=== PATIENT | female | born 1965 | race Caucasian/White ===

== ENCOUNTER 2016-11-27 12:07 | Inpatient (IN) | payer OTHER ==
[~2016-11-27] VITALS: Ht 170.2 cm; Wt 61.0 kg
[2016-11-27] VITALS (27 sets, daily range): BP systolic 101–189; BP diastolic 65–100; PULSE 68–100; TEMP 37.1–37.3; O2SAT 95–99; Ht 170.2 cm; Wt 61.0 kg
[~2016-11-27 12:07] MED LIST: ACET-1256 PO; ASPEC81 PO; LSN5 PO; VRPSR180 PO
[2016-11-27] MEDS ORDERED: MULT-506 PO (15:25)
[2016-11-27] MEDS ORDERED: DEXTROSE 50% 50 ML SYR IV PRN (15:30)
[2016-11-27] MEDS ORDERED: GLUCOSE 10 TABS/TUBE PO PRN (15:30)
[2016-11-27] MEDS ORDERED: GLUCAGON FOR INJ 1 MG VIAL SQ PRN (15:30)
[2016-11-27] MEDS ORDERED: GLUCOSE 40% GEL 15 GM TUBE PO PRN (15:30)
[2016-11-27] MEDS ORDERED: ACETAMINOPHEN 325 MG TAB PO PRN (15:30)
[2016-11-27] MEDS ORDERED: NiCARDipine IV 25 MG in SODIUM CHLORIDE 0.9% 250ML 240 ML IV PRN (15:30)
[2016-11-27] MEDS ORDERED: LORAZEPAM 0.5 MG TAB PO PRN (15:30)
[2016-11-27] MEDS ORDERED: ONDANSETRON INJ 2 MG/ML 2 ML VIAL IV PRN (15:30)
--- NOTE | 2016-11-27 15:52 | DIAGNOSTIC IMAGING REPORT ---
SINGLE VIEW CHEST CLINICAL HISTORY: Hypertension. FINDINGS: An AP, portable, upright chest radiograph is compared to study dated 06/16/2014. The examination is degraded by portable technique, apical lordotic positioning, and patient rotation. The heart is top normal for projection and there is atherosclerotic calcification of the thoracic aorta. Emphysema and chronic interstitial thickening is similar to previous. No airspace consolidation, large pleural effusion, or pneumothorax is seen. There are healed right-sided rib fractures. IMPRESSION: Emphysema with no acute cardiopulmonary abnormality. Electronically signed by: Armin Sylvester M.D. 11/27/2016 3:50 PM Dictated Date/Time: 11/27/2016 3:49 PM
[2016-11-27 16:04] LABS: BASO % 0.2 %; BASO ABS # 0.03 K/uL (0-0.2); COMPLETE YES; EOS % 0.1 %; HEMATOCRIT 41.9 % (37-47); IG% 0.2 %; LYMPH % 14.9 %; LYMPH ABS # 2.03 K/uL (1.2-3.4); MEAN CELL VOLUME 91.5 fL (80-100); MEAN CORPUSCULAR HEMOGLOBIN 32.3 pg (25-34); MEAN CORPUSCULAR HGB CONC 35.3 g/dl (32-36); MEAN PLATELET VOLUME 9.6 fL (7.4-10.4); MONO % 6.2 %; NEUT % 78.4 %; PLATELET COUNT 403 K/uL (130-400); RED BLOOD COUNT 4.58 M/uL (4.2-5.4); WHITE BLOOD COUNT 13.65 K/uL (4.8-10.8)
--- NOTE | 2016-11-27 16:04 | History and Physical ---
History & Physical Date & Time of Service: Nov 27, 2016 at 16:00 Chief Complaint: Hypertension Emergency Primary Care Physician: No Doctor, Assigned History of Present Illness Source: patient, spouse 51 y/o F who was transferred here from [place] for malignant HTN requiring a nicardipine drip. Pt states she has been ill over the last week with epigastric pain, n/v. She has not been able to keep anything down. She states she has been taking her HTN medication, however she is not certain if she was keeping that down or not. "I didn't really pay attention." Her pain is epigastric and had been better s/p IVF and medications at [place], however was starting to return during our discussion. Nausea is stable. Pt states she has not been ill like this prior. is present and states that at no time was pt confused, with garbled speech, or inability to move extremities. Pt denies also. Pt was given several doses of labetalol and hydralazine at [place], but her BP was unable to be managed with these medications. She was then started on a nicardipine drip. Nursing reports that pt's drip finished and during the short interval that no medication was being given, her BP started to increase rapidly. Pt denies fever, SOB, chest pain, c/d, LE pain or swelling. ROS as noted above, otherwise neg. Past Medical/Surgical History Medical Problems: (1) Atherosclerosis Nos Status: Chronic (2) Hypertension Nos Status: Chronic (3) Multiple Sclerosis Status: Chronic Uncertain MS dx: pt states she was told this by a neurologist, but recently changed insurance and is awaiting a second opinion. Family History Family history was reviewed; no changes noted. Social History Smoking Status: Never Smoker Alcohol Use: occasionally (once a month) Drug Use: marijuana Marital Status: Occupational Status: employed Immunizations History of Influenza Vaccine: Unknown History of Tetanus Vaccine?: Unknown History of Pneumococcal: Unknown History of Hepatitis B Vaccine: Unknown Allergies Coded Allergies: Iodinated Contrast Media (Verified Allergy, Severe, Unknown rxn, 06/16/14) Doxycycline (Verified Allergy, Unknown, rash, 06/16/14) Latex1 -Allergic Contact Dermititis (Verified Allergy, Unknown, RASH, 11/27) Meperidine (Verified Allergy, Unknown, HIVES, VOMITING, 06/16/14) Prochlorperazine (Verified Allergy, Unknown, ., 06/16/14) Home Medications Scheduled Acetaminophen (Tylenol), 1,000 MG PO PRN Multivitamin (Multivitamin), 1 TAB PO DAILY Verapamil HCl (Verapamil HCl ER), 180 MG PO QAM Physical Exam Vital Signs Date Time Temp Pulse Resp B/P Pulse Ox O2 Delivery O2 Flow Rate FiO2 11/27/16 14:38 37.1 90 98 165/98 99 Room Air General Appearance: WD/WN, + mild distress (appears uncomfortable) Head: normocephalic, atraumatic Respiratory/Chest: normal breath sounds, no respiratory distress Cardiovascular: regular rate, rhythm, no edema Abdomen/GI: soft, + tenderness (epigastric) Extremities/Musculoskelatal: no calf tenderness, no pedal edema Neurologic/Psych: alert, oriented x 3 Skin: normal color, warm/dry Diagnostics Laboratory Results Results Past 24 Hours Test 11/27/16 15:53 Range/Units Microbiology Results 11/27/16 MRSA DNA Surveillance Screen, Received Pending Diagnostic Radiology CXR: emphysema Impression Assessment and Plan 51 y/o F who was transferred from [place] on 11/27 for malignant HTN requiring nicardipine drip. Malignant HTN: Uncertain etiology, possibly related to missing regular meds with GI illness Labs reported as WNL at OSH t/c catecholamine derived etiologies [employer] managing nicardipine drip N/V/epigastric pain: Uncertain etiology Acute GE vs pancreatitis vs marijuana withdrawal syndrome CT AP neg Lactate and other labs WNL Other: Full code Lovenox for DVT proph AHA diet Level of Care Critical Care Advanced Directives Existing Living Will: No Existing Power of Supervisor Sulfuric Acid Plant: No VTE Prophylaxis VTE Risk Assessment Done? Y/N: Yes Risk Level: Low
[2016-11-27 16:13] LABS: INR 0.9 (0.9-1.1)
--- NOTE | 2016-11-27 16:15 | Critical Care Consultation ---
Critical Care Consultation Date of Consultation: Nov 27, 2016. Attending Physician: Khang Cross MD, PhD Reason for Consultation: Malignant hypertension History of Present Illness Patient is a pleasant 51-year-old female who presents in transfer from [facility] emergency department for malignant hypertension. History from prior records indicate that she's had 7 days of nausea vomiting and epigastric pain, unable to keep fluids down, pain 10 out of 10 with emesis and 5 out of 10 during the rest of the time. She denies diarrhea melena or hematemesis. She is hypertensive at baseline taking 180 mg of extended release amlodipine. She may not have been able to keep her amlodipine down with the vomiting. She occasionally smokes marijuana denies tobacco use, occasional alcohol use none the last 7 days, has a reported history of multiple sclerosis she was under the care of a neurologist recently changed care, she does not believe that she does carry the diagnosis of multiple sclerosis in the emergency department her blood pressure was noted to be elevated documentation supports to 33/119. She was given multiple doses of labetalol, a dose of hydralazine, and then started on a nicardipine drip after consultation with myself. Her blood pressures have remained around 160 systolic while on the 3 mg of nicardipine. During my history she denies any chest pain shortness of breath, mild epigastric discomfort worse with vomiting, no swelling, no diaphoresis. Outside records a comprehensive metabolic panel was obtained abnormalities included glucose of 123 BUN mildly elevated at 21 rest of the values were otherwise negative, lactic acid 2.3, lipase normal, complete blood counts: Unremarkable with the exception of a platelet level of 383, slightly outer range with their high being 380. Urinalysis: 2+ blood 4-6 RBCs per high-power field CT report of a CT abdomen and pelvis without contrast revealed no acute process , colonic diverticulosis without evidence of diverticulitis. EKG from the outside facility demonstrates a normal sinus rhythm rate of 77 normal axis mildly prolonged QTC at 456 , , compared to EKG dated 06/16/2014, QTC on this EKG was 469. Prior medical [facility] records reveal an echo obtained 06/17/2014: Normal left ventricular systolic function normal wall thickness. Past Medical/Surgical History please see above Family History Cancer Diabetes mellitus Heart disease Hypertension Lung disease Social History Smoking Status: Current Some Day Smoker Smokeless Tobacco Use: No Alcohol Use: socially Drug Use: marijuana Marital Status: Housing Status: lives with family Occupation Status: employed Allergies Coded Allergies: Iodinated Contrast Media (Verified Allergy, Severe, Unknown rxn, 06/16/14) Doxycycline (Verified Allergy, Unknown, rash, 06/16/14) Latex1 -Allergic Contact Dermititis (Verified Allergy, Unknown, RASH, 11/27) Meperidine (Verified Allergy, Unknown, HIVES, VOMITING, 06/16/14) Prochlorperazine (Verified Allergy, Unknown, ., 06/16/14) [place] (Verified Allergy, Unknown, HIVES, 11/27/16) Tomato (Verified Allergy, Unknown, HIVES, 11/27/16) Uncoded Allergies: [place] Beans (Allergy, Unknown, HIVES, 11/27/16) Home Medications Scheduled Acetaminophen (Tylenol), 1,000 MG PO PRN Multivitamin (Multivitamin), 1 TAB PO DAILY Verapamil HCl (Verapamil HCl ER), 180 MG PO QAM Current Inpatient Medications Amlodipine 180 mg sustained release daily Review of Systems A 10 point review of systems has been obtained and is otherwise negative Constitutional: No chills, No fever, No sweats Eyes: No eye pain, No worsening of vision ENT: No unusual epistaxis Respiratory: No cough, No sputum, No wheezing Cardiovascular: No PND, No chest pain, No edema, No orthopnea Abdomen: + nausea, + vomiting, No GI bleeding, No constipation, No diarrhea, No pain Musculoskeletal: No joint pain Genitourinary - Female: No dysuria, No urinary urgency Neurologic: No balance problems, No memory loss, No numbness/tingling, No paralysis, No problem reported, No vertigo, No weakness Endocrine: No excessive thirst, No excessive urination, No fatigue, No problem reported Integumentary: No bleeding, No color change, No itch, No new/changing skin lesions, No problem reported, No rash Physical Exam Date Time Temp Pulse Resp B/P Pulse Ox O2 Delivery O2 Flow Rate FiO2 11/27/16 14:38 37.1 90 98 165/98 99 Room Air General Appearance: well-appearing, uncomfortable Head: normocephalic, atraumatic Eyes: PERRLA, no discharge Neck: normal range of motion, no tenderness, trachea midline Respiratory: breath sounds normal, clear to auscultation, clear to percussion, no respiratory distress, accessory muscle use Cardiovasular: regular rate/rhythm, normal S1S2, no M/G/R, no murmur, no gallop , no rub, no JVD, normal peripheral pulses Abdomen: normal bowel sounds, no rebound, no masses, no guarding, no organomegaly, epigastric TTP Upper Extremities: no edema Lower Extremities: no edema Neuro: alert, oriented x 3, normal motor exam, normal sensation Psychiatric: normal affect Laboratory Results Last 24 Hours Test 11/27/16 15:16 Last 24 Hours Test 11/27/16 15:53 White Blood Count 13.65 K/uL Red Blood Count 4.58 M/uL Hemoglobin 14.8 g/dL Hematocrit 41.9 % Mean Corpuscular Volume 91.5 fL Mean Corpuscular Hemoglobin 32.3 pg Mean Corpuscular Hemoglobin Concent 35.3 g/dl Platelet Count 403 K/uL Mean Platelet Volume 9.6 fL Neutrophils (%) (Auto) 78.4 % Lymphocytes (%) (Auto) 14.9 % Monocytes (%) (Auto) 6.2 % Eosinophils (%) (Auto) 0.1 % Basophils (%) (Auto) 0.2 % Neutrophils # (Auto) 10.71 K/uL Lymphocytes # (Auto) 2.03 K/uL Monocytes # (Auto) 0.84 K/uL Eosinophils # (Auto) 0.01 K/uL Basophils # (Auto) 0.03 K/uL RDW Standard Deviation 40.9 fL RDW Coefficient of Variation 12.1 % Immature Granulocyte % (Auto) 0.2 % Immature Granulocyte # (Auto) 0.03 K/uL Prothrombin Time 10.0 SECONDS Prothromb Time International Ratio 0.9 Activated Partial Thromboplast Time 25.0 SECONDS Partial Thromboplastin Ratio 1.0 Sodium Level 134 mmol/L Potassium Level 3.2 mmol/L Chloride Level 98 mmol/L Carbon Dioxide Level 28 mmol/L Anion Gap 8.0 mmol/L Blood Urea Nitrogen 11 mg/dl Creatinine 0.63 mg/dl Est Creatinine Clear Calc Drug Dose 102.7 ml/min Estimated GFR () 121.2 Estimated GFR (Non- 104.6 BUN/Creatinine Ratio 17.6 Random Glucose 118 mg/dl Lactic Acid Level 1.5 mmol/L Calcium Level 8.8 mg/dl Phosphorus Level 2.9 mg/dl Magnesium Level 1.7 mg/dl Total Bilirubin 0.3 mg/dl Direct Bilirubin < 0.1 mg/dl Aspartate Amino Transf (AST/SGOT) 13 U/L Alanine Aminotransferase (ALT/SGPT) 20 U/L Alkaline Phosphatase 66 U/L Troponin I 0.105 ng/ml Total Protein 7.9 gm/dl Albumin 4.0 gm/dl Globulin 3.9 gm/dl Albumin/Globulin Ratio 1.0 Lipase 150 U/L Assessment & Plan (1) Elevated troponin I level (2) Hypokalemia (3) Prolonged QT interval (4) Malignant essential hypertension Reason Critically Ill: Hypertensive emergency, elevated troponin PLAN: Neuro:Percocet as needed for abdominal pain Resp:tolerating room air CV:Hypertensive crisis - nicardipine gtt - formal echo - EKG non-ischemic, suspect trops from myocardial strain Fluids/Renal: Tolerating diet ID:monitor fever course GI/Nutrition:clears as tolerated Heme:Lovenox prophylaxis Endocrine: check A1c I have personally spent 45 minutes of critical care time in the direct management of this patient. This is a life/limb threatening event. This includes time spent evaluating patient, direct bedside care, chart review, placing orders, interpretation of diagnostic studies, discussion with consultants, patient, and family members, as well as other required patient management activities. This time is exclusive of all separately billable procedures, and teaching time and separate from and in addition to any other critical care service time.
[2016-11-27 16:28] LABS: ALT/SGPT 20 U/L (12-78); AST/SGOT 13 U/L (15-37); BLOOD UREA NITROGEN 11 mg/dl (7-18); BUN/CREATININE RATIO 17.6 (10-20); CALCIUM 8.8 mg/dl (8.5-10.1); CARBON DIOXIDE 28 mmol/L (21-32); CHLORIDE 98 mmol/L (98-107); CREATININE 0.63 mg/dl (0.60-1.20); GLUCOSE 118 mg/dl (70-99); MAGNESIUM 1.7 mg/dl (1.8-2.4); POTASSIUM 3.2 mmol/L (3.5-5.1); SODIUM 134 mmol/L (136-145)
[2016-11-27] MEDS: INSULIN ASPART 100 UNITS/ML 3 ML PEN SC SCH ×2 (16:30→20:39)
[2016-11-27 16:34] LABS: ALKALINE PHOSPHATASE 66 U/L (45-117); PHOSPHORUS 2.9 mg/dl (2.5-4.9)
[2016-11-27] MEDS ORDERED: NURSING VERBAL MED ORDER ONE (19:15)
[2016-11-27] MEDS ORDERED: POTASSIUM CHLORIDE 20 MEQ TABCR PO ONE (19:15)
[2016-11-27] MEDS: MAGNESIUM SULFATE 1GM / D5W 1 GM in PREMIXED IN D5W 100 ML IV SCH ×2 (19:40→20:39)
[2016-11-27] MEDS: ENOXAPARIN 40 MG/0.4 ML SYR SQ SCH (20:39)
[2016-11-28] VITALS (28 sets, daily range): BP systolic 115–178; BP diastolic 64–105; PULSE 61–96; TEMP 36.8–37.3; O2SAT 94–99
[2016-11-28] MEDS ORDERED: ALUMINUM/MAGNESIUM SUSP 30 ML UDC ONE (01:33)
[2016-11-28] MEDS ORDERED: NURSING VERBAL MED ORDER ONE (01:45)
[2016-11-28] MEDS: INSULIN ASPART 100 UNITS/ML 3 ML PEN SC SCH ×2 (06:45→11:53)
[2016-11-28 07:45] LABS: BASO % 0.2 %; BASO ABS # 0.03 K/uL (0-0.2); COMPLETE YES; EOS % 0.6 %; HEMATOCRIT 39.3 % (37-47); IG% 0.2 %; LYMPH % 20.8 %; LYMPH ABS # 2.56 K/uL (1.2-3.4); MEAN CELL VOLUME 92.5 fL (80-100); MEAN CORPUSCULAR HEMOGLOBIN 31.8 pg (25-34); MEAN CORPUSCULAR HGB CONC 34.4 g/dl (32-36); MEAN PLATELET VOLUME 9.6 fL (7.4-10.4); MONO % 7.5 %; NEUT % 70.7 %; PLATELET COUNT 409 K/uL (130-400); RED BLOOD COUNT 4.25 M/uL (4.2-5.4); WHITE BLOOD COUNT 12.31 K/uL (4.8-10.8)
[2016-11-28 08:11] LABS: ESTIMATED AVERAGE GLUCOSE 111 mg/dl; HA1C FLAG Normal (Normal)
[2016-11-28 08:15] LABS: CREATININE 0.84 mg/dl (0.60-1.20); MAGNESIUM 2.2 mg/dl (1.8-2.4); POTASSIUM 3.6 mmol/L (3.5-5.1)
[2016-11-28] MEDS: VERAPAMIL HCL 180 MG TABCR PO SCH (08:18)
[2016-11-28 08:24] LABS: PHOSPHORUS 2.2 mg/dl (2.5-4.9)
[2016-11-28 08:36] LABS: CALCIUM 9.4 mg/dl (8.5-10.1)
--- NOTE | 2016-11-28 09:20 | Critical Care Progress Note ---
Critical Care Progress Note Date of Service Nov 28, 2016. Attending Subjective Blood pressures down. No chest pain reported. No respiratory distress. No GI/ complaints. Appears comfortable. Taking PO and ambulating. Current SOFA Score SOFA Score Response (Comments) Value Platelets (x10) < 150 1 Cara Coma Score 13 - 14 1 Level of Hypotension No Hypotension 0 Total 2 Assessment & Plan (1) Elevated troponin I level Will track the curve. Cardiology input in progress. (2) Hypokalemia (3) Prolonged QT interval (4) Malignant essential hypertension Doing well with B/P's. Rx acceptable. Can be treated in the telemetry unit now. Consults & Procedures Consultants: Mario Procedures: none Data Medications: Current Inpatient Medications Medications (Trade) Dose Ordered Sig/Yeimy Route Start Time Stop Time Status Last Admin Dose Admin Enoxaparin Sodium (Lovenox Inj) 40 mg Q24H SQ 11/27/16 21:00 12/27/16 20:59 11/27/16 20:39 40 MG Acetaminophen (Tylenol Tab) 650 mg Q4H PRN PO 11/27/16 15:30 12/27/16 15:29 Lorazepam (Ativan Tab) 0.5 mg Q4H PRN PO 11/27/16 15:30 12/27/16 15:29 Insulin Aspart (novoLOG ASPART) SLIDING SCALE If C... ACHS SC 11/27/16 16:00 12/27/16 15:59 Glucose (Glucose 40% Gel) 15-30 GRAMS 15 GRAMS... UD PRN PO 11/27/16 15:30 12/27/16 15:29 Glucose (Glucose Chew Tab) 4-8 Tablets 4 Tabl... UD PRN PO 11/27/16 15:30 12/27/16 15:29 Dextrose (Dextrose 50% 50ML Syringe) 25-50ML OF 50% DW IV FOR... UD PRN IV 11/27/16 15:30 12/27/16 15:29 Glucagon 1 mg 1 mg UD PRN SQ 11/27/16 15:30 12/27/16 15:29 Nicardipine HCl/ Sodium Chloride (Cardene Iv/Nss 250ml) 250 ml @ 0 mls/hr Q0M PRN IV 11/27/16 15:30 12/27/16 15:29 11/27/16 16:30 30 MLS/HR Verapamil HCl (Calan-Sr Tab) 180 mg QAM PO 11/28/16 09:00 12/28/16 08:59 11/28/16 08:18 180 MG I & O: 24-Hour Column 11/28/16 08:00 Intake Total 1903 ml Output Total 2650 ml Balance -747 ml Vital Signs: Date Time Temp Pulse Resp B/P Pulse Ox O2 Delivery O2 Flow Rate FiO2 11/28/16 06:31 79 13 115/66 97 11/28/16 06:00 84 17 125/82 97 11/28/16 05:30 76 12 141/87 98 11/28/16 05:01 85 17 166/86 98 11/28/16 04:30 81 19 129/79 97 11/28/16 04:00 78 18 118/73 96 11/28/16 04:00 37.1 11/28/16 04:00 96 Room Air 11/28/16 03:30 76 17 131/72 96 11/28/16 03:00 84 19 123/64 96 11/28/16 02:36 96 16 122/75 97 11/28/16 02:00 88 18 159/83 95 11/28/16 01:30 85 18 174/87 95 11/28/16 01:30 85 18 174/87 95 11/28/16 01:15 88 16 98 11/28/16 01:12 95 15 160/104 99 11/28/16 01:00 82 19 174/94 96 11/28/16 00:45 95 16 98 11/28/16 00:43 84 14 177/105 95 11/28/16 00:30 86 16 178/103 94 11/28/16 00:30 86 16 178/103 94 11/28/16 00:01 37.1 11/28/16 00:00 88 17 171/101 97 11/27/16 23:59 96 Room Air 11/27/16 23:44 77 18 163/78 97 11/27/16 23:31 72 16 189/97 98 11/27/16 23:00 68 20 122/81 95 11/27/16 22:30 71 12 116/69 98 11/27/16 22:01 73 16 124/74 97 11/27/16 21:30 81 17 118/73 97 11/27/16 21:00 77 13 117/79 97 11/27/16 20:30 73 15 117/73 97 11/27/16 20:00 98 Room Air 11/27/16 20:00 79 15 129/74 97 11/27/16 20:00 37.3 11/27/16 19:51 75 15 125/78 96 11/27/16 19:49 77 16 114/79 97 11/27/16 19:30 77 19 114/66 96 11/27/16 19:15 82 12 111/72 96 11/27/16 19:00 80 14 116/71 97 11/27/16 18:15 95 15 114/76 98 11/27/16 18:00 96 15 101/86 97 11/27/16 17:45 100 22 124/70 97 11/27/16 17:43 98 18 115/65 97 11/27/16 17:30 90 18 164/100 97 11/27/16 17:15 87 17 165/88 96 11/27/16 17:00 90 20 149/85 95 11/27/16 16:45 87 18 153/82 96 11/27/16 16:30 97 18 154/95 98 11/27/16 16:15 98 16 163/85 98 11/27/16 16:04 91 19 161/89 97 11/27/16 14:38 37.1 90 98 165/98 99 Room Air Laboratory Results: Last 24 Hours Test 11/27/16 15:53 11/27/16 20:32 11/27/16 22:55 11/28/16 01:34 White Blood Count 13.65 K/uL Red Blood Count 4.58 M/uL Hemoglobin 14.8 g/dL Hematocrit 41.9 % Mean Corpuscular Volume 91.5 fL Mean Corpuscular Hemoglobin 32.3 pg Mean Corpuscular Hemoglobin Concent 35.3 g/dl Platelet Count 403 K/uL Mean Platelet Volume 9.6 fL Neutrophils (%) (Auto) 78.4 % Lymphocytes (%) (Auto) 14.9 % Monocytes (%) (Auto) 6.2 % Eosinophils (%) (Auto) 0.1 % Basophils (%) (Auto) 0.2 % Neutrophils # (Auto) 10.71 K/uL Lymphocytes # (Auto) 2.03 K/uL Monocytes # (Auto) 0.84 K/uL Eosinophils # (Auto) 0.01 K/uL Basophils # (Auto) 0.03 K/uL RDW Standard Deviation 40.9 fL RDW Coefficient of Variation 12.1 % Immature Granulocyte % (Auto) 0.2 % Immature Granulocyte # (Auto) 0.03 K/uL Prothrombin Time 10.0 SECONDS Prothromb Time International Ratio 0.9 Activated Partial Thromboplast Time 25.0 SECONDS Partial Thromboplastin Ratio 1.0 Sodium Level 134 mmol/L Potassium Level 3.2 mmol/L Chloride Level 98 mmol/L Carbon Dioxide Level 28 mmol/L Anion Gap 8.0 mmol/L Blood Urea Nitrogen 11 mg/dl Creatinine 0.63 mg/dl Est Creatinine Clear Calc Drug Dose 102.7 ml/min Estimated GFR () 121.2 Estimated GFR (Non- 104.6 BUN/Creatinine Ratio 17.6 Random Glucose 118 mg/dl Lactic Acid Level 1.5 mmol/L Calcium Level 8.8 mg/dl Phosphorus Level 2.9 mg/dl Magnesium Level 1.7 mg/dl Total Bilirubin 0.3 mg/dl Direct Bilirubin < 0.1 mg/dl Aspartate Amino Transf (AST/SGOT) 13 U/L Alanine Aminotransferase (ALT/SGPT) 20 U/L Alkaline Phosphatase 66 U/L Troponin I 0.105 ng/ml 0.097 ng/ml 0.095 ng/ml Total Protein 7.9 gm/dl Albumin 4.0 gm/dl Globulin 3.9 gm/dl Albumin/Globulin Ratio 1.0 Lipase 150 U/L Bedside Glucose 125 mg/dl Test 11/28/16 06:28 11/28/16 07:35 11/28/16 08:54 Bedside Glucose 124 mg/dl White Blood Count 12.31 K/uL Red Blood Count 4.25 M/uL Hemoglobin 13.5 g/dL Hematocrit 39.3 % Mean Corpuscular Volume 92.5 fL Mean Corpuscular Hemoglobin 31.8 pg Mean Corpuscular Hemoglobin Concent 34.4 g/dl Platelet Count 409 K/uL Mean Platelet Volume 9.6 fL Neutrophils (%) (Auto) 70.7 % Lymphocytes (%) (Auto) 20.8 % Monocytes (%) (Auto) 7.5 % Eosinophils (%) (Auto) 0.6 % Basophils (%) (Auto) 0.2 % Neutrophils # (Auto) 8.71 K/uL Lymphocytes # (Auto) 2.56 K/uL Monocytes # (Auto) 0.92 K/uL Eosinophils # (Auto) 0.07 K/uL Basophils # (Auto) 0.03 K/uL RDW Standard Deviation 41.9 fL RDW Coefficient of Variation 12.3 % Immature Granulocyte % (Auto) 0.2 % Immature Granulocyte # (Auto) 0.02 K/uL Sodium Level 132 mmol/L Potassium Level 3.6 mmol/L Chloride Level 95 mmol/L Carbon Dioxide Level 27 mmol/L Anion Gap 10.0 mmol/L Blood Urea Nitrogen 10 mg/dl Creatinine 0.84 mg/dl Est Creatinine Clear Calc Drug Dose 75.4 ml/min Estimated GFR () 93.9 Estimated GFR (Non- 81.0 BUN/Creatinine Ratio 12.0 Random Glucose 136 mg/dl Estimated Average Glucose 111 mg/dl Hemoglobin A1c 5.5 % Calcium Level 9.4 mg/dl Phosphorus Level 2.2 mg/dl Magnesium Level 2.2 mg/dl Troponin I 0.094 ng/ml
--- NOTE | 2016-11-28 09:56 | ECHOCARDIOGRAM REPORT ---
*NOTICE TO RECEIVING [employer] This information is strictly Confidential and protected under [place] law. [place] law prohibits you from making any further disclosure of this information unless further disclosure is expressly permitted by the written consent of the person to whom it pertains or is authorized by law. A general authorization for the release of medical or other information is not sufficient for this purpose. Hospital accepts no responsibility if the information is made available to any other person, INCLUDING THE PATIENT. Interpretation Summary * Name: ONEL MONTOYA Study Date: 11/28/2016 06:32 AM BP: 115/66 mmHg * [id number] HR: 79 * : 1965 (M/d/yyyy) Gender: Female Height: 67 in * Age: 51 yrs Ethnicity: CA Weight: 134 lb * Ordering Physician: Philip Deleon * Referring Physician: No Doctor, Assigned * Performed By: Kailey Higuera RDCS * * Reason For Study: MALIGNANT HTN * BSA: 1.7 m2 * History: MALIGNANT HTN * -- Conclusions -- * 1. Normal LV size. Mild concentric LVH. * 2. Normal LV systolic function. LVEF 60-65%. No regional wall motion abnormalities. * 3. Normal RV size and function. * 4. No significant valvular pathology. * 5. Normal estimated CVP. * 6. Compared with prior study on 06/17/2014: No significant changes. Procedure Details * A complete two-dimensional transthoracic echocardiogram was performed (2D, M-mode, Doppler and color flow Doppler). Left Ventricle * The left ventricle is grossly normal size. * There is mild concentric left ventricular hypertrophy. * Ejection Fraction = 60-65%. * No regional wall motion abnormalities noted. Right Ventricle * The right ventricle is grossly normal size. * The right ventricular systolic function is normal as assessed by tricuspid annular plane systolic excursion (TAPSE) (normal >1.5 cm). Atria * The left atrial size is normal. * Right atrial size is normal. * No ASD detected; PFO is not assessed. Mitral Valve * The mitral valve is grossly normal. * There is no mitral valve stenosis. * Significant mitral regurgitation is absent. Tricuspid Valve * The tricuspid valve is not well visualized, but is grossly normal. * There is no tricuspid stenosis. * Significant tricuspid regurgitation is absent. Aortic Valve * The aortic valve opens well. * The aortic valve is trileaflet. * No hemodynamically significant valvular aortic stenosis. * There is no significant aortic regurgitation. Pulmonic Valve * The pulmonary valve is not well seen, but the Doppler examination is normal without significant regurgitation or stenosis. Great Vessels * The aortic root and proximal ascending aorta are normal sized. * No Doppler or imaging evidence of an aortic coarctation. Pericardium/Pleural * There is no pericardial effusion. Great Vessels * Normal inferior vena cava size and collapsability with sniff indicates a normal right atrial pressure of 3 mmHg MMode 2D Measurements and Calculations IVSd 1.2 cm IVSs 1.6 cm LVIDd 3.6 cm LVIDs 2.2 cm LVPWd 1.4 cm LVPWs 1.8 cm IVS/LVPW 0.84 FS 39.6 % EDV(Teich) 54.6 ml ESV(Teich) 15.7 ml EF(Teich) 71.2 % EDV(cubed) 46.8 ml ESV(cubed) 10.3 ml EF(cubed) 78.0 % % IVS thick 36.2 % % LVPW thick 28.6 % LV mass(C)d 153.5 grams LV mass(C)dI 90.0 grams/m\S\2 LV mass(C)s 131.5 grams LV mass(C)sI 77.1 grams/m\S\2 SV(Teich) 38.8 ml SI(Teich) 22.8 ml/m\S\2 SV(cubed) 36.5 ml SI(cubed) 21.4 ml/m\S\2 Ao root diam 2.9 cm Ao root area 6.5 cm\S\2 LA dimension 2.5 cm LA/Ao 0.88 LVAd ap4 21.4 cm\S\2 LVLd ap4 7.0 cm EDV(MOD-sp4) 54.3 ml EDV(sp4-el) 55.7 ml LVAs ap4 11.8 cm\S\2 LVLs ap4 5.9 cm ESV(MOD-sp4) 23.2 ml ESV(sp4-el) 20.1 ml EF(MOD-sp4) 57.3 % EF(sp4-el) 63.9 % LVAd ap2 25.3 cm\S\2 LVLd ap2 8.6 cm EDV(MOD-sp2) 65.2 ml EDV(sp2-el) 63.0 ml LVAs ap2 12.6 cm\S\2 LVLs ap2 7.0 cm ESV(MOD-sp2) 23.9 ml ESV(sp2-el) 19.3 ml EF(MOD-sp2) 63.4 % EF(sp2-el) 69.3 % LVLd %diff 18.8 % EDV(MOD-bp) 65.6 ml LVLs %diff 15.1 % ESV(MOD-bp) 25.4 ml EF(MOD-bp) 61.3 % SV(MOD-sp4) 31.1 ml SI(MOD-sp4) 18.3 ml/m\S\2 SV(MOD-sp2) 41.3 ml SI(MOD-sp2) 24.2 ml/m\S\2 SV(MOD-bp) 40.3 ml SI(MOD-bp) 23.6 ml/m\S\2 SV(sp4-el) 35.6 ml SI(sp4-el) 20.9 ml/m\S\2 SV(sp2-el) 43.7 ml SI(sp2-el) 25.6 ml/m\S\2 Doppler Measurements and Calculations MV E max ian 76.0 cm/sec MV A max ian 74.9 cm/sec MV E/A 1.0 MV dec time 0.32 sec Ao V2 max 176.2 cm/sec Ao max PG 12.4 mmHg Ao max PG (full) 6.3 mmHg LV V1 max PG 6.1 mmHg LV V1 max 123.9 cm/sec
--- NOTE | 2016-11-28 10:03 | Cardiology Consultation ---
Cardiology Consultation Date of Consultation: Nov 28, 2016. Requesting Physician: Dr. Cross Reason for Consultation: Epigastric discomfort, abnormal cardiac enzymes, hypertension Pt evaluation today including: conversation w/ patient, physical exam, lab review, review of studies, review of inpatient medication list History of Present Illness This is a very pleasant 51-year-old woman with a history of coronary artery disease identified at catheterization in June 2014. At that time she presented with chest tightness and throat choking, her cardiac enzymes were elevated to a troponin of just over 1 and she went to the catheterization lab where she was identified as having 30% mid right coronary artery stenosis as well as 30% proximal LAD stenosis, her left degree ejection fraction was normal. She has risk factors of a family history (with a sister who had what she reports as a myocardial infarction) as well as hypertension. Her visit this time is prompted by one week of nausea and vomiting associated with epigastric discomfort. She then presented with severe hypertension to [facility] with a blood pressure of 233 systolic. She was placed on a cart appearing drip and transferred here. Her cardiac enzymes have been somewhat abnormal in a decreasing pattern with a peak here of 0.105, which was her first, the most recent 0.095 early this morning. At the time of my evaluation she was feeling well, her blood pressure has been controlled and she is no longer having nausea and vomiting. She denies any exertional symptoms in the interim, she does not have difficulty with shortness of breath with exertion or anginal symptoms. Past Medical/Surgical History (1) Atherosclerosis Nos (2) Hypertension Nos (3) Multiple Sclerosis Family History Cancer Diabetes mellitus Heart disease Hypertension Lung disease Social History Smoking Status: Current Some Day Smoker History of Alcohol Use: Yes (on occasion ) Review of Systems Constitutional: No fever, No weakness, No weight loss Respiratory: No cough, No dyspnea on exertion, No shortness of breath, No wheezing Cardiac: + see HPI, No PND, No chest pain, No edema, No orthopnea, No palpitations Abdomen: + nausea, + pain (epigastric), + see HPI, + vomiting, No GI bleeding, No diarrhea Female : No problem reported Neurologic: No balance problems, No numbness/tingling, No paralysis, No weakness Heme: No abnormal bleeding/bruising, No clotting problems Endo: No fatigue Skin: No problem reported All Other Systems: Reviewed and Negative Allergies Coded Allergies: Iodinated Contrast Media (Verified Allergy, Severe, Unknown rxn, 06/16/14) Doxycycline (Verified Allergy, Unknown, rash, 06/16/14) Latex1 -Allergic Contact Dermititis (Verified Allergy, Unknown, RASH, 11/27) Meperidine (Verified Allergy, Unknown, HIVES, VOMITING, 06/16/14) Prochlorperazine (Verified Allergy, Unknown, ., 06/16/14) [place] (Verified Allergy, Unknown, HIVES, 11/27/16) Tomato (Verified Allergy, Unknown, HIVES, 11/27/16) Uncoded Allergies: Hernandez Beans (Allergy, Unknown, HIVES, 11/27/16) Medications Current Inpatient Medications Medications (Trade) Dose Ordered Sig/Yeimy Route Start Time Stop Time Status Last Admin Dose Admin Enoxaparin Sodium (Lovenox Inj) 40 mg Q24H SQ 11/27/16 21:00 12/27/16 20:59 11/27/16 20:39 40 MG Acetaminophen (Tylenol Tab) 650 mg Q4H PRN PO 11/27/16 15:30 12/27/16 15:29 Lorazepam (Ativan Tab) 0.5 mg Q4H PRN PO 11/27/16 15:30 12/27/16 15:29 Insulin Aspart (novoLOG ASPART) SLIDING SCALE If C... ACHS SC 11/27/16 16:00 12/27/16 15:59 Glucose (Glucose 40% Gel) 15-30 GRAMS 15 GRAMS... UD PRN PO 11/27/16 15:30 12/27/16 15:29 Glucose (Glucose Chew Tab) 4-8 Tablets 4 Tabl... UD PRN PO 11/27/16 15:30 12/27/16 15:29 Dextrose (Dextrose 50% 50ML Syringe) 25-50ML OF 50% DW IV FOR... UD PRN IV 11/27/16 15:30 12/27/16 15:29 Glucagon 1 mg 1 mg UD PRN SQ 11/27/16 15:30 12/27/16 15:29 Nicardipine HCl/ Sodium Chloride (Cardene Iv/Nss 250ml) 250 ml @ 0 mls/hr Q0M PRN IV 11/27/16 15:30 12/27/16 15:29 11/27/16 16:30 30 MLS/HR Verapamil HCl (Calan-Sr Tab) 180 mg QAM PO 11/28/16 09:00 12/28/16 08:59 11/28/16 08:18 180 MG Physical Exam Vital Signs Past 12 Hours Date Time Temp Pulse Resp B/P Pulse Ox O2 Delivery O2 Flow Rate FiO2 11/28/16 06:31 79 13 115/66 97 11/28/16 06:00 84 17 125/82 97 11/28/16 05:30 76 12 141/87 98 11/28/16 05:01 85 17 166/86 98 11/28/16 04:30 81 19 129/79 97 11/28/16 04:00 78 18 118/73 96 11/28/16 04:00 37.1 11/28/16 04:00 96 Room Air 11/28/16 03:30 76 17 131/72 96 11/28/16 03:00 84 19 123/64 96 11/28/16 02:36 96 16 122/75 97 11/28/16 02:00 88 18 159/83 95 11/28/16 01:30 85 18 174/87 95 11/28/16 01:30 85 18 174/87 95 11/28/16 01:15 88 16 98 11/28/16 01:12 95 15 160/104 99 11/28/16 01:00 82 19 174/94 96 11/28/16 00:45 95 16 98 11/28/16 00:43 84 14 177/105 95 11/28/16 00:30 86 16 178/103 94 11/28/16 00:30 86 16 178/103 94 11/28/16 00:01 37.1 11/28/16 00:00 88 17 171/101 97 11/27/16 23:59 96 Room Air 11/27/16 23:44 77 18 163/78 97 11/27/16 23:31 72 16 189/97 98 11/27/16 23:00 68 20 122/81 95 11/27/16 22:30 71 12 116/69 98 11/27/16 22:01 73 16 124/74 97 Constitutional: General Apperance: heathly-appearing Level of Distress: NAD Psychiatric: Mental Status: active & alert Head: normocephalic Eyes: EOM: EOMI ENMT: normal ENT inspection, hearing grossly normal Neck: supple, no masses Lungs: Respiratory effort: no dyspnea, good air movement Auscultation: breath sounds normal, no wheezing Cardiovascular: Heart Auscultation: RRR, no murmurs, no rubs, no gallops Peripheral Pulses: Bruits: none appreciated Abdomen: Bowel Sounds: normal Inspection & Palpation: soft, no tenderness, guarding & rebound, no masses Musculoskeletal: normal strength (5/5 throughout) Extremities: no edema Neurologic: Cranial Nerves: grossly intact Sensation: grossly intact Data Laboratory Results: Last 24 Hours Test 11/27/16 15:53 11/27/16 20:32 11/27/16 22:55 11/28/16 01:34 White Blood Count 13.65 K/uL Red Blood Count 4.58 M/uL Hemoglobin 14.8 g/dL Hematocrit 41.9 % Mean Corpuscular Volume 91.5 fL Mean Corpuscular Hemoglobin 32.3 pg Mean Corpuscular Hemoglobin Concent 35.3 g/dl Platelet Count 403 K/uL Mean Platelet Volume 9.6 fL Neutrophils (%) (Auto) 78.4 % Lymphocytes (%) (Auto) 14.9 % Monocytes (%) (Auto) 6.2 % Eosinophils (%) (Auto) 0.1 % Basophils (%) (Auto) 0.2 % Neutrophils # (Auto) 10.71 K/uL Lymphocytes # (Auto) 2.03 K/uL Monocytes # (Auto) 0.84 K/uL Eosinophils # (Auto) 0.01 K/uL Basophils # (Auto) 0.03 K/uL RDW Standard Deviation 40.9 fL RDW Coefficient of Variation 12.1 % Immature Granulocyte % (Auto) 0.2 % Immature Granulocyte # (Auto) 0.03 K/uL Prothrombin Time 10.0 SECONDS Prothromb Time International Ratio 0.9 Activated Partial Thromboplast Time 25.0 SECONDS Partial Thromboplastin Ratio 1.0 Sodium Level 134 mmol/L Potassium Level 3.2 mmol/L Chloride Level 98 mmol/L Carbon Dioxide Level 28 mmol/L Anion Gap 8.0 mmol/L Blood Urea Nitrogen 11 mg/dl Creatinine 0.63 mg/dl Est Creatinine Clear Calc Drug Dose 102.7 ml/min Estimated GFR () 121.2 Estimated GFR (Non- 104.6 BUN/Creatinine Ratio 17.6 Random Glucose 118 mg/dl Lactic Acid Level 1.5 mmol/L Calcium Level 8.8 mg/dl Phosphorus Level 2.9 mg/dl Magnesium Level 1.7 mg/dl Total Bilirubin 0.3 mg/dl Direct Bilirubin < 0.1 mg/dl Aspartate Amino Transf (AST/SGOT) 13 U/L Alanine Aminotransferase (ALT/SGPT) 20 U/L Alkaline Phosphatase 66 U/L Troponin I 0.105 ng/ml 0.097 ng/ml 0.095 ng/ml Total Protein 7.9 gm/dl Albumin 4.0 gm/dl Globulin 3.9 gm/dl Albumin/Globulin Ratio 1.0 Lipase 150 U/L Bedside Glucose 125 mg/dl Test 11/28/16 06:28 11/28/16 07:35 11/28/16 08:54 11/28/16 09:20 Bedside Glucose 124 mg/dl White Blood Count 12.31 K/uL Red Blood Count 4.25 M/uL Hemoglobin 13.5 g/dL Hematocrit 39.3 % Mean Corpuscular Volume 92.5 fL Mean Corpuscular Hemoglobin 31.8 pg Mean Corpuscular Hemoglobin Concent 34.4 g/dl Platelet Count 409 K/uL Mean Platelet Volume 9.6 fL Neutrophils (%) (Auto) 70.7 % Lymphocytes (%) (Auto) 20.8 % Monocytes (%) (Auto) 7.5 % Eosinophils (%) (Auto) 0.6 % Basophils (%) (Auto) 0.2 % Neutrophils # (Auto) 8.71 K/uL Lymphocytes # (Auto) 2.56 K/uL Monocytes # (Auto) 0.92 K/uL Eosinophils # (Auto) 0.07 K/uL Basophils # (Auto) 0.03 K/uL RDW Standard Deviation 41.9 fL RDW Coefficient of Variation 12.3 % Immature Granulocyte % (Auto) 0.2 % Immature Granulocyte # (Auto) 0.02 K/uL Sodium Level 132 mmol/L Potassium Level 3.6 mmol/L Chloride Level 95 mmol/L Carbon Dioxide Level 27 mmol/L Anion Gap 10.0 mmol/L Blood Urea Nitrogen 10 mg/dl Creatinine 0.84 mg/dl Est Creatinine Clear Calc Drug Dose 75.4 ml/min Estimated GFR () 93.9 Estimated GFR (Non- 81.0 BUN/Creatinine Ratio 12.0 Random Glucose 136 mg/dl Estimated Average Glucose 111 mg/dl Hemoglobin A1c 5.5 % Calcium Level 9.4 mg/dl Phosphorus Level 2.2 mg/dl Magnesium Level 2.2 mg/dl Troponin I 0.094 ng/ml Imaging: An echocardiogram today shows normal left ventricular function with no wall motion abnormalities. EKG: On arrival here she was in sinus rhythm with precordial T waves which are somewhat abnormal and a prolonged QT interval, possible inferior myocardial infarction of indeterminate age. A repeat electrocardiogram shows some improvement in her T waves with no change in the inferior Q waves. Telemetry reviewed: Sinus rhythm, no significant arrhythmia Assessment & Plan #1. Hypertension emergency: She had severe hypertension on arrival [place] and that has responded to medical therapy. Currently her blood pressure is well controlled. Knowledge she has not had this before. #2. Epigastric discomfort, nausea and vomiting: This is likely gastrointestinal , however the epigastric discomfort in association with borderline cardiac enzymes is worrisome. That has resolved but it is possible this is cardiac in origin. #3. Coronary disease: She has known coronary artery disease based on catheterization 2-1/2 years ago. She has not had testing since, the degree of progression is unknown, at that time she had noncritical disease. She does not have exertional symptoms. #4. Abnormal cardiac enzymes: Cardiac enzymes are in the descending pattern and are lower in magnitude than on her presentation June 2014. Her symptoms however started one week ago, this could all be due to demand ischemia from her severe hypertension or from an ischemic event a week ago. At this point I think we need to investigate, I'm reluctant to perform catheterization at this time. I think a stress test would be reasonable. Her blood pressure is controlled currently and it has been long enough since onset of her symptoms that should be safe to do. Thank you for allowing me to participate in her care.
--- NOTE | 2016-11-28 11:01 | Progress Note ---
Subjective Date of Service: Nov 28, 2016. Subjective Pt evaluation today including: conversation w/ patient, physical exam, chart review, lab review, review of studies, conversation w/ telesales consultant, review of inpatient medication list Report doing much better, blood pressure is controlled, home medicine of verapamil has started, Has been off drip off Cardene Report has been nausea vomiting but now resolved, reported significant possible heartburn, Was having the same episode of nausea vomiting, and not able to take blood pressure medicine needed hospital admission in [place] 2 years ago Review of Systems Constitutional: No chills, No fatigue, No fever, No problem reported, No sweats , No weakness, No weight loss Eyes: No diplopia, No discharge, No eye pain, No redness, No worsening of vision ENT: No dental problems, No hearing loss, No nasal symptoms, No sore throat, No tinnitus, No trouble swallowing, No unusual epistaxis Respiratory: No cough, No dyspnea at rest, No dyspnea on exertion, No hemoptysis, No shortness of breath, No sputum, No wheezing Cardiac: No PND, No chest pain, No claudication, No edema, No orthopnea, No palpitations Abdomen: + problem reported (heartburn), No constipation, No diarrhea, No nausea, No pain, No vomiting Musculoskeletal: No calf pain, No joint pain, No muscle pain, No swelling Female : No abnormal vaginal bleeding, No dysuria, No hematuria, No incontinence, No urinary frequency, No vaginal discharge Neurologic: No balance problems, No memory loss, No numbness/tingling, No paralysis, No vertigo, No weakness Psychiatric: No anhedonism, No anxiety, No depression symptoms, No insomnia, No substance abuse Heme: No abnormal bleeding/bruising, No clotting problems, No night sweats, No swollen lymph nodes Endo: No excessive thirst, No excessive urination, No fatigue Skin: No bleeding, No color change, No itch, No new/changing skin lesions, No rash Objective Vital Signs Date Time Temp Pulse Resp B/P Pulse Ox O2 Delivery O2 Flow Rate FiO2 11/28/16 06:31 79 13 115/66 97 11/28/16 06:00 84 17 125/82 97 11/28/16 05:30 76 12 141/87 98 11/28/16 05:01 85 17 166/86 98 11/28/16 04:30 81 19 129/79 97 11/28/16 04:00 78 18 118/73 96 11/28/16 04:00 37.1 11/28/16 04:00 96 Room Air 11/28/16 03:30 76 17 131/72 96 11/28/16 03:00 84 19 123/64 96 11/28/16 02:36 96 16 122/75 97 11/28/16 02:00 88 18 159/83 95 11/28/16 01:30 85 18 174/87 95 11/28/16 01:30 85 18 174/87 95 11/28/16 01:15 88 16 98 11/28/16 01:12 95 15 160/104 99 11/28/16 01:00 82 19 174/94 96 11/28/16 00:45 95 16 98 11/28/16 00:43 84 14 177/105 95 11/28/16 00:30 86 16 178/103 94 11/28/16 00:30 86 16 178/103 94 11/28/16 00:01 37.1 11/28/16 00:00 88 17 171/101 97 11/27/16 23:59 96 Room Air 11/27/16 23:44 77 18 163/78 97 11/27/16 23:31 72 16 189/97 98 11/27/16 23:00 68 20 122/81 95 11/27/16 22:30 71 12 116/69 98 11/27/16 22:01 73 16 124/74 97 11/27/16 21:30 81 17 118/73 97 11/27/16 21:00 77 13 117/79 97 11/27/16 20:30 73 15 117/73 97 11/27/16 20:00 98 Room Air 11/27/16 20:00 79 15 129/74 97 11/27/16 20:00 37.3 11/27/16 19:51 75 15 125/78 96 11/27/16 19:49 77 16 114/79 97 11/27/16 19:30 77 19 114/66 96 11/27/16 19:15 82 12 111/72 96 11/27/16 19:00 80 14 116/71 97 11/27/16 18:15 95 15 114/76 98 11/27/16 18:00 96 15 101/86 97 11/27/16 17:45 100 22 124/70 97 11/27/16 17:43 98 18 115/65 97 11/27/16 17:30 90 18 164/100 97 11/27/16 17:15 87 17 165/88 96 11/27/16 17:00 90 20 149/85 95 11/27/16 16:45 87 18 153/82 96 11/27/16 16:30 97 18 154/95 98 11/27/16 16:15 98 16 163/85 98 11/27/16 16:04 91 19 161/89 97 11/27/16 14:38 37.1 90 98 165/98 99 Room Air Physical Exam General Appearance: WD/WN, no apparent distress, + thin Eyes: normal inspection, PERRL, EOMI, sclerae normal ENT: normal ENT inspection, hearing grossly normal, pharynx normal Neck: supple, no adenopathy, thyroid normal, no JVD, no carotid bruits, trachea midline Respiratory/Chest: chest non-tender, lungs clear, normal breath sounds, no respiratory distress, no accessory muscle use Cardiovascular: regular rate, rhythm, no edema, no gallop, no JVD, no murmur Abdomen: normal bowel sounds, non tender, soft, no organomegaly, no pulsatile mass Extremities: normal range of motion, non-tender, normal inspection, no pedal edema, no calf tenderness, normal capillary refill, pelvis stable 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: weathercaster II-XII nml as tested, no motor/sensory deficits, alert, normal mood/affect, oriented x 3 Skin: normal color, warm/dry, no rash Lymphatic: no adenopathy Laboratory Results Last 24 Hours Test 11/27/16 15:53 11/27/16 20:32 11/27/16 22:55 11/28/16 01:34 White Blood Count 13.65 K/uL Red Blood Count 4.58 M/uL Hemoglobin 14.8 g/dL Hematocrit 41.9 % Mean Corpuscular Volume 91.5 fL Mean Corpuscular Hemoglobin 32.3 pg Mean Corpuscular Hemoglobin Concent 35.3 g/dl Platelet Count 403 K/uL Mean Platelet Volume 9.6 fL Neutrophils (%) (Auto) 78.4 % Lymphocytes (%) (Auto) 14.9 % Monocytes (%) (Auto) 6.2 % Eosinophils (%) (Auto) 0.1 % Basophils (%) (Auto) 0.2 % Neutrophils # (Auto) 10.71 K/uL Lymphocytes # (Auto) 2.03 K/uL Monocytes # (Auto) 0.84 K/uL Eosinophils # (Auto) 0.01 K/uL Basophils # (Auto) 0.03 K/uL RDW Standard Deviation 40.9 fL RDW Coefficient of Variation 12.1 % Immature Granulocyte % (Auto) 0.2 % Immature Granulocyte # (Auto) 0.03 K/uL Prothrombin Time 10.0 SECONDS Prothromb Time International Ratio 0.9 Activated Partial Thromboplast Time 25.0 SECONDS Partial Thromboplastin Ratio 1.0 Sodium Level 134 mmol/L Potassium Level 3.2 mmol/L Chloride Level 98 mmol/L Carbon Dioxide Level 28 mmol/L Anion Gap 8.0 mmol/L Blood Urea Nitrogen 11 mg/dl Creatinine 0.63 mg/dl Est Creatinine Clear Calc Drug Dose 102.7 ml/min Estimated GFR () 121.2 Estimated GFR (Non- 104.6 BUN/Creatinine Ratio 17.6 Random Glucose 118 mg/dl Lactic Acid Level 1.5 mmol/L Calcium Level 8.8 mg/dl Phosphorus Level 2.9 mg/dl Magnesium Level 1.7 mg/dl Total Bilirubin 0.3 mg/dl Direct Bilirubin < 0.1 mg/dl Aspartate Amino Transf (AST/SGOT) 13 U/L Alanine Aminotransferase (ALT/SGPT) 20 U/L Alkaline Phosphatase 66 U/L Troponin I 0.105 ng/ml 0.097 ng/ml 0.095 ng/ml Total Protein 7.9 gm/dl Albumin 4.0 gm/dl Globulin 3.9 gm/dl Albumin/Globulin Ratio 1.0 Lipase 150 U/L Bedside Glucose 125 mg/dl Test 11/28/16 06:28 11/28/16 07:35 11/28/16 09:20 11/28/16 10:45 Bedside Glucose 124 mg/dl White Blood Count 12.31 K/uL Red Blood Count 4.25 M/uL Hemoglobin 13.5 g/dL Hematocrit 39.3 % Mean Corpuscular Volume 92.5 fL Mean Corpuscular Hemoglobin 31.8 pg Mean Corpuscular Hemoglobin Concent 34.4 g/dl Platelet Count 409 K/uL Mean Platelet Volume 9.6 fL Neutrophils (%) (Auto) 70.7 % Lymphocytes (%) (Auto) 20.8 % Monocytes (%) (Auto) 7.5 % Eosinophils (%) (Auto) 0.6 % Basophils (%) (Auto) 0.2 % Neutrophils # (Auto) 8.71 K/uL Lymphocytes # (Auto) 2.56 K/uL Monocytes # (Auto) 0.92 K/uL Eosinophils # (Auto) 0.07 K/uL Basophils # (Auto) 0.03 K/uL RDW Standard Deviation 41.9 fL RDW Coefficient of Variation 12.3 % Immature Granulocyte % (Auto) 0.2 % Immature Granulocyte # (Auto) 0.02 K/uL Sodium Level 132 mmol/L Potassium Level 3.6 mmol/L Chloride Level 95 mmol/L Carbon Dioxide Level 27 mmol/L Anion Gap 10.0 mmol/L Blood Urea Nitrogen 10 mg/dl Creatinine 0.84 mg/dl Est Creatinine Clear Calc Drug Dose 75.4 ml/min Estimated GFR () 93.9 Estimated GFR (Non- 81.0 BUN/Creatinine Ratio 12.0 Random Glucose 136 mg/dl Estimated Average Glucose 111 mg/dl Hemoglobin A1c 5.5 % Calcium Level 9.4 mg/dl Phosphorus Level 2.2 mg/dl Magnesium Level 2.2 mg/dl 2.4 mg/dl Troponin I 0.094 ng/ml Assessment and Plan 51 y/o F who was transferred from [place] on 11/27 2016 for malignant HTN requiring nicardipine drip. Malignant HTN: Uncertain etiology, possibly related to missing regular meds with GI illness Labs reported as WNL at OSH Has ordered labs workup for the secondary hypertension and intractable hypertension Has ordered a renal artery ultrasound to rule out renal artery stenosis Has ordered a cortisol level, metanephrine, remaining, Aldactone levels t/c catecholamine derived etiologies Improved from Topographical Field Assistant managing nicardipine drip, is appreciated N/V/epigastric pain: Uncertain etiology, improve and resolve Acute GE vs pancreatitis vs marijuana withdrawal syndrome, patient denied illicit drug use CT AP neg Lactate and other labs WNL GI consult for further workup if needed such as EGD Minimal elevated troponin, with the epigastric pain, differential diagnosis include ACS, troponin elevation possible from severe hypertension which cause demanding ischemia However patient has history of Coronary disease: She has known coronary artery disease based on catheterization 2-1/2 years ago. 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 We' ll ordered a stress test Continue telemetry, cardiology consult, continue blood pressure control, no aspirin for now because patient have upper GI upset and possible has ulcerative gastric disease Increase activity, PT OT evaluation and treatment Request a medical record from [facility] for her previous admission in [facility] Other: Full code Lovenox for DVT proph AHA diet Continued [facility] stay due to: multiple IV medications needed Discharge planning: home
--- NOTE | 2016-11-28 11:51 | EXERCISE STRESS ECHO ---
*NOTICE TO RECEIVING [employer] This information is strictly Confidential and protected under [place] law. [place] law prohibits you from making any further disclosure of this information unless further disclosure is expressly permitted by the written consent of the person to whom it pertains or is authorized by law. A general authorization for the release of medical or other information is not sufficient for this purpose. Hospital accepts no responsibility if the information is made available to any other person, INCLUDING THE PATIENT. Interpretation Summary * Name: ONEL MONTOYA Study Date: 11/28/2016 10:44 AM BP: 138/75 mmHg * [facility] HR: 70 * : 1965 (M/d/yyyy) Gender: Female Height: 67 in * Age: 51 yrs Ethnicity: CA Weight: 131 lb * Ordering Physician: Marcelo Martin * Referring Physician: No Doctor, Assigned * Performed By: Kailey Higuera RDCS * * Reason For Study: CHEST PAIN, HTN * BSA: 1.7 m2 * -- Conclusions -- * Normal sub-maximal exercise echocardiogram without inducible ischemia at the workload acheived. * Hypertensive BP response to exercise. Procedure Details * ECHOEX, CPT #67985 Left Ventricular Findings with Stress * Normal sub-maximal exercise echocardiogram without inducible ischemia at the workload acheived. Hypertensive BP response to exercise. Stress Parameters * Normal baseline electrocardiogram. * Stress ECG: No ST changes. No arrhythmias. * Rest heart rate was '70' BPM. * Rest blood pressure was '138/75' * Maximum heart rate achieved was 137 bpm. * Maximum heart rate was 80 % of maximum age-predicted heart rate. * Maximum blood pressure was '204/80' * Total exercise time was '4:41' * Maximum exercise MET level achieved was '6.6' METS * Maximum treadmill speed was '2.5' miles per hour. * Maximum treadmill elevation was '12'% grade. Left Ventricular Findings with Stress * The study was diagnostic quality. * Submaximal exercise as patient only acheived 80% MPHR No symptoms reported. No significant EKG changes Normal baseline echocardiogram without inducible wall motion abnormalities Hypertensive BP response to exercise Millard treadmill score: 5 (low risk)
--- NOTE | 2016-11-28 15:06 | DIAGNOSTIC IMAGING REPORT ---
DUPLEX RENAL ARTERY ultrasound CLINICAL HISTORY: severe hypertension to rule out renal artery stenosis COMPARISON STUDY: None. FINDINGS: The right kidney measures 10.3 cm and the left kidney measures 11.6 cm. No hydronephrosis. The peak systolic velocity within the proximal right renal artery was 215 cm/s. The peak systolic velocity within the left renal artery was 128 cm/s distally. Bilateral renal veins are patent. Resistive indices within the bilateral renal arcuate arteries were less than 0.7. IMPRESSION: 1. Elevated peak systolic velocity within the proximal right renal artery consistent with hemodynamically significant stenosis. 2. No stenosis within the left renal artery. Electronically signed by: Sam Rodriguez M.D. 11/28/2016 3:05 PM Dictated Date/Time: 11/28/2016 3:02 PM
[2016-11-28] MEDS: ENOXAPARIN 40 MG/0.4 ML SYR SQ SCH (21:04)
--- NOTE | 2016-11-28 22:46 | GASTROINTESTINAL CONSULTATION ---
DATE OF CONSULTATION: 11/28/2016 CHIEF COMPLAINT: Nausea, vomiting. HISTORY OF PRESENT ILLNESS: Mrs. Velasquez is a 51-year-old white female who reports a prior history of ulceration, who presented upon transfer from [facility] yesterday for malignant hypertension. The patient reports that she began experiencing epigastric pain with nausea and vomiting, such that she was unable to keep her medications down. It is unclear if this was responsible for her marked elevation in her blood pressure. The patient's symptoms had essentially begun to resolve including her epigastric pain and nausea. However, this is a new pattern of discomfort as the patient described. The patient at [place] was given labetalol and hydralazine but blood pressure was not able to be managed and was transferred. The patient denies any prior history of odynophagia, dysphagia, nausea or vomiting. The details of her ulcer were unclear. PAST MEDICAL HISTORY: Significant for atherosclerosis, hypertension and multiple sclerosis. This is currently being addressed to confirm a mass. FAMILY HISTORY: There is no significant family history that is contributory. SOCIAL HISTORY: The patient denies tobacco or alcohol use of any appreciable amount. She does use marijuana. She is and employed. ALLERGIES: SHE IS ALLERGIC TO IV CONTRAST, DOXYCYCLINE, DEMEROL, PROCHLORPERAZINE AND LATEX. MEDICATIONS: At home include verapamil 180 mg daily, which was interrupted due to this recent onset of nausea, vomiting and multivitamins and Tylenol. REVIEW OF SYSTEMS: Otherwise noncontributory based on 14-point exam. The patient denies odynophagia, dysphagia, hematemesis, coffee-ground emesis, melena or bright red blood per rectum. PHYSICAL EXAMINATION: VITAL SIGNS: On admission on 11/27, temperature 37.1, blood pressure 165/98, heart rate 90, pulse ox 99% on room air. GENERAL: The patient is awake, alert and oriented x3, accompanied by her . The patient is resting comfortably in bed at the present time. HEENT: Sclerae are anicteric. Conjunctivae are moist. NECK: There is no cervical or supraclavicular adenopathy. I do not appreciate thyromegaly. HEART: Normal S1, S2. LUNGS: Clear to auscultation without rales, rhonchi or wheezes. ABDOMEN: Soft, flat, nontender at the present time without rebound or guarding. I do not appreciate hepatosplenomegaly. There is no evidence of abdominal bruits or masses. There is no shifting dullness. EXTREMITIES: Without clubbing, cyanosis or edema. RECTAL: Deferred at this time. LABORATORY STUDIES: On admission and again today show a mild elevation in white count of 13.6 and today 12.3. Hemoglobin is stable at 13.5 today and 409,000 platelets. Serum chemistries reveal glucose 109, magnesium 2.4, TSH is 0.66 with a random cortisol of 9.26. Laboratory show potassium of 3.6, sodium is slightly low at 132. BUN and creatinine are 10 and 0.8. Phosphorus is low at 2.2. Troponin levels are elevated at 0.094, was 0.1 on the admission lab here at 4:00 p.m. on November 27. Liver tests are normal. Bilirubin 0.3, direct less than 0.1. ALT 20, AST 13, alkaline phosphatase 66, lipase is normal at 150. Potassium was low on admission at 3.2 although this seems to have improved on today's labs. The patient had imaging studies today including renal ultrasound and chest x-ray yesterday. Renal ultrasound reveals an elevated peak systolic velocity in the proximal right renal artery, consistent with hemodynamically significant stenosis. There is no stenosis in the left renal artery. IMAGING DATA: Chest x-ray reveals emphysema without acute pulmonary disease. MEDICATIONS: Currently include verapamil, Lovenox subQ for DVT prophylaxis, Tylenol, Ativan and nicardipine. IMPRESSION: The patient with symptoms of nausea, vomiting and epigastric pain with poorly controlled hypertension that may in part have been related to inability to tolerate or keep down her medications. There is evidence of unilateral renal artery stenosis. Blood pressure is improved. On admission, there was cardiac enzyme leakage of uncertain etiology. I made the following recommendations. I would place the patient on PPI 40 mg Protonix daily and would anticipate performing an upper endoscopy tomorrow to exclude peptic ulcer disease, esophagitis or gastritis. The patient denies any chronic NSAID use or high dose aspirin. At the present time, the LFTs are normal, although if these epigastric symptoms return and if upper endoscopy is unrevealing, then evaluation of her gallbladder may be prudent. There has been no chronic weight loss in the patient's history. There is also no prior history of pancreatitis. We will tentatively plan for upper endoscopy tomorrow, provided that her cardiac status is stable and can tolerate sedation and upper endoscopy. We will ask the primary team and cardiology consultation to consider this diagnostic exam. Cardiology did recommend a stress test as she had a prior cardiac catheterization, although there is some concern, given the enzyme leak, this may have reflected demand ischemia from her severe hypertension. The patient does have a known history of coronary artery disease, although did not report this in her history to me, based on cardiac catheterization nearly 3 years ago. Therefore, we will tentatively place the patient on the schedule for tomorrow with Dr. Rodriguez, however, I would please ask that given the cardiology assessment and stress echo findings, that we have agreement to pursue upper endoscopy. All questions answered for the patient. Thank you for allowing me to participate in this patient's care.
[2016-11-29] VITALS: O2SAT 96
[2016-11-29 04:00] VITALS: BP 134/83; PULSE 62; TEMP 36.8; O2SAT 95; O2SAT 96
[2016-11-29 07:17] VITALS: BP 131/85; PULSE 72; TEMP 36.9; O2SAT 94
[2016-11-29 07:50] LABS: BASO % 0.6 %; BASO ABS # 0.05 K/uL (0-0.2); COMPLETE YES; EOS % 2.7 %; HEMATOCRIT 40.4 % (37-47); IG% 0.2 %; LYMPH % 41.1 %; MEAN CORPUSCULAR HEMOGLOBIN 31.9 pg (25-34); MEAN CORPUSCULAR HGB CONC 33.9 g/dl (32-36); MEAN PLATELET VOLUME 9.9 fL (7.4-10.4); MONO % 8.1 %; NEUT % 47.3 %; PLATELET COUNT 384 K/uL (130-400); WHITE BLOOD COUNT 8.76 K/uL (4.8-10.8)
--- NOTE | 2016-11-29 08:16 | CARDIOLOGY PROGRESS NOTE ---
DATE: 11/29/2016 DATE: 11/29/2016. SUBJECTIVE: This morning Mrs. Velasquez claims to be feeling well. She is quite hungry but does not report any chest pain, nausea, vomiting or abdominal discomfort. PHYSICAL EXAMINATION: GENERAL: She was alert and oriented, mood and affect appeared normal. CURRENT VITAL SIGNS: Include blood pressure of 131/85 with pulse of 72. LUNGS: Auscultation of her lung apices reveal them to be clear. CARDIAC EXAMINATION: Revealed her to be in a regular rhythm. I did not appreciate any murmurs on examination. EXTREMITIES: Evaluation of her lower extremities did not reveal any palpable distal pulses in the posterior tibial or dorsalis pedis distributions. LABORATORY STUDIES: Obtained today include a white cell count of 8.7, hemoglobin of 13.7 and a platelet count of 384. Sodium was still pending at the time of this dictation. ASSESSMENT AND PLAN: 1. Noncardiac chest pain. The patient underwent a stress echocardiography yesterday which did not reveal any evidence of inducible ischemia with a slightly supplemental normal heart rate. She did not have any symptoms of chest discomfort during the test, but she did have some calf cramping in the left calf. Given the test results and absence of continued symptoms at this point I would consider her low risk for any invasive procedure such as endoscopy and it would be safe to proceed without any additional precautions than good blood pressure control. 2. Elevated cardiac biomarkers likely related to her high blood pressure. She has a history of hypertension and evidence of mild concentric hypertrophy on echocardiography. She is on antihypertensives therapy and generally is quite compliant, but given her recent gastrointestinal symptoms and vomiting been able to keep her medications down. This likely accounts for elevated blood pressures at presentation currently well controlled. 3. Left calf cramping. This possibly is claudication although could simply be standard muscles cramp as well. She does not have palpable pulses in her distal extremities but generally speaking does not describe symptoms of claudication. At this point I do not feel she requires any additional testing in the absence of symptoms on an outpatient basis.
[2016-11-29 08:17] LABS: BUN/CREATININE RATIO 23.8 (10-20); CREATININE 0.69 mg/dl (0.60-1.20); POTASSIUM 3.6 mmol/L (3.5-5.1)
[2016-11-29 08:22] LABS: CHOLESTEROL/HDL RATIO 4.5
[2016-11-29 08:30] LABS: CALCIUM 9.7 mg/dl (8.5-10.1)
[2016-11-29] MEDS: VERAPAMIL HCL 180 MG TABCR PO SCH (10:07)
[2016-11-29 11:32] VITALS: BP 145/95; PULSE 71; TEMP 36.8; O2SAT 91
[2016-11-29 11:50] VITALS: BP 145/93; PULSE 75; TEMP 36.9; O2SAT 94
[2016-11-29] MEDS ORDERED: PROPOFOL IV EMULSION 10 MG/ML 20 ML VIAL IV ONE (12:20)
[2016-11-29] MEDS ORDERED: LIDOCAINE HCL 2% 2 ML VIAL (20MG/ML) ONE (12:20)
[2016-11-29] MEDS ORDERED: MIDAZOLAM HCL 1 MG/ML 2ML VIAL ONE (12:20)
[2016-11-29] MEDS ORDERED: ONDANSETRON INJ 2 MG/ML 2 ML VIAL ONE (12:21)
--- NOTE | 2016-11-29 12:48 | Endo History and Physical ---
History & Physical Date of Service: Nov 29, 2016. Chief Complaint: Nausea and vomiting Referring Physician: Dr Oliveros History of Present Illness For EGD Past Medical History High Cholesterol, Hypertension, Other Past Surgical History Hx Cardiac Surgery: No Hx Abdominal Surgery: Yes (Hernia Repain ) Hx Post-Op Nausea and Vomiting: No Hx Cancer Surgery: Yes Hx Thoracic Surgery: No Hx Orthopedic: No Hx Urinary Tract Surgery: Yes (Hysterectomy ) Social History Smoking Status: Current Some Day Smoker Smokeless Tobacco Use: No Hx Substance Use: Yes (pt verbalizes smoking "a little weed") Hx Alcohol Use: Yes (on occasion ) Allergies Coded Allergies: Iodinated Contrast Media (Verified Allergy, Severe, Unknown rxn, 06/16/14) Doxycycline (Verified Allergy, Unknown, rash, 06/16/14) Latex1 -Allergic Contact Dermititis (Verified Allergy, Unknown, RASH, 11/27) Meperidine (Verified Allergy, Unknown, HIVES, VOMITING, 06/16/14) Prochlorperazine (Verified Allergy, Unknown, ., 06/16/14) [place] (Verified Allergy, Unknown, HIVES, 11/27/16) Tomato (Verified Allergy, Unknown, HIVES, 11/27/16) Uncoded Allergies: Hernandez Beans (Allergy, Unknown, HIVES, 11/27/16) Current Medications Reported Home Medications Medications Dose Route/Sig Max Daily Dose Days Date Category Multivitamin (Multivitamins) Tab 1 Tab PO DAILY 11/27/16 Reported Verapamil HCl ER (Verapamil HCl) 180 Mg Tabcr 180 Mg PO QAM 06/17/14 Rx Tylenol (Acetaminophen) 500 Mg Tab 1,000 Mg PO PRN 06/13/10 Reported Vital Signs Weight (Kilograms): 61.000 Height (Feet): 5 Height (Inches): 7.00 Date Time Temp Pulse Resp B/P Pulse Ox O2 Delivery O2 Flow Rate FiO2 11/29/16 12:23 37 71 16 142/98 94 Room Air 11/29/16 11:50 36.9 75 18 145/93 94 Room Air 11/29/16 11:32 36.8 71 16 145/95 91 11/29/16 08:00 Room Air 11/29/16 07:17 36.9 72 16 131/85 94 Room Air 11/29/16 04:00 36.8 62 16 134/83 95 Room Air 11/29/16 04:00 96 Room Air 11/29/16 00:00 96 Room Air 11/28/16 23:54 36.8 61 16 127/81 97 Room Air 11/28/16 20:06 37.3 70 16 132/79 95 Room Air 11/28/16 20:00 Room Air 11/28/16 17:42 37.3 72 18 135/84 95 Room Air 11/28/16 16:26 37.0 78 17 96 11/28/16 16:16 37.0 78 17 136/80 96 Room Air 11/28/16 16:00 Room Air 11/28/16 14:24 74 22 139/83 97 Room Air Physical Exam General Appearance: + thin Respiratory/Chest: Respiratory effort: no dyspnea, good air movement Auscultation: breath sounds normal, no wheezing Cardiovascular: Heart Auscultation: RRR Abdomen: Inspection & Palpation: soft (N and V for EGD)
--- NOTE | 2016-11-29 12:55 | Discharge Instructions ---
Endoscopy Patient Instructions Date / Procedure(s) Performed Nov 29, 2016. EGD Allergy Information Coded Allergies: Iodinated Contrast Media (Verified Allergy, Severe, Unknown rxn, 06/16/14) Doxycycline (Verified Allergy, Unknown, rash, 06/16/14) Latex1 -Allergic Contact Dermititis (Verified Allergy, Unknown, RASH, 11/27) Meperidine (Verified Allergy, Unknown, HIVES, VOMITING, 06/16/14) Prochlorperazine (Verified Allergy, Unknown, ., 06/16/14) [place] (Verified Allergy, Unknown, HIVES, 11/27/16) Tomato (Verified Allergy, Unknown, HIVES, 11/27/16) Uncoded Allergies: Hernandez Beans (Allergy, Unknown, HIVES, 11/27/16) Discharge Date / Findings Nov 29, 2016. Pill impaction in distal esophagus Medication Instructions Restart Stopped Medication(s): resume meds Current Inpatient Medications Medications (Trade) Dose Ordered Sig/Yeimy Route Start Time Stop Time Status Last Admin Dose Admin Enoxaparin Sodium (Lovenox Inj) 40 mg Q24H SQ 11/27/16 21:00 12/27/16 20:59 11/28/16 21:04 40 MG Acetaminophen (Tylenol Tab) 650 mg Q4H PRN PO 11/27/16 15:30 12/27/16 15:29 Lorazepam (Ativan Tab) 0.5 mg Q4H PRN PO 11/27/16 15:30 12/27/16 15:29 11/29/16 09:52 0.5 MG Verapamil HCl (Calan-Sr Tab) 180 mg QAM PO 11/28/16 09:00 12/28/16 08:59 11/29/16 10:07 180 MG Provider Instructions Activity Restrictions - No exercising or heavy lifting for 24 hours. - Do not drink alcohol the day of the procedure. - Do not drive a car or operate machinery until the day after the procedure. - Do not make any important decisions or sign important papers in 24 hours after the procedure. Following Day: - Return to full activity which may include returning to work/school. Diet Start your diet with liquids and light foods (jello, soup, juice, toast). Then eat your usual diet if not nauseated. Treatment For Common After Affects For mild abdominal pain, bloating, or excessive gas: - Rest - Eat lightly - Lie on right side Follow-Up Information Follow-up with as scheduled Anesthesia Information What You Should Know You have had a procedure that required some medicine to reduce anxiety and discomfort. This treatment is called moderate sedation. After receiving the treatment, you may be sleepy, but you will be able to breathe on your own. The effects of the treatment may last for several hours. Follow these instructions along with Activity/Diet recommendations noted above: * Do NOT do anything where dizziness or clumsiness would be dangerous. * Rest quietly at home today, then you can be up and about tomorrow. * Have a responsible person stay with you the rest of today. * You may have had an I.V. today. If so, you may take the dressing off later today. Recommendations Call your doctor if: * Trouble breathing * Continuous vomiting for more than 24 hours * Temperature above 101 degrees * Severe abdominal pain or bloating * Pain not relieved by pain medicine ordered * There is increased drainage or redness from any incision * A large amount of rectal bleeding greater than 2-3 tablespoons. (If you had a polyp/s removed or have hemorrhoids, a small amount of blood - from the rectum is to be expected.) * You have any unanswered questions or concerns. IN THE EVENT OF A SERIOUS EMERGENCY, GO TO THE NEAREST EMERGENCY ROOM Your discharge instructions were prepared by provider Johny Rodriguez. Patient Instructions Signature Page Cyndie Velasquez Patient (or Guardian) Signature/Date: I have read and understand the instructions given to me by my caregivers. Caregiver/RN/Doctor Signature/Date: The above-named patient and/or guardian has received patient instructions on this date. + Original Patient Signature Page (only) stays with chart. Please make copy for patient.
--- NOTE | 2016-11-29 13:01 | GI REPORT ---
Procedure Date: 11/29/2016 12:48 PM Procedure: Upper GI endoscopy Indications: Nausea with vomiting Medicines: Midazolam 2 mg IV, Zofran 4 mg IV, Propofol total dose 130 mg IV, Lidocaine 60 mg IV Complications: No immediate complications. Estimated Blood Loss: Estimated blood loss: none. Procedure: Pre-Anesthesia Assessment: - Prior to the procedure, a History and Physical was performed, and patient medications, allergies and sensitivities were reviewed. The patient's tolerance of previous anesthesia was reviewed. - The risks and benefits of the procedure and the sedation options and risks were discussed with the patient. All questions were answered and informed consent was obtained. After obtaining informed consent, the endoscope was passed under direct vision. Throughout the procedure, the patient's blood pressure, pulse, and oxygen saturations were monitored continuously. The scope was introduced through the mouth, and advanced to the second part of duodenum. The upper GI endoscopy was accomplished without difficulty. The patient tolerated the procedure well. Findings: A pill was found in the lower third of the esophagus. Removal of the pill was accomplished by pushing it into the stomach. The Z-line was regular and was found 41 cm from the incisors. The entire examined stomach was normal. The examined duodenum was normal. Impression: - Food in the lower third of the esophagus. Removal was successful. - Z-line regular, 41 cm from the incisors. - Normal stomach. - Normal examined duodenum. Recommendation: - [facility]. Johny Rodriguez M.D. Johny Rodriguez MD 11/29/2016 12:59:54 PM This report has been signed electronically. Note Initiated On: 11/29/2016 12:48 PM I attest to the content of the Intraoperative Record and orders documented therein, exceptions below
[2016-11-29 13:14] VITALS: BP 122/80; PULSE 64; O2SAT 97
--- NOTE | 2016-11-29 13:21 | Progress Note ---
Subjective Date of Service: Nov 29, 2016. Subjective Pt evaluation today including: conversation w/ patient, conversation w/ family , physical exam, chart review, lab review, review of studies, conversation w/ alliances consultant, review of inpatient medication list Doing okay, ready for EGD, no complaint Review of Systems Constitutional: No chills, No fatigue, No fever, No problem reported, No sweats , No weakness, No weight loss Eyes: No diplopia, No discharge, No eye pain, No redness, No worsening of vision ENT: No dental problems, No hearing loss, No nasal symptoms, No sore throat, No tinnitus, No trouble swallowing, No unusual epistaxis Respiratory: No cough, No dyspnea at rest, No dyspnea on exertion, No hemoptysis, No shortness of breath, No sputum, No wheezing Cardiac: No PND, No chest pain, No claudication, No edema, No orthopnea, No palpitations Abdomen: No constipation, No diarrhea, No nausea, No pain, No vomiting Musculoskeletal: No calf pain, No joint pain, No muscle pain, No swelling Female : No abnormal vaginal bleeding, No dysuria, No hematuria, No incontinence, No urinary frequency, No vaginal discharge Neurologic: No balance problems, No memory loss, No numbness/tingling, No paralysis, No vertigo, No weakness Psychiatric: No anhedonism, No anxiety, No depression symptoms, No insomnia, No substance abuse Heme: No abnormal bleeding/bruising, No clotting problems, No night sweats, No swollen lymph nodes Endo: No excessive thirst, No excessive urination, No fatigue Skin: No bleeding, No color change, No itch, No new/changing skin lesions, No rash Objective Vital Signs Date Time Temp Pulse Resp B/P Pulse Ox O2 Delivery O2 Flow Rate FiO2 11/29/16 12:59 72 16 106/77 97 Room Air 11/29/16 12:23 37 71 16 142/98 94 Room Air 11/29/16 11:50 36.9 75 18 145/93 94 Room Air 11/29/16 11:32 36.8 71 16 145/95 91 11/29/16 08:00 Room Air 11/29/16 07:17 36.9 72 16 131/85 94 Room Air 11/29/16 04:00 36.8 62 16 134/83 95 Room Air 11/29/16 04:00 96 Room Air 11/29/16 00:00 96 Room Air 11/28/16 23:54 36.8 61 16 127/81 97 Room Air 11/28/16 20:06 37.3 70 16 132/79 95 Room Air 11/28/16 20:00 Room Air 11/28/16 17:42 37.3 72 18 135/84 95 Room Air 11/28/16 16:26 37.0 78 17 96 11/28/16 16:16 37.0 78 17 136/80 96 Room Air 11/28/16 16:00 Room Air 11/28/16 14:24 74 22 139/83 97 Room Air Physical Exam General Appearance: WD/WN, no apparent distress Eyes: normal inspection, PERRL, EOMI, sclerae normal ENT: normal ENT inspection, hearing grossly normal, pharynx normal Neck: supple, no adenopathy, thyroid normal, no JVD, no carotid bruits, trachea midline Respiratory/Chest: chest non-tender, lungs clear, normal breath sounds, no respiratory distress, no accessory muscle use Cardiovascular: regular rate, rhythm, no edema, no gallop, no JVD, no murmur Abdomen: normal bowel sounds, non tender, soft, no organomegaly, no pulsatile mass Extremities: normal range of motion, non-tender, normal inspection, no pedal edema, no calf tenderness, normal capillary refill, pelvis stable 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: 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 tested, no motor/sensory deficits, alert, normal mood/affect, oriented x 3 Skin: normal color, warm/dry, no rash Lymphatic: no adenopathy Laboratory Results Last 24 Hours Test 11/29/16 06:23 11/29/16 06:28 11/29/16 10:48 Sodium Level 137 mmol/L Potassium Level 3.6 mmol/L Chloride Level 99 mmol/L Carbon Dioxide Level 29 mmol/L Anion Gap 9.0 mmol/L Blood Urea Nitrogen 16 mg/dl Creatinine 0.69 mg/dl Est Creatinine Clear Calc Drug Dose 93.9 ml/min Estimated GFR () 117.6 Estimated GFR (Non- 101.5 BUN/Creatinine Ratio 23.8 Random Glucose 91 mg/dl Calcium Level 9.7 mg/dl Triglycerides Level 218 mg/dl Cholesterol Level 275 mg/dl HDL Cholesterol 61 mg/dl LDL Cholesterol, Calculated 170 mg/dl VLDL Cholesterol, Calculated 44 mg/dl Cholesterol/HDL Ratio 4.5 White Blood Count 8.76 K/uL Red Blood Count 4.30 M/uL Hemoglobin 13.7 g/dL Hematocrit 40.4 % Mean Corpuscular Volume 94.0 fL Mean Corpuscular Hemoglobin 31.9 pg Mean Corpuscular Hemoglobin Concent 33.9 g/dl Platelet Count 384 K/uL Mean Platelet Volume 9.9 fL Neutrophils (%) (Auto) 47.3 % Lymphocytes (%) (Auto) 41.1 % Monocytes (%) (Auto) 8.1 % Eosinophils (%) (Auto) 2.7 % Basophils (%) (Auto) 0.6 % Neutrophils # (Auto) 4.14 K/uL Lymphocytes # (Auto) 3.60 K/uL Monocytes # (Auto) 0.71 K/uL Eosinophils # (Auto) 0.24 K/uL Basophils # (Auto) 0.05 K/uL RDW Standard Deviation 43.0 fL RDW Coefficient of Variation 12.6 % Immature Granulocyte % (Auto) 0.2 % Immature Granulocyte # (Auto) 0.02 K/uL Assessment and Plan 51 y/o F who was transferred from [facility] on 11/27 2016 for malignant HTN requiring nicardipine drip. 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 No stenosis within the left renal artery. Consult Dr. Maynard, patient possible does not need a procedure for now, but will be benefit to follow-up with vascular surgeon N/V/epigastric pain: Uncertain etiology, improve and resolve, EGD done, will follow up results GI input appreciated Minimal elevated troponin, with the epigastric pain, differential diagnosis include ACS, troponin elevation possible from severe hypertension which cause demanding ischemia However patient has history of Coronary disease: She has known coronary artery disease based on catheterization 2-1/2 years ago. 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
--- NOTE | 2016-11-29 13:28 | Anesthesiology Progress Note ---
Anesthesia Post Op Note Date & Time Nov 29, 2016 at 13:27 Vital Signs Pain Intensity: 0.0 Vital Signs Past 12 Hours Date Time Temp Pulse Resp B/P Pulse Ox O2 Delivery O2 Flow Rate FiO2 11/29/16 13:14 64 16 122/80 97 Room Air 11/29/16 12:59 72 16 106/77 97 Room Air 11/29/16 12:23 37 71 16 142/98 94 Room Air 11/29/16 11:50 36.9 75 18 145/93 94 Room Air 11/29/16 11:32 36.8 71 16 145/95 91 11/29/16 08:00 Room Air 11/29/16 07:17 36.9 72 16 131/85 94 Room Air 11/29/16 04:00 36.8 62 16 134/83 95 Room Air 11/29/16 04:00 96 Room Air Notes Mental Status: alert / awake / arousable, participated in evaluation Pt Amnestic to Procedure: Yes Nausea / Vomiting: adequately controlled Pain: adequately controlled Airway Patency, RR, SpO2: stable & adequate BP & HR: stable & adequate Hydration State: stable & adequate Anesthetic Complications: no major complications apparent
--- NOTE | 2016-11-29 14:04 | PROGRESS NOTE ---
DATE: 11/29/2016 REASON FOR EVALUATION: Nausea and vomiting. HISTORY OF PRESENT ILLNESS: The patient is a 51-year-old who presented with 7 days of nausea and vomiting. Her blood pressure was elevated because she was unable to take her verapamil. She was cleared by cardiology and underwent an EGD today. She was found to have a pill impacted in the distal esophagus. This pill was dislodged and passed into the stomach easily. There was no specific lesion in the distal esophagus that would provoke this that I could identify. Her stomach and duodenum were normal. IMPRESSION: The patient had a pill impaction in the distal esophagus which was removed. Plan on advancing her diet and see how she tolerates it.
--- NOTE | 2016-11-29 14:50 | Surgery Consultation ---
Consultation Date of Service Nov 29, 2016. Chief Complaint renal art stenosis by US History of Present Illness The patient is a 51 year old female with HTN, seen in consultation today for renal artery stenosis noted on US. 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 Denies previous sudden elevations in BP. Denies ESTRELLA, fever, chills, chest pain, SOB, abd pain, claudication, rest pain, ulcerations, other complaints. Stopped smoking in 2008. Imaging demonstrates mild stenosis of R Renal artery, elevated velocities at 215 cm/s. Size of kidneys similar and renal fxn unchanged. Vitals Vital Signs Past 12 Hours Date Time Temp Pulse Resp B/P Pulse Ox O2 Delivery O2 Flow Rate FiO2 11/29/16 13:14 64 16 122/80 97 Room Air 11/29/16 12:59 72 16 106/77 97 Room Air 11/29/16 12:23 37 71 16 142/98 94 Room Air 11/29/16 11:50 36.9 75 18 145/93 94 Room Air 11/29/16 11:32 36.8 71 16 145/95 91 11/29/16 08:00 Room Air 11/29/16 07:17 36.9 72 16 131/85 94 Room Air 11/29/16 04:00 36.8 62 16 134/83 95 Room Air 11/29/16 04:00 96 Room Air Allergies Coded Allergies: Iodinated Contrast Media (Verified Allergy, Severe, Unknown rxn, 06/16/14) Doxycycline (Verified Allergy, Unknown, rash, 06/16/14) Latex1 -Allergic Contact Dermititis (Verified Allergy, Unknown, RASH, 11/27) Meperidine (Verified Allergy, Unknown, HIVES, VOMITING, 06/16/14) Prochlorperazine (Verified Allergy, Unknown, ., 06/16/14) [place] (Verified Allergy, Unknown, HIVES, 11/27/16) Tomato (Verified Allergy, Unknown, HIVES, 11/27/16) Uncoded Allergies: Hernandez Beans (Allergy, Unknown, HIVES, 11/27/16) Home Medications Scheduled Acetaminophen (Tylenol), 1,000 MG PO PRN Multivitamin (Multivitamin), 1 TAB PO DAILY Verapamil HCl (Verapamil HCl ER), 180 MG PO QAM Problem List Medical Problems: (1) Atherosclerosis Nos (2) Elevated troponin I level (3) Hypertension Nos (4) Hypokalemia (5) Malignant essential hypertension (6) Multiple Sclerosis (7) Prolonged QT interval Surgical / Medical History Hx Cardiac Surgery: No Hx Abdominal Surgery: Yes (Hernia Repain ) Hx Cancer Surgery: Yes Hx Thoracic Surgery: No Hx Orthopedic: No Hx Urinary Tract Surgery: Yes (Hysterectomy ) HX Other Surgery: No Past Medical/Surgical History: Hypertension Family History Cancer Diabetes mellitus Heart disease Hypertension Lung disease Social History Smoking Status: Current Some Day Smoker Hx Tobacco Use In Past Year?: Yes (smokes weed on occasion ) Hx Alcohol Use - Type & Amnt: Yes (on occasion ) Hx Substance Use -Type & Amnt: Yes (pt verbalizes smoking "a little weed") Review of Systems Constitutional: + malaise, No chills, No fever Skin: No change in color Eyes: No visual changes ENMT: No sore throat Respiratory: No HALE, No cough, No hemoptysis, No short of breath Cardiovascular: No chest pain, No edema, No intermittent claudication, No palpitations, No syncope Gastrointestinal: + diarrhea, + nausea, + vomiting, No abdominal pain Genitourinary - Female: No dysuria, No hematuria Neurologic: No dizziness, No headache, No numbness, No tingling Physical Exam Constitutional: General Apperance: heathly-appearing, well-nourished, well-developed Level of Distress: NAD Ambulation: ambulating normally Psychiatric: Mental Status: active & alert, normal mood, normal affect Orientation: oriented except where noted, to time, to place, to person Memory: recent memory normal, remote memory normal Head: normocephalic, atraumatic Eyes: EOM: EOMI ENMT: normal ENT inspection, hearing grossly normal Neck: supple, trachea midline Lungs: Respiratory effort: no dyspnea, good air movement Auscultation: breath sounds normal, no wheezing Cardiovascular: Apical Impulse: not displaced Heart Auscultation: RRR, no rubs, no gallops Peripheral Pulses: Pulses: full and equal, in all extremities except if noted Bruits: none appreciated Carotid Pulse: normal on the left, normal on the right Brachial Pulses: normal on the left, normal on the right Radial Pulse: normal on the left, normal on the right Femoral Pulse: normal on the left, normal on the right Posterior Tibialis Pulse: decreased on the left, decreased on the right Dorsalis Pedis Pulse: decreased on the left, decreased on the right Abdomen: Bowel Sounds: normal Inspection & Palpation: soft, non-distended, no tenderness, guarding & rebound Musculoskeletal: normal strength (5/5 throughout), normal tone Extremities: Upper Right: no cyanosis, no edema, no varicosities Upper Left: no cyanosis, no edema, no varicosities Lower Right: no cyanosis, no edema, no varicosities Lower Left: no cyanosis, no edema, no varicosities Neurologic: Cranial Nerves: grossly intact Sensation: grossly intact Assessment and Plan ASSESSMENT and PLAN: R Renal art stenosis Pt discussed with Dr Nguyen, who reviewed pt's US, which demonstrates mild stenosis of r renal art. No renal atrophy or decreased renal fxn noted. Pt on single antihypertensive therapy, which typically controls her HTN. No vascular surgical intervention recommended at this time. Recommend pt f/u with her PCP regularly and refer back to Dr Nguyen if changes in renal fxn or HTN uncontrolled on maximal doses of multiple hypertensive medications. This was discussed with pt and family. Please call if needed.
--- NOTE | 2016-11-29 15:32 | Discharge Summary ---
Discharge Summary Date of Service Nov 29, 2016. Discharge Summary Admission Date: Nov 27, 2016 at 15:30 Discharge Date: Nov 29, 2016 Discharge Disposition: Home (ama) Principal Diagnosis: Malignant HTN: Problems/Secondary Diagnoses: nausea, vomiting upon admission Immunizations: Have You Had Influenza Vaccine: Unknown History of Tetanus Vaccine?: Unknown History of Pneumococcal: Unknown History of Hepatitis B Vaccine: Unknown Procedures: EGD, renal artery Doppler ultrasound Consultations: GI, cardiology Discharge Exam See today's progress note Physical Exam: General Appearance: + pertinent finding (see today's progress note) Hospital Course 51 y/o F who was transferred from [place] on 11/27 2016 for malignant HTN requiring nicardipine drip. 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 No stenosis within the left renal artery. Consult Dr. Maynard, patient possible does not need a procedure for now, but will be benefit to follow-up with vascular surgeon N/V/epigastric pain: Uncertain etiology, improve and resolve, EGD done, will follow up results GI input appreciated EGD reports in below: : - Food in the lower third of the esophagus. Removal was successful. - Z-line regular, 41 cm from the incisors. - Normal stomach. - Normal examined duodenum. Recommendation: - [facility]. Minimal elevated troponin, with the epigastric pain, differential diagnosis include ACS, troponin elevation possible from severe hypertension which cause demanding ischemia However patient has history of Coronary disease: She has known coronary artery disease based on catheterization 2-1/[address] Maker of the patient, stress echo was done, was negative Increase activity, PT OT evaluation and treatment Other: Full code Lovenox for DVT proph AHA diet in the pm, Patient is not happy about diet currently , and she just want to leave, I come to bedside, discussed with her and her , I told her we can change that diet as able to tolerate, and I also informed her that her conditions has not completely evaluation yet, however patient just really 1 to go home. I told patient that against medical advice may cause permanent organ damage or even , patient is awake, alert and orientated x3, I believe patient is competent to make decision by self. patient fully understands and wants to take all risks by self. I also told patient that your medical condition is not ready for your doctor to discharge you to home. you need to go back to emergency room or call your primary care physician if changed mind and wants to be treated. . AMA signed Total Time Spent: Less than 30 minutes This includes examination of the patient, discharge planning, medication reconciliation, and communication with other providers. Discharge Instructions Please refer to the electronic Patient Visit Report (Discharge Instructions) for additional information. Additional Copies To Yashira Arizmendi C.R.N.P.
[2016-12-03 07:43] LABS: NORMETANEPHRINE PLASMA 48 pg/mL (<=148); TOTAL METANEPHRINE PLASMA 48 pg/mL (<=205)
[2016-12-04 07:29] LABS: METANEPHRINE 176 mcg/24 h (90-315); NORMETANEPHRINE UR 548 mcg/24 h (122-676); TOTAL METANEPHRINE 724 mcg/24 h (224-832)
[2016-12-21] MEDS ORDERED: HYDR-4716 PO (10:21)
[2017-04-26] MEDS ORDERED: CLON0.1T12 PO (07:48)
[2017-04-26] MEDS ORDERED: [UNRECOGNIZED DRUG - CODE] OTB (07:48)
[2017-05-08] MEDS ORDERED: CZR50 PO (13:17)
[2017-06-27] MEDS ORDERED: SERT50TA PO (15:54)
== END 2016-11-29 15:15 | disposition left against medical advice (07) | DRG 305 ==
LOC: ENRESERVDT → ENRESERVTM → C.MSICU 14:23 → UNDOADMIN 14:23 → C.MSICU 14:32 → C.MED 11-28 17:40
PROVIDERS: ADMIT Hospitalist; ATTEND Hospitalist
PROC: 0DC38ZZ Extirpation of Matter from Lower Esophagus, Via Natural or Artificial Opening Endoscopic (ICD-10-PCS; principal; 2016-11-29 12:14)
DX: I16.0 Hypertensive urgency (principal); G35 Multiple sclerosis; I25.10 Atherosclerotic heart disease of native coronary artery without angina pectoris; Z91.040 Latex allergy status; Z91.041 Radiographic dye allergy status; Z88.3 Allergy status to other anti-infective agents; Z88.8 Allergy status to other drugs, medicaments and biological substances; Z79.899 Other long term (current) drug therapy; I10 Essential (primary) hypertension; E78.00 Pure hypercholesterolemia, unspecified; Z80.9 Family history of malignant neoplasm, unspecified; Z83.3 Family history of diabetes mellitus; Z82.49 Family history of ischemic heart disease and other diseases of the circulatory system; Z83.6 Family history of other diseases of the respiratory system; F17.210 Nicotine dependence, cigarettes, uncomplicated; E87.6 Hypokalemia; I70.1 Atherosclerosis of renal artery; R19.7 Diarrhea, unspecified

== ENCOUNTER 2016-12-20 06:58 | Inpatient (IN) | payer OTHER ==
[2016-12-20] VITALS (12 sets, daily range): BP systolic 136–206; BP diastolic 77–112; PULSE 63–117; TEMP 36.4–37.9; O2SAT 95–100; Ht 170.2 cm; Wt 61.7 kg
[~2016-12-20] VITALS: Ht 170.2 cm; Wt 61.7 kg
[~2016-12-20 06:58] MED LIST changes: -ASPEC81 PO; -LSN5 PO; +MULT-506 PO
[2016-12-20] MEDS ORDERED: ONDANSETRON INJ 2 MG/ML 2 ML VIAL IV PRN ×2 (07:15→09:45)
[2016-12-20] MEDS ORDERED: VERAPAMIL HCL 180 MG TABCR PO ONE (07:15)
--- NOTE | 2016-12-20 07:22 | EMERGENCY ROOM VISIT NOTE ---
History Report prepared by Andres: Rian Magaña Under the Supervision of: Dr. Dipesh Brown M.D. First contact with patient: 07:11 Chief Complaint: ILLNESS Stated Complaint: HIGH BLOOD PRESSURE,CHEST PAIN,VOMITNG,CHOKING History of Present Illness The patient is a 51 year old female who presents to the Emergency Room via EMS with complaints of a persistent illness that started this morning. She says that she has been having a bit of chest pain and shortness of breath. The patient states that she has been getting episodes where she breaks out in massive sweats, and then proceeds to get bad chills. The patient says that she has vomited a couple times. She also has been having intermittent shaking. The patient vomited her blood pressure medication this morning (Verapamil 180 mg once per day). Per the patient's , the patient was fine last night. The patient was hospitalized here on November 27 for similar symptoms, but she says that she had been fine after leaving the hospital until this morning. She was diagnosed with malignant hypertension and was sent home with Verapamil. The patient did sign out against medical advice, however. Per the patient's , ever since the patient had a hysterectomy 10 years ago, the patient has had episodes where she breaks out in massive sweats, and then gets chills. However, the frequency of the episodes has increased recently. The patient denies any fevers, abdominal pain, or leg pain. She also takes 81 mg Aspirin and 120 mg Atorvastatin. Source of History: patient, spouse/significant other Onset: This morning Position: other (global - illness) Timing: other (persistent) Associated Symptoms: + SOB, + chest pain, + chills, + diaphoresis, + nausea , + vomiting, No abdominal pain, No fevers Note: Associated symptoms: Vomited high blood pressure medications, intermittent shaking. Denies leg pain. Review of Systems All systems have been listed, reviewed, and are negative other than those previously mentioned. Please see Additional Medical History Sheet. Past Medical & Surgical Medical Problems: (1) Atherosclerosis Nos (2) Elevated troponin I level (3) Hypertension Nos (4) Hypertensive urgency, malignant (5) Hypokalemia (6) Malignant essential hypertension (7) Multiple Sclerosis (8) Prolonged QT interval (9) Renal artery stenosis Family History Cancer Diabetes mellitus Heart disease Hypertension Lung disease Social History Smoking Status: Current Some Day Smoker Alcohol Use: occasionally Drug Use: marijuana Marital Status: Housing Status: lives with family Occupation Status: employed Current/Historical Medications Scheduled Aspirin (Aspirin Chewable), 81 MG PO DAILY Atorvastatin (Lipitor), 20 MG PO HS Multivitamin (Multivitamin), 1 TAB PO DAILY Verapamil HCl (Verapamil HCl ER), 180 MG PO QAM Allergies Coded Allergies: Doxycycline (Verified Allergy, Unknown, rash, 06/16/14) Iodinated Diagnostic Agents (Verified Allergy, Unknown, `, 12/20/16) Latex1 -Allergic Contact Dermititis (Verified Allergy, Unknown, RASH, 11/27) Meperidine (Verified Allergy, Unknown, HIVES, VOMITING, 06/16/14) Prochlorperazine (Verified Allergy, Unknown, ., 06/16/14) [place] (Verified Allergy, Unknown, HIVES, 11/27/16) Tomato (Verified Allergy, Unknown, HIVES, 11/27/16) Uncoded Allergies: Hernandez Beans (Allergy, Unknown, HIVES, 11/27/16) Physical Exam Vital Signs Date Time Temp Pulse Resp B/P Pulse Ox O2 Delivery O2 Flow Rate FiO2 12/20/16 09:44 85 16 197/104 99 12/20/16 09:15 74 19 188/95 12/20/16 09:00 81 15 218/128 12/20/16 08:55 78 14 208/109 12/20/16 08:45 80 13 211/111 98 Room Air 12/20/16 08:32 75 12/20/16 08:31 73 13 226/122 98 Room Air 12/20/16 07:52 36.6 89 18 250/129 98 Room Air 12/20/16 07:10 36.6 85 18 223/134 97 Room Air Physical Exam GENERAL: Patient awake, alert, oriented x 3. Patient follows commands. Patient does not appear toxic. Patient is adequately hydrated and well- nourished. SKIN: Patient is slightly pale and very diaphoretic. No erythema, cyanosis or rash. HEENT: Normal head, pupils equal, reactive to light and accommodation. Neck: Without adenopathy, no neck vein distention. LUNGS: Clear to auscultation. No wheezes, no rales, no rhonchi. HEART: No murmurs. No gallops. No rubs ABDOMEN: No masses, no rebound, no hepatomegaly or splenomegaly. EXTREMITIES: No signs of trauma. No pedal or pretibial edema. No calf or thigh tenderness. NEUROLOGIC: Cranial nerves II-XII within normal limits. No gross motor sensory function deficits. Medical Decision & Procedures ER Provider Diagnostic Interpretation: X ray results are stated below per my interpretation and the radiologist's interpretation. TWO VIEW CHEST CLINICAL HISTORY: Vomiting. Atypical chest pain. Cold sweats. FINDINGS: PA and lateral chest radiographs are compared to study dated 11/27/2016. The cardiomediastinal silhouette is unremarkable. Emphysema and chronic interstitial thickening are similar to previous. There is no airspace consolidation or pleural effusion. There is no pneumothorax. There are healed right-sided rib fractures. IMPRESSION: Emphysematous change with no active disease in the chest. Electronically signed by: Armin Sylvester M.D. 12/20/2016 8:07 AM Dictated Date/Time: 12/20/2016 8:06 AM Laboratory Results 12/20/16 07:20 Red Blood Count 4.45, Mean Corpuscular Volume 95.5, Mean Corpuscular Hemoglobin 31.5, Mean Corpuscular Hemoglobin Concent 32.9, Mean Platelet Volume 9.7, Neutrophils (%) (Auto) 53.8, Lymphocytes (%) (Auto) 34.6, Monocytes (%) (Auto) 7.1, Eosinophils (%) (Auto) 3.2, Basophils (%) (Auto) 1.2, Neutrophils # (Auto) 4.57, Lymphocytes # (Auto) 2.94, Monocytes # (Auto) 0.60, Eosinophils # (Auto) 0.27, Basophils # (Auto) 0.10 12/20/16 07:20 Test 12/20/16 07:20 12/20/16 07:50 12/20/16 08:43 12/20/16 09:45 White Blood Count 8.49 K/uL (4.8-10.8) Red Blood Count 4.45 M/uL (4.2-5.4) Hemoglobin 14.0 g/dL (12.0-16.0) Hematocrit 42.5 % (37-47) Mean Corpuscular Volume 95.5 fL (80-100) Mean Corpuscular Hemoglobin 31.5 pg (25-34) Mean Corpuscular Hemoglobin Concent 32.9 g/dl (32-36) Platelet Count 433 K/uL (130-400) Mean Platelet Volume 9.7 fL (7.4-10.4) Neutrophils (%) (Auto) 53.8 % Lymphocytes (%) (Auto) 34.6 % Monocytes (%) (Auto) 7.1 % Eosinophils (%) (Auto) 3.2 % Basophils (%) (Auto) 1.2 % Neutrophils # (Auto) 4.57 K/uL (1.4-6.5) Lymphocytes # (Auto) 2.94 K/uL (1.2-3.4) Monocytes # (Auto) 0.60 K/uL (0.11-0.59) Eosinophils # (Auto) 0.27 K/uL (0-0.5) Basophils # (Auto) 0.10 K/uL (0-0.2) RDW Standard Deviation 44.5 fL (36.4-46.3) RDW Coefficient of Variation 12.8 % (11.5-14.5) Immature Granulocyte % (Auto) 0.1 % Immature Granulocyte # (Auto) 0.01 K/uL (0.00-0.02) Anion Gap 6.0 mmol/L (3-11) Est Creatinine Clear Calc Drug Dose 81.8 ml/min Estimated GFR () 99.6 Estimated GFR (Non- 86.0 BUN/Creatinine Ratio 24.9 (10-20) Calcium Level 9.6 mg/dl (8.5-10.1) Total Bilirubin 0.3 mg/dl (0.2-1) Aspartate Amino Transf (AST/SGOT) 17 U/L (15-37) Alanine Aminotransferase (ALT/SGPT) 24 U/L (12-78) Alkaline Phosphatase 81 U/L (45-117) Troponin I 0.036 ng/ml (0-0.045) Total Protein 8.1 gm/dl (6.4-8.2) Albumin 4.3 gm/dl (3.4-5.0) Globulin 3.8 gm/dl (2.5-4.0) Albumin/Globulin Ratio 1.1 (0.9-2) Influenza Type A (RT-PCR) Neg for Influ A (NEG) Influenza Type B (RT-PCR) Neg for Influ B (NEG) Lactic Acid Level 1.5 mmol/L (0.4-2.0) Urine Color YELLOW Urine Appearance CLEAR (CLEAR) Urine pH 8.0 (4.5-7.5) Urine Specific Clarence 1.015 (1.000-1.030) Urine Protein NEG (NEG) Urine Glucose (UA) NEG (NEG) Urine Ketones NEG (NEG) Urine Occult Blood 1+ (NEG) Urine Nitrite NEG (NEG) Urine Bilirubin NEG (NEG) Urine Urobilinogen NEG (NEG) Urine Leukocyte Esterase NEG (NEG) Urine WBC (Auto) 0 /hpf (0-5) Urine RBC (Auto) 10-30 /hpf (0-4) Urine Hyaline Casts (Auto) 0 /lpf (0-5) Urine Epithelial Cells (Auto) 0-5 /lpf (0-5) Urine Bacteria (Auto) NEG (NEG) Laboratory results as stated above per my review. Medications Administered Medications (Trade) Dose Ordered Sig/Yeimy Route Start Time Stop Time Status Last Admin Dose Admin Ondansetron HCl 4 mg 4 mg Q1HWA PRN IV 12/20/16 07:15 12/20/16 11:20 DC 12/20/16 07:28 4 MG Nicardipine HCl 25 mg/Sodium Chloride 250 ml @ 0 mls/hr Q0M STAT IV 12/20/16 07:59 12/20/16 08:01 DC 12/20/16 08:35 5 MLS/HR Promethazine HCl/ Sodium Chloride (Phenergan Inj/ Nss 50ml) 50.5 ml @ 204 mls/hr NOW STAT IV 12/20/16 07:59 12/20/16 08:13 DC 12/20/16 08:49 204 MLS/HR Ondansetron HCl (Zofran Inj) 4 mg Q6H PRN IV 12/20/16 09:45 01/19/17 09:44 12/20/16 12:35 4 MG ECG Indication: vomiting Rate (beats per minute): 78 Rhythm: normal sinus Findings: no acute ischemic change, left axis deviation, no ectopy ED Course 0712: Past medical records reviewed. The patient was evaluated in room A11B. A complete history and physical examination was performed. 0715: Ordered Calan-Sr Tab 180 mg PO, Zofran Inj 4 mg IV PRN. 0732: Patient's visit from 11/27/16 was reviewed. 0758: I reevaluated the patient, and she is still vomiting and sweating. Her blood pressure is 250/129. 0759: Ordered Promethazine HCl 12.5mg/Sodium Chloride 50.5 ml @ 204 mls/hr IV. 0906: I reevaluated the patient and she is still nauseous, sweaty, and cold. The patient verbally expressed understanding and agreement of the treatment plan. The patient will be evaluated for further treatment. 09: I discussed the patient with Dr. Armando ELIZONDO senior sales director - he will evaluate the patient for further treatment. Medical Decision Nurses notes reviewed. Medical history sheet reviewed. Differential diagnosis includes but is not limited to: Hypertension, pheochromocytoma, pneumonia, other viral/bacterial infection, sepsis, metabolic disorder, cardiac ischemia, aortic dissection, pulmonary embolism, pneumonia, pneumothorax, musculoskeletal , infections, pericarditis, myocarditis, esophageal rupture, gastrointestinal. Multiple labs, EKG and imaging were obtained. Please see above. The patient's blood pressure remained elevated. Zofran did not help with the nausea and therefore IV Phenergan was used. I was unable to provide oral antihypertensives and therefore she was started on IV Nicardipine which she has had in the past. The blood pressure did slowly come down. The patient has hematuria but no white cells in the urine. The patient will require further evaluation in the hospital. I discussed care with the patient and with the hospitalist. Consults Time Called: [phone] Consulting Physician: Dr. Armando ELIZONDO senior sales director Returned Call: [phone] I discussed the patient with Dr. Armando ELIZONDO senior sales director - he will evaluate the patient for further treatment. Impression Primary Impression: Malignant hypertension Critical Care I have personally spent greater than 35 minutes of critical care time in the direct management of this patient. This includes bedside care, interpretation of diagnostic studies, and testing, discussion with consultants, patient, and family members, and other required patient management activities. This 35 minutes is in excess of all separately billable procedures. Scribe Attestation The scribe's documentation has been prepared under my direction and personally reviewed by me in its entirety. I confirm that the note above accurately reflects all work, treatment, procedures, and medical decision making performed by me. Departure Information Dispostion Being Evaluated By Hospitalist Referrals Yashira Arizmendi C.R.N.P. (PCP) Patient Instructions [facility]
[2016-12-20] MEDS ORDERED: ASPCH81X PO (07:23)
[2016-12-20] MEDS ORDERED: ATOR-22 PO (07:23)
[2016-12-20 07:38] LABS: BASO % 1.2 %; COMPLETE YES; EOS % 3.2 %; HEMATOCRIT 42.5 % (37-47); IG% 0.1 %; LYMPH % 34.6 %; LYMPH ABS # 2.94 K/uL (1.2-3.4); MEAN CELL VOLUME 95.5 fL (80-100); MEAN CORPUSCULAR HEMOGLOBIN 31.5 pg (25-34); MEAN CORPUSCULAR HGB CONC 32.9 g/dl (32-36); MEAN PLATELET VOLUME 9.7 fL (7.4-10.4); MONO % 7.1 %; NEUT % 53.8 %; PLATELET COUNT 433 K/uL (130-400); RED BLOOD COUNT 4.45 M/uL (4.2-5.4); WHITE BLOOD COUNT 8.49 K/uL (4.8-10.8)
[2016-12-20] MEDS ORDERED: NiCARDipine IV 25 MG in SODIUM CHLORIDE 0.9% 250ML 240 ML IV STA (07:59)
[2016-12-20] MEDS ORDERED: PROMETHAZINE HCL INJ 12.5 MG in SODIUM CHLORIDE 0.9% 50ML 50 ML IV STA (07:59)
[2016-12-20 08:00] LABS: BUN/CREATININE RATIO 24.9 (10-20); CALCIUM 9.6 mg/dl (8.5-10.1); CREATININE 0.8 mg/dl (0.60-1.20); POTASSIUM 4.5 mmol/L (3.5-5.1)
[2016-12-20 08:04] LABS: ALB/GLOB RATIO 1.1 (0.9-2)
--- NOTE | 2016-12-20 08:08 | DIAGNOSTIC IMAGING REPORT ---
TWO VIEW CHEST CLINICAL HISTORY: Vomiting. Atypical chest pain. Cold sweats. FINDINGS: PA and lateral chest radiographs are compared to study dated 11/27/2016. The cardiomediastinal silhouette is unremarkable. Emphysema and chronic interstitial thickening are similar to previous. There is no airspace consolidation or pleural effusion. There is no pneumothorax. There are healed right-sided rib fractures. IMPRESSION: Emphysematous change with no active disease in the chest. Electronically signed by: Armin Sylvester M.D. 12/20/2016 8:07 AM Dictated Date/Time: 12/20/2016 8:06 AM
[2016-12-20] MEDS ORDERED: ACETAMINOPHEN 325 MG TAB PO PRN (09:45)
[2016-12-20 09:59] LABS: INFLUENZA A PCR Neg for Influ A (NEG); INFLUENZA B PCR Neg for Influ B (NEG)
[2016-12-20] MEDS ORDERED: HydrALAZINE HCL 20 MG/ML VIAL IV. PRN (10:00)
[2016-12-20 10:10] LABS: URINE APPEARANCE CLEAR (CLEAR); URINE BILIRUBIN NEG (NEG); URINE COLOR YELLOW; URINE EPITHELIAL CELL AUTO 0-5 /lpf (0-5); URINE NITRITE NEG (NEG); URINE SPECIFIC GRAVITY 1.015 (1.000-1.030); UROBILINOGEN NEG (NEG); ZZUR CULT IF INDIC CLEAN CATCH NO
[2016-12-20 10:11] LABS: MANUAL MICROSCOPIC REQUIRED? NO; REVIEW REQ? NO
--- NOTE | 2016-12-20 11:54 | History and Physical ---
History & Physical Date & Time of Service: December 20, 2016 at 11:48 Chief Complaint: Malignant Hypertensive Urgency Primary Care Physician: Yashira Arizmendi C.R.N.P. History of Present Illness Source: patient This is a 51 yo F with PMHx Multiple sclerosis, hypertension, hyperlipidemia who was recently admitted November 27 for similar presentation with malignant hypertension, who reports to the ED after awakening with nausea at 6:10am and started vomiting. She was found to be hypertensive in the ED with BP = 218/128 so was started on a nifedipine gtt. She denies lightheadedness, dizziness, cp, palpitations. Overall she has felt well since she left AMA at last admission, and reports she has been taking verapamil as directed. She has been nauseous despite intervention with zofran and phenergan in the ED. Denies abdominal pain , changes in bowel habits, and denies hematochezia or blood streaking in emesis. Pt reports her diet has been adequate but does not provide details. She denies recently consuming raw/undercooked foods, travel, or sick contacts. She admits to smoking marijuana on a daily basis to help her sleep and increase her appetite. She denies any other illicit drug use or tobacco use. She admits to etoh use, 2 beers monthly. Past Medical/Surgical History Medical Problems: (1) Atherosclerosis Nos Status: Chronic (2) Hypertension Nos Status: Chronic (3) Multiple Sclerosis Status: Chronic Family History Cancer Diabetes mellitus Heart disease Hypertension Lung disease Social History Smoking Status: Current Every Day Smoker (smokes marijuana daily) Alcohol Use: occasionally (2 beers monthly) Drug Use: marijuana Marital Status: Occupational Status: employed Immunizations History of Influenza Vaccine: Unknown History of Tetanus Vaccine?: Unknown History of Pneumococcal: Unknown History of Hepatitis B Vaccine: Unknown Allergies Coded Allergies: Doxycycline (Verified Allergy, Unknown, rash, 06/16/14) Iodinated Diagnostic Agents (Verified Allergy, Unknown, `, 12/20/16) Latex1 -Allergic Contact Dermititis (Verified Allergy, Unknown, RASH, 11/27) Meperidine (Verified Allergy, Unknown, HIVES, VOMITING, 06/16/14) Prochlorperazine (Verified Allergy, Unknown, ., 06/16/14) [place] (Verified Allergy, Unknown, HIVES, 11/27/16) Tomato (Verified Allergy, Unknown, HIVES, 11/27/16) Uncoded Allergies: [place] Beans (Allergy, Unknown, HIVES, 11/27/16) Home Medications Scheduled Aspirin (Aspirin Chewable), 81 MG PO DAILY Atorvastatin (Lipitor), 20 MG PO HS Multivitamin (Multivitamin), 1 TAB PO DAILY Verapamil HCl (Verapamil HCl ER), 180 MG PO QAM Review of Systems Constitutional: + fatigue, No chills, No fever, No sweats, No weight loss Eyes: No diplopia, No redness ENT: No sore throat, No trouble swallowing Respiratory: No cough, No dyspnea on exertion, No shortness of breath Cardiovascular: No chest pain, No palpitations Abdomen: + nausea, + vomiting, No GI bleeding, No constipation, No diarrhea, No pain Musculoskeletal: No calf pain, No swelling Genitourinary - Female: No dysuria, No hematuria Neurologic: No balance problems, No numbness/tingling Endocrine: No excessive thirst, No fatigue Integumentary: No itch, No rash Physical Exam Vital Signs Date Time Temp Pulse Resp B/P Pulse Ox O2 Delivery O2 Flow Rate FiO2 12/20/16 10:30 75 16 162/92 98 12/20/16 10:00 75 19 176/94 97 Room Air 12/20/16 09:44 85 16 197/104 99 12/20/16 09:15 74 19 188/95 12/20/16 09:00 81 15 218/128 12/20/16 08:55 78 14 208/109 12/20/16 08:45 80 13 211/111 98 Room Air 12/20/16 08:32 75 12/20/16 08:31 73 13 226/122 98 Room Air 12/20/16 07:52 36.6 89 18 250/129 98 Room Air 12/20/16 07:10 36.6 85 18 223/134 97 Room Air General Appearance: WD/WN, no apparent distress, + pertinent finding (appears fatigued, +disheveled ) Head: normocephalic, atraumatic Eyes: PERRL, EOMI ENT: hearing grossly normal, pharynx normal Neck: supple, no JVD Respiratory/Chest: chest non-tender, lungs clear, no respiratory distress, no accessory muscle use Cardiovascular: regular rate, rhythm, no murmur, normal peripheral pulses Abdomen/GI: normal bowel sounds, non tender, soft, no organomegaly Back: normal inspection, no CVA tenderness Extremities/Musculoskelatal: no calf tenderness, no pedal edema Neurologic/Psych: alert, normal mood/affect, oriented x 3 Skin: normal color, + diaphoresis (mild) Diagnostics Laboratory Results Results Past 24 Hours Test 12/20/16 07:20 12/20/16 07:50 12/20/16 08:43 12/20/16 09:45 Range/Units White Blood Count 8.49 4.8-10.8 K/uL Red Blood Count 4.45 4.2-5.4 M/uL Hemoglobin 14.0 12.0-16.0 g/dL Hematocrit 42.5 37-47 % Mean Corpuscular Volume 95.5 80-100 fL Mean Corpuscular Hemoglobin 31.5 25-34 pg Mean Corpuscular Hemoglobin Concent 32.9 32-36 g/dl Platelet Count 433 130-400 K/uL Mean Platelet Volume 9.7 7.4-10.4 fL Neutrophils (%) (Auto) 53.8 % Lymphocytes (%) (Auto) 34.6 % Monocytes (%) (Auto) 7.1 % Eosinophils (%) (Auto) 3.2 % Basophils (%) (Auto) 1.2 % Neutrophils # (Auto) 4.57 1.4-6.5 K/uL Lymphocytes # (Auto) 2.94 1.2-3.4 K/uL Monocytes # (Auto) 0.60 0.11-0.59 K/uL Eosinophils # (Auto) 0.27 0-0.5 K/uL Basophils # (Auto) 0.10 0-0.2 K/uL RDW Standard Deviation 44.5 36.4-46.3 fL RDW Coefficient of Variation 12.8 11.5-14.5 % Immature Granulocyte % (Auto) 0.1 % Immature Granulocyte # (Auto) 0.01 0.00-0.02 K/uL Sodium Level 141 136-145 mmol/L Potassium Level 4.5 3.5-5.1 mmol/L Chloride Level 107 98-107 mmol/L Carbon Dioxide Level 28 21-32 mmol/L Anion Gap 6.0 3-11 mmol/L Blood Urea Nitrogen 20 7-18 mg/dl Creatinine 0.80 0.60-1.20 mg/dl Est Creatinine Clear Calc Drug Dose 81.8 ml/min Estimated GFR () 99.6 Estimated GFR (Non- 86.0 BUN/Creatinine Ratio 24.9 10-20 Random Glucose 112 70-99 mg/dl Calcium Level 9.6 8.5-10.1 mg/dl Total Bilirubin 0.3 0.2-1 mg/dl Aspartate Amino Transf (AST/SGOT) 17 15-37 U/L Alanine Aminotransferase (ALT/SGPT) 24 12-78 U/L Alkaline Phosphatase 81 45-117 U/L Troponin I 0.036 0-0.045 ng/ml Total Protein 8.1 6.4-8.2 gm/dl Albumin 4.3 3.4-5.0 gm/dl Globulin 3.8 2.5-4.0 gm/dl Albumin/Globulin Ratio 1.1 0.9-2 Influenza Type A (RT-PCR) Neg for Influ A NEG Influenza Type B (RT-PCR) Neg for Influ B NEG Lactic Acid Level 1.5 0.4-2.0 mmol/L Urine Color YELLOW Urine Appearance CLEAR CLEAR Urine pH 8.0 4.5-7.5 Urine Specific [place] 1.015 1.000-1.030 Urine Protein NEG NEG Urine Glucose (UA) NEG NEG Urine Ketones NEG NEG Urine Occult Blood 1+ NEG Urine Nitrite NEG NEG Urine Bilirubin NEG NEG Urine Urobilinogen NEG NEG Urine Leukocyte Esterase NEG NEG Urine WBC (Auto) 0 0-5 /hpf Urine RBC (Auto) 10-30 0-4 /hpf Urine Hyaline Casts (Auto) 0 0-5 /lpf Urine Epithelial Cells (Auto) 0-5 0-5 /lpf Urine Bacteria (Auto) NEG NEG Microbiology Results 12/20/16 Blood Culture, Received Pending 12/20/16 Blood Culture, Received Pending Diagnostic Radiology CXR: IMPRESSION: Emphysematous change with no active disease in the chest. EKG Vent. rate 78 BPM TX interval 174 ms QRS duration 86 ms QT/QTc 370/421 ms P-R-T axes 59 -38 54 Poor data quality, interpretation may be adversely affected Normal sinus rhythm Possible Left atrial enlargement Left axis deviation Abnormal ECG When compared with ECG of 28-NOV-2016 01:16, QT has shortened Impression Assessment and Plan This is a 51 yo F with PMHx Multiple sclerosis, hypertension, hyperlipidemia who was recently admitted at the beginning of November for similar presentation with malignant hypertension, who reports to the ED after awakening with nausea at 6:10am and started vomiting. Malignant Hypertension - Admitted to tele - Continue verapamil 180 mcg daily, pt was started on a nicardipine gtt but has titrated off since on telemetry floor- BP is trending downward - Hydralazine 50 mg PO TID and 10 mg IV prn for SBP > 180 or DBP >110 - Cont ASA 81 mg - Stress echo was obtained on last admission - Antiemetics with zofran and phenergan PRN, QT reviewed and not prolonged. Renal Artery Stenosis - U/S completed on 11/29/16showing elevated peak systolic velocity within the proximal right renal artery, consistent with hemodynamically significant stenosis. No stenosis within the left renal artery. - Cortisol level random is normal, and TSH is normal from last admission - Vascular surgery was consulted on last admission, at this time because the patients bp was controlled on verapamil alone and no other antihypertensives, no surgical intervention was indicated. CAD s/p cardiac cath - EKG reviewed and currently NSR without ischemic or acute ST changes. - Negative initial troponin, no need to trend - Stress echo completed on 11/28/16: * 1. Normal LV size. Mild concentric LVH. * 2. Normal LV systolic function. LVEF 60-65%. No regional wall motion abnormalities. * 3. Normal RV size and function. * 4. No significant valvular pathology. * 5. Normal estimated CVP. * 6. Compared with prior study on 06/17/2014: No significant changes. Hyperlipidemia - Cont Atorvastatin 20 mg QAM DVT ppx: Lovenox for DVT proph CODE STATUS: FULL CODE Disposition: From home, no CM needs anticipated Level of Care Telemetry Resuscitation Status FULL RESUSCITATION VTE Prophylaxis VTE Risk Assessment Done? Y/N: Yes Risk Level: Moderate Given or contraindicated: Enoxaparin (Lovenox)SQ, T.E.D. Stockings, SCD's
[2016-12-20] MEDS ORDERED: METOPROLOL TARTRATE 1 MG/ML VIAL IV PRN (13:15)
[2016-12-20] MEDS ORDERED: METOCLOPRAMIDE HCL INJ 5 MG/ML 2 ML VIAL IV STA (13:42)
[2016-12-20] MEDS ORDERED: METOCLOPRAMIDE HCL INJ 5 MG/ML 2 ML VIAL IV PRN (13:45)
[2016-12-20] MEDS: ENOXAPARIN 40 MG/0.4 ML SYR SC SCH (13:50)
[2016-12-20] MEDS ORDERED: LABETALOL HCL IV 5 MG/ML 20ML IV PRN ×2 (14:15→14:30)
--- NOTE | 2016-12-20 15:04 | DIAGNOSTIC IMAGING REPORT ---
ABDOMEN 2 VIEWS CLINICAL HISTORY: Vomiting. FINDINGS: Supine and erect abdominal radiographs are obtained. No prior studies are available for comparison at the time of dictation. There is a nonobstructed abdominal bowel gas pattern. Mild colonic fecal retention is observed. There is no evidence of intraperitoneal free air. There is no radiographic evidence of nephrolithiasis. An indeterminant density is identified in the right lower quadrant, and may represent colonic contents. Lung bases are clear as imaged. The bony structures appear intact. IMPRESSION: Nonobstructed abdominal bowel gas pattern. Electronically signed by: Armin Sylvester M.D. 12/20/2016 3:03 PM Dictated Date/Time: 12/20/2016 3:02 PM
[2016-12-20] MEDS: VERAPAMIL HCL 180 MG TABCR PO SCH (19:27)
[2016-12-20] MEDS ORDERED: ALUMINUM/MAGNESIUM SUSP 30 ML UDC PO PRN (19:30)
[2016-12-20] MEDS ORDERED: NURSING VERBAL MED ORDER ONE (19:30)
[2016-12-20] MEDS ORDERED: ATORVASTATIN 20 MG TAB PO SCH (21:00)
[2016-12-21 00:45] VITALS: TEMP 37.4
[2016-12-21 03:57] VITALS: BP 155/70; PULSE 93; TEMP 37.3; O2SAT 96
[2016-12-21 06:08] LABS: BASO % 0.3 %; BASO ABS # 0.04 K/uL (0-0.2); COMPLETE YES; EOS % 0.2 %; HEMATOCRIT 41.9 % (37-47); IG% 0.2 %; LYMPH % 24.1 %; MEAN CELL VOLUME 92.9 fL (80-100); MEAN CORPUSCULAR HEMOGLOBIN 31.7 pg (25-34); MEAN CORPUSCULAR HGB CONC 34.1 g/dl (32-36); MEAN PLATELET VOLUME 9.8 fL (7.4-10.4); MONO % 9.2 %; PLATELET COUNT 441 K/uL (130-400); RED BLOOD COUNT 4.51 M/uL (4.2-5.4); WHITE BLOOD COUNT 12.05 K/uL (4.8-10.8)
[2016-12-21 07:21] LABS: BUN/CREATININE RATIO 23.4 (10-20); CALCIUM 9.6 mg/dl (8.5-10.1); CREATININE 0.75 mg/dl (0.60-1.20); MAGNESIUM 2.4 mg/dl (1.8-2.4); POTASSIUM 3.5 mmol/L (3.5-5.1)
[2016-12-21] MEDS: VERAPAMIL HCL 180 MG TABCR PO SCH (07:42)
[2016-12-21 07:51] VITALS: BP 123/84; PULSE 93; TEMP 36.8; O2SAT 95
[2016-12-21] MEDS ORDERED: ASPIRIN 81 MG ECTAB PO SCH (09:00)
[2016-12-21] MEDS ORDERED: VERAPAMIL HCL 180 MG TABCR PO SCH (09:00)
[2016-12-21] MEDS ORDERED: HYDR-4716 PO (10:21)
--- NOTE | 2016-12-21 11:06 | DIAGNOSTIC IMAGING REPORT ---
ABDOMEN CT WITHOUT CONTRAST CT DOSE: 175.02 mGy.cm HISTORY: Adrenal mass fever, sagittal, TECHNIQUE: Multiaxial CT images of the abdomen was performed without contrast. COMPARISON STUDY: None. FINDINGS: Lung bases are clear. Old incompletely healed fracture posterior right 11th rib. The adrenal glands are unremarkable. No evidence for adrenal mass. Liver spleen and pancreas are unremarkable. Nonobstructive bowel pattern. Kidneys negative for hydronephrosis. IMPRESSION: Negative study Electronically signed by: Walt Fernandez M.D. 12/21/2016 11:05 AM Dictated Date/Time: 12/21/2016 11:03 AM
[2016-12-21 11:49] LABS: THYROXINE (T4) 8.7 mcg/dl (4.5-10.9)
[2016-12-21 11:50] LABS: T3 TOTAL 0.96 ng/ml (0.60-1.81)
[2016-12-21 11:57] VITALS: BP 143/84; PULSE 84; TEMP 37; O2SAT 96
[2016-12-21] MEDS: ENOXAPARIN 40 MG/0.4 ML SYR SC SCH (12:00)
--- NOTE | 2016-12-21 14:01 | Discharge Instructions ---
Discharge Instructions Date of Service December 21, 2016. Admission Reason for Admission: Malignant Hypertensive Urgency Discharge Discharge Diagnosis / Problem: Hypertensive Urgency, vomiting, likely viral gastroenterology Discharge Goals Goal(s): Improve function, Improve disease control (blood pressure control), Diagnostic testing (consider testing for pheochromocytoma) Activity Recommendations Activity Limitations: resume your previous activity Lifting Limitations: none Exercise/Sports Limitations: as tolerated May Resume Sexual Activity: when tolerated Shower/Bathe: no limitations Driving or Machine Use: no limitations . Instructions / Follow-Up Instructions / Follow-Up Medications: continue all prior medications - HYDRALAZINE: blood pressure medication, low dose initiated, can titrate upward as outpatient if needed Uncontrolled hypertension: blood pressure much improved this AM which correlated with your nausea and vomiting improving. Unclear etiology of the high blood pressure but technically you do not have resistant blood pressure until you are on three medications at maximum doses and one of which is a diuretic. There are causes of high blood pressure discussed below: - TSH (thyroid) level was normal - renal artery stenosis (seen on last admission): this can cause high blood pressure but intervention only considered if you are still having uncontrolled BP on 3 medications - pheochromocytoma: low possibility at this point, CT scan abdomen showed normal adrenal glands, no tumors which is typical presentation normal imaging does not rule this out if you continue to have episodes of flushing, sweats, headache, dizzy, vomiting and extremely high blood pressures, this can still be considered your primary care physician can ordered testing of your urine metanephrine levels and possible referral to hood fitter Nausea and vomiting: likely viral etiology since it cleared so quickly, your imaging and lab work was all normal FOLLOW UP - call for close follow up with Yashira Arizmendi in one week Current Hospital Diet Patient's current hospital diet: AHA Diet (Heart Healthy) Discharge Diet Recommended Diet: AHA Diet (Heart Healthy) Pending Studies Studies pending at discharge: no Laboratory Results Last Resulted CBC 12/21/16 05:47 Red Blood Count 4.51, Mean Corpuscular Volume 92.9, Mean Corpuscular Hemoglobin 31.7, Mean Corpuscular Hemoglobin Concent 34.1, Mean Platelet Volume 9.8, Neutrophils (%) (Auto) 66.0, Lymphocytes (%) (Auto) 24.1, Monocytes (%) (Auto) 9.2, Eosinophils (%) (Auto) 0.2, Basophils (%) (Auto) 0.3, Neutrophils # (Auto) 7.96, Lymphocytes # (Auto) 2.90, Monocytes # (Auto) 1.11, Eosinophils # (Auto) 0.02, Basophils # (Auto) 0.04 Last Resulted BMP 12/21/16 05:47 Hemoglobin A1c Test 11/28/16 07:35 Range/Units Estimated Average Glucose 111 mg/dl Hemoglobin A1c 5.5 4.5-5.6 % Lipid Panel Test 11/29/16 06:23 Range/Units Triglycerides Level 218 H 0-150 mg/dl Cholesterol Level 275 H 0-200 mg/dl HDL Cholesterol 61 mg/dl Cholesterol/HDL Ratio 4.5 LDL Cholesterol, Calculated 170 mg/dl Work Instructions Return To Work: 2 days (can return on Saturday 12/23) Lifting Limitations: none Medical Emergencies . Who to Call and When: Medical Emergencies: If at any time you feel your situation is an emergency, please call 911 immediately. . Non-Emergent Contact Non-Emergency issues call your: Primary Care Provider Call Non-Emergent contact if: you have any medication questions . Past History Medical & Surgical History: (1) Malignant essential hypertension (2) Renal artery stenosis . "Provider Documentation" section prepared by Rohit Roberts. . VTE Core Measure Inpt VTE Proph given/why not?: Enoxaparin (Lovenox)ELSY, TClarisa Cleary, SCD's [place] Drug Monitoring Program Search Results: no issues identified
[2016-12-21 14:14] VITALS: BP 143/84; PULSE 84; TEMP 37; O2SAT 96
--- NOTE | 2016-12-22 07:42 | Discharge Summary ---
Discharge Summary Date of Service December 21, 2016. Discharge Summary Admission Date: December 20, 2016 at 09:47 Discharge Date: December 21, 2016 Discharge Disposition: Home Principal Diagnosis: Hypertensive urgency, no signs of organ failure Problems/Secondary Diagnoses: Intractable vomiting Right renal artery stenosis Marijuana abuse Immunizations: Have You Had Influenza Vaccine: Unknown History of Tetanus Vaccine?: Unknown History of Pneumococcal: Unknown History of Hepatitis B Vaccine: Unknown Procedures: CT abdomen - no abnormalities noted in adrenal glands, kidneys, liver Consultations: none Medication Reconciliation New Medications: Hydralazine HCl (Hydralazine HCl) 25 Mg Tab 25 MG PO BID, #60 TABS 3 Refills Continued Medications: Aspirin (Aspirin Chewable) 81 Mg Chew 81 MG PO DAILY Atorvastatin (Lipitor) 20 Mg Tab 20 MG PO HS, TAB Multivitamin (Multivitamin) Tab 1 TAB PO DAILY, TAB Verapamil HCl (Verapamil HCl ER) 180 Mg Tabcr 180 MG PO QAM, #30 Discharge Exam Patient was feeling extremely well in the morning on 12/21. She reported that she had a vomiting episode in the evening on 12/20 and then when she returned to bed she felt great, all of her symptoms had completely resolved. Her blood pressure was well controlled all night. She tolerated all of her breakfast. We had a long discussion regarding her constellation of symptoms with the high blood pressure, nausea, vomiting, headaches, diaphoresis, flushing and how they came on all of a sudden. Suggested that we should check her thyroid levels as well as a CT for any adrenal gland abnormalities. The patient ate her lunch without any need for anti-emetics. Her CT was normal as well as thyroid testing and she was d/c home in stable condition with new prescription for Hydralazine. All her questions were answered and she agreed that she felt well enough for discharge. Review of Systems: Constitutional: No chills, No fatigue, No fever, No problem reported, No sweats, No weakness, No weight loss Eyes: No diplopia, No discharge, No eye pain, No problem reported, No redness, No worsening of vision ENT: No dental problems, No hearing loss, No nasal symptoms, No problem reported, No sore throat, No tinnitus, No trouble swallowing, No unusual epistaxis Respiratory: No cough, No dyspnea at rest, No dyspnea on exertion, No hemoptysis, No problem reported, No shortness of breath, No sputum, No wheezing Cardiovascular: No PND, No chest pain, No claudication, No edema, No orthopnea, No palpitations, No problem reported Abdomen: + vomiting (had resolved overnight, no vomiting the day of discharge), No GI bleeding, No constipation, No diarrhea, No nausea, No pain, No problem reported Musculoskeletal: No calf pain, No joint pain, No muscle pain, No problem reported, No swelling Genitourinary - Female: No dysuria, No urinary frequency, No urinary incontinence, No urinary urgency Neurologic: No balance problems, No memory loss, No numbness/tingling, No paralysis, No problem reported, No vertigo, No weakness Psychiatric: No anhedonism, No anxiety, No depression symptoms, No insomnia , No problem reported, No substance abuse Endocrine: No excessive thirst, No excessive urination, No fatigue, No problem reported Hematologic / Lymphatic: No abnormal bleeding/bruising, No clotting problems , No night sweats, No problem reported, No swollen lymph nodes Integumentary: No bleeding, No color change, No itch, No new/changing skin lesions, No problem reported, No rash Physical Exam: General Appearance: WD/WN, no apparent distress Eyes: normal inspection, EOMI, sclerae normal ENT: normal ENT inspection, hearing grossly normal, pharynx normal Neck: supple, no adenopathy, no JVD, trachea midline Respiratory/Chest: chest non-tender, lungs clear, normal breath sounds, no respiratory distress, no accessory muscle use Cardiovascular: regular rate, rhythm, no edema, no gallop, no JVD, no murmur , normal peripheral pulses Abdomen / GI: normal bowel sounds, non tender, soft, no organomegaly Extremities: normal inspection, no calf tenderness, normal capillary refill , no pedal edema, normal range of motion, pelvis stable 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: emergency room specialist II-XII nml as tested, no motor/sensory deficits , alert, normal mood/affect, normal reflexes, oriented x 3 Skin: normal color, warm/dry, no rash Lymphatic: no adenopathy Hospital Course This is a 51 yo F with PMHx Multiple sclerosis, hypertension, hyperlipidemia who was recently admitted at the beginning of November for similar presentation with malignant hypertension, who reports to the ED after awakening with nausea at 6:10am and started vomiting. The patient was treated with Zofran, Phenergan and Reglan and then overnight her vomiting completely resolved and she was able to eat two full meals on 12/21. Her blood pressure responded well to the addition of Hydralazine and specifically it seemed that her BP improved once her vomiting stopped. We had a long discussion about her blood pressure control and need for close follow up with PCP. Malignant Hypertension, no evidence of organ dysfunction continue Verapamil 180mg daily and new prescription for Hydralazine 25mg BID with plans to titrate upwards as needed known right sided renal artery stenosis from prior admission, however, would only need intervention if BP poorly controlled on max doses of three medications checked a CT abdomen specifically asking to look at adrenal glands, non- contrast due to allergy -- normal CT, normal adrenal glands, no other nodules or masses seen TSH - normal as well as normal T3/T4 instructed to eat low sodium diet, follow up closely with PCP Nausea and vomiting: unclear etiology, could have been viral but also could be related to daily marijuana use, cyclic vomiting? her symptoms completely resolved spontaneously overnight and in her words she "felt like a new person" in the morning she ate her entire breakfast and lunch she had a normal EGD on prior admission, abdominal x-ray showed normal bowel gas pattern, CT abdomen showed no abnormalities lipase and LFT were normal Renal Artery Stenosis no need for intervention unless her BP is poorly controlled on max doses of three anti-hypertensives will consult vascular surgery in the future if needed, they saw patient last admission CAD s/p cardiac cath EKG reviewed and currently NSR without ischemic or acute ST changes. Negative initial troponin, no need to trend Stress echo completed on 11/28/16: normal Hyperlipidemia - Cont Atorvastatin 20 mg QAM DVT ppx: Lovenox for DVT proph CODE STATUS: FULL CODE Total Time Spent: Greater than 30 minutes This includes examination of the patient, discharge planning, medication reconciliation, and communication with other providers. Discharge Instructions Please refer to the electronic Patient Visit Report (Discharge Instructions) for additional information. Follow-Up Yashira Arizmendi in one week Additional Copies To Yashira Arizmendi C.R.N.P.
[2017-04-26] MEDS ORDERED: CLON0.1T12 PO (07:48)
[2017-04-26] MEDS ORDERED: [UNRECOGNIZED DRUG - CODE] OTB (07:48)
[2017-06-27] MEDS ORDERED: SERT50TA PO (15:54)
== END 2016-12-21 14:45 | disposition home or self-care (01) | DRG 305 ==
LOC: ENRESERVTM → ENRESERVDT → C.EDB 07:00 → C.2T 09:47
PROVIDERS: ADMIT Internal Medicine; ATTEND Internal Medicine
DX: I16.0 Hypertensive urgency (principal); A08.4 Viral intestinal infection, unspecified; I70.1 Atherosclerosis of renal artery; I25.10 Atherosclerotic heart disease of native coronary artery without angina pectoris; E78.5 Hyperlipidemia, unspecified; G35 Multiple sclerosis; F12.10 Cannabis abuse, uncomplicated; Z79.899 Other long term (current) drug therapy; Z79.82 Long term (current) use of aspirin

== ENCOUNTER 2016-12-21 22:57 | Inpatient (IN) | payer OTHER ==
[~2016-12-21] VITALS: Ht 170.2 cm; Wt 59.4 kg
[~2016-12-21 22:57] MED LIST changes: -ACET-1256 PO; +ASPCH81X PO; +ATOR-22 PO; +HYDR-4716 PO
--- NOTE | 2016-12-21 23:11 | EMERGENCY ROOM VISIT NOTE ---
History Report prepared by Hussainibshelly: Leon Roy Under the Supervision of: Dr. Chente Bragg D.O. First contact with patient: 23:04 Chief Complaint: OTHER COMPLAINT Stated Complaint: VOMITING, HIGH BP History of Present Illness The patient is a 51 year old female who presents to the Emergency Room with complaints of recurrent vomiting. The patient was in the ED yesterday which increased blood pressure and vomiting. The patient's vomiting was under control after being discharged. Tonight around 2130 she started vomiting again. She currently complains of nausea. The patient was started on a new blood pressure medication yesterday, which she took at 2000 tonight. She cannot remember the name of the medication but she is intended to take in BID. The patient's vomit contained the food she ate earlier tonight which was macaroni and cheese. She also had coffee. Her vomit has not contained any blood. Source of History: patient Onset: yesterday Position: other (GI) Quality: other (vomiting) Timing: other (recurrent) Associated Symptoms: + nausea Note: No hematemesis. Review of Systems See HPI for pertinent positives and negatives. A total of ten systems were reviewed and were otherwise negative. Past Medical & Surgical Medical Problems: (1) Atherosclerosis Nos (2) Elevated troponin I level (3) Hypertension Nos (4) Hypertensive urgency, malignant (5) Hypokalemia (6) Malignant essential hypertension (7) Multiple Sclerosis (8) Nausea & vomiting (9) Prolonged QT interval (10) Renal artery stenosis (11) Uncontrolled hypertension Family History Cancer Diabetes mellitus Heart disease Hypertension Lung disease Social History Smoking Status: Former Smoker Alcohol Use: occasionally Drug Use: marijuana Marital Status: Housing Status: lives with family Occupation Status: employed Current/Historical Medications Scheduled Aspirin (Aspirin Chewable), 81 MG PO DAILY Atorvastatin (Lipitor), 20 MG PO HS Hydralazine HCl (Hydralazine HCl), 25 MG PO BID Multivitamin (Multivitamin), 1 TAB PO DAILY Verapamil HCl (Verapamil HCl ER), 180 MG PO QAM Allergies Coded Allergies: Doxycycline (Verified Allergy, Unknown, rash, 12/21/16) Iodinated Diagnostic Agents (Verified Allergy, Unknown, `, 12/21/16) Latex1 -Allergic Contact Dermititis (Verified Allergy, Unknown, RASH, 12/21) Meperidine (Verified Allergy, Unknown, HIVES, VOMITING, 12/21/16) Prochlorperazine (Verified Allergy, Unknown, ., 06/16/14) [place] (Verified Allergy, Unknown, HIVES, 11/27/16) Tomato (Verified Allergy, Unknown, HIVES, 11/27/16) Uncoded Allergies: [place] Beans (Allergy, Unknown, HIVES, 11/27/16) Physical Exam Vital Signs Date Time Temp Pulse Resp B/P Pulse Ox O2 Delivery O2 Flow Rate FiO2 12/22/16 01:34 102 18 147/92 12/22/16 01:06 92 18 132/89 96 Room Air 12/22/16 00:44 94 18 148/96 96 Room Air 12/22/16 00:38 96 18 132/92 96 Room Air 12/22/16 00:31 96 18 154/96 97 Room Air 12/22/16 00:15 100 18 193/118 12/21/16 23:28 91 18 184/102 96 Room Air 12/21/16 23:22 89 12/21/16 22:59 36.8 117 18 138/95 96 Room Air Physical Exam GENERAL: Awake, alert, well-appearing, in no distress HENT: Normocephalic, atraumatic. Oropharynx unremarkable. EYES: Normal conjunctiva. Sclera non-icteric. NECK: Supple. No nuchal rigidity. FROM. No JVD. RESPIRATORY: Clear to auscultation. CARDIAC: Regular rate, normal rhythm. Extremities warm and well perfused. Pulses equal. ABDOMEN: Soft, non-distended. No tenderness to palpation. No rebound or guarding. No masses. RECTAL: Deferred. MUSCULOSKELETAL: Chest examination reveals no tenderness. The back is symmetrical on inspection without obvious abnormality. There is no CVA tenderness to palpation. No joint edema. LOWER EXTREMITIES: Calves are equal size bilaterally and non-tender. No edema. No discoloration. NEURO: Normal sensorium. No sensory or motor deficits noted. SKIN: No rash or jaundice noted. Medical Decision & Procedures Laboratory Results 12/21/16 23:15 Red Blood Count 4.68, Mean Corpuscular Volume 92.9, Mean Corpuscular Hemoglobin 30.6, Mean Corpuscular Hemoglobin Concent 32.9, Mean Platelet Volume 9.6, Neutrophils (%) (Auto) 79.4, Lymphocytes (%) (Auto) 15.6, Monocytes (%) (Auto) 3.9, Eosinophils (%) (Auto) 0.5, Basophils (%) (Auto) 0.4, Neutrophils # (Auto) 8.91, Lymphocytes # (Auto) 1.75, Monocytes # (Auto) 0.44, Eosinophils # (Auto) 0.06, Basophils # (Auto) 0.05 12/21/16 23:15 Test 12/21/16 23:15 12/22/16 01:24 White Blood Count 11.23 K/uL (4.8-10.8) Red Blood Count 4.68 M/uL (4.2-5.4) Hemoglobin 14.3 g/dL (12.0-16.0) Hematocrit 43.5 % (37-47) Mean Corpuscular Volume 92.9 fL (80-100) Mean Corpuscular Hemoglobin 30.6 pg (25-34) Mean Corpuscular Hemoglobin Concent 32.9 g/dl (32-36) Platelet Count 462 K/uL (130-400) Mean Platelet Volume 9.6 fL (7.4-10.4) Neutrophils (%) (Auto) 79.4 % Lymphocytes (%) (Auto) 15.6 % Monocytes (%) (Auto) 3.9 % Eosinophils (%) (Auto) 0.5 % Basophils (%) (Auto) 0.4 % Neutrophils # (Auto) 8.91 K/uL (1.4-6.5) Lymphocytes # (Auto) 1.75 K/uL (1.2-3.4) Monocytes # (Auto) 0.44 K/uL (0.11-0.59) Eosinophils # (Auto) 0.06 K/uL (0-0.5) Basophils # (Auto) 0.05 K/uL (0-0.2) RDW Standard Deviation 42.8 fL (36.4-46.3) RDW Coefficient of Variation 12.7 % (11.5-14.5) Immature Granulocyte % (Auto) 0.2 % Immature Granulocyte # (Auto) 0.02 K/uL (0.00-0.02) Anion Gap 9.0 mmol/L (3-11) Est Creatinine Clear Calc Drug Dose 76.9 ml/min Estimated GFR () 93.9 Estimated GFR (Non- 81.0 BUN/Creatinine Ratio 28.1 (10-20) Calcium Level 9.4 mg/dl (8.5-10.1) Total Bilirubin 0.6 mg/dl (0.2-1) Direct Bilirubin 0.1 mg/dl (0-0.2) Aspartate Amino Transf (AST/SGOT) 14 U/L (15-37) Alanine Aminotransferase (ALT/SGPT) 21 U/L (12-78) Alkaline Phosphatase 71 U/L (45-117) Total Protein 8.2 gm/dl (6.4-8.2) Albumin 4.3 gm/dl (3.4-5.0) Lipase 154 U/L (73-393) Laboratory results reviewed by me Medications Administered Medications (Trade) Dose Ordered Sig/Yeimy Route Start Time Stop Time Status Last Admin Dose Admin Ondansetron HCl 4 mg 4 mg NOW STAT IV 12/21/16 23:12 12/21/16 23:13 DC 12/21/16 23:21 4 MG Pantoprazole Sodium 40 mg/ Syringe 10 ml @ 5 mls/min NOW ONCE IV 12/21/16 23:15 12/21/16 23:16 DC 12/21/16 23:26 5 MLS/MIN Sodium Chloride (Nss 1000ml) 1,000 ml @ 999 mls/hr Q1H1M IV 12/21/16 23:15 01/20/17 23:14 12/21/16 23:21 999 MLS/HR Hydralazine HCl (HydrALAZINE INJ) 10 mg NOW STAT IV. 12/21/16 23:53 12/21/16 23:54 DC 12/21/16 23:57 10 MG Hydralazine HCl (HydrALAZINE INJ) 20 mg NOW STAT IV. 12/22/16 00:16 12/22/16 00:19 DC 12/22/16 00:25 20 MG Labetalol HCl (Normodyne IV) 20 mg NOW STAT IV 12/22/16 00:18 12/22/16 00:20 DC 12/22/16 00:26 20 MG ECG Indication: vomiting Rate (beats per minute): 90 Rhythm: normal sinus Findings: no acute ischemic change, other (normal axis, normal intervals) ED Course 2305: The patient was evaluated in room C9. A complete history and physical exam was performed. 2312: Zofran 4 mg IV. 2315: NSS 1000 ml @ 999 mls/hr, Pantoprazole Sodium 40 mg / syringe 10 ml @ 50 mls/min. 2353: Hydralazine 10 mg IV. 0016: Hydralazine 20 mg IV. 0010: Blood pressure up to 190/110. 0018: Labetalol 20 mg IV. 0050: Blood pressure is now 147 / 90. She is resting in no distress. 0128: Discussed the case with Dr. Drake [facility] Hospitalist. The patient will be evaluated. Medical Decision Differential diagnosis includes gastritis, reflux, GERD, hypertension, anxiety, esophagitis. Patient had elevation blood pressure which was labile. Patient was given IV hydralazine as well as labetalol. Patient's blood pressure decub decreased to 140/90. This case was discussed with the [facility] hospitalist for admission Consults Time Called: 0120 Consulting Physician: Dr. Drake [facility] Hospitalist. Returned Call: [phone] The patient will be evaluated. Impression Primary Impression: Malignant essential hypertension Additional Impression: Nausea & vomiting Scribe Attestation The scribe's documentation has been prepared under my direction and personally reviewed by me in its entirety. I confirm that the note above accurately reflects all work, treatment, procedures, and medical decision making performed by me. Departure Information Dispostion Being Evaluated By Hospitalist Referrals Yashira Arizmendi C.R.N.P. (PCP) Patient Instructions My [facility] Problem Qualifiers Additional Impression:
[2016-12-21] MEDS ORDERED: ONDANSETRON INJ 2 MG/ML 2 ML VIAL IV STA (23:12)
[2016-12-21] MEDS ORDERED: PANTOprazole INJ 40 MG in SYRINGE 0 ML IV ONE (23:15)
[2016-12-21] MEDS ORDERED: SODIUM CHLORIDE 0.9% 1000ML 1,000 ML IV SCH (23:15)
[2016-12-21 23:30] LABS: BASO % 0.4 %; BASO ABS # 0.05 K/uL (0-0.2); COMPLETE YES; EOS % 0.5 %; HEMATOCRIT 43.5 % (37-47); IG% 0.2 %; LYMPH % 15.6 %; LYMPH ABS # 1.75 K/uL (1.2-3.4); MEAN CELL VOLUME 92.9 fL (80-100); MEAN CORPUSCULAR HEMOGLOBIN 30.6 pg (25-34); MEAN CORPUSCULAR HGB CONC 32.9 g/dl (32-36); MEAN PLATELET VOLUME 9.6 fL (7.4-10.4); MONO % 3.9 %; NEUT % 79.4 %; PLATELET COUNT 462 K/uL (130-400); RED BLOOD COUNT 4.68 M/uL (4.2-5.4); WHITE BLOOD COUNT 11.23 K/uL (4.8-10.8)
[2016-12-21] MEDS ORDERED: HydrALAZINE HCL 20 MG/ML VIAL IV. STA (23:53)
[2016-12-21 23:57] LABS: BUN/CREATININE RATIO 28.1 (10-20); CALCIUM 9.4 mg/dl (8.5-10.1); CREATININE 0.84 mg/dl (0.60-1.20); POTASSIUM 3.6 mmol/L (3.5-5.1)
[2016-12-22] VITALS (9 sets, daily range): BP systolic 103–175; BP diastolic 68–94; PULSE 64–102; TEMP 36.9–37.2; O2SAT 95–98; Ht 170.2 cm; Wt 59.4 kg
[2016-12-22] MEDS ORDERED: HydrALAZINE HCL 20 MG/ML VIAL IV. STA (00:16)
[2016-12-22] MEDS ORDERED: LABETALOL HCL IV 5 MG/ML 20ML IV STA (00:18)
[2016-12-22] MEDS ORDERED: VERAPAMIL HCL 180 MG TABCR PO STA (01:28)
[2016-12-22] MEDS ORDERED: ACETAMINOPHEN 325 MG TAB PO PRN (01:30)
[2016-12-22] MEDS ORDERED: IV FLUIDS COMPLETED PRN (01:45)
[2016-12-22] MEDS: NSS + 20MEQ KCL 1000ML 1,000 ML IV SCH ×3 (02:41→15:38)
[2016-12-22 04:15] LABS: BENZODIAZEPINE, URINE NEG (NEG); COCAINE,URINE NEG (NEG); PHENCYCLIDINE, URINE NEG (NEG)
[2016-12-22] MEDS: ONDANSETRON INJ 2 MG/ML 2 ML VIAL IV PRN (04:54)
--- NOTE | 2016-12-22 06:13 | History and Physical ---
History & Physical Date & Time of Service: December 22, 2016 at 06:03 Chief Complaint: Nausea And Vomiting, Uncontrolled Hypertension Primary Care Physician: Yashira Arizmendi C.R.N.P. History of Present Illness Source: patient, spouse The patient is a 51-year-old female presents emergency department with complaint of recurrent vomiting and then elevated blood pressure. She has been admitted to this hospital from November 27 through November 29 and most recently from December 20 through December 21, having just been discharged from the hospital. During November, the patient had initially presented to [facility] ED with these symptoms, and was then transferred to [facility] ICU on a nicardipine drip. She underwent workup at that time including an echocardiogram that was normal, and underwent an EGD which found a pill impacted distal esophagus on November 29. Renal ultrasound at that time also revealed right renal artery stenosis. Upon discharge at that time, she was continued on usual verapamil 180 mg every morning, and had the addition of hydralazine 25 mg 2 times a day. During most recent admission, there were no changes to medications made, and her CT of abdomen and pelvis was negative. Upon discharge to home yesterday, she reports that she felt well, she then ate some macaroni and cheese, and then later took her evening pills of hydralazine and Lipitor, and then vomited 1-1/2 hours later. She again reports that checking her blood pressure after vomiting was elevated again, and she presents to the emergency department at [facility] for assessment. Of note, she did leave AMA from her first admission. Past Medical/Surgical History Medical Problems: (1) Atherosclerosis Nos Status: Chronic (2) Hypertension Nos Status: Chronic (3) Multiple Sclerosis Status: Chronic Family History Cancer Diabetes mellitus Heart disease Hypertension Lung disease Social History Smoking Status: Former Smoker Smokeless Tobacco Use: No Alcohol Use: socially Drug Use: marijuana Marital Status: Housing status: lives with family Occupational Status: employed Immunizations History of Influenza Vaccine: Unknown History of Tetanus Vaccine?: Unknown History of Pneumococcal: Unknown History of Hepatitis B Vaccine: Unknown Multi-Drug Resistant Organisms History of MDRO: No Allergies Coded Allergies: Doxycycline (Verified Allergy, Unknown, rash, 12/21/16) Iodinated Diagnostic Agents (Verified Allergy, Unknown, `, 12/21/16) Latex1 -Allergic Contact Dermititis (Verified Allergy, Unknown, RASH, 12/21) Meperidine (Verified Allergy, Unknown, HIVES, VOMITING, 12/21/16) Prochlorperazine (Verified Allergy, Unknown, ., 06/16/14) [place] (Verified Allergy, Unknown, HIVES, 11/27/16) Tomato (Verified Allergy, Unknown, HIVES, 11/27/16) Uncoded Allergies: Hernandez Beans (Allergy, Unknown, HIVES, 11/27/16) Home Medications Scheduled Aspirin (Aspirin Chewable), 81 MG PO DAILY Atorvastatin (Lipitor), 20 MG PO HS Hydralazine HCl (Hydralazine HCl), 25 MG PO BID Multivitamin (Multivitamin), 1 TAB PO DAILY Verapamil HCl (Verapamil HCl ER), 180 MG PO QAM Review of Systems The patient denies chest pain, palpitations, shortness of breath, cough, lower extremity swelling, vision change, hearing change, sore throat, fevers, chills, sweats, blood in urine or stool, dysuria, urinary frequency or urgency, lightheadedness, dizziness, headache, memory loss, rash, abnormal bruising or bleeding, imbalance, focal weakness, numbness or tingling in arms or legs, arthralgias or myalgias, back or neck pain, night sweats, or allergy symptoms. The review of systems is otherwise negative other than for that already noted above, and at least 10 systems have been reviewed. Physical Exam Vital Signs Date Time Temp Pulse Resp B/P Pulse Ox O2 Delivery O2 Flow Rate FiO2 12/22/16 04:00 37.1 102 156/80 95 Room Air 12/22/16 04:00 95 Room Air 12/22/16 02:04 37.1 94 18 166/94 96 Room Air 12/22/16 01:47 100 18 155/98 96 12/22/16 01:34 102 18 147/92 12/22/16 01:06 92 18 132/89 96 Room Air 12/22/16 00:44 94 18 148/96 96 Room Air 12/22/16 00:38 96 18 132/92 96 Room Air 12/22/16 00:31 96 18 154/96 97 Room Air 12/22/16 00:15 100 18 193/118 12/21/16 23:28 91 18 184/102 96 Room Air 12/21/16 23:22 89 12/21/16 22:59 36.8 117 18 138/95 96 Room Air The patient is awake, but lethargic, well-developed and adequately nourished, oriented 3, normocephalic and atraumatic, lying in bed and in no acute distress. HEENT--PERRL, EOMI, mucous membranes and oropharynx dry. Neck--supple, no JVD or bruits, thyroid normal, trachea midline, no adenopathy. Heart--borderline tachycardic, no extra beats, no murmurs, rubs or gallops. Lungs--clear bilaterally with good air movement, no respiratory distress, no accessory muscle use. Abdomen--normal bowel sounds and soft, nontender and nondistended, no hernias or masses, no organomegaly. Extremities--no cyanosis, clubbing or edema. There are good distal pulses b/l. Dermatologic--normal skin turgor, normal color, warm and dry, no abnormal lymph nodes, no rash. Neurologic--cranial nerves II through XII grossly intact, motor and sensory examination normal. Rheumatologic--normal range of motion, nontender, muscles and joints. Psychiatric--depressed. Diagnostics Laboratory Results Results Past 24 Hours Test 12/21/16 23:15 12/22/16 03:38 12/22/16 04:44 Range/Units White Blood Count 11.23 4.8-10.8 K/uL Red Blood Count 4.68 4.2-5.4 M/uL Hemoglobin 14.3 12.0-16.0 g/dL Hematocrit 43.5 37-47 % Mean Corpuscular Volume 92.9 80-100 fL Mean Corpuscular Hemoglobin 30.6 25-34 pg Mean Corpuscular Hemoglobin Concent 32.9 32-36 g/dl Platelet Count 462 130-400 K/uL Mean Platelet Volume 9.6 7.4-10.4 fL Neutrophils (%) (Auto) 79.4 % Lymphocytes (%) (Auto) 15.6 % Monocytes (%) (Auto) 3.9 % Eosinophils (%) (Auto) 0.5 % Basophils (%) (Auto) 0.4 % Neutrophils # (Auto) 8.91 1.4-6.5 K/uL Lymphocytes # (Auto) 1.75 1.2-3.4 K/uL Monocytes # (Auto) 0.44 0.11-0.59 K/uL Eosinophils # (Auto) 0.06 0-0.5 K/uL Basophils # (Auto) 0.05 0-0.2 K/uL RDW Standard Deviation 42.8 36.4-46.3 fL RDW Coefficient of Variation 12.7 11.5-14.5 % Immature Granulocyte % (Auto) 0.2 % Immature Granulocyte # (Auto) 0.02 0.00-0.02 K/uL Sodium Level 138 136-145 mmol/L Potassium Level 3.6 3.5-5.1 mmol/L Chloride Level 101 98-107 mmol/L Carbon Dioxide Level 28 21-32 mmol/L Anion Gap 9.0 3-11 mmol/L Blood Urea Nitrogen 24 7-18 mg/dl Creatinine 0.84 0.60-1.20 mg/dl Est Creatinine Clear Calc Drug Dose 76.9 ml/min Estimated GFR () 93.9 Estimated GFR (Non- 81.0 BUN/Creatinine Ratio 28.1 10-20 Random Glucose 131 70-99 mg/dl Calcium Level 9.4 8.5-10.1 mg/dl Total Bilirubin 0.6 0.2-1 mg/dl Direct Bilirubin 0.1 0-0.2 mg/dl Aspartate Amino Transf (AST/SGOT) 14 15-37 U/L Alanine Aminotransferase (ALT/SGPT) 21 12-78 U/L Alkaline Phosphatase 71 45-117 U/L Total Protein 8.2 6.4-8.2 gm/dl Albumin 4.3 3.4-5.0 gm/dl Lipase 154 73-393 U/L Urine Opiates Screen NEG NEG Urine Methadone, Qualitative NEG NEG Urine Barbiturates NEG NEG Urine Phencyclidine (PCP) Level NEG NEG Ur Amphetamine/Methamphetamine NEG NEG MDMA (Ecstasy) Screen NEG NEG Urine Benzodiazepines Screen NEG NEG Urine Cocaine Metabolite NEG NEG Urine Marijuana (THC) POS NEG Diagnostic Radiology Patient Name: ONEL MONTOYA Unit Number: [id number] Dictated: 12/21/161102 Transcribed: 12/21/16 110 MS Printed Date/Time: [~ rep prt dt]/[~ rep prt tm] [~ rep ct labl] - [~ rep ct ivnm] [facility] [place] [place] [address] Dictated: 12/21/16 1103 Transcribed: 12/21/16 1103 MS Printed Date/Time: [~ rep prt dt]/[~ rep prt tm] [~ rep ct labl] - [~ rep ct ivnm] [~ rep ct add3]] ABDOMEN CT WITHOUT CONTRAST CT DOSE: 175.02 mGy.cm HISTORY: Adrenal mass fever, sagittal, TECHNIQUE: Multiaxial CT images of the abdomen was performed without contrast. COMPARISON STUDY: None. FINDINGS: Lung bases are clear. Old incompletely healed fracture posterior right 11th rib. The adrenal glands are unremarkable. No evidence for adrenal mass. Liver spleen and pancreas are unremarkable. Nonobstructive bowel pattern. Kidneys negative for hydronephrosis. IMPRESSION: Negative study Electronically signed by: Walt Fernandez M.D. 12/21/2016 11:05 AM Dictated Date/Time: 12/21/2016 11:03 AM The status of this report is Signed. Draft = Not yet reviewed or approved by Radiologist. Signed = Reviewed and approved by Radiologist. <AttendingPhy>Rohit Roberts D.O.</AttendingPhy> <FamilyPhy>Yashira Arizmendi C.RRoxannNRoxannPRoxann</FamilyPhy> <PrimaryPhy>Yashira Arizmendi C.R.N.P.</PrimaryPhy> < UnitNumber>[id number]</UnitNumber> <VisitNumber>[id number]</VisitNumber> < PatientName>ONEL MONTOYA</PatientName> <DateOfBirth>1965</DateOfBirth> < Location>[facility]</Location> <ServiceDate>12/20/16</ServiceDate> <MNE>ESINDI</MNE> < OrderingPhy>Rohit Roberts D.O.</OrderingPhy> <OrderingPhyMNE>f rep ord dr mario< /OrderingPhyMNE> <DictatingPhyMNE>f rep dict dr mario</DictatingPhyMNE> <CCListMNE >f rep ct mne</CCListMNE> <AdmittingPhyMNE>f pt admit dr mario</AdmittingPhyMNE> < AttendingPhyMNE>f pt attend dr mario</AttendingPhyMNE> <ConsultingPhyMNE>f pt consult dr mario</ConsultingPhyMNE> <FamilyPhyMNE>f pt fam dr mario</FamilyPhyMNE> <OtherPhyMNE>f pt other dr mario</OtherPhyMNE> < PrimaryPhyMNE>f pt prim care dr mario</PrimaryPhyMNE> <ReferringPhyMNE>f pt referring dr mario</ReferringPhyMNE> Impression Assessment and Plan Uncontrolled hypertension/volatility associated with vomiting/renal artery stenosis--at this point I would increase her verapamil SR from 180 mg every morning to twice a day with the first evening dose tonight, and discontinue hydralazine. She has had renin level checked before but not simultaneously aldosterone, and will therefore check renin and aldosterone levels. I have added a Urine drug screen, which is positive for marijuana, and along with her symptoms would suggest cannabinoid hyperemesis syndrome. She'll be placed on normal saline with potassium chloride 20 mEq at 200 ML's per hour. Her renal artery stenosis could be further assessed with an MRA or a MAG3 renal scan. If studies are suggestive of aldosteronism, then she would be a candidate for spironolactone. Hypercholesterolemia--hold Lipitor 20 mg for now. Level of Care Telemetry Advanced Directives Existing Advance Directive: No Existing Living Will: Yes Existing Power of Building Maintenance Technician: Yes Resuscitation Status FULL RESUSCITATION VTE Prophylaxis VTE Risk Assessment Done? Y/N: Yes Risk Level: Low Given or contraindicated: SCD's
[2016-12-22] MEDS: VERAPAMIL HCL 180 MG TABCR PO SCH ×2 (07:51→20:37)
[2016-12-22] MEDS: PANTOprazole INJ 40 MG in SYRINGE 0 ML IV SCH (10:56)
--- NOTE | 2016-12-22 13:22 | Gastroenterology Progress Note ---
Progress Note Date of Service: December 22, 2016 Subjective Pt evaluation today including: conversation w/ patient, conversation w/ family , physical exam, chart review (no outpt data in [facility] EMR, reviewed current and last 2 inpt admits), lab review, review of studies, review of inpatient medication list Medications Current Inpatient Medications Medications (Trade) Dose Ordered Sig/Yeimy Route Start Time Stop Time Status Last Admin Dose Admin Potassium Chloride/Sodium Chloride (Nss + 20meq KCl 1000ml) 1,000 ml @ 150 mls/hr Q6H40M IV 12/22/16 02:00 01/21/17 01:59 12/22/16 07:51 150 MLS/HR Acetaminophen (Tylenol Tab) 650 mg Q4H PRN PO 12/22/16 01:30 01/21/17 01:29 Verapamil HCl (Calan-Sr Tab) 180 mg BID PO 12/22/16 09:00 01/21/17 08:59 12/22/16 07:51 180 MG Miscellaneous (Iv Fluids Completed) 1 ea PRN PRN N/A 12/22/16 01:45 12/22/17 01:44 Ondansetron HCl 4 mg 4 mg Q6H PRN IV 12/22/16 04:45 01/21/17 04:44 12/22/16 04:54 4 MG Pantoprazole Sodium/Syringe (Protonix Inj/ Syringe) 10 ml @ 5 mls/min DAILY@11 IV 12/22/16 11:00 01/21/17 10:59 12/22/16 10:56 5 MLS/MIN Objective Vital Signs Date Time Temp Pulse Resp B/P Pulse Ox O2 Delivery O2 Flow Rate FiO2 12/22/16 12:00 Room Air 12/22/16 11:32 36.9 83 18 118/77 96 Room Air 12/22/16 09:06 103/68 12/22/16 08:00 Room Air 12/22/16 07:44 37.0 84 16 175/94 96 Room Air 12/22/16 04:00 37.1 102 156/80 95 Room Air 12/22/16 04:00 95 Room Air 12/22/16 02:04 37.1 94 18 166/94 96 Room Air 12/22/16 01:47 100 18 155/98 96 12/22/16 01:34 102 18 147/92 5/21/17 01:06 92 18 132/89 96 Room Air 12/22/16 00:44 94 18 148/96 96 Room Air 12/22/16 00:38 96 18 132/92 96 Room Air 12/22/16 00:31 96 18 154/96 97 Room Air 12/22/16 00:15 100 18 193/118 12/21/16 23:28 91 18 184/102 96 Room Air 12/21/16 23:22 89 12/21/16 22:59 36.8 117 18 138/95 96 Room Air Laboratory Results Last 24 Hours Test 12/21/16 23:15 12/22/16 03:38 12/22/16 07:28 White Blood Count 11.23 K/uL Red Blood Count 4.68 M/uL Hemoglobin 14.3 g/dL Hematocrit 43.5 % Mean Corpuscular Volume 92.9 fL Mean Corpuscular Hemoglobin 30.6 pg Mean Corpuscular Hemoglobin Concent 32.9 g/dl Platelet Count 462 K/uL Mean Platelet Volume 9.6 fL Neutrophils (%) (Auto) 79.4 % Lymphocytes (%) (Auto) 15.6 % Monocytes (%) (Auto) 3.9 % Eosinophils (%) (Auto) 0.5 % Basophils (%) (Auto) 0.4 % Neutrophils # (Auto) 8.91 K/uL Lymphocytes # (Auto) 1.75 K/uL Monocytes # (Auto) 0.44 K/uL Eosinophils # (Auto) 0.06 K/uL Basophils # (Auto) 0.05 K/uL RDW Standard Deviation 42.8 fL RDW Coefficient of Variation 12.7 % Immature Granulocyte % (Auto) 0.2 % Immature Granulocyte # (Auto) 0.02 K/uL Sodium Level 138 mmol/L Potassium Level 3.6 mmol/L Chloride Level 101 mmol/L Carbon Dioxide Level 28 mmol/L Anion Gap 9.0 mmol/L Blood Urea Nitrogen 24 mg/dl Creatinine 0.84 mg/dl Est Creatinine Clear Calc Drug Dose 76.9 ml/min Estimated GFR () 93.9 Estimated GFR (Non- 81.0 BUN/Creatinine Ratio 28.1 Random Glucose 131 mg/dl Calcium Level 9.4 mg/dl Total Bilirubin 0.6 mg/dl Direct Bilirubin 0.1 mg/dl Aspartate Amino Transf (AST/SGOT) 14 U/L Alanine Aminotransferase (ALT/SGPT) 21 U/L Alkaline Phosphatase 71 U/L Total Protein 8.2 gm/dl Albumin 4.3 gm/dl Lipase 154 U/L Urine Opiates Screen NEG Urine Methadone, Qualitative NEG Urine Barbiturates NEG Urine Phencyclidine (PCP) Level NEG Ur Amphetamine/Methamphetamine NEG MDMA (Ecstasy) Screen NEG Urine Benzodiazepines Screen NEG Urine Cocaine Metabolite NEG Urine Marijuana (THC) POS Assessment and Plan GI consult dicatated job [id number] N/V --CT A/P 12/21/16 unrevealing, EGD 11/29/16 pill in lower esophagus o/w normal , 11/2716 cortisol nl, 12/21/16 TSH, T4, T3 normal. Could be secondary to bouts of HTN. GB etiology in the differential so check U/S GB tomorrow and if negative suggest HIDA with EF. She smorkes marijuana only about once a week so not as likely to be causing this as if smoked daily. GERD--only after vomiting has buring epigastric pain--continue PPI CRC screening --state had colonoscopy here many years ago showing diverticulosis but cannot locate a report in EMR. [facility] has another one schedule in february 2017. Dr Rodriguez assuming GI care today 12/22/16 at 1700. Other problems per hospitalist: HTN renal artery stenosis.
--- NOTE | 2016-12-22 13:49 | Progress Note ---
Subjective Date of Service: December 22, 2016. Subjective Pt evaluation today including: conversation w/ patient, conversation w/ family , physical exam, lab review, conversation w/ managing consultant, review of inpatient medication list Pain: no pain PO Intake: tolerated some breakfast, trying to eat more lunch Voiding: no voiding problems patient said that she felt well after going home, she at dinner, took her Hydralazine 25mg at 8pm around 930pm she started with vomiting again she returned to the ED, in the ED her BP was elevated but systolic was never above 200, on previous admission her BP was 250 systolic initially today her BP is much better, normal range in fact nausea better appreciate note from GI, plan for GB US and possible HIDA if US normal doubt marijuana contributing because she states she really only smokes once a week Problem List Medical Problems: (1) Malignant hypertension Status: Acute Review of Systems Constitutional: + fatigue, + weakness Abdomen: + nausea, + vomiting (this AM half way through breakfast) All Other Systems: Reviewed and Negative Medications Current Inpatient Medications Medications (Trade) Dose Ordered Sig/Yeimy Route Start Time Stop Time Status Last Admin Dose Admin Potassium Chloride/Sodium Chloride (Nss + 20meq KCl 1000ml) 1,000 ml @ 150 mls/hr Q6H40M IV 12/22/16 02:00 01/21/17 01:59 12/22/16 07:51 150 MLS/HR Acetaminophen (Tylenol Tab) 650 mg Q4H PRN PO 12/22/16 01:30 01/21/17 01:29 Verapamil HCl (Calan-Sr Tab) 180 mg BID PO 12/22/16 09:00 01/21/17 08:59 12/22/16 07:51 180 MG Miscellaneous (Iv Fluids Completed) 1 ea PRN PRN N/A 12/22/16 01:45 12/22/17 01:44 Ondansetron HCl 4 mg 4 mg Q6H PRN IV 12/22/16 04:45 01/21/17 04:44 12/22/16 04:54 4 MG Pantoprazole Sodium/Syringe (Protonix Inj/ Syringe) 10 ml @ 5 mls/min DAILY@11 IV 12/22/16 11:00 01/21/17 10:59 12/22/16 10:56 5 MLS/MIN Objective Vital Signs Date Time Temp Pulse Resp B/P Pulse Ox O2 Delivery O2 Flow Rate FiO2 12/22/16 12:00 Room Air 12/22/16 11:32 36.9 83 18 118/77 96 Room Air 12/22/16 09:06 103/68 12/22/16 08:00 Room Air 12/22/16 07:44 37.0 84 16 175/94 96 Room Air 12/22/16 04:00 37.1 102 156/80 95 Room Air 12/22/16 04:00 95 Room Air 12/22/16 02:04 37.1 94 18 166/94 96 Room Air 12/22/16 01:47 100 18 155/98 96 12/22/16 01:34 102 18 147/92 12/22/16 01:06 92 18 132/89 96 Room Air 12/22/16 00:44 94 18 148/96 96 Room Air 12/22/16 00:38 96 18 132/92 96 Room Air 12/22/16 00:31 96 18 154/96 97 Room Air 12/22/16 00:15 100 18 193/118 12/21/16 23:28 91 18 184/102 96 Room Air 12/21/16 23:22 89 12/21/16 22:59 36.8 117 18 138/95 96 Room Air Physical Exam General Appearance: WD/WN, no apparent distress Eyes: normal inspection, EOMI, sclerae normal Neck: supple, no adenopathy, no JVD, trachea midline Respiratory/Chest: chest non-tender, lungs clear, normal breath sounds, no respiratory distress, no accessory muscle use Cardiovascular: regular rate, rhythm, no edema, no gallop, no JVD, no murmur Abdomen: normal bowel sounds, non tender, soft, no organomegaly Extremities: normal range of motion, non-tender, normal inspection, no pedal edema, no calf tenderness 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: 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, no motor/sensory deficits, alert, normal mood/affect, oriented x 3 Skin: normal color, warm/dry, no rash Lymphatic: no adenopathy Laboratory Results Last 24 Hours Test 12/21/16 23:15 12/22/16 03:38 12/22/16 07:28 White Blood Count 11.23 K/uL Red Blood Count 4.68 M/uL Hemoglobin 14.3 g/dL Hematocrit 43.5 % Mean Corpuscular Volume 92.9 fL Mean Corpuscular Hemoglobin 30.6 pg Mean Corpuscular Hemoglobin Concent 32.9 g/dl Platelet Count 462 K/uL Mean Platelet Volume 9.6 fL Neutrophils (%) (Auto) 79.4 % Lymphocytes (%) (Auto) 15.6 % Monocytes (%) (Auto) 3.9 % Eosinophils (%) (Auto) 0.5 % Basophils (%) (Auto) 0.4 % Neutrophils # (Auto) 8.91 K/uL Lymphocytes # (Auto) 1.75 K/uL Monocytes # (Auto) 0.44 K/uL Eosinophils # (Auto) 0.06 K/uL Basophils # (Auto) 0.05 K/uL RDW Standard Deviation 42.8 fL RDW Coefficient of Variation 12.7 % Immature Granulocyte % (Auto) 0.2 % Immature Granulocyte # (Auto) 0.02 K/uL Sodium Level 138 mmol/L Potassium Level 3.6 mmol/L Chloride Level 101 mmol/L Carbon Dioxide Level 28 mmol/L Anion Gap 9.0 mmol/L Blood Urea Nitrogen 24 mg/dl Creatinine 0.84 mg/dl Est Creatinine Clear Calc Drug Dose 76.9 ml/min Estimated GFR () 93.9 Estimated GFR (Non- 81.0 BUN/Creatinine Ratio 28.1 Random Glucose 131 mg/dl Calcium Level 9.4 mg/dl Total Bilirubin 0.6 mg/dl Direct Bilirubin 0.1 mg/dl Aspartate Amino Transf (AST/SGOT) 14 U/L Alanine Aminotransferase (ALT/SGPT) 21 U/L Alkaline Phosphatase 71 U/L Total Protein 8.2 gm/dl Albumin 4.3 gm/dl Lipase 154 U/L Urine Opiates Screen NEG Urine Methadone, Qualitative NEG Urine Barbiturates NEG Urine Phencyclidine (PCP) Level NEG Ur Amphetamine/Methamphetamine NEG MDMA (Ecstasy) Screen NEG Urine Benzodiazepines Screen NEG Urine Cocaine Metabolite NEG Urine Marijuana (THC) POS Assessment and Plan 51 yo female just discharged for malignant hypertension and nausea and vomiting that was resolved, returns with repeated vomiting and elevated BP, although not as high as previously - Malignancy hypertension: responded well to additional dose of Verapamil, will continue Verapamil 180mg BID most recent SBP was 120mmHg h/o right sided renal artery stenosis, evaluated by vascular, no need for intervention until BP resistant to several medications no signs of adrenal tumor on CT abdomen, doubt pheochromocytoma doubt hyperaldosteronism since her potassium is normal, should have resistant hypokalemia with hyperaldosteronism for now, continue Verapamil 180 BID and follow BP - N/V: unclear etiology, recent work up with EGD (normal), CT abdomen normal, Abd x-ray normal, normal TSH, lipase and LFT appreciate note from GI plan for gall bladder US, if normal could complete HIDA scan to evaluate EF and look for dyskinesia follow up on US tomorrow and discuss further with GI
--- NOTE | 2016-12-22 15:50 | GASTROINTESTINAL CONSULTATION ---
DATE OF CONSULTATION: 12/22/2016 REASON FOR CONSULTATION: Nausea and vomiting. REQUESTING PHYSICIAN: Aron Drake MD CHIEF COMPLAINT: The patient with nausea and vomiting. HISTORY OF PRESENT ILLNESS: The patient states that since her hysterectomy, she has had hot flashes and will periodically get one vomiting episode with those, but then it would be done. However, she was admitted from 11/27/2016 to 11/29/2016 with nausea, vomiting and labile hypertension after being transferred from [facility]. GI did a consult, which I reviewed. Dr. Rodriguez did an EGD showing a pill noted in the lower esophagus, which he pushed into the stomach, otherwise normal examination. She was discharged and then readmitted 12/20/2016 to 12/21/2016 with hypertension, nausea and vomiting that resolved and came back to the ER the following evening and was readmitted with the same problem. No real epigastric pain. No vomiting of coffee grounds or blood. No bloody stools or black stools. No abdominal pain except some epigastric and/or chest discomfort, burning after some vomiting episode. No definite change in bowels. No dysphagia. Does state she has lost maybe 20 or 30 pounds in the last few months, not really trying. She stated had a low-grade fever and she was admitted this time. ALLERGIES: TO DOXYCYCLINE, IODINE, MEPERIDINE AND PROCHLORPERAZINE. MEDICATIONS ON ADMISSION: Aspirin, Lipitor, Motrin, Tylenol, hydralazine, multivitamins, and verapamil. PROBLEMS AND SURGERY: Hypertension, renal artery stenosis, and multiple sclerosis. FAMILY HISTORY: Diabetes. SOCIAL HISTORY: Positive for marijuana use but only about once a week. She states tobacco, quit 8 years ago. Ethanol occasional. REVIEW OF SYSTEMS: Constitutional, eyes, ears, nose, mouth, throat, cardiovascular, respiratory, genitourinary, musculoskeletal, integumentary neurologic, psych, endocrine, hematologic, and allergic negative except as noted above. PHYSICAL EXAMINATION: GENERAL: Female, appears her stated age, in no acute distress. VITAL SIGNS: Most recent vital signs in the chart. Temp 36.9, pulse 83, respiration is 18, BP 118/77, O2 saturation 96% on room air. EYES: Conjunctivae and lids normal. ENT: Oropharynx clear. NECK: Without obvious mass or thyroid enlargement. RESPIRATORY: Normal effort, clear to anterior auscultation. CARDIOVASCULAR: Regular rate and rhythm. EXTREMITIES: Without edema. ABDOMEN: Positive bowel sounds, soft, nontender, no obvious organomegaly or masses are appreciated. RECTAL: Not done. LYMPH: No obvious neck or groin nodes. MUSCULOSKELETAL: Digits and nails normal. SKIN: Without obvious rash or induration anteriorly. NEUROLOGIC: Cranial nerves intact. Sensation intact. PSYCHIATRIC: Recent and remote memory good. Insight and judgment good. DIAGNOSTIC DATA: On 12/20/2016; chest x-ray, emphysema. On 12/20/2016; abdomen 2 view, mild colonic retention. On 12/21/2016; CT abdomen and pelvis, right 11th rib fracture, old. Otherwise unremarkable. LABORATORY DATA: CBC on admission, white count slightly elevated at 11.2. Lipase was normal. CMP; BUN 24, glucose 131, otherwise unremarkable. Urine toxicology, positive for marijuana. On 12/21/2016; TSH was normal, T4 and T3 were normal. On 11/28/2016, cortisol was normal. IMPRESSION AND PLAN: 1. Nausea, vomiting. CT scan, esophagogastroduodenoscopy, cortisol, TSH, T4, T3 been unremarkable. This could be secondary to bouts of hypertension. Gallbladder etiology is also in the differential, so I will check an ultrasound of gallbladder tomorrow. She smokes marijuana only about once week, so that is not as likely to be causing this as would be smoking daily. 2. Gastroesophageal reflux disease---post vomiting has burning in epigastrium-- continue proton pump inhibitor for now. Other problems per hospitalist, hypertension and renal artery stenosis. [facility]
[2016-12-23] VITALS (10 sets, daily range): BP systolic 113–204; BP diastolic 65–102; PULSE 69–96; TEMP 36.9–37.4; O2SAT 96–98
[2016-12-23] MEDS: NSS + 20MEQ KCL 1000ML 1,000 ML IV SCH ×4 (00:03→16:51)
[2016-12-23 06:11] LABS: BASO % 1.6 %; BASO ABS # 0.11 K/uL (0-0.2); COMPLETE YES; EOS % 3.7 %; HEMATOCRIT 36.3 % (37-47); IG% 0.1 %; LYMPH % 43.2 %; LYMPH ABS # 3.01 K/uL (1.2-3.4); MEAN CORPUSCULAR HGB CONC 32.2 g/dl (32-36); MEAN PLATELET VOLUME 9.7 fL (7.4-10.4); MONO % 9.5 %; NEUT % 41.9 %; PLATELET COUNT 313 K/uL (130-400); RED BLOOD COUNT 3.78 M/uL (4.2-5.4); WHITE BLOOD COUNT 6.96 K/uL (4.8-10.8)
[2016-12-23 07:02] LABS: BUN/CREATININE RATIO 15.7 (10-20); CALCIUM 8.3 mg/dl (8.5-10.1); CREATININE 0.58 mg/dl (0.60-1.20); MAGNESIUM 2.1 mg/dl (1.8-2.4); POTASSIUM 3.9 mmol/L (3.5-5.1)
--- NOTE | 2016-12-23 08:26 | DIAGNOSTIC IMAGING REPORT ---
ULTRASOUND RIGHT UPPER QUADRANT ABDOMEN CLINICAL HISTORY: Nausea and vomiting. COMPARISON STUDY: Abdominal CT dated 12/21/2016. TECHNIQUE: Real-time, grayscale, and color flow sonography of the right upper quadrant of the abdomen was performed. Images are reviewed in the transverse and longitudinal planes. FINDINGS: Liver: The liver is normal in size and echotexture. There is no intrahepatic biliary ductal dilatation. Gallbladder: There are numerous small gallbladder polyps measuring up to 3 mm. The gallbladder is otherwise normal in appearance. No gallstones are identified. There is no gallbladder wall thickening or pericholecystic fluid. A sonographic Franklin's sign is reportedly absent. The common bile duct measures up to 0.4 cm in diameter. Pancreas: Visualized portions of the pancreatic head and body are normal in appearance. Right kidney: Survey images of the right kidney demonstrate normal size and echotexture. There is no hydronephrosis. Ascites: None. IMPRESSION: No acute sonographic abnormality is identified in the right upper quadrant. No gallstones are seen. Electronically signed by: Armin Sylvester M.D. 12/23/2016 8:24 AM Dictated Date/Time: 12/23/2016 8:23 AM
[2016-12-23] MEDS: VERAPAMIL HCL 180 MG TABCR PO SCH ×2 (08:50→20:24)
[2016-12-23] MEDS ORDERED: SINCALIDE INJ 1.3 MCG in SODIUM CHLORIDE 0.9% 100ML 100 ML IV STA (09:45)
--- NOTE | 2016-12-23 11:23 | DIAGNOSTIC IMAGING REPORT ---
NUCLEAR MEDICINE HEPATOBILIARY SCAN WITH GALLBLADDER EJECTION FRACTION CLINICAL HISTORY: Nausea, vomiting. COMPARISON: Right upper quadrant ultrasound December 23, [address] of the abdomen and pelvis December 21, 2016. TECHNIQUE: 5.004 mCi of technetium 99m Choletec IV was injected at 9:20 AM on December 23, 2016. Immediately following injection, imaging of the abdomen was carried out for 60 minutes in the anterior projection. At this time, 1.3 mcg of Sincalide was injected IV as per protocol. Imaging was performed for an additional 45 minutes to estimate a gallbladder ejection fraction. FINDINGS: Hepatic uptake of radiotracer is prompt and homogeneous. Activity is first identified within the common bile duct and small bowel at 15 minutes. Gallbladder activity is first identified at 30 minutes. Gallbladder ejection fraction was normal at 77%. Normal is greater than 30-35%. IMPRESSION: 1. Normal hepatobiliary scan. No evidence of acute or chronic cholecystitis. 2. Normal gallbladder ejection fraction of 77%. Electronically signed by: Flynn Shipley M.D. 12/23/2016 11:22 AM Dictated Date/Time: 12/23/2016 11:21 AM
[2016-12-23] MEDS: PANTOprazole INJ 40 MG in SYRINGE 0 ML IV SCH (11:30)
[2016-12-23] MEDS: ONDANSETRON INJ 2 MG/ML 2 ML VIAL IV PRN ×2 (11:33→17:58)
[2016-12-23] MEDS ORDERED: METOCLOPRAMIDE HCL INJ 5 MG/ML 2 ML VIAL IV PRN ×2 (13:15→19:15)
[2016-12-23] MEDS ORDERED: METOCLOPRAMIDE HCL INJ 5 MG/ML 2 ML VIAL IV STA (13:42)
--- NOTE | 2016-12-23 14:21 | Hospitalist Progress Note ---
Hospitalist Progress Note Date of Service December 23, 2016. (Sarah Deleon ., TEEC) Subjective Pt evaluation today including: conversation w/ patient, physical exam, chart review, lab review, review of studies, review of inpatient medication list Pain: 3/10 dull epigastric pain PO Intake: NPO Voiding: no voiding problems Patient complains of intractable nausea and vomiting following her HIDA scan. She also complains of a 3/10 dull pain in her epigastrium that is sometimes better after vomiting but also sometimes worse. Patient states that she been feeling okay this morning prior to the HIDA scan but ever since performing that test she has been feeling sick. The patient has been vomiting several times during my exam. She comings of coughing and palpitations when vomiting and states that she feels warm and sweaty. The patient denies fevers, chills, chest pain, claudication, wheezing, shortness of breath, dysuria, hematuria, urinary retention, paralysis, weakness, numbness and tingling. Additional Comments: See HPI for pertinent positives and negatives. All other systems reviewed and negative. (Sarah Deleon ., TEEC) Objective Vital Signs Date Time Temp Pulse Resp B/P Pulse Ox O2 Delivery O2 Flow Rate FiO2 12/23/16 12:00 98 Room Air 12/23/16 08:00 98 Room Air 12/23/16 07:45 37.1 69 20 165/96 98 Room Air 12/23/16 04:26 36.9 72 18 146/90 97 Room Air 12/23/16 04:00 Room Air 12/23/16 02:00 97 Room Air 12/22/16 23:37 37.1 68 16 124/73 97 Room Air 12/22/16 20:00 98 Room Air 12/22/16 18:54 37.2 64 17 126/73 98 12/22/16 16:00 Room Air 12/22/16 15:42 36.9 79 18 126/79 97 (Sarah Deleon PA-C) Physical Exam Notes: General appearance: +Mild distress. Well-developed, well-nourished Head: Normocephalic, atraumatic Eyes: Normal inspection, PERRL, EOMI ENT: Normal ENT inspection, hearing grossly normal, pharynx normal Neck: Supple, no JVD, trachea midline Respiratory/Chest: Lungs clear to auscultation, normal breath sounds, no respiratory distress Cardiovascular: Regular rate & rhythm, no gallop, no murmur Abdomen/GI: +Epigastrium mildly TTP. Vomiting thick, off-white vomitus and saliva. Normal bowel sounds, non-tender, soft Extremities/Musculoskeletal: Normal inspection, no calf tenderness, no pedal edema Neurological/Psych: Alert, normal mood/affect, oriented x 3 Skin: Normal color, warm/dry, no rash (Sarah Deleon .CHRIS) Laboratory Results Last 24 Hours Test 12/23/16 05:45 White Blood Count 6.96 K/uL Red Blood Count 3.78 M/uL Hemoglobin 11.7 g/dL Hematocrit 36.3 % Mean Corpuscular Volume 96.0 fL Mean Corpuscular Hemoglobin 31.0 pg Mean Corpuscular Hemoglobin Concent 32.2 g/dl Platelet Count 313 K/uL Mean Platelet Volume 9.7 fL Neutrophils (%) (Auto) 41.9 % Lymphocytes (%) (Auto) 43.2 % Monocytes (%) (Auto) 9.5 % Eosinophils (%) (Auto) 3.7 % Basophils (%) (Auto) 1.6 % Neutrophils # (Auto) 2.91 K/uL Lymphocytes # (Auto) 3.01 K/uL Monocytes # (Auto) 0.66 K/uL Eosinophils # (Auto) 0.26 K/uL Basophils # (Auto) 0.11 K/uL RDW Standard Deviation 44.7 fL RDW Coefficient of Variation 12.8 % Immature Granulocyte % (Auto) 0.1 % Immature Granulocyte # (Auto) 0.01 K/uL Sodium Level 142 mmol/L Potassium Level 3.9 mmol/L Chloride Level 111 mmol/L Carbon Dioxide Level 25 mmol/L Anion Gap 6.0 mmol/L Blood Urea Nitrogen 9 mg/dl Creatinine 0.58 mg/dl Est Creatinine Clear Calc Drug Dose 112.8 ml/min Estimated GFR () 124.6 Estimated GFR (Non- 107.5 BUN/Creatinine Ratio 15.7 Random Glucose 91 mg/dl Calcium Level 8.3 mg/dl Magnesium Level 2.1 mg/dl (Sarah Deleon PA-C) Diagnostic Results Reviewed the following studies and agree with interpretation as follows: Patient Name: ONEL MONTOYA Unit Number: [id number] Dictated: 12/23/16822 Transcribed: 12/23/16822 EV Printed Date/Time: [~ rep prt dt]/[~ rep prt tm] [~ rep ct labl] - [~ rep ct ivnm] [facility] [place] [address] Dictated: 12/23/16822 Transcribed: 12/23/16822 EV Printed Date/Time: [~ rep prt dt]/[~ rep prt tm] [~ rep ct labl] - [~ rep ct ivnm] Patient: ONEL MONTOYA Address1: [address] [place] [address] Rec: [id number] Address2: Acct ID: [id number] [facility] Zip: [place] [address] Date: 1965 Sex: F Room/Bed: [facility] Ref Phy: Yashira Arizmendi C.R.N.PRoxann SC: ScoobyT Att Phy: Aron Drake M.D. Report #: [id number] Risa Phy: Yashira Arizmendi C.R.N.PRoxann Test: ABDL Admit Phy: Aron Drake M.D. Engine Dispatcher: NICK Interpreting Phy: Armin Sylvester M.D. Diagnosis: NAUSEA AND VOMITING, UNCONTROLLED HYPERTENSION Ordering Phy: Philip Doan M.D. Service Date: 12/23/16 Admit Date: 12/21/1704/21/17 MNE: PWRSCRIBE CONF: DICTATED BY: Armin Sylvester M.D.]] CC: Philip Doan M.D. Pasquariello, Rick D M.D. Ritter, Heidi, C.R.NRoxannPRoxann Endcc: [~ rep ct add3]] ULTRASOUND RIGHT UPPER QUADRANT ABDOMEN CLINICAL HISTORY: Nausea and vomiting. COMPARISON STUDY: Abdominal CT dated 12/21/2016. TECHNIQUE: Real-time, grayscale, and color flow sonography of the right upper quadrant of the abdomen was performed. Images are reviewed in the transverse and longitudinal planes. FINDINGS: Liver: The liver is normal in size and echotexture. There is no intrahepatic biliary ductal dilatation. Gallbladder: There are numerous small gallbladder polyps measuring up to 3 mm. The gallbladder is otherwise normal in appearance. No gallstones are identified. There is no gallbladder wall thickening or pericholecystic fluid. A sonographic Franklin's sign is reportedly absent. The common bile duct measures up to 0.4 cm in diameter. Pancreas: Visualized portions of the pancreatic head and body are normal in appearance. Right kidney: Survey images of the right kidney demonstrate normal size and echotexture. There is no hydronephrosis. Ascites: None. IMPRESSION: No acute sonographic abnormality is identified in the right upper quadrant. No gallstones are seen. Electronically signed by: Armin Sylvester M.D. 12/23/2016 8:24 AM Dictated Date/Time: 12/23/2016 8:23 AM The status of this report is Signed. Draft = Not yet reviewed or approved by Radiologist. Signed = Reviewed and approved by Radiologist. <AttendingPhy>Aron Drake M.D.</AttendingPhy> <FamilyPhy>Yashira Arizmendi C.R.N.P.</FamilyPhy> <PrimaryPhy>Yashira Arizmendi C.R.N.P.</PrimaryPhy> < UnitNumber>[id number]</UnitNumber> <VisitNumber>[id number]</VisitNumber> < PatientName>HERLINDA MONTOYANDY Monet</PatientName> <DateOfBirth>1965</DateOfBirth> < Location>C.2T</Location> <ServiceDate>12/21/16</ServiceDate> <MNE>ESINDI</MNE> < OrderingPhy>Philip Doan M.D.</OrderingPhy> <OrderingPhyMNE>f rep ord dr mario </OrderingPhyMNE> <DictatingPhyMNE>f rep dict dr mario</DictatingPhyMNE> < CCListMNE>f rep ct morgane</CCListMNE> <AdmittingPhyMNE>f pt admit dr mario</ AdmittingPhyMNE> <AttendingPhyMNE>f pt attend dr mario</AttendingPhyMNE> <ConsultingPhyMNE>f pt consult dr mario</ConsultingPhyMNE> <FamilyPhyMNE>f pt fam dr mario</FamilyPhyMNE> <OtherPhyMNE>f pt other dr mario</OtherPhyMNE> < PrimaryPhyMNE>f pt prim care dr mario</PrimaryPhyMNE> <ReferringPhyMNE>f pt referring dr mario</ReferringPhyMNE> Patient Name: ONEL MONTOYA Unit Number: [id number] Dictated: 12/23/161120 Transcribed: 12/23/161120 JA Printed Date/Time: [~ rep prt dt]/[~ rep prt tm] [~ rep ct labl] - [~ rep ct ivnm] [facility] [place] [address] Dictated: 12/23/161120 Transcribed: 12/23/161120 JA Printed Date/Time: [~ rep prt dt]/[~ rep prt tm] [~ rep ct labl] - [~ rep ct ivnm] Patient: ONEL MONTOYA Address1: [address] [place] [address] Rec: [id number] Address2: Acct ID: [id number] [facility] Zip: [place] [address] Date: 1965 Sex: F Room/Bed: S242-1 Ref Phy: Yashira Arizmendi C.R.N.P. SC: C.2T Att Phy: Leonie Fairbanks MD Report #: [id number] Risa Phy: Yashira Arizmendi C.R.N.PRoxann Test: HEF Admit Phy: Aron Drake M.D. Engine Dispatcher: PROSPER Interpreting Phy: Flynn Shipley MD Diagnosis: NAUSEA AND VOMITING, UNCONTROLLED HYPERTENSION Ordering Phy: Sarah Deleon PA-C Service Date: 12/23/16 Admit Date: 12/21/1704/21/17 MNE: PWRSCRIBE CONF: DICTATED BY: Flynn Shipley MD]] CC: Sarah Deleon .CHRIS Heidi, C.R.N.PLeonie Velazquez MD Endcc: [~ rep ct add3]] NUCLEAR MEDICINE HEPATOBILIARY SCAN WITH GALLBLADDER EJECTION FRACTION CLINICAL HISTORY: Nausea, vomiting. COMPARISON: Right upper quadrant ultrasound December 23, [address] of the abdomen and pelvis December 21, 2016. TECHNIQUE: 5.004 mCi of technetium 99m Choletec IV was injected at 9:20 AM on December 23, 2016. Immediately following injection, imaging of the abdomen was carried out for 60 minutes in the anterior projection. At this time, 1.3 mcg of Sincalide was injected IV as per protocol. Imaging was performed for an additional 45 minutes to estimate a gallbladder ejection fraction. FINDINGS: Hepatic uptake of radiotracer is prompt and homogeneous. Activity is first identified within the common bile duct and small bowel at 15 minutes. Gallbladder activity is first identified at 30 minutes. Gallbladder ejection fraction was normal at 77%. Normal is greater than 30-35%. IMPRESSION: 1. Normal hepatobiliary scan. No evidence of acute or chronic cholecystitis. 2. Normal gallbladder ejection fraction of 77%. Electronically signed by: Flynn Shipley M.D. 12/23/2016 11:22 AM Dictated Date/Time: 12/23/2016 11:21 AM The status of this report is Signed. Draft = Not yet reviewed or approved by Radiologist. Signed = Reviewed and approved by Radiologist. <AttendingPhy>Leonie Fairbanks MD</AttendingPhy> <FamilyPhy>Yashira Arizmendi C.R.N.P.</FamilyPhy> <PrimaryPhy>Yashira Arizmendi C.R.NRoxannP.</PrimaryPhy> < UnitNumber>[id number]</UnitNumber> <VisitNumber>[id number]</VisitNumber> < PatientName>ONEL MONTOYA</PatientName> <DateOfBirth>1965</DateOfBirth> < Location>C.2T</Location> <ServiceDate>12/21/16</ServiceDate> <MNE>ESINDI</MNE> < OrderingPhy>Sarah Deleon PA-C</OrderingPhy> <OrderingPhyMNE>f rep ord dr mario< /OrderingPhyMNE> <DictatingPhyMNE>f rep dict dr mario</DictatingPhyMNE> <CCListMNE >f rep ct mne</CCListMNE> <AdmittingPhyMNE>f pt admit dr mario</AdmittingPhyMNE> < AttendingPhyMNE>f pt attend dr mario</AttendingPhyMNE> <ConsultingPhyMNE>f pt consult dr mario</ConsultingPhyMNE> <FamilyPhyMNE>f pt fam dr mario</FamilyPhyMNE> <OtherPhyMNE>f pt other dr mario</OtherPhyMNE> < PrimaryPhyMNE>f pt prim care dr mario</PrimaryPhyMNE> <ReferringPhyMNE>f pt referring dr mario</ReferringPhyMNE> (Sarah Deleon ., PA-C) Assessment and Plan 51 y/o female with multiple recent admissions for malignant hypertension, nausea and vomiting that had resolved. Patient had most recently been discharged on December 21 but then later returned that day for readmission. The patient continues to have nausea and vomiting as well as elevated blood pressure , although her pressures are not nearly as elevated as compared to her original admission for malignant hypertension. Hypertensive urgency, h/o right sided renal artery stenosis--stable -Admitted to telemetry. Patient remained in sinus rhythm overnight with heart rate between 70s and 80s -BP had been in normal range on 12/22. They are more elevated today however this may be secondary to the stress of her constant nausea, vomiting, and abdominal pain -Continue verapamil 180 mg PO BID -Hydralazine on hold -Abdominal CT from prior admission (12/21/16) negative, no adrenal tumor -Renin and aldosterone pending, although pt is not presenting with resistant hypokalemia Nausea and vomiting--ongoing, unknown etiology -Continue Zofran 4 mg IV q6h prn nausea -Add Reglan 5 mg IV q6h prn nausea -Recent EGD found pill in lower esophagus but otherwise normal -Abdominal CT 12/21/16 negative, abdominal x-ray 12/20 negative -Lipase WNL -GI consulted, appreciate recs: will assess gallbladder with right upper quadrant ultrasound. If negative, order HIDA scan -RUQ US no acute disease -HIDA scan normal -Check KUB to assess for obstruction -Check MRI brain combo for any lesions HLD -Continue atorvastatin 20 mg PO qd DVT prophylaxis -SCDs Code Status -Level I, FULL RESUSCITATION STATUS This chart was completed in part utilizing [employer] Speech Voice Recognition software. Attempts were made to minimize the grammatical errors, random word insertions, pronoun errors and incomplete sentences. Any formal questions or concerns about the content, text or information contained within the body of this dictation should be directly addressed to the provider for clarification. (Sarah Deleon ., CHRIS) Reviewed: Pt Seen/Exam by Me (Leonie Fairbanks MD) History Physician Clinical Coordinator Supervision Note: I interviewed and examined the patient. Discussed with PRASAD Cam and agree with findings and plan as documented in the note. Any exceptions or clarifications are listed here: Pt having significantly elevated BPs when I saw her this evening, continues to have nausea but is hungry. Does not want to try to eat anything yet bc feels like "there's a rock in my stomach." No CP or SOB. No headache. Vitals reviewed, BPs elevated RRR no mgr CTAB no wcr, breathing unlabored Ext no edema, 1+ DP pulses Abd soft NT ND +BS, no bruits 51 yo female here with malignant HTN and associated N/V. GI workup negative so far. Workup for secondary HTN negative except right CATRACHITA which was addressed by Vascular Surgery on previous admission--> no intervention needed at this time. Urine metanephrines negative, TSH, cortisol normal. Renin and aldosterone pending. Her persistent N/V seems to be related to her severely labile and elevated HTN, but need to r/o central cause of N/V. -check MRI brain -add on IV hydralazine now and then prn, IV labetalol now and then prn -add her home po hydralazine back on as was not restarted this admission, continue verapamil -appreciate GI consult -Consult Cardiology to assist with management of malignant HTN -adv diet to clears as tolerated -increase Reglan to 10mg IV q6 prn Proph-add on Lovenox Documented By: Leonie Fairbanks (Leonie Fairbanks MD)
--- NOTE | 2016-12-23 16:30 | DIAGNOSTIC IMAGING REPORT ---
KUB CLINICAL HISTORY: nausea and vomiting, no BM COMPARISON STUDY: No previous studies for comparison. FINDINGS: The soft tissues, psoas shadows, renal outlines and intestinal gas pattern appear normal. There is no evidence for bowel obstruction. No abnormal abdominal calcifications are seen. IMPRESSION: Normal study. Electronically signed by: Walt Fernandez M.D. 12/23/2016 4:29 PM Dictated Date/Time: 12/23/2016 4:29 PM
--- NOTE | 2016-12-23 17:18 | PROGRESS NOTE ---
DATE: 12/23/2016 SUBJECTIVE: The patient reports persistent nausea following her biliary scan today. The patient had a negative abdominal ultrasound and a normal biliary scan with ejection fraction earlier today. She continues to have nausea and vomiting. Currently her blood pressure is 165/96 with a pulse of 69, on multiple medications for hypertension. The patient has undergone an EGD not too long ago with a pill found in the distal esophagus that was pushed into the stomach. There were no lesions seen. She has had abdominal CAT scan and other tests, only showing some renal artery stenosis on one side. She has an MRI of the brain scheduled to see if there is any central nervous system component that could be causing her nausea and vomiting. She has been tested for adrenal problems which were negative. Cortisol was normal. TSH and T3, T4 are all normal. PHYSICAL EXAMINATION: ABDOMEN: Shows umbilical scar. There is some tenderness in the central abdomen. No masses or rebound. No hepatosplenomegaly. IMPRESSION: The patient has severe hypertension with associated nausea and vomiting of unclear etiology. I agree with doing an MRI of the brain to look for central etiology. She does have a vague history of multiple sclerosis, although this is not confirmed and she has failed to be able to tolerate 2 different medications that were prescribed for multiple sclerosis. Hopefully the MRI of the brain will help clarify this as well as rule out a central lesion that could cause nausea and vomiting. In addition, I have ordered blood test for serotonins and a urine test for porphyrin screen. We will continue to follow patient. GERARD
[2016-12-23] MEDS ORDERED: HydrALAZINE HCL 20 MG/ML VIAL ONE (18:35)
[2016-12-23] MEDS ORDERED: HydrALAZINE HCL 20 MG/ML VIAL IV. PRN (18:45)
[2016-12-23] MEDS ORDERED: LABETALOL HCL IV 5 MG/ML 20ML IV PRN (19:15)
[2016-12-23] MEDS: ATORVASTATIN 20 MG TAB PO SCH (20:24)
[2016-12-23] MEDS ORDERED: GADAVIST IV PRN (22:00)
--- NOTE | 2016-12-23 22:08 | DIAGNOSTIC IMAGING REPORT ---
MRI OF THE BRAIN WITHOUT AND WITH IV CONTRAST CLINICAL HISTORY: intractable nausea and vomiting nausea. Vomiting. COMPARISON STUDY: No previous studies for comparison. TECHNIQUE: Utilizing a 1.5 Niyah magnet and dedicated coil, multiplanar, multiecho imaging of the brain was performed pre and postcontrast administration. IV administration of 8.5 mL of Gadavist contrast was uneventful. FINDINGS: There are multiple foci of increased signal within the periventricular and deep white matter regions. This includes the optic radiations as well as subcortical regions of both cerebral hemispheres. Ventricular system is midline. Diffusion-weighted images are considered negative for an acute ischemic insult. postcontrast images are considered negative for abnormal postcontrast enhancement. Sella and parasellar regions are unremarkable. Optic chiasm is unremarkable. IMPRESSION: 1. Multiple foci of increased signal within the periventricular and deep white matter regions. 2. No evidence for abnormal postcontrast enhancement. 3. The appearance is suggestive of a demyelinating disorder Electronically signed by: Walt Fernandez M.D. 12/23/2016 10:06 PM Dictated Date/Time: 12/23/2016 10:03 PM
[2016-12-23] MEDS: ENOXAPARIN 40 MG/0.4 ML SYR SQ SCH (22:52)
[2016-12-24] VITALS (10 sets, daily range): BP systolic 107–166; BP diastolic 67–92; PULSE 63–80; TEMP 36–37.2; O2SAT 16–98
[2016-12-24] MEDS: NSS + 20MEQ KCL 1000ML 1,000 ML IV SCH ×2 (04:40→12:52)
[2016-12-24 07:54] LABS: BASO % 1.2 %; BASO ABS # 0.09 K/uL (0-0.2); COMPLETE YES; EOS % 2.2 %; HEMATOCRIT 36.6 % (37-47); IG% 0.1 %; LYMPH % 39.4 %; LYMPH ABS # 3.05 K/uL (1.2-3.4); MEAN CELL VOLUME 93.1 fL (80-100); MEAN CORPUSCULAR HEMOGLOBIN 31.3 pg (25-34); MEAN CORPUSCULAR HGB CONC 33.6 g/dl (32-36); MEAN PLATELET VOLUME 9.7 fL (7.4-10.4); MONO % 12.3 %; NEUT % 44.8 %; PLATELET COUNT 372 K/uL (130-400); RED BLOOD COUNT 3.93 M/uL (4.2-5.4); WHITE BLOOD COUNT 7.74 K/uL (4.8-10.8)
[2016-12-24 08:20] LABS: BUN/CREATININE RATIO 15.7 (10-20); CREATININE 0.75 mg/dl (0.60-1.20); MAGNESIUM 1.9 mg/dl (1.8-2.4); POTASSIUM 3.5 mmol/L (3.5-5.1)
[2016-12-24] MEDS: VERAPAMIL HCL 180 MG TABCR PO SCH (08:21)
[2016-12-24] MEDS: ASPIRIN 81 MG CHEW PO SCH (08:22)
[2016-12-24 08:30] LABS: CALCIUM 9.1 mg/dl (8.5-10.1)
--- NOTE | 2016-12-24 10:15 | Neurology Consultation ---
Neurology Consultation Date of Consultation: December 24, 2016. Attending Physician: Leonie Fairbanks MD Primary Care Physician: Yashira Arizmendi C.R.N.P. Reason for Consultation: Nausea and vomiting, history of MS History of Present Illness Source: patient, hospital records The patient is a 51-year-old female with a reported history of multiple sclerosis diagnosed about [address] Mikki Jones. The patient recalls presenting with right-sided numbness and weakness at that time, primarily the face and arm that persisted for about 2 weeks and resolved. She continues to experience episodic, but brief, paresthesias, primarily the right side. No known history of optic neuritis although she does have a history of a significant cataract affecting the right eye which affects her vision. The patient's MS has previously been treated with Copaxone and Avonex. Copaxone was not tolerated due to development of injection site reactions. Avonex was not tolerated due to persistent flulike symptoms. The patient has not followed with Dr. Sin for at least 4-5 years. She has not been taking any type of disease modifying therapy. However, other than episodic paresthesias, the patient does not really complain of other symptoms that would strongly suggest MS exacerbations or significant functional impairment or disability. Past medical history also notable for hypertension as well as a recent issue with refractory nausea and vomiting. The patient had presented to the emergency department on December 20 with a blood pressure of 223/134 end associated nausea and vomiting. She was treated for malignant hypertension and given a prescription for verapamil. She presented to the emergency department the following day with the same symptoms. She has had a consultation with gastroenterology and an obvious cause for her refractory nausea and vomiting has not been determined. The possibility of a central nervous system cause is currently in consideration. I did review the images and radiologist's interpretation of the recently completed brain MRI. The study does reveal multiple foci of increased T2/FLAIR signal within the cerebral hemispheres, periventricularly, subcortically, and juxtacortically. No abnormal post contrast enhancement suggestive of active lesions. No priors available for comparison. No evidence of hydrocephalus. The cerebral aqueduct is patent. No evidence of neoplasm or vasogenic edema. Past Medical/Surgical History Medical Problems: (1) Malignant hypertension Status: Acute Family History Family history notable for diabetes mellitus and hypertension Father: coronary artery disease, stroke Mother: asthma, COPD Sibling(s): coronary artery disease, stroke Social History Smoking Status: Current every day smoker Smokeless Tobacco Use: No Alcohol Use: socially Drug Use: marijuana Marital Status: Housing Status: lives with family Occupation Status: employed Allergies Coded Allergies: Doxycycline (Verified Allergy, Unknown, rash, 12/21/16) Iodinated Diagnostic Agents (Verified Allergy, Unknown, `, 12/21/16) Latex1 -Allergic Contact Dermititis (Verified Allergy, Unknown, RASH, 12/21) Meperidine (Verified Allergy, Unknown, HIVES, VOMITING, 12/21/16) Prochlorperazine (Verified Allergy, Unknown, ., 06/16/14) [place] (Verified Allergy, Unknown, HIVES, 11/27/16) Tomato (Verified Allergy, Unknown, HIVES, 11/27/16) Uncoded Allergies: Hernandez Beans (Allergy, Unknown, HIVES, 11/27/16) Current Inpatient Medications Current Inpatient Medications Medications (Trade) Dose Ordered Sig/Yeimy Route Start Time Stop Time Status Last Admin Dose Admin Potassium Chloride/Sodium Chloride (Nss + 20meq KCl 1000ml) 1,000 ml @ 100 mls/hr Q10H IV 12/22/16 02:00 12/24/16 04:40 100 MLS/HR Acetaminophen (Tylenol Tab) 650 mg Q4H PRN PO 12/22/16 01:30 01/21/17 01:29 12/23/16 18:21 650 MG Verapamil HCl (Calan-Sr Tab) 180 mg BID PO 12/22/16 09:00 01/21/17 08:59 12/24/16 08:21 180 MG Miscellaneous (Iv Fluids Completed) 1 ea PRN PRN N/A 12/22/16 01:45 12/22/17 01:44 Ondansetron HCl 4 mg 4 mg Q6H PRN IV 12/22/16 04:45 01/21/17 04:44 12/23/16 17:58 4 MG Pantoprazole Sodium/Syringe (Protonix Inj/ Syringe) 10 ml @ 5 mls/min DAILY@11 IV 12/22/16 11:00 01/21/17 10:59 12/23/16 11:30 5 MLS/MIN Hydralazine HCl (HydrALAZINE INJ) 10 mg Q8H PRN IV. 12/23/16 18:45 01/22/17 18:44 Hydralazine HCl (Apresoline Tab) 25 mg BID PO 12/24/16 09:00 01/23/17 08:59 12/24/16 08:21 25 MG Aspirin (Aspirin Chew) 81 mg DAILY PO 12/24/16 09:00 01/23/17 08:59 12/24/16 08:22 81 MG Atorvastatin Calcium (Lipitor Tab) 20 mg HS PO 12/23/16 21:00 01/22/17 20:59 12/23/16 20:24 20 MG Metoclopramide HCl (Reglan Inj) 10 mg Q6H PRN IV 12/23/16 19:15 01/22/17 19:14 Labetalol HCl (Normodyne IV) 20 mg Q4H PRN IV 12/23/16 19:15 01/22/17 19:14 12/23/16 19:32 20 MG Enoxaparin Sodium (Lovenox Inj) 40 mg Q24H SQ 12/23/16 22:00 01/22/17 21:59 12/23/16 22:52 40 MG Gadobutrol (Gadavist) 6 mmol UD PRN IV 12/23/16 22:00 12/27/16 21:59 Review of Systems The patient denies headache, fever, chills, chest pain, shortness of breath, palpitations, diarrhea, urinary incontinence, muscle pain, joint pain, rash, depression or anxiety A full 10 point review of systems was obtained on this patient with pertinent positives and negatives described in the history of present illness and otherwise listed above Physical Exam Vital Signs (Past 24 Hrs): Date Time Temp Pulse Resp B/P Pulse Ox O2 Delivery O2 Flow Rate FiO2 12/24/16 08:35 37.2 70 20 119/82 98 Room Air 12/24/16 08:00 95 Room Air 12/24/16 04:00 Room Air 12/24/16 03:11 36.8 74 16 107/67 96 Room Air 12/24/16 00:01 Room Air 12/23/16 23:12 36.9 80 16 113/65 96 Room Air 12/23/16 20:25 156/92 12/23/16 20:00 Room Air 12/23/16 19:25 37.0 96 18 188/102 96 Room Air 12/23/16 16:28 37.4 88 20 204/91 96 Room Air 0.0 12/23/16 16:00 97 Room Air 12/23/16 12:00 98 Room Air The patient is a well-developed middle-aged female, no acute distress area she is alert and oriented to person place and time. Attention and concentration normal. Recent and remote memory intact. She is able to name objects and repeat phrases. Gen. fund of knowledge and vocabulary normal. Visual pradhan full to confrontation. Pupils equal round reactive to light and accommodation. There is no afferent pupillary defect. Eye movements normal. There is no nystagmus. There is normal facial symmetry and strength. Facial sensation intact bilaterally. Hearing intact bilaterally. Palate elevates to midline. Tongue protrudes to midline. Shoulder shrug strength intact bilaterally. Sensation intact to light touch, temperature, vibration, and proprioception in all 4 limbs. Deep tendon reflexes are 2+ for the upper and lower limbs bilaterally. Plantar responses downgoing bilaterally. There is no dysmetria with finger to nose or heel to patel bilaterally. Ophthalmoscopic examination reveals a cataract which of skewers adequate view of the fundus of the right eye. There is no papilledema or evidence of hemorrhage with funduscopic exam of the left eye. Carotid pulses intact bilaterally, no bruits. Musculoskeletal examination reveals normal strength and tone for all 4 limbs proximally and distally. No atrophy. No abnormal movements observed. Gait and station normal. Laboratory Results Past 24 Hours: 12/24/16 07:25 Red Blood Count 3.93, Mean Corpuscular Volume 93.1, Mean Corpuscular Hemoglobin 31.3, Mean Corpuscular Hemoglobin Concent 33.6, Mean Platelet Volume 9.7, Neutrophils (%) (Auto) 44.8, Lymphocytes (%) (Auto) 39.4, Monocytes (%) (Auto) 12.3, Eosinophils (%) (Auto) 2.2, Basophils (%) (Auto) 1.2, Neutrophils # (Auto ) 3.47, Lymphocytes # (Auto) 3.05, Monocytes # (Auto) 0.95, Eosinophils # (Auto ) 0.17, Basophils # (Auto) 0.09 12/24/16 07:25 Test 12/23/16 16:50 12/23/16 18:40 12/24/16 07:25 White Blood Count 7.74 K/uL (4.8-10.8) Red Blood Count 3.93 M/uL (4.2-5.4) Hemoglobin 12.3 g/dL (12.0-16.0) Hematocrit 36.6 % (37-47) Mean Corpuscular Volume 93.1 fL (80-100) Mean Corpuscular Hemoglobin 31.3 pg (25-34) Mean Corpuscular Hemoglobin Concent 33.6 g/dl (32-36) Platelet Count 372 K/uL (130-400) Mean Platelet Volume 9.7 fL (7.4-10.4) Neutrophils (%) (Auto) 44.8 % Lymphocytes (%) (Auto) 39.4 % Monocytes (%) (Auto) 12.3 % Eosinophils (%) (Auto) 2.2 % Basophils (%) (Auto) 1.2 % Neutrophils # (Auto) 3.47 K/uL (1.4-6.5) Lymphocytes # (Auto) 3.05 K/uL (1.2-3.4) Monocytes # (Auto) 0.95 K/uL (0.11-0.59) Eosinophils # (Auto) 0.17 K/uL (0-0.5) Basophils # (Auto) 0.09 K/uL (0-0.2) RDW Standard Deviation 42.5 fL (36.4-46.3) RDW Coefficient of Variation 12.4 % (11.5-14.5) Immature Granulocyte % (Auto) 0.1 % Immature Granulocyte # (Auto) 0.01 K/uL (0.00-0.02) Anion Gap 10.0 mmol/L (3-11) Est Creatinine Clear Calc Drug Dose 84.7 ml/min Estimated GFR () 107.7 Estimated GFR (Non- 92.9 BUN/Creatinine Ratio 15.7 (10-20) Calcium Level 9.1 mg/dl (8.5-10.1) Magnesium Level 1.9 mg/dl (1.8-2.4) Impression Nausea and vomiting occurring in the context of hypertensive urgency. She does not have headache or other signs or symptoms suggestive of increased intracranial pressure. There is no evidence of hydrocephalus, subarachnoid hemorrhage, or neoplasm on recently completed brain MRI. The study does reveal changes consistent with her previous diagnosis of multiple sclerosis. However, no evidence of abnormal post contrast enhancement or disease activity. Furthermore, there are no specific abnormalities around the floor of the fourth ventricle or involving the so-called "area postrema" that may otherwise cause refractory nausea and vomiting. Plan Although I do not see evidence of papilledema with limited ophthalmoscopic examination, I'm unable to exclude increased intracranial pressure as a cause of this patient's refractory nausea and vomiting. Therefore, I have recommended a lumbar puncture with opening pressure for further assessment of this possible diagnosis. If her pressure is significantly elevated would consider pseudotumor cerebri. However, she does not really complain of headache and has not been experiencing any new visual changes or transient visual obscurations that may otherwise occur with this diagnosis. I would also include an MS profile with CSF analysis. Other than symptomatic treatment with anti-emetics and Reglan I do not really have any further specific recommendations for her management. Furthermore, at this point in time, it is not really clear to me if this patient should resume disease modifying therapy for her MS. She will need additional outpatient follow-up. Please contact me if I may be of further assistance.
--- NOTE | 2016-12-24 10:21 | Cardiology Consultation ---
Cardiology Consultation Date of Consultation: December 24, 2016. Requesting Physician: Dr. Fairbanks Reason for Consultation: Severe hypertension Pt evaluation today including: conversation w/ patient, physical exam, lab review, review of studies, review of inpatient medication list History of Present Illness This is a very pleasant 51-year-old woman with a history of coronary artery disease identified at catheterization in June 2014. At that time she presented with chest tightness and throat choking, her cardiac enzymes were elevated to a troponin of just over 1 and she went to the catheterization lab where she was identified as having 30% mid right coronary artery stenosis as well as 30% proximal LAD stenosis, her left ventricular ejection fraction was normal. She has risk factors of a family history (with a sister who had what she reports as a myocardial infarction) as well as hypertension. She presented 11/27/2016 with one week of nausea and vomiting associated with epigastric discomfort and severe hypertension to [facility] with a blood pressure of 233 systolic. She was placed on a Cardizem drip and transferred here. Her cardiac enzymes were somewhat abnormal in a decreasing pattern with a peak here of 0.105, a submaximal stress echo was negative for ischemia. Her BP was well controlled at discharge on Verapamil 180 mg daily. She now returns on 12/20/2016 with symptoms of chest discomfort, shortness of breath and sweats and chills as well as vomiting. Evidently she vomited her morning verapamil, and she presented with severe hypertension with a blood pressure in the emergency room as high as 250/129. Her initial troponin was negative this admission. Her blood pressure remained elevated for several days, but is now under better control. She is currently on Hydralazine 25 mg twice a day, labetalol 20 mg every 4 hours when necessary intravenously which she has been getting and verapamil HCl long-acting 180 mg twice a day. She was to buy a blood pressure cuff at home, after her last admission, however she was not able to prior to her being admitted therefore do not know her blood pressures at home. Currently she feels well, she has been feeling well since her blood pressure was controlled. She seems to be tolerating her medications well. Past Medical/Surgical History (1) Atherosclerosis Nos (2) Hypertension Nos (3) Multiple Sclerosis Family History Cancer Diabetes mellitus Heart disease Hypertension Lung disease Social History Smoking Status: Former Smoker History of Alcohol Use: Yes (occassionaly beer) Review of Systems Constitutional: No fever, No weakness, No weight loss Respiratory: No cough, No dyspnea on exertion, No shortness of breath, No wheezing Cardiac: No PND, No chest pain, No edema, No orthopnea, No palpitations Abdomen: No GI bleeding, No diarrhea, No nausea, No pain, No vomiting Female : No problem reported Neurologic: No balance problems, No numbness/tingling, No paralysis, No weakness Heme: No abnormal bleeding/bruising, No clotting problems Endo: No fatigue Skin: No problem reported All Other Systems: Reviewed and Negative Allergies Coded Allergies: Doxycycline (Verified Allergy, Unknown, rash, 12/21/16) Iodinated Diagnostic Agents (Verified Allergy, Unknown, `, 12/21/16) Latex1 -Allergic Contact Dermititis (Verified Allergy, Unknown, RASH, 12/21) Meperidine (Verified Allergy, Unknown, HIVES, VOMITING, 12/21/16) Prochlorperazine (Verified Allergy, Unknown, ., 06/16/14) [place] (Verified Allergy, Unknown, HIVES, 11/27/16) Tomato (Verified Allergy, Unknown, HIVES, 11/27/16) Uncoded Allergies: Hernandez Beans (Allergy, Unknown, HIVES, 11/27/16) Medications Current Inpatient Medications Medications (Trade) Dose Ordered Sig/Yeimy Route Start Time Stop Time Status Last Admin Dose Admin Potassium Chloride/Sodium Chloride (Nss + 20meq KCl 1000ml) 1,000 ml @ 100 mls/hr Q10H IV 12/22/16 02:00 12/24/16 04:40 100 MLS/HR Acetaminophen (Tylenol Tab) 650 mg Q4H PRN PO 12/22/16 01:30 01/21/17 01:29 12/23/16 18:21 650 MG Verapamil HCl (Calan-Sr Tab) 180 mg BID PO 12/22/16 09:00 01/21/17 08:59 12/24/16 08:21 180 MG Miscellaneous (Iv Fluids Completed) 1 ea PRN PRN N/A 12/22/16 01:45 12/22/17 01:44 Ondansetron HCl 4 mg 4 mg Q6H PRN IV 12/22/16 04:45 01/21/17 04:44 12/23/16 17:58 4 MG Pantoprazole Sodium/Syringe (Protonix Inj/ Syringe) 10 ml @ 5 mls/min DAILY@11 IV 12/22/16 11:00 01/21/17 10:59 12/23/16 11:30 5 MLS/MIN Hydralazine HCl (HydrALAZINE INJ) 10 mg Q8H PRN IV. 12/23/16 18:45 01/22/17 18:44 Hydralazine HCl (Apresoline Tab) 25 mg BID PO 12/24/16 09:00 01/23/17 08:59 12/24/16 08:21 25 MG Aspirin (Aspirin Chew) 81 mg DAILY PO 12/24/16 09:00 01/23/17 08:59 12/24/16 08:22 81 MG Atorvastatin Calcium (Lipitor Tab) 20 mg HS PO 12/23/16 21:00 01/22/17 20:59 12/23/16 20:24 20 MG Metoclopramide HCl (Reglan Inj) 10 mg Q6H PRN IV 12/23/16 19:15 01/22/17 19:14 Labetalol HCl (Normodyne IV) 20 mg Q4H PRN IV 12/23/16 19:15 01/22/17 19:14 12/23/16 19:32 20 MG Enoxaparin Sodium (Lovenox Inj) 40 mg Q24H SQ 12/23/16 22:00 01/22/17 21:59 12/23/16 22:52 40 MG Gadobutrol (Gadavist) 6 mmol UD PRN IV 12/23/16 22:00 12/27/16 21:59 Physical Exam Vital Signs Past 12 Hours Date Time Temp Pulse Resp B/P Pulse Ox O2 Delivery O2 Flow Rate FiO2 12/24/16 04:00 Room Air 12/24/16 03:11 36.8 74 16 107/67 96 Room Air 12/24/16 00:01 Room Air 12/23/16 23:12 36.9 80 16 113/65 96 Room Air 12/23/16 20:25 156/92 Constitutional: General Apperance: heathly-appearing Level of Distress: NAD Psychiatric: Mental Status: active & alert Head: normocephalic Eyes: EOM: EOMI ENMT: normal ENT inspection, hearing grossly normal Neck: supple, no masses Lungs: Respiratory effort: no dyspnea, good air movement Auscultation: breath sounds normal, no wheezing Cardiovascular: Heart Auscultation: RRR, no murmurs, no rubs, no gallops Peripheral Pulses: Bruits: none appreciated Abdomen: Bowel Sounds: normal Inspection & Palpation: soft, no tenderness, guarding & rebound, no masses Musculoskeletal: normal strength (5/5 throughout) Extremities: no edema Neurologic: Cranial Nerves: grossly intact Sensation: grossly intact Data Laboratory Results: Last 24 Hours Test 12/23/16 16:50 12/23/16 18:40 12/24/16 07:25 White Blood Count 7.74 K/uL Red Blood Count 3.93 M/uL Hemoglobin 12.3 g/dL Hematocrit 36.6 % Mean Corpuscular Volume 93.1 fL Mean Corpuscular Hemoglobin 31.3 pg Mean Corpuscular Hemoglobin Concent 33.6 g/dl Platelet Count 372 K/uL Mean Platelet Volume 9.7 fL Neutrophils (%) (Auto) 44.8 % Lymphocytes (%) (Auto) 39.4 % Monocytes (%) (Auto) 12.3 % Eosinophils (%) (Auto) 2.2 % Basophils (%) (Auto) 1.2 % Neutrophils # (Auto) 3.47 K/uL Lymphocytes # (Auto) 3.05 K/uL Monocytes # (Auto) 0.95 K/uL Eosinophils # (Auto) 0.17 K/uL Basophils # (Auto) 0.09 K/uL RDW Standard Deviation 42.5 fL RDW Coefficient of Variation 12.4 % Immature Granulocyte % (Auto) 0.1 % Immature Granulocyte # (Auto) 0.01 K/uL Sodium Level 136 mmol/L Potassium Level 3.5 mmol/L Chloride Level 102 mmol/L Carbon Dioxide Level 24 mmol/L Anion Gap 10.0 mmol/L Blood Urea Nitrogen 12 mg/dl Creatinine 0.75 mg/dl Est Creatinine Clear Calc Drug Dose 84.7 ml/min Estimated GFR () 107.7 Estimated GFR (Non- 92.9 BUN/Creatinine Ratio 15.7 Random Glucose 111 mg/dl Magnesium Level 1.9 mg/dl EKG: This morning sinus rhythm at 67 bpm with no significant abnormality Telemetry reviewed: Sinus rhythm, no significant abnormality Assessment & Plan #1. Hypertension: She has severe and labile hypertension. I can't tell if the blood pressure is secondary to her being extremely ill and under stress, or the other way around. It may be that the catecholamine rise related to an acute illness or exacerbation of symptoms accelerate or hypertension. I think would be reasonable to start a beta blaine, and would prefer to not have her on a beta blaine and a calcium channel blaine (she is currently getting when necessary labetalol but we need to switch that to an oral beta blaine). I don' t think she has been on a beta blaine before. I'm therefore going to start metoprolol tartrate this evening and continue her verapamil. We can continue when necessary labetalol if needed and her hydralazine for now. Thank you for allowing me to participate in her care.
[2016-12-24] MEDS: PANTOprazole INJ 40 MG in SYRINGE 0 ML IV SCH (11:10)
--- NOTE | 2016-12-24 13:50 | Hospitalist Progress Note ---
Hospitalist Progress Note Date of Service December 24, 2016. (Sarah Deleon ., CHRIS) Subjective Pt evaluation today including: conversation w/ patient, physical exam, chart review, lab review, review of studies, review of inpatient medication list Pain: None PO Intake: Tolerating regular PO diet now Voiding: no voiding problems Patient feels significantly better today. She still is somewhat fatigued but is otherwise doing well. She denies any nausea or vomiting today and has been able to eat breakfast and a regular diet lunch. She denies any abdominal pain today as well. She denies any lightheadedness palpitations or cough today. The patient denies fevers, chills, sweats, chest pain, palpitations, claudication, cough, wheezing, shortness of breath, nausea, vomiting, abdominal pain, dysuria, hematuria, urinary retention, paralysis, weakness, numbness and tingling. Additional Comments: See HPI for pertinent positives and negatives. All other systems reviewed and negative. (Sarah Deleon PA-C) Objective Vital Signs Date Time Temp Pulse Resp B/P Pulse Ox O2 Delivery O2 Flow Rate FiO2 12/24/16 12:22 36.0 80 90 156/76 16 Room Air 94 12/24/16 12:00 97 Room Air 12/24/16 08:35 37.2 70 20 119/82 98 Room Air 12/24/16 08:00 95 Room Air 12/24/16 04:00 Room Air 12/24/16 03:11 36.8 74 16 107/67 96 Room Air 12/24/16 00:01 Room Air 12/23/16 23:12 36.9 80 16 113/65 96 Room Air 12/23/16 20:25 156/92 12/23/16 20:00 Room Air 12/23/16 19:25 37.0 96 18 188/102 96 Room Air 12/23/16 16:28 37.4 88 20 204/91 96 Room Air 0.0 12/23/16 16:00 97 Room Air (Sarah Deleon PA-C) Physical Exam Notes: General appearance: Well-developed, well-nourished, no acute distress Head: Normocephalic, atraumatic Eyes: Normal inspection, PERRL, EOMI ENT: Normal ENT inspection, hearing grossly normal, pharynx normal Neck: Supple, no JVD, trachea midline Respiratory/Chest: Lungs clear to auscultation, normal breath sounds, no respiratory distress Cardiovascular: Regular rate & rhythm, no gallop, no murmur Abdomen/GI: Normal bowel sounds, non-tender, soft Extremities/Musculoskeletal: Normal inspection, no calf tenderness, no pedal edema Neurological/Psych: Alert, normal mood/affect, oriented x 3 Skin: Normal color, warm/dry, no rash (Sarah Deleon .CHRIS) Laboratory Results Last 24 Hours Test 12/23/16 16:50 12/23/16 18:40 12/24/16 07:25 12/24/16 10:15 White Blood Count 7.74 K/uL Red Blood Count 3.93 M/uL Hemoglobin 12.3 g/dL Hematocrit 36.6 % Mean Corpuscular Volume 93.1 fL Mean Corpuscular Hemoglobin 31.3 pg Mean Corpuscular Hemoglobin Concent 33.6 g/dl Platelet Count 372 K/uL Mean Platelet Volume 9.7 fL Neutrophils (%) (Auto) 44.8 % Lymphocytes (%) (Auto) 39.4 % Monocytes (%) (Auto) 12.3 % Eosinophils (%) (Auto) 2.2 % Basophils (%) (Auto) 1.2 % Neutrophils # (Auto) 3.47 K/uL Lymphocytes # (Auto) 3.05 K/uL Monocytes # (Auto) 0.95 K/uL Eosinophils # (Auto) 0.17 K/uL Basophils # (Auto) 0.09 K/uL RDW Standard Deviation 42.5 fL RDW Coefficient of Variation 12.4 % Immature Granulocyte % (Auto) 0.1 % Immature Granulocyte # (Auto) 0.01 K/uL Sodium Level 136 mmol/L Potassium Level 3.5 mmol/L Chloride Level 102 mmol/L Carbon Dioxide Level 24 mmol/L Anion Gap 10.0 mmol/L Blood Urea Nitrogen 12 mg/dl Creatinine 0.75 mg/dl Est Creatinine Clear Calc Drug Dose 84.7 ml/min Estimated GFR () 107.7 Estimated GFR (Non- 92.9 BUN/Creatinine Ratio 15.7 Random Glucose 111 mg/dl Calcium Level 9.1 mg/dl Magnesium Level 1.9 mg/dl Test 12/24/16 11:55 Random Glucose 169 mg/dl (Sarah Deleon PA-C) Diagnostic Results Reviewed the following studies and agree with interpretation as follows: Patient Name: ONEL MONTOYA Unit Number: [id number] Dictated: 12/23/161628 Transcribed: 12/23/161628 MS Printed Date/Time: [~ rep prt dt]/[~ rep prt tm] [~ rep ct labl] - [~ rep ct ivnm] [facility] [place] [address] Dictated: 12/23/161628 Transcribed: 12/23/161628 MS Printed Date/Time: [~ rep prt dt]/[~ rep prt tm] [~ rep ct labl] - [~ rep ct ivnm] Patient: ONEL MONTOYA Address1: [address] [place] [address] Rec: [id number] Address2: Acct ID: [id number] [facility] Zip: [place] [address] Date: 1965 Sex: F Room/Bed: [facility] Ref Phy: Yashira Arizmendi C.R.N.PRoxann SC: C.2T Att Phy: Leonie Fairbanks MD Report #: [id number] Risa Phy: Yashira Arizmendi C.R.N.PRoxann Test: KUB Admit Phy: Aron Drake M.D. Licensed Weigher: DOLLY Interpreting Phy: Walt Fernandez M.D. Diagnosis: NAUSEA AND VOMITING, UNCONTROLLED HYPERTENSION Ordering Phy: Sarah Deleon PA-C Service Date: 12/23/16 Admit Date: 12/21/1704/21/17 MNE: PWRSCRIBE CONF: DICTATED BY: Walt Fernandez M.D.]] CC: Sarah Deleon .CHRIS Heidi, C.R.N.PLeonie Velazquez MD Endcc: [~ rep ct add3]] KUB CLINICAL HISTORY: nausea and vomiting, no BM COMPARISON STUDY: No previous studies for comparison. FINDINGS: The soft tissues, psoas shadows, renal outlines and intestinal gas pattern appear normal. There is no evidence for bowel obstruction. No abnormal abdominal calcifications are seen. IMPRESSION: Normal study. Electronically signed by: Walt Fernandez M.D. 12/23/2016 4:29 PM Dictated Date/Time: 12/23/2016 4:29 PM The status of this report is Signed. Draft = Not yet reviewed or approved by Radiologist. Signed = Reviewed and approved by Radiologist. <AttendingPhy>Leonie Fairbanks MD</AttendingPhy> <FamilyPhy>Yashira Arizmendi C.R.NRoxannPRoxann</FamilyPhy> <PrimaryPhy>Yashira Arizmendi C.R.N.P.</PrimaryPhy> < UnitNumber>[id number]</UnitNumber> <VisitNumber>[id number]</VisitNumber> < PatientName>ONEL MONTOYA</PatientName> <DateOfBirth>1965</DateOfBirth> < Location>C.2T</Location> <ServiceDate>12/21/16</ServiceDate> <MNE>ESINDI</MNE> < OrderingPhy>Sarah Deleon PA-C</OrderingPhy> <OrderingPhyMNE>f rep ord dr mario< /OrderingPhyMNE> <DictatingPhyMNE>f rep dict dr mario</DictatingPhyMNE> <CCListMNE >f rep ct mne</CCListMNE> <AdmittingPhyMNE>f pt admit dr mario</AdmittingPhyMNE> < AttendingPhyMNE>f pt attend dr mario</AttendingPhyMNE> <ConsultingPhyMNE>f pt consult dr mario</ConsultingPhyMNE> <FamilyPhyMNE>f pt fam dr mario</FamilyPhyMNE> <OtherPhyMNE>f pt other dr mario</OtherPhyMNE> < PrimaryPhyMNE>f pt prim care dr mario</PrimaryPhyMNE> <ReferringPhyMNE>f pt referring dr mario</ReferringPhyMNE> Patient Name: ONEL MONTOYA Unit Number: [id number] Dictated: 12/23/162202 Transcribed: 12/23/162202 MS Printed Date/Time: [~ rep prt dt]/[~ rep prt tm] [~ rep ct labl] - [~ rep ct ivnm] [facility] Radiology Department [place], [place] [id number] Dictated: 12/23/162202 Transcribed: 12/23/162202 MS Printed Date/Time: [~ rep prt dt]/[~ rep prt tm] [~ rep ct labl] - [~ rep ct ivnm] Patient: ONEL MONTOYA Address1: [address] [place] [address] Rec: [id number] Address2: Acct ID: [id number] [facility] Zip: [place] [address] Date: 1965 Sex: F Room/Bed: [facility] Ref Phy: Yashira Arizmendi C.R.N.PRoxann SC: C.2T Att Phy: Leonie Fairbanks MD Report #: [id number] Risa Phy: Yashira Arizmendi C.R.N.PRoxann Test: [facility] Admit Phy: Aron Drake M.D. Licensed Weigher: DAVID Interpreting Phy: Walt Fernandez M.D. Diagnosis: NAUSEA AND VOMITING, UNCONTROLLED HYPERTENSION Ordering Phy: Sarah Deleon PA-C Service Date: 12/23/16 Admit Date: 12/21/1704/22/17 MNE: PWRSCRIBE CONF: DICTATED BY: Walt Fernandez M.D.]] CC: Sarah Deleon .CHRIS Heidi, C.RRoxannNLeonie Shannon MD Endcc: [~ rep ct add3]] MRI OF THE BRAIN WITHOUT AND WITH IV CONTRAST CLINICAL HISTORY: intractable nausea and vomiting nausea. Vomiting. COMPARISON STUDY: No previous studies for comparison. TECHNIQUE: Utilizing a 1.5 Niyah magnet and dedicated coil, multiplanar, multiecho imaging of the brain was performed pre and postcontrast administration. IV administration of 8.5 mL of Gadavist contrast was uneventful. FINDINGS: There are multiple foci of increased signal within the periventricular and deep white matter regions. This includes the optic radiations as well as subcortical regions of both cerebral hemispheres. Ventricular system is midline. Diffusion-weighted images are considered negative for an acute ischemic insult. postcontrast images are considered negative for abnormal postcontrast enhancement. Sella and parasellar regions are unremarkable. Optic chiasm is unremarkable. IMPRESSION: 1. Multiple foci of increased signal within the periventricular and deep white matter regions. 2. No evidence for abnormal postcontrast enhancement. 3. The appearance is suggestive of a demyelinating disorder Electronically signed by: Walt Fernandez M.D. 12/23/2016 10:06 PM Dictated Date/Time: 12/23/2016 10:03 PM The status of this report is Signed. Draft = Not yet reviewed or approved by Radiologist. Signed = Reviewed and approved by Radiologist. <AttendingPhy>Leonie Fairbanks MD</AttendingPhy> <FamilyPhy>Yashira Arizmendi C.RRoxannN.P.</FamilyPhy> <PrimaryPhy>Yashira Arizmendi C.R.N.P.</PrimaryPhy> < UnitNumber>[id number]</UnitNumber> <VisitNumber>[id number]</VisitNumber> < PatientName>LINDSAYONEL Healy</PatientName> <DateOfBirth>1965</DateOfBirth> < Location>C.2T</Location> <ServiceDate>12/21/16</ServiceDate> <MNE>ESINDI</MNE> < OrderingPhy>Sarah Deleon PA-C</OrderingPhy> <OrderingPhyMNE>f rep ord dr mario< /OrderingPhyMNE> <DictatingPhyMNE>f rep dict dr mario</DictatingPhyMNE> <CCListMNE >f rep ct mne</CCListMNE> <AdmittingPhyMNE>f pt admit dr mario</AdmittingPhyMNE> < AttendingPhyMNE>f pt attend dr mario</AttendingPhyMNE> <ConsultingPhyMNE>f pt consult dr mario</ConsultingPhyMNE> <FamilyPhyMNE>f pt fam dr mario</FamilyPhyMNE> <OtherPhyMNE>f pt other dr mario</OtherPhyMNE> < PrimaryPhyMNE>f pt prim care dr mario</PrimaryPhyMNE> <ReferringPhyMNE>f pt referring dr mario</ReferringPhyMNE> (Sarah Deleon ., PA-C) Assessment and Plan 51 y/o female with multiple recent admissions for malignant hypertension, nausea and vomiting that had resolved. Patient had most recently been discharged on December 21 but then later returned that day for readmission. The patient continues to have nausea and vomiting as well as elevated blood pressure , although her pressures are not nearly as elevated as compared to her original admission for malignant hypertension. Hypertensive urgency, h/o right sided renal artery stenosis--improving -Admitted to telemetry. Patient remained in sinus rhythm overnight with heart rate between 70s and 80s -BP much better controlled today, largely in normal range today and pt is without N/V and abdominal pain -Cardiology consulted, appreciate recs: Switch to metoprolol. Can continue home hydralazine for now. -D/C verapamil -Start Lopressor 100 mg PO BID per cardio -Continue home hydralazine 25 mg PO BID -Hydralazine and labetalol IV prn -Abdominal CT from prior admission (12/21/16) negative, no adrenal tumor -Renin and aldosterone pending, although pt is not presenting with resistant hypokalemia Nausea and vomiting--improving. Pt tolerating regular diet today -Continue Zofran 4 mg IV q6h prn nausea -Increase Reglan to 10 mg IV q6h prn nausea -Recent EGD found pill in lower esophagus but otherwise normal -Abdominal CT 12/21/16 negative, abdominal x-ray 12/20 negative -Lipase WNL -GI consulted, appreciate recs: Agree with MRI to check for central cause. Check serotonins and urine porphyrin screen. -RUQ US no acute disease -HIDA scan normal -Check KUB to assess for obstruction: negative study -Check MRI brain combo for any lesions: multiple lesions consistent with MS ( pt w/history of MS but not currently treated) -Neurology consulted, appreciate recs: Check lumbar puncture w/opening pressure to assess for increased intracranial pressure. Will also send off MS profile. No further MS treatment for now, will need further outpt evaluation/ work up. HLD -Continue atorvastatin 20 mg PO qd DVT prophylaxis -SCDs Code Status -Level I, FULL RESUSCITATION STATUS This chart was completed in part utilizing Dragon Speech Voice Recognition software. Attempts were made to minimize the grammatical errors, random word insertions, pronoun errors and incomplete sentences. Any formal questions or concerns about the content, text or information contained within the body of this dictation should be directly addressed to the provider for clarification. (Sarah Deleon ., CHRIS) Reviewed: Pt Seen/Exam by Me (Leonie Fairbanks MD) History Physician Spray Gunner Supervision Note: I interviewed and examined the patient. Discussed with PRASAD Deleon and agree with findings and plan as documented in the note. Any exceptions or clarifications are listed here: Patient feeling so much better today, blood pressures are improved and she is tolerating regular diet. Had her lumbar puncture and awaiting results. Opening pressure was normal at 10 Vitals reviewed, BPs elevated RRR no mgr CTAB no wcr, breathing unlabored Ext no edema, 1+ DP pulses Abd soft NT ND +BS, no bruits 51 yo female here with malignant HTN and associated N/V. GI workup negative so far. Workup for secondary HTN negative except right CATRACHITA which was addressed by Vascular Surgery on previous admission--> no intervention needed at this time. Urine metanephrines negative, TSH, cortisol normal. Renin and aldosterone pending. Her persistent N/V seems to be related to her severely labile and elevated HTN. MRI of brain with demyelinating lesions consistent with her history of MS. No central cause of persistent nausea vomiting found. Opening pressure normal. Appreciate neurology consultation-will need outpatient neurology follow-up with Dr. Melendrez -Appreciate Consult Cardiology to assist with management of malignant HTN- starting metoprolol, discontinue verapamil, continue hydralazine -Can probably discharge to home tomorrow and should remain out of work for the rest of week until follow-up with PCP Noni Documented By: Leonie Fairbanks (Leonie Fairbanks MD)
[2016-12-24] MEDS ORDERED: ACETAMINOPHEN 500 MG TAB PO PRN (14:30)
--- NOTE | 2016-12-24 14:57 | DIAGNOSTIC IMAGING REPORT ---
FLUOROSCOPICALLY GUIDED LUMBAR PUNCTURE CLINICAL HISTORY: pseudotumor cerebri? H/o MS, needs opening pressure FLUOROSCOPY TIME: 0.1 minutes PROCEDURE: The procedure, risks and benefits were discussed with the patient including the risk of spinal headache, bleeding and infection. The patient agreed to the procedure and informed written consent was obtained. The procedure was performed by Dr. Fernandez following a timeout. The left L3-L4 interlaminar space was targeted. Skin overlying the space was prepped and draped in the usual sterile fashion and local anesthesia was achieved with 1% lidocaine. Under intermittent fluoroscopic guidance, a 20-gauge x 3 1/2 in. Sprotte needle was inserted into the thecal sac. A total of 8cc of clear, colorless cerebral spinal fluid was obtained and spread amongst 4 vials. The patient tolerated the procedure well. There were no immediate complications. The specimens were sent to the laboratory at the request of the referring physician. Opening pressure 10 mmHg IMPRESSION: Successful fluoroscopic guided lumbar puncture with removal of 8 cc of clear, colorless cerebral spinal fluid. No immediate complications. Open pressure 10 mmHg Electronically signed by: Walt Fernandez M.D. 12/24/2016 2:55 PM Dictated Date/Time: 12/24/2016 2:54 PM
[2016-12-24 15:01] LABS: CSF TOTAL PROTEIN 50.9 mg/dl (15.0-45.0)
[2016-12-24 15:10] LABS: CSF APPEARANCE CLEAR; CSF COLOR COLORLESS; CSF XANTHOCHROMIC NO XANTHOCHROMIA
[2016-12-24] MEDS ORDERED: NURSING DECISION MEDICATION ORDER SCH (19:00)
--- NOTE | 2016-12-24 19:40 | GASTROENTEROLOGY PROGRESS NOTE ---
DATE: 12/24/2016 GASTROENTEROLOGY INPATIENT PROGRESS NOTE HISTORY OF PRESENT ILLNESS: The patient actually had a good day today without any significant nausea, vomiting or abdominal pain. She tolerated breakfast and lunch well without difficulty. Her GI workup over several inpatient evaluations failed to show any obvious cause for the patient's symptoms. Interestingly, the patient has had poorly controlled blood pressure and with some reduction of blood pressure this seemed to help with her nausea and vomiting. She just recently underwent a lumbar puncture as MR imaging is suggesting a pattern consistent with multiple sclerosis LABORATORY STUDIES: The patient's blood work today - white count 7.7, hemoglobin 12.3, hematocrit 36.6, platelets 372,000. Chemistry: BUN and creatinine 12 and 0.75 with a potassium 3.5. CSF is pending. REVIEW OF SYSTEMS: Otherwise noncontributory based on 14-point exam except for mentioned above. PHYSICAL EXAMINATION: VITAL SIGNS: Today blood pressure 156/76. She is 97% on room air. Temperature is afebrile 36.0, heart rate 80. ABDOMEN: Soft, nontender, nondistended with good bowel sounds. There is no rebound or guarding. I do not appreciate hepatosplenomegaly. EXTREMITIES: Without clubbing, cyanosis or edema. LUNGS: Clear to auscultation. HEART: Normal S1, S2. IMPRESSION: The patient's symptoms of nausea, vomiting as well as abdominal discomfort seemed to have nearly resolved on current therapy and with control of blood pressure. Blood pressure management and changes in progress. Workup for her MS and degree of activity also in progress. She is currently on metoclopramide p.r.n., labetalol, hydralazine, aspirin, pantoprazole and Zofran. PLAN: At this point, will sign off for now as gastrointestinal symptoms appear to be resolving. If you have any additional questions or symptoms returned, please do not hesitate to contact our service. Thank you for allowing us to participate in this patient's care.
[2016-12-24] MEDS: ATORVASTATIN 20 MG TAB PO SCH (20:04)
[2016-12-24] MEDS: METOPROLOL TARTRATE 100 MG TAB PO SCH (20:05)
[2016-12-24] MEDS: ENOXAPARIN 40 MG/0.4 ML SYR SQ SCH (21:53)
[2016-12-25 04:01] VITALS: BP 123/76; PULSE 63; TEMP 37; O2SAT 96
[2016-12-25 07:56] VITALS: BP 139/83; PULSE 73; TEMP 37.6; O2SAT 95
[2016-12-25] MEDS: METOPROLOL TARTRATE 100 MG TAB PO SCH (08:11)
[2016-12-25] MEDS: ASPIRIN 81 MG CHEW PO SCH (08:11)
[2016-12-25] MEDS ORDERED: PANTOprazole SOD 40 MG TAB PO SCH (09:00)
[2016-12-25] MEDS ORDERED: LPR100 PO (09:20)
--- NOTE | 2016-12-25 09:45 | Discharge Instructions ---
Discharge Instructions Date of Service December 25, 2016. Admission Reason for Admission: Nausea And Vomiting, Uncontrolled Hypertension Discharge Discharge Diagnosis / Problem: Uncontrolled hypertension, nausea and vomiting Discharge Goals Goal(s): Decrease discomfort, Improve function, Improve disease control, Diagnostic testing, Therapeutic intervention Activity Recommendations Activity Limitations: per Instructions/Follow-up section . Instructions / Follow-Up Instructions / Follow-Up You were admitted to the hospital after presenting with nausea, vomiting, and elevated blood pressure. Within the last few weeks, you have received extensive gastrointestinal work up for the nausea and vomiting, and this has all returned normal. It appears that your nausea and vomiting may actually be linked to your uncontrolled blood pressure, since your symptoms resolve when your blood pressure is controlled. Cardiology was consulted for your blood pressure, and the following changes were made to your home blood pressure medications: your verapamil was discontinued and replaced with a beta blaine called metoprolol tartrate (brand name Lopressor), and your previous hydralazine was continued. On this regimen, your blood pressure has been adequately controlled and your nausea, vomiting and abdominal pain have not recurred. While working up other possible causes of your nausea/vomiting, an MRI of the brain was obtained. The MRI findings were consistent with multiple sclerosis ( MS). Neurology was consulted, and a lumbar puncture was done (this was also done to assess for increased intracranial pressure due to your uncontrolled blood pressure). Many of the tests from the lumbar puncture are still pending, although the cerebrospinal fluid was found to be high in protein, which is again consistent with MS. You will be scheduled to follow up with Dr. Melendrez of neurology within a week for further outpatient work up and possible treatment. Recommendations: *You may resume your previous activity as tolerated; however, you should remain out of work until you are able to follow up with your primary care provider. *Try to check your blood pressures at home or at a pharmacy station a few times a week if you are able and write them down. Bring this list to your primary care provider and cardiology appointments as this will be helpful to see if your blood pressure is staying controlled. Medications: *STOP verapamil. *Take metoprolol tartrate (Lopressor) 100 mg by mouth twice a day. Continue hydralazine 25 mg by mouth twice a day. *Continue your other home medications as prescribed. Follow up: *The Nurse Navigator will schedule you for a follow up appointment with Dr. Melendrez within the next week or so. *You are also being scheduled for a follow up appointment with your primary care provider, DARREN Talley. *Cardiology will be scheduling you for a follow up appointment in 2-3 weeks. Please seek medical attention if you experience fevers, chills, sweats, chest pain, shortness of breath, lightheadedness, loss of consciousness, changes in vision, new or different onset of headaches, nausea, vomiting, abdominal pain, numbness or tingling. Current Hospital Diet Patient's current hospital diet: AHA Diet (Heart Healthy) Discharge Diet Recommended Diet: AHA Diet (Heart Healthy) Procedures Procedures Performed: Lumbar puncture Pending Studies Studies pending at discharge: yes List of pending studies: Renin and aldosterone, serum serotonin, urine porphyrin studies, cerebrospinal fluid studies, serum immunoglobulin studies, [place] Laboratory Results Hemoglobin A1c Test 11/28/16 07:35 Range/Units Estimated Average Glucose 111 mg/dl Hemoglobin A1c 5.5 4.5-5.6 % Lipid Panel Test 11/29/16 06:23 Range/Units Triglycerides Level 218 H 0-150 mg/dl Cholesterol Level 275 H 0-200 mg/dl HDL Cholesterol 61 mg/dl Cholesterol/HDL Ratio 4.5 LDL Cholesterol, Calculated 170 mg/dl Work Instructions Return To Work: after follow-up (with primary care provider) Medical Emergencies . Who to Call and When: Medical Emergencies: If at any time you feel your situation is an emergency, please call 911 immediately. . Non-Emergent Contact Non-Emergency issues call your: Primary Care Provider, Scallop Binder, Neurologist Call Non-Emergent contact if: you have a fever, your pain is not controlled, your pain is worsening, your pain is unusual for you, your pain is concerning you, you have any medication questions . Past History Medical & Surgical History: (1) Uncontrolled hypertension (2) Renal artery stenosis (3) Nausea & vomiting . "Provider Documentation" section prepared by Sarah Deleon. . VTE Core Measure Inpt VTE Proph given/why not?: Enoxaparin (Lovenox)SQ, SCD's
[2016-12-25 10:41] VITALS: BP 139/83; PULSE 73; TEMP 37.6; O2SAT 95
--- NOTE | 2016-12-25 13:13 | Discharge Summary ---
Discharge Summary Date of Service December 25, 2016. (Sarah Deleon .CHRIS) Discharge Summary Admission Date: December 23, 2016 at 16:52 Discharge Date: December 25, 2016 Discharge Disposition: Home Principal Diagnosis: Uncontrolled hypertension, nausea and vomiting Problems/Secondary Diagnoses: Multiple sclerosis HTN HLD Immunizations: Have You Had Influenza Vaccine: Unknown History of Tetanus Vaccine?: Unknown History of Pneumococcal: Unknown History of Hepatitis B Vaccine: Unknown Procedures: Lumbar puncture: IMPRESSION: Successful fluoroscopic guided lumbar puncture with removal of 8 cc of clear, colorless cerebral spinal fluid. No immediate complications. Open pressure 10 mmHg Abdominal ultrasound: IMPRESSION: No acute sonographic abnormality is identified in the right upper quadrant. No gallstones are seen. HIDA scan: IMPRESSION: 1. Normal hepatobiliary scan. No evidence of acute or chronic cholecystitis. 2. Normal gallbladder ejection fraction of 77%. KUB: IMPRESSION: Normal study. Brain MRI w/ and w/o contrast: IMPRESSION: 1. Multiple foci of increased signal within the periventricular and deep white matter regions. 2. No evidence for abnormal postcontrast enhancement. 3. The appearance is suggestive of a demyelinating disorder Consultations: Gastroenterology Neurology Cardiology (Sarah Deleon PA-C) Medication Reconciliation New Medications: Metoprolol Tartrate (Metoprolol Tartrate) 100 Mg Tab 100 MG PO BID for 30 Days, #60 TAB Take 1 tablet by mouth twice a day. Continued Medications: Aspirin (Aspirin Chewable) 81 Mg Chew 81 MG PO DAILY Atorvastatin (Lipitor) 20 Mg Tab 20 MG PO HS, TAB Hydralazine HCl (Hydralazine HCl) 25 Mg Tab 25 MG PO BID, #60 TABS 3 Refills Multivitamin (Multivitamin) Tab 1 TAB PO DAILY, TAB Discontinued Medications: Verapamil HCl (Verapamil HCl ER) 180 Mg Tabcr 180 MG PO QAM, #30 Discharge Exam Patient feeling well today. She denies any nausea/vomiting today or yesterday and denies any abdominal pain. She denies any headaches, lightheadedness, or changes in vision. She tolerated the lumbar puncture well. The patient denies fevers, chills, sweats, chest pain, palpitations, claudication, cough, wheezing , shortness of breath, nausea, vomiting, abdominal pain, dysuria, hematuria, urinary retention, paralysis, weakness, numbness and tingling. Review of Systems: Constitutional: No fever, No chills, No sweats Eyes: No worsening of vision, No eye pain, No diplopia ENT: No hearing loss, No sore throat, No trouble swallowing Respiratory: No cough, No wheezing, No shortness of breath Cardiovascular: No chest pain, No claudication, No palpitations Abdomen: No pain, No nausea, No vomiting Musculoskeletal: No joint pain, No muscle pain, No calf pain Genitourinary - Female: No dysuria, No urinary retention, No hematuria Neurologic: No paralysis, No weakness, No numbness/tingling Integumentary: No rash, No itch, No color change Physical Exam: General Appearance: WD/WN, no apparent distress Eyes: normal inspection, PERRL, EOMI ENT: normal ENT inspection, hearing grossly normal, pharynx normal Neck: supple, no JVD, trachea midline Respiratory/Chest: lungs clear, normal breath sounds, no respiratory distress Cardiovascular: regular rate, rhythm, no gallop, no murmur Abdomen / GI: normal bowel sounds, non tender, soft Extremities: normal inspection, no calf tenderness, no pedal edema 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: alert, normal mood/affect, oriented x 3 Skin: normal color, warm/dry, no rash (Sarah Deleon ., PA-C) Hospital Course 51 y/o female with multiple recent admissions for malignant hypertension, nausea and vomiting that had resolved. Patient had most recently been discharged on December 21 but then later returned that day for readmission. The patient continues to have nausea and vomiting as well as elevated blood pressure , although her pressures are not nearly as elevated as compared to her original admission for malignant hypertension. Hypertensive urgency, h/o right sided renal artery stenosis--improving -Admitted to telemetry. Patient remained in sinus rhythm overnight with heart rate between 70s and 80s -BP much better controlled today, largely in normal range today and pt is without N/V and abdominal pain -Cardiology consulted, appreciate recs: Switch to metoprolol. Can continue home hydralazine for now. Will schedule pt for f/u in 2-3 weeks -D/C verapamil -Start Lopressor 100 mg PO BID per cardio -Continue home hydralazine 25 mg PO BID -Hydralazine and labetalol IV prn -Abdominal CT from prior admission (12/21/16) negative, no adrenal tumor -Renin and aldosterone pending, although pt is not presenting with resistant hypokalemia Nausea and vomiting--improving. Pt tolerating regular diet -Continue Zofran 4 mg IV q6h prn nausea -Reglan to 10 mg IV q6h prn nausea -Recent EGD found pill in lower esophagus but otherwise normal -Abdominal CT 12/21/16 negative, abdominal x-ray 12/20 negative -Lipase WNL -GI consulted, appreciate recs: Symptoms resolved, GI will sign off -RUQ US no acute disease -HIDA scan normal -Check KUB to assess for obstruction: negative study -Check MRI brain combo for any lesions: multiple lesions consistent with MS ( pt w/history of MS but not currently treated) -Neurology consulted, appreciate recs: Check lumbar puncture w/opening pressure to assess for increased intracranial pressure. Will also send off MS profile. No further MS treatment for now, will need further outpt evaluation/ work up. -Lumbar puncture successful, clear CSF. Opening pressure WNL at 10. CSF studies pending, but was high in protein. Serum immunoglobulin studies pending. -Serum serotonin and urine porphyrin studies still pending -Nurse Navigator scheduled pt for f/u with neuro January 02 and PCP HLD -Continue atorvastatin 20 mg PO qd DVT prophylaxis -SCDs Code Status -Level I, FULL RESUSCITATION STATUS This chart was completed in part utilizing [employer] Speech Voice Recognition software. Attempts were made to minimize the grammatical errors, random word insertions, pronoun errors and incomplete sentences. Any formal questions or concerns about the content, text or information contained within the body of this dictation should be directly addressed to the provider for clarification. Total Time Spent: Greater than 30 minutes This includes examination of the patient, discharge planning, medication reconciliation, and communication with other providers. (Sarah Deleon ., CHRIS) Discharge Instructions Please refer to the electronic Patient Visit Report (Discharge Instructions) for additional information. (Sarah Deleon ., CHRIS) Additional Copies To Yashira Arizmendi C.R.N.P. Reviewed: Pt Seen/Exam by Me (Leonie Fairbanks MD) History Physician Social Media Editor Supervision Note: I interviewed and examined the patient. Discussed with PRASAD Deleon and agree with findings and plan as documented in the note. Any exceptions or clarifications are listed here: Patient feeling so much better today, blood pressures are improved and she is tolerating regular diet. Had her lumbar puncture and awaiting results. Opening pressure was normal at 10 Vitals reviewed RRR no mgr CTAB no wcr, breathing unlabored Ext no edema, 1+ DP pulses Abd soft NT ND +BS, no bruits 51 yo female here with malignant HTN and associated N/V. GI workup negative so far. Workup for secondary HTN negative except right CATRACHITA which was addressed by Vascular Surgery on previous admission--> no intervention needed at this time. Urine metanephrines negative, TSH, cortisol normal. Renin and aldosterone pending. Her persistent N/V seems to be related to her severely labile and elevated HTN. MRI of brain with demyelinating lesions consistent with her history of MS. No central cause of persistent nausea vomiting found. Opening pressure normal. Appreciate neurology consultation-will need outpatient neurology follow-up with Dr. Melendrez -Appreciate Consult Cardiology to assist with management of malignant HTN- starting metoprolol, discontinue verapamil, continue hydralazine -stable for dc to home Proph-Lovenox Documented By: Leonie Fairbanks (Leonie Fairbanks MD)
[2016-12-30 19:33] LABS: LYME DNA PCR CSF OR SYNOVIAL Not detected (Not Detected); LYME DNA SOURCE CSF
[2017-01-03 06:41] LABS: ALBUMIN 3.7 g/dL (3.5-4.9); IGG CSF 2.6 mg/dL (0.8-7.7); IGG SERUM 635 mg/dL (694-1618); MYELIN BASIC PROTEIN 663 <2.0 mcg/L (0.0-4.0)
[2017-01-04 02:21] LABS: COPROPORPYRINS I RANDOM UR 9.7 (5.6-28.6); PENTAPORPHYRIN 0.8 (< OR = 3.5); PORPHYRINS TOTAL 45.3 (23.3-132.4); UROPORPHYRINS I RANDOM UR 11.6 (3.1-18.2); UROPORPHYRINS III RANDOM UR 3.2 (< OR = 4.8)
[2017-04-26] MEDS ORDERED: CLON0.1T12 PO (07:48)
[2017-04-26] MEDS ORDERED: [UNRECOGNIZED DRUG - CODE] OTB (07:48)
[2017-05-08] MEDS ORDERED: CZR50 PO (13:17)
== END 2016-12-25 11:17 | disposition home or self-care (01) | DRG 305 ==
LOC: ENRESERVTM → ENRESERVDT → C.EDB 22:57 → C.2T 12-22 01:24 → OBSVTOIN 12-23 16:52
PROVIDERS: ADMIT Hospitalist; ATTEND Family Medicine
PROC: 009U3ZX Drainage of Spinal Canal, Percutaneous Approach, Diagnostic (ICD-10-PCS; principal; 2016-12-24)
DX: I10 Essential (primary) hypertension (principal); I70.1 Atherosclerosis of renal artery; R11.2 Nausea with vomiting, unspecified; G35 Multiple sclerosis; E78.00 Pure hypercholesterolemia, unspecified; K21.9 Gastro-esophageal reflux disease without esophagitis; Z79.82 Long term (current) use of aspirin; Z79.899 Other long term (current) drug therapy; Z87.891 Personal history of nicotine dependence; I16.0 Hypertensive urgency; A08.4 Viral intestinal infection, unspecified; I25.10 Atherosclerotic heart disease of native coronary artery without angina pectoris; E78.5 Hyperlipidemia, unspecified; F12.10 Cannabis abuse, uncomplicated

== ENCOUNTER → 2016-12-28 | Outpatient (CLI) | payer OTHER ==
[~2016-12-28] MED LIST changes: +CLON0.1T12 PO; +CRS/10 PO; +CZR50 PO; +HYDR12.55 PO; +HYDR25TA4 PO; +HYDR25TA5 PO; +IMDSR30 PO; +LISI-461 PO; +LISI-725 PO; +LPR100 PO; +LPT40 PO; +LSN10 PO; +METO100T14 PO; +ONDA4TAB10 SL; +SERT50TA PO; +TPRSR50 PO; -VRPSR180 PO; +ZLF/100 PO; +[UNRECOGNIZED DRUG - CODE] OTB
[2017-01-01 09:39] LABS: METANEPHRINE 77 mcg/24 h (90-315); NORMETANEPHRINE UR 224 mcg/24 h (122-676); TOTAL METANEPHRINE 301 mcg/24 h (224-832)
== END | disposition home or self-care (01) ==
LOC: C.LAB 09:14
PROVIDERS: ATTEND Nurse Practitioner Adult Health
DX: I10 Essential (primary) hypertension (principal)

== ENCOUNTER 2017-01-11 13:46 | Observation (INO) | payer OTHER ==
[~2017-01-11] VITALS: Ht 165.1 cm; Wt 63.6 kg
[~2017-01-11 13:46] MED LIST changes: -CLON0.1T12 PO; -CRS/10 PO; -CZR50 PO; -HYDR12.55 PO; -HYDR25TA4 PO; -HYDR25TA5 PO; -IMDSR30 PO; -LISI-461 PO; -LISI-725 PO; -LPT40 PO; -LSN10 PO; -METO100T14 PO; -ONDA4TAB10 SL; -SERT50TA PO; -TPRSR50 PO; -ZLF/100 PO; -[UNRECOGNIZED DRUG - CODE] OTB
[2017-01-11] MEDS ORDERED: ONDANSETRON INJ 2 MG/ML 2 ML VIAL IV STA (14:12)
[2017-01-11] MEDS ORDERED: HydrALAZINE HCL 20 MG/ML VIAL IV. STA (14:12)
[2017-01-11 14:35] LABS: BASO % 0.3 %; BASO ABS # 0.03 K/uL (0-0.2); COMPLETE YES; HEMATOCRIT 40.5 % (37-47); IG% 0.2 %; LYMPH % 11.1 %; LYMPH ABS # 1.09 K/uL (1.2-3.4); MEAN CELL VOLUME 92.5 fL (80-100); MEAN CORPUSCULAR HEMOGLOBIN 30.6 pg (25-34); MEAN CORPUSCULAR HGB CONC 33.1 g/dl (32-36); MEAN PLATELET VOLUME 9.3 fL (7.4-10.4); MONO % 2.8 %; NEUT % 85.6 %; PLATELET COUNT 407 K/uL (130-400); RED BLOOD COUNT 4.38 M/uL (4.2-5.4); WHITE BLOOD COUNT 9.79 K/uL (4.8-10.8)
[2017-01-11 14:51] LABS: ALT/SGPT 29 U/L (12-78); AST/SGOT 17 U/L (15-37); BLOOD UREA NITROGEN 23 mg/dl (7-18); BUN/CREATININE RATIO 32.7 (10-20); CALCIUM 9.1 mg/dl (8.5-10.1); CARBON DIOXIDE 24 mmol/L (21-32); CHLORIDE 103 mmol/L (98-107); GLUCOSE 129 mg/dl (70-99); POTASSIUM 3.6 mmol/L (3.5-5.1); SODIUM 139 mmol/L (136-145)
--- NOTE | 2017-01-11 14:51 | EMERGENCY ROOM VISIT NOTE ---
History Report prepared by Andres: Tin Schaefer Under the Supervision of: Dr. Khang Her M.D. First contact with patient: 14:07 Chief Complaint: VOMITING Stated Complaint: VOMITING Nursing Triage Summary: pt reports vomiting started this am at 0400 unable to keep anything down. has not attempted to eat today took meds at 0900 and didnt start to vomiting again until 1130 History of Present Illness The patient is a 51 year old female who presents to the Emergency Room with complaints of intermittent nausea and vomiting starting about 10 hours ago. She has a history of hypertension and denies missing any doses of her prescribed medication. She took her prescribed medications about 5 hours ago and did not have a vomiting episode till about 2 and a half hours later. She has a history of nausea and vomiting when her blood pressure becomes elevated. She was hospitalized 2 weeks ago for similar symptoms and an inability to control her blood pressure. She denies chest pain, shortness of breath, abdominal pain, urinary symptoms, diarrhea, or any other complaints. Source of History: patient Onset: about 10 hours ago Position: other (global) Quality: other (nausea and vomiting) Timing: intermittent Associated Symptoms: No chest pain, No SOB, No abdominal pain, No diarrhea, No urinary symptoms Review of Systems See HPI for pertinent positives & negatives. A total of 10 systems reviewed and were otherwise negative. Past Medical & Surgical Medical Problems: (1) Atherosclerosis Nos (2) Elevated troponin I level (3) Hypertension Nos (4) Hypertensive urgency, malignant (5) Hypokalemia (6) Intractable nausea and vomiting (7) Malignant essential hypertension (8) Multiple Sclerosis (9) Nausea & vomiting (10) Prolonged QT interval (11) Renal artery stenosis (12) Uncontrolled hypertension Family History Cancer Diabetes mellitus Heart disease Hypertension Lung disease Social History Smoking Status: Light Tobacco Smoker Alcohol Use: occasionally Drug Use: marijuana Marital Status: Housing Status: lives with family Occupation Status: employed Current/Historical Medications Scheduled Aspirin (Aspirin Chewable), 81 MG PO DAILY Atorvastatin (Lipitor), 20 MG PO HS Hydralazine HCl (Hydralazine HCl), 25 MG PO BID Metoprolol Tartrate (Metoprolol Tartrate), 100 MG PO BID Multivitamin (Multivitamin), 1 TAB PO DAILY Allergies Coded Allergies: Doxycycline (Verified Allergy, Unknown, rash, 01/11/17) Iodinated Diagnostic Agents (Verified Allergy, Unknown, `, 01/11/17) Latex1 -Allergic Contact Dermititis (Verified Allergy, Unknown, RASH, 01/11) Meperidine (Verified Allergy, Unknown, HIVES, VOMITING, 01/11/17) Prochlorperazine (Verified Allergy, Unknown, ., 01/11/17) [place] (Verified Allergy, Unknown, HIVES, 01/11/17) Tomato (Verified Allergy, Unknown, HIVES, 01/11/17) Uncoded Allergies: Hernandez Beans (Allergy, Unknown, HIVES, 11/27/16) Physical Exam Vital Signs Date Time Temp Pulse Resp B/P (MAP) Pulse Ox O2 Delivery O2 Flow Rate FiO2 01/11/17 16:39 108 17 178/112 95 Room Air 01/11/17 16:08 99 16 182/107 97 01/11/17 15:17 97 16 189/118 97 01/11/17 15:07 85 17 206/113 97 01/11/17 14:50 88 200/131 98 Room Air 01/11/17 14:39 160/113 01/11/17 13:47 36.7 77 18 206/115 98 Room Air Physical Exam GENERAL: Patient is uncomfortable appearing and in moderate distress. HEENT: No acute trauma, normocephalic atraumatic, mucous membranes moist, no nasal congestion, no scleral icterus. Cataract right eye. NECK: No stridor, no adenopathy, no meningismus, trachea is midline. LUNGS: No dyspnea. Clear to auscultation and equal bilaterally. No wheeze, no rhonchi. HEART: Regular rate and rhythm. No murmurs, rubs, gallops appreciated. ABDOMEN: Soft, nontender, bowel sounds positive, no masses appreciated, no peritonitis. BACK: No midline tenderness, no CVA tenderness EXTREMITIES: Normal motion all extremities, no cyanosis, no edema. NEUROLOGIC: Alert and oriented, no acute motor or sensory deficits, no focal weakness, cranial nerves grossly intact. SKIN: No rash, no jaundice, no diaphoresis. Medical Decision & Procedures Laboratory Results 01/11/17 14:20 Red Blood Count 4.38, Mean Corpuscular Volume 92.5, Mean Corpuscular Hemoglobin 30.6, Mean Corpuscular Hemoglobin Concent 33.1, Mean Platelet Volume 9.3, Neutrophils (%) (Auto) 85.6, Lymphocytes (%) (Auto) 11.1, Monocytes (%) (Auto) 2.8, Eosinophils (%) (Auto) 0.0, Basophils (%) (Auto) 0.3, Neutrophils # (Auto) 8.38, Lymphocytes # (Auto) 1.09, Monocytes # (Auto) 0.27, Eosinophils # (Auto) 0.00, Basophils # (Auto) 0.03 01/11/17 14:20 Test 01/11/17 14:20 White Blood Count 9.79 K/uL (4.8-10.8) Red Blood Count 4.38 M/uL (4.2-5.4) Hemoglobin 13.4 g/dL (12.0-16.0) Hematocrit 40.5 % (37-47) Mean Corpuscular Volume 92.5 fL (80-100) Mean Corpuscular Hemoglobin 30.6 pg (25-34) Mean Corpuscular Hemoglobin Concent 33.1 g/dl (32-36) Platelet Count 407 K/uL (130-400) Mean Platelet Volume 9.3 fL (7.4-10.4) Neutrophils (%) (Auto) 85.6 % Lymphocytes (%) (Auto) 11.1 % Monocytes (%) (Auto) 2.8 % Eosinophils (%) (Auto) 0.0 % Basophils (%) (Auto) 0.3 % Neutrophils # (Auto) 8.38 K/uL (1.4-6.5) Lymphocytes # (Auto) 1.09 K/uL (1.2-3.4) Monocytes # (Auto) 0.27 K/uL (0.11-0.59) Eosinophils # (Auto) 0.00 K/uL (0-0.5) Basophils # (Auto) 0.03 K/uL (0-0.2) RDW Standard Deviation 43.0 fL (36.4-46.3) RDW Coefficient of Variation 12.7 % (11.5-14.5) Immature Granulocyte % (Auto) 0.2 % Immature Granulocyte # (Auto) 0.02 K/uL (0.00-0.02) Anion Gap 12.0 mmol/L (3-11) Est Creatinine Clear Calc Drug Dose 86.5 ml/min Estimated GFR () 117.1 Estimated GFR (Non- 101.0 BUN/Creatinine Ratio 32.7 (10-20) Calcium Level 9.1 mg/dl (8.5-10.1) Total Bilirubin 0.4 mg/dl (0.2-1) Direct Bilirubin < 0.1 mg/dl (0-0.2) Aspartate Amino Transf (AST/SGOT) 17 U/L (15-37) Alanine Aminotransferase (ALT/SGPT) 29 U/L (12-78) Alkaline Phosphatase 67 U/L (45-117) Total Creatine Kinase 102 U/L (26-192) Creatine Kinase MB 1.9 ng/ml (0.5-3.6) Creatine Kinase MB Ratio 1.9 (0-3.0) Troponin I 0.026 ng/ml (0-0.045) Total Protein 8.1 gm/dl (6.4-8.2) Albumin 4.2 gm/dl (3.4-5.0) Lipase 108 U/L (73-393) Laboratory results as reviewed by me. Medications Administered Medications (Trade) Dose Ordered Sig/Yeimy Route Start Time Stop Time Status Last Admin Dose Admin Hydralazine HCl (HydrALAZINE INJ) 10 mg NOW STAT IV. 01/11/17 14:12 01/11/17 14:15 DC 01/11/17 14:40 10 MG Ondansetron HCl (Zofran Inj) 4 mg NOW STAT IV 01/11/17 14:12 01/11/17 14:15 DC 01/11/17 14:39 4 MG Labetalol HCl (Normodyne IV) 20 mg NOW STAT IV 01/11/17 15:07 01/11/17 15:08 DC 01/11/17 15:13 20 MG Sodium Chloride 500 ml @ 999 mls/hr Q31M STAT IV 01/11/17 15:13 01/11/17 15:43 DC 01/11/17 15:16 999 MLS/HR Sodium Chloride 1,000 ml @ 75 mls/hr [id number] STAT IV 01/11/17 15:13 01/12/17 04:32 01/11/17 15:51 75 MLS/HR Labetalol HCl (Normodyne IV) 20 mg NOW STAT IV 01/11/17 15:49 01/11/17 15:50 DC 01/11/17 15:58 20 MG ECG Indication: nausea, vomiting Rate (beats per minute): 82 Rhythm: normal sinus Findings: RBBB, no acute ischemic change, no ectopy ED Course 1407: The patient was evaluated in room C08. A complete history and physical exam was performed. 1412: Zofran Inj 4 mg IV, Hydralazine HCl 10 mg IV 1507: Labetalol HCl 20 mg IV. The patient's blood pressure is unchanged. 1513: Sodium Chloride 1000 ml @ 75 mls/hr IV, Sodium Chloride 500 ml @ 999 mls/ hr IV 1547: I reevaluated the patient. Her blood pressure is 190/48. Her nausea had resolved but she states that she just doesn't feel right. 1549: Labetalol HCl 20 mg IV. Upon reevaluation, the patient is resting comfortably. Discussed results and treatment plan with the patient. She verbalized understanding and agreement with the treatment plan. The patient will be evaluated for further management. 1601: I discussed the patient's case with Dr. Drake, from [facility]. Medical Decision Differential: Benign Hypertension, Hypertensive Urgency/Emergency, Cardiovascular Pathology, Endocrine, Metabolic/Electrolyte, Renal Disease, Endorgan Damage, amongst other pathologies entertained. Medication Reconciliation: I attest that I have personally reviewed the patient 's current medication list. Blood pressure screening: Patient was found to be severely hypertensive and will be referred to the hospitalist for further control. 51 yr old female with hypertension and intractable vomiting. Many previous admissions for same. Symptoms improved but BP still out of control after 3 rounds IV antihypertensives. Previous work-ups without any clear cause other than possibly cannabis hyperemesis syndrome. She adamantly states she is taking her meds. Stable with unremarkable work-up besides hypertension. Labs looks good. Will need to bring back in given persistent severe hypertension. Consults Time Called: 155 Consulting Physician: Dr. Drake, from [facility] Returned Call: 1601 I discussed the patient's case with Dr. Drake, from [facility]. Impression Primary Impression: Hypertensive emergency Critical Care I have personally spent greater than 45 minutes of critical care time in the direct management of this patient. This was a life/limb threatening event. This includes time spent evaluating patient, direct bedside care, chart review, placing orders, interpretation of diagnostic studies, discussion with consultants, patient, and family members, as well as other required patient management activities. This 45 minutes is in excess of all separately billable procedures. Scribe Attestation The scribe's documentation has been prepared under my direction and personally reviewed by me in its entirety. I confirm that the note above accurately reflects all work, treatment, procedures, and medical decision making performed by me. Departure Information Dispostion Being Evaluated By Hospitalist Referrals No Doctor, Assigned (PCP) Patient Instructions [facility]
[2017-01-11 14:56] LABS: ALKALINE PHOSPHATASE 67 U/L (45-117); CKMB/CK RATIO 1.9 (0-3.0)
[2017-01-11] MEDS ORDERED: LABETALOL HCL IV 5 MG/ML 20ML IV STA ×2 (15:07→15:49)
[2017-01-11] MEDS ORDERED: SODIUM CHLORIDE 0.9% 1000ML 1,000 ML IV STA (15:13)
[2017-01-11] MEDS ORDERED: SODIUM CHLORIDE 0.9% 500ML 500 ML IV STA (15:13)
[2017-01-11 16:50] VITALS: O2SAT 95; Ht 165.1 cm; Wt 63.6 kg
[2017-01-11] MEDS ORDERED: ACETAMINOPHEN IV 100 ML IV PRN (17:00)
[2017-01-11] MEDS ORDERED: ONDANSETRON INJ 2 MG/ML 2 ML VIAL IV PRN (17:00)
[2017-01-11] MEDS ORDERED: KETOROLAC TROMETHAMINE 30 MG/ML VIAL IV PRN (17:00)
[2017-01-11] MEDS ORDERED: ACETAMINOPHEN 325 MG TAB PO PRN (17:00)
[2017-01-11] MEDS ORDERED: NITROGLYCERIN 0.4 MG SL PER TAB CHARGE SL PRN (17:00)
[2017-01-11] MEDS ORDERED: IV FLUIDS COMPLETED PRN (17:45)
[2017-01-11] MEDS ORDERED: GADAVIST IV PRN (19:15)
[2017-01-11 19:22] VITALS: BP 181/107; PULSE 107; TEMP 37.4; O2SAT 97
[2017-01-11 19:23] VITALS: BP 168/93
--- NOTE | 2017-01-11 19:38 | DIAGNOSTIC IMAGING REPORT ---
MRA ABDOMEN COMBO CLINICAL HISTORY: HYPERTENSIVE URGENCY, ATTENTION RENAL ARTERIES COMPARISON STUDY: Doppler renal ultrasound November 28, 2016. TECHNIQUE: Unenhanced and contrast-enhanced MRA of the abdominal aorta and renal arteries was performed. Injection of 6 cc of Gadavist IV was uneventful. FINDINGS: There is no hydronephrosis. No renal lesions are identified. The liver, spleen, adrenal glands and pancreas are unremarkable on this examination. There is no abdominal lymphadenopathy or ascites. The caliber of the abdominal aorta is normal. There is mild atherosclerotic plaque within the abdominal aorta. Noncontrast MRA demonstrates no significant stenosis within the bilateral renal arteries. There is an accessory left renal artery. Due to motion artifact, the contrast-enhanced MRA is significantly compromised. No definite stenosis is identified within the renal arteries. IMPRESSION: Contrast-enhanced MRA significantly compromised by motion artifact. However, no significant renal artery stenosis on the unenhanced MRA which is considered diagnostic. No convincing MR evidence for renal artery stenosis. Electronically signed by: Flynn Shipley M.D. 01/11/2017 7:36 PM Dictated Date/Time: 01/11/2017 7:19 PM
--- NOTE | 2017-01-11 19:54 | History and Physical ---
History & Physical Date & Time of Service: Jan 11, 2017 at 19:34 Chief Complaint: Hypertensive Urgency, Malignant, Nausea & Vomiting Primary Care Physician: Yashira Arizmendi C.R.N.P. History of Present Illness Source: patient The patient is a 51-year-old female who presents to the emergency department with complaints of intermittent nausea and vomiting that began about 10 hours prior to arrival. She reports that she's been taking her medications as directed. Her previous hospital admissions are: 11/27 to 11/29, 12/20-12/21, and -12/25, for similar instances of nausea with vomiting and elevated blood pressure. Past Medical/Surgical History Medical Problems: (1) Atherosclerosis Nos Status: Chronic (2) Hypertension Nos Status: Chronic (3) Multiple Sclerosis Status: Chronic Family History Cancer Diabetes mellitus Heart disease Hypertension Lung disease Social History Smoking Status: Light Tobacco Smoker Smokeless Tobacco Use: No Drug Use: marijuana Marital Status: Housing status: lives with family Occupational Status: employed Immunizations History of Influenza Vaccine: Unknown History of Tetanus Vaccine?: Unknown History of Pneumococcal: Unknown History of Hepatitis B Vaccine: Unknown Multi-Drug Resistant Organisms History of MDRO: No Allergies Coded Allergies: Doxycycline (Verified Allergy, Unknown, rash, 01/11/17) Iodinated Diagnostic Agents (Verified Allergy, Unknown, `, 01/11/17) Latex1 -Allergic Contact Dermititis (Verified Allergy, Unknown, RASH, 01/11) Meperidine (Verified Allergy, Unknown, HIVES, VOMITING, 01/11/17) Prochlorperazine (Verified Allergy, Unknown, ., 01/11/17) Bolton (Verified Allergy, Unknown, HIVES, 01/11/17) Tomato (Verified Allergy, Unknown, HIVES, 01/11/17) Uncoded Allergies: Hernandez Beans (Allergy, Unknown, HIVES, 11/27/16) Home Medications Scheduled Aspirin (Aspirin Chewable), 81 MG PO DAILY Atorvastatin (Lipitor), 20 MG PO HS Hydralazine HCl (Hydralazine HCl), 25 MG PO BID Metoprolol Tartrate (Metoprolol Tartrate), 100 MG PO BID Multivitamin (Multivitamin), 1 TAB PO DAILY Review of Systems The patient denies chest pain, palpitations, shortness of breath, cough, lower extremity swelling, vision change, hearing change, sore throat, fevers, chills, sweats, weight change, fatigue, pelvic pain, blood in urine or stool, dysuria, urinary frequency or urgency, lightheadedness, dizziness, headache, memory loss , rash, abnormal bruising or bleeding, imbalance, focal or generalized weakness , numbness or tingling in arms or legs, arthralgias or myalgias, back or neck pain, night sweats, or allergy symptoms. The review of systems is otherwise negative other than for that already noted above, and at least 10 systems have been reviewed. Physical Exam Vital Signs Date Time Temp Pulse Resp B/P (MAP) Pulse Ox O2 Delivery O2 Flow Rate FiO2 01/11/17 19:23 168/93 (118) 01/11/17 19:22 37.4 107 20 181/107 (131) 97 Room Air 01/11/17 18:15 106 17 166/114 98 01/11/17 17:42 106 17 166/114 98 Room Air 01/11/17 16:50 95 Room Air 01/11/17 16:39 108 17 178/112 95 Room Air 01/11/17 16:08 99 16 182/107 97 01/11/17 15:17 97 16 189/118 97 01/11/17 15:07 85 17 206/113 97 01/11/17 14:50 88 200/131 98 Room Air 01/11/17 14:39 160/113 01/11/17 13:47 36.7 77 18 206/115 98 Room Air The patient is awake, well-developed and adequately nourished, alert and oriented 3, normocephalic and atraumatic, lying in bed and in no acute distress. HEENT--PERRL, EOMI, mucous membranes and oropharynx normal. Neck--supple, no JVD or bruits, thyroid normal, trachea midline, no adenopathy. Heart--normal S1 and S2, no extra beats, no murmurs, rubs or gallops. Lungs--clear bilaterally with good air movement, no respiratory distress, no accessory muscle use. Abdomen--normal bowel sounds and soft, nontender and nondistended, no hernias or masses, no organomegaly. Extremities--no cyanosis, clubbing or edema. There are good distal pulses b/l. Dermatologic--normal skin turgor, normal color, warm and dry, no abnormal lymph nodes, no rash. Neurologic--cranial nerves II through XII grossly intact, motor and sensory examination normal. Rheumatologic--normal range of motion, nontender, muscles and joints. Psychiatric--normal affect. Diagnostics Laboratory Results Results Past 24 Hours Test 01/11/17 14:20 Range/Units White Blood Count 9.79 4.8-10.8 K/uL Red Blood Count 4.38 4.2-5.4 M/uL Hemoglobin 13.4 12.0-16.0 g/dL Hematocrit 40.5 37-47 % Mean Corpuscular Volume 92.5 80-100 fL Mean Corpuscular Hemoglobin 30.6 25-34 pg Mean Corpuscular Hemoglobin Concent 33.1 32-36 g/dl Platelet Count 407 130-400 K/uL Mean Platelet Volume 9.3 7.4-10.4 fL Neutrophils (%) (Auto) 85.6 % Lymphocytes (%) (Auto) 11.1 % Monocytes (%) (Auto) 2.8 % Eosinophils (%) (Auto) 0.0 % Basophils (%) (Auto) 0.3 % Neutrophils # (Auto) 8.38 1.4-6.5 K/uL Lymphocytes # (Auto) 1.09 1.2-3.4 K/uL Monocytes # (Auto) 0.27 0.11-0.59 K/uL Eosinophils # (Auto) 0.00 0-0.5 K/uL Basophils # (Auto) 0.03 0-0.2 K/uL RDW Standard Deviation 43.0 36.4-46.3 fL RDW Coefficient of Variation 12.7 11.5-14.5 % Immature Granulocyte % (Auto) 0.2 % Immature Granulocyte # (Auto) 0.02 0.00-0.02 K/uL Sodium Level 139 136-145 mmol/L Potassium Level 3.6 3.5-5.1 mmol/L Chloride Level 103 98-107 mmol/L Carbon Dioxide Level 24 21-32 mmol/L Anion Gap 12.0 3-11 mmol/L Blood Urea Nitrogen 23 7-18 mg/dl Creatinine 0.70 0.60-1.20 mg/dl Est Creatinine Clear Calc Drug Dose 86.5 ml/min Estimated GFR () 117.1 Estimated GFR (Non- 101.0 BUN/Creatinine Ratio 32.7 10-20 Random Glucose 129 70-99 mg/dl Calcium Level 9.1 8.5-10.1 mg/dl Total Bilirubin 0.4 0.2-1 mg/dl Direct Bilirubin < 0.1 0-0.2 mg/dl Aspartate Amino Transf (AST/SGOT) 17 15-37 U/L Alanine Aminotransferase (ALT/SGPT) 29 12-78 U/L Alkaline Phosphatase 67 45-117 U/L Total Creatine Kinase 102 26-192 U/L Creatine Kinase MB 1.9 0.5-3.6 ng/ml Creatine Kinase MB Ratio 1.9 0-3.0 Troponin I 0.026 0-0.045 ng/ml Total Protein 8.1 6.4-8.2 gm/dl Albumin 4.2 3.4-5.0 gm/dl Lipase 108 73-393 U/L EKG EKG shows normal sinus rhythm with sinus arrhythmia at 82 bpm, incomplete right bundle branch block, no significant change compared to 12/24/2016. Impression Assessment and Plan Uncontrolled hypertension--the patient had a significant workup in the past including negative testing for serotonin syndrome, pheochromocytoma and aldosteronism. Medications were changed at last visit from verapamil SR 180 mg by mouth twice a day and hydralazine 25 mg by mouth twice a day to metoprolol tartrate 100 mg by mouth twice a day and hydralazine 25 mg by mouth twice a day. She was noted through her history to have had a diagnosis of renal artery stenosis in the past, and will therefore order an MRA of the renal arteries to further assess tonight. Continue aspirin 81 mg by mouth daily. Episodic nausea and vomiting, which the patient associates with elevated blood pressure. She's had a complete GI workup was seen by Dr. Doan at the last hospitalization. Unclear etiology at this time. Recheck a urine drug screen, as she was marijuana positive on confirmatory testing. Hypercholesterolemia--continue Lipitor 20 mg by mouth at bedtime. Level of Care Telemetry Advanced Directives Existing Advance Directive: No Existing Living Will: Yes Existing Power of Shoe Repairman: Yes Resuscitation Status FULL RESUSCITATION VTE Prophylaxis VTE Risk Assessment Done? Y/N: Yes Risk Level: Moderate Given or contraindicated: SCD's
[2017-01-11] MEDS: ATORVASTATIN 20 MG TAB PO SCH (21:02)
[2017-01-11] MEDS: METOPROLOL TARTRATE 100 MG TAB PO SCH (21:02)
[2017-01-12] VITALS (10 sets, daily range): BP systolic 92–153; BP diastolic 52–97; PULSE 61–88; TEMP 36.5–37.5; O2SAT 93–98
[2017-01-12 04:28] LABS: BENZODIAZEPINE, URINE NEG (NEG); COCAINE,URINE NEG (NEG); PHENCYCLIDINE, URINE NEG (NEG)
[2017-01-12 06:35] LABS: BASO % 0.5 %; BASO ABS # 0.04 K/uL (0-0.2); COMPLETE YES; EOS % 1.5 %; HEMATOCRIT 37.3 % (37-47); LYMPH % 37.5 %; LYMPH ABS # 2.93 K/uL (1.2-3.4); MEAN CORPUSCULAR HEMOGLOBIN 30.2 pg (25-34); MEAN CORPUSCULAR HGB CONC 32.4 g/dl (32-36); MEAN PLATELET VOLUME 9.7 fL (7.4-10.4); MONO % 12.4 %; NEUT % 48.1 %; PLATELET COUNT 356 K/uL (130-400); RED BLOOD COUNT 4.01 M/uL (4.2-5.4); WHITE BLOOD COUNT 7.82 K/uL (4.8-10.8)
[2017-01-12 07:15] LABS: BUN/CREATININE RATIO 24.1 (10-20); CALCIUM 9.1 mg/dl (8.5-10.1); CREATININE 0.74 mg/dl (0.60-1.20); MAGNESIUM 2.2 mg/dl (1.8-2.4); POTASSIUM 3.2 mmol/L (3.5-5.1)
[2017-01-12] MEDS: ASPIRIN 81 MG ECTAB PO SCH (08:14)
[2017-01-12] MEDS: METOPROLOL TARTRATE 100 MG TAB PO SCH ×2 (08:14→20:44)
[2017-01-12] MEDS: MULTIVITAMIN TAB PO SCH (08:15)
--- NOTE | 2017-01-12 08:59 | Family Medicine Progress Note ---
Progress Note Date of Service Jan 12, 2017. Subjective Pt evaluation today including: conversation w/ patient, conversation w/ family , physical exam, chart review, lab review, review of studies, conversation w/ test consultant, review of inpatient medication list Patient states she is currently feeling well. She says that her episodes of vomiting occur sporadically, despite compliance to medications. She states at the time of the uncontrolled BP and vomiting, she also has facial flushing and significant diaphoresis. She denies associated CP, SOB, lightheadedness, ocular/ vision changes, abdominal tenderness. At this time, she is also denying nausea and has not vomited since arrival in the ED. She has been unable to identify a trigger. She was well prior, and denies recent URI and UTI symptoms. She did however have some diarrhea over the last 2 days. She had originally attributed symptoms to menopausal hot flashes, but states she had a hysterectomy with bilateral salpingo-oophorectomy ~9 years ago. She also admits to 20 years of marijuana usage. All Other Systems: Reviewed and Negative Objective Vital Signs Date Time Temp Pulse Resp B/P (MAP) Pulse Ox O2 Delivery O2 Flow Rate FiO2 01/12/17 08:19 36.8 77 16 111/70 (84) 98 Room Air 01/12/17 04:00 Room Air 01/12/17 04:00 36.8 80 17 124/76 (92) 96 Room Air 01/12/17 00:57 88 108/70 (83) 87 111/69 (83) 80 92/52 (65) 01/12/17 00:00 37.1 78 17 107/68 (81) 94 Room Air 01/11/17 23:59 Room Air 01/11/17 20:03 Room Air 01/11/17 19:23 168/93 (118) 01/11/17 19:22 37.4 107 20 181/107 (131) 97 Room Air 01/11/17 18:15 106 17 166/114 98 01/11/17 17:42 106 17 166/114 98 Room Air 01/11/17 16:50 95 Room Air 01/11/17 16:39 108 17 178/112 95 Room Air 01/11/17 16:08 99 16 182/107 97 01/11/17 15:17 97 16 189/118 97 01/11/17 15:07 85 17 206/113 97 01/11/17 14:50 88 200/131 98 Room Air 01/11/17 14:39 160/113 01/11/17 13:47 36.7 77 18 206/115 98 Room Air Laboratory Results Results Past 24 Hours Test 01/12/17 03:43 01/12/17 05:50 01/12/17 16:11 01/12/17 23:52 Range/Units Urine Opiates Screen NEG NEG Urine Methadone, Qualitative NEG NEG Urine Barbiturates NEG NEG Urine Phencyclidine (PCP) Level NEG NEG Ur Amphetamine/Methamphetamine NEG NEG MDMA (Ecstasy) Screen NEG NEG Urine Benzodiazepines Screen NEG NEG Urine Cocaine Metabolite NEG NEG Urine Marijuana (THC) POS NEG White Blood Count 7.82 4.8-10.8 K/uL Red Blood Count 4.01 4.2-5.4 M/uL Hemoglobin 12.1 12.0-16.0 g/dL Hematocrit 37.3 37-47 % Mean Corpuscular Volume 93.0 80-100 fL Mean Corpuscular Hemoglobin 30.2 25-34 pg Mean Corpuscular Hemoglobin Concent 32.4 32-36 g/dl Platelet Count 356 130-400 K/uL Mean Platelet Volume 9.7 7.4-10.4 fL Neutrophils (%) (Auto) 48.1 % Lymphocytes (%) (Auto) 37.5 % Monocytes (%) (Auto) 12.4 % Eosinophils (%) (Auto) 1.5 % Basophils (%) (Auto) 0.5 % Neutrophils # (Auto) 3.76 1.4-6.5 K/uL Lymphocytes # (Auto) 2.93 1.2-3.4 K/uL Monocytes # (Auto) 0.97 0.11-0.59 K/uL Eosinophils # (Auto) 0.12 0-0.5 K/uL Basophils # (Auto) 0.04 0-0.2 K/uL RDW Standard Deviation 44.2 36.4-46.3 fL RDW Coefficient of Variation 12.9 11.5-14.5 % Immature Granulocyte % (Auto) 0.0 % Immature Granulocyte # (Auto) 0.00 0.00-0.02 K/uL Sodium Level 138 136-145 mmol/L Potassium Level 3.2 3.5-5.1 mmol/L Chloride Level 102 98-107 mmol/L Carbon Dioxide Level 25 21-32 mmol/L Anion Gap 11.0 3-11 mmol/L Blood Urea Nitrogen 18 7-18 mg/dl Creatinine 0.74 0.60-1.20 mg/dl Est Creatinine Clear Calc Drug Dose 81.8 ml/min Estimated GFR () 109.5 Estimated GFR (Non- 94.5 BUN/Creatinine Ratio 24.1 10-20 Random Glucose 96 70-99 mg/dl Calcium Level 9.1 8.5-10.1 mg/dl Magnesium Level 2.2 1.8-2.4 mg/dl Assessment and Plan 51 year old female admitted for the 4th time (previously 11/27-11/29, 12/20-12/21, and 12/23-12/25 for similar symptoms) with complaints of intermittent nausea and vomiting and hypertensive urgency of unknown etiology. ?Carcinoid syndrome - previous one time serotonin checked, but spot check may limit accuracy - 24 urine collection for 5-HIAA Uncontrolled HTN - significant workup in the past including negative testing for serotonin syndrome, pheochromocytoma and aldosteronism. She was noted through her history to have had a diagnosis of renal artery stenosis in the past , however MRA of the renal arteries (01/12) show patent arteries. - Continue metoprolol 100mg BID + hydralazine 25mg BID Episodic nausea and vomiting - patient associates with elevated blood pressure. Complete GI workup by Dr. Doan negative. Unclear etiology at this time. Urine screen positive for marijuana. - Zofran 4mg PRN HLD - Continue aspirin 81mg daily and Lipitor 20mg daily VTE PPx - Hep SC Dispo - Telemetry FULL CODE Resident Physician Supervision Note: I was present with PGY 1 Dr. Julia Ruiz during the history and exam. I discussed the case with the resident and agree with the findings and plan as documented in the note. Any exceptions or clarifications are listed here: none. Pt feels "great" and wants to go home. Tele normal since admission. no further severe BP spikes, nausea, emesis, diaphoresis. denies anxiety. gets hot flushes and has been getting these for some time. VSS BPs mildly elevated at times no fever gen - nad skin - mildly sweaty but no diaphoresis or rash or redness neck - no JVD heart - RRR, s1, s2 lungs - CTA b/l abd - soft, NT, ND, BS+ ext - no edema labs - cbc, BMP nl except for mildly Low K A/P: Hypertensive urgency with severe diaphoresis, flushing of the face, copious nausea with vomiting, and upper abdominal pain. 4th admission for such since November. I reviewed the patient's record with Dr. Ruiz. Extensive w/u to date negative including - 1. MRI brain 2. stress echo (although didn't hit predicted target HR) 3. CT abd/pelvis 4. EGD 5. MRA of the renal arteries 6. renin/sharon levels 7. 24-hour urine for pheochromocytoma 8. 24-hour urine for porphyria 9. TSH, cortisol, etc Has seen GI, cardiology, and neuro. 2 neuro consultants question the diagnosis of MS; even if MS is present they feel her current symptoms would not be secondary to such. we spoke with radiology today - MRA abdomen, although not mentioned in report, showed patent mesenterics and celiac arteries. At this point I am at a loss as to the specific etiology of these spells. Reasonable to r/o carcinoid syndrome. To that end will get 24-hour urine for serotonin metabolites. Other possibilities - cyclic vomiting syndrome, but not sure this dx would suddenly started in a 51-yo, and she has no prior h/o migraines or headaches. Could she have some for of anatomical GI issue (intermittent malrotation, etc) leading to episodes of vomiting? Would be unusual... Could her episodes be cardiac related? 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 Doubt post-menopausal hot flushes (vomiting, BP elevation does not fit with such ). Observe overnight; finish urine collection likely d/c tomorrow Documented By: Franck Hager MD Continued [facility] stay due to: other Discharge planning: home Resident Tracking Resident Involvement: Resident Care Provided Care Provided: Adult Hospital Medicine
[2017-01-12] MEDS ORDERED: POTASSIUM CHLORIDE 10 MEQ TABCR PO STA (10:50)
--- NOTE | 2017-01-12 12:47 | Neurology Consultation ---
Neurology Consultation Date of Consultation: Jan 12, 2017. Attending Physician: Franck Hager MD Primary Care Physician: Yashira Arizmendi C.R.N.P. Reason for Consultation: Consultation for uncontrolled blood pressure and MS History of Present Illness Source: patient, clinic records, hospital records This is a 51-year-old female who presents for accelerated hypertension. Patient was previously seen last month by Dr. Melendrez for nausea and question of MS in the hospital. Patient's diagnosis of MS is not clearly established. Patient reports that she saw Dr. Wen about 15 years ago for an episode of right-sided numbness that lasted for 11 days. Apparently stroke workup was unremarkable. She did report having a mild headache at the time. She denies any migraine history. She was noted on imaging to have greater than expected at T2 hyperintensities brain and question demyelinating disorder versus small vessel ischemic disease. Patient reports that she had been checked for Lyme with this initial presentation and it was negative. She reports that she had a spinal tap with Dr. Wen that was negative for MS. In 2008 she had another episode of feeling off balance and that her right foot was sticking to the floor. She saw reportedly Dr. Melendrez at that time for a vascular workup. She then went to Dr. Jones for second opinion and then was diagnosed with multiple sclerosis based off her evaluation and imaging. Patient reports that she was tried on Copaxone with severe site reaction and Avonex which gave her severe flulike symptoms all the time. She has not been on disease modifying therapy since 2011. As part of her workup in the past she reportedly also had an MRI of her cervical spine which did not show any significant lesions consistent with MS. Patient denies any additional strokelike episodes or episodes concerning for MS since she was initially evaluated. She reports some vision changes in her right eye due to cataracts. She denies any other numbness or focal weakness. She has no other neurological concerns at this time. Per reviewing her outpatient workup when she followed up with our physician bilingual medical assistant in clinic last month, MRI of the brain from 2008 at [facility] was reviewed to MRI of her brain in [place] which showed stable white matter spots. Her cervical MRI in 2011 was negative for MS plaques as well as her lumbar spine in 2011. The patient last month had an MRI of her brain which did show diffuse white matter lesions but otherwise appears unchanged. While the radiology report noted that he could be consistent with demyelinating disease, per my review also could be consistent with small vessel ischemic changes. Spinal tap was performed as an outpatient. Opening pressure was normal at 10. Overall unremarkable CSF. There was 2 bands noted in the CSF that was also seen in the serum. Overall this was NOT supportive of MS. CSF cytology was also negative for malignant cells In 2008 the patient also had somatosensory evoked potentials and visual evoked potentials which were unremarkable. In terms of her history of hypertension, the patient reports that her blood pressure is only been uncontrolled since June. She reports that there is even a few years in which she went off of blood pressure medications. She denies any hypotension or orthostatic hypotension episodes. She reports only rare nausea with uncontrolled hypertension. She reports that there is been a few episodes in which her face is gotten really flashing red uncontrolled hypertension. No other skin changes. Past Medical/Surgical History Medical Problems: (1) Hypertensive emergency Status: Acute (2) Malignant hypertension Status: Acute Past medical history sniffing for hypertension, CAD, dyslipidemia Family History Father: coronary artery disease, stroke Mother: asthma, COPD Sibling(s): coronary artery disease, stroke Social History Patient reports she is normally independent in her activities of daily living. Former tobacco use. Rare alcohol use. She does use marijuana Smoking Status: Current every day smoker Smokeless Tobacco Use: No Drug Use: marijuana Marital Status: Housing Status: lives with family Occupation Status: employed Allergies Coded Allergies: Doxycycline (Verified Allergy, Unknown, rash, 01/11/17) Iodinated Diagnostic Agents (Verified Allergy, Unknown, `, 01/11/17) Latex1 -Allergic Contact Dermititis (Verified Allergy, Unknown, RASH, 01/11) Meperidine (Verified Allergy, Unknown, HIVES, VOMITING, 01/11/17) Prochlorperazine (Verified Allergy, Unknown, ., 01/11/17) Providence (Verified Allergy, Unknown, HIVES, 01/11/17) Tomato (Verified Allergy, Unknown, HIVES, 01/11/17) Uncoded Allergies: Hernandez Beans (Allergy, Unknown, HIVES, 11/27/16) Current Inpatient Medications Current Inpatient Medications Medications (Trade) Dose Ordered Sig/Yeimy Route Start Time Stop Time Status Last Admin Dose Admin Acetaminophen (Tylenol Tab) 650 mg Q4H PRN PO 01/11/17 17:00 02/10/17 16:59 01/11/17 20:50 650 MG Nitroglycerin (Nitrostat Tab) 0.4 mg UD PRN SL 01/11/17 17:00 02/10/17 16:59 Aspirin (Ecotrin Tab) 81 mg QAM PO 01/12/17 09:00 02/11/17 08:59 01/12/17 08:14 81 MG Atorvastatin Calcium (Lipitor Tab) 20 mg HS PO 01/11/17 21:00 02/10/17 20:59 01/11/17 21:02 20 MG Hydralazine HCl (Apresoline Tab) 25 mg BID PO 01/11/17 21:00 02/10/17 20:59 01/12/17 08:15 25 MG Metoprolol Tartrate (Lopressor Tab) 100 mg BID PO 01/11/17 21:00 02/10/17 20:59 01/12/17 08:14 100 MG Multivitamins (Multivitamin Tab) 1 tab DAILY PO 01/12/17 09:00 02/11/17 08:59 01/12/17 08:15 1 TAB Ondansetron HCl (Zofran Inj) 4 mg Q6H PRN IV 01/11/17 17:00 02/10/17 16:59 Acetaminophen 100 ml @ 400 mls/hr Q8H PRN IV 01/11/17 17:00 02/10/17 16:59 Ketorolac Tromethamine (Toradol Inj) 30 mg Q6H PRN IV 01/11/17 17:00 01/16/17 16:59 Miscellaneous (Iv Fluids Completed) 1 ea PRN PRN N/A 01/11/17 17:45 01/11/18 17:44 Gadobutrol (Gadavist) 6 mmol UD PRN IV 01/11/17 19:15 01/15/17 19:14 Review of Systems Complete review systems otherwise negative except for the above noted in history of present illness Physical Exam Vital Signs (Past 24 Hrs): Date Time Temp Pulse Resp B/P (MAP) Pulse Ox O2 Delivery O2 Flow Rate FiO2 01/12/17 12:05 36.5 63 16 153/97 (115) 98 Room Air 01/12/17 08:19 36.8 77 16 111/70 (84) 98 Room Air 01/12/17 08:00 98 Room Air 01/12/17 04:00 Room Air 01/12/17 04:00 36.8 80 17 124/76 (92) 96 Room Air 01/12/17 00:57 88 108/70 (83) 87 111/69 (83) 80 92/52 (65) 01/12/17 00:00 37.1 78 17 107/68 (81) 94 Room Air 01/11/17 23:59 Room Air 01/11/17 20:03 Room Air 01/11/17 19:23 168/93 (118) 01/11/17 19:22 37.4 107 20 181/107 (131) 97 Room Air 01/11/17 18:15 106 17 166/114 98 01/11/17 17:42 106 17 166/114 98 Room Air 01/11/17 16:50 95 Room Air 01/11/17 16:39 108 17 178/112 95 Room Air 01/11/17 16:08 99 16 182/107 97 01/11/17 15:17 97 16 189/118 97 01/11/17 15:07 85 17 206/113 97 01/11/17 14:50 88 200/131 98 Room Air 01/11/17 14:39 160/113 01/11/17 13:47 36.7 77 18 206/115 98 Room Air Gen.: Patient is alert and sitting in bed, in no acute distress. HEENT: Normocephalic /atraumatic, no scleral icterus Heart: Regular rate and rhythm Extremities: No gross deformities or rashes noted Neurological examination: Mental status: Patient is alert and oriented x3. Attention and concentration normal for the situation. Good fund of knowledge. Able to give her own history. Speech is fluent without any dysarthria or aphasia noted Cranial nerve: Funduscopic examination was unremarkable. No papilledema. Pupils equally round and reactive to light. Extraocular muscles intact without nystagmus. No facial asymmetry noted. Facial sensation intact. Tongue is midline. Good palatal elevation. Good shoulder shrug bilaterally. Hearing grossly intact to voice. Strength: 5/5 both proximal and distally in all extremities. There is no arm drift. Tone is normal. Sensation: Grossly intact to light touch in all extremities. Deep tendon reflexes: +1 in bilateral biceps, brachioradialis and patellar. Toes were downgoing to plantar stimulation Coordination: Patient had good finger to nose without dysmetria Station within the bed was normal Laboratory Results Past 24 Hours: 01/12/17 05:50 Red Blood Count 4.01, Mean Corpuscular Volume 93.0, Mean Corpuscular Hemoglobin 30.2, Mean Corpuscular Hemoglobin Concent 32.4, Mean Platelet Volume 9.7, Neutrophils (%) (Auto) 48.1, Lymphocytes (%) (Auto) 37.5, Monocytes (%) (Auto) 12.4, Eosinophils (%) (Auto) 1.5, Basophils (%) (Auto) 0.5, Neutrophils # (Auto ) 3.76, Lymphocytes # (Auto) 2.93, Monocytes # (Auto) 0.97, Eosinophils # (Auto ) 0.12, Basophils # (Auto) 0.04 01/12/17 05:50 Test 01/11/17 14:20 01/12/17 03:43 01/12/17 05:50 Total Bilirubin 0.4 mg/dl (0.2-1) Direct Bilirubin < 0.1 mg/dl (0-0.2) Aspartate Amino Transf (AST/SGOT) 17 U/L (15-37) Alanine Aminotransferase (ALT/SGPT) 29 U/L (12-78) Alkaline Phosphatase 67 U/L (45-117) Total Creatine Kinase 102 U/L (26-192) Creatine Kinase MB 1.9 ng/ml (0.5-3.6) Creatine Kinase MB Ratio 1.9 (0-3.0) Troponin I 0.026 ng/ml (0-0.045) Total Protein 8.1 gm/dl (6.4-8.2) Albumin 4.2 gm/dl (3.4-5.0) Lipase 108 U/L (73-393) Urine Opiates Screen NEG (NEG) Urine Methadone, Qualitative NEG (NEG) Urine Barbiturates NEG (NEG) Urine Phencyclidine (PCP) Level NEG (NEG) Ur Amphetamine/Methamphetamine NEG (NEG) MDMA (Ecstasy) Screen NEG (NEG) Urine Benzodiazepines Screen NEG (NEG) Urine Cocaine Metabolite NEG (NEG) Urine Marijuana (THC) POS (NEG) White Blood Count 7.82 K/uL (4.8-10.8) Red Blood Count 4.01 M/uL (4.2-5.4) Hemoglobin 12.1 g/dL (12.0-16.0) Hematocrit 37.3 % (37-47) Mean Corpuscular Volume 93.0 fL (80-100) Mean Corpuscular Hemoglobin 30.2 pg (25-34) Mean Corpuscular Hemoglobin Concent 32.4 g/dl (32-36) Platelet Count 356 K/uL (130-400) Mean Platelet Volume 9.7 fL (7.4-10.4) Neutrophils (%) (Auto) 48.1 % Lymphocytes (%) (Auto) 37.5 % Monocytes (%) (Auto) 12.4 % Eosinophils (%) (Auto) 1.5 % Basophils (%) (Auto) 0.5 % Neutrophils # (Auto) 3.76 K/uL (1.4-6.5) Lymphocytes # (Auto) 2.93 K/uL (1.2-3.4) Monocytes # (Auto) 0.97 K/uL (0.11-0.59) Eosinophils # (Auto) 0.12 K/uL (0-0.5) Basophils # (Auto) 0.04 K/uL (0-0.2) RDW Standard Deviation 44.2 fL (36.4-46.3) RDW Coefficient of Variation 12.9 % (11.5-14.5) Immature Granulocyte % (Auto) 0.0 % Immature Granulocyte # (Auto) 0.00 K/uL (0.00-0.02) Anion Gap 11.0 mmol/L (3-11) Est Creatinine Clear Calc Drug Dose 81.8 ml/min Estimated GFR () 109.5 Estimated GFR (Non- 94.5 BUN/Creatinine Ratio 24.1 (10-20) Calcium Level 9.1 mg/dl (8.5-10.1) Magnesium Level 2.2 mg/dl (1.8-2.4) Imaging As noted above in history of present illness Impression This is a 51-year-old female who presents with accelerated hypertension and a recent history of difficult to control blood pressure. Patient's past diagnosis of MS was not well established. Patient has had multiple confirmatory test which has NOT been supportive of a diagnosis of MS. More then likely the T2 hyperintensities seen on MRI are more likely indicative of small vessel ischemic change (possible secondary to hypertension) rather than demyelinating disease. Overall I do not think the patient has multiple sclerosis. In addition I do not see any signs or symptoms consistent with an autonomic neuropathy that could contribute to difficult to control blood pressure. Plan No additional neurological recommendations at this time. Patient may follow up in neurology clinic as previously indicated. Thank you for allowing me to participate in this patient's care. If there is any questions or concerns, feel free to call/page me
[2017-01-12] MEDS: ATORVASTATIN 20 MG TAB PO SCH (20:43)
[2017-01-13] VITALS: BP 123/82; PULSE 69; TEMP 37.4; O2SAT 95
[2017-01-13 04:12] VITALS: BP 149/81; PULSE 61; TEMP 36.9; O2SAT 96
[2017-01-13 07:36] LABS: BASO % 1.1 %; BASO ABS # 0.07 K/uL (0-0.2); COMPLETE YES; EOS % 2.9 %; HEMATOCRIT 38.5 % (37-47); IG% 0.2 %; LYMPH % 33.8 %; LYMPH ABS # 2.25 K/uL (1.2-3.4); MEAN CELL VOLUME 93.9 fL (80-100); MEAN CORPUSCULAR HEMOGLOBIN 31.2 pg (25-34); MEAN CORPUSCULAR HGB CONC 33.2 g/dl (32-36); MEAN PLATELET VOLUME 9.5 fL (7.4-10.4); MONO % 9.2 %; NEUT % 52.8 %; PLATELET COUNT 340 K/uL (130-400); WHITE BLOOD COUNT 6.66 K/uL (4.8-10.8)
[2017-01-13 07:44] LABS: INR 0.9 (0.9-1.1); PROTHROMBIN TIME (PATIENT) 9.9 SECONDS (9.0-12.0)
[2017-01-13 08:01] VITALS: BP 135/84; PULSE 66; TEMP 36.8; O2SAT 96
[2017-01-13] MEDS: ASPIRIN 81 MG ECTAB PO SCH (08:09)
[2017-01-13] MEDS: MULTIVITAMIN TAB PO SCH (08:09)
[2017-01-13] MEDS: METOPROLOL TARTRATE 100 MG TAB PO SCH (08:09)
[2017-01-13 08:27] LABS: BUN/CREATININE RATIO 20.3 (10-20); CREATININE 0.75 mg/dl (0.60-1.20); MAGNESIUM 2.2 mg/dl (1.8-2.4); POTASSIUM 4.1 mmol/L (3.5-5.1)
[2017-01-13] MEDS ORDERED: HEPARIN SOD 5000 UNIT/0.5 ML CARP SQ SCH (09:00)
[2017-01-13 09:11] LABS: CALCIUM 9.4 mg/dl (8.5-10.1)
[2017-01-13 11:54] VITALS: BP 145/88; PULSE 61; TEMP 37.2; O2SAT 96
[2017-01-13 16:00] VITALS: BP 124/83; PULSE 68; TEMP 36.9; O2SAT 95
[2017-01-13] MEDS ORDERED: LISI-725 PO (16:18)
--- NOTE | 2017-01-13 16:22 | Discharge Instructions ---
Discharge Instructions Date of Service Jan 13, 2017. Admission Reason for Admission: Hypertensive Urgency, Malignant, Nausea & Vomiting Discharge Discharge Diagnosis / Problem: Hypertensive Emergency Discharge Goals Goal(s): Decrease discomfort, Improve function, Increase independence, Improve disease control, Improve nutritional status, Learn about illness Activity Recommendations Activity Limitations: resume your previous activity . Instructions / Follow-Up Instructions / Follow-Up Please follow up with your primary care provider this week. At this visit your Primary Care Provider should order blood work to check your renal (kidney) function because your new medication (Lisinopril) may affect your kidneys in a small minority of patients. Your new medication is called Lisinopril and you should take one 20mg pill daily. Please return to the ER if you experience a recurrence of the symptoms that brought you to the hospital. Current Hospital Diet Patient's current hospital diet: AHA Diet (Heart Healthy) Discharge Diet Recommended Diet: Regular Diet Pending Studies Studies pending at discharge: yes List of pending studies: Urine 24hr 5HIAA looking for possible carcinoid syndrome. Laboratory Results Hemoglobin A1c Test 11/28/16 07:35 Range/Units Estimated Average Glucose 111 mg/dl Hemoglobin A1c 5.5 4.5-5.6 % Lipid Panel Test 11/29/16 06:23 Range/Units Triglycerides Level 218 H 0-150 mg/dl Cholesterol Level 275 H 0-200 mg/dl HDL Cholesterol 61 mg/dl Cholesterol/HDL Ratio 4.5 LDL Cholesterol, Calculated 170 mg/dl Medical Emergencies . Who to Call and When: Medical Emergencies: If at any time you feel your situation is an emergency, please call 911 immediately. . Non-Emergent Contact Non-Emergency issues call your: Primary Care Provider . . "Provider Documentation" section prepared by Walt Malcolm. . VTE Core Measure Inpt VTE Proph given/why not?: SCD's Resident Involvement: Resident Care Provided Care Provided: Adult Hospital Medicine
--- NOTE | 2017-01-13 16:25 | Discharge Summary ---
Discharge Summary Date of Service Jan 13, 2017. (Walt Malcolm M.D.) Discharge Summary Admission Date: Jan 11, 2017 at 16:50 Discharge Date: Jan 13, 2017 Discharge Disposition: Home Principal Diagnosis: Hypertensive Emergency Immunizations: Have You Had Influenza Vaccine: Unknown History of Tetanus Vaccine?: Unknown History of Pneumococcal: Unknown History of Hepatitis B Vaccine: Unknown Procedures: MRA ABDOMEN COMBO CLINICAL HISTORY: HYPERTENSIVE URGENCY, ATTENTION RENAL ARTERIES COMPARISON STUDY: Doppler renal ultrasound November 28, 2016. TECHNIQUE: Unenhanced and contrast-enhanced MRA of the abdominal aorta and renal arteries was performed. Injection of 6 cc of Gadavist IV was uneventful. FINDINGS: There is no hydronephrosis. No renal lesions are identified. The liver, spleen, adrenal glands and pancreas are unremarkable on this examination. There is no abdominal lymphadenopathy or ascites. The caliber of the abdominal aorta is normal. There is mild atherosclerotic plaque within the abdominal aorta. Noncontrast MRA demonstrates no significant stenosis within the bilateral renal arteries. There is an accessory left renal artery. Due to motion artifact, the contrast-enhanced MRA is significantly compromised. No definite stenosis is identified within the renal arteries. IMPRESSION: Contrast-enhanced MRA significantly compromised by motion artifact. However, no significant renal artery stenosis on the unenhanced MRA which is considered diagnostic. No convincing MR evidence for renal artery stenosis. (Walt Malcolm M.D.) Medication Reconciliation New Medications: Lisinopril (Zestril) 20 Mg Tab 20 MG PO DAILY for 30 Days, #30 TAB Continued Medications: Aspirin (Aspirin Chewable) 81 Mg Chew 81 MG PO DAILY Atorvastatin (Lipitor) 20 Mg Tab 20 MG PO HS, TAB Hydralazine HCl (Hydralazine HCl) 25 Mg Tab 25 MG PO BID, #60 TABS 3 Refills Metoprolol Tartrate (Metoprolol Tartrate) 100 Mg Tab 100 MG PO BID for 30 Days, #60 TAB Take 1 tablet by mouth twice a day. Multivitamin (Multivitamin) Tab 1 TAB PO DAILY, TAB Discharge Exam Pt was seen and examined at bedside. Has not had any hypertensive symptoms ( vomiting, ears burning) since being admitted. Telemetry monitoring showed sinus rhythm in the 60s-70s. ROS: Pt denies chest pain, denies SOB, denies headaches, denies vision changes, denies vomiting, denies nausea, denies diarrhea, denies ears burning, denies facial flushing, denies neck stiffness, denies changes in mental status. 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 She received Labetalol and Hydralazine in the ER which did not immediately break her hypertension. She was admitted and eventually became normotensive around midnight on day of admission. A multitude of etiologies for her HTN were considered and no definitive diagnoses was reached. She has had an extensive workup on previous admissions. She below for complete list. 24hr urine collection for 5-HIAA is still pending. Pt's symptoms and HTN have completely resolved in the hospital. Telemetry monitoring was unremarkable. MRA of the abdomen did not show renal artery stenosis. We will add on Lisinopril as a discharge medication. Continue outpatient workup and monitoring. Pt should have a BMP in one week to check her renal function on lisinopril. On discharge we are continuing her metoprolol 100mg BID + hydralazine 25mg BID. We did a neurology consultation for a central cause of symptoms including HTN - our neurologist does not think there is a central cause of her HTN and symptoms. Extensive workup to date negative includes 1. MRI brain 2. stress echo (although didn't hit predicted target HR) 3. CT abd/pelvis 4. EGD 5. MRA of the renal arteries 6. renin/sharon levels 7. 24-hour urine for pheochromocytoma 8. 24-hour urine for porphyria 9. TSH, cortisol, etc Total Time Spent: Greater than 30 minutes This includes examination of the patient, discharge planning, medication reconciliation, and communication with other providers. (Walt Malcolm M.D.) Resident Physician Supervision Note: I interviewed and examined the patient. Discussed with Dr. Malcolm and agree with findings and plan as documented in the note. Any exceptions or clarifications are listed here: None Documented By: Souleymane Lobato feeling better wants to go home no new complaints waiting on finishing current 24hr urine, explained rationale and risks/benefits of ACEi - pt expressed understanding and agreement ROS otherwise negative except for as above vitals noted nad breathing unlabored no pallor or icterus not flushed episodic HTN - stable for home -- agree adding lisinopril, BMP within a week, f/ u on 24hr urine, continue to follow closely otherwise as above Total Time Spent: Less than 30 minutes (Souleymane Lobato, D.O.) Discharge Instructions Please refer to the electronic Patient Visit Report (Discharge Instructions) for additional information. (Walt Malcolm M.D.) Additional Copies To Yashira Arizmendi C.R.N.P. Resident Involvement: Resident Care Provided Care Provided: Adult Hospital Medicine (Walt Malcolm M.D.)
[2017-01-13 16:31] VITALS: BP 124/83; PULSE 68; TEMP 36.9; O2SAT 95
[2017-01-13] MEDS ORDERED: LISINOPRIL 20 MG TAB PO STA (16:34)
[2017-01-16 12:33] LABS: 5-HIAA 3.3 mg/24 h (<=6.0)
[2017-04-26] MEDS ORDERED: [UNRECOGNIZED DRUG - CODE] OTB (07:48)
[2017-04-26] MEDS ORDERED: CLON0.1T12 PO (07:48)
[2017-05-08] MEDS ORDERED: CZR50 PO (13:17)
[2017-06-27] MEDS ORDERED: SERT50TA PO (15:54)
== END 2017-01-13 17:05 | disposition home or self-care (01) ==
LOC: C.EDB 13:47 → C.2T 16:50 → ENRESERV 17:01
PROVIDERS: ADMIT Hospitalist; ATTEND Family Medicine
DX: I16.0 Hypertensive urgency (principal); R11.2 Nausea with vomiting, unspecified; G35 Multiple sclerosis; F17.200 Nicotine dependence, unspecified, uncomplicated; Z88.1 Allergy status to other antibiotic agents; Z91.018 Allergy to other foods; Z79.82 Long term (current) use of aspirin; Z91.040 Latex allergy status; Z79.899 Other long term (current) drug therapy; I25.10 Atherosclerotic heart disease of native coronary artery without angina pectoris; Z80.9 Family history of malignant neoplasm, unspecified; Z83.3 Family history of diabetes mellitus; Z82.49 Family history of ischemic heart disease and other diseases of the circulatory system; Z83.6 Family history of other diseases of the respiratory system

== ENCOUNTER 2017-01-14 16:32 | Observation (INO) | payer OTHER ==
[~2017-01-14] VITALS: Ht 165.1 cm; Wt 60.6 kg
[~2017-01-14 16:32] MED LIST changes: +LISI-725 PO
[2017-01-14] MEDS ORDERED: ONDANSETRON INJ 2 MG/ML 2 ML VIAL IV STA (16:42)
[2017-01-14] MEDS ORDERED: LABETALOL HCL IV 5 MG/ML 20ML IV STA (16:42)
[2017-01-14 16:50] LABS: HEMATOCRIT 42.7 % (37-47); MEAN CORPUSCULAR HEMOGLOBIN 32.5 pg (25-34); MEAN CORPUSCULAR HGB CONC 34.9 g/dl (32-36); MEAN PLATELET VOLUME 9.9 fL (7.4-10.4); PLATELET COUNT 387 K/uL (130-400); RED BLOOD COUNT 4.59 M/uL (4.2-5.4); WHITE BLOOD COUNT 11.65 K/uL (4.8-10.8)
--- NOTE | 2017-01-14 17:03 | EMERGENCY ROOM VISIT NOTE ---
History Report prepared by Andres: Kailey Ibrahim Under the Supervision of: Dr. Armin Tariq M.D. First contact with patient: 16:34 Chief Complaint: CHEST PAIN Stated Complaint: CHEST PAIN History of Present Illness The patient is a 51 year old female who presents to the Emergency Room with complaints of persistent hypertension that began today prior to arrival. Per records the patient was evaluated in the hospital December 23 for hypertension and again January 11 for her hypertension. The patient states that she has been evaluated in the hospital 5 times within the last six weeks. She states that around 1500 she started feeling ill. The patient associates central chest pain that radiated into her back and shortness of breath. She states that she checked her blood pressure and found to have a pressure of 220/122 mmHg. The patient states that she then called the paramedics for further assistance. She states that she developed nausea and has vomited several times since she first started feeling ill. The patient states that she was feeling fine earlier today. She reports that her blood pressure earlier today was 138/89 mmHg. Today, the patient additionally notes that her mouth feels dry. She describes her chest pain today as a tightness and rated it as a 4/10 in severity. The patient reports a history of a previous IL several years ago. She states that the aspirin she was given en-route to the emergency department alleviated her chest pain. She denies any recent added stress. The patient states that her last stress test was at the end of November, and reports normal findings. The patient states that she has been taking her blood pressure medications normally , denying missing any doses. She states that upon discharge yesterday from the hospital, Lisinopril was added to her medication list. Source of History: patient Onset: prior to arrival Position: other (global) Symptom Intensity: 220/122 mmHg Quality: other (hypertension) Timing: other (persistent) Associated Symptoms: + chest pain, + SOB, + nausea, + vomiting, + back pain Note: Associated Symptoms: mouth feels dry Review of Systems See HPI for pertinent positives & negatives. A total of 10 systems reviewed and were otherwise negative. Past Medical & Surgical Medical Problems: (1) Atherosclerosis Nos (2) Chronic hypertension (3) Elevated troponin I level (4) Hypertension Nos (5) HYPERTENSIVE URGENCY (6) Hypertensive urgency, malignant (7) Hypokalemia (8) Intractable nausea and vomiting (9) Malignant essential hypertension (10) Multiple Sclerosis (11) Nausea & vomiting (12) Prolonged QT interval (13) Renal artery stenosis (14) Uncontrolled hypertension Family History Cancer Diabetes mellitus Heart disease Hypertension Lung disease Social History Smoking Status: Light Tobacco Smoker Alcohol Use: occasionally Drug Use: marijuana Marital Status: Housing Status: lives with family Occupation Status: employed Current/Historical Medications Scheduled Aspirin (Aspirin Chewable), 81 MG PO DAILY Atorvastatin (Lipitor), 20 MG PO HS Hydralazine HCl (Hydralazine HCl), 25 MG PO BID Lisinopril (Zestril), 20 MG PO DAILY Metoprolol Tartrate (Metoprolol Tartrate), 100 MG PO BID Multivitamin (Multivitamin), 1 TAB PO DAILY Allergies Coded Allergies: Doxycycline (Verified Allergy, Unknown, rash, 01/11/17) Iodinated Diagnostic Agents (Verified Allergy, Unknown, `, 01/11/17) Latex1 -Allergic Contact Dermititis (Verified Allergy, Unknown, RASH, 01/11) Meperidine (Verified Allergy, Unknown, HIVES, VOMITING, 01/11/17) Prochlorperazine (Verified Allergy, Unknown, ., 01/11/17) [place] (Verified Allergy, Unknown, HIVES, 01/11/17) Tomato (Verified Allergy, Unknown, HIVES, 01/11/17) Uncoded Allergies: Hernandez Beans (Allergy, Unknown, HIVES, 11/27/16) Physical Exam Vital Signs Date Time Temp Pulse Resp B/P (MAP) Pulse Ox O2 Delivery O2 Flow Rate FiO2 01/14/17 17:31 85 18 217/165 95 Room Air 01/14/17 17:25 82 16 214/147 97 Room Air 01/14/17 17:16 79 16 220/141 96 Room Air 01/14/17 17:08 72 18 194/142 97 Room Air 01/14/17 16:49 98 Room Air 01/14/17 16:49 36.9 93 16 194/132 98 Room Air 01/14/17 16:42 77 01/14/17 16:40 88 17 194/132 98 Room Air Physical Exam GENERAL: Patient is in no acute distress. Anxious HEENT: No acute trauma, normocephalic atraumatic, mucous membranes moist, no nasal congestion, no scleral icterus. NECK: No stridor, no adenopathy, no meningismus, trachea is midline. LUNGS: Clear to auscultation bilaterally, no wheeze, no rhonchi, breath sounds equal. HEART: Without murmurs gallops or rubs, regular rate and rhythm. ABDOMEN: Soft, nontender, bowel sounds positive, no hernias, no peritonitis. EXTREMITIES: No cyanosis or edema, full range of motion of all the joints without pain or difficulty, no signs for acute trauma. NEUROLOGIC: Oriented x 3, no acute motor or sensory deficits, no focal weakness. SKIN: No rash, no jaundice, no diaphoresis. Medical Decision & Procedures ER Provider Diagnostic Interpretation: X-ray results as stated below per interpretation by me and the radiologist: CHEST ONE VIEW PORTABLE CLINICAL HISTORY: Difficult chest pain COMPARISON STUDY: 12/20/2016 FINDINGS: The cardiac and mediastinal contours are normal. There is no evidence of focal pulmonary consolidation. There is no evidence of failure. No pleural effusions are visualized.[ There is an old right-sided rib fracture. Haziness of the right lung base is felt to be secondary to technical factors. IMPRESSION: No active disease in the chest. Electronically signed by: Michael Stewart M.D. 01/14/2017 5:55 PM Dictated Date/Time: 01/14/2017 5:55 PM Laboratory Results 01/14/17 16:20 01/14/17 16:20 Test 01/14/17 16:20 01/14/17 17:06 Red Blood Count 4.59 M/uL (4.2-5.4) Mean Corpuscular Volume 93.0 fL (80-100) Mean Corpuscular Hemoglobin 32.5 pg (25-34) Mean Corpuscular Hemoglobin Concent 34.9 g/dl (32-36) RDW Standard Deviation 42.9 fL (36.4-46.3) RDW Coefficient of Variation 12.6 % (11.5-14.5) Mean Platelet Volume 9.9 fL (7.4-10.4) Anion Gap 11.0 mmol/L (3-11) Est Creatinine Clear Calc Drug Dose 73.9 ml/min Estimated GFR () 96.7 Estimated GFR (Non- 83.4 BUN/Creatinine Ratio 20.3 (10-20) Calcium Level 10.4 mg/dl (8.5-10.1) Total Bilirubin 0.4 mg/dl (0.2-1) Aspartate Amino Transf (AST/SGOT) 13 U/L (15-37) Alanine Aminotransferase (ALT/SGPT) 27 U/L (12-78) Alkaline Phosphatase 68 U/L (45-117) Total Protein 8.4 gm/dl (6.4-8.2) Albumin 4.4 gm/dl (3.4-5.0) Globulin 4.0 gm/dl (2.5-4.0) Albumin/Globulin Ratio 1.1 (0.9-2) Lipase 123 U/L (73-393) Bedside Troponin I < 0.030 ng/ml (0-0.045) Laboratory results reviewed by me. Medications Administered Medications (Trade) Dose Ordered Sig/Yeimy Route Start Time Stop Time Status Last Admin Dose Admin Labetalol HCl (Normodyne IV) 20 mg NOW STAT IV 01/14/17 16:42 01/14/17 16:45 DC 01/14/17 17:06 5 MG Ondansetron HCl (Zofran Inj) 4 mg NOW STAT IV 01/14/17 16:42 01/14/17 16:45 DC 01/14/17 17:04 4 MG Hydralazine HCl (HydrALAZINE INJ) 10 mg NOW STAT IV 01/14/17 17:25 01/14/17 17:26 DC 01/14/17 17:29 10 MG Nitroglycerin (Nitroglycerin 2% Oint) 2 inch NOW STAT EXT 01/14/17 17:30 01/14/17 17:31 DC 01/14/17 17:37 2 INCH Lorazepam (Ativan Inj) 1 mg NOW STAT IV 01/14/17 17:30 01/14/17 17:32 DC 01/14/17 17:36 1 MG ECG Indication: chest pain Rate (beats per minute): 79 Rhythm: normal sinus Findings: no acute ischemic change, no ectopy ED Course 1636: The patient was evaluated in room B9. A complete history and physical exam was performed. 1641: Ordered Zofran Inj 4 mg IV, Labetalol HCl 20 mg IV. 7: I discussed the patients case with MIKHAIL Navas. He is not 100% sure what to add to her medications, but states that if her blood pressure cannot be controlled, she should be evaluated in the hospital for further treatment. 1725: Ordered Hydralazine HCl 10 mg IV. 1730: Ordered Ativan Inj 1 mg IV, Nitroglycerin 2 inch EXT. 1757: I rediscussed the patients case with MIKHALI Navas. He is going to evaluate the patient for further treatment. 1808: I reevaluated the patient and she is resting comfortably, but her pressure is still elevated. She has no complaints at this time. I discussed the exam findings with her and I discussed the treatment plan. She verbalized complete understanding and agreement. She is going to be evaluated for further treatment. Medical Decision The patient is a 51 year old female who presents to the ED with complaints of hypertension. Differential diagnoses considered include hypertensive emergency , cardiac ischemia, anxiety, IL, aortic dissection, PE, missed medication. There is a mild leukocytosis which could be consistent with infection or just the stress of her presentation. No anemia. No significant electrolyte abnormality, kidney failure or hepatitis. There is no pancreatitis. EKG shows a sinus rhythm, no acute ischemia. Cardiac enzyme testing times one is not consistent with acute cardiac injury. Chest x-ray does not show mediastinal widening, pneumonia or pneumothorax. Patient's blood pressure was quite high. She received IV labetalol, IV hydralazine, IV Zofran, IV Ativan and nitroglycerin paste. Her pressure is still elevated although she has no complaints at the present. With the persistently high blood pressure, with the complaints of chest pain, I did not feel comfortable with discharge home. I did speak to the on-call hospitalist, I talked with case management. I spoke with the patient. Admission/observation is warranted. Blood Pressure Screening: Patient was found to have an elevated blood pressure and was referred to their primary doctor for recheck and further treatment. Medication Reconciliation: I attest that I have personally reviewed the patient' s current medication list. Consults Time Called: 164 Consulting Physician: MIKHAIL Navas Returned Call: 165 I discussed the patients case with MIKHAIL Navas. He is not 100% sure what to add to her medications, but states that if her blood pressure cannot be controlled, she should be evaluated in the hospital for further treatment. Additional Consults: Time Called: 175 Consulted Physician: MIKHAIL Navas Returned Call: [phone] Additional Comments: I rediscussed the patients case with MIKHAIL Navas. He is going to evaluate the patient for further treatment. Impression Primary Impression: Precordial chest pain Additional Impression: Hypertensive emergency Scribe Attestation The scribe's documentation has been prepared under my direction and personally reviewed by me in its entirety. I confirm that the note above accurately reflects all work, treatment, procedures, and medical decision making performed by me. Departure Information Dispostion Being Evaluated By Hospitalist Referrals Yashira Arizmendi C.R.N.P. (PCP) Problem Qualifiers
[2017-01-14 17:06] LABS: BUN/CREATININE RATIO 20.3 (10-20); CALCIUM 10.4 mg/dl (8.5-10.1); CREATININE 0.82 mg/dl (0.60-1.20); POTASSIUM 3.5 mmol/L (3.5-5.1)
[2017-01-14 17:09] LABS: ALB/GLOB RATIO 1.1 (0.9-2)
[2017-01-14] MEDS ORDERED: HydrALAZINE HCL 20 MG/ML VIAL IV STA (17:25)
[2017-01-14] MEDS ORDERED: NITROGLYCERIN OINT 2% 1GM PACKET EXT STA (17:30)
[2017-01-14] MEDS ORDERED: LORAZEPAM 2 MG/ML 1 ML VIAL IV STA (17:30)
--- NOTE | 2017-01-14 17:57 | DIAGNOSTIC IMAGING REPORT ---
CHEST ONE VIEW PORTABLE CLINICAL HISTORY: Difficult chest pain COMPARISON STUDY: 12/20/2016 FINDINGS: The cardiac and mediastinal contours are normal. There is no evidence of focal pulmonary consolidation. There is no evidence of failure. No pleural effusions are visualized.[ There is an old right-sided rib fracture. Haziness of the right lung base is felt to be secondary to technical factors. IMPRESSION: No active disease in the chest. Electronically signed by: Michael Stewart M.D. 01/14/2017 5:55 PM Dictated Date/Time: 01/14/2017 5:55 PM
[2017-01-14] MEDS ORDERED: ALUMINUM/MAGNESIUM/SIMETH (MAALOX MAX) 30 ML UDC PO PRN (18:15)
[2017-01-14] MEDS ORDERED: MAGNESIUM HYDROXIDE SUSP 30 ML UDC PO PRN (18:15)
[2017-01-14] MEDS ORDERED: POLYETHYLENE (MIRALAX) 17 GM PACK PO PRN (18:15)
[2017-01-14] MEDS ORDERED: ZOLPIDEM TARTRATE 5 MG TAB PO PRN ×2 (18:15)
--- NOTE | 2017-01-14 19:33 | History and Physical ---
History & Physical Date & Time of Service: Jan 14, 2017 at 19:28 Chief Complaint: Chest Pain Primary Care Physician: Yashira Arizmendi C.R.N.P. Past Medical/Surgical History Medical Problems: (1) Atherosclerosis Nos Status: Chronic (2) Hypertension Nos Status: Chronic (3) Multiple Sclerosis Status: Chronic Family History Cancer Diabetes mellitus Heart disease Hypertension Lung disease Social History Smoking Status: Light Tobacco Smoker Drug Use: marijuana Marital Status: Housing status: lives with family Occupational Status: employed Immunizations History of Influenza Vaccine: Unknown History of Tetanus Vaccine?: Unknown History of Pneumococcal: Unknown History of Hepatitis B Vaccine: Unknown Multi-Drug Resistant Organisms History of MDRO: No Allergies Coded Allergies: Doxycycline (Verified Allergy, Unknown, rash, 01/11/17) Iodinated Diagnostic Agents (Verified Allergy, Unknown, `, 01/11/17) Latex1 -Allergic Contact Dermititis (Verified Allergy, Unknown, RASH, 01/11) Meperidine (Verified Allergy, Unknown, HIVES, VOMITING, 01/11/17) Prochlorperazine (Verified Allergy, Unknown, ., 01/11/17) [place] (Verified Allergy, Unknown, HIVES, 01/11/17) Tomato (Verified Allergy, Unknown, HIVES, 01/11/17) Uncoded Allergies: Hernandez Beans (Allergy, Unknown, HIVES, 11/27/16) Home Medications Scheduled Aspirin (Aspirin Chewable), 81 MG PO DAILY Atorvastatin (Lipitor), 20 MG PO HS Hydralazine HCl (Hydralazine HCl), 25 MG PO BID Lisinopril (Zestril), 20 MG PO DAILY Metoprolol Tartrate (Metoprolol Tartrate), 100 MG PO BID Multivitamin (Multivitamin), 1 TAB PO DAILY Physical Exam Vital Signs Date Time Temp Pulse Resp B/P (MAP) Pulse Ox O2 Delivery O2 Flow Rate FiO2 01/14/17 18:46 94 17 207/127 97 Room Air 01/14/17 18:31 88 20 200/124 96 Room Air 01/14/17 18:01 88 20 215/128 98 Room Air 01/14/17 17:46 83 18 203/109 96 Room Air 01/14/17 17:31 85 18 217/165 95 Room Air 01/14/17 17:25 82 16 214/147 97 Room Air 01/14/17 17:16 79 16 220/141 96 Room Air 01/14/17 17:08 72 18 194/142 97 Room Air 01/14/17 16:49 98 Room Air 01/14/17 16:49 36.9 93 16 194/132 98 Room Air 01/14/17 16:42 77 01/14/17 16:40 88 17 194/132 98 Room Air Diagnostics Laboratory Results Results Past 24 Hours Test 01/14/17 16:20 01/14/17 17:06 01/14/17 18:49 Range/Units White Blood Count 11.65 4.8-10.8 K/uL Red Blood Count 4.59 4.2-5.4 M/uL Hemoglobin 14.9 12.0-16.0 g/dL Hematocrit 42.7 37-47 % Mean Corpuscular Volume 93.0 80-100 fL Mean Corpuscular Hemoglobin 32.5 25-34 pg Mean Corpuscular Hemoglobin Concent 34.9 32-36 g/dl RDW Standard Deviation 42.9 36.4-46.3 fL RDW Coefficient of Variation 12.6 11.5-14.5 % Platelet Count 387 130-400 K/uL Mean Platelet Volume 9.9 7.4-10.4 fL Sodium Level 139 136-145 mmol/L Potassium Level 3.5 3.5-5.1 mmol/L Chloride Level 103 98-107 mmol/L Carbon Dioxide Level 25 21-32 mmol/L Anion Gap 11.0 3-11 mmol/L Blood Urea Nitrogen 17 7-18 mg/dl Creatinine 0.82 0.60-1.20 mg/dl Est Creatinine Clear Calc Drug Dose 73.9 ml/min Estimated GFR () 96.7 Estimated GFR (Non- 83.4 BUN/Creatinine Ratio 20.3 10-20 Random Glucose 117 70-99 mg/dl Calcium Level 10.4 8.5-10.1 mg/dl Total Bilirubin 0.4 0.2-1 mg/dl Aspartate Amino Transf (AST/SGOT) 13 15-37 U/L Alanine Aminotransferase (ALT/SGPT) 27 12-78 U/L Alkaline Phosphatase 68 45-117 U/L Total Protein 8.4 6.4-8.2 gm/dl Albumin 4.4 3.4-5.0 gm/dl Globulin 4.0 2.5-4.0 gm/dl Albumin/Globulin Ratio 1.1 0.9-2 Lipase 123 73-393 U/L Bedside Troponin I < 0.030 0-0.045 ng/ml Impression Assessment and Plan obs #[id number] VTE Prophylaxis VTE Risk Assessment Done? Y/N: Yes Risk Level: Moderate
--- NOTE | 2017-01-14 20:09 | HISTORY & PHYSICAL EXAMINATION ---
DATE OF ADMISSION: 01/14/2017 CHIEF COMPLAINT: Elevated blood pressure, nausea and just generally feeling ill. HISTORY OF PRESENT ILLNESS: She was actually seen under our service and discharged yesterday feeling good. She had had episodic hypertension that had been worked up very extensively. She finished a 24-hour urine collection for serotonin around 4:30 in the afternoon, she was feeling good. Her blood pressure was around 120/80 and she was ready to go home. We sent her home on new antihypertensives and close followup. Unfortunately, very abruptly while sitting at home alone without any clear stress or anything like that, she started to feel ill around 3:00, had some central chest pain radiating to her back, short of breath, checked her blood pressure, found it was 220/122, called EMS, had nausea, some vomiting and now still feels very wiped out and nauseated. Her chest pain is gone, probably with the aspirin en route. Otherwise, she has no clear-cut background history on this and was feeling good, right up until the episode started. PAST MEDICAL HISTORY: Includes hypertension that appears to be episodic. She also had a question of MS that she and her doubt. FAMILY HISTORY: Includes coronary artery disease and stroke in her dad; asthma, COPD in mom. She also has a sibling with coronary artery disease and stroke. SOCIAL HISTORY: She is and lives with her . There was a history of tobacco use, rare alcohol, occasional marijuana. ALLERGIES: TO OXYIODINE, LATEX, MEPERIDINE, PROCHLORPERAZINE, STRAWBERRY, TOMATO AND DAWN BEANS. PAST SURGICAL HISTORY: None of note. MEDICATIONS: Aspirin 81 mg daily, Lipitor 20 at bedtime, hydralazine 25 b.i.d., Zestril 20 mg daily, metoprolol tartrate 100 mg b.i.d., multivitamin daily. PHYSICAL EXAMINATION: VITAL SIGNS: Initial vitals showed a temp of 36.9, pulse 88, respiratory rate 17, blood pressure 194/132, 98% on room air. GENERAL: She is awake, alert, oriented, fatigued appearing and appears nauseated, a little bit diaphoretic. No respiratory distress, no pain distress. HEENT: Normocephalic, atraumatic. Mucous membranes are moist. CARDIOVASCULAR: Regular without rubs, murmurs, or gallops. LUNGS: Clear to auscultation bilaterally. No rales, rhonchi, or wheezes. Good effort. ABDOMEN: Soft, nondistended, nontender, no masses or organomegaly. EXTREMITIES: Without cyanosis, clubbing or edema. No calf tenderness. SKIN: Shows no rashes, no petechia, no pallor, no icterus. NEUROLOGIC: Shows cranial nerves II-XII to be grossly intact. Gross motor and sensory are intact. SKIN: Shows no rashes pallor or icterus. MUSCULOSKELETAL: Yields no gross lesions. MENTAL STATUS: Shows good recent and remote recall. LABS AND DIAGNOSTICS: CBC shows a white count of 11.65, hemoglobin 14.9, platelets 387. Complete metabolic panel with sodium 139, potassium 3.5, chloride 103, CO2 25, BUN 17, creatinine 0.82, calcium 10.4, glucose 117, AST 13, ALT 27, alk phos 68, total bilirubin 0.4, troponin of less than 0.03, total protein 8.4, albumin 4.4, lipase 123. IMAGING DATA: Chest x-ray shows no active disease. EKG sinus with sinus arrhythmia, no ischemic changes of note. ASSESSMENT AND PLAN: 1. Recurrent episodic, markedly severe hypertension, question hypertensive emergency. Her symptoms are not necessarily typical for hypertensive emergency, but her blood pressures were markedly elevated. The main question would are these symptoms causing the elevation in blood pressure due to distress, where the elevated blood pressure causing symptoms given risk of bad outcomes and concern for wellbeing. Obviously, we need to look at it first as though the blood pressure is causing the symptoms rather than the other way around, but be vigilant for other differentials of symptoms that could blood pressure, she had a very extensive workup. Of note, however, most recently, she had a recent MRA of her kidneys that looked normal; however, looking back prior to that a few months ago, she actually had a renal ultrasound that showed a degree of possible renal artery stenosis which may be the culprit. I am going to ask cardiology to relook at the MRI as there was question of artifact if in doubt, we can either repeat the test, get a CT angio or ask for vascular surgery eval also because of the extensive workup as outlined all in [employer], labs and imaging that appears to be generally negative. We will repeat a renin and aldosterone level now. Given that she is clearly episodic, we will ask nephrology to see her and continue to follow her closely. As far as medications go, we will continue her hydralazine, lisinopril and metoprolol. Blood pressures are improving so for now we will simply put in additional p.r.n. hydralazine IV and then likely add calcium channel blaine and/or increase her lisinopril for ongoing management. 2. Hyperlipidemia. Continue her Lipitor. 3. Deep venous thrombosis prophylaxis, Lovenox. GERARD
[2017-01-14] MEDS: ONDANSETRON INJ 2 MG/ML 2 ML VIAL IV PRN (20:12)
[2017-01-14 20:28] VITALS: BP 173/106; PULSE 96; TEMP 37.1; Ht 165.1 cm; Wt 60.6 kg
[2017-01-14 20:31] VITALS: O2SAT 96
[2017-01-14] MEDS ORDERED: IV FLUIDS COMPLETED PRN (21:00)
[2017-01-14] MEDS: HydrALAZINE HCL 20 MG/ML VIAL IV. PRN (21:08)
[2017-01-14 21:09] VITALS: BP 196/104; PULSE 97
[2017-01-14] MEDS ORDERED: NURSING VERBAL MED ORDER STA (21:26)
[2017-01-14] MEDS ORDERED: PROMETHAZINE HCL INJ 12.5 MG in SODIUM CHLORIDE 0.9% 50ML 50 ML IV STA (21:30)
[2017-01-14] MEDS: ATORVASTATIN 20 MG TAB PO SCH (22:25)
[2017-01-14 22:26] VITALS: BP 163/96; PULSE 108
[2017-01-14] MEDS: METOPROLOL TARTRATE 100 MG TAB PO SCH (22:26)
[2017-01-14 23:21] VITALS: BP 152/81; PULSE 103; TEMP 37.5; O2SAT 95
[2017-01-15] VITALS (8 sets, daily range): BP systolic 94–165; BP diastolic 57–85; PULSE 63–86; TEMP 36.9–37.5; O2SAT 93–97
[2017-01-15] MEDS: ACETAMINOPHEN 325 MG TAB PO PRN ×2 (00:30→13:49)
[2017-01-15] MEDS: ONDANSETRON INJ 2 MG/ML 2 ML VIAL IV PRN (04:26)
--- NOTE | 2017-01-15 07:13 | Family Medicine Progress Note ---
Progress Note Date of Service Jan 15, 2017. Subjective Pt evaluation today including: conversation w/ patient, physical exam, chart review, lab review Pt received 12.5mg of Promethazine overnight for HBP. Pt examined this morning and has low BP without any symptoms. ROS: No headache, no blurry vision, no diaphoresis, no chest pain, no SOB. Objective Physical Exam General Appearance: WD/WN, no apparent distress Respiratory/Chest: chest non-tender, lungs clear, normal breath sounds, no respiratory distress, no accessory muscle use Cardiovascular: regular rate, rhythm, no edema, no gallop, no JVD, no murmur Abdomen: normal bowel sounds, non tender, soft Extremities: normal range of motion, non-tender, normal inspection, no pedal edema, no calf tenderness 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: no motor/sensory deficits, normal mood/affect, oriented x 3 Assessment and Plan 51F with 4 recent hospitalizations for hypertensive urgency p/w a reoccurance of her symptoms 1 day prior to discharge. MRA at last visit showed no CATRACHITA, however there was a renal US that showed unilateral CATRACHITA, previous Aldosterone: Renin ratio was normal, will repeat. Hypertensive Emergency - MRA reviewed with radiology, very unlikely to have CATRACHITA. Pt is currently hypotensive. - Nephro recs appreciated: -- DC nitropaste -- Restart metoprolol once SBP > 130 mmHg -- Restart lisinopril as needed -- Encourage low sodium diet - Wondering if pt's marijuana use is a trigger - will review with patient. - Aldosterone and Renin Pending, follow up previous visit 24hr [id number]. HLD - continue lipitor DVT - Lovenox daily SQ Full Code Resident Physician Supervision Note: I interviewed and examined the patient. Discussed with Dr. Malcolm and agree with findings and plan as documented in the note. Any exceptions or clarifications are listed here: None Documented By: Souleymane Lobato feeling better now. no new complaints. d/w radiology - reviewed MRA from last week and renal US from november. appears that "stenosis" on renal US less likely - doppler slightly off angle raising velocity possibly spuriously, downstream flow waveforms far more brisk than would be expected with upstream stenosis, and MRA, while degraded by motion, does appear quite readable and quite normal. IV dye allergy hives ROS otherwise negative except for as above vitals noted nad breathing unlabored no pallor or icterus no diaphoresis episodic HTN - better now, but random, frequent episodes with severe distress. will research other obscure causes; await urine serotonin sent 01/13, await further input from nephrology. continue close observation. Resident Involvement: Resident Care Provided Care Provided: Adult Hospital Medicine
[2017-01-15] MEDS: ASPIRIN 81 MG ECTAB PO SCH (08:00)
[2017-01-15] MEDS: MULTIVITAMIN TAB PO SCH (08:00)
[2017-01-15] MEDS: ENOXAPARIN 40 MG/0.4 ML SYR SQ SCH (08:01)
[2017-01-15] MEDS: LISINOPRIL 20 MG TAB PO SCH (09:00)
[2017-01-15] MEDS: METOPROLOL TARTRATE 100 MG TAB PO SCH ×2 (09:00→23:18)
--- NOTE | 2017-01-15 12:55 | Nephrology Consultation ---
Nephrology Consultation Date & Providers Date of Consultation: Jan 15, 2017. Primary Care Provider: Yashira Arizmendi C.R.N.P. Referring Provider: Reason for Consultation Hypertension History of Present Illness Cyndie Velasquez is a 51-year-old female who was seen and evaluated in her hospital room this morning. Nephrology consultation was requested to assist with the management of uncontrolled hypertension. Cyndie has a complicated history of recurrent accelerated hypertension. She has multiple hospitalizations with hypertensive urgency/emergency. She was hospitalized from November 21 to . In December, she was hospitalized from the to as well as from the to . she was hospitalized from January 11 through . During her hospitalizations blood pressure has been appropriately controlled on her home oral regimen which now includes metoprolol, hydralazine and lisinopril. After discharge on January 13 2 was readmitted within 24 hours. Patient stated that she took her medications as prescribed at home in the morning. The afternoon she developed flushing and nausea. This was associated with increasing shortness of breath. Symptoms prompted her to check her blood pressure which was predictably elevated consistent with prior episodes of accelerated hypertension. Patient presented to the emergency department and subsequently admitted. In the emergency department she presented with accelerated blood pressure readings. She was given hydralazine 25 mg PO and metoprolol tartrate 100 mg PO. An additional 10 milligrams IV hydralazine was administered. 1 inch of nitro paste was paid to the patient's chest. Blood pressure started to improve. Symptoms had resolved by the time the patient presented. This morning patient was feeling very well. Blood pressure was notably low. At this time I assessed the nitropaste be removed. Antihypertensive medications were held. Cyndie cannot recall having any recent low blood pressure reading similar to the ones she was experiencing this morning. She was asymptomatic in terms of her hypotension. The patient has undergone an extensive evaluation previously regarding her blood pressure. Evaluation for secondary causes included serum renin and aldosterone levels, Plasma metanephrines, 224 hour urine collections for urinary metanephrines. There were no abnormal findings any this assessments. In December the patient had a renal artery duplex that was suggestive of possibly right-sided renal artery stenosis. Vascular surgery was consulted and the study was reviewed. I reviewed and discussed the study with Radiology today. On review of assessment are is no evidence of renal artery stenosis. Additionally an MRA of the abdomen was obtained during her recent hospitalization. There was also no evidence of renal artery stenosis on this study. Records from Cardiology were reviewed. It is noted that Dr. Martin previously thought that the patient had some synthetic accelerated blood pressure readings. In November stress echocardiogram documented normal LV size and systolic function with mild concentric LVH, no evidence of ischemia. Was suboptimal stress test patient having only obtained 80 percent maximum predicted heart rate or 6.6 Mets. There was a hypertensive response to exercise. Note that in December the patient underwent an EGD for pill impaction. Medical history is notable for coronary artery disease with 30 percent mid RCA and 30 percent proximal LAD noted on a cardiac catheterization obtained in 2013. Patient has undergone evaluation for potential demyelinating disorder. Overall the workup was not consistent with multiple sclerosis per review of neurology notes. She has not had any persistent symptoms. She has diverticulosis without diverticulitis. She has a history of dyslipidemia. There is also history of gastritis. Past Medical/Surgical History Medical: -- Hypertension -- Coronary artery disease -- Anxiety disorder -- prior evaluation for potential multiple sclerosis -- diverticulosis -- history of gastritis -- dyslipidemia Surgical: Hernia repair and hysterectomy Allergies Coded Allergies: Doxycycline (Verified Allergy, Unknown, rash, 01/11/17) Iodinated Diagnostic Agents (Verified Allergy, Unknown, `, 01/11/17) Latex1 -Allergic Contact Dermititis (Verified Allergy, Unknown, RASH, 01/11) Meperidine (Verified Allergy, Unknown, HIVES, VOMITING, 01/11/17) Prochlorperazine (Verified Allergy, Unknown, ., 01/11/17) [place] (Verified Allergy, Unknown, HIVES, 01/11/17) Tomato (Verified Allergy, Unknown, HIVES, 01/11/17) Uncoded Allergies: Hernandez Beans (Allergy, Unknown, HIVES, 11/27/16) Inpatient Medications Current Inpatient Medications Medications (Trade) Dose Ordered Sig/Yeimy Route Start Time Stop Time Status Last Admin Dose Admin Acetaminophen (Tylenol Tab) 650 mg Q4H PRN PO 01/14/17 18:15 02/13/17 18:14 01/15/17 00:30 650 MG Al Hydrox/Mg Hydrox/Simethicone (Maalox Max Susp) 15 ml Q4H PRN PO 01/14/17 18:15 02/13/17 18:14 Magnesium Hydroxide (Milk Of Magnesia Susp) 30 ml Q12H PRN PO 01/14/17 18:15 02/13/17 18:14 Zolpidem Tartrate (Ambien Tab) 5 mg HSZ PRN PO 01/14/17 18:15 02/13/17 18:14 Ondansetron HCl (Zofran Inj) 4 mg Q6H PRN IV 01/14/17 18:15 02/13/17 18:14 01/15/17 04:26 4 MG Polyethylene (Miralax Powder Packet) 17 gm DAILY PRN PO 01/14/17 18:15 02/13/17 18:14 Aspirin (Ecotrin Tab) 81 mg DAILY PO 01/15/17 09:00 02/14/17 08:59 01/15/17 08:00 81 MG Atorvastatin Calcium (Lipitor Tab) 20 mg HS PO 01/14/17 21:00 02/13/17 20:59 01/14/17 22:25 20 MG Hydralazine HCl (Apresoline Tab) 25 mg BID PO 01/14/17 21:00 02/13/17 20:59 01/14/17 22:25 25 MG Lisinopril (Zestril Tab) 20 mg DAILY PO 01/15/17 09:00 02/14/17 08:59 Metoprolol Tartrate (Lopressor Tab) 100 mg BID PO 01/14/17 21:00 02/13/17 20:59 01/14/17 22:26 100 MG Multivitamins (Multivitamin Tab) 1 tab DAILY PO 01/15/17 09:00 02/14/17 08:59 01/15/17 08:00 1 TAB Enoxaparin Sodium (Lovenox Inj) 40 mg QAM SQ 01/15/17 09:00 02/14/17 08:59 01/15/17 08:01 40 MG Hydralazine HCl (HydrALAZINE INJ) 10 mg Q4 PRN IV. 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 Two children. Her son lives at home with her grand child. She has adopted daughter who lives locally. Patient denies tobacco abuse. She does smoke marijuana. Review of Systems A complete review of systems was performed. Pertinent positives are noted above. All other systems are negative. Physical Exam Date Time Temp Pulse Resp B/P (MAP) Pulse Ox O2 Delivery O2 Flow Rate FiO2 01/15/17 12:00 Room Air 01/15/17 11:40 37.5 74 20 108/59 (75) 97 Room Air 01/15/17 08:09 37.2 80 20 96 Room Air 01/15/17 08:00 106/58 (74) 01/15/17 08:00 Room Air 01/15/17 04:05 37.1 86 16 165/85 (111) 97 Room Air 01/15/17 04:00 Room Air 01/15/17 00:00 Room Air 01/14/17 23:21 37.5 103 18 152/81 (104) 95 Room Air 01/14/17 22:26 108 163/96 (118) 01/14/17 21:09 97 196/104 (134) 01/14/17 20:31 96 Room Air 01/14/17 20:28 37.1 96 18 173/106 01/14/17 19:35 93 18 157/108 97 Room Air 01/14/17 18:46 94 17 207/127 97 Room Air 01/14/17 18:31 88 20 200/124 96 Room Air 01/14/17 18:01 88 20 215/128 98 Room Air 01/14/17 17:46 83 18 203/109 96 Room Air 01/14/17 17:31 85 18 217/165 95 Room Air 01/14/17 17:25 82 16 214/147 97 Room Air 01/14/17 17:16 79 16 220/141 96 Room Air 01/14/17 17:08 72 18 194/142 97 Room Air 01/14/17 16:49 98 Room Air 01/14/17 16:49 36.9 93 16 194/132 98 Room Air 01/14/17 16:42 77 01/14/17 16:40 88 17 194/132 98 Room Air General Appearance: no apparent distress, + thin Head: normocephalic, atraumatic Eyes: normal inspection, sclerae normal ENT: normal ENT inspection, pharynx normal Neck: supple, no JVD, no carotid bruits Respiratory/Chest: lungs clear, no respiratory distress, no accessory muscle use Cardiovascular: regular rate, rhythm, no gallop, no murmur Abdomen/GI: non tender, soft, no pulsatile mass Back: no CVA tenderness, no muscle spasm Extremities/Musculoskelatal: normal inspection, no pedal edema Neurologic/Psych: alert, normal mood/affect, oriented x 3 Skin: normal color, no rash Laboratory Results Last 24 Hours Test 01/14/17 16:20 01/14/17 17:06 01/14/17 19:29 White Blood Count 11.65 K/uL Red Blood Count 4.59 M/uL Hemoglobin 14.9 g/dL Hematocrit 42.7 % Mean Corpuscular Volume 93.0 fL Mean Corpuscular Hemoglobin 32.5 pg Mean Corpuscular Hemoglobin Concent 34.9 g/dl RDW Standard Deviation 42.9 fL RDW Coefficient of Variation 12.6 % Platelet Count 387 K/uL Mean Platelet Volume 9.9 fL Sodium Level 139 mmol/L Potassium Level 3.5 mmol/L Chloride Level 103 mmol/L Carbon Dioxide Level 25 mmol/L Anion Gap 11.0 mmol/L Blood Urea Nitrogen 17 mg/dl Creatinine 0.82 mg/dl Est Creatinine Clear Calc Drug Dose 73.9 ml/min Estimated GFR () 96.7 Estimated GFR (Non- 83.4 BUN/Creatinine Ratio 20.3 Random Glucose 117 mg/dl Calcium Level 10.4 mg/dl Total Bilirubin 0.4 mg/dl Aspartate Amino Transf (AST/SGOT) 13 U/L Alanine Aminotransferase (ALT/SGPT) 27 U/L Alkaline Phosphatase 68 U/L Total Protein 8.4 gm/dl Albumin 4.4 gm/dl Globulin 4.0 gm/dl Albumin/Globulin Ratio 1.1 Lipase 123 U/L Bedside Troponin I < 0.030 ng/ml Impression (1) Hypertensive urgency, malignant Cyndie Velasquez is a 51-year-old female with a history of recurrent accelerated blood pressure readings. Evaluation for secondary causes of hypertension was negative for aldosteronism, elevated metanephrines within the plasma or the urine, and there was no significant renal artery stenosis noted on imaging. An evaluation for serotonin syndrome was previously unremarkable per documentation. TSH was normal previously. Patient was hypotensive this morning. Blood pressure has been controlled during her recent hospitalizations on a regimen of metoprolol, hydralazine and lisinopril. It is unclear what the cause of her axilla blood pressure readings is but has been suggested that this may be sympathetic. At this time nitropaste has been discontinued. Oral antihypertensive medications have been held. We are monitoring blood pressure for improvement. Do not believe that any additional workup for secondary cause of hypertension would be necessary at this time. Suspect the patient may benefit from low-dose diuretic. This is not clear whether she is adequately beta blocked. Would be nice to move her way from hydralazine and beta-blaine. Remains room to increase lisinopril additionally. Recommendations -- DC nitropaste -- Renal artery duplex and abdominal MRA reviewed with radiology today -- Restart metoprolol once SBP > 130 mmHg -- Restart lisinopril as needed -- BP was equal in both arms when checked this morning -- Encourage low sodium diet
[2017-01-15] MEDS: ATORVASTATIN 20 MG TAB PO SCH (20:23)
[2017-01-16] VITALS (8 sets, daily range): BP systolic 91–122; BP diastolic 52–84; PULSE 58–68; TEMP 36.6–37.1; O2SAT 96–99
[2017-01-16 06:30] LABS: HEMATOCRIT 39.4 % (37-47); MEAN CELL VOLUME 93.6 fL (80-100); MEAN CORPUSCULAR HEMOGLOBIN 30.6 pg (25-34); MEAN CORPUSCULAR HGB CONC 32.7 g/dl (32-36); MEAN PLATELET VOLUME 9.7 fL (7.4-10.4); PLATELET COUNT 333 K/uL (130-400); RED BLOOD COUNT 4.21 M/uL (4.2-5.4); WHITE BLOOD COUNT 8.49 K/uL (4.8-10.8)
[2017-01-16 07:02] LABS: BUN/CREATININE RATIO 20.4 (10-20); CALCIUM 9.2 mg/dl (8.5-10.1); CREATININE 0.81 mg/dl (0.60-1.20); POTASSIUM 3.8 mmol/L (3.5-5.1)
--- NOTE | 2017-01-16 07:16 | Family Medicine Progress Note ---
Progress Note Date of Service Jan 16, 2017. Subjective Pt evaluation today including: conversation w/ patient, physical exam, chart review, lab review The patient was seen and examined at bedside. No acute overnight events. Normotensive. No episodic HTN. Marijuana Use - pt states that she has not used in a week, she has not recently changed dealers, and cannot associate marijuana use with episodes. Her episodes happen at work sometimes and are not associated with her smoking. Patient is resting comfortably in bed. Denies having any pain. Eating and urinating well. Plan of care was described to the patient and all questions were answered. ROS: No chest pain, no SOB, no abdominal pain, no diaphoresis, no palpitations, no diarrhea. 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 MRA at last visit showed no CATRACHITA, however there was a renal US that showed unilateral CATRACHITA, previous Aldosterone: Renin ratio was normal. Pt will be started on new HTN regime, BB, GIANNI and Diuretic in hopes of controlling symptoms. Pt was encouraged to ambulate to simulate conditions at home. Hypertensive Emergency (resolved) - MRA reviewed with radiology, very unlikely to have CATRACHITA. Pt is currently normotensive. - Unlikely pt's marijuana use is a trigger. - Continue HCTZ 25 mg daily - c/w Metoprolol tartrate 100 mg twice daily - Continue lisinopril 10mg dialy. - Aldosterone and Renin Pending, follow up previous visit 24hr 5HIAA. HLD - continue lipitor DVT - Lovenox daily SQ Dispo: Med Surg, Full Code. Resident Physician Supervision Note: I interviewed and examined the patient. Discussed with Dr. Malcolm and agree with findings and plan as documented in the note. Any exceptions or clarifications are listed here: None Documented By: Souleymane Luis Alfredo feeling fine no further episodes, she wonders if it was HTN the whole time even when it was thought she might have MS. ROS otherwise negative except for as above vitals noted nad breathing unlabored no pallor or icterus HTN - episodic/uncontrolled/with nausea and vomiting -urine serotonin still pending, remainder of w/u for secondary and episodic HTN 'nil ---thought process would be HTN causing nausea/flushing vs less likely nausea precipitating flushing and HTN -d/w pt that while odd that HTN would cause the nausea, not improbable, and that if this is the case, the main issue would just be BP control, and that she would've went from a mild to more moderate HTN patient over the last year --> certainly more common than rare dx's that could precipitate things - especially since it's appearing more and more that those rare dx are unlikely. this will prove to be the case if she does well on good, long-lasting, baseline BP meds ( currently on ACEi, thiazide, and beta blaine). if she continues to have episodes while on these meds, then would need to revisit more odd/rare dx's and also look at nausea being the precipitating factor and flushing/BP just being resultant from the nausea. she expressed understanding and appreciation of this approach -stable for med surg -if no spikes in BP//no further episodes - then home and close f/u tomorrow Resident Involvement: Resident Care Provided Care Provided: Adult Hospital Medicine
[2017-01-16] MEDS: MULTIVITAMIN TAB PO SCH (08:38)
[2017-01-16] MEDS: METOPROLOL TARTRATE 100 MG TAB PO SCH ×2 (08:38→19:46)
[2017-01-16] MEDS: LISINOPRIL 20 MG TAB PO SCH (08:39)
[2017-01-16] MEDS: ASPIRIN 81 MG ECTAB PO SCH (08:39)
[2017-01-16] MEDS: HYDROCHLOROTHIAZIDE 25 MG TAB PO SCH (08:39)
[2017-01-16] MEDS: ENOXAPARIN 40 MG/0.4 ML SYR SQ SCH (08:40)
--- NOTE | 2017-01-16 11:20 | Nephrology Progress Note ---
Nephrology Progress Note Date of Service Jan 16, 2017. Chief Complaint Hypertension Subjective No acute events overnight. Cyndie feels well. She denies any chest pain or palpitations. No flushing. No shortness of breath. Blood pressure has been well below goal with some asymptomatic hypotension. Metoprolol and lisinopril were restarted yesterday. Hydralazine has been held. HCTZ added this morning. No nausea. Appetite good. I spoke with the pharmacist at [facility] this morning. Patient reports that she has filled all prescriptions at [facility]. Records indicated that she recently filled lisinopril 20 mg and metoprolol 100 mg BID. It does not show that she had filled a prescription for hydralazine in at least several months. Cyndie expressed concerns that medications she had taken for MS in the past might be contributing to her labile blood pressure. She was treated with Copaxone and steroids in 2008. Review of Systems A complete review of systems was performed. Pertinent positives are noted above. All other systems are negative. Vital Signs Last 8 Hrs Date Time Temp Pulse Resp B/P (MAP) Pulse Ox O2 Delivery O2 Flow Rate FiO2 01/16/17 08:00 Room Air 01/16/17 07:45 36.9 63 18 122/79 (93) 96 Room Air 01/16/17 06:18 115/70 (85) 01/16/17 04:00 Room Air 01/16/17 03:46 36.9 63 18 91/52 (65) 96 Room Air Last Recorded Weight Weight (Kilograms): 60.600 Physical Exam General Appearance: no apparent distress, + thin Head: normocephalic, atraumatic Eyes: normal inspection, sclerae normal ENT: normal ENT inspection, pharynx normal Neck: supple, no JVD Respiratory/Chest: lungs clear, no respiratory distress, no accessory muscle use Cardiovascular: regular rate, rhythm, no gallop, no murmur Abdomen/GI: non tender, soft Extremities/Musculoskelatal: normal inspection, normal capillary refill, no pedal edema Neurologic/Psych: alert, oriented x 3 Family History Cancer Diabetes mellitus Heart disease Hypertension Lung disease Social History Smoking Status: Current every day smoker Drug Use: marijuana Marital Status: Housing Status: lives with family Occupation: employed 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 Two children. Her son lives at home with her grand child. She has adopted daughter who lives locally. Patient denies tobacco abuse. She does smoke marijuana. Laboratory Results Past 24 Hours 01/16/17 06:15 01/16/17 06:15 Test 01/16/17 06:15 Red Blood Count 4.21 M/uL (4.2-5.4) Mean Corpuscular Volume 93.6 fL (80-100) Mean Corpuscular Hemoglobin 30.6 pg (25-34) Mean Corpuscular Hemoglobin Concent 32.7 g/dl (32-36) RDW Standard Deviation 42.0 fL (36.4-46.3) RDW Coefficient of Variation 12.4 % (11.5-14.5) Mean Platelet Volume 9.7 fL (7.4-10.4) Anion Gap 7.0 mmol/L (3-11) Est Creatinine Clear Calc Drug Dose 74.8 ml/min Estimated GFR () 98.2 Estimated GFR (Non- 84.7 BUN/Creatinine Ratio 20.4 (10-20) Calcium Level 9.2 mg/dl (8.5-10.1) Allergies Coded Allergies: Doxycycline (Verified Allergy, Unknown, rash, 01/11/17) Iodinated Diagnostic Agents (Verified Allergy, Unknown, `, 01/11/17) Latex1 -Allergic Contact Dermititis (Verified Allergy, Unknown, RASH, 01/11) Meperidine (Verified Allergy, Unknown, HIVES, VOMITING, 01/11/17) Prochlorperazine (Verified Allergy, Unknown, ., 01/11/17) [place] (Verified Allergy, Unknown, HIVES, 01/11/17) Tomato (Verified Allergy, Unknown, HIVES, 01/11/17) Uncoded Allergies: Hernandez Beans (Allergy, Unknown, HIVES, 11/27/16) Medications Current Inpatient Medications Medications (Trade) Dose Ordered Sig/Yeimy Route Start Time Stop Time Status Last Admin Dose Admin Acetaminophen (Tylenol Tab) 650 mg Q4H PRN PO 01/14/17 18:15 02/13/17 18:14 01/15/17 13:49 650 MG Al Hydrox/Mg Hydrox/Simethicone (Maalox Max Susp) 15 ml Q4H PRN PO 01/14/17 18:15 02/13/17 18:14 Magnesium Hydroxide (Milk Of Magnesia Susp) 30 ml Q12H PRN PO 01/14/17 18:15 02/13/17 18:14 Zolpidem Tartrate (Ambien Tab) 5 mg HSZ PRN PO 01/14/17 18:15 02/13/17 18:14 Ondansetron HCl (Zofran Inj) 4 mg Q6H PRN IV 01/14/17 18:15 02/13/17 18:14 01/15/17 04:26 4 MG Polyethylene (Miralax Powder Packet) 17 gm DAILY PRN PO 01/14/17 18:15 02/13/17 18:14 Aspirin (Ecotrin Tab) 81 mg DAILY PO 01/15/17 09:00 02/14/17 08:59 01/16/17 08:39 81 MG Atorvastatin Calcium (Lipitor Tab) 20 mg HS PO 01/14/17 21:00 02/13/17 20:59 01/15/17 20:23 20 MG Lisinopril (Zestril Tab) 20 mg DAILY PO 01/15/17 09:00 02/14/17 08:59 01/16/17 08:39 20 MG Metoprolol Tartrate (Lopressor Tab) 100 mg BID PO 01/14/17 21:00 02/13/17 20:59 01/16/17 08:38 100 MG Multivitamins (Multivitamin Tab) 1 tab DAILY PO 01/15/17 09:00 02/14/17 08:59 01/16/17 08:38 1 TAB Enoxaparin Sodium (Lovenox Inj) 40 mg QAM SQ 01/15/17 09:00 02/14/17 08:59 01/16/17 08:40 40 MG Hydralazine HCl (HydrALAZINE INJ) 10 mg Q4 PRN IV. 01/14/17 19:45 02/13/17 19:44 01/14/17 21:08 10 MG Miscellaneous (Iv Fluids Completed) 1 ea PRN PRN N/A 01/14/17 21:00 01/14/18 20:59 Hydrochlorothiazide (Hydrochlorothiazide Tab) 25 mg QAM PO 01/16/17 09:00 02/15/17 08:59 01/16/17 08:39 25 MG Impression (1) Hypertensive urgency, malignant (2) Uncontrolled hypertension Cyndie Velasquez is a 51-year-old female with a history of recurrent accelerated blood pressure readings. Evaluation for secondary causes of hypertension has not identified an etiology. She has not had aldosteronism or elevated renin levels, elevated metanephrines within the plasma or the urine, and there was no significant renal artery stenosis noted on imaging. An evaluation for serotonin syndrome was previously unremarkable per documentation. Thyroid testing and cortisol also normal. Blood pressure has been well within goal with borderline hypotension since admission from the ED on 01/14/17. She is asymptomatic. She appears adequately beta blocked with a resting heart rate in the 60's. Renal function is normal. She is tolerating lisinopril well. A low dose of HCTZ was added this morning. Hydralazine has been stopped preferring the sustained benefit of a diuretic and the effect of an adequate beta blaine. It has been suggested that her episodes of accelerated hypertension may be sympathetic response to stress/anxiety. This remains a possibility. At this time, I do not have another etiology. Dietary sodium restriction was reviewed today. Recommendations Hypertension: -- Continue HCTZ 25 mg daily -- Metoprolol tartrate 100 mg twice daily -- Continue lisinopril as needed -- Check orthostatic vital signs this morning -- Encourage low sodium diet -- Plan of care was discussed with Dr. Lobato this morning Vascular disease: -- No evidence of HD significant CATRACHITA -- Maintained on aspirin 81 mg daily History of possible demyelinating disease/MS: -- Neuro outpatient notes reviewed -- Unlikely that prior treatment is contributing to her current symptoms per my understanding; this was discussed with the patient Anxiety disorder: -- Question benefit further evaluation to consider management options
[2017-01-16] MEDS: ATORVASTATIN 20 MG TAB PO SCH (19:47)
[2017-01-17 01:45] VITALS: BP 190/127; PULSE 74; TEMP 36.6; O2SAT 98
[2017-01-17] MEDS: ONDANSETRON INJ 2 MG/ML 2 ML VIAL IV PRN (01:45)
[2017-01-17] MEDS: HydrALAZINE HCL 20 MG/ML VIAL IV. PRN (01:48)
[2017-01-17] MEDS ORDERED: LORAZEPAM INJ 0.5 MG in SYRINGE 0.75 ML IV STA (05:14)
[2017-01-17] MEDS ORDERED: NURSING VERBAL MED ORDER ONE (05:15)
[2017-01-17 07:38] VITALS: BP 124/82; PULSE 96; TEMP 36.6; O2SAT 96
[2017-01-17 07:47] LABS: HEMATOCRIT 42.7 % (37-47); MEAN CELL VOLUME 91.8 fL (80-100); MEAN CORPUSCULAR HEMOGLOBIN 31.8 pg (25-34); MEAN CORPUSCULAR HGB CONC 34.7 g/dl (32-36); MEAN PLATELET VOLUME 9.6 fL (7.4-10.4); PLATELET COUNT 403 K/uL (130-400); RED BLOOD COUNT 4.65 M/uL (4.2-5.4); WHITE BLOOD COUNT 8.62 K/uL (4.8-10.8)
[2017-01-17] MEDS: METOPROLOL TARTRATE 100 MG TAB PO SCH ×2 (07:54→20:00)
[2017-01-17] MEDS: MULTIVITAMIN TAB PO SCH (07:55)
[2017-01-17] MEDS: LISINOPRIL 20 MG TAB PO SCH (07:55)
[2017-01-17] MEDS: ASPIRIN 81 MG ECTAB PO SCH (07:55)
[2017-01-17] MEDS: HYDROCHLOROTHIAZIDE 25 MG TAB PO SCH ×2 (07:56→20:24)
[2017-01-17] MEDS: ENOXAPARIN 40 MG/0.4 ML SYR SQ SCH (07:56)
--- NOTE | 2017-01-17 08:00 | Family Medicine Progress Note ---
Progress Note Date of Service Jan 17, 2017. Subjective Pt evaluation today including: conversation w/ patient, physical exam, chart review, lab review The patient was seen and examined at bedside. Pt had a hypertensive episode at night and was given IV hydralazine and Zofran per order. Further history and chart review reveals hysterectomy and bilateral oopherectomy 10+ years ago. Ergo not likely menopausal symptoms. At present pt is normotensive and resting comfortably in bed. Denies having any pain. Eating and urinating well. ROS: No headaches, no flushing, no diaphoresis, no palpitations. Plan of care was described to the patient and all questions were answered. Objective Physical Exam General Appearance: WD/WN, no apparent distress Respiratory/Chest: chest non-tender, lungs clear, normal breath sounds, no respiratory distress, no accessory muscle use Cardiovascular: regular rate, rhythm, no edema, no gallop, no JVD, no murmur Abdomen: normal bowel sounds, non tender, soft, no organomegaly, no pulsatile mass Extremities: normal range of motion, non-tender, normal inspection, no pedal edema, no calf tenderness Skin: no rash Assessment and Plan 51F with 4 recent hospitalizations for hypertensive urgency p/w a reoccurance of her symptoms 1 day prior to discharge. MRA at last visit showed no CATRACHITA, however there was a renal US that showed unilateral CATRACHITA, previous Aldosterone: Renin ratio was normal. Working including pheochromocytoma and serotonin syndrome were negative. Pt had a hysterectomy and bilateral oopherectomy 10+ years ago, unlikely post menopausal symptoms. BP regime now include Lisinopril 10mg BID, HCTZ 12.5mg BID and Metoprolol 100mg BID. Pt was encouraged to ambulate to simulate conditions at home. Episodic Hypertensive Emergencies) - MRA reviewed with radiology, very unlikely to have CATRACHITA. Pt is currently normotensive. - Unlikely pt's marijuana use is a trigger. - Not post menopausal symptoms. - Lisinopril 10mg BID, HCTZ 12.5 BID, Metoprolol tartrate 100 mg twice daily. - Today: Will split GIANNI, HCTZ and BB to avoid troughs in med concentrations. HLD - continue lipitor DVT - Lovenox daily SQ Dispo: Med Surg, Full Code. Resident Physician Supervision Note: I interviewed and examined the patient. Discussed with Dr. Malcolm and agree with findings and plan as documented in the note. Any exceptions or clarifications are listed here: None Documented By: Souleymane Lobato had another episode last night. is glad that it happened here rather than at home. was sound asleep when sx awoke her. ROS otherwise negative except for as above notes that she believes her SILVERIO was also BSO - reviewed records - due to fam hx and ?(+) BRCA it appears this was the case. vitals noted nad breathing unlabored refractory and episodic HTN -RN raised good thought of ?vasomotor menopausal sx - but on review, she did in fact have BSO so to have sudden onset vasomotor sx 6 years later seems unlikely. panic attacks can strike suddenly including at sleep but she doesn't seem to be anxious nor does she endorse anxiety -split BP meds to affect better round the clock control -continue to observe Resident Involvement: Resident Care Provided Care Provided: Adult Hospital Medicine
[2017-01-17 08:23] LABS: BUN/CREATININE RATIO 21.8 (10-20); CREATININE 0.87 mg/dl (0.60-1.20); POTASSIUM 3.6 mmol/L (3.5-5.1)
[2017-01-17 09:02] LABS: CALCIUM 10.2 mg/dl (8.5-10.1)
--- NOTE | 2017-01-17 10:53 | Nephrology Progress Note ---
Nephrology Progress Note Date of Service Jan 17, 2017. Chief Complaint Follow up evaluation of hypertension Subjective Patient reports that she was awakened from sleep at about midnight with sharp abdominal discomfort. She felt nauseated and called the RN for assistance. Blood pressure was immediately checked and found to be elevated. Patient then had emesis and was given IV Phenergan and Hydralazine. Her symptoms resolved and she was then able to sleep throughout the night. This morning she was able to take her oral blood pressure medications as prescribed. Her nausea and abdominal pain have not recurred. Review of Systems Constitutional: No fever Cardiovascular: No chest pain Respiratory: No dyspnea at rest Abdomen: No pain, No nausea, No vomiting Extremities: No leg edema A complete review of systems was performed. Pertinent positives are noted above. All other systems are negative. Vital Signs Last 8 Hrs Date Time Temp Pulse Resp B/P (MAP) Pulse Ox O2 Delivery O2 Flow Rate FiO2 01/17/17 08:00 Room Air 01/17/17 07:38 36.6 96 16 124/82 (96) 96 Last Recorded Weight Weight (Kilograms): 60.600 Physical Exam General Appearance: no apparent distress Head: normocephalic, atraumatic Eyes: PERRL, EOMI Neck: no adenopathy Respiratory/Chest: lungs clear Cardiovascular: regular rate, rhythm Abdomen/GI: normal bowel sounds, non tender, soft Extremities/Musculoskelatal: no calf tenderness, no pedal edema Neurologic/Psych: alert, oriented x 3 Family History Cancer Diabetes mellitus Heart disease Hypertension Lung disease Social History Smoking Status: Current every day smoker Drug Use: marijuana Marital Status: Housing Status: lives with family 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 Two children. Her son lives at home with her grand child. She has adopted daughter who lives locally. Patient denies tobacco abuse. She does smoke marijuana. Laboratory Results Past 24 Hours 01/17/17 07:35 01/17/17 07:35 Test 01/16/17 11:19 01/17/17 07:35 Bedside Glucose 97 mg/dl (70-90) Red Blood Count 4.65 M/uL (4.2-5.4) Mean Corpuscular Volume 91.8 fL (80-100) Mean Corpuscular Hemoglobin 31.8 pg (25-34) Mean Corpuscular Hemoglobin Concent 34.7 g/dl (32-36) RDW Standard Deviation 40.8 fL (36.4-46.3) RDW Coefficient of Variation 12.1 % (11.5-14.5) Mean Platelet Volume 9.6 fL (7.4-10.4) Anion Gap 8.0 mmol/L (3-11) Est Creatinine Clear Calc Drug Dose 69.6 ml/min Estimated GFR () 90.0 Estimated GFR (Non- 77.7 BUN/Creatinine Ratio 21.8 (10-20) Calcium Level 10.2 mg/dl (8.5-10.1) Allergies Coded Allergies: Doxycycline (Verified Allergy, Unknown, rash, 01/11/17) Iodinated Diagnostic Agents (Verified Allergy, Unknown, `, 01/11/17) Latex1 -Allergic Contact Dermititis (Verified Allergy, Unknown, RASH, 01/11) Meperidine (Verified Allergy, Unknown, HIVES, VOMITING, 01/11/17) Prochlorperazine (Verified Allergy, Unknown, ., 01/11/17) [place] (Verified Allergy, Unknown, HIVES, 01/11/17) Tomato (Verified Allergy, Unknown, HIVES, 01/11/17) Uncoded Allergies: Hernandez Beans (Allergy, Unknown, HIVES, 11/27/16) Medications Current Inpatient Medications Medications (Trade) Dose Ordered Sig/Yeimy Route Start Time Stop Time Status Last Admin Dose Admin Acetaminophen (Tylenol Tab) 650 mg Q4H PRN PO 01/14/17 18:15 02/13/17 18:14 01/15/17 13:49 650 MG Al Hydrox/Mg Hydrox/Simethicone (Maalox Max Susp) 15 ml Q4H PRN PO 01/14/17 18:15 02/13/17 18:14 Magnesium Hydroxide (Milk Of Magnesia Susp) 30 ml Q12H PRN PO 01/14/17 18:15 02/13/17 18:14 Zolpidem Tartrate (Ambien Tab) 5 mg HSZ PRN PO 01/14/17 18:15 02/13/17 18:14 01/17/17 03:12 5 MG Ondansetron HCl (Zofran Inj) 4 mg Q6H PRN IV 01/14/17 18:15 02/13/17 18:14 6/16/17 01:45 4 MG Polyethylene (Miralax Powder Packet) 17 gm DAILY PRN PO 01/14/17 18:15 02/13/17 18:14 Aspirin (Ecotrin Tab) 81 mg DAILY PO 01/15/17 09:00 02/14/17 08:59 01/17/17 07:55 81 MG Atorvastatin Calcium (Lipitor Tab) 20 mg HS PO 01/14/17 21:00 02/13/17 20:59 01/16/17 19:47 20 MG Lisinopril (Zestril Tab) 20 mg DAILY PO 01/15/17 09:00 02/14/17 08:59 01/17/17 07:55 20 MG Metoprolol Tartrate (Lopressor Tab) 100 mg BID PO 01/14/17 21:00 02/13/17 20:59 01/17/17 07:54 100 MG Multivitamins (Multivitamin Tab) 1 tab DAILY PO 01/15/17 09:00 02/14/17 08:59 01/17/17 07:55 1 TAB Enoxaparin Sodium (Lovenox Inj) 40 mg QAM SQ 01/15/17 09:00 02/14/17 08:59 01/17/17 07:56 40 MG Hydralazine HCl (HydrALAZINE INJ) 10 mg Q4 PRN IV. 01/14/17 19:45 02/13/17 19:44 01/17/17 01:48 10 MG Miscellaneous (Iv Fluids Completed) 1 ea PRN PRN N/A 01/14/17 21:00 01/14/18 20:59 Hydrochlorothiazide (Hydrochlorothiazide Tab) 25 mg QAM PO 01/16/17 09:00 02/15/17 08:59 01/17/17 07:56 25 MG Impression (1) Uncontrolled hypertension Cyndie Velasquez is a 51-year-old female with a history of recurrent accelerated blood pressure readings. Evaluation for secondary causes of hypertension has not identified an etiology. She has not had aldosteronism or elevated renin levels, elevated metanephrines within the plasma or the urine, and there was no significant renal artery stenosis noted on imaging. An evaluation for serotonin syndrome was previously unremarkable per documentation. Thyroid testing and cortisol also normal. Blood pressure has been well within goal with borderline hypotension since admission from the ED on 01/14/17. She is asymptomatic. She appears adequately beta blocked with a resting heart rate in the 60's. Renal function is normal. She is tolerating lisinopril well. A low dose of HCTZ was added this morning. Hydralazine has been stopped preferring the sustained benefit of a diuretic and the effect of an adequate beta blaine. It has been suggested that her episodes of accelerated hypertension may be sympathetic response to stress/anxiety. This remains a possibility. At this time, I do not have another etiology. Dietary sodium restriction was reviewed today. Recommendations HYPERTENSION: -- Elevated blood pressure in response to painful stimulus is an expected response. Blood pressure is controlled this morning on oral medications when taken with the patient resting. -- Continue HCTZ 25 mg qD, Metoprolol tartrate 100 mg BID and Lisinopril 20 mg qD -- Reviewed appropriate technique for checking blood pressure at home. Patient was not holding tobacco/alcohol/NSAIDS/cough-cold preps for 2 hours before checking. She was not resting before she would check her blood pressure. -- If discharge is anticipated, recommend that patient check her blood pressure weekly and maintain a bp diary. She should bring the diary and cuff to each of her PCP and Nephrology office visits -- If discharge is anticipated please schedule Nephrology follow up visit w/ Dr. Oscar in 1 - 2 weeks VASCULAR DISEASE: -- No evidence of HD significant CATRACHITA -- Maintained on aspirin 81 mg daily HISTORY OF POSSIBLE DEMYELINATING DISEASE/MS: -- Neuro outpatient notes reviewed -- Unlikely that prior treatment is contributing to her current symptoms per my understanding; this was discussed with the patient ANXIETY DISORDER: -- Question benefit further evaluation to consider management options
[2017-01-17 15:24] VITALS: BP 90/62; PULSE 75; TEMP 36.8; O2SAT 98
[2017-01-17] MEDS: ATORVASTATIN 20 MG TAB PO SCH (20:25)
[2017-01-17] MEDS: LISINOPRIL 10 MG TAB PO SCH (20:26)
[2017-01-17 21:00] VITALS: BP 100/63; PULSE 76; TEMP 36.8; O2SAT 97
[2017-01-18 06:14] LABS: HEMATOCRIT 40.7 % (37-47); MEAN CELL VOLUME 91.1 fL (80-100); MEAN CORPUSCULAR HEMOGLOBIN 30.6 pg (25-34); MEAN CORPUSCULAR HGB CONC 33.7 g/dl (32-36); MEAN PLATELET VOLUME 9.3 fL (7.4-10.4); PLATELET COUNT 369 K/uL (130-400); RED BLOOD COUNT 4.47 M/uL (4.2-5.4)
[2017-01-18 06:55] LABS: BUN/CREATININE RATIO 23.4 (10-20); CALCIUM 9.5 mg/dl (8.5-10.1); CREATININE 1.1 mg/dl (0.60-1.20); POTASSIUM 3.4 mmol/L (3.5-5.1)
[2017-01-18 07:38] VITALS: BP 103/67; PULSE 90; TEMP 36.7; O2SAT 92
[2017-01-18 08:00] VITALS: BP 104/63; PULSE 78
[2017-01-18] MEDS: ENOXAPARIN 40 MG/0.4 ML SYR SQ SCH (08:00)
[2017-01-18] MEDS: METOPROLOL TARTRATE 100 MG TAB PO SCH (08:04)
[2017-01-18] MEDS: MULTIVITAMIN TAB PO SCH (08:04)
[2017-01-18] MEDS: HYDROCHLOROTHIAZIDE 25 MG TAB PO SCH (08:04)
[2017-01-18] MEDS: LISINOPRIL 10 MG TAB PO SCH (08:04)
[2017-01-18] MEDS: ASPIRIN 81 MG ECTAB PO SCH (08:04)
[2017-01-18] MEDS ORDERED: POTASSIUM CHLORIDE 10 MEQ TABCR PO ONE (09:30)
--- NOTE | 2017-01-18 09:35 | Discharge Summary ---
Discharge Summary Date of Service Jan 18, 2017. (Khang Lombardi MD) Discharge Summary Admission Date: Jan 14, 2017 at 18:17 Discharge Date: Jan 18, 2017 Discharge Disposition: Home Principal Diagnosis: Hypertensive Urgency Immunizations: Have You Had Influenza Vaccine: Unknown History of Tetanus Vaccine?: Unknown History of Pneumococcal: Unknown History of Hepatitis B Vaccine: Unknown Consultations: Nephrology (Khang Lombardi MD) Discharge Exam Patient with no acute events overnight She slept very well overnight and did not have any further events. She said her blood pressure has looked really goo over the past day and she is happy with he new bid dosing regimen Review of Systems: Constitutional: No fever, No chills, No sweats Respiratory: No cough, No shortness of breath Cardiovascular: No chest pain, No orthopnea, No palpitations Abdomen: No pain, No nausea, No vomiting Physical Exam: General Appearance: WD/WN, no apparent distress Eyes: PERRL, EOMI ENT: hearing grossly normal, pharynx normal Neck: supple, no JVD, + thyroid abnormalities (enlarhed right lobe of thyroid) Respiratory/Chest: lungs clear, normal breath sounds, no accessory muscle use Cardiovascular: regular rate, rhythm, normal peripheral pulses Abdomen / GI: non tender, soft 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: normal mood/affect, oriented x 3 (Khang Lombardi MD) Hospital Course Cyndie Velasquez is a 51-year-old admitted to the hospital after she developed flushing, nausea and shortness of breath. This caused her to check her blood pressure which was markedly elevated and therefore she was admitted to the hospital through the emergency department. In the ED she was given hydralazine 25mg PO, metoprolol 100mg and was given 10mg of IV hydralazine. She also had 1 inch of nitropaste. Her blood pressure markedly improved and patients symptoms started to resolved. After being admitted her blood pressure was notably low and therefore she had her blood pressure meds held. Patient has had an extensive workup at [facility] from November-December of 2016 all done at [facility] (please see charts for workup done in hospital). She had a renin and aldosterone levels taken during this hospital stay which were still pending at discharge. The patient was discharged on 2016 with metoprolol 100mg bid, lisinopril 20mg od and HCTZ 12.5 in the morning. She did only have one subsequent episode of elevated blood pressure while in the hospital. She will be following with Dr. Oscar as well as her PCP in 1-2 weeks. Before discharge patient got a thyroid ultrasound which should a Multicystic multinodular thyroid. Patient should get follow up thyroid functions tests as this may be the reason for her uncontrollable blood pressure. She may very well be in the early stage of Hashimotos thyroiditis in which her thyroid is being attacked by antibodies causing thyroid hormone to be release intermittently Total Time Spent: Less than 30 minutes This includes examination of the patient, discharge planning, medication reconciliation, and communication with other providers. (Khang Lombardi MD) Resident Physician Supervision Note: I interviewed and examined the patient. Discussed with Dr. Lombardi and agree with findings and plan as documented in the note. Any exceptions or clarifications are listed here: None Documented By: Souleymane Lobato feeling better no further episodes wants to go home. dr lombardi noted a thyroid nodule on exam. ??while odd, if she were mid-pamela's could she possibly be releasing busts of thyroid hormone from time to time causing her "episodes" --> thyroid US not inconsistent w a pamela's appearance. stable for home but will ask for endocrine referral to consider this further. ROS otherwise negative except for as above vitals noted nad agree thyroid feels sl nodularity R>L, no clearly dominant nodule uncontrolled episodic HTN - does seem to be doing better less episodes on current BP regimen dc home on bid hctz/lisinopril/metoprolol. due to new ACEi and HCTZ - repeat BMP ~1 weeks. -?concern on could her episodes be bursts from hashimotos - doubtful but possible - referral to endocrine. (Souleymane Lobato D.O.) Discharge Instructions Please refer to the electronic Patient Visit Report (Discharge Instructions) for additional information. (Khang Lombardi MD) Additional Copies To Yashira Arizmendi C.R.N.P.; Igor Oscar D.O.
--- NOTE | 2017-01-18 10:23 | Nephrology Progress Note ---
Nephrology Progress Note Date of Service Jan 18, 2017. Chief Complaint Follow up evaluation of hypertension Subjective Mrs. Velasquez was seen & examined in her hospital room this morning. There were no complications overnight. She has had no further abdominal discomfort, nausea or vomiting. She is tolerating her current blood pressure regimen without complication. She reports that her blood pressure control is much improved. She is anxious to return home. Review of Systems Constitutional: No fever Cardiovascular: No chest pain Respiratory: No dyspnea at rest Abdomen: No pain, No nausea, No vomiting Extremities: No leg edema A complete review of systems was performed. Pertinent positives are noted above. All other systems are negative. Vital Signs Last 8 Hrs Date Time Temp Pulse Resp B/P (MAP) Pulse Ox O2 Delivery O2 Flow Rate FiO2 01/18/17 08:00 78 104/63 (77) 01/18/17 08:00 Room Air 01/18/17 07:38 36.7 90 16 103/67 (79) 92 Room Air Last Recorded Weight Weight (Kilograms): 60.600 Physical Exam General Appearance: no apparent distress Head: normocephalic, atraumatic Eyes: PERRL, EOMI Neck: no adenopathy Respiratory/Chest: lungs clear Cardiovascular: regular rate, rhythm Abdomen/GI: normal bowel sounds, non tender, soft Extremities/Musculoskelatal: no pedal edema Neurologic/Psych: alert, oriented x 3 Family History Cancer Diabetes mellitus Heart disease Hypertension Lung disease Social History Smoking Status: Current every day smoker Drug Use: marijuana Marital Status: Housing Status: lives with family 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 Her son lives at home with her grand child. She has adopted daughter who lives locally. Patient denies tobacco abuse. She does smoke marijuana. Laboratory Results Past 24 Hours 01/18/17 05:55 01/18/17 05:55 Test 01/18/17 05:55 Red Blood Count 4.47 M/uL (4.2-5.4) Mean Corpuscular Volume 91.1 fL (80-100) Mean Corpuscular Hemoglobin 30.6 pg (25-34) Mean Corpuscular Hemoglobin Concent 33.7 g/dl (32-36) RDW Standard Deviation 40.5 fL (36.4-46.3) RDW Coefficient of Variation 12.1 % (11.5-14.5) Mean Platelet Volume 9.3 fL (7.4-10.4) Anion Gap 10.0 mmol/L (3-11) Est Creatinine Clear Calc Drug Dose 55.1 ml/min Estimated GFR () 67.8 Estimated GFR (Non- 58.5 BUN/Creatinine Ratio 23.4 (10-20) Calcium Level 9.5 mg/dl (8.5-10.1) Allergies Coded Allergies: Doxycycline (Verified Allergy, Unknown, rash, 01/11/17) Iodinated Diagnostic Agents (Verified Allergy, Unknown, `, 01/11/17) Latex1 -Allergic Contact Dermititis (Verified Allergy, Unknown, RASH, 01/11) Meperidine (Verified Allergy, Unknown, HIVES, VOMITING, 01/11/17) Prochlorperazine (Verified Allergy, Unknown, ., 01/11/17) [place] (Verified Allergy, Unknown, HIVES, 01/11/17) Tomato (Verified Allergy, Unknown, HIVES, 01/11/17) Uncoded Allergies: [place] Beans (Allergy, Unknown, HIVES, 11/27/16) Medications Current Inpatient Medications Medications (Trade) Dose Ordered Sig/Yeimy Route Start Time Stop Time Status Last Admin Dose Admin Acetaminophen (Tylenol Tab) 650 mg Q4H PRN PO 01/14/17 18:15 02/13/17 18:14 01/15/17 13:49 650 MG Al Hydrox/Mg Hydrox/Simethicone (Maalox Max Susp) 15 ml Q4H PRN PO 01/14/17 18:15 02/13/17 18:14 Magnesium Hydroxide (Milk Of Magnesia Susp) 30 ml Q12H PRN PO 01/14/17 18:15 02/13/17 18:14 Zolpidem Tartrate (Ambien Tab) 5 mg HSZ PRN PO 01/14/17 18:15 02/13/17 18:14 01/17/17 03:12 5 MG Ondansetron HCl (Zofran Inj) 4 mg Q6H PRN IV 01/14/17 18:15 02/13/17 18:14 01/17/17 01:45 4 MG Polyethylene (Miralax Powder Packet) 17 gm DAILY PRN PO 01/14/17 18:15 02/13/17 18:14 Aspirin (Ecotrin Tab) 81 mg DAILY PO 01/15/17 09:00 02/14/17 08:59 01/18/17 08:04 81 MG Atorvastatin Calcium (Lipitor Tab) 20 mg HS PO 01/14/17 21:00 02/13/17 20:59 01/17/17 20:25 20 MG Metoprolol Tartrate (Lopressor Tab) 100 mg BID PO 01/14/17 21:00 02/13/17 20:59 01/18/17 08:04 100 MG Multivitamins (Multivitamin Tab) 1 tab DAILY PO 01/15/17 09:00 02/14/17 08:59 01/18/17 08:04 1 TAB Enoxaparin Sodium (Lovenox Inj) 40 mg QAM SQ 01/15/17 09:00 02/14/17 08:59 01/17/17 07:56 40 MG Hydralazine HCl (HydrALAZINE INJ) 10 mg Q4 PRN IV. 01/14/17 19:45 02/13/17 19:44 01/17/17 01:48 10 MG Miscellaneous (Iv Fluids Completed) 1 ea PRN PRN N/A 01/14/17 21:00 01/14/18 20:59 Hydrochlorothiazide (Hydrochlorothiazide Tab) 12.5 mg BID PO 01/17/17 20:00 02/16/17 19:59 01/18/17 08:04 12.5 MG Lisinopril (Zestril Tab) 10 mg BID PO 01/17/17 20:00 02/16/17 19:59 01/18/17 08:04 10 MG Potassium Chloride (Klor-Con M10) 10 meq DAILY PO 01/19/17 08:00 02/18/17 07:59 Impression (1) Uncontrolled hypertension Cyndie Velasquez is a 51-year-old female with a history of recurrent accelerated blood pressure readings. Evaluation for secondary causes of hypertension has not identified an etiology. She has not had aldosteronism or elevated renin levels, elevated metanephrines within the plasma or the urine, and there was no significant renal artery stenosis noted on imaging. An evaluation for serotonin syndrome was previously unremarkable per documentation. Thyroid testing and cortisol also normal. Blood pressure has been well within goal with borderline hypotension since admission from the ED on 01/14/17. She is asymptomatic. She appears adequately beta blocked with a resting heart rate in the 60's. Renal function is normal. She is tolerating lisinopril well. A low dose of HCTZ was added. Hydralazine has been stopped preferring the sustained benefit of a diuretic and the effect of an adequate beta blaine. It has been suggested that her episodes of accelerated hypertension may be sympathetic response to stress/anxiety. This remains a possibility. At this time, I do not have another etiology. Dietary sodium restriction has been reviewed. Recommendations HYPERTENSION: -- Blood pressure is controlled this morning on oral medications when taken with the patient resting. -- Reduce HCTZ to 12.5 mg each morning, Metoprolol tartrate 100 mg BID and Lisinopril 20 mg daily -- Reviewed appropriate technique for checking blood pressure at home. Patient was not holding tobacco/alcohol/NSAIDS/cough-cold preps for 2 hours before checking. She was not resting before she would check her blood pressure. -- If discharge is anticipated, recommend that patient check her blood pressure weekly and maintain a bp diary. She should bring the diary and cuff to each of her PCP and Nephrology office visits -- If discharge is anticipated please schedule Nephrology follow up visit w/ Dr. Oscar in 1 - 2 weeks VASCULAR DISEASE: -- No evidence of hemodynamically significant CATRACHITA -- Maintained on aspirin 81 mg daily HISTORY OF POSSIBLE DEMYELINATING DISEASE/MS: -- Neuro outpatient notes reviewed -- Unlikely that prior treatment is contributing to her current symptoms per my understanding; this was discussed with the patient ANXIETY DISORDER: -- Question benefit further evaluation to consider management options
[2017-01-18] MEDS ORDERED: HYDR12.55 PO (11:31)
--- NOTE | 2017-01-18 11:45 | Discharge Instructions ---
Discharge Instructions Date of Service Jan 18, 2017. Admission Reason for Admission: Chronic Hypertension, Hypertensive Urgency Discharge Discharge Diagnosis / Problem: Hypertensive Urgency Discharge Goals Goal(s): Improve function, Improve disease control, Learn about illness, Screening Activity Recommendations Activity Limitations: resume your previous activity . Instructions / Follow-Up Instructions / Follow-Up While in the hospital we switched around a couple of your medications. We will be sending a prescription to the pharmacy for Hydrochlorothiazide of 12.5mg each morning. We recommend that your check your blood pressure weekly and maintain a blood pressure diary. You should bring the diary and cuff to each of your PCP and Nephrology office visits. Please make an appointment to meet with Dr. Oscar in 1-2 weeks If you have any worsening vomiting, headache or chest pain please come back to the emergency department. Current Hospital Diet Patient's current hospital diet: Regular Diet Discharge Diet Recommended Diet: Low Sodium Diet (2gm Na) Pending Studies Studies pending at discharge: no Laboratory Results Hemoglobin A1c Test 11/28/16 07:35 Range/Units Estimated Average Glucose 111 mg/dl Hemoglobin A1c 5.5 4.5-5.6 % Lipid Panel Test 11/29/16 06:23 Range/Units Triglycerides Level 218 H 0-150 mg/dl Cholesterol Level 275 H 0-200 mg/dl HDL Cholesterol 61 mg/dl Cholesterol/HDL Ratio 4.5 LDL Cholesterol, Calculated 170 mg/dl Medical Emergencies . Who to Call and When: Medical Emergencies: If at any time you feel your situation is an emergency, please call 911 immediately. . Non-Emergent Contact Non-Emergency issues call your: Primary Care Provider, Tool Machine Set Up Operator . . "Provider Documentation" section prepared by Khang Fu. . VTE Core Measure Inpt VTE Proph given/why not?: Enoxaparin (Lovenox)SQ
[2017-01-18] MEDS ORDERED: LSN10 PO (13:30)
[2017-01-18] MEDS ORDERED: HYDR25TA5 PO (13:30)
[2017-01-18 15:12] VITALS: BP 104/63; PULSE 78; TEMP 36.7; O2SAT 92
--- NOTE | 2017-01-18 15:29 | DIAGNOSTIC IMAGING REPORT ---
THYROID ULTRASOUND HISTORY: Thyroid nodule nodules - ?pamela's appearance COMPARISON: None. FINDINGS: Right lobe: Maximum dimension 5.5 cm. Multiple hypoechoic nodules are present measuring up to 7 mm. Left lobe: Maximum dimension 5.5 cm. Multiple nodules are present with largest measuring up to 6 mm. Isthmus: No nodules. IMPRESSION: Multicystic multinodular thyroid. Electronically signed by: Walt Fernandez M.D. 01/18/2017 3:28 PM Dictated Date/Time: 01/18/2017 3:26 PM
[2017-01-18] MEDS ORDERED: LISI-461 PO (15:39)
[2017-01-19] MEDS ORDERED: POTASSIUM CHLORIDE 10 MEQ TABCR PO SCH (08:00)
[2017-01-19] MEDS ORDERED: HYDROCHLOROTHIAZIDE 25 MG TAB PO SCH (08:00)
[2017-04-26] MEDS ORDERED: CLON0.1T12 PO (07:48)
[2017-04-26] MEDS ORDERED: [UNRECOGNIZED DRUG - CODE] OTB (07:48)
[2017-05-08] MEDS ORDERED: CZR50 PO (13:17)
[2017-06-27] MEDS ORDERED: SERT50TA PO (15:54)
== END 2017-01-18 16:20 | disposition home or self-care (01) ==
LOC: EDBD 16:32 → C.EDB 16:32 → C.2E 18:17 → ENRESERV 18:44 → CANRESERV 01-16 18:11 → ENRESERV 01-16 18:11 → C.4E 01-16 19:26
PROVIDERS: ADMIT Family Medicine; ATTEND Family Medicine
DX: I16.0 Hypertensive urgency (principal); E87.6 Hypokalemia; G35 Multiple sclerosis; I70.1 Atherosclerosis of renal artery; I45.81 Long QT syndrome; F17.210 Nicotine dependence, cigarettes, uncomplicated; Z83.3 Family history of diabetes mellitus; Z82.49 Family history of ischemic heart disease and other diseases of the circulatory system; Z79.82 Long term (current) use of aspirin; Z79.899 Other long term (current) drug therapy

== ENCOUNTER → 2017-02-24 | Outpatient (CLI) | payer OTHER ==
[~2017-02-24] MED LIST changes: +CLON0.1T12 PO; +CZR50 PO; -HYDR-4716 PO; +HYDR25TA4 PO; +HYDR25TA5 PO; +LISI-461 PO; -LISI-725 PO; +METO100T14 PO; +ONDA4TAB10 SL; +[UNRECOGNIZED DRUG - CODE] OTB
[2017-02-24 12:52] LABS: BLOOD UREA NITROGEN 26 mg/dl (7-18); BUN/CREATININE RATIO 26.1 (10-20); CALCIUM 9.8 mg/dl (8.5-10.1); CARBON DIOXIDE 29 mmol/L (21-32); CHLORIDE 103 mmol/L (98-107); CHOLESTEROL 171 mg/dl (0-200); GLUCOSE 100 mg/dl (70-99); POTASSIUM 3.8 mmol/L (3.5-5.1); SODIUM 138 mmol/L (136-145); TRIGLYCERIDES 71 mg/dl (0-150); VERY LOW DENSITY LIPOPROT CALC 14 mg/dl
[2017-02-24 12:55] LABS: CHOLESTEROL/HDL RATIO 2.8; HDL CHOLESTEROL 61 mg/dl; LDL CHOLESTEROL CALCULATED 96 mg/dl; PHOSPHORUS 3.7 mg/dl (2.5-4.9)
[2017-02-25 15:29] LABS: MICROSOMAL AB <1 IU/ML (<9); THYROGLOBULIN 18.3 NG/ML (2.8-40.9)
== END | disposition home or self-care (01) ==
LOC: C.LABPBG 08:43
PROVIDERS: ATTEND Nurse Practitioner Adult Health
DX: I10 Essential (primary) hypertension (principal); E78.5 Hyperlipidemia, unspecified

== ENCOUNTER 2017-03-15 06:39 | Inpatient (IN) | payer OTHER ==
[2017-03-15] VITALS (8 sets, daily range): BP systolic 86–192; BP diastolic 47–109; PULSE 60–87; TEMP 36.8–37.1; O2SAT 96–98; Ht 167.6 cm; Wt 61.3 kg
[~2017-03-15] VITALS: Ht 167.6 cm; Wt 61.3 kg
[~2017-03-15 06:39] MED LIST changes: -CLON0.1T12 PO; -CZR50 PO; -HYDR25TA4 PO; -METO100T14 PO; -ONDA4TAB10 SL; -[UNRECOGNIZED DRUG - CODE] OTB
[2017-03-15] MEDS ORDERED: ONDANSETRON INJ 2 MG/ML 2 ML VIAL IV STA (06:56)
[2017-03-15] MEDS ORDERED: HydrALAZINE HCL 20 MG/ML VIAL IV. STA (06:56)
[2017-03-15] MEDS ORDERED: SODIUM CHLORIDE 0.9% 1000ML 1,000 ML IV STA (06:56)
--- NOTE | 2017-03-15 06:56 | EMERGENCY ROOM VISIT NOTE ---
History Report prepared by Andres: Shruthi Suarez Under the Supervision of: Dr. Khang Her M.D. First contact with patient: 06:52 Chief Complaint: HYPERTENSION Stated Complaint: HIGH BP History of Present Illness The patient is a 52 year old female who presents to the Emergency Room with complaints of hypertension beginning this morning. The patient states that she has been unable to keep her blood pressure medication in her system because she keeps vomiting. She states that she has not taken anything for her vomiting today. The patient reports that she has been smoking marijuana, but does not believe that this is the cause of her symptoms. The patient also denies chest pain, abdominal pain, fevers, and urinary symptoms. Source of History: patient Onset: this morning Position: other (global) Quality: other (hypertension ) Associated Symptoms: + vomiting, No chest pain, No abdominal pain, No urinary symptoms Review of Systems See HPI for pertinent positives & negatives. A total of 10 systems reviewed and were otherwise negative. Past Medical & Surgical Medical Problems: (1) Atherosclerosis Nos (2) Chronic hypertension (3) Elevated troponin I level (4) Hypertension Nos (5) HYPERTENSIVE URGENCY (6) Hypertensive urgency, malignant (7) Hypokalemia (8) Intractable nausea and vomiting (9) Malignant essential hypertension (10) Marijuana dependence (11) Nausea & vomiting (12) Prolonged QT interval (13) Renal artery stenosis (14) Uncontrolled hypertension Family History Cancer Diabetes mellitus Heart disease Hypertension Lung disease Social History Smoking Status: Never Smoker Alcohol Use: occasionally Drug Use: marijuana Marital Status: Housing Status: lives with family Occupation Status: employed Current/Historical Medications Scheduled Aspirin (Aspirin Chewable), 81 MG PO DAILY Atorvastatin (Lipitor), 20 MG PO HS Hydrochlorothiazide (Hydrochlorothiazide), 12.5 MG PO BID Lisinopril (Lisinopril), 10 MG PO BID Metoprolol Tartrate (Metoprolol Tartrate), 100 MG PO BID Multivitamin (Multivitamin), 1 TAB PO DAILY Allergies Coded Allergies: Doxycycline (Verified Allergy, Unknown, rash, 03/15/17) Iodinated Diagnostic Agents (Verified Allergy, Unknown, `, 03/15/17) Latex1 -Allergic Contact Dermititis (Verified Allergy, Unknown, RASH, 03/15) Meperidine (Verified Allergy, Unknown, HIVES, VOMITING, 03/15/17) Prochlorperazine (Verified Allergy, Unknown, ., 03/15/17) [place] (Verified Allergy, Unknown, HIVES, 03/15/17) Tomato (Verified Allergy, Unknown, HIVES, 03/15/17) Uncoded Allergies: Hernandez Beans (Allergy, Unknown, HIVES, 11/27/16) Physical Exam Vital Signs Date Time Temp Pulse Resp B/P (MAP) Pulse Ox O2 Delivery O2 Flow Rate FiO2 03/15/17 09:31 152/98 03/15/17 09:26 78 10 03/15/17 09:21 74 16 100 03/15/17 09:06 78 11 99 03/15/17 09:01 157/112 03/15/17 08:51 77 19 96 03/15/17 08:36 77 15 97 03/15/17 08:31 174/120 03/15/17 08:29 71 15 99 03/15/17 08:20 165/105 03/15/17 08:19 /178 03/15/17 08:16 /178 03/15/17 08:14 76 21 03/15/17 07:59 79 18 03/15/17 07:44 62 18 03/15/17 07:39 73 17 03/15/17 07:31 197/96 03/15/17 07:19 97 Room Air 03/15/17 07:18 53 03/15/17 07:10 195/124 03/15/17 06:43 36.6 66 18 202/113 97 Room Air Physical Exam GENERAL: Patient is nauseous appearing and in mild distress. Patient is diaphoretic. HEENT: No acute trauma, normocephalic atraumatic, mucous membranes moist, no nasal congestion, no scleral icterus. NECK: No stridor, no adenopathy, no meningismus, trachea is midline. LUNGS: No dyspnea. Clear to auscultation and equal bilaterally. No wheeze, no rhonchi. HEART: Regular rate and rhythm. No murmurs, rubs, gallops appreciated. ABDOMEN: Soft, nontender, bowel sounds positive, no masses appreciated, no peritonitis. BACK: No midline tenderness, no CVA tenderness EXTREMITIES: Normal motion all extremities, no cyanosis, no edema. NEUROLOGIC: Alert and oriented, no acute motor or sensory deficits, no focal weakness, cranial nerves grossly intact. SKIN: No rash, no jaundice, no diaphoresis. Medical Decision & Procedures ER Provider Diagnostic Interpretation: X ray results are stated below per my interpretation and the radiologist's interpretation. CHEST ONE VIEW PORTABLE HISTORY: Persistent vomiting COMPARISON: Chest 01/14/2017 FINDINGS: The lungs are clear. Cardiac silhouette is normal in size. No pleural effusions. No pneumothorax. Old, healed right-sided rib fracture. IMPRESSION: No acute process. Electronically signed by: Sam Rodriguez M.D. 03/15/2017 7:46 AM Dictated Date/Time: 03/15/2017 7:44 AM Laboratory Results 03/15/17 07:06 Red Blood Count 4.39, Mean Corpuscular Volume 90.9, Mean Corpuscular Hemoglobin 31.2, Mean Corpuscular Hemoglobin Concent 34.3, Mean Platelet Volume 9.8, Neutrophils (%) (Auto) 74.0, Lymphocytes (%) (Auto) 19.5, Monocytes (%) (Auto) 4.5, Eosinophils (%) (Auto) 1.0, Basophils (%) (Auto) 0.6, Neutrophils # (Auto) 8.03, Lymphocytes # (Auto) 2.11, Monocytes # (Auto) 0.49, Eosinophils # (Auto) 0.11, Basophils # (Auto) 0.06 03/15/17 07:06 Test 03/15/17 07:06 03/15/17 08:13 03/15/17 08:40 White Blood Count 10.84 K/uL (4.8-10.8) Red Blood Count 4.39 M/uL (4.2-5.4) Hemoglobin 13.7 g/dL (12.0-16.0) Hematocrit 39.9 % (37-47) Mean Corpuscular Volume 90.9 fL (80-100) Mean Corpuscular Hemoglobin 31.2 pg (25-34) Mean Corpuscular Hemoglobin Concent 34.3 g/dl (32-36) Platelet Count 408 K/uL (130-400) Mean Platelet Volume 9.8 fL (7.4-10.4) Neutrophils (%) (Auto) 74.0 % Lymphocytes (%) (Auto) 19.5 % Monocytes (%) (Auto) 4.5 % Eosinophils (%) (Auto) 1.0 % Basophils (%) (Auto) 0.6 % Neutrophils # (Auto) 8.03 K/uL (1.4-6.5) Lymphocytes # (Auto) 2.11 K/uL (1.2-3.4) Monocytes # (Auto) 0.49 K/uL (0.11-0.59) Eosinophils # (Auto) 0.11 K/uL (0-0.5) Basophils # (Auto) 0.06 K/uL (0-0.2) RDW Standard Deviation 41.9 fL (36.4-46.3) RDW Coefficient of Variation 12.7 % (11.5-14.5) Immature Granulocyte % (Auto) 0.4 % Immature Granulocyte # (Auto) 0.04 K/uL (0.00-0.02) Anion Gap 9.0 mmol/L (3-11) Est Creatinine Clear Calc Drug Dose 45.6 ml/min Estimated GFR () 50.3 Estimated GFR (Non- 43.4 BUN/Creatinine Ratio 21.4 (10-20) Calcium Level 10.0 mg/dl (8.5-10.1) Total Bilirubin 0.4 mg/dl (0.2-1) Direct Bilirubin < 0.1 mg/dl (0-0.2) Aspartate Amino Transf (AST/SGOT) 16 U/L (15-37) Alanine Aminotransferase (ALT/SGPT) 26 U/L (12-78) Alkaline Phosphatase 75 U/L (45-117) Total Creatine Kinase 126 U/L (26-192) Creatine Kinase MB 2.2 ng/ml (0.5-3.6) Creatine Kinase MB Ratio 1.7 (0-3.0) Troponin I 0.124 ng/ml (0-0.045) Total Protein 8.0 gm/dl (6.4-8.2) Albumin 4.1 gm/dl (3.4-5.0) Lipase 156 U/L (73-393) Thyroid Stimulating Hormone (TSH) 1.630 uIu/ml (0.300-4.500) Free Thyroxine 1.09 ng/dl (0.80-1.60) Cortisol AM Sample 65.83 mcg/dl (4.30-22.40) Urine Color YELLOW Urine Appearance CLEAR (CLEAR) Urine pH 6.5 (4.5-7.5) Urine Specific [place] 1.014 (1.000-1.030) Urine Protein NEG (NEG) Urine Glucose (UA) NEG (NEG) Urine Ketones NEG (NEG) Urine Occult Blood NEG (NEG) Urine Nitrite NEG (NEG) Urine Bilirubin NEG (NEG) Urine Urobilinogen NEG (NEG) Urine Leukocyte Esterase NEG (NEG) Urine WBC (Auto) 1-5 /hpf (0-5) Urine RBC (Auto) 5-10 /hpf (0-4) Urine Hyaline Casts (Auto) 1-5 /lpf (0-5) Urine Epithelial Cells (Auto) 10-20 /lpf (0-5) Urine Bacteria (Auto) NEG (NEG) Urine Opiates Screen NEG (NEG) Urine Methadone, Qualitative NEG (NEG) Urine Barbiturates NEG (NEG) Urine Phencyclidine (PCP) Level NEG (NEG) Ur Amphetamine/Methamphetamine NEG (NEG) MDMA (Ecstasy) Screen NEG (NEG) Urine Benzodiazepines Screen NEG (NEG) Urine Cocaine Metabolite NEG (NEG) Urine Marijuana (THC) POS (NEG) Laboratory results as reviewed by me. Medications Administered Medications (Trade) Dose Ordered Sig/[place] Route Start Time Stop Time Status Last Admin Dose Admin Sodium Chloride 1,000 ml @ 999 mls/hr Q1H1M STAT IV 03/15/17 06:56 03/15/17 07:56 DC 03/15/17 07:16 999 MLS/HR Ondansetron HCl (Zofran Inj) 4 mg NOW STAT IV 03/15/17 06:56 03/15/17 06:58 DC 03/15/17 07:16 4 MG Hydralazine HCl (HydrALAZINE INJ) 10 mg NOW STAT IV. 03/15/17 06:56 03/15/17 06:58 DC 03/15/17 07:16 10 MG Labetalol HCl (Normodyne IV) 20 mg NOW STAT IV 03/15/17 07:55 03/15/17 07:56 DC 03/15/17 08:05 20 MG ECG Indication: other (hypertension ) Rate (beats per minute): 53 Rhythm: sinus bradycardia Findings: no acute ischemic change, no ectopy, other (QTC of 459) ED Course 0652: The patient was evaluated in room B3. A complete history and physical exam was performed. 0656: Ordered Hydralazine HCl 10 mg IV, Zofran Inj 4 mg IV, Sodium Chloride 1, 000 ml @ 999 mls/hr IV. 0755: Ordered Labetalol HCl 20 mg IV. 0808: The patient has an elevated Troponin. 0826: The patient's nausea has improved and she is no longer vomiting. 0828: Discussed the patient's case with Dr. Roberts of [facility]. The patient will be evaluated by Dr. Roberts. Medical Decision Differential: Benign Hypertension, Hypertensive Urgency/Emergency, Cardiovascular Pathology, Endocrine, Metabolic/Electrolyte, Renal Disease, End- organ Damage, amongst other pathologies entertained. 52 yr old female arrives with complaint of nausea, vomiting, and generalized weakness. Diaphoretic on exam though otherwise unremarkable. BP coming down with labetalol and hydralazine which she has tolerated previously. No further vomiting. Denies CP. EKG without ischemia though trop is mildly elevated. I suspect elevation is secondary to renal insufficient which is new as opposed to ACS. That said, she will need to come in for further work-up and evaluation. Her symptoms have been on and off for several months now without clear cause other than possible cannabis hyperemesis syndrome. Thus to widen differential I opted to do cortisol/thyroid testing. Cortisol is quite elevated for morning lab thus possible adrenal issue could be route cause. May just be stress response thus will defer to hospitalist for further work-up and evaluation. Medication Reconcilliation Current Medication List: was personally reviewed by me Blood Pressure Screening Patient's blood pressure: Elevated blood pressure Blood pressure disposition: Referred to PCP Consults Time Called: 0800 Consulting Physician: [facility] Returned Call: 08 Discussed the patient's case. The patient will be evaluated for further treatment and disposition. Impression Primary Impression: Intractable nausea and vomiting Additional Impressions: Elevated troponin Hypertensive emergency Elevated morning serum cortisol level Scribe Attestation The scribe's documentation has been prepared under my direction and personally reviewed by me in its entirety. I confirm that the note above accurately reflects all work, treatment, procedures, and medical decision making performed by me. Departure Information Dispostion Being Evaluated By Hospitalist Referrals Yashira Arizmendi C.R.N.P. (PCP) Patient Instructions My [facility] Problem Qualifiers
[2017-03-15 07:27] LABS: BASO % 0.6 %; BASO ABS # 0.06 K/uL (0-0.2); COMPLETE YES; HEMATOCRIT 39.9 % (37-47); IG% 0.4 %; LYMPH % 19.5 %; LYMPH ABS # 2.11 K/uL (1.2-3.4); MEAN CELL VOLUME 90.9 fL (80-100); MEAN CORPUSCULAR HEMOGLOBIN 31.2 pg (25-34); MEAN CORPUSCULAR HGB CONC 34.3 g/dl (32-36); MEAN PLATELET VOLUME 9.8 fL (7.4-10.4); MONO % 4.5 %; PLATELET COUNT 408 K/uL (130-400); RED BLOOD COUNT 4.39 M/uL (4.2-5.4); WHITE BLOOD COUNT 10.84 K/uL (4.8-10.8)
--- NOTE | 2017-03-15 07:47 | DIAGNOSTIC IMAGING REPORT ---
CHEST ONE VIEW PORTABLE HISTORY: Persistent vomiting COMPARISON: Chest 01/14/2017 FINDINGS: The lungs are clear. Cardiac silhouette is normal in size. No pleural effusions. No pneumothorax. Old, healed right-sided rib fracture. IMPRESSION: No acute process. Electronically signed by: Sam Rodriguez M.D. 03/15/2017 7:46 AM Dictated Date/Time: 03/15/2017 7:44 AM
[2017-03-15 07:53] LABS: ALT/SGPT 26 U/L (12-78); AST/SGOT 16 U/L (15-37); BLOOD UREA NITROGEN 30 mg/dl (7-18); BUN/CREATININE RATIO 21.4 (10-20); CARBON DIOXIDE 28 mmol/L (21-32); CHLORIDE 96 mmol/L (98-107); GLUCOSE 139 mg/dl (70-99); SODIUM 133 mmol/L (136-145)
[2017-03-15] MEDS ORDERED: LABETALOL HCL IV 5 MG/ML 20ML IV STA (07:55)
[2017-03-15 08:05] LABS: ALKALINE PHOSPHATASE 75 U/L (45-117); CKMB/CK RATIO 1.7 (0-3.0)
[2017-03-15 09:02] LABS: MANUAL MICROSCOPIC REQUIRED? NO; REVIEW REQ? NO; URINE APPEARANCE CLEAR (CLEAR); URINE BILIRUBIN NEG (NEG); URINE COLOR YELLOW; URINE NITRITE NEG (NEG); URINE PH 6.5 (4.5-7.5); URINE SPECIFIC GRAVITY 1.014 (1.000-1.030); UROBILINOGEN NEG (NEG); ZZUR CULT IF INDIC CLEAN CATCH NO
--- NOTE | 2017-03-15 09:05 | History and Physical ---
History & Physical Date & Time of Service: Mar 15, 2017 at 09:02 Chief Complaint: High Bp Primary Care Physician: Yashira Arizmendi C.R.N.P. History of Present Illness 52 y/o F with recurrent admissions in past and h/o marijuana dependence here with c/o having intractable nausea and vomiting. She had symptoms on all day and she got better by evening. Next day she was well. This morning she restarted to have nausea and vomiting and presented to the ED. She wasn't able to keep her blood pressure medication down due to vomiting. In the ED she was noted to have very high blood pressure and received IV hydralazine and IV labetolol along with IV zofran which seemed to have helped the blood pressure. The patient reports that she has been smoking marijuana, but does not believe that this is the cause of her symptoms. Past Medical/Surgical History Medical Problems: (1) Atherosclerosis Nos (2) Hypertension Nos High Cholesterol Marijuana Dependence h/o Elevated troponin and hypertensive urgencies Family History Cancer Diabetes mellitus Heart disease Hypertension Lung disease Social History Smoking Status: Never Smoker Drug Use: marijuana Marital Status: Housing status: lives with family Occupational Status: employed Immunizations History of Influenza Vaccine: Unknown History of Tetanus Vaccine?: Unknown History of Pneumococcal: Unknown History of Hepatitis B Vaccine: Unknown Multi-Drug Resistant Organisms History of MDRO: No Allergies Coded Allergies: Doxycycline (Verified Allergy, Unknown, rash, 03/15/17) Iodinated Diagnostic Agents (Verified Allergy, Unknown, `, 03/15/17) Latex1 -Allergic Contact Dermititis (Verified Allergy, Unknown, RASH, 03/15) Meperidine (Verified Allergy, Unknown, HIVES, VOMITING, 03/15/17) Prochlorperazine (Verified Allergy, Unknown, ., 03/15/17) [place] (Verified Allergy, Unknown, HIVES, 03/15/17) Tomato (Verified Allergy, Unknown, HIVES, 03/15/17) Uncoded Allergies: Hernandez Beans (Allergy, Unknown, HIVES, 11/27/16) Home Medications Scheduled Aspirin (Aspirin Chewable), 81 MG PO DAILY Atorvastatin (Lipitor), 20 MG PO HS Hydrochlorothiazide (Hydrochlorothiazide), 12.5 MG PO BID Lisinopril (Lisinopril), 10 MG PO BID Metoprolol Tartrate (Metoprolol Tartrate), 100 MG PO BID Multivitamin (Multivitamin), 1 TAB PO DAILY Review of Systems Constitutional: No fever Eyes: No worsening of vision ENT: No hearing loss Respiratory: No cough, No sputum, No wheezing Cardiovascular: No chest pain, No orthopnea, No PND Abdomen: + nausea, + vomiting, No pain Musculoskeletal: No joint pain Genitourinary - Female: No dysuria Neurologic: No memory loss, No paralysis, No weakness Psychiatric: No depression symptoms Hematologic / Lymphatic: No abnormal bleeding/bruising Integumentary: No rash Allergic / Immunologic: No environmental allergies Physical Exam Vital Signs Date Time Temp Pulse Resp B/P (MAP) Pulse Ox O2 Delivery O2 Flow Rate FiO2 03/15/17 08:31 174/120 03/15/17 08:29 71 15 99 03/15/17 08:20 165/105 03/15/17 08:19 /178 03/15/17 08:16 /178 03/15/17 08:14 76 21 03/15/17 07:59 79 18 03/15/17 07:44 62 18 03/15/17 07:39 73 17 03/15/17 07:31 197/96 03/15/17 07:19 97 Room Air 03/15/17 07:18 53 03/15/17 07:10 195/124 03/15/17 06:43 36.6 66 18 202/113 97 Room Air General Appearance: + mild distress Head: normocephalic, atraumatic Eyes: normal inspection, PERRL, EOMI ENT: normal ENT inspection, hearing grossly normal, TMs normal, pharynx normal Neck: supple, no adenopathy, thyroid normal, no JVD Respiratory/Chest: chest non-tender, lungs clear, normal breath sounds, no respiratory distress, no accessory muscle use Cardiovascular: regular rate, rhythm, no edema, no gallop, no JVD, no murmur, normal peripheral pulses Abdomen/GI: normal bowel sounds, non tender, soft, no organomegaly, no pulsatile mass Back: normal inspection, no CVA tenderness Extremities/Musculoskelatal: normal inspection, no calf tenderness, normal capillary refill, no pedal edema Neurologic/Psych: no motor/sensory deficits, alert, normal mood/affect, normal reflexes Skin: normal color Diagnostics Laboratory Results Results Past 24 Hours Test 03/15/17 07:06 03/15/17 08:13 03/15/17 08:40 Range/Units White Blood Count 10.84 4.8-10.8 K/uL Red Blood Count 4.39 4.2-5.4 M/uL Hemoglobin 13.7 12.0-16.0 g/dL Hematocrit 39.9 37-47 % Mean Corpuscular Volume 90.9 80-100 fL Mean Corpuscular Hemoglobin 31.2 25-34 pg Mean Corpuscular Hemoglobin Concent 34.3 32-36 g/dl Platelet Count 408 130-400 K/uL Mean Platelet Volume 9.8 7.4-10.4 fL Neutrophils (%) (Auto) 74.0 % Lymphocytes (%) (Auto) 19.5 % Monocytes (%) (Auto) 4.5 % Eosinophils (%) (Auto) 1.0 % Basophils (%) (Auto) 0.6 % Neutrophils # (Auto) 8.03 1.4-6.5 K/uL Lymphocytes # (Auto) 2.11 1.2-3.4 K/uL Monocytes # (Auto) 0.49 0.11-0.59 K/uL Eosinophils # (Auto) 0.11 0-0.5 K/uL Basophils # (Auto) 0.06 0-0.2 K/uL RDW Standard Deviation 41.9 36.4-46.3 fL RDW Coefficient of Variation 12.7 11.5-14.5 % Immature Granulocyte % (Auto) 0.4 % Immature Granulocyte # (Auto) 0.04 0.00-0.02 K/uL Sodium Level 133 136-145 mmol/L Potassium Level 3.0 3.5-5.1 mmol/L Chloride Level 96 98-107 mmol/L Carbon Dioxide Level 28 21-32 mmol/L Anion Gap 9.0 3-11 mmol/L Blood Urea Nitrogen 30 7-18 mg/dl Creatinine 1.40 0.60-1.20 mg/dl Est Creatinine Clear Calc Drug Dose 45.6 ml/min Estimated GFR () 50.3 Estimated GFR (Non- 43.4 BUN/Creatinine Ratio 21.4 10-20 Random Glucose 139 70-99 mg/dl Calcium Level 10.0 8.5-10.1 mg/dl Total Bilirubin 0.4 0.2-1 mg/dl Direct Bilirubin < 0.1 0-0.2 mg/dl Aspartate Amino Transf (AST/SGOT) 16 15-37 U/L Alanine Aminotransferase (ALT/SGPT) 26 12-78 U/L Alkaline Phosphatase 75 45-117 U/L Total Creatine Kinase 126 26-192 U/L Creatine Kinase MB 2.2 0.5-3.6 ng/ml Creatine Kinase MB Ratio 1.7 0-3.0 Troponin I 0.124 0-0.045 ng/ml Total Protein 8.0 6.4-8.2 gm/dl Albumin 4.1 3.4-5.0 gm/dl Lipase 156 73-393 U/L Thyroid Stimulating Hormone (TSH) 1.630 0.300-4.500 uIu/ml Free Thyroxine 1.09 0.80-1.60 ng/dl CXR normal Impression Assessment and Plan 52 y/o F with h/o marijuana dependence here with intractable nausea vomiting and severely elevated blood pressure and positive troponin in ED Elevated troponin - Likely sec to severely elevated blood pressure. Has had similar presentation in past. Will control BP. follow troponine. Will consult cardiology for opinion Hypertensive urgency - Resume home meds. prn IV hydralazine/labetolol. BP elevation sec to not able to keep her home meds down Nausea/vomiting - sec to marijuana dependence. IV zofran, keep NPO except meds until symptoms improve HypoK and HypoNa - sec to vomiting. replace and follow Marijuana use - counselled on quitting. Doesn't feel presenting symptoms sec to it. Urine tox pending Lovenox, full code
[2017-03-15 09:25] LABS: BENZODIAZEPINE, URINE NEG (NEG); COCAINE,URINE NEG (NEG); PHENCYCLIDINE, URINE NEG (NEG)
[2017-03-15] MEDS ORDERED: ONDANSETRON INJ 2 MG/ML 2 ML VIAL IV PRN (09:30)
[2017-03-15] MEDS ORDERED: ONDANSETRON INJ 2 MG/ML 2 ML VIAL IV ONE (09:45)
[2017-03-15] MEDS: D5NSS + 20MEQ KCL 1,000 ML IV SCH ×2 (11:21→18:32)
[2017-03-15] MEDS: METOPROLOL TARTRATE 100 MG TAB PO SCH ×2 (11:53→19:37)
[2017-03-15] MEDS: ASPIRIN 81 MG ECTAB PO SCH (11:53)
[2017-03-15] MEDS: LISINOPRIL 10 MG TAB PO SCH ×2 (11:53→19:38)
--- NOTE | 2017-03-15 12:43 | CARDIOLOGY CONSULTATION ---
DATE OF CONSULTATION: 03/15/2017 DATE OF CONSULTATION: 03/15/2017 PERTINENT HISTORY: Mrs. Velasquez is a 52-year-old white female admitted earlier today with hypertensive urgency and a mildly elevated troponin. This consultation was ordered to assist in her cardiac management. Of note, the patient follows with Dr. Pako Holland in the outpatient setting. The patient was in her usual state of health until when she began to note abdominal discomfort and nausea. Her symptoms improved Friday and she was able to work. However, she awoke at 3:00 this morning with nausea and intractable vomiting. She checked her blood pressure and noted to be significantly elevated; therefore, proceeded to the Emergency Room for further care. On arrival here, her initial blood pressure was 202/113. She received intravenous Zofran, hydralazine, and labetalol with improvement in her symptoms and blood pressure. At no time has the patient experienced chest discomfort or dyspnea. She further denies syncope, presyncope, PND, orthopnea, palpitations, lower extremity edema, and claudication. The patient has had 3 other admissions this year with similar presentation to this hospitalization. The patient does carry a history of nonobstructive coronary artery disease. She underwent cardiac catheterization June 2014, which revealed a 30% mid right coronary stenosis, and 30% proximal LAD stenosis. Currently, the patient is resting comfortably in bed without complaints. PAST MEDICAL HISTORY: 1. Nonobstructive coronary artery disease -- June 2014 -- see above. 2. Hypertension. 3. Mild left ventricle hypertrophy. 4. Normal stress echocardiogram -- 11/28/2016. 5. Hypercholesterolemia. 6. Possible multiple sclerosis. 7. Diverticulosis. 8. Anxiety. 9. Hysterectomy. 10. Inguinal hernia repair. USUAL OUTPATIENT MEDICATIONS: 1. Metoprolol tartrate 100 mg b.i.d. 2. Lisinopril 10 mg b.i.d. 3. Hydrochlorothiazide 12.5 mg b.i.d. 4. Aspirin 81 mg per day. 5. Lipitor 20 mg at bedtime. 6. Multivitamin daily. CURRENT MEDICATIONS: 1. Lovenox 30 mg IV daily. 2. Please see outpatient list. ALLERGIES: 1. DOXYCYCLINE. 2. CONTRAST DYE. 3. LATEX. SOCIAL HISTORY: The patient is and lives with her . Quit tobacco use several months ago. Had smoked 1/2 pack of cigarettes daily for many years. Alcohol use is occasional. Does admit to use of marijuana. FAMILY HISTORY: Father at the age of 74 from metastatic carcinoma. Mother last month at the age of 74 because of a complicated attempt to repair thoracic aortic aneurysm. She is not certain as to her siblings history as they do not speak. REVIEW OF SYSTEMS: A 10-point review of systems was negative except for that described above. PHYSICAL EXAMINATION: GENERAL: This is a well-developed, well-nourished white female in no acute distress. VITAL SIGNS: Blood pressure is 170/100 with a regular pulse of 80. Respiratory rate is 16. The patient is afebrile at 36.8 degrees Celsius. Saturations 96% on room air. HEAD, EYES, EARS, NOSE, AND THROAT: Negative. NECK: Supple with full carotid upstrokes. There are no carotid bruits. Jugular venous pressure is flat at 90 degrees. There is no thyromegaly. CARDIOVASCULAR: Reveals a regular rhythm with a normal S1 and S2. No S3, S4, or murmurs are noted. LUNGS: Clear without rales, rhonchi, or wheezes. ABDOMEN: Soft and nontender without bruits. EXTREMITIES: Reveal intact radial artery pulses bilaterally. There is no peripheral edema. LABORATORY DATA: CBC notes hemoglobin 13.7, hematocrit 39.9, white count 10.8, platelet count 408,000. Electrolytes note a sodium of 133, potassium 3.0, chloride 96, bicarb 28, BUN 30, creatinine 1.4, glucose 139. Troponin I level is mildly elevated at 0.124. CK is normal at 126 with an MB fraction of 2.2. TSH level is normal at 1.63. Lipase is normal at 156. EKG notes sinus bradycardia and prominent T-waves in the anterior distribution. However, this is unchanged from the tracing done 01/14/2017. Chest x-ray shows no acute disease. IMPRESSION: Mrs. Velasquez was admitted with accelerated hypertension. She had associated vomiting and has been unable to take her medications. This has been the typical presentation at least 3 other times this year. Her mildly elevated troponin is likely secondary to a supply demand mismatch realizing her significant hypertension at the time of presentation in the face of her left ventricular hypertrophy. I agree with use of intravenous antihypertensive agents as needed to better control blood pressure. PLAN: 1. Agree with resuming usual outpatient medications. 2. Intravenous hydralazine and/or labetalol as needed. 3. Further recommendations depending on her clinical course.
[2017-03-15] MEDS ORDERED: LABETALOL HCL IV 5 MG/ML 20ML IV PRN (13:30)
[2017-03-15] MEDS ORDERED: HydrALAZINE HCL 20 MG/ML VIAL IV. PRN (13:30)
[2017-03-15] MEDS: HYDROCHLOROTHIAZIDE 25 MG TAB PO SCH (16:54)
[2017-03-15] MEDS ORDERED: NURSING VERBAL MED ORDER ONE (17:00)
[2017-03-15] MEDS ORDERED: ENOXAPARIN 30 MG/0.3 ML SYR SC SCH (21:00)
[2017-03-15] MEDS ORDERED: ATORVASTATIN 20 MG TAB PO SCH (21:00)
[2017-03-16 00:30] VITALS: BP 97/53
[2017-03-16] MEDS: D5NSS + 20MEQ KCL 1,000 ML IV SCH (03:30)
[2017-03-16 04:15] VITALS: BP 109/73; PULSE 67; TEMP 36.4; O2SAT 95
[2017-03-16 07:52] VITALS: BP 124/80; PULSE 60; TEMP 36.8; O2SAT 98
[2017-03-16] MEDS ORDERED: MULTIVITAMIN TAB PO SCH (09:00)
[2017-03-16 09:03] LABS: BASO % 0.5 %; BASO ABS # 0.04 K/uL (0-0.2); COMPLETE YES; HEMATOCRIT 33.9 % (37-47); IG% 0.1 %; LYMPH % 49.6 %; LYMPH ABS # 4.08 K/uL (1.2-3.4); MEAN CELL VOLUME 92.4 fL (80-100); MEAN CORPUSCULAR HEMOGLOBIN 31.6 pg (25-34); MEAN CORPUSCULAR HGB CONC 34.2 g/dl (32-36); MEAN PLATELET VOLUME 9.6 fL (7.4-10.4); NEUT % 42.8 %; PLATELET COUNT 310 K/uL (130-400); RED BLOOD COUNT 3.67 M/uL (4.2-5.4); WHITE BLOOD COUNT 8.23 K/uL (4.8-10.8)
[2017-03-16] MEDS: LISINOPRIL 10 MG TAB PO SCH (09:18)
[2017-03-16] MEDS: HYDROCHLOROTHIAZIDE 25 MG TAB PO SCH (09:20)
[2017-03-16] MEDS: ASPIRIN 81 MG ECTAB PO SCH (09:20)
[2017-03-16] MEDS: METOPROLOL TARTRATE 100 MG TAB PO SCH (09:20)
[2017-03-16 09:30] LABS: BUN/CREATININE RATIO 12.7 (10-20); CREATININE 0.82 mg/dl (0.60-1.20); POTASSIUM 3.1 mmol/L (3.5-5.1)
--- NOTE | 2017-03-16 09:36 | Discharge Instructions ---
Discharge Instructions Date of Service Mar 16, 2017. Admission Reason for Admission: Elevated Troponin I Level;Malignant Essential Discharge Discharge Diagnosis / Problem: Hypertensive Urgency Discharge Goals Goal(s): Improve disease control Activity Recommendations Activity Limitations: resume your previous activity . Instructions / Follow-Up Instructions / Follow-Up Follow up with family physician in one week Refrain from using Marijuana Current Hospital Diet Patient's current hospital diet: Low Sodium Diet (2gm Na) Discharge Diet Recommended Diet: AHA Diet (Heart Healthy) Pending Studies Studies pending at discharge: no Laboratory Results Lipid Panel Test 02/24/17 08:46 Range/Units Triglycerides Level 71 0-150 mg/dl Cholesterol Level 171 0-200 mg/dl HDL Cholesterol 61 mg/dl Cholesterol/HDL Ratio 2.8 LDL Cholesterol, Calculated 96 mg/dl Medical Emergencies . Who to Call and When: Medical Emergencies: If at any time you feel your situation is an emergency, please call 911 immediately. . Non-Emergent Contact Non-Emergency issues call your: Primary Care Provider . . "Provider Documentation" section prepared by Alexa Bernal. . VTE Core Measure Inpt VTE Proph given/why not?: Enoxaparin (Lovenox)SQ
--- NOTE | 2017-03-16 09:44 | Discharge Summary ---
Discharge Summary Date of Service Mar 16, 2017. Discharge Summary Admission Date: Mar 15, 2017 at 09:33 Discharge Date: Mar 16, 2017 Discharge Disposition: Home Principal Diagnosis: Hypertensive Urgency Immunizations: Have You Had Influenza Vaccine: Unknown History of Tetanus Vaccine?: Unknown History of Pneumococcal: Unknown History of Hepatitis B Vaccine: Unknown Medication Reconciliation Continued Medications: Aspirin (Aspirin Chewable) 81 Mg Chew 81 MG PO DAILY Atorvastatin (Lipitor) 20 Mg Tab 20 MG PO HS, TAB Hydrochlorothiazide (Hydrochlorothiazide) 25 Mg Tab 12.5 MG PO BID for 30 Days, #60 TAB Lisinopril (Lisinopril) 10 Mg Tab 10 MG PO BID for 30 Days, #30 TAB Metoprolol Tartrate (Metoprolol Tartrate) 100 Mg Tab 100 MG PO BID for 30 Days, #60 TAB Take 1 tablet by mouth twice a day. Multivitamin (Multivitamin) Tab 1 TAB PO DAILY, TAB Discharge Exam Feeling much better today Ate breakfast. No nausea, vomiting Slept well as well. Review of Systems: Constitutional: No fever Respiratory: No shortness of breath Cardiovascular: No chest pain Abdomen: No pain, No nausea, No vomiting Genitourinary - Female: No dysuria Endocrine: + problem reported (c/o feeling tired and so needs 3 cups of coffee and one pepsi daily) Physical Exam: General Appearance: no apparent distress Neck: supple Respiratory/Chest: lungs clear, no respiratory distress Cardiovascular: regular rate, rhythm Abdomen / GI: normal bowel sounds, non tender, soft 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: alert, oriented x 3 Skin: warm/dry Hospital Course 52 y/o F with h/o marijuana dependence here with intractable nausea vomiting and severely elevated blood pressure and positive troponin in ED Hypertensive urgency - Treated with IV hydralazine/labetolol in ED. BP slowly dropped back to normal with home medication. Nausea/vomiting - sec to marijuana dependence. Kept NPO and Received IV zofran. Diet advanced and tolerated well. Elevated troponin - Likely sec to severely elevated blood pressure. Has had similar presentation in past. Cardiology consulted and recommended BP control. HypoK and HypoNa - Improved with resolution of vomiting and replacing K Marijuana use - counselled on quitting. Doesn't feel presenting symptoms sec to it. Urine tox positive only for marijuana Snoring and excessive caffiene intake for day time sleepiness - Consider sleep study as outpatient Elevated cortisol level - Likely stress reaction. Could consider dexamethasone suppression test as outpatient. Total Time Spent: Greater than 30 minutes (35) This includes examination of the patient, discharge planning, medication reconciliation, and communication with other providers. Discharge Instructions Please refer to the electronic Patient Visit Report (Discharge Instructions) for additional information. Additional Copies To Yashira Arizmendi C.R.N.P.
[2017-03-16] MEDS ORDERED: POTASSIUM CHLORIDE 10 MEQ TABCR PO ONE (10:00)
[2017-03-16 10:39] VITALS: BP 124/80; PULSE 60; TEMP 36.8; O2SAT 98
--- NOTE | 2017-03-16 11:00 | CARDIOLOGY PROGRESS NOTE ---
DATE: 03/16/2017 SUBJECTIVE: Mrs. Velasquez is resting comfortably in bed without complaints of chest pain or dyspnea. She is anxious for hospital discharge. OBJECTIVE: VITAL SIGNS: Blood pressure 124/80 with a regular pulse of 60. Respiratory rate is 18. The patient is afebrile at 36.8 degrees Celsius. Saturation is 90% on room air. NECK: Supple with full carotid upstrokes. There are no carotid bruits. Jugular venous pressure is flat at 90 degrees. There is no thyromegaly. CARDIOVASCULAR: Reveals a regular rhythm with normal S1 and S2. Heart sounds are distant. No obvious murmurs. LUNGS: Clear without rales, rhonchi or wheeze. ABDOMEN: Soft, nontender without bruits. EXTREMITIES: Reveal intact radial artery pulses bilaterally. There is no peripheral edema. DATA: CBC notes hemoglobin of 11.6, hematocrit 33.9, white count 8.2, platelet count 310,000. Electrolytes note sodium of 135, potassium 3.1, chloride 101, bicarb 26, BUN 10, creatinine 0.82, glucose 123. Troponin I level is down to 0.089. monitoring manager is benign. IMPRESSION AND PLAN: 1. Accelerated hypertension -- patient's blood pressure now well controlled on her current medical regimen. 2. Elevated troponin -- likely a supply-demand phenomenon realizing her elevated blood pressure at the time of presentation and her known left ventricular hypertrophy. 3. Negative stress echocardiogram -- 11/28/2016. 4. Mild left ventricular hypertrophy. 5. Hypercholesterolemia. 6. Possible multiple sclerosis. 7. Disposition -- stable for hospital discharge from a cardiac perspective.
[2017-04-26] MEDS ORDERED: [UNRECOGNIZED DRUG - CODE] OTB (07:48)
[2017-04-26] MEDS ORDERED: CLON0.1T12 PO (07:48)
[2017-05-08] MEDS ORDERED: CZR50 PO (13:17)
== END 2017-03-16 11:10 | disposition home or self-care (01) | DRG 305 ==
LOC: C.EDB 06:40 → C.2T 09:33 → ENRESERV 10:13
PROVIDERS: ADMIT Family Medicine; ATTEND Family Medicine
DX: I16.0 Hypertensive urgency (principal); E87.1 Hypo-osmolality and hyponatremia; I11.9 Hypertensive heart disease without heart failure; R11.2 Nausea with vomiting, unspecified; T40.7X2A Poisoning by cannabis (derivatives), intentional self-harm, initial encounter; F12.20 Cannabis dependence, uncomplicated; R79.89 Other specified abnormal findings of blood chemistry; E87.6 Hypokalemia; I25.10 Atherosclerotic heart disease of native coronary artery without angina pectoris; G35 Multiple sclerosis; E78.00 Pure hypercholesterolemia, unspecified; R06.83 Snoring; F41.9 Anxiety disorder, unspecified; F15.90 Other stimulant use, unspecified, uncomplicated; F17.210 Nicotine dependence, cigarettes, uncomplicated; Z79.82 Long term (current) use of aspirin; Z79.899 Other long term (current) drug therapy

== ENCOUNTER 2017-04-20 08:24 | Emergency (ER) | payer OTHER ==
[~2017-04-20] VITALS: Ht 170.2 cm; Wt 60.0 kg
[2017-04-20 08:28] VITALS: TEMP 36.5; Ht 170.2 cm; Wt 60.0 kg
[2017-04-20] MEDS ORDERED: SODIUM CHLORIDE 0.9% 1000ML 500 ML IV STA (08:45)
[2017-04-20] MEDS ORDERED: ONDANSETRON INJ 2 MG/ML 2 ML VIAL IV STA ×2 (08:45→11:24)
[2017-04-20] MEDS ORDERED: SODIUM CHLORIDE 0.9% 1000ML 1,000 ML IV STA (08:45)
[2017-04-20] MEDS ORDERED: FAMOTIDINE 20MG/102 ML D5W IV STA (08:45)
[2017-04-20 09:04] LABS: BASO % 0.5 %; BASO ABS # 0.07 K/uL (0-0.2); COMPLETE YES; EOS % 1.6 %; IG% 0.4 %; LYMPH % 20.4 %; LYMPH ABS # 2.74 K/uL (1.2-3.4); MEAN CORPUSCULAR HEMOGLOBIN 32.2 pg (25-34); MEAN PLATELET VOLUME 9.8 fL (7.4-10.4); MONO % 4.4 %; NEUT % 72.7 %; PLATELET COUNT 403 K/uL (130-400); RED BLOOD COUNT 4.13 M/uL (4.2-5.4)
--- NOTE | 2017-04-20 09:04 | DIAGNOSTIC IMAGING REPORT ---
CHEST ONE VIEW PORTABLE CLINICAL HISTORY: 52 years-old Female presenting with CHEST PAIN, SOB, N/V. TECHNIQUE: Portable upright AP view of the chest was obtained. COMPARISON: 03/15/2017. FINDINGS: Cardiomediastinal silhouette normal. Lungs and pleural spaces clear. Deformity of the right lateral seventh rib from old fracture. Upper abdomen normal. IMPRESSION: 1. No acute cardiopulmonary disease. Electronically signed by: Aiden Carlton M.D. 04/20/2017 9:03 AM Dictated Date/Time: 04/20/2017 9:02 AM
[2017-04-20 09:12] LABS: INR 0.9 (0.9-1.1); PROTHROMBIN TIME (PATIENT) 9.7 SECONDS (9.0-12.0)
[2017-04-20 09:20] LABS: BUN/CREATININE RATIO 20.2 (10-20); CALCIUM 10.2 mg/dl (8.5-10.1); CREATININE 1.3 mg/dl (0.60-1.20); POTASSIUM 3.5 mmol/L (3.5-5.1)
[2017-04-20 09:24] LABS: ALB/GLOB RATIO 1.2 (0.9-2); CKMB/CK RATIO 1.6 (0-3.0)
[2017-04-20] MEDS ORDERED: LABETALOL HCL IV 5 MG/ML 20ML IV STA ×2 (10:10→12:50)
[2017-04-20 12:00] LABS: URINE APPEARANCE CLEAR (CLEAR); URINE BILIRUBIN NEG (NEG); URINE COLOR YELLOW; URINE NITRITE NEG (NEG); URINE SPECIFIC GRAVITY 1.015 (1.000-1.030); UROBILINOGEN NEG (NEG)
[2017-04-20 12:01] LABS: MANUAL MICROSCOPIC REQUIRED? NO; REVIEW REQ? NO
[2017-04-20] MEDS ORDERED: DiphenhydrAMINE HCL 50 MG/ML VIAL IV STA (12:10)
[2017-04-20] MEDS ORDERED: METOCLOPRAMIDE HCL INJ 5 MG/ML 2 ML VIAL IV STA (12:10)
[2017-04-20 12:44] LABS: BENZODIAZEPINE, URINE NEG (NEG); COCAINE,URINE NEG (NEG); PHENCYCLIDINE, URINE NEG (NEG)
[2017-04-20] MEDS ORDERED: ONDA4TAB10 SL (15:04)
--- NOTE | 2017-04-20 15:05 | EMERGENCY ROOM VISIT NOTE ---
History First contact with patient: 08:32 Chief Complaint: CHEST PAIN Stated Complaint: CHEST PAINS, SOB Nursing Triage Summary: Patient c/o burning in epigastric area with nausea and vomiting. Patient having "cold sweats" with the nausea History of Present Illness Patient is a 52-year-old white female with past medical history significant for poorly controlled hypertension, dyslipidemia, coronary artery disease and history of NJ presents to the emergency department for evaluation of the abrupt onset of chest pain, nausea and heartburn this morning. Patient reports that she has been feeling well and was in her usual state of health when she woke today. She reports that she has been taking her medications as prescribed and has not missed any doses. She denies any marijuana in the last several weeks. She states that she felt fine when she woke up this morning, and went to work. She took her morning medications at 0600, and had coffee to drink. She did not eat anything this moringl. A little after 8:00, she reported that she felt queasy, ran to the bathroom where she vomited twice. She vomited up the coffee that she had drank. She then developed some midsternal chest tightness, shortness of breath and heartburn which she describes as a midsternal burning. She denies any radiation of the chest pain. The heartburn and nausea comes in waves. She rates her discomfort a 4/10. There is no radiation of her discomfort or pressure through to her back, her neck or her arm. She denies any abdominal pain. No urinary symptoms. No diarrhea or stool changes. There has been no hematemesis. Review of Systems Review of systems as per HPI. All other systems reviewed were negative. 10 systems reviewed. Past Medical/Surgical History Medical Problems: (1) Atherosclerosis Nos (2) Chronic hypertension (3) Elevated troponin I level (4) Hypertension Nos (5) HYPERTENSIVE URGENCY (6) Hypertensive urgency, malignant (7) Hypokalemia (8) Intractable nausea and vomiting (9) Malignant essential hypertension (10) Marijuana dependence (11) Nausea & vomiting (12) Prolonged QT interval (13) Renal artery stenosis (14) Uncontrolled hypertension Electronic medical records are reviewed and summarized as above/below. See Problem List. Family History Cancer Diabetes mellitus Heart disease Hypertension Lung disease Social History Smoking Status: Never Smoker Alcohol Use: occasionally Drug Use: marijuana Marital Status: Housing Status: lives with family Occupation Status: employed Current/Historical Medications Scheduled Aspirin (Aspirin Chewable), 81 MG PO DAILY Atorvastatin (Lipitor), 20 MG PO HS Hydrochlorothiazide (Hydrochlorothiazide), 12.5 MG PO BID Lisinopril (Lisinopril), 10 MG PO BID Metoprolol Tartrate (Metoprolol Tartrate), 100 MG PO BID Multivitamin (Multivitamin), 1 TAB PO DAILY Scheduled PRN Ondasetron Odt (Zofran Odt), 4 MG SL Q6H PRN for Nausea or Vomiting Physical Exam Vital Signs Date Time Temp Pulse Resp B/P (MAP) Pulse Ox O2 Delivery O2 Flow Rate FiO2 04/20/17 15:29 77 18 181/102 99 04/20/17 13:47 80 04/20/17 13:36 81 20 99 04/20/17 13:31 163/117 04/20/17 13:29 87 16 99 Room Air 04/20/17 13:26 168/113 04/20/17 13:25 81 20 199/109 99 Room Air 04/20/17 13:24 87 17 98 04/20/17 13:22 199/109 04/20/17 13:19 77 15 98 04/20/17 13:17 203/114 04/20/17 13:17 70 20 203/114 99 Room Air 04/20/17 13:14 76 20 98 04/20/17 13:09 77 19 97 04/20/17 13:04 75 12 99 04/20/17 12:59 71 19 97 04/20/17 12:54 76 19 99 Room Air 04/20/17 12:48 185/111 04/20/17 12:24 66 17 99 04/20/17 11:54 78 9 98 04/20/17 11:40 71 18 177/115 98 Room Air 04/20/17 11:38 177/115 04/20/17 11:24 74 17 99 04/20/17 11:04 167/98 04/20/17 10:54 64 12 98 04/20/17 10:50 78 18 149/109 98 Room Air 04/20/17 10:49 149/109 04/20/17 10:36 71 14 189/113 98 Room Air 04/20/17 10:35 189/113 04/20/17 10:25 194/114 04/20/17 10:24 55 12 99 04/20/17 10:10 57 18 199/115 98 Room Air 04/20/17 10:08 199/115 04/20/17 09:54 70 18 96 04/20/17 09:24 63 14 99 04/20/17 08:54 62 11 98 04/20/17 08:43 63 04/20/17 08:40 97 Room Air 04/20/17 08:40 174/106 04/20/17 08:28 36.5 66 18 172/107 100 Room Air Physical Exam CONSTITUTIONAL: Patient is a slightly anxious, diaphoretic 52-year-old white female who is awake and alert and in mild distress due to her stated complaint. Blood pressure 172/107, pulse rate 66 and regular, O2 sat 100% on room air. EYES: Pupils equal, round, reactive to light and accommodation. EOMs intact without nystagmus. Sclera are anicteric. ENT: Tympanic membranes intact, with normal landmarks. External canals are clear. Oral and nasopharynx are clear. Mucous membranes are moist, no lesions , tongue and gums appear normal. NECK: No bruits auscultated. Supple without lymphadenopathy. No thyromegaly. No meningeal signs. Full active range of motion without discomfort. CARDIOVASCULAR: Regular rate and rhythm, with normal S1 and S2, no murmur or gallop or rub is heard. No carotid bruits auscultated. No JVD. Peripheral pulses easily palpable. RESPIRATORY: Breath sounds equal and clear to auscultation without wheezes, rales, or rhonchi heard. Full and equal chest expansion without accessory muscle use or retractions. ABDOMEN: Bowel sounds are present. Abdomen is soft, nontender and nondistended. No guarding or rebound. INTEGUMENTARY: No lesions or rash, normal skin turgor. LYMPH: No lymphadenopathy. Medical Decision & Procedures ER Provider Diagnostic Interpretation: CHEST ONE VIEW PORTABLE CLINICAL HISTORY: 52 years-old Female presenting with CHEST PAIN, SOB, N/V. TECHNIQUE: Portable upright AP view of the chest was obtained. COMPARISON: 03/15/2017. FINDINGS: Cardiomediastinal silhouette normal. Lungs and pleural spaces clear. Deformity of the right lateral seventh rib from old fracture. Upper abdomen normal. IMPRESSION: 1. No acute cardiopulmonary disease. Laboratory Results 04/20/17 08:46 Red Blood Count 4.13, Mean Corpuscular Volume 92.0, Mean Corpuscular Hemoglobin 32.2, Mean Corpuscular Hemoglobin Concent 35.0, Mean Platelet Volume 9.8, Neutrophils (%) (Auto) 72.7, Lymphocytes (%) (Auto) 20.4, Monocytes (%) (Auto) 4.4, Eosinophils (%) (Auto) 1.6, Basophils (%) (Auto) 0.5, Neutrophils # (Auto) 9.73, Lymphocytes # (Auto) 2.74, Monocytes # (Auto) 0.59, Eosinophils # (Auto) 0.22, Basophils # (Auto) 0.07 04/20/17 08:46 Test 04/20/17 00:00 04/20/17 08:46 04/20/17 10:39 04/20/17 11:40 Urine Opiates Screen NEG (NEG) Urine Methadone, Qualitative NEG (NEG) Urine Barbiturates NEG (NEG) Urine Phencyclidine (PCP) Level NEG (NEG) Ur Amphetamine/Methamphetamine NEG (NEG) MDMA (Ecstasy) Screen NEG (NEG) Urine Benzodiazepines Screen NEG (NEG) Urine Cocaine Metabolite NEG (NEG) Urine Marijuana (THC) POS (NEG) White Blood Count 13.40 K/uL (4.8-10.8) Red Blood Count 4.13 M/uL (4.2-5.4) Hemoglobin 13.3 g/dL (12.0-16.0) Hematocrit 38.0 % (37-47) Mean Corpuscular Volume 92.0 fL (80-100) Mean Corpuscular Hemoglobin 32.2 pg (25-34) Mean Corpuscular Hemoglobin Concent 35.0 g/dl (32-36) Platelet Count 403 K/uL (130-400) Mean Platelet Volume 9.8 fL (7.4-10.4) Neutrophils (%) (Auto) 72.7 % Lymphocytes (%) (Auto) 20.4 % Monocytes (%) (Auto) 4.4 % Eosinophils (%) (Auto) 1.6 % Basophils (%) (Auto) 0.5 % Neutrophils # (Auto) 9.73 K/uL (1.4-6.5) Lymphocytes # (Auto) 2.74 K/uL (1.2-3.4) Monocytes # (Auto) 0.59 K/uL (0.11-0.59) Eosinophils # (Auto) 0.22 K/uL (0-0.5) Basophils # (Auto) 0.07 K/uL (0-0.2) RDW Standard Deviation 43.2 fL (36.4-46.3) RDW Coefficient of Variation 12.8 % (11.5-14.5) Immature Granulocyte % (Auto) 0.4 % Immature Granulocyte # (Auto) 0.05 K/uL (0.00-0.02) Prothrombin Time 9.7 SECONDS (9.0-12.0) Prothromb Time International Ratio 0.9 (0.9-1.1) Activated Partial Thromboplast Time 25.7 SECONDS (21.0-31.0) Partial Thromboplastin Ratio 1.0 Anion Gap 7.0 mmol/L (3-11) Est Creatinine Clear Calc Drug Dose 48.5 ml/min Estimated GFR () 55.0 Estimated GFR (Non- 47.5 BUN/Creatinine Ratio 20.2 (10-20) Calcium Level 10.2 mg/dl (8.5-10.1) Total Bilirubin 0.4 mg/dl (0.2-1) Aspartate Amino Transf (AST/SGOT) 19 U/L (15-37) Alanine Aminotransferase (ALT/SGPT) 19 U/L (12-78) Alkaline Phosphatase 65 U/L (45-117) Total Creatine Kinase 92 U/L (26-192) Creatine Kinase MB 1.5 ng/ml (0.5-3.6) Creatine Kinase MB Ratio 1.6 (0-3.0) Total Protein 7.9 gm/dl (6.4-8.2) Albumin 4.3 gm/dl (3.4-5.0) Globulin 3.6 gm/dl (2.5-4.0) Albumin/Globulin Ratio 1.2 (0.9-2) Lipase 124 U/L (73-393) Bedside Troponin I < 0.030 ng/ml (0-0.045) Urine Color YELLOW Urine Appearance CLEAR (CLEAR) Urine pH 6.0 (4.5-7.5) Urine Specific [place] 1.015 (1.000-1.030) Urine Protein NEG (NEG) Urine Glucose (UA) NEG (NEG) Urine Ketones NEG (NEG) Urine Occult Blood 1+ (NEG) Urine Nitrite NEG (NEG) Urine Bilirubin NEG (NEG) Urine Urobilinogen NEG (NEG) Urine Leukocyte Esterase NEG (NEG) Urine WBC (Auto) 1-5 /hpf (0-5) Urine RBC (Auto) 5-10 /hpf (0-4) Urine Hyaline Casts (Auto) 1-5 /lpf (0-5) Urine Epithelial Cells (Auto) 10-20 /lpf (0-5) Urine Bacteria (Auto) NEG (NEG) Medications Administered Medications (Trade) Dose Ordered Sig/Yiemy Route Start Time Stop Time Status Last Admin Dose Admin Sodium Chloride 500 ml @ 999 mls/hr Q31M STAT IV 04/20/17 08:45 04/20/17 09:15 DC 04/20/17 09:07 999 MLS/HR Sodium Chloride 1,000 ml @ 250 mls/hr Q4H STAT IV 04/20/17 08:45 04/20/17 12:44 DC 04/20/17 09:07 250 MLS/HR Ondansetron HCl (Zofran Inj) 4 mg NOW STAT IV 04/20/17 08:45 04/20/17 08:48 DC 04/20/17 09:07 4 MG Famotidine (Pepcid 20mg/100 ml) 20 mg ONE STAT IV 04/20/17 08:45 04/20/17 08:48 DC 04/20/17 09:07 20 MG Labetalol HCl (Normodyne IV) 20 mg NOW STAT IV 04/20/17 10:10 04/20/17 10:11 DC 04/20/17 10:27 20 MG Ondansetron HCl (Zofran Inj) 4 mg NOW STAT IV 04/20/17 11:24 04/20/17 11:26 DC 04/20/17 11:43 4 MG Metoclopramide HCl (Reglan Inj) 10 mg NOW STAT IV 04/20/17 12:10 04/20/17 12:13 DC 04/20/17 12:45 10 MG Diphenhydramine HCl (Benadryl Inj) 25 mg NOW STAT IV 04/20/17 12:10 04/20/17 12:13 DC 04/20/17 12:44 25 MG Labetalol HCl (Normodyne IV) 20 mg NOW STAT IV 04/20/17 12:50 04/20/17 12:51 DC 04/20/17 13:21 20 MG ECG Indication: chest pain Rate (beats per minute): 64 Rhythm: normal sinus Findings: no acute ischemic change Change: no significant change ED Course The patient was seen and assessed as above. Her old records reviewed. IV lock was initiated and she was hydrated solution. EKG was performed and she was placed on a radiation monitor. She was medicated with Zofran 4 mg IV and Pepcid 20 mg IV. CBC with differential, coags, CMP, lipase, cardiac enzymes and point- of-care troponin were drawn. Laboratory studies noted a white count of 13,400, likely related to the stress of vomiting and deep margin region. H&H is normal. Coags are unremarkable. Electrolytes demonstrated a sodium of 132, potassium 3.5, chloride 97, Robaxin 28, BUN 26 and creatinine slightly bumped at 1.3. LFTs and lipase are within normal limits. Initial troponin is less than 0.030. The patient was reassessed after roughly 1 hour. She had vomited again, but reported complete resolution of her chest pressure and heartburn symptoms. Blood pressure was rechecked by me in the exam room and was 199/115. She complained that she was cold and requested another blanket. She was ordered labetalol 20 mg IV. 90 minute troponin are [id number] troponin was ordered. The patient was reassessed roughly 90 minutes later. She was made aware of the results of her and troponin, which was unchanged. She had vomited again. She was ordered an additional Zofran 4 mg IV. Blood pressure was in the 160s over 90s. She was able to provide a urine sample. She was ambulatory to the bathroom without distress. Urinalysis was sent for microscopy and tox screen. Urine was without indication of infection. Tox screen is positive for marijuana. She was reassessed again, and had vomited again. She was given Benadryl 25 mg and Reglan 10 mg IV. She continued to be hypertensive and was given additional labetalol 20 mg IV. All laboratory and diagnostic imaging studies were discussed with attending physician. She was later reassessed, and reported resolution of her nausea. She had not had any further vomiting and was given oral fluids which she tolerated. Treatment options were discussed with the patient, and her who presented to the bedside. She has complete resolution of her symptoms at this time. She has tolerated oral fluids. I suspect her symptoms are GI in nature. Differential diagnoses entertained included ACS, acute [place], myocarditis, pericarditis, pneumonia, pneumothorax, COPD exacerbation, pancreatitis, gastritis, ulcer disease, infectious versus inflammatory colitis, cyclic vomiting syndrome induced by marijuana use, among others. Despite multiple doses of IV labetalol, the patient remained hypertensive. I did discuss admission to the hospital for her nausea/vomiting and for her accelerated hypertension, however the patient declines. She states that she often becomes hypertensive when she becomes ill with other sicknesses, and has to "ride it out." She was well aware of the signs or symptoms for which she should return to the emergency department for further care and evaluation and she and her both expressed understanding of this. Given that I was discharging her with persistent hypertension, I have asked her to follow-up with her PCP tomorrow and she expressed understanding of this. She was given a small prescription for Zofran that she can use for nausea. Otherwise follow a clear liquid diet and advance as tolerated. Follow up with her PCP tomorrow. Return to the ED for worsening symptoms. Patient expressed understanding of this and was in agreement. She was discharged home with her driving. She is pain-free at discharge, blood pressure was 181/102. Medical Decision See Emergency Department course. Medication Reconcilliation Current Medication List: was personally reviewed by me Blood Pressure Screening Patient's blood pressure: Elevated blood pressure Blood pressure disposition: Elevated BP felt to be situational, Referred to PCP Impression Primary Impression: Nausea and vomiting Additional Impression: Hypertension Departure Information Prescriptions Ondasetron Odt (ZOFRAN ODT) 4 Mg Tab 4 MG SL Q6H Y for Nausea or Vomiting, #10 TAB Prov: Mercy Guillen PA 04/20/17 Referrals Yashira Arizmendi C.R.N.PRoxann (PCP) Patient Instructions My [facility] Additional Instructions DO NOT drive, drink alcohol, operate machinery, or perform dangerous activities today. You were given medications in the ER that can affect your ability to safely function or operate a vehicle. Zofran(odansetron) tablets 4mg: Take one and allow it to dissolve in your mouth every four to six hours as needed for nausea or vomiting. Acetaminophen(Tylenol) may be used for fever or pain. Use 1000mg every six hours as needed. Avoid using more than 4000mg in a 24 hour period. Rest and drink plenty of fluids as tolerated. Slow sips of water or sports drinks are recommended instead of large amounts all at once. Continue current medications. Monitor and record your blood pressure readings. Once your stomach is settled start with a clear liquid diet (jello, soup broth, etc.) and then advance as tolerated. You should avoid full, heavy meals for about 24 hrs from the time your symptoms resolved. Return to the ER for persistent vomiting, fevers, uncontrolled blood pressure, chest pains, difficulty breathing, black or bloody stools, worsening of your condition, or as needed. Follow up with your primary physician on Friday for a recheck of your current condition. Problem Qualifiers
[2017-04-20 15:29] VITALS: BP 181/102; PULSE 77; O2SAT 99
[2017-04-26] MEDS ORDERED: CLON0.1T12 PO (07:48)
[2017-04-26] MEDS ORDERED: [UNRECOGNIZED DRUG - CODE] OTB (07:48)
[2017-05-08] MEDS ORDERED: CZR50 PO (13:17)
== END 2017-04-20 15:34 | disposition home or self-care (01) ==
LOC: C.EDB 08:25
DX: R11.2 Nausea with vomiting, unspecified (principal); I10 Essential (primary) hypertension; E78.5 Hyperlipidemia, unspecified; I25.10 Atherosclerotic heart disease of native coronary artery without angina pectoris; F12.10 Cannabis abuse, uncomplicated; I25.2 Old myocardial infarction; E87.6 Hypokalemia; I70.1 Atherosclerosis of renal artery; Z80.9 Family history of malignant neoplasm, unspecified; Z83.3 Family history of diabetes mellitus; Z82.49 Family history of ischemic heart disease and other diseases of the circulatory system; Z83.6 Family history of other diseases of the respiratory system; Z79.82 Long term (current) use of aspirin; Z79.899 Other long term (current) drug therapy

== ENCOUNTER → 2017-04-28 | Outpatient (CLI) | payer OTHER ==
[~2017-04-28] MED LIST changes: +CLON0.1T12 PO; +CZR50 PO; +HYDR25TA4 PO; +METO100T14 PO; +ONDA4TAB10 SL; +[UNRECOGNIZED DRUG - CODE] OTB
[2017-04-28 12:22] LABS: ALT/SGPT 18 U/L (12-78); BLOOD UREA NITROGEN 15 mg/dl (7-18); BUN/CREATININE RATIO 15.1 (10-20); CALCIUM 9.9 mg/dl (8.5-10.1); CARBON DIOXIDE 27 mmol/L (21-32); CHLORIDE 97 mmol/L (98-107); CREATININE 0.97 mg/dl (0.60-1.20); GLUCOSE 101 mg/dl (70-99); POTASSIUM 3.7 mmol/L (3.5-5.1); SODIUM 132 mmol/L (136-145)
[2017-04-28 12:25] LABS: ALB/GLOB RATIO 1.1 (0.9-2); ALKALINE PHOSPHATASE 67 U/L (45-117); AST/SGOT 16 U/L (15-37)
== END | disposition home or self-care (01) ==
LOC: C.LABPBG 10:33
PROVIDERS: ATTEND Nurse Practitioner Adult Health
DX: I10 Essential (primary) hypertension (principal); R79.89 Other specified abnormal findings of blood chemistry

== ENCOUNTER → 2017-05-07 | Outpatient (CLI) | payer OTHER ==
--- NOTE | 2017-05-07 13:33 | DIAGNOSTIC IMAGING REPORT ---
GASTRIC EMPTYING CLINICAL HISTORY: 52 years-old Female presenting with NAUSEA AND VOMITING. TECHNIQUE: Following the oral administration of 1.1 mCi of technetium 99m sulfur colloid in egg sandwich and 8 ounces of water, static abdominal images are obtained anteriorly and posteriorly at 0 minutes, 1 hour, 2 hour, and 4 hour time intervals. Gastric emptying was calculated utilizing the geometric mean method. COMPARISON: CT from 12/21/2016. FINDINGS: There is approximately 54% activity remaining at the 1 hour time interval, 20% remaining at the 2 hour time interval (normal is less than 60%), and 0% activity remaining at the 4 hour time interval (normal is less than 10%). IMPRESSION: Findings are consistent with normal gastric emptying. Electronically signed by: Aiden Carlton M.D. 05/07/2017 1:31 PM Dictated Date/Time: 05/07/2017 1:30 PM
== END | disposition home or self-care (01) ==
LOC: C.NUCL 08:47
PROVIDERS: ATTEND Physician Assistant
DX: R11.2 Nausea with vomiting, unspecified (principal)

== ENCOUNTER 2017-05-08 00:43 | Observation (INO) | payer OTHER ==
[~2017-05-08] VITALS: Ht 170.2 cm; Wt 60.7 kg
[~2017-05-08 00:43] MED LIST changes: -CZR50 PO; -HYDR25TA4 PO; -METO100T14 PO
[2017-05-08] MEDS ORDERED: SODIUM CHLORIDE 0.9% 1000ML 1,000 ML IV STA ×2 (01:12→02:25)
--- NOTE | 2017-05-08 01:21 | EMERGENCY ROOM VISIT NOTE ---
History Report prepared by Andres: Jorge Alberto Murdock Under the Supervision of: Dr. Kierra Worley D.O. First contact with patient: 00:53 Chief Complaint: SYNCOPE Stated Complaint: SYNCOPE, LOW BLOOD PRESSURE History of Present Illness The patient is a 52 year old female who presents to the Emergency Room with complaints of a sudden syncopal episode occurring around midnight. The patient states that she woke up to go to the bathroom, and on the way she had a syncopal episode. She is now having some right sided numbness. She states that she checked her blood pressure earlier tonight, and it was 69/37. The patient states that today she had a gastric emptying test, and was not allowed to eat before it, though she had eaten afterwards. She additionally notes that yesterday she was vomiting, though she denies any vomiting today. She additionally denies any abdominal pain and diarrhea. She states that she has not had any recent changes in her blood pressure medications. The patient denies any history of smoking, and she states that she has been having a dry cough. She is taking lisinopril, metoprolol, and hydrochlorothiazide. Source of History: patient Onset: midnight Position: other (global) Quality: other (syncope) Timing: other (sudden) Associated Symptoms: + numbness, No vomiting, No abdominal pain, No diarrhea Review of Systems See HPI for pertinent positives & negatives. A total of 10 systems reviewed and were otherwise negative. Past Medical & Surgical Medical Problems: (1) MP (acute kidney injury) (2) Atherosclerosis Nos (3) Chronic hypertension (4) Elevated troponin I level (5) Hypertension Nos (6) HYPERTENSIVE URGENCY (7) Hypertensive urgency, malignant (8) Hypokalemia (9) Hyponatremia (10) Intractable nausea and vomiting (11) Malignant essential hypertension (12) Marijuana dependence (13) Nausea & vomiting (14) Prolonged QT interval (15) Renal artery stenosis (16) Uncontrolled hypertension Family History Cancer Diabetes mellitus Heart disease Hypertension Lung disease Social History Smoking Status: Former Smoker Alcohol Use: occasionally Drug Use: marijuana Marital Status: Housing Status: lives with family Occupation Status: employed Current/Historical Medications Scheduled Aspirin (Aspirin Chewable), 81 MG PO DAILY Atorvastatin (Lipitor), 20 MG PO HS Losartan Potassium (Losartan Potassium), 50 MG PO DAILY Metoprolol Tartrate (Lopressor) (Lopressor), 100 MG PO BID Multivitamin (Multivitamin), 1 TAB PO DAILY Huiubrer-Obcxnewcf-Pd (Otic) (Jarrod/Polymyxin/Hc [id number]), 3 DROPS OTB Q6H Scheduled PRN Clonidine Hcl (Catapres), 1 TAB PO Q6H PRN for Hypertension Ondasetron Odt (Zofran Odt), 4 MG SL Q6H PRN for Nausea or Vomiting Allergies Coded Allergies: Doxycycline (Verified Allergy, Unknown, rash, 05/08/17) Iodinated Diagnostic Agents (Verified Allergy, Unknown, `, 05/08/17) Latex1 -Allergic Contact Dermititis (Verified Allergy, Unknown, RASH, 05/08) Meperidine (Verified Allergy, Unknown, HIVES, VOMITING, 05/08/17) Prochlorperazine (Verified Allergy, Unknown, ., 05/08/17) [place] (Verified Allergy, Unknown, HIVES, 05/08/17) Tomato (Verified Allergy, Unknown, HIVES, 05/08/17) Uncoded Allergies: Hernandez Beans (Allergy, Unknown, HIVES, 11/27/16) Physical Exam Vital Signs Date Time Temp Pulse Resp B/P (MAP) Pulse Ox O2 Delivery O2 Flow Rate FiO2 05/08/17 03:30 60 18 116/66 96 Room Air 05/08/17 03:15 61 18 99/59 99 Room Air 05/08/17 02:45 53 18 91/58 95 Room Air 05/08/17 02:30 54 18 91/55 96 Room Air 05/08/17 02:15 50 18 97/52 98 Room Air 05/08/17 02:00 55 18 79/51 97 Room Air 05/08/17 01:49 52 18 84/41 95 Room Air 05/08/17 01:05 86 05/08/17 01:04 53 05/08/17 00:59 57 18 85/38 98 Room Air 05/08/17 00:47 36.7 59 18 75/45 97 Room Air Physical Exam HEENT: Head - normocephalic and atraumatic. Pupils are equal, round, and reactive to light. Extraocular eye muscles are intact and sclera are anicteric. Ears - bilaterally patent canals with noninjected tympanic membranes and no evidence of hemotympanum. Nose - moist nasal mucosa without discharge. Mouth - moist buccal mucosa. Oropharynx is nonerythematous and there is no tonsillar exudate or edema noted. Neck: Supple; no JVD, nuchal rigidity, cervical lymphadenopathy, or auscultated bruits. Heart: Regular rate and rhythm. There is a normal S1 and S2 with no murmurs, clicks, or gallops appreciated. Lungs: Clear to auscultation bilaterally with no wheezes, rales, or rhonchi. Abdomen: Soft, completely nontender, nondistended, with good bowel sounds. There are no palpable pulsatile masses or hepatosplenomegaly. There is no guarding, rigidity, or rebound noted. Rectal: Heme-negative stool. No obvious hemorrhoids or blood. Extremities: No evidence of cyanosis, clubbing, or edema. There are easily palpable peripheral pulses. Neuro: She describes right facial, flank, and leg numbness. However, On physical exam, she has good sensation when palpating these areas. The patient is awake and alert, oriented to day, time, and place. Muscle strength is 5/5 in all 4 extremities. The patient has equal office cleaner strength and equal pedal push and pull. There are no cerebellar signs. Medical Decision & Procedures Laboratory Results Test 05/08/17 01:30 05/08/17 03:00 Immature Granulocyte % (Auto) 0.2 % White Blood Count 9.18 K/uL (4.8-10.8) Red Blood Count 3.62 M/uL (4.2-5.4) Hemoglobin 10.9 g/dL (12.0-16.0) Hematocrit 32.9 % (37-47) Mean Corpuscular Volume 90.9 fL (80-100) Mean Corpuscular Hemoglobin 30.1 pg (25-34) Mean Corpuscular Hemoglobin Concent 33.1 g/dl (32-36) Platelet Count 304 K/uL (130-400) Mean Platelet Volume 9.3 fL (7.4-10.4) Neutrophils (%) (Auto) 40.0 % Lymphocytes (%) (Auto) 49.1 % Monocytes (%) (Auto) 6.8 % Eosinophils (%) (Auto) 3.1 % Basophils (%) (Auto) 0.8 % Neutrophils # (Auto) 3.68 K/uL (1.4-6.5) Lymphocytes # (Auto) 4.51 K/uL (1.2-3.4) Monocytes # (Auto) 0.62 K/uL (0.11-0.59) Eosinophils # (Auto) 0.28 K/uL (0-0.5) Basophils # (Auto) 0.07 K/uL (0-0.2) Immature Granulocyte # (Auto) 0.02 K/uL (0.00-0.02) Total Bilirubin 0.3 mg/dl (0.2-1) Aspartate Amino Transf (AST/SGOT) 13 U/L (15-37) Alanine Aminotransferase (ALT/SGPT) 18 U/L (12-78) Alkaline Phosphatase 59 U/L (45-117) Total Creatine Kinase 72 U/L (26-192) Creatine Kinase MB 1.6 ng/ml (0.5-3.6) Creatine Kinase MB Ratio 2.2 (0-3.0) Troponin I 0.024 ng/ml (0-0.045) Total Protein 6.5 gm/dl (6.4-8.2) Albumin 3.5 gm/dl (3.4-5.0) Globulin 3.0 gm/dl (2.5-4.0) Albumin/Globulin Ratio 1.2 (0.9-2) Thyroid Stimulating Hormone (TSH) 1.060 uIu/ml (0.300-4.500) Urine Color YELLOW Urine Appearance CLEAR (CLEAR) Urine pH 5.5 (4.5-7.5) Urine Specific [place] 1.012 (1.000-1.030) Urine Protein NEG (NEG) Urine Glucose (UA) NEG (NEG) Urine Ketones NEG (NEG) Urine Occult Blood TRACE (NEG) Urine Nitrite NEG (NEG) Urine Bilirubin NEG (NEG) Urine Urobilinogen NEG (NEG) Urine Leukocyte Esterase NEG (NEG) Urine WBC (Auto) /hpf (0-5) Urine RBC (Auto) /hpf (0-4) Urine Hyaline Casts (Auto) /lpf (0-5) Urine Epithelial Cells (Auto) /lpf (0-5) Urine Bacteria (Auto) (NEG) Urine RBC 0-4 /hpf (0-4) Urine WBC 1-5 /hpf (0-5) Urine Epithelial Cells 0-5 /lpf (0-5) Urine Bacteria NEG (NEG) Urine Opiates Screen NEG (NEG) Urine Methadone, Qualitative NEG (NEG) Urine Barbiturates NEG (NEG) Urine Phencyclidine (PCP) Level NEG (NEG) Ur Amphetamine/Methamphetamine NEG (NEG) MDMA (Ecstasy) Screen NEG (NEG) Urine Benzodiazepines Screen NEG (NEG) Urine Cocaine Metabolite NEG (NEG) Urine Marijuana (THC) POS (NEG) Laboratory results per my review. Medications Administered Medications (Trade) Dose Ordered Sig/Yeimy Route Start Time Stop Time Status Last Admin Dose Admin Sodium Chloride 1,000 ml @ 999 mls/hr Q1H1M STAT IV 05/08/17 01:12 05/08/17 02:12 DC 05/08/17 01:49 999 MLS/HR Sodium Chloride 1,000 ml @ 999 mls/hr Q1H1M STAT IV 05/08/17 02:25 05/08/17 03:25 DC 05/08/17 02:44 999 MLS/HR Potassium Chloride (Kcl 10 Meq / Wtr) 10 meq NOW STAT IV 05/08/17 02:25 05/08/17 02:27 DC 05/08/17 02:44 10 MEQ Procedure Sodium Chloride IV, Potassium Chloride IV ECG Indication: syncope Rate (beats per minute): 57 Rhythm: sinus bradycardia Findings: no acute ischemic change, no ectopy ED Course 0054: The patient was evaluated by the medical student 0108: Past medical records reviewed. The patient was evaluated in room B11. A complete history and physical exam was performed. While examining the patient, her blood pressure was 100/60, and then I laid her flat. She began to feel much more comfortable after laying her down. She was no longer hyperventilating and some of the numbness had dissipated. 0112: Sodium Chloride 1000 ml @ 999 mls/hr IV. 0143: I reevaluated the patient, and I gave counselling to the who describes being under increased stress secondary to his mother being in hospice care.. The patient states that her facial symptoms have improved, and her blood pressure with 84/40. 0224: I reevaluated the patient, reviewed laboratory studies, and and I updated her on the treatment plan 0225: Potassium Chloride 10meq, Sodium Chloride 1000 ml @ 999 mls/hr IV. 0230: Discussed the patient's case with Dr. Drake, and MIKHAIL Hein. The patient will be evaluated for further management. Medical Decision The patient is a 52 year old female who presents to the ED after a syncopal episode. Differential diagnosis includes hypotension, acute kidney injury, dehydration, anxiety, hyperventilation, TIA, CVA, and medication side effect. Lab results show: Hemoglobin of 10.9 which was down from 12.9 two weeks ago, normal white blood cell count, troponin of 0.024, normal TSH and LFTs, normal glucose, BUN of 38, creatinine of 1.5, potassium of 2.8. Upon presentation, the patient appeared to be significantly dehydrated and having hyperventilation. Patient had IV potassium and IV crystalloid therapy which did increase her blood pressure. The patient had no acute focal signs consistent with a TIA or CVA. The patient's hemoglobin has dropped. Her stools were heme-negative. She denies any other blood loss. Laboratory studies are concerning for dehydration. Just prior to admission to the hospital, the patient's symptoms seemed to resolved. I discussed the case with the [facility] hospitalist. Medication Reconcilliation Current Medication List: was personally reviewed by me Blood Pressure Screening Patient's blood pressure: Low blood pressure Monitored by the hospitalist Consults Consulting Physician: Dr. Drake and MIKHAIL Hein Discussed the patient's case with Dr. Drake and MIKHAIL Hein. The patient will be evaluated for further management. Impression Primary Impression: Hypotension Additional Impressions: Hypokalemia Anemia Dehydration Scribe Attestation The scribe's documentation has been prepared under my direction and personally reviewed by me in its entirety. I confirm that the note above accurately reflects all work, treatment, procedures, and medical decision making performed by me. Departure Information Dispostion Being Evaluated By Hospitalist Prescriptions Losartan Potassium (Losartan Potassium) 50 Mg Tab 50 MG PO DAILY, #30 TABS 3 Refills Prov: Rohit Roberts D.O. 05/08/17 Referrals Yashira Arizmendi C.R.N.P. (PCP) Patient Instructions My [facility] Health Problem Qualifiers Primary Impression: Hypotension Hypotension type: orthostatic hypotension Qualified Codes: I95.1 - Orthostatic hypotension Additional Impressions:
[2017-05-08] MEDS ORDERED: HYDR25TA4 PO (01:31)
[2017-05-08] MEDS ORDERED: METO100T14 PO (01:31)
[2017-05-08] MEDS ORDERED: ONDA4TAB10 SL (01:31)
[2017-05-08] MEDS ORDERED: LISI-461 PO (01:31)
[2017-05-08 01:44] LABS: BASO % 0.8 %; BASO ABS # 0.07 K/uL (0-0.2); COMPLETE YES; EOS % 3.1 %; HEMATOCRIT 32.9 % (37-47); IG% 0.2 %; LYMPH % 49.1 %; LYMPH ABS # 4.51 K/uL (1.2-3.4); MEAN CELL VOLUME 90.9 fL (80-100); MEAN CORPUSCULAR HEMOGLOBIN 30.1 pg (25-34); MEAN CORPUSCULAR HGB CONC 33.1 g/dl (32-36); MEAN PLATELET VOLUME 9.3 fL (7.4-10.4); MONO % 6.8 %; PLATELET COUNT 304 K/uL (130-400); RED BLOOD COUNT 3.62 M/uL (4.2-5.4); WHITE BLOOD COUNT 9.18 K/uL (4.8-10.8)
[2017-05-08 02:04] LABS: BUN/CREATININE RATIO 25.3 (10-20); CALCIUM 8.9 mg/dl (8.5-10.1); CREATININE 1.5 mg/dl (0.60-1.20); POTASSIUM 2.8 mmol/L (3.5-5.1)
[2017-05-08 02:15] LABS: ALB/GLOB RATIO 1.2 (0.9-2); CKMB/CK RATIO 2.2 (0-3.0); THYROID STIMULATING HORMONE 1.06 uIu/ml (0.300-4.500)
[2017-05-08] MEDS ORDERED: POTASSIUM CHLORIDE 10 MEQ / 100ML WTR IV STA (02:25)
[2017-05-08] MEDS ORDERED: POLYETHYLENE (MIRALAX) 17 GM PACK PO PRN (03:00)
[2017-05-08] MEDS ORDERED: ONDANSETRON INJ 2 MG/ML 2 ML VIAL IV PRN (03:00)
[2017-05-08] MEDS ORDERED: MAGNESIUM HYDROXIDE SUSP 30 ML UDC PO PRN (03:00)
[2017-05-08] MEDS ORDERED: ONDANSETRON 4MG OD TAB SL PRN (03:00)
[2017-05-08] MEDS ORDERED: ACETAMINOPHEN 325 MG TAB PO PRN (03:00)
[2017-05-08] MEDS ORDERED: ALUMINUM/MAGNESIUM/SIMETH (MAALOX MAX) 30 ML UDC PO PRN (03:00)
[2017-05-08 03:16] LABS: URINE APPEARANCE CLEAR (CLEAR); URINE BILIRUBIN NEG (NEG); URINE COLOR YELLOW; URINE NITRITE NEG (NEG); URINE PH 5.5 (4.5-7.5); URINE SPECIFIC GRAVITY 1.012 (1.000-1.030); UROBILINOGEN NEG (NEG)
[2017-05-08] MEDS ORDERED: IV FLUIDS COMPLETED PRN ×2 (03:30→04:15)
--- NOTE | 2017-05-08 03:32 | History and Physical ---
History & Physical Date & Time of Service: May 08, 2017 at 03:19 Chief Complaint: Syncope, Low Blood Pressure Primary Care Physician: Yashira Arizmendi C.R.N.P. History of Present Illness Source: patient The patient is 52-year-old with past medical history of coronary artery disease/ street and STEMI, severely uncontrolled hypertension, hyperlipidemia, and chronic nausea, who presents to the emergency department after an episode of syncope. Patient states that she woke up this morning at around midnight, went to the bathroom. Her notes that he looked at her in the doorway, noticed that she was falling backwards, and got to her in time to catch her before she hit her head on the ground. She denies hitting her head. She states she is feeling a generalized sense of weakness after being on the ground, but denies any associated injury. She takes maybe she blacked out for 10-15 seconds, but regained consciousness rapidly. She does note having some right facial, right upper and lower extremity tingling which is since resolved with the exception of having some tingling around her lips. She notes that yesterday she had a days worth of nausea and vomiting. This is a chronic problem and she had a gastric emptying study scheduled for this morning and was fasting prior to. In addition to this, she states that she took all of her antihypertensive medications. In the ED she is found to be hypotensive with blood pressures in the systolic of 60s. Her potassium was 2.8, as well as an elevated creatinine at 1.5. As such the decision was made to admit the patient to manage hypotension and hypokalemia. Of note regards to her history of blood pressure issues, she had a previous history of severely uncontrolled hypertension. She has had extensive workup done for secondary causes, all of which have turned out to be negative. Last admission in January, she was admitted for elevated blood pressure. She was discharged on numerous antihypertensive medications which include clonidine, hydrochlorothiazide, lisinopril and metoprolol. Past Medical/Surgical History Medical Problems: Severe uncontrolled hypertension GERD Chronic nausea Atherosclerosis Nos Status: Chronic Hypertension Nos Status: Chronic Concern for possible Marijuana dependence Status: Chronic Family History Cancer Diabetes mellitus Heart disease Hypertension Lung disease Social History Smoking Status: Former Smoker Smokeless Tobacco Use: No Alcohol Use: none Drug Use: marijuana Marital Status: Housing status: lives with family Occupational Status: employed Immunizations History of Influenza Vaccine: Unknown History of Tetanus Vaccine?: Unknown History of Pneumococcal: Unknown History of Hepatitis B Vaccine: Unknown Multi-Drug Resistant Organisms History of MDRO: No Allergies Coded Allergies: Doxycycline (Verified Allergy, Unknown, rash, 05/08/17) Iodinated Diagnostic Agents (Verified Allergy, Unknown, `, 05/08/17) Latex1 -Allergic Contact Dermititis (Verified Allergy, Unknown, RASH, 05/08) Meperidine (Verified Allergy, Unknown, HIVES, VOMITING, 05/08/17) Prochlorperazine (Verified Allergy, Unknown, ., 05/08/17) [place] (Verified Allergy, Unknown, HIVES, 05/08/17) Tomato (Verified Allergy, Unknown, HIVES, 05/08/17) Uncoded Allergies: Hernandez Beans (Allergy, Unknown, HIVES, 11/27/16) Home Medications Scheduled Aspirin (Aspirin Chewable), 81 MG PO DAILY Atorvastatin (Lipitor), 20 MG PO HS Hydrochlorothiazide (Hctz), 12.5 MG PO BID Lisinopril (Lisinopril), 10 MG PO BID Metoprolol Tartrate (Lopressor) (Lopressor), 100 MG PO BID Multivitamin (Multivitamin), 1 TAB PO DAILY Jijvhofu-Iookxydiv-Dc (Otic) (Jarrod/Polymyxin/Hc [id number]), 3 DROPS OTB Q6H Scheduled PRN Clonidine Hcl (Catapres), 1 TAB PO Q6H PRN for Hypertension Ondasetron Odt (Zofran Odt), 4 MG SL Q6H PRN for Nausea or Vomiting Review of Systems A 10 point review of systems was negative unless stated above. Physical Exam Vital Signs Date Time Temp Pulse Resp B/P (MAP) Pulse Ox O2 Delivery O2 Flow Rate FiO2 05/08/17 02:15 50 18 97/52 98 Room Air 05/08/17 02:00 55 18 79/51 97 Room Air 05/08/17 01:49 52 18 84/41 95 Room Air 05/08/17 01:05 86 05/08/17 01:04 53 05/08/17 00:59 57 18 85/38 98 Room Air 05/08/17 00:47 36.7 59 18 75/45 97 Room Air General Appearance: WD/WN, no apparent distress Head: normocephalic, atraumatic Eyes: normal inspection, EOMI ENT: hearing grossly normal Neck: supple, no adenopathy, no JVD Respiratory/Chest: lungs clear, no respiratory distress Cardiovascular: regular rate, rhythm, no gallop, no murmur Abdomen/GI: normal bowel sounds, non tender, soft Back: no CVA tenderness, no muscle spasm Extremities/Musculoskelatal: no calf tenderness, no pedal edema Neurologic/Psych: alert, normal mood/affect, oriented x 3 Skin: normal color, warm/dry, no rash Lymphatic: no adenopathy Diagnostics Laboratory Results Results Past 24 Hours Test 05/08/17 01:30 05/08/17 03:00 05/08/17 03:04 Range/Units White Blood Count 9.18 4.8-10.8 K/uL Red Blood Count 3.62 4.2-5.4 M/uL Hemoglobin 10.9 12.0-16.0 g/dL Hematocrit 32.9 37-47 % Mean Corpuscular Volume 90.9 80-100 fL Mean Corpuscular Hemoglobin 30.1 25-34 pg Mean Corpuscular Hemoglobin Concent 33.1 32-36 g/dl Platelet Count 304 130-400 K/uL Mean Platelet Volume 9.3 7.4-10.4 fL Neutrophils (%) (Auto) 40.0 % Lymphocytes (%) (Auto) 49.1 % Monocytes (%) (Auto) 6.8 % Eosinophils (%) (Auto) 3.1 % Basophils (%) (Auto) 0.8 % Neutrophils # (Auto) 3.68 1.4-6.5 K/uL Lymphocytes # (Auto) 4.51 1.2-3.4 K/uL Monocytes # (Auto) 0.62 0.11-0.59 K/uL Eosinophils # (Auto) 0.28 0-0.5 K/uL Basophils # (Auto) 0.07 0-0.2 K/uL RDW Standard Deviation 42.0 36.4-46.3 fL RDW Coefficient of Variation 12.7 11.5-14.5 % Immature Granulocyte % (Auto) 0.2 % Immature Granulocyte # (Auto) 0.02 0.00-0.02 K/uL Sodium Level 134 136-145 mmol/L Potassium Level 2.8 3.5-5.1 mmol/L Chloride Level 95 98-107 mmol/L Carbon Dioxide Level 29 21-32 mmol/L Anion Gap 10.0 3-11 mmol/L Blood Urea Nitrogen 38 7-18 mg/dl Creatinine 1.50 0.60-1.20 mg/dl Est Creatinine Clear Calc Drug Dose 42.0 ml/min Estimated GFR () 46.3 Estimated GFR (Non- 39.9 BUN/Creatinine Ratio 25.3 10-20 Random Glucose 98 70-99 mg/dl Calcium Level 8.9 8.5-10.1 mg/dl Total Bilirubin 0.3 0.2-1 mg/dl Aspartate Amino Transf (AST/SGOT) 13 15-37 U/L Alanine Aminotransferase (ALT/SGPT) 18 12-78 U/L Alkaline Phosphatase 59 45-117 U/L Total Creatine Kinase 72 26-192 U/L Creatine Kinase MB 1.6 0.5-3.6 ng/ml Creatine Kinase MB Ratio 2.2 0-3.0 Troponin I 0.024 0-0.045 ng/ml Total Protein 6.5 6.4-8.2 gm/dl Albumin 3.5 3.4-5.0 gm/dl Globulin 3.0 2.5-4.0 gm/dl Albumin/Globulin Ratio 1.2 0.9-2 Thyroid Stimulating Hormone (TSH) 1.060 0.300-4.500 uIu/ml Impression Assessment and Plan 52-year-old female presenting with hypotension on a background of dehydration, acute kidney injury in addition to taking all of her antihypertensive medications. Our plan for her is as follows: Hypotension - Multifactorial: Vomiting, nothing by mouth status, multiple antihypertensives ingested - Responded in the ED to bolusing of fluids; will continue to give IV maintenance fluids overnight - Hold all antihypertensives at this time and gradually restarted per day team. History of severe uncontrolled hypertension - All medications to be held at this time - Per review of previous records extensive secondary workup was started and completed and will not be done at this time - Consult nephrology for recommendations on gradual reinstatement of her blood pressure medications and outpatient regimen Hypokalemia - K 2.8 on arrival - 10 mEq IV KCl given in the ED - Will add 20 mEq to maintenance fluids - Repeat BMP today at noon Acute kidney injury - Creatinine 1.5 in the ED; baseline 0.6-0.8 - Likely secondary to dehydration, +/- hypoperfusion from hypotension - Rehydration initiated in the ED; will continue maintenance fluids overnight and monitor BMP daily History of chronic nausea - Had gastric and is studying done - Reviewed results which were normal - Reviewed previous documentation suggests suspicion for chronic marijuana use - I repeated urine drug screen at this time to evaluate for possibility of cannabinoid hyperemesis Stable coronary artery disease - Hold ASA due to acute kidney injury - Continue atorvastatin - Hold lisinopril and metoprolol in the setting of hypotension; restart as tolerated DVT Prophylaxis - SCD Knee, HEDY Hose - Heparin 5000 U s.c. TID Code Status - Level I Full Code Disposition - Telemetry Attending Addendum: I have physically seen and examined this patient, have directed the resident's medical activities, and agree with the H&P as noted above with the following exceptions as noted. The patient is awake, alert and oriented 3, well-developed and well-nourished , normocephalic and atraumatic, lying in bed and in no acute distress. HEENT--PERRL, EOMI, mucous membranes and oropharynx dry. Neck--supple, no JVD or bruits, thyroid normal, trachea midline, no adenopathy. Heart--normal S1 and S2, no extra beats, no murmurs, rubs or gallops. Lungs--clear bilaterally with good air movement, no respiratory distress, no accessory muscle use. Abdomen--normal bowel sounds and soft, nontender and nondistended, no hernias or masses, no organomegaly. Extremities--no cyanosis, clubbing or edema. There are good distal pulses b/l. Dermatologic--normal skin turgor, normal color, warm and dry, no abnormal lymph nodes, no rash. Neurologic--cranial nerves II through XII grossly intact, motor and sensory examination normal. Rheumatologic--normal range of motion, nontender, muscles and joints. Psychiatric--normal affect. Assessment and Plan: History of multiple hospitalizations for elevated blood pressure/presents with hypotension post gastric emptying study/hypokalemia/acute kidney injury-- The patient will be admitted to telemetry unit for close blood pressure monitoring. Current episode of low blood pressure is likely secondary to her taking medications, not eating all day, and having undergone the above study. Continue IV fluid rehydration begun in the emergency department, including potassium supplementation. Hold HCTZ, lisinopril, metoprolol tartrate. The patient has already had a significant secondary hypertension workup in the recent past. 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 Oscar. With the easier control of her blood pressure while in hospital, One might be concerned about her ability to take her medications as directed. Parkinson Plus Syndrome is a diagnosis to consider as well. Unexplained nausea, with several hospital admissions this year-- Patient has had confirmation of marijuana use at previous admissions, question as to whether she may have cannabinoid hyperemesis syndrome. Level of Care Telemetry Advanced Directives Existing Advance Directive: No Existing Living Will: No Existing Power of Agriculture Intern: No Resuscitation Status FULL RESUSCITATION VTE Prophylaxis VTE Risk Assessment Done? Y/N: Yes Risk Level: Moderate Given or contraindicated: Unfractionated heparin SQ
[2017-05-08 03:35] LABS: BENZODIAZEPINE, URINE NEG (NEG); COCAINE,URINE NEG (NEG); PHENCYCLIDINE, URINE NEG (NEG)
[2017-05-08 03:40] LABS: MANUAL MICROSCOPIC REQUIRED? YES; REVIEW REQ? NO
[2017-05-08 04:04] LABS: URINE BACTERIA NEG (NEG); URINE RBC 0-4 /hpf (0-4)
[2017-05-08 04:34] LABS: FERRITIN 125.9 ng/ml (8.0-388.0)
[2017-05-08 05:02] VITALS: BP 108/70; PULSE 53; TEMP 36.8; O2SAT 100; Ht 170.2 cm; Wt 60.7 kg
[2017-05-08] MEDS: NSS + 20MEQ KCL 1000ML 1,000 ML IV SCH ×2 (05:21→12:48)
[2017-05-08] MEDS ORDERED: HEPARIN SOD 5000 UNIT/0.5 ML CARP SQ SCH (06:00)
[2017-05-08 07:17] VITALS: BP 103/68; PULSE 56; TEMP 36.9; O2SAT 96
[2017-05-08] MEDS: NEOMYCIN/POLYMYX/HYDROCORT OT SUSP 10 ML BTL OTB SCH ×2 (08:34→12:48)
[2017-05-08] MEDS ORDERED: MULTIVITAMIN TAB PO SCH (09:00)
[2017-05-08] MEDS ORDERED: POTASSIUM CHLORIDE 20 MEQ TABCR PO ONE (11:00)
--- NOTE | 2017-05-08 11:08 | Nephrology Consultation ---
Nephrology Consultation Date & Providers Date of Consultation: May 08, 2017. Primary Care Provider: Yashira Arizmendi C.R.N.P. Referring Provider: Reason for Consultation Assist with HTN management and correction of electrolyte imbalance History of Present Illness Mrs. Velasquez is a 52 year old white female who is seen at the request of Dr. Jacobo to assist with HTN management and electrolyte disorders. Medical records in the hospital EMR were reviewed today and are summarized as follows: Mrs. Velasquez has a longstanding history of hypertension. In the past this has been difficult to control. She has undergone evaluation for secondary causes by Dr. Oscar. Renin and Aldosterone levels, plasma metanephrines were normal. 24 hour urine for metanephrines was normal as well. Renal artery doppler was negative for CATRACHITA. Blood pressure was controlled with Metoprolol tartrate, Lisinopril and HCTZ. Mrs. Velasquez also has a h/o ASCVD, hyperlipidemia, diverticulosis, anxiety d/o and gastritis. Recently Mrs. Velasquez has been experiencing GI upset. She reports 2 days of recurrent emesis but was able to keep down her blood pressure medications. She was NPO yesterday for a gastric emptying study. The study was read as normal. Mrs. Velasquez however developed dehydration and suffered a syncopal event last night. Her brought her to the ED where she was found to have SBP 70's, MP (creatinine 1.0 --> 1.5) and hyponatremia. She was admitted to the PCU for cardiac monitoring, IV hydration and correction of electrolyte imbalance. Past Medical/Surgical History Medical: # HTN # ASCVD # Anxiety d/o # Prior evaluation for possible MS # Diverticulosis # h/o gastritis # Hyperlipidemia Surgical: # Hernia repair # Hysterectomy Allergies Coded Allergies: Doxycycline (Verified Allergy, Unknown, rash, 05/08/17) Iodinated Diagnostic Agents (Verified Allergy, Unknown, `, 05/08/17) Latex1 -Allergic Contact Dermititis (Verified Allergy, Unknown, RASH, 05/08) Meperidine (Verified Allergy, Unknown, HIVES, VOMITING, 05/08/17) Prochlorperazine (Verified Allergy, Unknown, ., 05/08/17) [place] (Verified Allergy, Unknown, HIVES, 05/08/17) Tomato (Verified Allergy, Unknown, HIVES, 05/08/17) Uncoded Allergies: Hernandez Beans (Allergy, Unknown, HIVES, 11/27/16) Inpatient Medications Current Inpatient Medications Medications (Trade) Dose Ordered Sig/Yeimy Route Start Time Stop Time Status Last Admin Dose Admin Heparin Sodium (Porcine) (Heparin Sq 5000 Unit/0.5ml) 5,000 unit Q8H SQ 05/08/17 06:00 06/07/17 05:59 Acetaminophen (Tylenol Tab) 650 mg Q4H PRN PO 05/08/17 03:00 06/07/17 02:59 Al Hydrox/Mg Hydrox/Simethicone (Maalox Max Susp) 15 ml Q4H PRN PO 05/08/17 03:00 06/07/17 02:59 Magnesium Hydroxide (Milk Of Magnesia Susp) 30 ml Q6H PRN PO 05/08/17 03:00 06/07/17 02:59 Polyethylene (Miralax Powder Packet) 17 gm DAILY PRN PO 05/08/17 03:00 06/07/17 02:59 Ondansetron HCl (Zofran Inj) 4 mg Q6H PRN IV 05/08/17 03:00 06/07/17 02:59 Potassium Chloride/Sodium Chloride 1,000 ml @ 125 mls/hr Q8H IV 05/08/17 05:00 06/07/17 04:59 05/08/17 05:21 125 MLS/HR Atorvastatin Calcium (Lipitor Tab) 20 mg HS PO 05/08/17 21:00 06/07/17 20:59 Multivitamins (Multivitamin Tab) 1 tab DAILY PO 05/08/17 09:00 06/07/17 08:59 05/08/17 08:34 1 TAB Neomycin/ Polymyxin/ Hydrocortisone (Cortisporin Otic Susp) 3 drops Q6H OTB 05/08/17 06:00 06/07/17 05:59 05/08/17 08:34 3 DROPS Ondansetron HCl (Zofran Odt) 4 mg Q6H PRN SL 05/08/17 03:00 06/07/17 02:59 Miscellaneous (Iv Fluids Completed) 1 ea PRN PRN N/A 05/08/17 03:30 05/08/18 03:29 Family History Cancer Diabetes mellitus Heart disease Hypertension Lung disease Positive for HTN Social History Smoking Status: Never Smoker Smokeless Tobacco Use: No Alcohol Use: none Drug Use: marijuana Marital Status: Housing Status: lives with family Occupation: employed . Resides in [place]. 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 Former smoker. Former recreational marijuana use. Review of Systems Constitutional: No fever Respiratory: No shortness of breath Cardiovascular: No chest pain Abdomen: + vomiting, No pain, No nausea, No diarrhea Genitourinary - Female: No dysuria A complete review of systems was performed. Pertinent positives are noted above. All other systems are negative. Physical Exam Date Time Temp Pulse Resp B/P (MAP) Pulse Ox O2 Delivery O2 Flow Rate FiO2 05/08/17 07:17 36.9 56 20 103/68 (80) 96 Room Air 05/08/17 05:02 36.8 53 20 108/70 100 Room Air 05/08/17 04:40 60 18 101/74 98 05/08/17 03:30 60 18 116/66 96 Room Air 05/08/17 03:15 61 18 99/59 99 Room Air 05/08/17 02:45 53 18 91/58 95 Room Air 05/08/17 02:30 54 18 91/55 96 Room Air 05/08/17 02:15 50 18 97/52 98 Room Air 05/08/17 02:00 55 18 79/51 97 Room Air 05/08/17 01:49 52 18 84/41 95 Room Air 05/08/17 01:05 86 05/08/17 01:04 53 05/08/17 00:59 57 18 85/38 98 Room Air 05/08/17 00:47 36.7 59 18 75/45 97 Room Air General Appearance: no apparent distress Head: normocephalic, atraumatic Eyes: PERRL, EOMI ENT: + pertinent finding (mouth with dry mucous membranes) Neck: no adenopathy Respiratory/Chest: lungs clear, no respiratory distress Cardiovascular: regular rate, rhythm Abdomen/GI: normal bowel sounds, non tender, soft, + pertinent finding (no arterial bruit) Extremities/Musculoskelatal: no calf tenderness, no pedal edema, + pertinent finding (Symmetric peripheral pulses. No radial femoral pulse delay) Neurologic/Psych: alert, oriented x 3 Skin: warm/dry, + pertinent finding (poor skin turgor) Laboratory Results Last 24 Hours Test 05/08/17 01:30 05/08/17 03:00 05/08/17 04:03 White Blood Count 9.18 K/uL Red Blood Count 3.62 M/uL Hemoglobin 10.9 g/dL Hematocrit 32.9 % Mean Corpuscular Volume 90.9 fL Mean Corpuscular Hemoglobin 30.1 pg Mean Corpuscular Hemoglobin Concent 33.1 g/dl Platelet Count 304 K/uL Mean Platelet Volume 9.3 fL Neutrophils (%) (Auto) 40.0 % Lymphocytes (%) (Auto) 49.1 % Monocytes (%) (Auto) 6.8 % Eosinophils (%) (Auto) 3.1 % Basophils (%) (Auto) 0.8 % Neutrophils # (Auto) 3.68 K/uL Lymphocytes # (Auto) 4.51 K/uL Monocytes # (Auto) 0.62 K/uL Eosinophils # (Auto) 0.28 K/uL Basophils # (Auto) 0.07 K/uL RDW Standard Deviation 42.0 fL RDW Coefficient of Variation 12.7 % Immature Granulocyte % (Auto) 0.2 % Immature Granulocyte # (Auto) 0.02 K/uL Sodium Level 134 mmol/L Potassium Level 2.8 mmol/L Chloride Level 95 mmol/L Carbon Dioxide Level 29 mmol/L Anion Gap 10.0 mmol/L Blood Urea Nitrogen 38 mg/dl Creatinine 1.50 mg/dl Est Creatinine Clear Calc Drug Dose 42.0 ml/min Estimated GFR () 46.3 Estimated GFR (Non- 39.9 BUN/Creatinine Ratio 25.3 Random Glucose 98 mg/dl Calcium Level 8.9 mg/dl Total Bilirubin 0.3 mg/dl Aspartate Amino Transf (AST/SGOT) 13 U/L Alanine Aminotransferase (ALT/SGPT) 18 U/L Alkaline Phosphatase 59 U/L Total Creatine Kinase 72 U/L Creatine Kinase MB 1.6 ng/ml Creatine Kinase MB Ratio 2.2 Troponin I 0.024 ng/ml Total Protein 6.5 gm/dl Albumin 3.5 gm/dl Globulin 3.0 gm/dl Albumin/Globulin Ratio 1.2 Thyroid Stimulating Hormone (TSH) 1.060 uIu/ml Urine Color YELLOW Urine Appearance CLEAR Urine pH 5.5 Urine Specific [place] 1.012 Urine Protein NEG Urine Glucose (UA) NEG Urine Ketones NEG Urine Occult Blood TRACE Urine Nitrite NEG Urine Bilirubin NEG Urine Urobilinogen NEG Urine Leukocyte Esterase NEG Urine WBC (Auto) /hpf Urine RBC (Auto) /hpf Urine Hyaline Casts (Auto) /lpf Urine Epithelial Cells (Auto) /lpf Urine Bacteria (Auto) Urine RBC 0-4 /hpf Urine WBC 1-5 /hpf Urine Epithelial Cells 0-5 /lpf Urine Bacteria NEG Urine Opiates Screen NEG Urine Methadone, Qualitative NEG Urine Barbiturates NEG Urine Phencyclidine (PCP) Level NEG Ur Amphetamine/Methamphetamine NEG MDMA (Ecstasy) Screen NEG Urine Benzodiazepines Screen NEG Urine Cocaine Metabolite NEG Urine Marijuana (THC) POS Absolute Reticulocyte Count 0.04 10^6/uL Percent Reticulocyte Count 1.2 % Iron Level 31 mcg/dl Total Iron Binding Capacity 255 mcg/dl Ferritin 125.9 ng/ml Vitamin B12 Level 592 pg/mL Folate > 24.00 ng/mL Impression (1) Dehydration (2) Hypotension (3) Hypokalemia (4) Hyponatremia (5) MP (acute kidney injury) (6) Chronic hypertension Recommendations HYPERTENSION: -- Patient is volume contracted resulting in hypotension -- Hold Metoprolol, Lisinopril and HCTZ -- Provide gentle hydration with 0.9NS HYPONATREMIA: -- Due to combination Na depletion related to thiazide diuretic use and ADH release associated with dehydration -- Monitor serum sodium. Expect that this will correct off HCTZ with 0.9 NS administration -- May need to avoid thiazide diuretics in the outpatient setting MP: -- Urine sediment is acellular -- Will consider renal US if kidney function fails to improve w/ IV hydration GI: -- Review of EMR shows that patient has frequent episodes of N&V resulting in dehydration and hypertensive urgency (missed med doses). Recommend consultation with GI to define cause of recurrent N&V
[2017-05-08 11:22] VITALS: BP 115/73; PULSE 52; TEMP 36.9; O2SAT 98
[2017-05-08 12:18] LABS: HEMATOCRIT 32.3 % (37-47); MEAN CELL VOLUME 93.1 fL (80-100); MEAN CORPUSCULAR HEMOGLOBIN 31.1 pg (25-34); MEAN CORPUSCULAR HGB CONC 33.4 g/dl (32-36); MEAN PLATELET VOLUME 9.7 fL (7.4-10.4); PLATELET COUNT 294 K/uL (130-400); RED BLOOD COUNT 3.47 M/uL (4.2-5.4); WHITE BLOOD COUNT 7.89 K/uL (4.8-10.8)
[2017-05-08 12:43] LABS: BUN/CREATININE RATIO 24.7 (10-20); CALCIUM 8.5 mg/dl (8.5-10.1); POTASSIUM 3.5 mmol/L (3.5-5.1)
--- NOTE | 2017-05-08 12:52 | Discharge Instructions ---
Discharge Instructions Date of Service May 08, 2017. Admission Reason for Admission: Flaco, Hypotension Discharge Discharge Diagnosis / Problem: Acute kidney injury, hypotension, dehydration, low sodium Discharge Goals Goal(s): Improve function, Improve disease control Activity Recommendations Activity Limitations: resume your previous activity Lifting Limitations: none Exercise/Sports Limitations: as tolerated Shower/Bathe: no limitations Driving or Machine Use: no limitations . Instructions / Follow-Up Instructions / Follow-Up Medications: - HYDROCHLOROTHIAZIDE: stop taking this medication as it can lead to dehydration and low sodium - LOSARTAN: 50mg daily, start taking tomorrow morning - LISINOPRIL: stop taking as of now, no further doses needed Dehydration, low blood pressure resolved with IV fluids, safe for discharge. Hypertension: resume all prior medications with exception of Hydrochlorothiazide FOLLOW UP - Dr. Oscar as previously scheduled - Yashira BANKS in one week, call for appointment Current Hospital Diet Patient's current hospital diet: Regular Diet Discharge Diet Recommended Diet: Regular Diet Pending Studies Studies pending at discharge: no Laboratory Results Lipid Panel Test 02/24/17 08:46 Range/Units Triglycerides Level 71 0-150 mg/dl Cholesterol Level 171 0-200 mg/dl HDL Cholesterol 61 mg/dl Cholesterol/HDL Ratio 2.8 LDL Cholesterol, Calculated 96 mg/dl Medical Emergencies . Who to Call and When: Medical Emergencies: If at any time you feel your situation is an emergency, please call 911 immediately. . Non-Emergent Contact Non-Emergency issues call your: Primary Care Provider, Power Line Installer Call Non-Emergent contact if: you have any medication questions . . "Provider Documentation" section prepared by Rohit Roberts. . VTE Core Measure Inpt VTE Proph given/why not?: Unfractionated heparin SQ [place] Drug Monitoring Program Search Results: no issues identified
[2017-05-08] MEDS ORDERED: CZR50 PO (13:17)
--- NOTE | 2017-05-08 13:37 | Discharge Summary ---
Discharge Summary Date of Service May 08, 2017. Discharge Summary Admission Date: May 08, 2017 at 03:34 Discharge Date: May 08, 2017 Discharge Disposition: Home Principal Diagnosis: Hypotension Problems/Secondary Diagnoses: MP Hypokalemia Hyponatremia Immunizations: Have You Had Influenza Vaccine: Unknown History of Tetanus Vaccine?: Unknown History of Pneumococcal: Unknown History of Hepatitis B Vaccine: Unknown Procedures: none Consultations: Nephrology Medication Reconciliation New Medications: Losartan Potassium (Losartan Potassium) 50 Mg Tab 50 MG PO DAILY, #30 TABS 3 Refills Continued Medications: Aspirin (Aspirin Chewable) 81 Mg Chew 81 MG PO DAILY Atorvastatin (Lipitor) 20 Mg Tab 20 MG PO HS, TAB Clonidine Hcl (Catapres) 0.1 Mg Tab 1 TAB PO Q6H PRN for Hypertension for 90 Days, #360 TAB 1 Refill NEEDED FOR ACCELERATED HYPERTENSION SYSTOLIC BLOOD PRESSURE Metoprolol Tartrate (Lopressor) (Lopressor) 100 Mg Tab 100 MG PO BID, TAB Multivitamin (Multivitamin) Tab 1 TAB PO DAILY, TAB Qimbddhj-Juvorhofx-Tx (Otic) (Jarrod/Polymyxin/Hc [id number]-) 1 Saige Saige 3 DROPS OTB Q6H Ondasetron Odt (Zofran Odt) 4 Mg Tab 4 MG SL Q6H PRN for Nausea or Vomiting, #6 TAB Discontinued Medications: Hydrochlorothiazide (Hctz) 25 Mg Tab 12.5 MG PO BID, TAB Lisinopril (Lisinopril) 10 Mg Tab 10 MG PO BID Discharge Exam Patient feeling much better this morning after IV fluids all night. Blood pressure in the 100-110's systolic. Eating and drinking well for breakfast. Repeated labs at noon, Cr normalized at 1.0 and potassium and sodium also normal. discussed case with Dr. Schultz, he recommended stopping the HCTZ and also changing the Lisinopril to Losartan since the patient was c/o a dry cough Review of Systems: Constitutional: + weakness, No fever, No chills, No sweats, No weight loss, No fatigue, No problem reported Eyes: No worsening of vision, No eye pain, No redness, No discharge, No diplopia, No problem reported ENT: No hearing loss, No unusual epistaxis, No nasal symptoms, No sore throat, No tinnitus, No dental problems, No trouble swallowing, No problem reported Respiratory: No cough, No sputum, No wheezing, No shortness of breath, No dyspnea on exertion, No dyspnea at rest, No hemoptysis, No problem reported Cardiovascular: No chest pain, No orthopnea, No PND, No edema, No claudication, No palpitations, No problem reported Abdomen: No pain, No nausea, No vomiting, No diarrhea, No constipation, No GI bleeding, No problem reported Musculoskeletal: No joint pain, No muscle pain, No swelling, No calf pain, No problem reported Genitourinary - Female: No dysuria, No urinary frequency, No urinary urgency , No urinary incontinence, No urinary retention, No hematuria Neurologic: No memory loss, No paralysis, No weakness, No numbness/tingling , No vertigo, No balance problems, No problem reported Psychiatric: No depression symptoms, No anhedonism, No anxiety, No insomnia , No substance abuse, No problem reported Endocrine: No fatigue, No excessive thirst, No excessive urination, No problem reported Hematologic / Lymphatic: No abnormal bleeding/bruising, No clotting problems , No swollen lymph nodes, No night sweats, No problem reported Integumentary: No rash, No itch, No new/changing skin lesions, No color change, No bleeding, No problem reported Physical Exam: General Appearance: WD/WN, no apparent distress Eyes: normal inspection, EOMI, sclerae normal Neck: supple, no adenopathy, no JVD, trachea midline Respiratory/Chest: chest non-tender, lungs clear, normal breath sounds, no respiratory distress, no accessory muscle use Cardiovascular: regular rate, rhythm, no edema, no gallop, no JVD, no murmur , normal peripheral pulses Abdomen / GI: normal bowel sounds, non tender, soft, no organomegaly Extremities: normal inspection, no calf tenderness, normal capillary refill , no pedal edema, normal range of motion, pelvis stable 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 Hypotension: resolved with IV fluids, was caused by fasting for gastric emptying study and taking her BP medications - will resume metoprolol this evening, told to start Losartan tomorrow AM History of severe uncontrolled hypertension - continue metoprolol and continue to use Clonidine q6 PRN - will stop HCTZ in the setting of hyponatremia - change Lisinopril to Losartan, first dose on 05/09 Hypokalemia - K 2.8 on arrival, resolved with K replacement, 3.5 today Acute kidney injury - Creatinine 1.5 in the ED; baseline 0.6-0.8 - Likely secondary to dehydration, +/- hypoperfusion from hypotension - Resolved today with Cr of 1.0 after aggressive hydration and holding GIANNI/HCTZ History of chronic nausea - Had gastric and is studying done - Reviewed results which were normal - has had thorough work up with GI - eating normally this morning Stable coronary artery disease - continue ASA and statin DVT Prophylaxis - SCD Knee, HEDY Hose - Heparin 5000 U s.c. TID Code Status - Level I Full Code Disposition - d/c to home Total Time Spent: Greater than 30 minutes This includes examination of the patient, discharge planning, medication reconciliation, and communication with other providers. Discharge Instructions Please refer to the electronic Patient Visit Report (Discharge Instructions) for additional information. Follow-Up Dr. Oscar as previously scheduled Yashira Arizmendi in one week, call for appointment Additional Copies To Yashira Arizmendi ,HomerN.Ari.; Igor Oscar D.O.
[2017-05-08 13:39] VITALS: BP 115/73; PULSE 70; TEMP 36.9; O2SAT 98
--- NOTE | 2017-05-08 14:16 | Medical Student: [facility] ---
Discharge Summary Admission Date: May 08, 2017 at 03:34 Discharge Date: May 08, 2017 Discharge Disposition: Home Principal Diagnosis: Hypotension Problems/Secondary Diagnoses: MP, Hypokalemia Immunizations: Have You Had Influenza Vaccine: Unknown History of Tetanus Vaccine?: Unknown History of Pneumococcal: Unknown History of Hepatitis B Vaccine: Unknown Medications: New Medications: Losartan Potassium (Losartan Potassium) 50 Mg Tab 50 MG PO DAILY, #30 TABS 3 Refills Continued Medications: Aspirin (Aspirin Chewable) 81 Mg Chew 81 MG PO DAILY Atorvastatin (Lipitor) 20 Mg Tab 20 MG PO HS, TAB Clonidine Hcl (Catapres) 0.1 Mg Tab 1 TAB PO Q6H PRN for Hypertension for 90 Days, #360 TAB 1 Refill NEEDED FOR ACCELERATED HYPERTENSION SYSTOLIC BLOOD PRESSURE Metoprolol Tartrate (Lopressor) (Lopressor) 100 Mg Tab 100 MG PO BID, TAB Multivitamin (Multivitamin) Tab 1 TAB PO DAILY, TAB Sfrbzldl-Atsgpwwss-Vq (Otic) (Jarrod/Polymyxin/Hc 5-30030-) 1 Saige Saige 3 DROPS OTB Q6H Ondasetron Odt (Zofran Odt) 4 Mg Tab 4 MG SL Q6H PRN for Nausea or Vomiting, #6 TAB Discontinued Medications: Hydrochlorothiazide (Hctz) 25 Mg Tab 12.5 MG PO BID, TAB Lisinopril (Lisinopril) 10 Mg Tab 10 MG PO BID Discharge Exam Review of Systems: Constitutional: No fever, No chills, No sweats ENT: No unusual epistaxis, No nasal symptoms, No sore throat, No tinnitus Respiratory: + cough (dry. thought to be related to Lisinopril), No sputum, No wheezing, No shortness of breath Abdomen: + constipation (has BM once weekly. This is reportedly normal for her. ), No pain, No nausea, No vomiting, No diarrhea Musculoskeletal: No joint pain, No swelling Genitourinary - Female: No dysuria, No urinary frequency Neurologic: + numbness/tingling (in right hand. ), No paralysis, No weakness Integumentary: No rash, No itch Physical Exam: General Appearance: WD/WN, no apparent distress Eyes: PERRL, EOMI ENT: hearing grossly normal, pharynx normal Respiratory/Chest: lungs clear, normal breath sounds, no respiratory distress Cardiovascular: regular rate, rhythm, no murmur Abdomen / GI: non tender, soft, no organomegaly Extremities: normal inspection, no calf tenderness, no pedal edema 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: alert, normal mood/affect, normal reflexes, oriented x 3 Skin: normal color, warm/dry, no rash Hospital Course Pt was admitted in the early hours of 05/08/17 following a syncopal episode at home. She did not hit her head. Upon arrival to the ED she was hypotensive, which is likely 2/2 taking BP medications while NPO for a procedure. She was also found to be hyponatremic and hypokalemic. She had a Cr of 1.5 which was elevated for her. She was given IV NSS + K, and responded well. She ate a normal breakfast and continued with IV hydration. At noon on 05/08/17 her Na, K and Cr levels had returned to normal. She was then discharged home and encouraged to f/u with Dr. Oscar and her PCP outpatient. Total Time Spent: Greater than 30 minutes This includes examination of the patient, discharge planning, medication reconciliation, and communication with other providers. Discharge Instructions Please refer to the electronic Patient Visit Report (Discharge Instructions) for additional information. Follow-Up We have discontinued your hydrochlorothiazide. You will no longer be taking this medication. Please also stop your Lisinopril. This has been replaced with Losartan. Please picker/puller this medication from the pharmacy. Be sure to make an appointment with your family doctor. Keep your regularly scheduled appointment with Dr. Oscar. Keep your already scheduled appointment with the Blood Pressure specialist in [place] in July.
[2017-05-08] MEDS ORDERED: ATORVASTATIN 20 MG TAB PO SCH (21:00)
== END 2017-05-08 14:11 | disposition home or self-care (01) ==
LOC: C.EDB 00:44 → C.2T 03:34 → EDBEDREQSVC 03:35 → EDBEDREQ 03:35 → ENRESERV 04:04
PROVIDERS: ADMIT Student in an Organized Health Care Education/Training Program; ATTEND Internal Medicine
DX: I95.9 Hypotension, unspecified (principal); N17.9 Acute kidney failure, unspecified; E87.6 Hypokalemia; E87.1 Hypo-osmolality and hyponatremia; Z79.82 Long term (current) use of aspirin; I10 Essential (primary) hypertension; I25.10 Atherosclerotic heart disease of native coronary artery without angina pectoris; E78.5 Hyperlipidemia, unspecified; F12.90 Cannabis use, unspecified, uncomplicated; Z98.890 Other specified postprocedural states; Z90.710 Acquired absence of both cervix and uterus; Z88.1 Allergy status to other antibiotic agents; Z91.040 Latex allergy status; Z87.891 Personal history of nicotine dependence; Z80.9 Family history of malignant neoplasm, unspecified; Z83.3 Family history of diabetes mellitus; Z82.49 Family history of ischemic heart disease and other diseases of the circulatory system

== ENCOUNTER → 2017-05-26 | Outpatient (CLI) | payer OTHER ==
[~2017-05-26] MED LIST changes: +CZR50 PO; -HYDR25TA5 PO; -LISI-461 PO; -LPR100 PO; +METO100T14 PO
[2017-05-26 17:33] LABS: URINE APPEARANCE CLEAR (CLEAR); URINE BILIRUBIN NEG (NEG); URINE COLOR YELLOW; URINE EPITHELIAL CELL AUTO 0-5 /lpf (0-5); URINE NITRITE NEG (NEG); URINE PH 6.5 (4.5-7.5); UROBILINOGEN NEG (NEG)
[2017-05-26 17:39] LABS: ALT/SGPT 21 U/L (12-78); AST/SGOT 12 U/L (15-37); BLOOD UREA NITROGEN 10 mg/dl (7-18); BUN/CREATININE RATIO 12.3 (10-20); CALCIUM 9.4 mg/dl (8.5-10.1); CARBON DIOXIDE 27 mmol/L (21-32); CHLORIDE 108 mmol/L (98-107); CREATININE 0.83 mg/dl (0.60-1.20); GLUCOSE 112 mg/dl (70-99); POTASSIUM 3.7 mmol/L (3.5-5.1); SODIUM 141 mmol/L (136-145)
[2017-05-26 17:40] LABS: MANUAL MICROSCOPIC REQUIRED? NO; REVIEW REQ? NO
[2017-05-26 17:42] LABS: ALKALINE PHOSPHATASE 62 U/L (45-117)
[2017-05-26 17:45] LABS: CREATININE, URINE 15.6 mg/dl; URINE TOTAL PROTEIN < 5.0 mg/dl (0-11.9)
[2017-05-26 17:48] LABS: HEMATOCRIT 36.1 % (37-47); MEAN CELL VOLUME 97.6 fL (80-100); MEAN CORPUSCULAR HEMOGLOBIN 31.9 pg (25-34); MEAN CORPUSCULAR HGB CONC 32.7 g/dl (32-36); MEAN PLATELET VOLUME 10.4 fL (7.4-10.4); PLATELET COUNT 384 K/uL (130-400); WHITE BLOOD COUNT 7.35 K/uL (4.8-10.8)
== END | disposition home or self-care (01) ==
LOC: C.LABPBG 12:35
PROVIDERS: ATTEND Internal Medicine Nephrology
DX: R79.89 Other specified abnormal findings of blood chemistry (principal); I10 Essential (primary) hypertension

== ENCOUNTER 2017-06-20 17:22 | Inpatient (IN) | payer OTHER ==
[~2017-06-20] VITALS: Ht 170.2 cm; Wt 59.7 kg
--- NOTE | 2017-06-20 17:44 | EMERGENCY ROOM VISIT NOTE ---
History Report prepared by Andres: Rian Magaña Under the Supervision of: Dr. Angelina Gardner D.O. First contact with patient: 17:34 Chief Complaint: HYPERTENSION Stated Complaint: HIGH BLOOD PRESSURE History of Present Illness The patient is a 52 year old female who presents to the Emergency Room with complaints of a persistent illness that started upon waking around 0300 this morning. She says that she has been in-and-out of here with fluctuating blood pressure. The patient notes that she blacked out a month ago from hypotension. She says that around 0300 this morning, she woke up and vomited, and has had multiple episodes throughout the day. She states that her blood pressure has been going up and down all day. The patient adds that she has had a bit of chest pain which started after her first vomiting episode, but the chest pain eases up after each vomiting episode. She says that she has been having diarrhea episodes as well with the vomiting. She notes that she has been dizzy with chills. The patient's notes that the patient's pulse was 110 prior to arrival. 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 She denies any recent medication changes. She also denies any abdominal pain, back pain, blood in her vomit, or hematochezia. She notes a history of a hysterectomy. Source of History: patient, spouse/significant other Onset: Upon waking around 0300 this morning Position: other (global - illness) Quality: other (with fluctuating blood pressure) Timing: other (persistent) Associated Symptoms: + chills, + chest pain, + vomiting, + diarrhea, No abdominal pain, No back pain, No hematochezia Note: Associated symptoms: Dizzy. Denies blood in vomit. Review of Systems See HPI for pertinent positives & negatives. A total of 10 systems reviewed and were otherwise negative. Past Medical & Surgical Medical Problems: (1) MP (acute kidney injury) (2) Atherosclerosis Nos (3) Chronic hypertension (4) Elevated troponin (5) Elevated troponin I level (6) Hypertension Nos (7) HYPERTENSIVE URGENCY (8) Hypertensive urgency, malignant (9) Hypokalemia (10) Hyponatremia (11) Intractable nausea and vomiting (12) Malignant essential hypertension (13) Marijuana dependence (14) Nausea & vomiting (15) Non-ST elevation myocardial infarction (NSTEMI) due to mismatch of myocardial oxygen supply and demand (16) Prolonged QT interval (17) Renal artery stenosis (18) Uncontrolled hypertension Family History Cancer Diabetes mellitus Heart disease Hypertension Lung disease Social History Smoking Status: Current Every Day Smoker Alcohol Use: occasionally Drug Use: marijuana Marital Status: Housing Status: lives with family Occupation Status: employed Current/Historical Medications Scheduled Aspirin (Aspirin Chewable), 81 MG PO DAILY Atorvastatin (Lipitor), 20 MG PO HS Losartan Potassium (Losartan Potassium), 50 MG PO DAILY Metoprolol Tartrate (Lopressor) (Lopressor), 100 MG PO BID Multivitamin (Multivitamin), 1 TAB PO DAILY Scheduled PRN Clonidine Hcl (Catapres), 1 TAB PO Q6H PRN for Hypertension Ondasetron Odt (Zofran Odt), 4 MG SL Q6H PRN for Nausea or Vomiting Allergies Coded Allergies: Doxycycline (Verified Allergy, Unknown, rash, 06/20/17) Iodinated Diagnostic Agents (Verified Allergy, Unknown, `, 06/20/17) Latex1 -Allergic Contact Dermititis (Verified Allergy, Unknown, RASH, ) Meperidine (Verified Allergy, Unknown, HIVES, VOMITING, 06/20/17) Prochlorperazine (Verified Allergy, Unknown, ., 06/20/17) Brandon (Verified Allergy, Unknown, HIVES, 06/20/17) Tomato (Verified Allergy, Unknown, HIVES, 06/20/17) Uncoded Allergies: Hernandez Beans (Allergy, Unknown, HIVES, 11/27/16) Physical Exam Vital Signs Date Time Temp Pulse Resp B/P (MAP) Pulse Ox O2 Delivery O2 Flow Rate FiO2 06/20/17 20:14 117 20 161/112 92 Nasal Cannula 4.0 06/20/17 18:51 108 22 149/109 92 Room Air 06/20/17 18:09 102 06/20/17 17:29 36.6 111 18 162/132 95 Room Air Physical Exam GENERAL: alert, ill appearing, poor dentition, well nourished, no distress, non- toxic EYE EXAM: normal conjunctiva, PERRL and EOM's grossly intact OROPHARYNX: no exudate, no erythema, lips, buccal mucosa, and tongue normal and mucous membranes are dry NECK: supple, no nuchal rigidity, no adenopathy, non-tender LUNGS: Decreased breath sounds, no wheezes rhonchi or rales. Normal chest wall mechanics HEART: no murmurs, S1 normal and S2 normal ABDOMEN: abdomen soft, non-tender, normo-active bowel sounds, no masses, no rebound or guarding. BACK: Back is symmetrical on inspection and there is no deformity, no midline tenderness, no CVA tenderness. SKIN: no rashes and no bruising UPPER EXTREMITIES: upper extremities are grossly normal. LOWER EXTREMITIES: No pitting edema. NEURO EXAM: Normal sensorium, cranial nerves II-XII grossly intact, normal speech, no gross weakness of arms, no gross weakness of legs. Medical Decision & Procedures ER Provider Diagnostic Interpretation: Radiology results have been interpreted by the radiologist and reviewed by me. PA CHEST RADIOGRAPH AND UPRIGHT AND SUPINE AP RADIOGRAPHS OF THE ABDOMEN CLINICAL HISTORY: Nausea, vomiting and diarrhea. COMPARISON STUDY: CT of the abdomen and pelvis December 21, 2016 and chest radiograph April 26, 2017. FINDINGS: Lung volumes are normal. No pneumothorax is identified. There are trace bilateral pleural effusions. Interlobular septal thickening is indicative of pulmonary edema. Cardiomediastinal silhouette is normal. There is no free air. The bowel gas pattern is normal. IMPRESSION: 1. Mild pulmonary edema with trace bilateral pleural effusions. 2. No free air or evidence of bowel obstruction. Electronically signed by: Flynn Shipley M.D. 06/20/2017 7:29 PM Dictated Date/Time: 06/20/2017 7:[address] ANGIOGRAPHY OF THE CHEST, PULMONARY EMBOLUS PROTOCOL CLINICAL HISTORY: Tachycardia, shortness of breath and elevated troponin. COMPARISON STUDY: Chest radiograph April 26, 2017 and June 20, 2017. TECHNIQUE: Following IV administration of 117 mL of Optiray-320, helical axial images of the chest were obtained utilizing the pulmonary embolus protocol. Maximal intensity projections and sagittal and coronal reformats were viewed on an independent 3D workstation. IV contrast was administered without complication. A dose lowering technique was utilized adhering to the principles of ALARA. FINDINGS: No pulmonary emboli are identified. The size of the heart is normal. There is no pericardial effusion. The caliber of the thoracic aorta is normal. Small right and trace left pleural effusions are present. There is extensive diffuse interlobular septal thickening indicative of pulmonary edema. In addition, there are multifocal alveolar opacities throughout the lungs, greater on the right. This suggests alveolar pulmonary edema. Central airways are patent. There is diffuse bronchial wall thickening are likely related to pulmonary edema. Moderate emphysema is present. Bony thorax is unremarkable. Abdomen and pelvis will be reported separately. IMPRESSION: 1. No pulmonary emboli identified. 2. Extensive interstitial pulmonary edema. Bilateral alveolar opacities, greater within the right lung, which favor alveolar pulmonary edema. 3. Small right and trace left pleural effusions. 4. Moderate emphysema Electronically signed by: Flynn Shipley M.D. 06/20/2017 8:30 PM Dictated Date/Time: 06/20/2017 8:[address] OF THE ABDOMEN AND PELVIS WITH CONTRAST CLINICAL HISTORY: Nausea, vomiting and diarrhea. COMPARISON STUDY: CT of the abdomen December 21, 2016 and MRA of the abdomen January 11, 2017. TECHNIQUE: Following IV administration of 117 mL of Optiray-320, axial images of the abdomen and pelvis were obtained from the lung bases to the proximal femurs. Images were reviewed in the axial, sagittal, and coronal planes. IV contrast was administered without complication. A dose lowering technique was utilized adhering to the principles of ALARA. CT DOSE: 509.61 mGy.cm FINDINGS: Visualized portions of the chest demonstrate interstitial pulmonary edema with suspected alveolar edema. Small right and trace left pleural effusions are present. The liver, spleen, adrenal glands, kidneys and pancreas are normal. There is no hydronephrosis. No biliary or pancreatic ductal dilatation is present. There is no pneumatosis, free air or portal venous gas. There is left colon diverticulosis without evidence for acute diverticulitis. There are no suspicious skeletal lesions. There is no lymphadenopathy. IMPRESSION: 1. No acute process within the abdomen or pelvis. 2. Interstitial and alveolar pulmonary edema within visualized portions of the lungs with small right and trace left pleural effusions. Electronically signed by: Flynn Shipley M.D. 06/20/2017 8:43 PM Dictated Date/Time: 06/20/2017 8:40 PM Laboratory Results Test 06/20/17 18:11 06/20/17 18:17 06/20/17 18:42 Prothrombin Time 10.0 SECONDS (9.0-12.0) Prothromb Time International Ratio 0.9 (0.9-1.1) Magnesium Level 1.7 mg/dl (1.8-2.4) Total Bilirubin 0.4 mg/dl (0.2-1) Aspartate Amino Transf (AST/SGOT) 19 U/L (15-37) Alanine Aminotransferase (ALT/SGPT) 19 U/L (12-78) Alkaline Phosphatase 80 U/L (45-117) Pro-B-Type Natriuretic Peptide 5592 pg/ml (0-900) Total Protein 7.4 gm/dl (6.4-8.2) Albumin 3.8 gm/dl (3.4-5.0) Globulin 3.6 gm/dl (2.5-4.0) Albumin/Globulin Ratio 1.1 (0.9-2) Lipase 65 U/L (73-393) Bedside Lactic Acid Venous 4.76 mmol/L (0.90-1.70) Urine Color YELLOW Urine Appearance CLEAR (CLEAR) Urine pH 5.0 (4.5-7.5) Urine Specific [place] 1.024 (1.000-1.030) Urine Protein 2+ (NEG) Urine Glucose (UA) NEG (NEG) Urine Ketones NEG (NEG) Urine Occult Blood 2+ (NEG) Urine Nitrite NEG (NEG) Urine Bilirubin NEG (NEG) Urine Urobilinogen NEG (NEG) Urine Leukocyte Esterase NEG (NEG) Urine WBC (Auto) 1-5 /hpf (0-5) Urine RBC (Auto) 0-4 /hpf (0-4) Urine Hyaline Casts (Auto) 1-5 /lpf (0-5) Urine Epithelial Cells (Auto) 10-20 /lpf (0-5) Urine Bacteria (Auto) NEG (NEG) Laboratory results per my review. Medications Administered Medications (Trade) Dose Ordered Sig/Yeimy Route Start Time Stop Time Status Last Admin Dose Admin Sodium Chloride 1,000 ml @ 999 mls/hr Q1H1M STAT IV 06/20/17 17:45 06/20/17 18:45 DC 06/20/17 18:31 999 MLS/HR Ondansetron HCl (Zofran 8mg Iv) 8 mg NOW STAT IV 06/20/17 17:45 06/20/17 17:47 DC 06/20/17 18:57 8 MG Sodium Chloride 1,000 ml @ 999 mls/hr Q1H1M STAT IV 06/20/17 19:07 06/20/17 20:07 DC 06/20/17 20:26 999 MLS/HR Nitroglycerin (Nitroglycerin 2% Oint) 1 inch NOW ONCE EXT 06/20/17 19:30 06/20/17 19:31 DC 06/20/17 19:38 1 INCH Methylprednisolone Sodium Succinate (Solu-Medrol IV) 80 mg NOW STAT IV 06/20/17 19:37 06/20/17 19:38 DC 06/20/17 19:43 80 MG Diphenhydramine HCl (Benadryl Inj) 25 mg NOW STAT IV 06/20/17 19:37 06/20/17 19:38 DC 06/20/17 19:43 25 MG Pantoprazole Sodium 40 mg/ Syringe 10 ml @ 5 mls/min NOW ONCE IV 06/20/17 20:45 06/20/17 20:46 DC 06/20/17 21:05 5 MLS/MIN Morphine Sulfate (MoRPHine SULFATE INJ) 4 mg NOW STAT IV 06/20/17 20:43 06/20/17 22:17 DC 06/20/17 21:05 4 MG Aspirin (Ecotrin Tab) 325 mg NOW STAT PO 06/20/17 20:43 06/20/17 20:45 DC 06/20/17 22:38 325 MG ECG Indication: vomiting Rate (beats per minute): 92 Rhythm: normal sinus Findings: no acute ischemic change, left axis deviation, no ectopy, other ( normal intervals) Change: 2nd ECG: Sinus tachycardia rate of 108 bpm, left axis deviation, normal intervals, no ischemia, no ectopy. ED Course 1734: The patient was evaluated in room B9. A complete history and physical exam was performed. 1744: Ordered Zofran 8mg IV, NSS 1000 ml @ 999 mls/hr IV. 1906: I reevaluated the patient and her said that the patient went to the bathroom and had chest pain again. 1925: I reevaluated the patient and she is having some chest pain. 1929: Ordered Nitroglycerin 2% Oint 1 inch EXT. 1936: Ordered Benadryl Inj 25 mg IV, Solu-Medrol IV 80 mg. 2041: Upon reevaluation, the patient is resting, and says her pain is a bit better. I discussed the findings and the treatment plan with the patient. She expresses agreement and understanding. She will be evaluated for further management. 2042: Ordered Ecotrin Tab 325 mg PO, Morphine Sulfate Inj 4 mg IV. 2044: Ordered Pantoprazole Sodium 40 mg/Syringe 10 ml @ 5 mls/min IV. 2134: Patient's blood pressure dropped following administration of morphine, IV fluid bolus started. Patient still mentating well. Medical Decision Differential diagnosis: Etiologies such as gastroenteritis, food borne illness, infections, appendicitis , diverticulitis, inflammatory bowel disease, obstruction, GI bleed, biliary pathology, as well as others were entertained. Patient with complicated history of multiple findings today. I feel leukocytosis more likely related to stress reaction from vomiting and diarrhea. Doubt related to bacteremia/sepsis. Unclear if this is a presentation of her anginal equivalent given the elevated troponin. Patient with prior history of mild coronary artery disease seen on cardiac cath, however no stenting or other interventions performed. Patient improved here following medications and IV fluids, although was still having some mild chest pressure following administration of nitroglycerin paste, some morphine added. No other acute GI or pathology noted. Patient admitted for continued monitoring, cardiology evaluation, serial cardiac enzymes, and treatment of symptoms. Patient seen and evaluated by the hospitalist in the emergency room. Medication Reconcilliation Current Medication List: was personally reviewed by me Blood Pressure Screening Patient's blood pressure: Elevated blood pressure Blood pressure disposition: Elevated BP felt to be situational Consults Returned Call: 2100 D/W Dr. Drake. Impression Primary Impression: Chest pain Additional Impressions: Vomiting Diarrhea NSTEMI (non-ST elevated myocardial infarction) HTN (hypertension) Critical Care I have personally spent greater than 35 minutes of critical care time in the direct management of this patient. This includes bedside care, interpretation of diagnostic studies, and testing, discussion with consultants, patient, and family members, and other required patient management activities. This 35 minutes is in excess of all separately billable procedures. Scribe Attestation The scribe's documentation has been prepared under my direction and personally reviewed by me in its entirety. I confirm that the note above accurately reflects all work, treatment, procedures, and medical decision making performed by me. Departure Information Dispostion Being Evaluated By Hospitalist Referrals No Doctor, Assigned (PCP) Patient Instructions [facility] Problem Qualifiers Primary Impression: Chest pain Chest pain type: unspecified Qualified Codes: R07.9 - Chest pain, unspecified Additional Impressions: Vomiting Vomiting type: unspecified Vomiting Intractability: non-intractable Nausea presence: with nausea Qualified Codes: R11.2 - Nausea with vomiting, unspecified Diarrhea Diarrhea type: unspecified type Qualified Codes: R19.7 - Diarrhea, unspecified HTN (hypertension) Hypertension type: essential hypertension Qualified Codes: I10 - Essential ( primary) hypertension
[2017-06-20] MEDS ORDERED: SODIUM CHLORIDE 0.9% 1000ML 1,000 ML IV STA ×2 (17:45→19:07)
[2017-06-20] MEDS ORDERED: ONDANSETRON 8 MG/54 ML D5W IV STA (17:45)
[2017-06-20 18:24] LABS: BASO % 0.2 %; BASO ABS # 0.03 K/uL (0-0.2); COMPLETE YES; HEMATOCRIT 41.1 % (37-47); IG% 0.3 %; LYMPH ABS # 1.26 K/uL (1.2-3.4); MEAN CELL VOLUME 94.1 fL (80-100); MEAN CORPUSCULAR HGB CONC 34.1 g/dl (32-36); MEAN PLATELET VOLUME 10.8 fL (7.4-10.4); MONO % 2.5 %; PLATELET COUNT 399 K/uL (130-400); RED BLOOD COUNT 4.37 M/uL (4.2-5.4); WHITE BLOOD COUNT 18.05 K/uL (4.8-10.8)
[2017-06-20 18:43] LABS: BUN/CREATININE RATIO 16.6 (10-20); CALCIUM 9.6 mg/dl (8.5-10.1); CREATININE 1.02 mg/dl (0.60-1.20); INR 0.9 (0.9-1.1); MAGNESIUM 1.7 mg/dl (1.8-2.4); POTASSIUM 3.9 mmol/L (3.5-5.1)
[2017-06-20 18:50] LABS: ALB/GLOB RATIO 1.1 (0.9-2)
[2017-06-20 19:03] LABS: URINE APPEARANCE CLEAR (CLEAR); URINE BILIRUBIN NEG (NEG); URINE COLOR YELLOW; URINE NITRITE NEG (NEG); URINE SPECIFIC GRAVITY 1.024 (1.000-1.030); UROBILINOGEN NEG (NEG); ZZUR CULT IF INDIC CLEAN CATCH NO
[2017-06-20 19:05] LABS: MANUAL MICROSCOPIC REQUIRED? NO; REVIEW REQ? NO
[2017-06-20] MEDS ORDERED: NITROGLYCERIN OINT 2% 1GM PACKET EXT ONE (19:30)
--- NOTE | 2017-06-20 19:31 | DIAGNOSTIC IMAGING REPORT ---
PA CHEST RADIOGRAPH AND UPRIGHT AND SUPINE AP RADIOGRAPHS OF THE ABDOMEN CLINICAL HISTORY: Nausea, vomiting and diarrhea. COMPARISON STUDY: CT of the abdomen and pelvis December 21, 2016 and chest radiograph April 26, 2017. FINDINGS: Lung volumes are normal. No pneumothorax is identified. There are trace bilateral pleural effusions. Interlobular septal thickening is indicative of pulmonary edema. Cardiomediastinal silhouette is normal. There is no free air. The bowel gas pattern is normal. IMPRESSION: 1. Mild pulmonary edema with trace bilateral pleural effusions. 2. No free air or evidence of bowel obstruction. Electronically signed by: Flynn Shipley M.D. 06/20/2017 7:29 PM Dictated Date/Time: 06/20/2017 7:28 PM
[2017-06-20] MEDS ORDERED: DiphenhydrAMINE HCL 50 MG/ML VIAL IV STA (19:37)
[2017-06-20] MEDS ORDERED: METHYLPREDNISOLONE 125 MG VIAL IV STA (19:37)
[2017-06-20] MEDS ORDERED: OPTIRAY 320 IV PRN (19:45)
--- NOTE | 2017-06-20 20:31 | DIAGNOSTIC IMAGING REPORT ---
CT ANGIOGRAPHY OF THE CHEST, PULMONARY EMBOLUS PROTOCOL CLINICAL HISTORY: Tachycardia, shortness of breath and elevated troponin. COMPARISON STUDY: Chest radiograph April 26, 2017 and June 20, 2017. TECHNIQUE: Following IV administration of 117 mL of Optiray-320, helical axial images of the chest were obtained utilizing the pulmonary embolus protocol. Maximal intensity projections and sagittal and coronal reformats were viewed on an independent 3D workstation. IV contrast was administered without complication. A dose lowering technique was utilized adhering to the principles of ALARA. FINDINGS: No pulmonary emboli are identified. The size of the heart is normal. There is no pericardial effusion. The caliber of the thoracic aorta is normal. Small right and trace left pleural effusions are present. There is extensive diffuse interlobular septal thickening indicative of pulmonary edema. In addition, there are multifocal alveolar opacities throughout the lungs, greater on the right. This suggests alveolar pulmonary edema. Central airways are patent. There is diffuse bronchial wall thickening are likely related to pulmonary edema. Moderate emphysema is present. Bony thorax is unremarkable. Abdomen and pelvis will be reported separately. IMPRESSION: 1. No pulmonary emboli identified. 2. Extensive interstitial pulmonary edema. Bilateral alveolar opacities, greater within the right lung, which favor alveolar pulmonary edema. 3. Small right and trace left pleural effusions. 4. Moderate emphysema. Electronically signed by: Flynn Shipley M.D. 06/20/2017 8:30 PM Dictated Date/Time: 06/20/2017 8:23 PM
[2017-06-20] MEDS ORDERED: MoRPHine SULFATE 4 MG/ML 1 ML CARP\\VIAL IV STA (20:43)
[2017-06-20] MEDS ORDERED: ASPIRIN 325 MG ECTAB PO STA (20:43)
--- NOTE | 2017-06-20 20:44 | DIAGNOSTIC IMAGING REPORT ---
CT OF THE ABDOMEN AND PELVIS WITH CONTRAST CLINICAL HISTORY: Nausea, vomiting and diarrhea. COMPARISON STUDY: CT of the abdomen December 21, 2016 and MRA of the abdomen January 11, 2017. TECHNIQUE: Following IV administration of 117 mL of Optiray-320, axial images of the abdomen and pelvis were obtained from the lung bases to the proximal femurs. Images were reviewed in the axial, sagittal, and coronal planes. IV contrast was administered without complication. A dose lowering technique was utilized adhering to the principles of ALARA. CT DOSE: 509.61 mGy.cm FINDINGS: Visualized portions of the chest demonstrate interstitial pulmonary edema with suspected alveolar edema. Small right and trace left pleural effusions are present. The liver, spleen, adrenal glands, kidneys and pancreas are normal. There is no hydronephrosis. No biliary or pancreatic ductal dilatation is present. There is no pneumatosis, free air or portal venous gas. There is left colon diverticulosis without evidence for acute diverticulitis. There are no suspicious skeletal lesions. There is no lymphadenopathy. IMPRESSION: 1. No acute process within the abdomen or pelvis. 2. Interstitial and alveolar pulmonary edema within visualized portions of the lungs with small right and trace left pleural effusions. Electronically signed by: Flynn Shipley M.D. 06/20/2017 8:43 PM Dictated Date/Time: 06/20/2017 8:40 PM
[2017-06-20] MEDS ORDERED: PANTOprazole INJ 40 MG in SYRINGE 0 ML IV ONE (20:45)
[2017-06-20] MEDS ORDERED: CLONIDINE HCL 0.1 MG TAB PO PRN (21:15)
[2017-06-20] MEDS ORDERED: ONDANSETRON INJ 2 MG/ML 2 ML VIAL IV PRN ×2 (21:15)
[2017-06-20] MEDS ORDERED: NITROGLYCERIN 0.4 MG SL PER TAB CHARGE SL PRN (21:15)
[2017-06-20] MEDS ORDERED: NITROGLYCERIN OINT 2% 1GM PACKET EXT SCH (21:15)
[2017-06-20] MEDS ORDERED: POLYETHYLENE (MIRALAX) 17 GM PACK PO PRN (21:15)
[2017-06-20] MEDS ORDERED: ACETAMINOPHEN 325 MG TAB PO PRN (21:15)
[2017-06-20] MEDS ORDERED: ALUMINUM/MAGNESIUM/SIMETH (MAALOX MAX) 30 ML UDC PO PRN (21:15)
--- NOTE | 2017-06-20 21:21 | History and Physical ---
History & Physical Date & Time of Service: Jun 20, 2017 at 21:18 Chief Complaint: High Blood Pressure Primary Care Physician: Yashira Arizmendi C.R.N.P. History of Present Illness Source: patient 52 yo F with labile hypertension, follows w/Dr. Oscar, hx of MA about 3 years ago (had a cath but no stents placed), ex-smoker, and frequent marijuana user who presents with vomiting since 3am today, and then developed chest pain. Her vomiting was intermittent and frequent throughout the day. She denies any blood in her vomit. She reports the chest pain is in the left side of her chest, 4/10 severity throughout the entire time it has been present, does not radiate, and only associated with nausea. Currently, she reports feeling thirsty and wants to try PO fluids. On review of previous records, she has presented for similar issues in the past , but her troponin was never this high. She had an exercise stress echo a few months ago which showed a hypertensive response to exercise (no EF noted). She had a cardiac cath in Jun 2014, which revealed a 30% mid right coronary stenosis , and 30% proximal LAD stenosis. NOTE: After receiving a 4mg dose of morphine, she became hypotensive, SBPs around 86. Given 500cc bolus of LR. 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 She also has black mold in her house. Smoking Status: Current Every Day Smoker Smokeless Tobacco Use: No Alcohol Use: none Drug Use: marijuana Marital Status: Housing status: lives with family Occupational Status: employed Immunizations History of Influenza Vaccine: Unknown History of Tetanus Vaccine?: Unknown History of Pneumococcal: Unknown History of Hepatitis B Vaccine: Unknown Multi-Drug Resistant Organisms History of MDRO: No Allergies Coded Allergies: Doxycycline (Verified Allergy, Unknown, rash, 06/20/17) Iodinated Diagnostic Agents (Verified Allergy, Unknown, `, 06/20/17) Latex1 -Allergic Contact Dermititis (Verified Allergy, Unknown, RASH, ) Meperidine (Verified Allergy, Unknown, HIVES, VOMITING, 06/20/17) Prochlorperazine (Verified Allergy, Unknown, ., 06/20/17) [place] (Verified Allergy, Unknown, HIVES, 06/20/17) Tomato (Verified Allergy, Unknown, HIVES, 06/20/17) Uncoded Allergies: Hernandez Beans (Allergy, Unknown, HIVES, 11/27/16) Home Medications Scheduled Aspirin (Aspirin Chewable), 81 MG PO DAILY Atorvastatin (Lipitor), 20 MG PO HS Losartan Potassium (Losartan Potassium), 50 MG PO DAILY Metoprolol Tartrate (Lopressor) (Lopressor), 100 MG PO BID Multivitamin (Multivitamin), 1 TAB PO DAILY Scheduled PRN Clonidine Hcl (Catapres), 1 TAB PO Q6H PRN for Hypertension Ondasetron Odt (Zofran Odt), 4 MG SL Q6H PRN for Nausea or Vomiting Review of Systems See HPI for pertinent positives & negatives. A total of 10 systems reviewed and were otherwise negative. Physical Exam Vital Signs Date Time Temp Pulse Resp B/P (MAP) Pulse Ox O2 Delivery O2 Flow Rate FiO2 06/20/17 20:14 117 20 161/112 92 Nasal Cannula 4.0 06/20/17 18:51 108 22 149/109 92 Room Air 06/20/17 18:09 102 06/20/17 17:29 36.6 111 18 162/132 95 Room Air General Appearance: WD/WN, + mild distress, + thin Head: normocephalic, atraumatic Eyes: normal inspection, PERRL ENT: hearing grossly normal Neck: supple, no JVD Respiratory/Chest: chest non-tender, lungs clear, normal breath sounds Cardiovascular: no edema, no murmur, normal peripheral pulses, + tachycardia Abdomen/GI: normal bowel sounds, non tender, soft Back: no CVA tenderness, no muscle spasm, normal range of motion Extremities/Musculoskelatal: no calf tenderness, no pedal edema Neurologic/Psych: alert, normal mood/affect, normal reflexes, oriented x 3 Skin: no rash Diagnostics Laboratory Results Results Past 24 Hours Test 06/20/17 18:11 06/20/17 18:17 06/20/17 18:42 06/20/17 21:16 Range/Units White Blood Count 18.05 4.8-10.8 K/uL Red Blood Count 4.37 4.2-5.4 M/uL Hemoglobin 14.0 12.0-16.0 g/dL Hematocrit 41.1 37-47 % Mean Corpuscular Volume 94.1 80-100 fL Mean Corpuscular Hemoglobin 32.0 25-34 pg Mean Corpuscular Hemoglobin Concent 34.1 32-36 g/dl Platelet Count 399 130-400 K/uL Mean Platelet Volume 10.8 7.4-10.4 fL Neutrophils (%) (Auto) 90.0 % Lymphocytes (%) (Auto) 7.0 % Monocytes (%) (Auto) 2.5 % Eosinophils (%) (Auto) 0.0 % Basophils (%) (Auto) 0.2 % Neutrophils # (Auto) 16.26 1.4-6.5 K/uL Lymphocytes # (Auto) 1.26 1.2-3.4 K/uL Monocytes # (Auto) 0.45 0.11-0.59 K/uL Eosinophils # (Auto) 0.00 0-0.5 K/uL Basophils # (Auto) 0.03 0-0.2 K/uL RDW Standard Deviation 44.2 36.4-46.3 fL RDW Coefficient of Variation 12.8 11.5-14.5 % Immature Granulocyte % (Auto) 0.3 % Immature Granulocyte # (Auto) 0.05 0.00-0.02 K/uL Prothrombin Time 10.0 9.0-12.0 SECONDS Prothromb Time International Ratio 0.9 0.9-1.1 Sodium Level 143 136-145 mmol/L Potassium Level 3.9 3.5-5.1 mmol/L Chloride Level 107 98-107 mmol/L Carbon Dioxide Level 21 21-32 mmol/L Anion Gap 14.0 3-11 mmol/L Blood Urea Nitrogen 17 7-18 mg/dl Creatinine 1.02 0.60-1.20 mg/dl Est Creatinine Clear Calc Drug Dose 61.8 ml/min Estimated GFR () 73.8 Estimated GFR (Non- 63.6 BUN/Creatinine Ratio 16.6 10-20 Random Glucose 149 70-99 mg/dl Calcium Level 9.6 8.5-10.1 mg/dl Magnesium Level 1.7 1.8-2.4 mg/dl Total Bilirubin 0.4 0.2-1 mg/dl Aspartate Amino Transf (AST/SGOT) 19 15-37 U/L Alanine Aminotransferase (ALT/SGPT) 19 12-78 U/L Alkaline Phosphatase 80 45-117 U/L Troponin I 2.310 0-0.045 ng/ml Pro-B-Type Natriuretic Peptide 5592 0-900 pg/ml Total Protein 7.4 6.4-8.2 gm/dl Albumin 3.8 3.4-5.0 gm/dl Globulin 3.6 2.5-4.0 gm/dl Albumin/Globulin Ratio 1.1 0.9-2 Lipase 65 73-393 U/L Bedside Lactic Acid Venous 4.76 0.90-1.70 mmol/L Urine Color YELLOW Urine Appearance CLEAR CLEAR Urine pH 5.0 4.5-7.5 Urine Specific [place] 1.024 1.000-1.030 Urine Protein 2+ NEG Urine Glucose (UA) NEG NEG Urine Ketones NEG NEG Urine Occult Blood 2+ NEG Urine Nitrite NEG NEG Urine Bilirubin NEG NEG Urine Urobilinogen NEG NEG Urine Leukocyte Esterase NEG NEG Urine WBC (Auto) 1-5 0-5 /hpf Urine RBC (Auto) 0-4 0-4 /hpf Urine Hyaline Casts (Auto) 1-5 0-5 /lpf Urine Epithelial Cells (Auto) 10-20 0-5 /lpf Urine Bacteria (Auto) NEG NEG Diagnostic Radiology PA CHEST RADIOGRAPH AND UPRIGHT AND SUPINE AP RADIOGRAPHS OF THE ABDOMEN IMPRESSION: 1. Mild pulmonary edema with trace bilateral pleural effusions. 2. No free air or evidence of bowel obstruction. CT ANGIOGRAPHY OF THE CHEST, PULMONARY EMBOLUS PROTOCOL 1. No pulmonary emboli identified. 2. Extensive interstitial pulmonary edema. Bilateral alveolar opacities, greater within the right lung, which favor alveolar pulmonary edema. 3. Small right and trace left pleural effusions. 4. Moderate emphysema CT OF THE ABDOMEN AND PELVIS WITH CONTRAST IMPRESSION: 1. No acute process within the abdomen or pelvis. 2. Interstitial and alveolar pulmonary edema within visualized portions of the lungs with small right and trace left pleural effusions. EKG Sinus tachycardia, 108bpm, no ST elevation Possible Left atrial enlargement Left axis deviation Abnormal ECG When compared with ECG of 20-JUN-2017 17:52, (unconfirmed) QT has lengthened QTc 508 Impression Assessment and Plan 52 yo F with hypertension who presents with chest pain after a day of vomiting and troponin elevation. DDx includes NSTEMI from demand/supply mismatch vs obstructive CAD, and vomiting potentially from cannabinoid hyperemesis vs gastroenteritis vs GI bleed. Note: after getting a dose of morphine for pain, her BP dropped to 86 systolic and her pulse ox to 89%. 500cc bolus of LR ordered. NSTEMI - Trend cardiac enzymes - Heparin drip - Cardiology consult - Received aspirin in ED. Will continue her daily aspirin, beta blaine, and statin. - NPO after midnight Vomiting - Pt allergic to Compazine. Has received Zofran but QTc is already prolonged, so will use Reglan for vomiting PRN. - Maintenance fluids due to new hypoxia after boluses Hypoxia - Pt did not have an O2 requirement on arrival, then after 2 x fluid boluses, now requiring 4-6L O2. Imaging reports pulmonary edema. - Will order transthoracic echo Hypotension w/hx of labile hypertension - Holding home regime of Losartan, Metoprolol and PRN Clonidine Cannabis use - Encouraged to stop this as it could contribute to her multiple issues Code status: Full VTE: Heparin drip Dispo: Admitted to Tele Attending Addendum: I have physically seen and examined this patient, have directed the resident's medical activities, and agree with the H&P as noted above with the following exceptions as noted. The patient is awake, alert and oriented 3, well-developed and well-nourished , normocephalic and atraumatic, lying in bed and in no acute distress. HEENT--PERRL, EOMI, mucous membranes and oropharynx dry. Neck--supple, no JVD or bruits, thyroid normal, trachea midline, no adenopathy. Heart--tachycardic and regular, no murmurs, rubs or gallops. Lungs-- clear breath sounds bilaterally, no respiratory distress, no accessory muscle use. Abdomen--normal bowel sounds and soft, nontender and nondistended, no hernias or masses, no organomegaly. Extremities--no cyanosis, clubbing or edema. There are good distal pulses b/l. Dermatologic--normal skin turgor, normal color, warm and dry, no abnormal lymph nodes, no rash. Neurologic--cranial nerves II through XII grossly intact. Rheumatologic--normal range of motion. Psychiatric--normal affect. Assessment and Plan: NSTEMI, likely secondary to supply demand mismatch-- The patient will be admitted to telemetry for serial cardiac enzymes, cardiac rhythm monitoring and a 2-D echocardiogram with Dopplers. Initial troponin elevated at 2.310, with normal-appearing EKG. Continue aspirin chewable 81 mg by mouth daily, and metoprolol tartrate 100 mg by mouth twice a day. Continue heparin drip begun in the emergency department per protocol Blood pressure was initially elevated at 163/120s in the ED, but after administration of morphine 4 mg IV dropped to 86/64. Continue IV fluid rehydration, and a pressure should drop further, we'll transfer to the ICU. Intermittent vomiting/question of can have known cannabinoid hyperemesis syndrome/known exposure to black mold in [id number]-- Treatment as noted with Sandra when necessary. 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 She lives in a very old house, and her who is a contractor, has found black mold in the past. I suggest that she have him again look for black mold in any other potential neurotoxic exposures in her home as well. Next Labile blood pressure/is hypotensive after receiving IV morphine. Hold all antihypertensive medications, and hydrate with IV fluids until improved. Level of Care Telemetry Advanced Directives Existing Advance Directive: No Existing Living Will: No Existing Power of [place]scre[place] Man: No Resuscitation Status FULL RESUSCITATION VTE Prophylaxis VTE Risk Assessment Done? Y/N: Yes Risk Level: Moderate Given or contraindicated: SCD's Resident Tracking Resident Involvement: Resident Care Provided Care Provided: Adult Hospital Medicine
[2017-06-20] MEDS ORDERED: SODIUM CHLORIDE 0.9% 1000ML 1,000 ML IV SCH (21:30)
[2017-06-20] MEDS ORDERED: SODIUM CHLORIDE 0.9% 500ML 500 ML IV STA (21:33)
[2017-06-20] MEDS ORDERED: LACTATED RINGER'S 1000ML 1,000 ML IV SCH (21:45)
[2017-06-20] MEDS: HEPARIN 25,000 UNIT/500ML D5W 500 ML IV PRN (22:52)
[2017-06-20 23:00] VITALS: BP 92/60; PULSE 88; TEMP 37.5; O2SAT 94; Ht 170.2 cm; Wt 59.7 kg
[2017-06-20 23:14] LABS: PARTIAL THROMBOPLASTIN RATIO 0.9
[2017-06-20] MEDS: SODIUM CHLOR 0.45% + 20MEQ KCL 1,000 ML IV SCH (23:20)
[2017-06-21] VITALS (15 sets, daily range): BP systolic 95–169; BP diastolic 60–124; PULSE 82–117; TEMP 37–37.7; O2SAT 90–100
[2017-06-21 04:08] LABS: BASO % 0.1 %; BASO ABS # 0.01 K/uL (0-0.2); COMPLETE YES; HEMATOCRIT 35.5 % (37-47); IG% 0.2 %; LYMPH % 11.3 %; MEAN CELL VOLUME 93.9 fL (80-100); MEAN CORPUSCULAR HEMOGLOBIN 31.5 pg (25-34); MEAN CORPUSCULAR HGB CONC 33.5 g/dl (32-36); MONO % 2.9 %; NEUT % 85.5 %; PLATELET COUNT 278 K/uL (130-400); RED BLOOD COUNT 3.78 M/uL (4.2-5.4); WHITE BLOOD COUNT 13.32 K/uL (4.8-10.8)
[2017-06-21 04:13] LABS: PARTIAL THROMBOPLASTIN RATIO 1.2
[2017-06-21 04:30] LABS: BUN/CREATININE RATIO 23.2 (10-20); CALCIUM 8.6 mg/dl (8.5-10.1); CREATININE 0.75 mg/dl (0.60-1.20)
[2017-06-21 04:52] LABS: CHOLESTEROL/HDL RATIO 2.3; CKMB/CK RATIO 8.9 (0-3.0)
[2017-06-21] MEDS: HEPARIN 25,000 UNIT/500ML D5W 500 ML IV PRN (05:41)
[2017-06-21] MEDS ORDERED: HEPARIN IV BOLUS 5,000 UNIT in SYRINGE 0 ML IV ONE (05:45)
[2017-06-21] MEDS: SODIUM CHLOR 0.45% + 20MEQ KCL 1,000 ML IV SCH ×2 (07:40→18:12)
[2017-06-21] MEDS: MULTIVITAMIN TAB PO SCH (07:41)
[2017-06-21] MEDS ORDERED: METOPROLOL TARTRATE 100 MG TAB PO SCH (09:00)
[2017-06-21] MEDS ORDERED: LOSARTAN POTASSIUM 50 MG TAB PO SCH (09:00)
[2017-06-21 10:23] LABS: CKMB/CK RATIO 9.4 (0-3.0)
[2017-06-21] MEDS ORDERED: NITROGLYCERIN 0.4 MG SL PER TAB CHARGE ONE (11:23)
--- NOTE | 2017-06-21 11:26 | ECHOCARDIOGRAM REPORT ---
*NOTICE TO RECEIVING [employer] This information is strictly Confidential and protected under [place] law. [place] law prohibits you from making any further disclosure of this information unless further disclosure is expressly permitted by the written consent of the person to whom it pertains or is authorized by law. A general authorization for the release of medical or other information is not sufficient for this purpose. Hospital accepts no responsibility if the information is made available to any other person, INCLUDING THE PATIENT. Interpretation Summary * Name: ONEL MONTOYA Study Date: 06/21/2017 06:47 AM BP: 102/65 mmHg * Patient Location: C.2T\S\E215\S\1 HR: 81 * : 1965 (M/d/yyyy) Gender: Female Height: 67 in * Age: 52 yrs Ethnicity: CA Weight: 132 lb * Ordering Physician: Shreya Judd * Referring Physician: Self, Referred * Performed By: Amadou Montoya RDCS * * Reason For Study: CHF * BSA: 1.7 m2 * -- Conclusions -- * 1. Normal left ventricular size with moderately reduced systolic function. Estimated EF 40%. Basal segments have normal wall motion. Mid to distal wall segments are hypokinetic with severe hypokinesis to akinesis of distal anterior and distal lateral wall segments. No left ventricular hypertrophy. * 2. There is mild mitral regurgitation. * 3. Normal estimated right ventricular systolic pressure; RVSP 31 mmHg. * 4. Compared to prior study on 11/28/16, LV systolic function is now moderately reduced and there are now wall motion abnormalities as noted. Procedure Details * A complete two-dimensional transthoracic echocardiogram was performed (2D, M-mode, Doppler and color flow Doppler). * The study was technically adequate. Left Ventricle * Normal left ventricular size with moderately reduced systolic function. Estimated EF 40%. Basal segments have normal wall motion. Mid to distal wall segments are hypokinetic with severe hypokinesis to akinesis of distal anterior and distal lateral wall segments. No left ventricular hypertrophy. Right Ventricle * The right ventricle is normal in size and function. * The right ventricular systolic function is normal as assessed by tricuspid annular plane systolic excursion (TAPSE) (normal >1.5 cm). Atria * The left atrial size is normal. * Right atrial size is normal. * There is no evidence of atrial septal defect, but resolution does not allow assessment for a patent foramen ovale. Mitral Valve * The mitral valve leaflets appear normal. There is no evidence of stenosis, fluttering, or prolapse. * There is mild mitral regurgitation. Tricuspid Valve * The tricuspid valve is not well visualized, but is grossly normal. * There is no tricuspid stenosis. * There is mild tricuspid regurgitation. Aortic Valve * The aortic valve is trileaflet. * The aortic valve is normal in structure and function. * No hemodynamically significant valvular aortic stenosis. * No aortic regurgitation is present. Pulmonic Valve * The pulmonary valve is inadequately visualized, but the Doppler data is adequate for interpretation. * There is no pulmonic valvular stenosis. * There is no significant pulmonary regurgitation. Great Vessels * Aortic arch of normal dimension. * The aortic root is normal size. * Normal pulmonary venous flow pattern. Pericardium/Pleural * There is no pericardial effusion. Great Vessels * Normal inferior vena cava size and collapsability with sniff indicates a normal right atrial pressure of 3 mmHg Left Ventricular Diastolic Function * Diastolic dysfunction, Grade II (pseudonormalization pattern). MMode 2D Measurements and Calculations IVSd 0.98 cm IVSs 1.3 cm LVIDd 4.8 cm LVIDs 3.2 cm LVPWd 0.95 cm LVPWs 1.4 cm IVS/LVPW 1.0 FS 33.9 % EDV(Teich) 107.5 ml ESV(Teich) 40.1 ml EF(Teich) 62.7 % EDV(cubed) 110.6 ml ESV(cubed) 31.9 ml EF(cubed) 71.2 % % IVS thick 34.7 % % LVPW thick 47.1 % LV mass(C)d 161.7 grams LV mass(C)dI 95.4 grams/m\S\2 LV mass(C)s 143.3 grams LV mass(C)sI 84.6 grams/m\S\2 SV(Teich) 67.5 ml SI(Teich) 39.8 ml/m\S\2 SV(cubed) 78.7 ml SI(cubed) 46.4 ml/m\S\2 EPSS 0.58 cm Ao root diam 3.0 cm Ao root area 7.0 cm\S\2 ACS 1.9 cm LA dimension 3.3 cm asc Aorta Diam 2.9 cm LA/Ao 1.1 LVOT diam 2.0 cm LVOT area 3.1 cm\S\2 LVAd ap4 27.5 cm\S\2 LVLd ap4 7.8 cm EDV(MOD-sp4) 81.5 ml EDV(sp4-el) 82.7 ml LVAs ap4 20.6 cm\S\2 LVLs ap4 7.1 cm ESV(MOD-sp4) 48.8 ml ESV(sp4-el) 51.0 ml EF(MOD-sp4) 40.2 % EF(sp4-el) 38.3 % LVAd ap2 30.6 cm\S\2 LVLd ap2 8.0 cm EDV(MOD-sp2) 94.1 ml EDV(sp2-el) 99.3 ml LVAs ap2 22.4 cm\S\2 LVLs ap2 7.1 cm ESV(MOD-sp2) 55.6 ml ESV(sp2-el) 59.4 ml EF(MOD-sp2) 40.9 % EF(sp2-el) 40.2 % LVLd %diff 3.2 % EDV(MOD-bp) 89.5 ml LVLs %diff 0.78 % ESV(MOD-bp) 52.5 ml EF(MOD-bp) 41.4 % SV(MOD-sp4) 32.8 ml SI(MOD-sp4) 19.3 ml/m\S\2 SV(MOD-sp2) 38.5 ml SI(MOD-sp2) 22.7 ml/m\S\2 SV(MOD-bp) 37.0 ml SI(MOD-bp) 21.9 ml/m\S\2 SV(sp4-el) 31.7 ml SI(sp4-el) 18.7 ml/m\S\2 SV(sp2-el) 40.0 ml SI(sp2-el) 23.6 ml/m\S\2 Doppler Measurements and Calculations MV E max ian 94.9 cm/sec MV A max ian 70.9 cm/sec MV E/A 1.3 MV dec time 0.16 sec Ao V2 max 127.2 cm/sec Ao max PG 6.5 mmHg Ao max PG (full) 2.8 mmHg LORENA(V,A) 2.3 cm\S\2 LORENA(V,D) 2.3 cm\S\2 LV V1 max PG 3.6 mmHg LV V1 max 95.5 cm/sec PA V2 max 104.2 cm/sec PA max PG 4.3 mmHg PA acc slope 574.6 cm/sec\S\2 PA acc time 0.14 sec TR max ian 263.7 cm/sec RVSP(TR) 30.8 mmHg RAP systole 3.0 mmHg PA pr(Accel) 16.5 mmHg
[2017-06-21] MEDS: METOCLOPRAMIDE HCL INJ 5 MG/ML 2 ML VIAL IV PRN ×2 (11:29→17:05)
[2017-06-21] MEDS: NITROGLYCERIN 0.4 MG SL PER TAB CHARGE SL PRN ×2 (11:29→11:34)
[2017-06-21 12:19] LABS: PARTIAL THROMBOPLASTIN RATIO 3.6
[2017-06-21] MEDS ORDERED: ISOSORBIDE MONONITRATE 30 MG TABCR PO ONE (12:45)
[2017-06-21] MEDS ORDERED: METOPROLOL SUCC 50MG EXT REL TAB PO STA (12:45)
--- NOTE | 2017-06-21 13:54 | CARDIOLOGY CONSULTATION ---
DATE OF CONSULTATION: 06/21/2017 DATE OF CONSULTATION: 06/21/2017 TIME: 12:54 p.m. CONSULTING PHYSICIAN: Dr. Judd. REASON FOR CONSULTATION: Elevated troponin. PRIMARY HOSPITALIST: Dr. Bernal. PRIMARY OVERNIGHT HOUSEPERSON: Dr. Holland. HISTORY OF PRESENT ILLNESS: Ms. Velasquez is a pleasant 52-year-old female with a history of mild nonobstructive CAD, hypertension, and dyslipidemia who presented to [facility] with vomiting and diarrhea. She states that she was awakened Friday morning at 3:00 a.m. with vomiting and diarrhea. Every time she vomited she would have an episode of diarrhea. She estimates that she vomited at least 12 times yesterday. She came to the Emergency Department last evening due to the fact that she had continued symptoms and elevated blood pressure. While in the Emergency Department, she developed central chest pain described as a pressure. She was given nitroglycerin which she states had no relief. She was then given morphine which helped her symptoms, but then reportedly developed hypotension. With the chest pain, she felt shortness of breath as well as diaphoresis. Her last episode of vomiting was in the ER. Since then, she continues to dry heave but has not had any diarrhea today. This morning she had another episode of central chest discomfort; however, this time it radiated to the back. She was given 3 nitroglycerins and her pain eventually subsided. She is currently pain free. After each episode of chest discomfort she has an episode of vomiting or dry heaving. She has not noted any specific positional trigger to her chest discomfort, but she admits that she has not been necessarily paying attention to that as she does not feel well. She is currently without shortness of breath. She denies orthopnea, syncope, near syncope, or palpitations. She denies edema. She admits that she has not been eating or drinking since she has had her GI issues. 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 In the past, she had similar chest discomfort and underwent a cardiac catheterization in 2013, which demonstrated mild nonobstructive CAD involving the proximal LAD 30% and mid RCA 30%. Her oral antihypertensive agents have been held throughout this hospital stay as she did have hypotension once again following morphine. She initially was found to be hypertensive with a blood pressure 162/132 but after the morphine her blood pressure dropped to 84/51 for a low. Since then this morning she has been hypertensive once again. She denies melena, hematochezia, hematuria, or other bleeding. She denies fevers but admits that she does have shaking chills intermittently. She has had 2 recent deaths in the family. Her mother in February and her [id number] 05/17/2017. She denies any recent emotional upset though in the last few days. REVIEW OF SYSTEMS: As above and review of systems otherwise negative/unremarkable. PAST MEDICAL HISTORY: 1. Nonobstructive CAD with a proximal LAD 30%, mid RCA 30% in the 2014 cardiac catheterization. 2. Hypertension. 3. Dyslipidemia. 4. Anxiety disorder. 5. Demyelinating disorder. 6. Diverticulosis. 7. Thyroid nodules. HOME MEDICATIONS: Include metoprolol tartrate 100 mg twice daily, aspirin 81 mg daily, losartan 50 mg daily, atorvastatin 20 mg daily, sertraline 50 mg daily, clonidine 0.1 mg every 6 hours as needed for systolic blood pressure greater than 180. HOSPITAL MEDICATIONS: Include atorvastatin 20 mg at bedtime, heparin drip, potassium chloride in normal saline 125 mL per hour. She was also given aspirin 325 mg last evening. ALLERGIES: INCLUDE DOXYCYCLINE, MEPERIDINE, AND IV DYE WHICH CAUSED HIVES. SOCIAL HISTORY: Denies tobacco or regular alcohol abuse. She consumes alcohol only rarely. She does use marijuana occasionally. She denies any IV drugs or other illicit drugs. She lives at home with her and 24-year-old son. She also has a 20-year-old daughter. She is currently alone in her hospital room. 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 FAMILY HISTORY: Her father had some form of heart disorder. PHYSICAL EXAMINATION: VITAL SIGNS: Temperature 37.1 degrees, heart rate 104 beats per minute, blood pressure 152/107 mmHg following nitroglycerin. Before that it was 167/124 mmHg and oxygen saturation 90% on 2 liters per nasal cannula. Weight 62.8 kilograms. GENERAL: No acute distress. She is alert and oriented. HEAD, EYES, EARS, NOSE, AND THROAT: Anicteric sclerae. NECK: No appreciable JVD. No bruits. Normal carotid upstrokes bilaterally. CARDIAC EXAMINATION: PMI was nondisplaced. There was no ventricular heave. Regular, normal S1 and S2. There is also S3. No murmurs. LUNGS: Bibasilar rales. ABDOMEN: Soft, nontender, nondistended, normoactive bowel sounds, no bruits noted. EXTREMITIES: No cyanosis or pitting edema. No palpable cords. 2+ radial pulses bilaterally. 2+ dorsalis pedis pulses bilaterally. PSYCHIATRIC: Affect appears appropriate. LABORATORY DATA: Sodium 140, potassium 4, BUN 17, creatinine 0.75. Lactic acid 3.9, peak troponin 5.77. Triglycerides 101, total cholesterol 144, LDL 60, HDL 64. ProBNP 5592, AST 19, ALT 19. White blood cell count was initially 18.05. Most recent white blood cell count 13.3, hemoglobin 11.9, platelets 278, PTT is 94.8. CTA of the chest report reviewed. No pulmonary emboli. Extensive interstitial pulmonary edema. Bilateral alveolar opacities, greater within the right lung which favor alveolar pulmonary edema per radiology. Small right and trace left pleural effusions. Moderate emphysema. CT abdomen/pelvis per radiology no acute process within the abdomen or pelvis. Echocardiogram images were personally reviewed. Moderately reduced LV systolic function with an EF of 40%. Basal segments have normal wall motion. The mid to distal wall segments are hypokinetic with severe hypokinesis to akinesis of the distal anterior and distal lateral wall segments. Mild MR. RVSP 31. Telemetry personally reviewed. Sinus rhythm and this morning noted to be sinus tachycardia. ECG: Personally reviewed. ECG #1 06/20/2017 at 1752, sinus rhythm at 92 beats per minute. Left axis deviation. ECG #2 06/20/2017 at 1920, sinus tachycardia 108 beats per minute. Left axis deviation. ECG #3 06/21/2017 at 5:23 a.m., sinus rhythm at 85 beats per minute. Prolonged QT. ECG 06/21/2017 at 8:06 a.m., sinus rhythm, 77 beats per minute. Prolonged QT. Repeat ECG 06/21/2017 at 11:03 a.m. this was taken during an episode of chest discomfort. Sinus rhythm, 100 beats per minute. Left axis deviation. ASSESSMENT AND PLAN: 1. Non-ST elevation myocardial infarction: She has not presented with acute coronary syndrome in fact presented with vomiting and diarrhea. Her troponins are elevated however. This could represent myocarditis. Would recommend continuation of aspirin 81 mg daily. No urgent indication for cardiac catheterization. She has no significant ST abnormalities and is currently pain free. Because nitroglycerin seemed of offer some benefit this morning, although not last night, isosorbide mononitrate 30 mg daily initiated. Would recommend reinitiating her beta blaine as well. 2. Cardiomyopathy: Could be secondary to myocarditis from acute viral illness. Will resume her beta blaine but change metoprolol tartrate to metoprolol succinate at her home dose. If her blood pressure tolerates, would resume losartan, which was held due to hypotension overnight. She appears euvolemic, but does have some rales. Would recommend decreasing her IV fluids which was discussed with primary service. 3. Myocarditis: Suspect possible myocarditis given her viral illness and presenting symptoms with GI issues. She had mild nonobstructive CAD 3 years ago during a cardiac catheterization. The degree of troponin elevation does not correlate with the degree of myocardium involved on her echocardiogram and she has no ST changes to suggest ischemic etiology currently. Supportive care recommended. Metoprolol succinate and then resume losartan if blood pressure tolerates metoprolol succinate. If she develops ST changes or symptoms appear to be more ischemic in nature, could consider cardiac catheterization, but not recommended at this time. 4. Dyslipidemia: Recommend high intensity statin therapy. 5. Coronary artery disease: High intensity statin therapy recommended. Mild nonobstructive CAD in 2014. Continue medical therapy as outlined. 6. Hypertension: Resume medications as noted above. 7. Tachycardia: Likely due to the fact that her chronic beta blaine therapy has been held due to hypotension. Resume beta blaine as above. 8. Disposition: Cardiology will continue to follow. Dr. Holland will resume her cardiology care in 2 days. I will continue to follow along in his absence. The patient care has been discussed with Dr. Bernal of the primary hospitalist service. Thank for allowing me to participate in care of Ms. Velasquez. GERARD
[2017-06-21 16:50] LABS: CKMB/CK RATIO 9.4 (0-3.0)
[2017-06-21] MEDS ORDERED: LOSARTAN POTASSIUM 50 MG TAB PO ONE (17:36)
--- NOTE | 2017-06-21 17:49 | Family Medicine Progress Note ---
Progress Note Date of Service Jun 21, 2017. Subjective Pt evaluation today including: conversation w/ patient, physical exam, chart review, lab review Patient says that she came to the ED with vomiting and diarrhea. She says that she had chest pain in the ED. Pt is not experiencing chest pain. She feels less nauseous, no more vomiting. Patient denies SOB on 4 L NC. Constitutional: No fever, No chills Eyes: No worsening of vision Respiratory: + shortness of breath, No cough, No sputum, No wheezing Cardiovascular: No chest pain, No edema, No palpitations Abdomen: No vomiting, No diarrhea Medications Current Inpatient Medications Medications (Trade) Dose Ordered Sig/Yeimy Route Start Time Stop Time Status Last Admin Dose Admin Ioversol (Optiray 320) 111 ml UD PRN IV 06/20/17 19:45 06/24/17 19:44 Acetaminophen (Tylenol Tab) 650 mg Q4H PRN PO 06/20/17 21:15 07/20/17 21:14 Al Hydrox/Mg Hydrox/Simethicone (Maalox Max Susp) 15 ml Q4H PRN PO 06/20/17 21:15 07/20/17 21:14 Polyethylene (Miralax Powder Packet) 17 gm DAILY PRN PO 06/20/17 21:15 07/20/17 21:14 Atorvastatin Calcium (Lipitor Tab) 20 mg HS PO 06/21/17 21:00 07/21/17 20:59 Multivitamins (Multivitamin Tab) 1 tab DAILY PO 06/21/17 09:00 07/21/17 08:59 06/21/17 07:41 1 TAB Potassium Chloride/Sodium Chloride 1,000 ml @ 50 mls/hr Q20H IV 06/21/17 00:00 06/22/17 14:00 06/21/17 07:40 125 MLS/HR Metoclopramide HCl (Reglan Inj) 10 mg Q6H PRN IV 06/20/17 21:45 07/20/17 21:44 06/21/17 17:05 10 MG Heparin Sodium/ Dextrose 500 ml @ 25 mls/hr Q20H PRN IV 06/20/17 22:00 07/20/17 21:59 06/21/17 05:41 27 MLS/HR Nitroglycerin (Nitrostat Tab) 0.4 mg PRN PRN SL 06/21/17 11:30 07/21/17 11:29 06/21/17 11:34 0.4 MG Metoprolol Succinate (Toprol Xl Tab) 100 mg BID PO 06/21/17 21:00 07/21/17 20:59 Isosorbide Mononitrate (Imdur Ext Rel Tab) 30 mg QAM PO 06/22/17 09:00 07/22/17 08:59 Objective Vital Signs Date Time Temp Pulse Resp B/P (MAP) Pulse Ox O2 Delivery O2 Flow Rate FiO2 06/21/17 16:00 Nasal Cannula 4.0 06/21/17 15:09 99 142/95 (111) 91 4.0 06/21/17 15:00 37.3 110 22 157/123 (134) 90 Nasal Cannula 5.0 06/21/17 13:02 37.0 117 20 169/119 (136) 95 4.0 06/21/17 12:00 Room Air 06/21/17 11:39 152/107 (122) 06/21/17 11:34 154/107 (123) 06/21/17 11:29 157/109 (125) 06/21/17 11:24 167/124 (138) 06/21/17 11:23 37.1 104 20 165/105 (125) 90 2.0 06/21/17 08:00 Room Air 06/21/17 07:47 37.0 82 18 115/78 (90) 95 5.0 06/21/17 04:49 37.0 84 19 102/65 (77) 100 Nasal Cannula 4.0 06/21/17 04:02 Nasal Cannula 4.0 06/21/17 00:05 95/60 (72) 06/21/17 00:02 94 Nasal Cannula 4.0 06/20/17 23:00 37.5 88 18 92/60 94 Nasal Cannula 4.0 06/20/17 22:42 94 18 92/69 95 Nasal Cannula 5.0 06/20/17 22:05 89 23 06/20/17 22:00 87/56 95 Nasal Cannula 6.0 Humidified Oxygen 06/20/17 21:50 95 24 94 06/20/17 21:45 84/51 06/20/17 21:35 100 25 89 06/20/17 21:30 89/62 11/17/17 21:20 102 21 89 06/20/17 21:19 103 18 101/77 90 Nasal Cannula 6.0 06/20/17 20:14 117 20 161/112 92 Nasal Cannula 4.0 06/20/17 18:51 108 22 149/109 92 Room Air 06/20/17 18:09 102 Physical Exam General Appearance: WD/WN, no apparent distress Eyes: normal inspection Respiratory/Chest: chest non-tender, lungs clear, normal breath sounds, no respiratory distress, no accessory muscle use Cardiovascular: regular rate, rhythm, no edema, no gallop, no JVD, no murmur Abdomen: normal bowel sounds, non tender, soft, no organomegaly 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: alert, normal mood/affect, oriented x 3 Skin: normal color, warm/dry, no rash Laboratory Results 06/21/17 03:47 Red Blood Count 3.78, Mean Corpuscular Volume 93.9, Mean Corpuscular Hemoglobin 31.5, Mean Corpuscular Hemoglobin Concent 33.5, Mean Platelet Volume 11.0, Neutrophils (%) (Auto) 85.5, Lymphocytes (%) (Auto) 11.3, Monocytes (%) (Auto) 2.9, Eosinophils (%) (Auto) 0.0, Basophils (%) (Auto) 0.1, Neutrophils # (Auto) 11.40, Lymphocytes # (Auto) 1.50, Monocytes # (Auto) 0.38, Eosinophils # (Auto) 0.00, Basophils # (Auto) 0.01 06/21/17 03:47 Test 06/20/17 18:11 06/20/17 18:17 06/20/17 18:42 06/20/17 21:36 Prothrombin Time 10.0 SECONDS (9.0-12.0) Prothromb Time International Ratio 0.9 (0.9-1.1) Magnesium Level 1.7 mg/dl (1.8-2.4) Total Bilirubin 0.4 mg/dl (0.2-1) Aspartate Amino Transf (AST/SGOT) 19 U/L (15-37) Alanine Aminotransferase (ALT/SGPT) 19 U/L (12-78) Alkaline Phosphatase 80 U/L (45-117) Pro-B-Type Natriuretic Peptide 5592 pg/ml (0-900) Total Protein 7.4 gm/dl (6.4-8.2) Albumin 3.8 gm/dl (3.4-5.0) Globulin 3.6 gm/dl (2.5-4.0) Albumin/Globulin Ratio 1.1 (0.9-2) Lipase 65 U/L (73-393) Bedside Lactic Acid Venous 4.76 mmol/L (0.90-1.70) Urine Color YELLOW Urine Appearance CLEAR (CLEAR) Urine pH 5.0 (4.5-7.5) Urine Specific [address] 1.024 (1.000-1.030) Urine Protein 2+ (NEG) Urine Glucose (UA) NEG (NEG) Urine Ketones NEG (NEG) Urine Occult Blood 2+ (NEG) Urine Nitrite NEG (NEG) Urine Bilirubin NEG (NEG) Urine Urobilinogen NEG (NEG) Urine Leukocyte Esterase NEG (NEG) Urine WBC (Auto) 1-5 /hpf (0-5) Urine RBC (Auto) 0-4 /hpf (0-4) Urine Hyaline Casts (Auto) 1-5 /lpf (0-5) Urine Epithelial Cells (Auto) 10-20 /lpf (0-5) Urine Bacteria (Auto) NEG (NEG) Lactic Acid Level 3.9 mmol/L (0.4-2.0) Test 06/20/17 21:57 06/20/17 22:31 06/21/17 03:47 06/21/17 11:27 White Blood Count 13.32 K/uL (4.8-10.8) Red Blood Count 3.78 M/uL (4.2-5.4) Hemoglobin 11.9 g/dL (12.0-16.0) Hematocrit 35.5 % (37-47) Mean Corpuscular Volume 93.9 fL (80-100) Mean Corpuscular Hemoglobin 31.5 pg (25-34) Mean Corpuscular Hemoglobin Concent 33.5 g/dl (32-36) Platelet Count 278 K/uL (130-400) Mean Platelet Volume 11.0 fL (7.4-10.4) Neutrophils (%) (Auto) 85.5 % Lymphocytes (%) (Auto) 11.3 % Monocytes (%) (Auto) 2.9 % Eosinophils (%) (Auto) 0.0 % Basophils (%) (Auto) 0.1 % Neutrophils # (Auto) 11.40 K/uL (1.4-6.5) Lymphocytes # (Auto) 1.50 K/uL (1.2-3.4) Monocytes # (Auto) 0.38 K/uL (0.11-0.59) Eosinophils # (Auto) 0.00 K/uL (0-0.5) Basophils # (Auto) 0.01 K/uL (0-0.2) RDW Standard Deviation 44.1 fL (36.4-46.3) RDW Coefficient of Variation 13.0 % (11.5-14.5) Immature Granulocyte % (Auto) 0.2 % Immature Granulocyte # (Auto) 0.03 K/uL (0.00-0.02) Anion Gap 6.0 mmol/L (3-11) Est Creatinine Clear Calc Drug Dose 86.3 ml/min Estimated GFR () 107.0 Estimated GFR (Non- 92.3 BUN/Creatinine Ratio 23.2 (10-20) Calcium Level 8.6 mg/dl (8.5-10.1) Triglycerides Level 101 mg/dl (0-150) Cholesterol Level 144 mg/dl (0-200) HDL Cholesterol 64 mg/dl LDL Cholesterol, Calculated 60 mg/dl VLDL Cholesterol, Calculated 20 mg/dl Cholesterol/HDL Ratio 2.3 Activated Partial Thromboplast Time 94.8 SECONDS (21.0-31.0) Partial Thromboplastin Ratio 3.6 Test 06/21/17 15:17 Total Creatine Kinase 143 U/L (26-192) Creatine Kinase MB 13.4 ng/ml (0.5-3.6) Creatine Kinase MB Ratio 9.4 (0-3.0) Troponin I 6.840 ng/ml (0-0.045) Assessment and Plan 52 yo F with hypertension who presents with chest pain after a day of vomiting and troponin elevation. DDx includes NSTEMI from demand/supply mismatch vs obstructive CAD, and vomiting potentially from cannabinoid hyperemesis vs gastroenteritis vs GI bleed. NSTEMI - Secondary to demand ischemia, vomiting and dehydration. Or myocarditis secondary to viral illness. - Troponin-->2.3, 5.7, 5.7, 6.84 - Cardiology consult; no need for CATH at this time - Heparin drip dc'ed -Will continue her daily aspirin, beta blaine, and statin. -Adding Imdur 30mg daily Cardiomyopathy -ECHO demonstrated normal sized left ventricle, but moderately reduced function ; EF 40% -d/c IVF Vomiting - Pt allergic to Compazine. Has received Zofran but QTc is already prolonged, so will use Reglan for vomiting PRN. - Maintenance fluids 50mls/hr -Possible viral gastroenteritis and subsequent myocarditis Hypoxia - Pt did not have an O2 requirement on arrival, then after 2 x fluid boluses, now requiring 4L O2. Imaging reports pulmonary edema. - Will order transthoracic echo, showed reduced systolic function Hypotension w/hx of labile hypertension - Resuming Losartan, but will watch closely for hypotension Cannabis use - Encouraged to stop this as it could contribute to her multiple issues Code status: Full VTE: ASA Dispo: Admitted to Tele Reviewed: Pt Seen/Exam by Me History no more nausea/vomiting no chest pain Constitutional: denies: fever Respiratory: negative: short of breath Cardiovascular: denies chest pain Gastrointestinal/Abdominal: negative: abdominal pain General Appearance: no apparent distress Respiratory: lungs clear, no respiratory distress Cardiovascular: regular rate, rhythm 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: alert, oriented x 3 Skin Characteristics: warm/dry Assessment/Plan Resident Physician Supervision Note: I independently interviewed and examined the patient and verified the real history and physical, reviewed labs and image studies, discussed the case with the resident Dr. Patel and agree with the findings and care plan.
[2017-06-21 20:10] LABS: PARTIAL THROMBOPLASTIN RATIO 1.9
[2017-06-21] MEDS: METOPROLOL SUCC 50MG EXT REL TAB PO SCH (20:18)
[2017-06-21] MEDS ORDERED: ATORVASTATIN 20 MG TAB PO SCH (21:00)
[2017-06-21 22:13] LABS: CKMB/CK RATIO 7.8 (0-3.0)
[2017-06-22 03:41] VITALS: BP 125/86; PULSE 77; TEMP 36.8; O2SAT 93
[2017-06-22 04:48] LABS: BASO % 0.2 %; BASO ABS # 0.03 K/uL (0-0.2); COMPLETE YES; EOS % 0.1 %; HEMATOCRIT 34.4 % (37-47); IG% 0.2 %; LYMPH % 29.8 %; LYMPH ABS # 3.73 K/uL (1.2-3.4); MEAN CELL VOLUME 94.5 fL (80-100); MEAN CORPUSCULAR HGB CONC 32.8 g/dl (32-36); MEAN PLATELET VOLUME 10.7 fL (7.4-10.4); MONO % 7.3 %; NEUT % 62.4 %; PLATELET COUNT 234 K/uL (130-400); RED BLOOD COUNT 3.64 M/uL (4.2-5.4); WHITE BLOOD COUNT 12.52 K/uL (4.8-10.8)
[2017-06-22 05:01] LABS: PARTIAL THROMBOPLASTIN RATIO 1.5
[2017-06-22 05:07] LABS: BUN/CREATININE RATIO 18.3 (10-20); CALCIUM 8.8 mg/dl (8.5-10.1); CREATININE 0.68 mg/dl (0.60-1.20); POTASSIUM 3.7 mmol/L (3.5-5.1)
[2017-06-22] MEDS ORDERED: HEPARIN IV BOLUS 5,000 UNIT in SYRINGE 0 ML IV ONE (05:15)
[2017-06-22] MEDS: HEPARIN 25,000 UNIT/500ML D5W 500 ML IV PRN (05:19)
[2017-06-22 07:57] VITALS: BP 117/79; PULSE 78; TEMP 37.2; O2SAT 94
[2017-06-22] MEDS: LOSARTAN POTASSIUM 50 MG TAB PO SCH (08:07)
[2017-06-22] MEDS: METOPROLOL SUCC 50MG EXT REL TAB PO SCH ×2 (08:07→21:12)
[2017-06-22] MEDS: ISOSORBIDE MONONITRATE 30 MG TABCR PO SCH (08:07)
[2017-06-22] MEDS: MULTIVITAMIN TAB PO SCH (08:07)
--- NOTE | 2017-06-22 09:15 | CARDIOLOGY PROGRESS NOTE ---
DATE: 06/22/2017 TIME: 08:46 a.m. SUBJECTIVE: She feels much better and back to her baseline. She no longer has nausea, vomiting or diarrhea. She has not had any further chest pain or shortness of breath. She denies syncope, near syncope, or palpitations. She has ambulated in her room, but not yet in the hallway. OBJECTIVE: VITAL SIGNS: Temperature 37.2 degrees, heart rate 78 beats per minute, respiratory rate 18, blood pressure 119/79 mmHg, and oxygen saturation is 94% on room air. I's and O's negative 227 mL yesterday. Weight is 61.4 kg. GENERAL: No acute distress. She is alert and oriented. NECK: No JVD. CARDIAC EXAM: No ventricular heave. Regular, normal S1 and S2. There were no murmurs, rubs or gallops. LUNGS: Clear to auscultation bilaterally without wheezes, rales or rhonchi. ABDOMEN: Soft, nontender, and nondistended. Normoactive bowel sounds. EXTREMITIES: No cyanosis or edema. PSYCHIATRIC: Affect appears appropriate. MEDICATIONS: Include heparin drip per protocol, atorvastatin 20 mg daily, isosorbide mononitrate 30 mg daily, losartan 50 mg daily, and metoprolol succinate 100 mg p.o. b.i.d. Telemetry personally reviewed. Sinus rhythm and no arrhythmia. LABORATORY DATA: Sodium 141, potassium 3.7, BUN 13, and creatinine 0.68. Peak troponin 6.84. White blood cell count is 12.52 and has been trending downward. Hemoglobin 11.3 and platelets 234. PTT 38.6. ECG from this morning personally reviewed from 06/22/2017 at 06:51 a.m.: Sinus rhythm at 76 beats per minute. Cannot rule out inferior infarct. Anterior T-wave abnormality, which is new compared to yesterday. ASSESSMENT AND PLAN: 1. Myocarditis: She does have elevated troponin levels, which appear to be in the setting of an acute viral gastroenteritis. She did not present with acute coronary syndrome, but rather GI complaints and had positive troponins when she presented. She later did develop some chest discomfort without ECG changes. She has mild nonobstructive disease noted in 2013. Recommend metoprolol succinate and losartan. At some point, would repeat echocardiogram; however, would not do so today as it has been only 1 day since her initial echo. She appears euvolemic. We discussed this as the likely diagnosis. Can therefore stop heparin drip. 2. Cardiomyopathy: It is hopeful that her LV systolic function will recover. Continue current regimen. Would recommend repeating echo in the future. She appears euvolemic. 3. Coronary artery disease: She does have mild nonobstructive CAD in 2014. Her symptoms are more suggestive of a myocarditis related to GI illness. Chest pain occurred with no ECG changes and she has significant amount of LV systolic dysfunction with only mildly elevated troponin level, which does not appear to correlate with the echo findings. I would expect some ECG changes in the midst of her chest discomfort. Continue statin therapy. Recommend high intensity statin therapy. We will resume aspirin 81 mg daily. 4. Hypertension: Blood pressure is now normal on her home medications with the exception of metoprolol tartrate has been changed to metoprolol succinate due to her myocardial dysfunction. 5. Tachycardia: This has resolved and now that she is feeling better and that her beta blaine has been resumed. 6. Dyslipidemia: High intensity statin therapy recommended. 7. Disposition: Given her elevated troponins and systolic dysfunction, would recommend remaining hospitalized until tomorrow morning, so that she can be monitored for ventricular arrhythmia, which is most common within the first [address] Holland will resume her cardiology care at that time. The patient's care has been communicated with Dr. Bernal in the primary hospitalist service. GERARD
[2017-06-22] MEDS: ASPIRIN 81 MG ECTAB PO SCH (09:55)
--- NOTE | 2017-06-22 10:13 | Family Medicine Progress Note ---
Progress Note Date of Service Jun 22, 2017. Subjective Pt evaluation today including: conversation w/ patient, physical exam, chart review, lab review Pt is feeling much better today. Denies nausea, vomiting, diarrhea. Pt is no longer dependant on O2. Constitutional: No fever, No chills, No sweats Respiratory: No cough, No sputum, No wheezing, No shortness of breath Cardiovascular: No chest pain, No edema, No palpitations Abdomen: No pain, No nausea, No vomiting, No diarrhea Medications Current Inpatient Medications Medications (Trade) Dose Ordered Sig/Yeimy Route Start Time Stop Time Status Last Admin Dose Admin Ioversol (Optiray 320) 111 ml UD PRN IV 06/20/17 19:45 06/24/17 19:44 Acetaminophen (Tylenol Tab) 650 mg Q4H PRN PO 06/20/17 21:15 07/20/17 21:14 Al Hydrox/Mg Hydrox/Simethicone (Maalox Max Susp) 15 ml Q4H PRN PO 06/20/17 21:15 07/20/17 21:14 Polyethylene (Miralax Powder Packet) 17 gm DAILY PRN PO 06/20/17 21:15 07/20/17 21:14 Multivitamins (Multivitamin Tab) 1 tab DAILY PO 06/21/17 09:00 07/21/17 08:59 06/22/17 08:07 1 TAB Potassium Chloride/Sodium Chloride 1,000 ml @ 50 mls/hr Q20H IV 06/21/17 00:00 06/22/17 14:00 06/21/17 18:12 50 MLS/HR Metoclopramide HCl (Reglan Inj) 10 mg Q6H PRN IV 06/20/17 21:45 07/20/17 21:44 06/21/17 17:05 10 MG Nitroglycerin (Nitrostat Tab) 0.4 mg PRN PRN SL 06/21/17 11:30 07/21/17 11:29 06/21/17 11:34 0.4 MG Metoprolol Succinate (Toprol Xl Tab) 100 mg BID PO 06/21/17 21:00 07/21/17 20:59 06/22/17 08:07 100 MG Isosorbide Mononitrate (Imdur Ext Rel Tab) 30 mg QAM PO 06/22/17 09:00 07/22/17 08:59 06/22/17 08:07 30 MG Losartan Potassium (coZAAR TAB) 50 mg QAM PO 06/22/17 09:00 07/22/17 08:59 06/22/17 08:07 50 MG Atorvastatin Calcium (Lipitor Tab) 40 mg HS PO 06/22/17 21:00 07/21/17 20:59 Aspirin (Ecotrin Tab) 81 mg QAM PO 06/22/17 09:00 07/22/17 08:59 06/22/17 09:55 81 MG Objective Vital Signs Current Inpatient Medications Medications (Trade) Dose Ordered Sig/Yeimy Route Start Time Stop Time Status Last Admin Dose Admin Ioversol (Optiray 320) 111 ml UD PRN IV 06/20/17 19:45 06/24/17 19:44 Acetaminophen (Tylenol Tab) 650 mg Q4H PRN PO 06/20/17 21:15 07/20/17 21:14 Al Hydrox/Mg Hydrox/Simethicone (Maalox Max Susp) 15 ml Q4H PRN PO 06/20/17 21:15 07/20/17 21:14 Polyethylene (Miralax Powder Packet) 17 gm DAILY PRN PO 06/20/17 21:15 07/20/17 21:14 Multivitamins (Multivitamin Tab) 1 tab DAILY PO 06/21/17 09:00 07/21/17 08:59 06/22/17 08:07 1 TAB Potassium Chloride/Sodium Chloride 1,000 ml @ 50 mls/hr Q20H IV 06/21/17 00:00 06/22/17 14:00 06/21/17 18:12 50 MLS/HR Metoclopramide HCl (Reglan Inj) 10 mg Q6H PRN IV 06/20/17 21:45 07/20/17 21:44 06/21/17 17:05 10 MG Nitroglycerin (Nitrostat Tab) 0.4 mg PRN PRN SL 06/21/17 11:30 07/21/17 11:29 06/21/17 11:34 0.4 MG Metoprolol Succinate (Toprol Xl Tab) 100 mg BID PO 06/21/17 21:00 07/21/17 20:59 06/22/17 08:07 100 MG Isosorbide Mononitrate (Imdur Ext Rel Tab) 30 mg QAM PO 06/22/17 09:00 07/22/17 08:59 06/22/17 08:07 30 MG Losartan Potassium (coZAAR TAB) 50 mg QAM PO 06/22/17 09:00 07/22/17 08:59 06/22/17 08:07 50 MG Atorvastatin Calcium (Lipitor Tab) 40 mg HS PO 06/22/17 21:00 07/21/17 20:59 Aspirin (Ecotrin Tab) 81 mg QAM PO 06/22/17 09:00 07/22/17 08:59 06/22/17 09:55 81 MG Physical Exam General Appearance: WD/WN, no apparent distress Neck: supple, no adenopathy Respiratory/Chest: chest non-tender, lungs clear, normal breath sounds, no respiratory distress, no accessory muscle use Cardiovascular: regular rate, rhythm, no edema, no gallop, no JVD, no murmur 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: alert, normal mood/affect, oriented x 3 Skin: normal color, warm/dry, no rash Laboratory Results 06/22/17 04:40 Red Blood Count 3.64, Mean Corpuscular Volume 94.5, Mean Corpuscular Hemoglobin 31.0, Mean Corpuscular Hemoglobin Concent 32.8, Mean Platelet Volume 10.7, Neutrophils (%) (Auto) 62.4, Lymphocytes (%) (Auto) 29.8, Monocytes (%) (Auto) 7.3, Eosinophils (%) (Auto) 0.1, Basophils (%) (Auto) 0.2, Neutrophils # (Auto) 7.82, Lymphocytes # (Auto) 3.73, Monocytes # (Auto) 0.91, Eosinophils # (Auto) 0.01, Basophils # (Auto) 0.03 06/22/17 04:40 Test 06/21/17 21:15 06/22/17 04:40 Total Creatine Kinase 119 U/L (26-192) Creatine Kinase MB 9.3 ng/ml (0.5-3.6) Creatine Kinase MB Ratio 7.8 (0-3.0) Troponin I 5.590 ng/ml (0-0.045) White Blood Count 12.52 K/uL (4.8-10.8) Red Blood Count 3.64 M/uL (4.2-5.4) Hemoglobin 11.3 g/dL (12.0-16.0) Hematocrit 34.4 % (37-47) Mean Corpuscular Volume 94.5 fL (80-100) Mean Corpuscular Hemoglobin 31.0 pg (25-34) Mean Corpuscular Hemoglobin Concent 32.8 g/dl (32-36) Platelet Count 234 K/uL (130-400) Mean Platelet Volume 10.7 fL (7.4-10.4) Neutrophils (%) (Auto) 62.4 % Lymphocytes (%) (Auto) 29.8 % Monocytes (%) (Auto) 7.3 % Eosinophils (%) (Auto) 0.1 % Basophils (%) (Auto) 0.2 % Neutrophils # (Auto) 7.82 K/uL (1.4-6.5) Lymphocytes # (Auto) 3.73 K/uL (1.2-3.4) Monocytes # (Auto) 0.91 K/uL (0.11-0.59) Eosinophils # (Auto) 0.01 K/uL (0-0.5) Basophils # (Auto) 0.03 K/uL (0-0.2) RDW Standard Deviation 44.6 fL (36.4-46.3) RDW Coefficient of Variation 13.0 % (11.5-14.5) Immature Granulocyte % (Auto) 0.2 % Immature Granulocyte # (Auto) 0.02 K/uL (0.00-0.02) Activated Partial Thromboplast Time 38.6 SECONDS (21.0-31.0) Partial Thromboplastin Ratio 1.5 Anion Gap 7.0 mmol/L (3-11) Est Creatinine Clear Calc Drug Dose 95.2 ml/min Estimated GFR () 117.4 Estimated GFR (Non- 101.3 BUN/Creatinine Ratio 18.3 (10-20) Calcium Level 8.8 mg/dl (8.5-10.1) Assessment and Plan 52 yo F with hypertension who presents with chest pain after a day of vomiting and troponin elevation. DDx includes NSTEMI from demand/supply mismatch vs obstructive CAD, and vomiting potentially from cannabinoid hyperemesis vs gastroenteritis vs GI bleed. NSTEMI - Secondary to demand ischemia, vomiting and dehydration. Or myocarditis secondary to viral illness. - Troponin-->2.3, 5.7, 5.7, 6.84 - Cardiology consult; no need for CATH at this time - Cardiology recommends observing patient one more day for potential arrhythmia - Heparin drip dc'ed - Will continue her daily aspirin, beta blaine, and statin. - Adding Imdur 30mg daily Cardiomyopathy -ECHO demonstrated normal sized left ventricle, but moderately reduced function ; EF 40% -d/c IVF Vomiting -Resolved -Reglan PRN. -Possible viral gastroenteritis and subsequent myocarditis Hypoxia - Resolved - Echo showed reduced systolic function Hypotension w/hx of labile hypertension - Resuming Losartan, but will watch closely for hypotension Cannabis use - Encouraged to stop this as it could contribute to her multiple issues Code status: Full VTE: ASA Dispo: Admitted to Tele Reviewed: Pt Seen/Exam by Me History feeling much better Constitutional: denies: fever Respiratory: negative: short of breath Cardiovascular: denies chest pain Gastrointestinal/Abdominal: negative: abdominal pain, nausea General Appearance: no apparent distress Respiratory: lungs clear, no respiratory distress Cardiovascular: regular rate, rhythm Gastrointestinal: normal bowel sounds, non tender, soft 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: alert, oriented x 3 Skin Characteristics: warm/dry Assessment/Plan Resident Physician Supervision Note: I independently interviewed and examined the patient and verified the real history and physical, reviewed labs and image studies, discussed the case with the resident Dr. Patel and agree with the findings and care plan.
[2017-06-22 11:27] VITALS: BP 114/70; PULSE 70; TEMP 37.5; O2SAT 95
[2017-06-22 14:59] VITALS: BP 103/67; PULSE 73; TEMP 37; O2SAT 93
[2017-06-22 19:48] VITALS: BP 120/81; PULSE 70; TEMP 37.6; O2SAT 97
[2017-06-22] MEDS ORDERED: ATORVASTATIN 40 MG TAB PO SCH (21:00)
[2017-06-23] VITALS: BP 111/72; PULSE 65; TEMP 37.2; O2SAT 94
[2017-06-23 04:22] VITALS: BP 117/78; PULSE 71; TEMP 37; O2SAT 94
[2017-06-23 04:42] LABS: BASO % 0.4 %; BASO ABS # 0.04 K/uL (0-0.2); COMPLETE YES; EOS % 1.2 %; HEMATOCRIT 32.8 % (37-47); IG% 0.3 %; LYMPH % 29.3 %; LYMPH ABS # 3.21 K/uL (1.2-3.4); MEAN CELL VOLUME 94.3 fL (80-100); MEAN CORPUSCULAR HEMOGLOBIN 31.9 pg (25-34); MEAN CORPUSCULAR HGB CONC 33.8 g/dl (32-36); MEAN PLATELET VOLUME 10.7 fL (7.4-10.4); MONO % 6.7 %; NEUT % 62.1 %; PLATELET COUNT 226 K/uL (130-400); RED BLOOD COUNT 3.48 M/uL (4.2-5.4); WHITE BLOOD COUNT 10.94 K/uL (4.8-10.8)
[2017-06-23 04:57] LABS: PARTIAL THROMBOPLASTIN RATIO 0.8
[2017-06-23 05:09] LABS: BUN/CREATININE RATIO 20.5 (10-20); CALCIUM 8.7 mg/dl (8.5-10.1); CREATININE 0.75 mg/dl (0.60-1.20); POTASSIUM 3.3 mmol/L (3.5-5.1)
[2017-06-23 07:35] VITALS: BP 129/86; PULSE 69; TEMP 37.4; O2SAT 97
[2017-06-23] MEDS: MULTIVITAMIN TAB PO SCH (08:34)
[2017-06-23] MEDS: ASPIRIN 81 MG ECTAB PO SCH (08:34)
[2017-06-23] MEDS: ISOSORBIDE MONONITRATE 30 MG TABCR PO SCH (08:34)
[2017-06-23] MEDS: METOPROLOL SUCC 50MG EXT REL TAB PO SCH (08:34)
[2017-06-23] MEDS: LOSARTAN POTASSIUM 50 MG TAB PO SCH (08:34)
--- NOTE | 2017-06-23 09:57 | Cardiology Follow-Up ---
Subjective Date of Service: Jun 23, 2017. Pt evaluation today including: conversation w/ patient, physical exam, chart review, lab review, review of studies, review of inpatient medication list, conversation w/ attending History of Present Illness Patient claims to be feeling well today. She is feeling much better since admission and is happy that she can tolerate a regular diet. She had no longer has abdominal discomfort. She has not had any significant nausea or vomiting. She has not had a recurrence of her chest discomfort or breathing difficulty. She has been ambulatory around the room and denies significant dizziness or lightheadedness. Social History Smoking Status: Former Smoker History of Alcohol Use: No Review of Systems Respiratory: No cough, No sputum, No wheezing, No shortness of breath Cardiac: No chest pain, No edema, No palpitations Objective Vital Signs Past 12 Hours Date Time Temp Pulse Resp B/P (MAP) Pulse Ox O2 Delivery O2 Flow Rate FiO2 06/23/17 08:00 Room Air 06/23/17 07:35 37.4 69 20 129/86 (100) 97 06/23/17 04:22 37.0 71 17 117/78 (91) 94 Room Air 06/23/17 04:02 Room Air 06/23/17 00:00 Room Air 06/23/17 00:00 37.2 65 17 111/72 (85) 94 Room Air Last Recorded Weight-Kilograms: 59.700 Physical Exam She is alert and oriented x3. Mood affect appear normal. She answered all questions appropriately. HEENT: Sclerae are anicteric. Pupils are equal and reactive to light and accommodation. Extraocular movements were intact. Neuro: Cranial nerves intact Neck: Examination of the submandibular region did not reveal any significant lymphadenopathy. Carotids are palpable bilaterally and free of bruits on auscultation. There was no evidence of jugular venous distention. The thyroid was not enlarged. Lungs: Lungs are clear to auscultation bilaterally. There are no rales wheezes or rhonchi. She has normal respiratory effort without use of accessory muscles. There is normal pulmonary excursion. Cardiac: The rhythm was regular. S1 and S2 were normal. There are no murmurs on examination. The PMI was not markedly displaced on palpation. Abdomen: The abdomen was soft and nontender. Extremities: Patient has bilateral radial pulses that are equal in intensity. There is no evidence cyanosis or clubbing. There was no evidence of significant peripheral edema bilaterally. Skin: There are no rashes noted on examination today. Data Laboratory Results: Last 24 Hours Test 06/23/17 04:34 White Blood Count 10.94 K/uL Red Blood Count 3.48 M/uL Hemoglobin 11.1 g/dL Hematocrit 32.8 % Mean Corpuscular Volume 94.3 fL Mean Corpuscular Hemoglobin 31.9 pg Mean Corpuscular Hemoglobin Concent 33.8 g/dl Platelet Count 226 K/uL Mean Platelet Volume 10.7 fL Neutrophils (%) (Auto) 62.1 % Lymphocytes (%) (Auto) 29.3 % Monocytes (%) (Auto) 6.7 % Eosinophils (%) (Auto) 1.2 % Basophils (%) (Auto) 0.4 % Neutrophils # (Auto) 6.80 K/uL Lymphocytes # (Auto) 3.21 K/uL Monocytes # (Auto) 0.73 K/uL Eosinophils # (Auto) 0.13 K/uL Basophils # (Auto) 0.04 K/uL RDW Standard Deviation 44.5 fL RDW Coefficient of Variation 13.0 % Immature Granulocyte % (Auto) 0.3 % Immature Granulocyte # (Auto) 0.03 K/uL Activated Partial Thromboplast Time 20.2 SECONDS Partial Thromboplastin Ratio 0.8 Sodium Level 141 mmol/L Potassium Level 3.3 mmol/L Chloride Level 107 mmol/L Carbon Dioxide Level 27 mmol/L Anion Gap 7.0 mmol/L Blood Urea Nitrogen 15 mg/dl Creatinine 0.75 mg/dl Est Creatinine Clear Calc Drug Dose 86.0 ml/min Estimated GFR () 107.0 Estimated GFR (Non- 92.3 BUN/Creatinine Ratio 20.5 Random Glucose 103 mg/dl Calcium Level 8.7 mg/dl Imaging: I reviewed the results for abdominal CT EKG: I reviewed her serial EKGs Assessment and Plan 1. Elevated troponin: Patient had some elevated troponins during hospitalization consistent with some myocardial injury preceding her admission. She did have chest pain but this started at the time of her emergency room evaluation and she already had positive biomarkers suggesting this was not a symptom of angina or hospital insurance representative of an acute coronary syndrome. Her EKG did not demonstrate any significant changes. She did not have any elevation in her total CK. He would seem reasonable to suppose her echocardiogram changes are associated with a viral myocarditis, stress cardiomyopathy or possibly hypertensive urgency. She has had elevations in her cardiac biomarkers on other evaluations although not to this degree. At this point I did not recommend coronary angiography. I think would be reasonable to monitor her LV function and symptoms as an outpatient prior to recommending any additional angiography. As this was not an acute coronary syndrome I think we have the luxury of monitoring her symptoms and echo findings prior to any invasive studies. 2. Cardiomyopathy: This is likely nonischemic. Possibly stress induced. Hopefully this will resolve in short order. Repeat echocardiogram in 7 in 10 days should be ordered. She should continue on her ARB and beta-blaine. 3. Hypertension: Patient blood pressures have been well controlled here in the hospital. Most of the time her blood pressures are actually well controlled. She is actually worn a 24 hour blood pressure monitor in the past and had good result. I think the notable elevations in her blood pressure are related to acute illness and stress. It is very likely that she had an element of labile blood pressures during her acute illness which may have contributed to some of her elevated biomarkers and echo findings. 4. Coronary artery disease: Patient is known to have nonobstructive coronary disease. She should be continued on her daily aspirin, high-intensity statin and beta-blaine. At this point I feel the patient is stable for discharge. She has not had recurrence symptoms. She can be continued on her metoprolol succinate, high intensity statin, aspirin and ARB. She did have a follow-up echocardiogram 7 a 10 days and a follow-up in our clinic preferably within 2-4 weeks.
[2017-06-23] MEDS ORDERED: POTASSIUM CHLORIDE 20 MEQ TABCR PO ONE (10:45)
[2017-06-23 11:29] VITALS: BP 120/78; PULSE 62; TEMP 37.3; O2SAT 96
[2017-06-23] MEDS ORDERED: CRS/10 PO (12:28)
[2017-06-23] MEDS ORDERED: CLON0.1T12 PO (12:28)
[2017-06-23] MEDS ORDERED: IMDSR30 PO (12:28)
[2017-06-23] MEDS ORDERED: TPRSR50 PO (12:28)
--- NOTE | 2017-06-23 12:30 | Discharge Instructions ---
Discharge Instructions Date of Service Jun 23, 2017. Admission Reason for Admission: Chest Pain, Elevated Troponin, Nstemi Discharge Discharge Diagnosis / Problem: Chest pain Discharge Goals Goal(s): Decrease discomfort, Improve function Activity Recommendations Activity Limitations: resume your previous activity . Instructions / Follow-Up Instructions / Follow-Up You came to [facility] due to chest pain that occurred after a day of vomiting. We checked your troponin levels, which measure damage to your heart, and those came back elevated. We also did an ultrasound of your heart which showed some abnormalities. We would like for you to have a follow-up ultrasound of the heart in 7-10 days to ensure that these abnormalities resolve, and to follow up with cardiology in 2-4 weeks. It is unlikely your chest pain was due a heart attack, given that your EKG (electric tracing of heart) was normal, and other enzymes measuring heart dysfunction were normal as well. Your symptoms may have been caused by a viral illness, or due to a disorder called stress cardiomyopathy. Cardiology will follow up closely with you to ensure resolution of these problems. We have made some changes to your medication regimen, namely increasing your atorvastatin dose to 40mg, adding in a medication called Imdur to help with blood pressure control and changing your metoprolol to a long acting dose instead of short acting. For your clonidine, you can take that on an as needed basis, when the top number of your blood pressure goes above 180. Please also follow up with your primary care provider. Your potassium in the hospital was on the lower side, and we supplemented that orally, but recommend that your primary care provider recheck the levels. Current Hospital Diet Patient's current hospital diet: AHA Diet (Heart Healthy), Low Sodium Diet (2gm Na) Discharge Diet Recommended Diet: AHA Diet (Heart Healthy), Low Sodium Diet (2gm Na) Pending Studies Studies pending at discharge: yes List of pending studies: Heavy metal panel Laboratory Results Lipid Panel Test 06/21/17 03:47 Range/Units Triglycerides Level 101 0-150 mg/dl Cholesterol Level 144 0-200 mg/dl HDL Cholesterol 64 mg/dl Cholesterol/HDL Ratio 2.3 LDL Cholesterol, Calculated 60 mg/dl Medical Emergencies . Who to Call and When: Medical Emergencies: If at any time you feel your situation is an emergency, please call 911 immediately. . Non-Emergent Contact Non-Emergency issues call your: Primary Care Provider . . "Provider Documentation" section prepared by Ignacia Way. . VTE Core Measure Inpt VTE Proph given/why not?: SCD's
[2017-06-23] MEDS ORDERED: LPT40 PO (12:45)
[2017-06-23 13:07] VITALS: BP 120/78; PULSE 62; TEMP 37.3; O2SAT 96
--- NOTE | 2017-06-23 13:13 | Discharge Summary ---
Discharge Summary Date of Service Jun 23, 2017. (Ignacia Way M.D.) Discharge Summary Admission Date: Jun 20, 2017 at 21:16 Discharge Date: Jun 23, 2017 Discharge Disposition: Home Principal Diagnosis: Viral Myocarditis/Stress cardiomyopathy Problems/Secondary Diagnoses: Hypertension Immunizations: Have You Had Influenza Vaccine: Unknown History of Tetanus Vaccine?: Unknown History of Pneumococcal: Unknown History of Hepatitis B Vaccine: Unknown (Ignacia Way M.D.) Problems/Secondary Diagnoses: Chronic diastolic CHF New onset acute systolic CHF Intractable nausea/vomiting Hypokalemia Mild mitral regurgitation Lactic acidosis Leukocytosis Marijuana abuse Procedures: ECHO CT ABD/PEL Chest/Abdomen xray Consultations: Cardiology (Leonie Fairbanks MD) Medication Reconciliation New Medications: Atorvastatin (Atorvastatin Calcium) 40 Mg Tab 40 MG PO HS for 30 Days, #30 TAB 3 Refills Isosorbide Mononitrate (Isosorbide Mononitrate ER) 30 Mg Tabcr 30 MG PO QAM for 30 Days, #30 TABS Metoprolol Succinate (Metoprolol Succinate ER) 50 Mg Tabcr 100 MG PO BID for 30 Days, #120 TAB Changed Medications: Clonidine Hcl (Catapres) 0.1 Mg Tab 1 TAB PO Q6H PRN for Hypertension for 90 Days, #360 TAB 1 Refill (Changed from: NEEDED FOR ACCELERATED HYPERTENSION SYSTOLIC BLOOD PRESSURE) Take if systolic blood pressure is above 180. Continued Medications: Aspirin (Aspirin Chewable) 81 Mg Chew 81 MG PO DAILY Losartan Potassium (Losartan Potassium) 50 Mg Tab 50 MG PO DAILY, #30 TABS 3 Refills Multivitamin (Multivitamin) Tab 1 TAB PO DAILY, TAB Ondasetron Odt (Zofran Odt) 4 Mg Tab 4 MG SL Q6H PRN for Nausea or Vomiting, #6 TAB Discontinued Medications: Atorvastatin (Lipitor) 20 Mg Tab 20 MG PO HS, TAB Metoprolol Tartrate (Lopressor) (Lopressor) 100 Mg Tab 100 MG PO BID, TAB Discharge Exam Ms. Velasquez states that she feels well today. She denies any more episodes of chest pain, SOB, nausea, vomiting, palpitations or presyncopal episodes. She states she has been walking around her room and reports no difficulty with this. She is eager to be discharged. Review of Systems: Constitutional: No fever, No chills, No sweats, No weakness Respiratory: No cough, No sputum, No wheezing, No shortness of breath, No dyspnea on exertion, No dyspnea at rest Cardiovascular: No chest pain, No orthopnea, No PND, No edema Abdomen: No pain, No nausea, No vomiting, No diarrhea, No constipation Physical Exam: General Appearance: WD/WN, no apparent distress Respiratory/Chest: chest non-tender, lungs clear, normal breath sounds, no respiratory distress, no accessory muscle use Cardiovascular: regular rate, rhythm, no edema, no gallop, no JVD, no murmur , normal peripheral pulses Abdomen / GI: normal bowel sounds, non tender, soft, no organomegaly, no pulsatile mass Extremities: normal inspection, no calf tenderness, normal capillary refill 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: alert, normal mood/affect, oriented x [address] ([address] M.D.) Hospital Course Ms. Velasquez presented to [facility] due to chest pain that followed a day of vomiting. Her troponin was elevated, however EKG and CK were normal. Her ECHO did show wall motion abnormalities, and will be repeated in 7-10 days in the outpatient setting to ensure resolution. The working diagnosis at this time is viral myocarditis vs. stress cardiomyopathy. She will follow up with cardiology in 2- 4 weeks. In the meantime, her medications were adjusted to optimize cholesterol and blood pressure control. Her atorvastatin was increased to 40mg daily (her insurance would not cover rosuvastatin), her metoprolol was changed from tartrate to succinate, and 30mg of Imdur was added to her daily regimen. She was monitored on telemetry in the hospital to ensure she did not develop any arrhythmias, and remained in sinus rhythm throughout. She was advised to continue her other home medications as prescribed. Her potassium was found to be low in the hospital (3.3), and was supplemented with oral replacement (40 mEq). We recommend that she have this rechecked with her PCP. Of note, her heavy metals panel is still pending. Total Time Spent: Less than 30 minutes This includes examination of the patient, discharge planning, medication reconciliation, and communication with other providers. (Ignacia Way M.D.) Total Time Spent: Greater than 30 minutes (Leonie Fairbanks MD) Discharge Instructions Please refer to the electronic Patient Visit Report (Discharge Instructions) for additional information. (Ignacia Way M.D.) Additional Copies To Yashira Arizmendi C.R.N.P. Resident Tracking Resident Involvement: Resident Care Provided Care Provided: Adult [facility] (Ignacia Way M.D.) Reviewed: Pt Seen/Exam by Me (Leonie Fairbanks MD) History Resident Physician Supervision Note: I interviewed and examined the patient. Discussed with Dr. Way and agree with findings and plan as documented in the note. Any exceptions or clarifications are listed here: Pt admitted for intractable N/V, and chest pain. SHe was found to have elevated troponin, new wall motion abnormalities, and new onset systolic CHF/CM. No ECG changes and Cardiology did not feel this was an ischemic event. This may have been stress induced or perhaps a viral CM. She has had recent deaths in the family of her mother and MIL, and had a leukocytosis on admission from stress vs viral illness. Her LVEF was 40% on ECHO and she had grade 2 diastolic dysfunction from longstanding labile HTN. She was started on Imdur, switched to Toprol XL from metoprolol tartrate, and increased the intensity of her statin. She will have a f/u ECHO in 1 week with Cardiology to reassess her EF. Cardiology did not feel a cardiac catheterization was warranted at this time. She was doing great on the day of discharge and denies any N/V, no abd pain, no CP or SOB, not lightheaded. She was strongly encouraged cessation of marijuana use to which she is agreeable. Vitals reviewed tele NSR NAD, AAOx3 anicteric clerae, MMM, +palpable thyroid nodule on left RRR no mgr CTAB no wcr Abd soft NT ND +BS Ext no edema Documented By: Leonie Fairbanks (Leonie Fairbanks MD)
[2017-06-25 17:35] LABS: COLLECTION SAMPLE Venous; LEAD BLOOD <1 mcg/dL (<5)
== END 2017-06-23 13:35 | disposition home or self-care (01) | DRG 314 ==
LOC: C.EDB 17:24 → C.2T 21:16 → ENRESERV 21:49
PROVIDERS: ADMIT Hospitalist; ATTEND Family Medicine
DX: I40.0 Infective myocarditis (principal); I50.21 Acute systolic (congestive) heart failure; I50.32 Chronic diastolic (congestive) heart failure; I11.0 Hypertensive heart disease with heart failure; A08.4 Viral intestinal infection, unspecified; I95.9 Hypotension, unspecified; I25.10 Atherosclerotic heart disease of native coronary artery without angina pectoris; E78.5 Hyperlipidemia, unspecified; I25.2 Old myocardial infarction; F12.10 Cannabis abuse, uncomplicated; F17.200 Nicotine dependence, unspecified, uncomplicated; Z79.82 Long term (current) use of aspirin; Z79.899 Other long term (current) drug therapy; Z91.040 Latex allergy status; Z91.041 Radiographic dye allergy status

== ENCOUNTER → 2017-06-23 | Outpatient (CLI) | payer OTHER ==
[~2017-06-23] MED LIST changes: +CRS/10 PO; +IMDSR30 PO; +LPT40 PO; +SERT50TA PO; +TPRSR50 PO; -[UNRECOGNIZED DRUG - CODE] OTB
--- NOTE | 2017-06-23 14:46 | DIAGNOSTIC IMAGING REPORT ---
ULTRASOUND OF THE THYROID GLAND CLINICAL HISTORY: Thyroid nodules. COMPARISON STUDY: Thyroid ultrasound dated 01/18/2017. TECHNIQUE: Real-time, grayscale, and color flow sonography of the thyroid gland is performed utilizing a high-frequency linear transducer. Images are reviewed in the transverse and longitudinal planes. FINDINGS: Right lobe: The right lobe of the thyroid gland is normal in size and homogeneous in echotexture, measuring 4.8 x 1.5 x 1.5 cm. There are several colloid cysts in the right lobe measuring up to 6 mm. Left lobe: The left lobe of the thyroid gland is normal in size and homogeneous in echotexture, measuring 4.5 x 1.2 x 1.7 cm. A hypoechoic solid nodule in the midpole measures 0.6 x 0.5 x 0.5 cm (previously measured 0.7 x 0.6 x 0.6 cm). Subcentimeter colloid cysts are also noted. Isthmus: The thyroid isthmus is normal in appearance and measures 0.3 cm in AP diameter. IMPRESSION: A subcentimeter nodule is identified in the left lobe and bilateral subcentimeter colloid cysts are observed. These are of low suspicion and not significantly changed. Electronically signed by: Armin Sylvester M.D. 06/23/2017 2:44 PM Dictated Date/Time: 06/23/2017 2:42 PM
== END | disposition home or self-care (01) ==
LOC: C.ULTR 13:55
PROVIDERS: ATTEND Nurse Practitioner Adult Health
DX: E04.2 Nontoxic multinodular goiter (principal)

== ENCOUNTER 2017-06-27 07:23 | Inpatient (IN) | payer OTHER ==
[~2017-06-27] VITALS: Ht 170.2 cm; Wt 58.2 kg
[~2017-06-27 07:23] MED LIST changes: -ATOR-22 PO; -CRS/10 PO; -METO100T14 PO; -SERT50TA PO
[2017-06-27] MEDS ORDERED: SODIUM CHLORIDE 0.9% 1000ML 1,000 ML IV STA (07:40)
[2017-06-27] MEDS ORDERED: ONDANSETRON INJ 2 MG/ML 2 ML VIAL IV STA ×2 (07:40→08:54)
--- NOTE | 2017-06-27 08:00 | EMERGENCY ROOM VISIT NOTE ---
History First contact with patient: 07:29 Chief Complaint: HYPERTENSION Stated Complaint: HIGH BP, VOMITING History of Present Illness The patient is a 52 year old female who presents to the Emergency Room with complaints of hypertension and vomiting that started last night. Patient states that she has been dealing with these symptoms for several months, and has been admitted multiple times with significant workups, but they have not been in figure out why she continues to have symptoms. She states last night around 7 PM that she started to have high blood pressure 200s, she took a dose of her clonidine, however she states she vomited this back up and has not been able to keep anything down since. She has some mild epigastric pain that is exacerbated during the vomiting, and she complains of chills. She denies any chest pain, shortness of breath, dizziness or syncope, palpitations, headache, vision changes, neck pain, back pain, diarrhea or constipation, urinary complaints, or rash. Review of Systems A complete 10 point review of systems was reviewed with the patient with pertinent positives and negatives as per history of present illness. All else were negative. Past Medical/Surgical History Medical Problems: (1) MP (acute kidney injury) (2) Atherosclerosis Nos (3) Chronic hypertension (4) Elevated troponin (5) Elevated troponin I level (6) Hypertension Nos (7) HYPERTENSIVE URGENCY (8) Hypertensive urgency, malignant (9) Hypokalemia (10) Hyponatremia (11) Intractable nausea and vomiting (12) Malignant essential hypertension (13) Marijuana dependence (14) Nausea & vomiting (15) Non-ST elevation myocardial infarction (NSTEMI) due to mismatch of myocardial oxygen supply and demand (16) Prolonged QT interval (17) Renal artery stenosis (18) Uncontrolled hypertension Family History Cancer Diabetes mellitus Heart disease Hypertension Lung disease Social History Smoking Status: Former Smoker Alcohol Use: occasionally Drug Use: marijuana Marital Status: Housing Status: lives with family Occupation Status: employed Current/Historical Medications Scheduled Aspirin (Aspirin Chewable), 81 MG PO DAILY Atorvastatin (Atorvastatin Calcium), 40 MG PO HS Isosorbide Mononitrate (Isosorbide Mononitrate ER), 30 MG PO QAM Losartan Potassium (Losartan Potassium), 50 MG PO DAILY Metoprolol Succinate (Metoprolol Succinate ER), 100 MG PO BID Multivitamin (Multivitamin), 1 TAB PO DAILY Sertraline (Zoloft), 1 TAB PO QPM Scheduled PRN Clonidine Hcl (Catapres), 1 TAB PO Q6H PRN for Hypertension Ondasetron Odt (Zofran Odt), 4 MG SL Q6H PRN for Nausea or Vomiting Allergies Coded Allergies: Doxycycline (Verified Allergy, Unknown, rash, 06/27/17) Iodinated Diagnostic Agents (Verified Allergy, Unknown, `, 06/27/17) Latex1 -Allergic Contact Dermititis (Verified Allergy, Unknown, RASH, ) Meperidine (Verified Allergy, Unknown, HIVES, VOMITING, 06/27/17) Prochlorperazine (Verified Allergy, Unknown, ., 06/27/17) Ashley (Verified Allergy, Unknown, HIVES, 06/27/17) Tomato (Verified Allergy, Unknown, HIVES, 06/27/17) Uncoded Allergies: Hernandez Beans (Allergy, Unknown, HIVES, 11/27/16) Physical Exam Vital Signs Date Time Temp Pulse Resp B/P (MAP) Pulse Ox O2 Delivery O2 Flow Rate FiO2 06/27/17 12:22 36.7 95 16 182/122 96 Nasal Cannula 4.0 06/27/17 12:02 176/130 06/27/17 11:30 88 18 190/128 98 Nasal Cannula 4.0 06/27/17 10:37 94 20 197/136 95 Nasal Cannula 4.0 06/27/17 10:16 88 20 188/138 93 Nasal Cannula 4.0 06/27/17 10:02 88 16 187/135 Room Air 06/27/17 09:50 88 22 196/141 91 Nasal Cannula 4.0 06/27/17 09:33 90 17 198/139 93 Nasal Cannula 4.0 06/27/17 09:17 88 20 197/140 91 Nasal Cannula 4.0 06/27/17 08:47 92 Nasal Cannula 2.0 06/27/17 08:45 88 20 202/146 83 Room Air 06/27/17 08:45 92 06/27/17 08:19 81 18 197/135 98 Room Air 06/27/17 07:24 36.2 87 18 202/119 98 Room Air Physical Exam CONSTITUTIONAL: No acute distress, but appears uncomfortable, actively vomiting multiple times. Dehydrated, pale. Alert and oriented X 4 with normal affect. HEENT: Normocephalic, atraumatic. Pupils equal, round and reactive to light, EOMI. TMs normal. Pharynx normal. Dry mucous membranes. NECK: Supple, full active range of motion without discomfort. RESPIRATORY: Diminished in bases bilaterally with no wheezing, crackles, rhonchi or stridor. Equal expansion bilaterally. CARDIOVASCULAR: Regular rate and rhythm with no murmurs, rubs or gallops. Normal peripheral perfusion. No edema. GASTROINTESTINAL: Mild epigastric tenderness, no rebound or guarding. Abdomen is otherwise soft and nondistended. Bowel sounds present in all quadrants. MUSCULOSKELETAL: Full range of motion of all joints without discomfort. INTEGUMENTARY: No rash or other significant dermatologic conditions noted. NEUROLOGIC: Cranial nerves II-XII grossly intact. No focal neurologic deficits noted. Medical Decision & Procedures ER Provider Diagnostic Interpretation: CHEST 2 VIEWS ROUTINE CLINICAL HISTORY: hypertension dyspnea COMPARISON STUDY: 06/20/2017 FINDINGS: Unchanging components of interstitial pulmonary edema. The cardiac silhouette shows no evidence for enlargement. Diaphragms smooth. Very slight bite of the lateral costophrenic angles. IMPRESSION: Interstitial pulmonary edema unchanged from the prior study. Laboratory Results 06/27/17 07:55 Red Blood Count 4.19, Mean Corpuscular Volume 95.2, Mean Corpuscular Hemoglobin 31.7, Mean Corpuscular Hemoglobin Concent 33.3, Mean Platelet Volume 10.8, Neutrophils (%) (Auto) 83.9, Lymphocytes (%) (Auto) 13.1, Monocytes (%) (Auto) 1.9, Eosinophils (%) (Auto) 0.5, Basophils (%) (Auto) 0.4, Neutrophils # (Auto) 9.04, Lymphocytes # (Auto) 1.41, Monocytes # (Auto) 0.21, Eosinophils # (Auto) 0.05, Basophils # (Auto) 0.04 06/27/17 07:55 Test 06/27/17 07:55 White Blood Count 10.77 K/uL (4.8-10.8) Red Blood Count 4.19 M/uL (4.2-5.4) Hemoglobin 13.3 g/dL (12.0-16.0) Hematocrit 39.9 % (37-47) Mean Corpuscular Volume 95.2 fL (80-100) Mean Corpuscular Hemoglobin 31.7 pg (25-34) Mean Corpuscular Hemoglobin Concent 33.3 g/dl (32-36) Platelet Count 402 K/uL (130-400) Mean Platelet Volume 10.8 fL (7.4-10.4) Neutrophils (%) (Auto) 83.9 % Lymphocytes (%) (Auto) 13.1 % Monocytes (%) (Auto) 1.9 % Eosinophils (%) (Auto) 0.5 % Basophils (%) (Auto) 0.4 % Neutrophils # (Auto) 9.04 K/uL (1.4-6.5) Lymphocytes # (Auto) 1.41 K/uL (1.2-3.4) Monocytes # (Auto) 0.21 K/uL (0.11-0.59) Eosinophils # (Auto) 0.05 K/uL (0-0.5) Basophils # (Auto) 0.04 K/uL (0-0.2) RDW Standard Deviation 45.1 fL (36.4-46.3) RDW Coefficient of Variation 13.2 % (11.5-14.5) Immature Granulocyte % (Auto) 0.2 % Immature Granulocyte # (Auto) 0.02 K/uL (0.00-0.02) Anion Gap 8.0 mmol/L (3-11) Est Creatinine Clear Calc Drug Dose 68.4 ml/min Estimated GFR () 83.6 Estimated GFR (Non- 72.1 BUN/Creatinine Ratio 22.0 (10-20) Calcium Level 9.4 mg/dl (8.5-10.1) Total Bilirubin 0.2 mg/dl (0.2-1) Direct Bilirubin 0.1 mg/dl (0-0.2) Aspartate Amino Transf (AST/SGOT) 16 U/L (15-37) Alanine Aminotransferase (ALT/SGPT) 20 U/L (12-78) Alkaline Phosphatase 72 U/L (45-117) Total Creatine Kinase 53 U/L (26-192) Creatine Kinase MB 2.3 ng/ml (0.5-3.6) Creatine Kinase MB Ratio 4.3 (0-3.0) Pro-B-Type Natriuretic Peptide 4052 pg/ml (0-900) Total Protein 7.6 gm/dl (6.4-8.2) Albumin 3.7 gm/dl (3.4-5.0) Lipase 113 U/L (73-393) Thyroid Stimulating Hormone (TSH) 1.440 uIu/ml (0.300-4.500) Medications Administered Medications (Trade) Dose Ordered Sig/Yeimy Route Start Time Stop Time Status Last Admin Dose Admin Sodium Chloride 1,000 ml @ 999 mls/hr Q1H1M STAT IV 06/27/17 07:40 06/27/17 08:40 DC 06/27/17 07:40 999 MLS/HR Ondansetron HCl (Zofran Inj) 4 mg NOW STAT IV 06/27/17 07:40 06/27/17 07:46 DC 06/27/17 08:13 4 MG Ondansetron HCl (Zofran Inj) 4 mg NOW STAT IV 06/27/17 08:54 06/27/17 09:12 DC 06/27/17 09:20 4 MG Nitroglycerin (Nitrostat Tab) 0.4 mg STK-MED ONCE .ROUTE 06/27/17 09:02 06/27/17 09:03 DC 06/27/17 09:20 0.4 MG Aspirin (Aspirin Chew) 324 mg STK-MED ONCE .ROUTE 06/27/17 09:16 06/27/17 09:17 DC 06/27/17 09:20 324 MG Nitroglycerin (Nitroglycerin 2% Oint) 1 inch STK-MED ONCE .ROUTE 06/27/17 09:16 06/27/17 09:17 DC 06/27/17 09:19 1 INCH Furosemide (Lasix Inj) 40 mg NOW STAT IV 06/27/17 09:20 06/27/17 09:22 DC 06/27/17 09:37 40 MG Lorazepam (Ativan Tab) 0.5 mg Q4H PRN PO 06/27/17 10:45 07/27/17 10:44 06/27/17 12:49 0.5 MG Ondansetron HCl (Zofran Inj) 4 mg Q4H PRN IV 06/27/17 10:45 07/27/17 10:44 06/27/17 12:49 4 MG Hydralazine HCl (HydrALAZINE INJ) 10 mg ONE ONCE IV. 06/27/17 11:45 06/27/17 11:46 DC 06/27/17 11:45 10 MG ECG Indication: vomiting, other (hypertension) Rate (beats per minute): 84 Rhythm: normal sinus, sinus with SA Findings: LAFB, no acute ischemic change, no ectopy Change: no significant change Medical Decision CC: Patient presenting with complaint of vomiting and high blood pressure Interpretation of Labs: No leukocytosis, no anemia, hyperglycemia, no other significant joint abnormality, normal renal function, normal liver enzymes and lipase, normal CPK, normal TSH. Mildly elevated CPK-MB and troponin, significantly elevated pro-BNP. Differential Diagnosis: Includes, but not limited to hypertensive urgency/ emergency, ACS, CHF, pulmonary edema, pleural effusion, pneumonia, dehydration, gastroenteritis, vomiting secondary to marijuana use, among others. Medication Reconciliation: I attest that I have personally reviewed the patient' s current medication list. Vital signs review: I reviewed the patient's vital signs and interpret them as follows: T: Afebrile; BP: Markedly hypertensive; HR: Within normal limits; RR : Within normal limits; Pulse Ox: Within normal limits on room air. Blood pressure screening: The patient was found to have an elevated blood pressure and was admitted for further management. Summary: Patient was evaluated at bedside, history and physical exam performed. She is actively vomiting upon my initial evaluation, appears uncomfortable and unwell. She denies any chest pain or shortness of breath, but does complain of some mild epigastric pain that is worse while she is vomiting. No bloody or bilious emesis. She appears pale, dehydrated with dry mouth and skin. She is noted to be significantly hypertensive with systolic blood pressures in the 200s and diastolic pressures in the 130s to 140s. EKG was reviewed at bedside, shows normal sinus rhythm with left anterior fascicular block, no significant changes from previous and no acute ischemic changes noted. Orders were placed at bedside for labs, UA, IV fluids for hydration, IV zofran for nausea, CXR to evaluate for cardiopulmonary disease. Patient is persistently hypertensive, and continues to vomit. She was given a sublingual nitroglycerin tablet, with some improvement in her blood pressure therefore Nitropaste was placed. She was given an additional dose of Zofran for nausea. Patient discussed with Dr. Elizabeth, who agrees with my assessment and plan. Labs reviewed as above, notable for slightly elevated troponin, which may be downtrending from previous troponin elevation 1 week ago, as well as elevated pro-BNP. Pulmonary edema noted on chest x-ray, and patient did develop hypoxia with need for oxygen, she was placed on 4 L due to dropping her oxygen levels to low 80s. IV fluids were stopped due to concern for pulmonary edema, although the patient does appear clinically dehydrated. She continues to vomit and have high blood pressure, with concern for CHF, the patient was given IV Lasix. I spoke on the phone with Dr. Martin, mold inspector, regarding the patient, he did not feel she warranted an acute cardiac intervention at this time, but agreed to consult while the patient is admitted. I spoke with Dr. Roberts, hospitalist, who agrees to admit the patient for further management. Patient reassessed multiple times throughout ED stay, her hypertension is somewhat improved, but she continues to be uncomfortable and intermittently vomiting or dry heaving. Patient and her were updated on all results and plan for admission, they 're agreeable to this plan. Patient was stable at time of admission. Impression Primary Impression: HYPERTENSIVE URGENCY Additional Impressions: Congestive heart failure, acute Intractable nausea and vomiting Departure Information Dispostion Admitted as an inpatient Condition FAIR Prescriptions Sertraline (Zoloft) 50 Mg Tab 1 TAB PO QPM for 30 Days, TAB 2 Refills Prov: Leonie Fairbanks MD 06/27/17 Referrals Yashira Arizmendi C.R.N.P. (PCP) Patient Instructions My [facility] Problem Qualifiers Additional Impressions: Congestive heart failure, acute Congestive heart failure type: unspecified congestive heart failure type Qualified Codes: I50.9 - Heart failure, unspecified Intractable nausea and vomiting Vomiting type: cyclical vomiting Qualified Codes: G43.A1 - Cyclical vomiting , intractable
[2017-06-27 08:14] LABS: BASO % 0.4 %; BASO ABS # 0.04 K/uL (0-0.2); COMPLETE YES; EOS % 0.5 %; HEMATOCRIT 39.9 % (37-47); IG% 0.2 %; LYMPH % 13.1 %; LYMPH ABS # 1.41 K/uL (1.2-3.4); MEAN CELL VOLUME 95.2 fL (80-100); MEAN CORPUSCULAR HEMOGLOBIN 31.7 pg (25-34); MEAN CORPUSCULAR HGB CONC 33.3 g/dl (32-36); MEAN PLATELET VOLUME 10.8 fL (7.4-10.4); MONO % 1.9 %; NEUT % 83.9 %; PLATELET COUNT 402 K/uL (130-400); RED BLOOD COUNT 4.19 M/uL (4.2-5.4); WHITE BLOOD COUNT 10.77 K/uL (4.8-10.8)
[2017-06-27 08:28] LABS: CALCIUM 9.4 mg/dl (8.5-10.1); CREATININE 0.92 mg/dl (0.60-1.20); POTASSIUM 4.1 mmol/L (3.5-5.1)
--- NOTE | 2017-06-27 08:40 | DIAGNOSTIC IMAGING REPORT ---
CHEST 2 VIEWS ROUTINE CLINICAL HISTORY: hypertension dyspnea COMPARISON STUDY: 06/20/2017 FINDINGS: Unchanging components of interstitial pulmonary edema. The cardiac silhouette shows no evidence for enlargement. Diaphragms smooth. Very slight bite of the lateral costophrenic angles. IMPRESSION: Interstitial pulmonary edema unchanged from the prior study. The above report was generated using voice recognition software. It may contain grammatical, syntax or spelling errors. Electronically signed by: Walt Fernandez M.D. 06/27/2017 8:39 AM Dictated Date/Time: 06/27/2017 8:38 AM
[2017-06-27 08:46] LABS: CKMB/CK RATIO 4.3 (0-3.0); THYROID STIMULATING HORMONE 1.44 uIu/ml (0.300-4.500)
[2017-06-27] MEDS ORDERED: ASPIRIN 324 MG CHEW PO STA (08:48)
[2017-06-27] MEDS ORDERED: NITROGLYCERIN 0.4 MG SL PER TAB CHARGE SL STA (08:48)
[2017-06-27] MEDS ORDERED: NITROGLYCERIN 0.4 MG SL PER TAB CHARGE ONE (09:02)
[2017-06-27] MEDS ORDERED: ASPIRIN 324 MG CHEW ONE (09:16)
[2017-06-27] MEDS ORDERED: NITROGLYCERIN OINT 2% 1GM PACKET ONE ×2 (09:16→09:35)
[2017-06-27] MEDS ORDERED: FUROSEMIDE 40 MG/4 ML VIAL IV STA (09:20)
[2017-06-27 09:27] LABS: URINE APPEARANCE TURBID (CLEAR); URINE BILIRUBIN NEG (NEG); URINE COLOR YELLOW; URINE NITRITE NEG (NEG); URINE PH 8.5 (4.5-7.5); URINE SPECIFIC GRAVITY 1.017 (1.000-1.030); UROBILINOGEN NEG (NEG)
[2017-06-27 09:33] LABS: MANUAL MICROSCOPIC REQUIRED? NO; REVIEW REQ? NO
[2017-06-27 09:34] LABS: SULFASALICYLIC ACID POS (NEG)
--- NOTE | 2017-06-27 10:34 | History and Physical ---
History & Physical Date & Time of Service: Jun 27, 2017 at 10:09 Chief Complaint: High Bp, Vomiting Primary Care Physician: Yashira Arizmendi C.R.N.P. History of Present Illness Source: patient, family Ms. Velasquez presents today for nausea and vomiting with an elevated blood pressure. She was awakened in the night with vomiting and then at that time her blood pressures began to increase. She had a blood pressure of 144/96 at that time but the pressure got to 209/128. She also became diaphoretic. She denies chest pain or sob however her sats did drop 82-89% when off supplemental O2. She took her clonidine but couldn't keep it down. Pmhx of diverticulitis, gastritis, mycardial infarction, hypertensive urgency, MS. 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 Chronic combined systolic/diastolic CHF Hypertension Marijuana abuse Intractable nausea/vomiting Hypokalemia Mild mitral regurgitation Anxiety/depression Diverticulosis PSHx: Hernia repair Hysterectomy Family History Cancer Diabetes mellitus Heart disease Hypertension Lung disease Social History Smoking Status: Former Smoker Drug Use: marijuana Marital Status: Housing status: lives with family Occupational Status: employed Immunizations History of Influenza Vaccine: Unknown History of Tetanus Vaccine?: Unknown History of Pneumococcal: Unknown History of Hepatitis B Vaccine: Unknown Multi-Drug Resistant Organisms History of MDRO: No Allergies Coded Allergies: Doxycycline (Verified Allergy, Unknown, rash, 06/27/17) Iodinated Diagnostic Agents (Verified Allergy, Unknown, `, 06/27/17) Latex1 -Allergic Contact Dermititis (Verified Allergy, Unknown, RASH, ) Meperidine (Verified Allergy, Unknown, HIVES, VOMITING, 06/27/17) Prochlorperazine (Verified Allergy, Unknown, ., 06/27/17) [place] (Verified Allergy, Unknown, HIVES, 06/27/17) Tomato (Verified Allergy, Unknown, HIVES, 06/27/17) Uncoded Allergies: Hernandez Beans (Allergy, Unknown, HIVES, 11/27/16) Home Medications Scheduled Aspirin (Aspirin Chewable), 81 MG PO DAILY Atorvastatin (Atorvastatin Calcium), 40 MG PO HS Isosorbide Mononitrate (Isosorbide Mononitrate ER), 30 MG PO QAM Losartan Potassium (Losartan Potassium), 50 MG PO DAILY Metoprolol Succinate (Metoprolol Succinate ER), 100 MG PO BID Multivitamin (Multivitamin), 1 TAB PO DAILY Scheduled PRN Clonidine Hcl (Catapres), 1 TAB PO Q6H PRN for Hypertension Ondasetron Odt (Zofran Odt), 4 MG SL Q6H PRN for Nausea or Vomiting Review of Systems Constitutional: + sweats, No fever, No chills Respiratory: No cough, No shortness of breath Cardiovascular: No chest pain, No edema, No palpitations Abdomen: + nausea, + vomiting, No diarrhea, No constipation Genitourinary - Female: No dysuria Physical Exam Vital Signs Date Time Temp Pulse Resp B/P (MAP) Pulse Ox O2 Delivery O2 Flow Rate FiO2 06/27/17 10:02 88 16 187/135 Room Air 06/27/17 09:50 88 22 196/141 91 Nasal Cannula 4.0 06/27/17 09:33 90 17 198/139 93 Nasal Cannula 4.0 06/27/17 09:17 88 20 197/140 91 Nasal Cannula 4.0 06/27/17 08:47 92 Nasal Cannula 2.0 06/27/17 08:45 88 20 202/146 83 Room Air 06/27/17 08:45 92 06/27/17 08:19 81 18 197/135 98 Room Air 06/27/17 07:24 36.2 87 18 202/119 98 Room Air Diagnostics Laboratory Results Results Past 24 Hours Test 06/27/17 07:55 06/27/17 08:53 Range/Units White Blood Count 10.77 4.8-10.8 K/uL Red Blood Count 4.19 4.2-5.4 M/uL Hemoglobin 13.3 12.0-16.0 g/dL Hematocrit 39.9 37-47 % Mean Corpuscular Volume 95.2 80-100 fL Mean Corpuscular Hemoglobin 31.7 25-34 pg Mean Corpuscular Hemoglobin Concent 33.3 32-36 g/dl Platelet Count 402 130-400 K/uL Mean Platelet Volume 10.8 7.4-10.4 fL Neutrophils (%) (Auto) 83.9 % Lymphocytes (%) (Auto) 13.1 % Monocytes (%) (Auto) 1.9 % Eosinophils (%) (Auto) 0.5 % Basophils (%) (Auto) 0.4 % Neutrophils # (Auto) 9.04 1.4-6.5 K/uL Lymphocytes # (Auto) 1.41 1.2-3.4 K/uL Monocytes # (Auto) 0.21 0.11-0.59 K/uL Eosinophils # (Auto) 0.05 0-0.5 K/uL Basophils # (Auto) 0.04 0-0.2 K/uL RDW Standard Deviation 45.1 36.4-46.3 fL RDW Coefficient of Variation 13.2 11.5-14.5 % Immature Granulocyte % (Auto) 0.2 % Immature Granulocyte # (Auto) 0.02 0.00-0.02 K/uL Sodium Level 140 136-145 mmol/L Potassium Level 4.1 3.5-5.1 mmol/L Chloride Level 106 98-107 mmol/L Carbon Dioxide Level 26 21-32 mmol/L Anion Gap 8.0 3-11 mmol/L Blood Urea Nitrogen 20 7-18 mg/dl Creatinine 0.92 0.60-1.20 mg/dl Est Creatinine Clear Calc Drug Dose 68.4 ml/min Estimated GFR () 83.6 Estimated GFR (Non- 72.1 BUN/Creatinine Ratio 22.0 10-20 Random Glucose 171 70-99 mg/dl Calcium Level 9.4 8.5-10.1 mg/dl Total Bilirubin 0.2 0.2-1 mg/dl Direct Bilirubin 0.1 0-0.2 mg/dl Aspartate Amino Transf (AST/SGOT) 16 15-37 U/L Alanine Aminotransferase (ALT/SGPT) 20 12-78 U/L Alkaline Phosphatase 72 45-117 U/L Total Creatine Kinase 53 26-192 U/L Creatine Kinase MB 2.3 0.5-3.6 ng/ml Creatine Kinase MB Ratio 4.3 0-3.0 Troponin I 0.521 0-0.045 ng/ml Pro-B-Type Natriuretic Peptide 4052 0-900 pg/ml Total Protein 7.6 6.4-8.2 gm/dl Albumin 3.7 3.4-5.0 gm/dl Lipase 113 73-393 U/L Thyroid Stimulating Hormone (TSH) 1.440 0.300-4.500 uIu/ml Urine Color YELLOW Urine Appearance TURBID CLEAR Urine pH 8.5 4.5-7.5 Urine Specific [place] 1.017 1.000-1.030 Urine Protein 2+ NEG Urine Glucose (UA) NEG NEG Urine Ketones NEG NEG Urine Occult Blood TRACE NEG Urine Nitrite NEG NEG Urine Bilirubin NEG NEG Urine Urobilinogen NEG NEG Urine Leukocyte Esterase NEG NEG Urine WBC (Auto) 1-5 0-5 /hpf Urine RBC (Auto) 5-10 0-4 /hpf Urine Hyaline Casts (Auto) 1-5 0-5 /lpf Urine Epithelial Cells (Auto) 10-20 0-5 /lpf Urine Bacteria (Auto) NEG NEG Impression Assessment and Plan Ms. Velasquez is a 52 year old woman here for vomiting and hypertensive urgency. She was recently here and discharged Jun 20 for viral myocarditis vs. stress cardiomyopathy where she was found to have new wall motion abnormalities and reduced EF on echocardiogram. She did not undergo cardiac catheterization at that time. Uncontrolled hypertension/hypertensive urgency/vomiting - refractory to lasix/nitrate given in ED. - 10 mg iv hydralazine now and prn - will procede carefully with attempting to bring her blood pressures dropped to 80s/60s last hospital admission after attempts to manage high blood pressures. PRN home clonidine po as well. Continue home blood pressure medications as soon as able to tolerate po. - per outpatient notes, there was suspicion that her blood pressure elevations were in part anxiety related and she was started on an SSRI which was achieving good response. She did not have any evidence of renal artery stenosis on renal artery duplex or MRA and did not have elevated renin levels, or metanephrines in plasma or urine. She did not like the side effects of benzodiazepines - nephrology consulted for help managing blood pressures Acute hypoxemic respiratory failure/ Acute on chronic systolic heart failure with EF 40% - BNP elevated at 4052, unchanged pulm htn on xray - 40 iv lasix administered in ED - Continues to desaturate 82-89% when off O2, good response to lasix given but may need further diuresis today. Continue supplemental O2 as needed. - Echo - patient had changes on her echocardiogram at her last visit and was due to have a repeat - cardiology consulted Elevated troponin - continue to trend - per ED discussion with cardiology, this may be continued drop from elevated troponin at last admission - patient is not having chest pain Vomiting/ ?Cyclic vomiting syndrome secondary to marijuana usage - Zofran prn - lipase was wnl, no abd pain - patient's symptoms seem to occur while in her house initially - carboxyhemoglobin wnl - Patient continues to be regular marijuana user and the vomiting appears to start before the blood pressure goes up - cyclic vomiting syndrome? Full code DVT prophylaxis - heparin subq Level of Care Telemetry Advanced Directives Existing Advance Directive: Yes Existing Living Will: Yes Existing Power of Envelope Machine Operator: Yes () Resuscitation Status FULL RESUSCITATION VTE Prophylaxis VTE Risk Assessment Done? Y/N: Yes Risk Level: Moderate Given or contraindicated: Unfractionated heparin SQ, SCD's Social Service Consult None Apply Reviewed: Pt Seen/Exam by Me History DATABASE ANALYST Supervision Note: I interviewed and examined the patient. Discussed with DARREN Abad and agree with findings and plan as documented in the note. Any exceptions or clarifications are listed here: Pt presents as a readmission with her usual presentation of acute onset of N/V followed by accelerated HTN. This time though, she denies any chest pain at all. SHe was discharged 4 days ago after a similar presentation except had additional CP, and was found to have an elevated troponin, new WMAs on ECHO, and new systolic CHF with EF 40%. A cardiac cath was not deemed necessary during that admission by Cardiology. She was started on isosorbide and her metoprolol was changed from tartrate to succinate 100mg bid. Pt reports she did smoke marijuana once she was at home; it helps her anxiety. She was started on Zoloft 1 month ago at 50mg daily and it has helped somewhat. Since receiving Zofran, she is feeling hungry now and wants to eat food PMH/PSH/MEDS/ALL/SH/FH reviewed ROS reviewed Vitals reviewed-severely hypertensive on admission, now improved with IV hydralazine Drowsy, falls asleep easily during interview but wakes up promptly with verbal stimulus NAD RRR no mgr CTAB no wcr Abd +BS soft NT ND Ext no edema, 2+ DP pulses This pt is a 52 yo female with a h/o labile HTN, marijuana abuse, recent possible stress-induced CM, chronic combined systolic and diastolic CHF, mitral regurgitation, anxiety disorder, and cyclical vomiting, with multiple admissions to the hospital for intractable vomiting and hypertensive urgency. SHe is here again with the same, as well as with acute on chronic combined systolic and diastolic CHF. -diurese with IV lasix, follow PRP, repeat ECHO to see if EF has recovered as Cardiology requested from last admission in 1 week's time -checked carboxyhemoglobin to r/o CO poisoning--> normal level but does not necessarily rule it completely out -again, strongly encouraged Marijuana cessation as this likely plays a role in her cyclical vomiting -she smokes MJ for her anxiety--> was started on Zoloft 1 month ago--> will increase Zoloft to 100mg daily-she agrees -for BP-manage with IV meds until taking po, then revert to home meds plus IV hydralazine prn -Appreciate Cardiology and Nephrology consultations for BP management -ECG with possible J-point elevation, not ST elevations, no CP, troponin mildly elevated but could be coming down from previous admission when it peaked at 6-- > continue to trend troponin Documented By: Leonie Fairbanks
[2017-06-27] MEDS ORDERED: LORAZEPAM 0.5 MG TAB PO PRN (10:45)
[2017-06-27] MEDS ORDERED: HydrALAZINE HCL 20 MG/ML VIAL IV. PRN (10:45)
[2017-06-27] MEDS ORDERED: POLYETHYLENE (MIRALAX) 17 GM PACK PO PRN (10:45)
[2017-06-27] MEDS ORDERED: CLONIDINE HCL 0.1 MG TAB PO PRN (10:45)
[2017-06-27] MEDS ORDERED: ONDANSETRON INJ 2 MG/ML 2 ML VIAL IV PRN (10:45)
[2017-06-27] MEDS ORDERED: ACETAMINOPHEN 325 MG TAB PO PRN (10:45)
[2017-06-27] MEDS ORDERED: METOPROLOL TARTRATE 1 MG/ML VIAL IV. PRN (10:45)
[2017-06-27] MEDS ORDERED: ALUMINUM/MAGNESIUM/SIMETH (MAALOX MAX) 30 ML UDC PO PRN (10:45)
[2017-06-27] MEDS ORDERED: MoRPHine SULFATE 2 MG/ML CARP IV PRN (10:45)
[2017-06-27] MEDS ORDERED: HydrALAZINE HCL 20 MG/ML VIAL IV. STA (10:57)
[2017-06-27] MEDS ORDERED: HydrALAZINE HCL 20 MG/ML VIAL IV. ONE (11:45)
[2017-06-27 12:22] VITALS: BP 182/122; PULSE 95; TEMP 36.7; O2SAT 96; Ht 170.2 cm; Wt 58.2 kg
[2017-06-27 13:30] VITALS: BP 160/103
[2017-06-27] MEDS ORDERED: METOPROLOL TARTRATE 1 MG/ML VIAL IV PRN (13:30)
[2017-06-27] MEDS ORDERED: NITROGLYCERIN OINT 2% 1GM PACKET EXT SCH (15:00)
[2017-06-27] MEDS ORDERED: FUROSEMIDE INJ 40 MG in SYRINGE 0 ML IV ONE (15:15)
--- NOTE | 2017-06-27 15:35 | Nephrology Consultation ---
Nephrology Consultation Date & Providers Date of Consultation: Jun 27, 2017. Primary Care Provider: Yashira Arizmendi C.R.N.P. Referring Provider: Reason for Consultation Management of hypertensive urgency. History of Present Illness Cyndie is a 52 y o female with past medical history significant for poorly- controlled hypertension and cardiomyopathy admitted to the hospital with vomiting and hypertensive urgency. Electronic medical records including labs and imaging are reviewed in detail during patient's visit. Cyndie presented emergency room last night after she started having nausea and vomiting. And did have any abdominal pain, fever, chills, denies any sick contact or outside. Systolic blood pressure a he prior to her symptoms started was 140 however after patient started vomiting her blood pressure started to increase, she to clonidine but keep it down. Systolic blood pressure was above 200. Since she presented to the emergency room her systolic blood pressure was staying at 1 80s to 200 was given IV Lasix clonidine without significant improvement and admitted hospital for further management. She was continued losartan 50, metoprolol 100 twice a day p.r.n. hydralazine and clonidine and blood pressure now start to improve. She continues to have nausea. Denies any headache or visual changes. Electrolytes are normal renal function normal. Urinalysis with proteinuria and microscopic hematuria. She had recurrent hospital admission for hypertensive urgency/emergency. Had workup as an outpatient by Dr. Oscar including evaluation for hyperaldosteronism renal ultrasound and renal artery Doppler workup for pheochromocytoma all came back negative. Has decent GFR, baseline creatinine 0.9-1.0. Allergies Coded Allergies: Doxycycline (Verified Allergy, Unknown, rash, 06/27/17) Iodinated Diagnostic Agents (Verified Allergy, Unknown, `, 06/27/17) Latex1 -Allergic Contact Dermititis (Verified Allergy, Unknown, RASH, ) Meperidine (Verified Allergy, Unknown, HIVES, VOMITING, 06/27/17) Prochlorperazine (Verified Allergy, Unknown, ., 06/27/17) [place] (Verified Allergy, Unknown, HIVES, 06/27/17) Tomato (Verified Allergy, Unknown, HIVES, 06/27/17) Uncoded Allergies: Hernandez Beans (Allergy, Unknown, HIVES, 11/27/16) Inpatient Medications Current Inpatient Medications Medications (Trade) Dose Ordered Sig/[place] Route Start Time Stop Time Status Last Admin Dose Admin Nitroglycerin (Nitroglycerin 2% Oint) 1 inch Q6H EXT 06/27/17 15:00 07/27/17 14:59 Heparin Sodium (Porcine) (Heparin Sq 5000 Unit/0.5ml) 5,000 unit Q12 SQ 06/27/17 21:00 07/27/17 20:59 Acetaminophen (Tylenol Tab) 650 mg Q4H PRN PO 06/27/17 10:45 07/27/17 10:44 Al Hydrox/Mg Hydrox/Simethicone (Maalox Max Susp) 15 ml Q4H PRN PO 06/27/17 10:45 07/27/17 10:44 Morphine Sulfate (MoRPHine SULFATE INJ) 2 mg Q30M PRN IV 06/27/17 10:45 07/11/17 10:44 Polyethylene (Miralax Powder Packet) 17 gm DAILY PRN PO 06/27/17 10:45 07/27/17 10:44 Aspirin (Aspirin Chew) 81 mg DAILY PO 06/28/17 09:00 07/28/17 08:59 Atorvastatin Calcium (Lipitor Tab) 40 mg HS PO 06/27/17 21:00 07/27/17 20:59 Clonidine HCl (Catapres Tab) 0.1 mg Q6H PRN PO 06/27/17 10:45 07/27/17 10:44 Isosorbide Mononitrate (Imdur Ext Rel Tab) 30 mg QAM PO 06/28/17 09:00 07/28/17 08:59 Losartan Potassium (coZAAR TAB) 50 mg DAILY PO 06/28/17 09:00 07/28/17 08:59 Metoprolol Succinate (Toprol Xl Tab) 100 mg BID PO 06/27/17 21:00 07/27/17 20:59 Multivitamins (Multivitamin Tab) 1 tab DAILY PO 06/28/17 09:00 07/28/17 08:59 Hydralazine HCl (HydrALAZINE INJ) 10 mg Q4H PRN IV. 06/27/17 10:45 07/27/17 10:44 Lorazepam (Ativan Tab) 0.5 mg Q4H PRN PO 06/27/17 10:45 07/27/17 10:44 06/27/17 12:49 0.5 MG Ondansetron HCl (Zofran Inj) 4 mg Q4H PRN IV 06/27/17 10:45 07/27/17 10:44 06/27/17 12:49 4 MG Family History Cancer Diabetes mellitus Heart disease Hypertension Lung disease Social History Smoking Status: Former Smoker Drug Use: marijuana Marital Status: Housing Status: lives with family Occupation: employed Review of Systems A complete review of systems was performed. Pertinent positives are noted above. All other systems are negative. Physical Exam Date Time Temp Pulse Resp B/P (MAP) Pulse Ox O2 Delivery O2 Flow Rate FiO2 06/27/17 12:22 36.7 95 16 182/122 96 Nasal Cannula 4.0 06/27/17 12:02 176/130 06/27/17 11:30 88 18 190/128 98 Nasal Cannula 4.0 06/27/17 10:37 94 20 197/136 95 Nasal Cannula 4.0 06/27/17 10:16 88 20 188/138 93 Nasal Cannula 4.0 06/27/17 10:02 88 16 187/135 Room Air 06/27/17 09:50 88 22 196/141 91 Nasal Cannula 4.0 06/27/17 09:33 90 17 198/139 93 Nasal Cannula 4.0 06/27/17 09:17 88 20 197/140 91 Nasal Cannula 4.0 06/27/17 08:47 92 Nasal Cannula 2.0 06/27/17 08:45 88 20 202/146 83 Room Air 06/27/17 08:45 92 06/27/17 08:19 81 18 197/135 98 Room Air 06/27/17 07:24 36.2 87 18 202/119 98 Room Air GENERAL: Middle-aged female, AAA x 3, pleasant, healthy-appearing, not in any distress. HEENT: Atraumatic, normocephalic. NECK: Supple, no JVD, no carotid bruit appreciated. ENT: No sinus tenderness MOUTH and THROAT: Moist oral mucosa, no oral ulcer or pharyngeal erythema RESPIRATORY: Normal breathing efforts, no accessory muscle use, clear to auscultation bilaterally, no wheezes or rales. CARDIOVASCULAR: S1, S2 normal, rate rhythm regular. ABDOMEN: Soft, nontender, positive bowel sound. MUSCULOSKELETAL: No CVA tenderness. No joint swelling, erythema or tenderness. Normal range of motion. SKIN: No skin rash EXTREMITY: No lower extremity edema NEURO: No gross focal neurological deficit, speech fluent. PSYCHIATRY: Normal mood and judgment Laboratory Results Last 24 Hours Test 06/27/17 07:55 06/27/17 08:53 06/27/17 12:28 White Blood Count 10.77 K/uL Red Blood Count 4.19 M/uL Hemoglobin 13.3 g/dL Hematocrit 39.9 % Mean Corpuscular Volume 95.2 fL Mean Corpuscular Hemoglobin 31.7 pg Mean Corpuscular Hemoglobin Concent 33.3 g/dl Platelet Count 402 K/uL Mean Platelet Volume 10.8 fL Neutrophils (%) (Auto) 83.9 % Lymphocytes (%) (Auto) 13.1 % Monocytes (%) (Auto) 1.9 % Eosinophils (%) (Auto) 0.5 % Basophils (%) (Auto) 0.4 % Neutrophils # (Auto) 9.04 K/uL Lymphocytes # (Auto) 1.41 K/uL Monocytes # (Auto) 0.21 K/uL Eosinophils # (Auto) 0.05 K/uL Basophils # (Auto) 0.04 K/uL RDW Standard Deviation 45.1 fL RDW Coefficient of Variation 13.2 % Immature Granulocyte % (Auto) 0.2 % Immature Granulocyte # (Auto) 0.02 K/uL Sodium Level 140 mmol/L Potassium Level 4.1 mmol/L Chloride Level 106 mmol/L Carbon Dioxide Level 26 mmol/L Anion Gap 8.0 mmol/L Blood Urea Nitrogen 20 mg/dl Creatinine 0.92 mg/dl Est Creatinine Clear Calc Drug Dose 68.4 ml/min Estimated GFR () 83.6 Estimated GFR (Non- 72.1 BUN/Creatinine Ratio 22.0 Random Glucose 171 mg/dl Calcium Level 9.4 mg/dl Total Bilirubin 0.2 mg/dl Direct Bilirubin 0.1 mg/dl Aspartate Amino Transf (AST/SGOT) 16 U/L Alanine Aminotransferase (ALT/SGPT) 20 U/L Alkaline Phosphatase 72 U/L Total Creatine Kinase 53 U/L Creatine Kinase MB 2.3 ng/ml Creatine Kinase MB Ratio 4.3 Troponin I 0.521 ng/ml Pro-B-Type Natriuretic Peptide 4052 pg/ml Total Protein 7.6 gm/dl Albumin 3.7 gm/dl Lipase 113 U/L Thyroid Stimulating Hormone (TSH) 1.440 uIu/ml Urine Color YELLOW Urine Appearance TURBID Urine pH 8.5 Urine Specific [place] 1.017 Urine Protein 2+ Urine Glucose (UA) NEG Urine Ketones NEG Urine Occult Blood TRACE Urine Nitrite NEG Urine Bilirubin NEG Urine Urobilinogen NEG Urine Leukocyte Esterase NEG Urine WBC (Auto) 1-5 /hpf Urine RBC (Auto) 5-10 /hpf Urine Hyaline Casts (Auto) 1-5 /lpf Urine Epithelial Cells (Auto) 10-20 /lpf Urine Bacteria (Auto) NEG Carboxyhemoglobin 1.6 % [facility] Impression (1) HYPERTENSIVE URGENCY (2) Chronic hypertension (3) Nausea & vomiting 52 old female with hypertensive urgency nausea vomiting with history of recurrent admission for hypertensive urgency all prior workup negative. Has well preserved GFR but Urinalysis with proteinuria and microscopic hematuria. no significant proteinuria. She reports taking medications regularly denies NSAID use. On admission systolic blood pressure was 209 which slowly started to improve. Currently she continues to have nausea and vomiting denies any headache or visual changes. No hematuria or flank pain. Had extensive workup as an outpatient for secondary causes for hypertension, all w/u unremarkable. Recommendations --No further changes in her antihypertensive regimen at this point as blood pressure seems to be improving --unclear etiology for nausea and vomiting may not be related to elevated blood pressure as blood pressure prior to her symptoms started was otherwise acceptable --if blood pressure continues to be above goal by tomorrow, will consider 1st increasing losartan to 100 daily and if needed will add amlodipine --avoid IV fluid, avoid NSAIDs --no further workup extensive outpatient workup was otherwise unremarkable --check electrolyte daily with ongoing nausea vomiting. --repeat UA and PCR Thank you for allowing me to participate in your patient's care. It was a pleasure to see Cyndie
[2017-06-27 15:38] VITALS: BP 134/87; PULSE 90; TEMP 37; O2SAT 99
[2017-06-27] MEDS ORDERED: SERT50TA PO (15:54)
[2017-06-27 16:36] LABS: URINE APPEARANCE CLEAR (CLEAR); URINE BILIRUBIN NEG (NEG); URINE COLOR YELLOW; URINE EPITHELIAL CELL AUTO 20-30 /lpf (0-5); URINE NITRITE NEG (NEG); URINE SPECIFIC GRAVITY 1.012 (1.000-1.030); UROBILINOGEN NEG (NEG)
[2017-06-27 16:59] LABS: MANUAL MICROSCOPIC REQUIRED? NO; REVIEW REQ? NO; SULFASALICYLIC ACID POS (NEG)
[2017-06-27 17:00] LABS: CREATININE, URINE 29.4 mg/dl; URINE PROTIEN/CREAT RATIO 1.9 (0-0.2); URINE TOTAL PROTEIN 56.2 mg/dl (0-11.9)
[2017-06-27 19:27] VITALS: BP 138/82; PULSE 87; TEMP 37.1; O2SAT 100
[2017-06-27] MEDS: NITROGLYCERIN OINT 2% 1GM PACKET EXT SCH (21:00)
[2017-06-27] MEDS: HEPARIN SOD 5000 UNIT/0.5 ML CARP SQ SCH (21:00)
[2017-06-27] MEDS: METOPROLOL SUCC 50MG EXT REL TAB PO SCH (21:00)
[2017-06-27] MEDS: ATORVASTATIN 40 MG TAB PO SCH (21:34)
[2017-06-27] MEDS: SERTRALINE HCL 100 MG TAB PO SCH (21:34)
[2017-06-27 21:35] VITALS: BP 103/71
[2017-06-28] VITALS (15 sets, daily range): BP systolic 86–119; BP diastolic 45–69; PULSE 66–86; TEMP 36.6–37.1; O2SAT 93–99
[2017-06-28] MEDS: NITROGLYCERIN OINT 2% 1GM PACKET EXT SCH (03:00)
[2017-06-28 07:35] LABS: BUN/CREATININE RATIO 19.8 (10-20); CALCIUM 9.5 mg/dl (8.5-10.1); CREATININE 0.87 mg/dl (0.60-1.20); POTASSIUM 3.6 mmol/L (3.5-5.1)
[2017-06-28] MEDS: METOPROLOL SUCC 50MG EXT REL TAB PO SCH ×2 (08:26→20:20)
[2017-06-28] MEDS: MULTIVITAMIN TAB PO SCH (08:27)
[2017-06-28] MEDS: ASPIRIN 81 MG CHEW PO SCH (08:27)
[2017-06-28] MEDS: ISOSORBIDE MONONITRATE 30 MG TABCR PO SCH (08:28)
[2017-06-28] MEDS: LOSARTAN POTASSIUM 50 MG TAB PO SCH (08:28)
[2017-06-28] MEDS: HEPARIN SOD 5000 UNIT/0.5 ML CARP SQ SCH ×2 (08:30→20:59)
--- NOTE | 2017-06-28 09:59 | Cardiology Consultation ---
Cardiology Consultation Date of Consultation: Jun 28, 2017. Requesting Physician: Brigitte Abad Reason for Consultation: Congestive heart failure, elevated troponin Pt evaluation today including: conversation w/ patient, physical exam, lab review, review of studies, review of inpatient medication list, conversation w/ attending History of Present Illness This is a 52-year-old woman with a complex medical history including cardiac history who was just admitted a week ago with nausea and vomiting but was identified as having an elevated troponin. She did not have significant ST elevation and it was felt that her troponin was likely due to a myocarditis. An echocardiogram done 06/21/2017 showed mild left ventricular dysfunction with ejection fraction of 40% and some wall motion abnormalities. Her troponin peaked at 6.8 on 06/21/2017. She was discharged on 06/23/2017. Her cardiac history includes nonobstructive coronary artery disease identified by catheterization in 2013, she had a 30% LAD, a 30% mid RCA and required no intervention. She has a history of a chest pain syndrome although has not been having difficulty with that recently and has had frequently elevated troponins. Additionally she has hypercholesterolemia and quite severe hypertension. She was admitted on 06/27/2017 with nausea, vomiting and a severely elevated- blood pressure. Her troponins were noted to be elevated 2, but less than during her recent admission. Her electrocardiogram did not show an acute coronary syndrome. Her chest x-ray was consistent with CHF as well as her chest CT (and was negative for PE), her weight however did not seem to be increased from last week. Her blood pressure has been brought under control. This morning she feels well, she has not had any nausea and vomiting today and she ate breakfast. She has no palpitations, and no chest discomfort. She is currently not short of breath and notes that she did diuresis quite a bit from her IV Lasix. Past Medical/Surgical History (1) Chest pain (2) Elevated troponin (3) Malignant essential hypertension (4) Intractable nausea and vomiting (5) Atherosclerosis Nos Family History Cancer Diabetes mellitus Heart disease Hypertension Lung disease Social History Smoking Status: Former Smoker History of Alcohol Use: No Review of Systems Constitutional: No fever, No weight loss, No weakness Respiratory: + shortness of breath, No cough, No wheezing, No dyspnea on exertion Cardiac: No chest pain, No orthopnea, No PND, No edema, No palpitations Abdomen: + see HPI, + vomiting, No pain, No nausea, No diarrhea, No GI bleeding Female : No problem reported Neurologic: No paralysis, No weakness, No numbness/tingling, No balance problems Heme: No abnormal bleeding/bruising, No clotting problems Endo: No fatigue Skin: No problem reported All Other Systems: Reviewed and Negative Allergies Coded Allergies: Doxycycline (Verified Allergy, Unknown, rash, 06/27/17) Iodinated Diagnostic Agents (Verified Allergy, Unknown, `, 06/27/17) Latex1 -Allergic Contact Dermititis (Verified Allergy, Unknown, RASH, ) Meperidine (Verified Allergy, Unknown, HIVES, VOMITING, 06/27/17) Prochlorperazine (Verified Allergy, Unknown, ., 06/27/17) Munday (Verified Allergy, Unknown, HIVES, 06/27/17) Tomato (Verified Allergy, Unknown, HIVES, 06/27/17) Uncoded Allergies: Hernandez Beans (Allergy, Unknown, HIVES, 11/27/16) Medications Current Inpatient Medications Medications (Trade) Dose Ordered Sig/Yeimy Route Start Time Stop Time Status Last Admin Dose Admin Heparin Sodium (Porcine) (Heparin Sq 5000 Unit/0.5ml) 5,000 unit Q12 SQ 06/27/17 21:00 07/27/17 20:59 06/28/17 08:30 5,000 UNIT Acetaminophen (Tylenol Tab) 650 mg Q4H PRN PO 06/27/17 10:45 07/27/17 10:44 Al Hydrox/Mg Hydrox/Simethicone (Maalox Max Susp) 15 ml Q4H PRN PO 06/27/17 10:45 07/27/17 10:44 Morphine Sulfate (MoRPHine SULFATE INJ) 2 mg Q30M PRN IV 06/27/17 10:45 07/11/17 10:44 Polyethylene (Miralax Powder Packet) 17 gm DAILY PRN PO 06/27/17 10:45 07/27/17 10:44 Aspirin (Aspirin Chew) 81 mg DAILY PO 06/28/17 09:00 07/28/17 08:59 06/28/17 08:27 81 MG Atorvastatin Calcium (Lipitor Tab) 40 mg HS PO 06/27/17 21:00 07/27/17 20:59 06/27/17 21:34 40 MG Clonidine HCl (Catapres Tab) 0.1 mg Q6H PRN PO 06/27/17 10:45 07/27/17 10:44 Isosorbide Mononitrate (Imdur Ext Rel Tab) 30 mg QAM PO 06/28/17 09:00 07/28/17 08:59 06/28/17 08:28 30 MG Losartan Potassium (coZAAR TAB) 50 mg DAILY PO 06/28/17 09:00 07/28/17 08:59 06/28/17 08:28 50 MG Metoprolol Succinate (Toprol Xl Tab) 100 mg BID PO 06/27/17 21:00 07/27/17 20:59 Multivitamins (Multivitamin Tab) 1 tab DAILY PO 06/28/17 09:00 07/28/17 08:59 06/28/17 08:27 1 TAB Hydralazine HCl (HydrALAZINE INJ) 10 mg Q4H PRN IV. 06/27/17 10:45 07/27/17 10:44 Lorazepam (Ativan Tab) 0.5 mg Q4H PRN PO 06/27/17 10:45 07/27/17 10:44 06/27/17 12:49 0.5 MG Ondansetron HCl (Zofran Inj) 4 mg Q4H PRN IV 06/27/17 10:45 07/27/17 10:44 06/27/17 12:49 4 MG Metoprolol Tartrate (Lopressor Iv) 5 mg Q4 PRN IV 06/27/17 13:30 07/27/17 13:29 Sertraline HCl (Zoloft Tab) 100 mg QPM PO 06/27/17 21:00 07/27/17 20:59 06/27/17 21:34 100 MG Physical Exam Vital Signs Past 12 Hours Date Time Temp Pulse Resp B/P (MAP) Pulse Ox O2 Delivery O2 Flow Rate FiO2 06/28/17 08:21 37.1 76 16 90/63 (72) 95 Room Air 06/28/17 08:00 Room Air 06/28/17 04:00 Nasal Cannula 3.0 06/28/17 03:13 36.9 66 14 103/69 (80) 96 Nasal Cannula 3.0 06/28/17 00:15 37.1 75 16 99/65 (76) 99 Nasal Cannula 3.0 06/28/17 00:00 Nasal Cannula 3.0 06/27/17 21:35 103/71 (82) Constitutional: General Apperance: heathly-appearing Level of Distress: NAD Psychiatric: Mental Status: active & alert Head: normocephalic Eyes: EOM: EOMI ENMT: normal ENT inspection, hearing grossly normal Neck: supple, no masses Lungs: Respiratory effort: no dyspnea, good air movement Auscultation: no wheezing, rales/crackles on the left, rales/crackles on the right Cardiovascular: Heart Auscultation: RRR, no murmurs, no rubs, no gallops Peripheral Pulses: Bruits: none appreciated Abdomen: Bowel Sounds: normal Inspection & Palpation: soft, no tenderness, guarding & rebound, no masses Musculoskeletal: normal strength (5/5 throughout) Extremities: no edema Neurologic: Cranial Nerves: grossly intact Sensation: grossly intact Data Laboratory Results: Last 24 Hours Test 06/27/17 12:28 06/27/17 14:54 06/27/17 16:15 06/27/17 20:39 Carboxyhemoglobin 1.6 % THgb Troponin I 1.570 ng/ml 1.700 ng/ml Urine Color YELLOW Urine Appearance CLEAR Urine pH 8.0 Urine Specific [place] 1.012 Urine Protein 1+ Urine Glucose (UA) NEG Urine Ketones NEG Urine Occult Blood TRACE Urine Nitrite NEG Urine Bilirubin NEG Urine Urobilinogen NEG Urine Leukocyte Esterase NEG Urine WBC (Auto) 1-5 /hpf Urine RBC (Auto) 5-10 /hpf Urine Hyaline Casts (Auto) 0 /lpf Urine Epithelial Cells (Auto) 20-30 /lpf Urine Bacteria (Auto) NEG Urine Random Creatinine 29.4 mg/dl Urine Random Total Protein 56.2 mg/dl Urine Protein/Creatinine Ratio 1.9 Test 06/28/17 06:37 06/28/17 06:53 Sodium Level 133 mmol/L Potassium Level 3.6 mmol/L Chloride Level 97 mmol/L Carbon Dioxide Level 27 mmol/L Anion Gap 9.0 mmol/L Blood Urea Nitrogen 17 mg/dl Creatinine 0.87 mg/dl Est Creatinine Clear Calc Drug Dose 72.3 ml/min Estimated GFR () 89.4 Estimated GFR (Non- 77.1 BUN/Creatinine Ratio 19.8 Random Glucose 113 mg/dl Calcium Level 9.5 mg/dl Troponin I 1.270 ng/ml Imaging: Chest x-ray and CT scanning suggests pulmonary edema EKG: Her electrocardiogram so far this admission did not show anything acute, she has left axis deviation and nonspecific ST-T abnormalities. She has remained in sinus rhythm. Telemetry reviewed: Sinus rhythm with a controlled heart rate. Echocardiogram: This was done but is not yet available to review Assessment & Plan #1. Elevated troponin: She has somewhat fluctuating troponins, her second one was a little bit higher than the first but then they have trended down. I think this is all consistent with demand ischemia and I do not see any evidence that she has had an acute ischemic event. She did not have symptoms to support it either. At this point I would not pursue an ischemic evaluation. #2. Hypertension: She has severe hypertension which probably contributes to her demand ischemia. Currently her blood pressure is well-controlled. #3. Coronary artery disease: She has known nonobstructive coronary artery disease, she needs to be treated with first factor management but I would not pursue invasive evaluation unless circumstances change. #4. ECG findings: Her electrocardiogram shows a left axis deviation and a possible inferior infarction, although I don't think there is anything acute. On telemetry her T waves are abnormal this morning, this could just be the telemetry lead but I'm going to repeat the electrocardiogram. #5. Congestive heart failure: She has x-ray evidence and physical findings consistent with CHF, although her weight has not increased. Hopefully she has not had deterioration of her left ventricular function. If she has it is probably due to progressive myocarditis not an ischemic event. I will check the echocardiogram when available. Thank you for allowing me to participate in her care.
--- NOTE | 2017-06-28 10:41 | Nephrology Progress Note ---
Nephrology Progress Note Date of Service Jun 28, 2017. Chief Complaint Management of hypertensive urgency. Alo Agee was seen and examined in her room this morning. Overall she feels well. Nausea and vomiting totally resolved. Denies any headache or visual changes. Blood pressure improve significantly in fact blood pressure running relatively low, asymptomatic. Renal function and electrolyte acceptable. Review of Systems A complete review of systems was performed. Pertinent positives are noted above. All other systems are negative. Vital Signs Last 8 Hrs Date Time Temp Pulse Resp B/P (MAP) Pulse Ox O2 Delivery O2 Flow Rate FiO2 06/28/17 08:21 37.1 76 16 90/63 (72) 95 Room Air 06/28/17 08:00 Room Air 06/28/17 04:00 Nasal Cannula 3.0 06/28/17 03:13 36.9 66 14 103/69 (80) 96 Nasal Cannula 3.0 Last Recorded Weight Weight (Kilograms): 57.400 Physical Exam GENERAL: Middle-aged female , AAA x 3, pleasant, healthy-appearing, not in any distress. NECK: Supple, no JVD. RESPIRATORY: Normal breathing efforts, no accessory muscle use, clear to auscultation bilaterally, no wheezes or rales. CARDIOVASCULAR: S1, S2 normal, rate rhythm regular. EXTREMITY: No lower extremity edema NEURO: speech fluent. PSYCHIATRY: Normal mood and judgment Family History Cancer Diabetes mellitus Heart disease Hypertension Lung disease Social History Smoking Status: Current every day smoker Drug Use: marijuana Marital Status: Housing Status: lives with family Occupation: employed Laboratory Results Past 24 Hours 06/28/17 06:37 Test 06/27/17 12:28 06/27/17 14:54 06/27/17 16:15 06/27/17 20:39 Carboxyhemoglobin 1.6 % [facility] Troponin I 1.570 ng/ml (0-0.045) 1.700 ng/ml (0-0.045) Urine Color YELLOW Urine Appearance CLEAR (CLEAR) Urine pH 8.0 (4.5-7.5) Urine Specific [place] 1.012 (1.000-1.030) Urine Protein 1+ (NEG) Urine Glucose (UA) NEG (NEG) Urine Ketones NEG (NEG) Urine Occult Blood TRACE (NEG) Urine Nitrite NEG (NEG) Urine Bilirubin NEG (NEG) Urine Urobilinogen NEG (NEG) Urine Leukocyte Esterase NEG (NEG) Urine WBC (Auto) 1-5 /hpf (0-5) Urine RBC (Auto) 5-10 /hpf (0-4) Urine Hyaline Casts (Auto) 0 /lpf (0-5) Urine Epithelial Cells (Auto) 20-30 /lpf (0-5) Urine Bacteria (Auto) NEG (NEG) Urine Random Creatinine 29.4 mg/dl Urine Random Total Protein 56.2 mg/dl (0-11.9) Urine Protein/Creatinine Ratio 1.9 (0-0.2) Test 06/28/17 06:37 06/28/17 06:53 Anion Gap 9.0 mmol/L (3-11) Est Creatinine Clear Calc Drug Dose 72.3 ml/min Estimated GFR () 89.4 Estimated GFR (Non- 77.1 BUN/Creatinine Ratio 19.8 (10-20) Calcium Level 9.5 mg/dl (8.5-10.1) Troponin I 1.270 ng/ml (0-0.045) Allergies Coded Allergies: Doxycycline (Verified Allergy, Unknown, rash, 06/27/17) Iodinated Diagnostic Agents (Verified Allergy, Unknown, `, 06/27/17) Latex1 -Allergic Contact Dermititis (Verified Allergy, Unknown, RASH, ) Meperidine (Verified Allergy, Unknown, HIVES, VOMITING, 06/27/17) Prochlorperazine (Verified Allergy, Unknown, ., 06/27/17) Killen (Verified Allergy, Unknown, HIVES, 06/27/17) Tomato (Verified Allergy, Unknown, HIVES, 06/27/17) Uncoded Allergies: Hernandez Beans (Allergy, Unknown, HIVES, 11/27/16) Medications Current Inpatient Medications Medications (Trade) Dose Ordered Sig/Yeimy Route Start Time Stop Time Status Last Admin Dose Admin Heparin Sodium (Porcine) (Heparin Sq 5000 Unit/0.5ml) 5,000 unit Q12 SQ 06/27/17 21:00 07/27/17 20:59 06/28/17 08:30 5,000 UNIT Acetaminophen (Tylenol Tab) 650 mg Q4H PRN PO 06/27/17 10:45 07/27/17 10:44 Al Hydrox/Mg Hydrox/Simethicone (Maalox Max Susp) 15 ml Q4H PRN PO 06/27/17 10:45 07/27/17 10:44 Morphine Sulfate (MoRPHine SULFATE INJ) 2 mg Q30M PRN IV 06/27/17 10:45 07/11/17 10:44 Polyethylene (Miralax Powder Packet) 17 gm DAILY PRN PO 06/27/17 10:45 07/27/17 10:44 Aspirin (Aspirin Chew) 81 mg DAILY PO 06/28/17 09:00 07/28/17 08:59 06/28/17 08:27 81 MG Atorvastatin Calcium (Lipitor Tab) 40 mg HS PO 06/27/17 21:00 07/27/17 20:59 06/27/17 21:34 40 MG Clonidine HCl (Catapres Tab) 0.1 mg Q6H PRN PO 06/27/17 10:45 07/27/17 10:44 Isosorbide Mononitrate (Imdur Ext Rel Tab) 30 mg QAM PO 06/28/17 09:00 07/28/17 08:59 06/28/17 08:28 30 MG Losartan Potassium (coZAAR TAB) 50 mg DAILY PO 06/28/17 09:00 07/28/17 08:59 06/28/17 08:28 50 MG Metoprolol Succinate (Toprol Xl Tab) 100 mg BID PO 06/27/17 21:00 07/27/17 20:59 Multivitamins (Multivitamin Tab) 1 tab DAILY PO 06/28/17 09:00 07/28/17 08:59 06/28/17 08:27 1 TAB Hydralazine HCl (HydrALAZINE INJ) 10 mg Q4H PRN IV. 06/27/17 10:45 07/27/17 10:44 Lorazepam (Ativan Tab) 0.5 mg Q4H PRN PO 06/27/17 10:45 07/27/17 10:44 06/27/17 12:49 0.5 MG Ondansetron HCl (Zofran Inj) 4 mg Q4H PRN IV 06/27/17 10:45 07/27/17 10:44 06/27/17 12:49 4 MG Metoprolol Tartrate (Lopressor Iv) 5 mg Q4 PRN IV 06/27/17 13:30 07/27/17 13:29 Sertraline HCl (Zoloft Tab) 100 mg QPM PO 06/27/17 21:00 07/27/17 20:59 06/27/17 21:34 100 MG Impression (1) HYPERTENSIVE URGENCY (2) Chronic hypertension (3) Nausea & vomiting 52 old female with hypertensive urgency nausea vomiting with history of recurrent admission for hypertensive urgency all prior workup negative. Has well preserved GFR but Urinalysis with proteinuria and microscopic hematuria. no significant proteinuria. She reports taking medications regularly denies NSAID use. On admission systolic blood pressure was 209 which slowly started to improve. Currently she continues to have nausea and vomiting denies any headache or visual changes. No hematuria or flank pain. Had extensive workup as an outpatient for secondary causes for hypertension, all w/u unremarkable. Recommendations --continue on losartan 50 and metoprolol --avoid IV fluid, avoid NSAIDs --repeat UA and PCR Will follow
[2017-06-28] MEDS ORDERED: METHYLPREDNISOLONE IV 125 MG in SYRINGE 0 ML IV STA (10:59)
--- NOTE | 2017-06-28 11:31 | ECHOCARDIOGRAM REPORT ---
*NOTICE TO RECEIVING DEMOCRAT AGENCY This information is strictly Confidential and protected under [place] law. [place] law prohibits you from making any further disclosure of this information unless further disclosure is expressly permitted by the written consent of the person to whom it pertains or is authorized by law. A general authorization for the release of medical or other information is not sufficient for this purpose. Hospital accepts no responsibility if the information is made available to any other person, INCLUDING THE PATIENT. Interpretation Summary * Name: ONEL MONTOYA Study Date: 06/27/2017 12:59 PM BP: 160/103 mmHg * Patient Location: .2E\S\E211\S\1 HR: 85 * : 1965 (M/d/yyyy) Gender: Female Height: 67 in * Age: 52 yrs Ethnicity: [place] Weight: 132 lb * Ordering Physician: Brigitte Abad * Referring Physician: Self, Referred * Performed By: Enma Miner, [facility] * * Reason For Study: HEART FAILURE / MYOCARDITIS RELATED CHANGES * BSA: 1.7 m2 * -- Conclusions -- * 1. Normal LV size, mild concentric LVH. * 2. Moderate LV dysfunction. LVEF 40%. Normal function in the basal segments. Hypokinetic in the mid segments and akinetic at the apex. * 3. Normal RV size and function. * 4. Grade II diastolic dysfunction. * 5. Borderline pulmonary hypertension. Est PASP 35-40 mmHg. Normal est CVP. * 6. Compared with prior study on 06/21/2017: LV function not significantly changed. Procedure Details * A complete two-dimensional transthoracic echocardiogram was performed (2D, M-mode, Doppler and color flow Doppler). Left Ventricle * The left ventricle is grossly normal size. * There is mild concentric left ventricular hypertrophy. * Ejection Fraction = 40-45%. * Normal function in the basal segments. Hypokinetic in the mid segments and akinetic at the apex. Right Ventricle * The right ventricle is grossly normal size. * The right ventricular systolic function is normal as assessed by tricuspid annular plane systolic excursion (TAPSE) (normal >1.5 cm). Atria * The left atrium is mildly dilated. * Right atrial size is normal. * No ASD detected; PFO is not assessed. Mitral Valve * The mitral valve is grossly normal. * There is no mitral valve stenosis. * There is trace mitral regurgitation. Tricuspid Valve * The tricuspid valve is not well visualized, but is grossly normal. * There is no tricuspid stenosis. * There is trace tricuspid regurgitation. Aortic Valve * The aortic valve opens well. * No hemodynamically significant valvular aortic stenosis. * There is no significant aortic regurgitation. Pulmonic Valve * The pulmonary valve is inadequately visualized, but the Doppler data is adequate for interpretation. * Pulmonic stenosis is absent. * Trace pulmonic valvular regurgitation. Great Vessels * The aortic root and proximal ascending aorta are normal sized. Pericardium/Pleural * There is no pericardial effusion. Great Vessels * Normal inferior vena cava size and collapsability with sniff indicates a normal right atrial pressure of 3 mmHg Left Ventricular Diastolic Function * Diastolic dysfunction, Grade II (pseudonormalization pattern). MMode 2D Measurements and Calculations IVSd 1.4 cm IVSs 1.4 cm LVIDd 3.9 cm LVIDs 3.2 cm LVPWd 1.3 cm LVPWs 1.3 cm IVS/LVPW 1.1 FS 19.0 % EDV(Teich) 67.7 ml ESV(Teich) 40.8 ml EF(Teich) 39.7 % EDV(cubed) 61.3 ml ESV(cubed) 32.6 ml EF(cubed) 46.9 % % IVS thick -0.01 % % LVPW thick 0.10 % LV mass(C)d 190.3 grams LV mass(C)dI 112.3 grams/m\S\2 LV mass(C)s 141.4 grams LV mass(C)sI 83.4 grams/m\S\2 SV(Teich) 26.9 ml SI(Teich) 15.9 ml/m\S\2 SV(cubed) 28.7 ml SI(cubed) 17.0 ml/m\S\2 Ao root diam 2.9 cm Ao root area 6.4 cm\S\2 LA dimension 3.6 cm LA/Ao 1.3 LVOT diam 1.9 cm LVOT area 2.8 cm\S\2 LVAd ap4 29.4 cm\S\2 LVLd ap4 7.8 cm EDV(MOD-sp4) 97.0 ml EDV(sp4-el) 94.4 ml LVAs ap4 20.5 cm\S\2 LVLs ap4 6.8 cm ESV(MOD-sp4) 49.8 ml ESV(sp4-el) 52.4 ml EF(MOD-sp4) 48.6 % EF(sp4-el) 44.5 % LVAd ap2 34.3 cm\S\2 LVLd ap2 8.6 cm EDV(MOD-sp2) 111.5 ml EDV(sp2-el) 116.0 ml LVAs ap2 24.0 cm\S\2 LVLs ap2 7.2 cm ESV(MOD-sp2) 63.4 ml ESV(sp2-el) 68.1 ml EF(MOD-sp2) 43.1 % EF(sp2-el) 41.3 % LVLd %diff 9.9 % EDV(MOD-bp) 110.8 ml LVLs %diff 6.0 % ESV(MOD-bp) 57.3 ml EF(MOD-bp) 48.3 % SV(MOD-sp4) 47.2 ml SI(MOD-sp4) 27.8 ml/m\S\2 SV(MOD-sp2) 48.1 ml SI(MOD-sp2) 28.4 ml/m\S\2 SV(MOD-bp) 53.5 ml SI(MOD-bp) 31.6 ml/m\S\2 SV(sp4-el) 42.0 ml SI(sp4-el) 24.8 ml/m\S\2 SV(sp2-el) 47.9 ml SI(sp2-el) 28.3 ml/m\S\2 Doppler Measurements and Calculations MV E max ian 85.2 cm/sec MV A max ian 68.5 cm/sec MV E/A 1.2 MV P1/2t max ian 103.5 cm/sec MV P1/2t 67.8 msec MVA(P1/2t) 3.2 cm\S\2 MV dec slope 447.3 cm/sec\S\2 MV dec time 0.19 sec Ao V2 max 135.4 cm/sec Ao max PG 7.3 mmHg Ao max PG (full) 4.3 mmHg LORENA(V,A) 1.8 cm\S\2 LORENA(V,D) 1.8 cm\S\2 LV V1 max PG 3.1 mmHg LV V1 max 87.4 cm/sec PA V2 max 110.4 cm/sec PA max PG 4.9 mmHg TR max ian 282.6 cm/sec
[2017-06-28] MEDS ORDERED: MIDAZOLAM HCL 1 MG/ML 2ML VIAL ONE (11:38)
[2017-06-28] MEDS ORDERED: HEPARIN SOD (PORCINE) 1000 UNIT/ML 10 ML VIAL ONE (11:38)
[2017-06-28] MEDS ORDERED: FENTANYL CITRATE INJ 50 MCG/1 ML 2 ML VIAL ONE (11:38)
[2017-06-28] MEDS ORDERED: NiCARDipine HCL INJ 2.5 MG/ML 10 ML AMP ONE (11:38)
[2017-06-28] MEDS ORDERED: NITROGLYCERIN/D5W 100MCG/ML 20ML SYR ONE (11:39)
[2017-06-28 11:41] LABS: URINE APPEARANCE CLEAR (CLEAR); URINE BILIRUBIN NEG (NEG); URINE COLOR YELLOW; URINE NITRITE NEG (NEG); URINE PH 7.5 (4.5-7.5); URINE SPECIFIC GRAVITY 1.018 (1.000-1.030); UROBILINOGEN NEG (NEG)
[2017-06-28 11:47] LABS: MANUAL MICROSCOPIC REQUIRED? NO; REVIEW REQ? NO
[2017-06-28 11:58] LABS: CREATININE, URINE 71.6 mg/dl; URINE PROTIEN/CREAT RATIO 0.1 (0-0.2); URINE TOTAL PROTEIN 9.6 mg/dl (0-11.9)
--- NOTE | 2017-06-28 12:47 | Procedure Note ---
Pre-Mod Sedation Assessment General Date of Moderate Sedation: Jun 28, 2017. Vital Signs: Vital Signs Past 12 Hours Date Time Temp Pulse Resp B/P (MAP) Pulse Ox O2 Delivery O2 Flow Rate FiO2 06/28/17 12:45 67 18 98/58 (71) 100 Room Air 06/28/17 12:30 66 18 103/59 (74) 100 Room Air 06/28/17 11:20 69 19 99/63 (75) 96 Room Air 06/28/17 08:21 37.1 76 16 90/63 (72) 95 Room Air 06/28/17 08:00 Room Air 06/28/17 04:00 Nasal Cannula 3.0 06/28/17 03:13 36.9 66 14 103/69 (80) 96 Nasal Cannula 3.0 Review Cardiovascular: regular rate, rhythm, no edema Abdomen: normal bowel sounds, non tender Lungs: chest non-tender, lungs clear Airway Class: III Pre-Sedation Airway Assessment Oral Cavity: Dentures Able to Visualize Vocal Cords: No Short Thick Neck: No Hx of Sleep Apnea: No Smoking Status: Former Smoker Mallampati Classification: Class III ASA Classification: Class III Procedure Planning Contraindications-for Mod Sed: None Yes Notes The planned sedation has been discussed with the patient and consent obtained. I have identified the patient, determined the appropriateness of sedation and have assessed the patient immediately prior to the procedure. All medicine(s) and interventions are by my order.
--- NOTE | 2017-06-28 12:47 | Procedure Note ---
Post-Mod Sedation Assessment General Date of Moderate Sedation Jun 28, 2017. Vital Signs: Vital Signs Past 12 Hours Date Time Temp Pulse Resp B/P (MAP) Pulse Ox O2 Delivery O2 Flow Rate FiO2 06/28/17 12:45 67 18 98/58 (71) 100 Room Air 06/28/17 12:30 66 18 103/59 (74) 100 Room Air 06/28/17 11:20 69 19 99/63 (75) 96 Room Air 06/28/17 08:21 37.1 76 16 90/63 (72) 95 Room Air 06/28/17 08:00 Room Air 06/28/17 04:00 Nasal Cannula 3.0 06/28/17 03:13 36.9 66 14 103/69 (80) 96 Nasal Cannula 3.0 Review - Discharge Criteria Vital Signs Stable: Yes Alert/Oriented/Conversant: Yes Returned to Baseline Mental St: Yes Nausea Absent/Minimal: Yes Pain/Discomfort/Absent/Minimal: Yes Normal/Baseline Respirations: Yes Active Bleeding?: No Pt Received D/C Instructions: No Prescriptions Given: None Specific Proced. D/C Criteria Distal Pulses Present (Cardiac: Yes Groin site assessed-Card Cath: N/A Voided Prior To Discharge: N/A Discharged Patients Adult Escort/Transportation: Yes
--- NOTE | 2017-06-28 12:57 | Cardiac Catheterization ---
Procedure Note Procedure Date Jun 28, 2017. Pre-Procedure Diagnosis Non STEMI AUC Score 8 Post-Procedure Diagnosis Mild CAD Procedure(s) Performed Coronary Angiography, Left Heart Cath, Ultrasound Guided Vascular Access Program Host Sohail Lieutenant General(s) Zhou Estimated Blood Loss 15 Medication(s) Fentanyl, Heparin, Nicardipine, Versed, Lidocaine 1% Summary of Findings Indication: NSTEMI; new LV dysfunction/regional wall motion abnormalities. Access: 6Fr slender right radial artery Catheters: [place] Findings: LM - Angiographically normal LAD - Large caliber vessel that tapers as reaches apex. 20% focal proximal and mid segment narrowings. High small 1st diagonal with 60% ostial stenosis. Circumflex - Moderate caliber. Luminal irregularities. RCA - Dominant, large caliber vessel, diffuse 40% mid segment disease, 20-30% distal segment disease. Luminal irregularities in large R-PDA and PLB. LVEDP - 9 Arterial Closure: TR Band Summary: 1. Mild to moderate non-obstructive coronary artery disease - 40% mid RCA disease 2. Normal intracardiac filling pressures. 3. LV wall motion abnormalities consistent with Takotsubo's cardiomyopathy on TTE Recommendations: Continue ARB and beta-blaine Continued ASCVD risk factor modification including statin, ASA Hemodynamics Rest Ao: 88/54/72 Final Ao: 80/59/44 LV: 96/9 Recommendations Medical therapy and/or Counseling Specimens None Radiation Exposure (mGy) 460 Contrast (mls) 40 Fluids (cc crystalloids) 81 Drains None Anesthesia Moderate Procedural Complication(s) None Disposition PCU ACC Data Cardiac Status Clinical evaluation leading to the procedure CAD Presntation: Non STEMI Anginal Classification: CCS IV Heart Failure: No, NYHA Class: CCS I Cardiogenic Shock w/in 24Hrs: No Cardiac Arrest w/in 24Hrs: No Imaging studies past 6 months: Yes Stress studies past 6 months: No Closure Device Percutaneous Entry Location: Radial Closure Device: Radial Band Recommendations: Medical therapy and/or Counseling Intraprocedure Events Significant Dissection: No Perforation: No
[2017-06-28] MEDS ORDERED: SODIUM CHLORIDE 0.9% 1000ML 1,000 ML IV SCH (13:07)
[2017-06-28] MEDS ORDERED: ACETAMINOPHEN 325 MG TAB PO PRN (13:15)
--- NOTE | 2017-06-28 15:17 | Hospitalist Progress Note ---
Hospitalist Progress Note Date of Service Jun 28, 2017. (Brigitte Abad CRNP) Subjective Pt evaluation today including: conversation w/ patient, physical exam, chart review, lab review, review of inpatient medication list Voiding: no voiding problems Ms. Velasquez feels she is almost back to her baseline. She is off supplemental oxygen, ate breakfast without nausea or vomiting, she continues to be free of chest pain or sob. Cardiology felt that was having changes on her telemetry and then performed and EKG finding it to have ST changes in the anterolateral leads. She was taken to the label remover this afternoon as a heart alert. ROS Constitutional: no chills, aches, sweats or fever Respiratory: no sob,cough, sputum, or wheezing Cardiac: no chest pain, palpitations, edema, orthopnea or lightheadedness GI: no abdominal pain, nausea, vomiting, diarrhea or constipation : no dysuria or hesitancy Extremities: no joint pain or weakness Skin: no rash (Brigitte Abad CRNP) Medications Medications (Trade) Dose Ordered Sig/[place]imy Route Start Time Stop Time Status Last Admin Dose Admin Nitroglycerin (Nitroglycerin 2% Oint) 1 inch Q6H EXT 06/27/17 15:00 06/27/17 20:59 DC 06/27/17 16:05 1 INCH Heparin Sodium (Porcine) (Heparin Sq 5000 Unit/0.5ml) 5,000 unit Q12 SQ 06/27/17 21:00 07/27/17 20:59 06/28/17 08:30 5,000 UNIT Aspirin (Aspirin Chew) 81 mg DAILY PO 06/28/17 09:00 07/28/17 08:59 06/28/17 08:27 81 MG Atorvastatin Calcium (Lipitor Tab) 40 mg HS PO 06/27/17 21:00 07/27/17 20:59 06/27/17 21:34 40 MG Isosorbide Mononitrate (Imdur Ext Rel Tab) 30 mg QAM PO 06/28/17 09:00 07/28/17 08:59 06/28/17 08:28 30 MG Losartan Potassium (coZAAR TAB) 50 mg DAILY PO 06/28/17 09:00 07/28/17 08:59 06/28/17 08:28 50 MG Multivitamins (Multivitamin Tab) 1 tab DAILY PO 06/28/17 09:00 07/28/17 08:59 06/28/17 08:27 1 TAB Furosemide 40 mg/ Syringe 4 ml @ 4 mls/min NOW ONCE IV 06/27/17 15:15 06/27/17 15:23 DC 06/27/17 16:11 4 MLS/MIN Sertraline HCl (Zoloft Tab) 100 mg QPM PO 06/27/17 21:00 07/27/17 20:59 06/27/17 21:34 100 MG Methylprednisolone Sodium Succinate 125 mg/Syringe 2 ml @ 1.5 mls/min ONE STAT IV 06/28/17 10:59 06/28/17 11:04 DC 06/28/17 10:59 1.5 MLS/MIN Diphenhydramine HCl (Benadryl Cap) 50 mg NOW ONCE PO 06/28/17 11:00 06/28/17 11:04 DC 06/28/17 11:13 50 MG Midazolam HCl (Versed Inj) 2 mg STK-MED ONCE .ROUTE 06/28/17 11:38 06/28/17 11:39 DC 06/28/17 11:38 1 MG Fentanyl Citrate (Fentanyl Inj) 100 mcg STK-MED ONCE .ROUTE 06/28/17 11:38 06/28/17 11:39 DC 06/28/17 11:38 50 MCG Heparin Sodium (Porcine) (Heparin Iv Bolus) 10,000 unit STK-MED ONCE .ROUTE 06/28/17 11:38 06/28/17 11:39 DC 06/28/17 11:38 5,000 UNIT (Brigitte Abad CRNP) Objective Vital Signs Date Time Temp Pulse Resp B/P (MAP) Pulse Ox O2 Delivery O2 Flow Rate FiO2 06/28/17 14:37 73 16 93/ (31) 96 06/28/17 14:05 78 19 86/45 (59) 95 06/28/17 13:35 86 19 98/59 (72) 95 Room Air 06/28/17 13:20 78 18 102/68 (79) 94 Room Air 06/28/17 13:05 74 19 104/61 (75) 94 Room Air 06/28/17 13:05 74 19 104/61 (75) 95 Room Air 11/25/17 13:05 94 Room Air 06/28/17 12:50 69 17 90/58 (69) 94 Room Air 06/28/17 12:50 69 17 90/55 (67) 94 Room Air 06/28/17 12:45 67 18 98/58 (71) 100 Room Air 06/28/17 12:30 66 18 103/59 (74) 100 Room Air 06/28/17 11:20 69 19 99/63 (75) 96 Room Air 06/28/17 08:21 37.1 76 16 90/63 (72) 95 Room Air 06/28/17 08:00 Room Air 06/28/17 04:00 Nasal Cannula 3.0 06/28/17 03:13 36.9 66 14 103/69 (80) 96 Nasal Cannula 3.0 06/28/17 00:15 37.1 75 16 99/65 (76) 99 Nasal Cannula 3.0 06/28/17 00:00 Nasal Cannula 3.0 06/27/17 21:35 103/71 (82) 06/27/17 20:28 Nasal Cannula 4.0 06/27/17 19:27 37.1 87 20 138/82 (100) 100 Nasal Cannula 4.0 Humidified Oxygen 06/27/17 16:00 Nasal Cannula 4.0 06/27/17 15:38 37.0 90 19 134/87 (103) 99 Nasal Cannula 4.0 Humidified Oxygen (Brigitte Abad, DARREN) Physical Exam Notes: General: no distress Eyes: normal inspection, PERLL Respiratory: chest non tender, clear to auscultation, normal breath sounds, no respiratory distress, no accessory muscle use Cardiac: regular rate and rhythm, no rub or gallop, no murmur, no edema, no jvd GI/: active bowel sounds, no abd pain or tenderness, soft, non distended Extremities: normal range of motion, normal strength, non tender Neuro/Psych: alert and oriented x 3, normal mood and affect Skin: normal color, dry (Brigitte Abad, DARREN) Laboratory Results Last 24 Hours Test 06/27/17 16:15 06/27/17 20:39 06/28/17 00:00 06/28/17 06:37 Urine Color YELLOW YELLOW Urine Appearance CLEAR CLEAR Urine pH 8.0 7.5 Urine Specific [place] 1.012 1.018 Urine Protein 1+ NEG Urine Glucose (UA) NEG NEG Urine Ketones NEG NEG Urine Occult Blood TRACE NEG Urine Nitrite NEG NEG Urine Bilirubin NEG NEG Urine Urobilinogen NEG NEG Urine Leukocyte Esterase NEG NEG Urine WBC (Auto) 1-5 /hpf Urine RBC (Auto) 5-10 /hpf Urine Hyaline Casts (Auto) 0 /lpf Urine Epithelial Cells (Auto) 20-30 /lpf Urine Bacteria (Auto) NEG Urine Random Creatinine 29.4 mg/dl 71.6 mg/dl Urine Random Total Protein 56.2 mg/dl 9.6 mg/dl Urine Protein/Creatinine Ratio 1.9 0.1 Troponin I 1.700 ng/ml Sodium Level 133 mmol/L Potassium Level 3.6 mmol/L Chloride Level 97 mmol/L Carbon Dioxide Level 27 mmol/L Anion Gap 9.0 mmol/L Blood Urea Nitrogen 17 mg/dl Creatinine 0.87 mg/dl Est Creatinine Clear Calc Drug Dose 72.3 ml/min Estimated GFR () 89.4 Estimated GFR (Non- 77.1 BUN/Creatinine Ratio 19.8 Random Glucose 113 mg/dl Calcium Level 9.5 mg/dl Test 06/28/17 06:53 Troponin I 1.270 ng/ml (Brigitte Abad, DARREN) Assessment and Plan Ms. Velasquez is a 52 year old woman here for vomiting and hypertensive urgency. She was recently here and discharged Jun 20 for viral myocarditis vs. stress cardiomyopathy where she was found to have new wall motion abnormalities and reduced EF on echocardiogram. She did not undergo cardiac catheterization at that time. Uncontrolled hypertension/hypertensive urgency/vomiting - Cardiology consulted - Cardiac cath showed mild CAD and her echo was similar to her last indicating Takotsubo - Blood pressures are now running a bit on the low side - continue home meds as long as SBP is over 100 - per outpatient notes, there was suspicion that her blood pressure elevations were in part anxiety related and she was started on an SSRI which was achieving good response. She did not like the side effects of benzodiazepines. - She did not have any evidence of renal artery stenosis on renal artery duplex or MRA and did not have elevated renin levels, or metanephrines in plasma or urine in her outpatient workup. - nephrology consulted for help managing blood pressures - repeat UA and urine protein and continue home blood pressure meds. Acute hypoxemic respiratory failure/ Acute on chronic systolic heart failure with EF 40% - On admission BNP elevated at 4052 and unchanged pulm htn on xray - continued IV lasix last evening and this morning, can transition to po lasix for going home - No longer requiring supplemental O2 - Echo - stable from last admission showing effects of Takotsubo Elevated troponin - trended up over the night but is now coming back down - peaked at 1.7 - per ED discussion with cardiology, this may be continued drop from elevated troponin at last admission - patient is not having chest pain Vomiting/ ? vomiting syndrome secondary to marijuana usage - Zofran prn - lipase was wnl, no abd pain - patient's symptoms seem to occur while in her house initially - carboxyhemoglobin wnl - Patient continues to be regular marijuana user and the vomiting appears to start before the blood pressure goes up - counseled patient on abstaining from marijuana to see if it is the source of the vomiting - resolved Full code DVT prophylaxis - heparin subq (Brigitte Abad, DARREN) Reviewed: Pt Seen/Exam by Me (Leonie Fairbanks MD) History [employer] Supervision Note: I interviewed and examined the patient. Discussed with DARREN Abad and agree with findings and plan as documented in the note. Any exceptions or clarifications are listed here: Pt presents as a readmission with her usual presentation of acute onset of N/V followed by accelerated HTN. This time though, she denies any chest pain at all. She was discharged 4 days prior after a similar presentation except had additional CP, and was found to have an elevated troponin, new WMAs on ECHO, and new systolic CHF with EF 40%. A cardiac cath was not deemed necessary during that admission by Cardiology. She was started on isosorbide and her metoprolol was changed from tartrate to succinate 100mg bid. Pt reports she did smoke marijuana once she was at home; it helps her anxiety. She was started on Zoloft 1 month ago at 50mg daily and it has helped somewhat. Today pt had acute changes on ECG, no symptoms at all, but due to acute changes , was taken as a heart alert to label remover. Cath showed nonobstructive disease and ECHO consistent with Takotsubo's CM. Bps low today. Pt denies CP/SOB, is weaned off O2 Vitals reviewed NAD RRR no mgr CTAB no wcr Abd +BS soft NT ND Ext no edema, 2+ DP pulses This pt is a 52 yo female with a h/o labile HTN, marijuana abuse, recent possible stress-induced CM, chronic combined systolic and diastolic CHF, mitral regurgitation, anxiety disorder, and cyclical vomiting, with multiple admissions to the hospital for intractable vomiting and hypertensive urgency. SHe is here again with the same, as well as with acute on chronic combined systolic and diastolic CHF and Takotsubo's CM. -cath nonobstructive CAD--> Cardio recommends staying on ARB and beta blaine -will need repeat ECHO down the line and f/u with Cardio as outpt -was diuresed with IV lasix, now weaned off O2--> will probably need a low dose diuretic to go home with -will monitor BPs overnight and if stable, will dc to home tomorrow -again, strongly encouraged Marijuana cessation as this likely plays a role in her cyclical vomiting -she smokes MJ for her anxiety--> was started on Zoloft 1 month ago--> increased Zoloft to 100mg daily -Appreciate Cardiology and Nephrology consultations for BP management--> with microscopic hematuria and proteinuria, wonder if renal GN playing a role in her labile HTN? Will d/w Nephrology Documented By: Leonie Fairbanks (Leonie Fairbanks MD)
[2017-06-28] MEDS: SERTRALINE HCL 100 MG TAB PO SCH (20:57)
[2017-06-28] MEDS: ATORVASTATIN 40 MG TAB PO SCH (20:57)
[2017-06-29 04:21] VITALS: BP 109/72; PULSE 73; TEMP 36.8; O2SAT 95
[2017-06-29 06:07] LABS: HEMATOCRIT 36.5 % (37-47); MEAN CELL VOLUME 94.3 fL (80-100); MEAN PLATELET VOLUME 10.4 fL (7.4-10.4); PLATELET COUNT 322 K/uL (130-400); RED BLOOD COUNT 3.87 M/uL (4.2-5.4); WHITE BLOOD COUNT 14.26 K/uL (4.8-10.8)
[2017-06-29 06:41] LABS: BUN/CREATININE RATIO 21.8 (10-20); CALCIUM 9.5 mg/dl (8.5-10.1); CREATININE 0.81 mg/dl (0.60-1.20); POTASSIUM 3.8 mmol/L (3.5-5.1)
[2017-06-29] MEDS ORDERED: POTASSIUM CHLORIDE 20 MEQ TABCR PO STA (07:26)
[2017-06-29 07:55] VITALS: BP 129/86; PULSE 75; TEMP 36.4; O2SAT 94
[2017-06-29] MEDS: ISOSORBIDE MONONITRATE 30 MG TABCR PO SCH (09:00)
[2017-06-29] MEDS: ASPIRIN 81 MG CHEW PO SCH (09:00)
[2017-06-29] MEDS: MULTIVITAMIN TAB PO SCH (09:01)
[2017-06-29] MEDS: METOPROLOL SUCC 50MG EXT REL TAB PO SCH (09:01)
[2017-06-29] MEDS: LOSARTAN POTASSIUM 50 MG TAB PO SCH (09:01)
[2017-06-29] MEDS: HEPARIN SOD 5000 UNIT/0.5 ML CARP SQ SCH (09:03)
--- NOTE | 2017-06-29 09:32 | Cardiology Follow-Up ---
Subjective Date of Service: Jun 29, 2017. Pt evaluation today including: conversation w/ patient, physical exam, lab review, review of studies, review of inpatient medication list History of Present Illness This is a 52-year-old woman with a complex medical history including cardiac history who was just admitted a week ago with nausea and vomiting but was identified as having an elevated troponin. She did not have significant ST elevation and it was felt that her troponin was likely due to a myocarditis. An echocardiogram done 06/21/2017 showed mild left ventricular dysfunction with ejection fraction of 40% and some wall motion abnormalities. Her troponin peaked at 6.8 on 06/21/2017. She was discharged on 06/23/2017. Her cardiac history includes nonobstructive coronary artery disease identified by catheterization in 2013, she had a 30% LAD, a 30% mid RCA and required no intervention. She has a history of a chest pain syndrome although has not been having difficulty with that recently and has had frequently elevated troponins. Additionally she has hypercholesterolemia and quite severe hypertension. She was admitted on 06/27/2017 with nausea, vomiting and a severely elevated- blood pressure. Her troponins were noted to be elevated 2, but less than during her recent admission. Her electrocardiogram did not show an acute coronary syndrome. Her chest x-ray was consistent with CHF as well as her chest CT (and was negative for PE), her weight however did not seem to be increased from last week. Her blood pressure has been brought under control. She has been feeling much better following admission, on 06/28/2017 her T waves looked markedly different than before and given that and her troponin trend as well as wall motion abnormalities on her echocardiogram we felt obligated to perform coronary angiography. That showed her known nonobstructive coronary artery disease and this is felt to represent Takotsubo disease. This morning she continues to feel well and has no complaints, no shortness of breath and no chest discomfort. Social History Smoking Status: Former Smoker History of Alcohol Use: No Review of Systems Respiratory: No cough, No wheezing, No shortness of breath, No dyspnea on exertion Cardiac: No chest pain, No orthopnea, No PND, No edema, No palpitations Medications Cardiovascular: Item Value Date Time Aspirin 81 mg 06/28/17 0900 (Aspirin Chew) DAILY/PO 06/29/17 0900 Isosorbide 30 mg 06/28/17 09 Mononitrate QAM/PO 06/29/17 09 (Imdur Ext Rel Tab) Losartan Potassium 50 mg 06/28/17 0900 (coZAAR TAB) DAILY/PO 06/29/17 09 Heparin Sodium 5,000 unit 06/27/172099 (Porcine) Q12/SQ 06/29/17 09 (Heparin Sq 5000 Unit/0.5ml) Atorvastatin 40 mg 06/27/172099 Calcium HS/PO 06/28/172056 (Lipitor Tab) Metoprolol 100 mg 06/27/172099 Succinate BID/PO 06/29/17900 (Toprol Xl Tab) Objective Vital Signs Past 12 Hours Date Time Temp Pulse Resp B/P (MAP) Pulse Ox O2 Delivery O2 Flow Rate FiO2 06/29/17 08:06 Room Air 06/29/17 07:55 36.4 75 16 129/86 (100) 94 Room Air 06/29/17 04:21 36.8 73 17 109/72 (84) 95 Room Air 06/29/17 04:00 Room Air 06/28/17 23:59 Room Air 06/28/17 23:44 36.8 74 16 119/60 (79) 93 Room Air Last Recorded Weight-Kilograms: 58.200 Physical Exam Constitutional: General Apperance: heathly-appearing Level of Distress: NAD Lungs: Respiratory effort: no dyspnea, good air movement Auscultation: no wheezing, rales/crackles on the left, rales/crackles on the right Cardiovascular: Heart Auscultation: RRR, no murmurs, no rubs, no gallops Peripheral Pulses: Bruits: none appreciated Extremities: no edema Her catheterization site in the right wrist looks good with no hematoma or ecchymosis. Data Laboratory Results: Last 24 Hours Test 06/29/17 05:42 White Blood Count 14.26 K/uL Red Blood Count 3.87 M/uL Hemoglobin 12.4 g/dL Hematocrit 36.5 % Mean Corpuscular Volume 94.3 fL Mean Corpuscular Hemoglobin 32.0 pg Mean Corpuscular Hemoglobin Concent 34.0 g/dl RDW Standard Deviation 44.6 fL RDW Coefficient of Variation 13.0 % Platelet Count 322 K/uL Mean Platelet Volume 10.4 fL Sodium Level 138 mmol/L Potassium Level 3.8 mmol/L Chloride Level 103 mmol/L Carbon Dioxide Level 25 mmol/L Anion Gap 9.0 mmol/L Blood Urea Nitrogen 18 mg/dl Creatinine 0.81 mg/dl Est Creatinine Clear Calc Drug Dose 75.5 ml/min Estimated GFR () 97.5 Estimated GFR (Non- 84.1 BUN/Creatinine Ratio 21.8 Random Glucose 92 mg/dl Calcium Level 9.5 mg/dl Telemetry reviewed: Sinus rhythm with controlled heart rate Assessment and Plan #1. Elevated troponin: She has somewhat fluctuating troponins, her second one was a little bit higher than the first but then they have trended down. I think this is all consistent with her known Takotsubo cardiomyopathy and there is no evidence that she has ischemia, especially based on her catheterization yesterday. #2. Hypertension: She has severe hypertension which probably contributes to her demand ischemia and possibly her cardiomyopathy. Currently her blood pressure is well-controlled. #3. Coronary artery disease: She has known nonobstructive coronary artery disease, she needs to be treated with first factor management as she is. #4. ECG findings: Her electrocardiogram changed significantly yesterday although her clinical situation did not (her heart failure symptoms improved, her troponin continued to trend down and she felt better). I can't explain the delay in the electrocardiographic changes but it does not represent an ischemic event based on her catheterization. #5. Congestive heart failure: She presented with findings and symptoms suggesting congestive heart failure but her clinical situation did not change a lot, perhaps her left her ejection fraction is a little bit worse than it was last time. I would treat this conservatively with fluid restriction and when necessary diuretics. #6. Cardiomyopathy: She has what appears to be Takotsubo cardiomyopathy, she is on beta blockade and an ARB, her beta blockade is at appropriate doses. Her ARB could be increased. Nitroglycerin is probably not necessary. If we can control her blood pressure with increasing her ARB and possibly adding a calcium blaine due to her Takotsubo cardiomyopathy (but not decreasing her beta blockade) that would probably be optimal. We will need to follow her left ventricular function with medical therapy, hopefully will improve as it usually does and the situation. Thank you for allowing me to participate in her care.
--- NOTE | 2017-06-29 10:18 | Nephrology Progress Note ---
Nephrology Progress Note Date of Service Jun 29, 2017. Chief Complaint Management of hypertensive urgency. Alo Agee was seen and examined in her room this morning. Overall she feels well. Blood pressure stable. Remained asymptomatic, no further episode of nausea or vomiting. Had bowel movement this morning. Blood pressure has been well controlled. Review of Systems A complete review of systems was performed. Pertinent positives are noted above. All other systems are negative. Vital Signs Last 8 Hrs Date Time Temp Pulse Resp B/P (MAP) Pulse Ox O2 Delivery O2 Flow Rate FiO2 06/29/17 08:06 Room Air 06/29/17 07:55 36.4 75 16 129/86 (100) 94 Room Air 06/29/17 04:21 36.8 73 17 109/72 (84) 95 Room Air 06/29/17 04:00 Room Air Last Recorded Weight Weight (Kilograms): 58.200 Physical Exam GENERAL: Middle-aged female , AAA x 3, pleasant, healthy-appearing, not in any distress. NECK: Supple, no JVD. RESPIRATORY: Normal breathing efforts, no accessory muscle use, clear to auscultation bilaterally, no wheezes or rales. CARDIOVASCULAR: S1, S2 normal, rate rhythm regular. EXTREMITY: No lower extremity edema NEURO: speech fluent. PSYCHIATRY: Normal mood and judgment Family History Cancer Diabetes mellitus Heart disease Hypertension Lung disease Social History Smoking Status: Current every day smoker Drug Use: marijuana Marital Status: Housing Status: lives with family Occupation: employed Laboratory Results Past 24 Hours 06/29/17 05:42 06/29/17 05:42 Test 06/29/17 05:42 Red Blood Count 3.87 M/uL (4.2-5.4) Mean Corpuscular Volume 94.3 fL (80-100) Mean Corpuscular Hemoglobin 32.0 pg (25-34) Mean Corpuscular Hemoglobin Concent 34.0 g/dl (32-36) RDW Standard Deviation 44.6 fL (36.4-46.3) RDW Coefficient of Variation 13.0 % (11.5-14.5) Mean Platelet Volume 10.4 fL (7.4-10.4) Anion Gap 9.0 mmol/L (3-11) Est Creatinine Clear Calc Drug Dose 75.5 ml/min Estimated GFR () 97.5 Estimated GFR (Non- 84.1 BUN/Creatinine Ratio 21.8 (10-20) Calcium Level 9.5 mg/dl (8.5-10.1) Allergies Coded Allergies: Doxycycline (Verified Allergy, Unknown, rash, 06/27/17) Iodinated Diagnostic Agents (Verified Allergy, Unknown, `, 06/27/17) Latex1 -Allergic Contact Dermititis (Verified Allergy, Unknown, RASH, ) Meperidine (Verified Allergy, Unknown, HIVES, VOMITING, 06/27/17) Prochlorperazine (Verified Allergy, Unknown, ., 06/27/17) [place] (Verified Allergy, Unknown, HIVES, 06/27/17) Tomato (Verified Allergy, Unknown, HIVES, 06/27/17) Uncoded Allergies: Hernandez Beans (Allergy, Unknown, HIVES, 11/27/16) Medications Current Inpatient Medications Medications (Trade) Dose Ordered Sig/Yeimy Route Start Time Stop Time Status Last Admin Dose Admin Heparin Sodium (Porcine) (Heparin Sq 5000 Unit/0.5ml) 5,000 unit Q12 SQ 06/27/17 21:00 07/27/17 20:59 06/29/17 09:03 5,000 UNIT Al Hydrox/Mg Hydrox/Simethicone (Maalox Max Susp) 15 ml Q4H PRN PO 06/27/17 10:45 07/27/17 10:44 Morphine Sulfate (MoRPHine SULFATE INJ) 2 mg Q30M PRN IV 06/27/17 10:45 07/11/17 10:44 Polyethylene (Miralax Powder Packet) 17 gm DAILY PRN PO 06/27/17 10:45 07/27/17 10:44 Aspirin (Aspirin Chew) 81 mg DAILY PO 06/28/17 09:00 07/28/17 08:59 06/29/17 09:00 81 MG Atorvastatin Calcium (Lipitor Tab) 40 mg HS PO 06/27/17 21:00 07/27/17 20:59 06/28/17 20:57 40 MG Clonidine HCl (Catapres Tab) 0.1 mg Q6H PRN PO 06/27/17 10:45 07/27/17 10:44 Isosorbide Mononitrate (Imdur Ext Rel Tab) 30 mg QAM PO 06/28/17 09:00 07/28/17 08:59 06/29/17 09:00 30 MG Losartan Potassium (coZAAR TAB) 50 mg DAILY PO 06/28/17 09:00 07/28/17 08:59 06/29/17 09:01 50 MG Metoprolol Succinate (Toprol Xl Tab) 100 mg BID PO 06/27/17 21:00 07/27/17 20:59 06/29/17 09:01 100 MG Multivitamins (Multivitamin Tab) 1 tab DAILY PO 06/28/17 09:00 07/28/17 08:59 06/29/17 09:01 1 TAB Hydralazine HCl (HydrALAZINE INJ) 10 mg Q4H PRN IV. 06/27/17 10:45 07/27/17 10:44 Lorazepam (Ativan Tab) 0.5 mg Q4H PRN PO 06/27/17 10:45 07/27/17 10:44 06/27/17 12:49 0.5 MG Ondansetron HCl (Zofran Inj) 4 mg Q4H PRN IV 06/27/17 10:45 07/27/17 10:44 06/27/17 12:49 4 MG Metoprolol Tartrate (Lopressor Iv) 5 mg Q4 PRN IV 06/27/17 13:30 07/27/17 13:29 Sertraline HCl (Zoloft Tab) 100 mg QPM PO 06/27/17 21:00 07/27/17 20:59 06/28/17 20:57 100 MG Acetaminophen (Tylenol Tab) 650 mg Q4H PRN PO 06/28/17 13:15 07/28/17 13:14 Impression (1) HYPERTENSIVE URGENCY (2) Chronic hypertension (3) Nausea & vomiting 52 old female with hypertensive urgency nausea vomiting with history of recurrent admission for hypertensive urgency all prior workup negative. Has well preserved GFR but Urinalysis with proteinuria and microscopic hematuria. no significant proteinuria. She reports taking medications regularly denies NSAID use. On admission systolic blood pressure was 209 which slowly started to improve. Currently she continues to have nausea and vomiting denies any headache or visual changes. No hematuria or flank pain. Had extensive workup as an outpatient for secondary causes for hypertension, all w/u unremarkable. Recommendations --continue on losartan 50 and metoprolol on discharge -- avoid NSAIDs --repeat UA reviewed and hematuria and proteinuria on admission urinalysis now seems to have resolved. No further workup indicated at this time.
[2017-06-29] MEDS ORDERED: ZLF/100 PO (10:23)
[2017-06-29] MEDS ORDERED: TPRSR50 PO (10:23)
--- NOTE | 2017-06-29 10:28 | Discharge Instructions ---
Discharge Instructions Date of Service Jun 29, 2017. Admission Reason for Admission: Uncontrolled Hypertension Discharge Discharge Diagnosis / Problem: Uncontrolled hypertension, Takotsubo's Cardiomyopathy Discharge Goals Goal(s): Improve disease control, Diagnostic testing Activity Recommendations Activity Limitations: resume your previous activity Exercise/Sports Limitations: gradually increase as tolerated Shower/Bathe: no limitations . Instructions / Follow-Up Instructions / Follow-Up ACTIVITY RECOMMENDATIONS: Excess manipulation of the wrist should be avoided for the next 24-48 hours. * No lifting over 2 pounds (approximately a 1/2 gallon of milk) with the utilized arm for 24 hours. * No strenuous activity such as bowling or tennis for 3 days. * Keep the site of the procedure covered with a bandage for 24 hours. *You may shower the day after the procedure. Do not take a tub bath or submerge the puncture site in water for the next 3 days. *Do not operate any motorized equipment for 3 days. Please follow up with [facility] and your primary care provider within a week. SPECIAL CARE INSTRUCTIONS: The site may be slightly bruised and sore following your procedure. Should any of the following occur, contact the Dr. who performed your procedure. 1. Redness/inflammation, swelling, chills, or fever, or colored drainage at procedure site within 3-7 days after your procedure. 2. Coldness, discoloration, ongoing numbness, severe pain, or swelling. Expect mild tingling of hand and tenderness at the puncture site for up to three days. If this persists beyond three days, or other symptoms develop, notify the Dr. who performed your procedure. BLEEDING: If the procedure site on your wrist begins to bleed, do not panic 1. Place 1 or 2 fingers firmly just slightly above the insertion site to stop the bleeding. You may be able to feel your pulse as you hold pressure. 2. Lift your finger after 5 minutes to see if the bleeding has stopped. 3. Once the bleeding has stopped, gently wipe the wrist area clean with a bandage. * If the bleeding from your wrist does not stop after 10 minutes, or if there is a large amount of bleeding or spurting, call 911 (do not drive yourself to the hospital). SKIN IRRITATION: * You may experience some redness and/or swelling in the area where radiation was administered. If any skin irritation occurs, please contact your family physician. FOLLOW UP VISIT: Please keep your follow up with Dr. Holland/Cardiology as scheduled on 07/11/17 at 2:15 Current Hospital Diet Patient's current hospital diet: AHA Diet (Heart Healthy) Discharge Diet Recommended Diet: AHA Diet (Heart Healthy) Procedures Procedures Performed: Cardiac Catheterization Chest X ray Pending Studies Studies pending at discharge: no Laboratory Results Lipid Panel Test 06/21/17 03:47 Range/Units Triglycerides Level 101 0-150 mg/dl Cholesterol Level 144 0-200 mg/dl HDL Cholesterol 64 mg/dl Cholesterol/HDL Ratio 2.3 LDL Cholesterol, Calculated 60 mg/dl Medical Emergencies . Who to Call and When: Medical Emergencies: If at any time you feel your situation is an emergency, please call 911 immediately. . Non-Emergent Contact Non-Emergency issues call your: Primary Care Provider, Butter Maker Call Non-Emergent contact if: you have any medication questions . Past History Medical & Surgical History: (1) Elevated troponin (2) Takotsubo cardiomyopathy (3) HYPERTENSIVE URGENCY (4) Anxiety . "Provider Documentation" section prepared by Brigitte Abad. . VTE Core Measure Inpt VTE Proph given/why not?: Unfractionated heparin SQ, SCD's
[2017-06-29 11:34] VITALS: BP 129/86; PULSE 75; TEMP 36.4; O2SAT 94
--- NOTE | 2017-06-29 16:21 | Discharge Summary ---
Discharge Summary Date of Service Jun 29, 2017. (Brigitte Abad CRNP) Discharge Summary Admission Date: Jun 27, 2017 at 12:24 Discharge Date: Jun 29, 2017 Discharge Disposition: Home Principal Diagnosis: Htn urgency, Takotsubo cardiomyopathy Problems/Secondary Diagnoses: (1) Intractable nausea and vomiting Status: Chronic Immunizations: Have You Had Influenza Vaccine: Unknown History of Tetanus Vaccine?: Unknown History of Pneumococcal: Unknown History of Hepatitis B Vaccine: Unknown Procedures: CHEST 2 VIEWS ROUTINE CLINICAL HISTORY: hypertension dyspnea COMPARISON STUDY: 06/20/2017 FINDINGS: Unchanging components of interstitial pulmonary edema. The cardiac silhouette shows no evidence for enlargement. Diaphragms smooth. Very slight bite of the lateral costophrenic angles. IMPRESSION: Interstitial pulmonary edema unchanged from the prior study. Cardiac Cath Jun 28, 2017. Pre-Procedure Diagnosis Non STEMI AUC Score 8 Post-Procedure Diagnosis Mild CAD Procedure(s) Performed Coronary Angiography, Left Heart Cath, Ultrasound Guided Vascular Access Resourcing Advisor Sohail Enterprise Resource Analyst(s) Zhou Estimated Blood Loss 15 Medication(s) Fentanyl, Heparin, Nicardipine, Versed, Lidocaine 1% Summary of Findings Indication: NSTEMI; new LV dysfunction/regional wall motion abnormalities. Access: 6Fr slender right radial artery Catheters: [place] Findings: LM - Angiographically normal LAD - Large caliber vessel that tapers as reaches apex. 20% focal proximal and mid segment narrowings. High small 1st diagonal with 60% ostial stenosis. Circumflex - Moderate caliber. Luminal irregularities. RCA - Dominant, large caliber vessel, diffuse 40% mid segment disease, 20-30% distal segment disease. Luminal irregularities in large R-PDA and PLB. LVEDP - 9 Arterial Closure: TR Band Summary: 1. Mild to moderate non-obstructive coronary artery disease - 40% mid RCA disease 2. Normal intracardiac filling pressures. 3. LV wall motion abnormalities consistent with Takotsubo's cardiomyopathy on TTE Recommendations: Continue ARB and beta-blaine Continued ASCVD risk factor modification including statin, ASA (Brigitte Abad CRNP) Problems/Secondary Diagnoses: Labile HTN mild nonobstructive CAD Anxiety disorder Marijuana abuse disorder Acute hypoxemic respiratory failure Acute on chronic combined systolic and diastolic congestive heart failure with EF 40% microscopic hematuria proteinuria Consultations: Cardiology Nephrology (Leonie Fairbanks MD) Medication Reconciliation New Medications: Metoprolol Succinate (Metoprolol Succinate ER) 50 Mg Tabcr 50 MG PO BID for 30 Days, #60 DOSE Sertraline HCl (Sertraline HCl) 100 Mg Tab 100 MG PO QPM for 30 Days, #30 TAB Continued Medications: Aspirin (Aspirin Chewable) 81 Mg Chew 81 MG PO DAILY Atorvastatin (Atorvastatin Calcium) 40 Mg Tab 40 MG PO HS for 30 Days, #30 TAB 3 Refills Clonidine Hcl (Catapres) 0.1 Mg Tab 1 TAB PO Q6H PRN for Hypertension for 90 Days, #360 TAB 1 Refill Take if systolic blood pressure is above 180. Losartan Potassium (Losartan Potassium) 50 Mg Tab 50 MG PO DAILY, #30 TABS 3 Refills Multivitamin (Multivitamin) Tab 1 TAB PO DAILY, TAB Discontinued Medications: Isosorbide Mononitrate (Isosorbide Mononitrate ER) 30 Mg Tabcr 30 MG PO QAM for 30 Days, #30 TABS Metoprolol Succinate (Metoprolol Succinate ER) 50 Mg Tabcr 100 MG PO BID for 30 Days, #120 TAB Ondasetron Odt (Zofran Odt) 4 Mg Tab 4 MG SL Q6H PRN for Nausea or Vomiting, #6 TAB Sertraline (Zoloft) 50 Mg Tab 1 TAB PO QPM for 30 Days, TAB 2 Refills Discharge Exam ROS Constitutional: no chills, aches, sweats or fever Respiratory: no sob,cough, sputum, or wheezing Cardiac: no chest pain, palpitations, edema, orthopnea or lightheadedness GI: no abdominal pain, nausea, vomiting, diarrhea or constipation : no dysuria or hesitancy Extremities: no joint pain or weakness Skin: no rash Exam General: no distress Eyes: normal inspection, PERLL Respiratory: chest non tender, clear to auscultation, normal breath sounds, no respiratory distress, no accessory muscle use Cardiac: regular rate and rhythm, no rub or gallop, no murmur, no edema, no jvd GI/: active bowel sounds, no abd pain or tenderness, soft, non distended Extremities: normal range of motion, normal strength, non tender Neuro/Psych: alert and oriented x 3, normal mood and affect Skin: normal color, dry (Brigitte Abad ., DARREN) Hospital Course Ms. Velasquez is a 52 year old woman that presented 05/27 for for vomiting and hypertensive urgency. She was recently here and discharged Jun 20 for viral Takotsubo cardiomyopathy where she was found to have new wall motion abnormalities and reduced EF on echocardiogram. She did not undergo cardiac catheterization at that time. Uncontrolled hypertension/hypertensive urgency/vomiting - Cardiology consulted - Cardiac cath 06/29 showed mild CAD and her echo was similar to her last indicating Takotsubo - Blood pressures normalized and were a little on the low side running 90s/50s - low 100s SBP - changed metoprolol to 50 mg bid and discontinued isosorbide for discharge, continued prn clonidine - per outpatient notes, there was suspicion that her blood pressure elevations were in part anxiety related and she was started on an SSRI which was achieving good response. She did not like the side effects of benzodiazepines. - She did not have any evidence of renal artery stenosis on renal artery duplex or MRA and did not have elevated renin levels, or metanephrines in plasma or urine in her outpatient workup. - nephrology consulted for help managing blood pressures - repeat UA and urine protein were normal, agreed with hypertensive meds as recommended by cards. Acute hypoxemic respiratory failure/ Acute on chronic systolic heart failure with EF 40% - On admission BNP elevated at 4052 and unchanged pulm htn on xray - continued IV lasix 06/27 and morning of 06/28 and then discontinued - did not require further supplemental O2 after 06/27 - Echo - stable from last admission showing effects of Takotsubo Elevated troponin - peaked at 1.7 and then trended down - patient never had chest pain Vomiting/ ? vomiting syndrome secondary to marijuana usage - Zofran prn, last dose was 06/27 and then vomiting subsided - lipase was wnl, no abd pain - patient's symptoms seem to occur while in her house initially - carboxyhemoglobin wnl - Patient continues to be regular marijuana user and the vomiting appears to start before the blood pressure goes up - counseled patient on abstaining from marijuana to see if it is the source of the vomiting - resolved Total Time Spent: Greater than 30 minutes This includes examination of the patient, discharge planning, medication reconciliation, and communication with other providers. (Brigitte Abad CRNP) Discharge Instructions Please refer to the electronic Patient Visit Report (Discharge Instructions) for additional information. (Brigitte Abad CRNP) Follow-Up Follow up with cardiology and pcp in one week (Brigitte Abad CRNP) Reviewed: Pt Seen/Exam by Me (Leonie Fairbanks MD) History OFFSET PRESS ASSISTANT Supervision Note: I interviewed and examined the patient. Discussed with DARREN Abad and agree with findings and plan as documented in the note. Any exceptions or clarifications are listed here: Pt presents as a readmission with her usual presentation of acute onset of N/V followed by accelerated HTN. This time though, she denies any chest pain at all. She was discharged 4 days prior after a similar presentation except had additional CP, and was found to have an elevated troponin, new WMAs on ECHO, and new systolic CHF with EF 40%. A cardiac cath was not deemed necessary during that admission by Cardiology. She was started on isosorbide and her metoprolol was changed from tartrate to succinate 100mg bid. Pt reports she did smoke marijuana once she was at home; it helps her anxiety. She was started on Zoloft 1 month ago at 50mg daily and it has helped somewhat. During this admission, pt had acute changes on ECG, no symptoms at all, but due to acute changes, was taken as a heart alert to [facility] programmer. Cath showed nonobstructive disease and ECHO consistent with Takotsubo's CM. Bps low today. Pt denies CP/SOB, is weaned off O2. Bps initially very high and then were actually quite low after her nausea and vomiting subsided. Her metoprolol was cut down again to 50mg bid and the recently started isosorbide was then discontinued on discharge. Vitals reviewed NAD RRR no mgr CTAB no wcr Abd +BS soft NT ND Ext no edema, 2+ DP pulses This pt is a 52 yo female with a h/o labile HTN, marijuana abuse, recent possible stress-induced CM, chronic combined systolic and diastolic CHF, mitral regurgitation, anxiety disorder, and cyclical vomiting, with multiple admissions to the hospital for intractable vomiting and hypertensive urgency. SHe is here again with the same, as well as with acute on chronic combined systolic and diastolic CHF and Takotsubo's CM. -cath nonobstructive CAD--> Cardio recommends staying on ARB and beta blaine -will need repeat ECHO down the line and f/u with Cardio as outpt -was diuresed with IV lasix, now weaned off O2-->no diuretic recommended upon dc , can f/u with Cardiology -again, strongly encouraged Marijuana cessation as this likely plays a role in her cyclical vomiting -she smokes MJ for her anxiety--> was started on Zoloft 1 month ago--> increased Zoloft to 100mg daily -Appreciate Cardiology and Nephrology consultations for BP management--> with microscopic hematuria and proteinuria, wonder if renal GN playing a role in her labile HTN? Pt has an upcoming appt with a HTN Specialist in [place] for further evaluation Documented By: Leonie Fairbanks (Leonie Fairbanks MD)
== END 2017-06-29 13:02 | disposition home or self-care (01) | DRG 286 ==
LOC: C.EDB 07:24 → ENRESERV 11:09 → C.2E 12:24
PROVIDERS: ADMIT Family Medicine; ATTEND Family Medicine
PROC: B2111ZZ Fluoroscopy of Multiple Coronary Arteries using Low Osmolar Contrast (ICD-10-PCS; principal; 2017-06-28 11:44)
PROC: 4A023N7 Measurement of Cardiac Sampling and Pressure, Left Heart, Percutaneous Approach (ICD-10-PCS; principal; 2017-06-28 11:44)
DX: I16.0 Hypertensive urgency (principal); I50.43 Acute on chronic combined systolic (congestive) and diastolic (congestive) heart failure; J96.01 Acute respiratory failure with hypoxia; I51.81 Takotsubo syndrome; I24.8 Other forms of acute ischemic heart disease; I11.0 Hypertensive heart disease with heart failure; R94.31 Abnormal electrocardiogram [ECG] [EKG]; I95.9 Hypotension, unspecified; R31.29 Other microscopic hematuria; R80.9 Proteinuria, unspecified; K31.89 Other diseases of stomach and duodenum; R11.2 Nausea with vomiting, unspecified; T40.7X1A Poisoning by cannabis (derivatives), accidental (unintentional), initial encounter; I25.10 Atherosclerotic heart disease of native coronary artery without angina pectoris; E78.00 Pure hypercholesterolemia, unspecified; I34.0 Nonrheumatic mitral (valve) insufficiency; F41.9 Anxiety disorder, unspecified; F32.9 Major depressive disorder, single episode, unspecified; F12.10 Cannabis abuse, uncomplicated; F17.200 Nicotine dependence, unspecified, uncomplicated; Z79.82 Long term (current) use of aspirin; Z79.899 Other long term (current) drug therapy

== ENCOUNTER → 2017-07-11 | Outpatient (CLI) | payer OTHER ==
[~2017-07-11] MED LIST changes: -IMDSR30 PO; -ONDA4TAB10 SL; +ZLF/100 PO
[2017-07-11 14:56] LABS: BLOOD UREA NITROGEN 8 mg/dl (7-18); BUN/CREATININE RATIO 10.2 (10-20); CALCIUM 8.9 mg/dl (8.5-10.1); CARBON DIOXIDE 28 mmol/L (21-32); CHLORIDE 106 mmol/L (98-107); CREATININE 0.82 mg/dl (0.60-1.20); GLUCOSE 93 mg/dl (70-99); MAGNESIUM 2.1 mg/dl (1.8-2.4); POTASSIUM 3.8 mmol/L (3.5-5.1); SODIUM 137 mmol/L (136-145)
[2017-07-16 18:38] LABS: CALC TOTAL (E+NE) 23 mcg/24 h (26-121); NOREPINEPHRINE UR 23 mcg/24 h (15-100); VANILMANDELIC ACID (VMA) 2.9 mg/24 h (<=6.0)
[2017-07-17 12:27] LABS: NORMETANEPHRINE PLASMA 107 pg/mL (<=148); TOTAL METANEPHRINE PLASMA 173 pg/mL (<=205)
== END | disposition home or self-care (01) ==
LOC: C.LAB1850 14:01
PROVIDERS: ATTEND Nurse Practitioner Adult Health
DX: Z00.00 Encounter for general adult medical examination without abnormal findings (principal); I10 Essential (primary) hypertension; E78.5 Hyperlipidemia, unspecified; R79.89 Other specified abnormal findings of blood chemistry; I50.1 Left ventricular failure, unspecified; F41.9 Anxiety disorder, unspecified

== ENCOUNTER 2017-08-27 14:45 | Observation (INO) | payer OTHER ==
[~2017-08-27] VITALS: Ht 170.2 cm; Wt 62.5 kg
[~2017-08-27 14:45] MED LIST changes: -MULT-506 PO
[2017-08-27] MEDS ORDERED: PANTOprazole INJ 40 MG in SYRINGE 0 ML IV ONE (15:15)
[2017-08-27] MEDS ORDERED: FAMOTIDINE IV INJ 20 MG in DEXTROSE 5% 100ML 100 ML IV ONE (15:15)
[2017-08-27] MEDS ORDERED: SODIUM CHLORIDE 0.9% 1000ML 1,000 ML IV SCH (15:15)
[2017-08-27] MEDS ORDERED: ONDANSETRON 4MG OD TAB PO STA (15:22)
[2017-08-27] MEDS ORDERED: MULT-506 PO (15:25)
--- NOTE | 2017-08-27 15:37 | DIAGNOSTIC IMAGING REPORT ---
CHEST ONE VIEW PORTABLE CLINICAL HISTORY: irretractable nausea and vomiting COMPARISON STUDY: 06/27/2017 FINDINGS: Old right rib fracture. Lungs are clear. Slight chronic basilar interstitial prominence. Heart top limits normal in size. Diaphragms are smooth. IMPRESSION: Mild prominence of pulmonary vasculature. Otherwise negative study. The above report was generated using voice recognition software. It may contain grammatical, syntax or spelling errors. Electronically signed by: Walt Fernandez M.D. 08/27/2017 3:36 PM Dictated Date/Time: 08/27/2017 3:35 PM
--- NOTE | 2017-08-27 15:48 | EMERGENCY ROOM VISIT NOTE ---
History First contact with patient: 14:58 Chief Complaint: VOMITING Stated Complaint: ILLNESS Nursing Triage Summary: Patient reports vomiting since 0500 this AM. Has not been able to keep fluids down. Patient took anti-nausea supository (unsure of name of medication). Patient also has been having High BP. Also c/o "heart burn." Denies any diarrhea or constipation. History of Present Illness 52F with a PMHX of labile HTN, marijuana abuse, Takotsubo Cardiomyopathy in late Jun 2017 (repeat echo in Jul 08 2017 was normal), with multiple admissions to the hospital for intractable vomiting and hypertensive urgency. She is here again with complaints of nausea and vomiting since 5am today. She measured her BP and it was around 210/180. He also had a ESTRELLA and heartburn. Per chart review she has had 8 episodes of HTN and Vomiting since November 2016. She had an echo on Jun 27 with an EF of 40% was diagnosed with Takutsabo's cardiomyopathy. Repeat echo on Jul 08 showed a corrected EF of 60%. (pt had been stressed after the of a mother in law). Pt reports an extensive workup found no cause for the hypertensive emergencies was found. Patient was able to tolerate her Metoprolol and Losartan this AM (in between boughts of vomiting), she is also wearing her Clonidine patch (changes it Q7D) Pt does have a history of smoking marijuana, last smoked 3 days ago. Pt has a PRN Phenergan suppository which she took for her nausea and vomiting without effect. [employer] chart review regarding thyroid nodules: subcentimeter nodule is identified in the left lobe and bilateral subcentimeter colloid cysts all of low suspicion. ROS: Was feeling absolutely normal yesterday, no tremors, wasn't working yesterday, works at a [employer], denies chest pain, denies diarrhea, hematemesis, hematuria, blood in the stool or toilet paper. Review of Systems See HPI for pertinent positives and negatives. A total of ten systems were reviewed and were otherwise negative. Past Medical/Surgical History Medical Problems: (1) MP (acute kidney injury) (2) Anxiety (3) Atherosclerosis Nos (4) Chest pain (5) Chronic hypertension (6) Elevated troponin (7) Elevated troponin (8) Elevated troponin I level (9) Hypertension Nos (10) HYPERTENSIVE URGENCY (11) Hypertensive urgency, malignant (12) Hypokalemia (13) Hyponatremia (14) Intractable nausea and vomiting (15) Malignant essential hypertension (16) Marijuana dependence (17) Nausea & vomiting (18) Non-ST elevation myocardial infarction (NSTEMI) due to mismatch of myocardial oxygen supply and demand (19) Prolonged QT interval (20) Renal artery stenosis (21) Takotsubo cardiomyopathy (22) Uncontrolled hypertension Family History Cancer Diabetes mellitus Heart disease Hypertension Lung disease Social History Smoking Status: Former Smoker Alcohol Use: occasionally Drug Use: marijuana Marital Status: Housing Status: lives with family Occupation Status: employed Current/Historical Medications Scheduled Aspirin (Aspirin Chewable), 81 MG PO DAILY Atorvastatin (Lipitor), 40 MG PO HS Clonidine (Catapres-Tts), 1 PATCH TD WK Losartan Potassium (Cozaar), 50 MG PO DAILY Metoprolol Succinate (Metoprolol Succinate ER), 50 MG PO BID Multivitamin (Multivitamin), 1 TAB PO DAILY Sertraline (Zoloft), 100 MG PO QPM Physical Exam Vital Signs Date Time Temp Pulse Resp B/P (MAP) Pulse Ox O2 Delivery O2 Flow Rate FiO2 08/27/17 19:20 85 08/27/17 18:53 85 178/117 97 Room Air 08/27/17 17:02 81 18 191/123 08/27/17 15:20 78 08/27/17 14:53 36.9 89 208/129 97 Room Air Physical Exam Gen: Moderate distress (pt is actively vomiting) HEENT: Head - normocephalic and atraumatic. Pupils are equal, round, and reactive to light. Extraocular eye muscles are intact and sclera are anicteric. Ears - bilaterally patent canals with noninjected tympanic membranes and no evidence of hemotympanum. Nose - moist nasal mucosa without discharge. Mouth - dry buccal mucosa. Oropharynx is nonerythematous and there is no tonsillar exudate or edema noted. Neck: Supple; no JVD, nuchal rigidity, cervical lymphadenopathy, or auscultated bruits. Heart: Regular rate and rhythm. There is a normal S1 and S2 with no murmurs, clicks, or gallops appreciated. Lungs: Clear to auscultation bilaterally with no wheezes, rales, or rhonchi. Abdomen: Soft, completely nontender, nondistended, with good bowel sounds. There are no palpable pulsatile masses or hepatosplenomegaly. There is no guarding, rigidity, or rebound noted. Extremities: No evidence of cyanosis, clubbing, or edema. There are easily palpable peripheral pulses. Neuro:The patient is awake and alert, oriented to day, time, and place. Muscle strength is 5/5 in all 4 extremities. The patient has equal email marketing manager strength and equal pedal push and pull. There are no cerebellar signs. Medical Decision & Procedures ER Provider Diagnostic Interpretation: CHEST ONE VIEW PORTABLE CLINICAL HISTORY: irretractable nausea and vomiting COMPARISON STUDY: 06/27/2017 FINDINGS: Old right rib fracture. Lungs are clear. Slight chronic basilar interstitial prominence. Heart top limits normal in size. Diaphragms are smooth. IMPRESSION: Mild prominence of pulmonary vasculature. Otherwise negative study. Laboratory Results 08/27/17 15:35 Red Blood Count 4.56, Mean Corpuscular Volume 92.8, Mean Corpuscular Hemoglobin 31.4, Mean Corpuscular Hemoglobin Concent 33.8, Mean Platelet Volume 10.4, Neutrophils (%) (Auto) 88.4, Lymphocytes (%) (Auto) 8.7, Monocytes (%) (Auto) 2.4, Eosinophils (%) (Auto) 0.0, Basophils (%) (Auto) 0.2, Neutrophils # (Auto) 10.99, Lymphocytes # (Auto) 1.08, Monocytes # (Auto) 0.30, Eosinophils # (Auto) 0.00, Basophils # (Auto) 0.03 08/27/17 15:35 Test 08/27/17 15:35 08/27/17 16:05 08/27/17 16:53 08/27/17 17:40 White Blood Count 12.44 K/uL (4.8-10.8) Red Blood Count 4.56 M/uL (4.2-5.4) Hemoglobin 14.3 g/dL (12.0-16.0) Hematocrit 42.3 % (37-47) Mean Corpuscular Volume 92.8 fL (80-100) Mean Corpuscular Hemoglobin 31.4 pg (25-34) Mean Corpuscular Hemoglobin Concent 33.8 g/dl (32-36) Platelet Count 342 K/uL (130-400) Mean Platelet Volume 10.4 fL (7.4-10.4) Neutrophils (%) (Auto) 88.4 % Lymphocytes (%) (Auto) 8.7 % Monocytes (%) (Auto) 2.4 % Eosinophils (%) (Auto) 0.0 % Basophils (%) (Auto) 0.2 % Neutrophils # (Auto) 10.99 K/uL (1.4-6.5) Lymphocytes # (Auto) 1.08 K/uL (1.2-3.4) Monocytes # (Auto) 0.30 K/uL (0.11-0.59) Eosinophils # (Auto) 0.00 K/uL (0-0.5) Basophils # (Auto) 0.03 K/uL (0-0.2) RDW Standard Deviation 43.4 fL (36.4-46.3) RDW Coefficient of Variation 12.9 % (11.5-14.5) Immature Granulocyte % (Auto) 0.3 % Immature Granulocyte # (Auto) 0.04 K/uL (0.00-0.02) Anion Gap 10.0 mmol/L (3-11) Est Creatinine Clear Calc Drug Dose 78.2 ml/min Estimated GFR () 96.0 Estimated GFR (Non- 82.9 BUN/Creatinine Ratio 22.6 (10-20) Calcium Level 9.9 mg/dl (8.5-10.1) Total Bilirubin 0.3 mg/dl (0.2-1) Aspartate Amino Transf (AST/SGOT) 18 U/L (15-37) Alanine Aminotransferase (ALT/SGPT) 22 U/L (12-78) Alkaline Phosphatase 80 U/L (45-117) Pro-B-Type Natriuretic Peptide 3200 pg/ml (0-900) Total Protein 7.9 gm/dl (6.4-8.2) Albumin 4.2 gm/dl (3.4-5.0) Globulin 3.7 gm/dl (2.5-4.0) Albumin/Globulin Ratio 1.1 (0.9-2) Influenza Type A Antigen Neg for Influ A (NEG) Influenza Type B Antigen Neg for Influ B (NEG) Urine Color YELLOW Urine Appearance CLOUDY (CLEAR) Urine pH 7.5 (4.5-7.5) Urine Specific [place] 1.017 (1.000-1.030) Urine Protein 1+ (NEG) Urine Glucose (UA) NEG (NEG) Urine Ketones NEG (NEG) Urine Occult Blood 2+ (NEG) Urine Nitrite NEG (NEG) Urine Bilirubin NEG (NEG) Urine Urobilinogen NEG (NEG) Urine Leukocyte Esterase NEG (NEG) Urine WBC (Auto) 1-5 /hpf (0-5) Urine RBC (Auto) >30 /hpf (0-4) Urine Hyaline Casts (Auto) 1-5 /lpf (0-5) Urine Epithelial Cells (Auto) >30 /lpf (0-5) Urine Bacteria (Auto) NEG (NEG) Urine Opiates Screen NEG (NEG) Urine Methadone, Qualitative NEG (NEG) Urine Barbiturates NEG (NEG) Urine Phencyclidine (PCP) Level NEG (NEG) Ur Amphetamine/Methamphetamine NEG (NEG) MDMA (Ecstasy) Screen NEG (NEG) Urine Benzodiazepines Screen NEG (NEG) Urine Cocaine Metabolite NEG (NEG) Urine Marijuana (THC) POS (NEG) Magnesium Level 1.6 mg/dl (1.8-2.4) Troponin I 0.280 ng/ml (0-0.045) Medications Administered Medications (Trade) Dose Ordered Sig/Yeimy Route Start Time Stop Time Status Last Admin Dose Admin Pantoprazole Sodium 40 mg/ Syringe 10 ml @ 5 mls/min NOW ONCE IV 08/27/17 15:15 08/27/17 15:16 DC 08/27/17 16:02 5 MLS/MIN Famotidine 20 mg/ Dextrose 102 ml @ 200 mls/hr ONE ONCE IV 08/27/17 15:15 08/27/17 15:45 DC 08/27/17 16:02 200 MLS/HR Sodium Chloride 1,000 ml @ 125 mls/hr Q8H IV 08/27/17 15:15 08/27/17 19:14 DC 08/27/17 15:15 125 MLS/HR Ondansetron HCl (Zofran Odt) 4 mg NOW STAT PO 08/27/17 15:22 08/27/17 15:28 DC 08/27/17 15:50 4 MG Metoclopramide HCl (Reglan Inj) 10 mg NOW STAT IV. 08/27/17 16:58 08/27/17 17:09 DC 08/27/17 17:17 10 MG Furosemide 20 mg/ Syringe 2 ml @ 4 mls/min ONE ONCE IV 08/27/17 18:15 08/27/17 18:16 DC 08/27/17 18:52 4 MLS/MIN Aspirin (Ecotrin Tab) 81 mg NOW STAT PO 08/27/17 19:08 08/27/17 19:09 DC 08/27/17 19:17 81 MG Medical Decision The patient's care and disposition was discussed with Dr. Call, Attending ED Physician. This is a 52F with intractable vomiting and HTN. Differential diagnosis include hypertensive urgency, hypertensive emergency, benign hypertension, cardiovascular pathology, pheochromocytoma, electrolyte abnormality, renal disease, end organ damage, gastroenteritis, food borne illness, infections, obstruction, pancreatitis, appendicitis, diverticulitis, inflammatory bowel disease, GI bleed, biliary pathology, toxicologic as well as others were entertained. Triage Nursing notes were reviewed. ED Course included an extensive history and physical exam, labs, XRAY and EKG. CBC - elevated WBC UA - Likely contaminate Urine Tox - Positive for marijuana. Mg - 1.6 (low) CMP - normal BNP 3200 (not her baseline) Trop = 0.138 (could be her baseline), repeat 2 hours later was 0.28. EKG - Normal sinus rhythm, rateo f 78, no ectopy, no ST changes, appears similar to previous EKG. 3:15 - Pt was seen and examined at bedside, initial orders are placed. 3:25 - Case was discussed with Dr Call. 4:00 - Elevated Troponin was reported. Will recheck in two hours, Trop may be the patient's baseline. 5:00 - Vomiting has improved but still present after 4mg ODT Zofran, 10mg IV Reglan were ordered. 5:30 - Bedside echo was performed by Dr. Call and there was suspicion of CHF. 6:00 - Ordered 20mg IV Lasix. 6:15 - Pt called for an admission to [facility]. [place]. Pate made aware of patient in C -Pod Dictation Room. 7:00 - Ordered an ASA for the patient. 7:40 - Spoke to night resident Dr Cool regarding the patient. It is possible that the patient has mild CHF considering the elevated BNP and bedside echo findings. She also has an uptrending Troponin. The etiology may all be related to chronic marijuana and/or cyclic vomiting syndrome which causes an increase in BP and therefore an increased demand on the heart. The patient will be admitted to the [facility] Hospitalist service for further treatment. The pt was informed about the findings as listed above. All questions were answered. Impression Primary Impression: Congestive heart failure, acute Additional Impression: Non-ST elevation myocardial infarction (NSTEMI) due to mismatch of myocardial oxygen supply and demand Departure Information Dispostion Admitted as an inpatient Condition FAIR Referrals Yashira Arizmendi C.R.N.P. (PCP) Patient Instructions My [facility] Resident Involvement: Resident Care Provided Care Provided: Adult ED Problem Qualifiers
[2017-08-27] MEDS ORDERED: LOSA50TA54 PO (15:51)
[2017-08-27] MEDS ORDERED: ATOR-24 PO (15:51)
[2017-08-27] MEDS ORDERED: CLON0.1D7 TD (15:51)
[2017-08-27] MEDS ORDERED: TPRSR/50 PO (15:51)
[2017-08-27] MEDS ORDERED: SERT-234 PO (15:51)
[2017-08-27 15:57] LABS: BASO % 0.2 %; BASO ABS # 0.03 K/uL (0-0.2); HEMATOCRIT 42.3 % (37-47); HEMOGLOBIN 14.3 g/dL (12.0-16.0); IG# 0.04 K/uL (0.00-0.02); LYMPH % 8.7 %; LYMPH ABS # 1.08 K/uL (1.2-3.4); MEAN CELL VOLUME 92.8 fL (80-100); MEAN CORPUSCULAR HEMOGLOBIN 31.4 pg (25-34); MEAN CORPUSCULAR HGB CONC 33.8 g/dl (32-36); MEAN PLATELET VOLUME 10.4 fL (7.4-10.4); MONO % 2.4 %; NEUT % 88.4 %; NEUT ABS # 10.99 K/uL (1.4-6.5); PLATELET COUNT 342 K/uL (130-400); RED CELL DISTRIBUTION WIDTH CV 12.9 % (11.5-14.5); RED CELL DISTRIBUTION WIDTH SD 43.4 fL (36.4-46.3); WHITE BLOOD COUNT 12.44 K/uL (4.8-10.8)
--- NOTE | 2017-08-27 16:11 | EMERGENCY ROOM VISIT NOTE ---
History Report prepared by Andres: Jorge Alberto Murdock Under the Supervision of: Dr. Clarence Call M.D. First contact with patient: 14:58 Chief Complaint: VOMITING Stated Complaint: ILLNESS Nursing Triage Summary: Patient reports vomiting since 0500 this AM. Has not been able to keep fluids down. Patient took anti-nausea supository (unsure of name of medication). Patient also has been having High BP. Also c/o "heart burn." Denies any diarrhea or constipation. History of Present Illness The patient is a 52 year old female who presents to the Emergency Room with complaints of persistent nausea and vomiting since 0500 this morning waking her up from sleep. The patient states that she is vomiting up mucous, green stuff, and she has some blood which is new. She additionally states that her blood pressure has been very high in the 200s, and her elevated blood pressure is always followed by the nausea and vomiting. She states that she has had intractable vomiting multiple times over the past year, and she was last admitted to hospital in June. She denies any chest pain, diarrhea, hematuria , and hematochezia. The patient states that she occasionally has heartburn, and she has been having some heart burn today. She is additionally complaining of a body aches, headache, congestion, cough, and profusely sweating. The patient states that she occasionally smokes marijuana. and she last smoked a few days ago and has not smoked every day this week. The patient notes that she has been worked up by cardiology and GI, and they have not found anything. She denies any alcohol or tobacco use. The patient has a history of thyroid nodules. The patient additionally has a history of Takotsubo's in June and had an echo that showed only a 40% ejection fraction, but two weeks later it went up to 60% Source of History: patient Onset: 0500 Position: other (global) Quality: other (nausea and vomiting) Timing: other (persistent) Associated Symptoms: + headache, + diaphoresis, + cough, No chest pain, No hematochezia, No diarrhea Note: Associated symptoms: body aches, congestion Review of Systems See HPI for pertinent positives and negatives. A total of ten systems were reviewed and were otherwise negative. Past Medical & Surgical Medical Problems: (1) MP (acute kidney injury) (2) Anxiety (3) Atherosclerosis Nos (4) Chest pain (5) Chronic hypertension (6) Elevated troponin (7) Elevated troponin (8) Elevated troponin I level (9) Hypertension Nos (10) HYPERTENSIVE URGENCY (11) Hypertensive urgency, malignant (12) Hypokalemia (13) Hyponatremia (14) Intractable nausea and vomiting (15) Malignant essential hypertension (16) Marijuana dependence (17) Nausea & vomiting (18) Non-ST elevation myocardial infarction (NSTEMI) due to mismatch of myocardial oxygen supply and demand (19) Prolonged QT interval (20) Renal artery stenosis (21) Takotsubo cardiomyopathy (22) Uncontrolled hypertension Family History Cancer Diabetes mellitus Heart disease Hypertension Lung disease Social History Smoking Status: Former Smoker Alcohol Use: occasionally Drug Use: marijuana Marital Status: Housing Status: lives with family Occupation Status: employed Current/Historical Medications Scheduled Aspirin (Aspirin Chewable), 81 MG PO DAILY Atorvastatin (Lipitor), 40 MG PO HS Clonidine (Catapres-Tts), 1 PATCH TD WK Losartan Potassium (Cozaar), 50 MG PO DAILY Metoprolol Succinate (Metoprolol Succinate ER), 50 MG PO BID Multivitamin (Multivitamin), 1 TAB PO DAILY Sertraline (Zoloft), 100 MG PO QPM Allergies Coded Allergies: Doxycycline (Verified Allergy, Unknown, rash, 06/27/17) Iodinated Diagnostic Agents (Verified Allergy, Unknown, `, 06/27/17) Latex1 -Allergic Contact Dermititis (Verified Allergy, Unknown, RASH, ) Meperidine (Verified Allergy, Unknown, HIVES, VOMITING, 06/27/17) Prochlorperazine (Verified Allergy, Unknown, ., 06/27/17) [place] (Verified Allergy, Unknown, HIVES, 06/27/17) Tomato (Verified Allergy, Unknown, HIVES, 06/27/17) Uncoded Allergies: Hernandez Beans (Allergy, Unknown, HIVES, 11/27/16) Physical Exam Vital Signs Date Time Temp Pulse Resp B/P (MAP) Pulse Ox O2 Delivery O2 Flow Rate FiO2 08/27/17 19:20 85 08/27/17 18:53 85 178/117 97 Room Air 08/27/17 17:02 81 18 191/123 08/27/17 15:20 78 08/27/17 14:53 36.9 89 208/129 97 Room Air Physical Exam GENERAL: Awake, alert, fatigued and uncomfortable-appearing, in no distress HENT: Normocephalic, atraumatic. Oropharynx unremarkable. Dry mucous membranes. EYES: Normal conjunctiva. Sclera non-icteric. NECK: Supple. No nuchal rigidity. FROM. No JVD. RESPIRATORY: Clear to auscultation. CARDIAC: Regular rate, normal rhythm. Extremities warm and well perfused. Pulses equal. ABDOMEN: Mild epigastric discomfort. No peritoneal signs. Soft, non-distended. No rebound or guarding. No masses. RECTAL: Deferred. MUSCULOSKELETAL: Chest examination reveals no tenderness. The back is symmetrical on inspection without obvious abnormality. There is no CVA tenderness to palpation. No joint edema. LOWER EXTREMITIES: Calves are equal size bilaterally and non-tender. No edema. No discoloration. NEURO: Normal sensorium. No sensory or motor deficits noted. SKIN: No rash or jaundice noted. Medical Decision & Procedures ER Provider Diagnostic Interpretation: Radiology results as stated below per my review and radiologist interpretation: CHEST ONE VIEW PORTABLE CLINICAL HISTORY: irretractable nausea and vomiting COMPARISON STUDY: 06/27/2017 FINDINGS: Old right rib fracture. Lungs are clear. Slight chronic basilar interstitial prominence. Heart top limits normal in size. Diaphragms are smooth. IMPRESSION: Mild prominence of pulmonary vasculature. Otherwise negative study. The above report was generated using voice recognition software. It may contain grammatical, syntax or spelling errors. Electronically signed by: Walt Fernandez M.D. 08/27/2017 3:36 PM Dictated Date/Time: 08/27/2017 3:35 PM Laboratory Results Test 08/27/17 15:35 08/27/17 16:05 08/27/17 16:53 Pro-B-Type Natriuretic Peptide 3200 pg/ml (0-900) Influenza Type A Antigen Neg for Influ A (NEG) Influenza Type B Antigen Neg for Influ B (NEG) Urine Color YELLOW Urine Appearance CLOUDY (CLEAR) Urine pH 7.5 (4.5-7.5) Urine Specific [place] 1.017 (1.000-1.030) Urine Protein 1+ (NEG) Urine Glucose (UA) NEG (NEG) Urine Ketones NEG (NEG) Urine Occult Blood 2+ (NEG) Urine Nitrite NEG (NEG) Urine Bilirubin NEG (NEG) Urine Urobilinogen NEG (NEG) Urine Leukocyte Esterase NEG (NEG) Urine WBC (Auto) 1-5 /hpf (0-5) Urine RBC (Auto) >30 /hpf (0-4) Urine Hyaline Casts (Auto) 1-5 /lpf (0-5) Urine Epithelial Cells (Auto) >30 /lpf (0-5) Urine Bacteria (Auto) NEG (NEG) Urine Opiates Screen NEG (NEG) Urine Methadone, Qualitative NEG (NEG) Urine Barbiturates NEG (NEG) Urine Phencyclidine (PCP) Level NEG (NEG) Ur Amphetamine/Methamphetamine NEG (NEG) MDMA (Ecstasy) Screen NEG (NEG) Urine Benzodiazepines Screen NEG (NEG) Urine Cocaine Metabolite NEG (NEG) Urine Marijuana (THC) POS (NEG) Laboratory results reviewed by me Medications Administered Medications (Trade) Dose Ordered Sig/Yeimy Route Start Time Stop Time Status Last Admin Dose Admin Pantoprazole Sodium 40 mg/ Syringe 10 ml @ 5 mls/min NOW ONCE IV 08/27/17 15:15 08/27/17 15:16 DC 08/27/17 16:02 5 MLS/MIN Famotidine 20 mg/ Dextrose 102 ml @ 200 mls/hr ONE ONCE IV 08/27/17 15:15 08/27/17 15:45 DC 08/27/17 16:02 200 MLS/HR Sodium Chloride 1,000 ml @ 125 mls/hr Q8H IV 08/27/17 15:15 08/27/17 19:14 DC 08/27/17 15:15 125 MLS/HR Ondansetron HCl (Zofran Odt) 4 mg NOW STAT PO 08/27/17 15:22 08/27/17 15:28 DC 08/27/17 15:50 4 MG Metoclopramide HCl (Reglan Inj) 10 mg NOW STAT IV. 08/27/17 16:58 08/27/17 17:09 DC 08/27/17 17:17 10 MG Furosemide 20 mg/ Syringe 2 ml @ 4 mls/min ONE ONCE IV 08/27/17 18:15 08/27/17 18:16 DC 08/27/17 18:52 4 MLS/MIN Aspirin (Ecotrin Tab) 81 mg NOW STAT PO 08/27/17 19:08 08/27/17 19:09 DC 08/27/17 19:17 81 MG ECG Indication: vomiting Rate (beats per minute): 78 Rhythm: normal sinus Findings: RBBB (incomplete), no acute ischemic change, other (Normal axis) Change: Patient's EKG interpreted by me. ED Course 1458: The patient was evaluated by the resident in room C3 1552: The patient was evaluated in room B4. A complete history and physical exam was performed. 1720: I reevaluated the patient and performed a bedside ultrasound. 1820: The patient's case was discussed with Dr. Pate - He will evaluate the patient for further treatment. Medical Decision I reviewed the patient's past medical history, medications, and the nursing notes as described above. The patient's presentation and history were concerning for viral illness, influenza, gastritis, rflux, gastroenteritis, peptic ulcer, ACS, CHF, pneumonia , bronchitis, cannabinoid induced hyperemesis. The patient is a 52-year-old woman with a past medical history of Takotsubos cardiomyopathy, hypertension, intractable vomiting, marijuana abuse as emergency department with nausea and vomiting per history of present illness. I ll the patient is uncomfortable but in no acute distress, afebrile, initially hypertensive 200s/120s improved to 180s/120s with gentle IVF hydration. Of note patient had an outpatient echo in July which showed resolution of the patients cardiomyopathy diagnosed in June. Today notable for likely recurrence of the patients Takotsubos cardiomyopathy with BNP in the 3000s which is increased from 700s in July. Additionally chest x-ray shows evidence of venous congestion but no overt pulmonary edema. Bedside echo performed suggestive of mild to moderate reduced LV function without evidence of B lines to suggest pulmonary edema on lung ultrasound. IVC did show 50% variability with respiratory cycle suggesting the possibility of some mild intravascular depletion supported by BUN/Cr > 20. However, given the patient s elevated BNP will also treat with gentle diuresis. However the patient has no respiratory symptoms at this time, thus despite the patients elevated blood pressures will defer any rapid blood pressure control at this time. Of note, the patient reports that she did smoke marijuana 2 days prior but denies any daily use although on her recent admission in June it was suspected that cannabis abuse may explain the patients cyclic vomiting. Troponin is elevated to 0.138 which is improved from her admission in June however delta two- hour troponin increased to 0.28 which, given the patients history of nonobstructive coronary disease and history of Takotsubos cardiomyopathy most likely related to demand. Resident discussed case with Dr. Pate, [facility] hospitalist, who is aware of the patient for admission. I discussed the case with the resident physician, examined the patient, and agree with the findings and plan as documented in the residents note unless otherwise clarified here by me. Medication Reconcilliation Current Medication List: was personally reviewed by me Blood Pressure Screening Patient's blood pressure: Elevated blood pressure Monitored by the hospitalist Consults Time Called: 175 Consulting Physician: Dr. Pate Returned Call: [phone] Patient's case discussed with Dr. Pate - He will evaluate the patient for further treatment. Impression Primary Impression: Cardiomyopathy Additional Impressions: Nausea and vomiting Hypertension Scribe Attestation The scribe's documentation has been prepared under my direction and personally reviewed by me in its entirety. I confirm that the note above accurately reflects all work, treatment, procedures, and medical decision making performed by me. Departure Information Dispostion Being Evaluated By Hospitalist Referrals Yashira Arizmendi ,KhoiP. (PCP) Patient Instructions My [facility] Problem Qualifiers
[2017-08-27 16:18] LABS: ALBUMIN 4.2 gm/dl (3.4-5.0); CALCIUM 9.9 mg/dl (8.5-10.1); CREATININE 0.82 mg/dl (0.60-1.20); POTASSIUM 3.6 mmol/L (3.5-5.1)
[2017-08-27 16:34] LABS: TOTAL PROTEIN 7.9 gm/dl (6.4-8.2)
[2017-08-27 16:49] LABS: INFLUENZA B ANTIGEN Neg for Influ B (NEG)
[2017-08-27] MEDS ORDERED: METOCLOPRAMIDE HCL INJ 5 MG/ML 2 ML VIAL IV. STA (16:58)
[2017-08-27] MEDS ORDERED: FUROSEMIDE INJ 20 MG in SYRINGE 0 ML IV ONE (18:15)
[2017-08-27] MEDS ORDERED: ASPIRIN 81 MG ECTAB PO STA (19:08)
[2017-08-27] MEDS ORDERED: POLYETHYLENE (MIRALAX) 17 GM PACK PO PRN (20:45)
[2017-08-27] MEDS ORDERED: NITROGLYCERIN 0.4 MG SL PER TAB CHARGE SL PRN (20:45)
[2017-08-27] MEDS ORDERED: ALUMINUM/MAGNESIUM/SIMETH (MAALOX MAX) 30 ML UDC PO PRN (20:45)
[2017-08-27] MEDS ORDERED: MoRPHine SULFATE 2 MG/ML CARP IV PRN (20:45)
[2017-08-27] MEDS ORDERED: ACETAMINOPHEN 325 MG TAB PO PRN (20:45)
[2017-08-27] MEDS ORDERED: MAGNESIUM HYDROXIDE SUSP 30 ML UDC PO PRN (20:45)
[2017-08-27] MEDS ORDERED: METOPROLOL TARTRATE 1 MG/ML VIAL IV STA (20:57)
[2017-08-27] MEDS ORDERED: POTASSIUM CHLORIDE 20 MEQ TABCR PO ONE (21:15)
[2017-08-27] MEDS: MAGNESIUM SULFATE 1GM / D5W 1 GM in PREMIXED IN D5W 100 ML IV SCH (21:34)
--- NOTE | 2017-08-27 21:38 | History and Physical ---
History & Physical Date & Time of Service: Aug 27, 2017 at 21:38 Chief Complaint: Illness Primary Care Physician: Yashira Arizmendi C.R.N.P. History of Present Illness Source: patient, hospital records This is a 52 yo f with a history of resistant HTN, right CATRACHITA, cylic vomiting, takotsubo cardiomyopathy and persistently elevated troponin that is presenting to us after another episode of severe N&V. The patient states that at 0500 the patient has sudden nausea and vomiting. Since this time she has had recurring episode of N&V and elevated blood pressure. She was concerned because of her bp and came to the ED for evaluation. She was found to have a blood pressure > 200 systolic and evidence of pulmonary congestion on her CXR. She was given IV lasix 20 mg x 1. She was also given reglan, zofran and famotidine for symptom control. Famotidine did help with her reflux. She denies any episodes of chest pain or SOB. She also denies any history of lower extremity edema, calf pain, estrogen replacement, recent travel or h/o DVT/PE. Her mother did suffer from recurrent/chronic DVT. She also has a history of prolonged QTc with her QTc being 490 today. She does admit to smoking recreationally throughout the week, the last time being a few days prior. She notes only smoking approx 0.25 g/ session. She states that it helps with appetite and sleep . She has been admitted to the hospital for chest pain/ HTN this year 7 times ( nov 27, december 20 , december 23, mar 15, apr 26, jun 20 and jun 27) and has been also advised to refrain from marijuana use secondary to her cyclic/ severe vomiting. Past Medical/Surgical History Medical Problems: (1) Atherosclerosis Nos Status: Chronic (2) Chest pain Status: Chronic (3) Elevated troponin Status: Chronic (4) Hypertension Nos Status: Chronic (5) Intractable nausea and vomiting Status: Chronic (6) Malignant essential hypertension Status: Chronic (7) Marijuana dependence Status: Chronic (8) Renal artery stenosis Status: Chronic Family History Cancer Diabetes mellitus Heart disease Hypertension Lung disease Social History Smoking Status: Former Smoker Smokeless Tobacco Use: No Alcohol Use: none Drug Use: marijuana Marital Status: Housing status: lives with family Occupational Status: employed Immunizations History of Influenza Vaccine: Unknown History of Tetanus Vaccine?: Unknown History of Pneumococcal: Unknown History of Hepatitis B Vaccine: Unknown Multi-Drug Resistant Organisms History of MDRO: No Allergies Coded Allergies: Doxycycline (Verified Allergy, Unknown, rash, 06/27/17) Iodinated Diagnostic Agents (Verified Allergy, Unknown, `, 06/27/17) Latex1 -Allergic Contact Dermititis (Verified Allergy, Unknown, RASH, ) Meperidine (Verified Allergy, Unknown, HIVES, VOMITING, 06/27/17) Prochlorperazine (Verified Allergy, Unknown, ., 06/27/17) [place] (Verified Allergy, Unknown, HIVES, 06/27/17) Tomato (Verified Allergy, Unknown, HIVES, 06/27/17) Uncoded Allergies: Hernandez Beans (Allergy, Unknown, HIVES, 11/27/16) Home Medications Scheduled Aspirin (Aspirin Chewable), 81 MG PO DAILY Atorvastatin (Lipitor), 40 MG PO HS Clonidine (Catapres-Tts), 1 PATCH TD WK Losartan Potassium (Cozaar), 50 MG PO DAILY Metoprolol Succinate (Metoprolol Succinate ER), 50 MG PO BID Multivitamin (Multivitamin), 1 TAB PO DAILY Sertraline (Zoloft), 100 MG PO QPM Review of Systems Constitutional: No fever, No chills, No sweats Eyes: No worsening of vision ENT: No hearing loss Respiratory: No cough, No sputum, No wheezing, No shortness of breath, No dyspnea on exertion, No dyspnea at rest Cardiovascular: No chest pain Abdomen: + nausea, + vomiting, No pain, No diarrhea, No constipation, No GI bleeding Musculoskeletal: No joint pain, No muscle pain Genitourinary - Female: No dysuria, No hematuria Neurologic: No weakness, No numbness/tingling, No balance problems Psychiatric: No depression symptoms Endocrine: No fatigue Hematologic / Lymphatic: No abnormal bleeding/bruising Integumentary: No rash Physical Exam Vital Signs Date Time Temp Pulse Resp B/P (MAP) Pulse Ox O2 Delivery O2 Flow Rate FiO2 08/27/17 21:35 94 151/82 08/27/17 19:20 85 08/27/17 18:53 85 178/117 97 Room Air 08/27/17 17:02 81 18 191/123 08/27/17 15:20 78 08/27/17 14:53 36.9 89 208/129 97 Room Air General Appearance: no apparent distress Head: normocephalic, atraumatic Eyes: normal inspection ENT: normal ENT inspection Neck: supple, no JVD, no carotid bruits Respiratory/Chest: normal breath sounds, no respiratory distress, no accessory muscle use Cardiovascular: regular rate, rhythm, no murmur, normal peripheral pulses Abdomen/GI: normal bowel sounds, non tender, soft Back: normal inspection, no CVA tenderness, normal range of motion Extremities/Musculoskelatal: normal inspection, no calf tenderness, no pedal edema, normal range of motion Neurologic/Psych: alert, normal mood/affect, oriented x 3 Skin: normal color, warm/dry, no rash Lymphatic: no adenopathy Diagnostics Laboratory Results Results Past 24 Hours Test 08/27/17 15:35 08/27/17 16:05 08/27/17 16:53 08/27/17 17:40 Range/Units White Blood Count 12.44 4.8-10.8 K/uL Red Blood Count 4.56 4.2-5.4 M/uL Hemoglobin 14.3 12.0-16.0 g/dL Hematocrit 42.3 37-47 % Mean Corpuscular Volume 92.8 80-100 fL Mean Corpuscular Hemoglobin 31.4 25-34 pg Mean Corpuscular Hemoglobin Concent 33.8 32-36 g/dl Platelet Count 342 130-400 K/uL Mean Platelet Volume 10.4 7.4-10.4 fL Neutrophils (%) (Auto) 88.4 % Lymphocytes (%) (Auto) 8.7 % Monocytes (%) (Auto) 2.4 % Eosinophils (%) (Auto) 0.0 % Basophils (%) (Auto) 0.2 % Neutrophils # (Auto) 10.99 1.4-6.5 K/uL Lymphocytes # (Auto) 1.08 1.2-3.4 K/uL Monocytes # (Auto) 0.30 0.11-0.59 K/uL Eosinophils # (Auto) 0.00 0-0.5 K/uL Basophils # (Auto) 0.03 0-0.2 K/uL RDW Standard Deviation 43.4 36.4-46.3 fL RDW Coefficient of Variation 12.9 11.5-14.5 % Immature Granulocyte % (Auto) 0.3 % Immature Granulocyte # (Auto) 0.04 0.00-0.02 K/uL Sodium Level 141 136-145 mmol/L Potassium Level 3.6 3.5-5.1 mmol/L Chloride Level 108 98-107 mmol/L Carbon Dioxide Level 23 21-32 mmol/L Anion Gap 10.0 3-11 mmol/L Blood Urea Nitrogen 19 7-18 mg/dl Creatinine 0.82 0.60-1.20 mg/dl Est Creatinine Clear Calc Drug Dose 78.2 ml/min Estimated GFR () 96.0 Estimated GFR (Non- 82.9 BUN/Creatinine Ratio 22.6 10-20 Random Glucose 140 70-99 mg/dl Calcium Level 9.9 8.5-10.1 mg/dl Total Bilirubin 0.3 0.2-1 mg/dl Aspartate Amino Transf (AST/SGOT) 18 15-37 U/L Alanine Aminotransferase (ALT/SGPT) 22 12-78 U/L Alkaline Phosphatase 80 45-117 U/L Troponin I 0.138 0.280 0-0.045 ng/ml Pro-B-Type Natriuretic Peptide 3200 0-900 pg/ml Total Protein 7.9 6.4-8.2 gm/dl Albumin 4.2 3.4-5.0 gm/dl Globulin 3.7 2.5-4.0 gm/dl Albumin/Globulin Ratio 1.1 0.9-2 Influenza Type A Antigen Neg for Influ A NEG Influenza Type B Antigen Neg for Influ B NEG Urine Color YELLOW Urine Appearance CLOUDY CLEAR Urine pH 7.5 4.5-7.5 Urine Specific [place] 1.017 1.000-1.030 Urine Protein 1+ NEG Urine Glucose (UA) NEG NEG Urine Ketones NEG NEG Urine Occult Blood 2+ NEG Urine Nitrite NEG NEG Urine Bilirubin NEG NEG Urine Urobilinogen NEG NEG Urine Leukocyte Esterase NEG NEG Urine WBC (Auto) 1-5 0-5 /hpf Urine RBC (Auto) >30 0-4 /hpf Urine Hyaline Casts (Auto) 1-5 0-5 /lpf Urine Epithelial Cells (Auto) >30 0-5 /lpf Urine Bacteria (Auto) NEG NEG Urine Opiates Screen NEG NEG Urine Methadone, Qualitative NEG NEG Urine Barbiturates NEG NEG Urine Phencyclidine (PCP) Level NEG NEG Ur Amphetamine/Methamphetamine NEG NEG MDMA (Ecstasy) Screen NEG NEG Urine Benzodiazepines Screen NEG NEG Urine Cocaine Metabolite NEG NEG Urine Marijuana (THC) POS NEG Magnesium Level 1.6 1.8-2.4 mg/dl Test 08/27/17 20:56 Range/Units Diagnostic Radiology [~ rep ct add3]] CHEST ONE VIEW PORTABLE CLINICAL HISTORY: irretractable nausea and vomiting COMPARISON STUDY: 06/27/2017 FINDINGS: Old right rib fracture. Lungs are clear. Slight chronic basilar interstitial prominence. Heart top limits normal in size. Diaphragms are smooth. IMPRESSION: Mild prominence of pulmonary vasculature. Otherwise negative study. EKG Normal sinus rhythm Possible Left atrial enlargement Incomplete right bundle branch block Prolonged QT Abnormal ECG When compared with ECG of 28-JUN-2017 10:07, Incomplete right bundle branch block is now Present QT has shortened Diffuse T wave inversion and ST elevation is no longer present QTc 490 Impression Assessment and Plan This is a 52 yo f with a h/o Takotsubo cardiomyopathy ( Jun 2017), hypertensive emergency, right CATRACHITA and cyclic vomiting presenting to us with a recurrent episode of cyclic vomiting, malignant hypertension and an increasing troponin level. Elevated troponin concerning for supply/ demand mismatch possibly secondary to malignant htn, ischemia vs vasospasm - tele obs - echo after EF was 40% but repeat echo Jul 10 2017 revealed no wall motion abn, EF WNL - Cath jun 2017: 1. Mild to moderate non-obstructive coronary artery disease - 40% mid RCA disease 2. Normal intracardiac filling pressures. 3. LV wall motion abnormalities consistent with Takotsubo's cardiomyopathy on TTE - troponin trend - repeat EKG in the am - patient did not suffer from any chest pain/ SOB with the onset of the N&V, the patient has no ischemic changes on her EKG aside from a new incomplete RBBB from jul 2017 EKGs; the increasing troponin is most likely secondary to malignant htn over CAD; vasospasm was also considered and if patient's bp remains elevated after 5 mg of IV lopressor will consider one time dose of amlodipine 2.5 mg - also, in light of an increasing troponin, signs of pulmonary congestion on CXR , elevated DDimer which was normal in 2013 will r/o PE with CTA however low on differential - only given ASA 81 mg for elevated troponin in ED, additional 162 mg given - consult [facility] - will defer echo for now as WNL jul 2017 and pending CTA results cyclic vomiting possibly secondary to hyperemesis cannabinoid syndrome - avoid antiemetics with potential for prolonging QTc further - Ativan 0.25 mg SL for nausea q6h - ongoing education on refraining from marijuana use - Tolerating PO when seen in ED prolonged QTc but < 500 - repeat EKG in am - Sertraline held - K 3.6, given 40meq PO - Mag 1.6- 2 G IV given HTN/HLD - cont home meds - clonidine patch, Toprol XL bid 50 mg and Losartan 50 mg - continue atorvastatin 40 mg DVT prophylaxis SCD FULL CODE Attending addendum: I have physically seen this patient, have supervised the medical residents activities, and agree with the H&P unless as otherwise noted. Assessment and Plan: Increasing troponin/uncontrolled hypertension/coronary artery vasospasm/ catheterization 06/20 mild to moderate nonobstructive CAD/Takotsubo's cardiomyopathy-- The patient will be admitted to telemetry for serial cardiac enzymes, serial EKG's, and cardiac rhythm monitoring. Continue current regimen of clonidine patch, metoprolol succinate 50 mg twice a day and losartan 50 mg daily Add amlodipine 2.5 mg by mouth daily for now. 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 This physical stress may have a contributing factor to her heart issues. Level of Care Telemetry Advanced Directives Existing Advance Directive: No Existing Living Will: No Existing Power of [employer] Administrator: No Resuscitation Status FULL RESUSCITATION VTE Prophylaxis VTE Risk Assessment Done? Y/N: Yes Risk Level: Moderate Given or contraindicated: SCD's Social Service Consult None Apply Additional Copies To Yashira Arizmendi C.R.N.P.
[2017-08-27 22:05] VITALS: BP 169/108; PULSE 82; TEMP 37.7; O2SAT 94; Ht 170.2 cm; Wt 62.5 kg
[2017-08-27] MEDS ORDERED: METOPROLOL TARTRATE 1 MG/ML VIAL IV PRN (23:00)
[2017-08-27] MEDS ORDERED: ATORVASTATIN 40 MG TAB PO SCH (23:15)
[2017-08-27] MEDS ORDERED: IV FLUIDS COMPLETED PRN (23:45)
[2017-08-27 23:53] VITALS: BP 153/98; PULSE 75; TEMP 37.2; O2SAT 96
[2017-08-28] VITALS (8 sets, daily range): BP systolic 104–137; BP diastolic 62–85; PULSE 58–72; TEMP 36.8–37.1; O2SAT 96–97
[2017-08-28] MEDS: METOPROLOL SUCC 50MG EXT REL TAB PO SCH ×2 (00:45→08:24)
[2017-08-28] MEDS ORDERED: CALCIUM CARBONATE 500 MG CHEWABLE PO PRN (00:45)
[2017-08-28] MEDS: MAGNESIUM SULFATE 1GM / D5W 1 GM in PREMIXED IN D5W 100 ML IV SCH (00:52)
[2017-08-28] MEDS ORDERED: OPTIRAY 320 IV PRN (01:00)
[2017-08-28] MEDS ORDERED: LORAZEPAM 0.5 MG TAB SL PRN (01:00)
[2017-08-28] MEDS ORDERED: ASPIRIN 81 MG CHEW PO STA (05:15)
--- NOTE | 2017-08-28 06:38 | DIAGNOSTIC IMAGING REPORT ---
CT ANGIOGRAPHY OF THE CHEST, PULMONARY EMBOLUS PROTOCOL CLINICAL HISTORY: Elevated d-dimer. COMPARISON STUDY: Chest CT June 20, 2017 and chest radiograph August 27, 2017. TECHNIQUE: Patient was premedicated for an IV dye allergy. Following IV administration of 93 mL of Optiray-320, helical axial images of the chest were obtained utilizing the pulmonary embolus protocol. Maximal intensity projections and sagittal and coronal reformats were viewed on an independent 3D workstation. IV contrast was administered without complication. A dose lowering technique was utilized adhering to the principles of ALARA. CT DOSE: 209.24 mGy.cm FINDINGS: No pulmonary emboli are identified. There is no evidence for thoracic aortic dissection. The size of the heart is at the upper limits of normal. There is no pericardial effusion. No enlarged axillary, mediastinal or hilar lymph nodes are present. Central airways are patent. There is mild to moderate emphysema. No consolidation is identified. Dependent atelectasis is noted. No pneumothorax or pleural effusion is noted. No suspicious osseous lesions are noted. Upper abdomen is unremarkable. IMPRESSION: 1. No pulmonary emboli identified. 2. No acute intrathoracic findings. 3. Mild to moderate emphysema. Electronically signed by: Flynn Shipley M.D. 08/28/2017 6:37 AM Dictated Date/Time: 08/28/2017 6:32 AM
[2017-08-28 07:44] LABS: BASO % 0.5 %; BASO ABS # 0.06 K/uL (0-0.2); EOS % 0.5 %; EOS ABS # 0.06 K/uL (0-0.5); HEMATOCRIT 40.6 % (37-47); HEMOGLOBIN 13.8 g/dL (12.0-16.0); IG# 0.04 K/uL (0.00-0.02); LYMPH % 27.7 %; LYMPH ABS # 3.66 K/uL (1.2-3.4); MEAN CELL VOLUME 92.1 fL (80-100); MEAN CORPUSCULAR HEMOGLOBIN 31.3 pg (25-34); MEAN PLATELET VOLUME 10.3 fL (7.4-10.4); MONO ABS # 1.19 K/uL (0.11-0.59); NEUT ABS # 8.21 K/uL (1.4-6.5); PLATELET COUNT 297 K/uL (130-400); RED CELL DISTRIBUTION WIDTH CV 13.2 % (11.5-14.5); RED CELL DISTRIBUTION WIDTH SD 44.1 fL (36.4-46.3); WHITE BLOOD COUNT 13.22 K/uL (4.8-10.8)
[2017-08-28 07:54] LABS: INR 0.9 (0.9-1.1); PTT PATIENT 23.8 SECONDS (21.0-31.0)
[2017-08-28 08:10] LABS: ALBUMIN 3.8 gm/dl (3.4-5.0); CALCIUM 9.6 mg/dl (8.5-10.1); CREATININE 0.82 mg/dl (0.60-1.20); POTASSIUM 3.5 mmol/L (3.5-5.1)
[2017-08-28 08:13] LABS: TOTAL PROTEIN 7.2 gm/dl (6.4-8.2)
[2017-08-28] MEDS: CHECK CLONIDINE PATCH PLACEMENT SCH ×3 (08:25→14:43)
[2017-08-28 08:27] LABS: HEMOGLOBIN A1C 5.8 % (4.5-5.6)
[2017-08-28] MEDS ORDERED: MULTIVITAMIN TAB PO SCH (09:00)
[2017-08-28] MEDS ORDERED: LOSARTAN POTASSIUM 50 MG TAB PO SCH (09:00)
[2017-08-28] MEDS ORDERED: ASPIRIN 81 MG ECTAB PO SCH (09:00)
[2017-08-28] MEDS ORDERED: POTASSIUM CHLORIDE 20 MEQ TABCR PO ONE (10:45)
--- NOTE | 2017-08-28 10:51 | ECHOCARDIOGRAM REPORT ---
*NOTICE TO RECEIVING [employer] This information is strictly Confidential and protected under [place] law. [place] law prohibits you from making any further disclosure of this information unless further disclosure is expressly permitted by the written consent of the person to whom it pertains or is authorized by law. A general authorization for the release of medical or other information is not sufficient for this purpose. Hospital accepts no responsibility if the information is made available to any other person, INCLUDING THE PATIENT. Interpretation Summary * Name: ONEL MONTOYA Study Date: 08/28/2017 06:30 AM BP: 113/72 mmHg * Patient Location: .2E\S\E207\S\1 HR: 72 * : 1965 (M/d/yyyy) Gender: Female Height: 67 in * Age: 52 yrs Ethnicity: CA Weight: 134 lb * Ordering Physician: Kellen Cool * Referring Physician: Self, Referred * Performed By: Paula Segal RDCS * * Reason For Study: Elevated troponin * BSA: 1.7 m2 * -- Conclusions -- * 1. Normal LV size. Normal LV wall thickness. * 2. Normal LV systolic function. LVEF 40-45%. Akinetic basal inferior, inferolateral and septal wright. Grade I diastolic dysfunction. * 3. Normal RV size and function. * 4. Mild to moderate mitral regurgitation. * 5. Normal estimated PA and RA pressures. * 6. Compared with prior study on 06/27/2017: Apical wall motion has resolved. Basal inferior, inferolateral and septal wall motion abnormalities are new. Procedure Details * A complete two-dimensional transthoracic echocardiogram was performed (2D, M-mode, Doppler and color flow Doppler). Left Ventricle * The left ventricle is grossly normal size. * There is normal left ventricular wall thickness. * Ejection Fraction = 40-45%. * Akinetic basal inferior, inferolateral and septal wright. Right Ventricle * The right ventricle is grossly normal size. * The right ventricular systolic function is normal as assessed by tricuspid annular plane systolic excursion (TAPSE) (normal >1.5 cm). Atria * The left atrium is borderline dilated. * Borderline right atrial enlargement. * No ASD detected; PFO is not assessed. Mitral Valve * The mitral valve is grossly normal. * There is no mitral valve stenosis. * There is mild to moderate mitral regurgitation. Tricuspid Valve * There is trace tricuspid regurgitation. Aortic Valve * The aortic valve opens well. * The aortic valve is trileaflet. * No hemodynamically significant valvular aortic stenosis. * There is no significant aortic regurgitation. Pulmonic Valve * The pulmonary valve is inadequately visualized, but the Doppler data is adequate for interpretation. * Pulmonic stenosis is absent. * There is no significant pulmonary regurgitation. Great Vessels * The aortic root and proximal ascending aorta are normal sized. Pericardium/Pleural * There is no pericardial effusion. Great Vessels * Normal inferior vena cava size and collapsability with sniff indicates a normal right atrial pressure of 3 mmHg Left Ventricular Diastolic Function * Grade I diastolic dysfunction, (abnormal relaxation pattern). MMode 2D Measurements and Calculations IVSd 0.79 cm LVIDd 4.7 cm LVIDs 3.8 cm LVPWd 0.98 cm IVS/LVPW 0.81 FS 19.8 % EDV(Teich) 102.0 ml ESV(Teich) 60.6 ml EF(Teich) 40.6 % EDV(cubed) 103.4 ml ESV(cubed) 53.4 ml EF(cubed) 48.3 % LV mass(C)d 138.4 grams LV mass(C)dI 81.1 grams/m\S\2 SV(Teich) 41.4 ml SI(Teich) 24.3 ml/m\S\2 SV(cubed) 50.0 ml SI(cubed) 29.3 ml/m\S\2 Ao root diam 2.8 cm Ao root area 6.1 cm\S\2 ACS 2.0 cm LA dimension 2.9 cm asc Aorta Diam 2.2 cm LA/Ao 1.0 LVOT diam 2.0 cm LVOT area 3.2 cm\S\2 LVAd ap4 20.2 cm\S\2 LVLd ap4 6.5 cm EDV(MOD-sp4) 53.8 ml EDV(sp4-el) 53.0 ml LVAs ap4 13.4 cm\S\2 LVLs ap4 5.1 cm ESV(MOD-sp4) 32.1 ml ESV(sp4-el) 30.2 ml EF(MOD-sp4) 40.4 % EF(sp4-el) 43.0 % LVAd ap2 23.1 cm\S\2 LVLd ap2 7.7 cm EDV(MOD-sp2) 63.6 ml EDV(sp2-el) 58.6 ml LVAs ap2 15.6 cm\S\2 LVLs ap2 5.7 cm ESV(MOD-sp2) 38.1 ml ESV(sp2-el) 36.2 ml EF(MOD-sp2) 40.1 % EF(sp2-el) 38.3 % LVLd %diff 15.2 % EDV(MOD-bp) 63.4 ml LVLs %diff 11.6 % ESV(MOD-bp) 38.1 ml EF(MOD-bp) 39.9 % SV(MOD-sp4) 21.7 ml SI(MOD-sp4) 12.7 ml/m\S\2 SV(MOD-sp2) 25.5 ml SI(MOD-sp2) 14.9 ml/m\S\2 SV(MOD-bp) 25.3 ml SI(MOD-bp) 14.8 ml/m\S\2 SV(sp4-el) 22.8 ml SI(sp4-el) 13.4 ml/m\S\2 SV(sp2-el) 22.5 ml SI(sp2-el) 13.2 ml/m\S\2 Doppler Measurements and Calculations MV E max ian 51.4 cm/sec MV A max ian 66.0 cm/sec MV E/A 0.78 MV dec time 0.28 sec Ao V2 max 126.0 cm/sec Ao max PG 6.3 mmHg Ao max PG (full) 3.8 mmHg LORENA(V,A) 2.0 cm\S\2 LORENA(V,D) 2.0 cm\S\2 LV V1 max PG 2.6 mmHg LV V1 max 80.5 cm/sec MR max ian 500.7 cm/sec MR max PG 100.3 mmHg MR mean ian 387.3 cm/sec MR mean PG 68.5 mmHg MR VTI 170.5 cm PA V2 max 77.6 cm/sec PA max PG 2.4 mmHg PA acc slope 410.5 cm/sec\S\2 PA acc time 0.17 sec PA pr(Accel) 1.4 mmHg
--- NOTE | 2017-08-28 14:23 | Cardiology Consultation ---
Cardiology Consultation Date of Consultation: Aug 28, 2017. Requesting Physician: Luis Alfredo Reason for Consultation: HTN, CAD, CHF, elevated troponin Pt evaluation today including: conversation w/ patient, physical exam, chart review, lab review, review of studies, review of inpatient medication list, conversation w/ attending History of Present Illness The patient is a 52-year-old woman with a history of nonobstructive coronary disease, stress cardiomyopathy and intermittent episodes of hypertensive urgency who was in her usual state of health when she woke last night with nausea and vomiting. Patient states she is single episode and felt slightly better. She took a anti medic previously prescribed but then began having more significant nausea and vomiting. During these episodes the patient also developed a sense of severe heartburn in the precordial area. Due to the severe and unrelenting nature of the symptoms she presented to [facility] for additional evaluation. She has also noted be markedly hypertensive. Patient was treated with antacids and given additional antihypertensive. She was admitted to telemetry and this morning feels much better. At the time of this interview the patient has tolerated some food she no longer has nausea she has not been vomiting. Her chest discomfort is also resolved. Until last night the patient had been feeling well. She has been performing her usual duties at work without significant limitation. Rarely she has some sensation of dyspnea but this is generally not limiting. She can often rest for minute and continue her activity. She does not have orthopnea. She has not had paroxysmal nocturnal dyspnea. She has been checking her blood pressures and generally they have been good with addition of her clonidine patch. She has not had dizziness or lightheadedness. Generally she does not have symptoms of chest discomfort. She has not noticed any swelling in her lower extremities. Past Medical/Surgical History Nonobstructive coronary disease, catheterization performed June 2017 Hypertension Anxiety History of stress cardiomyopathy Hyperlipidemia Thyroid nodules Diverticulosis History of hyperemesis The surgical history Hernia repair Hysterectomy Family History Cancer Diabetes mellitus Heart disease Hypertension Lung disease Noncontributory Social History Smoking Status: Former Smoker History of Alcohol Use: No Currently employed in the [employer] industry Review of Systems Per HPI. No recent constitutional symptoms although she does occasionally have some sweats. This has been going on for some time and appears occur spontaneously. She also does report that during her episode last night she had shaking chills. All Other Systems: Reviewed and Negative Allergies Coded Allergies: Doxycycline (Verified Allergy, Unknown, rash, 06/27/17) Iodinated Diagnostic Agents (Verified Allergy, Unknown, `, 06/27/17) Latex1 -Allergic Contact Dermititis (Verified Allergy, Unknown, RASH, ) Meperidine (Verified Allergy, Unknown, HIVES, VOMITING, 06/27/17) Prochlorperazine (Verified Allergy, Unknown, ., 06/27/17) [place] (Verified Allergy, Unknown, HIVES, 06/27/17) Tomato (Verified Allergy, Unknown, HIVES, 06/27/17) Uncoded Allergies: Hernandez Beans (Allergy, Unknown, HIVES, 11/27/16) Medications Current Inpatient Medications Medications (Trade) Dose Ordered Sig/Yeimy Route Start Time Stop Time Status Last Admin Dose Admin Acetaminophen (Tylenol Tab) 650 mg Q4H PRN PO 08/27/17 20:45 09/26/17 20:44 Al Hydrox/Mg Hydrox/Simethicone (Maalox Max Susp) 15 ml Q4H PRN PO 08/27/17 20:45 09/26/17 20:44 Magnesium Hydroxide (Milk Of Magnesia Susp) 30 ml Q12H PRN PO 08/27/17 20:45 09/26/17 20:44 Nitroglycerin (Nitrostat Tab) 0.4 mg UD PRN SL 08/27/17 20:45 09/26/17 20:44 Morphine Sulfate (MoRPHine SULFATE INJ) 2 mg Q30M PRN IV 08/27/17 20:45 09/10/17 20:44 Polyethylene (Miralax Powder Packet) 17 gm DAILY PRN PO 08/27/17 20:45 09/26/17 20:44 Aspirin (Ecotrin Tab) 81 mg QAM PO 08/28/17 09:00 09/27/17 08:59 08/28/17 08:23 81 MG Atorvastatin Calcium (Lipitor Tab) 40 mg HS PO 08/27/17 23:15 09/26/17 23:14 08/28/17 00:45 40 MG Clonidine HCl (Pgnunluz-Iso-9 0.1mg/24hr Patch) 1 patch We@0900 TD 09/03/17 09:00 10/03/17 08:59 Losartan Potassium (coZAAR TAB) 50 mg DAILY PO 08/28/17 09:00 09/27/17 08:59 08/28/17 08:23 50 MG Metoprolol Succinate (Toprol Xl Tab) 50 mg BID PO 08/27/17 23:15 09/26/17 23:14 08/28/17 08:24 50 MG Multivitamins (Multivitamin Tab) 1 tab DAILY PO 08/28/17 09:00 09/27/17 08:59 Metoprolol Tartrate (Lopressor Iv) 5 mg Q6H PRN IV 08/27/17 23:00 09/26/17 22:59 Miscellaneous (Remove Clonidine Patch) 1 ea We@0859 N/A 09/03/17 08:59 10/03/17 08:58 Miscellaneous Information (Check Clonidine Patch Placement) 1 ea QS N/A 08/28/17 00:00 09/27/17 00:00 08/28/17 08:25 1 EA Miscellaneous (Iv Fluids Completed) 1 ea PRN PRN N/A 08/27/17 23:45 08/27/18 23:44 Calcium Carbonate (Tums Chew Tab) 1,000 mg Q6H PRN PO 08/28/17 00:45 09/27/17 00:44 Lorazepam (Ativan Tab) 0.25 mg Q6H PRN SL 08/28/17 01:00 09/27/17 00:59 Ioversol (Optiray 320) 100 ml UD PRN IV 08/28/17 01:00 09/01/17 00:59 Physical Exam Vital Signs Past 12 Hours Date Time Temp Pulse Resp B/P (MAP) Pulse Ox O2 Delivery O2 Flow Rate FiO2 08/28/17 11:50 37.1 60 16 105/70 (82) 97 Room Air 08/28/17 11:50 Room Air 08/28/17 11:10 Room Air 08/28/17 08:06 36.8 58 16 111/68 (82) 96 Room Air 08/28/17 07:50 Room Air 08/28/17 07:50 Room Air 08/28/17 04:30 36.8 72 16 113/72 (86) 96 Room Air 08/28/17 04:00 96 Room Air Data Laboratory Results: Last 24 Hours Test 08/27/17 15:35 08/27/17 16:05 08/27/17 16:53 08/27/17 17:40 White Blood Count 12.44 K/uL Red Blood Count 4.56 M/uL Hemoglobin 14.3 g/dL Hematocrit 42.3 % Mean Corpuscular Volume 92.8 fL Mean Corpuscular Hemoglobin 31.4 pg Mean Corpuscular Hemoglobin Concent 33.8 g/dl Platelet Count 342 K/uL Mean Platelet Volume 10.4 fL Neutrophils (%) (Auto) 88.4 % Lymphocytes (%) (Auto) 8.7 % Monocytes (%) (Auto) 2.4 % Eosinophils (%) (Auto) 0.0 % Basophils (%) (Auto) 0.2 % Neutrophils # (Auto) 10.99 K/uL Lymphocytes # (Auto) 1.08 K/uL Monocytes # (Auto) 0.30 K/uL Eosinophils # (Auto) 0.00 K/uL Basophils # (Auto) 0.03 K/uL RDW Standard Deviation 43.4 fL RDW Coefficient of Variation 12.9 % Immature Granulocyte % (Auto) 0.3 % Immature Granulocyte # (Auto) 0.04 K/uL Sodium Level 141 mmol/L Potassium Level 3.6 mmol/L Chloride Level 108 mmol/L Carbon Dioxide Level 23 mmol/L Anion Gap 10.0 mmol/L Blood Urea Nitrogen 19 mg/dl Creatinine 0.82 mg/dl Est Creatinine Clear Calc Drug Dose 78.2 ml/min Estimated GFR () 96.0 Estimated GFR (Non- 82.9 BUN/Creatinine Ratio 22.6 Random Glucose 140 mg/dl Calcium Level 9.9 mg/dl Total Bilirubin 0.3 mg/dl Aspartate Amino Transf (AST/SGOT) 18 U/L Alanine Aminotransferase (ALT/SGPT) 22 U/L Alkaline Phosphatase 80 U/L Troponin I 0.138 ng/ml 0.280 ng/ml Pro-B-Type Natriuretic Peptide 3200 pg/ml Total Protein 7.9 gm/dl Albumin 4.2 gm/dl Globulin 3.7 gm/dl Albumin/Globulin Ratio 1.1 Influenza Type A Antigen Neg for Influ A Influenza Type B Antigen Neg for Influ B Urine Color YELLOW Urine Appearance CLOUDY Urine pH 7.5 Urine Specific [place] 1.017 Urine Protein 1+ Urine Glucose (UA) NEG Urine Ketones NEG Urine Occult Blood 2+ Urine Nitrite NEG Urine Bilirubin NEG Urine Urobilinogen NEG Urine Leukocyte Esterase NEG Urine WBC (Auto) 1-5 /hpf Urine RBC (Auto) >30 /hpf Urine Hyaline Casts (Auto) 1-5 /lpf Urine Epithelial Cells (Auto) >30 /lpf Urine Bacteria (Auto) NEG Urine Opiates Screen NEG Urine Methadone, Qualitative NEG Urine Barbiturates NEG Urine Phencyclidine (PCP) Level NEG Ur Amphetamine/Methamphetamine NEG MDMA (Ecstasy) Screen NEG Urine Benzodiazepines Screen NEG Urine Cocaine Metabolite NEG Urine Marijuana (THC) POS Magnesium Level 1.6 mg/dl Test 08/27/17 23:14 08/28/17 07:29 D-Dimer 520 ug/L FEU Troponin I 0.879 ng/ml 0.868 ng/ml White Blood Count 13.22 K/uL Red Blood Count 4.41 M/uL Hemoglobin 13.8 g/dL Hematocrit 40.6 % Mean Corpuscular Volume 92.1 fL Mean Corpuscular Hemoglobin 31.3 pg Mean Corpuscular Hemoglobin Concent 34.0 g/dl Platelet Count 297 K/uL Mean Platelet Volume 10.3 fL Neutrophils (%) (Auto) 62.0 % Lymphocytes (%) (Auto) 27.7 % Monocytes (%) (Auto) 9.0 % Eosinophils (%) (Auto) 0.5 % Basophils (%) (Auto) 0.5 % Neutrophils # (Auto) 8.21 K/uL Lymphocytes # (Auto) 3.66 K/uL Monocytes # (Auto) 1.19 K/uL Eosinophils # (Auto) 0.06 K/uL Basophils # (Auto) 0.06 K/uL RDW Standard Deviation 44.1 fL RDW Coefficient of Variation 13.2 % Immature Granulocyte % (Auto) 0.3 % Immature Granulocyte # (Auto) 0.04 K/uL Prothrombin Time 9.8 SECONDS Prothromb Time International Ratio 0.9 Activated Partial Thromboplast Time 23.8 SECONDS Partial Thromboplastin Ratio 0.9 Sodium Level 137 mmol/L Potassium Level 3.5 mmol/L Chloride Level 104 mmol/L Carbon Dioxide Level 25 mmol/L Anion Gap 8.0 mmol/L Blood Urea Nitrogen 21 mg/dl Creatinine 0.82 mg/dl Est Creatinine Clear Calc Drug Dose 79.0 ml/min Estimated GFR () 96.0 Estimated GFR (Non- 82.9 BUN/Creatinine Ratio 25.7 Random Glucose 103 mg/dl Estimated Average Glucose 120 mg/dl Hemoglobin A1c 5.8 % Calcium Level 9.6 mg/dl Magnesium Level 2.6 mg/dl Total Bilirubin 0.4 mg/dl Aspartate Amino Transf (AST/SGOT) 17 U/L Alanine Aminotransferase (ALT/SGPT) 18 U/L Alkaline Phosphatase 63 U/L Total Protein 7.2 gm/dl Albumin 3.8 gm/dl Globulin 3.4 gm/dl Albumin/Globulin Ratio 1.1 Imaging: Chest x-ray did not demonstrate any acute cardiopulmonary disease. CT PE protocol did not demonstrate any pulmonary embolus. There were findings suggestive of emphysema. EKG: Initial EKG demonstrated sinus rhythm with perhaps mildly prolonged QT interval. More recent EKG performed this morning reveals sinus bradycardia with long QT interval. Telemetry reviewed: No arrhythmia Echocardiogram performed today suggests mildly reduced LV systolic function with wall motion abnormalities. Assessment & Plan 1. Elevated cardiac biomarkers: Patient has long history of elevated troponins. During her last admission she had notably elevated troponin. She underwent coronary angiography based on these numbers an abnormal EKGs but there was no evidence acute lesions or obstructive coronary disease. She did have some symptoms of chest discomfort at the time of her admission but this was in the setting of frequent emesis. I do not think that her current troponin levels are indicative of a significant change or recent infarct. I would not pursue any additional evaluation based on this laboratory result. 2. Stress cardiomyopathy: Patient has long history of stress cardiomyopathy. During her last admission she was also noted to have wall motion abnormalities and slightly reduced LV systolic function. She has normalized her ventricle in the interim. I think this represents a fairly typical hospital course for her. I do not think she warrants an ischemic evaluation. She appears well compensated currently on exam and by history. I think continued aggressive management of her blood pressure and continuation of her ARB and beta-blaine would be my recommendation. 3. Hypertension: Patient seems to have occasional episodes of high blood pressures. These tend to be in the setting of significant nausea and vomiting. How the 2 are related is unclear. She does see a hypertension specialist in [place] and is currently on clonidine patch. She was given an extra dose of amlodipine last evening. Blood pressure today appears to be quite good. 4. Valvular heart disease: Mild to moderate mitral regurgitation on echocardiogram. 5. Abnormal EKG: Patient is known to have abnormal EKGs on occasion. During her last hospitalization was markedly abnormal and prompted cardiac catheterization. There is no significant derangement of her ST segments on her EKGs during this hospitalization. However, she does appear to have a prolonged QT interval on today's EKG. I suspect this is mostly related to her cardiomyopathy. She was administered ondansetron which can cause some QT prolongation. Her electrolytes appear to be normal. I think I would avoid any QT prolonging agents, continue her on her beta-blaine and simply monitor on telemetry for the time being. She has not had symptoms of ventricular arrhythmias leading up to this evaluation.
--- NOTE | 2017-08-28 16:34 | Discharge Instructions ---
Discharge Instructions Date of Service Aug 28, 2017. Admission Reason for Admission: Elevated Troponin. Hypertensive Urgency, Malignant Discharge Discharge Diagnosis / Problem: stress cardiomyopathy and cannabis hyperemesis Discharge Goals Goal(s): Decrease discomfort, Diagnostic testing, Therapeutic intervention Activity Recommendations Activity Limitations: resume your previous activity . Instructions / Follow-Up Instructions / Follow-Up Ms. Eva pisano were admitted for a severe episode of nausea and vomiting which has been a chronic problem for you. Your use of cannabis/marijuana is a possible cause. We recommended not smoking for at least a month to see if your nausea/vomiting resolves as the effects of marijuana on your nausea/vomiting can last up to a month at least. However, as we discussed with you, it would be a good idea to have you see a reducing machine operator (GI/stomach doctor) to make sure a functional GI/motility disorder is not the cause. We are working on scheduling you an appointment with a doctor and our nurse navigator will contact you with an appointment. You were also found to have high cardiac enzymes again which you have had before and likely from your stress cardiomyopathy. However your EKG (electrical activity of heart) looked good and there was no significant concern based on ultrasound of your heart as well. Our 3d designer saw you and are comfortable keeping your medications the same and having you follow up with them after you leave the hospital. Please follow the following instructions: - Continue using your clonidine patch - Continue taking Aspirin 81mg daily - Continue taking Toprol XL 50mg twice a day, Losartan 50mg daily, Atorvastatin 40mg daily - Continue taking Sertraline as prescribed - Follow up with GI motility specialist as scheduled - Follow up with your primary care doctor in 3-4 days - Follow up with cardiology outpatient Current Hospital Diet Patient's current hospital diet: Regular Diet Discharge Diet Recommended Diet: Regular Diet, AHA Diet (Heart Healthy) Pending Studies Studies pending at discharge: no Laboratory Results Hemoglobin A1c Test 08/28/17 07:29 Range/Units Estimated Average Glucose 120 mg/dl Hemoglobin A1c 5.8 H 4.5-5.6 % Lipid Panel Test 06/21/17 03:47 Range/Units Triglycerides Level 101 0-150 mg/dl Cholesterol Level 144 0-200 mg/dl HDL Cholesterol 64 mg/dl Cholesterol/HDL Ratio 2.3 LDL Cholesterol, Calculated 60 mg/dl Work Instructions Return To Work: 1 day Medical Emergencies . Who to Call and When: Medical Emergencies: If at any time you feel your situation is an emergency, please call 911 immediately. . Non-Emergent Contact Non-Emergency issues call your: Primary Care Provider . . "Provider Documentation" section prepared by Tacho Vazquez. . VTE Core Measure Inpt VTE Proph given/why not?: SCD's
--- NOTE | 2017-08-28 16:39 | Progress Note ---
Progress Note Date of Service Aug 28, 2017. Progress Note Ms. Velasquez was evaluated in the hospital on 08/28/17 for a medical condition as a result of which she also missed work on 08/27/17. Please excuse her for missing work. Thank you. Sincerely, Tacho Vazquez MD
--- NOTE | 2017-08-28 19:06 | Discharge Summary ---
Discharge Summary Date of Service Aug 28, 2017. Discharge Summary Admission Date: Aug 27, 2017 at 20:44 Discharge Date: Aug 28, 2017 Discharge Disposition: Home Principal Diagnosis: stress cardiomyopathy; cyclic vomiting Problems/Secondary Diagnoses: Takotsubo/stress cardiomyopathy R - CATRACHITA Cyclic vomiting malignant hypertension prolonged QT HLD HLD Immunizations: Have You Had Influenza Vaccine: Unknown History of Tetanus Vaccine?: Unknown History of Pneumococcal: Unknown History of Hepatitis B Vaccine: Unknown Procedures: CT ANGIOGRAPHY OF THE CHEST, PULMONARY EMBOLUS PROTOCOL CLINICAL HISTORY: Elevated d-dimer. COMPARISON STUDY: Chest CT June 20, 2017 and chest radiograph August 27, 2017. TECHNIQUE: Patient was premedicated for an IV dye allergy. Following IV administration of 93 mL of Optiray-320, helical axial images of the chest were obtained utilizing the pulmonary embolus protocol. Maximal intensity projections and sagittal and coronal reformats were viewed on an independent 3D workstation. IV contrast was administered without complication. A dose lowering technique was utilized adhering to the principles of ALARA. CT DOSE: 209.24 mGy.cm FINDINGS: No pulmonary emboli are identified. There is no evidence for thoracic aortic dissection. The size of the heart is at the upper limits of normal. There is no pericardial effusion. No enlarged axillary, mediastinal or hilar lymph nodes are present. Central airways are patent. There is mild to moderate emphysema. No consolidation is identified. Dependent atelectasis is noted. No pneumothorax or pleural effusion is noted. No suspicious osseous lesions are noted. Upper abdomen is unremarkable. IMPRESSION: 1. No pulmonary emboli identified. 2. No acute intrathoracic findings. 3. Mild to moderate emphysema. CHEST ONE VIEW PORTABLE CLINICAL HISTORY: irretractable nausea and vomiting COMPARISON STUDY: 06/27/2017 FINDINGS: Old right rib fracture. Lungs are clear. Slight chronic basilar interstitial prominence. Heart top limits normal in size. Diaphragms are smooth. IMPRESSION: Mild prominence of pulmonary vasculature. Otherwise negative study. Consultations: cardiology - Dr. Holland Medication Reconciliation Continued Medications: Aspirin (Aspirin Chewable) 81 Mg Chew 81 MG PO DAILY Atorvastatin (Lipitor) 40 Mg Tab 40 MG PO HS, TAB Clonidine (Catapres-Tts) 0.1 Mg/24 Hr Dis 1 PATCH TD WK, PATCH Losartan Potassium (Cozaar) 50 Mg Tab 50 MG PO DAILY, TAB Metoprolol Succinate (Metoprolol Succinate ER) 50 Mg Tabcr 50 MG PO BID Multivitamin (Multivitamin) Tab 1 TAB PO DAILY, TAB Sertraline (Zoloft) 100 Mg Tab 100 MG PO QPM, TAB Discharge Exam Review of Systems: Constitutional: + sweats, No fever, No chills Respiratory: No shortness of breath Cardiovascular: No chest pain Abdomen: No pain, No nausea, No vomiting Genitourinary - Male: No dysuria Physical Exam: General Appearance: no apparent distress Eyes: normal inspection, sclerae normal Respiratory/Chest: lungs clear, normal breath sounds Cardiovascular: regular rate, rhythm, no murmur Abdomen / GI: normal bowel sounds, non tender, soft Extremities: no calf tenderness, no pedal edema 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: alert, oriented x 3 Skin: + diaphoresis Hospital Course 52 yo f with h/o of Takotsubo cardiomyopathy ( Jun 2017), hypertensive emergency, right CATRACHITA and cyclic vomiting who presented with a recurrent episode of cyclic vomiting, malignant hypertension and an increasing troponin level. Elevated troponin concerning for supply/ demand mismatch possibly secondary to malignant htn, ischemia vs vasospasm - tele obs - remained SR 60s-70s - ECHO - Normal LV size/wall thickness, SF. EF 40-45%. Grade I diastolic dysfunction. Normal RV size and function. Mild to moderate mitral regurgitation. Normal estimated PA and RA pressures. - Compared with prior study on 06/27/2017: Apical wall motion has resolved. Basal inferior, inferolateral and septal wall motion abnormalities are new. - Cath jun 2017: 1. Mild to moderate non-obstructive coronary artery disease - 40% mid RCA disease 2. Normal intracardiac filling pressures. 3. LV wall motion abnormalities consistent with Takotsubo's cardiomyopathy on TTE - troponin peak - 0.879 downtrended to 0.868 - pulmonary congestion on CXR - elevated DDimer 520 but chest CTA no PE - Given ASA 81 and 162 mg - BP improved after 5 mg of IV Lopressor and amlodipine 2.5 mg - consulted Cardiology - No chest pain or SOB with nausea and vomiting - Hx of elevated troponin and abnormal EKG but no significant ST changes likely secondary to malignant HTN - prolonged QT related to stress cardiomyopathy - avoid QT prolonging medications - HTN - clonidine patch continue and f/u with [facility] specialist - aggressive management - Continue BB and ARB - Normalized LV function and wall motion abnormality since last ECHO - f/u outpatient cyclic vomiting possibly secondary to hyperemesis cannabinoid syndrome - resolved - Ativan 0.25 mg SL for nausea q6h - educated on refraining from marijuana use for at least a month prolonged QTc but < 500 - Sertraline held - K 3.6, given 40meq PO -> 3.5 this AM - Mag 1.6- 2 G IV given - corrected to 2.6 HTN/HLD - Continued clonidine patch, Toprol XL bid 50 mg and Losartan 50 mg - Continued atorvastatin 40 mg DVT prophylaxis SCD FULL CODE Resident Physician Supervision Note: I interviewed and examined the patient. Discussed with Dr. Vazquez and agree with findings and plan as documented in the note. Any exceptions or clarifications are listed here: None Documented By: Souleymane Lobato feeling better now notes that she's stopped marijuana for 30 days without resolution of episodes vitals noted nad breathign unlabored no pallor or icterus nausea/vomiting/elevated BP/stress induced cardiomyopathy -?functional GI like cyclic vomiting vs abdominal migraines vs atypical cannabis hyperemesis Total Time Spent: Less than 30 minutes This includes examination of the patient, discharge planning, medication reconciliation, and communication with other providers. Discharge Instructions Please refer to the electronic Patient Visit Report (Discharge Instructions) for additional information. Additional Copies To Yashira Arizmendi C.R.N.P.
[2017-09-03] MEDS ORDERED: CLONIDINE HCL 0.1 MG/24 HR TRANSDERM SYS TD SCH (09:00)
== END 2017-08-28 17:41 | disposition home or self-care (01) ==
LOC: EDBD 14:45 → C.EDB 14:45 → C.2E 20:44 → ENRESERV 20:57
PROVIDERS: ADMIT Hospitalist; ATTEND Family Medicine
DX: I51.81 Takotsubo syndrome (principal); G43.A0 Cyclical vomiting, in migraine, not intractable; I10 Essential (primary) hypertension; F41.9 Anxiety disorder, unspecified; I34.0 Nonrheumatic mitral (valve) insufficiency; E78.5 Hyperlipidemia, unspecified; I25.10 Atherosclerotic heart disease of native coronary artery without angina pectoris; F12.10 Cannabis abuse, uncomplicated; Z87.891 Personal history of nicotine dependence; Z83.3 Family history of diabetes mellitus; Z82.49 Family history of ischemic heart disease and other diseases of the circulatory system; Z79.82 Long term (current) use of aspirin; Z79.899 Other long term (current) drug therapy; Z83.6 Family history of other diseases of the respiratory system; I25.2 Old myocardial infarction

== ENCOUNTER 2017-12-17 08:47 | Emergency (ER) | payer OTHER ==
[~2017-12-17] VITALS: Ht 170.2 cm; Wt 54.2 kg
[~2017-12-17 08:47] MED LIST changes: -CLON0.1T12 PO; -CZR50 PO; -LPT40 PO; +ONDA4TAB10 SL; +PROM25SU28 PR; +SERT-234 PO; -TPRSR50 PO; -ZLF/100 PO
[2017-12-17 09:02] VITALS: TEMP 36.4; Ht 170.2 cm; Wt 54.2 kg
[2017-12-17] MEDS ORDERED: ONDANSETRON 8 MG/54 ML D5W IV STA (09:30)
[2017-12-17] MEDS ORDERED: SODIUM CHLORIDE 0.9% 1000ML 1,000 ML IV STA (09:30)
[2017-12-17] MEDS ORDERED: METOPROLOL TARTRATE 1 MG/ML VIAL IV STA ×2 (09:47→10:39)
[2017-12-17 10:03] LABS: BASO % 0.4 %; BASO ABS # 0.04 K/uL (0-0.2); EOS % 0.2 %; EOS ABS # 0.02 K/uL (0-0.5); HEMATOCRIT 42.8 % (37-47); HEMOGLOBIN 14.8 g/dL (12.0-16.0); IG# 0.03 K/uL (0.00-0.02); LYMPH % 9.6 %; LYMPH ABS # 1.07 K/uL (1.2-3.4); MEAN CELL VOLUME 94.3 fL (80-100); MEAN CORPUSCULAR HEMOGLOBIN 32.6 pg (25-34); MEAN CORPUSCULAR HGB CONC 34.6 g/dl (32-36); MEAN PLATELET VOLUME 10.2 fL (7.4-10.4); MONO % 1.6 %; MONO ABS # 0.18 K/uL (0.11-0.59); NEUT % 87.9 %; NEUT ABS # 9.77 K/uL (1.4-6.5); PLATELET COUNT 335 K/uL (130-400); WHITE BLOOD COUNT 11.11 K/uL (4.8-10.8)
[2017-12-17 10:22] LABS: ALBUMIN 4.1 gm/dl (3.4-5.0); ALT/SGPT 24 U/L (12-78); AST/SGOT 24 U/L (15-37); BLOOD UREA NITROGEN 16 mg/dl (7-18); CALCIUM 9.5 mg/dl (8.5-10.1); CARBON DIOXIDE 23 mmol/L (21-32); CREATININE 0.74 mg/dl (0.60-1.20); GLUCOSE 159 mg/dl (70-99); LIPASE 128 U/L (73-393); POTASSIUM 3.6 mmol/L (3.5-5.1); SODIUM 144 mmol/L (136-145)
[2017-12-17 10:27] LABS: ALKALINE PHOSPHATASE 84 U/L (45-117)
[2017-12-17] MEDS ORDERED: CLONIDINE HCL 0.1 MG/24 HR TRANSDERM SYS TD STA (10:49)
[2017-12-17 12:01] VITALS: O2SAT 98
[2017-12-17] MEDS ORDERED: ONDA4TAB10 SL (12:44)
[2017-12-17 12:47] VITALS: BP 208/125; PULSE 67
--- NOTE | 2017-12-17 15:12 | EMERGENCY ROOM VISIT NOTE ---
History First contact with patient: 09:14 Chief Complaint: VOMITING Stated Complaint: VOMITING Nursing Triage Summary: Pt states she has been preparing for a Colonoscopy for a cancer screening and began to get"ill." She states she has been vomiting since 0530 this am. Reports being diaphoretic. Denies any pain or tenderness in the abdomen at this time. Pt states "my legs feel really weak." History of Present Illness The patient is a 52 year old female who presents to the Emergency Room with complaints of nausea, vomiting and diarrhea. The patient reports that she was preparing for a colonoscopy for this morning, using a new bowel prep that she has never used before. She is scheduled for 10:[address] Patten. The patient reports that she has had multiple episodes of vomiting and diarrhea, and feels dehydrated and dizzy. The patient denies any abdominal pain. Review of Systems HEENT: Denies visual problems, hearing loss, tinnitus. Denies difficulty swallowing or oral lesions. PULMONARY: Denies cough, shortness of breath, sputum production or hemoptysis. CARDIOVASCULAR: Denies chest pain, palpitations, dyspnea on exertion, orthopnea or peripheral edema. GASTROINTESTINAL: See HPI. GENITOURINARY: Denies dysuria, frequency, urgency or nocturia. NEUROLOGIC: Denies history of epilepsy, CVA, TIA or chronic headaches. MUSCULOSKELETAL: Denies history of joint tenderness/swelling. SKIN: Denies rashes or lesions. PSYCHIATRIC: Denies history of depression or mental illness. ENDOCRINE: Denies history of diabetes or thyroid disorders. Past Medical/Surgical History Medical Problems: (1) MP (acute kidney injury) (2) Anxiety (3) Atherosclerosis Nos (4) Chest pain (5) Chronic hypertension (6) Elevated troponin (7) Elevated troponin (8) Elevated troponin I level (9) Hypertension Nos (10) HYPERTENSIVE URGENCY (11) Hypertensive urgency, malignant (12) Hypokalemia (13) Hyponatremia (14) Intractable nausea and vomiting (15) Malignant essential hypertension (16) Marijuana dependence (17) Nausea & vomiting (18) Non-ST elevation myocardial infarction (NSTEMI) due to mismatch of myocardial oxygen supply and demand (19) Prolonged QT interval (20) Renal artery stenosis (21) Takotsubo cardiomyopathy (22) Uncontrolled hypertension Family History Cancer Diabetes mellitus Heart disease Hypertension Lung disease Social History Smoking Status: Current Every Day Smoker Alcohol Use: occasionally Drug Use: marijuana Marital Status: Housing Status: lives with family Occupation Status: employed Current/Historical Medications Scheduled Aspirin (Aspirin Chewable), 81 MG PO DAILY Atorvastatin (Lipitor), 40 MG PO HS Clonidine (Catapres-Tts), 1 PATCH TD WK Losartan Potassium (Cozaar), 50 MG PO DAILY Metoprolol Succinate (Metoprolol Succinate ER), 50 MG PO BID Multivitamin (Multivitamin), 1 TAB PO DAILY Ondasetron Odt (Zofran Odt), 4 MG SL Q6H Sertraline (Zoloft), 100 MG PO QPM Physical Exam Vital Signs Date Time Temp Pulse Resp B/P (MAP) Pulse Ox O2 Delivery O2 Flow Rate FiO2 12/17/17 12:47 67 16 208/125 12/17/17 12:16 202/110 12/17/17 12:14 183/128 12/17/17 12:01 61 15 200/118 98 12/17/17 11:46 64 13 205/114 98 12/17/17 11:30 64 15 194/86 98 Room Air 12/17/17 11:15 64 13 198/114 98 Room Air 12/17/17 11:04 62 204/120 12/17/17 11:03 58 16 204/120 98 Room Air 12/17/17 11:00 71 10 204/120 98 Room Air 12/17/17 10:45 62 12 198/118 98 Room Air 12/17/17 10:43 202/121 12/17/17 10:30 63 18 203/116 99 12/17/17 10:22 187/128 12/17/17 10:15 57 12 204/124 100 Room Air 12/17/17 10:02 65 20 201/131 100 Room Air 12/17/17 10:00 61 18 99 12/17/17 09:58 67 208/132 12/17/17 09:43 71 12/17/17 09:20 56 16 202/128 100 Room Air 12/17/17 09:02 36.4 66 18 195/104 96 Room Air Physical Exam CONSTITUTIONAL: Healthy and well nourished. Alert and oriented X 3 with positive affect. Patient appears in moderate discomfort from nausea. HEENT: Normocephalic, atraumatic. Pupils equal, round and reactive. No conjunctival injection or scleral icterus. OROPHARYNX: Mucous membranes are dry. NECK: Full active range of motion without discomfort. No JVD or carotid bruits. LYMPHATICS: No cervical chain adenopathy. RESPIRATORY: Clear to auscultation bilaterally with no wheezing, crackles, rhonchi or stridor. CARDIOVASCULAR: Regular rate and rhythm with no murmurs, rubs or gallops. GASTROINTESTINAL: Bowel sounds present in all quadrants. Patient has minimal generalized tenderness to palpation of the abdomen. Negative McBurney's point tenderness. Negative CVA tenderness. No abdominal rigidity, guarding or rebound. MUSCULOSKELETAL: Full range of motion of all joints without discomfort. INTEGUMENTARY: No rash or other significant dermatologic conditions noted. HEMATOLOGIC: No ecchymosis or petechiae noted. NEUROLOGIC: No focal neurologic deficits noted. Medical Decision & Procedures Laboratory Results 12/17/17 09:45 Red Blood Count 4.54, Mean Corpuscular Volume 94.3, Mean Corpuscular Hemoglobin 32.6, Mean Corpuscular Hemoglobin Concent 34.6, Mean Platelet Volume 10.2, Neutrophils (%) (Auto) 87.9, Lymphocytes (%) (Auto) 9.6, Monocytes (%) (Auto) 1.6, Eosinophils (%) (Auto) 0.2, Basophils (%) (Auto) 0.4, Neutrophils # (Auto) 9.77, Lymphocytes # (Auto) 1.07, Monocytes # (Auto) 0.18, Eosinophils # (Auto) 0.02, Basophils # (Auto) 0.04 12/17/17 09:45 Test 12/17/17 09:45 12/17/17 11:00 White Blood Count 11.11 K/uL (4.8-10.8) Red Blood Count 4.54 M/uL (4.2-5.4) Hemoglobin 14.8 g/dL (12.0-16.0) Hematocrit 42.8 % (37-47) Mean Corpuscular Volume 94.3 fL (80-100) Mean Corpuscular Hemoglobin 32.6 pg (25-34) Mean Corpuscular Hemoglobin Concent 34.6 g/dl (32-36) Platelet Count 335 K/uL (130-400) Mean Platelet Volume 10.2 fL (7.4-10.4) Neutrophils (%) (Auto) 87.9 % Lymphocytes (%) (Auto) 9.6 % Monocytes (%) (Auto) 1.6 % Eosinophils (%) (Auto) 0.2 % Basophils (%) (Auto) 0.4 % Neutrophils # (Auto) 9.77 K/uL (1.4-6.5) Lymphocytes # (Auto) 1.07 K/uL (1.2-3.4) Monocytes # (Auto) 0.18 K/uL (0.11-0.59) Eosinophils # (Auto) 0.02 K/uL (0-0.5) Basophils # (Auto) 0.04 K/uL (0-0.2) RDW Standard Deviation 45.0 fL (36.4-46.3) RDW Coefficient of Variation 13.0 % (11.5-14.5) Immature Granulocyte % (Auto) 0.3 % Immature Granulocyte # (Auto) 0.03 K/uL (0.00-0.02) Anion Gap 8.0 mmol/L (3-11) Est Creatinine Clear Calc Drug Dose 77.0 ml/min Estimated GFR () 108.7 Estimated GFR (Non- 93.8 BUN/Creatinine Ratio 21.0 (10-20) Calcium Level 9.5 mg/dl (8.5-10.1) Total Bilirubin 0.3 mg/dl (0.2-1) Direct Bilirubin < 0.1 mg/dl (0-0.2) Aspartate Amino Transf (AST/SGOT) 24 U/L (15-37) Alanine Aminotransferase (ALT/SGPT) 24 U/L (12-78) Alkaline Phosphatase 84 U/L (45-117) Troponin I < 0.015 ng/ml (0-0.045) Total Protein 8.0 gm/dl (6.4-8.2) Albumin 4.1 gm/dl (3.4-5.0) Lipase 128 U/L (73-393) Urine Color YELLOW Urine Appearance CLEAR (CLEAR) Urine pH 7.5 (4.5-7.5) Urine Specific [place] 1.016 (1.000-1.030) Urine Protein TRACE (NEG) Urine Glucose (UA) NEG (NEG) Urine Ketones NEG (NEG) Urine Occult Blood 1+ (NEG) Urine Nitrite NEG (NEG) Urine Bilirubin NEG (NEG) Urine Urobilinogen NEG (NEG) Urine Leukocyte Esterase NEG (NEG) Urine WBC (Auto) 0 /hpf (0-5) Urine RBC (Auto) 5-10 /hpf (0-4) Urine Hyaline Casts (Auto) 0 /lpf (0-5) Urine Epithelial Cells (Auto) 10-20 /lpf (0-5) Urine Bacteria (Auto) NEG (NEG) The above labs were reviewed and were grossly normal. Medications Administered Medications (Trade) Dose Ordered Sig/Yeimy Route Start Time Stop Time Status Last Admin Dose Admin Sodium Chloride 1,000 ml @ 999 mls/hr Q1H1M STAT IV 12/17/17 09:30 12/17/17 10:30 DC 12/17/17 09:52 999 MLS/HR Ondansetron HCl (Zofran 8mg Iv) 8 mg NOW STAT IV 12/17/17 09:30 12/17/17 09:32 DC 12/17/17 09:58 8 MG Metoprolol Tartrate (Lopressor Iv) 5 mg NOW STAT IV 12/17/17 09:47 12/17/17 09:48 DC 12/17/17 09:58 5 MG Metoprolol Tartrate (Lopressor Iv) 5 mg NOW STAT IV 12/17/17 10:39 12/17/17 10:40 DC 12/17/17 11:04 5 MG Clonidine HCl (Hujkwqvc-Hzb-1 0.1mg/24hr Patch) 1 patch ONE STAT TD 12/17/17 10:49 12/17/17 10:50 DC 12/17/17 11:04 1 PATCH ED Course Patient history and physical exam were performed. Nurse's notes were reviewed. Vital signs were reviewed, showing an elevated blood pressure 195/104. The patient is otherwise afebrile and not tachycardic. The patient reports a moderately nauseated. IV access was established, and labs were drawn. The patient was hydrated with a liter of normal saline, and administered IV Zofran for nausea. Labs were reviewed and were grossly normal. I did address the patient's blood pressure. I reviewed her medications, showing that she takes Toprol-XL and a clonidine patch. The patient reports that she was unable to take her Toprol this morning because of her symptoms. The patient was initially administered Lopressor 5 mg IVP without any change in blood pressure. An additional dose of Lopressor 5 mg IVP was administered, again with no change. Upon further questioning, the reports that the patient is due for a clonidine patch change today. A clonidine 0.1 mg per day patch was applied. The patient otherwise denied any headache, chest pain or shortness of breath. I also discussed the case with Dr. Elizabeth, ED attending physician, who suggested that the patient could follow-up outpatient with her PCP. Upon further discussion, the was irritated that they never received the same doctor at their family doctor's office in [place]. I did offer to call and speak with the office, and spoke with Dr. Killian, who indicated that she would have the office call the patient for a follow-up appointment before the weekend. I also called and spoke with Dr. Patten, gear technician, advising him of her ER evaluation. He requested that the patient reschedule her colonoscopy. Regarding the patient's nausea, vomiting and diarrhea, she was provided a prescription for Zofran ODT. She was given instructions on a clear diet over the next 24 hours until symptoms improve. She is welcome to return to the emergency department for any worsening symptoms, fever or other concerns. The patient was happy with plan of care, and voiced understanding of all discharge instructions. Medical Decision Patient presents with persistent hypertension. It appears that the patient is due for clonidine patch change, likely making her hypertension resistant to other treatment. The patient currently denies any other symptoms to warrant more extensive workup such as ECG and head CT. Her lab work is otherwise unremarkable without any electrolyte abnormalities. [place] Drug Monitoring Program Search Results: patient reviewed within database, no issues identified Medication Reconcilliation Current Medication List: was personally reviewed by me Blood Pressure Screening Patient's blood pressure: Elevated blood pressure Blood pressure disposition: Referred to PCP Impression Primary Impression: Nausea, vomiting, and diarrhea Additional Impression: Hypertension Nos Departure Information Dispostion Home / Self-Care Condition GOOD Prescriptions Ondasetron Odt (ZOFRAN ODT) 4 Mg Tab 4 MG SL Q6H for Nausea, #10 TAB Prov: Toni Champagne PA 12/17/17 Referrals Teena Killian DO (PCP) Forms HOME CARE DOCUMENTATION FORM, IMPORTANT VISIT INFORMATION Patient Instructions My [facility] [place] Additional Instructions Drink plenty of fluids to remain well-hydrated. Zofran ODT as needed to prevent nausea. Tylenol 1000 mg every 6 hrs if needed for pain/fever. Follow-up with your family doctor for further blood pressure management -their office will call you this afternoon for an appointment time. Return to the emergency department for any progressively worsening symptoms. FOR WORK: Please excuse from work today and tomorrow, 12/17-12/18/17. Problem Qualifiers
[2017-12-19] MEDS ORDERED: MULT-506 PO ×2 (15:25)
[2017-12-19] MEDS ORDERED: LOSA50TA54 PO ×2 (15:51)
[2017-12-19] MEDS ORDERED: CLON0.1D7 TD ×2 (15:51)
[2017-12-19] MEDS ORDERED: ATOR-24 PO ×2 (15:51)
[2017-12-19] MEDS ORDERED: TPRSR/50 PO ×2 (15:51)
[2017-12-20] MEDS ORDERED: TPRSR50 PO ×2 (15:38)
== END 2017-12-17 12:55 | disposition home or self-care (01) ==
LOC: C.EDB 08:48 → C.EDA 12:55
DX: R11.2 Nausea with vomiting, unspecified (principal); R19.7 Diarrhea, unspecified; I10 Essential (primary) hypertension; I25.2 Old myocardial infarction; Z79.82 Long term (current) use of aspirin; F17.200 Nicotine dependence, unspecified, uncomplicated

== ENCOUNTER 2017-12-19 18:05 | Inpatient (IN) | payer OTHER ==
[~2017-12-19] VITALS: Ht 170.2 cm; Wt 53.6 kg
[~2017-12-19 18:05] MED LIST changes: +ATOR-24 PO; +CLON0.1D7 TD; +LOSA50TA54 PO; +MULT-506 PO; +TPRSR/50 PO
[2017-12-19] MEDS ORDERED: ASPIRIN 324 MG CHEW PO STA (18:28)
[2017-12-19] MEDS ORDERED: NITROGLYCERIN 0.4 MG SL PER TAB CHARGE SL STA (18:28)
--- NOTE | 2017-12-19 18:38 | DIAGNOSTIC IMAGING REPORT ---
CHEST ONE VIEW PORTABLE CLINICAL HISTORY: Atypical chest pain COMPARISON STUDY: 11/21/2017 FINDINGS: The cardiac and mediastinal contours are normal. There is no evidence of focal pulmonary consolidation. There is no evidence of failure. No pleural effusions are visualized.[ There is an old right seventh rib fracture. IMPRESSION: No active disease in the chest. Electronically signed by: Michael Stewart M.D. 12/19/2017 6:36 PM Dictated Date/Time: 12/19/2017 6:36 PM
[2017-12-19] MEDS ORDERED: ONDANSETRON INJ 2 MG/ML 2 ML VIAL ONE (18:41)
[2017-12-19] MEDS ORDERED: ONDA4TAB46 SL ×2 (19:12)
[2017-12-19 19:21] LABS: BASO % 0.5 %; BASO ABS # 0.05 K/uL (0-0.2); EOS % 0.1 %; EOS ABS # 0.01 K/uL (0-0.5); HEMATOCRIT 38.5 % (37-47); HEMOGLOBIN 13.7 g/dL (12.0-16.0); IG# 0.02 K/uL (0.00-0.02); LYMPH % 12.6 %; LYMPH ABS # 1.26 K/uL (1.2-3.4); MEAN CELL VOLUME 91.9 fL (80-100); MEAN CORPUSCULAR HEMOGLOBIN 32.7 pg (25-34); MEAN CORPUSCULAR HGB CONC 35.6 g/dl (32-36); MEAN PLATELET VOLUME 10.3 fL (7.4-10.4); MONO % 1.8 %; MONO ABS # 0.18 K/uL (0.11-0.59); NEUT % 84.8 %; PLATELET COUNT 316 K/uL (130-400); RED CELL DISTRIBUTION WIDTH CV 12.7 % (11.5-14.5); WHITE BLOOD COUNT 10.02 K/uL (4.8-10.8)
[2017-12-19 19:34] LABS: INR 0.9 (0.9-1.1)
[2017-12-19 19:42] LABS: BLOOD UREA NITROGEN 13 mg/dl (7-18); CALCIUM 9.4 mg/dl (8.5-10.1); CARBON DIOXIDE 27 mmol/L (21-32); CREATININE 0.67 mg/dl (0.60-1.20); GLUCOSE 136 mg/dl (70-99); POTASSIUM 3.3 mmol/L (3.5-5.1); SODIUM 139 mmol/L (136-145)
[2017-12-19] MEDS ORDERED: ACETAMINOPHEN 325 MG TAB PO STA (19:46)
--- NOTE | 2017-12-19 20:05 | DIAGNOSTIC IMAGING REPORT ---
ABDOMEN 2 VIEWS CLINICAL HISTORY: Abdominal pain COMPARISON STUDY: Chest x-ray dated 12/19/2017 FINDINGS: No free air is visualized. There are surgical clips in the right lower quadrant, possibly secondary to a prior appendectomy. There are no transition zones indicate bowel obstruction. There is scattered stool the colon. There are no calcifications suspicious for renal calculi. IMPRESSION: No evidence of bowel obstruction. No evidence of free air. Electronically signed by: Michael Stewart M.D. 12/19/2017 8:03 PM Dictated Date/Time: 12/19/2017 8:02 PM
[2017-12-19] MEDS ORDERED: LABETALOL HCL IV 5 MG/ML 20ML IV STA (20:14)
--- NOTE | 2017-12-19 21:12 | History and Physical ---
History & Physical Date & Time of Service: December 19, 2017 at 21:12 Chief Complaint: High Blood Pressure (225/120) Primary Care Physician: Teena Killian DO History of Present Illness Source: patient, hospital records This is a 52 yo f with a history of resistant HTN, right CATRACHITA, cyclic vomiting , takotsubo cardiomyopathy and persistently elevated troponin that is presenting to us after another episode of severe N&V. This am the patient started with her typical episodes of N&V which includes elevated BP as well as diaphoresis. She also noted chest pain which was substernal and nonradiating which she has had in the past with these episodes. What was new for her was an extension of weakness/ numbness and tingling in the bilat LE with the onset of the episode and resolved after approx an hour. She has been following with her hypertensive physician from [place] and Dr Oscar for her hypertension. Approx 2 days prior her metoprolol was stopped by her PCP for having low blood pressure in the office. Per the patient in the office her bp was in the 80s systolic but she was asymptomatic. The chest pain resolved after NTG x 3 and during the exam the patient was not c/o chest pain.The patient has been admitted > 10 times in the past year for her htn and chest pain however she has not been evaluated here since aug 2017. She continues to use marijuana despite cyclical vomiting and notes she smokes approx 1 gram over 2-3 days. In the ED the chest pain resolved with NTG however no improvement in her BP. She was given Labetalol as well other agents without improvement in bp. As the patient developed chest pain with the episode of elevated BP concern for hypertensive emergency and patient was admitted for further evaluation. Past Medical/Surgical History Medical Problems: (1) Acute gastritis (2) MP (acute kidney injury) (3) Anemia (4) Anemia (5) Anxiety (6) Atherosclerosis Nos (7) Cardiomyopathy (8) Chest pain (9) Chronic hypertension (10) Congestive heart failure, acute (11) Dehydration (12) Dehydration (13) Diarrhea (14) Elevated morning serum cortisol level (15) Elevated troponin (16) Elevated troponin (17) Elevated troponin I level (18) HTN (hypertension) (19) Hypertension (20) Hypertension (21) Hypertension Nos (22) Hypertensive emergency (23) Hypertensive emergency (24) Hypertensive emergency (25) Hypertensive emergency (26) Hypertensive emergency without congestive heart failure (27) HYPERTENSIVE URGENCY (28) Hypertensive urgency, malignant (29) Hypokalemia (30) Hyponatremia (31) Hypotension (32) Hypotension (33) Intractable nausea and vomiting (34) Malignant essential hypertension (35) Malignant hypertension (36) Marijuana dependence (37) Nausea & vomiting (38) Nausea and vomiting (39) Nausea and vomiting (40) Nausea, vomiting, and diarrhea (41) Nausea, vomiting, and diarrhea (42) Non-ST elevation myocardial infarction (NSTEMI) due to mismatch of myocardial oxygen supply and demand (43) NSTEMI (non-ST elevated myocardial infarction) (44) Precordial chest pain (45) Prolonged QT interval (46) Renal artery stenosis (47) Takotsubo cardiomyopathy (48) Uncontrolled hypertension (49) Vomiting Family History Cancer Diabetes mellitus Heart disease Hypertension Lung disease Social History Smoking Status: Former Smoker Smokeless Tobacco Use: No Alcohol Use: none Drug Use: marijuana Marital Status: Housing status: lives with family Occupational Status: employed Immunizations History of Influenza Vaccine: Unknown History of Tetanus Vaccine?: Unknown History of Pneumococcal: Unknown History of Hepatitis B Vaccine: Unknown Allergies Coded Allergies: Doxycycline (Verified Allergy, Unknown, rash, 12/17/17) Iodinated Diagnostic Agents (Verified Allergy, Unknown, `, 12/17/17) Latex1 -Allergic Contact Dermititis (Verified Allergy, Unknown, RASH, 12/17) Meperidine (Verified Allergy, Unknown, HIVES, VOMITING, 12/17/17) Prochlorperazine (Verified Allergy, Unknown, ., 12/17/17) [place] (Verified Allergy, Unknown, HIVES, 12/17/17) Tomato (Verified Allergy, Unknown, HIVES, 12/17/17) Uncoded Allergies: Hernandez Beans (Allergy, Mild, HIVES, 12/10/17) Home Medications Scheduled Aspirin (Aspirin Chewable), 81 MG PO DAILY Atorvastatin (Lipitor), 40 MG PO HS Clonidine (Catapres-Tts), 1 PATCH TD WK Losartan Potassium (Cozaar), 50 MG PO DAILY Metoprolol Succinate (Metoprolol Succinate ER), 50 MG PO DAILY Multivitamin (Multivitamin), 1 TAB PO DAILY Sertraline (Zoloft), 100 MG PO QPM Scheduled PRN Ondansetron Hcl (Zofran), 4 MG SL Q6 PRN for Nausea Review of Systems Constitutional: + sweats, No fever, No chills Eyes: No worsening of vision ENT: No hearing loss Respiratory: No cough, No sputum, No shortness of breath, No dyspnea on exertion, No dyspnea at rest, No hemoptysis Cardiovascular: + chest pain, No palpitations Abdomen: + nausea, + vomiting, No pain, No diarrhea, No constipation Musculoskeletal: No joint pain, No muscle pain Genitourinary - Female: No dysuria Neurologic: + weakness, + numbness/tingling, No balance problems Psychiatric: No depression symptoms, No anxiety Endocrine: No fatigue Hematologic / Lymphatic: No abnormal bleeding/bruising Integumentary: No rash Physical Exam Vital Signs Date Time Temp Pulse Resp B/P (MAP) Pulse Ox O2 Delivery O2 Flow Rate FiO2 12/19/17 20:48 76 14 219/129 98 Room Air 12/19/17 20:23 193/108 12/19/17 20:20 70 201/105 12/19/17 19:55 65 214/118 12/19/17 19:30 77 14 229/123 12/19/17 18:52 66 12/19/17 18:14 36.7 85 18 215/136 99 Room Air General Appearance: no apparent distress Head: normocephalic, atraumatic Eyes: normal inspection, PERRL, EOMI ENT: normal ENT inspection Neck: supple Respiratory/Chest: normal breath sounds, no respiratory distress, no accessory muscle use Cardiovascular: regular rate, rhythm, no JVD, no murmur, normal peripheral pulses Abdomen/GI: normal bowel sounds, non tender, soft Back: normal inspection, no CVA tenderness, no muscle spasm, normal range of motion Extremities/Musculoskelatal: normal inspection, no calf tenderness, no pedal edema, normal range of motion Neurologic/Psych: alert, normal mood/affect, oriented x 3 Skin: normal color, warm/dry, no rash Lymphatic: no adenopathy Diagnostics Laboratory Results Results Past 24 Hours Test 12/19/17 18:50 Range/Units White Blood Count 10.02 4.8-10.8 K/uL Red Blood Count 4.19 4.2-5.4 M/uL Hemoglobin 13.7 12.0-16.0 g/dL Hematocrit 38.5 37-47 % Mean Corpuscular Volume 91.9 80-100 fL Mean Corpuscular Hemoglobin 32.7 25-34 pg Mean Corpuscular Hemoglobin Concent 35.6 32-36 g/dl Platelet Count 316 130-400 K/uL Mean Platelet Volume 10.3 7.4-10.4 fL Neutrophils (%) (Auto) 84.8 % Lymphocytes (%) (Auto) 12.6 % Monocytes (%) (Auto) 1.8 % Eosinophils (%) (Auto) 0.1 % Basophils (%) (Auto) 0.5 % Neutrophils # (Auto) 8.50 1.4-6.5 K/uL Lymphocytes # (Auto) 1.26 1.2-3.4 K/uL Monocytes # (Auto) 0.18 0.11-0.59 K/uL Eosinophils # (Auto) 0.01 0-0.5 K/uL Basophils # (Auto) 0.05 0-0.2 K/uL RDW Standard Deviation 43.0 36.4-46.3 fL RDW Coefficient of Variation 12.7 11.5-14.5 % Immature Granulocyte % (Auto) 0.2 % Immature Granulocyte # (Auto) 0.02 0.00-0.02 K/uL Prothrombin Time 9.9 9.0-12.0 SECONDS Prothromb Time International Ratio 0.9 0.9-1.1 Activated Partial Thromboplast Time 25.0 21.0-31.0 SECONDS Partial Thromboplastin Ratio 1.0 Sodium Level 139 136-145 mmol/L Potassium Level 3.3 3.5-5.1 mmol/L Chloride Level 105 98-107 mmol/L Carbon Dioxide Level 27 21-32 mmol/L Anion Gap 7.0 3-11 mmol/L Blood Urea Nitrogen 13 7-18 mg/dl Creatinine 0.67 0.60-1.20 mg/dl Estimated GFR () 118.0 Estimated GFR (Non- 101.8 BUN/Creatinine Ratio 19.5 10-20 Random Glucose 136 70-99 mg/dl Calcium Level 9.4 8.5-10.1 mg/dl Troponin I 0.034 0-0.045 ng/ml Diagnostic Radiology [~ rep ct add3]] ABDOMEN 2 VIEWS CLINICAL HISTORY: Abdominal pain COMPARISON STUDY: Chest x-ray dated 12/19/2017 FINDINGS: No free air is visualized. There are surgical clips in the right lower quadrant, possibly secondary to a prior appendectomy. There are no transition zones indicate bowel obstruction. There is scattered stool the colon. There are no calcifications suspicious for renal calculi. IMPRESSION: No evidence of bowel obstruction. No evidence of free air. [~ rep ct add3]] CHEST ONE VIEW PORTABLE CLINICAL HISTORY: Atypical chest pain COMPARISON STUDY: 11/21/2017 FINDINGS: The cardiac and mediastinal contours are normal. There is no evidence of focal pulmonary consolidation. There is no evidence of failure. No pleural effusions are visualized.[ There is an old right seventh rib fracture. IMPRESSION: No active disease in the chest. EKG HR 60, QTc 428 Unusual P axis, possible ectopic atrial rhythm Left axis deviation Abnormal ECG When compared with ECG of 17-DEC-2017 09:18, Ectopic atrial rhythm has replaced Sinus rhythm Impression Assessment and Plan This is a 52 yo f with a h/o hypertensive emergency presenting to us with chest pain and systolic > 200 poorly responding to medical intervention Chest pain secondary to hypertensive emergency -tele admission - Lopressor q6h for bp control prn for systolic > 180, could consider drip if continues to remain nonresponsive to interventions however will defer at this time - PO dose of lopressor given - Consult Cardio - repeat troponin - EKG in am - Will defer decision for echo to am team unless troponin were to elevate on repeat Echo Aug 2017 * 1. Normal LV size. Normal LV wall thickness. * 2. Normal LV systolic function. LVEF 40-45%. Akinetic basal inferior, inferolateral and septal wright. Grade I diastolic dysfunction. * 3. Normal RV size and function. * 4. Mild to moderate mitral regurgitation. * 5. Normal estimated PA and RA pressures. * 6. Compared with prior study on 06/27/2017: Apical wall motion has resolved. Basal inferior, inferolateral and septal wall motion abnormalities are new. - Most recent Cardiac cath - 2017 Nove - LAD- 20% focal proximal and mid segment narrowing; high small 1st diagonal with 60% ostial stenosis - RCA- Dominant, diffuse 40% mid segment disease, 20-30% distal segment disease, luminal irregularities HTN/HLD - Continue her home medications of clonidine patch, losartan 50 mg and Metoprolol 50 mg bid ( restarted) - continue ASA 81 mg daily - Atorvastatin 40 mg PM Anxiety - continue sertraline 100 mg PM DVT Prophylaxis heparin bid Full Code Attending addendum: I have physically seen this patient, have supervised the medical residents activities, and agree with the H&P unless as otherwise noted. Assessment and Plan: Hypertensive urgency/recent trial off of metoprolol due to low blood pressure-- The patient will be admitted to telemetry for serial cardiac enzymes, serial EKG's, cardiac rhythm monitoring and a 2-D echocardiogram with Dopplers. Continue clonidine patch TTS1 Resume metoprolol tartrate 50 mg p.o. twice daily, first dose now. As needed IV Lopressor for systolic greater than 180. Continue aspirin 81 mg daily. May be an anxiety component to this as well, and may benefit from IV Ativan overnight. Hyperlipidemia-- Continue atorvastatin 40 mg in evening. Anxiety-- Continue sertraline 100 mg p.o. every evening. Have available Ativan IV as needed Advanced Directives Existing Advance Directive: No Existing Living Will: No Existing Power of [place]: No Resuscitation Status full VTE Prophylaxis Will order VTE Prophylaxis: Yes Social Service Consult None Apply Note Total Time: Critical Care 30 - 74 minutes Additional Copies To Teena Killian DO
[2017-12-19] MEDS ORDERED: METOPROLOL TARTRATE 50 MG TAB PO STA (21:13)
[2017-12-19] MEDS ORDERED: ONDANSETRON 4 MG TAB PO PRN (21:15)
[2017-12-19] MEDS ORDERED: MAGNESIUM HYDROXIDE SUSP 30 ML UDC PO PRN ×2 (21:15→22:00)
[2017-12-19] MEDS ORDERED: ONDANSETRON INJ 2 MG/ML 2 ML VIAL IV PRN ×2 (21:15→22:00)
[2017-12-19] MEDS ORDERED: NITROGLYCERIN 0.4 MG SL PER TAB CHARGE SL PRN ×2 (21:15→22:00)
[2017-12-19] MEDS ORDERED: POLYETHYLENE (MIRALAX) 17 GM PACK PO PRN ×2 (21:15→22:00)
[2017-12-19] MEDS ORDERED: ACETAMINOPHEN 325 MG TAB PO PRN ×2 (21:15→22:00)
[2017-12-19] MEDS ORDERED: ALUMINUM/MAGNESIUM/SIMETH (MAALOX MAX) 30 ML UDC PO PRN ×2 (21:15→22:00)
[2017-12-19] MEDS ORDERED: METOPROLOL TARTRATE 50 MG TAB ONE (21:24)
[2017-12-19] MEDS ORDERED: METOPROLOL TARTRATE 1 MG/ML VIAL ONE (21:24)
[2017-12-19 21:55] VITALS: BP 213/108; PULSE 70; TEMP 37.2; O2SAT 98; Ht 170.2 cm; Wt 53.6 kg
[2017-12-19] MEDS ORDERED: HydrALAZINE HCL 20 MG/ML VIAL IM STA (22:37)
[2017-12-19] MEDS ORDERED: HydrALAZINE HCL 20 MG/ML VIAL ONE (22:43)
[2017-12-19 23:11] VITALS: BP 203/106
[2017-12-19 23:12] VITALS: BP 199/74
[2017-12-19] MEDS ORDERED: LORAZEPAM 2 MG/ML 1 ML VIAL IV STA (23:20)
[2017-12-19 23:42] VITALS: BP 197/101; PULSE 71; TEMP 37.1; O2SAT 97
[2017-12-20] VITALS (8 sets, daily range): BP systolic 106–191; BP diastolic 62–91; PULSE 57–79; TEMP 36.8–36.9; O2SAT 96–100
--- NOTE | 2017-12-20 00:10 | EMERGENCY ROOM VISIT NOTE ---
History Report prepared by Andres: Rian Magaña Under the Supervision of: Dr. Armando Levy M.D. First contact with patient: 18:18 Chief Complaint: HYPERTENSION Stated Complaint: HIGH BLOOD PRESSURE (225/120) History of Present Illness The patient is a 52 year old female with a history of hypertension who presents to the Emergency Room with complaints of persistent high blood pressure that started earlier today. The patient has been seen here multiple times for episodes of hypertension and vomiting, including when she was here 2 days ago when she was prepping for a colonoscopy. She notes that she started vomiting around 4 and a half hours ago while she was at work, and she continued to vomit since then. The patient says that she is not currently having chemo and is not on any new medications. She notes that her primary care physician had her stop taking Metoprolol at night, and is now only taking it in the morning. The patient was told to do this because her blood pressure was low (around 88/50s) yesterday. She says that she is still on her Clonidine patch. The patient states that she takes Lopressor, Atorvastatin, and Losartan for her blood pressure, and she took her medications this morning, so she has not missed any doses today. The patient states that she still feels nauseated and a bit dizzy, with some blurry vision. She adds that she has a bit of numbness and tingling in her legs, and she has some chest heaviness, which she rates as a 4 out of 10 in severity. The patient states that the heaviness started only "a little while ago". The patient notes that she has some mild abdominal pain mostly from the vomiting, and she feels a bit out of breath. She says that she has not had a bowel movement since yesterday. The patient denies any diarrhea, or black or bloody stools. The patient is not sure if she has had a fever. She does have a history of a heart attack. Source of History: patient, spouse/significant other Onset: Earlier today Position: other (global) Symptom Intensity: 4/10 chest heaviness Quality: other (high blood pressure) Timing: other (persistent) Associated Symptoms: + chest pain, + SOB, + nausea, + vomiting, + abdominal pain, + numbness (and tingling lower extremities), No melena, No hematochezia, No diarrhea Note: Associated symptoms: Dizzy, blurry vision. Review of Systems See HPI for pertinent positives & negatives. A total of 10 systems reviewed and were otherwise negative. Past Medical & Surgical Medical Problems: (1) MP (acute kidney injury) (2) Anxiety (3) Atherosclerosis Nos (4) Chest pain (5) Chronic hypertension (6) Elevated troponin (7) Elevated troponin (8) Elevated troponin I level (9) Hypertension Nos (10) Hypertensive emergency without congestive heart failure (11) HYPERTENSIVE URGENCY (12) Hypertensive urgency, malignant (13) Hypokalemia (14) Hyponatremia (15) Intractable nausea and vomiting (16) Malignant essential hypertension (17) Marijuana dependence (18) Nausea & vomiting (19) Non-ST elevation myocardial infarction (NSTEMI) due to mismatch of myocardial oxygen supply and demand (20) Prolonged QT interval (21) Renal artery stenosis (22) Takotsubo cardiomyopathy (23) Uncontrolled hypertension Family History Cancer Diabetes mellitus Heart disease Hypertension Lung disease Social History Smoking Status: Former Smoker Alcohol Use: occasionally Drug Use: marijuana Marital Status: Housing Status: lives with family Occupation Status: employed Current/Historical Medications Scheduled Aspirin (Aspirin Chewable), 81 MG PO DAILY Atorvastatin (Lipitor), 40 MG PO HS Clonidine (Catapres-Tts), 1 PATCH TD WK Losartan Potassium (Cozaar), 50 MG PO DAILY Metoprolol Succinate (Metoprolol Succinate ER), 50 MG PO DAILY Multivitamin (Multivitamin), 1 TAB PO DAILY Sertraline (Zoloft), 100 MG PO QPM Scheduled PRN Ondansetron Hcl (Zofran), 4 MG SL Q6 PRN for Nausea Allergies Coded Allergies: Doxycycline (Verified Allergy, Unknown, rash, 12/17/17) Iodinated Diagnostic Agents (Verified Allergy, Unknown, `, 12/17/17) Latex1 -Allergic Contact Dermititis (Verified Allergy, Unknown, RASH, 12/17) Meperidine (Verified Allergy, Unknown, HIVES, VOMITING, 12/17/17) Prochlorperazine (Verified Allergy, Unknown, ., 12/17/17) Stanberry (Verified Allergy, Unknown, HIVES, 12/17/17) Tomato (Verified Allergy, Unknown, HIVES, 12/17/17) Uncoded Allergies: Hernandez Beans (Allergy, Mild, HIVES, 12/10/17) Physical Exam Vital Signs Date Time Temp Pulse Resp B/P (MAP) Pulse Ox O2 Delivery O2 Flow Rate FiO2 12/19/17 20:48 76 14 219/129 98 Room Air 12/19/17 20:23 193/108 12/19/17 20:20 70 201/105 12/19/17 19:55 65 214/118 12/19/17 19:30 77 14 229/123 12/19/17 18:52 66 12/19/17 18:14 36.7 85 18 215/136 99 Room Air Physical Exam Constitutional: Vital signs reviewed. Eyes: Pupils are equal round reactive to light. Conjunctiva are noninjected. ENT: Pharynx is clear without erythema or exudate. Mucous membranes are dry. Neck supple without meningeal signs. Respiratory: Clear to auscultation bilaterally. Breath sounds are equal bilaterally. Cardiovascular: Regular rate and rhythm. No rubs or gallops. GI: Soft, nondistended and nontender. Bowel sounds are present. Musculoskeletal: No peripheral edema. No lower extremity tenderness. Integumentary: No cyanosis. Neurological: The patient is awake and alert. No focal deficits. Psychiatric: Normal affect. Medical Decision & Procedures ER Provider Diagnostic Interpretation: X-ray results as stated below per interpretation by me and the radiologist: CHEST ONE VIEW PORTABLE CLINICAL HISTORY: Atypical chest pain COMPARISON STUDY: 11/21/2017 FINDINGS: The cardiac and mediastinal contours are normal. There is no evidence of focal pulmonary consolidation. There is no evidence of failure. No pleural effusions are visualized.[ There is an old right seventh rib fracture. IMPRESSION: No active disease in the chest. Electronically signed by: Michael Stewart M.D. 12/19/2017 6:36 PM Dictated Date/Time: 12/19/2017 6:36 PM ABDOMEN 2 VIEWS CLINICAL HISTORY: Abdominal pain COMPARISON STUDY: Chest x-ray dated 12/19/2017 FINDINGS: No free air is visualized. There are surgical clips in the right lower quadrant, possibly secondary to a prior appendectomy. There are no transition zones indicate bowel obstruction. There is scattered stool the colon. There are no calcifications suspicious for renal calculi. IMPRESSION: No evidence of bowel obstruction. No evidence of free air. Electronically signed by: Michael Stewart M.D. 12/19/2017 8:03 PM Dictated Date/Time: 12/19/2017 8:02 PM Laboratory Results 12/19/17 18:50 Red Blood Count 4.19, Mean Corpuscular Volume 91.9, Mean Corpuscular Hemoglobin 32.7, Mean Corpuscular Hemoglobin Concent 35.6, Mean Platelet Volume 10.3, Neutrophils (%) (Auto) 84.8, Lymphocytes (%) (Auto) 12.6, Monocytes (%) (Auto) 1.8, Eosinophils (%) (Auto) 0.1, Basophils (%) (Auto) 0.5, Neutrophils # (Auto) 8.50, Lymphocytes # (Auto) 1.26, Monocytes # (Auto) 0.18, Eosinophils # (Auto) 0.01, Basophils # (Auto) 0.05 12/19/17 18:50 Test 12/19/17 18:50 White Blood Count 10.02 K/uL (4.8-10.8) Red Blood Count 4.19 M/uL (4.2-5.4) Hemoglobin 13.7 g/dL (12.0-16.0) Hematocrit 38.5 % (37-47) Mean Corpuscular Volume 91.9 fL (80-100) Mean Corpuscular Hemoglobin 32.7 pg (25-34) Mean Corpuscular Hemoglobin Concent 35.6 g/dl (32-36) Platelet Count 316 K/uL (130-400) Mean Platelet Volume 10.3 fL (7.4-10.4) Neutrophils (%) (Auto) 84.8 % Lymphocytes (%) (Auto) 12.6 % Monocytes (%) (Auto) 1.8 % Eosinophils (%) (Auto) 0.1 % Basophils (%) (Auto) 0.5 % Neutrophils # (Auto) 8.50 K/uL (1.4-6.5) Lymphocytes # (Auto) 1.26 K/uL (1.2-3.4) Monocytes # (Auto) 0.18 K/uL (0.11-0.59) Eosinophils # (Auto) 0.01 K/uL (0-0.5) Basophils # (Auto) 0.05 K/uL (0-0.2) RDW Standard Deviation 43.0 fL (36.4-46.3) RDW Coefficient of Variation 12.7 % (11.5-14.5) Immature Granulocyte % (Auto) 0.2 % Immature Granulocyte # (Auto) 0.02 K/uL (0.00-0.02) Prothrombin Time 9.9 SECONDS (9.0-12.0) Prothromb Time International Ratio 0.9 (0.9-1.1) Activated Partial Thromboplast Time 25.0 SECONDS (21.0-31.0) Partial Thromboplastin Ratio 1.0 Anion Gap 7.0 mmol/L (3-11) Estimated GFR () 118.0 Estimated GFR (Non- 101.8 BUN/Creatinine Ratio 19.5 (10-20) Calcium Level 9.4 mg/dl (8.5-10.1) Troponin I 0.034 ng/ml (0-0.045) Laboratory results as reviewed by me. Medications Administered Medications (Trade) Dose Ordered Sig/Yeimy Route Start Time Stop Time Status Last Admin Dose Admin Aspirin (Aspirin Chew) 324 mg NOW STAT PO 12/19/17 18:28 12/19/17 18:29 DC 12/19/17 18:43 324 MG Nitroglycerin (Nitrostat Tab) 0.4 mg Q5M STAT SL 12/19/17 18:28 12/19/17 18:29 DC 12/19/17 18:43 0.4 MG Ondansetron HCl (Zofran Inj) 4 mg STK-MED ONCE .ROUTE 12/19/17 18:41 12/19/17 18:42 DC 12/19/17 18:41 4 MG Acetaminophen (Tylenol Tab) 650 mg NOW STAT PO 12/19/17 19:46 12/19/17 19:47 DC 12/19/17 19:55 650 MG Labetalol HCl (Normodyne IV) 10 mg NOW STAT IV 12/19/17 20:14 12/19/17 20:25 DC 12/19/17 20:20 10 MG ECG Per My Interpretation Indication: chest pain, other (hypertension) Rate (beats per minute): 58 Rhythm: sinus bradycardia Findings: left axis deviation, other (no ST elevations, QTC of 429 ms) ED Course 1819: The patient was evaluated in room C9. A complete history and physical exam was performed. 1827: Nitrostat Tab 0.4 mg SL, Aspirin Chew 324 mg PO. 1929: I reevaluated the patient and her chest pain is now a 2 after 1 sublingual. Her blood pressure is higher now. She says that she is no longer nauseated. 1944: The patient developed a headache after Nitroglycerin. She is going to be treated with Tylenol. 1945: Ordered Tylenol Tab 650 mg PO. 2010: I reevaluated the patient and her chest pain is gone but she is still very hypertensive. I talked to her about her test results. She expressed understanding and agreement of the treatment plan. She will be evaluated for further treatment. 2013: Normodyne IV 10 mg. 2019: I spoke [place]. Travon Grimes [facility] [place]. We discussed the patient and her results. The patient will be further evaluated by Franco Umana. Medical Decision This is a 52-year-old female presents with vomiting, chest discomfort and hypertension. Differential diagnosis includes unstable angina, [place], NSTEMI, hypertensive emergency, gastritis, bowel obstruction. I did perform a limited focused review of portions of the patient's old chart on the electronic medical record. The patient was seen here on the for vomiting after she started prepping for a colonoscopy. She also complained of diarrhea and was hypertensive and was treated with IV Lopressor and a Clonidine patch. She was discharged with Zofran. She was also seen here in November for high blood pressure and vomiting and was treated with Labetalol at the time. The patient had a non- STEMI in June of last year and had a catheterization which showed mild to moderate coronary artery disease with a 40% mid-RCA lesion. I did evaluate the patient as noted above. Patient has a history of non-STEMI and is presenting with chest pressure, vomiting and high blood pressure. IV access was established. The patient was placed on a continuous ekg monitor. I did treat the patient with sublingual nitroglycerin 3. She is also given aspirin. I did order and personally review the patient's 12-lead EKG and chest/abdominal x-ray as described above. She has no acute ischemic changes on her twelve-lead EKG. There is no sign of obstruction or free air on her x-rays. I did order and review the patient's blood work as noted in the electronic medical record. Troponin is negative. The patient was treated with Zofran for her nausea. I did reassess the patient. Her chest pain is resolved. She still remains significantly hypertensive. She was given labetalol 10 mg IV. She also had a headache develop after the nitroglycerin was given Tylenol. I did reassess her again. She still remains hypertensive. I did recommend she be hospitalized for blood pressure control as well as further workup for her chest pain including cardiac enzymes. I did discuss case with the hospitalist and test case developer. Medication Reconcilliation Current Medication List: was personally reviewed by me Blood Pressure Screening Patient's blood pressure: Elevated blood pressure Referred to hospitalist. Consults Time Called: 2014 Consulting Physician: Dr. Travon ELIZONDO resident boiler shop supervisor Returned Call: [address] Travon ELIZONDO resident boiler shop supervisor. We discussed the patient and her results. The patient will be further evaluated by Franco Umana. Impression Primary Impression: Hypertensive emergency Additional Impressions: Precordial chest pain Vomiting Critical Care I have personally spent 33 minutes of critical care time in the direct management of this patient. This includes bedside care, interpretation of diagnostic studies and testing, discussion with consultants and patient, and other required patient management activities. This time is in excess of all separately billable procedures. Scribe Attestation The scribe's documentation has been prepared under my direct and personally reviewed by me in its entirety. I confirm that the note above accurately reflects all work, treatment, procedures, and medical decision making performed by me. Departure Information Dispostion Being Evaluated By Hospitalist Referrals Teena Killian DO (PCP) Patient Instructions My Franco [facility] Problem Qualifiers Additional Impressions: Vomiting Vomiting type: unspecified Vomiting Intractability: non-intractable Nausea presence: with nausea Qualified Codes: R11.2 - Nausea with vomiting, unspecified
[2017-12-20] MEDS: CHECK CLONIDINE PATCH PLACEMENT SCH ×2 (00:18→08:48)
[2017-12-20] MEDS: METOPROLOL TARTRATE 1 MG/ML VIAL IV PRN ×2 (01:22→06:32)
[2017-12-20 03:47] LABS: CALCIUM 9.3 mg/dl (8.5-10.1); CREATININE 0.73 mg/dl (0.60-1.20); POTASSIUM 3.2 mmol/L (3.5-5.1)
[2017-12-20] MEDS ORDERED: PROMETHAZINE HCL INJ 25 MG/ML 1 ML VIAL IM STA (05:18)
[2017-12-20] MEDS ORDERED: POTASSIUM CHLORIDE 20 MEQ TABCR PO ONE (07:00)
[2017-12-20] MEDS ORDERED: CLONIDINE HCL 0.1 MG/24 HR TRANSDERM SYS TD SCH (09:00)
[2017-12-20] MEDS ORDERED: MULTIVITAMIN TAB PO SCH (09:00)
[2017-12-20] MEDS ORDERED: LOSARTAN POTASSIUM 50 MG TAB PO SCH (09:00)
[2017-12-20] MEDS ORDERED: METOPROLOL SUCC 50MG EXT REL TAB PO SCH ×2 (09:00)
[2017-12-20] MEDS ORDERED: ASPIRIN 81 MG ECTAB PO SCH (09:00)
[2017-12-20] MEDS ORDERED: HEPARIN SOD 5000 UNIT/0.5 ML CARP SQ SCH ×2 (09:00)
--- NOTE | 2017-12-20 12:25 | Cardiology Consultation ---
Cardiology Consultation Date of Consultation: December 20, 2017. Requesting Physician: Dr. Cool Reason for Consultation: Hypertension Pt evaluation today including: conversation w/ patient, physical exam, lab review, review of studies, review of inpatient medication list, conversation w/ attending History of Present Illness This is a 52-year-old woman with a complex medical history including nonobstructive coronary artery disease identified by catheterization in 2013, she had a 30% LAD, a 30% mid RCA and required no intervention. She was admitted June 2017 with nausea and vomiting but was identified as having an elevated troponin. She did not have significant ST elevation and it was felt that her troponin was likely due to a myocarditis. An echocardiogram done 06/21/2017 showed mild left ventricular dysfunction with ejection fraction of 40% and some wall motion abnormalities. Her troponin peaked at 6.8 on 06/21/2017. She was discharged on 06/23/2017. She was readmitted on 06/27/2017 with nausea, vomiting and a severely elevated- blood pressure. Her troponins were noted to be elevated also, but less than during her prior admission. Her electrocardiogram did not show an acute coronary syndrome. Her chest x-ray was consistent with CHF as well as her chest CT (and was negative for PE), her weight however did not seem to be increased from last week. She has been feeling much better following admission, however on 06/28/2017 her T waves looked markedly different than before and given that and her troponin trend as well as wall motion abnormalities on her echocardiogram we felt obligated to perform coronary angiography. That showed her known nonobstructive coronary artery disease and this is felt to represent Takotsubo disease. She has also had very difficult to treat hypertension, it appears to be very labile with extremely high measurements (over 200 systolic) as well as low blood pressures associated with dizziness, she reports relatively recently having a blood pressure in the 80s systolic with dizziness. She has been evaluated for her hypertension here with nephrology as well as at [facility] for second opinion. At [facility] she was started on a clonidine patch, which she thinks improved her symptoms (I will review her symptoms in the next paragraph) but now she has had recurrence. Her symptoms have been episodic nausea, often followed by vomiting but not always, diaphoresis and some type of chest pressure. She also reports intermittent dizziness, she reports that at times her dizziness has been documented to be a result of low blood pressure. She therefore is not on a lot of medications due to the symptomatic hypotension. She came in this time (she tells me) primarily because in addition to these above symptoms she was also having tingling in both her legs which she has not had before. She is still wearing her clonidine patch, currently she feels very well and is getting ready to eat lunch. Past Medical/Surgical History (1) Takotsubo cardiomyopathy (2) Non-ST elevation myocardial infarction (NSTEMI) due to mismatch of myocardial oxygen supply and demand (3) Hypertensive emergency (4) Chronic hypertension Family History Cancer Diabetes mellitus Heart disease Hypertension Lung disease Social History Smoking Status: Former Smoker History of Alcohol Use: No Review of Systems Constitutional: No fever, No weight loss, No weakness Respiratory: No cough, No wheezing, No shortness of breath, No dyspnea on exertion Cardiac: + see HPI, No chest pain, No orthopnea, No PND, No edema, No palpitations Abdomen: + see HPI, + nausea, + vomiting, No pain, No diarrhea, No GI bleeding Female : No problem reported Neurologic: No paralysis, No weakness, No numbness/tingling, No balance problems Heme: No abnormal bleeding/bruising, No clotting problems Endo: No fatigue Skin: No problem reported All Other Systems: Reviewed and Negative Allergies Coded Allergies: [place] (Verified Allergy, Severe, HIVES, 12/20/17) PT ALLERGIC TO DAWN BEANS Doxycycline (Verified Allergy, Unknown, rash, 12/17/17) Iodinated Diagnostic Agents (Verified Allergy, Unknown, `, 12/17/17) Latex1 -Allergic Contact Dermititis (Verified Allergy, Unknown, RASH, 12/17) Meperidine (Verified Allergy, Unknown, HIVES, VOMITING, 12/17/17) Prochlorperazine (Verified Allergy, Unknown, ., 12/17/17) [place] (Verified Allergy, Unknown, HIVES, 12/17/17) Tomato (Verified Allergy, Unknown, HIVES, 12/17/17) Uncoded Allergies: Dawn Beans (Allergy, Mild, HIVES, 12/10/17) Medications Current Inpatient Medications Medications (Trade) Dose Ordered Sig/Yeimy Route Start Time Stop Time Status Last Admin Dose Admin Aspirin (Ecotrin Tab) 81 mg QAM PO 12/20/17 09:00 01/19/18 08:59 12/20/17 08:48 81 MG Atorvastatin Calcium (Lipitor Tab) 40 mg HS PO 12/20/17 21:00 01/19/18 20:59 Losartan Potassium (coZAAR TAB) 50 mg DAILY PO 12/20/17 09:00 01/19/18 08:59 12/20/17 08:48 50 MG Multivitamins (Multivitamin Tab) 1 tab DAILY PO 12/20/17 09:00 01/19/18 08:59 12/20/17 08:47 1 TAB Ondansetron HCl (Zofran Tab) 4 mg Q6 PRN PO 12/19/17 21:15 01/18/18 21:14 Sertraline HCl (Zoloft Tab) 100 mg QPM PO 12/20/17 21:00 01/19/18 20:59 Metoprolol Tartrate (Lopressor Iv) 5 mg Q4 PRN IV 12/19/17 21:15 01/18/18 21:14 12/20/17 06:32 5 MG Acetaminophen (Tylenol Tab) 650 mg Q4H PRN PO 12/19/17 22:00 01/18/18 21:59 Al Hydrox/Mg Hydrox/Simethicone (Maalox Max Susp) 15 ml Q4H PRN PO 12/19/17 22:00 01/18/18 21:59 Magnesium Hydroxide (Milk Of Magnesia Susp) 30 ml Q12H PRN PO 12/19/17 22:00 01/18/18 21:59 Ondansetron HCl (Zofran Inj) 4 mg Q6H PRN IV 12/19/17 22:00 01/18/18 21:59 12/20/17 06:25 4 MG Nitroglycerin (Nitrostat Tab) 0.4 mg UD PRN SL 12/19/17 22:00 01/18/18 21:59 Polyethylene (Miralax Powder Packet) 17 gm DAILY PRN PO 12/19/17 22:00 01/18/18 21:59 Heparin Sodium (Porcine) (Heparin Sq 5000 Unit/0.5ml) 5,000 unit Q12 SQ 12/20/17 09:00 01/19/18 08:59 Clonidine HCl (Wqgdpwlu-Oao-2 0.1mg/24hr Patch) 1 patch Th@0900 TD 12/25/17 09:00 01/24/18 08:59 Miscellaneous (Remove Clonidine Patch) 1 ea Th@0859 N/A 12/25/17 08:59 01/24/18 08:58 Miscellaneous Information (Check Clonidine Patch Placement) 1 ea QS N/A 12/20/17 00:00 01/19/18 00:00 12/20/17 08:48 1 EA Metoprolol Succinate (Toprol Xl Tab) 50 mg BID PO 12/20/17 09:00 01/19/18 08:59 12/20/17 08:47 50 MG Physical Exam Vital Signs Past 12 Hours Date Time Temp Pulse Resp B/P (MAP) Pulse Ox O2 Delivery O2 Flow Rate FiO2 12/20/17 11:37 36.9 70 18 106/67 (80) 98 Room Air 12/20/17 08:00 Room Air 12/20/17 06:45 36.9 61 18 175/91 (119) 100 Room Air 12/20/17 06:32 71 178/90 12/20/17 06:28 178/90 (119) 12/20/17 04:19 36.8 57 18 109/62 (78) 97 12/20/17 04:00 Room Air 12/20/17 03:01 138/76 (96) 12/20/17 01:22 79 191/91 12/20/17 01:04 79 191/91 (124) Constitutional: General Apperance: heathly-appearing Level of Distress: NAD Psychiatric: Mental Status: active & alert Head: normocephalic Eyes: EOM: EOMI ENMT: normal ENT inspection, hearing grossly normal Neck: supple, no masses Lungs: Respiratory effort: no dyspnea, good air movement Auscultation: breath sounds normal, no wheezing Cardiovascular: Heart Auscultation: RRR, no murmurs, no rubs, no gallops Peripheral Pulses: Bruits: none appreciated Abdomen: Bowel Sounds: normal Inspection & Palpation: soft, no tenderness, guarding & rebound, no masses Musculoskeletal: normal strength (5/5 throughout) Extremities: no edema Neurologic: Cranial Nerves: grossly intact Sensation: grossly intact Data Laboratory Results: Last 24 Hours Test 12/19/17 18:50 12/20/17 02:59 12/20/17 09:10 White Blood Count 10.02 K/uL Red Blood Count 4.19 M/uL Hemoglobin 13.7 g/dL Hematocrit 38.5 % Mean Corpuscular Volume 91.9 fL Mean Corpuscular Hemoglobin 32.7 pg Mean Corpuscular Hemoglobin Concent 35.6 g/dl Platelet Count 316 K/uL Mean Platelet Volume 10.3 fL Neutrophils (%) (Auto) 84.8 % Lymphocytes (%) (Auto) 12.6 % Monocytes (%) (Auto) 1.8 % Eosinophils (%) (Auto) 0.1 % Basophils (%) (Auto) 0.5 % Neutrophils # (Auto) 8.50 K/uL Lymphocytes # (Auto) 1.26 K/uL Monocytes # (Auto) 0.18 K/uL Eosinophils # (Auto) 0.01 K/uL Basophils # (Auto) 0.05 K/uL RDW Standard Deviation 43.0 fL RDW Coefficient of Variation 12.7 % Immature Granulocyte % (Auto) 0.2 % Immature Granulocyte # (Auto) 0.02 K/uL Prothrombin Time 9.9 SECONDS Prothromb Time International Ratio 0.9 Activated Partial Thromboplast Time 25.0 SECONDS Partial Thromboplastin Ratio 1.0 Sodium Level 139 mmol/L 137 mmol/L Potassium Level 3.3 mmol/L 3.2 mmol/L Chloride Level 105 mmol/L 103 mmol/L Carbon Dioxide Level 27 mmol/L 27 mmol/L Anion Gap 7.0 mmol/L 7.0 mmol/L Blood Urea Nitrogen 13 mg/dl 13 mg/dl Creatinine 0.67 mg/dl 0.73 mg/dl Estimated GFR () 118.0 110.5 Estimated GFR (Non- 101.8 95.4 BUN/Creatinine Ratio 19.5 17.7 Random Glucose 136 mg/dl 110 mg/dl Calcium Level 9.4 mg/dl 9.3 mg/dl Troponin I 0.034 ng/ml 0.044 ng/ml 0.032 ng/ml Est Creatinine Clear Calc Drug Dose 77.1 ml/min Imaging: Chest x-ray this admission shows no active disease EKG: There are 3 electrocardiograms is able to review this admission, also sinus rhythm with no significant abnormality Telemetry reviewed: Assessment & Plan 1. Hypertension: She appears to have very labile hypertension, control can be difficult. I do not know that she has much in way symptoms related to her hypertension I do not know that her symptoms are cardiovascular in nature. According to her history she has had symptomatic hypotension even on her current medical regimen (and here in the hospital she has had 2 measurements where her blood pressures just over 100 systolic alternating with systolic blood pressures in the 170-180 range), therefore there is probably little room to go with her standard medications. Perhaps the best approach is to leave her on her current regimen for now and have her follow-up as scheduled with nephrology. 2. Elevated troponin: Her troponin was abnormally elevated in August, however on this presentation her troponin increased slightly but never reached the abnormal range. I would not pursue this, this is most likely due to her hypertension. 3. Nausea, vomiting and diaphoresis: It sounds as though this symptom complex has been evaluated in the past with no clear etiology identified, it comes and goes and has been present for years. I do not know if this has anything to do with her labile blood pressure since she has felt well in the hospital and has had the labile blood pressure documented here. Thank you for allowing me to participate in her care.
--- NOTE | 2017-12-20 15:05 | Hospitalist Progress Note ---
Hospitalist Progress Note Date of Service December 20, 2017. (Jennifer Stevens CRNP) Subjective Pt evaluation today including: conversation w/ patient, chart review, lab review, conversation w/ framing consultant (Dr. Moseley ) Voiding: no voiding problems 52 yo female admitted for HTN. Pt reports she is feeling better this morning. Denies n/v. Tolerating PO. She reports developing hypotension after episodes of n/v and diaphoresis. Troponin stable at 0.032. Constitutional: No fever, No chills Respiratory: No shortness of breath Cardiovascular: No chest pain Abdomen: No pain, No nausea, No vomiting Female : No dysuria Heme: No abnormal bleeding/bruising Skin: No rash (Jennifer Stevens CRNP) Objective Vital Signs Date Time Temp Pulse Resp B/P (MAP) Pulse Ox O2 Delivery O2 Flow Rate FiO2 12/20/17 12:00 Room Air 12/20/17 11:37 36.9 70 18 106/67 (80) 98 Room Air 12/20/17 08:00 Room Air 12/20/17 06:45 36.9 61 18 175/91 (119) 100 Room Air 12/20/17 06:32 71 178/90 12/20/17 06:28 178/90 (119) 12/20/17 04:19 36.8 57 18 109/62 (78) 97 12/20/17 04:00 Room Air 12/20/17 03:01 138/76 (96) 12/20/17 01:22 79 191/91 12/20/17 01:04 79 191/91 (124) 12/19/17 23:59 Room Air 12/19/17 23:42 37.1 71 16 197/101 (133) 97 Room Air 12/19/17 23:12 199/74 (115) 12/19/17 23:11 203/106 (138) 12/19/17 21:55 37.2 70 18 213/108 98 Room Air 12/19/17 21:52 75 195/127 12/19/17 21:31 70 195/127 12/19/17 21:29 71 209/122 12/19/17 21:27 88 209/122 12/19/17 20:48 76 14 219/129 98 Room Air 12/19/17 20:23 193/108 12/19/17 20:20 70 201/105 12/19/17 19:55 65 214/118 12/19/17 19:30 77 14 229/123 12/19/17 18:52 66 12/19/17 18:14 36.7 85 18 215/136 99 Room Air (Jennifer Stevens CRNP) Physical Exam General Appearance: no apparent distress Eyes: normal inspection ENT: hearing grossly normal Neck: no JVD Respiratory/Chest: lungs clear, normal breath sounds, no respiratory distress, no accessory muscle use, + pertinent finding (nasal cannula O2 in place ) Cardiovascular: regular rate, rhythm, no JVD Abdomen: non tender, soft, + pertinent finding (bowel sounds present all four quadrants ) Extremities: normal range of motion 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: alert, normal mood/affect, oriented x 3 Skin: normal color (Jennifer Stevens CRNP) Laboratory Results Last 24 Hours Test 12/19/17 18:50 12/20/17 02:59 12/20/17 09:10 White Blood Count 10.02 K/uL Red Blood Count 4.19 M/uL Hemoglobin 13.7 g/dL Hematocrit 38.5 % Mean Corpuscular Volume 91.9 fL Mean Corpuscular Hemoglobin 32.7 pg Mean Corpuscular Hemoglobin Concent 35.6 g/dl Platelet Count 316 K/uL Mean Platelet Volume 10.3 fL Neutrophils (%) (Auto) 84.8 % Lymphocytes (%) (Auto) 12.6 % Monocytes (%) (Auto) 1.8 % Eosinophils (%) (Auto) 0.1 % Basophils (%) (Auto) 0.5 % Neutrophils # (Auto) 8.50 K/uL Lymphocytes # (Auto) 1.26 K/uL Monocytes # (Auto) 0.18 K/uL Eosinophils # (Auto) 0.01 K/uL Basophils # (Auto) 0.05 K/uL RDW Standard Deviation 43.0 fL RDW Coefficient of Variation 12.7 % Immature Granulocyte % (Auto) 0.2 % Immature Granulocyte # (Auto) 0.02 K/uL Prothrombin Time 9.9 SECONDS Prothromb Time International Ratio 0.9 Activated Partial Thromboplast Time 25.0 SECONDS Partial Thromboplastin Ratio 1.0 Sodium Level 139 mmol/L 137 mmol/L Potassium Level 3.3 mmol/L 3.2 mmol/L Chloride Level 105 mmol/L 103 mmol/L Carbon Dioxide Level 27 mmol/L 27 mmol/L Anion Gap 7.0 mmol/L 7.0 mmol/L Blood Urea Nitrogen 13 mg/dl 13 mg/dl Creatinine 0.67 mg/dl 0.73 mg/dl Estimated GFR () 118.0 110.5 Estimated GFR (Non- 101.8 95.4 BUN/Creatinine Ratio 19.5 17.7 Random Glucose 136 mg/dl 110 mg/dl Calcium Level 9.4 mg/dl 9.3 mg/dl Troponin I 0.034 ng/ml 0.044 ng/ml 0.032 ng/ml Est Creatinine Clear Calc Drug Dose 77.1 ml/min (Jennifer Stevens CRNP) Assessment and Plan Hypertension BP noted to be 175/91 this morning; 106/67 this afternoon. Pt feeling improved. Consult and discussion with Dr. Moseley noted. Complicated hypertensive patient. Will continue Clonidine patch, Toprol XL, and Cozaar since BP stable. Refer back to nephrology at [facility] for further evaluation. ? transient hypotension and n/v secondary to diaphoresis with the Clonidine patch. Chest pain Improved. Troponins stable at 0.032. ECHO not indicated at this time per cardiology. Anxiety - continue sertraline 100 mg PM DVT Prophylaxis heparin bid Disposition Plan for d/c home once BP stable. Refer back to nephrology at [facility] for further management of HTN. Discharge planning: home (Jennifer Stevens CRNP) Reviewed: Pt Seen/Exam by Me (Mary Funk DO) History See d/c summary for details (Mary Funk DO) Assessment/Plan You should check your blood pressure in the morning before you take your medications and in the evening before you take your evening dose of metoprolol. You should write down your blood pressures and bring them with you to appointments for review If your blood pressure is less than 140 systolic (top number), you should hold your morning metoprolol. You can take the losartan as long as your blood pressure is not less than 120 systolic. If it is less than 140 systolic at night, you should hold your night time dose of metoprolol Please remember to param down on your blood pressure journal which medications you have taken and when or if you held them (Mary Funk, DO)
[2017-12-20] MEDS ORDERED: TPRSR50 PO ×2 (15:38)
--- NOTE | 2017-12-20 15:43 | Discharge Instructions ---
Discharge Instructions Date of Service December 20, 2017. Admission Reason for Admission: Hypertensive Emergency Without Chf Discharge Discharge Diagnosis / Problem: Hypertensive emergency Discharge Goals Goal(s): Decrease discomfort, Improve function, Increase independence Activity Recommendations Activity Limitations: resume your previous activity . Instructions / Follow-Up Instructions / Follow-Up You should check your blood pressure in the morning before you take your medications and in the evening before you take your evening dose of metoprolol. You should write down your blood pressures and bring them with you to appointments for review If your blood pressure is less than 140 systolic (top number), you should hold your morning metoprolol. You can take the losartan as long as your blood pressure is not less than 120 systolic. If it is less than 140 systolic at night, you should hold your night time dose of metoprolol Please remember to param down on your blood pressure journal which medications you have taken and when or if you held them You should also write down what day you change your clonidine patch Follow up with Dr. Oscar on Friday and Dr. Holland next Friday as already scheduled You should see Dr. Killian late this week or early next week Current Hospital Diet Patient's current hospital diet: AHA Diet (Heart Healthy) Discharge Diet Recommended Diet: AHA Diet (Heart Healthy) Pending Studies Studies pending at discharge: no Medical Emergencies . Who to Call and When: Medical Emergencies: If at any time you feel your situation is an emergency, please call 911 immediately. . Non-Emergent Contact Non-Emergency issues call your: Primary Care Provider, Caddy . . "Provider Documentation" section prepared by Mary Funk. .
--- NOTE | 2017-12-20 15:44 | Discharge Summary ---
Discharge Summary Date of Service December 20, 2017. Discharge Summary Admission Date: December 19, 2017 at 21:07 Discharge Date: December 20, 2017 Discharge Disposition: Home Principal Diagnosis: HTN emergency Problems/Secondary Diagnoses: (1) Hypertensive emergency Status: Chronic Chronically elevated trop Takotsubo cardiomyopathy Cyclic vomiting syndrome HTN Immunizations: Have You Had Influenza Vaccine: Unknown History of Tetanus Vaccine?: Unknown History of Pneumococcal: Unknown History of Hepatitis B Vaccine: Unknown Consultations: Dr. Martin Medication Reconciliation New Medications: Metoprolol Succinate (Metoprolol Succinate ER) 50 Mg Tabcr 50 MG PO BID for 30 Days Continued Medications: Aspirin (Aspirin Chewable) 81 Mg Chew 81 MG PO DAILY Atorvastatin (Lipitor) 40 Mg Tab 40 MG PO HS, TAB Clonidine (Catapres-Tts) 0.1 Mg/24 Hr Dis 1 PATCH TD WK, PATCH Losartan Potassium (Cozaar) 50 Mg Tab 50 MG PO DAILY, TAB Multivitamin (Multivitamin) Tab 1 TAB PO DAILY, TAB Ondansetron Hcl (Zofran) 4 Mg Tab 4 MG SL Q6 PRN for Nausea, TAB Sertraline (Zoloft) 100 Mg Tab 100 MG PO QPM, TAB Discontinued Medications: Metoprolol Succinate (Metoprolol Succinate ER) 50 Mg Tabcr 50 MG PO DAILY Discharge Exam Pt is feeling at her usual. No further headache, n/v, chest tightness, LE n/t. She would like to go home. Pt denies fever, SOB, abd pain, c/d, LE pain or swelling. States clonidine patch was changed on Friday and Friday night was when she had a BP in the 90s systolic. She saw PCP on AM and BP was low at that time as well after taking her AM meds. It was 131/79 prior to taking her meds that AM. Physical Exam: General Appearance: no apparent distress, + thin Eyes: normal inspection, sclerae normal Respiratory/Chest: normal breath sounds, no respiratory distress Cardiovascular: regular rate, rhythm, no edema Abdomen / GI: non tender, soft Extremities: no calf tenderness, no pedal edema 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: alert, normal mood/affect, oriented x 3 Skin: normal color, warm/dry Hospital Course This is a 52 yo f with a h/o hypertensive emergency presenting to us with chest pain and systolic > 200 poorly responding to medical intervention Chest pain secondary to hypertensive emergency -tele admission - repeat troponin with very slight elevation x3, max is 0.044 and appears to be chronic Pt had an ECHO 08/2017, will not repeat at this time Cardiology feels that management of her BP medications should be deferred to her usual rn practitioner Pt had been instructed to d/c HS dose of metoprolol given hypoTN episodes. Possible that the clonidine patch is more effective on initial placement causing hypoTN?? BP on d/c was 113/72 She was d/c'd with the following instructions moving forward: You should check your blood pressure in the morning before you take your medications and in the evening before you take your evening dose of metoprolol. You should write down your blood pressures and bring them with you to appointments for review If your blood pressure is less than 140 systolic (top number), you should hold your morning metoprolol. You can take the losartan as long as your blood pressure is not less than 120 systolic. If it is less than 140 systolic at night, you should hold your night time dose of metoprolol Please remember to param down on your blood pressure journal which medications you have taken and when or if you held them Please param down the date that you change your clonidine patch HLD - Atorvastatin 40 mg PM Anxiety - continue sertraline 100 mg PM Total Time Spent: Greater than 30 minutes This includes examination of the patient, discharge planning, medication reconciliation, and communication with other providers. Discharge Instructions Please refer to the electronic Patient Visit Report (Discharge Instructions) for additional information. Follow-Up Follow up with Dr. Oscar on Friday and Dr. Holland next Friday as already scheduled You should see Dr. Killian late this week or early next week Additional Copies To Pako Holland MD; Teena Killian DO; Igor Oscar D.O.
[2017-12-20] MEDS ORDERED: SERTRALINE HCL 100 MG TAB PO SCH (21:00)
[2017-12-20] MEDS ORDERED: ATORVASTATIN 20 MG TAB PO SCH (21:00)
[2017-12-25] MEDS ORDERED: CLONIDINE HCL 0.1 MG/24 HR TRANSDERM SYS TD SCH (09:00)
== END 2017-12-20 16:36 | disposition home or self-care (01) | DRG 305 ==
LOC: C.EDB 18:06 → C.2T 21:07 → ENRESERV 21:28
PROVIDERS: ADMIT Hospitalist; ATTEND Family Medicine
DX: I16.1 Hypertensive emergency (principal); I11.9 Hypertensive heart disease without heart failure; R07.2 Precordial pain; R79.89 Other specified abnormal findings of blood chemistry; R53.1 Weakness; R20.0 Anesthesia of skin; G43.A0 Cyclical vomiting, in migraine, not intractable; F12.90 Cannabis use, unspecified, uncomplicated; R61 Generalized hyperhidrosis; I95.9 Hypotension, unspecified; E78.5 Hyperlipidemia, unspecified; F41.9 Anxiety disorder, unspecified; I25.2 Old myocardial infarction; Z87.891 Personal history of nicotine dependence; Z79.82 Long term (current) use of aspirin; Z79.899 Other long term (current) drug therapy; Z88.1 Allergy status to other antibiotic agents; Z88.5 Allergy status to narcotic agent; Z88.8 Allergy status to other drugs, medicaments and biological substances; Z91.041 Radiographic dye allergy status; Z91.040 Latex allergy status; Z91.018 Allergy to other foods

== ENCOUNTER → 2018-02-19 | Outpatient (CLI) | payer OTHER ==
[~2018-02-19] MED LIST changes: -CLON0.1D7 TD; +CLON0.1D7 TOP; -PROM25SU28 PR
[2018-02-19 14:22] LABS: ALBUMIN 4.1 gm/dl (3.4-5.0); CALCIUM 9.2 mg/dl (8.5-10.1); CARBON DIOXIDE 27 mmol/L (21-32); CREATININE 0.89 mg/dl (0.60-1.20); GLUCOSE 96 mg/dl (70-99); PHOSPHORUS 3.5 mg/dl (2.5-4.9); POTASSIUM 3.6 mmol/L (3.5-5.1); SODIUM 133 mmol/L (136-145)
[2018-02-19 15:35] LABS: BLOOD UREA NITROGEN 18 mg/dl (7-18)
== END | disposition home or self-care (01) ==
LOC: C.LABPBG 10:57
PROVIDERS: ATTEND Family Medicine
DX: I10 Essential (primary) hypertension (principal); E04.2 Nontoxic multinodular goiter; R63.4 Abnormal weight loss; R13.10 Dysphagia, unspecified; R61 Generalized hyperhidrosis

== ENCOUNTER → 2018-02-23 | Outpatient (CLI) | payer OTHER ==
--- NOTE | 2018-02-23 15:40 | DIAGNOSTIC IMAGING REPORT ---
THYROID ULTRASOUND CLINICAL HISTORY: Multiple thyroid nodules. Dysphagia. COMPARISON STUDY: Thyroid ultrasound June 23, 2017. TECHNIQUE: Sonography of the thyroid gland was performed. FINDINGS: The right thyroid lobe measures 5.3 x 1.3 x 1.9 cm and the left lobe measures 5.3 x 1.3 x 1.5 cm. Multiple subcentimeter thyroid nodules are similar to exam of June 23, 2017. These favor colloid cysts. No suspicious nodules are noted by sonography. IMPRESSION: No significant change in multiple subcentimeter thyroid nodules since exam of June 23, 2017. None of these nodules meet criteria for biopsy. Electronically signed by: Flynn Shiplye M.D. 02/23/2018 3:39 PM Dictated Date/Time: 02/23/2018 3:37 PM
== END | disposition home or self-care (01) ==
LOC: C.ULTR 14:40
PROVIDERS: ATTEND Family Medicine
DX: E04.2 Nontoxic multinodular goiter (principal); R13.10 Dysphagia, unspecified

== ENCOUNTER 2018-03-26 05:18 | Emergency (ER) | payer OTHER ==
[~2018-03-26] VITALS: Ht 162.6 cm; Wt 51.4 kg
[2018-03-26 05:22] VITALS: TEMP 36.5; Ht 162.6 cm; Wt 51.4 kg
[2018-03-26] MEDS ORDERED: METOCLOPRAMIDE HCL INJ 5 MG/ML 2 ML VIAL IV STA (05:42)
[2018-03-26] MEDS ORDERED: SODIUM CHLORIDE 0.9% 1000ML 1,000 ML IV STA (05:42)
--- NOTE | 2018-03-26 05:43 | EMERGENCY ROOM VISIT NOTE ---
History Report prepared by Andres: Quentin Barksdale Under the Supervision of: Dr. Igor Elizabeth M.D. First contact with patient: 05:27 Chief Complaint: VOMITING Stated Complaint: VOMITING History of Present Illness The patient is a 53 year old female who presents to the Emergency Room with complaints of persistent vomiting beginning two days ago. The patient states that she got sick two days ago and has been vomiting and having body aches and diarrhea since. She notes that she feels as though she has heart burn. She reports that she has a previous history of hypertension and heart burn. The patient states that she has been taking Zofran with no relief of her symptoms. Source of History: patient Onset: two days ago Position: abdomen Quality: other (vomiting) Timing: other (persistent) Associated Symptoms: + vomiting Note: The patient also complains of body aches. Review of Systems See HPI for pertinent positives & negatives. A total of 10 systems reviewed and were otherwise negative. Past Medical & Surgical Medical Problems: (1) MP (acute kidney injury) (2) Anxiety (3) Atherosclerosis Nos (4) Chest pain (5) Chronic hypertension (6) Elevated troponin (7) Elevated troponin (8) Elevated troponin I level (9) Heart burn (10) Hypertension Nos (11) Hypertensive emergency (12) Hypertensive emergency without congestive heart failure (13) HYPERTENSIVE URGENCY (14) Hypertensive urgency, malignant (15) Hypokalemia (16) Hyponatremia (17) Intractable nausea and vomiting (18) Malignant essential hypertension (19) Marijuana dependence (20) Nausea & vomiting (21) Non-ST elevation myocardial infarction (NSTEMI) due to mismatch of myocardial oxygen supply and demand (22) Prolonged QT interval (23) Renal artery stenosis (24) Takotsubo cardiomyopathy (25) Uncontrolled hypertension Family History Cancer Diabetes mellitus Heart disease Hypertension Lung disease Social History Smoking Status: Never Smoker Alcohol Use: occasionally Drug Use: marijuana Marital Status: Housing Status: lives with family Occupation Status: employed Current/Historical Medications Scheduled Aspirin (Aspirin Chewable), 81 MG PO DAILY Atorvastatin (Lipitor), 40 MG PO HS Clonidine (Catapres-Tts), 1 PATCH TOP WK Losartan Potassium (Cozaar), 50 MG PO DAILY Metoprolol Succinate (Metoprolol Succinate ER), 50 MG PO BID Multivitamin (Multivitamin), 1 TAB PO DAILY Sertraline (Zoloft), 100 MG PO QPM Scheduled PRN Metoclopramide (Reglan), 10 MG PO Q6H PRN for Nausea Ondasetron Odt (Zofran Odt), 4 MG SL Q6H PRN for Nausea Allergies Coded Allergies: Green Marques (Verified Allergy, Severe, HIVES, 12/20/17) PT ALLERGIC TO DAWN BEANS Doxycycline (Verified Allergy, Unknown, rash, 12/17/17) Iodinated Diagnostic Agents (Verified Allergy, Unknown, `, 12/17/17) Latex1 -Allergic Contact Dermititis (Verified Allergy, Unknown, RASH, 12/17) Meperidine (Verified Allergy, Unknown, HIVES, VOMITING, 12/17/17) Prochlorperazine (Verified Allergy, Unknown, ., 12/17/17) [place] (Verified Allergy, Unknown, HIVES, 12/17/17) Tomato (Verified Allergy, Unknown, HIVES, 12/17/17) Uncoded Allergies: Dawn Beans (Allergy, Mild, HIVES, 12/10/17) Physical Exam Vital Signs Date Time Temp Pulse Resp B/P (MAP) Pulse Ox O2 Delivery O2 Flow Rate FiO2 03/26/18 07:15 70 16 209/112 97 Room Air 03/26/18 06:24 60 03/26/18 06:20 57 18 236/122 98 Room Air 219/123 03/26/18 05:22 36.5 73 18 98/67 97 Room Air Physical Exam GENERAL: Awake, alert, well-appearing, in no acute distress HENT: Normocephalic, atraumatic. Oropharynx unremarkable. EYES: Normal conjunctiva. Sclera non-icteric. NECK: Supple. No nuchal rigidity. FROM. No JVD. RESPIRATORY: Clear to auscultation. CARDIAC: Regular rate, normal rhythm. Extremities warm and well perfused. Pulses equal. ABDOMEN: Soft, non-distended. No tenderness to palpation. No rebound or guarding. No masses. RECTAL: Deferred. MUSCULOSKELETAL: Chest examination reveals no tenderness. The back is symmetrical on inspection without obvious abnormality. There is no CVA tenderness to palpation. No joint edema. LOWER EXTREMITIES: Calves are equal size bilaterally and non-tender. No edema. No discoloration. NEURO: Normal sensorium. No sensory or motor deficits noted. SKIN: No rash or jaundice noted. Medical Decision & Procedures ER Provider Diagnostic Interpretation: A 1 view of the chest was interpreted by me does not show any evidence of pneumonia congestion or pneumothorax A 3 view of the abdomen was interpreted by me does not show any evidence of obstruction a mild amount of stool in the colon and no free air. Laboratory Results 03/26/18 05:49 Red Blood Count 4.48, Mean Corpuscular Volume 94.2, Mean Corpuscular Hemoglobin 31.5, Mean Corpuscular Hemoglobin Concent 33.4, Mean Platelet Volume 10.4, Neutrophils (%) (Auto) 68.0, Lymphocytes (%) (Auto) 21.2, Monocytes (%) (Auto) 7.5, Eosinophils (%) (Auto) 2.5, Basophils (%) (Auto) 0.6, Neutrophils # (Auto) 8.40, Lymphocytes # (Auto) 2.62, Monocytes # (Auto) 0.93, Eosinophils # (Auto) 0.31, Basophils # (Auto) 0.08 03/26/18 05:49 Test 03/26/18 05:49 White Blood Count 12.37 K/uL (4.8-10.8) Red Blood Count 4.48 M/uL (4.2-5.4) Hemoglobin 14.1 g/dL (12.0-16.0) Hematocrit 42.2 % (37-47) Mean Corpuscular Volume 94.2 fL (80-100) Mean Corpuscular Hemoglobin 31.5 pg (25-34) Mean Corpuscular Hemoglobin Concent 33.4 g/dl (32-36) Platelet Count 329 K/uL (130-400) Mean Platelet Volume 10.4 fL (7.4-10.4) Neutrophils (%) (Auto) 68.0 % Lymphocytes (%) (Auto) 21.2 % Monocytes (%) (Auto) 7.5 % Eosinophils (%) (Auto) 2.5 % Basophils (%) (Auto) 0.6 % Neutrophils # (Auto) 8.40 K/uL (1.4-6.5) Lymphocytes # (Auto) 2.62 K/uL (1.2-3.4) Monocytes # (Auto) 0.93 K/uL (0.11-0.59) Eosinophils # (Auto) 0.31 K/uL (0-0.5) Basophils # (Auto) 0.08 K/uL (0-0.2) RDW Standard Deviation 44.9 fL (36.4-46.3) RDW Coefficient of Variation 13.0 % (11.5-14.5) Immature Granulocyte % (Auto) 0.2 % Immature Granulocyte # (Auto) 0.03 K/uL (0.00-0.02) Anion Gap 9.0 mmol/L (3-11) Est Creatinine Clear Calc Drug Dose 65.1 ml/min Estimated GFR () 95.4 Estimated GFR (Non- 82.3 BUN/Creatinine Ratio 29.8 (10-20) Calcium Level 9.1 mg/dl (8.5-10.1) Total Bilirubin 0.3 mg/dl (0.2-1) Direct Bilirubin 0.1 mg/dl (0-0.2) Aspartate Amino Transf (AST/SGOT) 20 U/L (15-37) Alanine Aminotransferase (ALT/SGPT) 26 U/L (12-78) Alkaline Phosphatase 85 U/L (45-117) Total Protein 7.5 gm/dl (6.4-8.2) Albumin 3.8 gm/dl (3.4-5.0) Lipase 244 U/L (73-393) Labs reviewed by ED physician. Medications Administered Medications (Trade) Dose Ordered Sig/Yeimy Route Start Time Stop Time Status Last Admin Dose Admin Sodium Chloride 1,000 ml @ 999 mls/hr Q1H1M STAT IV 03/26/18 05:42 03/26/18 06:42 DC 03/26/18 05:51 999 MLS/HR Metoclopramide HCl (Reglan Inj) 10 mg NOW STAT IV 03/26/18 05:42 03/26/18 05:44 DC 03/26/18 05:52 10 MG Capsaicin (Zostrix Crm) 1 appln NOW STAT EXT 03/26/18 05:58 03/26/18 05:59 DC 03/26/18 06:23 1 APPLN Metoprolol Succinate (Toprol Xl Tab) 50 mg NOW STAT PO 03/26/18 06:25 03/26/18 06:27 DC 03/26/18 06:30 50 MG Losartan Potassium (coZAAR TAB) 50 mg NOW STAT PO 03/26/18 06:25 03/26/18 06:27 DC 03/26/18 06:39 50 MG Ondansetron HCl (Zofran Inj) 4 mg NOW STAT IV 03/26/18 06:36 03/26/18 06:37 DC 03/26/18 06:40 4 MG ED Course 0539: Past medical records reviewed. The patient was evaluated in room B2. A complete history and physical examination was performed. Medical Decision Differential diagnosis: Etiologies such as gastroenteritis, food borne illness, infections, appendicitis , diverticulitis, inflammatory bowel disease, obstruction, GI bleed, biliary pathology, as well as others were entertained. This is a 53-year-old female who presents emergency department complaining of nausea vomiting diarrhea. The patient does not feel she will be able to provide a diarrhea sample here in the emergency department. She does smoke marijuana daily therefore capsaicin ointment was placed. Serial abdominal examinations were placed on this patient in the emergency department and at no time to the patient exhibited surgical abdomen. I will also note that the patient recently had a CAT scan here in the emergency department. Patient does have an elevation in her white blood cell count however she is afebrile and I believe this may be from vomiting. An IV was established, the patient was given a normal saline bolus, Reglan. The patient was trialed with p.o. Gatorade here in the emergency department. I feel she is well enough to be discharged at this point. Patient was in agreement with the treatment plan. Medication Reconcilliation Current Medication List: was personally reviewed by me Impression Primary Impression: Gastroenteritis Scribe Attestation The scribe's documentation has been prepared under my direction and personally reviewed by me in its entirety. I confirm that the note above accurately reflects all work, treatment, procedures, and medical decision making performed by me. Departure Information Dispostion Home / Self-Care Prescriptions Metoclopramide (Reglan) 10 Mg Tab 10 MG PO Q6H Y for Nausea, #10 TAB Prov: Igor Elizabeth MD 03/26/18 Referrals Teena Killian DO (PCP) Patient Instructions My [facility]
[2018-03-26] MEDS ORDERED: CAPSAICIN CR 0.075% 60 GM TUBE EXT STA (05:58)
[2018-03-26 06:02] LABS: BASO % 0.6 %; BASO ABS # 0.08 K/uL (0-0.2); EOS % 2.5 %; EOS ABS # 0.31 K/uL (0-0.5); HEMATOCRIT 42.2 % (37-47); HEMOGLOBIN 14.1 g/dL (12.0-16.0); IG# 0.03 K/uL (0.00-0.02); LYMPH % 21.2 %; LYMPH ABS # 2.62 K/uL (1.2-3.4); MEAN CELL VOLUME 94.2 fL (80-100); MEAN CORPUSCULAR HEMOGLOBIN 31.5 pg (25-34); MEAN CORPUSCULAR HGB CONC 33.4 g/dl (32-36); MEAN PLATELET VOLUME 10.4 fL (7.4-10.4); MONO % 7.5 %; MONO ABS # 0.93 K/uL (0.11-0.59); PLATELET COUNT 329 K/uL (130-400); RED CELL DISTRIBUTION WIDTH SD 44.9 fL (36.4-46.3); WHITE BLOOD COUNT 12.37 K/uL (4.8-10.8)
[2018-03-26] MEDS ORDERED: METO-157 PO (06:24)
[2018-03-26] MEDS ORDERED: LOSARTAN POTASSIUM 50 MG TAB PO STA (06:25)
[2018-03-26] MEDS ORDERED: METOPROLOL SUCC 50MG EXT REL TAB PO STA (06:25)
[2018-03-26] MEDS ORDERED: ONDANSETRON INJ 2 MG/ML 2 ML VIAL IV STA (06:36)
[2018-03-26 06:40] LABS: ALBUMIN 3.8 gm/dl (3.4-5.0); CALCIUM 9.1 mg/dl (8.5-10.1); CREATININE 0.82 mg/dl (0.60-1.20); POTASSIUM 3.3 mmol/L (3.5-5.1); TOTAL PROTEIN 7.5 gm/dl (6.4-8.2)
--- NOTE | 2018-03-26 06:52 | DIAGNOSTIC IMAGING REPORT ---
ABDOMEN 2VIEW W/PA CHEST RTN HISTORY: 53 years-old Female Pt c/o N V D acute nausea, vomiting and diarrhea COMPARISON: Chest radiograph 02/18/2018 TECHNIQUE: PA view of the chest with erect and supine views of the abdomen FINDINGS: Cardiomediastinal and hilar silhouettes are within normal limits. There is no pneumothorax, pleural effusion, focal airspace consolidation or overt pulmonary edema. Healed remote fracture deformity of the posterolateral right seventh rib. Degenerative changes of the shoulders and spine. Surgical clip of the right hemipelvis bilaterally. Mild to moderate formed stool is noted throughout the colon. Bowel gas pattern is nonobstructive. No definite urolith or acute fracture identified. Indeterminate 2 mm round calcification of the left hemipelvis. No pneumatosis or pneumoperitoneum. IMPRESSION: 1. No acute process of the chest. 2. Nonobstructive bowel gas pattern. 3. 2 mm round calcification of the left hemipelvis is indeterminate and may reflect a phlebolith. The above report was generated using voice recognition software. It may contain grammatical, syntax or spelling errors. Electronically signed by: Anam Jimenez M.D. 03/26/2018 6:51 AM Dictated Date/Time: 03/26/2018 6:48 AM
[2018-03-26 07:15] VITALS: BP 209/112; PULSE 70; O2SAT 97
== END 2018-03-26 07:22 | disposition home or self-care (01) ==
LOC: C.EDB 05:18
DX: K52.9 Noninfective gastroenteritis and colitis, unspecified (principal); F12.20 Cannabis dependence, uncomplicated; I10 Essential (primary) hypertension; Z79.82 Long term (current) use of aspirin; Z87.19 Personal history of other diseases of the digestive system; Z91.018 Allergy to other foods; Z88.1 Allergy status to other antibiotic agents; Z91.041 Radiographic dye allergy status; Z91.040 Latex allergy status; Z88.8 Allergy status to other drugs, medicaments and biological substances

== ENCOUNTER 2019-01-21 05:45 | Observation (INO) ==
--- NOTE | 2019-01-14 11:30 | Anesthesiology Consultation ---
Date of Service January 14, 2019 Assessment & Plan (1) Encounter for pre-operative examination: Preoperative cardio evaluation 01/13/2019: She is currently stable and asymptomatic with no anginal symptoms occurring to greater than 4 METS of activity. She has no evidence of CHF or significant valvular abnormality. Recent echo demonstrated normal LV size, wall motion and systolic function. Recent 48-hour Holter monitor preliminarily shows sinus rhythm with no arrhythmia. Her blood pressure is currently well controlled. Given this information, patient is at an acceptable risk to proceed with upcoming surgery without any additional cardiovascular testing or intervention. Chart Review Chart Review: Acceptable Risk for Surgery and Patient seen in Pre Admission Testing Teaching & Discussion Instructed NPO after midnight before surgery, except medications with 15 cc of water. Medication instructions provided according to the PAT guidelines. History Surgery Operation Date: 01/21/19 07:30 Proposed Procedures p C4-C5, C5-C6, C6-C7 Anterior Cervical Discectomy and Fusion with Iliac Crest Bone Graft - Prabhu Wells, Height/Weight Height: 5 ft 7 in Weight: 63.2 kg Allergies Allergy/AdvReac Type Severity Reaction Status Date / Time sulfamethoxazole Allergy Severe N/V Verified 01/07/19 11:16 [From Bactrim] trimethoprim [From Bactrim] Allergy Severe N/V Verified 01/07/19 11:16 doxycycline Allergy Unknown hives and Verified 01/07/19 11:16 vomitting Iodinated Contrast- Oral and Allergy Unknown GIANT Verified 01/07/19 11:16 IV Dye HIVES , VOMITTING, BODY FEELS HOT latex Allergy Unknown RASH Verified 12/29/18 22:57 meperidine Allergy Unknown HIVES, Verified 01/07/19 11:16 VOMITING prochlorperazine Allergy Unknown N/V, Verified 01/07/19 11:16 ITCHINESS strawberry Allergy Unknown HIVES Verified 01/07/19 11:16 tomato Allergy Unknown HIVES Verified 01/07/19 11:16 iodine Allergy Verified 01/12/19 12:10 Green Marques Allergy Unknown HIVES Uncoded 01/07/19 12:06 Hernandez Beans Allergy Unknown HIVES Uncoded 01/07/19 11:16 Doxycycline Hyclate Allergy Uncoded 01/12/19 12:10 Imperim Allergy Uncoded 01/12/19 12:10 Medications Home Medications Medication Instructions Recorded Confirmed Last Taken atorvastatin 40 mg PO HS 12/16/18 01/07/19 01/06/19 clonidine 1 patch TOPICAL DIRECTED 12/16/18 01/07/19 01/05/19 losartan 100 mg PO QAM 12/16/18 01/07/19 01/07/19 metoprolol succinate 100 mg PO BID 12/16/18 01/07/19 01/07/19 multivitamin 1 tab PO DAILY 12/16/18 01/07/19 12/29/18 sertraline 100 mg PO HS 12/16/18 01/07/19 01/06/19 clopidogrel [Plavix] 75 mg PO DAILY 01/07/19 01/07/19 01/07/19 nitrofurantoin monohyd/m-cryst 100 mg PO BID 01/07/19 01/07/19 01/07/19 aspirin 81 mg tablet PO .TAKE 1 TABLET DAILY. tab 01/12/19 01/12/19 Unknown atorvastatin 40 mg tablet PO .Take 1 tablet by juan f #90 tab 01/12/19 01/12/19 Unknown ondansetron 4 mg disintegrating PO .Take 1 SL q 6 hours #30 tab 01/12/19 01/12/19 Unknown tablet promethazine 25 mg rectal WI .INSERT 1 SUPPOSITORY #1 ea 01/12/19 01/12/19 Unknown suppository sertraline 100 mg tablet PO .TAKE 1 TABLET DAILY. #90 tab 01/12/19 01/12/19 Unknown Past Medical History Medical History Renal artery stenosis (Chronic) Anxiety Congestive heart failure, acute (Acute) 06/2017, admitted [facility]. Ruled 2/2 Takasubo CM. TIA (transient ischemic attack) 2 episodes of R sided tingling in 2019; MRI negative for acute changes but did show persistent multiple foci in the white matter, similar to 2017 study. Per neuro eval 12/31/18, likely TIAs but considered possible MS. ASA was switched to Plavix, currently on hold for surgery. HTN (hypertension) (Acute) NSTEMI (non-ST elevated myocardial infarction) (Acute) 2017 [facility]. Cath performed showed mild to moderate non-obstructive CAD. Takotsubo cardiomyopathy (Resolved) 2016. Admitted [facility], full cardiac workup including cath. EF at the time 40%, now resolved to 60-65% on echo 2019. CAD (coronary artery disease) Mild-moderate non-obstructive Carotid stenosis < 50% stenosis B/L per US 12/16/18 Chronic nausea and vomiting. Uses Zofran and marijuana to treat. Diverticulitis History of stomach ulcers Kidney infection CURRENT , RIGHT (ED [facility] LAST WEEK). JUST FINISHED ABX. X4 INFECTION OVER LAST 2 YRS Neck problem 2 BULGING DISCS/1 DETERIORIATING AND PUSHING ON NERVE SUPPLY LIMITED ROM WHEN TURNS NECK TO RIGHT SIDE Thyroid nodule MONITORS Unexplained night sweats Pt states has had for years with no etiology identified. Exercise / Class Metabolic Activity III < 4 Walking/Shop/Light housework (Denies CP or SOB with stairs, but does not do 2/2 leg pain) Past Family History Family History Father Family history of stomach cancer Uncle Family history of cancer FAMILY HISTORY OF CANCER - UNCLE - [employer] FAMILY HISTORY OF CANCER - AUNT - ? KIND Grandmother (Maternal) Family history of breast cancer Family history of bone cancer Other No pertinent family history Past Surgical History Surgical History History of cardiac cath 5-6 YR AGO - PR - NO STENTS (per pt report, this cath not noted in cardiology notes) 2017, NSTEMI. NO INTERVENTION. History of colonoscopy History of hernia surgery History of hysterectomy History of ovarian cystectomy Past Anesthesia History No Hx of Anesthesia Complications Pt reports her mother from complications from a vascular surgery, she is unsure if it was surgical or anesthesia related. History of PONV No Hx of PONV and No Hx of Motion Sickness STOP BANG Total 4 Social History Smoking Status: Former smoker tobacco type: cigarettes Do You Dip or Chew Tobacco: No Smoking End Date: QUIT 2 YR AGO Hx Alcohol Use: No Hx Substance Use: Yes substance use type: marijuana Last Used Substance: Days (ago) Last Used Substance Other:: LAST USE 1 WEEK AGO, AVG USES A FEW TIMES PER WEEK FOR APPETITE STIMULATION Review of Systems Pt denies any recent chest pain, shortness of breath, palpitations, cough, fever or URI. +persistent baseline nausea/vomiting. Physical Exam Vital Signs BP: 109/69 P: 66bpm SPO2: 99% RA T: 98.2 F R: 16 ENMT Mouth: + dentures and + edentulous Thyromental Distance: < 3.5 Finger Breadths (3) Mallampati Class: I Neck normal visual inspection and + limited neck extension (pain with full extension) Respiratory normal respiratory effort Auscultation: lungs clear to auscultation bilaterally Cardiovascular Rate/Rhythm: regular rate and regular rhythm Heart Sounds: no murmur Vessels: no carotid bruit Extremities: no edema Testing Laboratory Results 01/14/19 11:37 01/14/19 01/14/19 11:37 11:37 PT 9.3 INR 0.9 APTT 23.9 Blood Type O Positive Antibody Screen NEGATIVE 01/05/19 SODIUM: 139 POTASSIUM: 4.3 CHLORIDE: 105 CO2: 28 BUN: 15 CREATININE: 0.76 GLUCOSE: 94 Electrocardiogram Date: 12/29/18 Sinus rhythm at 64 bpm with marked sinus arrhythmia with first-degree AV block. Possible left atrial enlargement. Compared with EKG of 12/16/2018, no significant changes found. Chest X-Ray Date: 12/29/18 FINDINGS: Old right seventh rib fracture is noted. There is no pneumothorax or pleural effusion. There is no consolidation or evidence for pulmonary edema. Cardiac size is normal. Mediastinal contours are normal. IMPRESSION: No acute cardiopulmonary findings. Echocardiogram Date: 01/12/19 EF: 60-65% Normal LV size and systolic function. No regional wall motion abnormalities. No left ventricular hypertrophy. No significant valvular abnormalities visualized. Cardiac Catheterization Date: 06/28/17 Mild to moderate nonobstructive coronary artery disease. 40% mid RCA disease. Normal intracardiac filling pressures. LV wall motion of normalities consistent with toxicity was cardiomyopathy on TTE.
--- NOTE | 2019-01-14 11:35 | PAT Medication Instructions ---
Medication Instructions Date of Service January 14, 2019 Home Medications atorvastatin 40 mg PO HS clonidine 1 patch TOPICAL DIRECTED losartan 100 mg PO QAM metoprolol succinate 100 mg PO BID multivitamin 1 tab PO DAILY sertraline 100 mg PO HS clopidogrel [Plavix] 75 mg PO QAM atorvastatin 40 mg tablet PO QPM ondansetron 4 mg disintegrating tablet PO .Take 1 SL q 6 hours promethazine 25 mg rectal suppository W[place] .INSERT 1 SUPPOSITORY sertraline 100 mg tablet PO .TAKE 1 TABLET QPM Continue as directed clonidine 1 patch TOPICAL DIRECTED ASK your prescriber and surgeon clopidogrel [Plavix] 75 mg PO DAILY DO NOT take the morning of surgery losartan 100 mg PO QAM multivitamin 1 tab PO DAILY promethazine 25 mg rectal suppository W[place] .INSERT 1 SUPPOSITORY Take morning of surgery With a small sip of water, OTHERWISE NOTHING TO EAT OR DRINK AFTER MIDNIGHT: metoprolol succinate 100 mg PO BID ondansetron 4 mg disintegrating tablet PO .Take 1 SL q 6 hours V (if needed) Take evening before surgery atorvastatin 40 mg PO HS metoprolol succinate 100 mg PO BID multivitamin 1 tab PO QAM sertraline 100 mg PO HS atorvastatin 40 mg tablet PO QPM ondansetron 4 mg disintegrating tablet PO .Take 1 SL q 6 hours (if needed) promethazine 25 mg rectal suppository WV .INSERT 1 SUPPOSITORY (if needed) sertraline 100 mg tablet PO .TAKE 1 TABLET QPM Other Notes If you have any questions please call us at [phone] or [phone] or [phone] or [phone]
[2019-01-14 12:59] LABS: Basophils # (auto) 0.09 K/uL (0-0.2); Basophils % (auto) 1.2 %; Eosinophils # (auto) 0.26 K/uL (0-0.5); Eosinophils % (auto) 3.6 %; Hematocrit (blood only) 39.5 % (37-47); Hemoglobin 13.3 g/dL (12.0-16.0); Lymphocytes # (auto) 3.04 K/uL (1.2-3.4); Mean Corpuscular Hgb Conc 33.7 g/dL (32-36); Mean Corpuscular Volume 92.1 fL (80-100); Mean Platelet Volume 9.7 fL (7.4-10.4); Monocytes # (auto) 0.51 K/uL (0.11-0.59); Monocytes % (auto) 7.1 %; Neutrophils # (auto) 3.33 K/uL (1.4-6.5); Neutrophils % (auto) 46.1 %; Platelet Count 353 K/uL (130-400); RDW Coefficient of Variation 12.6 % (11.5-14.5); RDW Standard Deviation 42.6 fL (36.4-46.3); Red Blood Count 4.29 M/uL (4.2-5.4); White Blood Count 7.23 K/uL (4.8-10.8)
[2019-01-14 13:07] LABS: INR 0.9 (0.9-1.1); Partial Thromboplastin Ratio 0.9; Partial Thromboplastin Time 23.9 Seconds (21.0-31.0); Prothrombin Time 9.3 Seconds (9.0-12.0)
--- NOTE | 2019-01-20 09:21 | History and Physical Report ---
DATE OF ADMISSION: 01/21/2019 CHIEF COMPLAINT: Neck pain, arm pain, trapezius pain, weakness, paresthesias, upper extremity and lower extremity weakness. She has cord compression at multiple levels of cervical spine. She is having elective spine surgery. She has failed conservative care. She is worsening over time, has been several years in duration. PAST MEDICAL HISTORY: Heart disease, high cholesterol, hypertension. No COPD, no carcinoma. PAST SURGICAL HISTORY: Hysterectomy, hernia repair. ALLERGIES: Negative. CURRENT MEDICATIONS: Metoprolol, losartan, aspirin, clonidine, vitamin, steroids. She has family history of heart disease, diabetes. SOCIAL HISTORY: She is . No alcohol, tobacco. 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 REVIEW OF SYSTEMS: On review she admits to neck pain, some joint pain, and gait abnormality. Denies fevers, sweats, chills. Denies any chest pain or shortness of breath. There is no nausea, vomiting. No urgency, frequency, dysuria. She has weakness, paresthesias, numbness, and tingling. OBJECTIVE: GENERAL: She is 5 feet 7, 138. Alert and oriented. VITAL SIGNS: Blood pressure 130/80, pulse 80, respiration 16. CARDIAC: Normal S1, S2, no S3. LUNGS: Clear to auscultation. No rales, rhonchi or wheezing. ABDOMEN: Soft, nontender. Bowel sounds present in all quadrants. NEUROLOGIC: Her facial and cranial nerves are intact. She has weakness of deltoid function, biceps and triceps function. She has hyperreflexia in the left. She has clonus as well Waldron sign, Lhermitte sign, and Spurling maneuver. Skin is intact. MRI has a spinal cord compression C4-7 cervical spine. Procedure included anterior cervical discectomy and fusion from 4-7 cervical spine with iliac crest bone graft.
[2019-01-21] MEDS ORDERED: LR 15ML/HR IV SCH (06:00)
[2019-01-21] MEDS ORDERED: SODIUM CHLORIDE 0.9% 1000ML IV SCH (06:00)
[2019-01-21] MEDS ORDERED: CEFAZOLIN 2000MG 2,000 MG/15 ML SYR IV SCH (06:00)
[2019-01-21] MEDS ORDERED: MIDAZOLAM HCL 1 MG/ML 2ML VIAL ONE (06:35)
[2019-01-21] MEDS ORDERED: HYDROmorphone INJ 2 MG/ML SYR/VIAL ONE (06:35)
[2019-01-21] MEDS ORDERED: fentaNYL citrate 100 MCG/2 ML VIAL ONE (06:35)
[2019-01-21] MEDS ORDERED: ROCURONIUM BROMIDE 10 MG/ML 5 ML VIAL ONE (06:42)
[2019-01-21] MEDS ORDERED: DEXAMETHASONE SOD INJ 4 MG/ML VIAL ONE (06:42)
[2019-01-21] MEDS ORDERED: SODIUM CHLORIDE 0.9% INJ 10 ML VIAL ONE (06:42)
[2019-01-21] MEDS ORDERED: ONDANSETRON INJ 2 MG/ML 2 ML VIAL ONE (06:42)
[2019-01-21] MEDS ORDERED: LIDOCAINE HCL 2% 2 ML VIAL/AMP(20MG/ML) INFIL ONE (06:42)
[2019-01-21] MEDS ORDERED: PROPOFOL IV EMULSION 10 MG/ML 20 ML VIAL IV ONE (06:42)
[2019-01-21] MEDS ORDERED: GELATIN SPONGE SZ 100 ONE ×2 (07:00→07:15)
[2019-01-21] MEDS ORDERED: BUPIVACAINE/EPINEPHRINE 0.5% MPF 1:200,000 30 ML VIAL ONE (07:00)
[2019-01-21] MEDS ORDERED: BACITRACIN INJ 50,000 UNIT VIAL ONE (07:01)
[2019-01-21] MEDS ORDERED: THROMBIN FOR SOLN 20000 UNIT KIT ONE (07:01)
[2019-01-21] MEDS ORDERED: ATROPINE SULFATE 0.1 MG/ML 10ML SYR IV PRN (07:13)
[2019-01-21] MEDS ORDERED: ePHEDrine sulfate 50 MG/ML AMP IV PRN (07:13)
[2019-01-21] MEDS ORDERED: PROMETHAZINE HCL 6.25 MG in SODIUM CHLORIDE 0.9% 50 ML IV PRN (07:13)
[2019-01-21] MEDS ORDERED: HYDROmorphone INJ 2 MG/ML SYR/VIAL IV PRN (07:13)
[2019-01-21] MEDS ORDERED: ONDANSETRON INJ 2 MG/ML 2 ML VIAL IV PRN (07:13)
[2019-01-21] MEDS ORDERED: fentaNYL citrate 100 MCG/2 ML VIAL IV PRN (07:13)
--- NOTE | 2019-01-21 07:20 | History & Physical Bridge Note ---
Date of Service January 21, 2019 History & Physical Bridge Note I have examined the patient, reviewed the History & Physical and in the interval since the performance of the History & Physical I have noted the following changes of clinical significance: no changes noted
[2019-01-21] MEDS ORDERED: NEOSTIGMINE METHYLSULFATE 5 MG/5 ML SYR ONE (07:50)
[2019-01-21] MEDS ORDERED: GLYCOPYRROLATE 0.2 MG/ML VIAL ONE (07:50)
--- NOTE | 2019-01-21 09:36 | Post Operative Brief Note ---
Immediate Post Op Note v1 Date of Surgery January 21, 2019 Pre & Post Diagnosis Operation Date: 01/21/19 07:30 Pre-Op Diagnosis: Cervical Cord Compression Post-Op Diagnosis: Cervical Cord Compression Procedure Operation Date: 01/21/19 07:30 Actual Procedures p C4-C5, C5-C6, C6-C7 Anterior Cervical Discectomy and Fusion with Left Iliac Crest Bone Graft(Left) - Prabhu Wells DO Surgeon Prabhu Wells DO Review Consultant franca Estimated Blood Loss 15 Findings Consistent with Post-Op Diagnosis Drains Suarez Catheter Complications none Disposition Accompanied Patient To Recovery: Yes Overlapping Procedure I was immediately available: during the entire case.
--- NOTE | 2019-01-21 09:41 | Fluoroscopy Report ---
FL spine 1V any level HISTORY: Postoperative evaluation. FLUOROSCOPY TIME: . FINDINGS: Intraoperative fluoroscopy was provided for the cervical spine. 2 fluoroscopic spot images were obtained. Findings consistent with image intensifier support for a cervical discectomy and fusio n. IMPRESSION: Fluoroscopy provided for a cervical discectomy and anterior fusion.. The above report was generated using voice recognition software. It may contain grammatical, syntax or spelling errors. Electronically signed by: Walt Fernandez M.D. 01/21/2019 9:38 AM
[2019-01-21] MEDS ORDERED: LABETALOL HCL IV 5 MG/ML 20ML IV ONE (09:56)
[2019-01-21] MEDS ORDERED: HydrALAZINE HCL 20 MG/ML VIAL ONE (10:29)
[2019-01-21] MEDS ORDERED: LABETALOL HCL IV 5 MG/ML 20ML IV STA (11:07)
[2019-01-21] MEDS ORDERED: HydrALAZINE HCL 20 MG/ML VIAL IM STA (11:10)
--- NOTE | 2019-01-21 11:20 | Anesthesiology Progress Note ---
Date of Service January 21, 2019 Anesthesia Post Procedure Vital Signs Vital Signs: Temp Pulse Pulse Resp BP Pulse Ox 01/21/19 11:05 36.4 C L 88 17 159/89 H 100 01/21/19 10:55 81 16 157/87 H 100 01/21/19 10:45 80 15 171/89 H 100 01/21/19 10:35 79 15 198/97 H 100 01/21/19 10:25 91 H 17 206/134 H 99 01/21/19 10:15 72 15 209/123 H 100 01/21/19 10:05 69 16 215/127 H 100 01/21/19 09:55 65 15 215/118 H 100 01/21/19 09:45 35.8 C L 84 14 197/115 H 100 01/21/19 06:20 36.8 C 59 L 20 127/83 99 Pain Intensity Anterior Neck: Pain Intensity: 0 Transfer of Care Handoff Completed per policy Notes Mental Status: alert / awake / arousable Patient Amnestic to Procedure: Yes Nausea / Vomiting: adequately controlled Pain: adequately controlled Airway Patency, RR, SpO2: stable & adequate BP & HR: stable & adequate Hydration State: stable & adequate Anesthetic Complications: no major complications apparent
[2019-01-21] MEDS ORDERED: PROMETHAZINE HCL 25 MG SUPP PR PRN (11:40)
[2019-01-21] MEDS ORDERED: RACEPINEPHRINE 2.25% NEBU SOLN 0.5 ML VIAL INH PRN (11:40)
[2019-01-21] MEDS ORDERED: NALOXONE HCL 0.4 MG/1 ML VIAL/CARP IV PRN (11:40)
[2019-01-21] MEDS ORDERED: LORazepam 0.5 MG/1 ML VIAL IV PRN (11:40)
[2019-01-21] MEDS ORDERED: HYDROmorphone INJ 0.5 MG/0.5 ML SYR IV PRN (11:40)
[2019-01-21] MEDS ORDERED: MAGNESIUM HYDROXIDE SUSP 30 ML UDC PO PRN (11:40)
[2019-01-21] MEDS ORDERED: DEXAMETHASONE SOD PHOSPHATE 8 MG in SYRINGE 0 ML IV PRN (11:40)
[2019-01-21] MEDS ORDERED: ACETAMINOPHEN 1,000 MG/100 ML VIAL IV PRN (11:40)
--- NOTE | 2019-01-21 12:30 | Hospitalist Consultation ---
Date of Consultation January 21, 2019 Assessment & Plan (1) S/P cervical discectomy: - s/p C4-C5, C5-C6, C6-C7 Anterior Cervical Discectomy and Fusion with Left Iliac Crest Bone Graft(Left) by Dr. Wells - Cont pain management, dvt proph of plavix for hx of TIA was held prior to surgery, continue to hold and resume after 24 hrs or per surgical team - Bedrest per primary team until otherwise specified - Allow diet per primary team - Neurochecks (2) Non-ST elevation myocardial infarction (NSTEMI) due to mismatch of myocardial oxygen supply and demand: (3) CAD (coronary artery disease): (4) Takotsubo cardiomyopathy: - Hx of such in 06/2017 however has since resolved with preserved EF at this time. - Cont Plavix 75 mg daily after at least 24 hrs or per primary team - Cont losartan, metoprolol succ, clonidine patch tomorrow am - May use hydralazine prn for elevated BP with parameters, if elevates likely secondary to anxiety or pain. Will monitor, stable currently. (5) HTN (hypertension): - Cont antihypertensives as listed above - BP 120/79 at bedside (6) Hx-TIA (transient ischemic attack): - Thought to have been due to an episode of MS. Hx of using injections for MS however then had further testing with CSF and pt reports no confirmed MS in her hx. - Continue plavix as above. (7) Intractable nausea and vomiting: (8) Marijuana dependence: (9) Anxiety: - Continue sertraline 100 mg PO HS - Marijuana use noted, would recommend cessation as possibly suffering from cyclical hyperemesis secondary to marijuana use. Zofran IV prn. - Recommend follows with outpt counseling/psychiatrist if does not already do so. (10) Kidney infection: (11) DVT prophylaxis: - Teds, ambulatory as per surgical team, resume plavix once surgically cleared, likely within 24 hrs. Supervising Physician Co-Signing Physician Notes The patient was seen and examined by me and I agree with the assessment and plan done by Tatiana Anand PA-C. The patient is alert and oriented with cervical collar in place. Lungs are clear. Heart rhythm is regular. Abdomen is benign. Extremities are unremarkable. History of Present Illness Reason for Consultation: BP control, Medical management Requesting Physician: Dr. Wells Attending Physician: Prabhu Wells, DO History of Present Illness This is a 53 yo F with PMHx of CAD, NSTEMI, CHF secondary to Takasubo cardiomyopathy in 06/2017, now with improved and preserved EF, HTN, renal artery stenosis, TIA with potential that these episodes were possible MS, on plavix chronically, chronic N/V, marijuana use, remote hx of cigarrette smoking 2=-3 ppd x 25 yrs, quit 8 yrs ago, diverticulitis, R kidney infections, thyroid nodules who underwent elective anterior cervical discectomy by Dr. Wells on 01/21/19. The patient is doing well overall but has complaints of right thumb and pointer fnger numbness which waxes and wanes. She also reports being hungry and is requesting a meal. Pt notes her pain is well controlled other than the Left hip and recently took some pain medication, she denies any neck pain or discomfort. is present at bedside. Long discussion was held regarding the patient and hx of night sweats and flushing. They are concerned this requires more workup, and have been following with PCP and neurology as an outpatient for more workup. She admits to using marijuana twice daily to control nausea, increase appetite, reduce pain. Allergies Allergy/AdvReac Type Severity Reaction Status Date / Time sulfamethoxazole Allergy Severe N/V Verified 01/21/19 06:06 [From Bactrim] trimethoprim [From Bactrim] Allergy Severe N/V Verified 01/21/19 06:06 doxycycline Allergy Unknown hives and Verified 01/21/19 06:06 vomitting Iodinated Contrast- Oral and Allergy Unknown GIANT Verified 01/21/19 06:06 IV Dye HIVES , VOMITTING, BODY FEELS HOT latex Allergy Unknown RASH Verified 01/21/19 06:06 meperidine Allergy Unknown HIVES, Verified 01/21/19 06:06 VOMITING prochlorperazine Allergy Unknown N/V, Verified 01/21/19 06:06 ITCHINESS strawberry Allergy Unknown HIVES Verified 01/21/19 06:06 tomato Allergy Unknown HIVES Verified 01/21/19 06:06 iodine Allergy Verified 01/21/19 06:06 Green Marques Allergy Unknown HIVES Uncoded 01/21/19 06:06 Hernandez Beans Allergy Unknown HIVES Uncoded 01/21/19 06:06 Doxycycline Hyclate Allergy Uncoded 01/21/19 06:06 Imperim Allergy Uncoded 01/21/19 06:06 Home Medications Home Medications Medication Instructions Recorded Confirmed Type atorvastatin 40 mg PO HS 12/16/18 01/21/19 History clonidine 1 patch TOPICAL DIRECTED 12/16/18 01/21/19 History losartan 100 mg PO QAM 12/16/18 01/21/19 History metoprolol succinate 100 mg PO BID 12/16/18 01/21/19 History multivitamin 1 tab PO DAILY 12/16/18 01/21/19 History sertraline 100 mg PO HS 12/16/18 01/21/19 History clopidogrel [Plavix] 75 mg PO DAILY 01/07/19 01/21/19 History ondansetron 4 mg disintegrating 4 mg PO .Take 1 SL q 6 hours PRN 01/12/19 01/21/19 History tablet #30 tab promethazine 25 mg rectal 25 mg [place] .INSERT 1 SUPPOSITORY PRN 01/12/19 01/21/19 History suppository #1 ea Patient History Medical History Renal artery stenosis (Chronic) Anxiety Congestive heart failure, acute (Acute) 06/2017, admitted [facility]. Ruled 2/2 Takasubo CM. TIA (transient ischemic attack) 2 episodes of R sided tingling in 2019; MRI negative for acute changes but did show persistent multiple foci in the white matter, similar to 2017 study. Per neuro eval 12/31/18, likely TIAs but considered possible MS. ASA was switched to Plavix, currently on hold for surgery. HTN (hypertension) (Acute) NSTEMI (non-ST elevated myocardial infarction) (Acute) 2017 [facility]. Cath performed showed mild to moderate non-obstructive CAD. Takotsubo cardiomyopathy (Resolved) 2017. Admitted [facility], full cardiac workup including cath. EF at the time 40%, now resolved to 60-65% on echo 2018. CAD (coronary artery disease) Mild-moderate non-obstructive Carotid stenosis < 50% stenosis B/L per US 12/16/18 Chronic nausea and vomiting. Uses Zofran and marijuana to treat. Diverticulitis History of stomach ulcers Kidney infection CURRENT , RIGHT (ED [facility] LAST WEEK). JUST FINISHED ABX. X4 INFECTION OVER LAST 2 YRS Neck problem 2 BULGING DISCS/1 DETERIORIATING AND PUSHING ON NERVE SUPPLY LIMITED ROM WHEN TURNS NECK TO RIGHT SIDE Thyroid nodule MONITORS Unexplained night sweats Pt states has had for years with no etiology identified. Surgical History History of cardiac cath 5-6 YR AGO - [place] - NO STENTS (per pt report, this cath not noted in cardiology notes) 2017, NSTEMI. NO INTERVENTION. History of colonoscopy History of hernia surgery History of hysterectomy History of ovarian cystectomy Family History Father Family history of stomach cancer Uncle Family history of cancer FAMILY HISTORY OF CANCER - UNCLE - [employer] FAMILY HISTORY OF CANCER - AUNT - ? 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 Beliefs That Will Affect Care: None marital status: Current Living Situation: Spouse and Family Other Information That Helps Us Care for You: No Feels Safe at Home: Yes Smoking Status: Former smoker Tobacco Type: cigarettes Do You Dip or Chew Tobacco: No Smoking End Date: QUIT 2 YR AGO Hx Alcohol Use: No Hx Substance Use: Yes substance use type: marijuana Last Used Substance: Days (ago) Last Used Substance Other:: LAST USE 1 WEEK AGO, AVG USES A FEW TIMES PER WEEK FOR APPETITE STIMULATION Review of Systems Review of Systems: Constitutional: No fever, sweats or chills Eyes: No diplopia, no worsening or blurred vision ENT: normal hearing, no trouble swallowing Respiratory: No cough, sputum, dyspnea at rest or on exertion Cardiovascular: No chest pain, tightness or palpitations Abdomen: No pain, nausea, vomiting, diarrhea or constipation Musculoskeletal: No joint pain, calf pain, swelling Neurologic: + numbness in the R thumb and pointer finger, otherwise No weakness, numbness/tingling, or balance problems Psychiatric: No anxiety or depression Skin: No rash or itch Physical Exam Physical Exam: General: awake, alert, no apparent distress Head: Normocephalic, atraumatic ENT: PERRL, EOMI, + wearing neck brace, bandage C/d/i, no carotid bruits, no pharyngeal exudate, mucous membranes moist Chest: Clear to auscultation, on room air, no adventitious breath sounds Cardiac: Regular rate and rhythm, no murmur, no JVD, normal peripheral pulses, good capillary refill Abdominal: NABS x 4 quadrants, soft, nontender to palpation, no rebound, guarding or tenderness Extremities: Normal inspection, no peripheral edema or erythema, calfs nontender to palpation Psych: Normal mood and affect Neuro: AAO x 3, strength intact bilaterally and related 5/5, no motor deficits, speech is clear, no peripheral sensory deficits Results & Data Vital Signs (Past 12 Hours) Vital Signs Temp Pulse Pulse Resp BP Pulse Ox 01/21/19 11:50 91 H 16 100 01/21/19 11:25 36.4 C L 89 17 149/84 H 98 01/21/19 11:15 36.4 C L 90 17 153/93 H 99 01/21/19 11:05 36.4 C L 88 17 159/89 H 100 01/21/19 10:55 81 16 157/87 H 100 01/21/19 10:45 80 15 171/89 H 100 01/21/19 10:35 79 15 198/97 H 100 01/21/19 10:25 91 H 17 206/134 H 99 01/21/19 10:15 72 15 209/123 H 01/21/19 10:05 69 16 215/127 H 100 01/21/19 09:55 65 15 215/118 H 100 01/21/19 09:45 35.8 C L 84 14 197/115 H 100 01/21/19 06:20 36.8 C 59 L 20 127/83 99 PG Care Time/CCT Total # of Minutes Spent Total Time Spent with Patient: Total time spent is greater than 50% in coordination of care (as documented) at patient's floor/unit and/or counseling patient:
[2019-01-21] MEDS: SODIUM CHLORIDE 0.9% 1000ML 1,000 ML IV SCH ×2 (12:31→23:32)
--- NOTE | 2019-01-21 15:39 | Operative Report ---
DATE OF OPERATION: 01/21/2019 PREOPERATIVE DIAGNOSIS: Spinal cord compression of cervical spine, C4-C5, C5-C6 and C6-C7 cervical spine. POSTOPERATIVE DIAGNOSIS: Spinal cord compression of cervical spine, C4-C5, C5-C6 and C6-C7 cervical spine. PROCEDURE: Includes an anterior cervical decompression of spinal cord, anterior cervical discectomy at C4-C5, C5-C6, and C6-C7, anterior cervical discectomy and fusion C4-C5, C5-C6 and C6-C7, left iliac crest bone graft. Insertion of interbody devices at C4-C5, C5-C6 and C6-C7, augmented with structural autograft at C4-C5, C5-C6 and C6-C7. BLOOD LOSS: 15 mL. SURGEON: Prabhu Wells DO. CRANKSHAFT STRAIGHTENER: Philip Winston PA-C. DESCRIPTION OF PROCEDURE: The patient was taken to the operating room. We carefully marked her in the holding area and identified her and all's consent signed. She was brought back to the operating room, general intubated anesthetic provided to the patient, placed prone, prepped and draped sterile. After a formal timeout was taken, we made a skin incision, fascial incision. I was able to get to the spinal canal in this case the anterior aspect of vertebral bodies fairly readily. I used a cross table lateral radiograph to verify the C5-C6 interval. I did a formal discectomy at C5-C6 of the cervical spine with a 15 blade, curettes, pituitaries, I was back in through the posterior longitudinal ligament. Foraminotomies provided as well. I went down to C6-C7, did the same exact technique, cleaned out that interspace; up at C4-C5, cleaned out that interspace. I was pleased with the decompression portion of the procedure. I then measured the vacated discectomy sites. I then went to the left iliac crest, harvested structural autograft to be placed into the discectomy sites at C4-C5, C5-C6, and C6-C7. This was packed along into a PEEK device by the [employer] inserted at C4-C5, C5-C6 and C6-C7. Screws were placed up and down at each level, securing the fixation. It was also augmented with DBM (demineralized bone matrix). We tightened down the construct, irrigated. Took some x-rays, perfectly in good position. Began our closure over a [place] drain. The cervical spine and iliac crest closed in step by step fashion as well. Sterile dressings applied. The patient returned to PACU stable. There were no apparent complications. A collar was placed as well. Sponge and needle count correct at the close. Bone graft used was structural autograft and demineralized bone matrix. No complications. I attest to the content of the Intraoperative Record and any orders documented therein. Any exception s are noted below.
[2019-01-21] MEDS: CEFAZOLIN 2000MG 2,000 MG/15 ML SYR IV SCH ×2 (16:17→23:31)
[2019-01-21] MEDS: CHECK CLONIDINE PATCH PLACEMENT SCH ×2 (16:17→23:31)
[2019-01-21] MEDS: OXYCODONE HCL IR 5 MG TAB (IMMEDIATE RELEASE) PO PRN (20:49)
[2019-01-21] MEDS: DOCUSATE SODIUM 100 MG CAP PO SCH (20:49)
[2019-01-21] MEDS ORDERED: ATORVASTATIN 40 MG TAB PO SCH (21:00)
[2019-01-21] MEDS ORDERED: SERTRALINE HCL 100 MG TABLET PO SCH (21:00)
[2019-01-21] MEDS: METOPROLOL SUCC 50MG EXT REL TAB PO SCH (21:30)
[2019-01-21] MEDS ORDERED: ALUMINUM/MAGNESIUM SUSP 30 ML UDC PO STA (21:58)
[2019-01-21] MEDS ORDERED: ALUMINUM/MAGNESIUM SUSP 30 ML UDC ONE (22:01)
[2019-01-21] MEDS: ONDANSETRON INJ 2 MG/ML 2 ML VIAL IV PRN (23:44)
[2019-01-22] MEDS: CHECK CLONIDINE PATCH PLACEMENT SCH (07:20)
[2019-01-22] MEDS: CEFAZOLIN 2000MG 2,000 MG/15 ML SYR IV SCH (07:26)
[2019-01-22] MEDS: OXYCODONE HCL IR 5 MG TAB (IMMEDIATE RELEASE) PO PRN ×2 (07:26→12:29)
[2019-01-22] MEDS: ONDANSETRON INJ 2 MG/ML 2 ML VIAL IV PRN (07:26)
[2019-01-22] MEDS ORDERED: CLOPIDOGREL BISULFATE 75 MG TAB PO SCH (09:00)
[2019-01-22] MEDS ORDERED: LOSARTAN POTASSIUM 50 MG TAB PO SCH (09:00)
[2019-01-22] MEDS: METOPROLOL SUCC 50MG EXT REL TAB PO SCH (09:07)
[2019-01-22] MEDS: DOCUSATE SODIUM 100 MG CAP PO SCH (09:08)
--- NOTE | 2019-01-22 10:31 | Anesthesiology Progress Note ---
Date of Service January 22, 2019 Anesthesia Post Procedure Vital Signs Vital Signs: Temp Pulse Pulse Resp BP BP Pulse Ox 01/22/19 09:49 36.5 C 70 16 150/91 H 95 01/22/19 09:00 36.5 C 70 16 150/91 H 95 01/22/19 07:15 01/22/19 06:50 37.0 C 69 18 158/85 H 95 01/22/19 06:45 37.0 C 70 16 152/84 H 98 01/22/19 04:45 36.7 C 74 16 153/81 H 98 01/22/19 03:59 67 16 100 01/22/19 02:45 36.8 C 63 16 149/82 H 100 01/22/19 00:45 36.8 C 73 16 143/81 H 98 01/22/19 00:01 82 18 99 01/21/19 23:40 167/84 H 01/21/19 22:45 36.8 C 90 16 155/79 H 99 01/21/19 21:30 71 138/78 01/21/19 20:45 36.9 C 81 16 109/69 99 01/21/19 19:09 71 16 98 01/21/19 18:45 36.9 C 82 16 119/77 100 01/21/19 16:45 36.6 C 72 16 129/72 99 01/21/19 15:17 89 16 99 01/21/19 14:53 36.8 C 89 110/69 99 01/21/19 13:45 36.7 C 86 16 113/71 98 01/21/19 12:49 36.6 C 92 H 18 120/79 99 01/21/19 12:15 36.7 C 85 16 133/84 99 01/21/19 11:50 91 H 16 100 01/21/19 11:45 36.6 C 99 H 16 164/93 H 100 01/21/19 11:25 36.4 C L 89 17 149/84 H 98 01/21/19 11:15 36.4 C L 90 17 153/93 H 99 01/21/19 11:05 36.4 C L 88 17 159/89 H 100 01/21/19 10:55 81 16 157/87 H 100 01/21/19 10:45 80 15 171/89 H 100 01/21/19 10:35 79 15 198/97 H 100 Pulse Ox 01/22/19 09:49 01/22/19 09:00 01/22/19 07:15 96 01/22/19 06:50 01/22/19 06:45 01/22/19 04:45 01/22/19 03:59 01/22/19 02:45 01/22/19 00:45 01/22/19 00:01 01/21/19 23:40 01/21/19 22:45 01/21/19 21:30 01/21/19 20:45 01/21/19 19:09 01/21/19 18:45 01/21/19 16:45 01/21/19 15:17 01/21/19 14:53 01/21/19 13:45 01/21/19 12:49 01/21/19 12:15 01/21/19 11:50 01/21/19 11:45 100 01/21/19 11:25 01/21/19 11:15 01/21/19 11:05 01/21/19 10:55 01/21/19 10:45 01/21/19 10:35 Pain Intensity Anterior Neck: Pain Intensity: 2 Notes Mental Status: alert / awake / arousable and participated in evaluation Patient Amnestic to Procedure: Yes Nausea / Vomiting: adequately controlled Pain: adequately controlled Airway Patency, RR, SpO2: stable & adequate BP & HR: stable & adequate Hydration State: stable & adequate Anesthetic Complications: no major complications apparent
[2019-01-22 10:49] VITALS: BP 150/95; TEMP 97.9
[2019-01-22 11:25] VITALS: PULSE 65; O2SAT 96
--- NOTE | 2019-01-22 12:13 | Discharge Summary ---
Cyndie when she is alert, oriented, some nausea this morning I think secondary to the antibiotics; we have curtailed that. She is alert, oriented, no chest pain, shortness of breath. Taking p.o. Vital signs stable. ASSESSMENT: Status post multilevel cervical spine surgery postop nausea. PLAN: We will get her up and ambulatory here today. I think we still can get her discharged home. We will get up and ambulatory. She has a followup appointment. She has instructions, precautions given to her in the office and by the hospital personnel. Except for the postop nausea with Ancef as an antibiotic she has had an uneventful course.
[2019-01-23] MEDS ORDERED: BISACODYL 5 MG TABEC PO PRN (09:53)
[2019-01-26] MEDS ORDERED: cloNIDine HCL 0.1 MG/24 HR TRANSDERM SYS TD SCH (09:00)
== END 2019-01-22 13:03 | disposition home or self-care (01) ==
LOC: 3E 05:45 → ASU 05:45

== ENCOUNTER 2019-03-27 18:04 | Observation (INO) ==
[2019-03-27] MEDS ORDERED: ONDANSETRON INJ 2 MG/ML 2 ML VIAL IV STA (18:29)
[2019-03-27] MEDS ORDERED: HydrALAZINE HCL 20 MG/ML VIAL IV STA ×2 (18:29→19:31)
[2019-03-27] MEDS ORDERED: DiphenhydrAMINE HCL 50 MG/ML VIAL IV STA (18:29)
[2019-03-27] MEDS ORDERED: MoRPHine SULFATE 4 MG/ML 1 ML CARP\\VIAL IV PRN (18:29)
[2019-03-27] MEDS ORDERED: methylPREDNISolone 60 MG in SYRINGE 1 ML IV STA (18:29)
[2019-03-27] MEDS ORDERED: SODIUM CHLORIDE 0.9% 500 ML IV SCH (18:30)
--- NOTE | 2019-03-27 18:56 | Emergency Department Note ---
Entered by Marco Murphy acting as a scribe for Armin Tariq MD History of Present Illness General Chief complaint: Hypertension Stated complaint: HIGH BLOOD PRESSURE, VOMITING Time Seen by Provider: 03/27/19 18:23 Source: patient History of Present Illness Provider complaint: Flank pain Onset (ago): hour(s) (This morning ) Location: back and right Pain Consistency: + constant Maximum Pain Intensity: 10 Current Pain Intensity: 5 Relieved By: + none Exacerbated By: + none Associated symptoms: + fever/chills (No fevers), + nausea/vomiting and + other (Positive urinary symptoms ); no chest pain The patient is a 54 year old female who presents to the Emergency Room with complaints of constant right flank pain that started this morning but has progressively worsened throughout the day. The patient rates the pain as a 5/10 and notes nothing makes her symptoms better or worse. The patient states that about an hour prior to arrival, she started vomiting as well. The patient repor ts she has some chills and feels like she needs to urinate more frequently. The patient states she did take and keep down all of her medication this morning including her blood pressure medicine, but she still arrived to the ED hypertensive at 215/126. The patient has a history of renal artery narrowing but no history of kidney stones. The patient denies any abdominal pain, fevers, cough or chest pain. Home Medications Home Medications Medication Instructions Recorded Confirmed Type atorvastatin 40 mg PO HS 12/16/18 03/27/19 History losartan 100 mg PO QAM 12/16/18 03/27/19 History metoprolol succinate 100 mg PO BID 12/16/18 03/27/19 History multivitamin 1 tab PO DAILY 12/16/18 03/27/19 History clopidogrel [Plavix] 75 mg PO DAILY 01/07/19 03/27/19 History promethazine 25 mg rectal 25 mg MN Q12H PRN #1 ea 01/12/19 03/27/19 History suppository clonidine 0.1 mg/24 hr weekly 1 patch TOPICAL WEEKLY #4 ea 02/02/19 03/27/19 Rx transdermal patch sertraline 100 mg tablet 100 mg PO HS #90 tab 02/03/19 03/27/19 Rx ondansetron HCl [Zofran] 4 mg PO TID PRN 03/27/19 03/27/19 History Allergies Allergy/AdvReac Type Severity Reaction Status Date / Time sulfamethoxazole Allergy Severe N/V Verified 02/03/19 10:31 [From Bactrim] trimethoprim [From Bactrim] Allergy Severe N/V Verified 02/03/19 10:31 doxycycline Allergy Unknown hives and Verified 02/03/19 10:31 vomitting Iodinated Contrast- Oral and Allergy Unknown GIANT Verified 02/03/19 10:31 IV Dye HIVES , VOMITTING, BODY FEELS HOT latex Allergy Unknown RASH Verified 02/03/19 10:31 meperidine Allergy Unknown HIVES, Verified 02/03/19 10:31 VOMITING prochlorperazine Allergy Unknown N/V, Verified 02/03/19 10:31 ITCHINESS strawberry Allergy Unknown HIVES Verified 02/03/19 10:31 tomato Allergy Unknown HIVES Verified 02/03/19 10:31 iodine Allergy . Verified 03/27/19 20:02 Green Marques Allergy Unknown HIVES Uncoded 02/03/19 10:31 Hernandez Beans Allergy Unknown HIVES Uncoded 02/03/19 10:31 Doxycycline Hyclate Allergy . Uncoded 03/27/19 20:02 Imperim Allergy . Uncoded 03/27/19 20:02 Past Med/Surg History Medical History Otalgia (Resolved) LEFT History of vomiting (Chronic) History of nausea (Chronic) History of myocardial infarction History of gastritis (Chronic) History of diverticulitis of colon (Chronic) Elevated serum creatinine NSTEMI (non-ST elevated myocardial infarction) 2017 [facility]. Cath performed showed mild to moderate non-obstructive CAD. Takotsubo cardiomyopathy (Resolved) 2017. Admitted [facility], full cardiac workup including cath. EF at the time 40%, now resolved to 60-65% on echo 2019. HTN (hypertension) (Chronic) History of stomach ulcers (Chronic) Carotid stenosis (Chronic) < 50% stenosis B/L per [place] 12/16/18 Unexplained night sweats (Chronic) Pt states has had for years with no etiology identified. CAD (coronary artery disease) (Chronic) Mild-moderate non-obstructive Pulmonary emphysema (Chronic) Multiple thyroid nodules (Chronic) Hyperlipidemia (Chronic) Dysphagia (Chronic) Diverticulosis (Chronic) Demyelinating disorder (Chronic) DJD (degenerative joint disease), cervical (Chronic) Cervical radiculopathy (Chronic) Accelerated essential hypertension (Chronic) Multiple sclerosis (Suspected) Transient cerebrovascular ischemia (Suspected) CAD (coronary atherosclerotic disease) (Chronic) Anxiety disorder (Chronic) Renal artery stenosis (Chronic) Congestive heart failure, acute (Resolved) 06/2017, admitted [facility]. Ruled 2/2 Takasubo CM. Gastritis (Chronic) Acute UTI (Resolved) Arm numbness (Resolved) Diverticulitis (Resolved) Grief reaction (Resolved) Kidney infection (Resolved) CURRENT , RIGHT (ED [facility] LAST WEEK). JUST FINISHED ABX. X4 INFECTION OVER LAST 2 YRS Pulmonary edema cardiac cause (Resolved) Rash of unknown cause (Resolved) UTI symptoms (Resolved) Weight loss, unintentional (Resolved) History of hypotension (Inactive) Cervical disc disorder Multiple sclerosis of cord Surgical History H/O cervical spine surgery ACDF C4-7 Dr. [place] History of cardiac cath 5-6 YR AGO - [place] - NO STENTS (per pt report, this cath not noted in cardiology notes) 2017, NSTEMI. NO INTERVENTION. History of colonoscopy History of hernia surgery History of hysterectomy History of ovarian cystectomy Family History Father Family history of stomach cancer Stroke Myocardial infarction Malignant neoplasm of esophagus Stomach cancer Uncle Family history of cancer FAMILY HISTORY OF CANCER - UNCLE - VOCAL [employer] FAMILY HISTORY OF CANCER - AUNT - ? 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 and A total of 10 systems reviewed and were otherwise negative Physical Exam Vital Signs Vital Signs - 24 hr 03/27/19 18:17 03/27/19 18:45 03/27/19 19:01 Temperature Temperature Source Oral Sepsis Recent Fever Within 48 Hours No Sepsis New/Unexplained Change in Mental Status No Sepsis Action Taken by Nursing No Action Required Pulse Rate 65 67 Pulse Rate [Right] Pulse Rate from SpO2 Sensor 64 Respiratory Rate 22 13 Respiratory Effort / Characteristics Non-Labored Spontaneous Respiratory Depth Normal Blood Pressure 215/126 H 184/114 H Blood Pressure [Right Arm] Blood Pressure Mean 155 137 Blood Pressure Mean [Right Arm] Blood Pressure Position Sitting Blood Pressure Position [Right Arm] Pulse Oximetry 100 100 100 Oxygen Delivery Method Room Air Room Air 03/27/19 19:05 03/27/19 19:10 03/27/19 19:11 Temperature Temperature Source Sepsis Recent Fever Within 48 Hours Sepsis New/Unexplained Change in Mental Status Sepsis Action Taken by Nursing Pulse Rate 85 58 L 70 Pulse Rate [Right] Pulse Rate from SpO2 Sensor 71 60 69 Respiratory Rate 20 14 20 Respiratory Effort / Characteristics Respiratory Depth Blood Pressure 187/109 H Blood Pressure [Right Arm] Blood Pressure Mean 135 Blood Pressure Mean [Right Arm] Blood Pressure Position Blood Pressure Position [Right Arm] Pulse Oximetry 100 98 99 Oxygen Delivery Method 03/27/19 19:13 03/27/19 19:16 03/27/19 19:20 Temperature Temperature Source Sepsis Recent Fever Within 48 Hours Sepsis New/Unexplained Change in Mental Status Sepsis Action Taken by Nursing Pulse Rate 73 74 69 Pulse Rate [Right] Pulse Rate from SpO2 Sensor 69 73 72 Respiratory Rate 21 18 18 Respiratory Effort / Characteristics Respiratory Depth Blood Pressure 198/132 H 189/121 H Blood Pressure [Right Arm] Blood Pressure Mean 154 143 Blood Pressure Mean [Right Arm] Blood Pressure Position Blood Pressure Position [Right Arm] Pulse Oximetry 100 100 100 Oxygen Delivery Method 03/27/19 19:21 03/27/19 19:30 03/27/19 19:31 Temperature Temperature Source Sepsis Recent Fever Within 48 Hours Sepsis New/Unexplained Change in Mental Status Sepsis Action Taken by Nursing Pulse Rate 65 63 62 Pulse Rate [Right] Pulse Rate from SpO2 Sensor 68 63 66 Respiratory Rate 15 11 L 19 Respiratory Effort / Characteristics Respiratory Depth Blood Pressure 198/117 H 207/141 H Blood Pressure [Right Arm] Blood Pressure Mean 144 163 Blood Pressure Mean [Right Arm] Blood Pressure Position Blood Pressure Position [Right Arm] Pulse Oximetry 100 100 100 Oxygen Delivery Method 03/27/19 19:40 03/27/19 19:46 03/27/19 19:50 Temperature Temperature Source Sepsis Recent Fever Within 48 Hours Sepsis New/Unexplained Change in Mental Status Sepsis Action Taken by Nursing Pulse Rate 67 68 75 Pulse Rate [Right] Pulse Rate from SpO2 Sensor 69 67 75 Respiratory Rate 19 16 14 Respiratory Effort / Characteristics Respiratory Depth Blood Pressure 196/124 H Blood Pressure [Right Arm] Blood Pressure Mean 148 Blood Pressure Mean [Right Arm] Blood Pressure Position Blood Pressure Position [Right Arm] Pulse Oximetry 100 100 99 Oxygen Delivery Method 03/27/19 20:00 03/27/19 20:01 03/27/19 20:10 Temperature Temperature Source Sepsis Recent Fever Within 48 Hours Sepsis New/Unexplained Change in Mental Status Sepsis Action Taken by Nursing Pulse Rate 78 84 82 Pulse Rate [Right] Pulse Rate from SpO2 Sensor 77 81 80 Respiratory Rate 16 12 19 Respiratory Effort / Characteristics Respiratory Depth Blood Pressure 205/123 H Blood Pressure [Right Arm] Blood Pressure Mean 150 Blood Pressure Mean [Right Arm] Blood Pressure Position Blood Pressure Position [Right Arm] Pulse Oximetry 99 98 98 Oxygen Delivery Method 03/27/19 20:16 03/27/19 20:20 03/27/19 20:24 Temperature 36.6 C Temperature Source Oral Sepsis Recent Fever Within 48 Hours Sepsis New/Unexplained Change in Mental Status Sepsis Action Taken by Nursing Pulse Rate 80 91 H Pulse Rate [Right] 78 Pulse Rate from SpO2 Sensor 80 86 Respiratory Rate 13 17 16 Respiratory Effort / Characteristics Non-Labored Spontaneous Respiratory Depth Normal Blood Pressure 185/135 H Blood Pressure [Right Arm] 185/135 H Blood Pressure Mean 151 Blood Pressure Mean [Right Arm] 151 Blood Pressure Position Blood Pressure Position [Right Arm] Lying Pulse Oximetry 98 97 98 Oxygen Delivery Method Room Air 03/27/19 20:30 03/27/19 20:31 03/27/19 20:40 Temperature Temperature Source Sepsis Recent Fever Within 48 Hours Sepsis New/Unexplained Change in Mental Status Sepsis Action Taken by Nursing Pulse Rate 81 79 81 Pulse Rate [Right] Pulse Rate from SpO2 Sensor 82 79 80 Respiratory Rate 20 25 H 19 Respiratory Effort / Characteristics Respiratory Depth Blood Pressure 176/119 H Blood Pressure [Right Arm] Blood Pressure Mean 138 Blood Pressure Mean [Right Arm] Blood Pressure Position Blood Pressure Position [Right Arm] Pulse Oximetry 98 97 97 Oxygen Delivery Method 03/27/19 20:46 03/27/19 20:50 03/27/19 21:18 Temperature Temperature Source Sepsis Recent Fever Within 48 Hours Sepsis New/Unexplained Change in Mental Status Sepsis Action Taken by Nursing Pulse Rate 77 84 85 Pulse Rate [Right] Pulse Rate from SpO2 Sensor 81 84 Respiratory Rate 15 14 16 Respiratory Effort / Characteristics Respiratory Depth Blood Pressure 189/132 H Blood Pressure [Right Arm] Blood Pressure Mean 151 Blood Pressure Mean [Right Arm] Blood Pressure Position Blood Pressure Position [Right Arm] Pulse Oximetry 95 96 Oxygen Delivery Method 03/27/19 21:19 03/27/19 21:21 03/27/19 21:30 Temperature Temperature Source Sepsis Recent Fever Within 48 Hours Sepsis New/Unexplained Change in Mental Status Sepsis Action Taken by Nursing Pulse Rate 79 84 81 Pulse Rate [Right] Pulse Rate from SpO2 Sensor 80 84 81 Respiratory Rate 16 14 16 Respiratory Effort / Characteristics Respiratory Depth Blood Pressure 188/115 H Blood Pressure [Right Arm] Blood Pressure Mean 139 Blood Pressure Mean [Right Arm] Blood Pressure Position Blood Pressure Position [Right Arm] Pulse Oximetry 96 96 95 Oxygen Delivery Method 03/27/19 21:31 03/27/19 21:40 03/27/19 21:46 Temperature Temperature Source Sepsis Recent Fever Within 48 Hours Sepsis New/Unexplained Change in Mental Status Sepsis Action Taken by Nursing Pulse Rate 80 83 86 Pulse Rate [Right] Pulse Rate from SpO2 Sensor 81 82 86 Respiratory Rate 21 13 23 Respiratory Effort / Characteristics Respiratory Depth Blood Pressure 174/109 H 174/99 H Blood Pressure [Right Arm] Blood Pressure Mean 130 124 Blood Pressure Mean [Right Arm] Blood Pressure Position Blood Pressure Position [Right Arm] Pulse Oximetry 95 95 97 Oxygen Delivery Method 03/27/19 21:50 03/27/19 22:00 03/27/19 22:01 Temperature Temperature Source Sepsis Recent Fever Within 48 Hours Sepsis New/Unexplained Change in Mental Status Sepsis Action Taken by Nursing Pulse Rate 81 78 81 Pulse Rate [Right] Pulse Rate from SpO2 Sensor 81 78 80 Respiratory Rate 19 19 16 Respiratory Effort / Characteristics Respiratory Depth Blood Pressure 164/106 H Blood Pressure [Right Arm] Blood Pressure Mean 125 Blood Pressure Mean [Right Arm] Blood Pressure Position Blood Pressure Position [Right Arm] Pulse Oximetry 97 97 97 Oxygen Delivery Method 03/27/19 22:15 03/27/19 22:16 Temperature Temperature Source Sepsis Recent Fever Within 48 Hours Sepsis New/Unexplained Change in Mental Status Sepsis Action Taken by Nursing Pulse Rate 79 72 Pulse Rate [Right] Pulse Rate from SpO2 Sensor 79 76 Respiratory Rate 17 22 Respiratory Effort / Characteristics Respiratory Depth Blood Pressure 172/105 H Blood Pressure [Right Arm] Blood Pressure Mean 127 Blood Pressure Mean [Right Arm] Blood Pressure Position Blood Pressure Position [Right Arm] Pulse Oximetry 97 96 Oxygen Delivery Method GENERAL: Patient is in moderate distress from pain. HEENT: No acute trauma, normocephalic atraumatic, mucous membranes moist, no nasal congestion, no scleral icterus. NECK: No stridor, no adenopathy, no meningismus, trachea is midline. LUNGS: Clear to auscultation bilaterally, no wheeze, no rhonchi, breath sounds equal. HEART: Without murmurs gallops or rubs, regular rate and rhythm. ABDOMEN: Soft, mildly tender to the RLQ, bowel sounds positive, no hernias, no peritonitis. BACK: Right flank discomfort to percussion. EXTREMITIES: No cyanosis or edema, full range of motion of all the joints without pain or difficulty, no signs for acute trauma. NEUROLOGIC: Oriented x 3, no acute motor or sensory deficits, no focal weakness. SKIN: No rash, no jaundice, moderate diaphoresis. Course 1825: Past medical records reviewed. The patient was evaluated in room A03, and a complete history and physical examination were performed. 2116: I reevaluated the patient and she is resting in bed. We discussed the treatment plan and she is agreeable. 2200: I spoke to Dr. Drake [facility] Hospitalist about the patient's case. He will be accepting the patient for further evaluation. Consultations Consultation #1: I spoke to Dr. Drake [facility] Hospitalist about the patient's case. He will be accepting the patient for further evaluation. Time: 22:01 Administered Medications Ioversol (Optiray 320 100ml) 91 ml IV ONCE PRN PRN Reason: Interaction Checking Stop: 03/31/19 21:03 Last Admin: 03/27/19 21:04 Dose: 91 ml Documented by: [id number] Morphine Sulfate (Morphine Sulfate) 4 mg IV Q15M PRN PRN Reason: Pain Stop: 04/10/19 18:28 Last Admin: 03/27/19 19:19 Dose: 4 mg Documented by: [id number] Discontinued Medications Diphenhydramine HCl (Benadryl) 50 mg IV NOW STA Stop: 03/27/19 18:30 Last Admin: 03/27/19 19:18 Dose: 50 mg Documented by: [id number] Hydralazine HCl (Hydralazine Hcl) 10 mg IV NOW STA Stop: 03/27/19 18:30 Last Admin: 03/27/19 19:18 Dose: 10 mg Documented by: [id number] Hydralazine HCl (Hydralazine Hcl) 10 mg IV NOW STA Stop: 03/27/19 19:32 Last Admin: 03/27/19 19:53 Dose: 10 mg Documented by: [id number] Methylprednisolone 60 mg/ (Syringe) 1.96 mls @ 1.5 mls/min IV NOW STA Stop: 03/27/19 18:30 Last Admin: 03/27/19 19:54 Dose: Not Given Documented by: [id number] Sodium Chloride (Nss) 500 mls @ 999 mls/hr IV .Q31M MIKE Stop: 03/27/19 19:00 Last Infusion: 03/27/19 20:39 Dose: 0 mls/hr Documented by: [id number] Admin: 03/27/19 19:19 Dose: 999 mls/hr Documented by: [id number] Promethazine HCl 12.5 mg/ (Sodium Chloride) 50.5 mls @ 202 mls/hr IV NOW STA Stop: 03/27/19 19:45 Last Infusion: 03/27/19 20:39 Dose: 0 mls/hr Documented by: [id number] Admin: 03/27/19 19:56 Dose: 202 mls/hr Documented by: [id number] Cefepime HCl (Maxipime) 2,000 mg in 20 mls @ 5 mls/min IV NOW STA; Protocol Stop: 03/27/19 19:35 Last Admin: 03/27/19 20:38 Dose: 5 mls/min Documented by: [id number] Methylprednisolone (Solumedrol) Confirm Administered Dose 125 mg .ROUTE .STK-MED ONE Stop: 03/27/19 19:48 Last Admin: 03/27/19 19:54 Dose: 60 mg Documented by: [id number] Nitroglycerin (Nitro-Bid 2%) 2 inch EXT NOW STA Stop: 03/27/19 21:15 Last Admin: 03/27/19 21:21 Dose: 2 inch Documented by: [id number] Ondansetron HCl (Zofran) 4 mg IV NOW STA Stop: 03/27/19 18:30 Last Admin: 03/27/19 19:19 Dose: 4 mg Documented by: [id number] Medical Decision Making Differential Diagnosis Differential Diagnosis includes: Uncontrolled hypertension, renal artery aneurysm or rupture, hydronephrosis, renal colic, renal failure, pyelonephritis, UTI, diverticulitis, and pneumonia, amongst others. Medical Records Attestation: I reviewed the patient's medical records. Home Medications Current Medication List: was personally reviewed by me Laboratory Data Attestation: I reviewed the patient's lab results. Result diagrams: 03/27/19 19:15 03/27/19 19:15 Lab Results 03/27/19 03/27/19 03/27/19 Range/Units 19:00 19:15 19:15 WBC 14.88 H (4.8-10.8) K/uL RBC 4.47 (4.2-5.4) M/uL Hgb 13.9 (12.0-16.0) g/dL Hct 40.4 (37-47) % MCV 90.4 (80-100) fL MCH 31.1 (25-34) pg MCHC 34.4 (32-36) g/dL RDW Std Deviation 45.1 (36.4-46.3) fL RDW Coeff of Jose Luis 13.7 (11.5-14.5) % Plt Count 378 (130-400) K/uL MPV 9.7 (7.4-10.4) fL Immature Gran % (Auto) 0.3 % Neut % (Auto) 73.8 % Lymph % (Auto) 18.7 % Spencer % (Auto) 5.0 % Eos % (Auto) 1.5 % Baso % (Auto) 0.7 % Immature Gran # (Auto) 0.05 H (0.00-0.02) K/uL Neut # (Auto) 10.99 H (1.4-6.5) K/uL Lymph # (Auto) 2.78 (1.2-3.4) K/uL Spencer # (Auto) 0.74 H (0.11-0.59) K/uL Eos # (Auto) 0.22 (0-0.5) K/uL Baso # (Auto) 0.10 (0-0.2) K/uL Sodium 142 (136-145) mmol/L Potassium 3.5 (3.5-5.1) mmol/L Chloride 113 H (98-107) mmol/L Carbon Dioxide 23 (21-32) mmol/L Anion Gap 6.0 (3-11) BUN 16 (7-18) mg/dl Creatinine 0.80 (0.6-1.2) mg/dl Est Cr Clr Drug Dosing Not Reportable Est GFR ( Amer) 97.6 Est GFR (Non-Af Amer) 84.2 BUN/Creatinine Ratio 20.3 H (10-20) Glucose 152 H (70-99) mg/dl POC Glucose 141 H (70-99) Lactate (0.4-2.0) mmol/L Calcium 9.9 (8.5-10.1) mg/dl Total Bilirubin 0.3 (0.2-1) mg/dl AST 23 (15-37) U/L ALT 22 (12-78) U/L Alkaline Phosphatase 111 (45-117) U/L Troponin I < 0.015 (0-0.045) ng/ml Total Protein 8.5 H (6.4-8.2) gm/dl Albumin 4.2 (3.4-5.0) gm/dl Globulin 4.3 H (2.5-4.0) gm/dl Albumin/Globulin Ratio 1.0 (0.9-2) Lipase 107 (73-393) U/L Urine Color Urine Appearance (Clear) Urine pH (4.5-7.5) Ur Specific [place] (1.000-1.030) Urine Protein (Negative) Urine Glucose (UA) (Negative) Urine Ketones (Negative) Urine Blood (Negative) Urine Nitrite (Negative) Urine Bilirubin (Negative) Urine Urobilinogen (Negative) Ur Leukocyte Esterase (Negative) Urine WBC (Auto) (0-5) /hpf Urine RBC (Auto) (0-4) /hpf U Hyaline Cast (Auto) (0-5) /lpf U Epithel Cells (Auto) (0-5) /lpf Urine Bacteria (Auto) (Negative) 03/27/19 03/27/19 Range/Units 19:15 20:20 WBC (4.8-10.8) K/uL RBC (4.2-5.4) M/uL Hgb (12.0-16.0) g/dL Hct (37-47) % MCV (80-100) fL MCH (25-34) pg MCHC (32-36) g/dL RDW Std Deviation (36.4-46.3) fL RDW Coeff of Jose Luis (11.5-14.5) % Plt Count (130-400) K/uL MPV (7.4-10.4) fL Immature Gran % (Auto) % Neut % (Auto) % Lymph % (Auto) % Spencer % (Auto) % Eos % (Auto) % Baso % (Auto) % Immature Gran # (Auto) (0.00-0.02) K/uL Neut # (Auto) (1.4-6.5) K/uL Lymph # (Auto) (1.2-3.4) K/uL Spencer # (Auto) (0.11-0.59) K/uL Eos # (Auto) (0-0.5) K/uL Baso # (Auto) (0-0.2) K/uL Sodium (136-145) mmol/L Potassium (3.5-5.1) mmol/L Chloride (98-107) mmol/L Carbon Dioxide (21-32) mmol/L Anion Gap (3-11) BUN (7-18) mg/dl Creatinine (0.6-1.2) mg/dl Est Cr Clr Drug Dosing Est GFR ( Amer) Est GFR (Non-Af Amer) BUN/Creatinine Ratio (10-20) Glucose (70-99) mg/dl POC Glucose (70-99) Lactate 1.7 (0.4-2.0) mmol/L Calcium (8.5-10.1) mg/dl Total Bilirubin (0.2-1) mg/dl AST (15-37) U/L ALT (12-78) U/L Alkaline Phosphatase (45-117) U/L Troponin I (0-0.045) ng/ml Total Protein (6.4-8.2) gm/dl Albumin (3.4-5.0) gm/dl Globulin (2.5-4.0) gm/dl Albumin/Globulin Ratio (0.9-2) Lipase (73-393) U/L Urine Color Yellow Urine Appearance Clear (Clear) Urine pH 6.5 (4.5-7.5) Ur Specific [place] 1.016 (1.000-1.030) Urine Protein 1+ H (Negative) Urine Glucose (UA) Negative (Negative) Urine Ketones 1+ H (Negative) Urine Blood 1+ H (Negative) Urine Nitrite Negative (Negative) Urine Bilirubin Negative (Negative) Urine Urobilinogen Negative (Negative) Ur Leukocyte Esterase Negative (Negative) Urine WBC (Auto) 1-5 (0-5) /hpf Urine RBC (Auto) 10-30 H (0-4) /hpf U Hyaline Cast (Auto) 1-5 (0-5) /lpf U Epithel Cells (Auto) >30 H (0-5) /lpf Urine Bacteria (Auto) Negative (Negative) Imaging Data Radiologist's Impression: Radiology results as stated below per my review and the radiologist's interpretation: XR chest 1V portable HISTORY: 54 years-old Female r back or lung pain acute atypical chest pain COMPARISON: Chest radiograph 12/29/2018 TECHNIQUE: Portable AP view of the chest FINDINGS: Cardiomediastinal and hilar silhouettes are within normal limits. Healed remote fracture of the posterior lateral right seventh rib. Postoperative changes of the cervical spine. Degenerative changes of the shoulders and spine. No pneumothorax, pleural effusion, focal airspace consolidation or overt pulmonary edema. IMPRESSION: No acute process. The above report was generated using voice recognition software. It may contain grammatical, syntax or spelling errors. Electronically signed by: Anam Jimenez M.D. 03/27/2019 7:01 PM ABDOMEN AND PELVIS CT WITH IV CONTRAST CT DOSE: 283.49 mGy.cm HISTORY: Acute right flank pain with hypertension r flank pain, htn TECHNIQUE: Multiaxial CT images of the abdomen and pelvis were performed following the use of intravenous contrast. A dose lowering technique was ut ilized adhering to the principles of ALARA. COMPARISON STUDY: CT abdomen and pelvis 12/29/2018 FINDINGS: There is mild intralobular septal thickening of the lung bases with mild dependent subsegmental bibasilar atelectasis. Mild bibasilar bronchial wall thickening. No pneumatosis or pneumoperitoneum. Imaged inferior cardiac chambers appear unremarkable. Ill-defined area of decreased attenuation of the left hepatic lobe adjacent to the falciform ligament suggests focal fatty infiltration. Liver is otherwise unremarkable. Spleen, pancreas, gallbladder and adrenal glands appear unremarkable. Kidneys and ureters are within normal limits. Mild urinary bladder distention. Hysterectomy. No adnexal mass lesions. Mixed plaque the abdominal aorta without aneurysm. No adenopathy. No bowel obstruction. Extensive colonic diverticulosis without acute diverticulitis. Moderate tic or tension of the r ectum and sigmoid. Mild wall thickening throughout the sigmoid is likely on a chronic basis. No pericolonic stranding. Terminal ileum and appendix are unremarkable. Metallic density focus adjacent to the cecum is unchanged. Soft tissues are unremarkable. Multilevel degenerative changes of the spine. There is a bony defect noted about the left iliac crest demonstrate circumscribed margins measuring 1.5 cm. Just inferior to this is a healing nondisplaced subacute fracture, new from comparison. Remote fracture the posterior right 11th rib. Moderate disc space narrowing at L4-L5. Severe facet arthrosis of the lower lumbar spine. IMPRESSION: 1. No acute intra-abdominal or intrapelvic abnormality identified. 2. Extensive colonic diverticulosis without acute diverticulitis. 3. Moderate fecal retention of the rectosigmoid. 4. Normal appendix. 5. Bony defect of the left iliac crest is new from 12/29/2018, possibly reflective of prior bone marrow biopsy or trauma. Additionally, there is a new healing nondisplaced subacute fracture noted just inferior to the bony defect. Correlate with patient history. 6. Bibasilar intralobular septal thickening suggestive of mild pulmonary edema. Electronically signed by: Anam Jimenez M.D. 03/27/2019 9:34 PM ECG Data Attestation: I personally reviewed and interpreted this ECG as follows: Indication: other (Hypertension) Rate (beats per minute): 60 Rhythm: normal sinus Findings: no PVC and no ST elevation Blood Pressure Blood Pressure Findings: Elevated blood pressure Blood Pressure Disposition: Referred to patients primary care provider MDM Narrative There is a moderate leukocytosis at 14,000, this could be consistent with infection or just her pain and vomiting. Renal panel testing does not show acute kidney injury. No worrisome electrolyte abnormality. No elevation to the LFTs. No evidence for pancreatitis. Lactic acid level is not elevated making sepsis less likely. EKG shows a sinus rhythm, no acute ischemia. Cardiac enzyme testing x1 is not consistent with acute cardiac injury. Urinalysis shows contamination, no obvious infection. Chest film does not show pneumonia or free air. Abdominal and pelvis CT does not show any evidence for renal hematoma or for urinary obstruction, there was no bowel obstruction. There is a subacute healing fracture to the left iliac crest. Of note, the patient does not have pain on the left side. The patient presents quite hypertensive, vomiting, complaining of right flank pain, she was diaphoretic. She was aggressively managed. Patient was given IV cefepime as antibiotic coverage. She received IV hydralazine. A second dose of IV hydralazine was given. She received IV Solu- Medrol and IV Benadryl as premedication for her CT. She received IV morphine, I V Zofran. She received IV saline. She does feel more comfortable. She was placed on 2 inches of Nitropaste to further help with blood pressure control. Patient is feeling improved, her diaphoresis has ceased. She is much more comfortable. Her blood pressure is better controlled. There has been no further nausea or vomiting. The patient is persistently hypertensive. She has had issues with her blood pressure before. I do not feel safe with discharge home. I did speak to the patient and telephonic case manager. The on-call hospitalist was consulted. The reason for all her symptoms and complaints today is not completely clear. Impression & Plan Severe hypertension, Right flank pain, Vomiting, Diaphoresis Critical Care Time Critical Care Time: Yes Total Critical Care Time: 42 I have personally spent greater than 42 minutes of critical care time in the direct management of this patient. This includes bedside care, interpretation of diagnostic studies, and testing, discussion with consultants, patient, and family members, and other required patient management activities. This 42 minutes is in excess of all separately billable procedures. Discharge Plan Visit Data Chief Complaint: Hypertension Stated Complaint: HIGH BLOOD PRESSURE, VOMITING ED Provider: Armin Tariq Discharge Problem: Severe hypertension, Right flank pain, Vomiting, Diaphoresis Patient Disposition: Being Evaluated by Hospitalist Forms Stand Alone Forms: My [facility] Prescriptions Prescriptions: No Action clonidine 0.1 mg/24 hr patch weekly 1 patch topical WEEKLY Qty: 4 RF: 5 promethazine 25 mg suppository 25 mg MN Q12H PRN (Reason: Nausea And Vomiting) Qty: 1 RF: 0 sertraline 100 mg tablet 100 mg PO HS Qty: 90 RF: 3 losartan 100 mg tablet 100 mg PO QAM RF: 0 multivitamin Tablet 1 tab PO DAILY RF: 0 atorvastatin 40 mg tablet 40 mg PO HS RF: 0 metoprolol succinate 100 mg tablet extended release 24 hr 100 mg PO BID RF: 0 clopidogrel [Plavix] 75 mg Tablet 75 mg PO DAILY RF: 0 ondansetron HCl [Zofran] 4 mg tablet 4 mg PO TID PRN (Reason: Nausea And Vomiting) RF: 0 Referrals Referrals: Teena Killian DO [Primary Care Provider] - Discharge Problem: Vomiting Qualifiers: Vomiting type: unspecified Vomiting Intractability: non-intractable Nausea presence: with nausea Qualified Code(s): R11.2 - Nausea with vomiting, unspecif ied The scribe's documentation has been prepared under my direction and personally reviewed by me in its entirety. I confirm that the note above accurately reflects all work, treatment, procedures, and medical decision making performed by me.
--- NOTE | 2019-03-27 19:02 | XRay Report ---
XR chest 1V portable HISTORY: 54 years-old Female r back or lung pain acute atypical chest pain COMPARISON: Chest radiograph 12/29/2018 TECHNIQUE: Portable AP view of the chest FINDINGS: Cardiomediastinal and hilar silhouettes are within normal limits. Healed remote fracture of the poste rior lateral right seventh rib. Postoperative changes of the cervical spine. Degenerative changes of the shoulders and spine. No pneumothorax, pleural effusion, focal airspace consolidation or overt pul monary edema. IMPRESSION: No acute process. The above report was generated using voice recognition software. It may contain grammatical, syntax o r spelling errors. Electronically signed by: Anam Jimenez M.D. 03/27/2019 7:01 PM
[2019-03-27 19:25] LABS: Basophils % (auto) 0.7 %; Eosinophils # (auto) 0.22 K/uL (0-0.5); Eosinophils % (auto) 1.5 %; Hematocrit (blood only) 40.4 % (37-47); Hemoglobin 13.9 g/dL (12.0-16.0); Immature Granulocytes # (auto) 0.05 K/uL (0.00-0.02); Immature Granulocytes % (auto) 0.3 %; Lymphocytes # (auto) 2.78 K/uL (1.2-3.4); Lymphocytes % (auto) 18.7 %; Mean Corpuscular Hemoglobin 31.1 pg (25-34); Mean Corpuscular Hgb Conc 34.4 g/dL (32-36); Mean Corpuscular Volume 90.4 fL (80-100); Mean Platelet Volume 9.7 fL (7.4-10.4); Monocytes # (auto) 0.74 K/uL (0.11-0.59); Neutrophils # (auto) 10.99 K/uL (1.4-6.5); Neutrophils % (auto) 73.8 %; Platelet Count 378 K/uL (130-400); RDW Coefficient of Variation 13.7 % (11.5-14.5); RDW Standard Deviation 45.1 fL (36.4-46.3); Red Blood Count 4.47 M/uL (4.2-5.4); White Blood Count 14.88 K/uL (4.8-10.8)
[2019-03-27] MEDS ORDERED: PROMETHAZINE HCL 12.5 MG in SODIUM CHLORIDE 0.9% 50 ML IV STA (19:31)
[2019-03-27] MEDS ORDERED: CEFEPIME 2,000 MG/20 ML VIAL IV STA (19:32)
[2019-03-27 19:45] LABS: Alanine Aminotransferase 22 U/L (12-78); Albumin Level 4.2 gm/dl (3.4-5.0); Aspartate Aminotransferase 23 U/L (15-37); BUN Creatinine Ratio 20.3 (10-20); Blood Urea Nitrogen 16 mg/dl (7-18); Calcium 9.9 mg/dl (8.5-10.1); Carbon Dioxide 23 mmol/L (21-32); Chloride 113 mmol/L (98-107); Est GFR (African American) 97.6; Est GFR (Non-African American) 84.2; Glucose 152 mg/dl (70-99); Lipase 107 U/L (73-393); Potassium 3.5 mmol/L (3.5-5.1); Sodium 142 mmol/L (136-145)
[2019-03-27] MEDS ORDERED: PROMETHAZINE 12.5 MG/50.5 ML NSS IV ONE (19:46)
[2019-03-27] MEDS ORDERED: methylPREDNISolone 125 MG/2 ML VIAL ONE (19:47)
[2019-03-27 19:50] LABS: Alkaline Phosphatase 111 U/L (45-117); Bilirubin,Total 0.3 mg/dl (0.2-1); Globulin 4.3 gm/dl (2.5-4.0); Total Protein 8.5 gm/dl (6.4-8.2); Troponin I < 0.015 ng/ml (0-0.045)
[2019-03-27 20:33] LABS: Appearance Urine Clear (Clear); Bacteria Urine Automated Negative (Negative); Bilirubin Urine Negative (Negative); Blood Urine 1+ (Negative); Color Urine Yellow; Epithelial Cell Urine Auto >30 /lpf (0-5); Glucose Urine UA Negative (Negative); Ketones Urine 1+ (Negative); Leukocyte Esterase Urine Negative (Negative); Nitrite Urine Negative (Negative); Protein Urine 1+ (Negative); Specific Gravity Urine 1.016 (1.000-1.030); Urobilinogen Urine Negative (Negative); pH Urine 6.5 (4.5-7.5)
[2019-03-27] MEDS ORDERED: IOVERSOL 100ml IV PRN (21:04)
[2019-03-27] MEDS ORDERED: NITROGLYCERIN 2% OINTMENT 30GM TUBE EXT STA (21:14)
--- NOTE | 2019-03-27 21:36 | CT Scan Report ---
ABDOMEN AND PELVIS CT WITH IV CONTRAST CT DOSE: 283.49 mGy.cm HISTORY: Acute right flank pain with hypertension r flank pain, htn TECHNIQUE: Multiaxial CT images of the abdomen and pelvis were performed following the use of intrave nous contrast. A dose lowering technique was utilized adhering to the principles of ALARA. COMPARISON STUDY: CT abdomen and pelvis 12/29/2018 FINDINGS: There is mild intralobular septal thickening of the lung bases with mild dependent subsegmental bibas ilar atelectasis. Mild bibasilar bronchial wall thickening. No pneumatosis or pneumoperitoneum. Image d inferior cardiac chambers appear unremarkable. Ill-defined area of decreased attenuation of the left hepatic lobe adjacent to the falciform ligament suggests focal fatty infiltration. Liver is otherwise unremarkable. Spleen, pancreas, gallbladder an d adrenal glands appear unremarkable. Kidneys and ureters are within normal limits. Mild urinary blad jovana distention. Hysterectomy. No adnexal mass lesions. Mixed plaque the abdominal aorta without aneur ysm. No adenopathy. No bowel obstruction. Extensive colonic diverticulosis without acute diverticulit is. Moderate tic or tension of the rectum and sigmoid. Mild wall thickening throughout the sigmoid is likely on a chronic basis. No pericolonic stranding. Terminal ileum and appendix are unremarkable. M etallic density focus adjacent to the cecum is unchanged. Soft tissues are unremarkable. Multilevel degenerative changes of the spine. There is a bony defect n oted about the left iliac crest demonstrate circumscribed margins measuring 1.5 cm. Just inferior to this is a healing nondisplaced subacute fracture, new from comparison. Remote fracture the posterior right 11th rib. Moderate disc space narrowing at L4-L5. Severe facet arthrosis of the lower lumbar sp ine. IMPRESSION: 1. No acute intra-abdominal or intrapelvic abnormality identified. 2. Extensive colonic diverticulosis without acute diverticulitis. 3. Moderate fecal retention of the rectosigmoid. 4. Normal appendix. 5. Bony defect of the left iliac crest is new from 12/29/2018, possibly reflective of prior bone marro w biopsy or trauma. Additionally, there is a new healing nondisplaced subacute fracture noted just in ferior to the bony defect. Correlate with patient history. 6. Bibasilar intralobular septal thickening suggestive of mild pulmonary edema. Electronically signed by: Anam Jimenez M.D. 03/27/2019 9:34 PM
[2019-03-28] MEDS ORDERED: ALUMINUM/MAGNESIUM SUSP 30 ML UDC PO PRN (01:31)
[2019-03-28] MEDS ORDERED: MAGNESIUM HYDROXIDE SUSP 30 ML UDC PO PRN (01:31)
[2019-03-28] MEDS ORDERED: ACETAMINOPHEN 325 MG TAB PO PRN (01:31)
[2019-03-28] MEDS ORDERED: PROMETHAZINE HCL 25 MG SUPP PR PRN (01:31)
[2019-03-28] MEDS ORDERED: ONDANSETRON 4 MG TAB PO PRN (01:31)
[2019-03-28] MEDS ORDERED: ONDANSETRON INJ 2 MG/ML 2 ML VIAL IV PRN (01:31)
[2019-03-28] MEDS: METOPROLOL SUCC 50MG EXT REL TAB PO SCH ×2 (03:21→10:17)
[2019-03-28 04:51] VITALS: O2SAT 96
--- NOTE | 2019-03-28 05:05 | History & Physical Report ---
Date of Service March 28, 2019 The patient was seen and examined on March 27, 2019 Assessment & Plan (1) Cannabinoid hyperemesis syndrome: Cannabinoid hyperemesis syndrome/persistent nausea and vomiting with right upper quadrant pain- CT abdomen pelvis negative for acute findings other than rectosigmoid fecal retention. Order ultrasound right upper quadrant of abdomen. Order HIDA scan NM. N.p.o. except essential medications. Add famotidine 20 mg IV twice daily. Present on Admission?: Yes (2) Hyperlipidemia: Continue atorvastatin. Present on Admission?: Yes (3) Demyelinating disorder: Patient reports that this diagnosis has not been completely established, it is unclear if there is an element of MS to her symptoms at any time Present on Admission?: Yes (4) CAD (coronary atherosclerotic disease): CAD/hypertension/periods of elevated blood pressure- Unclear patient is compliant with her medications. This is a similar presentation was found during her previous admission. She is due for her next dose of metoprolol for this evening, and will be given now. We will admit to telemetry and follow blood pressure closely. Continue Catapres-TTS 1 patch, clopidogrel, losartan and metoprolol succinate. Present on Admission?: Yes (5) HTN (hypertension): See above Present on Admission?: Yes (6) Anxiety disorder: Anxiety and depression- Continue sertraline. Present on Admission?: Yes History of Present Illness Chief Complaint: The patient presents to the emergency department with complaint of right-sided back discomfort, nausea and vomiting, and high blood pressure. Primary Care Provider: Teena Killian DO The patient is a 54-year-old female with a past medical history including hypertension, hypercholesterolemia, anxiety, depression, history of NSTEMI and marijuana daily use. She was last admitted to [facility] from 04/03-04/04/2018 for the same symptoms as of today, which is that of generalized weakness, abdominal discomfort with nausea/vomiting and volatile blood pressure. She has received multiple rounds of medications in emergency department to treat nausea, abdominal discomfort and elevated blood pressure, with similar non-relief as was found at previous admission. Allergies Allergy/AdvReac Type Severity Reaction Status Date / Time sulfamethoxazole Allergy Severe N/V Verified 02/03/19 10:31 [From Bactrim] trimethoprim [From Bactrim] Allergy Severe N/V Verified 02/03/19 10:31 doxycycline Allergy Unknown hives and Verified 02/03/19 10:31 vomitting Iodinated Contrast- Oral and Allergy Unknown GIANT Verified 02/03/19 10:31 IV Dye HIVES , VOMITTING, BODY FEELS HOT latex Allergy Unknown RASH Verified 02/03/19 10:31 meperidine Allergy Unknown HIVES, Verified 02/03/19 10:31 VOMITING prochlorperazine Allergy Unknown N/V, Verified 02/03/19 10:31 ITCHINESS strawberry Allergy Unknown HIVES Verified 02/03/19 10:31 tomato Allergy Unknown HIVES Verified 02/03/19 10:31 iodine Allergy . Verified 03/27/19 20:02 Green Marques Allergy Unknown HIVES Uncoded 02/03/19 10:31 Hernandez Beans Allergy Unknown HIVES Uncoded 02/03/19 10:31 Doxycycline Hyclate Allergy . Uncoded 03/27/19 20:02 Imperim Allergy . Uncoded 03/27/19 20:02 Home Medications Home Medications Medication Instructions Recorded Confirmed Type atorvastatin 40 mg PO HS 12/16/18 03/27/19 History losartan 100 mg PO QAM 12/16/18 03/27/19 History metoprolol succinate 100 mg PO BID 12/16/18 03/27/19 History multivitamin 1 tab PO DAILY 12/16/18 03/27/19 History clopidogrel [Plavix] 75 mg PO DAILY 01/07/19 03/27/19 History promethazine 25 mg rectal 25 mg HI Q12H PRN #1 ea 01/12/19 03/27/19 History suppository clonidine 0.1 mg/24 hr weekly 1 patch TOPICAL WEEKLY #4 ea 02/02/19 03/27/19 Rx transdermal patch sertraline 100 mg tablet 100 mg PO HS #90 tab 02/03/19 03/27/19 Rx ondansetron HCl [Zofran] 4 mg PO TID PRN 03/27/19 03/27/19 History Past Med/Surg History Medical History Otalgia (Resolved) LEFT History of vomiting (Chronic) History of nausea (Chronic) History of myocardial infarction History of gastritis (Chronic) History of diverticulitis of colon (Chronic) Elevated serum creatinine NSTEMI (non-ST elevated myocardial infarction) 2016 [facility]. Cath performed showed mild to moderate non-obstructive CAD. Takotsubo cardiomyopathy (Resolved) 2017. Admitted [facility], full cardiac workup including cath. EF at the time 40%, now resolved to 60-65% on echo 2019. HTN (hypertension) (Chronic) History of stomach ulcers (Chronic) Carotid stenosis (Chronic) < 50% stenosis B/L per [place] 12/16/18 Unexplained night sweats (Chronic) Pt states has had for years with no etiology identified. CAD (coronary artery disease) (Chronic) Mild-moderate non-obstructive Pulmonary emphysema (Chronic) Multiple thyroid nodules (Chronic) Hyperlipidemia (Chronic) Dysphagia (Chronic) Diverticulosis (Chronic) Demyelinating disorder (Chronic) DJD (degenerative joint disease), cervical (Chronic) Cervical radiculopathy (Chronic) Accelerated essential hypertension (Chronic) Multiple sclerosis (Suspected) Transient cerebrovascular ischemia (Suspected) CAD (coronary atherosclerotic disease) (Chronic) Anxiety disorder (Chronic) Renal artery stenosis (Chronic) Congestive heart failure, acute (Resolved) 06/2017, admitted [facility]. Ruled 2/2 Takasubo CM. Gastritis (Chronic) Acute UTI (Resolved) Arm numbness (Resolved) Diverticulitis (Resolved) Grief reaction (Resolved) Kidney infection (Resolved) CURRENT , RIGHT (ED [facility] LAST WEEK). JUST FINISHED ABX. X4 INFECTION OVER LAST 2 YRS Pulmonary edema cardiac cause (Resolved) Rash of unknown cause (Resolved) UTI symptoms (Resolved) Weight loss, unintentional (Resolved) History of hypotension (Inactive) Cervical disc disorder Multiple sclerosis of cord Surgical History H/O cervical spine surgery ACDF C4-7 Dr. [place] History of cardiac cath 5-6 YR AGO - [place] - NO STENTS (per pt report, this cath not noted in cardiology notes) 2017, NSTEMI. NO INTERVENTION. History of colonoscopy History of hernia surgery History of hysterectomy History of ovarian cystectomy Family History Father Family history of stomach cancer Stroke Myocardial infarction Malignant neoplasm of esophagus Stomach cancer Uncle Family history of cancer FAMILY HISTORY OF CANCER - UNCLE - VOC[employer] FAMILY HISTORY OF CANCER - AUNT - ? KIND Throat cancer Grandmother (Maternal) Family history of breast cancer Family history of bone cancer Cancer bone Breast cancer Bone cancer Grandmother Bone cancer Other No pertinent family history Social History Preferred Language: Persian Communication Ability: Effective Visual Impairment: Limited Hearing Ability: Normal Labor Service Representative Required: No Beliefs That Will Affect Care: None marital status: Current Living Situation: Spouse and Family current occupational status: employed current occupation: [employer] Other Information That Helps Us Care for You: No Feels Safe at Home: Yes Safety Concerns: Feels Safe At This Time Smoking Status: Former smoker Tobacco Type: cigarettes ; packs per day: 2 ; Do You Dip or Chew Tobacco: No ; Second Hand Exposure: Yes ; Hx Alcohol Use: No Hx Substance Use: Yes substance use type: marijuana Last Used Substance: Days (ago) Dental Care, Regularly: No Physical Activity Frequency: Does not Exercise Seatbelt Use: always Review of Systems Review of Systems: The patient denies cough, lower extremity swelling, sore throat, fevers, chills, sweats,diarrhea , constipation, blood in urine or stool, dysuria, urinary frequency or urgency, memory loss, loss of consciousness, rash, abnormal bruising or bleeding, imbalance, focal weakness, numbness or tingling in arms or legs, back or neck pain, or night sweats. The review of systems is otherwise negative other than for that already noted above, and at least 10 systems have been reviewed. Physical Exam Physical Exam: The patient is awake, alert and oriented 3, well developed and well nourished, normocephalic and atraumatic, lying in bed and in no acute distress. HEENT--PERRL, EOMI, mucous membranes and oropharynx dry. Neck--supple. No JVD. No bruits. Thyroid normal, trachea midline, no adenopathy. Heart--normal S1 and S2. No murmurs, rubs or gallops. Lungs--clear bilaterally, no respiratory distress, no accessory muscle use. Abdomen--normal bowel sounds and soft. Mild right upper quadrant tenderness with palpation. Extremities--no cyanosis or clubbing. No edema. There are good distal pulses b/l. Dermatologic--normal skin turgor, normal color, no abnormal lymph nodes, no rash. Neurologic--cranial nerves II through XII grossly intact. Rheumatologic--normal range of motion. Psychiatric--normal affect. Results & Data Vital Signs (Past 12 Hours) Vital Signs Temp Pulse Pulse Resp BP BP BP 03/28/19 02:04 74 03/28/19 01:50 98.4 F 73 18 178/99 H 03/28/19 01:18 75 17 03/28/19 01:17 71 16 166/104 H 03/28/19 01:16 73 14 166/104 H 03/28/19 00:46 76 21 169/94 H 03/28/19 00:31 85 16 169/102 H 03/28/19 00:30 75 22 03/28/19 00:16 70 24 160/99 H 03/28/19 00:01 80 19 169/102 H 03/28/19 00:00 73 17 03/27/19 23:46 89 17 165/103 H 03/27/19 23:31 78 23 164/110 H 03/27/19 23:30 81 27 H 03/27/19 23:16 78 18 158/103 H 03/27/19 23:01 77 20 170/102 H 03/27/19 23:00 73 16 03/27/19 22:46 79 14 170/99 H 03/27/19 22:31 80 26 H 152/107 H 03/27/19 22:30 77 18 03/27/19 22:17 81 19 03/27/19 22:16 72 22 172/105 H 03/27/19 22:15 79 17 03/27/19 22:01 81 16 164/106 H 03/27/19 22:00 78 19 03/27/19 21:50 81 19 03/27/19 21:46 86 23 174/99 H 03/27/19 21:40 83 13 03/27/19 21:31 80 21 174/109 H 03/27/19 21:30 81 16 03/27/19 21:21 84 14 03/27/19 21:19 79 16 188/115 H 03/27/19 21:18 85 16 03/27/19 20:50 84 14 03/27/19 20:46 77 15 189/132 H 03/27/19 20:40 81 19 03/27/19 20:31 79 25 H 176/119 H 03/27/19 20:30 81 20 03/27/19 20:24 97.9 F 78 16 185/135 H 03/27/19 20:20 91 H 17 03/27/19 20:16 80 13 185/135 H 03/27/19 20:10 82 19 03/27/19 20:01 84 12 205/123 H 03/27/19 20:00 78 16 03/27/19 19:50 75 14 03/27/19 19:46 68 16 196/124 H 03/27/19 19:40 67 19 03/27/19 19:31 62 19 207/141 H 03/27/19 19:30 63 11 L 03/27/19 19:21 65 15 198/117 H 03/27/19 19:20 69 18 03/27/19 19:16 74 18 189/121 H 03/27/19 19:13 73 21 198/132 H 03/27/19 19:11 70 20 187/109 H 03/27/19 19:10 58 L 14 03/27/19 19:05 85 20 03/27/19 19:01 67 13 184/114 H 03/27/19 18:45 03/27/19 18:17 65 22 215/126 H Pulse Ox 03/28/19 02:04 03/28/19 01:50 98 03/28/19 01:18 97 03/28/19 01:17 97 03/28/19 01:16 97 03/28/19 00:46 97 03/28/19 00:31 97 03/28/19 00:30 98 03/28/19 00:16 98 03/28/19 00:01 97 03/28/19 00:00 97 03/27/19 23:46 97 03/27/19 23:31 97 03/27/19 23:30 97 03/27/19 23:16 97 03/27/19 23:01 97 03/27/19 23:00 99 03/27/19 22:46 96 03/27/19 22:31 97 03/27/19 22:30 98 03/27/19 22:17 98 03/27/19 22:16 96 03/27/19 22:15 97 03/27/19 22:01 97 03/27/19 22:00 97 03/27/19 21:50 97 03/27/19 21:46 97 03/27/19 21:40 95 03/27/19 21:31 95 03/27/19 21:30 95 03/27/19 21:21 96 03/27/19 21:19 96 03/27/19 21:18 03/27/19 20:50 96 03/27/19 20:46 95 03/27/19 20:40 97 03/27/19 20:31 97 03/27/19 20:30 98 03/27/19 20:24 98 03/27/19 20:20 97 03/27/19 20:16 98 03/27/19 20:10 98 03/27/19 20:01 98 03/27/19 20:00 99 03/27/19 19:50 99 03/27/19 19:46 100 03/27/19 19:40 100 03/27/19 19:31 100 03/27/19 19:30 100 03/27/19 19:21 100 03/27/19 19:20 100 03/27/19 19:16 100 03/27/19 19:13 100 03/27/19 19:11 99 03/27/19 19:10 98 03/27/19 19:05 100 03/27/19 19:01 100 03/27/19 18:45 100 03/27/19 18:17 100 Laboratory Results Laboratory Results WBC 14.88 K/uL (4.8-10.8) H 03/27/19 19:15 RBC 4.47 M/uL (4.2-5.4) 03/27/19 19:15 Hgb 13.9 g/dL (12.0-16.0) 03/27/19 19:15 Hct 40.4 % (37-47) 03/27/19 19:15 MCV 90.4 fL (80-100) 03/27/19 19:15 MCH 31.1 pg (25-34) 03/27/19 19:15 MCHC 34.4 g/dL (32-36) 03/27/19 19:15 RDW Std Deviation 45.1 fL (36.4-46.3) 03/27/19 19:15 RDW Coeff of Jose Luis 13.7 % (11.5-14.5) 03/27/19 19:15 Plt Count 378 K/uL (130-400) 03/27/19 19:15 MPV 9.7 fL (7.4-10.4) 03/27/19 19:15 Immature Gran % (Auto) 0.3 % 03/27/19 19:15 Neut % (Auto) 73.8 % 03/27/19 19:15 Lymph % (Auto) 18.7 % 03/27/19 19:15 [place] % (Auto) 5.0 % 03/27/19 19:15 Eos % (Auto) 1.5 % 03/27/19 19:15 Baso % (Auto) 0.7 % 03/27/19 19:15 Immature Gran # (Auto) 0.05 K/uL (0.00-0.02) H 03/27/19 19:15 Neut # (Auto) 10.99 K/uL (1.4-6.5) H 03/27/19 19:15 Lymph # (Auto) 2.78 K/uL (1.2-3.4) 03/27/19 19:15 [place] # (Auto) 0.74 K/uL (0.11-0.59) H 03/27/19 19:15 Eos # (Auto) 0.22 K/uL (0-0.5) 03/27/19 19:15 Baso # (Auto) 0.10 K/uL (0-0.2) 03/27/19 19:15 Sodium 142 mmol/L (136-145) 03/27/19 19:15 Potassium 3.5 mmol/L (3.5-5.1) 03/27/19 19:15 Chloride 113 mmol/L (98-107) H 03/27/19 19:15 Carbon Dioxide 23 mmol/L (21-32) 03/27/19 19:15 Anion Gap 6.0 (3-11) 03/27/19 19:15 BUN 16 mg/dl (7-18) 03/27/19 19:15 Creatinine 0.80 mg/dl (0.6-1.2) 03/27/19 19:15 Est Cr Clr Drug Dosing Not Reportable 03/27/19 19:15 Est GFR ( Amer) 97.6 03/27/19 19:15 Est GFR (Non-Af Amer) 84.2 03/27/19 19:15 BUN/Creatinine Ratio 20.3 (10-20) H 08/24/19 19:15 Glucose 152 mg/dl (70-99) H 03/27/19 19:15 POC Glucose 141 (70-99) H 03/27/19 19:00 Lactate 1.7 mmol/L (0.4-2.0) 03/27/19 19:15 Calcium 9.9 mg/dl (8.5-10.1) 03/27/19 19:15 Total Bilirubin 0.3 mg/dl (0.2-1) 03/27/19 19:15 AST 23 U/L (15-37) 03/27/19 19:15 ALT 22 U/L (12-78) 03/27/19 19:15 Alkaline Phosphatase 111 U/L (45-117) 03/27/19 19:15 Troponin I < 0.015 ng/ml (0-0.045) 03/27/19 19:15 Total Protein 8.5 gm/dl (6.4-8.2) H 03/27/19 19:15 Albumin 4.2 gm/dl (3.4-5.0) 03/27/19 19:15 Globulin 4.3 gm/dl (2.5-4.0) H 03/27/19 19:15 Albumin/Globulin Ratio 1.0 (0.9-2) 03/27/19 19:15 Lipase 107 U/L (73-393) 03/27/19 19:15 Urine Color Yellow 03/27/19 20:20 Urine Appearance Clear (Clear) 03/27/19 20:20 Urine pH 6.5 (4.5-7.5) 03/27/19 20:20 Ur Specific Kramer 1.016 (1.000-1.030) 03/27/19 20:20 Urine Protein 1+ (Negative) H 03/27/19 20:20 Urine Glucose (UA) Negative (Negative) 03/27/19 20:20 Urine Ketones 1+ (Negative) H 03/27/19 20:20 Urine Blood 1+ (Negative) H 03/27/19 20:20 Urine Nitrite Negative (Negative) 03/27/19 20:20 Urine Bilirubin Negative (Negative) 03/27/19 20:20 Urine Urobilinogen Negative (Negative) 03/27/19 20:20 Ur Leukocyte Esterase Negative (Negative) 03/27/19 20:20 Urine WBC (Auto) 1-5 /hpf (0-5) 03/27/19 20:20 Urine RBC (Auto) 10-30 /hpf (0-4) H 03/27/19 20:20 U Hyaline Cast (Auto) 1-5 /lpf (0-5) 03/27/19 20:20 U Epithel Cells (Auto) >30 /lpf (0-5) H 03/27/19 20:20 Urine Bacteria (Auto) Negative (Negative) 03/27/19 20:20 Diagnostic Findings [place], [place] [phone] CT Scan Report Patient: ONEL MONTOYA Date: 03/27/19 MR#: [id number]: 104 NO JAMESON Acct ID:[id number]: Date: 1965[facility] Zip: [place] [address] Age: 54Location: ED Sex: F Room/Bed: Att Phy: Diagnosis: HIGH BLOOD PRESSURE, VOMITING Risa Phy: Teena Killian, DOService Date: 03/27/19 Fam Phy: Interpreting Phy: Álvaro Jimenez Admit Phy: Ordering Phy: Armin Tariq M.D. cc: ~ ABDOMEN AND PELVIS CT WITH IV CONTRAST CT DOSE: 283.49 mGy.cm HISTORY: Acute right flank pain with hypertension r flank pain, htn TECHNIQUE: Multiaxial CT images of the abdomen and pelvis were performed following the use of intravenous contrast. A dose lowering technique was utilized adhering to the principles of ALARA. COMPARISON STUDY: CT abdomen and pelvis 12/29/2018 FINDINGS: There is mild intralobular septal thickening of the lung bases with mild dependent subsegmental bibasilar atelectasis. Mild bibasilar bronchial wall thickening. No pneumatosis or pneumoperitoneum. Imaged inferior cardiac chambers appear unremarkable. Ill-defined area of decreased attenuation of the left hepatic lobe adjacent to the falciform ligament suggests focal fatty infiltration. Liver is otherwise unremarkable. Spleen, pancreas, gallbladder and adrenal glands appear unremarkable. Kidneys and ureters are within normal limits. Mild urinary bladder distention. Hysterectomy. No adnexal mass lesions. Mixed plaque the abdominal aorta without aneurysm. No adenopathy. No bowel obstruction. Extensive colonic diverticulosis without acute diverticulitis. Moderate tic or tension of the rectum and sigmoid. Mild wall thickening throughout the sigmoid is likely on a chronic basis. No pericolonic stranding. Terminal ileum and appendix are unremarkable. Metallic density focus adjacent to the cecum is unchanged. Soft tissues are unremarkable. Multilevel degenerative changes of the spine. There is a bony defect noted about the left iliac crest demonstrate cir cumscribed margins measuring 1.5 cm. Just inferior to this is a healing nondisplaced subacute fracture, new from comparison. Remote fracture the posterior right 11th rib. Moderate disc space narrowing at L4-L5. Severe facet arthrosis of the lower lumbar spine. IMPRESSION: 1. No acute intra-abdominal or intrapelvic abnormality identified. 2. Extensive colonic diverticulosis without acute diverticulitis. 3. Moderate fecal retention of the rectosigmoid. 4. Normal appendix. 5. Bony defect of the left iliac crest is new from 12/29/2018, possibly reflective of prior bone marrow biopsy or trauma. Additionally, there is a new healing nondisplaced subacute fracture noted just inferior to the bony defect. Correlate with patient history. 6. Bibasilar intralobular septal thickening suggestive of mild pulmonary edema. Electronically signed by: Anam Jimenez M.D. 03/27/2019 9:34 PM Dictated: 03/27/192122 Transcribed: 03/27/192122 [place], [place] [phone] XRay Report Patient: ONEL MONTOYA Date: 03/27/19 MR#: [id number]: 104 NO JAMESON Acct ID:[id number]: Date: 1965[facility] Zip: [place] [address] Age: 54Location: ED Sex: F Room/Bed: Att Phy: Diagnosis: HIGH BLOOD PRESSURE, VOMITING Risa Phy: Teena Killian, DOService Date: 03/27/19 Fam Phy: Interpreting Phy: Álvaro Jimenez Admit Phy: Ordering Phy: Armin Tariq M.D. cc: ~ XR chest 1V portable HISTORY: 54 years-old Female r back or lung pain acute atypical chest pain COMPARISON: Chest radiograph 12/29/2018 TECHNIQUE: Portable AP view of the chest FINDINGS: Cardiomediastinal and hilar silhouettes are within normal limits. Healed remote fracture of the posterior lateral right seventh rib. Postoperative changes of the cervical spine. Degenerative changes of the shoulders and spine. No pneumothorax, pleural effusion, focal airspace consolidation or overt pulmonary edema. IMPRESSION: No acute process. The above report was generated using voice recognition software. It may contain grammatical, syntax or spelling errors. Electronically signed by: Anam Jimenez M.D. 03/27/2019 7:01 PM Dictated: 03/27/19 1859 Transcribed: 03/27/19 1859 Code Status & VTE Plan Code Status Full code VTE Prophylaxis Plan VTE Prophylaxis will be ordered: Yes PG Care Time/CCT Total # of Minutes Spent Total Time Spent with Patient: Total time spent is greater than 50% in coordination of care (as documented) at patient's floor/unit and/or counseling patient:
[2019-03-28] MEDS ORDERED: FAMOTIDINE 20 MG in SYRINGE 3 ML IV SCH (06:00)
--- NOTE | 2019-03-28 06:46 | Ultrasound Report ---
US abdomen limited HISTORY: 54 years-old Female RUQ pain, nausea, acute right upper quadrant abdominal pain with nausea COMPARISON: CT abdomen and pelvis 03/27/2019 TECHNIQUE: Multiple real time sonographic images of the abdominal right upper quadrant were obtained assessing grayscale appearance and color flow FINDINGS: Visualized pancreas appears unremarkable. Unremarkable sonographic appearance of the liver. Unremarka ble gallbladder without cholelithiasis, wall thickening or pericholecystic fluid. Normal common bile duct, 4 mm. Imaged right kidney is unremarkable without hydronephrosis. IMPRESSION: 1. No cholelithiasis or sonographic evidence of acute cholecystitis. 2. No biliary ductal dilation. The above report was generated using voice recognition software. It may contain grammatical, syntax o r spelling errors. Electronically signed by: Anam Jimenez M.D. 03/28/2019 6:44 AM
[2019-03-28 08:25] VITALS: PULSE 69; TEMP 99.9
[2019-03-28] MEDS ORDERED: CLOPIDOGREL BISULFATE 75 MG TAB PO SCH (09:00)
[2019-03-28] MEDS ORDERED: LOSARTAN POTASSIUM 50 MG TAB PO SCH (09:00)
[2019-03-28] MEDS ORDERED: HEPARIN SOD 5,000 UNIT/0.5 ML VIAL SQ SCH (09:00)
[2019-03-28] MEDS ORDERED: MULTIVITAMIN TAB PO SCH (09:00)
[2019-03-28 09:38] LABS: Hematocrit (blood only) 36.6 % (37-47); Hemoglobin 12.5 g/dL (12.0-16.0); Mean Corpuscular Hemoglobin 30.6 pg (25-34); Mean Corpuscular Hgb Conc 34.2 g/dL (32-36); Mean Corpuscular Volume 89.5 fL (80-100); Mean Platelet Volume 9.7 fL (7.4-10.4); Platelet Count 325 K/uL (130-400); RDW Coefficient of Variation 13.9 % (11.5-14.5); RDW Standard Deviation 45.6 fL (36.4-46.3); Red Blood Count 4.09 M/uL (4.2-5.4); White Blood Count 9.73 K/uL (4.8-10.8)
[2019-03-28 11:04] LABS: Partial Thromboplastin Ratio 0.9; Prothrombin Time 9.9 Seconds (9.0-12.0)
[2019-03-28 14:28] VITALS: BP 166/104
--- NOTE | 2019-03-28 15:50 | Discharge Summary ---
Date of Service March 28, 2019 Admission HPI Per Admitting Provider The patient is a 54-year-old female with a past medical history including hypertension, hypercholesterolemia, anxiety, depression, history of NSTEMI and marijuana daily use. She was last admitted to [facility] from 04/03-04/04/2018 for the same symptoms as of today, which is that of generalized weakness, abdominal discomfort with nausea/vomiting and volatile blood pressure. She has received multiple rounds of medications in emergency department to treat nausea, abdominal discomfort and elevated blood pressure, with similar non-relief as was found at previous admission. Principal Diagnosis Undifferentiated nausea and abdominal pain Discharge Exam Constitutional WD/WN, vitals as above Eyes EOM intact bilaterally; no conjunctival abnormality ENMT external ear and nose normal, oropharynx normal Neck trachea midline, no thyromegaly normal visual inspection Respiratory normal respiratory effort, lungs clear to auscultation no respiratory distress Cardiovascular RRR, no murmur, no edema Gastrointestinal (Abdomen) Inspection/Auscultation: abdomen normal to inspection; abdomen not distended Musculoskeletal no cyanosis or clubbing, extremities motor strength 5/5 Skin no rashes, warm and dry Neurologic moves all extremities and awake Psychiatric Orientation: alert, oriented to person and cooperative Discharge Data Allergies Allergy/AdvReac Type Severity Reaction Status Date / Time sulfamethoxazole Allergy Severe N/V Verified 02/03/19 10:31 [From Bactrim] trimethoprim [From Bactrim] Allergy Severe N/V Verified 02/03/19 10:31 napoles Allergy Unknown Hives Verified 03/28/19 12:36 doxycycline Allergy Unknown hives and Verified 02/03/19 10:31 vomitting Iodinated Contrast- Oral and Allergy Unknown GIANT Verified 02/03/19 10:31 IV Dye HIVES , VOMITTING, BODY FEELS HOT latex Allergy Unknown RASH Verified 02/03/19 10:31 meperidine Allergy Unknown HIVES, Verified 02/03/19 10:31 VOMITING prochlorperazine Allergy Unknown N/V, Verified 02/03/19 10:31 ITCHINESS strawberry Allergy Unknown HIVES Verified 02/03/19 10:31 tomato Allergy Unknown HIVES Verified 02/03/19 10:31 iodine Allergy . Verified 03/27/19 20:02 Doxycycline Hyclate Allergy . Uncoded 03/27/19 20:02 Imperim Allergy . Uncoded 03/27/19 20:02 Consultations 03/27/19 21:46 ED Decision to Admit Stat 03/28/19 01:31 Consult Case Management - Discharge Planning Routine Ordered Studies 03/27/19 18:29 CT abd pelvis IV con only Stat 03/28/19 08:00 US abdomen limited Urgent Hospital Course (1) Cannabinoid hyperemesis syndrome: Cannabinoid hyperemesis syndrome/persistent nausea and vomiting with right upper quadrant pain- - CT abdomen pelvis negative for acute findings other than rectosigmoid fecal retention. - RUQ u/s showed no gallbladder pathology. - Patient felt well by the afternoon. Wanted to go home. Told her to take a PPI in case she has recurrence of her peptic ulcer disease. Gave red flag symptoms to return. Will follow up with PCP and GI. (2) Hyperlipidemia: Continue atorvastatin. (3) Demyelinating disorder: Patient reports that this diagnosis has not been completely established, it is unclear if there is an element of MS to her symptoms at any time (4) CAD (coronary atherosclerotic disease): CAD/hypertension/periods of elevated blood pressure- Unclear patient is compliant with her medications. This is a similar presentation was found during her previous admission. Continue Catapres-TTS 1 patch, clopidogrel, losartan and metoprolol succinate. (5) HTN (hypertension): See above (6) Anxiety disorder: Anxiety and depression- Continue sertraline. Total Time Total Time Spent Total Time Spent (In Minutes): 20 Total Time Includes: Examination of the Patient and Discharge Planning Discharge Plan Discharge Items Patient Disposition: Home - Self-Care Reason For Visit: ABDOMINAL PAIN,NAUSEA Discharge Diagnosis: Nausea, abdominal pain Discharge Goals: Decrease discomfort and Improve function Activity: Resume your previous activity Non-emergency contact: Primary Care Provider Call non-emergency contact if: your symptoms worsen and your pain is not controlled Follow-up/Referrals: Teena Killian, [Primary Care Provider] - Diet: Regular and See below Diet Comment: [place] diet to start; advance as able. Addtl Provider Instructions: Ms. Velasquez, You were admitted to hospital with nausea and abdominal pain. We gave you medication and had you eat gentle foods for the day, and you felt better. Please continue to take your Zofran and/or Reglan as needed. Your labs and imaging looked good and did not show any concerning causes. This may have just been a stomach virus. Since you were feeling better, and your labs and imaging looked good, we were able to discharge you. Please follow up with your PCP. You can start taking an over the counter acid blaine until you see your PCP who may have you see a GI doctor. Please come back to the hospital with any vomiting of blood, coffee ground-like material, dark, tarry stools, or other concerning symptoms. Prescriptions: New pantoprazole 40 mg tablet,delayed release (DR/EC) 40 mg PO DAILY 28 Days Qty: 28 RF: 0 Continued clonidine 0.1 mg/24 hr patch weekly 1 patch topical WEEKLY Qty: 4 RF: 5 promethazine 25 mg suppository 25 mg CO Q12H PRN (Reason: Nausea And Vomiting) Qty: 1 RF: 0 sertraline 100 mg tablet 100 mg PO HS Qty: 90 RF: 3 losartan 100 mg tablet 100 mg PO QAM RF: 0 multivitamin Tablet 1 tab PO DAILY RF: 0 atorvastatin 40 mg tablet 40 mg PO HS RF: 0 metoprolol succinate 100 mg tablet extended release 24 hr 100 mg PO BID RF: 0 clopidogrel [Plavix] 75 mg Tablet 75 mg PO DAILY RF: 0 ondansetron HCl [Zofran] 4 mg tablet 4 mg PO TID PRN (Reason: Nausea And Vomiting) RF: 0 Stand-Alone Forms: [facility] Discharge Orders: Discharge Order (Routine); Ordered 03/28/19 Ordered By: Trevor Bojorquez Admission Data Admit Date/Time: 03/28/19 00:01 Attending Provider: Trevor Bojorquez Admit Provider: Aron Drake Primary Care Provider: Teena Killian Other Providers: Trevor Bojorquez Service: Telemetry Medical Other Interventions: Discharge Summary Assessment (RN) Last Done: 03/28/19 14:25 DC Date/Time DO NOT enter until pt leaves facility: 03/28/19 15:04
[2019-03-28] MEDS ORDERED: SERTRALINE HCL 100 MG TABLET PO SCH (21:00)
[2019-03-28] MEDS ORDERED: ATORVASTATIN 40 MG TAB PO SCH (21:00)
== END 2019-03-28 15:04 | disposition home or self-care (01) ==
LOC: 2N 18:04 → ED 18:04 → SUATTDRO 03-28 00:01 → 2N 03-28 01:26

== ENCOUNTER 2019-07-17 07:17 | Inpatient (IN) ==
[2019-07-17] MEDS ORDERED: ONDANSETRON INJ 2 MG/ML 2 ML VIAL IV STA (08:02)
[2019-07-17] MEDS ORDERED: KETOROLAC TROMETHAMINE 15 MG/ML VIAL IV STA (08:02)
[2019-07-17] MEDS ORDERED: cloNIDine HCL 0.1 MG TAB PO ONE (08:02)
[2019-07-17] MEDS ORDERED: SODIUM CHLORIDE 0.9% 1000ML 1,000 ML IV SCH (08:04)
[2019-07-17 08:14] LABS: Basophils # (auto) 0.04 K/uL (0-0.2); Basophils % (auto) 0.4 %; Eosinophils # (auto) 0.05 K/uL (0-0.5); Eosinophils % (auto) 0.5 %; Hematocrit (blood only) 44.5 % (37-47); Hemoglobin 15.1 g/dL (12.0-16.0); Immature Granulocytes # (auto) 0.03 K/uL (0.00-0.02); Immature Granulocytes % (auto) 0.3 %; Lymphocytes # (auto) 1.63 K/uL (1.2-3.4); Lymphocytes % (auto) 15.1 %; Mean Corpuscular Hgb Conc 33.9 g/dL (32-36); Mean Corpuscular Volume 91.4 fL (80-100); Mean Platelet Volume 10.2 fL (7.4-10.4); Monocytes % (auto) 3.7 %; Neutrophils # (auto) 8.68 K/uL (1.4-6.5); Platelet Count 356 K/uL (130-400); RDW Coefficient of Variation 13.6 % (11.5-14.5); RDW Standard Deviation 45.2 fL (36.4-46.3); Red Blood Count 4.87 M/uL (4.2-5.4); White Blood Count 10.83 K/uL (4.8-10.8)
--- NOTE | 2019-07-17 08:16 | Emergency Department Note ---
History of Present Illness General Chief complaint: Headache Time Seen by Provider: 07/17/19 07:43 History of Present Illness Maximum Pain Intensity: 7 Patient is a 54-year-old female with past medical history significant for hypertension, dyslipidemia, anxiety, depression, NSTEMI, and frequent marijuana use who presents the emergency department for an episode of feeling poorly this morning. She was brought to the emergency department by ambulance. She states that she came in because she "does not feel good." Patient provides the history, her supplements. She reports that she had been ill with vomiting and diarrhea over the last 2 days. She reports that she woke up around 3:00 this morning, roughly 4 hours ago, with a throbbing occipital headache, and vomited 2-3 times. She rates her headache a 5/10. Her also notes that she had some twitching in her left arm for 30 to 45 minutes. It stopped in the ambulance on the ride in. He took her blood pressure at home, and noted that it was elevated at 240/140. Patient reports that she has been compliant with her blood pressure medications, she last took them yesterday, has not taken anything this morning. She smoked a bowl of marijuana yesterday. She smokes marijuana several times per week, this is not prescribed. She reports blurry vision, pain in the TMJ joints bilaterally. No chest pain, no palpitations or shortness of breath. She denies any associated abdominal pain. She denies any blood in her vomit or her stool. No urinary symptoms. There was no focal neurologic deficits such as extremity weakness or facial droop. No difficulty with balance, speech or coordination. Home Medications Home Medications Medication Instructions Recorded Confirmed Type multivitamin 1 tab PO QAM 12/16/18 07/17/19 History atorvastatin [Lipitor] 40 mg PO HS 07/17/19 07/17/19 History clonidine [[id number]] 1 patch TOPICAL WK 07/17/19 07/17/19 History clopidogrel [Plavix] 75 mg PO QAM 07/17/19 07/17/19 History losartan [Cozaar] 100 mg PO QAM 07/17/19 07/17/19 History metoprolol succinate [Toprol XL] 100 mg PO BID 07/17/19 07/17/19 History ondansetron 4 mg PO Q6H PRN 07/17/19 07/17/19 History promethazine 25 mg PO Q6H PRN 07/17/19 07/17/19 History sertraline [Zoloft] 100 mg PO HS 07/17/19 07/17/19 History Allergies Allergy/AdvReac Type Severity Reaction Status Date / Time napoles Allergy Intermediate Hives Verified 07/17/19 09:51 doxycycline Allergy Intermediate hives and Verified 07/17/19 09:51 vomitting Iodinated Contrast Media Allergy Intermediate GIANT Verified 07/17/19 09:51 HIVES , VOMITTING, BODY FEELS HOT meperidine Allergy Intermediate HIVES, Verified 07/17/19 09:51 VOMITING prochlorperazine Allergy Intermediate N/V, Verified 07/17/19 09:51 ITCHINESS strawberry Allergy Intermediate HIVES Verified 07/17/19 09:51 tomato Allergy Intermediate HIVES Verified 07/17/19 09:51 iodine Allergy . Verified 07/17/19 09:51 latex AdvReac Mild RASH Verified 07/17/19 09:51 Imperim Allergy . Uncoded 07/17/19 09:51 Past Med/Surg History Medical History Acute UTI (Resolved) Anxiety disorder CAD (coronary artery disease) Mild-moderate non-obstructive Carotid stenosis < 50% stenosis B/L per US 12/16/18 Cervical disc disorder Cervical radiculopathy Chronic hypertension Congestive heart failure, acute 06/2017, admitted [facility]. Ruled 2/2 Takasubo CM. Degenerative disc disease, cervical Demyelinating disorder Diverticulitis (Resolved) Diverticulosis Gastritis (Chronic) Grief reaction (Resolved) Hematuria History of diverticulitis of colon (Resolved) History of gastritis (Resolved) History of hypotension (Inactive) History of myocardial infarction Hx-TIA (transient ischemic attack) Hyperlipidemia Hypertension (Inactive) Kidney infection (Resolved) CURRENT , RIGHT (ED [facility] LAST WEEK). JUST FINISHED ABX. X4 INFECTION OVER LAST 2 YRS Marijuana dependence Multiple sclerosis Multiple thyroid nodules NSTEMI (non-ST elevated myocardial infarction) 2017 [facility]. Cath performed showed mild to moderate non-obstructive CAD. Pulmonary emphysema Renal artery stenosis Takotsubo cardiomyopathy 2017. Admitted [facility], full cardiac workup including cath. EF at the time 40%, now resolved to 60-65% on echo 2018. Transient cerebrovascular ischemia (Resolved) Surgical History H/O cervical spine surgery ACDF C4-7 Dr. [place] History of cardiac cath 5-6 YR AGO - [place] - NO STENTS (per pt report, this cath not noted in cardiology notes) 2017, NSTEMI. NO INTERVENTION. 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 Beliefs That Will Affect Care: None marital status: Life Partner Current Living Situation: Significant Other current occupational status: employed current occupation: [employer] Other Information That Helps Us Care for You: No Feels Safe at Home: Yes Safety Concerns: Feels Safe At This Time Smoking Status: Former smoker Tobacco Type: cigarettes ; Age Started Using Tobacco: 17 ; Age Quit Using Tobacco: 46 ; packs per day: 2 ; Do You Dip or Chew Tobacco: No ; Second Hand Exposure: No ; Tobacco Cessation Education Requested by Patient: No Hx Alcohol Use: No Hx Substance Use: Yes substance use type: marijuana Last Used Substance: Days (ago) Dental Care, Regularly: No Physical Activity Frequency: Does not Exercise Seatbelt Use: always Review of Systems A total of 10 systems reviewed and were otherwise negative Physical Exam Vital Signs Vital Signs - 24 hr 07/17/19 07:24 07/17/19 08:30 07/17/19 09:27 Temperature 37.2 C Temperature Source Oral Pulse Rate 67 Pulse Rate [Finger] 71 70 Respiratory Rate 16 16 16 Blood Pressure 217/148 H Blood Pressure [Right Arm] 212/148 H 226/137 H Blood Pressure Mean 171 Blood Pressure Mean [Right Arm] 169 166 Pulse Oximetry 97 96 96 Oxygen Delivery Method Room Air Sepsis Recent Fever Within 48 Hours No Sepsis New/Unexplained Change in Mental Status No Sepsis Action Taken by Nursing No Action Required 07/17/19 09:34 07/17/19 09:56 07/17/19 10:04 Temperature Temperature Source Pulse Rate Pulse Rate [Finger] 96 H 83 79 Respiratory Rate 20 16 16 Blood Pressure Blood Pressure [Right Arm] 192/134 H 95/66 L 96/81 L Blood Pressure Mean Blood Pressure Mean [Right Arm] 153 75 86 Pulse Oximetry 95 96 96 Oxygen Delivery Method Non-rebreather Room Air Room Air Sepsis Recent Fever Within 48 Hours Sepsis New/Unexplained Change in Mental Status Sepsis Action Taken by Nursing CONSTITUTIONAL: Patient is a slightly sedated otherwise well-appearing 54-year-old female who is awake and alert and laying on the gurney. Her is at the bedside. She answers questions appropriately. At one point during the exam she does have some dry heaves. Blood pressure was noted to be elevated and was rechecked by me at the time of exam and was 213/149. EYES: Pupils pinpoint post surgically, otherwise equal, round, reactive to light and accommodation. EOMs intact without nystagmus. Sclera are anicteric. ENT: Tympanic membranes intact, with normal landmarks. External canals are clear. Oral and nasopharynx are clear. Mucous membranes are moist, no lesions, tongue and gums appear normal. Tongue and uvula are midline. Patient is edentulous. NECK: Slight right carotid bruit suspected. Well-healed anterior neck surgical scar. Supple without lymphadenopathy. No thyromegaly. No meningeal signs. Full active range of motion without discomfort. CARDIOVASCULAR: Regular rate and rhythm, with normal S1 and S2, no murmur or gallop or rub is heard. No JVD. Peripheral pulses easy to palpable. RESPIRATORY: Breath sounds equal and clear to auscultation without wheezes, rales, or rhonchi heard. Full and equal chest expansion without accessory muscle use or retractions. GI: Bowel sounds are present. Well-healed surgical scars are noted. Abdomen is soft, nontender, nondistended. No organomegaly. No pulsatile masses. No guarding or rebound. MUSCULOSKELETAL: Full range of motion of extremities x 4 with good strength. No cyanosis, edema, joint tenderness or swelling. No deformity. Upper and lower e xtremity DTRs are equal and symmetrical bilaterally. INTEGUMENTARY: No lesions or rash, normal skin turgor. NEUROLOGICAL: Alert, oriented, and cooperative. Cranial nerves, sensation and strength grossly intact. [id number], finger to finger and [id number]-[id number] testing within normal limits. Mini-Mental status exam is unremarkable. LYMPH: No lymphadenopathy. Course Course The patient was seen and assessed as above. Her old records were reviewed. History and presentation were reviewed with attending physician who concurred with the ED work-up. She presents to the emergency department for evaluation of 2 days of nausea, vomiting and diarrhea, with a headache this morning, elevated blood pressure readings at home and twitching in the left arm which is now resolved. She had an admission at this facility in March of this year for cannabinoid induced hyperemesis. She had an ED visit in April of this year for similar complaints. It was also noted that she saw orthopedics recently and was diagnosed with carpal tunnel syndrome and was placed in a wrist splint and is currently on a Medrol Dosepak. Patient was placed on a nuclear unit operator. EKG was performed. IV lock was initiated and laboratory studies were collected. CBC with differential, CMP, lipase, troponin, urinalysis and urine toxicology screen were ordered. Patient was hydrated with normal saline solution. She was medicated with Zofran IV for nausea, Toradol IV for her headache and was given clonidine 0.1 mg orally for her elevated blood pressure readings. Noncontrast CT of the head was obtained. Portable chest x-ray was performed. Laboratory studies noted a minimally elevated white count of 10,800 with left shift and bandemia noted. H&H is normal. Electrolytes are within normal limits. BUN and creatinine 24 and 0.98. Transaminases are normal. Lipase is within normal limits. Portable chest x-ray was obtained and was negative for acute cardiopulmonary findings. Patient was reassessed by myself. Her nausea had improved. She was now complaining of a frontal headache. She was on her way to CT scan. Around 0930, was called acutely to the room as the patient was exhibiting generalized seizure-like activity. Patient was immediately assessed by myself and Dr. Joshi. She was placed on a nonrebreather mask, vital signs remained stable during the entire episode. Seizure-like activity was noted for 30 to 60 seconds, then resolved. She was given Ativan 1 mg IV. At this point, CT scan results were available. Findings are consistent with a nonspecific right parietal lobe hypodensity which is new from prior exams. Possibilities included progression of white matter changes, infarct or other etiologies such as PRES could appear similar. MRI of the brain with and without contrast was recommended. The patient rapidly cleared from the seizure. She was awake and alert and answering questions appropriately. She was back to her baseline neurologically. She was loaded with a 20 mg/kg dose of Keppra. She was still hypertensive after the seizure and a nicardipine drip was ordered, however patient's blood pressure markedly improved, she was actually hypotensive after the seizure with blood pressure in the 90s over 80s, therefore nicardipine was held. MRI of the brain was ordered. All laboratory and diagnostic imaging studies were reviewed with attending physician. Admission for further work-up [facility] the time, Dr. Bojorquez. Patient otherwise remained hemodynamically stable while in the emergency department awaiting admission. Administered Medications Gadobutrol (Gadavist 65ml) 6.5 ml IV ONCE PRN PRN Reason: Interaction Checking Stop: 07/21/19 11:06 Last Admin: 07/17/19 11:07 Dose: 6.5 ml Documented by: [id number] Discontinued Medications Clonidine HCl (Catapres) 0.1 mg PO NOW ONE Stop: 07/17/19 08:03 Last Admin: 07/17/19 08:24 Dose: 0.1 mg Documented by: [id number] Sodium Chloride (Nss 1000ml) 1,000 mls @ 999 mls/hr IV .Q1H1M MIKE Stop: 07/17/19 09:04 Last Infusion: 07/17/19 09:57 Dose: 0 mls/hr Documented by: [id number] Admin: 07/17/19 08:26 Dose: 999 mls/hr Documented by: [id number] Levetiracetam 1,400 mg/ (Dextrose) 114 mls @ 440 mls/hr IV NOW STA Stop: 07/17/19 09:52 Last Infusion: 07/17/19 10:12 Dose: 0 mls/hr Documented by: [id number] Admin: 07/17/19 09:55 Dose: 440 mls/hr Documented by: [id number] Ketorolac Tromethamine (Toradol) 15 mg IV NOW STA Stop: 07/17/19 08:03 Last Admin: 07/17/19 08:24 Dose: 15 mg Documented by: [id number] Lorazepam (Ativan) Confirm Administered Dose 2 mg .ROUTE .STK-MED ONE Stop: 07/17/19 09:31 Last Increment: 07/17/19 09:31 Dose: 1 mg Documented by: [id number] Ondansetron HCl (Zofran) 4 mg IV NOW STA Stop: 07/17/19 08:03 Last Admin: 07/17/19 08:24 Dose: 4 mg Documented by: [id number] Medical Decision Making Differential Diagnosis Differential diagnoses entertained included intracranial mass or malignancy, acute intracranial hemorrhage, CVA/TIA, new onset seizure, malignant hypertension, hypertensive emergency, ACS, electrolyte or metabolic abnormality, medication side effect, among others. Medical Records Attestation: I reviewed the patient's medical records. Home Medications Current Medication List: was personally reviewed by me Laboratory Data Attestation: I reviewed the patient's lab results. Result diagrams: 07/17/19 06:55 07/17/19 06:55 Lab Results 07/17/19 07/17/19 Range/Units 06:55 06:55 WBC 10.83 H (4.8-10.8) K/uL RBC 4.87 (4.2-5.4) M/uL Hgb 15.1 (12.0-16.0) g/dL Hct 44.5 (37-47) % MCV 91.4 (80-100) fL MCH 31.0 (25-34) pg MCHC 33.9 (32-36) g/dL RDW Std Deviation 45.2 (36.4-46.3) fL RDW Coeff of Jose Luis 13.6 (11.5-14.5) % Plt Count 356 (130-400) K/uL MPV 10.2 (7.4-10.4) fL Immature Gran % (Auto) 0.3 % Neut % (Auto) 80.0 % Lymph % (Auto) 15.1 % [place] % (Auto) 3.7 % Eos % (Auto) 0.5 % Baso % (Auto) 0.4 % Immature Gran # (Auto) 0.03 H (0.00-0.02) K/uL Neut # (Auto) 8.68 H (1.4-6.5) K/uL Lymph # (Auto) 1.63 (1.2-3.4) K/uL [place] # (Auto) 0.40 (0.11-0.59) K/uL Eos # (Auto) 0.05 (0-0.5) K/uL Baso # (Auto) 0.04 (0-0.2) K/uL Sodium 137 (136-145) mmol/L Potassium 4.0 (3.5-5.1) mmol/L Chloride 104 (98-107) mmol/L Carbon Dioxide 25 (21-32) mmol/L Anion Gap 8.0 (3-11) BUN 24 H (7-18) mg/dl Creatinine 0.98 (0.6-1.2) mg/dl Est Cr Clr Drug Dosing 63.7 ml/min Est GFR ( Amer) 76.3 Est GFR (Non-Af Amer) 65.9 BUN/Creatinine Ratio 24.7 H (10-20) Glucose 151 H (70-99) mg/dl Calcium 10.2 H (8.5-10.1) mg/dl Total Bilirubin 0.4 (0.2-1) mg/dl AST 23 (15-37) U/L ALT 27 (12-78) U/L Alkaline Phosphatase 96 (45-117) U/L Troponin I 0.017 (0-0.045) ng/ml Total Protein 8.5 H (6.4-8.2) gm/dl Albumin 4.1 (3.4-5.0) gm/dl Globulin 4.4 H (2.5-4.0) gm/dl Albumin/Globulin Ratio 0.9 (0.9-2) Lipase 150 (73-393) U/L Imaging Data Attestation: I personally reviewed and interpreted this imaging study as follows: Radiologist's Impression: XR chest 1V portable CLINICAL HISTORY: hypertension, vomiting COMPARISON STUDY: Chest radiograph April 22, 2019. FINDINGS: Lung volumes are normal. Lungs are clear. There is no pneumothorax or pleural effusion. Cardiac size is normal. Mediastinal contours are normal. There is no evidence for pulmonary edema. Incidental note is made of postoperative findings within the cervical spine and a healed right seventh rib fracture. IMPRESSION: No acute cardiopulmonary findings. CT OF THE HEAD WITHOUT CONTRAST CLINICAL HISTORY: headache, hypertension COMPARISON STUDY: MRI of the brain December 16, 2018. Head CT April 03, 2018. CT DOSE: 767.83 mGy.cm TECHNIQUE: Helical axial images of the head were obtained without IV contrast. Automated exposure control was utilized for the study. A dose lowering technique was utilized adhering to the principles of ALARA. FINDINGS: No acute intracranial hemorrhage, midline shift or mass effect is present. The ventricular system is unremarkable. The basilar cisterns are p atent. No extra-axial collections are present. There are no findings to suggest acute dural sinus thrombosis or acute territorial infarct. No significant calvarial abnormalities are present. Visualized portions of the sinuses and mastoid air cells are clear. White matter hypodensities are similar to prior exams with exception of hypodensity involving the right parietal lobe shown on axial images 10 and 11 of 12. IMPRESSION: 1. No acute intracranial hemorrhage. 2. Nonspecific right parietal lobe hypodensity which was not evident on prior exams. This could represent progression of white matter process shown on prior exams. However, an infarct or other etiologies such as PRES could appear sim ilar. An MRI of the brain with and without contrast is recommended. MRI OF THE BRAIN WITHOUT AND WITH IV CONTRAST SEIZURE PROTOCOL CLINICAL HISTORY: ABNORMAL CT, NEW ONSET SEIZURE, HTN COMPARISON STUDY: MRI of the brain December 16, 2018. Head CT performed earlier today. TECHNIQUE: Utilizing a 1.5 Niyah magnet and dedicated coil, multiplanar, multiecho imaging of the brain was performed pre and postcontrast administration. IV administration of 6.5 mL of Gadavist contrast was uneventful. Thin cut coronal T2 imaging was performed according to seizure protocol. FINDINGS: There are no foci of restricted diffusion to suggest acute infarct. A few foci of increased signal intensity within the bilateral parietal and occipital lobes on diffusion-weighted sequence represent T2 shine through. There has been interval development of multiple cortical/subcortical T2 hyperintense foci within the bilateral occipital and parietal lobes since MRI of December 16, 2018. The largest of these corresponds to the finding on head CT from earlier today. There is no associated enhancement. Additional white matter T2 hyperintense foci are similar to MRI of December 16, 2018. Ventricular system is normal. The basilar cisterns are patent. There are no extra-axial collections. There is no intracranial mass or pathologic enhancement. No lacunar infarct within left cerebellar hemisphere is noted. A nasopharyngeal cyst is unchanged. IMPRESSION: 1. Interval development of cortical/subcortical T2 hyperintensity within the bilateral occipital and parietal lobes since MRI of December 16, 2018. The largest focus within the right parietal lobe corresponds to the finding on head CT from earlier today. No associated enhancement or restricted diffusion. The imaging findings suggest posterior reversible encephalopathy syndrome (PRES). 2. No evidence for acute infarct. No acute intracranial hemorrhage. 3. Additional white matter T2 hyperintense foci are similar to MRI of December 16, 2018 and remain nonspecific. ECG Data Attestation: I personally reviewed and interpreted this ECG as follows: Indication: + other (hypertension, headache) Rate (beats per minute): 71 Rhythm: + normal sinus ECG Intervals/blocks: + Normal QT ECG [place]: + Left axis deviation ECG ST segments: + Normal ST segments; no ST depression, no ST elevation and no T-wave inversions Comparison ECG Date: from (03/2019) Change: no significant change Blood Pressure Blood Pressure Findings: Elevated blood pressure Blood Pressure Disposition: further management by hospitalist MDM Narrative See ED Course. Impression & Plan New onset seizure, Malignant hypertension Discharge Plan Visit Data *Final* Discharge Date/Time: 07/17/19 12:10 Chief Complaint: Headache ED Provider: Igor Joshi ED Midlevel Provider: Silvio Guillen Discharge Problem: New onset seizure, Malignant hypertension Patient Disposition: Admitted As Inpatient Discharge Instructions Interventions: ED Discharge Assessment Last Done: 07/17/19 12:10
[2019-07-17 08:25] LABS: Albumin Level 4.1 gm/dl (3.4-5.0); BUN Creatinine Ratio 24.7 (10-20); Calcium 10.2 mg/dl (8.5-10.1); Creatinine Clr Calc Pharmacy 63.7 ml/min; Est GFR (African American) 76.3; Est GFR (Non-African American) 65.9
[2019-07-17 08:29] LABS: Albumin Globulin Ratio 0.9 (0.9-2); Bilirubin,Total 0.4 mg/dl (0.2-1); Globulin 4.4 gm/dl (2.5-4.0); Total Protein 8.5 gm/dl (6.4-8.2); Troponin I 0.017 ng/ml (0-0.045)
--- NOTE | 2019-07-17 08:52 | XRay Report ---
XR chest 1V portable CLINICAL HISTORY: hypertension, vomiting COMPARISON STUDY: Chest radiograph April 22, 2019. FINDINGS: Lung volumes are normal. Lungs are clear. There is no pneumothorax or pleural effusion. Car diac size is normal. Mediastinal contours are normal. There is no evidence for pulmonary edema. Incid ental note is made of postoperative findings within the cervical spine and a healed right seventh rib fracture. IMPRESSION: No acute cardiopulmonary findings. Electronically signed by: Flynn Shipley M.D. 07/17/2019 8:51 AM
[2019-07-17] MEDS ORDERED: LORazepam 2 MG/4 ML VIAL ONE (09:30)
--- NOTE | 2019-07-17 09:30 | CT Scan Report ---
CT OF THE HEAD WITHOUT CONTRAST CLINICAL HISTORY: headache, hypertension COMPARISON STUDY: MRI of the brain December 16, 2018. Head CT April 03, 2018. CT DOSE: 767.83 mGy.cm TECHNIQUE: Helical axial images of the head were obtained without IV contrast. Automated exposure con trol was utilized for the study. A dose lowering technique was utilized adhering to the principles o f ALARA. FINDINGS: No acute intracranial hemorrhage, midline shift or mass effect is present. The ventricular system is unremarkable. The basilar cisterns are patent. No extra-axial collections are present. Ther e are no findings to suggest acute dural sinus thrombosis or acute territorial infarct. No significan t calvarial abnormalities are present. Visualized portions of the sinuses and mastoid air cells are c lear. White matter hypodensities are similar to prior exams with exception of hypodensity involving t he right parietal lobe shown on axial images 10 and 11 of 12. IMPRESSION: 1. No acute intracranial hemorrhage. 2. Nonspecific right parietal lobe hypodensity which was not evident on prior exams. This could repre sent progression of white matter process shown on prior exams. However, an infarct or other etiologie s such as PRES could appear similar. An MRI of the brain with and without contrast is recommended. Electronically signed by: Flynn Shipley M.D. 07/17/2019 9:29 AM
[2019-07-17] MEDS ORDERED: DEXTROSE 5% IV STA (09:37)
[2019-07-17] MEDS ORDERED: LEVETIRACETAM IV STA (09:37)
--- NOTE | 2019-07-17 10:47 | History & Physical Report ---
Date of Service July 17, 2019 Assessment & Plan (1) New onset seizure: Cyndie Velasquez is a 54 y/o female with past medical hx of CAD, chronic nausea/vomiting, marijuana dependence, HTN, HLD, cervical disc disease who presented to [facility] ED via EMS for upper extremity tremors, expressive aphasia, elevated home BP with systolic in 200s. She had new onset tonic/clonic seizures with ED workup suggesting Posterior Reversible Encephalopathy Syndrome. Currently at neuro baseline on medical floor. She recently started using Prednisone, which can elevate blood pressures. However, she reports Polyuria and Polydipsia with nausea and vomiting, not controlled as ran out of Zofran. I believe that this lead to a hypovolemic state. She wears a Clonidine TD patch for her HTN. This hypovolemic state would then lead to reduced cutaneous absorption of Clonidine from vasoconstriction. This would then set her up for Hypertensive rebound from not being able to absorb her Clonidine, leading to a Hypertensive Emergency with acute end organ encephalopathy causing her seizure. She did receive 1L NSS Bolus in ED that most likely helped her HTN allowing her to absorb Clonidine Patch dose. - Will place patient on seizure precautions - Neurology consulted, will defer if to continue with Keppra - She is back to neuro baseline, okay to eat, ordered diabetic type 2 diet - Okay to continue her home meds - Plan to keep well hydrated and continue her Clonidine patch to allow adequate absorption to prevent rebound HTN - Hydralazine 10mg IV q6h for BP >180/>110 - Monitor I&O for fluid status - Cardiac monitoring, hemodynamic monitoring FENGI: Carb consistent/Type 2 Diet; Pepcid 20mg PO for GI since recent Prednisone use DVTPPx: Lovenox 40mg SQ daily Code: Full Code (2) Hypertensive emergency: With BP readings in ED of 200s-220s/110s and signs of acute end organ damage causing seizure and encephalopathy with expressive aphasia Now currently with BP of 90s-80s/60s Continue with Clonidine patch and home Toprol XL 100mg PO BID Hydralazine as noted above PRN Hold home Lisinopril in setting of HTN Emergency and to follow for signs of renal end organ damage (3) PRES (posterior reversible encephalopathy syndrome): From CT Head showing: Nonspecific right parietal lobe hypodensity which was not evident on prior exams. This could represent progression of white matter process shown on prior exams. However, an infarct or other etiologies such as PRES could appear similar. An MRI of the brain with and without contrast is recommended. Then MRI Showing Interval development of cortical/subcortical T2 hyperintensity within the bilateral occipital and parietal lobes since MRI of December 16, 2018. The largest focus within the right parietal lobe corresponds to the finding on head CT from earlier today. No associated enhancement or restricted diffusion. The imaging findings suggest posterior reversible encephalopathy syndrome (PRES). Likely secondary to HTN Emergency. (4) Elevated glucose: Recent oral Prednisone use leading to elevated glucose causing osmotic diuresis No prior hx of DM Ordered A1C = 6.1, pre-diabetes possibly BSG ACHS (5) Nausea and vomiting: No active vomiting C/w home Zofran 4mg PO Q6H PRN Chronic, discussed possible Marijuana Cyclical Vomiting Syndrome with patient, no wishes to discontinue to see if chronic issues resolve Likely exacerbated by Predisone and elevated glucose (6) History of myocardial infarction: Per hx, continue with Clopidogrel 75mg PO qam; Lipitor 40mg PO HS (7) Takotsubo cardiomyopathy: Reported history, followed with Cardiology and resolved (8) Carotid stenosis: Per hx, continue with Clopidogrel 75mg PO qam; Lipitor 40mg PO HS (9) CAD (coronary artery disease): Per hx, continue with Clopidogrel 75mg PO qam; Lipitor 40mg PO HS (10) Pulmonary emphysema: History of 30 pack years Quit smoking 8 years ago reported from prior hx (11) Hyperlipidemia: Per hx, continue with Lipitor 40mg PO HS (12) Marijuana dependence: Last used yesterday Not willing to quit Discussed Cyclical Vomiting Syndrome with patient as possible contributor (13) Anxiety disorder: Continue with home Sertraline 100mg PO History of Present Illness Chief Complaint: Seizure Primary Care Provider: DO Cyndie Romero is a 54 y/o female with past medical hx of CAD, nausea/vomiting, marijuana dependence, HTN, HLD, who presented to [facility] ED via EMS for upper extremity tremors and expressive aphasia. She notes that this morning she had onset of posterior headache; both her arms were moving involuntarily, would become rigid, and also stated she knew what she wanted to say but had a hard time getting words out. She states she felt weird, unspecific symptoms no visual/auditory hallucinations, during EMS transport than had a seizure. This was reported by patient, and I haven't been able to review the EMS report. When she arrived to the ED, she was found to have significantly elevated BP (200-220s/100-125), she was treated with an oral dose of Clonidine when she had about a one minute episode of a tonic/clonic seizure. She was treated with Ativan and had no injury, no tongue injury, she was reported to return to neuro baseline quickly. They were ready to start a Cardizem drip for HTN Emergency but her Blood pressures returned to 90s/60s. She had a CT Head CT Scan showed a Nonspecific right parietal lobe hypodensity which was not evident on prior exams. This could represent progression of white matter process shown on prior exams. However, an infarct or other etiologies such as PRES could appear similar. An MRI of the brain with and without contrast is recommended. A MRI was ordered Interval development of cortical/subcortical T2 hyperintensity within the bilateral occipital and parietal lobes since MRI of December 16, 2018. The largest focus within the right parietal lobe corresponds to the finding on head CT from earlier today. No associated enhancement or restricted diffusion. The imaging findings suggest posterior reversible encephalopathy syndrome (PRES). 2. No evidence for acute infarct. She also received Keppra 1400mg IV in ED. She reports no prior history of seizures or recent head trauma. Cyndie noted that for the past 3 days she has generally not felt well. She notes that she started Prednisone on for right hand tingling by her Ortho physician. She noted that since starting that medication, she had polydipsia, polyuria. She also reports episodes of Nausea and Vomiting which she has a history of, undiagnosed etiology treated at home with Zofran, but she had run out of her Zofran as well. She notes taking her BP at home at it was elevated 150s systolic but then today at home had systolic readings in 200s. Cyndie denies any prior history of Diabetes Mellitus. Cyndie notes being compliant with all other medications, and also to being on a Clonidine patch for HTN. Cyndie gives history of workup for Multiple Sclerosis which was seen on imaging but then was felt not to be MS on repeat imaging and that she had a Lumbar Puncture that was negative for findings of MS. She noted she had upper extremity numbness and weakness but this was found to be cervical degenerative disc disease from C3-C7 that was treated with surgery. Cyndie reports daily marijuana use for the past 10 years that she notes helps wi th weight game when she had unknown weight loss to a weight less than 100 pounds. She also notes that it helps with her anxiety as well. She gets this from a friend and states is in the process to get Medical Marijuana. She denies any other illicit drug use or alcohol use. Allergies Allergy/AdvReac Type Severity Reaction Status Date / Time napoles Allergy Intermediate Hives Verified 07/17/19 09:51 doxycycline Allergy Intermediate hives and Verified 07/17/19 09:51 vomitting Iodinated Contrast Media Allergy Intermediate GIANT Verified 07/17/19 09:51 HIVES , VOMITTING, BODY FEELS HOT meperidine Allergy Intermediate HIVES, Verified 07/17/19 09:51 VOMITING prochlorperazine Allergy Intermediate N/V, Verified 07/17/19 09:51 ITCHINESS strawberry Allergy Intermediate HIVES Verified 07/17/19 09:51 tomato Allergy Intermediate HIVES Verified 07/17/19 09:51 iodine Allergy . Verified 07/17/19 09:51 latex AdvReac Mild RASH Verified 07/17/19 09:51 Imperim Allergy . Uncoded 07/17/19 09:51 Home Medications Home Medications Medication Instructions Recorded Confirmed Type multivitamin 1 tab PO QAM 12/16/18 07/17/19 History atorvastatin [Lipitor] 40 mg PO HS 07/17/19 07/17/19 History clonidine [[id number]] 1 patch TOPICAL WK 07/17/19 07/17/19 History clopidogrel [Plavix] 75 mg PO QAM 07/17/19 07/17/19 History losartan [Cozaar] 100 mg PO QAM 07/17/19 07/17/19 History metoprolol succinate [Toprol XL] 100 mg PO BID 07/17/19 07/17/19 History ondansetron 4 mg PO Q6H PRN 07/17/19 07/17/19 History promethazine 25 mg PO Q6H PRN 07/17/19 07/17/19 History sertraline [Zoloft] 100 mg PO HS 07/17/19 07/17/19 History Past Med/Surg History Medical History Acute UTI (Resolved) Anxiety disorder CAD (coronary artery disease) Mild-moderate non-obstructive Carotid stenosis < 50% stenosis B/L per US 12/16/18 Cervical disc disorder Cervical radiculopathy Chronic hypertension Congestive heart failure, acute 06/2017, admitted [facility]. Ruled 2/2 Takasubo CM. Degenerative disc disease, cervical Demyelinating disorder Diverticulitis (Resolved) Diverticulosis Gastritis (Chronic) Grief reaction (Resolved) Hematuria History of diverticulitis of colon (Resolved) History of gastritis (Resolved) History of hypotension (Inactive) History of myocardial infarction Hx-TIA (transient ischemic attack) Hyperlipidemia Hypertension (Inactive) Kidney infection (Resolved) CURRENT , RIGHT (ED [facility] LAST WEEK). JUST FINISHED ABX. X4 INFECTION OVER LAST 2 YRS Marijuana dependence Multiple sclerosis Multiple thyroid nodules NSTEMI (non-ST elevated myocardial infarction) 2017 [facility]. Cath performed showed mild to moderate non-obstructive CAD. Pulmonary emphysema Renal artery stenosis Takotsubo cardiomyopathy 2017. Admitted [facility], full cardiac workup including cath. EF at the time 40%, now resolved to 60-65% on echo 2018. Transient cerebrovascular ischemia (Resolved) Surgical History H/O cervical spine surgery ACDF C4-7 Dr. [place] History of cardiac cath 5-6 YR AGO - CA - NO STENTS (per pt report, this cath not noted in cardiology notes) 2017, NSTEMI. NO INTERVENTION. History of hernia surgery History of hysterectomy History of ovarian cystectomy S/P cervical discectomy Family History Father Family history of stomach cancer Stroke Myocardial infarction Malignant neoplasm of esophagus Stomach cancer Uncle Family history of cancer FAMILY HISTORY OF CANCER - UNCLE - VOCAL CORDS FAMILY HISTORY OF CANCER - AUNT - ? KIND Throat cancer Grandmother (Maternal) Family history of breast cancer Family history of bone cancer Cancer bone Breast cancer Bone cancer Grandmother Bone cancer Other No pertinent family history Social History Preferred Language: Pashto Communication Ability: Effective Visual Impairment: Limited Hearing Ability: Normal Rn Home Health Required: No Beliefs That Will Affect Care: None marital status: Life Partner Current Living Situation: Significant Other current occupational status: employed current occupation: [employer] Other Information That Helps Us Care for You: No Feels Safe at Home: Yes Safety Concerns: Feels Safe At This Time Smoking Status: Former smoker Tobacco Type: cigarettes ; Age Started Using Tobacco: 17 ; Age Quit Using Tobacco: 46 ; packs per day: 2 ; Do You Dip or Chew Tobacco: No ; Second Hand Exposure: No ; Tobacco Cessation Education Requested by Patient: No Hx Alcohol Use: No Hx Substance Use: Yes substance use type: marijuana Last Used Substance: Days (ago) Dental Care, Regularly: No Physical Activity Frequency: Does not Exercise Seatbelt Use: always Review of Systems Review of Systems: All systems reviewed & are unremarkable except as noted in HPI & below Eyes: as per Subjective / HPI Respiratory: no dyspnea Cardiovascular: no chest pain Physical Exam Constitutional: WD/WN, vitals as above cooperative and comfortable sleeping in exam bed, easily arousable Eyes: + anicteric sclerae, PERRL and EOM intact bilaterally ENMT: external ear and nose normal, oropharynx normal Mouth: no mouth trauma Throat: no posterior oropharynx abnormality and no lateral displacement of uvula No tongue injury Neck: trachea midline old anterior inferior surgical scar consistent with h/o prior discectomy Respiratory: normal respiratory effort, lungs clear to auscultation Cardiovascular: Rate/Rhythm: regular rate and regular rhythm distant heart sounds Gastrointestinal (Abdomen): Percussion/Palpation: abdomen soft; abdomen nontender, no guarding and abdomen not rigid Musculoskeletal: Head/Neck/Chest: normocephalic and head atraumatic Extremities: extremities normal to inspection and strength 5/5 throughout Skin: no rashes, warm and dry Neurologic: moves all extremities and awake; no focal motor deficits, no meningeal signs, not confused and not obtunded Speech / Cognition: normal speech and no expressive aphasia Cranial Nerves: EOM intact bilaterally, tongue midline and able to rotate head bilaterally No sensory deficits to extremities Psychiatric: A+Ox3, euthymic affect Results & Data Vital Signs (Past 12 Hours) Vital Signs Temp Pulse Pulse Resp BP BP Pulse Ox 07/17/19 10:04 79 16 96/81 L 96 07/17/19 09:56 83 16 95/66 L 96 07/17/19 09:34 96 H 20 192/134 H 95 07/17/19 09:27 70 16 226/137 H 96 07/17/19 08:30 71 16 212/148 H 96 07/17/19 07:24 37.2 C 67 16 217/148 H 97 Code Status & VTE Plan Code Status Full Code VTE Prophylaxis Plan VTE Prophylaxis will be ordered: Yes Supervising Physician Co-Signing Physician Notes I personally examined the patient and verified all real points of history and exam, discussed case, and agree with decision making with Dr Maher. Feeling better now. Reiterates the same HPI as above noted that she was feeling lousy for a couple of days poor oral intake nausea and vomiting. This morning felt very bad and weird, in the ambulance she started to feel extremely weird and then did not remember anything until basically in the ER, it was reported she had a tonic-clonic seizure then. Then in the ER she had another seizure that she does not remember. She notes her blood pressure certainly were higher today than ever before. She does have ongoing nausea vomiting for no clearly definable cause that she knows of that is been going on for years, although her extremely frequent use of marijuana seems to predate this. We see her she otherwise actually feels surprisingly fine. Vitals noted, general she is awake and alert pleasant no distress. HEENT normocephalic atraumatic mucous membranes are moist, neck is supple, she is edentulous. Cardio is regular without rubs murmurs or gallops, lungs clear to auscultation bilaterally no rales rhonchi or wheezes good effort. Skin shows no rashes no pallor or icterus. Abdomen is soft nondistended nontender no masses organomegaly. Extremities show no cyanosis clubbing or edema no calf tenderness. Neuro shows cranial nerves II through XII be grossly intact gross motor and sensory intact and equal bilaterally. Mental status shows good recent and remote recall normal mood and affect good judgment and insight. PRESseries of events seems to have been steroids for her cervical radiculopathy escalating sugar and blood pressure, leading to hypertension and dehydration, it is possible that in that state her clonidine patch was no longer being absorbed quite as well and she had rebound hypertension, is also quite possible that she simply had a hypertensive reaction to the prednisone superimposed on her baseline hypertension, and least likely but it is possible that there was another substance in her marijuana that she smoke leading to hypertension as well. At any rate her pressures were significantly high leading to the PRES leading to the seizure. She appears stable now. Her pressures actually spontaneously dropped far further than we would have medically induced after her second seizure. Right now she appears awake alert and neurologically intact. We will continue Keppra for now titrate blood pressure control as needed, although again she seems to have spontaneously remitted from the market hypertension that she had had. Recurrent nausea and vomitingwe will try to do again further to what her prior history is, but we did discuss that with the prevalence of marijuana use becoming more widespread, we are seeing a bit more thick cannabis related hyperemesis is more common than once thought. Otherwise as above. will hold on pharmacologic DVT proph for now until she shows clear and ongoing neurologic stability. will add compression. Resident Activity Tracking Resident Involvement: Resident Care Provided Care Provided: Adult Hospital Medicine
[2019-07-17] MEDS ORDERED: GADOBUTROL 65ML VIAL IV PRN (11:07)
--- NOTE | 2019-07-17 11:34 | Magnetic Resonance Report ---
MRI OF THE BRAIN WITHOUT AND WITH IV CONTRAST SEIZURE PROTOCOL CLINICAL HISTORY: ABNORMAL CT, NEW ONSET SEIZURE, HTN COMPARISON STUDY: MRI of the brain December 16, 2018. Head CT performed earlier today. TECHNIQUE: Utilizing a 1.5 Niyah magnet and dedicated coil, multiplanar, multiecho imaging of the br ain was performed pre and postcontrast administration. IV administration of 6.5 mL of Gadavist contr ast was uneventful. Thin cut coronal T2 imaging was performed according to seizure protocol. FINDINGS: There are no foci of restricted diffusion to suggest acute infarct. A few foci of increased signal intensity within the bilateral parietal and occipital lobes on diffusion-weighted sequence re present T2 shine through. There has been interval development of multiple cortical/subcortical T2 hyp erintense foci within the bilateral occipital and parietal lobes since MRI of December 16, 2018. The large st of these corresponds to the finding on head CT from earlier today. There is no associated enhancem ent. Additional white matter T2 hyperintense foci are similar to MRI of December 16, 2018. Ventricular sys tem is normal. The basilar cisterns are patent. There are no extra-axial collections. There is no int racranial mass or pathologic enhancement. No lacunar infarct within left cerebellar hemisphere is not ed. A nasopharyngeal cyst is unchanged. IMPRESSION: 1. Interval development of cortical/subcortical T2 hyperintensity within the bilateral occipital and parietal lobes since MRI of December 16, 2018. The largest focus within the right parietal lobe correspond s to the finding on head CT from earlier today. No associated enhancement or restricted diffusion. Th e imaging findings suggest posterior reversible encephalopathy syndrome (PRES). 2. No evidence for acute infarct. No acute intracranial hemorrhage. 3. Additional white matter T2 hyperintense foci are similar to MRI of December 16, 2018 and remain nonspec ific. Electronically signed by: Flynn Shipley M.D. 07/17/2019 11:32 AM
[2019-07-17] MEDS ORDERED: ALUMINUM/MAGNESIUM SUSP 30 ML UDC PO PRN (12:15)
[2019-07-17] MEDS ORDERED: POLYETHYLENE (MIRALAX) 17 GM PACK PO PRN (12:15)
[2019-07-17] MEDS ORDERED: ONDANSETRON 4 MG OD TAB PO PRN (12:15)
[2019-07-17] MEDS ORDERED: MAGNESIUM HYDROXIDE SUSP 30 ML UDC PO PRN (12:15)
[2019-07-17] MEDS ORDERED: ACETAMINOPHEN 325 MG TAB PO PRN (12:15)
[2019-07-17] MEDS ORDERED: ENOXAPARIN INJ 40 MG/0.4 ML SYR SQ SCH (14:00)
[2019-07-17 14:03] LABS: Estimated Average Glucose 128 mg/dl; Hemoglobin A1C 6.1 % (4.5-5.6)
[2019-07-17] MEDS ORDERED: HydrALAZINE HCL 20 MG/ML VIAL IV PRN (14:34)
[2019-07-17] MEDS: LACTATED RINGER'S 1,000 ML IV SCH (15:40)
[2019-07-17] MEDS ORDERED: ONDANSETRON 4 MG OD TAB SL PRN (16:53)
[2019-07-17] MEDS: FAMOTIDINE 20 MG TAB PO SCH (17:55)
[2019-07-17] MEDS: CHECK CLONIDINE PATCH PLACEMENT SCH (17:55)
--- NOTE | 2019-07-17 17:56 | Billing Data ---
Date of Service July 17, 2019 Coding Level of Care Code 40606 Initial Inpt Care Lvl 3
[2019-07-17 18:35] LABS: Amphetamines+Metham, Urine Neg (Neg); Barbiturates, Urine Neg (Neg); Benzodiazepine, Urine Neg (Neg); Cocaine, Urine Neg (Neg); MDMA (Ecstacy), Urine Neg (Neg); Methadone, Urine Neg (Neg); Opiate, Urine Neg (Neg); Phencyclidine, Urine Neg (Neg)
[2019-07-17] MEDS: SERTRALINE HCL 100 MG TABLET PO SCH (20:36)
[2019-07-17] MEDS: ATORVASTATIN 40 MG TAB PO SCH (20:36)
[2019-07-17] MEDS: METOPROLOL SUCC 50MG EXT REL TAB PO SCH (20:36)
[2019-07-17] MEDS: levETIRAcetam 500 MG TAB PO SCH (20:36)
[2019-07-18] MEDS: CHECK CLONIDINE PATCH PLACEMENT SCH ×3 (00:05→16:53)
[2019-07-18] MEDS: LACTATED RINGER'S 1,000 ML IV SCH (03:35)
[2019-07-18] MEDS: CLOPIDOGREL BISULFATE 75 MG TAB PO SCH (08:01)
[2019-07-18] MEDS: FAMOTIDINE 20 MG TAB PO SCH (08:01)
[2019-07-18] MEDS: MULTIVITAMIN TAB PO SCH (08:01)
[2019-07-18] MEDS: METOPROLOL SUCC 50MG EXT REL TAB PO SCH ×2 (08:01→20:47)
[2019-07-18] MEDS: levETIRAcetam 500 MG TAB PO SCH (08:01)
[2019-07-18 08:22] LABS: Hematocrit (blood only) 38.2 % (37-47); Hemoglobin 12.6 g/dL (12.0-16.0); Mean Corpuscular Hemoglobin 30.8 pg (25-34); Mean Corpuscular Volume 93.4 fL (80-100); Mean Platelet Volume 9.5 fL (7.4-10.4); Platelet Count 259 K/uL (130-400); RDW Coefficient of Variation 13.7 % (11.5-14.5); RDW Standard Deviation 46.3 fL (36.4-46.3); Red Blood Count 4.09 M/uL (4.2-5.4); White Blood Count 6.75 K/uL (4.8-10.8)
[2019-07-18 08:58] LABS: Albumin Level 3.2 gm/dl (3.4-5.0); BUN Creatinine Ratio 28.2 (10-20); Creatinine Clr Calc Pharmacy 78.3 ml/min; Est GFR (African American) 97.6; Est GFR (Non-African American) 84.2; Magnesium 1.9 mg/dl (1.8-2.4); Potassium 3.7 mmol/L (3.5-5.1)
[2019-07-18 09:03] LABS: Albumin Globulin Ratio 0.9 (0.9-2); Bilirubin,Total 0.5 mg/dl (0.2-1); Globulin 3.5 gm/dl (2.5-4.0); Phosphorus 2.4 mg/dl (2.5-4.9); Total Protein 6.7 gm/dl (6.4-8.2)
[2019-07-18] MEDS ORDERED: POTASSIUM PHOS 3 MMOL/1 ML INFUSION IV STA (09:47)
--- NOTE | 2019-07-18 10:02 | Neurology Consultation ---
Date of Consultation July 18, 2019 Assessment & Plan (1) PRES (posterior reversible encephalopathy syndrome): Cyndie Velasquez is a 54 yo woman w/ PMH of hypertension, hyperlipidemia, CAD, marijuana abuse complicated by hyperemesis cannabinoid syndrome, anxiety/depression cervical spinal stenosis who presents to [facility] after "not feeling well" # PRES: likely 2/2 hypertensive crisis - SBP CAP 160, IV labetalol vs cleviprex or nicardipine gtt prn - restart home BP medications with goal to slowly aim for normotension over next few days - continue keppra 750mg bid, will re-address in the outpatient setting the necessity of staying on it - submit DMV form given seizure, no driving for 6 months (reports that she already doesn't drive 2/2 cataracts) - monitor for any neurological changes c/f stroke or ICH - follow up in neurology clinic in 2-4 weeks # HTN: given recurrent admissions for hypertensive urgency or emergency, will need to have discussion with her regarding the severity of this presentation and need to better control BP at home (PRES recurs rarely/<10%) - defer to primary team for BP management on discharge # Moderate-severe SVID: most likely 2/2 poorly controlled HTN, smoking. Has had previous negative workups for MS in the past and lesions do not look c/w MS, nor does she have a clinical history c/f MS. Thank you for this interesting consult. Please text or call with questions. (2) Hypertensive emergency: (3) New onset seizure: (4) Cannabinoid hyperemesis syndrome: History of Present Illness Attending Physician: Souleymane Lobato, History of Present Illness Cyndie Velasquez is a 54 yo woman w/ PMH of hypertension, hyperlipidemia, CAD, marijuana abuse complicated by hyperemesis cannabinoid syndrome, anxiety/depression cervical spinal stenosis who presents to [facility] after "not feeling well". In the ED, she provided the history that she had been ill with nausea, vomiting and diarrhea for the last 2 days. She woke up yesterday morning around 3 AM with a severe throbbing occipital headache and vomited several times. Her has also noted some twitching in her left arm for about 30 to 45 minutes prior to calling EMS. They also noted that her blood pressure was severely elevated at 240/140. In the ED, she noted that she had smoked marijuana the day prior and felt like she had some blurry vision. CTH was obtained that was concerning for possible new hypodensity in the right parietal lobe. Around 9:30am, she had a witnessed GTC in the ED. She received 1mg ativan and was loaded with 1400mg keppra. MRI brain was urgently obtained and was c/w PRES affecting bilateral parieto-occipital lobes, stable moderate-severe SVID. Labs showed WBC 10.83, Hb 15.1, Plts 356, Na 137, K 4.0, BUN 24, Cr 0.98, glucose 151, A1c 6.1, calcium mildly elevated at 10.2, LFTs WNL, UDS + for marijuana. Of note, blood pressure initially elevated in ED, got clonidine patch, and then BP dropped to the 90s systolic before re-normalizing. On examination today, she denies any current complaints including vision changes, headache, weakness, new numbness. She does report that she had seen her surgeon earlier this week for right hand numbness in 1st-3rd digits; was prescribed steroids and wrist brace. She also recently had cataract surgery performed. Reports that she smokes marijuana to help with her nausea and appetite (no insight into hyperemesis cannabinoid syndrome). Denies missing any doses of her home blood pressure medications but did report that Friday AM BP reading was in the 180s/140s prior to meds, and 140s/70s after meds. Allergies Allergy/AdvReac Type Severity Reaction Status Date / Time napoles Allergy Intermediate Hives Verified 07/17/19 09:51 doxycycline Allergy Intermediate hives and Verified 07/17/19 09:51 vomitting Iodinated Contrast Media Allergy Intermediate GIANT Verified 07/17/19 09:51 HIVES , VOMITTING, BODY FEELS HOT meperidine Allergy Intermediate HIVES, Verified 07/17/19 09:51 VOMITING prochlorperazine Allergy Intermediate N/V, Verified 07/17/19 09:51 ITCHINESS strawberry Allergy Intermediate HIVES Verified 07/17/19 09:51 tomato Allergy Intermediate HIVES Verified 07/17/19 09:51 iodine Allergy . Verified 07/17/19 09:51 latex AdvReac Mild RASH Verified 07/17/19 09:51 Imperim Allergy . Uncoded 07/17/19 09:51 Home Medications Home Medications Medication Instructions Recorded Confirmed Type multivitamin 1 tab PO QAM 12/16/18 07/17/19 History atorvastatin [Lipitor] 40 mg PO HS 07/17/19 07/17/19 History clonidine [Udypzeif-JMR-6] 1 patch TOPICAL WK 07/17/19 07/17/19 History clopidogrel [Plavix] 75 mg PO QAM 07/17/19 07/17/19 History losartan [Cozaar] 100 mg PO QAM 07/17/19 07/17/19 History metoprolol succinate [Toprol XL] 100 mg PO BID 07/17/19 07/17/19 History ondansetron 4 mg PO Q6H PRN 07/17/19 07/17/19 History promethazine 25 mg PO Q6H PRN 07/17/19 07/17/19 History sertraline [Zoloft] 100 mg PO HS 07/17/19 07/17/19 History Patient History Medical History Acute UTI (Resolved) Anxiety disorder CAD (coronary artery disease) Mild-moderate non-obstructive Carotid stenosis < 50% stenosis B/L per US 12/16/18 Cervical disc disorder Cervical radiculopathy Chronic hypertension Congestive heart failure, acute 06/2017, admitted [facility]. Ruled 2/2 Takasubo CM. Degenerative disc disease, cervical Demyelinating disorder Diverticulitis (Resolved) Diverticulosis Gastritis (Chronic) Grief reaction (Resolved) Hematuria History of diverticulitis of colon (Resolved) History of gastritis (Resolved) History of hypotension (Inactive) History of myocardial infarction Hx-TIA (transient ischemic attack) Hyperlipidemia Hypertension (Inactive) Kidney infection (Resolved) CURRENT , RIGHT (ED [facility] LAST WEEK). JUST FINISHED ABX. X4 INFECTION OVER LAST 2 YRS Marijuana dependence Multiple sclerosis Multiple thyroid nodules NSTEMI (non-ST elevated myocardial infarction) 2017 [facility]. Cath performed showed mild to moderate non-obstructive CAD. Pulmonary emphysema Renal artery stenosis Takotsubo cardiomyopathy 2017. Admitted [facility], full cardiac workup including cath. EF at the time 40%, now resolved to 60-65% on echo 2018. Transient cerebrovascular ischemia (Resolved) Surgical History H/O cervical spine surgery ACDF C4-7 Dr. [place] History of cardiac cath 5-6 YR AGO - [place] - NO STENTS (per pt report, this cath not noted in cardiology notes) 2017, NSTEMI. NO INTERVENTION. History of hernia surgery History of hysterectomy History of ovarian cystectomy S/P cervical discectomy Family History Father Family history of stomach cancer Stroke Myocardial infarction Malignant neoplasm of esophagus Stomach cancer Uncle Family history of cancer FAMILY HISTORY OF CANCER - UNCLE - VOCAL CORDS FAMILY HISTORY OF CANCER - AUNT - ? 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 Other Information That Helps Us Care for You: No Feels Safe at Home: Yes Safety Concerns: Feels Safe At This Time Smoking Status: Former smoker Tobacco Type: cigarettes ; Age Started Using Tobacco: 17 ; Age Quit Using Tobacco: 46 ; packs per day: 2 ; Do You Dip or Chew Tobacco: No ; Second Hand Exposure: No ; Tobacco Cessation Education Requested by Patient: No Hx Alcohol Use: No Hx Substance Use: Yes substance use type: marijuana Last Used Substance: Days (ago) Dental Care, Regularly: No Physical Activity Frequency: Does not Exercise Seatbelt Use: always Review of Systems Review of Systems: 14 point review of systems completed and negative except as in HPI. Physical Exam Physical Exam: General Exam: GEN: NAD, sitting in chair. HEENT: No conjunctival injection, no rhinorrhea. CV: RRR, no peripheral edema PULM: Nonlabored respirations on room air. Neuro Exam: MS: Awake and Alert. Oriented to person, place, and date. Speech fluent and appropriate without dysarthria or paraphasic errors. Language intact including naming, comprehension, repetition. Cognition and memory grossly intact. Attention intact. No neglect. CN: Visual pradhan full. No extinction to double simultaneous stimuli. Unable to visualize fundi on fundoscopic exam. PERRLA OU. EOMI without nystagmus. Facial sensation intact to LT. Facial muscles full and symmetric. Hearing intact to conversation. Uvula midline with symmetric palatal elevation. Shoulder shrug normal. Tongue midline. MOTOR: Normal bulk and tone. No pronator drift. BUE strength 5/5 at deltoids, biceps, triceps, wrist flexors and extensors, and hand grasp bilaterally. BLE strength 5/5 at iliopsoas, hamstrings, quadriceps, tibialis anterior, and gastrocnemius bilaterally. REFLEXES: 1+ at biceps, triceps, brachioradialis, 1+ patella and absent Achilles bilaterally. Toes mute bilaterally. SENSORY: Intact to LT without extinction to double simultaneous stimuli. Vibration and temperature intact throughout. COORDINATION: No dysmetria or ataxia on [id number] bilaterally. Normal July bilaterally. GAIT: Normal gait and arm swing. Normal Romberg. Results & Data Vital Signs (Past 12 Hours) Vital Signs Temp Pulse Resp BP Pulse Ox 07/18/19 07:59 37.2 C 68 18 133/86 94 07/18/19 04:00 36.8 C 57 L 19 116/70 95 07/18/19 00:01 36.6 C 59 L 21 104/68 95 PG Care Time/CCT Total # of Minutes Spent Total Time Spent with Patient: Total time spent is greater than 50% in commercial loan coordinator rdination of care (as documented) at patient's floor/unit and/or counseling patient:
[2019-07-18] MEDS ORDERED: POTASSIUM PHOSPHATE 15 MMOL in SODIUM CHLORIDE 0.9% 250 ML IV ONE (10:15)
--- NOTE | 2019-07-18 13:27 | Hospitalist Progress Note ---
Date of Service July 18, 2019 Assessment & Plan (1) New onset seizure: Cyndie Velasquez is a 54 y/o female with past medical hx of CAD, chronic nausea/vomiting, marijuana dependence, HTN, HLD, cervical disc disease who presented to [facility] ED via EMS for upper extremity tremors, expressive aphasia, elevated home BP with systolic in 200s. She had new onset tonic/clonic seizures with ED workup suggesting Posterior Reversible Encephalopathy Syndrome. Currently at neuro baseline on medical floor. She recently started using Prednisone, which can elevate blood pressures. However, she reports Polyuria and Polydipsia with nausea and vomiting, not controlled as ran out of Zofran. I believe that this lead to a hypovolemic state. She wears a Clonidine TD patch for her HTN. This hypovolemic state would then lead to reduced cutaneous absorption of Clonidine from vasoconstriction. This would then set her up for Hypertensive rebound from not being able to absorb her Clonidine, leading to a Hypertensive Emergency with acute end organ encephalopathy causing her seizure. She did receive 1L NSS Bolus in ED that most likely helped her HTN allowing her to absorb Clonidine Patch dose. - Will place patient on seizure precautions - Neurology consulted, will continue with Kejamesra. - She is back to neuro baseline, okay to eat, ordered diabetic type 2 diet - Okay to continue her home meds - Plan to keep well hydrated and continue her Clonidine patch to allow adequate absorption to prevent rebound HTN - Hydralazine 10mg IV q6h for BP >180/>110 - Monitor I&O for fluid status - hemodynamic monitoring, stable and will downgrade off of cardiac monitoring with transfer to floor FENGI: Carb consistent/Type 2 Diet; Pepcid 20mg PO for GI since recent Prednisone use DVTPPx: SCDs, not chemical bc avoid concern for intracranial bleed Code: Full Code (2) Hypertensive emergency: With BP readings in ED of 200s-220s/110s and signs of acute end organ damage causing seizure and encephalopathy with expressive aphasia Now currently with BP o 11/0-130s/70-80s Continue with Clonidine patch and home Toprol XL 100mg PO BID Hydralazine as noted above PRN Hold home Lisinopril in setting of HTN Emergency and to follow for signs of renal end organ damage She is looking well this am, will watch her for another day and make sure she doesn't develop any neuro symptoms if having brain swelling from PRES. (3) PRES (posterior reversible encephalopathy syndrome): From CT Head showing: Nonspecific right parietal lobe hypodensity which was not evident on prior exams. This could represent progression of white matter process shown on prior exams. However, an infarct or other etiologies such as PRES could appear similar. An MRI of the brain with and without contrast is recommended. Then MRI Showing Interval development of cortical/subcortical T2 hyperintensity within the bilateral occipital and parietal lobes since MRI of December 16, 2018. The largest focus within the right parietal lobe corresponds to the finding on head CT from earlier today. No associated enhancement or restricted diffusion. The imaging findings suggest posterior reversible encephalopathy syndrome (PRES). Likely secondary to HTN Emergency. (4) Elevated glucose: Recent oral Prednisone use leading to elevated glucose causing osmotic diuresis No prior hx of DM Ordered A1C = 6.1, pre-diabetes possibly BSG ACHS (5) Nausea and vomiting: No active vomiting C/w home Zofran 4mg PO Q6H PRN Chronic, discussed possible Marijuana Cyclical Vomiting Syndrome with patient, no wishes to discontinue to see if chronic issues resolve Likely exacerbated by Predisone and elevated glucose (6) History of myocardial infarction: Per hx, continue with Clopidogrel 75mg PO qam; Lipitor 40mg PO HS (7) Takotsubo cardiomyopathy: Reported history, followed with Cardiology and resolved (8) Carotid stenosis: Per hx, continue with Clopidogrel 75mg PO qam; Lipitor 40mg PO HS (9) CAD (coronary artery disease): Per hx, continue with Clopidogrel 75mg PO qam; Lipitor 40mg PO HS (10) Pulmonary emphysema: History of 30 pack years Quit smoking 8 years ago reported from prior hx (11) Hyperlipidemia: Per hx, continue with Lipitor 40mg PO HS (12) Marijuana dependence: Last used yesterday Not willing to quit Discussed Cyclical Vomiting Syndrome with patient as possible contributor, but since quit for 6 months previously without improvement of symptoms, most likely not cause. (13) Anxiety disorder: Continue with home Sertraline 100mg PO Supervising Physician Co-Signing Physician Notes I personally examined the patient and verified all real points of history and exam, discussed case, and agree with decision making with Dr Maher. No new complaints. Generally feeling better overall. No significant events overnight. In discussion of her plans moving forward, she is okay with ongoing in-hospital observation given her events of yesterday, although she does feel good. In regards to her intractable nausea and vomiting, she does note that about a year ago she stopped marijuana entirely for about 6 months with absolutely no change in her pattern of nausea and vomiting. Vitals noted, general she is awake and alert pleasant no distress. HEENT normocephalic atraumatic mucous membranes are moist, she is edentulous. Breathing unlabored no accessory muscle use good effort, skin shows no rashes no pallor or icterus. Neuro shows no focal deficits. PRESseries of events seems to have been steroids for her cervical radiculopathy escalating sugar and blood pressure, leading to hypertension and dehydration, it is possible that in that state her clonidine patch was no longer being absorbed quite as well and she had rebound hypertension, is also quite possible that she simply had a hypertensive reaction to the prednisone superimposed on her baseline hypertension, but her marketed response to 0.1 mg of clonidine seems to corroborate a degree of clonidine rebound hypertension as a central part of her crisis. She is improved nicely. Continue to follow on just her home meds, continue supportive care and serial exams. If she continues to look good into tomorrow, probably home. Seizuresrelates to the PRES, but given risk of recurrence, will need to utilize anticonvulsants for the short but indefinite future. Recurrent nausea and vomitingprior work-up I was able to find showed a CT abdomen pelvis from a few months ago that was without significant findings as well as a fairly recent right upper quadrant ultrasound without significant findings. In discussion with the patient she describes what sounds to have been a gastric emptying study about 2 years ago that was normal as well. She relates being off of marijuana for a solid 6 months with no change in her symptoms, making cannabis hyperemesis less likely (as well as the fact that she does not seem to show the stereotyped behavior requiring hot showers), we discussed that the next steps with this would probably be referral to gastroenterology and considerations for an EGD. Otherwise as above. stable for med/surg Subjective She had no acute events overnight. She reports feeling back to her neuro baseline. No headaches, no seizures. She reports that she had previously quit marijuana in the past to see if helped nausea/vomiting which it didn't. No chest pains or shortness of breath. Physical Exam Constitutional: WD/WN, vitals as above cooperative and comfortable Eyes: + anicteric sclerae, PERRL and EOM intact bilaterally ENMT: external ear and nose normal, oropharynx normal Neck: trachea midline Respiratory: normal respiratory effort, lungs clear to auscultation Cardiovascular: Rate/Rhythm: regular rate and regular rhythm Gastrointestinal (Abdomen): Percussion/Palpation: abdomen soft; abdomen nontender, no guarding and abdomen not rigid Musculoskeletal: Head/Neck/Chest: normocephalic and head atraumatic Extremities: extremities normal to inspection and strength 5/5 throughout Skin: no rashes, warm and dry Neurologic: moves all extremities and awake; no focal motor deficits and not confused Speech / Cognition: normal speech and no expressive aphasia Cranial Nerves: EOM intact bilaterally, tongue midline and able to rotate head bilaterally Psychiatric: A+Ox3, euthymic affect Results & Data Vital Signs (Past 12 Hours) Vital Signs Temp Pulse Pulse Resp BP Pulse Ox 07/18/19 11:35 37.4 C 62 20 144/83 H 97 07/18/19 07:59 37.2 C 68 18 133/86 94 07/18/19 07:30 64 07/18/19 04:00 36.8 C 57 L 19 116/70 95 Resident Activity Tracking Resident Involvement: Resident Care Provided Care Provided: Adult Hospital Medicine
--- NOTE | 2019-07-18 16:44 | Billing Data ---
Date of Service July 18, 2019 Coding Level of Care Code 73562 Subseq Hosp Care Lvl 3
[2019-07-18] MEDS: levETIRAcetam 250 MG TAB PO SCH (20:48)
[2019-07-18] MEDS: ATORVASTATIN 40 MG TAB PO SCH (20:48)
[2019-07-18] MEDS: SERTRALINE HCL 100 MG TABLET PO SCH (20:49)
[2019-07-18 22:39] VITALS: TEMP 98.4
[2019-07-19] MEDS: CHECK CLONIDINE PATCH PLACEMENT SCH ×2 (00:30→08:39)
[2019-07-19 06:21] LABS: Hematocrit (blood only) 39.5 % (37-47); Hemoglobin 13.1 g/dL (12.0-16.0); Mean Corpuscular Hemoglobin 30.6 pg (25-34); Mean Corpuscular Hgb Conc 33.2 g/dL (32-36); Mean Corpuscular Volume 92.3 fL (80-100); Platelet Count 266 K/uL (130-400); RDW Coefficient of Variation 13.7 % (11.5-14.5); RDW Standard Deviation 45.6 fL (36.4-46.3); Red Blood Count 4.28 M/uL (4.2-5.4); White Blood Count 6.74 K/uL (4.8-10.8)
[2019-07-19 07:06] LABS: Albumin Globulin Ratio 0.9 (0.9-2); Albumin Level 3.2 gm/dl (3.4-5.0); BUN Creatinine Ratio 24.5 (10-20); Bilirubin,Total 0.5 mg/dl (0.2-1); Calcium 8.7 mg/dl (8.5-10.1); Creatinine Clr Calc Pharmacy 83.6 ml/min; Est GFR (African American) 105.5; Globulin 3.7 gm/dl (2.5-4.0); Phosphorus 3.3 mg/dl (2.5-4.9); Total Protein 6.9 gm/dl (6.4-8.2)
[2019-07-19 07:53] VITALS: PULSE 83; O2SAT 93
[2019-07-19] MEDS: METOPROLOL SUCC 50MG EXT REL TAB PO SCH (08:36)
[2019-07-19] MEDS: CLOPIDOGREL BISULFATE 75 MG TAB PO SCH (08:36)
[2019-07-19] MEDS: FAMOTIDINE 20 MG TAB PO SCH (08:37)
[2019-07-19] MEDS: MULTIVITAMIN TAB PO SCH (08:37)
[2019-07-19] MEDS: levETIRAcetam 250 MG TAB PO SCH (08:38)
[2019-07-19] MEDS ORDERED: ENOXAPARIN INJ 40 MG/0.4 ML SYR SQ SCH (09:00)
[2019-07-19 11:52] VITALS: BP 155/99
--- NOTE | 2019-07-19 13:27 | Discharge Summary ---
Date of Service July 19, 2019 Admission HPI Per Admitting Provider Cyndie Velasquez is a 54 y/o female with past medical hx of CAD, nausea/vomiting, marijuana dependence, HTN, HLD, who presented to [facility] ED via EMS for upper extremity tremors and expressive aphasia. She notes that this morning she had onset of posterior headache; both her arms were moving involuntarily, would become rigid, and also stated she knew what she wanted to say but had a hard time getting words out. She states she felt weird, unspecific symptoms no visual/auditory hallucinations, during EMS transport than had a seizure. This was reported by patient, and I haven't been able to review the EMS report. When she arrived to the ED, she was found to have significantly elevated BP (200-220s/100-125), she was treated with an oral dose of Clonidine when she had about a one minute episode of a tonic/clonic seizure. She was treated with Ativan and had no injury, no tongue injury, she was reported to return to neuro baseline quickly. They were ready to start a Cardizem drip for HTN Emergency but her Blood pressures returned to 90s/60s. She had a CT Head CT Scan showed a Nonspecific right parietal lobe hypodensity which was not evident on prior exams. This could represent progression of white matter process shown on prior exams. However, an infarct or other etiologies such as PRES could appear similar. An MRI of the brain with and without contrast is recommended. A MRI was ordered Interval development of cortical/subcortical T2 hyperintensity within the bilateral occipital and parietal lobes since MRI of December 16, 2018. The largest focus within the right parietal lobe corresponds to the finding on head CT from earlier today. No associated enhancement or restricted diffusion. The imaging findings suggest posterior reversible encephalopathy syndrome (PRES). 2. No evidence for acute infarct. She also received Keppra 1400mg IV in ED. She reports no prior history of seizures or recent head trauma. Cyndie noted that for the past 3 days she has generally not felt well. She notes that she started Prednisone on for right hand tingling by her Ortho physician. She noted that since starting that medication, she had polydipsia, polyuria. She also reports episodes of Nausea and Vomiting which she has a history of, undiagnosed etiology treated at home with Zofran, but she had run out of her Zofran as well. She notes taking her BP at home at it was elevated 150s systolic but then today at home had systolic readings in 200s. Cyndie denies any prior history of Diabetes Mellitus. Cyndie notes being compliant with all other medications, and also to being on a Clonidine patch for HTN. Cyndie gives history of workup for Multiple Sclerosis which was seen on imaging but then was felt not to be MS on repeat imaging and that she had a Lumbar Puncture that was negative for findings of MS. She noted she had upper extremity numbness and weakness but this was found to be cervical degenerative disc disease from C3-C7 that was treated with surgery. Cyndie reports daily marijuana use for the past 10 years that she notes helps with weight game when she had unknown weight loss to a weight less than 100 pounds. She also notes that it helps with her anxiety as well. She gets this from a friend and states is in the process to get Medical Marijuana. She denies any other illicit drug use or alcohol use. Admission Exam (Per Admitting) Constitutional Constitutional: WD/WN, vitals as above cooperative and comfortable sleeping in exam bed, easily arousable Eyes: + anicteric sclerae, PERRL and EOM intact bilaterally ENMT: external ear and nose normal, oropharynx normal Mouth: no mouth trauma Throat: no posterior oropharynx abnormality and no lateral displacement of uvula No tongue injury Neck: trachea midline old anterior inferior surgical scar consistent with h/o prior discectomy Respiratory: normal respiratory effort, lungs clear to auscultation Cardiovascular: Rate/Rhythm: regular rate and regular rhythm distant heart sounds Gastrointestinal (Abdomen): Percussion/Palpation: abdomen soft; abdomen nontender, no guarding and abdomen not rigid Musculoskeletal: Head/Neck/Chest: normocephalic and head atraumatic Extremities: extremities normal to inspection and strength 5/5 throughout Skin: no rashes, warm and dry Neurologic: moves all extremities and awake; no focal motor deficits, no meningeal signs, not confused and not obtunded Speech / Cognition: normal speech and no expressive aphasia Cranial Nerves: EOM intact bilaterally, tongue midline and able to rotate head bilaterally No sensory deficits to extremities Psychiatric: A+Ox3, euthymic affect Discharge Data Consultations 07/17/19 09:59 ED Decision to Admit Stat 07/17/19 12:15 Consult Neurology Routine 12/15/19 17:55 Consult [facility] grid inspector Routine Hospital Course (1) PRES (posterior reversible encephalopathy syndrome): Cyndie is a 54-year-old female with a past medical history of chronic nausea/vomiting, marijuana dependence, hypertension, hyperlipidemia, cervical disc disease, coronary artery disease, and renal artery stenosis who presented to [facility] ED with upper extremity tremors, expressive aphasia, and an elevated home blood pressure and who was admitted for posterior reversible encephalopathy syndrome. Posterior reversible encephalopathy syndrome 2/2 hypertensive emergency Cyndie has a history of resistant hypertension managed as below. Prior to admission she had increased nausea and vomiting which she was unable to take Zofran for it due to running out. Became acutely volume depleted, and it was felt that in the setting of reduced clonidine absorption she had a rebound hypertensive episode leading to PRES. on arrival to the emergency department she had elevated blood pressure 200s over 100s, and was treated with an oral dose of clonidine. While in the emergency department she had a tonic/clonic seizure treated with Ativan. CT head showed nonspecific right parietal lobe hypodensity, follow-up MRI showed bilateral occipital and parietal hyperdensities consistent with reversible encephalopathy syndrome. No acute infarct or intracranial hemorrhage was appreciated. She was seen by neurology and was placed on Keppra, it was recommended she continue Keppra 750 mg twice daily with further follow-up as outpatient to neurology.She is not having any focal neurologic deficits, or aphasia at time of discharge.She was instructed not to drive for 6 months at minimum, and will have follow-up with neurology who will advise if and when it is safe to resume driving. Hypertension with hypertensive emergency Cynide has a history of resistant hypertension treated with clonidine, losartan, and metoprolol. On admission she was volume depleted but hypertensive to 200s/100s. Her medical history notes renal artery stenosis, however Dopplers were not available for review. Her blood pressure improved with supportive care and her CERTIFIED MEDICINE AIDE antihypertensive regimen, however it may be of benefit for her to be reevaluated for renal artery stenosis and potential stenting intervention. She was instructed to follow-up with her outpatient provider for further evaluation.She was normotensive at time of visit on day of discharge. She had no symptoms of hypertension, including headache or visual changes at time of discharge. Cyclical vomiting, chronic nausea Patient reports marijuana dependence, and unwillingness to reduce/stop marijuana use. Marijuana hyperemesis has been discussed with her previously, and she reports that she quit for 6 months but did not have improvement of her symptoms and feels it is not the cause of her nausea. History of myocardial infarction She is continued on Lipitor and Plavix. History of takasubo cardiomyopathy Historical, no signs of cardiac failure were observed during admission. History of anxiety CERTIFIED MEDICINE AIDE sertraline 100 mg was continued during admission, no exacerbation of anxiety symptoms were appreciated during admission. Coronary artery disease Plavix and Lipitor continued as above. Pulmonary emphysema [id number] history tobacco use, no exacerbation during admission. (2) Hypertensive emergency: (3) Cannabinoid hyperemesis syndrome: (4) New onset seizure: (5) History of myocardial infarction: (6) CAD (coronary artery disease): (7) Pulmonary emphysema: (8) Multiple thyroid nodules: (9) Hyperlipidemia: (10) Diverticulosis: (11) Cervical radiculopathy: (12) Degenerative disc disease, cervical: (13) Anxiety disorder: (14) Hx-TIA (transient ischemic attack): (15) Renal artery stenosis: (16) Marijuana dependence: (17) Chronic hypertension: Supervising Physician Co-Signing Physician Notes Resident Physician Supervision Note: I independently interviewed and examined the patient and verified the real history and physical, reviewed labs and image studies, discussed the case with the resident Dr. Hagen and agree with the findings and care plan. denied any concerns, bp improved. no nausea. ate well o/e - AAOx3 heart - regular lung - CTA, b/l Normal mood and affect discussed compliance with med and further outpatient work up for secondary causes of uncontrolled HTN . Resident Activity Tracking Resident Involvement: Resident Care Provided Care Provided: Adult [facility]
[2019-07-20] MEDS ORDERED: cloNIDine HCL 0.1 MG/24 HR TRANSDERM SYS TD SCH (09:00)
[2019-07-21 12:00] LABS: Marijuana Quant, GCMS Urine 714 ng/mL (<5)
== END 2019-07-19 13:04 | disposition home or self-care (01) | DRG 71 ==
LOC: ED 07:17 → 2S 07:17 → SUATTDRO 18:00 → 4W 07-18 13:15

== ENCOUNTER 2020-02-14 09:11 | Observation (INO) ==
[2020-02-14] MEDS ORDERED: ONDANSETRON INJ 2 MG/ML 2 ML VIAL IV STA (09:50)
[2020-02-14] MEDS ORDERED: SODIUM CHLORIDE 0.9% 1000ML 2,000 ML IV ONE (09:50)
[2020-02-14] MEDS ORDERED: PROMETHAZINE 25 MG/51 ML BAG IV STA (09:53)
--- NOTE | 2020-02-14 10:06 | Emergency Department Note ---
History of Present Illness General Chief complaint: Illness Time Seen by Provider: 02/14/20 09:32 History of Present Illness Maximum Pain Intensity: 0 54-year-old female who presents to emergency department with complaint of generalized abdominal pain, nausea and vomiting. Patient reports a history of chronic abdominal pain issues. The patient has seen gastroenterology in the past with endoscopy studies suggesting gastritis and reflux. The patient otherwise follows with her family doctor, Dr. Killian for further management. The patient denies any recent alcohol, NSAIDs or caffeine use. She denies any hematemesis, coffee-ground emesis or dark/bloody stools. Patient denies any diarrhea, fevers or chills. She does report sweatiness. The patient did have a recent negative COVID-19 test. She denies any other known sick contacts. The patient rates her overall discomfort a 7 out of 10, complaining mostly of nausea. The patient usually takes Zofran at home for the nausea. The patient reports that she vomited her morning medications. She reports a history of hypertension. Home Medications Home Medications Medication Instructions Recorded Confirmed Type multivitamin 1 tab PO QAM 12/16/18 02/14/20 History losartan [Cozaar] 100 mg PO QAM 07/17/19 02/14/20 History metoprolol succinate [Toprol XL] 100 mg PO BID 07/17/19 02/14/20 History promethazine 25 mg PO Q6H PRN 07/17/19 02/14/20 History sertraline [Zoloft] 100 mg PO HS 07/17/19 02/14/20 History clonidine 0.1 mg/24 hr weekly 1 patch TOPICAL WK #4 ea 08/05/19 02/14/20 Rx transdermal patch levetiracetam 750 mg tablet 750 mg PO BID #60 tab 08/27/19 02/14/20 Rx ondansetron 4 mg disintegrating 4 mg PO Q6H PRN #30 tab 10/18/19 02/14/20 Rx tablet atorvastatin 40 mg tablet 40 mg PO HS #90 tab 01/04/20 02/14/20 Rx clopidogrel 75 mg tablet 75 mg PO QAM #90 tab 01/04/20 02/14/20 Rx Allergies Allergy/AdvReac Type Severity Reaction Status Date / Time napoles Allergy Intermediate Hives Verified 09/07/19 10:47 doxycycline Allergy Intermediate hives and Verified 09/07/19 10:47 vomitting Iodinated Contrast Media Allergy Intermediate GIANT Verified 09/07/19 10:47 HIVES , VOMITTING, BODY FEELS HOT loperamide Allergy Intermediate Hives and Verified 09/07/19 10:47 vomiting meperidine Allergy Intermediate HIVES, Verified 09/07/19 10:47 VOMITING prochlorperazine Allergy Intermediate N/V, Verified 09/07/19 10:47 ITCHINESS strawberry Allergy Intermediate HIVES Verified 09/07/19 10:47 tomato Allergy Intermediate HIVES Verified 09/07/19 10:47 iodine Allergy . Verified 09/07/19 10:47 latex AdvReac Mild RASH Verified 09/07/19 10:47 Past Med/Surg History Medical History Acute UTI (Resolved) Anxiety disorder CAD (coronary artery disease) Mild-moderate non-obstructive Carotid stenosis < 50% stenosis B/L per US 12/16/18 Cervical disc disorder Cervical radiculopathy Chronic hypertension Congestive heart failure, acute 06/2017, admitted [facility]. Ruled 2/2 Takasubo CM. Degenerative disc disease, cervical Diverticulitis (Resolved) Diverticulosis Gastritis (Chronic) Grief reaction (Resolved) Hematuria History of diverticulitis of colon (Resolved) History of gastritis (Resolved) History of hypotension (Inactive) History of myocardial infarction HTN (hypertension) Hx-TIA (transient ischemic attack) Hyperlipidemia Hypertension (Inactive) Kidney infection (Resolved) CURRENT , RIGHT (ED [facility] LAST WEEK). JUST FINISHED ABX. X4 INFECTION OVER LAST 2 YRS Marijuana dependence Multiple thyroid nodules NSTEMI (non-ST elevated myocardial infarction) 2017 [facility]. Cath performed showed mild to moderate non-obstructive CAD. Pulmonary emphysema Renal artery stenosis Takotsubo cardiomyopathy 2017. Admitted [facility], full cardiac workup including cath. EF at the time 40%, now resolved to 60-65% on echo 2019. Transient cerebrovascular ischemia (Resolved) Surgical History H/O cervical spine surgery ACDF C4-7 Dr. [place] History of cardiac cath 5-6 YR AGO - [place] - NO STENTS (per pt report, this cath not noted in cardiology notes) 2017, NSTEMI. NO INTERVENTION. History of hernia surgery History of hysterectomy History of ovarian cystectomy S/P cervical discectomy Family History Father Family history of stomach cancer Stroke Myocardial infarction Malignant neoplasm of esophagus Stomach cancer Uncle Family history of cancer FAMILY HISTORY OF CANCER - UNCLE - VOCAL CORDS FAMILY HISTORY OF CANCER - AUNT - ? KIND Throat cancer Grandmother (Maternal) Family history of breast cancer Family history of bone cancer Cancer bone Breast cancer Bone cancer Grandmother Bone cancer Other No pertinent family history Denies family history of Colon cancer Ovarian cancer Prostate cancer Crohn's disease IBD (inflammatory bowel disease) Social History Preferred Language: Tajik Communication Ability: Effective Visual Impairment: Limited Hearing Ability: Normal Nuclear Medicine Officer Required: No Beliefs That Will Affect Care: None marital status: Life Partner Current Living Situation: Significant Other current occupational status: employed 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 Other Information That Helps Us Care for You: No Feels Safe at Home: Yes Safety Concerns: Feels Safe At This Time Smoking Status: Former smoker Tobacco Type: cigarettes ; packs per day: 2 ; Second Hand Exposure: No ; Hx Alcohol Use: No Hx Substance Use: Yes substance use type: marijuana Last Used Substance: Days (ago) Last Used Substance Other:: 02/09/20 Childhood Exposure to Second-Hand Smoke: Yes caffeine: Yes (1 cup of coffee) during the past year weight has: other Dental Care, Regularly: No Physical Activity Frequency: Daily Physical Activity Frequency Comment: walking Seatbelt Use: always Sunscreen Use: Yes Review of Systems 10 system review was performed and was negative except for pertinent positives and negatives as indicated in history of present illness Physical Exam Vital Signs Vital Signs - 24 hr 02/14/20 09:14 02/14/20 09:19 02/14/20 09:30 Temperature 36.8 C Temperature Source Oral Pulse Rate 63 62 59 L Pulse Rate [Apical] Pulse Rate from SpO2 Sensor Respiratory Rate 11 L 18 14 Blood Pressure 232/136 H 232/136 H Blood Pressure [Left Arm] Blood Pressure Mean 184 168 Blood Pressure Mean [Left Arm] Pulse Oximetry 98 Oxygen Delivery Method Room Air Sepsis Recent Fever Within 48 Hours No Sepsis New/Unexplained Change in Mental Status No Sepsis Action Taken by Nursing No Action Required 02/14/20 10:00 02/14/20 10:03 02/14/20 10:04 Temperature Temperature Source Pulse Rate 79 58 L 65 Pulse Rate [Apical] Pulse Rate from SpO2 Sensor Respiratory Rate 18 13 19 Blood Pressure 225/128 H Blood Pressure [Left Arm] Blood Pressure Mean 156 Blood Pressure Mean [Left Arm] Pulse Oximetry Oxygen Delivery Method Sepsis Recent Fever Within 48 Hours Sepsis New/Unexplained Change in Mental Status Sepsis Action Taken by Nursing 02/14/20 10:30 02/14/20 10:31 02/14/20 10:41 Temperature Temperature Source Pulse Rate 60 62 Pulse Rate [Apical] 71 Pulse Rate from SpO2 Sensor 59 L 64 Respiratory Rate 21 22 18 Blood Pressure 249/132 H Blood Pressure [Left Arm] 249/132 H Blood Pressure Mean 166 Blood Pressure Mean [Left Arm] 171 Pulse Oximetry 94 96 97 Oxygen Delivery Method Room Air Sepsis Recent Fever Within 48 Hours Sepsis New/Unexplained Change in Mental Status Sepsis Action Taken by Nursing 02/14/20 11:00 02/14/20 11:01 02/14/20 11:30 Temperature Temperature Source Pulse Rate 70 81 70 Pulse Rate [Apical] Pulse Rate from SpO2 Sensor 71 76 68 Respiratory Rate 22 22 21 Blood Pressure 246/141 H 227/133 H Blood Pressure [Left Arm] Blood Pressure Mean 186 175 Blood Pressure Mean [Left Arm] Pulse Oximetry 96 96 94 Oxygen Delivery Method Sepsis Recent Fever Within 48 Hours Sepsis New/Unexplained Change in Mental Status Sepsis Action Taken by Nursing 02/14/20 11:31 02/14/20 12:00 02/14/20 12:01 Temperature Temperature Source Pulse Rate 71 70 71 Pulse Rate [Apical] 86 Pulse Rate from SpO2 Sensor 73 69 71 Respiratory Rate 22 20 21 Blood Pressure 222/136 H Blood Pressure [Left Arm] 223/125 H Blood Pressure Mean 172 Blood Pressure Mean [Left Arm] 157 Pulse Oximetry 97 95 96 Oxygen Delivery Method Room Air Sepsis Recent Fever Within 48 Hours Sepsis New/Unexplained Change in Mental Status Sepsis Action Taken by Nursing 02/14/20 12:14 02/14/20 12:30 02/14/20 12:31 Temperature Temperature Source Pulse Rate 77 76 81 Pulse Rate [Apical] Pulse Rate from SpO2 Sensor 77 76 81 Respiratory Rate 16 21 22 Blood Pressure 222/136 H 223/125 H Blood Pressure [Left Arm] Blood Pressure Mean 172 141 Blood Pressure Mean [Left Arm] Pulse Oximetry 97 96 Oxygen Delivery Method Sepsis Recent Fever Within 48 Hours Sepsis New/Unexplained Change in Mental Status Sepsis Action Taken by Nursing 02/14/20 13:00 02/14/20 13:30 02/14/20 13:31 Temperature Temperature Source Pulse Rate 78 80 83 Pulse Rate [Apical] Pulse Rate from SpO2 Sensor Respiratory Rate 19 21 26 H Blood Pressure 210/129 H Blood Pressure [Left Arm] Blood Pressure Mean 149 Blood Pressure Mean [Left Arm] Pulse Oximetry Oxygen Delivery Method Sepsis Recent Fever Within 48 Hours Sepsis New/Unexplained Change in Mental Status Sepsis Action Taken by Nursing 02/14/20 13:45 02/14/20 14:00 02/14/20 14:01 Temperature Temperature Source Pulse Rate 82 79 81 Pulse Rate [Apical] 80 Pulse Rate from SpO2 Sensor Respiratory Rate 21 20 24 Blood Pressure 200/138 H 215/133 H Blood Pressure [Left Arm] 215/133 H Blood Pressure Mean 175 173 Blood Pressure Mean [Left Arm] 160 Pulse Oximetry 97 Oxygen Delivery Method Room Air Sepsis Recent Fever Within 48 Hours Sepsis New/Unexplained Change in Mental Status Sepsis Action Taken by Nursing 02/14/20 14:30 02/14/20 14:36 02/14/20 14:41 Temperature Temperature Source Pulse Rate 79 70 80 Pulse Rate [Apical] Pulse Rate from SpO2 Sensor Respiratory Rate 17 26 H 25 H Blood Pressure 201/123 H 189/114 H Blood Pressure [Left Arm] Blood Pressure Mean 143 154 Blood Pressure Mean [Left Arm] Pulse Oximetry Oxygen Delivery Method Sepsis Recent Fever Within 48 Hours Sepsis New/Unexplained Change in Mental Status Sepsis Action Taken by Nursing 02/14/20 15:00 02/14/20 15:01 Temperature Temperature Source Pulse Rate 83 81 Pulse Rate [Apical] Pulse Rate from SpO2 Sensor Respiratory Rate 24 27 H Blood Pressure 203/120 H Blood Pressure [Left Arm] Blood Pressure Mean 163 Blood Pressure Mean [Left Arm] Pulse Oximetry 98 Oxygen Delivery Method Room Air Room Air Sepsis Recent Fever Within 48 Hours Sepsis New/Unexplained Change in Mental Status Sepsis Action Taken by Nursing CONSTITUTIONAL: Healthy and well nourished. Patient appears in moderate discomfort, holding an emesis bag. HEENT: Normocephalic, atraumatic. Pupils equal, round and reactive. No subconjunctival hemorrhage, scleral icterus or conjunctival injection/pallor. Ears and nares are otherwise clear. Mucous membranes are dry. NECK: Full active range of motion without discomfort. LYMPHATICS: No cervical chain adenopathy. RESPIRATORY: Clear to auscultation bilaterally with no wheezing, crackles, rhonchi or stridor. CARDIOVASCULAR: Regular rate and rhythm with no murmurs, rubs or gallops. GASTROINTESTINAL: Bowel sounds present in all quadrants. Patient has minimal generalized abdominal tenderness to palpation without rigidity, guarding or rebound. MUSCULOSKELETAL: Full range of motion of all joints without discomfort. INTEGUMENTARY: No rash or other significant dermatologic conditions noted. HEMATOLOGIC: No ecchymosis or petechiae. PSYCHIATRIC: Positive affect. NEUROLOGIC: No focal neurologic deficits noted. Course Course Patient history and physical exam were performed. Nurse's notes were reviewed. Vital signs were reviewed, showing a markedly elevated blood pressure of 232/136. I also reviewed prior medical records, showing that the patient was admitted to our facility last fall with a hypertensive emergency, as well as seizures. Further review of records shows that the patient did see a diesel tractor engine mechanic, having undergone an MRI for possible renal artery stenosis. The patient is currently on 3 different antihypertensives, and with concern for possible malabsorption issues, the patient was being treated most successfully with clonidine patch. The patient reports that she has recently been sweating, but was able to apply her clonidine patch this morning. It is also noted that the patient has had prior history of QT prolongation. According to the patient's nurse, the patient was administered IV Zofran during transportation via EMS. IV access was established, and labs were drawn. The patient was hydrated with 2 L of normal saline, and was administered IV Phenergan for nausea, as well as IV labetalol. An ECG shows an RSR prime pattern in V1, suggestive of ventricular conduction delay which is new from the patient's prior ECG in 2019. Troponin was normal. Review of l additional abs shows a normal CBC. CMP shows an elevated BUN and creatinine ratio, otherwise creatinine is normal. LFTs, lipase and alkaline phosphatase are normal. The patient was unable to provide a urine sample while in the emergency department. Urine drug screen was also ordered, however could not be processed because of the lack of urine. An abdomen obstruction series with a PA chest view does not show any obstructive pattern, lung consolidations, free air or other concerning findings. Throughout the patient's emergency department evaluation, her pressures continued to remain elevated. She was administered an additional dose of IV labetalol without any decrease in blood pressure. The case was further discussed with Dr. Dumont, ED attending physician, who agrees with work-up and treatment provided, and re commended additional IV hydralazine, and further discussion of the case with the hospitalist service. The case was discussed with Dr. Funk, who evaluated the patient. Please see her dictation for further treatment and final disposition. Administered Medications Metoprolol Tartrate (Lopressor) 5 mg IV Q4 PRN PRN Reason: systolic BP >160 Stop: 03/15/20 15:59 Last Admin: 02/14/20 15:07 Dose: 5 mg Documented by: [id number] Discontinued Medications Hydralazine HCl (Hydralazine Hcl) 10 mg IV NOW STA Stop: 02/14/20 13:56 Last Admin: 02/14/20 14:14 Dose: 10 mg Documented by: [id number] Sodium Chloride (Nss 1000ml) 2,000 mls @ 999 mls/hr IV .Q2H1M ONE Stop: 02/14/20 11:50 Last Infusion: 02/14/20 12:06 Dose: 0 mls/hr Documented by: [id number] Admin: 02/14/20 10:05 Dose: 999 mls/hr Documented by: [id number] Promethazine HCl (Phenergan) 25 mg in 51 mls @ 204 mls/hr IV NOW STA Stop: 02/14/20 10:07 Last Infusion: 02/14/20 10:35 Dose: 0 mls/hr Documented by: [id number] Admin: 02/14/20 10:09 Dose: 204 mls/hr Documented by: [id number] Labetalol HCl (Normodyne) 10 mg IV NOW STA Stop: 02/14/20 10:09 Last Admin: 02/14/20 10:41 Dose: 10 mg Documented by: [id number] Cosigned by: [id number] Labetalol HCl (Normodyne) 10 mg IV NOW STA Stop: 02/14/20 12:51 Last Admin: 02/14/20 12:58 Dose: 10 mg Documented by: [id number] Cosigned by: [id number] Ondansetron HCl (Zofran) 4 mg IV NOW STA Stop: 02/14/20 09:51 Last Admin: 02/14/20 10:09 Dose: Not Given Documented by: [id number] Medical Decision Making Medical Records Attestation: I reviewed the patient's medical records. Home Medications Current Medication List: was personally reviewed by me Laboratory Data Attestation: I reviewed the patient's lab results. Result diagrams: 02/14/20 10:12 02/14/20 10:12 Lab Results 02/14/20 02/14/20 02/14/20 Range/Units 10:12 10:12 10:12 WBC 9.67 (4.8-10.8) K/uL RBC 4.63 (4.2-5.4) M/uL Hgb 14.6 (12.0-16.0) g/dL Hct 43.5 (37-47) % MCV 94.0 (80-100) fL MCH 31.5 (25-34) pg MCHC 33.6 (32-36) g/dL RDW Std Deviation 43.6 (36.4-46.3) fL RDW Coeff of Jose Luis 12.8 (11.5-14.5) % Plt Count 352 (130-400) K/uL MPV 10.3 (7.4-10.4) fL Immature Gran % (Auto) 0.2 % Neut % (Auto) 78.6 % Lymph % (Auto) 17.6 % Pine % (Auto) 2.8 % Eos % (Auto) 0.3 % Baso % (Auto) 0.5 % Neut # (Auto) 7.60 H (1.4-6.5) K/uL Lymph # (Auto) 1.70 (1.2-3.4) K/uL Pine # (Auto) 0.27 (0.11-0.59) K/uL Eos # (Auto) 0.03 (0-0.5) K/uL Baso # (Auto) 0.05 (0-0.2) K/uL Immature Gran # (Auto) 0.02 (0.00-0.02) K/uL Sodium 137 (136-145) mmol/L Potassium 3.5 (3.5-5.1) mmol/L Chloride 106 (98-107) mmol/L Carbon Dioxide 22 (21-32) mmol/L Anion Gap 9.0 (3-11) BUN 20 H (7-18) mg/dl Creatinine 0.90 (0.6-1.2) mg/dl Est Cr Clr Drug Dosing 67.7 ml/min Est GFR ( Amer) 84.6 Est GFR (Non-Af Amer) 73.0 BUN/Creatinine Ratio 21.7 H (10-20) Glucose 138 H (70-99) mg/dl Calcium 9.5 (8.5-10.1) mg/dl Total Bilirubin 0.4 (0.2-1) mg/dl AST 17 (15-37) U/L ALT 21 (12-78) U/L Alkaline Phosphatase 92 (45-117) U/L Troponin I 0.027 (0-0.045) ng/ml Total Protein 8.1 (6.4-8.2) gm/dl Albumin 4.0 (3.4-5.0) gm/dl Globulin 4.1 H (2.5-4.0) gm/dl Albumin/Globulin Ratio 1.0 (0.9-2) Lipase 95 (73-393) U/L Urine Color Urine Appearance (Clear) Urine pH (4.5-7.5) Ur Specific Melrose (1.000-1.030) Urine Protein (Negative) Urine Glucose (UA) (Negative) Urine Ketones (Negative) Urine Blood (Negative) Urine Nitrite (Negative) Urine Bilirubin (Negative) Urine Urobilinogen (Negative) Ur Leukocyte Esterase (Negative) Urine WBC (Auto) (0-5) /hpf Urine RBC (Auto) (0-4) /hpf U Hyaline Cast (Auto) (0-5) /lpf U Epithel Cells (Auto) (0-5) /lpf Urine Bacteria (Auto) (Negative) 02/14/20 Range/Units 14:40 WBC (4.8-10.8) K/uL RBC (4.2-5.4) M/uL Hgb (12.0-16.0) g/dL Hct (37-47) % MCV (80-100) fL MCH (25-34) pg MCHC (32-36) g/dL RDW Std Deviation (36.4-46.3) fL RDW Coeff of Jose Luis (11.5-14.5) % Plt Count (130-400) K/uL MPV (7.4-10.4) fL Immature Gran % (Auto) % Neut % (Auto) % Lymph % (Auto) % Pine % (Auto) % Eos % (Auto) % Baso % (Auto) % Neut # (Auto) (1.4-6.5) K/uL Lymph # (Auto) (1.2-3.4) K/uL Pine # (Auto) (0.11-0.59) K/uL Eos # (Auto) (0-0.5) K/uL Baso # (Auto) (0-0.2) K/uL Immature Gran # (Auto) (0.00-0.02) K/uL Sodium (136-145) mmol/L Potassium (3.5-5.1) mmol/L Chloride (98-107) mmol/L Carbon Dioxide (21-32) mmol/L Anion Gap (3-11) BUN (7-18) mg/dl Creatinine (0.6-1.2) mg/dl Est Cr Clr Drug Dosing ml/min Est GFR ( Amer) Est GFR (Non-Af Amer) BUN/Creatinine Ratio (10-20) Glucose (70-99) mg/dl Calcium (8.5-10.1) mg/dl Total Bilirubin (0.2-1) mg/dl AST (15-37) U/L ALT (12-78) U/L Alkaline Phosphatase (45-117) U/L Troponin I (0-0.045) ng/ml Total Protein (6.4-8.2) gm/dl Albumin (3.4-5.0) gm/dl Globulin (2.5-4.0) gm/dl Albumin/Globulin Ratio (0.9-2) Lipase (73-393) U/L Urine Color Yellow Urine Appearance Clear (Clear) Urine pH 5.0 (4.5-7.5) Ur Specific [place] 1.019 (1.000-1.030) Urine Protein 2+ H (Negative) Urine Glucose (UA) Negative (Negative) Urine Ketones Negative (Negative) Urine Blood 3+ H (Negative) Urine Nitrite Negative (Negative) Urine Bilirubin Negative (Negative) Urine Urobilinogen Negative (Negative) Ur Leukocyte Esterase Negative (Negative) Urine WBC (Auto) 1-5 (0-5) /hpf Urine RBC (Auto) 10-30 H (0-4) /hpf U Hyaline Cast (Auto) 1-5 (0-5) /lpf U Epithel Cells (Auto) >30 H (0-5) /lpf Urine Bacteria (Auto) Negative (Negative) Imaging Data Attestation: I personally reviewed and interpreted this imaging study as follows: My Impression: My interpretation of an abdomen obstruction series with a PA chest view does not show any obstructive pattern, free air, lung consolidations or other concerning findings. Radiologist report was also reviewed. Radiologist's Impression: XR abdomen 2V w PA chest CLINICAL HISTORY: Abd pain, N/V pain. Nausea. COMPARISON STUDY: 07/17/2019 FINDINGS: The soft tissues, psoas shadows, renal outlines and intestinal gas pa ttern appear normal. There is no evidence for bowel obstruction. There is no evidence for free intraperitoneal air. No abnormal abdominal calcifications are seen. A frontal view of the chest was performed and is unremarkable. IMPRESSION: Normal study. ECG Data Attestation: I personally reviewed and interpreted this ECG as follows: Indication: + diaphoresis and + vomiting Rate (beats per minute): 59 Rhythm: + sinus bradycardia ECG Intervals/blocks: + Right Bundle branch block ECG ST segments: + Normal ST segments Comparison ECG Date: from (07/17/2019) Change: the following changes noted Additional Comments: RSR prime in V1, suggestive of right ventricular conduction delay. This is new from the patient's last ECC of 07/17/2019 Blood Pressure Blood Pressure Findings: Elevated blood pressure Blood Pressure Disposition: further management by hospitalist BRITNEY Coronel Patient presents to the emergency department with primary complaint of generalized abdominal pain, nausea and vomiting. Her work-up today is not suggestive of pancreatitis, cholecystitis, hepatitis or bowel obstruction. Clinical exam is not consistent with pyelonephritis, appendicitis or diverticulitis. The patient was unable to provide a urine sample to rule out UTI, but felt to be less likely. I am most concerned about the patient's hypertensive emergency with significantly elevated blood pressures, and unfortunately has not had any response to 2 doses of labetalol. ECG also shows a new RSR prime pattern in V1, concerning for newly developing right ventricular conduction delay. Troponin is not suggestive of acute myocardial event. Impression & Plan Hypertensive emergency, Nausea and vomiting, Abdominal pain Discharge Plan Visit Data Chief Complaint: Illness ED Provider: Prabhu Dumont ED Midlevel Provider: Toni Champagne Discharge Problem: Hypertensive emergency, Nausea and vomiting, Abdominal pain Forms Stand Alone Forms: My [facility] Prescriptions Prescriptions: No Action levetiracetam 750 mg tablet 750 mg PO BID Qty: 60 RF: 2 ondansetron 4 mg tablet,disintegrating 4 mg PO Q6H PRN (Reason: Nausea And Vomiting) Qty: 30 RF: 0 atorvastatin [Lipitor] 40 mg tablet 40 mg PO HS Qty: 90 RF: 0 clopidogrel [Plavix] 75 mg tablet 75 mg PO QAM Qty: 90 RF: 0 clonidine [Gimomqbo-LXQ-3] 0.1 mg/24 hr patch weekly 1 patch topical WK Qty: 4 RF: 4 multivitamin Tablet 1 tab PO QAM RF: 0 metoprolol succinate [Toprol XL] 100 mg tablet extended release 24 hr 100 mg PO BID RF: 0 sertraline [Zoloft] 100 mg tablet 100 mg PO HS RF: 0 promethazine 25 mg tablet 25 mg PO Q6H PRN (Reason: Nausea And Vomiting) RF: 0 losartan [Cozaar] 100 mg tablet 100 mg PO QAM RF: 0
[2020-02-14] MEDS ORDERED: LABETALOL HCL IV 5 MG/ML 20ML IV STA ×2 (10:08→12:50)
[2020-02-14 10:25] LABS: Basophils # (auto) 0.05 K/uL (0-0.2); Basophils % (auto) 0.5 %; Eosinophils # (auto) 0.03 K/uL (0-0.5); Eosinophils % (auto) 0.3 %; Hematocrit (blood only) 43.5 % (37-47); Hemoglobin 14.6 g/dL (12.0-16.0); Immature Granulocytes # (auto) 0.02 K/uL (0.00-0.02); Immature Granulocytes % (auto) 0.2 %; Lymphocytes % (auto) 17.6 %; Mean Corpuscular Hemoglobin 31.5 pg (25-34); Mean Corpuscular Hgb Conc 33.6 g/dL (32-36); Mean Platelet Volume 10.3 fL (7.4-10.4); Monocytes # (auto) 0.27 K/uL (0.11-0.59); Monocytes % (auto) 2.8 %; Neutrophils % (auto) 78.6 %; Platelet Count 352 K/uL (130-400); RDW Coefficient of Variation 12.8 % (11.5-14.5); RDW Standard Deviation 43.6 fL (36.4-46.3); Red Blood Count 4.63 M/uL (4.2-5.4); White Blood Count 9.67 K/uL (4.8-10.8)
[2020-02-14 10:40] LABS: BUN Creatinine Ratio 21.7 (10-20); Calcium 9.5 mg/dl (8.5-10.1); Creatinine Clr Calc Pharmacy 67.7 ml/min; Est GFR (African American) 84.6; Potassium 3.5 mmol/L (3.5-5.1)
[2020-02-14 10:43] LABS: Bilirubin,Total 0.4 mg/dl (0.2-1); Globulin 4.1 gm/dl (2.5-4.0); Total Protein 8.1 gm/dl (6.4-8.2)
--- NOTE | 2020-02-14 13:00 | XRay Report ---
XR abdomen 2V w PA chest CLINICAL HISTORY: Abd pain, N/V pain. Nausea. COMPARISON STUDY: 07/17/2019 FINDINGS: The soft tissues, psoas shadows, renal outlines and intestinal gas pattern appear normal. T here is no evidence for bowel obstruction. There is no evidence for free intraperitoneal air. No abno rmal abdominal calcifications are seen. A frontal view of the chest was performed and is unremarkable . IMPRESSION: Normal study. ACT 112: Negative or not required by law. The above report was generated using voice recognition software. It may contain grammatical, syntax or spelling errors. Electronically signed by: Walt Fernandez M.D. 02/14/2020 12:59 PM
[2020-02-14] MEDS ORDERED: HydrALAZINE HCL 20 MG/ML VIAL IV STA (13:55)
--- NOTE | 2020-02-14 14:22 | Electrocardiogram Report ---
Test Reason : Blood Pressure : / mmHG Vent. Rate : 059 BPM Atrial Rate : 059 BPM P-R Int : 188 ms QRS Dur : 090 ms QT Int : 446 ms P-R-T Axes : 054 -28 039 degrees QTc Int : 441 ms Sinus bradycardia with sinus arrhythmia Possible Left atrial enlargement Incomplete right bundle branch block Borderline ECG When compared with ECG of 17-JUL-2019 08:44, Incomplete right bundle branch block is now present Confirmed by Pako Holland ([id number]) on 02/14/2020 2:22:42 PM Referred By: REFERRED SELF Confirmed By:Tereso Holland
[2020-02-14] MEDS ORDERED: METOPROLOL TARTRATE 1 MG/ML VIAL IV PRN (14:36)
--- NOTE | 2020-02-14 14:48 | History & Physical Report ---
Date of Service February 14, 2020 Assessment & Plan (1) Hypertensive emergency: Pt was given labetalol x2 in the ED without effect She was given hydralazine just prior to my exam with slight improvement in systolic BP from 223 to 213 Monitor for now Metoprolol 5mg IV PRN Pt states she checks her BP most days and it is 120s/70s. Last check was Friday and both times were in this range. She does note that prior to onset of emesis, she was having difficulty keep her clonidine patch on due to increased sweating. She did replace that with a new patch around 1:30p. She has kept the patch on since that time, but unable to tolerate her PO meds. (2) Nausea and vomiting: Last emesis was in the ED, just prior to being taken to XR She has tolerated a few sips of water since XR CBC, PRP, LFTs, lipase WNL C/AXR neg for acute CTAP pending, IV contrast only due to emesis Pt is s/p hysterectomy IVF with K given low normal K in the ED in the setting of emesis NPO with sips for now COVID neg Pt has hx of marijuana hyperemsis syndrome. She states that she usually smokes about 2x/week. Her last use was Friday. She states that the non-use interval from Friday to Friday is not an unusual interval for her. Despite this, exacerbation of this syndrome is high on my differential. (3) Headache: Likely related to persistant elevated BP Did not occur until in the ED No s/sx of CVA N/V have improved since ED interventions Holding on CT head for now, t/c if return of n/v or worsening headach (4) HTN (hypertension): Pt has hx of HTN that was resistant to tx There is some thought that she has a malabsorption issue and therefore does not absorb medications well BP improved with addition of clonidine patch (5) PRES (posterior reversible encephalopathy syndrome): Pt states she had a seizure in July. She was started on keppra, but this has since been stopped as she was not found to have an underlying seizure disorder. No return of seizures (6) Cannabinoid hyperemesis syndrome: As noted above (7) NSTEMI (non-ST elevated myocardial infarction): 2013 Plavix only (8) Carotid stenosis: Noted (9) Hyperlipidemia: continue home meds (10) Anxiety disorder: continue home meds (11) DVT prophylaxis: SCDs to avoid bleeding in the setting of intractable n/v History of Present Illness Primary Care Provider: Teena Killian, DO 54 y/o F c/o n/v. Pt states she generally has an episode of n/v per week, but nothing like this. She states that she felt fine otherwise through Friday morning. She took her AM medications and ate without issue. Around 120 she had sudden onset of intractable n/v. She has not been able to keep anything down, including water or her medications, since this time. No real abd pain other than occasional cramping with prolonged emesis. No diarrhea. She was having some SOB with prolonged emesis as well, but none outside of this. Pt denies fever, chest pain, LE pain or swelling. No one else at home is sick. No unusual foods. Last emesis was in the ED, just prior to being taken to XR. She has tolerated a few sips of water since XR. She states she feels exhausted at this point, but her nausea is better. She does have a headache at present that is new. She states it is mild. Pt was given labetalol x2 in the ED without effect. She was given hydralazine just prior to my exam with slight improvement in systolic BP from 223 to 213. Pt states she checks her BP most days and it is 120s/70s. Last check was Friday and both times were in this range. She does note that prior to onset of emesis, she was having difficulty keep her clonidine patch on due to increased sweating. She did replace that with a new patch around 1:30p. She has kept the patch on since that time, but unable to tolerate her PO meds. Pt has hx of marijuana hyperemsis syndrome. She states that she usually smokes about 2x/week. Her last use was Friday. She states that the non-use interval from Friday to Friday is not an unusual interval for her. Pt states she had a seizure in July. She was started on keppra, but this has since been stopped as she was not found to have an underlying seizure disorder. No return of seizures. Allergies Allergy/AdvReac Type Severity Reaction Status Date / Time napoles Allergy Intermediate Hives Verified 09/07/19 10:47 doxycycline Allergy Intermediate hives and Verified 09/07/19 10:47 vomitting Iodinated Contrast Media Allergy Intermediate GIANT Verified 09/07/19 10:47 HIVES , VOMITTING, BODY FEELS HOT loperamide Allergy Intermediate Hives and Verified 09/07/19 10:47 vomiting meperidine Allergy Intermediate HIVES, Verified 09/07/19 10:47 VOMITING prochlorperazine Allergy Intermediate N/V, Verified 09/07/19 10:47 ITCHINESS strawberry Allergy Intermediate HIVES Verified 09/07/19 10:47 tomato Allergy Intermediate HIVES Verified 09/07/19 10:47 iodine Allergy . Verified 09/07/19 10:47 latex AdvReac Mild RASH Verified 09/07/19 10:47 Home Medications Home Medications Medication Instructions Recorded Confirmed Type multivitamin 1 tab PO QAM 12/16/18 02/14/20 History losartan [Cozaar] 100 mg PO QAM 07/17/19 02/14/20 History metoprolol succinate [Toprol XL] 100 mg PO BID 07/17/19 02/14/20 History promethazine 25 mg PO Q6H PRN 07/17/19 02/14/20 History sertraline [Zoloft] 100 mg PO HS 07/17/19 02/14/20 History clonidine 0.1 mg/24 hr weekly 1 patch TOPICAL WK #4 ea 08/05/19 02/14/20 Rx transdermal patch levetiracetam 750 mg tablet 750 mg PO BID #60 tab 08/27/19 02/14/20 Rx ondansetron 4 mg disintegrating 4 mg PO Q6H PRN #30 tab 10/18/19 02/14/20 Rx tablet atorvastatin 40 mg tablet 40 mg PO HS #90 tab 01/04/20 02/14/20 Rx clopidogrel 75 mg tablet 75 mg PO QAM #90 tab 01/04/20 02/14/20 Rx Past Med/Surg History Medical History Acute UTI (Resolved) Anxiety disorder CAD (coronary artery disease) Mild-moderate non-obstructive Carotid stenosis < 50% stenosis B/L per US 12/16/18 Cervical disc disorder Cervical radiculopathy Chronic hypertension Congestive heart failure, acute 06/2017, admitted [facility]. Ruled 2/2 Takasubo CM. Degenerative disc disease, cervical Diverticulitis (Resolved) Diverticulosis Gastritis (Chronic) Grief reaction (Resolved) Hematuria History of diverticulitis of colon (Resolved) History of gastritis (Resolved) History of hypotension (Inactive) History of myocardial infarction HTN (hypertension) Hx-TIA (transient ischemic attack) Hyperlipidemia Hypertension (Inactive) Kidney infection (Resolved) CURRENT , RIGHT (ED [facility] LAST WEEK). JUST FINISHED ABX. X4 INFECTION OVER LAST 2 YRS Marijuana dependence Multiple thyroid nodules NSTEMI (non-ST elevated myocardial infarction) 2017 [facility]. Cath performed showed mild to moderate non-obstructive CAD. Pulmonary emphysema Renal artery stenosis Takotsubo cardiomyopathy 2017. Admitted [facility], full cardiac workup including cath. EF at the time 40%, now resolved to 60-65% on echo 2019. Transient cerebrovascular ischemia (Resolved) Surgical History H/O cervical spine surgery ACDF C4-7 Dr. [place] History of cardiac cath 5-6 YR AGO - CT - NO STENTS (per pt report, this cath not noted in cardiology notes) 2017, NSTEMI. NO INTERVENTION. History of hernia surgery History of hysterectomy History of ovarian cystectomy S/P cervical discectomy Family History Father Family history of stomach cancer Stroke Myocardial infarction Malignant neoplasm of esophagus Stomach cancer Uncle Family history of cancer FAMILY HISTORY OF CANCER - UNCLE - VOCAL CORDS FAMILY HISTORY OF CANCER - AUNT - ? KIND Throat cancer Grandmother (Maternal) Family history of breast cancer Family history of bone cancer Cancer bone Breast cancer Bone cancer Grandmother Bone cancer Other No pertinent family history Denies family history of Colon cancer Ovarian cancer Prostate cancer Crohn's disease IBD (inflammatory bowel disease) Social History (Updated 02/14/20 @ 14:55 by Mary Funk DO) Preferred Language: Icelandic Communication Ability: Effective Visual Impairment: Limited Hearing Ability: Normal Field Evidence Technician Required: No Beliefs That Will Affect Care: None marital status: Life Partner Current Living Situation: Significant Other current occupational status: employed 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 Other Information That Helps Us Care for You: No Feels Safe at Home: Yes Safety Concerns: Feels Safe At This Time Smoking Status: Former smoker Tobacco Type: cigarettes ; packs per day: 2 ; Second Hand Exposure: No ; Hx Alcohol Use: No Hx Substance Use: Yes substance use type: marijuana Last Used Substance: Days (ago) Last Used Substance Other:: 02/09/20 Childhood Exposure to Second-Hand Smoke: Yes caffeine: Yes (1 cup of coffee) during the past year weight has: other Dental Care, Regularly: No Physical Activity Frequency: Daily Physical Activity Frequency Comment: walking Seatbelt Use: always Sunscreen Use: Yes Review of Systems Review of Systems: Pertinent positives and negatives reviewed in HPI--all others negative Physical Exam Constitutional: WD/WN, vitals as above + ill appearing Eyes: normal visual pradhan by confrontation and + anicteric sclerae Neck: normal visual inspection and trachea midline Respiratory: normal respiratory effort, lungs clear to auscultation Cardiovascular: Rate/Rhythm: regular rate and regular rhythm Gastrointestinal (Abdomen): Inspection/Auscultation: abdomen not distended Percussion/Palpation: abdomen soft; abdomen nontender Musculoskeletal: Head/Neck/Chest: normocephalic and head atraumatic negative for edema, peripheral pulses intact Skin: no rashes, warm and dry Neurologic: awake; not confused Speech / Cognition: normal speech Psychiatric: Orientation: oriented x 3 and cooperative Speech: normal rate/rhythm/volume of speech Results & Data Results & Data ([facility]) Vital Signs (Past 12 Hours) Vital Signs Temp Pulse Pulse Resp BP BP Pulse Ox 02/14/20 14:00 80 18 215/133 H 97 02/14/20 12:00 86 18 223/125 H 97 02/14/20 10:41 71 18 249/132 H 97 02/14/20 10:03 58 L 13 225/128 H 02/14/20 10:00 79 18 02/14/20 09:30 59 L 14 02/14/20 09:19 36.8 C 62 18 232/136 H 98 02/14/20 09:14 63 11 L 232/136 H Diagnostic Findings C/AXR: neg for acute ECG Rhythm: sinus bradycardia Code Status & VTE Plan Code Status Full code, although pt states no prolonged mechanical life support, feeding tubes, etc. "I don't want anything heroic". Specifically says she is fine with short term trial of intubation. VTE Prophylaxis Plan VTE Prophylaxis will be ordered: Yes PG Care Time/CCT Total # of Minutes Spent Total Time Spent with Patient: Total time spent is greater than 50% in coordination of care (as documented) at patient's floor/unit and/or counseling patient: Coding Level of Care Code 79548 Initial Inpt Care Lvl 3 Diagnoses Hypertensive emergency I16.1 Nausea and vomiting R11.2 Headache R51 HTN (hypertension) I10 PRES (posterior reversible encephalopathy syndrome) I67.83 Cannabinoid hyperemesis syndrome F12.988 NSTEMI (non-ST elevated myocardial infarction) I21.4 Carotid stenosis I65.29 Hyperlipidemia E78.5 Anxiety disorder F41.9 DVT prophylaxis Z29.9
[2020-02-14 15:03] LABS: Appearance Urine Clear (Clear); Bacteria Urine Automated Negative (Negative); Bilirubin Urine Negative (Negative); Blood Urine 3+ (Negative); Color Urine Yellow; Epithelial Cell Urine Auto >30 /lpf (0-5); Glucose Urine UA Negative (Negative); Ketones Urine Negative (Negative); Leukocyte Esterase Urine Negative (Negative); Nitrite Urine Negative (Negative); Protein Urine 2+ (Negative); Specific Gravity Urine 1.019 (1.000-1.030); Urobilinogen Urine Negative (Negative)
[2020-02-14 15:31] LABS: Amphetamines+Metham, Urine Neg (Neg); Barbiturates, Urine Neg (Neg); Benzodiazepine, Urine Neg (Neg); Cocaine, Urine Neg (Neg); MDMA (Ecstacy), Urine Neg (Neg); Methadone, Urine Neg (Neg); Opiate, Urine Neg (Neg); Phencyclidine, Urine Neg (Neg)
[2020-02-14] MEDS ORDERED: PROMETHAZINE HCL 25 MG TAB PO PRN (16:04)
[2020-02-14] MEDS ORDERED: ONDANSETRON INJ 2 MG/ML 2 ML VIAL IV PRN (16:04)
[2020-02-14] MEDS ORDERED: MAGNESIUM HYDROXIDE SUSP 30 ML UDC PO PRN (16:04)
[2020-02-14] MEDS ORDERED: ONDANSETRON 4 MG OD TAB PO PRN (16:10)
[2020-02-14] MEDS: ACETAMINOPHEN 325 MG TAB PO PRN (16:14)
[2020-02-14] MEDS ORDERED: METOPROLOL TARTRATE 1 MG/ML VIAL IV STA (16:29)
[2020-02-14] MEDS: NSS + 20MEQ KCL 20 MEQ/1,000 ML BAG IV SCH (18:29)
[2020-02-14] MEDS: METOPROLOL SUCC 50MG EXT REL TAB PO SCH (20:01)
[2020-02-14] MEDS ORDERED: ATORVASTATIN 40 MG TAB PO SCH (21:00)
[2020-02-14] MEDS ORDERED: SERTRALINE HCL 100 MG TABLET PO SCH (21:00)
[2020-02-14] MEDS: CHECK CLONIDINE PATCH PLACEMENT SCH (22:22)
[2020-02-15] MEDS: NSS + 20MEQ KCL 20 MEQ/1,000 ML BAG IV SCH (06:00)
[2020-02-15 06:32] LABS: BUN Creatinine Ratio 19.9 (10-20); Calcium 8.2 mg/dl (8.5-10.1); Creatinine Clr Calc Pharmacy 98.2 ml/min; Est GFR (African American) 119.3; Est GFR (Non-African American) 102.9; Magnesium 1.9 mg/dl (1.8-2.4); Potassium 3.3 mmol/L (3.5-5.1)
[2020-02-15 06:48] LABS: Phosphorus 1.4 mg/dl (2.5-4.9)
[2020-02-15] MEDS ORDERED: POTASSIUM PHOS 3 MMOL/1 ML INFUSION IV STA (06:52)
[2020-02-15] MEDS ORDERED: POTASSIUM PHOSPHATE 24 MMOL in SODIUM CHLORIDE 0.9% 500 ML IV ONE (07:30)
[2020-02-15] MEDS: CHECK CLONIDINE PATCH PLACEMENT SCH (08:04)
[2020-02-15] MEDS: ACETAMINOPHEN 325 MG TAB PO PRN (08:12)
[2020-02-15] MEDS ORDERED: cloNIDine HCL 0.1 MG/24 HR TRANSDERM SYS TD SCH (09:00)
[2020-02-15] MEDS ORDERED: CLOPIDOGREL BISULFATE 75 MG TAB PO SCH (09:00)
[2020-02-15] MEDS ORDERED: MULTIVITAMIN TAB PO SCH (09:00)
[2020-02-15] MEDS ORDERED: LOSARTAN POTASSIUM 50 MG TAB PO SCH (09:00)
[2020-02-15] MEDS: METOPROLOL SUCC 50MG EXT REL TAB PO SCH (10:20)
[2020-02-15] MEDS ORDERED: POT PHOSPHATE MONOBASIC W/ SOD TAB PO SCH (10:30)
[2020-02-15 11:50] VITALS: BP 152/90; TEMP 97.7; O2SAT 97
--- NOTE | 2020-02-15 12:02 | Discharge Summary ---
Date of Service February 15, 2020 Admission HPI Per Admitting Provider 54 y/o F c/o n/v. Pt states she generally has an episode of n/v per week, but nothing like this. She states that she felt fine otherwise through Friday morning. She took her AM medications and ate without issue. Around 12-1230 she had sudden onset of intractable n/v. She has not been able to keep anything down, including water or her medications, since this time. No real abd pain other than occasional cramping with prolonged emesis. No diarrhea. She was having some SOB with prolonged emesis as well, but none outside of this. Pt denies fever, chest pain, LE pain or swelling. No one else at home is sick. No unusual foods. Last emesis was in the ED, just prior to being taken to XR. She has tolerated a few sips of water since XR. She states she feels exhausted at this point, but her nausea is better. She does have a headache at present that is new. She states it is mild. Pt was given labetalol x2 in the ED without effect. She was given hydralazine just prior to my exam with slight improvement in systolic BP from 223 to 213. Pt states she checks her BP most days and it is 120s/70s. Last check was Friday and both times were in this range. She does note that prior to onset of emesis, she was having difficulty keep her clonidine patch on due to increased sweating. She did replace that with a new patch around 1:30p. She has kept the patch on since that time, but unable to tolerate her PO meds. Pt has hx of marijuana hyperemsis syndrome. She states that she usually smokes about 2x/week. Her last use was Friday. She states that the non-use interval from Friday to Friday is not an unusual interval for her. Pt states she had a seizure in July. She was started on keppra, but this has since been stopped as she was not found to have an underlying seizure disorder. No return of seizures. Admission Exam Per Admitting Provider Constitutional: WD/WN, vitals as above + ill appearing Eyes: normal visual pradhan by confrontation and + anicteric sclerae Neck: normal visual inspection and trachea midline Respiratory: normal respiratory effort, lungs clear to auscultation Cardiovascular: Rate/Rhythm: regular rate and regular rhythm Gastrointestinal (Abdomen): Inspection/Auscultation: abdomen not distended Percussion/Palpation: abdomen soft; abdomen nontender Musculoskeletal: Head/Neck/Chest: normocephalic and head atraumatic negative for edema, peripheral pulses intact Skin: no rashes, warm and dry Neurologic: awake; not confused Speech / Cognition: normal speech Psychiatric: Orientation: oriented x 3 and cooperative Speech: normal rate/rhythm/volume of speech Principal Diagnosis Hypertensive emergency Discharge Exam Constitutional WD/WN, vitals as above Eyes PERRL, conjunctivae normal, anicteric sclerae ENMT external ear and nose normal, oropharynx normal Neck normal visual inspection Respiratory normal respiratory effort, lungs clear to auscultation Cardiovascular RRR, no murmur, no edema Gastrointestinal (Abdomen) normal bowel sounds, soft, nontender, no hepatosplenomegaly Musculoskeletal no cyanosis or clubbing, extremities motor strength 5/5 Skin no rashes, warm and dry Psychiatric A+Ox3, euthymic affect Discharge Data Allergies Allergy/AdvReac Type Severity Reaction Status Date / Time napoles Allergy Intermediate Hives Verified 09/07/19 10:47 doxycycline Allergy Intermediate hives and Verified 09/07/19 10:47 vomitting Iodinated Contrast Media Allergy Intermediate GIANT Verified 09/07/19 10:47 HIVES , VOMITTING, BODY FEELS HOT loperamide Allergy Intermediate Hives and Verified 09/07/19 10:47 vomiting meperidine Allergy Intermediate HIVES, Verified 09/07/19 10:47 VOMITING prochlorperazine Allergy Intermediate N/V, Verified 09/07/19 10:47 ITCHINESS strawberry Allergy Intermediate HIVES Verified 09/07/19 10:47 tomato Allergy Intermediate HIVES Verified 09/07/19 10:47 iodine Allergy . Verified 09/07/19 10:47 latex AdvReac Mild RASH Verified 09/07/19 10:47 Consultations 02/14/20 13:55 ED Decision to Admit Stat Hospital Course (1) Hypertensive emergency: 54 yo F PMHx HTN, marijuana use with hyperemesis syndrome, posterior reversible encephalopathy syndrome, HLD, anxiety and depression admitted for hypertensive emergency, with complaints of nausea. Hypertensive emergency causing nausea and vomiting: - Patient was without neurological deficits while admitted, and is asymptomatic following decrease in blood pressure. - BP normotensive following Labetalol 5mg IV x1, Lopressor 5mg IV x1, Hydralazine 10mg IV x1. - History of clonidine patch "slipping off all weekend" which I suspect may be contributing to her HTN emergency in the ED. - Given history of flushing and "hot flashes" s/p hysterectomy 12 years ago have ordered serum metanephrines, will call patient with results. - Safe for discharge home as patient is normotensive and tolerating full diet well prior to discharge. - Will require further workup to determine if flushing is 2/2 menopause vs. pheochromocytoma vs. other causes. - TSH normal. - Last CT in December 2018 did not show any findings suggestive of adrenal mass. Hypokalemia/Hypophosphatemia: - Labwork with hypophosphatemia and hypokalemia likely 2/2 nausea and vomiting. - Repleted with KPhos. - Suspect will return to normal with normal diet. PRES: - without seizures and no longer on Keppra therapy. - Follow up per primary. HTN: - Continue home clonidine, Toprol XL, losartan. Cannabinoid hyperemesis syndrome: - Advised d/c of cannabis to decrease nausea that she gets intermittently at home. Anxiety/Depression: - Continue home medications. Dispo: home with self care (2) Nausea and vomiting: (3) PRES (posterior reversible encephalopathy syndrome): (4) HTN (hypertension): (5) Cannabinoid hyperemesis syndrome: (6) Hypokalemia: (7) Hypophosphatemia: (8) Anxiety disorder: Total Time Total Time Spent Total Time Spent (In Minutes): I spent 25 minutes in seeing the patient, reviewing labs, and documenting. Discharge Plan Discharge Items Patient Disposition: Home - Self-Care Reason For Visit: INTOLERANCE TO PO,HTN EMERGENCY Discharge Diagnosis: Hypertension Activity: Per Instructions section Non-emergency contact: Primary Care Provider Call non-emergency contact if: you have any medication questions, your symptoms worsen and your temperature is above 101 Follow-up/Referrals: Teena Killian DO [Primary Care Provider] - Diet: Regular Addtl Attending Provider Instructions: You came to the emergency room for nausea and vomiting. You were found to have extremely high blood pressure in the 200s/100s. We gave you several doses of IV medication to get your blood pressure down, and replaced your clonidine patch. It is likely that your blood pressure was so high due to your clonidine patch slipping throughout the weekend due to sweating. We checked your thyroid function, electrolytes, liver function, blood counts, and pancreatic enzymes, all of which were normal. We did a blood test to check your adrenal gland function, called a serum metanephrine level. This level takes several days to come back and you will be called with the results. Your symptoms improved with reduction of your blood pressure, and you tolerated food well without nausea or vomiting. You were determined to be safe for discharge home. No changes to your home medications were made. Please call your primary care doctor to schedule a follow up within one week to discuss further blood testing for your high blood pressure and hot flashes, as well as talk about the medications you are on and if they should change. If you experience change in your symptoms such as severe headaches, shortness of breath, chest pain, nausea or vomiting, please seek urgent medical attention. Pending Studies at Discharge: Yes Studies:: Serum metanephrine level Stand-Alone Forms: My [facility], Smoking Cessation Medications and DC Order Prescriptions: Continued levetiracetam 750 mg tablet 750 mg PO BID Qty: 60 RF: 2 ondansetron 4 mg tablet,disintegrating 4 mg PO Q6H PRN (Reason: Nausea And Vomiting) Qty: 30 RF: 0 atorvastatin [Lipitor] 40 mg tablet 40 mg PO HS Qty: 90 RF: 0 clopidogrel [Plavix] 75 mg tablet 75 mg PO QAM Qty: 90 RF: 0 clonidine [[id number]] 0.1 mg/24 hr patch weekly 1 patch topical WK Qty: 4 RF: 4 multivitamin Tablet 1 tab PO QAM RF: 0 metoprolol succinate [Toprol XL] 100 mg tablet extended release 24 hr 100 mg PO BID RF: 0 sertraline [Zoloft] 100 mg tablet 100 mg PO HS RF: 0 promethazine 25 mg tablet 25 mg PO Q6H PRN (Reason: Nausea And Vomiting) RF: 0 losartan [Cozaar] 100 mg tablet 100 mg PO QAM RF: 0 No Action amlodipine 5 mg tablet 5 mg PO DAILY Qty: 30 RF: 2 Discharge Orders: Discharge Order (Routine); Ordered 02/15/20 Ordered By: Marychuy Betancourt/Other Patient Handouts: Hypertension Dc Admission Data Admit Date/Time: 02/14/20 14:38 Attending Provider: Tate Celestin Admit Provider: Mary Funk Primary Care Provider: Teena Killian Other Providers: Mary Funk Other Interventions: Discharge Summary Assessment (RN) Last Done: 02/15/20 12:52 DC Date/Time DO NOT enter until pt leaves facility: 02/15/20 13:47 Supervising Physician Co-Signing Physician Notes I also saw the patient current resident physician and confirmed real portions of the history and physical examination. Agree with the impression and plan as noted above. The time of examination this morning, the patient was without any discomfort. She denied any chest pain. She was normotensive. She notes recurrent episodes of hypertension as well as sweating and flushing, although it is not clear the symptoms are always related the same time. She has had an extensive work-up before for renal artery stenosis; it is not clear if she is previously had a work-up for pheochromocytoma but we did discuss this as a rare entity that can cause similar symptoms. We will place order for plasma free metanephrines prior to discharge; if suspicion remains high despite a normal plasma free metanephrine level could consider a 24-hour urine study. Resident Activity Tracking Resident Involvement: Resident Care Provided Care Provided: Adult Hospital Medicine
[2020-02-15 12:55] VITALS: PULSE 58
[2020-02-17 01:09] LABS: Marijuana Quant, GCMS Urine 340 ng/mL (<5)
[2020-02-19 13:50] LABS: Metanephrine, Plasma 71 pg/mL (<=57); Normetanephrine Plasma 134 pg/mL (<=148); Total Metanephrine Plasma 205 pg/mL (<=205)
== END 2020-02-15 13:47 | disposition home or self-care (01) ==
LOC: ED 09:11 → 2E 14:38 → INTOOBSV 14:38 → SUATTDRO 14:38 → 2E 15:34

== ENCOUNTER 2020-04-07 21:06 | Observation (INO) ==
[2020-04-07] MEDS ORDERED: NITROGLYCERIN 2% OINTMENT 30GM TUBE EXT STA (21:42)
[2020-04-07] MEDS ORDERED: SODIUM CHLORIDE 0.9% 500 ML IV SCH (21:45)
--- NOTE | 2020-04-07 21:47 | Emergency Department Note ---
Impression & Plan Substernal chest pain, Nausea & vomiting, Diarrhea, Fever ED Provider Note INFORMANT: Patient ED PROVIDER(S): Prabhu Dumont MD CHIEF COMPLAINT: Chest pain PLAN: Disposition: Admitted Condition: Good MEDICAL DECISION MAKING: Patient presented complaining of chest pain. She also had associated nausea vomiting and diarrhea. She was found to have a borderline fever. The patient was placed in isolation and a cover test was performed. This was negative. Chest imaging was unremarkable. The patient's CBC showed a slight leukocytosis of 11,000. Her chemistries and LFTs were unremarkable. Troponin was detectable but still within normal limits. ECG did not show any acute process. The patient was hydrated in the ER. On reassessment she was feeling well. She did receive Nitropaste. She had no recurrent chest pain. She noted some indigestion and was given Maalox. I discussed further management in the hospital given the chest pain and her history. The patient was in agreement. Consultation was made with the [facility]. The patient was evaluated in the ER for further management. Triage Nursing notes reviewed and agree them. Vital Signs: reviewed and remarkable for no significant abnormalities Differential diagnosis: Cardiac ischemia, aortic dissection, pulmonary embolism, pneumothorax, pneumonia, pericarditis, myocarditis, esophageal rupture, GERD, cholecystitis, pancreatitis, musculoskeletal, viral syndrome, gastroenteritis, infectious diarrhea, as well as other pathologies. Diagnostics interpreted by me: ECG: Rate: 79 Rhythm:Normal sinus [place]:Normal QRS:Normal ST segements:No elevation or depression Other:No PACs or PVCs Cardiac Monitoring: Cardiac monitoring ordered by me: The patient was placed on continuous cardiac monitoring and observed. It revealed a normal sinus rhythm at 74 beats per minute without ectopy or evidence of dysrhythmia. Imaging studies: Chest x-ray. Findings: A chest x-ray was performed and revealed no pneumothorax, effusion, infiltrate, pulmonary edema, free air under the diaphragm, or wide mediastinum. Impression: No acute disease. Consultation(s): [facility] service, Dr. Aron Drake HPI: The patient is a 55 year old female who presents to the Emergency Room with complaints of chest pain. This started this afternoon and is now resolved. The patient also notes the following associated symptoms, nausea, vomiting, and diarrhea. She was also feverish. She has some shortness of breath.. The patient has been given Zofran, aspirin, and 3 nitroglycerin by EMS successfully for relieving factors. Current pain is rated as 0/10. No loss of smell or taste. No known COVID contacts. She does have a cardiac history. Pt denies LOC, headache, chills, diaphoresis, visual changes, neck pain, abdominal pain, back pain, melena, hematochezia, urinary symptoms, numbness, weakness, lymphadenopathy, rash, or other complaints. ROS: See above HPI for pertinent positives & negatives. A total of 10 systems reviewed and were otherwise negative. PAST MEDICAL HISTORY:See Below, CAD PAST SURGICAL HISTORY:See Below FAMILY HISTORY:See Below SOCIAL HISTORY:See Below, former smoker HOME MEDICATIONS:See Below ALLERGIES:See Below VITALS:See Below PHYSICAL EXAMINATION: GENERAL: Awake, alert, well-appearing, in no distress HENT: Normocephalic, atraumatic. Oropharynx unremarkable. EYES: Normal conjunctiva. Sclera non-icteric. NECK: Inspection normal. Non-tender. Supple. No nuchal rigidity. FROM. No masses. RESPIRATORY: Clear to auscultation. No wheezes. No rales. Normal respiratory effort. CARDIAC: Normal rate. Normal rhythm. No murmurs. No rubs. Extremities warm and well perfused. Pulses equal. No JVD. GI: Soft, non-distended. No tenderness to palpation. No rebound or guarding. No masses. RECTAL: Deferred. MUSCULOSKELETAL: Atraumatic. Chest examination reveals no tenderness. The back is symmetrical on inspection without obvious abnormality. There is no CVA tenderness to palpation. No joint edema. LOWER EXTREMITIES: Calves are equal size bilaterally and non-tender. No edema. No discoloration. NEURO: Normal sensorium. No sensory or motor deficits noted. SKIN: No rash or jaundice noted. Prabhu Dumont MD Past Med/Surg History Medical History (Updated 04/07/20 @ 21:45 by Prabhu Dumont MD) Acute UTI Anxiety disorder CAD (coronary artery disease) Mild-moderate non-obstructive Carotid stenosis < 50% stenosis B/L per US 12/16/18 Cervical disc disorder Cervical radiculopathy Chronic hypertension Congestive heart failure, acute 06/2017, admitted [facility]. Ruled 2/2 Takasubo CM. Degenerative disc disease, cervical Diverticulitis Diverticulosis Gastritis Grief reaction Hematuria History of diverticulitis of colon History of gastritis History of hypotension History of myocardial infarction HTN (hypertension) Hx-TIA (transient ischemic attack) Hypercalcemia Hyperlipidemia Hypertension Kidney infection CURRENT , RIGHT (ED [facility] LAST WEEK). JUST FINISHED ABX. X4 INFECTION OVER LAST 2 YRS Marijuana dependence Multiple thyroid nodules NSTEMI (non-ST elevated myocardial infarction) 2017 [facility]. Cath performed showed mild to moderate non-obstructive CAD. Pulmonary emphysema Renal artery stenosis Takotsubo cardiomyopathy 2017. Admitted [facility], full cardiac workup including cath. EF at the time 40%, now resolved to 60-65% on echo 2019. Transient cerebrovascular ischemia Vitamin D deficiency Surgical History H/O cervical spine surgery ACDF C4-7 Dr. [place] History of cardiac cath 5-6 YR AGO - [place] - NO STENTS (per pt report, this cath not noted in cardiology notes) 2017, NSTEMI. NO INTERVENTION. History of hernia surgery History of hysterectomy History of ovarian cystectomy S/P cervical discectomy Family History Father Family history of stomach cancer Stroke Myocardial infarction Malignant neoplasm of esophagus Stomach cancer Uncle Family history of cancer FAMILY HISTORY OF CANCER - UNCLE - VOCAL CORDS FAMILY HISTORY OF CANCER - AUNT - ? KIND Throat cancer Grandmother (Maternal) Family history of breast cancer Family history of bone cancer Cancer bone Breast cancer Bone cancer Grandmother Bone cancer Other No pertinent family history Denies family history of Colon cancer Ovarian cancer Prostate cancer Crohn's disease IBD (inflammatory bowel disease) Social History Smoking Status: Never smoker packs per day: 2; Second Hand Exposure: No; Hx Alcohol Use: No Hx Substance Use: Yes Last Used Substance: Days (ago) Last Used Substance Other:: 02/09/20 Preferred Language: Kazakh Communication Ability: Effective Visual Impairment: Limited Hearing Ability: Normal Sourcing Coordinator Required: No Beliefs That Will Affect Care: None marital status: Life Partner Current Living Situation: Significant Other current occupational status: employed 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 Feels Safe at Home: Yes Childhood Exposure to Second-Hand Smoke: Yes caffeine: Yes (1 cup of coffee) during the past year weight has: other Dental Care, Regularly: No Physical Activity Frequency: Daily Physical Activity Frequency Comment: walking Seatbelt Use: always Sunscreen Use: Yes Allergies Allergies Allergy/AdvReac Type Severity Reaction Status Date / Time napoles Allergy Intermediate Hives Verified 04/07/20 23:05 doxycycline Allergy Intermediate hives and Verified 04/07/20 23:05 vomitting Iodinated Contrast Media Allergy Intermediate GIANT Verified 04/07/20 23:05 HIVES , VOMITTING, BODY FEELS HOT loperamide Allergy Intermediate Hives and Verified 04/07/20 23:05 vomiting meperidine Allergy Intermediate HIVES, Verified 04/07/20 23:05 VOMITING prochlorperazine Allergy Intermediate N/V, Verified 04/07/20 23:05 ITCHINESS strawberry Allergy Intermediate HIVES Verified 04/07/20 23:05 tomato Allergy Intermediate HIVES Verified 04/07/20 23:05 iodine Allergy . Verified 04/07/20 23:05 latex AdvReac Mild RASH Verified 04/07/20 23:05 Home Meds Home Medications Medication Instructions Recorded Confirmed multivitamin 1 tab PO QAM 12/16/18 04/07/20 losartan [Cozaar] 100 mg PO QAM 07/17/19 04/07/20 metoprolol succinate [Toprol XL] 100 mg PO BID 07/17/19 04/07/20 promethazine 25 mg PO Q6H PRN 07/17/19 04/07/20 Previous Rx's Medication Instructions Recorded clonidine 0.1 mg/24 hr weekly 1 patch TOPICAL WK #4 ea 08/05/19 transdermal patch ondansetron 4 mg disintegrating 4 mg PO Q6H PRN #30 tab 10/18/19 tablet clopidogrel 75 mg tablet 75 mg PO QAM #90 tab 01/04/20 amlodipine 5 mg tablet 5 mg PO DAILY #30 tab 02/15/20 sertraline 100 mg tablet 100 mg PO HS #90 tab 02/29/20 atorvastatin 80 mg tablet 80 mg PO HS #90 tab 04/04/20 Results & Data (ED) Vital Signs Vital Signs - 24 hr 04/07/20 21:24 04/07/20 21:30 04/07/20 21:59 Temperature 37.9 C H Temperature Source Oral Pulse Rate 80 82 80 Pulse Rate from SpO2 Sensor 82 81 Respiratory Rate 18 18 18 Blood Pressure 165/97 H 156/92 H 160/104 H Blood Pressure Mean 119 114 121 Pulse Oximetry 95 96 97 Oxygen Delivery Method Room Air Sepsis Recent Fever Within 48 Hours No Sepsis New/Unexplained Change in Mental Status No Sepsis Action Taken by Nursing No Action Required 04/07/20 22:00 04/07/20 22:05 04/07/20 22:10 Temperature Temperature Source Pulse Rate 81 83 80 Pulse Rate from SpO2 Sensor 80 84 82 Respiratory Rate 18 18 18 Blood Pressure 166/108 H 174/106 H 178/118 H Blood Pressure Mean 143 124 145 Pulse Oximetry 97 96 96 Oxygen Delivery Method Sepsis Recent Fever Within 48 Hours Sepsis New/Unexplained Change in Mental Status Sepsis Action Taken by Nursing 04/07/20 22:15 04/07/20 22:20 04/07/20 22:25 Temperature Temperature Source Pulse Rate 88 80 87 Pulse Rate from SpO2 Sensor 89 80 84 Respiratory Rate 18 18 18 Blood Pressure 174/111 H 173/106 H 164/98 H Blood Pressure Mean 138 132 116 Pulse Oximetry 97 96 97 Oxygen Delivery Method Room Air Sepsis Recent Fever Within 48 Hours Sepsis New/Unexplained Change in Mental Status Sepsis Action Taken by Nursing 04/07/20 22:30 04/07/20 22:35 04/07/20 22:40 Temperature Temperature Source Pulse Rate 82 81 83 Pulse Rate from SpO2 Sensor 83 81 82 Respiratory Rate 18 18 18 Blood Pressure 161/113 H 160/104 H 166/114 H Blood Pressure Mean 132 144 140 Pulse Oximetry 96 96 96 Oxygen Delivery Method Sepsis Recent Fever Within 48 Hours Sepsis New/Unexplained Change in Mental Status Sepsis Action Taken by Nursing 04/07/20 22:45 04/07/20 22:50 04/07/20 22:55 Temperature Temperature Source Pulse Rate 82 80 76 Pulse Rate from SpO2 Sensor 84 79 75 Respiratory Rate 18 18 18 Blood Pressure 158/97 H 160/92 H 162/90 H Blood Pressure Mean 114 108 110 Pulse Oximetry 94 92 95 Oxygen Delivery Method Sepsis Recent Fever Within 48 Hours Sepsis New/Unexplained Change in Mental Status Sepsis Action Taken by Nursing 04/07/20 23:00 04/07/20 23:05 04/07/20 23:10 Temperature Temperature Source Pulse Rate 79 75 79 Pulse Rate from SpO2 Sensor 80 76 78 Respiratory Rate 18 18 18 Blood Pressure 159/97 H 166/94 H 159/102 H Blood Pressure Mean 127 111 132 Pulse Oximetry 95 95 96 Oxygen Delivery Method Sepsis Recent Fever Within 48 Hours Sepsis New/Unexplained Change in Mental Status Sepsis Action Taken by Nursing 04/07/20 23:15 04/07/20 23:20 04/07/20 23:25 Temperature Temperature Source Pulse Rate 81 81 91 H Pulse Rate from SpO2 Sensor 80 81 91 H Respiratory Rate 18 18 18 Blood Pressure 170/101 H 166/100 H 159/100 H Blood Pressure Mean 125 121 118 Pulse Oximetry 95 96 96 Oxygen Delivery Method Sepsis Recent Fever Within 48 Hours Sepsis New/Unexplained Change in Mental Status Sepsis Action Taken by Nursing 04/08/20 00:00 04/08/20 00:01 04/08/20 00:05 Temperature Temperature Source Pulse Rate 85 82 83 Pulse Rate from SpO2 Sensor 84 83 82 Respiratory Rate 19 18 18 Blood Pressure 90/59 L 96/57 L Blood Pressure Mean 68 73 Pulse Oximetry 93 93 95 Oxygen Delivery Method Sepsis Recent Fever Within 48 Hours Sepsis New/Unexplained Change in Mental Status Sepsis Action Taken by Nursing 04/08/20 00:20 04/08/20 00:30 Temperature Temperature Source Pulse Rate 78 79 Pulse Rate from SpO2 Sensor 78 80 Respiratory Rate 18 18 Blood Pressure 99/59 L 111/63 Blood Pressure Mean 76 78 Pulse Oximetry 95 93 Oxygen Delivery Method Sepsis Recent Fever Within 48 Hours Sepsis New/Unexplained Change in Mental Status Sepsis Action Taken by Nursing Laboratory Data Result diagrams: 04/07/20 22:03 04/07/20 22:57 Lab Results 04/07/20 04/07/20 04/07/20 Range/Units 22:03 22:03 22:03 WBC 11.62 H (4.8-10.8) K/uL RBC 4.66 (4.2-5.4) M/uL Hgb 14.5 (12.0-16.0) g/dL Hct 43.2 (37-47) % MCV 92.7 (80-100) fL MCH 31.1 (25-34) pg MCHC 33.6 (32-36) g/dL RDW Std Deviation 44.4 (36.4-46.3) fL RDW Coeff of [place] 13.1 (11.5-14.5) % Plt Count 329 (130-400) K/uL MPV 10.2 (7.4-10.4) fL Immature Gran % (Auto) 0.3 % Neut % (Auto) 80.4 % Lymph % (Auto) 13.9 % Petroleum % (Auto) 5.1 % Eos % (Auto) 0.1 % Baso % (Auto) 0.2 % Neut # (Auto) 9.35 H (1.4-6.5) K/uL Lymph # (Auto) 1.62 (1.2-3.4) K/uL Petroleum # (Auto) 0.59 (0.11-0.59) K/uL Eos # (Auto) 0.01 (0-0.5) K/uL Baso # (Auto) 0.02 (0-0.2) K/uL Immature Gran # (Auto) 0.03 H (0.00-0.02) K/uL PT Cancelled INR Cancelled APTT Cancelled PTT Ratio Cancelled Sodium 137 (136-145) mmol/L Potassium (3.5-5.1) mmol/L Chloride 105 (98-107) mmol/L Carbon Dioxide 22 (21-32) mmol/L Anion Gap 10.0 (3-11) BUN 17 (7-18) mg/dl Creatinine 0.91 (0.6-1.2) mg/dl Est Cr Clr Drug Dosing 72.3 ml/min Est GFR ( Amer) 82.9 Est GFR (Non-Af Amer) 71.5 BUN/Creatinine Ratio 19.2 (10-20) Glucose 130 H (70-99) mg/dl Calcium 9.1 (8.5-10.1) mg/dl Total Bilirubin 0.4 (0.2-1) mg/dl AST (15-37) U/L ALT 21 (12-78) U/L Alkaline Phosphatase 83 (45-117) U/L Troponin I 0.020 (0-0.045) ng/ml Total Protein 8.2 (6.4-8.2) gm/dl Albumin 3.7 (3.4-5.0) gm/dl Globulin 4.5 H (2.5-4.0) gm/dl Albumin/Globulin Ratio 0.8 L (0.9-2) Lipase 101 (73-393) U/L Urine Color Urine Appearance (Clear) Urine pH (4.5-7.5) Ur Specific [place] (1.000-1.030) Urine Protein (Negative) Urine Glucose (UA) (Negative) Urine Ketones (Negative) Urine Blood (Negative) Urine Nitrite (Negative) Urine Bilirubin (Negative) Urine Urobilinogen (Negative) Ur Leukocyte Esterase (Negative) Urine WBC (Auto) (0-5) /hpf Urine RBC (Auto) (0-4) /hpf U Hyaline Cast (Auto) (0-5) /lpf U Epithel Cells (Auto) (0-5) /lpf Urine Bacteria (Auto) (Negative) Urine Opiates Screen (Neg) Ur Methadone, Qual (Neg) Urine Barbiturates (Neg) Ur Phencyclidine (PCP) (Neg) U Amphetamin/Meth Scrn (Neg) MDMA (Ecstasy) Screen (Neg) U Benzodiazepines Scrn (Neg) Ur Cocaine Metabolite (Neg) U Marijuana (THC) Screen (Neg) COVID-19 Eval Order COVID-19 PCR (Negative) 04/07/20 04/07/20 04/07/20 Range/Units 22:03 22:03 22:57 WBC (4.8-10.8) K/uL RBC (4.2-5.4) M/uL Hgb (12.0-16.0) g/dL Hct (37-47) % MCV (80-100) fL MCH (25-34) pg MCHC (32-36) g/dL RDW Std Deviation (36.4-46.3) fL RDW Coeff of Jose Luis (11.5-14.5) % Plt Count (130-400) K/uL MPV (7.4-10.4) fL Immature Gran % (Auto) % Neut % (Auto) % Lymph % (Auto) % Pet[place] % (Auto) % Eos % (Auto) % Baso % (Auto) % Neut # (Auto) (1.4-6.5) K/uL Lymph # (Auto) (1.2-3.4) K/uL [place] # (Auto) (0.11-0.59) K/uL Eos # (Auto) (0-0.5) K/uL Baso # (Auto) (0-0.2) K/uL Immature Gran # (Auto) (0.00-0.02) K/uL PT INR APTT PTT Ratio Sodium (136-145) mmol/L Potassium 3.4 L (3.5-5.1) mmol/L Chloride (98-107) mmol/L Carbon Dioxide (21-32) mmol/L Anion Gap (3-11) BUN (7-18) mg/dl Creatinine (0.6-1.2) mg/dl Est Cr Clr Drug Dosing ml/min Est GFR ( Amer) Est GFR (Non-Af Amer) BUN/Creatinine Ratio (10-20) Glucose (70-99) mg/dl Calcium (8.5-10.1) mg/dl Total Bilirubin (0.2-1) mg/dl AST 14 L (15-37) U/L ALT (12-78) U/L Alkaline Phosphatase (45-117) U/L Troponin I (0-0.045) ng/ml Total Protein (6.4-8.2) gm/dl Albumin (3.4-5.0) gm/dl Globulin (2.5-4.0) gm/dl Albumin/Globulin Ratio (0.9-2) Lipase (73-393) U/L Urine Color Urine Appearance (Clear) Urine pH (4.5-7.5) Ur Specific [place] (1.000-1.030) Urine Protein (Negative) Urine Glucose (UA) (Negative) Urine Ketones (Negative) Urine Blood (Negative) Urine Nitrite (Negative) Urine Bilirubin (Negative) Urine Urobilinogen (Negative) Ur Leukocyte Esterase (Negative) Urine WBC (Auto) (0-5) /hpf Urine RBC (Auto) (0-4) /hpf U Hyaline Cast (Auto) (0-5) /lpf U Epithel Cells (Auto) (0-5) /lpf Urine Bacteria (Auto) (Negative) Urine Opiates Screen (Neg) Ur Methadone, Qual (Neg) Urine Barbiturates (Neg) Ur Phencyclidine (PCP) (Neg) U Amphetamin/Meth Scrn (Neg) MDMA (Ecstasy) Screen (Neg) U Benzodiazepines Scrn (Neg) Ur Cocaine Metabolite (Neg) U Marijuana (THC) Screen (Neg) COVID-19 Eval Order Covid19 Done at [facility] COVID-19 PCR NEGATIVE (Negative) 04/07/20 04/07/20 04/07/20 Range/Units 22:57 23:35 23:35 WBC (4.8-10.8) K/uL RBC (4.2-5.4) M/uL Hgb (12.0-16.0) g/dL Hct (37-47) % MCV (80-100) fL MCH (25-34) pg MCHC (32-36) g/dL RDW Std Deviation (36.4-46.3) fL RDW Coeff of Jose Luis (11.5-14.5) % Plt Count (130-400) K/uL MPV (7.4-10.4) fL Immature Gran % (Auto) % Neut % (Auto) % Lymph % (Auto) % Petroleum % (Auto) % Eos % (Auto) % Baso % (Auto) % Neut # (Auto) (1.4-6.5) K/uL Lymph # (Auto) (1.2-3.4) K/uL Pet[place] # (Auto) (0.11-0.59) K/uL Eos # (Auto) (0-0.5) K/uL Baso # (Auto) (0-0.2) K/uL Immature Gran # (Auto) (0.00-0.02) K/uL PT 10.3 INR 1.0 APTT 25.9 PTT Ratio 0.9 Sodium (136-145) mmol/L Potassium (3.5-5.1) mmol/L Chloride (98-107) mmol/L Carbon Dioxide (21-32) mmol/L Anion Gap (3-11) BUN (7-18) mg/dl Creatinine (0.6-1.2) mg/dl Est Cr Clr Drug Dosing ml/min Est GFR ( Amer) Est GFR (Non-Af Amer) BUN/Creatinine Ratio (10-20) Glucose (70-99) mg/dl Calcium (8.5-10.1) mg/dl Total Bilirubin (0.2-1) mg/dl AST (15-37) U/L ALT (12-78) U/L Alkaline Phosphatase (45-117) U/L Troponin I (0-0.045) ng/ml Total Protein (6.4-8.2) gm/dl Albumin (3.4-5.0) gm/dl Globulin (2.5-4.0) gm/dl Albumin/Globulin Ratio (0.9-2) Lipase (73-393) U/L Urine Color Yellow Urine Appearance Clear (Clear) Urine pH 6.5 (4.5-7.5) Ur Specific [place] 1.011 (1.000-1.030) Urine Protein 2+ H (Negative) Urine Glucose (UA) Negative (Negative) Urine Ketones Negative (Negative) Urine Blood 2+ H (Negative) Urine Nitrite Negative (Negative) Urine Bilirubin Negative (Negative) Urine Urobilinogen Negative (Negative) Ur Leukocyte Esterase Negative (Negative) Urine WBC (Auto) 1-5 (0-5) /hpf Urine RBC (Auto) 10-30 H (0-4) /hpf U Hyaline Cast (Auto) 1-5 (0-5) /lpf U Epithel Cells (Auto) 5-10 H (0-5) /lpf Urine Bacteria (Auto) Negative (Negative) Urine Opiates Screen Neg (Neg) Ur Methadone, Qual Neg (Neg) Urine Barbiturates Neg (Neg) Ur Phencyclidine (PCP) Neg (Neg) U Amphetamin/Meth Scrn Neg (Neg) MDMA (Ecstasy) Screen Neg (Neg) U Benzodiazepines Scrn Neg (Neg) Ur Cocaine Metabolite Neg (Neg) U Marijuana (THC) Screen Pos H (Neg) COVID-19 Eval Order COVID-19 PCR (Negative) Administered Medications Discontinued Medications Al Hydrox/Mg Hydrox/Simethicone (Aluminum/Magnesium Susp 30 Ml Udc) 30 ml PO NOW STA Stop: 04/07/20 23:13 Last Admin: 04/07/20 23:25 Dose: 30 ml Documented by: [id number] Sodium Chloride (Nss) 500 mls @ 999 mls/hr IV .Q31M MIKE Stop: 04/07/20 22:15 Last Infusion: 04/07/20 23:51 Dose: 0 mls/hr Documented by: [id number] Admin: 04/07/20 22:16 Dose: 999 mls/hr Documented by: [id number] Nitroglycerin (Nitroglycerin 2% Ointment 30gm Tube) 0.5 inch EXT NOW STA Stop: 04/07/20 21:43 Last Admin: 04/07/20 22:05 Dose: 0.5 inch Documented by: [id number] Potassium Chloride (Potassium Chloride 20 Meq Tabcr) 40 meq PO NOW STA Stop: 04/08/20 00:31 Last Admin: 04/08/20 00:45 Dose: 40 meq Documented by: [id number] Discharge Plan Visit Data Chief Complaint: Chest Pain ED Provider: Prabhu Dumont Discharge Problem: Substernal chest pain, Nausea & vomiting, Diarrhea, Fever Patient Disposition: Admitted As Inpatient Discharge Instructions Interventions: ED Discharge Assessment Last Done: 04/08/20 01:14
[2020-04-07 22:15] LABS: Basophils # (auto) 0.02 K/uL (0-0.2); Basophils % (auto) 0.2 %; Eosinophils # (auto) 0.01 K/uL (0-0.5); Eosinophils % (auto) 0.1 %; Hematocrit (blood only) 43.2 % (37-47); Hemoglobin 14.5 g/dL (12.0-16.0); Immature Granulocytes # (auto) 0.03 K/uL (0.00-0.02); Immature Granulocytes % (auto) 0.3 %; Lymphocytes # (auto) 1.62 K/uL (1.2-3.4); Lymphocytes % (auto) 13.9 %; Mean Corpuscular Hemoglobin 31.1 pg (25-34); Mean Corpuscular Hgb Conc 33.6 g/dL (32-36); Mean Corpuscular Volume 92.7 fL (80-100); Mean Platelet Volume 10.2 fL (7.4-10.4); Monocytes # (auto) 0.59 K/uL (0.11-0.59); Monocytes % (auto) 5.1 %; Neutrophils # (auto) 9.35 K/uL (1.4-6.5); Neutrophils % (auto) 80.4 %; Platelet Count 329 K/uL (130-400); RDW Coefficient of Variation 13.1 % (11.5-14.5); RDW Standard Deviation 44.4 fL (36.4-46.3); Red Blood Count 4.66 M/uL (4.2-5.4); White Blood Count 11.62 K/uL (4.8-10.8)
[2020-04-07 22:41] LABS: Albumin Globulin Ratio 0.8 (0.9-2); Albumin Level 3.7 gm/dl (3.4-5.0); BUN Creatinine Ratio 19.2 (10-20); Bilirubin,Total 0.4 mg/dl (0.2-1); Calcium 9.1 mg/dl (8.5-10.1); Creatinine Clr Calc Pharmacy 72.3 ml/min; Est GFR (African American) 82.9; Est GFR (Non-African American) 71.5; Globulin 4.5 gm/dl (2.5-4.0); Total Protein 8.2 gm/dl (6.4-8.2); Troponin I 0.02 ng/ml (0-0.045)
[2020-04-07] MEDS ORDERED: ALUMINUM/MAGNESIUM SUSP 30 ML UDC PO STA (23:12)
[2020-04-07 23:22] LABS: Partial Thromboplastin Ratio 0.9; Partial Thromboplastin Time 25.9 Seconds (21.0-31.0); Prothrombin Time 10.3 Seconds (9.0-12.0)
[2020-04-07 23:28] LABS: Potassium 3.4 mmol/L (3.5-5.1)
[2020-04-08 00:30] LABS: Appearance Urine Clear (Clear); Bacteria Urine Automated Negative (Negative); Bilirubin Urine Negative (Negative); Blood Urine 2+ (Negative); Color Urine Yellow; Glucose Urine UA Negative (Negative); Ketones Urine Negative (Negative); Leukocyte Esterase Urine Negative (Negative); Nitrite Urine Negative (Negative); Protein Urine 2+ (Negative); Specific Gravity Urine 1.011 (1.000-1.030); Urobilinogen Urine Negative (Negative); pH Urine 6.5 (4.5-7.5)
[2020-04-08] MEDS ORDERED: ACETAMINOPHEN 325 MG TAB PO PRN (00:30)
[2020-04-08] MEDS ORDERED: ALUMINUM/MAGNESIUM SUSP 30 ML UDC PO PRN (00:30)
[2020-04-08] MEDS ORDERED: MAGNESIUM HYDROXIDE SUSP 30 ML UDC PO PRN (00:30)
[2020-04-08] MEDS ORDERED: ONDANSETRON INJ 2 MG/ML 2 ML VIAL IV PRN (00:30)
[2020-04-08] MEDS ORDERED: POTASSIUM CHLORIDE 20 MEQ TABCR PO STA (00:30)
--- NOTE | 2020-04-08 01:04 | History & Physical Report ---
Date of Service April 08, 2020 Assessment & Plan (1) Cannabinoid hyperemesis syndrome: Her main symptoms are most consistent with cannabinoid hyperemesis syndrome- She be treated symptomatically with IV fluids, and antinausea medications. We will continue her other supportive medications. Present on Admission?: Yes (2) Substernal chest pain: Will rule out cardiac issues, but suspect symptoms are most likely related to issues with nausea and vomiting associated with the above diagnosis. Present on Admission?: Yes (3) Nausea & vomiting: See above Present on Admission?: Yes (4) CAD (coronary artery disease): CAD/hypertension- While in the emergency department, patient had an episode of decrease in blood pressure into the systolic mid 90 range. At that time, she had had Nitropaste placed by the ED, which was discontinued, and her Catapres patch was removed at this time as well. Her evening medications have been held, and when blood pressure normalizes, medications came back gradually be resumed. This episode is likely related to hypovolemia, and the patient will continue to be rehydrated with IV fluids. She will be mated to the telemetry unit for serial cardiac enzymes and cardiac rhythm monitoring. Present on Admission?: Yes (5) HTN (hypertension): See above Present on Admission?: Yes (6) Hyperlipidemia: Continue atorvastatin 80 mg daily at bedtime Present on Admission?: Yes History of Present Illness Chief Complaint: The patient presents to the emergency department with complaint of substernal chest pain, nausea vomiting, diarrhea and fever Primary Care Provider: Teena Killian DO The patient is a 55-year-old female with a past medical history including vitamin D deficiency, hypercalcemia, hypophosphatemia, hypokalemia, hypertensive emergency, nausea vomiting, abdominal pain, PRES, carpal tunnel syndrome, gastritis, non-STEMI, carotid stenosis, CAD, emphysema, multiple thyroid nodules, hyperlipidemia, diverticulosis, demyelinating disorder, cervical degenerative disc disease, anxiety, history of TIA, renal artery stenosis, chronic hypertension and marijuana dependence. Her most recent admission for similar symptoms was 02/13-02/15/2020. She did undergo COVID-19 testing in the emergency department which was negative today. Allergies Allergy/AdvReac Type Severity Reaction Status Date / Time napoles Allergy Intermediate Hives Verified 04/07/20 23:05 doxycycline Allergy Intermediate hives and Verified 04/07/20 23:05 vomitting Iodinated Contrast Media Allergy Intermediate GIANT Verified 04/07/20 23:05 HIVES , VOMITTING, BODY FEELS HOT loperamide Allergy Intermediate Hives and Verified 04/07/20 23:05 vomiting meperidine Allergy Intermediate HIVES, Verified 04/07/20 23:05 VOMITING prochlorperazine Allergy Intermediate N/V, Verified 04/07/20 23:05 ITCHINESS strawberry Allergy Intermediate HIVES Verified 04/07/20 23:05 tomato Allergy Intermediate HIVES Verified 04/07/20 23:05 iodine Allergy . Verified 04/07/20 23:05 latex AdvReac Mild RASH Verified 04/07/20 23:05 Home Medications Home Medications Medication Instructions Recorded Confirmed Type multivitamin 1 tab PO QAM 12/16/18 04/07/20 History losartan [Cozaar] 100 mg PO QAM 07/17/19 04/07/20 History metoprolol succinate [Toprol XL] 100 mg PO BID 07/17/19 04/07/20 History promethazine 25 mg PO Q6H PRN 07/17/19 04/07/20 History clonidine 0.1 mg/24 hr weekly 1 patch TOPICAL WK #4 ea 08/05/19 04/07/20 Rx transdermal patch ondansetron 4 mg disintegrating 4 mg PO Q6H PRN #30 tab 10/18/19 04/07/20 Rx tablet clopidogrel 75 mg tablet 75 mg PO QAM #90 tab 01/04/20 04/07/20 Rx amlodipine 5 mg tablet 5 mg PO DAILY #30 tab 02/15/20 04/07/20 Rx sertraline 100 mg tablet 100 mg PO HS #90 tab 02/29/20 04/07/20 Rx atorvastatin 80 mg tablet 80 mg PO HS #90 tab 04/04/20 04/07/20 Rx Past Med/Surg History Medical History (Updated 04/07/20 @ 21:45 by Prabhu Dumont MD) Acute UTI Anxiety disorder CAD (coronary artery disease) Mild-moderate non-obstructive Carotid stenosis < 50% stenosis B/L per US 12/16/18 Cervical disc disorder Cervical radiculopathy Chronic hypertension Congestive heart failure, acute 06/2017, admitted [facility]. Ruled 2/2 Takasubo CM. Degenerative disc disease, cervical Diverticulitis Diverticulosis Gastritis Grief reaction Hematuria History of diverticulitis of colon History of gastritis History of hypotension History of myocardial infarction HTN (hypertension) Hx-TIA (transient ischemic attack) Hypercalcemia Hyperlipidemia Hypertension Kidney infection CURRENT , RIGHT (ED [facility] LAST WEEK). JUST FINISHED ABX. X4 INFECTION OVER LAST 2 YRS Marijuana dependence Multiple thyroid nodules NSTEMI (non-ST elevated myocardial infarction) 2017 [facility]. Cath performed showed mild to moderate non-obstructive CAD. Pulmonary emphysema Renal artery stenosis Takotsubo cardiomyopathy 2017. Admitted [facility], full cardiac workup including cath. EF at the time 40%, now resolved to 60-65% on echo 2019. Transient cerebrovascular ischemia Vitamin D deficiency Surgical History H/O cervical spine surgery ACDF C4-7 Dr. [place] History of cardiac cath 5-6 YR AGO - [place] - NO STENTS (per pt report, this cath not noted in cardiology notes) 2017, NSTEMI. NO INTERVENTION. History of hernia surgery History of hysterectomy History of ovarian cystectomy S/P cervical discectomy Family History Father Family history of stomach cancer Stroke Myocardial infarction Malignant neoplasm of esophagus Stomach cancer Uncle Family history of cancer FAMILY HISTORY OF CANCER - UNCLE - VOCAL CORDS FAMILY HISTORY OF CANCER - AUNT - ? KIND Throat cancer Grandmother (Maternal) Family history of breast cancer Family history of bone cancer Cancer bone Breast cancer Bone cancer Grandmother Bone cancer Other No pertinent family history Denies family history of Colon cancer Ovarian cancer Prostate cancer Crohn's disease IBD (inflammatory bowel disease) Social History Smoking Status: Former smoker packs per day: 2; Second Hand Exposure: Yes; Do You Dip or Chew Tobacco: No; Hx Alcohol Use: No Hx Substance Use: Yes Last Used Substance: Days (ago) Last Used Substance Other:: 02/09/20 Preferred Language: Kyrgyz Communication Ability: Effective Visual Impairment: Limited Hearing Ability: Normal Wood Panel Inspector Required: No Beliefs That Will Affect Care: None marital status: Life Partner Current Living Situation: Spouse current occupational status: employed current occupation: [employer] Feels Safe at Home: Yes Safety Concerns: Feels Safe At This Time Childhood Exposure to Second-Hand Smoke: Yes caffeine: Yes (1 cup of coffee) during the past year weight has: other Dental Care, Regularly: No Physical Activity Frequency: Daily Physical Activity Frequency Comment: walking Seatbelt Use: always Sunscreen Use: Yes Review of Systems Review of Systems: The patient denies chest pain, palpitations, shortness of breath, dyspnea on exertion, cough, lower extremity swelling, blood in urine or stool, dysuria, urinary frequency or urgency, headache, memory loss, loss of consciousness, rash, abnormal bruising or bleeding, imbalance, focal weakness, numbness or tingling in arms or legs, neck pain, or night sweats. The review of systems is otherwise negative other than for that already noted above, and at least 10 systems have been reviewed. Physical Exam Physical Exam: The patient is awake, alert and oriented 3, normocephalic and atraumatic, lying in bed and in no acute distress. HEENT--PERRL, EOMI, mucous membranes and oropharynx dry. Neck--supple. No JVD. No bruits. Thyroid normal, trachea midline, no adenopathy. Heart--normal S1 and S2. No murmurs, rubs or gallops. Lungs--clear bilaterally, no respiratory distress, no accessory muscle use. Abdomen--normal bowel sounds and soft. Nontender. Nondistended. Extremities--no cyanosis or clubbing. No edema. Dermatologic--normal skin turgor, normal color, no abnormal lymph nodes, no rash. Neurologic--cranial nerves II through XII grossly intact. Rheumatologic--normal range of motion. Psychiatric--normal affect. Results & Data Results & Data ([facility]) Vital Signs (Past 12 Hours) Vital Signs Temp Pulse Resp BP Pulse Ox 04/08/20 00:05 83 18 96/57 L 95 04/08/20 00:01 82 18 93 04/08/20 00:00 85 19 90/59 L 93 04/07/20 23:25 91 H 18 159/100 H 96 04/07/20 23:20 81 18 166/100 H 96 04/07/20 23:15 81 18 170/101 H 95 04/07/20 23:10 79 18 159/102 H 96 04/07/20 23:05 75 18 166/94 H 95 04/07/20 23:00 79 18 159/97 H 95 04/07/20 22:55 76 18 162/90 H 95 04/07/20 22:50 80 18 160/92 H 92 04/07/20 22:45 82 18 158/97 H 94 04/07/20 22:40 83 18 166/114 H 96 04/07/20 22:35 81 18 160/104 H 96 04/07/20 22:30 82 18 161/113 H 96 04/07/20 22:25 87 18 164/98 H 97 04/07/20 22:20 80 18 173/106 H 96 04/07/20 22:15 88 18 174/111 H 97 04/07/20 22:10 80 18 178/118 H 96 04/07/20 22:05 83 18 174/106 H 96 04/07/20 22:00 81 18 166/108 H 97 04/07/20 21:59 80 18 160/104 H 97 04/07/20 21:30 82 18 156/92 H 96 04/07/20 21:24 100.2 F H 80 18 165/97 H 95 Laboratory Results Laboratory Results WBC 11.62 K/uL (4.8-10.8) H 04/07/20 22:03 RBC 4.66 M/uL (4.2-5.4) 04/07/20 22:03 Hgb 14.5 g/dL (12.0-16.0) 04/07/20 22:03 Hct 43.2 % (37-47) 04/07/20 22:03 MCV 92.7 fL (80-100) 04/07/20 22:03 MCH 31.1 pg (25-34) 04/07/20 22:03 MCHC 33.6 g/dL (32-36) 04/07/20 22:03 RDW Std Deviation 44.4 fL (36.4-46.3) 04/07/20 22:03 RDW Coeff of Jose Luis 13.1 % (11.5-14.5) 04/07/20 22:03 Plt Count 329 K/uL (130-400) 04/07/20 22:03 MPV 10.2 fL (7.4-10.4) 04/07/20 22:03 Immature Gran % (Auto) 0.3 % 04/07/20 22:03 Neut % (Auto) 80.4 % 04/07/20 22:03 Lymph % (Auto) 13.9 % 04/07/20 22:03 Gregory % (Auto) 5.1 % 04/07/20 22:03 Eos % (Auto) 0.1 % 04/07/20 22:03 Baso % (Auto) 0.2 % 04/07/20 22:03 Neut # (Auto) 9.35 K/uL (1.4-6.5) H 04/07/20 22:03 Lymph # (Auto) 1.62 K/uL (1.2-3.4) 04/07/20 22:03 Gregory # (Auto) 0.59 K/uL (0.11-0.59) 04/07/20 22:03 Eos # (Auto) 0.01 K/uL (0-0.5) 04/07/20 22:03 Baso # (Auto) 0.02 K/uL (0-0.2) 04/07/20 22:03 Immature Gran # (Auto) 0.03 K/uL (0.00-0.02) H 04/07/20 22:03 PT 10.3 Seconds (9.0-12.0) 04/07/20 22:57 INR 1.0 (0.9-1.1) 04/07/20 22:57 APTT 25.9 Seconds (21.0-31.0) 04/07/20 22:57 PTT Ratio 0.9 04/07/20 22:57 Sodium 137 mmol/L (136-145) 04/07/20 22:03 Potassium 3.4 mmol/L (3.5-5.1) L 04/07/20 22:57 Chloride 105 mmol/L (98-107) 04/07/20 22:03 Carbon Dioxide 22 mmol/L (21-32) 04/07/20 22:03 Anion Gap 10.0 (3-11) 04/07/20 22:03 BUN 17 mg/dl (7-18) 04/07/20 22:03 Creatinine 0.91 mg/dl (0.6-1.2) 04/07/20 22:03 Est Cr Clr Drug Dosing 72.3 ml/min 04/07/20 22:03 Est GFR ( Amer) 82.9 04/07/20 22:03 Est GFR (Non-Af Amer) 71.5 04/07/20 22:03 BUN/Creatinine Ratio 19.2 (10-20) 04/07/20 22:03 Glucose 130 mg/dl (70-99) H 04/07/20 22:03 Calcium 9.1 mg/dl (8.5-10.1) 04/07/20 22:03 Total Bilirubin 0.4 mg/dl (0.2-1) 04/07/20 22:03 AST 14 U/L (15-37) L 04/07/20 22:57 ALT 21 U/L (12-78) 04/07/20 22:03 Alkaline Phosphatase 83 U/L (45-117) 04/07/20 22:03 Troponin I 0.036 ng/ml (0-0.045) 04/08/20 01:05 Total Protein 8.2 gm/dl (6.4-8.2) 04/07/20 22:03 Albumin 3.7 gm/dl (3.4-5.0) 04/07/20 22:03 Globulin 4.5 gm/dl (2.5-4.0) H 04/07/20 22:03 Albumin/Globulin Ratio 0.8 (0.9-2) L 04/07/20 22:03 Lipase 101 U/L (73-393) 04/07/20 22:03 Urine Color Yellow 04/07/20 23:35 Urine Appearance Clear (Clear) 04/07/20 23:35 Urine pH 6.5 (4.5-7.5) 04/07/20 23:[address] [place] 1.011 (1.000-1.030) 04/07/20 23:35 Urine Protein 2+ (Negative) H 04/07/20 23:35 Urine Glucose (UA) Negative (Negative) 04/07/20 23:35 Urine Ketones Negative (Negative) 04/07/20 23:35 Urine Blood 2+ (Negative) H 04/07/20 23:35 Urine Nitrite Negative (Negative) 04/07/20 23:35 Urine Bilirubin Negative (Negative) 04/07/20 23:35 Urine Urobilinogen Negative (Negative) 04/07/20 23:35 Ur Leukocyte Esterase Negative (Negative) 04/07/20 23:35 Urine WBC (Auto) 1-5 /hpf (0-5) 04/07/20 23:35 Urine RBC (Auto) 10-30 /hpf (0-4) H 04/07/20 23:35 U Hyaline Cast (Auto) 1-5 /lpf (0-5) 04/07/20 23:35 U Epithel Cells (Auto) 5-10 /lpf (0-5) H 04/07/20 23:35 Urine Bacteria (Auto) Negative (Negative) 04/07/20 23:35 Urine Opiates Screen Neg (Neg) 04/07/20 23:35 Ur Methadone, Qual Neg (Neg) 04/07/20 23:35 Urine Barbiturates Neg (Neg) 04/07/20 23:35 Ur Phencyclidine (PCP) Neg (Neg) 04/07/20 23:35 U Amphetamin/Meth Scrn Neg (Neg) 04/07/20 23:35 MDMA (Ecstasy) Screen Neg (Neg) 04/07/20 23:35 U Benzodiazepines Scrn Neg (Neg) 04/07/20 23:35 Ur Cocaine Metabolite Neg (Neg) 04/07/20 23:35 U Marijuana (THC) Screen Pos (Neg) H 04/07/20 23:35 COVID-19 Eval Order Covid19 Done at [facility] 04/07/20 22:03 COVID-19 PCR NEGATIVE (Negative) 04/07/20 22:03 None Code Status & VTE Plan Code Status Full code VTE Prophylaxis Plan VTE Prophylaxis will be ordered: Yes PG Care Time/CCT Total # of Minutes Spent Total Time Spent with Patient: Total time spent is greater than 50% in coordination of care (as documented) at patient's floor/unit and/or counseling patient: Coding Level of Care Code 58641 OBS Care - Level 3 Diagnoses Cannabinoid hyperemesis syndrome F12.988 Substernal chest pain R07.2 Nausea & vomiting R11.2 CAD (coronary artery disease) I25.10 HTN (hypertension) I10 Hyperlipidemia E78.5
[2020-04-08 01:12] LABS: Amphetamines+Metham, Urine Neg (Neg); Barbiturates, Urine Neg (Neg); Benzodiazepine, Urine Neg (Neg); Cocaine, Urine Neg (Neg); MDMA (Ecstacy), Urine Neg (Neg); Methadone, Urine Neg (Neg); Opiate, Urine Neg (Neg); Phencyclidine, Urine Neg (Neg)
[2020-04-08] MEDS: NSS + 20MEQ KCL 20 MEQ/1,000 ML BAG IV SCH ×2 (03:05→12:25)
[2020-04-08 08:33] LABS: Basophils # (auto) 0.03 K/uL (0-0.2); Basophils % (auto) 0.3 %; Eosinophils # (auto) 0.03 K/uL (0-0.5); Eosinophils % (auto) 0.3 %; Hematocrit (blood only) 36.6 % (37-47); Hemoglobin 12.1 g/dL (12.0-16.0); Immature Granulocytes # (auto) 0.03 K/uL (0.00-0.02); Immature Granulocytes % (auto) 0.3 %; Lymphocytes # (auto) 2.94 K/uL (1.2-3.4); Mean Corpuscular Hemoglobin 30.6 pg (25-34); Mean Corpuscular Hgb Conc 33.1 g/dL (32-36); Mean Corpuscular Volume 92.4 fL (80-100); Mean Platelet Volume 9.8 fL (7.4-10.4); Monocytes # (auto) 0.96 K/uL (0.11-0.59); Monocytes % (auto) 9.1 %; Neutrophils # (auto) 6.52 K/uL (1.4-6.5); Platelet Count 281 K/uL (130-400); RDW Coefficient of Variation 13.1 % (11.5-14.5); Red Blood Count 3.96 M/uL (4.2-5.4); White Blood Count 10.51 K/uL (4.8-10.8)
[2020-04-08 08:43] LABS: Prothrombin Time 10.4 Seconds (9.0-12.0)
[2020-04-08] MEDS ORDERED: CLOPIDOGREL BISULFATE 75 MG TAB PO SCH (09:00)
[2020-04-08] MEDS ORDERED: FAMOTIDINE 20 MG in SYRINGE 3 ML IV SCH (09:00)
--- NOTE | 2020-04-08 09:14 | XRay Report ---
XR chest 1V portable HISTORY: 55 years-old Female Chest Pain acute atypical chest pain COMPARISON: Acute abdominal series radiographs 02/14/2020 TECHNIQUE: Portable AP view of the chest FINDINGS: Cardiomediastinal and hilar silhouettes are within normal limits. No pneumothorax, pleural effusion, airspace consolidation or overt pulmonary edema. Healed remote fracture of the posterolateral right s eventh rib. Degenerative changes of the shoulders and spine. Fusion hardware of the cervical spine. IMPRESSION: No acute process. ACT 112: Negative or not required by law. The above report was generated using voice recognition software. It may contain grammatical, syntax o r spelling errors. Electronically signed by: Anam Jimenez M.D. 04/08/2020 9:13 AM
[2020-04-08 09:15] LABS: Albumin Level 3.2 gm/dl (3.4-5.0); BUN Creatinine Ratio 17.8 (10-20); Calcium 8.7 mg/dl (8.5-10.1); Creatinine Clr Calc Pharmacy 71.7 ml/min; Est GFR (African American) 91.3; Est GFR (Non-African American) 78.8; Potassium 3.7 mmol/L (3.5-5.1)
[2020-04-08 09:23] LABS: Albumin Globulin Ratio 0.9 (0.9-2); Bilirubin,Total 0.3 mg/dl (0.2-1); Globulin 3.5 gm/dl (2.5-4.0); Total Protein 6.7 gm/dl (6.4-8.2)
[2020-04-08 11:43] VITALS: PULSE 65; TEMP 98.6; O2SAT 95
--- NOTE | 2020-04-08 12:39 | Discharge Summary ---
Date of Service April 08, 2020 Admission HPI Per Admitting Provider The patient is a 55-year-old female with a past medical history including vitamin D deficiency, hypercalcemia, hypophosphatemia, hypokalemia, hypertensive emergency, nausea vomiting, abdominal pain, PRES, carpal tunnel syndrome, gastritis, non-STEMI, carotid stenosis, CAD, emphysema, multiple thyroid nodules, hyperlipidemia, diverticulosis, demyelinating disorder, cervical degenerative disc disease, anxiety, history of TIA, renal artery stenosis, chronic hypertension and marijuana dependence. Her most recent admission for similar symptoms was 02/13-02/15/2020. She did undergo COVID-19 testing in the emergency department which was negative today. Principal Diagnosis Pt states she feels at her usual. No further n/v. 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 This has also resolved with the resolution of n/v. She ate breakfast without issue. She did eat some of her lunch, but did not finish the tray as she doesn't usually have breakfast and lunch so close together and felt full. Pt denies fever, SOB, chest pain, abd pain, c/d, LE pain or swelling. Pt is asking for d/c to home. Discharge Exam Constitutional WD/WN, vitals as above Eyes normal visual pradhan by confrontation and + anicteric sclerae Neck normal visual inspection and trachea midline Respiratory normal respiratory effort, lungs clear to auscultation Cardiovascular Rate/Rhythm: regular rate and regular rhythm Gastrointestinal (Abdomen) Inspection/Auscultation: abdomen not distended Percussion/Palpation: abdomen soft; abdomen nontender Musculoskeletal Head/Neck/Chest: normocephalic and head atraumatic Skin no rashes, warm and dry Neurologic awake; not confused Speech / Cognition: normal speech Psychiatric A+Ox3, euthymic affect Discharge Data Allergies Allergy/AdvReac Type Severity Reaction Status Date / Time napoles Allergy Intermediate Hives Verified 04/07/20 23:05 doxycycline Allergy Intermediate hives and Verified 04/07/20 23:05 vomitting Iodinated Contrast Media Allergy Intermediate GIANT Verified 04/07/20 23:05 HIVES , VOMITTING, BODY FEELS HOT loperamide Allergy Intermediate Hives and Verified 04/07/20 23:05 vomiting meperidine Allergy Intermediate HIVES, Verified 09/04/20 23:05 VOMITING prochlorperazine Allergy Intermediate N/V, Verified 04/07/20 23:05 ITCHINESS strawberry Allergy Intermediate HIVES Verified 04/07/20 23:05 tomato Allergy Intermediate HIVES Verified 04/07/20 23:05 iodine Allergy . Verified 04/07/20 23:05 latex AdvReac Mild RASH Verified 04/07/20 23:05 Consultations 04/07/20 23:05 ED Decision to Admit Stat 04/08/20 00:34 Consult Case Management - Discharge Planning Routine Hospital Course (1) Cannabinoid hyperemesis syndrome: Her main symptoms are most consistent with cannabinoid hyperemesis syndrome- sx resolved overnight with IVF, IV antiemetics, which is the same as her last admission Utox + for THC, neg for other concerns UA WNL (2) Substernal chest pain: Most likely related to issues with nausea and vomiting associated with the above diagnosis Trop neg x3 CXR neg for acute EKG NSR (3) Nausea & vomiting: See above (4) CAD (coronary artery disease): CAD/hypertension- While in the emergency department, patient had an episode of decrease in blood pressure into the systolic mid 90 range. At that time, she had had Nitropaste placed by the ED, which was discontinued, and her Catapres patch was removed at this time as well. Her evening medications were held This episode is likely related to hypovolemia, and the patient will continue to be rehydrated with IV fluids. BP is now elevated, can resume home meds (5) HTN (hypertension): See above (6) Hyperlipidemia: Continue atorvastatin 80 mg daily at bedtime Total Time Total Time Spent Total Time Spent (In Minutes): >30 Total Time Includes: Examination of the Patient, Discharge Planning, Medication Reconciliation and Other Discharge Plan Discharge Items Patient Disposition: Home - Self-Care Reason For Visit: FEBRILE ILLNESS, SEPSIS Discharge Diagnosis: Chest pain, nausea, vomiting Activity: Resume your previous activity Non-emergency contact: Primary Care Provider Call non-emergency contact if: you have any medication questions and your symptoms worsen Follow-up/Referrals: Teena Killian DO [Primary Care Provider] - Diet: Heart Healthy Addtl Attending Provider Instructions: You should be seen by your primary care doctor in the next 1-2 weeks Pending Studies at Discharge: No Stand-Alone Forms: My [facility], Smoking Cessation Medications and DC Order Prescriptions: Continued ondansetron 4 mg tablet,disintegrating 4 mg PO Q6H PRN (Reason: Nausea And Vomiting) Qty: 30 RF: 0 clopidogrel [Plavix] 75 mg tablet 75 mg PO QAM Qty: 90 RF: 0 amlodipine 5 mg tablet 5 mg PO DAILY Qty: 30 RF: 2 sertraline [Zoloft] 100 mg tablet 100 mg PO HS Qty: 90 RF: 1 atorvastatin 80 mg tablet 80 mg PO HS Qty: 90 RF: 3 clonidine [[id number]] 0.1 mg/24 hr patch weekly 1 patch topical WK Qty: 4 RF: 4 multivitamin Tablet 1 tab PO QAM RF: 0 metoprolol succinate [Toprol XL] 100 mg tablet extended release 24 hr 100 mg PO BID RF: 0 promethazine 25 mg tablet 25 mg PO Q6H PRN (Reason: Nausea And Vomiting) RF: 0 losartan [Cozaar] 100 mg tablet 100 mg PO QAM RF: 0 Discharge Orders: Discharge Order (Routine); Ordered 04/08/20 Ordered By: Mary Betancourt/Other Patient Handouts: Understanding Marijuana Abuse Admission Data Admit Date/Time: 04/08/20 00:31 Attending Provider: Mary Funk Admit Provider: Aron Drake Primary Care Provider: Teena Killian Other Providers: Aron Drake Other Interventions: Discharge Summary Assessment (RN) Last Done: 04/08/20 13:33 Coding Level of Care Code D/C Day Management >30 mins Diagnoses Cannabinoid hyperemesis syndrome F12.988 Substernal chest pain R07.2 Nausea & vomiting R11.2 CAD (coronary artery disease) I25.10 HTN (hypertension) I10 Hyperlipidemia E78.5
[2020-04-08 13:35] VITALS: BP 134/88
[2020-04-08] MEDS ORDERED: ATORVASTATIN 40 MG TAB PO SCH (21:00)
[2020-04-08] MEDS ORDERED: SERTRALINE HCL 100 MG TABLET PO SCH (21:00)
--- NOTE | 2020-04-09 04:59 | Electrocardiogram Report ---
Test Reason : Blood Pressure : / mmHG Vent. Rate : 079 BPM Atrial Rate : 079 BPM P-R Int : 192 ms QRS Dur : 088 ms QT Int : 408 ms P-R-T Axes : 060 -15 057 degrees QTc Int : 467 ms Normal sinus rhythm Possible Left atrial enlargement Borderline ECG When compared with ECG of 14-FEB-2020 09:18, RSR' pattern in V1 is no longer Present Confirmed by Quinten Sanchez ([id number]) on 04/09/2020 4:59:15 AM Referred By: REFERRED SELF Confirmed By:Quinten Sanchez
[2020-04-09 23:41] LABS: Marijuana Quant, GCMS Urine 226 ng/mL (<5)
== END 2020-04-08 14:18 | disposition home or self-care (01) ==
LOC: ED 21:06 → 2S 04-08 00:31 → INTOOBSV 04-08 00:31 → SUATTDRO 04-08 00:31 → 2S 04-08 01:14

== ENCOUNTER 2020-04-09 09:36 | Observation (INO) ==
[2020-04-09] MEDS ORDERED: ONDANSETRON INJ 2 MG/ML 2 ML VIAL ONE (10:10)
[2020-04-09] MEDS ORDERED: SODIUM CHLORIDE 0.9% 1000ML 1,000 ML IV ONE (10:43)
[2020-04-09] MEDS ORDERED: GI COCKTAIL ED USE PO ONE (10:43)
[2020-04-09] MEDS ORDERED: LABETALOL HCL IV 5 MG/ML 20ML IV STA (10:48)
--- NOTE | 2020-04-09 10:48 | Emergency Department Note ---
Impression & Plan Vomiting, Chest pain, Hypertensive urgency, Hematemesis ED Provider Note NAME: ONEL MONTOYA AGE: 55 SEX: F : 1965 ARRIVES VIA: Walk-In INFORMANT: Patient ED PROVIDER(S): Souleymane Winn DO CHIEF COMPLAINT: Chest pain, nausea, vomiting HPI: Patient is a 55-year-old female who presents the ER for nausea and vomiting. Patient has extensive history of previous TIA, press, marijuana abuse, hyperemesis syndrome, seizure, and STEMI and CHF. She notes that she was just discharged in the past 24 hours from [facility]. She woke up this morning and started having nausea and vomiting again. She is unable to keep anything down. She did get her blood pressure medications down this morning. She notes that she has been unable to keep anything down since then. Blood pressures have been significantly elevated. She has vomited at least 6-7 times. She has a midsternal burning which she notes is fairly common when she gets these episodes of vomiting. She has been vomiting up blood as well. Denies any blood in the stool or dark tarry stools. She notes she had a little bit of blood on the tissue paper when she wiped this morning. She is taking Plavix. ROS: See above HPI for pertinent positives & negatives. A total of 10 systems reviewed and were otherwise negative. PAST MEDICAL HISTORY:See Below PAST SURGICAL HISTORY:See Below FAMILY HISTORY:See Below SOCIAL HISTORY:See Below HOME MEDICATIONS:See Below ALLERGIES:See Below VITALS:See Below PHYSICAL EXAMINATION: GENERAL: Sitting up in bed, alert, chronically ill-appearing, disheveled, dry heaving EYE EXAM: normal conjunctiva. OROPHARYNX: no exudate, no erythema, lips, buccal mucosa, and tongue normal and mucous membranes are dry NECK: supple, no nuchal rigidity, no adenopathy, non-tender LUNGS: Clear to auscultation. Normal chest wall mechanics HEART: no murmurs, S1 normal and S2 normal ABDOMEN: abdomen soft, non-tender, normo-active bowel sounds, no masses, no rebound or guarding. BACK: Back is symmetrical on inspection and there is no deformity, no midline tenderness, no CVA tenderness. SKIN: no rashes and no bruising UPPER EXTREMITIES: upper extremities are grossly normal. LOWER EXTREMITIES: No pitting edema. NEURO EXAM: Normal sensorium, cranial nerves II-XII grossly intact, normal speech, no gross weakness of arms, no gross weakness of legs. MEDICAL DECISION MAKING: Patient is a 55-year-old female who was just recently discharged presents the ER for persistent vomiting elevated blood pressures and hematemesis. She has had multiple episodes with coffee-ground blood present. IV was established blood was obtained. Labs show mild leukocytosis 11,000. No significant anemia. BMP with LFTs bilirubin was unremarkable. Troponin was detectable but not positive. Lipase was normal. UA was clean. She has absolutely no abdominal pain. Chest x-ray was unremarkable. She was given IV fluids, IV labetalol followed by IV hydralazine. She declined the nitro paste. Pressures did trend down to 180s. She did feel better. She given Zofran and fluids. She was updated bedside discussed with hospitalist for further evaluation and admission. Her EKG was nondiagnostic. Her chest pain did go away with a GI cocktail. She is also on a Protonix drip and bolus due to the coffee-ground emesis which I favor secondary to a Diana-Briones tear. Of note upon arrival patient's was extremely agitated and angry as they have been coming here for 4 years and been unable to come up with a diagnosis. He was yelling at triage staff as well as nursing staff and Bpod. I informed him that we will treat her in the ER as best as we can as we always do. Triage Nursing notes reviewed. Prior medical records reviewed Vital Signs: reviewed and remarkable for HTN Differential diagnosis: Differential diagnoses includes but is not limited to gastritis, peptic ulcer disease, GERD, gallbladder disease, pancreatitis, small bowel obstruction, acute coronary syndrome, pericarditis, ischemic bowel, irritable bowel disease, irritable bowel syndrome, appendicitis, diverticulitis, malignancy, hernia, urinary tract infection, torsion, perforation, trauma, infectious. ER treatment provided: See below Diagnostics interpreted by me: ECG: Sinus rhythm rate 72 Poor baseline PVCs Normal QTC Peak T waves in the lateral leads Cardiac Monitoring: An order was placed for continuous cardiac monitoring. The monitor shows a rate of 71 with sinus rhythm. Laboratory studies: As stated above and show below. Imaging studies: See below Consultation(s): Discussed with the hospitalist for further evaluation ED COURSE: Procedures: none Critical Care: I have personally spent 32 minutes of critical care time in the direct management of this patient. This includes bedside care, interpretation of diagnostic studies, and testing, discussion with consultants, patient, and family members, and other required patient management activities. This 32 minutes is in excess of all separately billable procedures. Past Med/Surg History Medical History (Updated 04/09/20 @ 17:11 by Souleymane Winn DO) Acute UTI Anxiety disorder CAD (coronary artery disease) Mild-moderate non-obstructive Carotid stenosis < 50% stenosis B/L per US 12/16/18 Cervical disc disorder Cervical radiculopathy Chronic hypertension Congestive heart failure, acute 06/2017, admitted [facility]. Ruled / Takasubo CM. Degenerative disc disease, cervical Diverticulitis Diverticulosis Gastritis Grief reaction Hematuria History of diverticulitis of colon History of gastritis History of hypotension History of myocardial infarction HTN (hypertension) Hx-TIA (transient ischemic attack) Hypercalcemia Hyperlipidemia Hypertension Kidney infection CURRENT , RIGHT (ED [facility] LAST WEEK). JUST FINISHED ABX. X4 INFECTION OVER LAST 2 YRS Marijuana dependence Multiple thyroid nodules NSTEMI (non-ST elevated myocardial infarction) 2017 [facility]. Cath performed showed mild to moderate non-obstructive CAD. Pulmonary emphysema Renal artery stenosis Takotsubo cardiomyopathy 2017. Admitted [facility], full cardiac workup including cath. EF at the time 40%, now resolved to 60-65% on echo 2019. Transient cerebrovascular ischemia Vitamin D deficiency Surgical History H/O cervical spine surgery ACDF C4-7 Dr. [place] History of cardiac cath 5-6 YR AGO - [place] - NO STENTS (per pt report, this cath not noted in cardiology notes) 2017, NSTEMI. NO INTERVENTION. History of hernia surgery History of hysterectomy History of ovarian cystectomy S/P cervical discectomy Family History Father Family history of stomach cancer Stroke Myocardial infarction Malignant neoplasm of esophagus Stomach cancer Uncle Family history of cancer FAMILY HISTORY OF CANCER - UNCLE - VOCAL CORDS FAMILY HISTORY OF CANCER - AUNT - ? KIND Throat cancer Grandmother (Maternal) Family history of breast cancer Family history of bone cancer Cancer bone Breast cancer Bone cancer Grandmother Bone cancer Other No pertinent family history Denies family history of Colon cancer Ovarian cancer Prostate cancer Crohn's disease IBD (inflammatory bowel disease) Social History Smoking Status: Former smoker packs per day: 2; Second Hand Exposure: Yes; Hx Alcohol Use: No Hx Substance Use: Yes Last Used Substance: Days (ago) Last Used Substance Other:: 02/09/20 Preferred Language: Palauan Communication Ability: Effective Visual Impairment: Limited Hearing Ability: Normal Online Education Manager Required: No Beliefs That Will Affect Care: None marital status: Current Living Situation: Spouse current occupational status: employed 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 [employer] Feels Safe at Home: Yes Safety Concerns: Feels Safe At This Time Childhood Exposure to Second-Hand Smoke: Yes caffeine: Yes (1 cup of coffee) during the past year weight has: other Dental Care, Regularly: No Physical Activity Frequency: Daily Physical Activity Frequency Comment: walking Seatbelt Use: always Sunscreen Use: Yes Allergies Allergies Allergy/AdvReac Type Severity Reaction Status Date / Time napoles Allergy Intermediate Hives Verified 04/09/20 10:31 doxycycline Allergy Intermediate hives and Verified 04/09/20 10:31 vomitting Iodinated Contrast Media Allergy Intermediate GIANT Verified 04/09/20 10:31 HIVES , VOMITTING, BODY FEELS HOT loperamide Allergy Intermediate Hives and Verified 04/09/20 10:31 vomiting meperidine Allergy Intermediate HIVES, Verified 04/09/20 10:31 VOMITING prochlorperazine Allergy Intermediate N/V, Verified 04/09/20 10:31 ITCHINESS strawberry Allergy Intermediate HIVES Verified 04/09/20 10:31 tomato Allergy Intermediate HIVES Verified 04/09/20 10:31 iodine Allergy . Verified 04/09/20 10:31 latex AdvReac Mild RASH Verified 04/09/20 10:31 Home Meds Home Medications Medication Instructions Recorded Confirmed multivitamin 1 tab PO QAM 12/16/18 04/09/20 losartan [Cozaar] 100 mg PO QAM 07/17/19 04/09/20 metoprolol succinate [Toprol XL] 100 mg PO BID 07/17/19 04/09/20 promethazine 25 mg PO Q6H PRN 07/17/19 04/09/20 Previous Rx's Medication Instructions Recorded clonidine 0.1 mg/24 hr weekly 1 patch TOPICAL WK #4 ea 08/05/19 transdermal patch ondansetron 4 mg disintegrating 4 mg PO Q6H PRN #30 tab 10/18/19 tablet clopidogrel 75 mg tablet 75 mg PO QAM #90 tab 01/04/20 amlodipine 5 mg tablet 5 mg PO DAILY #30 tab 02/15/20 sertraline 100 mg tablet 100 mg PO HS #90 tab 02/29/20 atorvastatin 80 mg tablet 80 mg PO HS #90 tab 04/04/20 Results & Data (ED) Vital Signs Vital Signs - 24 hr 04/09/20 09:48 04/09/20 10:04 04/09/20 10:14 Temperature 36.7 C Temperature Source Oral Pulse Rate 90 74 79 Pulse Rhythm Regular Pulse Strength Normal Respiratory Rate 24 19 16 Respiratory Effort / Characteristics Non-Labored Spontaneous Respiratory Depth Normal Respiratory Pattern Regular Blood Pressure 219/114 H 228/128 H Blood Pressure Mean 149 170 Blood Pressure Position Sitting Pulse Oximetry 100 Oxygen Delivery Method Room Air Sepsis Recent Fever Within 48 Hours No Sepsis New/Unexplained Change in Mental Status N/A Sepsis Action Taken by Nursing No Action Required 04/09/20 10:23 04/09/20 10:30 04/09/20 10:31 Temperature Temperature Source Oral Pulse Rate 70 75 Pulse Rhythm Pulse Strength Respiratory Rate 15 14 Respiratory Effort / Characteristics Respiratory Depth Respiratory Pattern Blood Pressure 196/135 H Blood Pressure Mean 168 Blood Pressure Position Pulse Oximetry Oxygen Delivery Method Room Air Sepsis Recent Fever Within 48 Hours Sepsis New/Unexplained Change in Mental Status Sepsis Action Taken by Nursing 04/09/20 10:51 04/09/20 11:00 04/09/20 11:01 Temperature Temperature Source Pulse Rate 87 79 Pulse Rhythm Pulse Strength Respiratory Rate 25 H 10 L Respiratory Effort / Characteristics Respiratory Depth Respiratory Pattern Blood Pressure 224/149 H Blood Pressure Mean 171 Blood Pressure Position Pulse Oximetry 100 Oxygen Delivery Method Room Air Sepsis Recent Fever Within 48 Hours Sepsis New/Unexplained Change in Mental Status Sepsis Action Taken by Nursing 04/09/20 11:30 04/09/20 11:31 04/09/20 11:58 Temperature Temperature Source Pulse Rate 79 79 Pulse Rhythm Pulse Strength Respiratory Rate 11 L 10 L Respiratory Effort / Characteristics Respiratory Depth Respiratory Pattern Blood Pressure 204/132 H 201/118 H Blood Pressure Mean 154 143 Blood Pressure Position Pulse Oximetry Oxygen Delivery Method Sepsis Recent Fever Within 48 Hours Sepsis New/Unexplained Change in Mental Status Sepsis Action Taken by Nursing 04/09/20 12:21 04/09/20 12:30 04/09/20 12:31 Temperature Temperature Source Pulse Rate 78 Pulse Rhythm Pulse Strength Respiratory Rate 13 Respiratory Effort / Characteristics Respiratory Depth Respiratory Pattern Blood Pressure 193/117 H 185/127 H Blood Pressure Mean 155 136 Blood Pressure Position Pulse Oximetry Oxygen Delivery Method Sepsis Recent Fever Within 48 Hours Sepsis New/Unexplained Change in Mental Status Sepsis Action Taken by Nursing Laboratory Data Result diagrams: 04/09/20 16:10 04/09/20 10:10 Lab Results 04/09/20 04/09/20 04/09/20 Range/Units 10:00 10:10 10:10 WBC 11.43 H (4.8-10.8) K/uL RBC 4.67 (4.2-5.4) M/uL Hgb 14.6 (12.0-16.0) g/dL Hct 43.0 (37-47) % MCV 92.1 (80-100) fL MCH 31.3 (25-34) pg MCHC 34.0 (32-36) g/dL RDW Std Deviation 43.1 (36.4-46.3) fL RDW Coeff of Jose Luis 12.9 (11.5-14.5) % Plt Count 357 (130-400) K/uL MPV 10.1 (7.4-10.4) fL Immature Gran % (Auto) 0.3 % Neut % (Auto) 74.1 % Lymph % (Auto) 18.2 % Real % (Auto) 6.0 % Eos % (Auto) 1.0 % Baso % (Auto) 0.4 % Neut # (Auto) 8.46 H (1.4-6.5) K/uL Lymph # (Auto) 2.08 (1.2-3.4) K/uL Real # (Auto) 0.69 H (0.11-0.59) K/uL Eos # (Auto) 0.12 (0-0.5) K/uL Baso # (Auto) 0.05 (0-0.2) K/uL Immature Gran # (Auto) 0.03 H (0.00-0.02) K/uL Sodium 140 (136-145) mmol/L Potassium 3.9 (3.5-5.1) mmol/L Chloride 107 (98-107) mmol/L Carbon Dioxide 22 (21-32) mmol/L Anion Gap 11.0 (3-11) BUN 17 (7-18) mg/dl Creatinine 0.84 (0.6-1.2) mg/dl Est Cr Clr Drug Dosing Not Reportable Est GFR ( Amer) 91.3 Est GFR (Non-Af Amer) 78.8 BUN/Creatinine Ratio 20.3 H (10-20) Glucose 149 H (70-99) mg/dl Calcium 9.6 (8.5-10.1) mg/dl Total Bilirubin 0.5 (0.2-1) mg/dl AST 24 (15-37) U/L ALT 24 (12-78) U/L Alkaline Phosphatase 86 (45-117) U/L Troponin I (0-0.045) ng/ml Total Protein 8.3 H D (6.4-8.2) gm/dl Albumin 4.1 (3.4-5.0) gm/dl Globulin 4.2 H (2.5-4.0) gm/dl Albumin/Globulin Ratio 1.0 (0.9-2) Lipase 139 (73-393) U/L Specimen Hemolysis Urine Color Yellow Urine Appearance Clear (Clear) Urine pH 5.5 (4.5-7.5) Ur Specific Farrell 1.018 (1.000-1.030) Urine Protein 2+ H (Negative) Urine Glucose (UA) Negative (Negative) Urine Ketones Negative (Negative) Urine Blood 3+ H (Negative) Urine Nitrite Negative (Negative) Urine Bilirubin Negative (Negative) Urine Urobilinogen Negative (Negative) Ur Leukocyte Esterase Negative (Negative) Urine WBC (Auto) 1-5 (0-5) /hpf Urine RBC (Auto) 10-30 H (0-4) /hpf U Hyaline Cast (Auto) 0 (0-5) /lpf U Epithel Cells (Auto) 10-20 H (0-5) /lpf Urine Bacteria (Auto) Negative (Negative) 04/09/20 Range/Units 10:10 WBC (4.8-10.8) K/uL RBC (4.2-5.4) M/uL Hgb (12.0-16.0) g/dL Hct (37-47) % MCV (80-100) fL MCH (25-34) pg MCHC (32-36) g/dL RDW Std Deviation (36.4-46.3) fL RDW Coeff of Jose Luis (11.5-14.5) % Plt Count (130-400) K/uL MPV (7.4-10.4) fL Immature Gran % (Auto) % Neut % (Auto) % Lymph % (Auto) % Real % (Auto) % Eos % (Auto) % Baso % (Auto) % Neut # (Auto) (1.4-6.5) K/uL Lymph # (Auto) (1.2-3.4) K/uL Real # (Auto) (0.11-0.59) K/uL Eos # (Auto) (0-0.5) K/uL Baso # (Auto) (0-0.2) K/uL Immature Gran # (Auto) (0.00-0.02) K/uL Sodium (136-145) mmol/L Potassium (3.5-5.1) mmol/L Chloride (98-107) mmol/L Carbon Dioxide (21-32) mmol/L Anion Gap (3-11) BUN (7-18) mg/dl Creatinine (0.6-1.2) mg/dl Est Cr Clr Drug Dosing Est GFR ( Amer) Est GFR (Non-Af Amer) BUN/Creatinine Ratio (10-20) Glucose (70-99) mg/dl Calcium (8.5-10.1) mg/dl Total Bilirubin (0.2-1) mg/dl AST (15-37) U/L ALT (12-78) U/L Alkaline Phosphatase (45-117) U/L Troponin I 0.024 (0-0.045) ng/ml Total Protein (6.4-8.2) gm/dl Albumin (3.4-5.0) gm/dl Globulin (2.5-4.0) gm/dl Albumin/Globulin Ratio (0.9-2) Lipase (73-393) U/L Specimen Hemolysis Urine Color Urine Appearance (Clear) Urine pH (4.5-7.5) Ur Specific Farrell (1.000-1.030) Urine Protein (Negative) Urine Glucose (UA) (Negative) Urine Ketones (Negative) Urine Blood (Negative) Urine Nitrite (Negative) Urine Bilirubin (Negative) Urine Urobilinogen (Negative) Ur Leukocyte Esterase (Negative) Urine WBC (Auto) (0-5) /hpf Urine RBC (Auto) (0-4) /hpf U Hyaline Cast (Auto) (0-5) /lpf U Epithel Cells (Auto) (0-5) /lpf Urine Bacteria (Auto) (Negative) Administered Medications Capsaicin (Capsaicin Cr 0.075% 60 Gm Tube) 1 appln EXT QID MIKE Stop: 05/09/20 14:36 Last Admin: 04/09/20 16:20 Dose: Not Given Documented by: [id number] Hydralazine HCl (Hydralazine Hcl 20 Mg/Ml Vial) 10 mg IV Q4H PRN PRN Reason: sBP > 180 Stop: 05/09/20 14:36 Last Admin: 04/09/20 16:20 Dose: 10 mg Documented by: [id number] Pantoprazole Sodium 40 mg/ (Dextrose) 100 mls @ 20 mls/hr IV Q5H MIKE Stop: 05/09/20 11:05 Last Admin: 04/09/20 16:21 Dose: 8 mg/hr, 20 mls/hr Documented by: [id number] Infusion: 04/09/20 16:21 Dose: 8 mg/hr, 20 mls/hr Documented by: [id number] Admin: 04/09/20 11:27 Dose: 8 mg/hr, 20 mls/hr Documented by: [id number] Miscellaneous (Check Clonidine Patch Placement) 1 ea N/A QS [facility] Stop: 05/09/20 15:59 Last Admin: 04/09/20 16:20 Dose: 1 ea Documented by: [id number] Discontinued Medications Al Hydrox/Mg Hydrox/Simethicone (Gi Cocktail Ed Use) 1 dose PO ONE ONE Stop: 04/09/20 10:44 Last Admin: 04/09/20 10:59 Dose: 1 dose Documented by: [id number] Capsaicin (Capsaicin Cr 0.075% 60 Gm Tube) 1 appln EXT ONE STA Stop: 04/09/20 12:51 Last Admin: 04/09/20 13:08 Dose: 1 appln Documented by: [id number] Hydralazine HCl (Hydralazine Hcl 20 Mg/Ml Vial) 10 mg IV NOW STA Stop: 04/09/20 11:27 Last Admin: 04/09/20 11:31 Dose: 10 mg Documented by: [id number] Sodium Chloride (Nss 1000ml) 1,000 mls @ 999 mls/hr IV .Q1H1M ONE Stop: 04/09/20 11:43 Last Infusion: 04/09/20 12:00 Dose: 0 mls/hr Documented by: [id number] Admin: 04/09/20 10:59 Dose: 999 mls/hr Documented by: [id number] Pantoprazole Sodium (Protonix Bolus/Drip) 0 mls @ 1 mls/hr IV ONE STA Stop: 04/09/20 10:52 Last Admin: 04/09/20 12:41 Dose: Not Given Documented by: [id number] Pantoprazole Sodium 80 mg/ (Dextrose) 120 mls @ 400 mls/hr IV NOW ONE Stop: 04/09/20 11:08 Last Infusion: 04/09/20 11:45 Dose: 0 mls/hr Documented by: [id number] Admin: 04/09/20 11:27 Dose: 400 mls/hr Documented by: [id number] Lorazepam (Ativan) 0.25 mg in 0.5 mls @ 0.5 mls/min IV NOW STA Stop: 04/09/20 12:52 Last Admin: 04/09/20 13:08 Dose: 0.5 mls/min Documented by: [id number] Labetalol HCl (Labetalol Hcl Iv 5 Mg/Ml 20ml) 10 mg IV NOW STA Stop: 04/09/20 10:49 Last Admin: 04/09/20 10:58 Dose: 10 mg Documented by: [id number] Cosigned by: [id number] Nitroglycerin (Nitroglycerin 2% Ointment 30gm Tube) 1 inch EXT Q6H MIKE Stop: 05/09/20 12:14 Last Admin: 04/09/20 13:07 Dose: Not Given Documented by: [id number] Ondansetron HCl (Ondansetron Inj 2 Mg/Ml 2 Ml Vial) Confirm Administered Dose 4 mg .ROUTE .STK-MED ONE Stop: 04/09/20 10:11 Last Admin: 04/09/20 10:12 Dose: 4 mg Documented by: [id number] Discharge Plan Visit Data Chief Complaint: Hypertension Stated Complaint: HYPERTENSION,VOMITING,SWEATY ED Provider: Souleymane Winn Discharge Problem: Vomiting, Chest pain, Hypertensive urgency, Hematemesis Patient Disposition: Admitted As Inpatient Discharge Instructions Interventions: ED Discharge Assessment Last Done: 04/09/20 13:42 Discharge Problem: Vomiting Qualifiers: Vomiting type: unspecified Vomiting Intractability: non-intractable Nausea presence: with nausea Qualified Code(s): R11.2 - Nausea with vomiting, unspecified Chest pain Qualifiers: Chest pain type: unspecified Qualified Code(s): R07.9 - Chest pain, unspecified Hematemesis Qualifiers: Nausea presence: with nausea Qualified Code(s): K92.0 - Hematemesis
[2020-04-09] MEDS ORDERED: PANTOprazole 80 MG in DEXTROSE 5% 100 ML IV ONE (10:51)
[2020-04-09] MEDS ORDERED: PANTOPRAZOLE BOLUS/DRIP 1 EA IV STA (10:51)
[2020-04-09 10:56] LABS: Appearance Urine Clear (Clear); Bacteria Urine Automated Negative (Negative); Bilirubin Urine Negative (Negative); Blood Urine 3+ (Negative); Cast Urine Automated 0 /lpf (0-5); Color Urine Yellow; Glucose Urine UA Negative (Negative); Ketones Urine Negative (Negative); Leukocyte Esterase Urine Negative (Negative); Nitrite Urine Negative (Negative); Protein Urine 2+ (Negative); Specific Gravity Urine 1.018 (1.000-1.030); Urobilinogen Urine Negative (Negative); pH Urine 5.5 (4.5-7.5)
[2020-04-09 10:57] LABS: Basophils # (auto) 0.05 K/uL (0-0.2); Basophils % (auto) 0.4 %; Eosinophils # (auto) 0.12 K/uL (0-0.5); Hemoglobin 14.6 g/dL (12.0-16.0); Immature Granulocytes # (auto) 0.03 K/uL (0.00-0.02); Immature Granulocytes % (auto) 0.3 %; Lymphocytes # (auto) 2.08 K/uL (1.2-3.4); Lymphocytes % (auto) 18.2 %; Mean Corpuscular Hemoglobin 31.3 pg (25-34); Mean Corpuscular Volume 92.1 fL (80-100); Mean Platelet Volume 10.1 fL (7.4-10.4); Monocytes # (auto) 0.69 K/uL (0.11-0.59); Neutrophils # (auto) 8.46 K/uL (1.4-6.5); Neutrophils % (auto) 74.1 %; Platelet Count 357 K/uL (130-400); RDW Coefficient of Variation 12.9 % (11.5-14.5); RDW Standard Deviation 43.1 fL (36.4-46.3); Red Blood Count 4.67 M/uL (4.2-5.4); White Blood Count 11.43 K/uL (4.8-10.8)
[2020-04-09 11:06] LABS: Alanine Aminotransferase 24 U/L (12-78); Albumin Level 4.1 gm/dl (3.4-5.0); Aspartate Aminotransferase 24 U/L (15-37); BUN Creatinine Ratio 20.3 (10-20); Blood Urea Nitrogen 17 mg/dl (7-18); Calcium 9.6 mg/dl (8.5-10.1); Carbon Dioxide 22 mmol/L (21-32); Chloride 107 mmol/L (98-107); Est GFR (African American) 91.3; Est GFR (Non-African American) 78.8; Glucose 149 mg/dl (70-99); Lipase 139 U/L (73-393); Potassium 3.9 mmol/L (3.5-5.1); Sodium 140 mmol/L (136-145)
[2020-04-09 11:09] LABS: Alkaline Phosphatase 86 U/L (45-117); Bilirubin,Total 0.5 mg/dl (0.2-1); Globulin 4.2 gm/dl (2.5-4.0); Total Protein 8.3 gm/dl (6.4-8.2)
--- NOTE | 2020-04-09 11:22 | XRay Report ---
XR chest 1V portable HISTORY: 55 years-old Female vomiting blood acute hematemesis chest radiograph 04/07/2020 COMPARISON: Chest radiograph 04/07/2020 TECHNIQUE: Portable AP view of the chest FINDINGS: Cardiomediastinal and hilar silhouettes are within normal limits. No pneumothorax, pleural effusion, airspace consolidation or overt pulmonary edema. Healed remote fracture the posterior lateral right s eventh rib. Degenerative changes of the shoulders and spine. Fusion hardware of the cervical spine. IMPRESSION: No acute process. ACT 112: Negative or not required by law. The above report was generated using voice recognition software. It may contain grammatical, syntax o r spelling errors. Electronically signed by: Anam Jimenez M.D. 04/09/2020 11:21 AM
[2020-04-09] MEDS ORDERED: HydrALAZINE HCL 20 MG/ML VIAL IV STA (11:26)
[2020-04-09] MEDS: PANTOprazole 40 MG in DEXTROSE 5% 100 ML IV SCH ×2 (11:27→16:21)
[2020-04-09] MEDS ORDERED: NITROGLYCERIN 2% OINTMENT 30GM TUBE EXT SCH (12:15)
--- NOTE | 2020-04-09 12:21 | History & Physical Report ---
Date of Service April 09, 2020 Assessment & Plan (1) Cannabinoid hyperemesis syndrome: Diagnosis questionable if patient truly gave up for 3 months without resolution of symptoms ?cyclic vomiting syndrome. However certainly treatment vomiting with capsaicin and ativan more successful than treatment for hypertensive urgency therefore the cyclic vomiting appears to be driving the hypertensive urgency rather than the other way round. Lack of headache and mental status changes also favors no hypertensive emergency causing her vomiting. Continue capsaicin cream QID - needs to be prescribed on discharge Ativan 0.25mg IV given in ER - consider Ativan prescription on discharge if capsaicin cream not effective enough Unclear whether capsaicin cream or Ativan more effective since both given at the same time. (2) Hypertensive urgency: Suspect secondary to poor absorption of medication which nausea and vomiting. Nitroglycerin 1 inch patch Clonidine patch Hydralazine 10mg IV Q4H PRN. Continue her usual antihypertensives when able to tolerate PO (3) Hematemesis: Serial H&H Continue IV pantoprazole drip pending repeat H&H. Very mild, suspect vic-rae tear with vomiting. Consider GI consult if continues. (4) CAD (coronary artery disease): Mild-moderate non-obstructive on prior cardiac cath. Continue clopidogrel 75mg PO daily, metoprolol succinate 100mg PO BID, losartan 100mg PO QAM, atorvastatin 80mg PO HS (5) Marijuana dependence: Consider discontinuation if the never truly gave up for 3 months. (6) Gastritis: IV pantoprazole as above (7) DVT prophylaxis: SCDs. No chemical prophylaxis in setting of hematemesis. History of Present Illness Chief Complaint: Epigastric pain, nausea, vomiting. Primary Care Provider: DO Cyndie Romero Eva is a 55 year old female who presents to the ER with epigastric pain, nausea and vomiting. She was discharged just yesterday for similar symptoms. On this occasions she is also having hemoptysis however. After discharge she was doing well. Woke up at 7am today. Took BP medications. She took a shower and started feeling "weird" and nauseous after coming out. On taking her BP her systolic value was 199. Then had a "stone" feeling below her ribs in epigastric area. Vomiting started first then severe 10/10 abdominal pain. Vomiting started 1 hour after taking her antihypertensives this morning. She reports discontinuing cannabis for 3 months previously around this time last year without any effect on her cyclic vomiting syndrome. In the ER attempts at lowering her BP did not help with her epigastric pain or vomiting. On admission I prescribed capsaicin cream and 0.25mg IV lorazepam with immediate effect. Allergies Allergy/AdvReac Type Severity Reaction Status Date / Time napoles Allergy Intermediate Hives Verified 04/09/20 10:31 doxycycline Allergy Intermediate hives and Verified 04/09/20 10:31 vomitting Iodinated Contrast Media Allergy Intermediate GIANT Verified 04/09/20 10:31 HIVES , VOMITTING, BODY FEELS HOT loperamide Allergy Intermediate Hives and Verified 04/09/20 10:31 vomiting meperidine Allergy Intermediate HIVES, Verified 04/09/20 10:31 VOMITING prochlorperazine Allergy Intermediate N/V, Verified 04/09/20 10:31 ITCHINESS strawberry Allergy Intermediate HIVES Verified 04/09/20 10:31 tomato Allergy Intermediate HIVES Verified 04/09/20 10:31 iodine Allergy . Verified 04/09/20 10:31 latex AdvReac Mild RASH Verified 04/09/20 10:31 Home Medications Home Medications Medication Instructions Recorded Confirmed Type multivitamin 1 tab PO QAM 12/16/18 04/09/20 History losartan [Cozaar] 100 mg PO QAM 07/17/19 04/09/20 History metoprolol succinate [Toprol XL] 100 mg PO BID 07/17/19 04/09/20 History promethazine 25 mg PO Q6H PRN 07/17/19 04/09/20 History clonidine 0.1 mg/24 hr weekly 1 patch TOPICAL WK #4 ea 08/05/19 04/09/20 Rx transdermal patch ondansetron 4 mg disintegrating 4 mg PO Q6H PRN #30 tab 10/18/19 04/09/20 Rx tablet clopidogrel 75 mg tablet 75 mg PO QAM #90 tab 01/04/20 04/09/20 Rx amlodipine 5 mg tablet 5 mg PO DAILY #30 tab 02/15/20 04/09/20 Rx sertraline 100 mg tablet 100 mg PO HS #90 tab 02/29/20 04/09/20 Rx atorvastatin 80 mg tablet 80 mg PO HS #90 tab 04/04/20 04/09/20 Rx capsaicin 1 applic TOPICAL QID #25 g 04/09/20 Rx Past Med/Surg History Medical History (Updated 04/09/20 @ 17:11 by Souleymane Winn DO) Acute UTI Anxiety disorder CAD (coronary artery disease) Mild-moderate non-obstructive Carotid stenosis < 50% stenosis B/L per US 12/16/18 Cervical disc disorder Cervical radiculopathy Chronic hypertension Congestive heart failure, acute 06/2017, admitted [facility]. Ruled 2/2 Takasubo CM. Degenerative disc disease, cervical Diverticulitis Diverticulosis Gastritis Grief reaction Hematuria History of diverticulitis of colon History of gastritis History of hypotension History of myocardial infarction HTN (hypertension) Hx-TIA (transient ischemic attack) Hypercalcemia Hyperlipidemia Hypertension Kidney infection CURRENT , RIGHT (ED [facility] LAST WEEK). JUST FINISHED ABX. X4 INFECTION OVER LAST 2 YRS Marijuana dependence Multiple thyroid nodules NSTEMI (non-ST elevated myocardial infarction) 2017 [facility]. Cath performed showed mild to moderate non-obstructive CAD. Pulmonary emphysema Renal artery stenosis Takotsubo cardiomyopathy 2017. Admitted [facility], full cardiac workup including cath. EF at the time 40%, now resolved to 60-65% on echo 2018. Transient cerebrovascular ischemia Vitamin D deficiency Surgical History H/O cervical spine surgery ACDF C4-7 Dr. [place] History of cardiac cath 5-6 YR AGO - [place] - NO STENTS (per pt report, this cath not noted in cardiology notes) 2017, NSTEMI. NO INTERVENTION. History of hernia surgery History of hysterectomy History of ovarian cystectomy S/P cervical discectomy Family History Father Family history of stomach cancer Stroke Myocardial infarction Malignant neoplasm of esophagus Stomach cancer Uncle Family history of cancer FAMILY HISTORY OF CANCER - UNCLE - VOCAL CORDS FAMILY HISTORY OF CANCER - AUNT - ? KIND Throat cancer Grandmother (Maternal) Family history of breast cancer Family history of bone cancer Cancer bone Breast cancer Bone cancer Grandmother Bone cancer Other No pertinent family history Denies family history of Colon cancer Ovarian cancer Prostate cancer Crohn's disease IBD (inflammatory bowel disease) Social History Smoking Status: Former smoker packs per day: 2; Second Hand Exposure: Yes; Hx Alcohol Use: No Hx Substance Use: Yes Last Used Substance: Days (ago) Last Used Substance Ot her:: 02/09/20 Preferred Language: Mozambican Communication Ability: Effective Visual Impairment: Limited Hearing Ability: Normal Hogshead Opener Required: No Beliefs That Will Affect Care: None marital status: Current Living Situation: Spouse current occupational status: employed 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 Feels Safe at Home: Yes Safety Concerns: Feels Safe At This Time Childhood Exposure to Second-Hand Smoke: Yes caffeine: Yes (1 cup of coffee) during the past year weight has: other Dental Care, Regularly: No Physical Activity Frequency: Daily Physical Activity Frequency Comment: walking Seatbelt Use: always Sunscreen Use: Yes Review of Systems Review of Systems: All systems reviewed & are unremarkable except as noted in HPI & below Physical Exam Constitutional: well developed; + not well nourished and no acute distress Eyes: + anicteric sclerae; normal pupil size ENMT: external ear and nose normal, oropharynx normal Neck: trachea midline, no thyromegaly Respiratory: normal respiratory effort, lungs clear to auscultation Cardiovascular: RRR, no murmur, no edema Gastrointestinal (Abdomen): Inspection/Auscultation: abdomen normal to inspection and + hyperactive bowel sounds; abdomen not distended Percussion/Palpation: + abdomen tender (Generalized, greatest in epigastric area), + guarding and abdomen soft; abdomen not rigid Musculoskeletal: no cyanosis or clubbing, extremities motor strength 5/5 Skin: no rashes, warm and dry Neurologic: moves all extremities and awake; no focal motor deficits and not c onfused Motor/Sensory: no pronator drift Psychiatric: Orientation: alert and oriented x 3 Affect: + tearful affect Mood: + anxious mood Genitourinary: no CVA tenderness Lymphatic: no cervical or axillary lymphadenopathy Results & Data Results & Data ([facility]) Vital Signs (Past 12 Hours) Vital Signs Temp Pulse Resp BP Pulse Ox 04/09/20 11:58 201/118 H 04/09/20 11:31 79 10 L 04/09/20 11:30 79 11 L 204/132 H 04/09/20 11:01 79 10 L 04/09/20 11:00 87 25 H 224/149 H 04/09/20 10:51 100 04/09/20 10:31 75 14 04/09/20 10:30 70 15 196/135 H 04/09/20 10:14 79 16 228/128 H 04/09/20 10:04 74 19 04/09/20 09:48 36.7 C 90 24 219/114 H 100 Diagnostic Findings XR chest 1V portable IMPRESSION: No acute process. ECG Indication: abdominal pain Rate (beats per minute): 72 Rhythm: normal sinus Findings: + PAC and + PVC; no acute ischemic change Comparison ECG Date: from (Apr 07, 2020) Change: the following changes noted (PVCs, PACs present) Code Status & VTE Plan Code Status Full VTE Prophylaxis Plan VTE Prophylaxis will be ordered: Yes Reason for no VTE drug order: Contraindicated PG Care Time/CCT Total # of Minutes Spent Total Time Spent with Patient: Total time spent is greater than 50% in coordination of care (as documented) at patient's floor/unit and/or counseling patient: Coding Level of Care Code 41490 OBS Care - Level 3 Diagnoses Cannabinoid hyperemesis syndrome F12.988 Hypertensive urgency I16.0 Hematemesis K92.0 Nausea presence: with nausea CAD (coronary artery disease) I25.10 Marijuana dependence F12.20 Gastritis K29.70 DVT prophylaxis Z29.9 (1) Hematemesis Nausea presence: with nausea Qualified Code(s): K92.0 - Hematemesis
[2020-04-09] MEDS ORDERED: CAPSAICIN CR 0.075% 60 GM TUBE EXT STA (12:50)
[2020-04-09] MEDS ORDERED: LORazepam 0.25 MG/0.5 ML VIAL IV STA (12:51)
[2020-04-09] MEDS ORDERED: HydrALAZINE HCL 20 MG/ML VIAL IV PRN ×2 (14:37→19:23)
[2020-04-09] MEDS: CHECK CLONIDINE PATCH PLACEMENT SCH ×2 (16:20→20:00)
[2020-04-09] MEDS: CAPSAICIN CR 0.075% 60 GM TUBE EXT SCH ×3 (16:20→20:44)
[2020-04-09 16:32] LABS: Hematocrit (blood only) 43.2 % (37-47)
[2020-04-09] MEDS ORDERED: ALUMINUM/MAGNESIUM SUSP 30 ML UDC PO STA (19:23)
[2020-04-09] MEDS ORDERED: LACTATED RINGER'S 1,000 ML IV SCH (19:30)
[2020-04-09] MEDS: SERTRALINE HCL 100 MG TABLET PO SCH (20:43)
[2020-04-09] MEDS: ATORVASTATIN 40 MG TAB PO SCH (20:43)
[2020-04-09] MEDS: METOPROLOL SUCC 50MG EXT REL TAB PO SCH (20:43)
[2020-04-09] MEDS: PANTOprazole 40 MG in SYRINGE 0 ML IV SCH (20:44)
[2020-04-10 06:29] LABS: Hematocrit (blood only) 39.6 % (37-47); Hemoglobin 13.3 g/dL (12.0-16.0); Mean Corpuscular Hemoglobin 30.4 pg (25-34); Mean Corpuscular Hgb Conc 33.6 g/dL (32-36); Mean Corpuscular Volume 90.4 fL (80-100); Mean Platelet Volume 9.7 fL (7.4-10.4); Platelet Count 293 K/uL (130-400); RDW Coefficient of Variation 12.8 % (11.5-14.5); RDW Standard Deviation 42.4 fL (36.4-46.3); Red Blood Count 4.38 M/uL (4.2-5.4); White Blood Count 10.23 K/uL (4.8-10.8)
[2020-04-10 06:54] LABS: Est GFR (African American) 103.1
--- NOTE | 2020-04-10 06:54 | Electrocardiogram Report ---
Test Reason : Blood Pressure : / mmHG Vent. Rate : 072 BPM Atrial Rate : 072 BPM P-R Int : 172 ms QRS Dur : 078 ms QT Int : 406 ms P-R-T Axes : 078 -12 061 degrees QTc Int : 444 ms Poor data quality, interpretation may be adversely affected Sinus rhythm with occasional Premature ventricular complexes and Premature atrial complexes Possible Left atrial enlargement Borderline ECG When compared with ECG of 07-APR-2020 21:15, Premature ventricular complexes are now Present Premature atrial complexes are now Present Confirmed by Quinten Sanchez ([id number]) on 04/10/2020 6:54:33 AM Referred By: REFERRED SELF Confirmed By:Quinten Sanchez
[2020-04-10 06:55] LABS: BUN Creatinine Ratio 19.2 (10-20); Calcium 9.1 mg/dl (8.5-10.1); Creatinine Clr Calc Pharmacy 79.2 ml/min; Est GFR (Non-African American) 88.9
[2020-04-10] MEDS: PANTOprazole 40 MG in SYRINGE 0 ML IV SCH ×2 (08:02→20:04)
[2020-04-10] MEDS: MULTIVITAMIN TAB PO SCH (08:05)
[2020-04-10] MEDS: AMLODIPINE BESYLATE 5 MG TAB PO SCH (08:05)
[2020-04-10] MEDS: LOSARTAN POTASSIUM 50 MG TAB PO SCH (08:05)
[2020-04-10] MEDS: CAPSAICIN CR 0.075% 60 GM TUBE EXT SCH ×4 (08:07→20:05)
[2020-04-10] MEDS ORDERED: CLOPIDOGREL BISULFATE 75 MG TAB PO SCH (09:00)
[2020-04-10] MEDS: POTASSIUM CHLORIDE / WTR 10 MEQ/100 ML PLCT IV SCH ×4 (09:53→13:02)
[2020-04-10] MEDS: METOPROLOL SUCC 50MG EXT REL TAB PO SCH ×2 (12:00→20:04)
--- NOTE | 2020-04-10 14:59 | Hospitalist Progress Note ---
Date of Service April 10, 2020 Assessment & Plan (1) Cyclic vomiting syndrome: With multiple presentations of acute vomiting requiring hospitalizations. She apparently stopped smoking marijuana for 3 months previously and this did not solve her issues. States that she uses Zofran on a daily basis and smokes marijuana as well Gastric emptying study normal in 2017 Appreciate GI consultation -Trial of Elavil 25 mg p.o. at bedtime with plan to titrate up eventually to 75 mg -Continue Zofran as needed -Clear liquids diet today (2) Cannabinoid hyperemesis syndrome: Diagnosis questionable if patient truly gave up for 3 months without resolution of symptoms ?cyclic vomiting syndrome. However certainly treatment vomiting with capsaicin and ativan more successful than treatment for hypertensive urgency therefore the cyclic vomiting appears to be driving the hypertensive urgency rather than the other way round. Lack of headache and mental status changes also favors no hypertensive emergency causing her vomiting. Continue capsaicin cream QID Ativan 0.25mg IV given in ER - consider Ativan prescription on discharge if capsaicin cream not effective enough (3) Hypertensive urgency: Suspect secondary to poor absorption of medication secondary to nausea and vomiting. Continue home metoprolol, amlodipine, losartan, restart home Catapres patch Blood pressures now well controlled (4) Hematemesis: Presented with coffee-ground emesis after innumerable episodes of vomiting Hemoglobin remains in the normal range at 13 -Continue IV pantoprazole 40 mg twice daily Very mild, suspect vic-rae tear with vomiting, but reports she does have a history of PUD. Had 1 black stool yesterday but none since. No abdominal pain. Now completely resolved, no nausea and tolerating clear liquids If hemoglobin drops further tomorrow, will keep n.p.o. in case of need for EGD -Follow CBC in the morning -Hold Plavix in the morning (5) CAD (coronary artery disease): Mild-moderate non-obstructive on prior cardiac cath. Continue metoprolol succinate 100mg PO BID, losartan 100mg PO QAM, atorvastatin 80mg PO HS -Hold Plavix as above for GI bleed (6) Marijuana dependence: Counseled on cessation (7) Hypokalemia: Secondary to poor p.o. intake Replace with IV potassium chloride -Follow BMP and magnesium in the morning (8) DVT prophylaxis: SCDs. No chemical prophylaxis in setting of hematemesis. Disposition-continued stay on PCU Admission and Anticipated Discharge Date Admission Date: April 09, 2020 Subjective Patient reports no further nausea and is tolerating clear liquids diet. No further melena since the one episode yesterday. Denies chest pain or shortness of breath. She reports to me that she has take Zofran on a daily basis at home and has cut down on her marijuana smoking, but uses it as a "last resort" for nausea. I discussed her case with GI Review of Systems Review of Systems: All systems reviewed & are unremarkable except as noted in HPI & below Physical Exam Constitutional: WD/WN, vitals as above Eyes: + anicteric sclerae ENMT: external ear and nose normal, oropharynx normal Neck: trachea midline, no thyromegaly Respiratory: normal respiratory effort, lungs clear to auscultation Cardiovascular: RRR, no murmur, no edema Chest (Breasts): Chest: normal inspection of chest Gastrointestinal (Abdomen): normal bowel sounds, soft, nontender, no hepatosplenomegaly Musculoskeletal: Extremities: extremities normal to inspection; no cyanosis and no clubbing Skin: no rashes, warm and dry Neurologic: moves all extremities and awake; no focal motor deficits Psychiatric: A+Ox3, euthymic affect Lymphatic: no lymphedema Results & Data Results & Data ([facility]) Vital Signs (Past 12 Hours) Vital Signs Temp Pulse Resp BP BP Pulse Ox 04/10/20 11:29 37.1 C 65 18 118/81 97 04/10/20 07:26 37.0 C 70 18 107/67 96 04/10/20 03:35 37.2 C 67 18 101/63 97 Laboratory Results 04/10/20 04/10/20 Range/Units 06:07 06:07 WBC 10.23 (4.8-10.8) K/uL RBC 4.38 (4.2-5.4) M/uL Hgb 13.3 (12.0-16.0) g/dL Hct 39.6 (37-47) % MCV 90.4 (80-100) fL MCH 30.4 (25-34) pg MCHC 33.6 (32-36) g/dL RDW Std Deviation 42.4 (36.4-46.3) fL RDW Coeff of Jose Luis 12.8 (11.5-14.5) % Plt Count 293 (130-400) K/uL MPV 9.7 (7.4-10.4) fL Sodium 137 (136-145) mmol/L Potassium 3.0 L D (3.5-5.1) mmol/L Chloride 103 (98-107) mmol/L Carbon Dioxide 25 (21-32) mmol/L Anion Gap 9.0 (3-11) BUN 15 (7-18) mg/dl Creatinine 0.76 (0.6-1.2) mg/dl Est Cr Clr Drug Dosing 79.2 ml/min Est GFR ( Amer) 103.1 Est GFR (Non-Af Amer) 88.9 BUN/Creatinine Ratio 19.2 (10-20) Glucose 104 H (70-99) mg/dl Calcium 9.1 (8.5-10.1) mg/dl PG Care Time/CCT Total # of Minutes Spent Total Time Spent with Patient: Total time spent is greater than 50% in coordination of care (as documented) at patient's floor/unit and/or counseling patient: Coding Level of Care Code 45880 Subseq Hosp Care Lvl 3 Diagnoses Cyclic vomiting syndrome R11.15 Cannabinoid hyperemesis syndrome F12.988 Hypertensive urgency I16.0 Hematemesis K92.0 Nausea presence: with nausea CAD (coronary artery disease) I25.10 Marijuana dependence F12.20 Hypokalemia E87.6 DVT prophylaxis Z29.9 (1) Hematemesis Nausea presence: with nausea Qualified Code(s): K92.0 - Hematemesis
[2020-04-10] MEDS ORDERED: cloNIDine HCL 0.1 MG/24 HR TRANSDERM SYS TD SCH (15:15)
--- NOTE | 2020-04-10 15:25 | Gastrointestinal Consultation ---
Date of Consultation April 10, 2020 Assessment & Plan (1) Hematemesis: (2) Nausea & vomiting: suspect a possible small tear in the gastric or esophageal lining causing mild hematemesis, should be self-limited. In terms of her persistent n/v, I am concerned that she does in fact have cyclical vomiting syndrome, has never been on elavil. Recs: start elavil 25 mg qhs and eventually titrate up to 75 mg qhs as tolerated anti-emetics prn, pain control prn clear liquid diet for now, keep NPO post midnight just in case she develops further hematemesis/evidence of bleeding rest as per primary team Thank you for allowing me to participate in the care of this patient History of Present Illness Attending Physician: Leonie Fairbanks MD 55 yo female with hx chronic nausea and vomiting here with abdominal pains, nausea and vomiting. She notes having hematemesis prior to admission. In terms of her nausea and vomiting, this has been ongoing for 4 years, she will get periods of intense nausea and vomiting followed by good periods where she can tolerate food and feels ok. It was thought that she had cannabis hyperemesis syndrome and so she discontinued cannabis for 3 months without any improvement in her symptoms. Prior EGD [place] [address] Patten was unremarkable. Currently she is NPO, hgb is normal. labs reviewed. vital signs stable. Allergies Allergy/AdvReac Type Severity Reaction Status Date / Time napoles Allergy Intermediate Hives Verified 04/09/20 10:31 doxycycline Allergy Intermediate hives and Verified 04/09/20 10:31 vomitting Iodinated Contrast Media Allergy Intermediate GIANT Verified 04/09/20 10:31 HIVES , VOMITTING, BODY FEELS HOT loperamide Allergy Intermediate Hives and Verified 04/09/20 10:31 vomiting meperidine Allergy Intermediate HIVES, Verified 04/09/20 10:31 VOMITING prochlorperazine Allergy Intermediate N/V, Verified 04/09/20 10:31 ITCHINESS strawberry Allergy Intermediate HIVES Verified 04/09/20 10:31 tomato Allergy Intermediate HIVES Verified 04/09/20 10:31 iodine Allergy . Verified 04/09/20 10:31 latex AdvReac Mild RASH Verified 04/09/20 10:31 Home Medications Home Medications Medication Instructions Recorded Confirmed Type multivitamin 1 tab PO QAM 12/16/18 04/09/20 History losartan [Cozaar] 100 mg PO QAM 07/17/19 04/09/20 History metoprolol succinate [Toprol XL] 100 mg PO BID 07/17/19 04/09/20 History promethazine 25 mg PO Q6H PRN 07/17/19 04/09/20 History clonidine 0.1 mg/24 hr weekly 1 patch TOPICAL WK #4 ea 08/05/19 04/09/20 Rx transdermal patch ondansetron 4 mg disintegrating 4 mg PO Q6H PRN #30 tab 10/18/19 04/09/20 Rx tablet clopidogrel 75 mg tablet 75 mg PO QAM #90 tab 01/04/20 04/09/20 Rx amlodipine 5 mg tablet 5 mg PO DAILY #30 tab 02/15/20 04/09/20 Rx sertraline 100 mg tablet 100 mg PO HS #90 tab 02/29/20 04/09/20 Rx atorvastatin 80 mg tablet 80 mg PO HS #90 tab 04/04/20 04/09/20 Rx capsaicin 1 applic TOPICAL QID #25 g 04/09/20 Rx Patient History Medical History (Updated 04/09/20 @ 17:11 by Souleymane Winn DO) Acute UTI Anxiety disorder CAD (coronary artery disease) Mild-moderate non-obstructive Carotid stenosis < 50% stenosis B/L per US 12/16/18 Cervical disc disorder Cervical radiculopathy Chronic hypertension Congestive heart failure, acute 06/2017, admitted [facility]. Ruled 2/2 Takasubo CM. Degenerative disc disease, cervical Diverticulitis Diverticulosis Gastritis Grief reaction Hematuria History of diverticulitis of colon History of gastritis History of hypotension History of myocardial infarction HTN (hypertension) Hx-TIA (transient ischemic attack) Hypercalcemia Hyperlipidemia Hypertension Kidney infection CURRENT , RIGHT (ED [facility] LAST WEEK). JUST FINISHED ABX. X4 INFECTION OVER LAST 2 YRS Marijuana dependence Multiple thyroid nodules NSTEMI (non-ST elevated myocardial infarction) 2017 [facility]. Cath performed showed mild to moderate non-obstructive CAD. Pulmonary emphysema Renal artery stenosis Takotsubo cardiomyopathy 2016. Admitted [facility], full cardiac workup including cath. EF at the time 40%, now resolved to 60-65% on echo 2018. Transient cerebrovascular ischemia Vitamin D deficiency Surgical History H/O cervical spine surgery ACDF C4-7 Dr. [place] History of cardiac cath 5-6 YR AGO - [place] - NO STENTS (per pt report, this cath not noted in cardiology notes) 2017, NSTEMI. NO INTERVENTION. History of hernia surgery History of hysterectomy History of ovarian cystectomy S/P cervical discectomy Family History Father Family history of stomach cancer Stroke Myocardial infarction Malignant neoplasm of esophagus Stomach cancer Uncle Family history of cancer FAMILY HISTORY OF CANCER - UNCLE - VOCAL CORDS FAMILY HISTORY OF CANCER - AUNT - ? KIND Throat cancer Grandmother (Maternal) Family history of breast cancer Family history of bone cancer Cancer bone Breast cancer Bone cancer Grandmother Bone cancer Other No pertinent family history Denies family history of Colon cancer Ovarian cancer Prostate cancer Crohn's disease IBD (inflammatory bowel disease) Social History Smoking Status: Former smoker packs per day: 2; Second Hand Exposure: Yes; Hx Alcohol Use: No Hx Substance Use: Yes Last Used Substance: Days (ago) Last Used Substance Other:: 02/09/20 Preferred Language: Finnish Communication Ability: Effective Visual Impairment: Limited Hearing Ability: Normal Filter Machine Operator Required: No Beliefs That Will Affect Care: None marital status: Current Living Situation: Spouse current occupational status: employed 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 Feels Safe at Home: Yes Safety Concerns: Feels Safe At This Time Childhood Exposure to Second-Hand Smoke: Yes caffeine: Yes (1 cup of coffee) during the past year weight has: other Dental Care, Regularly: No Physical Activity Frequency: Daily Physical Activity Frequency Comment: walking Seatbelt Use: always Sunscreen Use: Yes Review of Systems Constitutional: no fever, no chills and no weight loss Eyes: as per Subjective / HPI Ear, Nose, Mouth, Throat: as per Subjective / HPI Respiratory: no dyspnea and no dyspnea on exertion Cardiovascular: no chest pain and no palpitations Gastrointestinal: as per Subjective / HPI Musculoskeletal: no joint pain and no swelling Integumentary: no rash and no lesions Neurologic: no numbness and no paresthesia Psychiatric: no depression and no anxiety Endocrine: no fatigue Hematologic / Lymphatic: no easy bleeding and no easy bruising Physical Exam Constitutional: WD/WN, vitals as above Eyes: EOM intact bilaterally Neck: normal visual inspection Respiratory: normal respiratory effort, lungs clear to auscultation Cardiovascular: RRR, no murmur, no edema Gastrointestinal (Abdomen): Inspection/Auscultation: abdomen normal to inspection; abdomen not distended Percussion/Palpation: abdomen soft; abdomen nontender and no hepatosplenomegaly Musculoskeletal: Extremities: no cyanosis Gait: normal gait Skin: no rashes, warm and dry Neurologic: moves all extremities Psychiatric: A+Ox3, euthymic affect Results & Data ([facility]) Vital Signs (Past 12 Hours) Vital Signs Temp Pulse Resp BP BP Pulse Ox 04/10/20 11:29 37.1 C 65 18 118/81 97 04/10/20 07:26 37.0 C 70 18 107/67 96 04/10/20 03:35 37.2 C 67 18 101/63 97 PG Care Time/CCT Total # of Minutes Spent Total Time Spent with Patient: Total time spent is greater than 50% in coordination of care (as documented) at patient's floor/unit and/or counseling patient: Coding Level of Care Code 09031 Inpt Consult Level 4 Diagnoses Hematemesis K92.0 Nausea presence: with nausea Nausea & vomiting R11.2 (1) Hematemesis Nausea presence: with nausea Qualified Code(s): K92.0 - Hematemesis
[2020-04-10] MEDS: CHECK CLONIDINE PATCH PLACEMENT SCH ×2 (16:36→23:18)
[2020-04-10] MEDS: SERTRALINE HCL 100 MG TABLET PO SCH (20:04)
[2020-04-10] MEDS: ATORVASTATIN 40 MG TAB PO SCH (20:04)
[2020-04-10] MEDS ORDERED: AMITRIPTYLINE HCL 25 MG TAB PO SCH (21:00)
[2020-04-11 03:31] VITALS: TEMP 98.2
[2020-04-11 06:13] LABS: Basophils # (auto) 0.07 K/uL (0-0.2); Basophils % (auto) 0.8 %; Eosinophils # (auto) 0.31 K/uL (0-0.5); Eosinophils % (auto) 3.7 %; Hematocrit (blood only) 41.3 % (37-47); Hemoglobin 13.8 g/dL (12.0-16.0); Immature Granulocytes # (auto) 0.02 K/uL (0.00-0.02); Immature Granulocytes % (auto) 0.2 %; Lymphocytes # (auto) 3.34 K/uL (1.2-3.4); Lymphocytes % (auto) 39.4 %; Mean Corpuscular Hemoglobin 30.7 pg (25-34); Mean Corpuscular Hgb Conc 33.4 g/dL (32-36); Mean Corpuscular Volume 91.8 fL (80-100); Mean Platelet Volume 9.7 fL (7.4-10.4); Monocytes # (auto) 0.89 K/uL (0.11-0.59); Monocytes % (auto) 10.5 %; Neutrophils # (auto) 3.85 K/uL (1.4-6.5); Neutrophils % (auto) 45.4 %; Platelet Count 282 K/uL (130-400); RDW Coefficient of Variation 12.9 % (11.5-14.5); RDW Standard Deviation 43.3 fL (36.4-46.3); White Blood Count 8.48 K/uL (4.8-10.8)
[2020-04-11 06:40] LABS: BUN Creatinine Ratio 21.4 (10-20); Calcium 9.4 mg/dl (8.5-10.1); Creatinine Clr Calc Pharmacy 83.6 ml/min; Est GFR (Non-African American) 94.9; Magnesium 2.3 mg/dl (1.8-2.4); Potassium 3.3 mmol/L (3.5-5.1)
[2020-04-11 06:58] VITALS: O2SAT 99
[2020-04-11] MEDS: PANTOprazole 40 MG in SYRINGE 0 ML IV SCH (08:32)
[2020-04-11] MEDS: METOPROLOL SUCC 50MG EXT REL TAB PO SCH (08:32)
[2020-04-11] MEDS: LOSARTAN POTASSIUM 50 MG TAB PO SCH (08:32)
[2020-04-11] MEDS: AMLODIPINE BESYLATE 5 MG TAB PO SCH (08:32)
[2020-04-11] MEDS: CAPSAICIN CR 0.075% 60 GM TUBE EXT SCH (08:33)
[2020-04-11] MEDS: CHECK CLONIDINE PATCH PLACEMENT SCH (08:34)
[2020-04-11] MEDS: MULTIVITAMIN TAB PO SCH (08:34)
[2020-04-11] MEDS ORDERED: cloNIDine HCL 0.1 MG/24 HR TRANSDERM SYS TD SCH (09:00)
[2020-04-11] MEDS ORDERED: POTASSIUM CHLORIDE 20 MEQ TABCR PO STA (09:02)
--- NOTE | 2020-04-11 10:14 | Gastroenterology Progress Note ---
Date of Service April 11, 2020 Assessment & Plan (1) Cyclic vomiting syndrome: -Continue Protonix 40 mg BID on discharge -Recommend discharging on an antiemetic -Continue Elavil 25 mg QHS (2) Hematemesis: -No further episodes; likely from vomiting. H/H normal. Admission and Anticipated Discharge Date Admission Date: April 10, 2020 Supervising Physician Co-Signing Physician Notes Agree with MARY Roe Patient was discharged prior to my evaluation Subjective Patient is a 55 yo female with nausea, vomiting, and an episode of hematemesis after vomiting. Vomiting was originally felt to be related to cannabinoid hyperemesis syndrome. She was positive for marijuana on her UDS this admission. She did not have further blood-tinged emesis after her vomiting was controlled. She is currently on Protonix 40 mg BID. She was started on Elavil by Dr. Suárez. She is currently without nausea or vomiting at present. Review of Systems Constitutional: no fever and no chills Respiratory: no cough and no dyspnea Cardiovascular: no chest pain Gastrointestinal: no abdominal pain, no vomiting, no coffee ground emesis and no melena Physical Exam Constitutional: WD/WN, vitals as above Respiratory: normal respiratory effort Cardiovascular: Extremities: no edema Gastrointestinal (Abdomen): Inspection/Auscultation: abdomen normal to inspection Skin: no rashes Psychiatric: A+Ox3, euthymic affect Results & Data Results & Data ([facility]) Vital Signs (Past 12 Hours) Vital Signs Temp Pulse Resp BP BP Pulse Ox 04/11/20 06:57 36.8 C 56 L 20 102/69 99 04/11/20 03:30 36.8 C 59 L 16 103/67 93 04/10/20 23:17 37 C 57 L 16 106/72 97 PG Care Time/CCT Total # of Minutes Spent Total Time Spent with Patient: Total time spent is greater than 50% in coordination of care (as documented) at patient's floor/unit and/or counseling patient: Coding Level of Care Code 96306 Subseq Hosp Care Lvl 2 Diagnoses Cyclic vomiting syndrome R11.15 Hematemesis K92.0 Nausea presence: with nausea (1) Hematemesis Nausea presence: with nausea Qualified Code(s): K92.0 - Hematemesis
--- NOTE | 2020-04-11 11:38 | Discharge Summary ---
Date of Service April 11, 2020 Admission HPI Per Admitting Provider Cyndie Velasquez is a 55 year old female who presents to the ER with epigastric pain, nausea and vomiting. She was discharged just yesterday for similar symptoms. On this occasions she is also having hemoptysis however. After discharge she was doing well. Woke up at 7am today. Took BP medications. She took a shower and started feeling "weird" and nauseous after coming out. On taking her BP her systolic value was 199. Then had a "stone" feeling below her ribs in epigastric area. Vomiting started first then severe 10/10 abdominal pain. Vomiting started 1 hour after taking her antihypertensives this morning. She reports discontinuing cannabis for 3 months previously around this time last year without any effect on her cyclic vomiting syndrome. In the ER attempts at lowering her BP did not help with her epigastric pain or vomiting. On admission I prescribed capsaicin cream and 0.25mg IV lorazepam with immediate effect. Principal Diagnosis Cyclical vomiting syndrome, hematemesis, hypertensive urgency Discharge Exam Constitutional WD/WN, vitals as above Eyes + anicteric sclerae ENMT external ear and nose normal, oropharynx normal Neck trachea midline, no thyromegaly Respiratory normal respiratory effort, lungs clear to auscultation Cardiovascular RRR, no murmur, no edema Chest (Breasts) Chest: normal inspection of chest Gastrointestinal (Abdomen) normal bowel sounds, soft, nontender, no hepatosplenomegaly Musculoskeletal Extremities: extremities normal to inspection; no cyanosis and no clubbing Skin no rashes, warm and dry Neurologic moves all extremities and awake; no focal motor deficits Psychiatric A+Ox3, euthymic affect Lymphatic no lymphedema Discharge Data Allergies Allergy/AdvReac Type Severity Reaction Status Date / Time napoles Allergy Intermediate Hives Verified 04/12/20 04:53 doxycycline Allergy Intermediate hives and Verified 04/12/20 04:53 vomitting Iodinated Contrast Media Allergy Intermediate GIANT Verified 04/12/20 04:53 HIVES , VOMITTING, BODY FEELS HOT loperamide Allergy Intermediate Hives and Verified 04/12/20 04:53 vomiting meperidine Allergy Intermediate HIVES, Verified 04/12/20 04:53 VOMITING prochlorperazine Allergy Intermediate N/V, Verified 04/12/20 04:53 ITCHINESS strawberry Allergy Intermediate HIVES Verified 04/12/20 04:53 tomato Allergy Intermediate HIVES Verified 04/12/20 04:53 iodine Allergy . Verified 04/12/20 04:53 latex AdvReac Mild RASH Verified 04/12/20 04:53 Consultations 04/09/20 11:25 ED Decision to Admit Stat 04/10/20 11:21 Consult Gastroenterology Routine Ordered Studies Chest x-ray Hospital Course (1) Cyclic vomiting syndrome: With multiple presentations of acute vomiting requiring hospitalizations. She apparently stopped smoking marijuana for 3 months previously and this did not solve her issues. States that she uses Zofran on a daily basis and smokes marijuana as well Gastric emptying study normal in 2017 Appreciate GI consultation -Trial of Elavil 25 mg p.o. at bedtime with plan to titrate up eventually to 75 mg-she took the first dose the evening before discharge and said she felt the best she had in a long time -Continue Zofran as needed -Was tolerating regular diet at the time of discharge (2) Cannabinoid hyperemesis syndrome: Diagnosis questionable if patient truly gave up for 3 months without resolution of symptoms ?cyclic vomiting syndrome. However certainly treatment vomiting with capsaicin and ativan more successful than treatment for hypertensive urgency therefore the cyclic vomiting appears to be driving the hypertensive urgency rather than the other way round. Lack of headache and mental status changes also favors no hypertensive emergency causing her vomiting. Continue capsaicin cream QID Ativan 0.25mg IV given in ER - consider Ativan prescription after discharge if capsaicin cream not effective enough Encouraged cessation of marijuana use (3) Hypertensive urgency: Suspect secondary to poor absorption of medication secondary to nausea and vomiting. Has had work-up for secondary causes of hypertension in the past Also with a history of PRES Continue home metoprolol, amlodipine, losartan, restart home Catapres patch Blood pressures now very well controlled (4) Hematemesis: Presented with coffee-ground emesis after innumerable episodes of vomiting Hemoglobin remains in the normal range at 13 -Received IV pantoprazole 40 mg twice daily and will convert to p.o. Protonix on discharge Very mild, suspect vic-rae tear with vomiting, but reports she does have a history of PUD. Had 1 black stool the day of admission but none since. No abdominal pain. Now completely resolved, no nausea and tolerating regular diet GI was consulted-no EGD indicated as she is completely improved and hemoglobin did not drop and in fact went up Okay to restart Plavix (5) CAD (coronary artery disease): Mild-moderate non-obstructive on prior cardiac cath. Continue metoprolol succinate 100mg PO BID, losartan 100mg PO QAM, atorvastatin 80mg PO HS -Held Plavix as above for GI bleed but will restart on discharge (6) Marijuana dependence: Counseled on cessation (7) Hypokalemia: Secondary to poor p.o. intake previously Replaced and improved (8) DVT prophylaxis: SCDs. No chemical prophylaxis in setting of hematemesis. Disposition-stable for discharge to home Total Time Total Time Spent Total Time Spent (In Minutes): 45 min Total Time Includes: Examination of the Patient, Discharge Planning and Medication Reconciliation Discharge Plan Discharge Items Patient Disposition: Home - Self-Care Reason For Visit: HYPERTENSIVE URGENCY, HEMATEMESIS Discharge Diagnosis: Hypertensive urgency, hematemesis Condition on Discharge: Good Activity: Resume your previous activity Non-emergency contact: Primary Care Provider Call non-emergency contact if: you have any medication questions and your symptoms worsen Follow-up/Referrals: Teena Killian DO [Primary Care Provider] - 04/20/20 9:20 am (Please follow up within 1-2 weeks.) Diet: Heart Healthy and Low Sodium (2gm) Addtl Attending Provider Instructions: You were admitted for elevated blood pressures and nausea with vomiting of blood. You were started on a new medication to help with your cyclical vomiting syndrome called amitriptyline. This can be slowly increased over time to 75mg under the advice of your PCP. For now, continue the 25mg dose each evening. Dr. Pereira (the doctor that admitted you) wanted you to try capsaicin cream rubbed on your stomach as this can potentially help vomiting associated with marijuana use. He called in this prescription for you to your pharmacy as well. The bleeding in your vomit was probably due to a small tear on the inside of the esophagus from excessive vomiting. This resolved and your blood count did not drop significantly. You did not require an endoscopy. Please continue to take Protonix as an antacid to help the esophagus to heal for 1 month. Follow up with your PCP within 1-2 weeks. Pending Studies at Discharge: No Stand-Alone Forms: My [facility] Medications and DC Order Prescriptions: New capsaicin 0.025 % cream 1 applic topical QID Qty: 25 RF: 0 amitriptyline 25 mg Tablet 25 mg PO HS Qty: 30 RF: 0 Continued ondansetron 4 mg tablet,disintegrating 4 mg PO Q6H PRN (Reason: Nausea And Vomiting) Qty: 30 RF: 0 clopidogrel [Plavix] 75 mg tablet 75 mg PO QAM Qty: 90 RF: 0 amlodipine 5 mg tablet 5 mg PO DAILY Qty: 30 RF: 2 sertraline [Zoloft] 100 mg tablet 100 mg PO HS Qty: 90 RF: 1 atorvastatin 80 mg tablet 80 mg PO HS Qty: 90 RF: 3 clonidine [Eafntpnc-VQC-3] 0.1 mg/24 hr patch weekly 1 patch topical WK Qty: 4 RF: 4 multivitamin Tablet 1 tab PO QAM RF: 0 metoprolol succinate [Toprol XL] 100 mg tablet extended release 24 hr 100 mg PO BID RF: 0 promethazine 25 mg tablet 25 mg PO Q6H PRN (Reason: Nausea And Vomiting) RF: 0 losartan [Cozaar] 100 mg tablet 100 mg PO QAM RF: 0 Discharge Orders: Discharge Order (Routine); Ordered 04/11/20 Ordered By: Leonie Fairbanks Admission Data Admit Date/Time: 04/10/20 15:00 Attending Provider: Leonie Fairbanks Admit Provider: Franck Pereira Primary Care Provider: Teena Killian Other Providers: Franck Pereira ; Shen Suárez Other Interventions: Discharge Summary Assessment (RN) Last Done: 04/11/20 12:30 Coding Level of Care Code D/C Day Management >30 mins Diagnoses Cyclic vomiting syndrome R11.15 Cannabinoid hyperemesis syndrome F12.988 Hypertensive urgency I16.0 Hematemesis K92.0 Nausea presence: with nausea CAD (coronary artery disease) I25.10 Marijuana dependence F12.20 Hypokalemia E87.6 DVT prophylaxis Z29.9
[2020-04-11 12:36] VITALS: BP 105/65; PULSE 64
== END 2020-04-11 13:00 | disposition home or self-care (01) ==
LOC: 2S 09:36 → ED 09:36 → SUATTDRO 12:45 → 2S 13:42

== ENCOUNTER 2020-04-12 04:37 | Observation (INO) ==
[2020-04-12] MEDS ORDERED: HydrALAZINE HCL 20 MG/ML VIAL IV STA (05:30)
[2020-04-12] MEDS ORDERED: ONDANSETRON INJ 2 MG/ML 2 ML VIAL IV STA (05:31)
[2020-04-12 05:43] LABS: Basophils # (auto) 0.11 K/uL (0-0.2); Basophils % (auto) 0.7 %; Eosinophils # (auto) 0.47 K/uL (0-0.5); Eosinophils % (auto) 2.9 %; Hematocrit (blood only) 46.2 % (37-47); Hemoglobin 15.3 g/dL (12.0-16.0); Immature Granulocytes # (auto) 0.05 K/uL (0.00-0.02); Immature Granulocytes % (auto) 0.3 %; Lymphocytes # (auto) 2.45 K/uL (1.2-3.4); Lymphocytes % (auto) 15.2 %; Mean Corpuscular Hemoglobin 30.5 pg (25-34); Mean Corpuscular Hgb Conc 33.1 g/dL (32-36); Mean Platelet Volume 10.4 fL (7.4-10.4); Monocytes # (auto) 1.15 K/uL (0.11-0.59); Monocytes % (auto) 7.2 %; Neutrophils # (auto) 11.84 K/uL (1.4-6.5); Neutrophils % (auto) 73.7 %; Platelet Count 391 K/uL (130-400); RDW Coefficient of Variation 12.9 % (11.5-14.5); RDW Standard Deviation 43.3 fL (36.4-46.3); Red Blood Count 5.02 M/uL (4.2-5.4); White Blood Count 16.07 K/uL (4.8-10.8)
[2020-04-12 05:50] LABS: BUN Creatinine Ratio 23.2 (10-20); Calcium 9.6 mg/dl (8.5-10.1); Creatinine Clr Calc Pharmacy 64.5 ml/min; Est GFR (African American) 76.7; Est GFR (Non-African American) 66.2; Potassium 3.7 mmol/L (3.5-5.1)
[2020-04-12 05:54] LABS: Bilirubin,Total 0.3 mg/dl (0.2-1); Globulin 4.1 gm/dl (2.5-4.0); Total Protein 8.1 gm/dl (6.4-8.2); Troponin I 0.022 ng/ml (0-0.045)
[2020-04-12] MEDS ORDERED: LABETALOL HCL IV 5 MG/ML 20ML IV STA ×3 (06:11→08:59)
[2020-04-12] MEDS ORDERED: ONDANSETRON INJ 2 MG/ML 2 ML VIAL IV PRN (09:04)
[2020-04-12] MEDS ORDERED: ENALAPRILAT 0.625 MG in SYRINGE 9.5 ML IV PRN (09:04)
[2020-04-12] MEDS ORDERED: HydrALAZINE HCL 20 MG/ML VIAL IV PRN (09:04)
[2020-04-12] MEDS ORDERED: PROMETHAZINE HCL 6.25 MG in SODIUM CHLORIDE 0.9% 50 ML IV PRN (09:04)
--- NOTE | 2020-04-12 09:05 | History & Physical Report ---
Date of Service April 12, 2020 Assessment & Plan (1) Hypertensive urgency: Again presents for the third time in a week with hypertensive urgency and nausea/vomiting. Follows with nephrology as an outpatient and has had work-up for secondary hypertension in the past. Initially thought to have renal artery stenosis which was then disproven on MRA. Has a history of PRES with seizure in 08/2019 which then resolved and she was weaned off Keppra. There is been some concern in the past that her hypertensive urgency is from noncompliance with medication or not being able to take medications due to cyclical vomiting syndrome, however that does not seem to be the case at this time. No focal neurological deficits at this time, troponin is within normal limits, no ischemic changes on ECG, no renal failure. No headache or vision changes. She was given hydralazine 10 mg IV x1, labetalol 5 mg IV and then 10 mg IV x1 in the ER. Blood pressure still remain at 200/110 and she is still feeling very ill. -Bring in on observation to PCU -Give another dose of IV labetalol 10 mg x 1 now -Can give Vasotec 0.65 mg IV every 6 hours as needed SBP greater than 180, hydralazine 10 mg IV every 8 hours as needed SBP greater than 180 -Check CT scan of the head given intractable nausea and vomiting -Consult nephrology whom she follows with as an outpatient to see about any further testing that should be done given numerous hospitalizations and extremely labile blood pressures -If tolerating p.o. later, can restart home meds of metoprolol, losartan, and amlodipine. Can continue Catapres patch which is in place on the right upper arm (2) Cyclic vomiting syndrome: With numerous hospitalizations for this. Question in the past if it has been related to marijuana use. Subjectively with hematemesis both last admission and possibly this morning, however hemoglobin is elevated from previous and is in the normal range although somewhat hemoconcentrated -Follow CBC -Give IV Zofran, IV Phenergan as needed -Seems to be related to elevated blood pressures at this time -Control blood pressure -Checking CT of the head -Check CT of the abdomen/pelvis without contrast given her IV contrast dye allergy -Continue Elavil 25 mg p.o. nightly as started by GI upon last admission (3) HTN (hypertension): As noted above (4) CAD (coronary artery disease): Noted to be mild to moderate nonobstructive CAD on prior cardiac catheterization -Continue metoprolol, losartan, atorvastatin, and Plavix when tolerating p.o. No ischemic changes on ECG Troponin is mildly detectable but in normal range and stable from previous No chest pain (5) Hyperlipidemia: Continue statin when can take p.o. (6) Marijuana dependence: Counseled on cessation (7) DVT prophylaxis: Heparin SQ Disposition-bring in on observation to PCU History of Present Illness Chief Complaint: Nausea/vomiting, elevated blood pressure Primary Care Provider: Teena Killian DO This patient is a 55-year-old female with a history of cyclic vomiting syndrome, multiple admissions including 3 in the last week for hypertensive u rgency/emergency and a history of PRES, HTN, nonobstructive CAD, and marijuana dependence, who presents again to the ER today with sudden onset of nausea and vomiting and significantly elevated blood pressures started at 4:00 this morning. I discharged her from the hospital yesterday after a very almost identical presentation with vomiting and hypertensive urgency. She reports she went home and ate dinner and was feeling great and went to sleep, then woke up with symptoms as above. She vomited multiple times and thinks maybe there was some red substance in it. She denies headache or vision changes, denies numbness or tingling or focal weakness. She does report feeling terrible and generally weak all over. She denies chest pains or shortness of breath, denies abdominal pain or diarrhea. No melena. She took all of her medications as prescribed last night but did not yet take them this morning because of the vomiting. Work-up in the ER included a CBC which was only significant for leukocytosis of 16, and a CMP which was normal, as well as a troponin that was mildly detectable at 0.022 yet stable from previous. ECG with normal sinus rhythm and left axis deviation, no ischemic changes She will be brought in on observation for hypertensive urgency and intractable nausea and vomiting. Allergies Allergy/AdvReac Type Severity Reaction Status Date / Time napoles Allergy Intermediate Hives Verified 04/12/20 04:53 doxycycline Allergy Intermediate hives and Verified 04/12/20 04:53 vomitting Iodinated Contrast Media Allergy Intermediate GIANT Verified 04/12/20 04:53 HIVES , VOMITTING, BODY FEELS HOT loperamide Allergy Intermediate Hives and Verified 04/12/20 04:53 vomiting meperidine Allergy Intermediate HIVES, Verified 04/12/20 04:53 VOMITING prochlorperazine Allergy Intermediate N/V, Verified 04/12/20 04:53 ITCHINESS strawberry Allergy Intermediate HIVES Verified 04/12/20 04:53 tomato Allergy Intermediate HIVES Verified 04/12/20 04:53 iodine Allergy . Verified 04/12/20 04:53 latex AdvReac Mild RASH Verified 04/12/20 04:53 Home Medications Home Medications Medication Instructions Recorded Confirmed Type multivitamin 1 tab PO QAM 12/16/18 04/12/20 History losartan [Cozaar] 100 mg PO QAM 07/17/19 04/12/20 History metoprolol succinate [Toprol XL] 100 mg PO BID 07/17/19 04/12/20 History promethazine 25 mg PO Q6H PRN 07/17/19 04/12/20 History clonidine 0.1 mg/24 hr weekly 1 patch TOPICAL WK #4 ea 08/05/19 04/12/20 Rx transdermal patch ondansetron 4 mg disintegrating 4 mg PO Q6H PRN #30 tab 10/18/19 04/12/20 Rx tablet clopidogrel 75 mg tablet 75 mg PO QAM #90 tab 01/04/20 04/12/20 Rx amlodipine 5 mg tablet 5 mg PO DAILY #30 tab 02/15/20 04/12/20 Rx sertraline 100 mg tablet 100 mg PO HS #90 tab 02/29/20 04/12/20 Rx atorvastatin 80 mg tablet 80 mg PO HS #90 tab 04/04/20 04/12/20 Rx capsaicin 1 applic TOPICAL QID #25 g 04/09/20 04/12/20 Rx amitriptyline 25 mg PO HS #30 tab 04/11/20 04/12/20 Rx Past Med/Surg History Medical History Abnormal MRI of head Acute UTI Anxiety disorder CAD (coronary artery disease) Mild-moderate non-obstructive Carotid stenosis < 50% stenosis B/L per US 12/16/18 Cervical disc disorder Cervical radiculopathy Congestive heart failure, acute 06/2017, admitted [facility]. Ruled 2/2 Takasubo CM. Cyclic vomiting syndrome Degenerative disc disease, cervical Diverticulitis Diverticulosis Gastritis Grief reaction Hematuria History of diverticulitis of colon History of gastritis History of hypotension History of myocardial infarction HTN (hypertension) Hx-TIA (transient ischemic attack) Hypercalcemia Hyperlipidemia Hypertension Kidney infection CURRENT , RIGHT (ED [facility] LAST WEEK). JUST FINISHED ABX. X4 INFECTION OVER LAST 2 YRS Marijuana dependence Multiple thyroid nodules New onset seizure 07/17/2019 NSTEMI (non-ST elevated myocardial infarction) 2017 [facility]. Cath performed showed mild to moderate non-obstructive CAD. PRES (posterior reversible encephalopathy syndrome) Pulmonary emphysema Renal artery stenosis Takotsubo cardiomyopathy 2017. Admitted [facility], full cardiac workup including cath. EF at the time 40%, now resolved to 60-65% on echo 2019. Transient cerebrovascular ischemia Vitamin D deficiency Surgical History H/O cervical spine surgery ACDF C4-7 Dr. [place] History of cardiac cath 5-6 YR AGO - [place] - NO STENTS (per pt report, this cath not noted in cardiology notes) 2017, NSTEMI. NO INTERVENTION. History of hernia surgery History of hysterectomy History of ovarian cystectomy S/P cervical discectomy Family History Father Family history of stomach cancer Stroke Myocardial infarction Malignant neoplasm of esophagus Stomach cancer Uncle Family history of cancer FAMILY HISTORY OF CANCER - UNCLE - VOCAL [place]DS FAMILY HISTORY OF CANCER - AUNT - ? KIND Throat cancer Grandmother (Maternal) Family history of breast cancer Family history of bone cancer Cancer bone Breast cancer Bone cancer Grandmother Bone cancer Other No pertinent family history Denies family history of Colon cancer Ovarian cancer Prostate cancer Crohn's disease IBD (inflammatory bowel disease) Social History Smoking Status: Current every day smoker packs per day: 2; Cigarettes Per Day: 10; Second Hand Exposure: Yes; Hx Alcohol Use: No Hx Substance Use: Yes Last Used Substance: Days (ago) Last Used Substance Other:: 02/09/20 Preferred Language: French Communication Ability: Effective Visual Impairment: Limited Hearing Ability: Normal Ethylbenzene Converter Operator Required: No Beliefs That Will Affect Care: None marital status: Current Living Situation: Spouse current occupational status: employed 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 Other Information That Helps Us Care for You: No Feels Safe at Home: Yes Safety Concerns: Feels Safe At This Time Childhood Exposure to Second-Hand Smoke: Yes caffeine: Yes (1 cup of coffee) during the past year weight has: other Dental Care, Regularly: No Physical Activity Frequency: Daily Physical Activity Frequency Comment: walking Seatbelt Use: always Sunscreen Use: Yes Review of Systems Review of Systems: All systems reviewed & are unremarkable except as noted in HPI & below Physical Exam Constitutional: WD/WN, vitals as above + ill appearing; no acute distress Eyes: PERRL, conjunctivae normal, anicteric sclerae ENMT: external ear and nose normal, oropharynx normal Neck: trachea midline, no thyromegaly Respiratory: normal respiratory effort, lungs clear to auscultation Cardiovascular: RRR, no murmur, no edema Chest (Breasts): Chest: normal inspection of chest Gastrointestinal (Abdomen): Inspection/Auscultation: normal bowel sounds; abdomen not distended Percussion/Palpation: + abdomen tender (Mild in the periumbilical region without guarding or rebound) and abdomen soft; no hepatosplenomegaly Musculoskeletal: Extremities: extremities normal to inspection; no cyanosis and no clubbing Skin: no rashes, warm and dry Neurologic: moves all extremities and awake; no focal motor deficits Psychiatric: Orientation: alert and oriented x 3 Eye Contact: + fair eye contact Speech: normal rate/rhythm/volume of speech Affect: + flat affect Lymphatic: no lymphedema Results & Data Results & Data ([facility]) Vital Signs (Past 12 Hours) Vital Signs Temp Pulse Pulse Resp BP BP Pulse Ox 04/12/20 09:00 92 H 20 202/100 H 100 04/12/20 07:56 85 16 195/115 H 97 04/12/20 07:26 83 18 190/110 H 97 04/12/20 07:00 89 13 204/118 H 97 04/12/20 06:39 81 15 201/113 H 97 04/12/20 06:30 92 H 15 207/111 H 97 04/12/20 06:00 78 16 206/119 H 97 04/12/20 05:51 83 18 213/132 H 97 04/12/20 05:30 78 16 226/127 H 98 04/12/20 05:00 88 19 220/128 H 97 04/12/20 04:42 37.1 C 88 20 227/151 H 97 Laboratory Results 04/12/20 04/12/20 Range/Units 04:55 04:55 WBC 16.07 H (4.8-10.8) K/uL RBC 5.02 (4.2-5.4) M/uL Hgb 15.3 (12.0-16.0) g/dL Hct 46.2 (37-47) % MCV 92.0 (80-100) fL MCH 30.5 (25-34) pg MCHC 33.1 (32-36) g/dL RDW Std Deviation 43.3 (36.4-46.3) fL RDW Coeff of Jose Luis 12.9 (11.5-14.5) % Plt Count 391 (130-400) K/uL MPV 10.4 (7.4-10.4) fL Immature Gran % (Auto) 0.3 % Neut % (Auto) 73.7 % Lymph % (Auto) 15.2 % Clinton % (Auto) 7.2 % Eos % (Auto) 2.9 % Baso % (Auto) 0.7 % Neut # (Auto) 11.84 H (1.4-6.5) K/uL Lymph # (Auto) 2.45 (1.2-3.4) K/uL Clinton # (Auto) 1.15 H (0.11-0.59) K/uL Eos # (Auto) 0.47 (0-0.5) K/uL Baso # (Auto) 0.11 (0-0.2) K/uL Immature Gran # (Auto) 0.05 H (0.00-0.02) K/uL Sodium 140 (136-145) mmol/L Potassium 3.7 (3.5-5.1) mmol/L Chloride 107 (98-107) mmol/L Carbon Dioxide 23 (21-32) mmol/L Anion Gap 10.0 (3-11) BUN 22 H (7-18) mg/dl Creatinine 0.97 (0.6-1.2) mg/dl Est Cr Clr Drug Dosing 64.5 ml/min Est GFR ( Amer) 76.7 Est GFR (Non-Af Amer) 66.2 BUN/Creatinine Ratio 23.2 H (10-20) Glucose 147 H (70-99) mg/dl Calcium 9.6 (8.5-10.1) mg/dl Total Bilirubin 0.3 (0.2-1) mg/dl AST 13 L (15-37) U/L ALT 19 (12-78) U/L Alkaline Phosphatase 109 (45-117) U/L Troponin I 0.022 (0-0.045) ng/ml Total Protein 8.1 (6.4-8.2) gm/dl Albumin 4.0 (3.4-5.0) gm/dl Globulin 4.1 H (2.5-4.0) gm/dl Albumin/Globulin Ratio 1.0 (0.9-2) ECG Additional Comments: ECG with normal sinus rhythm and left axis deviation, no ischemic changes Code Status & VTE Plan Code Status Full code VTE Prophylaxis Plan VTE Prophylaxis will be ordered: Yes PG Care Time/CCT Total # of Minutes Spent Total Time Spent with Patient: Total time spent is greater than 50% in coordination of care (as documented) at patient's floor/unit and/or counseling patient: Coding Level of Care Code 65213 OBS Care - Level 3 Diagnoses Hypertensive urgency I16.0 Cyclic vomiting syndrome R11.15 HTN (hypertension) I10 CAD (coronary artery disease) I25.10 Hyperlipidemia E78.5 Marijuana dependence F12.20 DVT prophylaxis Z29.9
--- NOTE | 2020-04-12 09:44 | CT Scan Report ---
CT OF THE ABDOMEN AND PELVIS WITHOUT CONTRAST CLINICAL HISTORY: intractable nausea/vomiting,hypertensive urgency COMPARISON STUDY: CT of the abdomen and pelvis March 27, 2019. Abdominal ultrasound March 28, 2019 . Abdominal series February 14, 2020. TECHNIQUE: Axial images of the abdomen and pelvis were obtained without IV contrast. Images were revi ewed in the axial, sagittal, and coronal planes. Automated exposure control was utilized for the marina dy. A dose lowering technique was utilized adhering to the principles of ALARA. FINDINGS: Lung bases are unremarkable. No pneumatosis, free air or portal venous gas is present. No r enal, ureteral or bladder calculi are present. Bladder is mildly distended. There is no hydronephrosi s or hydroureter. Evaluation of the remainder of the abdomen and pelvis is suboptimal on this unenhan eduardo exam. Liver, spleen, adrenal glands and pancreas are unremarkable. There is no biliary or pancrea tic ductal dilatation. There is no peripancreatic or pericholecystic infiltration. No lymphadenopathy is present. The appendix is normal. There is sigmoid diverticulosis without evidence for acute diver vasculitis. There is no ascites. No abscess is present. There are no suspicious osseous lesions. The re is moderate atherosclerotic plaque of the abdominal aorta which is normal in caliber. IMPRESSION: 1. No acute process within the abdomen or pelvis on unenhanced exam. 2. No urinary calculi or hydronephrosis. 3. Colonic diverticulosis without evidence for acute diverticulitis. 4. Mildly distended bladder. ACT 112: Negative or not required by law. Electronically signed by: Flynn Shipley M.D. 04/12/2020 9:43 AM
--- NOTE | 2020-04-12 10:26 | CT Scan Report ---
CT OF THE HEAD WITHOUT CONTRAST CLINICAL HISTORY: hypertensive urgency,vomiting COMPARISON STUDY: Head CT July 17, 2019. MRI of the brain August 18, 2019. CT DOSE: 638.56 mGycm TECHNIQUE: Helical axial images of the head were obtained without IV contrast. Automated exposure con trol was utilized for the study. A dose lowering technique was utilized adhering to the principles o f ALARA. FINDINGS: No acute intracranial hemorrhage, midline shift or mass effect is present. White matter hyp odensities are similar to prior CT and MRI. The ventricular system is unremarkable. The basilar ciste rns are patent. No extra-axial collections are present. There are no findings to suggest acute dural sinus thrombosis or acute territorial infarct. No significant calvarial abnormalities are present. Vi sualized portions of the sinuses and mastoid air cells are clear. IMPRESSION: No acute intracranial findings. No change in appearance of the brain. ACT 112: Negative or not required by law. Electronically signed by: Flynn Shipley M.D. 04/12/2020 10:25 AM
[2020-04-12] MEDS: SODIUM CHLORIDE 0.45 % 1,000 ML IV SCH ×2 (10:40→23:30)
--- NOTE | 2020-04-12 11:14 | Nephrology Consultation ---
Date of Consultation April 12, 2020 Assessment & Plan (1) Hypertensive urgency: * Evaluation for secondary causes of HTN has been unrevealing: preserved kidney function, MRA of renal arteries 01/18 negative for CATRACHITA, normal TSH, normal renin/aldosterone and serum metanephrine * Recent urinalysis + for protein and blood. Will repeat study and order UPCR * Will repeat urine toxicology screen * Agree w/ IV labetolol, vasotec and hydralazine to control BP * Transition to oral medications once emesis has resolved * If needed recommend titrating up catapress or changing to topical nitrate patch * May need to consider adding low dose diuretic +/- aldactone to control BP (2) Cannabinoid hyperemesis syndrome: * Recommend consultation w/ Gastroenterology to determine whether further evaluation is warranted (gastric emptying study?) * Abdominal CT report today: No acute process within the abdoment or pelvis on unenhanced exam. No urinary calculi or hydronephrosis. Diverticulosis present without diverticulitis History of Present Illness Reason for Consultation: Hypertension Attending Physician: Leonie Fairbanks MD History of Present Illness Mrs. Velasquez is a 55 year old white female who is seen at the request of Dr. Fairbanks for evaluation of hypertension. Medical records in the EMR were reviewed today and are summarized as follows: Mrs. Velasquez has a h/o cyclic vomiting. She reports that she treats this by smoking marijuana that she obtains from a friend on a weekly basis. Her medical history is also significant for HTN and several recent hospitalizations for recurrent emesis complicated by hypertensive urgency. As an outpatient Mrs. Velasquez has undergone Nephrology evaluation by Dr. Issa. Laboratory studies 03/23 revealed normal TSH, renin, aldosterone and serum metanephrine. 01/18 MRA of renal arteries was negative for CATRACHITA. 12/20 carotid doppler revealed < 50% ICA stenosis. 04/[address] was negative for kidney stone, hydronephrosis or adrenal lesion. Office BP's have been 110 - 130 mmHg on combination of oral and topical medications. Kidney function has been stable despite Cozaar 100 mg daily. Mrs. Velasquez reports that Friday was her last use of marijuana. She was seen twice in the ED over the weekend due to cyclic vomiting and hypertensive urgency. This morning Mrs. Velasquezs again w/ recurrent emesis but this time also suffered hematemesis. She returned to the ED. SBP has been 190 - 220 mmHg. She is now admitted for medical evaluation. Mrs. Velasquez acknowledges ongoing weekly use of marijuana for management of cyclic vomiting. She denies the recent use of cough/cold preparations, herbal supplements or injectable drugs. PMH negative for CKD or adrenal disorder. Positive for cannabinoid hyperemesis syndrome, PRES, TIA, thyroid nodules, Takasubo cardiomyopathy, emphysema Outpatient antihypertensive regimen has been metoprolol 100 mg BID, amlodipine 5 mg qD, losartan 100 mg qD, catapress TTS-1 (0.1mg/day). Patient acknowledges that she is unable to keep down her oral medications during emesis events. Catapress was recently added to prevent spikes in BP when oral agents are held. Allergies Allergy/AdvReac Type Severity Reaction Status Date / Time napoles Allergy Intermediate Hives Verified 04/12/20 04:53 doxycycline Allergy Intermediate hives and Verified 04/12/20 04:53 vomitting Iodinated Contrast Media Allergy Intermediate GIANT Verified 04/12/20 04:53 HIVES , VOMITTING, BODY FEELS HOT loperamide Allergy Intermediate Hives and Verified 04/12/20 04:53 vomiting meperidine Allergy Intermediate HIVES, Verified 04/12/20 04:53 VOMITING prochlorperazine Allergy Intermediate N/V, Verified 04/12/20 04:53 ITCHINESS strawberry Allergy Intermediate HIVES Verified 04/12/20 04:53 tomato Allergy Intermediate HIVES Verified 04/12/20 04:53 iodine Allergy . Verified 04/12/20 04:53 latex AdvReac Mild RASH Verified 04/12/20 04:53 Home Medications Home Medications Medication Instructions Recorded Confirmed Type multivitamin 1 tab PO QAM 12/16/18 04/12/20 History losartan [Cozaar] 100 mg PO QAM 07/17/19 04/12/20 History metoprolol succinate [Toprol XL] 100 mg PO BID 07/17/19 04/12/20 History promethazine 25 mg PO Q6H PRN 07/17/19 04/12/20 History clonidine 0.1 mg/24 hr weekly 1 patch TOPICAL WK #4 ea 08/05/19 04/12/20 Rx transdermal patch ondansetron 4 mg disintegrating 4 mg PO Q6H PRN #30 tab 10/18/19 04/12/20 Rx tablet clopidogrel 75 mg tablet 75 mg PO QAM #90 tab 01/04/20 04/12/20 Rx amlodipine 5 mg tablet 5 mg PO DAILY #30 tab 02/15/20 04/12/20 Rx sertraline 100 mg tablet 100 mg PO HS #90 tab 02/29/20 04/12/20 Rx atorvastatin 80 mg tablet 80 mg PO HS #90 tab 04/04/20 04/12/20 Rx capsaicin 1 applic TOPICAL QID #25 g 04/09/20 04/12/20 Rx amitriptyline 25 mg PO HS #30 tab 04/11/20 04/12/20 Rx Patient History Medical History Abnormal MRI of head Acute UTI Anxiety disorder CAD (coronary artery disease) Mild-moderate non-obstructive Carotid stenosis < 50% stenosis B/L per US 12/16/18 Cervical disc disorder Cervical radiculopathy Congestive heart failure, acute 06/2017, admitted [facility]. Ruled 2/2 Takasubo CM. Cyclic vomiting syndrome Degenerative disc disease, cervical Diverticulitis Diverticulosis Gastritis Grief reaction Hematuria History of diverticulitis of colon History of gastritis History of hypotension History of myocardial infarction HTN (hypertension) Hx-TIA (transient ischemic attack) Hypercalcemia Hyperlipidemia Hypertension Kidney infection CURRENT , RIGHT (ED [facility] LAST WEEK). JUST FINISHED ABX. X4 INFECTION OVER LAST 2 YRS Marijuana dependence Multiple thyroid nodules New onset seizure 07/17/2019 NSTEMI (non-ST elevated myocardial infarction) 2017 [facility]. Cath performed showed mild to moderate non-obstructive CAD. PRES (posterior reversible encephalopathy syndrome) Pulmonary emphysema Renal artery stenosis Takotsubo cardiomyopathy 2017. Admitted [facility], full cardiac workup including cath. EF at the time 40%, now resolved to 60-65% on echo 2018. Transient cerebrovascular ischemia Vitamin D deficiency Surgical History H/O cervical spine surgery ACDF C4-7 Dr. [place] History of cardiac cath 5-6 YR AGO - [place] - NO STENTS (per pt report, this cath not noted in cardiology notes) 2017, NSTEMI. NO INTERVENTION. History of hernia surgery History of hysterectomy History of ovarian cystectomy S/P cervical discectomy Family History Father Family history of stomach cancer Stroke Myocardial infarction Malignant neoplasm of esophagus Stomach cancer Uncle Family history of cancer FAMILY HISTORY OF CANCER - UNCLE - VOCAL CORDS FAMILY HISTORY OF CANCER - AUNT - ? KIND Throat cancer Grandmother (Maternal) Family history of breast cancer Family history of bone cancer Cancer bone Breast cancer Bone cancer Grandmother Bone cancer Other No pertinent family history Denies family history of Colon cancer Ovarian cancer Prostate cancer Crohn's disease IBD (inflammatory bowel disease) Social History Smoking Status: Current every day smoker packs per day: 2; Cigarettes Per Day: 10; Second Hand Exposure: Yes; Hx Alcohol Use: No Hx Substance Use: Yes Last Used Substance: Days (ago) Last Used Substance Other:: 02/09/20 Preferred Language: Citizen Of [place] Communication Ability: Effective Visual Impairment: Limited Hearing Ability: Normal [place] Paralegal Required: No Beliefs That Will Affect Care: None marital status: Current Living Situation: Spouse current occupational status: employed 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 Feels Safe at Home: Yes Childhood Exposure to Second-Hand Smoke: Yes caffeine: Yes (1 cup of coffee) during the past year weight has: other Dental Care, Regularly: No Physical Activity Frequency: Daily Physical Activity Frequency Comment: walking Seatbelt Use: always Sunscreen Use: Yes Review of Systems Constitutional: no fever Eyes: no problem reported Ear, Nose, Mouth, Throat: no problem reported Respiratory: no dyspnea Cardiovascular: no chest pain, no palpitations and no edema Gastrointestinal: + nausea and + vomiting; no abdominal pain and no diarrhea/loose stools Genitourinary: no dysuria and no hematuria Musculoskeletal: no back pain Integumentary: no rash Neurologic: no dizziness and no confusion Physical Exam Constitutional: not in distress Eyes: PERRL, conjunctivae normal, anicteric sclerae ENMT: external ear and nose normal, oropharynx normal Neck: trachea midline, no thyromegaly (no carotid artery bruit) Respiratory: normal respiratory effort, lungs clear to auscultation Cardiovascular: RRR, no murmur, no edema (symmetric radial pulses. No radial femoral pulse delay) Gastrointestinal (Abdomen): normal bowel sounds, soft, nontender, no hepatosplenomegaly (no abdominal bruit) Musculoskeletal: Extremities: no cyanosis and no clubbing Skin: no rashes, warm and dry Neurologic: awake; not confused Results & Data ([facility]) Vital Signs (Past 12 Hours) Vital Signs Temp Pulse Pulse Resp BP BP Pulse Ox 04/12/20 10:48 37.2 C 81 18 190/102 H 95 04/12/20 10:27 95 H 04/12/20 09:21 92 H 18 197/87 H 99 04/12/20 09:00 92 H 20 202/100 H 100 04/12/20 07:56 85 16 195/115 H 97 04/12/20 07:26 83 18 190/110 H 97 04/12/20 07:00 89 13 204/118 H 97 04/12/20 06:39 81 15 201/113 H 97 04/12/20 06:30 92 H 15 207/111 H 97 04/12/20 06:00 78 16 206/119 H 97 04/12/20 05:51 83 18 213/132 H 97 04/12/20 05:30 78 16 226/127 H 98 04/12/20 05:00 88 19 220/128 H 97 04/12/20 04:42 37.1 C 88 20 227/151 H 97 Laboratory Results Laboratory Tests 03/24/20 03/24/20 03/24/20 07:52 07:53 07:53 WBC Hgb Hct Plt Count Sodium Potassium Chloride Carbon Dioxide BUN Creatinine Total Bilirubin AST ALT Albumin Lipase Renin Activity 1.15 Aldosterone 6 Plasma Metanephrine 37 Urine Color Urine Appearance Urine pH Ur Specific [place] Urine Protein Urine Blood Urine RBC (Auto) 04/09/20 04/09/20 04/12/20 10:00 10:10 04:55 WBC 16.07 H Hgb 15.3 Hct 46.2 Plt Count 391 Sodium Potassium Chloride Carbon Dioxide BUN Creatinine Total Bilirubin AST ALT Albumin Lipase 139 Renin Activity Aldosterone Plasma Metanephrine Urine Color Yellow Urine Appearance Clear Urine pH 5.5 Ur Specific [place] 1.018 Urine Protein 2+ H Urine Blood 3+ H Urine RBC (Auto) 10-30 H 04/12/20 04:55 WBC Hgb Hct Plt Count Sodium 140 Potassium 3.7 Chloride 107 Carbon Dioxide 23 BUN 22 H Creatinine 0.97 Total Bilirubin 0.3 AST 13 L ALT 19 Albumin 4.0 Lipase Renin Activity Aldosterone Plasma Metanephrine Urine Color Urine Appearance Urine pH Ur Specific [place] Urine Protein Urine Blood Urine RBC (Auto) PG Care Time/CCT Total # of Minutes Spent Total Time Spent with Patient: Total time spent is greater than 50% in coordination of care (as documented) at patient's floor/unit and/or counseling patient: Coding Level of Care Code 34839 Inpt Consult Level 5 Diagnoses Hypertensive urgency I16.0 Cannabinoid hyperemesis syndrome F12.988
[2020-04-12] MEDS: LOSARTAN POTASSIUM 50 MG TAB PO SCH (11:15)
[2020-04-12] MEDS: CLOPIDOGREL BISULFATE 75 MG TAB PO SCH (11:16)
[2020-04-12] MEDS: METOPROLOL SUCC 50MG EXT REL TAB PO SCH ×2 (11:16→21:11)
[2020-04-12] MEDS: AMLODIPINE BESYLATE 5 MG TAB PO SCH (11:16)
[2020-04-12 11:35] LABS: Amphetamines+Metham, Urine Neg (Neg); Barbiturates, Urine Neg (Neg); Benzodiazepine, Urine Neg (Neg); Cocaine, Urine Neg (Neg); MDMA (Ecstacy), Urine Neg (Neg); Methadone, Urine Neg (Neg); Opiate, Urine Neg (Neg); Phencyclidine, Urine Neg (Neg)
[2020-04-12 12:05] LABS: Creatinine Urine Random 30.4 mg/dl; Total Protein Urine Random 29.9 mg/dl (0-11.9)
[2020-04-12 12:19] LABS: Appearance Urine Clear (Clear); Bacteria Urine Automated Negative (Negative); Bilirubin Urine Negative (Negative); Blood Urine 2+ (Negative); Cast Urine Automated 0 /lpf (0-5); Color Urine Yellow; Glucose Urine UA Negative (Negative); Ketones Urine Negative (Negative); Leukocyte Esterase Urine Negative (Negative); Nitrite Urine Negative (Negative); Protein Urine 1+ (Negative); Specific Gravity Urine 1.013 (1.000-1.030); Urobilinogen Urine Negative (Negative); WBC Urine Automated 0 /hpf (0-5)
--- NOTE | 2020-04-12 15:21 | Gastrointestinal Consultation ---
Date of Consultation April 12, 2020 Assessment & Plan (1) Nausea and vomiting: Potential etiologies include related to hypertensive emergency vs cyclic vomiting syndrome vs cannabinoid hyperemesis syndrome. Patient has had a thorough GI work-up between Dr. Rodriguez of [facility] and [facility]. No GI pathology has been demonstrated on EGD, US, CT scan of abd/pelvis, Celiac testing, & gastric emptying study. -To ensure no other organic GI pathology, would recommend a biliary work-up and upper GI study with SBFT. -Would continue to treat/evaluate hypertension. -Recommend marijuana cessation. Okay to use topical Capsaicin to be applied to the periumbilical region four times daily. -Protonix 40 mg BID. Can consider adding Carafate 1 gm four times daily before meals and bedtime x 10 days. H/H stable. Would defer endoscopic evaluation. Previous GES was normal as well so repeating would likely be low-yield, though could consider implementing a gastroparesis diet empirically. -Okay to use Zofran 8 mg TID. -Continue Elavil 25 mg daily. Can titrate up if needed. Supervising Physician Co-Signing Physician Notes Agree with MARY Roe Abd: Soft, NT, ND, +BS Continue current therapy Symptoms most likely secondary to hypertensive crisis versus continued marijuana use (Cannabis hyperemesis syndrome) Continue current therapy History of Present Illness Attending Physician: Leonie Fairbanks MD History of Present Illness Patient is a 55 yo female readmitted after presenting to the hospital less than 24 hours after discharge for hypertensive emergency, nausea, & vomiting. She has been evaluated at [facility] 3 times in the past week for these symptoms. She has had an extensive outpatient GI evaluation dating back to [address] Rodriguez of [facility] and then to [facility] for a second opinion. She has been following with nephrology as an outpatient due to her hypertension. Throughout the years, she has undergone many tests to evaluate her cyclic vomiting. She has had multiple unremarkable CT scans of the abdomen/pelvis, including one performed during this admission. She has had CT scans and MRIs of the head, most recently with a CT scan of the head during this admission without remarkable findings. She has had abdominal ultrasounds without significant findings. She had a normal gastric emptying study in 2017. EGD [place] [address] Rodriguez without explanation of her symptoms. She has tried multiple PPI therapies, H2 blockers, & anti emetics. Most recently, 2 days ago she was placed on Elavil for cyclic vomiting. She is a marijuana user and tox reports tested positive during her most recent admission. Last marijuana use was Friday04/07/20. She was discharged yesterday after experiencing improvement in her BP, nausea, and vomiting. She notes that she returned to the ED after her BP spiked, causing her a headache, dizziness, and she experienced subsequent nausea/vomiting. Since admission to the hospital, her BP has been gradually reduced from the >200 SBP to 98/64. She is no longer experiencing nausea & vomiting. H/H is normal at 15.3/46.2. Allergies Allergy/AdvReac Type Severity Reaction Status Date / Time napoles Allergy Intermediate Hives Verified 04/12/20 04:53 doxycycline Allergy Intermediate hives and Verified 04/12/20 04:53 vomitting Iodinated Contrast Media Allergy Intermediate GIANT Verified 04/12/20 04:53 HIVES , VOMITTING, BODY FEELS HOT loperamide Allergy Intermediate Hives and Verified 04/12/20 04:53 vomiting meperidine Allergy Intermediate HIVES, Verified 04/12/20 04:53 VOMITING prochlorperazine Allergy Intermediate N/V, Verified 04/12/20 04:53 ITCHINESS strawberry Allergy Intermediate HIVES Verified 04/12/20 04:53 tomato Allergy Intermediate HIVES Verified 04/12/20 04:53 iodine Allergy . Verified 04/12/20 04:53 latex AdvReac Mild RASH Verified 04/12/20 04:53 Home Medications Home Medications Medication Instructions Recorded Confirmed Type multivitamin 1 tab PO QAM 12/16/18 04/12/20 History losartan [Cozaar] 100 mg PO QAM 07/17/19 04/12/20 History metoprolol succinate [Toprol XL] 100 mg PO BID 07/17/19 04/12/20 History promethazine 25 mg PO Q6H PRN 07/17/19 04/12/20 History clonidine 0.1 mg/24 hr weekly 1 patch TOPICAL WK #4 ea 08/05/19 04/12/20 Rx transdermal patch ondansetron 4 mg disintegrating 4 mg PO Q6H PRN #30 tab 10/18/19 04/12/20 Rx tablet clopidogrel 75 mg tablet 75 mg PO QAM #90 tab 01/04/20 04/12/20 Rx amlodipine 5 mg tablet 5 mg PO DAILY #30 tab 02/15/20 04/12/20 Rx sertraline 100 mg tablet 100 mg PO HS #90 tab 02/29/20 04/12/20 Rx atorvastatin 80 mg tablet 80 mg PO HS #90 tab 04/04/20 04/12/20 Rx capsaicin 1 applic TOPICAL QID #25 g 04/09/20 04/12/20 Rx amitriptyline 25 mg PO HS #30 tab 04/11/20 04/12/20 Rx Patient History Medical History Abnormal MRI of head Acute UTI Anxiety disorder CAD (coronary artery disease) Mild-moderate non-obstructive Carotid stenosis < 50% stenosis B/L per US 12/16/18 Cervical disc disorder Cervical radiculopathy Congestive heart failure, acute 06/2017, admitted [facility]. Ruled 2/2 Takasubo CM. Cyclic vomiting syndrome Degenerative disc disease, cervical Diverticulitis Diverticulosis Gastritis Grief reaction Hematuria History of diverticulitis of colon History of gastritis History of hypotension History of myocardial infarction HTN (hypertension) Hx-TIA (transient ischemic attack) Hypercalcemia Hyperlipidemia Hypertension Kidney infection CURRENT , RIGHT (ED [facility] LAST WEEK). JUST FINISHED ABX. X4 INFECTION OVER LAST 2 YRS Marijuana dependence Multiple thyroid nodules New onset seizure 07/17/2019 NSTEMI (non-ST elevated myocardial infarction) 2017 [facility]. Cath performed showed mild to moderate non-obstructive CAD. PRES (posterior reversible encephalopathy syndrome) Pulmonary emphysema Renal artery stenosis Takotsubo cardiomyopathy 2017. Admitted [facility], full cardiac workup including cath. EF at the time 40%, now resolved to 60-65% on echo 2018. Transient cerebrovascular ischemia Vitamin D deficiency Surgical History H/O cervical spine surgery ACDF C4-7 Dr. [place] History of cardiac cath 5-6 YR AGO - [place] - NO STENTS (per pt report, this cath not noted in cardiology notes) 2017, NSTEMI. NO INTERVENTION. History of hernia surgery History of hysterectomy History of ovarian cystectomy S/P cervical discectomy Family History Father Family history of stomach cancer Stroke Myocardial infarction Malignant neoplasm of esophagus Stomach cancer Uncle Family history of cancer FAMILY HISTORY OF CANCER - UNCLE - VOCAL CORDS FAMILY HISTORY OF CANCER - AUNT - ? KIND Throat cancer Grandmother (Maternal) Family history of breast cancer Family history of bone cancer Cancer bone Breast cancer Bone cancer Grandmother Bone cancer Other No pertinent family history Denies family history of Colon cancer Ovarian cancer Prostate cancer Crohn's disease IBD (inflammatory bowel disease) Social History Smoking Status: Current every day smoker packs per day: 2; Cigarettes Per Day: 10; Second Hand Exposure: Yes; Hx Alcohol Use: No Hx Substance Use: Yes Last Used Substance: Days (ago) Last Used Substance Other:: 02/09/20 Preferred Language: Romanian Communication Ability: Effective Visual Impairment: Limited Hearing Ability: Normal Ceramics Technician Required: No Beliefs That Will Affect Care: None marital status: Current Living Situation: Spouse current occupational status: employed 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 Feels Safe at Home: Yes Childhood Exposure to Second-Hand Smoke: Yes caffeine: Yes (1 cup of coffee) during the past year weight has: other Dental Care, Regularly: No Physical Activity Frequency: Daily Physical Activity Frequency Comment: walking Seatbelt Use: always Sunscreen Use: Yes Review of Systems Constitutional: no fever and no chills Eyes: no problem reported Respiratory: no cough and no dyspnea Cardiovascular: no chest pain Gastrointestinal: nausea & vomiting have resolved at present Musculoskeletal: no problem reported Neurologic: + headache(s) Psychiatric: no problem reported Hematologic / Lymphatic: no unexplained weight loss Physical Exam Constitutional: well developed and well nourished Eyes: no conjunctival abnormality Neck: normal visual inspection Respiratory: normal respiratory effort Cardiovascular: Extremities: no edema Gastrointestinal (Abdomen): Inspection/Auscultation: abdomen normal to inspec tion Skin: no rashes Neurologic: Speech / Cognition: normal speech Psychiatric: A+Ox3, euthymic affect Results & Data ([facility]) Vital Signs (Past 12 Hours) Vital Signs Temp Pulse Pulse Resp BP BP Pulse Ox 04/12/20 14:57 37.2 C 85 16 98/64 L 95 04/12/20 12:34 37 C 101 H 18 165/93 H 95 09/09/20 10:48 37.2 C 81 18 190/102 H 95 04/12/20 10:27 95 H 04/12/20 09:21 92 H 18 197/87 H 99 04/12/20 09:00 92 H 20 202/100 H 100 04/12/20 07:56 85 16 195/115 H 97 04/12/20 07:26 83 18 190/110 H 97 04/12/20 07:00 89 13 204/118 H 97 04/12/20 06:39 81 15 201/113 H 97 04/12/20 06:30 92 H 15 207/111 H 97 04/12/20 06:00 78 16 206/119 H 97 04/12/20 05:51 83 18 213/132 H 97 04/12/20 05:30 78 16 226/127 H 98 04/12/20 05:00 88 19 220/128 H 97 04/12/20 04:42 37.1 C 88 20 227/151 H 97 PG Care Time/CCT Total # of Minutes Spent Total Time Spent with Patient: Total time spent is greater than 50% in coordination of care (as documented) at patient's floor/unit and/or counseling patient: Coding Level of Care Code 46170 Inpt Consult Level 4 Diagnoses Nausea and vomiting R11.2
[2020-04-12] MEDS: CHECK CLONIDINE PATCH PLACEMENT SCH (16:16)
--- NOTE | 2020-04-12 17:01 | Ultrasound Report ---
ABDOMINAL ULTRASOUND, RIGHT UPPER QUADRANT HISTORY: Nausea and vomiting. COMPARISON: CT of the abdomen and pelvis performed earlier today and right upper quadrant ultrasound March 28, 2019 FINDINGS: Hepatic echogenicity is normal. No hepatic lesions are identified. There is no biliary duct al dilatation. No gallstones are noted. There is no gallbladder wall thickening. The pancreas is unre markable. There is no right hydronephrosis. IMPRESSION: No significant abnormality identified within the right upper quadrant. ACT 112: Negative or not required by law. Electronically signed by: Flynn Shipley M.D. 04/12/2020 4:59 PM
--- NOTE | 2020-04-12 19:16 | Electrocardiogram Report ---
Test Reason : Blood Pressure : / mmHG Vent. Rate : 080 BPM Atrial Rate : 080 BPM P-R Int : 200 ms QRS Dur : 090 ms QT Int : 388 ms P-R-T Axes : 055 -34 043 degrees QTc Int : 447 ms Normal sinus rhythm Possible Left atrial enlargement Left axis deviation Abnormal ECG When compared with ECG of 09-APR-2020 09:55, Premature ventricular complexes are no longer Present Premature atrial complexes are no longer Present Confirmed by Pako Holland ([id number] on 04/12/2020 7:16:20 PM Referred By: REFERRED SELF Confirmed By:Tereso Holland
[2020-04-12] MEDS: AMITRIPTYLINE HCL 25 MG TAB PO SCH (21:11)
[2020-04-12] MEDS: SERTRALINE HCL 100 MG TABLET PO SCH (21:11)
[2020-04-12] MEDS: ATORVASTATIN 40 MG TAB PO SCH (21:11)
[2020-04-12] MEDS: HEPARIN SOD 5,000 UNIT/0.5 ML VIAL SQ SCH (21:12)
--- NOTE | 2020-04-12 23:13 | Emergency Department Note ---
Impression & Plan Hypertensive urgency, Vomiting ED Provider Note NAME: ONEL MONTOYA AGE: 55 SEX: F ARRIVES VIA: Family Vehicle INFORMANT: Patient ED PROVIDER(S): Kierra Worley DO CHIEF COMPLAINT: Vomiting PLAN: Disposition: Admitted to the [facility] Condition: Stable MEDICAL DECISION MAKING: This is a 55-year-old female patient with a history of hypertensive urgency who presents to the emergency department with intractable vomiting and elevated blood pressures. Patient was just discharged from the hospital for the same. The patient states that she went home and follow the discharge instructions but awoke from sleep with severe vomiting. Upon presentation to the emergency depa rtment, the patient's blood pressure was significantly elevated and she was vomiting. She received IV labetalol and IV hydralazine along with IV Zofran in an effort to control the vomiting and blood pressure. This was unsuccessful. She continued to feel quite uncomfortable and blood pressure was not well controlled. The case was discussed with the [facility] and they will evaluate for further management. Triage Nursing notes reviewed and agree them. Prior medical records reviewed Vital Signs: reviewed and remarkable for severe hypertension Differential diagnosis: Hypertensive urgency, medication side effects, cannabinoid use, anxiety, foodborne illness, intracranial hemorrhage ER treatment provided: IV Zofran, IV hydralazine, IV labetalol x2 Diagnostics interpreted by me: ECG: Normal sinus rhythm at a rate of [address] segment elevation or signs of ischemia. There is no ectopy Cardiac Monitoring: Normal sinus rhythm at a rate of 82 Laboratory studies: See below HPI: 55/F arrives for evaluation of vomiting. This is a 55-year-old female patient who presents to the emergency department with intractable vomiting. The patient states that she was discharged from this hospital this afternoon and was feeling well throughout the evening. She ate pork and sauerkraut for dinner. She went to sleep and was up and down throughout the night but around 4 AM felt significantly nauseated and began to vomit.. The patient states that she feels extremely wiped out and has a very high blood pressure. ROS: See above HPI for pertinent positives & negatives. A total of 10 systems reviewed and were otherwise negative. PAST MEDICAL HISTORY:See Below PAST SURGICAL HISTORY:See Below FAMILY HISTORY:See Below SOCIAL HISTORY:See Below HOME MEDICATIONS:See list ALLERGIES:See list VITALS:See Below PHYSICAL EXAMINATION: HEENT: Head - normocephalic and atraumatic Pupils are equal, round, and reactive to light. Extraocular eye muscles are intact, and sclera are anicteric. Nose - moist nasal mucosa without discharge. Mouth - moist buccal mucosa. Oropharynx is nonerythematous and there is no tonsillar exudate or edema noted. Neck: Supple; no JVD, nuchal rigidity, cervical lymphadenopathy. Heart: Regular rate and rhythm. There is a normal S1 and S2 with no murmurs, clicks, or gallops appreciated. Lungs: Clear to auscultation bilaterally with no wheezes, rales, or rhonchi. Abdomen: Soft, completely nontender, nondistended, with good bowel sounds. There are no palpable pulsatile masses or hepatosplenomegaly. There is no guarding, rigidity, or rebound noted. Extremities: No evidence of cyanosis, clubbing, or edema. There are easily palpable peripheral pulses. Skin: warm and dry with good turgor and no rashes. ED COURSE: Times/Reassessments: 0515 the patient was evaluated in room C6. A complete history and physical was performed. An order was placed for continuous cardiac monitoring. The patient was in a normal sinus rhythm at a rate of 82. A twelve-lead EKG was obtained as described above. The patient was given a dose of IV Zofran and IV hydralazine in an effort to control the nausea/vomiting as well as significant hypertension. The patient rested only for a short period of time and the blood pressure spiked up again. She then was given a dose of IV labetalol. This brought the blood pressure down again slightly but the patient's blood pressure spiked again and she was again nauseated and vomiting. The patient was then given another dose of IV labetalol in an effort to control blood pressure. I discussed the case with the [facility] hospitalist and they will evaluate for further manage ment. Procedures: IV hydralazine IV Zofran IV labetalol x2 Kierra Worley DO Past Med/Surg History Medical History Abnormal MRI of head Acute UTI Anxiety disorder CAD (coronary artery disease) Mild-moderate non-obstructive Carotid stenosis < 50% stenosis B/L per US 12/16/18 Cervical disc disorder Cervical radiculopathy Congestive heart failure, acute 06/2017, admitted [facility]. Ruled / Takasubo CM. Cyclic vomiting syndrome Degenerative disc disease, cervical Diverticulitis Diverticulosis Gastritis Grief reaction Hematuria History of diverticulitis of colon History of gastritis History of hypotension History of myocardial infarction HTN (hypertension) Hx-TIA (transient ischemic attack) Hypercalcemia Hyperlipidemia Hypertension Kidney infection CURRENT , RIGHT (ED [facility] LAST WEEK). JUST FINISHED ABX. X4 INFECTION OVER LAST 2 YRS Marijuana dependence Multiple thyroid nodules New onset seizure 07/17/2019 NSTEMI (non-ST elevated myocardial infarction) 2017 [facility]. Cath performed showed mild to moderate non-obstructive CAD. PRES (posterior reversible encephalopathy syndrome) Pulmonary emphysema Renal artery stenosis Takotsubo cardiomyopathy 2017. Admitted [facility], full cardiac workup including cath. EF at the time 40%, now resolved to 60-65% on echo 2018. Transient cerebrovascular ischemia Vitamin D deficiency Surgical History H/O cervical spine surgery ACDF C4-7 Dr. [place] History of cardiac cath 5-6 YR AGO - [place] - NO STENTS (per pt report, this cath not noted in cardiology notes) 2017, NSTEMI. NO INTERVENTION. History of hernia surgery History of hysterectomy History of ovarian cystectomy S/P cervical discectomy Family History Father Family history of stomach cancer Stroke Myocardial infarction Malignant neoplasm of esophagus Stomach cancer Uncle Family history of cancer FAMILY HISTORY OF CANCER - UNCLE - [employer] FAMILY HISTORY OF CANCER - AUNT - ? KIND Throat cancer Grandmother (Maternal) Family history of breast cancer Family history of bone cancer Cancer bone Breast cancer Bone cancer Grandmother Bone cancer Other No pertinent family history Denies family history of Colon cancer Ovarian cancer Prostate cancer Crohn's disease IBD (inflammatory bowel disease) Social History Smoking Status: Current every day smoker packs per day: 2; Cigarettes Per Day: 10; Second Hand Exposure: Yes; Hx Alcohol Use: No Hx Substance Use: Yes Last Used Substance: Days (ago) Last Used Substance Other:: 02/09/20 Preferred Language: Vietnamese Communication Ability: Effective Visual Impairment: Limited Hearing Ability: Normal District Sales Representative Required: No Beliefs That Will Affect Care: None marital status: Current Living Situation: Spouse current occupational status: employed current occupation: [employer] Feels Safe at Home: Yes Childhood Exposure to Second-Hand Smoke: Yes caffeine: Yes (1 cup of coffee) during the past year weight has: other Dental Care, Regularly: No Physical Activity Frequency: Daily Physical Activity Frequency Comment: walking Seatbelt Use: always Sunscreen Use: Yes Allergies Allergies Allergy/AdvReac Type Severity Reaction Status Date / Time napoles Allergy Intermediate Hives Verified 04/12/20 04:53 doxycycline Allergy Intermediate hives and Verified 04/12/20 04:53 vomitting Iodinated Contrast Media Allergy Intermediate GIANT Verified 04/12/20 04:53 HIVES , VOMITTING, BODY FEELS HOT loperamide Allergy Intermediate Hives and Verified 04/12/20 04:53 vomiting meperidine Allergy Intermediate HIVES, Verified 04/12/20 04:53 VOMITING prochlorperazine Allergy Intermediate N/V, Verified 04/12/20 04:53 ITCHINESS strawberry Allergy Intermediate HIVES Verified 04/12/20 04:53 tomato Allergy Intermediate HIVES Verified 04/12/20 04:53 iodine Allergy . Verified 04/12/20 04:53 latex AdvReac Mild RASH Verified 04/12/20 04:53 Home Meds Home Medications Medication Instructions Recorded Confirmed multivitamin 1 tab PO QAM 12/16/18 04/12/20 losartan [Cozaar] 100 mg PO QAM 07/17/19 04/12/20 metoprolol succinate [Toprol XL] 100 mg PO BID 07/17/19 04/12/20 promethazine 25 mg PO Q6H PRN 07/17/19 04/12/20 Previous Rx's Medication Instructions Recorded clonidine 0.1 mg/24 hr weekly 1 patch TOPICAL WK #4 ea 08/05/19 transdermal patch ondansetron 4 mg disintegrating 4 mg PO Q6H PRN #30 tab 10/18/19 tablet clopidogrel 75 mg tablet 75 mg PO QAM #90 tab 01/04/20 amlodipine 5 mg tablet 5 mg PO DAILY #30 tab 02/15/20 sertraline 100 mg tablet 100 mg PO HS #90 tab 02/29/20 atorvastatin 80 mg tablet 80 mg PO HS #90 tab 04/04/20 capsaicin 1 applic TOPICAL QID #25 g 04/09/20 amitriptyline 25 mg PO HS #30 tab 04/11/20 Results & Data (ED) Vital Signs Vital Signs - 24 hr 04/12/20 04:42 04/12/20 05:00 04/12/20 05:30 Temperature 37.1 C Temperature Source Oral Pulse Rate 88 88 78 Pulse Rate [Finger] Pulse Rate from SpO2 Sensor Respiratory Rate 20 19 16 Respiratory Effort / Characteristics Non-Labored Spontaneous Respiratory Depth Normal Respiratory Pattern Regular Blood Pressure 227/151 H 220/128 H 226/127 H Blood Pressure [Left Arm] Blood Pressure Mean 176 133 148 Blood Pressure Mean [Left Arm] Blood Pressure Position Sitting Pulse Oximetry 97 97 98 Oxygen Delivery Method Room Air Sepsis Recent Fever Within 48 Hours No Sepsis New/Unexplained Change in Mental Status N/A Sepsis Action Taken by Nursing No Action Required 04/12/20 05:32 04/12/20 05:51 04/12/20 06:00 Temperature Temperature Source Pulse Rate 83 78 Pulse Rate [Finger] Pulse Rate from SpO2 Sensor Respiratory Rate 18 16 Respiratory Effort / Characteristics Respiratory Depth Respiratory Pattern Blood Pressure 213/132 H 206/119 H Blood Pressure [Left Arm] Blood Pressure Mean 173 140 Blood Pressure Mean [Left Arm] Blood Pressure Position Pulse Oximetry 97 97 Oxygen Delivery Method Room Air Sepsis Recent Fever Within 48 Hours Sepsis New/Unexplained Change in Mental Status Sepsis Action Taken by Nursing 04/12/20 06:30 04/12/20 06:39 04/12/20 07:00 Temperature Temperature Source Pulse Rate 92 H 81 89 Pulse Rate [Finger] Pulse Rate from SpO2 Sensor 90 80 86 Respiratory Rate 15 15 13 Respiratory Effort / Characteristics Respiratory Depth Respiratory Pattern Blood Pressure 207/111 H 201/113 H 204/118 H Blood Pressure [Left Arm] Blood Pressure Mean 145 129 145 Blood Pressure Mean [Left Arm] Blood Pressure Position Pulse Oximetry 97 97 97 Oxygen Delivery Method Sepsis Recent Fever Within 48 Hours Sepsis New/Unexplained Change in Mental Status Sepsis Action Taken by Nursing 04/12/20 07:26 04/12/20 07:56 04/12/20 09:00 Temperature Temperature Source Pulse Rate Pulse Rate [Finger] 83 85 92 H Pulse Rate from SpO2 Sensor Respiratory Rate 18 16 20 Respiratory Effort / Characteristics Non-Labored Respiratory Depth Normal Respiratory Pattern Blood Pressure Blood Pressure [Left Arm] 190/110 H 195/115 H 202/100 H Blood Pressure Mean Blood Pressure Mean [Left Arm] 136 141 134 Blood Pressure Position Pulse Oximetry 97 97 100 Oxygen Delivery Method Sepsis Recent Fever Within 48 Hours Sepsis New/Unexplained Change in Mental Status Sepsis Action Taken by Nursing Laboratory Data Result diagrams: 04/12/20 04:55 04/12/20 04:55 Lab Results 04/12/20 04/12/20 Range/Units 04:55 04:55 WBC 16.07 H (4.8-10.8) K/uL RBC 5.02 (4.2-5.4) M/uL Hgb 15.3 (12.0-16.0) g/dL Hct 46.2 (37-47) % MCV 92.0 (80-100) fL MCH 30.5 (25-34) pg MCHC 33.1 (32-36) g/dL RDW Std Deviation 43.3 (36.4-46.3) fL RDW Coeff of Jose Luis 12.9 (11.5-14.5) % Plt Count 391 (130-400) K/uL MPV 10.4 (7.4-10.4) fL Immature Gran % (Auto) 0.3 % Neut % (Auto) 73.7 % Lymph % (Auto) 15.2 % Rankin % (Auto) 7.2 % Eos % (Auto) 2.9 % Baso % (Auto) 0.7 % Neut # (Auto) 11.84 H (1.4-6.5) K/uL Lymph # (Auto) 2.45 (1.2-3.4) K/uL Rankin # (Auto) 1.15 H (0.11-0.59) K/uL Eos # (Auto) 0.47 (0-0.5) K/uL Baso # (Auto) 0.11 (0-0.2) K/uL Immature Gran # (Auto) 0.05 H (0.00-0.02) K/uL Sodium 140 (136-145) mmol/L Potassium 3.7 (3.5-5.1) mmol/L Chloride 107 (98-107) mmol/L Carbon Dioxide 23 (21-32) mmol/L Anion Gap 10.0 (3-11) BUN 22 H (7-18) mg/dl Creatinine 0.97 (0.6-1.2) mg/dl Est Cr Clr Drug Dosing 64.5 ml/min Est GFR ( Amer) 76.7 Est GFR (Non-Af Amer) 66.2 BUN/Creatinine Ratio 23.2 H (10-20) Glucose 147 H (70-99) mg/dl Calcium 9.6 (8.5-10.1) mg/dl Total Bilirubin 0.3 (0.2-1) mg/dl AST 13 L (15-37) U/L ALT 19 (12-78) U/L Alkaline Phosphatase 109 (45-117) U/L Troponin I 0.022 (0-0.045) ng/ml Total Protein 8.1 (6.4-8.2) gm/dl Albumin 4.0 (3.4-5.0) gm/dl Globulin 4.1 H (2.5-4.0) gm/dl Albumin/Globulin Ratio 1.0 (0.9-2) Administered Medications Amitriptyline HCl (Amitriptyline Hcl 25 Mg Tab) 25 mg PO HS MIKE Stop: 05/12/20 20:59 Last Admin: 04/12/20 21:11 Dose: 25 mg Documented by: [id number] Amlodipine Besylate (Amlodipine Besylate 5 Mg Tab) 5 mg PO DAILY MIKE Stop: 05/12/20 10:44 Last Admin: 04/12/20 11:16 Dose: 5 mg Documented by: [id number] Atorvastatin Calcium (Atorvastatin 40 Mg Tab) 80 mg PO HS MIKE Stop: 05/12/20 20:59 Last Admin: 04/12/20 21:11 Dose: 80 mg Documented by: [id number] Clopidogrel Bisulfate (Clopidogrel Bisulfate 75 Mg Tab) 75 mg PO QA MIKE Stop: 05/12/20 10:44 Last Admin: 04/12/20 11:16 Dose: 75 mg Documented by: [id number] Heparin Sodium (Porcine) (Heparin Sod 5,000 Unit/0.5 Ml Vial) 5,000 units SQ Q12 MIKE Stop: 05/12/20 20:59 Last Admin: 04/12/20 21:12 Dose: Not Given Documented by: [id number] Hydralazine HCl (Hydralazine Hcl 20 Mg/Ml Vial) 10 mg IV Q8H PRN PRN Reason: SBP>180 Stop: 05/12/20 09:03 Last Admin: 04/12/20 10:46 Dose: 10 mg Documented by: [id number] Sodium Chloride (1/2 Nss) 1,000 mls @ 70 mls/hr IV .[id number] MIKE Stop: 05/12/20 09:03 Last Admin: 04/12/20 10:40 Dose: 70 mls/hr Documented by: [id number] Losartan Potassium (Losartan Potassium 50 Mg Tab) 100 mg PO QAM MIKE Stop: 05/12/20 10:44 Last Admin: 04/12/20 11:15 Dose: 100 mg Documented by: [id number] Metoprolol Succinate (Metoprolol Succ 50mg Ext Rel Tab) 100 mg PO BID MIKE Stop: 05/12/20 10:44 Last Admin: 04/12/20 21:11 Dose: Not Given Documented by: [id number] Admin: 04/12/20 11:16 Dose: 100 mg Documented by: [id number] Miscellaneous (Check Clonidine Patch Placement) 1 ea N/A QS MIKE Stop: 05/12/20 15:59 Last Admin: 04/12/20 16:16 Dose: 1 ea Documented by: [id number] Sertraline HCl (Sertraline Hcl 100 Mg Tablet) 100 mg PO HS MIKE Stop: 05/12/20 20:59 Last Admin: 04/12/20 21:11 Dose: 100 mg Documented by: [id number] Discontinued Medications Hydralazine HCl (Hydralazine Hcl 20 Mg/Ml Vial) 10 mg IV ONCE STA Stop: 04/12/20 05:31 Last Admin: 04/12/20 05:35 Dose: 10 mg Documented by: [id number] Labetalol HCl (Labetalol Hcl Iv 5 Mg/Ml 20ml) 5 mg IV NOW STA Stop: 04/12/20 06:12 Last Admin: 04/12/20 06:21 Dose: 5 mg Documented by: [id number] Cosigned by: [id number] Labetalol HCl (Labetalol Hcl Iv 5 Mg/Ml 20ml) 10 mg IV NOW STA Stop: 04/12/20 07:17 Last Admin: 04/12/20 07:25 Dose: 10 mg Documented by: [id number] Cosigned by: [id number] Labetalol HCl (Labetalol Hcl Iv 5 Mg/Ml 20ml) 10 mg IV NOW STA Stop: 04/12/20 09:00 Last Admin: 04/12/20 09:01 Dose: 10 mg Documented by: [id number] Cosigned by: [id number] Ondansetron HCl (Ondansetron Inj 2 Mg/Ml 2 Ml Vial) 4 mg IV NOW STA Stop: 04/12/20 05:32 Last Admin: 04/12/20 05:35 Dose: 4 mg Documented by: [id number] Discharge Plan Visit Data Chief Complaint: Hypertension Stated Complaint: HYPERTENSION, VOMITING ED Provider: Kierra Worley Discharge Problem: Hypertensive urgency, Vomiting Patient Disposition: Admitted As Inpatient Discharge Instructions Interventions: ED Discharge Assessment Last Done: 04/12/20 09:58 Discharge Problem: Vomiting Qualifiers: Vomiting type: unspecified Vomiting Intractability: intractable Nausea presence: with nausea Qualified Code(s): R11.2 - Nausea with vomiting, unspecified
[2020-04-13] MEDS: CHECK CLONIDINE PATCH PLACEMENT SCH ×4 (00:07→23:09)
[2020-04-13 06:15] LABS: Hematocrit (blood only) 39.9 % (37-47); Hemoglobin 13.3 g/dL (12.0-16.0); Mean Corpuscular Hemoglobin 30.8 pg (25-34); Mean Corpuscular Hgb Conc 33.3 g/dL (32-36); Mean Corpuscular Volume 92.4 fL (80-100); Mean Platelet Volume 9.8 fL (7.4-10.4); Platelet Count 315 K/uL (130-400); RDW Standard Deviation 44.2 fL (36.4-46.3); Red Blood Count 4.32 M/uL (4.2-5.4); White Blood Count 9.07 K/uL (4.8-10.8)
[2020-04-13 06:43] LABS: Albumin Level 3.3 gm/dl (3.4-5.0); Calcium 9.7 mg/dl (8.5-10.1); Creatinine Clr Calc Pharmacy 79.2 ml/min; Est GFR (African American) 98.4; Est GFR (Non-African American) 84.9; Magnesium 2.1 mg/dl (1.8-2.4); Potassium 3.2 mmol/L (3.5-5.1)
[2020-04-13 06:56] LABS: Bilirubin,Total 0.6 mg/dl (0.2-1); Globulin 3.4 gm/dl (2.5-4.0); Thyroid Stimulating Hormone 0.979 uIu/ml (0.300-4.500); Total Protein 6.7 gm/dl (6.4-8.2)
[2020-04-13] MEDS ORDERED: POTASSIUM CHLORIDE 20 MEQ TABCR PO STA (09:00)
[2020-04-13] MEDS: CLOPIDOGREL BISULFATE 75 MG TAB PO SCH (09:29)
[2020-04-13] MEDS: LOSARTAN POTASSIUM 50 MG TAB PO SCH (09:29)
[2020-04-13] MEDS: METOPROLOL SUCC 50MG EXT REL TAB PO SCH ×2 (09:29→20:33)
[2020-04-13] MEDS: CAPSAICIN CR 0.075% 60 GM TUBE EXT SCH ×4 (09:30→20:34)
[2020-04-13] MEDS: AMLODIPINE BESYLATE 5 MG TAB PO SCH (09:30)
[2020-04-13] MEDS: HEPARIN SOD 5,000 UNIT/0.5 ML VIAL SQ SCH ×3 (09:31→21:07)
--- NOTE | 2020-04-13 10:03 | Nephrology Progress Note ---
Date of Service April 13, 2020 Assessment & Plan (1) Hypertensive urgency: * Evaluation for secondary causes of HTN has been unrevealing: preserved kidney function, MRA of renal arteries 01/18 negative for CATRACHITA, 04/23 evaluation w/normal TSH, normal renin/aldosterone and serum metanephrine * 04/12/20 toxicology screen + for marijuana (THC) * Recommend transitioning to former outpatient oral antihypertensive regimen * Will monitor to see if BP controlled w/ home oral regimen (2) Proteinuria: * UPCR 1.0. Hypertensive urgency was likely contributing * Patient has preserved kidney function * Will repeat UPCR while BP controlled (3) Hematuria: * 04/[address] films reviewed: no renal calculi, cyst or mass * Will order urine culture * Patient has h/o tobacco use. If persistent hematuria, will need cystoscopy as outpatient (4) Hypokalemia: * Metabolic alkalosis w/ hypokalemia suggestive of potassium translocation associated w/ GI HCl loss * Will check spot urine potassium (5) Cannabinoid hyperemesis syndrome: * Gastroenterology recommendations reviewed * RUQ US negative for gallstones or biliary dilation * UGI w/ SBFT pending * Abdominal CT 04/12/20: No acute process within the abdomen or pelvis on unenhanced exam. No urinary calculi or hydronephrosis. Diverticulosis present without diverticulitis Admission and Anticipated Discharge Date Admission Date: April 12, 2020 Subjective Ms. Velasquez was seen & examined in her hospital room this morning. She has had no nausea or vomiting since admission. Ms. Velasquez reports low blood pressure overnight. Antihypertensive medications are currently being held. RUQ US was completed yesterday. She is awaiting UGI w/ SBFT this am. Review of Systems Constitutional: no fever Eyes: no problem reported Ear, Nose, Mouth, Throat: no problem reported Respiratory: no dyspnea Cardiovascular: no chest pain and no edema Gastrointestinal: + nausea; no abdominal pain and no vomiting Genitourinary: no dysuria and no hematuria Musculoskeletal: no back pain Integumentary: no rash Neurologic: no dizziness Physical Exam Constitutional: not in distress Eyes: PERRL, conjunctivae normal, anicteric sclerae ENMT: external ear and nose normal, oropharynx normal Neck: trachea midline, no thyromegaly (no carotid artery bruit) Respiratory: normal respiratory effort, lungs clear to auscultation Cardiovascular: RRR, no murmur, no edema (symmetric radial pulses. No radial femoral pulse delay) Gastrointestinal (Abdomen): normal bowel sounds, soft, nontender, no hepatosplenomegaly (no abdominal bruit) Musculoskeletal: Extremities: no cyanosis and no clubbing Skin: no rashes, warm and dry Neurologic: awake; not confused Results & Data ([facility]) Vital Signs (Past 12 Hours) Vital Signs Temp Pulse Pulse Resp BP Pulse Ox 04/13/20 08:00 67 04/13/20 07:47 36.8 C 65 18 115/75 95 04/13/20 03:02 36.8 C 60 16 115/72 97 04/12/20 23:12 36.8 C 69 16 91/55 L 96 Laboratory Results Laboratory Tests 04/12/20 04/12/20 04/13/20 10:50 10:50 05:46 WBC Hgb Hct Plt Count Sodium 139 Potassium 3.2 L Chloride 104 Carbon Dioxide 27 BUN 15 Creatinine 0.79 Glucose 106 H Total Bilirubin 0.6 AST 13 L ALT 15 Albumin 3.3 L TSH 0.979 Urine Color Yellow Urine Appearance Clear Urine pH 7.0 Ur Specific [place] 1.013 Urine Protein 1+ H Urine Glucose (UA) Negative Urine Blood 2+ H Urine Nitrite Negative Urine RBC (Auto) 10-30 H Protein/Creatinin Ratio 1.0 H 04/13/20 05:46 WBC 9.07 Hgb 13.3 Hct 39.9 Plt Count 315 Sodium Potassium Chloride Carbon Dioxide BUN Creatinine Glucose Total Bilirubin AST ALT Albumin TSH Urine Color Urine Appearance Urine pH Ur Specific [place] Urine Protein Urine Glucose (UA) Urine Blood Urine Nitrite Urine RBC (Auto) Protein/Creatinin Ratio PG Care Time/CCT Total # of Minutes Spent Total Time Spent with Patient: Total time spent is greater than 50% in coordination of care (as documented) at patient's floor/unit and/or counseling patient: Coding Level of Care Code 35968 Subseq Hosp Care Lvl 3 Diagnoses Hypertensive urgency I16.0 Proteinuria R80.9 Hematuria R31.9 Hypokalemia E87.6 Cannabinoid hyperemesis syndrome F12.988
[2020-04-13 11:34] LABS: Protein Creatinine Ratio Urine 0.1 (0-0.2); Total Protein Urine Random 9.6 mg/dl (0-11.9)
--- NOTE | 2020-04-13 16:05 | Hospitalist Progress Note ---
Date of Service April 13, 2020 Assessment & Plan (1) Hypertensive urgency: Again presents for the third time in a week with hypertensive urgency and nausea/vomiting. Follows with nephrology as an outpatient and has had work-up for secondary hypertension in the past. Initially thought to have renal artery stenosis which was then disproven on MRA. Has a history of PRES with seizure in 08/2019 which then resolved and she was weaned off Keppra. There is been some concern in the past that her hypertensive urgency is from noncompliance with medication or not being able to take medications due to cyclical vomiting syndrome, however that does not seem to be the case at this time. Patient reports that she actually checked her blood pressure before she started vomiting this time and it was 230/120 at home. She feels that the blood pressure spikes which causes her to vomit No focal neurological deficits at this time, troponin is within normal limits, no ischemic changes on ECG, no renal failure. No headache or vision changes. She was given hydralazine 10 mg IV x1, labetalol 5 mg IV and then 10 mg IV x1 in the ER. She was then given another dose of IV labetalol and IV hydralazine later on the first day of admission Her blood pressures have come down significantly and are actually on the low side at times here and her metoprolol dose was held on the evening of 04/12 CT noncontrast of the head was negative. She had an MRI of the brain 8 months ago and again 6 months ago without any intracranial lesions CT of the abdomen/pelvis was negative -Consult nephrology whom she follows with as an outpatient given numerous hospitalizations and extremely labile blood pressures-appreciate consultation-it is felt that secondary causes of hypertension have been unrevealing to include MRA of the renal arteries negative for CATRACHITA, normal TSH, normal renin/aldosterone and serum metanephrines Spot urine protein creatinine ratio was elevated upon admission when hypertensive, and was repeated today and is now normal with normal blood pressures Urine drug screen positive again for marijuana-patient states that she did not smoke marijuana prior to this admission-recommend discontinuation of all marijuana smoking -Continue on home meds of metoprolol, losartan, Catapres patch and amlodipine -It is difficult to titrate up on the doses of her medications at this time as her blood pressures are in the 90 systolic -Could consider a as needed clonidine pill for her to take at home to help avoid multiple repeated admissions, but unclear if this would be feasible given that she frequently vomits up p.o. medications at home. Furthermore, p.o. clonidine may lead to rebound hypertension -Continue to follow blood pressures (2) Cyclic vomiting syndrome: With numerous hospitalizations for this. Question in the past if it has been related to marijuana use. Subjectively with hematemesis both last admission and possibly this morning, however hemoglobin is elevated from previous and is in the normal range although somewhat hemoconcentrated Now much improved and tolerating regular diet -Seems to be related to elevated blood pressures at this time -Control blood pressure as above -CT of the head negative as above as is CT of the abdomen/pelvis -Continue Elavil 25 mg p.o. nightly as started by GI upon last admission Abdominal ultrasound negative Awaiting upper GI with small bowel follow-through tomorrow after premedication with methylprednisolone and Benadryl for contrast allergy Appreciate GI consultation (3) HTN (hypertension): As noted above (4) CAD (coronary artery disease): Noted to be mild to moderate nonobstructive CAD on prior cardiac catheterization -Continue metoprolol, losartan, atorvastatin, and Plavix when tolerating p.o. No ischemic changes on ECG Troponin is mildly detectable but in normal range and stable from previous No chest pain (5) Hyperlipidemia: Continue statin (6) Marijuana dependence: Counseled on cessation (7) Proteinuria: As above, repeat spot urine protein creatinine ratio is now normalized (8) Hypokalemia: Could be secondary to GI losses Replace with oral potassium chloride today Follow BMP and magnesium in the morning (9) Hematuria: With persistent microscopic hematuria She was seen by Dr. Dozier of urology in 06/11/2019 after having a negative urine cytology, no renal or bladder masses on CT scan She had a cystoscopy at that time which was completely normal and she was advised to follow-up as needed for return of gross hematuria or further problems with microscopic hematuria (10) DVT prophylaxis: Heparin SQ Disposition-continued stay on PCU to further evaluate blood pressures and for small bowel follow-through for recurrent intractable nausea and vomiting Admission and Anticipated Discharge Date Admission Date: April 12, 2020 Subjective Patient feeling much better. Tolerated regular food for lunch. Blood pressures are actually low at times and her metoprolol was held 1 dose last night. Her upper GI and small bowel follow-through test was canceled today as she is allergic to the oral contrast and needs to be premedicated with steroids. It was rescheduled for tomorrow. Telemetry with normal sinus rhythm with rates in the 60s 70s. Review of Systems Review of Systems: All systems reviewed & are unremarkable except as noted in HPI & below Physical Exam Constitutional: WD/WN, vitals as above no acute distress Neck: trachea midline, no thyromegaly Respiratory: normal respiratory effort, lungs clear to auscultation Cardiovascular: RRR, no murmur, no edema Chest (Breasts): Chest: normal inspection of chest Gastrointestinal (Abdomen): normal bowel sounds, soft, nontender, no hepatosplenomegaly Musculoskeletal: Extremities: extremities normal to inspection; no cyanosis a nd no clubbing Skin: no rashes, warm and dry Neurologic: moves all extremities and awake; no focal motor deficits Psychiatric: Orientation: alert and oriented x 3 Speech: normal rate/rhythm/volume of speech Lymphatic: no lymphedema Results & Data Results & Data ([facility]) Vital Signs (Past 12 Hours) Vital Signs Temp Pulse Pulse Resp BP Pulse Ox 04/13/20 11:41 36.9 C 65 16 94/62 L 98 04/13/20 08:00 67 04/13/20 07:47 36.8 C 65 18 115/75 95 Laboratory Results 04/13/20 04/13/20 04/13/20 Range/Units 10:43 10:43 05:46 WBC 9.07 (4.8-10.8) K/uL RBC 4.32 (4.2-5.4) M/uL Hgb 13.3 (12.0-16.0) g/dL Hct 39.9 (37-47) % MCV 92.4 (80-100) fL MCH 30.8 (25-34) pg MCHC 33.3 (32-36) g/dL RDW Std Deviation 44.2 (36.4-46.3) fL RDW Coeff of Jose Luis 13.0 (11.5-14.5) % Plt Count 315 (130-400) K/uL MPV 9.8 (7.4-10.4) fL Sodium (136-145) mmol/L Potassium (3.5-5.1) mmol/L Chloride (98-107) mmol/L Carbon Dioxide (21-32) mmol/L Anion Gap (3-11) BUN (7-18) mg/dl Creatinine (0.6-1.2) mg/dl Est Cr Clr Drug Dosing ml/min Est GFR ( Amer) Est GFR (Non-Af Amer) BUN/Creatinine Ratio (10-20) Glucose (70-99) mg/dl Calcium (8.5-10.1) mg/dl Magnesium (1.8-2.4) mg/dl Total Bilirubin (0.2-1) mg/dl AST (15-37) U/L ALT (12-78) U/L Alkaline Phosphatase (45-117) U/L Total Protein (6.4-8.2) gm/dl Albumin (3.4-5.0) gm/dl Globulin (2.5-4.0) gm/dl Albumin/Globulin Ratio (0.9-2) TSH (0.300-4.500) uIu/ml Ur Random Creatinine 125.0 mg/dl U Random Total Protein 9.6 (0-11.9) mg/dl Ur Random Potassium 23.3 mmol/L Protein/Creatinin Ratio 0.1 (0-0.2) 04/13/20 Range/Units 05:46 WBC (4.8-10.8) K/uL RBC (4.2-5.4) M/uL Hgb (12.0-16.0) g/dL Hct (37-47) % MCV (80-100) fL MCH (25-34) pg MCHC (32-36) g/dL RDW Std Deviation (36.4-46.3) fL RDW Coeff of Jose Luis (11.5-14.5) % Plt Count (130-400) K/uL MPV (7.4-10.4) fL Sodium 139 (136-145) mmol/L Potassium 3.2 L (3.5-5.1) mmol/L Chloride 104 (98-107) mmol/L Carbon Dioxide 27 (21-32) mmol/L Anion Gap 8.0 (3-11) BUN 15 (7-18) mg/dl Creatinine 0.79 (0.6-1.2) mg/dl Est Cr Clr Drug Dosing 79.2 ml/min Est GFR ( Amer) 98.4 Est GFR (Non-Af Amer) 84.9 BUN/Creatinine Ratio 19.0 (10-20) Glucose 106 H (70-99) mg/dl Calcium 9.7 (8.5-10.1) mg/dl Magnesium 2.1 (1.8-2.4) mg/dl Total Bilirubin 0.6 (0.2-1) mg/dl AST 13 L (15-37) U/L ALT 15 (12-78) U/L Alkaline Phosphatase 66 (45-117) U/L Total Protein 6.7 (6.4-8.2) gm/dl Albumin 3.3 L (3.4-5.0) gm/dl Globulin 3.4 (2.5-4.0) gm/dl Albumin/Globulin Ratio 1.0 (0.9-2) TSH 0.979 (0.300-4.500) uIu/ml Ur Random Creatinine mg/dl U Random Total Protein (0-11.9) mg/dl Ur Random Potassium mmol/L Protein/Creatinin Ratio (0-0.2) PG Care Time/CCT Total # of Minutes Spent Total Time Spent with Patient: Total time spent is greater than 50% in coordination of care (as documented) at patient's floor/unit and/or counseling patient: Coding Level of Care Code 06369 Subseq Obs Care Lvl 3 Diagnoses Hypertensive urgency I16.0 Cyclic vomiting syndrome R11.15 HTN (hypertension) I10 CAD (coronary artery disease) I25.10 Hyperlipidemia E78.5 Marijuana dependence F12.20 Proteinuria R80.9 Hypokalemia E87.6 Hematuria R31.9 DVT prophylaxis Z29.9
[2020-04-13] MEDS: SERTRALINE HCL 100 MG TABLET PO SCH (20:33)
[2020-04-13] MEDS: ATORVASTATIN 40 MG TAB PO SCH (20:33)
[2020-04-13] MEDS: AMITRIPTYLINE HCL 25 MG TAB PO SCH (20:34)
[2020-04-14 00:22] LABS: Marijuana Quant, GCMS Urine 333 ng/mL (<5)
[2020-04-14 07:14] LABS: BUN Creatinine Ratio 22.7 (10-20); Calcium 9.6 mg/dl (8.5-10.1); Creatinine Clr Calc Pharmacy 74.5 ml/min; Est GFR (African American) 91.3; Est GFR (Non-African American) 78.8; Magnesium 2.3 mg/dl (1.8-2.4); Potassium 4.6 mmol/L (3.5-5.1)
[2020-04-14] MEDS: CHECK CLONIDINE PATCH PLACEMENT SCH ×2 (09:11→16:58)
--- NOTE | 2020-04-14 11:00 | Fluoroscopy Report ---
[place] GI series with SBFT CLINICAL HISTORY: Nausea. Vomiting. COMPARISON STUDY: Abdomen and pelvis CT 04/12/2020. Fluoroscopy time: 2 minutes. 16 fluoroscopic spot and overhead images were obtained. FINDINGS: The patient swallowed barium without difficulty. The esophagus is normal in course, caliber , motility. No hiatus hernia. No gastroesophageal reflux demonstrated during the examination. No pete jed ulcerations. The duodenal bulb and duodenal C-sweep are within normal limits. Additional overhead and fluoroscopic spot images of the small bowel were also obtained. The small bow el reaches the cecum at 1 hour and 10 minutes. The terminal ileum is normally distensible. The append ix is opacified. The small bowel is normal and course and caliber. No evidence for bowel obstruction. IMPRESSION: Normal upper GI series and small bowel follow-through. ACT 112: Negative or not required by law. Electronically signed by: Sam Rodriguez M.D. 04/14/2020 10:59 AM
[2020-04-14] MEDS: HEPARIN SOD 5,000 UNIT/0.5 ML VIAL SQ SCH (11:08)
[2020-04-14] MEDS: METOPROLOL SUCC 50MG EXT REL TAB PO SCH (11:09)
[2020-04-14] MEDS: LOSARTAN POTASSIUM 50 MG TAB PO SCH (11:10)
[2020-04-14] MEDS: CLOPIDOGREL BISULFATE 75 MG TAB PO SCH (11:10)
[2020-04-14] MEDS: AMLODIPINE BESYLATE 5 MG TAB PO SCH (11:10)
[2020-04-14] MEDS: CAPSAICIN CR 0.075% 60 GM TUBE EXT SCH ×3 (11:17→18:06)
[2020-04-14 12:09] VITALS: TEMP 98.2
--- NOTE | 2020-04-14 12:17 | Nephrology Progress Note ---
Date of Service April 14, 2020 Assessment & Plan (1) Hypertensive urgency: * Evaluation for secondary causes of HTN by Dr. Issa has been unrevealing: preserved kidney function, MRA of renal arteries 01/18 negative for CATRACHITA, 04/23 evaluation w/normal TSH, normal renin/aldosterone and serum metanephrine * 04/12/20 toxicology screen + for marijuana (THC) * Continue outpatient oral antihypertensive regimen * Favor providing clonidine 0.1 mg po q6 hrs PRN SBP > 180 mmHg to optimize BP control. Should not have rebound HTN as she is on other agents as well (2) Proteinuria: * UPCR improved to 0.1 following BP control * Patient has preserved kidney function (3) Hematuria: * 04/[address] films reviewed: no renal calculi, cyst or mass * Urine culture is pending * Patient has h/o tobacco use. If persistent hematuria, will need cystoscopy as outpatient (4) Cannabinoid hyperemesis syndrome: * Gastroenterology recommendations reviewed * RUQ US negative for gallstones or biliary dilation * UGI w/ SBFT normal * Abdominal CT 04/12/20: No acute process within the abdomen or pelvis on unenhanced exam. No urinary calculi or hydronephrosis. Diverticulosis pr esent without diverticulitis * Needs trial off cannabis to determine whether this is contributing to cyclic vomiting Admission and Anticipated Discharge Date Admission Date: April 12, 2020 Subjective Ms. Velasquez was seen and examined in her hospital room this morning. She reports that she is tolerating her diet. BP is now well controlled w/ oral medications Review of Systems Constitutional: no fever Eyes: no problem reported Ear, Nose, Mouth, Throat: no problem reported Respiratory: no dyspnea Cardiovascular: no chest pain, no palpitations and no edema Gastrointestinal: + nausea; no abdominal pain and no vomiting Genitourinary: no dysuria and no hematuria Musculoskeletal: no back pain Integumentary: no rash Neurologic: no dizziness Physical Exam Constitutional: not in distress Eyes: PERRL, conjunctivae normal, anicteric sclerae ENMT: external ear and nose normal, oropharynx normal Neck: trachea midline, no thyromegaly (no carotid artery bruit) Respiratory: normal respiratory effort, lungs clear to auscultation Cardiovascular: RRR, no murmur, no edema (symmetric radial pulses. No radial femoral pulse delay) Gastrointestinal (Abdomen): normal bowel sounds, soft, nontender, no hepatosplenomegaly (no abdominal bruit) Musculoskeletal: Extremities: no cyanosis and no clubbing Skin: no rashes, warm and dry Neurologic: awake; not confused Results & Data ([facility]) Vital Signs (Past 12 Hours) Vital Signs Temp Pulse Pulse Resp BP BP Pulse Ox 04/14/20 12:08 36.8 C 73 18 121/81 96 04/14/20 11:18 36.5 C 74 18 128/74 96 04/14/20 08:02 36.5 C 74 18 109/68 97 04/14/20 08:00 61 04/14/20 04:30 36.8 C 59 L 20 103/73 94 Laboratory Results Laboratory Tests 04/13/20 04/14/20 05:46 06:13 WBC 9.07 Hgb 13.3 Hct 39.9 Plt Count 315 Sodium 139 Potassium 4.6 D Chloride 108 H Carbon Dioxide 26 BUN 19 H Creatinine 0.84 Glucose 132 H Calcium 9.6 Magnesium 2.3 PG Care Time/CCT Total # of Minutes Spent Total Time Spent with Patient: Total time spent is greater than 50% in coordination of care (as documented) at patient's floor/unit and/or counseling patient: Coding Level of Care Code 48389 Subseq Hosp Care Lvl 3 Diagnoses Hypertensive urgency I16.0 Proteinuria R80.9 Hematuria R31.9 Cannabinoid hyperemesis syndrome F12.988
--- NOTE | 2020-04-14 13:33 | Discharge Summary ---
Date of Service April 14, 2020 Admission HPI Per Admitting Provider This patient is a 55-year-old female with a history of cyclic vomiting syndrome, multiple admissions including 3 in the last week for hypertensive urgency/emergency and a history of PRES, HTN, nonobstructive CAD, and marijuana dependence, who presents again to the ER today with sudden onset of nausea and vomiting and significantly elevated blood pressures started at 4:00 this morning. I discharged her from the hospital yesterday after a very almost identical presentation with vomiting and hypertensive urgency. She reports she went home and ate dinner and was feeling great and went to sleep, then woke up with symptoms as above. She vomited multiple times and thinks maybe there was some red substance in it. She denies headache or vision changes, denies numbness or tingling or focal weakness. She does report feeling terrible and generally weak all over. She denies chest pains or shortness of breath, denies abdominal pain or diarrhea. No melena. She took all of her medications as prescribed last night but did not yet take them this morning because of the vomiting. Work-up in the ER included a CBC which was only significant for leukocytosis of 16, and a CMP which was normal, as well as a troponin that was mildly detectable at 0.022 yet stable from previous. ECG with normal sinus rhythm and left axis deviation, no ischemic changes She will be brought in on observation for hypertensive urgency and intractable nausea and vomiting. Principal Diagnosis Hypertensive urgency, Intractable nausea/vomiting, Cyclical vomiting syndrome Discharge Exam Constitutional WD/WN, vitals as above no acute distress Neck trachea midline, no thyromegaly Respiratory normal respiratory effort, lungs clear to auscultation Cardiovascular RRR, no murmur, no edema Chest (Breasts) Chest: normal inspection of chest Gastrointestinal (Abdomen) normal bowel sounds, soft, nontender, no hepatosplenomegaly Musculoskeletal Extremities: extremities normal to inspection; no cyanosis and no clubbing Skin no rashes, warm and dry Neurologic moves all extremities and awake; no focal motor deficits Psychiatric Orientation: alert and oriented x 3 Speech: normal rate/rhythm/volume of speech Lymphatic no lymphedema Discharge Data Allergies Allergy/AdvReac Type Severity Reaction Status Date / Time napoles Allergy Intermediate Hives Verified 04/12/20 04:53 doxycycline Allergy Intermediate hives and Verified 04/12/20 04:53 vomitting Iodinated Contrast Media Allergy Intermediate GIANT Verified 04/12/20 04:53 HIVES , VOMITTING, BODY FEELS HOT loperamide Allergy Intermediate Hives and Verified 04/12/20 04:53 vomiting meperidine Allergy Intermediate HIVES, Verified 04/12/20 04:53 VOMITING prochlorperazine Allergy Intermediate N/V, Verified 04/12/20 04:53 ITCHINESS strawberry Allergy Intermediate HIVES Verified 04/12/20 04:53 tomato Allergy Intermediate HIVES Verified 04/12/20 04:53 iodine Allergy . Verified 04/12/20 04:53 latex AdvReac Mild RASH Verified 04/12/20 04:53 Consultations 04/12/20 07:32 ED Decision to Admit Stat 04/12/20 09:04 Consult Nephrology Routine 04/12/20 10:21 Consult Case Management - Discharge Planning Routine 04/12/20 11:22 Consult Gastroenterology Routine Procedures Performed CXR Ordered Studies 04/12/20 09:04 CT abd pelvis wo con Stat 04/12/20 09:27 CT head/brain wo con Stat 04/12/20 16:30 US abdomen limited Routine 04/14/20 09:00 FL GI series with SBFT Routine Hospital Course (1) Hypertensive urgency: Again presents for the third time in a week with hypertensive urgency and nausea/vomiting. Follows with nephrology as an outpatient and has had work-up for secondary hypertension in the past. Initially thought to have renal artery stenosis which was then disproved on Renal MRA. Has a history of PRES with seizure in 08/2019 which then resolved and she was weaned off Keppra. There is been some concern in the past that her hypertensive urgency is from noncompliance with medication or not being able to take medications due to cyclical vomiting syndrome, however that does not seem to be the case at this time. Patient reports that she actually checked her blood pressure before she started vomiting this time and it was 230/120 at home. She feels that the blood pressure spikes which causes her to vomit No focal neurological deficits at this time, troponin is within normal limits, no ischemic changes on ECG, no renal failure. No headache or vision changes. She was given hydralazine 10 mg IV x1, labetalol 5 mg IV and then 10 mg IV x1 in the ER. She was then given another dose of IV labetalol and IV hydralazine later on the first day of admission Her blood pressures have come down significantly and are actually on the low side at times here CT noncontrast of the head was negative. She had an MRI of the brain 8 months ago and again 6 months ago without any intracranial lesions CT of the abdomen/pelvis was negative -Consulted nephrology with whom she follows with as an outpatient given numerous hospitalizations and extremely labile blood pressures-appreciate consultation-it is felt that secondary causes of hypertension have been unrevealing to include MRA of the renal arteries negative for CATRACHITA, normal TSH, normal renin/aldosterone and serum metanephrines Spot urine protein creatinine ratio was elevated upon admission when hypertensive, and was repeated and is now normal with normal blood pressures Urine drug screen positive again for marijuana-patient states that she did not smoke marijuana prior to this admission-recommend discontinuation of all marijuana smoking -Continue on home meds of metoprolol, losartan, Catapres patch and amlodipine -It is difficult to titrate up on the doses of her medications at this time as her blood pressures are in the 90 systolic -will send her home with an as needed clonidine pill for her to take prn SBP>180 to help avoid multiple repeated admissions -Continue to follow blood pressures at home -suggest referral to Endocrine given daily hot flashes, numerous episodes of hypertensive urgency and recurrent intractable N/V, and thyroid nodules (albeit normal TSH) (2) Cyclic vomiting syndrome: With numerous hospitalizations for this. Question in the past if it has been related to marijuana use. Subjectively with hematemesis both last admission and subjectively this admission, however hemoglobin is elevated from previous and is in the normal range although somewhat hemoconcentrated Now much improved and tolerating regular diet -Seems to be related to elevated blood pressures at this time -Control blood pressure as above, no further emesis since admission -CT of the head negative as above as is CT of the abdomen/pelvis -Continue Elavil 25 mg p.o. nightly as started by GI upon last admission Abdominal ultrasound negative Upper GI with small bowel follow-through negative Appreciate GI consultation Strongly advised cessation of marijuana (3) HTN (hypertension): As noted above (4) CAD (coronary artery disease): Noted to be mild to moderate nonobstructive CAD on prior cardiac catheterization -Continue metoprolol, losartan, atorvastatin, and Plavix when tolerating p.o. No ischemic changes on ECG Troponin is mildly detectable but in normal range and stable from previous No chest pain (5) Hyperlipidemia: Continue statin (6) Marijuana dependence: Counseled on cessation (7) Proteinuria: As above, repeat spot urine protein creatinine ratio is now normalized (8) Hypokalemia: Could be secondary to GI losses Replaced with normalized (9) Hematuria: With persistent microscopic hematuria She was seen by Dr. Dozier of urology in 06/11/2019 after having a negative urine cytology, no renal or bladder masses on CT scan She had a cystoscopy at that time which was completely normal and she was advised to follow-up as needed for return of gross hematuria or further problems with microscopic hematuria Suggest repeat UA with PCP in 3-4 weeks to assess for persistent microscopic hematuria (10) DVT prophylaxis: Heparin SQ Disposition-stable for dc to home Total Time Total Time Spent Total Time Spent (In Minutes): 35 min Total Time Includes: Examination of the Patient, Discharge Planning and Medication Reconciliation Discharge Plan Discharge Items Patient Disposition: Home - Self-Care Reason For Visit: HYPERTENSION, VOMITING Discharge Diagnosis: Hypertensive urgency, Intractable nausea/vomiting, Cyclical vomiting syndrome Condition on Discharge: Good Activity: Resume your previous activity Non-emergency contact: Primary Care Provider and General Office Dispatcher Call non-emergency contact if: you have any medication questions and your symptoms worsen Follow-up/Referrals: Francisco Schultz MD [Physician] - Ace Roblero MD [Physician] - (Please call for a new patient appointment for recurrent hypertensive urgency, hot flashes, and thyroid nodules.) Teena Killian, [Primary Care Provider] - 04/20/20 (Please keep your previously scheduled appointment on 04/20/20) Diet: Low Sodium (2gm) Addtl Attending Provider Instructions: You can take a tablet of clonidine 0.1mg by mouth every 6 hours as needed for a blood pressure over 180 for the top number. If you are vomiting and can't stop, you need to return to the hospital. Please continue to take the amitriptyline at nighttime for the vomiting, and the Protonix. Your xrays and ultrasound of the abdomen were both normal. The CT scan of the abdomen and head were normal. PLEASE do not smoke any marijuana and see if this helps keep you from vomiting. Follow up with Nephrology within [address] Killian as planned in one week. I would suggest a referral to see an [facility] Specialist to see if they can help figure out why you continue to have recurrent severely elevated blood pressures, vomiting, and frequent hot flashes. Pending Studies at Discharge: Yes (Urine culture, 24 hour urine protein) Stand-Alone Forms: My [facility], Smoking Cessation Medications and DC Order Prescriptions: New pantoprazole [Protonix] 40 mg tablet,delayed release (DR/EC) 40 mg PO BID Qty: 60 RF: 0 clonidine HCl 0.1 mg tablet 0.1 mg PO Q6 PRN (Reason: Systolic BP>180) Qty: 10 RF: 0 Continued ondansetron 4 mg tablet,disintegrating 4 mg PO Q6H PRN (Reason: Nausea And Vomiting) Qty: 30 RF: 0 clopidogrel [Plavix] 75 mg tablet 75 mg PO QAM Qty: 90 RF: 0 amlodipine 5 mg tablet 5 mg PO DAILY Qty: 30 RF: 2 sertraline [Zoloft] 100 mg tablet 100 mg PO HS Qty: 90 RF: 1 atorvastatin 80 mg tablet 80 mg PO HS Qty: 90 RF: 3 clonidine [Ollaecxm-HNP-7] 0.1 mg/24 hr patch weekly 1 patch topical WK Qty: 4 RF: 4 multivitamin Tablet 1 tab PO QAM RF: 0 metoprolol succinate [Toprol XL] 100 mg tablet extended release 24 hr 100 mg PO BID RF: 0 promethazine 25 mg tablet 25 mg PO Q6H PRN (Reason: Nausea And Vomiting) RF: 0 losartan [Cozaar] 100 mg tablet 100 mg PO QAM RF: 0 capsaicin 0.025 % cream 1 applic topical QID Qty: 25 RF: 0 amitriptyline 25 mg Tablet 25 mg PO HS Qty: 30 RF: 0 Discharge Orders: Discharge Order (Routine); Ordered 04/14/20 Ordered By: Leonie Fairbanks Admission Data Admit Date/Time: 04/12/20 09:04 Attending Provider: Leonie Fairbanks Admit Provider: Leonie Fairbanks Primary Care Provider: Teena Killian Other Providers: Francisco Schultz ; Armando Cedeno ; Shen Suárez Coding Level of Care Code 85315 OBS Care - Discharge Diagnoses Hypertensive urgency I16.0 Cyclic vomiting syndrome R11.15 HTN (hypertension) I10 CAD (coronary artery disease) I25.10 Hyperlipidemia E78.5 Marijuana dependence F12.20 Proteinuria R80.9 Hypokalemia E87.6 Hematuria R31.9 DVT prophylaxis Z29.9
[2020-04-14 16:17] VITALS: BP 119/84; PULSE 69; O2SAT 91
[2020-04-14 19:14] LABS: Urine Total Protein < 5.0 mg/dl
[2020-04-14 21:53] LABS: Total Protein 24 Hour Urine < 115.0 mg/24 Hr (0-149.1)
[2020-04-15 06:00] LABS: Total Volume Urine 2300 mL
[2020-04-18] MEDS ORDERED: cloNIDine HCL 0.1 MG/24 HR TRANSDERM SYS TD SCH (09:00)
== END 2020-04-14 18:12 | disposition home or self-care (01) ==
LOC: ED 04:37 → 2S 04:37

== ENCOUNTER 2020-10-29 10:59 | Inpatient (IN) ==
[2020-10-29] MEDS ORDERED: ONDANSETRON INJ 2 MG/ML 2 ML VIAL IV STA (11:20)
[2020-10-29] MEDS ORDERED: ACETAMINOPHEN 500 MG TAB PO STA (11:21)
--- NOTE | 2020-10-29 11:28 | Emergency Department Note ---
Impression & Plan PRES (posterior reversible encephalopathy syndrome), Hypertensive emergency, Nausea & vomiting ED Provider Note Provider: Luis Antonio Forrester MD DATE OF SERVICE: 10/29/2020 CHIEF COMPLAINT: Vomiting, seizure-like activity HISTORY OF PRESENT ILLNESS: Patient is a 55-year-old female with complex past medical history including cyclic vomiting syndrome, Pres, hypertension, CAD, and prior seizures currently weaned off Keppra in the setting of PRES presenting via ambulance from home today with seizure-like activity. Per EMS report and the patient's report evidently she began to feel somewhat nauseous had multiple episodes of vomiting starting yesterday. Tried her Zofran at home but this is more to use marijuana last night which usually when her vomiting does not improve. This did have much of an effect. Continue to have some nausea and vomiting this morning but then was laying in bed and had a seizure-like event. EMS reports that this lasted approximately 2 minutes then stopped without medications. Brought here for further evaluation. Patient states she was alert during this time he not fall or strike her head recently or fall from the bed. Patient denies recent URI symptoms but does complain of a bit of a headache and some generalized body numbness. She states it started she believes during her right after this first seizure-like event this morning. Patient states she is awake and alert during this entire event. Patient had a second episode in the emergency department as she is being transferred from the EMS stretcher to the stretcher in the ER. Nursing states that she grabbed on EMS and was shaking all over but talking at this time this quickly stopped with under a minute. Patient later had a little bit of tremor of her left hand but was awake alert during t his time the quickly stopped as well. Patient denies significant abdominal pain or chest pain at this time. Still complains of some nausea. Also complains that she has a little bit more numbness in her left foot than normal reports a bit earlier it was more the left leg but this is improving. Patient states is not currently on seizure medication. Did try some Zofran this morning at home but it did not help with her nausea. Patient does states she feels thirsty but states she is been try to take her home blood pressure medications. REVIEW OF SYSTEMS: A total of 10 review of systems was obtained and negative except as stated above in the HPI. PAST MEDICAL HISTORY: As noted above MEDICATIONS: Reviewed home medication list. SOCIAL HISTORY: Lives at home with , former smoker PHYSICAL EXAM: GENERAL: alert and oriented in no acute distress on stretcher Head: normocephalic and atraumatic EYES: No injection, discharge or icterus. PERRL, EOMI. NECK: Trachea midline. Supple. ENT: Mucous membranes pink and moist. LUNGS: Airway patent. No retractions. Breath sounds clear with good air entry bilaterally. HEART: Regular rate and rhythm. No chest wall tenderness ABDOMEN: Soft and non-tender, without guarding or rebound. SKIN: Acyanotic, warm, dry, without rashes EXTREMITIES: Without swelling, tenderness or deformity NEUROLOGICAL: No aphasia. No facial droop or slurred speech. Tongue midline. Normal strength and tone in the extremities. Sensation to gross touch normal except for she reports some subjective decrease in sensation of the left foot. Ambulatory. EKG: Sinus tachycardia 110 bpm. No PVC or PAC. No acute ST segment elevation noted with a QTC of 454. Some's lateral slight ST depression is noted in comparison to previous from April [id number], this appears new CONTINUOUS CARDIAC MONITORING: was ordered and showed a heart rate of 90s-110 bpm in normal sinus rhythm to sinus tachycardia Patient's laboratory studies and imaging reviewed. Differential includes Infection, dehydration, metabolic abnormality, hypo/hyperglycemia, electrolyte disturbance, anemia, hypoxia, cardiac sources, intracerebral event, toxicologic, neurologic, as well as other pathologies. IMPRESSION/MEDICAL DECISION MAKING: Patient presents with a somewhat atypical story for seizure with generalized brief episodes of shaking while the patient is alert several times. Nursing stated seem somewhat redirectable during the event here initially. I did not witness this myself. Patient blood pressure initially elevated but improved with some time here. Given her history of CT the head as well as CT abdomen pelvis given her abdominal discomfort was obtained. Medicate initially some Zofran and IV fluids here as well as Tylenol for the headache. Patient does h ave a leukocytosis of 19 today although believe this is likely more related to stress response from her vomiting that started yesterday. Patient does have a mild anion gap on blood work and creatinine is slightly elevated at 1.2 from baseline around 0.8. Did receive IV fluids here. Prolactin is not significantly elevated. CT of the head with some white matter changes but no acute intracranial abnormality. CT abdomen pelvis of acute and abdominal findings. Patient's headache she states improved but on reevaluation she still complaining of nausea. Given small dose of Phenergan had a little bit of Ativan. Discussed briefly with neurology recommended MRI given her history of press. This was ordered a small dose of Ativan to assist with the MRI was ordered. On reevaluation patient significant other was present. He voiced significant concerns about her care and our concerns for the seizure events. Patient had another event when I was in the room where she was talking and then had some shaking of her left leg and hand and her head turned slightly left but her eyes remained open and she talked through the event. Again seems it was atypical for a seizure. Lasted less than 30 seconds. Patient without significant postictal period. Patient's significant other voiced significant disappointment with previously with evaluations here at this hospital and has significant concerns about the patient's condition. After MRI the patient, was resting on return but still significantly hypertensive. This appears to have worsened from before MRI. Given some IV labetalol here for blood pressure control. Patient again states she has taken all of her medicine today as prescribed. Patient states her nausea was improved and wanted to try drinking some water this was attempted. Urinalysis without signs of infection. MRI returns with concerning findings for PRES and patient d oes have significant elevated blood pressure. Treated with several dose of labetalol for control with goal of systolic blood pressure under 160. Patient blood pressure somewhat labile. Loaded with some Keppra although again is unclear if the previous spells today were truly seizures; 1.5 g given in the ER IV. Discussed with patient and her significant other at bedside. Patient is resting comfortably. Hospitalist contacted for further care in the ICU and likely need for nicardipine drip. DIAGNOSIS: nausea and vomiting, PRES syndrome, hypertensive emergency DISPOSITION: Hospitalist will evaluate Patient was agreeable with this plan as well as her significant other. Critical Care I have personally spent 42 minutes of critical care time in the direct managemen t of this patient. This includes bedside care, interpretation of diagnostic studies, and testing, discussion with consultants, patient, and family members, and other required patient management activities. These 42 minutes is in excess of all separately billable procedures. Past Med/Surg History Medical History Abnormal MRI of head Acute UTI Anxiety disorder CAD (coronary artery disease) Mild-moderate non-obstructive Carotid stenosis < 50% stenosis B/L per US 12/16/18 Cervical disc disorder Congestive heart failure, acute 06/2017, admitted [facility]. Ruled / Takasubo CM. Cyclic vomiting syndrome Diverticulitis Diverticulosis Gastritis Grief reaction Hematemesis Hematuria History of diverticulitis of colon History of gastritis History of hypotension Hot flashes due to menopause HTN (hypertension) Hx-TIA (transient ischemic attack) Hypercalcemia Hyperlipidemia Hypertension Hypertensive urgency Hypokalemia Marijuana dependence Multiple thyroid nodules New onset seizure 07/17/2019 NSTEMI (non-ST elevated myocardial infarction) 2017 [facility]. Cath performed showed mild to moderate non-obstructive CAD. PRES (posterior reversible encephalopathy syndrome) Pulmonary emphysema Takotsubo cardiomyopathy 2017. Admitted [facility], full cardiac workup including cath. EF at the time 40%, now resolved to 60-65% on echo 2018. Transient cerebrovascular ischemia Vitamin D deficiency Surgical History H/O cervical spine surgery ACDF C4-7 Dr. [place] History of cardiac cath 5-6 YR AGO - ME - NO STENTS (per pt report, this cath not noted in cardiology notes) 2017, NSTEMI. NO INTERVENTION. History of hernia surgery History of hysterectomy History of ovarian cystectomy S/P cervical discectomy Family History Father Family history of stomach cancer Stroke Myocardial infarction Malignant neoplasm of esophagus Stomach cancer Uncle Family history of cancer FAMILY HISTORY OF CANCER - UNCLE - VOCAL CORDS FAMILY HISTORY OF CANCER - AUNT - ? KIND Throat cancer Grandmother (Maternal) Breast cancer Bone cancer Mother No problems noted. Other No pertinent family history Denies family history of Colon cancer Ovarian cancer Prostate cancer Crohn's disease IBD (inflammatory bowel disease) Social History Smoking Status: Never smoker packs per day: 2; Years Smoked: 25; Second Hand Exposure: Yes; Hx Alcohol Use: No Hx Substance Use: Yes Last Used Substance: Days (ago) Last Used Substance Other:: 02/09/20 Preferred Language: Latvian Communication Ability: Effective Visual Impairment: Limited Hearing Ability: Normal Security Flex Officer Required: No Beliefs That Will Affect Care: None marital status: Current Living Situation: Spouse current occupational status: employed 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 Feels Safe at Home: Yes Childhood Exposure to Second-Hand Smoke: Yes caffeine: Yes (1 cup of coffee) during the past year weight has: other Dental Care, Regularly: No Physical Activity Frequency: Daily Physical Activity Frequency Comment: walking Seatbelt Use: always Sunscreen Use: Yes Assistive Devices: None Allergies Allergies Allergy/AdvReac Type Severity Reaction Status Date / Time napoles Allergy Intermediate Hives Verified 10/29/20 11:29 doxycycline Allergy Intermediate hives and Verified 10/29/20 11:29 vomitting Iodinated Contrast Media Allergy Intermediate GIANT Verified 10/29/20 11:29 HIVES , VOMITTING, BODY FEELS HOT loperamide Allergy Intermediate Hives and Verified 10/29/20 11:29 vomiting meperidine Allergy Intermediate HIVES, Verified 10/29/20 11:29 VOMITING prochlorperazine Allergy Intermediate N/V, Verified 10/29/20 11:29 ITCHINESS strawberry Allergy Intermediate HIVES Verified 10/29/20 11:29 tomato Allergy Intermediate HIVES Verified 10/29/20 11:29 iodine Allergy . Verified 10/29/20 11:29 latex AdvReac Mild RASH Verified 10/29/20 11:29 Home Meds Home Medications Medication Instructions Recorded Confirmed multivitamin 1 tab PO QAM 12/16/18 10/29/20 promethazine 25 mg PO Q6H PRN 07/17/19 10/29/20 Previous Rx's Medication Instructions Recorded atorvastatin 80 mg tablet 80 mg PO HS #90 tab 04/04/20 capsaicin 1 applic TOPICAL QID #25 g 04/09/20 clonidine HCl 0.1 mg PO Q6 PRN #10 tab 04/14/20 losartan 100 mg tablet 100 mg PO QAM #90 tab 06/13/20 ondansetron 4 mg disintegrating 4 mg PO Q6H PRN #30 tab 08/01/20 tablet amitriptyline 25 mg tablet 25 mg PO HS #90 tab 08/08/20 amlodipine 5 mg tablet 5 mg PO DAILY #90 tab 08/08/20 cholecalciferol (vitamin D3) 50 50 mcg PO DAILY #30 tab 08/29/20 mcg (2,000 unit) tablet metoprolol succinate 100 mg 100 mg PO BID #90 tab 10/09/20 tablet,extended release 24 hr clopidogrel 75 mg tablet 75 mg PO QAM #90 tab 10/16/20 venlafaxine 75 mg capsule,extended 75 mg PO DAILY #30 cap 10/16/20 release 24 hr clonidine 0.1 mg/24 hr weekly See Rx Instructions .ROUTE 10/27/20 transdermal patch .COMPLEX #4 ea Results & Data (ED) Vital Signs Vital Signs - 24 hr 10/29/20 11:03 10/29/20 11:07 10/29/20 11:20 Temperature 37 C Temperature Source Oral Pulse Rate 126 H 105 H 108 H Pulse Rate from SpO2 Sensor 124 H 107 H Respiratory Rate 37 H 16 17 Respiratory Effort / Characteristics Non-Labored Spontaneous Respiratory Depth Normal Blood Pressure 162/113 H 162/113 H 205/127 H Blood Pressure Mean 129 129 153 Pulse Oximetry 97 96 96 Oxygen Delivery Method Room Air Room Air Sepsis Recent Fever Within 48 Hours No Sepsis New/Unexplained Change in Mental Status No Sepsis Action Taken by Nursing No Action Required 10/29/20 11:36 10/29/20 12:22 10/29/20 15:14 Temperature Temperature Source Pulse Rate 118 H 111 H 106 H Pulse Rate from SpO2 Sensor 118 H 114 H 106 H Respiratory Rate 24 25 H 16 Respiratory Effort / Characteristics Respiratory Depth Blood Pressure 147/101 H 167/115 H 200/105 H Blood Pressure Mean 116 132 136 Pulse Oximetry 96 95 96 Oxygen Delivery Method Sepsis Recent Fever Within 48 Hours Sepsis New/Unexplained Change in Mental Status Sepsis Action Taken by Nursing 10/29/20 15:30 10/29/20 15:40 10/29/20 15:50 Temperature Temperature Source Pulse Rate 105 H 106 H 106 H Pulse Rate from SpO2 Sensor 104 H 105 H 106 H Respiratory Rate 14 19 26 H Respiratory Effort / Characteristics Respiratory Depth Blood Pressure 162/104 H 170/98 H 176/96 H Blood Pressure Mean 123 122 122 Pulse Oximetry 96 96 96 Oxygen Delivery Method Sepsis Recent Fever Within 48 Hours Sepsis New/Unexplained Change in Mental Status Sepsis Action Taken by Nursing 10/29/20 16:00 10/29/20 16:10 10/29/20 16:20 Temperature Temperature Source Pulse Rate 105 H 105 H 102 H Pulse Rate from SpO2 Sensor 106 H 105 H 102 H Respiratory Rate 25 H 23 22 Respiratory Effort / Characteristics Respiratory Depth Blood Pressure 176/105 H 167/107 H 163/108 H Blood Pressure Mean 128 127 126 Pulse Oximetry 94 94 96 Oxygen Delivery Method Sepsis Recent Fever Within 48 Hours Sepsis New/Unexplained Change in Mental Status Sepsis Action Taken by Nursing 10/29/20 16:30 10/29/20 16:40 10/29/20 16:50 Temperature Temperature Source Pulse Rate 104 H 112 H 109 H Pulse Rate from SpO2 Sensor 103 H 114 H 109 H Respiratory Rate 25 H 23 23 Respiratory Effort / Characteristics Respiratory Depth Blood Pressure 159/101 H 163/107 H 115/78 Blood Pressure Mean 120 125 90 Pulse Oximetry 95 96 96 Oxygen Delivery Method Sepsis Recent Fever Within 48 Hours Sepsis New/Unexplained Change in Mental Status Sepsis Action Taken by Nursing 10/29/20 17:00 10/29/20 17:10 10/29/20 17:21 Temperature Temperature Source Pulse Rate 106 H 103 H 117 H Pulse Rate from SpO2 Sensor 106 H 101 H 118 H Respiratory Rate 26 H 20 20 Respiratory Effort / Characteristics Respiratory Depth Blood Pressure 101/62 150/115 H 175/102 H Blood Pressure Mean 75 126 126 Pulse Oximetry 95 97 96 Oxygen Delivery Method Sepsis Recent Fever Within 48 Hours Sepsis New/Unexplained Change in Mental Status Sepsis Action Taken by Nursing 10/29/20 17:22 10/29/20 17:30 10/29/20 17:31 Temperature Temperature Source Pulse Rate 117 H 105 H 107 H Pulse Rate from SpO2 Sensor 112 H 105 H 106 H Respiratory Rate 24 22 24 Respiratory Effort / Characteristics Respiratory Depth Blood Pressure 186/119 H Blood Pressure Mean 141 Pulse Oximetry 98 93 95 Oxygen Delivery Method Sepsis Recent Fever Within 48 Hours Sepsis New/Unexplained Change in Mental Status Sepsis Action Taken by Nursing Laboratory Data Result diagrams: 10/29/20 11:20 10/29/20 11:20 Lab Results 10/29/20 10/29/20 10/29/20 Range/Units 11:20 11:20 11:20 WBC 19.92 H (4.8-10.8) K/uL RBC 4.97 (4.2-5.4) M/uL Hgb 15.6 (12.0-16.0) g/dL Hct 45.5 (37-47) % MCV 91.5 (80-100) fL MCH 31.4 (25-34) pg MCHC 34.3 (32-36) g/dL RDW Std Deviation 45.3 (36.4-46.3) fL RDW Coeff of Jose Luis 13.6 (11.5-14.5) % Plt Count 471 H (130-400) K/uL MPV 10.2 (7.4-10.4) fL Immature Gran % (Auto) 0.3 % Neut % (Auto) 83.4 % Lymph % (Auto) 11.9 % Barbour % (Auto) 4.0 % Eos % (Auto) 0.1 % Baso % (Auto) 0.3 % Neut # (Auto) 16.61 H (1.4-6.5) K/uL Lymph # (Auto) 2.37 (1.2-3.4) K/uL Barbour # (Auto) 0.80 H (0.11-0.59) K/uL Eos # (Auto) 0.02 (0-0.5) K/uL Baso # (Auto) 0.06 (0-0.2) K/uL Immature Gran # (Auto) 0.06 H (0.00-0.02) K/uL Sodium 140 (136-145) mmol/L Potassium 3.6 (3.5-5.1) mmol/L Chloride 105 (98-107) mmol/L Carbon Dioxide 16 L (21-32) mmol/L Anion Gap 19.0 H (3-11) BUN 18 (7-18) mg/dl Creatinine 1.23 H (0.6-1.2) mg/dl Est Cr Clr Drug Dosing 55.9 ml/min Est GFR ( Amer) 57.6 Est GFR (Non-Af Amer) 49.7 BUN/Creatinine Ratio 14.4 (10-20) Glucose 184 H (70-99) mg/dl Lactate (0.4-2.0) mmol/L Calcium 9.6 (8.5-10.1) mg/dl Magnesium 1.9 (1.8-2.4) mg/dl Total Bilirubin 0.3 (0.2-1) mg/dl AST 21 (15-37) U/L ALT 36 (12-78) U/L Alkaline Phosphatase 130 H (45-117) U/L Troponin I < 0.015 (0-0.045) ng/ml Total Protein 9.1 H (6.4-8.2) gm/dl Albumin 4.3 (3.4-5.0) gm/dl Globulin 4.8 H (2.5-4.0) gm/dl Albumin/Globulin Ratio 0.9 (0.9-2) Lipase 102 (73-393) U/L Procalcitonin (0-0.5) ng/ml TSH 3.910 (0.300-4.500) uIu/ml Prolactin 2.29 ng/ml Urine Color Urine Appearance (Clear) Urine pH (4.5-7.5) Ur Specific Pioneer (1.000-1.030) Urine Protein (Negative) Urine Glucose (UA) (Negative) Urine Ketones (Negative) Urine Blood (Negative) Urine Nitrite (Negative) Urine Bilirubin (Negative) Urine Urobilinogen (Negative) Ur Leukocyte Esterase (Negative) Urine WBC (Auto) (0-5) /hpf Urine RBC (Auto) (0-4) /hpf U Hyaline Cast (Auto) (0-5) /lpf U Epithel Cells (Auto) (0-5) /lpf Urine Bacteria (Auto) (Negative) Urine Opiates Screen (Neg) Ur Methadone, Qual (Neg) Urine Barbiturates (Neg) Ur Phencyclidine (PCP) (Neg) U Amphetamin/Meth Scrn (Neg) MDMA (Ecstasy) Screen (Neg) U Benzodiazepines Scrn (Neg) Ur Cocaine Metabolite (Neg) U Marijuana (THC) Screen (Neg) COVID-19 Eval Order SARS-CoV-2 (PCR) (Negative) Influenza Type A (PCR) (Neg) Influenza Type B (PCR) (Neg) RSV (RT-PCR) (Neg) 10/29/20 10/29/20 10/29/20 Range/Units 11:20 12:43 13:25 WBC (4.8-10.8) K/uL RBC (4.2-5.4) M/uL Hgb (12.0-16.0) g/dL Hct (37-47) % MCV (80-100) fL MCH (25-34) pg MCHC (32-36) g/dL RDW Std Deviation (36.4-46.3) fL RDW Coeff of Jose Luis (11.5-14.5) % Plt Count (130-400) K/uL MPV (7.4-10.4) fL Immature Gran % (Auto) % Neut % (Auto) % Lymph % (Auto) % Barbour % (Auto) % Eos % (Auto) % Baso % (Auto) % Neut # (Auto) (1.4-6.5) K/uL Lymph # (Auto) (1.2-3.4) K/uL Barbour # (Auto) (0.11-0.59) K/uL Eos # (Auto) (0-0.5) K/uL Baso # (Auto) (0-0.2) K/uL Immature Gran # (Auto) (0.00-0.02) K/uL Sodium (136-145) mmol/L Potassium (3.5-5.1) mmol/L Chloride (98-107) mmol/L Carbon Dioxide (21-32) mmol/L Anion Gap (3-11) BUN (7-18) mg/dl Creatinine (0.6-1.2) mg/dl Est Cr Clr Drug Dosing ml/min Est GFR ( Amer) Est GFR (Non-Af Amer) BUN/Creatinine Ratio (10-20) Glucose (70-99) mg/dl Lactate 5.7 H* (0.4-2.0) mmol/L Calcium (8.5-10.1) mg/dl Magnesium (1.8-2.4) mg/dl Total Bilirubin (0.2-1) mg/dl AST (15-37) U/L ALT (12-78) U/L Alkaline Phosphatase (45-117) U/L Troponin I (0-0.045) ng/ml Total Protein (6.4-8.2) gm/dl Albumin (3.4-5.0) gm/dl Globulin (2.5-4.0) gm/dl Albumin/Globulin Ratio (0.9-2) Lipase (73-393) U/L Procalcitonin < 0.05 (0-0.5) ng/ml TSH (0.300-4.500) uIu/ml Prolactin ng/ml Urine Color Urine Appearance (Clear) Urine pH (4.5-7.5) Ur Specific Pioneer (1.000-1.030) Urine Protein (Negative) Urine Glucose (UA) (Negative) Urine Ketones (Negative) Urine Blood (Negative) Urine Nitrite (Negative) Urine Bilirubin (Negative) Urine Urobilinogen (Negative) Ur Leukocyte Esterase (Negative) Urine WBC (Auto) (0-5) /hpf Urine RBC (Auto) (0-4) /hpf U Hyaline Cast (Auto) (0-5) /lpf U Epithel Cells (Auto) (0-5) /lpf Urine Bacteria (Auto) (Negative) Urine Opiates Screen (Neg) Ur Methadone, Qual (Neg) Urine Barbiturates (Neg) Ur Phencyclidine (PCP) (Neg) U Amphetamin/Meth Scrn (Neg) MDMA (Ecstasy) Screen (Neg) U Benzodiazepines Scrn (Neg) Ur Cocaine Metabolite (Neg) U Marijuana (THC) Screen (Neg) COVID-19 Eval Order CovFluRsv at [facility] SARS-CoV-2 (PCR) (Negative) Influenza Type A (PCR) (Neg) Influenza Type B (PCR) (Neg) RSV (RT-PCR) (Neg) 10/29/20 10/29/20 10/29/20 Range/Units 13:25 14:50 14:50 WBC (4.8-10.8) K/uL RBC (4.2-5.4) M/uL Hgb (12.0-16.0) g/dL Hct (37-47) % MCV (80-100) fL MCH (25-34) pg MCHC (32-36) g/dL RDW Std Deviation (36.4-46.3) fL RDW Coeff of Jose Luis (11.5-14.5) % Plt Count (130-400) K/uL MPV (7.4-10.4) fL Immature Gran % (Auto) % Neut % (Auto) % Lymph % (Auto) % Barbour % (Auto) % Eos % (Auto) % Baso % (Auto) % Neut # (Auto) (1.4-6.5) K/uL Lymph # (Auto) (1.2-3.4) K/uL Barbour # (Auto) (0.11-0.59) K/uL Eos # (Auto) (0-0.5) K/uL Baso # (Auto) (0-0.2) K/uL Immature Gran # (Auto) (0.00-0.02) K/uL Sodium (136-145) mmol/L Potassium (3.5-5.1) mmol/L Chloride (98-107) mmol/L Carbon Dioxide (21-32) mmol/L Anion Gap (3-11) BUN (7-18) mg/dl Creatinine (0.6-1.2) mg/dl Est Cr Clr Drug Dosing ml/min Est GFR ( Amer) Est GFR (Non-Af Amer) BUN/Creatinine Ratio (10-20) Glucose (70-99) mg/dl Lactate (0.4-2.0) mmol/L Calcium (8.5-10.1) mg/dl Magnesium (1.8-2.4) mg/dl Total Bilirubin (0.2-1) mg/dl AST (15-37) U/L ALT (12-78) U/L Alkaline Phosphatase (45-117) U/L Troponin I (0-0.045) ng/ml Total Protein (6.4-8.2) gm/dl Albumin (3.4-5.0) gm/dl Globulin (2.5-4.0) gm/dl Albumin/Globulin Ratio (0.9-2) Lipase (73-393) U/L Procalcitonin (0-0.5) ng/ml TSH (0.300-4.500) uIu/ml Prolactin ng/ml Urine Color Yellow Urine Appearance Clear (Clear) Urine pH 6.0 (4.5-7.5) Ur Specific Pioneer 1.016 (1.000-1.030) Urine Protein 3+ H (Negative) Urine Glucose (UA) Negative (Negative) Urine Ketones Trace H (Negative) Urine Blood 3+ H (Negative) Urine Nitrite Negative (Negative) Urine Bilirubin Negative (Negative) Urine Urobilinogen Negative (Negative) Ur Leukocyte Esterase Negative (Negative) Urine WBC (Auto) 1-5 (0-5) /hpf Urine RBC (Auto) >30 H (0-4) /hpf U Hyaline Cast (Auto) 1-5 (0-5) /lpf U Epithel Cells (Auto) >30 H (0-5) /lpf Urine Bacteria (Auto) Negative (Negative) Urine Opiates Screen Neg (Neg) Ur Methadone, Qual Neg (Neg) Urine Barbiturates Neg (Neg) Ur Phencyclidine (PCP) Neg (Neg) U Amphetamin/Meth Scrn Neg (Neg) MDMA (Ecstasy) Screen Neg (Neg) U Benzodiazepines Scrn Neg (Neg) Ur Cocaine Metabolite Neg (Neg) U Marijuana (THC) Screen Pos H (Neg) COVID-19 Eval Order SARS-CoV-2 (PCR) NEGATIVE (Negative) Influenza Type A (PCR) Negative (Neg) Influenza Type B (PCR) Negative (Neg) RSV (RT-PCR) Negative (Neg) Administered Medications Discontinued Medications Acetaminophen (Acetaminophen 500 Mg Tab) 1,000 mg PO NOW STA Stop: 10/29/20 11:22 Last Admin: 10/29/20 11:40 Dose: 1,000 mg Documented by: [id number] Sodium Chloride (Nss) 500 mls @ 999 mls/hr IV .Q31M MIKE Stop: 10/29/20 12:00 Last Infusion: 10/29/20 15:11 Dose: 0 mls/hr Documented by: [id number] Admin: 10/29/20 11:40 Dose: 999 mls/hr Documented by: [id number] Lorazepam (Ativan) 1 mg in 2 mls @ 2 mls/min IV NOW STA Stop: 10/29/20 12:50 Last Admin: 10/29/20 12:57 Dose: 2 mls/min Documented by: [id number] Promethazine HCl (Phenergan) 6.25 mg in 50.25 mls @ 201 mls/hr IV NOW STA Stop: 10/29/20 13:03 Last Infusion: 10/29/20 13:15 Dose: 0 mls/hr Documented by: [id number] Admin: 10/29/20 12:59 Dose: 201 mls/hr Documented by: [id number] Sodium Chloride (Nss 1000ml) 1,000 mls @ 999 mls/hr IV .Q1H1M ONE Stop: 10/29/20 14:17 Last Infusion: 10/29/20 16:42 Dose: 0 mls/hr Documented by: [id number] Admin: 10/29/20 15:24 Dose: 999 mls/hr Documented by: [id number] Levetiracetam 1,500 mg/ Sodium (Chloride) 115 mls @ 440 mls/hr IV NOW STA Stop: 10/29/20 15:47 Last Infusion: 10/29/20 16:31 Dose: 0 mls/hr Documented by: [id number] Admin: 10/29/20 16:05 Dose: 440 mls/hr Documented by: [id number] Labetalol HCl (Labetalol Hcl Iv 5 Mg/Ml 20ml) 10 mg IV NOW STA Stop: 10/29/20 15:18 Last Admin: 10/29/20 15:22 Dose: 10 mg Documented by: [id number] Cosigned by: [id number] Labetalol HCl (Labetalol Hcl Iv 5 Mg/Ml 20ml) 10 mg IV NOW STA Stop: 10/29/20 15:45 Last Admin: 10/29/20 16:05 Dose: 10 mg Documented by: [id number] Cosigned by: [id number] Labetalol HCl (Labetalol Hcl Iv 5 Mg/Ml 20ml) 10 mg IV NOW STA Stop: 10/29/20 17:58 Last Admin: 10/29/20 18:02 Dose: 10 mg Documented by: [id number] Cosigned by: [id number] Ondansetron HCl (Ondansetron Inj 2 Mg/Ml 2 Ml Vial) 4 mg IV NOW STA Stop: 10/29/20 11:21 Last Admin: 10/29/20 11:40 Dose: 4 mg Documented by: [id number] Discharge Plan Visit Data Chief Complaint: Seizure ED Provider: Luis Antonio Forrester Discharge Problem: PRES (posterior reversible encephalopathy syndrome), Hypertensive emergency, Nausea & vomiting Forms Stand Alone Forms: My [facility] Prescriptions Prescriptions: No Action atorvastatin 80 mg tablet 80 mg PO HS Qty: 90 RF: 3 losartan [Cozaar] 100 mg tablet 100 mg PO QAM Qty: 90 RF: 1 ondansetron 4 mg tablet,disintegrating 4 mg PO Q6H PRN (Reason: Nausea And Vomiting) Qty: 30 RF: 0 amlodipine 5 mg tablet 5 mg PO DAILY Qty: 90 RF: 2 amitriptyline 25 mg tablet 25 mg PO HS Qty: 90 RF: 2 metoprolol succinate [Toprol XL] 100 mg tablet extended release 24 hr 100 mg PO BID Qty: 90 RF: 2 venlafaxine [Effexor XR] 75 mg capsule,extended release 24hr 75 mg PO DAILY Qty: 30 RF: 2 clopidogrel [Plavix] 75 mg tablet 75 mg PO QAM Qty: 90 RF: 1 clonidine 0.1 mg/24 hr patch weekly See Rx Instructions .ROUTE .COMPLEX Qty: 4 RF: 5 cholecalciferol (vitamin D3) 50 mcg (2,000 unit) tablet 50 mcg PO DAILY Qty: 30 RF: 3 multivitamin Tablet 1 tab PO QAM RF: 0 promethazine 25 mg tablet 25 mg PO Q6H PRN (Reason: Nausea And Vomiting) RF: 0 capsaicin 0.025 % cream 1 applic topical QID Qty: 25 RF: 0 clonidine HCl 0.1 mg tablet 0.1 mg PO Q6 PRN (Reason: Systolic BP>180) Qty: 10 RF: 0 Discharge Problem: Nausea & vomiting Qualifiers: Vomiting type: unspecified Vomiting Intractability: unspecified Qualified Code(s): R11.2 - Nausea with vomiting, unspecified
[2020-10-29] MEDS ORDERED: SODIUM CHLORIDE 0.9% 500 ML IV SCH (11:30)
[2020-10-29 11:40] LABS: Basophils # (auto) 0.06 K/uL (0-0.2); Basophils % (auto) 0.3 %; Eosinophils # (auto) 0.02 K/uL (0-0.5); Eosinophils % (auto) 0.1 %; Hematocrit (blood only) 45.5 % (37-47); Hemoglobin 15.6 g/dL (12.0-16.0); Immature Granulocytes # (auto) 0.06 K/uL (0.00-0.02); Immature Granulocytes % (auto) 0.3 %; Lymphocytes # (auto) 2.37 K/uL (1.2-3.4); Lymphocytes % (auto) 11.9 %; Mean Corpuscular Hemoglobin 31.4 pg (25-34); Mean Corpuscular Hgb Conc 34.3 g/dL (32-36); Mean Corpuscular Volume 91.5 fL (80-100); Mean Platelet Volume 10.2 fL (7.4-10.4); Neutrophils # (auto) 16.61 K/uL (1.4-6.5); Neutrophils % (auto) 83.4 %; Platelet Count 471 K/uL (130-400); RDW Coefficient of Variation 13.6 % (11.5-14.5); RDW Standard Deviation 45.3 fL (36.4-46.3); Red Blood Count 4.97 M/uL (4.2-5.4); White Blood Count 19.92 K/uL (4.8-10.8)
[2020-10-29 11:58] LABS: Alanine Aminotransferase 36 U/L (12-78); Albumin Level 4.3 gm/dl (3.4-5.0); Aspartate Aminotransferase 21 U/L (15-37); BUN Creatinine Ratio 14.4 (10-20); Blood Urea Nitrogen 18 mg/dl (7-18); Calcium 9.6 mg/dl (8.5-10.1); Carbon Dioxide 16 mmol/L (21-32); Chloride 105 mmol/L (98-107); Creatinine Clr Calc Pharmacy 55.9 ml/min; Est GFR (African American) 57.6; Est GFR (Non-African American) 49.7; Glucose 184 mg/dl (70-99); Lipase 102 U/L (73-393); Magnesium 1.9 mg/dl (1.8-2.4); Potassium 3.6 mmol/L (3.5-5.1); Sodium 140 mmol/L (136-145)
[2020-10-29 12:11] LABS: Albumin Globulin Ratio 0.9 (0.9-2); Alkaline Phosphatase 130 U/L (45-117); Bilirubin,Total 0.3 mg/dl (0.2-1); Globulin 4.8 gm/dl (2.5-4.0); Total Protein 9.1 gm/dl (6.4-8.2); Troponin I < 0.015 ng/ml (0-0.045)
--- NOTE | 2020-10-29 12:27 | CT Scan Report ---
CT head/brain wo con CLINICAL HISTORY: 55 years-old Female with seizure. Acute seizure like activity TECHNIQUE: Multiple axial CT images of the head were obtained without contrast. A dose lowering tech nique was utilized adhering to the principles of ALARA. COMPARISON: Head CT 07/17/2020 FINDINGS: No acute intracranial hemorrhage, midline shift, intracranial mass, hydrocephalus, territorial ischem ia or abnormal extra-axial collection. Patchy white matter hypodensities. The calvarium is intact. Prior bilateral lens repair. The paranasal sinuses, mastoid air cells, and m iddle ear cavities are clear. IMPRESSION: 1. No acute intracranial abnormality. 2. Nonspecific white matter hypodensities redemonstrated. ACT 112: Negative or not required by law. The above report was generated using voice recognition software. It may contain grammatical, syntax o r spelling errors. Electronically signed by: Anam Jimenez M.D. 10/29/2020 12:26 PM
--- NOTE | 2020-10-29 12:34 | CT Scan Report ---
ABDOMEN AND PELVIS CT WITHOUT CONTRAST CT DOSE: 2458.08 mGy.cm HISTORY: Acute nausea nausea, vomiting TECHNIQUE: Multiaxial CT images of the abdomen and pelvis were performed without contrast. A dose lo wering technique was utilized adhering to the principles of ALARA. COMPARISON STUDY: CT abdomen and pelvis 04/12/2020 FINDINGS: The imaged inferior cardiac chambers are unremarkable. Emphysema. Clear lung bases. There a re a few fissural nodules of the left midlung which are partially imaged measuring up to 6 mm suggest abhishek of benign lymph nodes. Limited exam secondary to upper positioning and lack of contrast. No pneum atosis or peritoneum. Unremarkable spleen, pancreas, adrenal glands, mildly contracted gallbladder and liver appear unremar kable. Kidneys and ureters are unremarkable. Urinary bladder is unremarkable. Hysterectomy. No adnexa l mass lesion. Small fat filled left inguinal hernia. Calcified plaque of the abdominal aorta. There is no adenopathy. No bowel obstruction or bowel wall thickening. Colonic diverticulosis. Decompressed large bowel. No a scites or mesenteric inflammation. Unremarkable appendix. Surgical clips are noted involving the asce nding colon. No acute fracture. Transitional lumbosacral anatomy. IMPRESSION: 1. No acute intra-abdominal or intrapelvic abnormality. 2. No bowel obstruction or bowel wall thickening. Normal appendix. 3. Colonic diverticulosis. ACT 112: Negative or not required by law. The above report was generated using voice recognition software. It may contain grammatical, syntax o r spelling errors. Electronically signed by: Anam Jimenez M.D. 10/29/2020 12:33 PM
[2020-10-29] MEDS ORDERED: LORazepam 1 MG/2 ML VIAL IV STA (12:49)
[2020-10-29] MEDS ORDERED: PROMETHAZINE 6.25 MG/50.25 ML BAG IV STA (12:49)
[2020-10-29] MEDS ORDERED: SODIUM CHLORIDE 0.9% 1000ML 1,000 ML IV ONE (13:17)
[2020-10-29 15:01] LABS: Appearance Urine Clear (Clear); Bacteria Urine Automated Negative (Negative); Bilirubin Urine Negative (Negative); Blood Urine 3+ (Negative); Color Urine Yellow; Epithelial Cell Urine Auto >30 /lpf (0-5); Glucose Urine UA Negative (Negative); Ketones Urine Trace (Negative); Leukocyte Esterase Urine Negative (Negative); Nitrite Urine Negative (Negative); Protein Urine 3+ (Negative); RBC Urine Automated >30 /hpf (0-4); Specific Gravity Urine 1.016 (1.000-1.030); Urobilinogen Urine Negative (Negative)
[2020-10-29 15:02] LABS: Influenza A virus by PCR Negative (Neg); Influenza B virus by PCR Negative (Neg); RSV by PCR Negative (Neg); SARS CoV2 RNA(COVID-19) InHosp NEGATIVE (Negative)
[2020-10-29] MEDS ORDERED: LABETALOL HCL IV 5 MG/ML 20ML IV STA ×3 (15:17→17:57)
--- NOTE | 2020-10-29 15:17 | Electrocardiogram Report ---
Test Reason : Blood Pressure : / mmHG Vent. Rate : 110 BPM Atrial Rate : 110 BPM P-R Int : 196 ms QRS Dur : 094 ms QT Int : 336 ms P-R-T Axes : 063 002 061 degrees QTc Int : 454 ms Sinus tachycardia Possible Left atrial enlargement Nonspecific ST and T wave abnormality Abnormal ECG When compared with ECG of 12-APR-2020 04:59, No significant change Confirmed by Boo Vega ([id number]) on 10/29/2020 3:17:18 PM Referred By: REFERRED SELF Confirmed By:Boo Vega
[2020-10-29 15:27] LABS: Amphetamines+Metham, Urine Neg (Neg); Barbiturates, Urine Neg (Neg); Benzodiazepine, Urine Neg (Neg); Cocaine, Urine Neg (Neg); MDMA (Ecstacy), Urine Neg (Neg); Methadone, Urine Neg (Neg); Opiate, Urine Neg (Neg); Phencyclidine, Urine Neg (Neg)
--- NOTE | 2020-10-29 15:30 | Magnetic Resonance Report ---
MR brain wo con HISTORY: 55 years-old Female ?seizure, htn acute seizure like activity with hypertension COMPARISON: Head CT 10/29/2020, brain MRI 08/18/2019 TECHNIQUE: Multiplanar multisequence MRI of the brain was obtained without the use of IV contrast. FINDINGS: Joint Runner localizer images demonstrate no gross extracranial abnormality. There is no restricted diffusio n to suggest acute or subacute infarct. Motion degraded exam. May sequences were repeated. No acute i ntracranial hemorrhage, midline shift, abnormal extra-axial collection, hydrocephalus or intracranial mass. Moderate T2/flair hyperintensities about the white matter redemonstrated within the subcortica l, deep and periventricular distributions additionally, there is increased T2/FLAIR cortical based si gnal within the posterior parietal lobes to the vertex on image 22 series 11. Cerebral venous sinuses and major arterial flow voids are patent. Left mastoid effusion. Right mastoi d air cells are clear. Mild mucosal thickening of the paranasal sinuses. The skull, orbits and soft t issues are unremarkable. IMPRESSION: 1. Markedly motion degraded exam. 2. Increased T2/FLAIR cortical-based signal within the posterior parietal lobes near the vertex is wolfe ggestive of posterior reversible encephalopathy syndrome (PRES). 2. No acute or subacute infarct. 3. Moderate T2/FLAIR hyperintensities are redemonstrated within the white matter suggestive of age ad vanced chronic microvascular ischemic disease versus a demyelinating process. ACT 112: Negative or not required by law. The above report was generated using voice recognition software. It may contain grammatical, syntax o r spelling errors. Electronically signed by: Anam Jimenez M.D. 10/29/2020 3:29 PM
[2020-10-29] MEDS ORDERED: levETIRAcetam 1,500 MG in 0.9 % SODIUM CHLORIDE 100 ML IV STA (15:33)
--- NOTE | 2020-10-29 17:28 | History & Physical Report ---
Date of Service October 29, 2020 Assessment & Plan (1) PRES (posterior reversible encephalopathy syndrome): Patient with PRES suggestive on MRI- headache without encephalopathy on admission - Hypertensive on admission- resistant to IV Labetalol dosing in the EMD; although not optimized; however still requires controlled lowering of MAP - Unsure of what patient actually was able to keep down this morning. - ICU admission to better control her BP and MAPS- with reported seizures, no other end organs effected - Goal Maps reduce by 20% and then titrate down over night (2) Seizure: Re-loaded on other Keppra in the EMD 1500MG IV - 1000 mg Q12 titrate up if needed, next dose at 0300. ICU can adjust dose if desired - Likely combination of marijuana and uncontrolled BP - Non infectious at this time; leukocytosis likely related from her emesis and seizure episode - NLR 8:1, Urine contaminant. (3) CAD (coronary artery disease): Continue to treat blood pressure goal following ICU stay would be preferred <140 - Continue ARB, BB, and Plavix - Not on statin as outpatient- ? intolerance will need further follow up - ECHO while in house - CXR for evaluation of cardio-pulmonary (4) Nausea & vomiting: Likely related to Marijuana use - Can't be excluded of HTN Emergency cause so will treat accordingly (5) Cyclic vomiting syndrome: No acute needs - N/V resolved - antiemtics PRN (6) Hyperlipidemia: Not on statin as above - Lipids in morning- follow (7) Marijuana dependence: Education and counseling after ICU stay. History of Present Illness Chief Complaint: n/v seizure Primary Care Provider: Teena Killian, DO 55 YOF with past medical history significant for HTN, Seizures, PRES, cyclic vomiting syndrome, cannabinoid hyperemesis syndrome, CAD, HLD. Patient shows up to the emergency room after calling EMS for seizure at home. Patient awoke this morning with nausea, she tried to take her medications but as soon as she did, she continued to vomit and around 10am per her , she had a seizure which involved her shaking her arms and legs and no loss of consciousness. Of note they did use marijuana last night. The patient also reportedly had a seizure when getting [place] bed, where she felt like she was going to seize and grabbed on to EMS. This episode reported by nursing lasted <1 min and did not involve confusion, loss of bowel or bladder, and only involved upper extremities. Patient was previously on Keppra, but stopped secondary to other causes likely being precipitating cause of the seizures in the past. Her BP elevation is associated with a unilateral temporal headache, which is now "mostly gone". Patient had a similar admission to this in 2019. In the EMD the patient had a CT scan of the head, CT of abdomen and pelvis, and MRI of the head. MRI reports microvascular ischemic disease and suggestive PRES. Patient received Labetalol in the ED IV and MAPS remain in the 120-130's. I have spoken with the ICU for closer monitoring of her BP and neurological exam as she has been refractory to treatment so far. Goal MAP 100-110 SBP 160's, DBP- 90. Will start on Nicardipine drip with MAP titration. Appreciate the ICU assistance in managing this patient. Allergies Allergy/AdvReac Type Severity Reaction Status Date / Time napoles Allergy Intermediate Hives Verified 10/29/20 11:29 doxycycline Allergy Intermediate hives and Verified 10/29/20 11:29 vomitting Iodinated Contrast Media Allergy Intermediate GIANT Verified 10/29/20 11:29 HIVES , VOMITTING, BODY FEELS HOT loperamide Allergy Intermediate Hives and Verified 10/29/20 11:29 vomiting meperidine Allergy Intermediate HIVES, Verified 10/29/20 11:29 VOMITING prochlorperazine Allergy Intermediate N/V, Verified 10/29/20 11:29 ITCHINESS strawberry Allergy Intermediate HIVES Verified 10/29/20 11:29 tomato Allergy Intermediate HIVES Verified 10/29/20 11:29 iodine Allergy . Verified 10/29/20 11:29 latex AdvReac Mild RASH Verified 10/29/20 11:29 Home Medications Medication Instructions Recorded Confirmed Type multivitamin 1 tab PO QAM 12/16/18 10/29/20 History promethazine 25 mg PO Q6H PRN 07/17/19 10/29/20 History atorvastatin 80 mg tablet 80 mg PO HS #90 tab 04/04/20 10/29/20 Rx capsaicin 1 applic TOPICAL QID #25 g 04/09/20 10/29/20 Rx clonidine HCl 0.1 mg PO Q6 PRN #10 tab 04/14/20 10/29/20 Rx losartan 100 mg tablet 100 mg PO QAM #90 tab 06/13/20 10/29/20 Rx ondansetron 4 mg disintegrating 4 mg PO Q6H PRN #30 tab 08/01/20 10/29/20 Rx tablet amitriptyline 25 mg tablet 25 mg PO HS #90 tab 08/08/20 10/29/20 Rx amlodipine 5 mg tablet 5 mg PO DAILY #90 tab 08/08/20 10/29/20 Rx cholecalciferol (vitamin D3) 50 50 mcg PO DAILY #30 tab 08/29/20 10/29/20 Rx mcg (2,000 unit) tablet metoprolol succinate 100 mg 100 mg PO BID #90 tab 10/09/20 10/29/20 Rx tablet,extended release 24 hr clopidogrel 75 mg tablet 75 mg PO QAM #90 tab 10/16/20 10/29/20 Rx venlafaxine 75 mg capsule,extended 75 mg PO DAILY #30 cap 10/16/20 10/29/20 Rx release 24 hr clonidine 0.1 mg/24 hr weekly See Rx Instructions .ROUTE 10/27/20 10/29/20 Rx transdermal patch .COMPLEX #4 ea Past Med/Surg History Medical History Abnormal MRI of head Acute UTI Anxiety disorder CAD (coronary artery disease) Mild-moderate non-obstructive Carotid stenosis < 50% stenosis B/L per US 12/16/18 Cervical disc disorder Congestive heart failure, acute 06/2017, admitted [facility]. Ruled 2/2 Takasubo CM. Cyclic vomiting syndrome Diverticulitis Diverticulosis Gastritis Grief reaction Hematemesis Hematuria History of diverticulitis of colon History of gastritis History of hypotension Hot flashes due to menopause HTN (hypertension) Hx-TIA (transient ischemic attack) Hypercalcemia Hyperlipidemia Hypertension Hypertensive urgency Hypokalemia Marijuana dependence Multiple thyroid nodules New onset seizure 07/17/2019 NSTEMI (non-ST elevated myocardial infarction) 2017 [facility]. Cath performed showed mild to moderate non-obstructive CAD. PRES (posterior reversible encephalopathy syndrome) Pulmonary emphysema Takotsubo cardiomyopathy 2017. Admitted [facility], full cardiac workup including cath. EF at the time 40%, now resolved to 60-65% on echo 2018. Transient cerebrovascular ischemia Vitamin D deficiency Surgical History H/O cervical spine surgery ACDF C4-7 Dr. [place] History of cardiac cath 5-6 YR AGO - [facility] [place] ST[facility] (per pt report, this cath not noted in cardiology notes) 2017, NSTEMI. NO INTERVENTION. History of hernia surgery History of hysterectomy History of ovarian cystectomy S/P cervical discectomy Family History Father Family history of stomach cancer Stroke Myocardial infarction Malignant neoplasm of esophagus Stomach cancer Uncle Family history of cancer FAMILY HISTORY OF CANCER - UNCLE - VOCAL CORDS FAMILY HISTORY OF CANCER - AUNT - ? KIND Throat cancer Grandmother (Maternal) Breast cancer Bone cancer Mother No problems noted. Other No pertinent family history Denies family history of Colon cancer Ovarian cancer Prostate cancer Crohn's disease IBD (inflammatory bowel disease) Social History Smoking Status: Current some day smoker packs per day: 2; Years Smoked: 25; Second Hand Exposure: Yes; Do You Dip or Chew Tobacco: No; Tobacco Cessation Education Requested by Patient: No Hx Alcohol Use: Yes Alcohol type: beer Hx Substance Use: Yes Last Used Substance: Days (ago) Last Used Substance Other:: 10/28/20 Substance Use Type Other:: when zofran does not work Preferred Language: Romansh Communication Ability: Effective Visual Impairment: Limited Hearing Ability: Normal Headliner Installer Required: No Beliefs That Will Affect Care: None marital status: Current Living Situation: Spouse current occupational status: employed 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 Other Information That Helps Us Care for You: Yes Feels Safe at Home: Yes Childhood Exposure to Second-Hand Smoke: Yes caffeine: Yes (1 cup of coffee) during the past year weight has: other Dental Care, Regularly: No Physical Activity Frequency: Daily Physical Activity Frequency Comment: walking Seatbelt Use: always Sunscreen Use: Yes Assistive Devices: Denture - Upper and Denture - Lower Review of Systems Review of Systems: REVIEW OF SYSTEMS: Constitutional: No fever, sweats or chills Eyes: No diplopia, no worsening or blurred vision ENT: normal hearing, no trouble swallowing Respiratory: No cough, sputum, dyspnea at rest or on exertion Cardiovascular: No chest pain, tightness or palpitations Abdomen: No pain, nausea, vomiting, diarrhea or constipation Musculoskeletal: No joint pain, calf pain, swelling Neurologic: (+) hedache,; No weakness, numbness/tingling, or balance problems Psychiatric: No anxiety or depression Skin: No rash or itch Physical Exam Physical Exam: PHYSICAL EXAM: General: awake, alert, no apparent distress Head: Normocephalic, atraumatic ENT: PERRL, EOMI, no pharyngeal exudate, mucous membranes moist Neuro: AAO x 3, speech clear and appropriate, strength intact bilaterally 5/5, sensation intact and equal all extremities and dermatomes, no pronator drift Chest: equal rise and fall of the chest, no accessory muscle use, no heaves or thrills, Clear to auscultation, on room air, Cardiac: Regular rate and rhythm, telemetry reviewed, skin warm dry, cap refill <3 seconds, peripheral pulses +2 no JVD, no murmur, no edema GI: NABS x 4 quadrants, soft, nontender to palpation, no rebound, guarding or tenderness : Spontaneously voiding, no pain, no CVA tenderness, Extremities: Normal inspection, no peripheral edema or erythema, calfs nontender to palpation Psych: Normal mood and affect Skin: no rash or erythema Results & Data Results & Data ([facility]) Vital Signs (Past 12 Hours) Vital Signs Temp Pulse Resp BP Pulse Ox 10/29/20 16:20 102 H 22 163/108 H 96 10/29/20 16:10 105 H 23 167/107 H 94 10/29/20 16:00 105 H 25 H 176/105 H 94 10/29/20 15:50 106 H 26 H 176/96 H 96 10/29/20 15:40 106 H 19 170/98 H 96 10/29/20 15:30 105 H 14 162/104 H 96 10/29/20 15:14 106 H 16 200/105 H 96 10/29/20 12:22 111 H 25 H 167/115 H 95 10/29/20 11:36 118 H 24 147/101 H 96 10/29/20 11:20 108 H 17 205/127 H 96 10/29/20 11:07 37 C 105 H 16 162/113 H 96 10/29/20 11:03 126 H 37 H 162/113 H 97 Laboratory Results Abnormal lab results 10/29/20 10/29/20 10/29/20 Range/Units 11:20 11:20 12:43 WBC 19.92 H (4.8-10.8) K/uL Plt Count 471 H (130-400) K/uL Neut # (Auto) 16.61 H (1.4-6.5) K/uL [place] # (Auto) 0.80 H (0.11-0.59) K/uL Immature Gran # (Auto) 0.06 H (0.00-0.02) K/uL Carbon Dioxide 16 L (21-32) mmol/L Anion Gap 19.0 H (3-11) Creatinine 1.23 H (0.6-1.2) mg/dl Glucose 184 H (70-99) mg/dl Lactate 5.7 H* (0.4-2.0) mmol/L Alkaline Phosphatase 130 H (45-117) U/L Total Protein 9.1 H (6.4-8.2) gm/dl Globulin 4.8 H (2.5-4.0) gm/dl Urine Protein (Negative) Urine Ketones (Negative) Urine Blood (Negative) Urine RBC (Auto) (0-4) /hpf U Epithel Cells (Auto) (0-5) /lpf U Marijuana (THC) Screen (Neg) 10/29/20 10/29/20 Range/Units 14:50 14:50 WBC (4.8-10.8) K/uL Plt Count (130-400) K/uL Neut # (Auto) (1.4-6.5) K/uL [place] # (Auto) (0.11-0.59) K/uL Immature Gran # (Auto) (0.00-0.02) K/uL Carbon Dioxide (21-32) mmol/L Anion Gap (3-11) Creatinine (0.6-1.2) mg/dl Glucose (70-99) mg/dl Lactate (0.4-2.0) mmol/L Alkaline Phosphatase (45-117) U/L Total Protein (6.4-8.2) gm/dl Globulin (2.5-4.0) gm/dl Urine Protein 3+ H (Negative) Urine Ketones Trace H (Negative) Urine Blood 3+ H (Negative) Urine RBC (Auto) >30 H (0-4) /hpf U Epithel Cells (Auto) >30 H (0-5) /lpf U Marijuana (THC) Screen Pos H (Neg) Diagnostic Findings CT head/brain wo con CLINICAL HISTORY: 55 years-old Female with seizure. Acute seizure like activity TECHNIQUE: Multiple axial CT images of the head were obtained without contrast. A dose lowering technique was utilized adhering to the principles of ALARA. COMPARISON: Head CT 07/17/2020 FINDINGS: No acute intracranial hemorrhage, midline shift, intracranial mass, hydrocephalus, territorial ischemia or abnormal extra-axial collection. Patchy white matter hypodensities. The calvarium is intact. Prior bilateral lens repair. The paranasal sinuses, mastoid air cells, and middle ear cavities are clear. IMPRESSION: 1. No acute intracranial abnormality. 2. Nonspecific white matter hypodensities redemonstrated. ABDOMEN AND PELVIS CT WITHOUT CONTRAST CT DOSE: 2458.08 mGy.cm HISTORY: Acute nausea nausea, vomiting TECHNIQUE: Multiaxial CT images of the abdomen and pelvis were performed without contrast. A dose lowering technique was utilized adhering to the principles of ALARA. COMPARISON STUDY: CT abdomen and pelvis 04/12/2020 FINDINGS: The imaged inferior cardiac chambers are unremarkable. Emphysema. Clear lung bases. There are a few fissural nodules of the left midlung which are partially imaged measuring up to 6 mm suggestive of benign lymph nodes. Limited exam secondary to upper positioning and lack of contrast. No pneumatosis or peritoneum. Unremarkable spleen, pancreas, adrenal glands, mildly contracted gallbladder and liver appear unremarkable. Kidneys and ureters are unremarkable. Urinary bladder is unremarkable. Hysterectomy. No adnexal mass lesion. Small fat filled left inguinal hernia. Calcified plaque of the abdominal aorta. There is no adenopathy. No bowel obstruction or bowel wall thickening. Colonic diverticulosis. Decompressed large bowel. No ascites or mesenteric inflammation. Unremarkable appendix. Surgical clips are noted involving the ascending colon. No acute fracture. Transitional lumbosacral anatomy. IMPRESSION: 1. No acute intra-abdominal or intrapelvic abnormality. 2. No bowel obstruction or bowel wall thickening. Normal appendix. 3. Colonic diverticulosis. MR brain wo con HISTORY: 55 years-old Female ?seizure, htn acute seizure like activity with hypertension COMPARISON: Head CT 10/29/2020, brain MRI 08/18/2019 TECHNIQUE: Multiplanar multisequence MRI of the brain was obtained without the use of IV contrast. FINDINGS: Sleeve Fixer localizer images demonstrate no gross extracranial abnormality. There is no restricted diffusion to suggest acute or subacute infarct. Motion degraded exam. May sequences were repeated. No acute intracranial hemorrhage, midline shift, abnormal extra-axial collection, hydrocephalus or intracranial mass. Moderate T2/flair hyperintensities about the white matter redemonstrated within the subcortical, deep and periventricular distributions additionally, there is increased T2/FLAIR cortical based signal within the posterior parietal lobes to the vertex on image 22 series 11. Cerebral venous sinuses and major arterial flow voids are patent. Left mastoid effusion. Right mastoid air cells are clear. Mild mucosal thickening of the paranasal sinuses. The skull, orbits and soft tissues are unremarkable. IMPRESSION: 1. Markedly motion degraded exam. 2. Increased T2/FLAIR cortical-based signal within the posterior parietal lobes near the vertex is suggestive of posterior reversible encephalopathy syndrome (PRES). 2. No acute or subacute infarct. 3. Moderate T2/FLAIR hyperintensities are redemonstrated within the white matter suggestive of age advanced chronic microvascular ischemic disease versus a demyelinating process . Medications Administered Discontinued Medications Acetaminophen (Acetaminophen 500 Mg Tab) 1,000 mg PO NOW STA Stop: 10/29/20 11:22 Last Admin: 10/29/20 11:40 Dose: 1,000 mg Documented by: [id number] Sodium Chloride (Nss) 500 mls @ 999 mls/hr IV .Q31M MIKE Stop: 10/29/20 12:00 Last Infusion: 10/29/20 15:11 Dose: 0 mls/hr Documented by: [id number] Admin: 10/29/20 11:40 Dose: 999 mls/hr Documented by: [id number] Lorazepam (Ativan) 1 mg in 2 mls @ 2 mls/min IV NOW STA Stop: 10/29/20 12:50 Last Admin: 10/29/20 12:57 Dose: 2 mls/min Documented by: [id number] Promethazine HCl (Phenergan) 6.25 mg in 50.25 mls @ 201 mls/hr IV NOW STA Stop: 10/29/20 13:03 Last Infusion: 10/29/20 13:15 Dose: 0 mls/hr Documented by: [id number] Admin: 10/29/20 12:59 Dose: 201 mls/hr Documented by: [id number] Sodium Chloride (Nss 1000ml) 1,000 mls @ 999 mls/hr IV .Q1H1M ONE Stop: 10/29/20 14:17 Last Infusion: 10/29/20 16:42 Dose: 0 mls/hr Documented by: [id number] Admin: 10/29/20 15:24 Dose: 999 mls/hr Documented by: [id number] Levetiracetam 1,500 mg/ Sodium (Chloride) 115 mls @ 440 mls/hr IV NOW STA Stop: 10/29/20 15:47 Last Infusion: 10/29/20 16:31 Dose: 0 mls/hr Documented by: [id number] Admin: 10/29/20 16:05 Dose: 440 mls/hr Documented by: [id number] Labetalol HCl (Labetalol Hcl Iv 5 Mg/Ml 20ml) 10 mg IV NOW STA Stop: 10/29/20 15:18 Last Admin: 10/29/20 15:22 Dose: 10 mg Documented by: [id number] Cosigned by: [id number] Labetalol HCl (Labetalol Hcl Iv 5 Mg/Ml 20ml) 10 mg IV NOW STA Stop: 10/29/20 15:45 Last Admin: 10/29/20 16:05 Dose: 10 mg Documented by: [id number] Cosigned by: [id number] Ondansetron HCl (Ondansetron Inj 2 Mg/Ml 2 Ml Vial) 4 mg IV NOW STA Stop: 10/29/20 11:21 Last Admin: 10/29/20 11:40 Dose: 4 mg Documented by: [id number] Home Medications multivitamin 1 tab PO QAM 12/16/18 [History Confirmed 10/29/20] promethazine 25 mg PO Q6H PRN 07/17/19 [History Confirmed 10/29/20] atorvastatin 80 mg tablet 80 mg PO HS #90 tab 04/04/20 [Rx Confirmed 10/29/20] capsaicin 1 applic TOPICAL QID #25 g 04/09/20 [Rx Confirmed 10/29/20] clonidine HCl 0.1 mg PO Q6 PRN #10 tab 04/14/20 [Rx Confirmed 10/29/20] losartan 100 mg tablet 100 mg PO QAM #90 tab 06/13/20 [Rx Confirmed 10/29/20] ondansetron 4 mg disintegrating tablet 4 mg PO Q6H PRN #30 tab 08/01/20 [Rx Confirmed 10/29/20] amitriptyline 25 mg tablet 25 mg PO HS #90 tab 08/08/20 [Rx Confirmed 10/29/20] amlodipine 5 mg tablet 5 mg PO DAILY #90 tab 08/08/20 [Rx Confirmed 10/29/20] cholecalciferol (vitamin D3) 50 mcg (2,000 unit) tablet 50 mcg PO DAILY #30 tab 08/29/20 [Rx Confirmed 10/29/20] metoprolol succinate 100 mg tablet,extended release 24 hr 100 mg PO BID #90 tab 10/09/20 [Rx Confirmed 10/29/20] clopidogrel 75 mg tablet 75 mg PO QAM #90 tab 10/16/20 [Rx Confirmed 10/29/20] venlafaxine 75 mg capsule,extended release 24 hr 75 mg PO DAILY #30 cap 10/16/20 [Rx Confirmed 10/29/20] clonidine 0.1 mg/24 hr weekly transdermal patch See Rx Instructions .ROUTE .COMPLEX #4 ea 10/27/20 [Rx Confirmed 10/29/20] ECG Additional Comments: Sinus tachycardia Possible Left atrial enlargement Nonspecific ST and T wave abnormality Abnormal ECG Code Status & VTE Plan Code Status CODE: FULL VTE: SCD's, Lovenox Supervising Physician Co-Signing Physician Notes Patient was seen and examined independently I discussed the case with Aditya BANKS I reviewed pertinent past medical social family history and also the plan of care and agree with the plan of care. Patient was seen in accompaniment of her significant other who is complaining of some mild frontal headache she is complaining of some dyspepsia her blood pressure was better controlled but still elevated. Examination showed no definite neuro deficits were noted card exam is regular without gallops lungs were clear Patient had questionable seizure by his description the ER states she was con scious during the event patient had findings of RPLS subsequently be placed in the intensive care unit for blood pressure management and neurological evaluation Any exceptions will be noted below PG Care Time/CCT Total # of Minutes Spent Total Time Spent with Patient: Total time spent is greater than 50% in coordination of care (as documented) at patient's floor/unit and/or counseling patient: Coding Level of Care Code 74508 Initial Inpt Care Lvl 3 Diagnoses PRES (posterior reversible encephalopathy syndrome) I67.83 Seizure R56.9 CAD (coronary artery disease) I25.10 Associated angina: without angina Coronary Disease-Associated Artery/Lesion type: [place] artery [place] vs. transplanted heart: [place] heart Nausea & vomiting R11.2 Vomiting Intractability: unspecified Vomiting type: unspecified Cyclic vomiting syndrome R11.15 Hyperlipidemia E78.5 Hyperlipidemia type: unspecified Marijuana dependence F12.20 (1) CAD (coronary artery disease) Associated angina: without angina Coronary Disease-Associated Artery/Lesion type: [place] artery [place] vs. transplanted heart: [place] heart Qualified C ode(s): I25.10 - Atherosclerotic heart disease of [place] coronary artery without angina pectoris (2) Hyperlipidemia Hyperlipidemia type: unspecified Qualified Code(s): E78.5 - Hyperlipidemia, unspecified (3) Nausea & vomiting Vomiting Intractability: unspecified Vomiting type: unspecified Qualified Code(s): R11.2 - Nausea with vomiting, unspecified
--- NOTE | 2020-10-29 18:07 | XRay Report ---
XR chest 1V portable HISTORY: 55 years-old Female sob acute hematemesis with shortness of breath COMPARISON: Chest radiograph 04/09/2020 TECHNIQUE: Portable AP view of the chest FINDINGS: Cardiomediastinal and hilar silhouettes are within normal limits. No pneumothorax, pleural effusion, airspace consolidation or overt pulmonary edema. Bones of the chest appear grossly intact. Healed chr onic right posterolateral seventh rib fracture. Cervical spinal fusion hardware. IMPRESSION: No acute process. ACT 112: Negative or not required by law. The above report was generated using voice recognition software. It may contain grammatical, syntax o r spelling errors. Electronically signed by: Anam Jimenez M.D. 10/29/2020 6:06 PM
[2020-10-29] MEDS ORDERED: STAT IV Infusion **Titration per Protocol STA ×2 (18:19→21:33)
[2020-10-29] MEDS ORDERED: ICU PROTOCOL FOR HYPERGLYCEMIA PRN (18:19)
[2020-10-29] MEDS: niCARdipine 25 MG in SODIUM CHLORIDE 0.9% 240 ML IV SCH ×2 (18:37→22:34)
[2020-10-29] MEDS ORDERED: ALUMINUM/MAGNESIUM SUSP 18 ML, LIDOCAINE HCL VISCOUS 2% 6 ML, BARCODE IDENTIFIER 1 EA PO ONE (18:58)
[2020-10-29] MEDS ORDERED: cloNIDine HCL 0.1 MG TAB PO ONE (19:00)
[2020-10-29] MEDS ORDERED: ONDANSETRON INJ 2 MG/ML 2 ML VIAL IV PRN (19:22)
--- NOTE | 2020-10-29 19:31 | Critical Care Consultation ---
Date of Consultation October 29, 2020 Assessment & Plan (1) PRES (posterior reversible encephalopathy syndrome): Reason Critically Ill: 55-year-old female presents to the ICU with hypertensive emergency and PRES, requiring nicardipine drip. Neuro - PRESMRI impression: increased T2/flair cortical-based signal within the posterior parietal lobes near the vertex is suggestive of posterior reversible encephalopathy syndrome -See hypertensive emergency management -Seizures?Patient with 2 witnessed episodes of upper and lower extremity convulsions/tremors? -Loaded with Keppra in ED -No further activity since arrival to the hospital, will monitor closely. Consider consulting neurology Nausea/vomitingimproving -Zofran as needed -Etiology may be related to cannabinoid hyperemesis syndrome, encourage discontinuing use of this drug -Cannot rule out infectious process, see below -Also could be related to hypertensive emergency, see below Anxiety disordercontinue home meds Cardiac - Hypertensive emergencyinitial SBP 200 on arrival to ER, labetalol ineffective and started on nicardipine drip. -Patient states she was unable to take meds due to nausea this morning -Goal SBP 140s to 160s overnight. Wean nicardipine as indicated -Restart home meds. Will give dose of clonidine 0.1 mg x 1 CAD/HLDcontinue Plavix, statin, BB Respiratory - Emphysemapatient currently maintaining oxygen saturation on room air, no issues at this time -Chest x-ray without acute process -DuoNeb as needed -Monitor on continuous pulse ox GI - Diverticulosisnoted on CT abdomen and pelvis -Reports diarrhea this morning but none since admission to the hospital -Monitor RENAL/LYTES - AKIinitial creatinine in the ED 1.23 with baseline 0.8 -Improved with IV fluid resuscitation -Avoid nephrotoxins and renally adjust medications -Trend with routine BMPs Lactic acidosismay be elevated due to seizures, improving -Cannot rule out infectious etiology at this time -Trend - Strict I's and O's ENDO - No history of diabetes, A1c from March 08 0.9 -ICU hyperglycemic protocol TSH within normal limits HEME - H&H stable, monitor routine CBCs ID - Sepsis?Patient with low-grade fever 38.1, leukocytosis, elevated lactate. Procalcitonin not elevated -Blood cultures pending, UA unremarkable for infectious process. No active disease noted on chest x-ray -LFTs and lipase normal. CT abdomen largely unremarkable with noted diverticulosis. -Continue empiric Zosyn with 48-hour stop while cultures pending. Trend WBC and monitor fever curve LINES/IV ACCESS - Peripheral IVs DVT PROPHYLAXIS - Car Salvador I have personally spent 38 minutes of critical care time in the direct management of this patient. This is a life/limb threatening event. This includes time spent evaluating patient, direct bedside care, chart review, placing orders, interpretation of diagnostic studies, discussion with consultants, patient, and family members, as well as other required patient management activities. This time is exclusive of all separately billable procedures, and teaching time and separate from and in addition to any other critical care service time. Thank you for allowing us to participate in the care of this patient. Please refer to my attending physician's documentation for any further recommendations. (2) Seizure: (3) Hypertensive emergency: (4) Nausea & vomiting: (5) Cyclic vomiting syndrome: (6) Vitamin D deficiency: (7) HTN (hypertension): (8) Cannabinoid hyperemesis syndrome: (9) CAD (coronary artery disease): (10) Carotid stenosis: (11) Hyperlipidemia: (12) Diverticulosis: (13) Anxiety disorder: (14) Hx-TIA (transient ischemic attack): (15) Marijuana dependence: (16) Pulmonary emphysema: History of Present Illness Attending Physician: Armando Cedeno MD History of Present Illness 55-year-old female with PMH including HTN, seizures, PRES, cannabinoid hyperemesis syndrome, CAD, HLD who presents to the emergency department via EMS after experiencing seizure-like cavity at home. Patient states that she started having nausea and vomiting with diarrhea around 1 AM this morning and was unable to take her medications this morning. Around 10 AM, patient had questionable seizure-like activity where she was shaking her arms and legs which was witnessed by . During this event patient did not lose consciousness. EMS presented to the patient's home and she had a another episode which was similar on in which the patient again did not lose consciousness, but continued to have tremors like shaking in the arms and legs. In the emergency department patient is complaining of headache and was significantly hypertensive with SBP in the 200s. She had elevated lactate and leukocytosis. She was sent for CT head which was negative for acute intracranial findings. CT of the abdomen and pelvis was fairly unremarkable and showed some colonic diverticulosis. Patient underwent MRI of the head which was suggestive of PRES. She was given IV labetalol with minimal response and was started on nicardipine drip. She was also loaded with Keppra. Patient transferred to the ICU for management of vasoactive drips. On arrival to the ICU the patient is alert and oriented and is no longer experiencing nausea or vomiting. She complains of a dull headache which is much improved from earlier. SBP's are now in the 160s with maps in the low 100s with nicardipine drip. She states she has not had any episodes of diarrhea or vomiting, or seizure like activity since arrival to the hospital. She currently denies dizziness or syncopal episodes, visual changes, recent fevers or illness, respiratory symptoms, shortness of breath, chest pain or palpitations, abdominal pain, burning or hesitancy with urination. She denies any weakness or numbness or changes in gait. Will restart oral antihypertensives and try to wean nicardipine drip with goal SBP 150s to 160s. Allergies Allergy/AdvReac Type Severity Reaction Status Date / Time napoles Allergy Intermediate Hives Verified 10/29/20 11:29 doxycycline Allergy Intermediate hives and Verified 10/29/20 11:29 vomitting Iodinated Contrast Media Allergy Intermediate GIANT Verified 10/29/20 11:29 HIVES , VOMITTING, BODY FEELS HOT loperamide Allergy Intermediate Hives and Verified 10/29/20 11:29 vomiting meperidine Allergy Intermediate HIVES, Verified 10/29/20 11:29 VOMITING prochlorperazine Allergy Intermediate N/V, Verified 10/29/20 11:29 ITCHINESS strawberry Allergy Intermediate HIVES Verified 10/29/20 11:29 tomato Allergy Intermediate HIVES Verified 10/29/20 11:29 iodine Allergy . Verified 10/29/20 11:29 latex AdvReac Mild RASH Verified 10/29/20 11:29 Home Medications Medication Instructions Recorded Confirmed Type multivitamin 1 tab PO QAM 12/16/18 10/29/20 History promethazine 25 mg PO Q6H PRN 07/17/19 10/29/20 History atorvastatin 80 mg tablet 80 mg PO HS #90 tab 04/04/20 10/29/20 Rx capsaicin 1 applic TOPICAL QID #25 g 04/09/20 10/29/20 Rx clonidine HCl 0.1 mg PO Q6 PRN #10 tab 04/14/20 10/29/20 Rx losartan 100 mg tablet 100 mg PO QAM #90 tab 06/13/20 10/29/20 Rx ondansetron 4 mg disintegrating 4 mg PO Q6H PRN #30 tab 08/01/20 10/29/20 Rx tablet amitriptyline 25 mg tablet 25 mg PO HS #90 tab 08/08/20 10/29/20 Rx amlodipine 5 mg tablet 5 mg PO DAILY #90 tab 08/08/20 10/29/20 Rx cholecalciferol (vitamin D3) 50 50 mcg PO DAILY #30 tab 08/29/20 10/29/20 Rx mcg (2,000 unit) tablet metoprolol succinate 100 mg 100 mg PO BID #90 tab 10/09/20 10/29/20 Rx tablet,extended release 24 hr clopidogrel 75 mg tablet 75 mg PO QAM #90 tab 10/16/20 10/29/20 Rx venlafaxine 75 mg capsule,extended 75 mg PO DAILY #30 cap 10/16/20 10/29/20 Rx release 24 hr clonidine 0.1 mg/24 hr weekly See Rx Instructions .ROUTE 10/27/20 10/29/20 Rx transdermal patch .COMPLEX #4 ea Patient History Medical History Abnormal MRI of head Acute UTI Anxiety disorder CAD (coronary artery disease) Mild-moderate non-obstructive Carotid stenosis < 50% stenosis B/L per US 12/16/18 Cervical disc disorder Congestive heart failure, acute 06/2017, admitted [facility]. Ruled 2/2 Takasubo CM. Cyclic vomiting syndrome Diverticulitis Diverticulosis Gastritis Grief reaction Hematemesis Hematuria History of diverticulitis of colon History of gastritis History of hypotension Hot flashes due to menopause HTN (hypertension) Hx-TIA (transient ischemic attack) Hypercalcemia Hyperlipidemia Hypertension Hypertensive urgency Hypokalemia Marijuana dependence Multiple thyroid nodules New onset seizure 07/17/2019 NSTEMI (non-ST elevated myocardial infarction) 2017 [facility]. Cath performed showed mild to moderate non-obstructive CAD. PRES (posterior reversible encephalopathy syndrome) Pulmonary emphysema Takotsubo cardiomyopathy 2016. Admitted [facility], full cardiac workup including cath. EF at the time 40%, now resolved to 60-65% on echo 2018. Transient cerebrovascular ischemia Vitamin D deficiency Surgical History H/O cervical spine surgery ACDF C4-7 Dr. [place] History of cardiac cath 5-6 YR AGO - [place] - NO STENTS (per pt report, this cath not noted in cardiology notes) 2017, NSTEMI. NO INTERVENTION. History of hernia surgery History of hysterectomy History of ovarian cystectomy S/P cervical discectomy Family History Father Family history of stomach cancer Stroke Myocardial infarction Malignant neoplasm of esophagus Stomach cancer Uncle Family history of cancer FAMILY HISTORY OF CANCER - UNCLE - VOCAL CORDS FAMILY HISTORY OF CANCER - AUNT - ? KIND Throat cancer Grandmother (Maternal) Breast cancer Bone cancer Mother No problems noted. Other No pertinent family history Denies family history of Colon cancer Ovarian cancer Prostate cancer Crohn's disease IBD (inflammatory bowel disease) Social History Smoking Status: Current some day smoker packs per day: 2; Years Smoked: 25; Second Hand Exposure: Yes; Do You Dip or Chew Tobacco: No; Tobacco Cessation Education Requested by Patient: No Hx Alcohol Use: Yes Alcohol type: beer Hx Substance Use: Yes Last Used Substance: Days (ago) Last Used Substance Other:: 10/28/20 Substance Use Type Other:: when zofran does not work Preferred Language: Czech Communication Ability: Effective Visual Impairment: Limited Hearing Ability: Normal Pitching Coach Required: No Beliefs That Will Affect Care: None marital status: Current Living Situation: Spouse current occupational status: employed 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 Other Information That Helps Us Care for You: Yes Feels Safe at Home: Yes Childhood Exposure to Second-Hand Smoke: Yes caffeine: Yes (1 cup of coffee) during the past year weight has: other Dental Care, Regularly: No Physical Activity Frequency: Daily Physical Activity Frequency Comment: walking Seatbelt Use: always Sunscreen Use: Yes Assistive Devices: None Review of Systems Review of Systems: All systems reviewed & are unremarkable except as noted in HPI & below Physical Exam Constitutional: cooperative and comfortable Eyes: PERRL, conjunctivae normal, anicteric sclerae ENMT: external ear and nose normal, oropharynx normal Neck: trachea midline, no thyromegaly Respiratory: normal respiratory effort, lungs clear to auscultation Cardiovascular: RRR, no murmur, no edema Heart Sounds: normal S1 and normal S2 Vessels: no JVD Extremities: normal capillary refill; no edema Gastrointestinal (Abdomen): normal bowel sounds, soft, nontender, no hepatosplenomegaly Skin: no rashes, warm and dry Neurologic: PERRL, EOMI, accommodation nl, no face palsy, no dysarthria Psychiatric: A+Ox3, euthymic affect Results & Data Results & Data ([facility]) Vital Signs (Past 12 Hours) Vital Signs Temp Pulse Pulse Resp BP BP Pulse Ox 10/29/20 18:15 37.5 C 109 H 20 167/100 H 96 10/29/20 17:31 107 H 24 186/119 H 95 10/29/20 17:30 105 H 22 93 10/29/20 17:22 117 H 24 98 10/29/20 17:21 117 H 20 175/102 H 96 10/29/20 17:10 103 H 20 150/115 H 97 10/29/20 17:00 106 H 26 H 101/62 95 10/29/20 16:50 109 H 23 115/78 96 10/29/20 16:40 112 H 23 163/107 H 96 10/29/20 16:30 104 H 25 H 159/101 H 95 10/29/20 16:20 102 H 22 163/108 H 96 10/29/20 16:10 105 H 23 167/107 H 94 10/29/20 16:00 105 H 25 H 176/105 H 94 10/29/20 15:50 106 H 26 H 176/96 H 96 10/29/20 15:40 106 H 19 170/98 H 96 10/29/20 15:30 105 H 14 162/104 H 96 10/29/20 15:14 106 H 16 200/105 H 96 10/29/20 12:22 111 H 25 H 167/115 H 95 10/29/20 11:36 118 H 24 147/101 H 96 10/29/20 11:20 108 H 17 205/127 H 96 10/29/20 11:07 37 C 105 H 16 162/113 H 96 10/29/20 11:03 126 H 37 H 162/113 H 97 Coding Level of Care Code Critical Care 1st 30-74 mins Diagnoses PRES (posterior reversible encephalopathy syndrome) I67.83 Seizure R56.9 Hypertensive emergency I16.1 Nausea & vomiting R11.2 Vomiting Intractability: unspecified Vomiting type: unspecified Cyclic vomiting syndrome R11.15 Vitamin D deficiency E55.9 HTN (hypertension) I10 Cannabinoid hyperemesis syndrome F12.988 CAD (coronary artery disease) I25.10 Associated angina: without angina Coronary Disease-Associated Artery/Lesion type: [place] artery [place] vs. transplanted heart: [place] heart Carotid stenosis I65.29 Hyperlipidemia E78.5 Hyperlipidemia type: unspecified Diverticulosis K57.90 Anxiety disorder F41.9 Hx-TIA (transient ischemic attack) Z86.73 Marijuana dependence F12.20 Pulmonary emphysema J43.9 (1) CAD (coronary artery disease) Associated angina: without angina Coronary Disease-Associated Artery/Lesion type: [place] artery [place] vs. transplanted heart: [place] heart Qualified Code(s): I25.10 - Atherosclerotic heart disease of [place] coronary artery without angina pectoris (2) Hyperlipidemia Hyperlipidemia type: unspecified Qualified Code(s): E78.5 - Hyperlipidemia, unspecified (3) Nausea & vomiting Vomiting Intractability: unspecified Vomiting type: unspecified Qualified Code(s): R11.2 - Nausea with vomiting, unspecified
[2020-10-29] MEDS: ATORVASTATIN 40 MG TAB PO SCH (19:50)
[2020-10-29] MEDS: AMITRIPTYLINE HCL 25 MG TAB PO SCH (19:50)
[2020-10-29 20:14] LABS: Basophils # (auto) 0.03 K/uL (0-0.2); Basophils % (auto) 0.2 %; Hematocrit (blood only) 44.1 % (37-47); Immature Granulocytes # (auto) 0.06 K/uL (0.00-0.02); Immature Granulocytes % (auto) 0.4 %; Lymphocytes # (auto) 1.58 K/uL (1.2-3.4); Lymphocytes % (auto) 11.7 %; Mean Corpuscular Hemoglobin 30.7 pg (25-34); Mean Corpuscular Volume 90.4 fL (80-100); Monocytes # (auto) 0.74 K/uL (0.11-0.59); Monocytes % (auto) 5.5 %; Neutrophils # (auto) 11.04 K/uL (1.4-6.5); Neutrophils % (auto) 82.2 %; Platelet Count 352 K/uL (130-400); RDW Coefficient of Variation 13.7 % (11.5-14.5); Red Blood Count 4.88 M/uL (4.2-5.4); White Blood Count 13.45 K/uL (4.8-10.8)
[2020-10-29 20:32] LABS: BUN Creatinine Ratio 14.6 (10-20); Calcium 8.8 mg/dl (8.5-10.1); Creatinine Clr Calc Pharmacy 70.6 ml/min; Est GFR (African American) 77.7; Potassium 3.3 mmol/L (3.5-5.1)
[2020-10-29] MEDS ORDERED: METOPROLOL SUCC 50MG EXT REL TAB PO SCH (21:00)
[2020-10-29] MEDS ORDERED: CARBOHYDRATES FOR HYPOGLYCEMIA PO PRN (21:20)
[2020-10-29] MEDS ORDERED: GLUCAGON FOR INJ 1 MG VIAL SQ PRN (21:20)
[2020-10-29] MEDS ORDERED: GLUCOSE 40% GEL 15 GM TUBE PO PRN (21:20)
[2020-10-29] MEDS ORDERED: DEXTROSE 50% 50 ML SYRINGE IV PRN (21:20)
[2020-10-29] MEDS ORDERED: GLUCOSE 10 TABS/TUBE PO PRN (21:20)
[2020-10-29] MEDS ORDERED: PIPERACILL/TAZOBAC CONSULT ACTIVE PRN (21:23)
[2020-10-29] MEDS ORDERED: POTASSIUM CHLORIDE CRTAB 20 MEQ TABCR PO STA (21:37)
[2020-10-29] MEDS ORDERED: FAMOTIDINE 20 MG TAB PO ONE (21:38)
[2020-10-29] MEDS ORDERED: PHENYLEPHRINE HCL 20 MG in DEXTROSE 5% 500 ML IV SCH (21:45)
[2020-10-29] MEDS: SODIUM CHLORIDE 0.9% 1000ML 1,000 ML IV SCH (21:47)
[2020-10-29] MEDS: POTASSIUM CHLORIDE / WTR 10 MEQ/100 ML PLCT IV SCH (21:56)
[2020-10-29] MEDS ORDERED: PIPERACILLIN/TAZOBACTAM 3.375 GM in DEXTROSE 5% 100 ML IV ONE (22:00)
[2020-10-29] MEDS ORDERED: ALBUT/IPRATROP 3MG/0.5MG NEB 3 ML VIAL NEB PRN (23:40)
[2020-10-30] MEDS: POTASSIUM CHLORIDE / WTR 10 MEQ/100 ML PLCT IV SCH ×5 (00:16→11:44)
[2020-10-30] MEDS ORDERED: PIPERACILLIN/TAZOBACTAM 3.375 GM in DEXTROSE 5% 100 ML IV SCH (02:00)
[2020-10-30] MEDS ORDERED: levETIRAcetam 1,000 MG in 0.9 % SODIUM CHLORIDE 100 ML IV SCH (04:00)
[2020-10-30] MEDS ORDERED: ALBUMIN 5% 250 ML IV ONE (04:17)
[2020-10-30 04:20] LABS: Basophils # (auto) 0.02 K/uL (0-0.2); Basophils % (auto) 0.2 %; Eosinophils # (auto) 0.02 K/uL (0-0.5); Eosinophils % (auto) 0.2 %; Hematocrit (blood only) 37.8 % (37-47); Hemoglobin 12.8 g/dL (12.0-16.0); Immature Granulocytes # (auto) 0.03 K/uL (0.00-0.02); Immature Granulocytes % (auto) 0.2 %; Lymphocytes # (auto) 2.78 K/uL (1.2-3.4); Mean Corpuscular Hgb Conc 33.9 g/dL (32-36); Mean Corpuscular Volume 91.5 fL (80-100); Mean Platelet Volume 9.7 fL (7.4-10.4); Monocytes # (auto) 0.97 K/uL (0.11-0.59); Neutrophils # (auto) 8.25 K/uL (1.4-6.5); Neutrophils % (auto) 68.4 %; Platelet Count 319 K/uL (130-400); RDW Coefficient of Variation 13.8 % (11.5-14.5); RDW Standard Deviation 46.4 fL (36.4-46.3); Red Blood Count 4.13 M/uL (4.2-5.4); White Blood Count 12.07 K/uL (4.8-10.8)
[2020-10-30 04:42] LABS: BUN Creatinine Ratio 18.3 (10-20); Calcium 8.1 mg/dl (8.5-10.1); Creatinine Clr Calc Pharmacy 72.9 ml/min; Est GFR (African American) 80.8; Est GFR (Non-African American) 69.7
[2020-10-30 04:50] LABS: Potassium 3.5 mmol/L (3.5-5.1)
[2020-10-30] MEDS: CHOLECALCIFEROL 1,000 UNITS 25 MCG TAB PO SCH (07:46)
[2020-10-30] MEDS: CLOPIDOGREL BISULFATE 75 MG TAB PO SCH (07:46)
[2020-10-30] MEDS: VENLAFAXINE HCL XR 75 MG CAPXR PO SCH (07:46)
[2020-10-30] MEDS: ENOXAPARIN INJ 40 MG/0.4 ML SYR SQ SCH ×2 (07:46→08:35)
--- NOTE | 2020-10-30 08:31 | Critical Care Progress Note ---
Date of Service October 30, 2020 Assessment & Plan (1) PRES (posterior reversible encephalopathy syndrome): Blood pressure is much improved. She is off nicardipine. We will restart her home dose oral antihypertensive medications. We will consult neurology given the concern of possible seizure. Counseled on avoiding all illicit drugs including marijuana. Continue Plavix for history of coronary artery disease. Continue high-dose statin. Continue Keppra pending neurology recommendations. No obvious infectious etiology. Zosyn discontinued. Stable transfer to the floor with telemetry. (2) Hypertensive emergency: (3) Cyclic vomiting syndrome: (4) Pulmonary emphysema: Admission and Anticipated Discharge Date Admission Date: October 29, 2020 Subjective Patient seen and examined this morning. She denies any nausea or vomiting today. She did have significant nausea and a severe headache yesterday which responded to Tylenol. She notes that she smokes marijuana weekly. She denies any chest pain, fevers or chills at this time. She appears generally comfortable. Review of Systems Review of Systems: All systems reviewed & are unremarkable except as noted in HPI & below Physical Exam Constitutional: cooperative and comfortable Eyes: PERRL, conjunctivae normal, anicteric sclerae ENMT: external ear and nose normal, oropharynx normal Neck: trachea midline, no thyromegaly Respiratory: Mild expiratory wheezes noted in the upper lobes. No use of accessory muscles. Appears comfortable on room air. Cardiovascular: RRR, no murmur, no edema Heart Sounds: normal S1 and normal S2 Vessels: no JVD Extremities: normal capillary refill; no edema Gastrointestinal (Abdomen): normal bowel sounds, soft, nontender, no hepatosplenomegaly Skin: no rashes, warm and dry Neurologic: PERRL, EOMI, accommodation nl, no face palsy, no dysarthria Psychiatric: A+Ox3, euthymic affect Results & Data Results & Data ([facility]) Vital Signs (Past 12 Hours) Vital Signs Temp Pulse Resp BP Pulse Ox 10/30/20 06:00 84 18 97 10/30/20 05:53 87 22 116/76 96 10/30/20 05:30 87 20 96 10/30/20 05:23 84 21 105/78 97 10/30/20 05:00 83 17 97 10/30/20 04:52 99.0 F 81 20 96/69 L 97 10/30/20 04:33 78 19 96/66 L 95 10/30/20 04:11 79 19 98/64 L 94 10/30/20 04:07 82 23 98/65 L 94 10/30/20 03:52 83 20 86/53 L 95 10/30/20 03:00 84 19 94 10/30/20 02:52 84 19 94/66 L 94 10/30/20 02:37 81 19 93/64 L 94 10/30/20 02:30 83 20 95 10/30/20 02:00 85 19 95 10/30/20 01:29 82 16 98/57 L 96 10/30/20 00:55 88 18 106/65 96 10/30/20 00:30 92 H 19 95 10/30/20 00:25 93 H 18 102/62 94 10/30/20 00:00 99 H 23 94 10/29/20 23:56 98 H 25 H 136/85 94 10/29/20 23:30 102 H 19 95 10/29/20 23:25 98 H 22 159/97 H 95 10/29/20 23:23 94 H 10/29/20 23:00 91 H 21 96 10/29/20 22:55 91 H 15 121/78 98 10/29/20 22:30 92 H 20 94 10/29/20 22:25 98 H 25 H 107/72 94 10/29/20 22:00 95 H 17 97 10/29/20 21:55 105 H 26 H 136/101 H 95 10/29/20 21:39 103 H 25 H 166/97 H 94 10/29/20 21:34 115 H 17 140/93 10/29/20 21:30 101 H 21 93 10/29/20 21:25 100 H 21 95/63 L 94 10/29/20 21:19 99.9 F H 102 H 25 H 101/62 94 10/29/20 21:00 106 H 22 94 10/29/20 20:55 105 H 20 102/63 94 10/29/20 20:30 110 H 24 94 I reviewed the relevant labs, imaging, notes, vital signs. Coding Level of Care Code 31927 Subseq Hosp Care Lvl 3 Diagnoses PRES (posterior reversible encephalopathy syndrome) I67.83 Hypertensive emergency I16.1 Cyclic vomiting syndrome R11.15 Pulmonary emphysema J43.9
[2020-10-30] MEDS: INSULIN ASPART 100 UNITS/ML 3 ML PEN SC SCH ×4 (08:44→20:55)
[2020-10-30] MEDS: SODIUM CHLORIDE 0.9% 1000ML 1,000 ML IV SCH (08:44)
[2020-10-30] MEDS ORDERED: cloNIDine HCL 0.1 MG/24 HR TRANSDERM SYS TD SCH (09:00)
[2020-10-30] MEDS ORDERED: LOSARTAN POTASSIUM 50 MG TAB PO SCH (09:00)
[2020-10-30] MEDS ORDERED: amLODIPine BESYLATE 5 MG TAB PO SCH (09:00)
[2020-10-30] MEDS: LOSARTAN POTASSIUM 50 MG TAB PO SCH (09:43)
[2020-10-30] MEDS: amLODIPine BESYLATE 5 MG TAB PO SCH (09:44)
[2020-10-30] MEDS: METOPROLOL SUCC 50MG EXT REL TAB PO SCH ×2 (09:44→21:05)
--- NOTE | 2020-10-30 11:00 | Neurology Consultation ---
Date of Consultation October 30, 2020 Assessment & Plan (1) Seizure: (2) PRES (posterior reversible encephalopathy syndrome): Recurrence of seizure-like episodes occurring in the context of recurrent hypertensive urgency, and recurrent posterior reversible encephalopathy syndrome. I have ordered an up-to-date EEG. Continue with Keppra 1000 mg p.o. twice daily Continue medical management of hypertension. History of Present Illness Reason for Consultation: seizure, PRES Requesting Physician: Zafar Lara MD Attending Physician: Franck Hager History of Present Illness The patient is a 55-year-old female with a history of PRES, hypertension, seizures, cyclic vomiting syndrome, and cannabinoid hyperemesis syndrome evaluated by Dr. Forrester in July 2019 for this issue. Resolution of PRES on follow-up MRI and unremarkable EEG at that time, was tapered off Keppra. Patient presented to the emergency department yesterday with vomiting and seizure-like activity. Patient recalls a feeling of generalized shaking throughout her body. Event witnessed by EMS, had second event in the emergency department. Patient was notably hypertensive, blood pressure controlled with labetalol. Repeat brain MRI did suggest recurrence of PRES. was loaded with 1.5 g of Keppra and admitted to the hospital for further evaluation and management. Currently, patient denies any headache, vision disturbance, weakness or incoordination. Allergies Allergy/AdvReac Type Severity Reaction Status Date / Time napoles Allergy Intermediate Hives Verified 10/29/20 11:29 doxycycline Allergy Intermediate hives and Verified 10/29/20 11:29 vomitting Iodinated Contrast Media Allergy Intermediate GIANT Verified 10/29/20 11:29 HIVES , VOMITTING, BODY FEELS HOT loperamide Allergy Intermediate Hives and Verified 10/29/20 11:29 vomiting meperidine Allergy Intermediate HIVES, Verified 10/29/20 11:29 VOMITING prochlorperazine Allergy Intermediate N/V, Verified 10/29/20 11:29 ITCHINESS strawberry Allergy Intermediate HIVES Verified 10/29/20 11:29 tomato Allergy Intermediate HIVES Verified 10/29/20 11:29 iodine Allergy . Verified 10/29/20 11:29 latex AdvReac Mild RASH Verified 10/29/20 11:29 Home Medications Medication Instructions Recorded Confirmed Type multivitamin 1 tab PO QAM 12/16/18 10/29/20 History promethazine 25 mg PO Q6H PRN 07/17/19 10/29/20 History atorvastatin 80 mg tablet 80 mg PO HS #90 tab 04/04/20 10/29/20 Rx capsaicin 1 applic TOPICAL QID #25 g 04/09/20 10/29/20 Rx clonidine HCl 0.1 mg PO Q6 PRN #10 tab 04/14/20 10/29/20 Rx losartan 100 mg tablet 100 mg PO QAM #90 tab 06/13/20 10/29/20 Rx ondansetron 4 mg disintegrating 4 mg PO Q6H PRN #30 tab 08/01/20 10/29/20 Rx tablet amitriptyline 25 mg tablet 25 mg PO HS #90 tab 08/08/20 10/29/20 Rx amlodipine 5 mg tablet 5 mg PO DAILY #90 tab 08/08/20 10/29/20 Rx cholecalciferol (vitamin D3) 50 50 mcg PO DAILY #30 tab 08/29/20 10/29/20 Rx mcg (2,000 unit) tablet metoprolol succinate 100 mg 100 mg PO BID #90 tab 10/09/20 10/29/20 Rx tablet,extended release 24 hr clopidogrel 75 mg tablet 75 mg PO QAM #90 tab 10/16/20 10/29/20 Rx venlafaxine 75 mg capsule,extended 75 mg PO DAILY #30 cap 10/16/20 10/29/20 Rx release 24 hr clonidine 0.1 mg/24 hr weekly See Rx Instructions .ROUTE 10/27/20 10/29/20 Rx transdermal patch .COMPLEX #4 ea Patient History Medical History Abnormal MRI of head Acute UTI Anxiety disorder CAD (coronary artery disease) Mild-moderate non-obstructive Carotid stenosis < 50% stenosis B/L per US 12/16/18 Cervical disc disorder Congestive heart failure, acute 06/2017, admitted [facility]. Ruled 2/2 Takasubo CM. Cyclic vomiting syndrome Diverticulitis Diverticulosis Gastritis Grief reaction Hematemesis Hematuria History of diverticulitis of colon History of gastritis History of hypotension Hot flashes due to menopause HTN (hypertension) Hx-TIA (transient ischemic attack) Hypercalcemia Hyperlipidemia Hypertension Hypertensive urgency Hypokalemia Marijuana dependence Multiple thyroid nodules New onset seizure 07/17/2019 NSTEMI (non-ST elevated myocardial infarction) 2016 [facility]. Cath performed showed mild to moderate non-obstructive CAD. PRES (posterior reversible encephalopathy syndrome) Pulmonary emphysema Takotsubo cardiomyopathy 2017. Admitted [facility], full cardiac workup including cath. EF at the time 40%, now resolved to 60-65% on echo 2019. Transient cerebrovascular ischemia Vitamin D deficiency Surgical History H/O cervical spine surgery ACDF C4-7 Dr. [place] History of cardiac cath 5-6 YR AGO - IN - NO STENTS (per pt report, this cath not noted in cardiology notes) 2017, NSTEMI. NO INTERVENTION. History of hernia surgery History of hysterectomy History of ovarian cystectomy S/P cervical discectomy Family History Father Family history of stomach cancer Stroke Myocardial infarction Malignant neoplasm of esophagus Stomach cancer Uncle Family history of cancer FAMILY HISTORY OF CANCER - UNCLE - VOCAL CORDS FAMILY HISTORY OF CANCER - AUNT - ? KIND Throat cancer Grandmother (Maternal) Breast cancer Bone cancer Mother No problems noted. Other No pertinent family history Denies family history of Colon cancer Ovarian cancer Prostate cancer Crohn's disease IBD (inflammatory bowel disease) Social History Smoking Status: Current some day smoker packs per day: 2; Years Smoked: 25; Second Hand Exposure: Yes; Do You Dip or Chew Tobacco: No; Tobacco Cessation Education Requested by Patient: No Hx Alcohol Use: Yes Alcohol type: beer Hx Substance Use: Yes Last Used Substance: Days (ago) Last Used Substance Other:: 10/28/20 Substance Use Type Other:: when zofran does not work Preferred Language: Icelandic Communication Ability: Effective Visual Impairment: Limited Hearing Ability: Normal Signs Sales Representative Required: No Beliefs That Will Affect Care: None marital status: Current Living Situation: Spouse current occupational status: employed 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 [employer] Other Information That Helps Us Care for You: Yes Feels Safe at Home: Yes Childhood Exposure to Second-Hand Smoke: Yes caffeine: Yes (1 cup of coffee) during the past year weight has: other Dental Care, Regularly: No Physical Activity Frequency: Daily Physical Activity Frequency Comment: walking Seatbelt Use: always Sunscreen Use: Yes Assistive Devices: None Review of Systems Constitutional: no fever and no chills Eyes: no blind spots and no diplopia Ear, Nose, Mouth, Throat: no hearing loss Respiratory: no cough and no dyspnea Cardiovascular: no chest pain and no palpitations Gastrointestinal: + nausea and + vomiting Genitourinary: no urinary incontinence Musculoskeletal: no back pain, no neck pain and no myalgia Integumentary: no rash and no lesions Neurologic: as per Subjective / HPI and + seizure-like activity; no localized weakness, no loss of sensation, no lack of coordination, no tremor(s), no abnormal movements, no headache(s), no confusion and no memory loss Psychiatric: no depression and no anxiety Hematologic / Lymphatic: no easy bleeding and no easy bruising Exam (Neuro) Constitutional: well developed and well nourished; no acute distress Eyes: normal visual pradhan by confrontation, PERRL, normal accommodation and EOM intact bilaterally; no fundoscopic abnormality, no nystagmus and no papilledema Cardiovascular: Vessels: normal carotid upstroke; no carotid bruit Neurologic: Oriented to:: Person, Place and Time Memory: Short Term Intact and Remote Intact Attention: Span Intact and Concentration Intact Language: Naming Objects and Repeating Phrases Speech Fluency: negative Dysarthria Speech Aphasia: negative Aphasia Fund of Knowledge: Current Events, Past History and Vocabulary Cranial Nerves: Normal II (Visual pradhan full to confrontation, visual acuity normal), III, IV, (Pupils equal round reactive to light and accommodation, eye movements normal), V (Facial sensation intact), VII (There is no facial droop or weakness), VIII (Hearing intact), IX, X (Palate elevates to midline), XI (Shoulder shrug intact) and XII (Tongue protrudes to midline) Motor Strength: Normal Lower Extremities and Normal Upper Extremities; negative Pronator Drift Motor Tone: Normal Lower Extremities and Normal Upper Extremities Muscle Bulk/Involuntary Movements: No Involuntary Movements; negative Muscle Atrophy Sensation: Light Touch Intact, Pain/Temperature Intact, Vibration Intact and Proprioception Intact Coordination: Normal; negative Limited Balance, Dysdiadochokinesia, Finger-Nose Abnormal and Heel-Adler Abnormal Deep Tendon Reflexes: Rt Triceps: 2+, Lt Triceps: 2+, Rt Biceps: 2+, Lt Biceps: 2+, Rt Brachioradialis: 2+, Lt Brachioradialis: 2+, Rt Patellar: 2+, Lt Patellar: 2+, Rt Ankle: 2+ and Lt Ankle: 2+ Special Tests: negative Babinski Present Details: Gait not tested in the context of patient's current medical/neurological condition. Results & Data ([facility]) Vital Signs (Past 12 Hours) Vital Signs Temp Pulse Resp BP Pulse Ox 10/30/20 06:00 84 18 97 10/30/20 05:53 87 22 116/76 96 10/30/20 05:30 87 20 96 10/30/20 05:23 84 21 105/78 97 10/30/20 05:00 83 17 97 10/30/20 04:52 37.2 C 81 20 96/69 L 97 10/30/20 04:33 78 19 96/66 L 95 10/30/20 04:11 79 19 98/64 L 94 10/30/20 04:07 82 23 98/65 L 94 10/30/20 03:52 83 20 86/53 L 95 10/30/20 03:00 84 19 94 10/30/20 02:52 84 19 94/66 L 94 10/30/20 02:37 81 19 93/64 L 94 10/30/20 02:30 83 20 95 10/30/20 02:00 85 19 95 10/30/20 01:29 82 16 98/57 L 96 10/30/20 00:55 88 18 106/65 96 10/30/20 00:30 92 H 19 95 10/30/20 00:25 93 H 18 102/62 94 10/30/20 00:00 99 H 23 94 10/29/20 23:56 98 H 25 H 136/85 94 10/29/20 23:30 102 H 19 95 10/29/20 23:25 98 H 22 159/97 H 95 10/29/20 23:23 94 H 10/29/20 23:00 91 H 21 96 10/29/20 22:55 91 H 15 121/78 98 Laboratory Results WBC 12.07, hemoglobin 12.8, hematocrit 37.8, platelet count 319, sodium 139, potassium 3.5, BUN 17, creatinine 0.93, glucose 116, magnesium 2.0, prolactin 2.29, urine drug screen positive for marijuana Diagnostic Findings Noncontrast brain MRI reveals increased T2/flair cortical-based signal within the posterior parietal lobe near the vertex, suggestive of posterior reversible encephalopathy syndrome. There is a moderate degree of T2/flair hyperintensities within the cerebral white matter probably consistent with advanced chronic small vessel ischemic disease. These findings were observed by the interpreting radiologist. I reviewed the images as well and agree. An EEG completed August 31, 2019 revealed a normal alpha rhythm, no epileptiform abnormalities. PG Care Time/CCT Total # of Minutes Spent Total Time Spent with Patient: Total time spent is greater than 50% in coordination of care (as documented) at patient's floor/unit and/or counseling patient: Coding Level of Care Code 86805 Initial Inpt Care Lvl 3 Diagnoses Seizure R56.9 PRES (posterior reversible encephalopathy syndrome) I67.83
--- NOTE | 2020-10-30 11:26 | XCELERA ---
[id number]
--- NOTE | 2020-10-30 14:42 | Electroencephalogram ---
EEG Procedure Note Date of Service October 30, 2020 Start / End Times Start Time: 10:42 AM End Time: 11:02 AM Referring Physician Franck Hager History Seizures, hypertensive urgency, PRES Home Medication List Medication Instructions Recorded Confirmed Type multivitamin 1 tab PO QAM 12/16/18 10/29/20 History promethazine 25 mg PO Q6H PRN 07/17/19 10/29/20 History atorvastatin 80 mg tablet 80 mg PO HS #90 tab 04/04/20 10/29/20 Rx capsaicin 1 applic TOPICAL QID #25 g 04/09/20 10/29/20 Rx clonidine HCl 0.1 mg PO Q6 PRN #10 tab 04/14/20 10/29/20 Rx losartan 100 mg tablet 100 mg PO QAM #90 tab 06/13/20 10/29/20 Rx ondansetron 4 mg disintegrating 4 mg PO Q6H PRN #30 tab 08/01/20 10/29/20 Rx tablet amitriptyline 25 mg tablet 25 mg PO HS #90 tab 08/08/20 10/29/20 Rx amlodipine 5 mg tablet 5 mg PO DAILY #90 tab 08/08/20 10/29/20 Rx cholecalciferol (vitamin D3) 50 50 mcg PO DAILY #30 tab 08/29/20 10/29/20 Rx mcg (2,000 unit) tablet metoprolol succinate 100 mg 100 mg PO BID #90 tab 10/09/20 10/29/20 Rx tablet,extended release 24 hr clopidogrel 75 mg tablet 75 mg PO QAM #90 tab 10/16/20 10/29/20 Rx venlafaxine 75 mg capsule,extended 75 mg PO DAILY #30 cap 10/16/20 10/29/20 Rx release 24 hr clonidine 0.1 mg/24 hr weekly See Rx Instructions .ROUTE 10/27/20 10/29/20 Rx transdermal patch .COMPLEX #4 ea Inpatient Medication List Amitriptyline HCl (Amitriptyline Hcl 25 Mg Tab) 25 mg PO HS MIKE Stop: 11/28/20 20:59 Last Admin: 10/29/20 19:50 Dose: 25 mg Documented by: [id number] Amlodipine Besylate (Amlodipine Besylate 5 Mg Tab) 5 mg PO QAM MIKE Stop: 11/29/20 08:59 Last Admin: 10/30/20 09:44 Dose: 5 mg Documented by: [id number] Atorvastatin Calcium (Atorvastatin 40 Mg Tab) 80 mg PO HS [facility] Stop: 11/28/20 20:59 Last Admin: 10/29/20 19:50 Dose: 80 mg Documented by: [id number] Clonidine HCl (Clonidine Hcl 0.1 Mg/24 Hr Transderm Sys) 1 patch TD Q7D [facility] Stop: 11/29/20 08:59 Last Admin: 10/30/20 09:43 Dose: 1 patch Documented by: [id number] Clopidogrel Bisulfate (Clopidogrel Bisulfate 75 Mg Tab) 75 mg PO QAM [facility] Stop: 11/29/20 08:59 Last Admin: 10/30/20 07:46 Dose: 75 mg Documented by: [id number] Enoxaparin Sodium (Enoxaparin Inj 40 Mg/0.4 Ml Syr) [facility] Stop: 11/29/20 08:59 Last Admin: 10/30/20 08:35 Dose: Not Given Documented by: [id number] Insulin Aspart (Insulin Aspart 100 Units/Ml 3 Ml Pen) 0 units SC ACHS [facility] Stop: 11/29/20 07:29 Last Admin: 10/30/20 11:45 Dose: Not Given Documented by: [id number] Cosigned by: [id number] Admin: 10/30/20 08:44 Dose: Not Given Documented by: [id number] Cosigned by: [id number] Losartan Potassium (Losartan Potassium 50 Mg Tab) 100 mg PO QAM [facility] Stop: 11/29/20 08:59 Last Admin: 10/30/20 09:43 Dose: 100 mg Documented by: [id number] Metoprolol Succinate (Metoprolol Succ 50mg Ext Rel Tab) 100 mg PO BID [facility] Stop: 11/29/20 08:59 Last Admin: 10/30/20 09:44 Dose: 100 mg Documented by: [id number] Miscellaneous (Remove Clonidine Patch) 1 ea N/A CQWK [facility] Stop: 11/29/20 08:59 Last Admin: 10/30/20 09:44 Dose: Not Given Documented by: [id number] Venlafaxine HCl (Venlafaxine Hcl Xr 75 Mg Capxr) 75 mg PO DAILY [facility] Stop: 11/29/20 08:59 Last Admin: 10/30/20 07:46 Dose: 75 mg Documented by: [id number] Vitamin D (Cholecalciferol 1,000 Units 25 Mcg Tab) 2,000 units PO DAILY MIKE Stop: 11/29/20 08:59 Last Admin: 10/30/20 07:46 Dose: 2,000 units Documented by: [id number] Discontinued Medications Acetaminophen (Acetaminophen 500 Mg Tab) 1,000 mg PO NOW STA Stop: 10/29/20 11:22 Last Admin: 10/29/20 11:40 Dose: 1,000 mg Documented by: [id number] Clonidine HCl (Clonidine Hcl 0.1 Mg Tab) 0.1 mg PO NOW ONE Stop: 10/29/20 19:01 Last Admin: 10/29/20 19:30 Dose: 0.1 mg Documented by: [id number] Al Hydrox/Mg Hydrox/Simethicone 18 ml/ Lidocaine HCl 6 ml/ BARCODE IDENTIFIER 1 ea 0 ml PO ONE ONE Stop: 10/29/20 18:59 Last Admin: 10/29/20 19:10 Dose: 24 ml Documented by: [id number] Famotidine (Famotidine 20 Mg Tab) 20 mg PO ONCE ONE Stop: 10/29/20 21:39 Last Admin: 10/29/20 21:48 Dose: 20 mg Documented by: [id number] Sodium Chloride (Nss) 500 mls @ 999 mls/hr IV .Q31M MIKE Stop: 10/29/20 12:00 Last Infusion: 10/29/20 15:11 Dose: 0 mls/hr Documented by: [id number] Admin: 10/29/20 11:40 Dose: 999 mls/hr Documented by: [id number] Lorazepam (Ativan) 1 mg in 2 mls @ 2 mls/min IV NOW STA Stop: 10/29/20 12:50 Last Admin: 10/29/20 12:57 Dose: 2 mls/min Documented by: [id number] Promethazine HCl (Phenergan) 6.25 mg in 50.25 mls @ 201 mls/hr IV NOW STA Stop: 10/29/20 13:03 Last Infusion: 10/29/20 13:15 Dose: 0 mls/hr Documented by: [id number] Admin: 10/29/20 12:59 Dose: 201 mls/hr Documented by: [id number] Sodium Chloride (Nss 1000ml) 1,000 mls @ 999 mls/hr IV .Q1H1M ONE Stop: 10/29/20 14:17 Last Infusion: 10/29/20 16:42 Dose: 0 mls/hr Documented by: [id number] Admin: 10/29/20 15:24 Dose: 999 mls/hr Documented by: [id number] Levetiracetam 1,500 mg/ Sodium (Chloride) 115 mls @ 440 mls/hr IV NOW STA Stop: 10/29/20 15:47 Last Infusion: 10/29/20 16:31 Dose: 0 mls/hr Documented by: [id number] Admin: 10/29/20 16:05 Dose: 440 mls/hr Documented by: [id number] Levetiracetam 1,000 mg/ Sodium (Chloride) 110 mls @ 440 mls/hr IV Q12H MIKE Stop: 11/29/20 03:59 Last Infusion: 10/30/20 04:54 Dose: 0 mls/hr Documented by: [id number] Admin: 10/30/20 04:39 Dose: 440 mls/hr Documented by: [id number] Nicardipine HCl 25 mg/ Sodium (Chloride) 250 mls @ 0 mls/hr IV .Q0M MIKE; Protocol Stop: 11/28/20 18:29 Last Admin: 10/29/20 22:34 Dose: Not Given Documented by: [id number] Titration: 10/29/20 20:02 Dose: 0 mg/hr, 0 mls/hr Documented by: [id number] Titration: 10/29/20 20:01 Dose: 0 mg/hr, 0 mls/hr Documented by: [id number] Titration: 10/29/20 19:20 Dose: 5 mg/hr, 50 mls/hr Documented by: [id number] Cosigned by: [id number] Titration: 10/29/20 18:57 Dose: 7.5 mg/hr, 75 mls/hr Documented by: [id number] Admin: 10/29/20 18:37 Dose: 5 mg/hr, 50 mls/hr Documented by: [id number] Cosigned by: [id number] Sodium Chloride (Nss 1000ml) 1,000 mls @ 100 mls/hr IV .Q10H MIKE Stop: 11/28/20 21:29 Last Infusion: 10/30/20 10:11 Dose: 0 mls/hr Documented by: [id number] Admin: 10/30/20 08:44 Dose: 100 mls/hr Documented by: [id number] Infusion: 10/30/20 08:02 Dose: 100 mls/hr Documented by: [id number] Infusion: 10/30/20 04:54 Dose: 100 mls/hr Documented by: [id number] Infusion: 10/30/20 04:40 Dose: 0 mls/hr Documented by: [id number] Admin: 10/29/20 21:47 Dose: 100 mls/hr Documented by: [id number] Piperacillin Sod/Tazobactam (Sod 3.375 gm/ Dextrose) 115 mls @ 230 mls/hr IV ONE ONE; Protocol Stop: 10/29/20 22:29 Last Infusion: 10/29/20 22:18 Dose: 0 mls/hr Documented by: [id number] Admin: 10/29/20 21:48 Dose: 230 mls/hr Documented by: [id number] Piperacillin Sod/Tazobactam (Sod 3.375 gm/ Dextrose) 115 mls @ 28.75 mls/hr IV Q8H [facility]; Protocol Stop: 11/01/20 01:59 Last Infusion: 10/30/20 06:23 Dose: 0 mls/hr Documented by: [id number] Admin: 10/30/20 02:23 Dose: 28.8 mls/hr Documented by: [id number] Potassium Chloride (K Herber / Wtr) 10 meq in 100 mls @ 100 mls/hr IV Q1H MIKE Stop: 10/29/20 23:36 Last Infusion: 10/30/20 02:16 Dose: 0 mls/hr Documented by: [id number] Admin: 10/30/20 00:16 Dose: 50 mls/hr Documented by: [id number] Infusion: 10/29/20 23:52 Dose: 50 mls/hr Documented by: [id number] Infusion: 10/29/20 22:00 Dose: 50 mls/hr Documented by: [id number] Admin: 10/29/20 21:56 Dose: 100 mls/hr Documented by: [id number] Albumin Human (Albumin 5%) 250 mls @ 500 mls/hr IV ONE ONE Stop: 10/30/20 04:46 Last Infusion: 10/30/20 05:09 Dose: 0 mls/hr Documented by: [id number] Admin: 10/30/20 04:39 Dose: 500 mls/hr Documented by: [id number] Potassium Chloride (K Herber / Wtr) 10 meq in 100 mls @ 100 mls/hr IV Q1H MIKE Stop: 10/30/20 09:17 Last Infusion: 10/30/20 14:01 Dose: 0 mls/hr Documented by: [id number] Admin: 10/30/20 11:44 Dose: 50 mls/hr Documented by: [id number] Infusion: 10/30/20 11:43 Dose: 50 mls/hr Documented by: [id number] Admin: 10/30/20 09:43 Dose: 50 mls/hr Documented by: [id number] Infusion: 10/30/20 09:43 Dose: 50 mls/hr Documented by: [id number] Admin: 10/30/20 07:46 Dose: 50 mls/hr Documented by: [id number] Infusion: 10/30/20 07:37 Dose: 50 mls/hr Documented by: [id number] Infusion: 10/30/20 05:40 Dose: 50 mls/hr Documented by: [id number] Admin: 10/30/20 05:38 Dose: 100 mls/hr Documented by: [id number] Labetalol HCl (Labetalol Hcl Iv 5 Mg/Ml 20ml) 10 mg IV NOW STA Stop: 10/29/20 15:18 Last Admin: 10/29/20 15:22 Dose: 10 mg Documented by: [id number] Cosigned by: [id number] Labetalol HCl (Labetalol Hcl Iv 5 Mg/Ml 20ml) 10 mg IV NOW STA Stop: 10/29/20 15:45 Last Admin: 10/29/20 16:05 Dose: 10 mg Documented by: [id number] Cosigned by: [id number] Labetalol HCl (Labetalol Hcl Iv 5 Mg/Ml 20ml) 10 mg IV NOW STA Stop: 10/29/20 17:58 Last Admin: 10/29/20 18:02 Dose: 10 mg Documented by: [id number] Cosigned by: [id number] Metoprolol Succinate (Metoprolol Succ 50mg Ext Rel Tab) 100 mg PO BID MIKE Stop: 11/28/20 20:59 Last Admin: 10/29/20 19:50 Dose: 100 mg Documented by: [id number] Ondansetron HCl (Ondansetron Inj 2 Mg/Ml 2 Ml Vial) 4 mg IV NOW STA Stop: 10/29/20 11:21 Last Admin: 10/29/20 11:40 Dose: 4 mg Documented by: [id number] Potassium Chloride (Potassium Chloride Crtab 20 Meq Tabcr) 40 meq PO NOW STA Stop: 10/29/20 21:38 Last Admin: 10/30/20 02:01 Dose: Not Given Documented by: [id number] Description This is a 21 electrode EEG with a single channel dedicated to limited EKG. The electrodes were placed in accordance with the International 10-20 system. There is a posterior dominant rhythm of 10 Hz which is symmetrically distributed and attenuates with eye opening. There is a normal anterior to posterior organization. Photic stimulation is unremarkable. Hyperventilation is not performed. There is a symmetric frontal beta rhythm. There is no lateralized or focal slowing. No epileptiform abnormalities. There are some attenuation of the background rhythm with the emergence of generalized polymorphic theta acti vity seen in the latter part of the study. A few vertex waves are observed as well. Interpretation Normal-appearing awake/sleepy EEG. A normal EEG does not completely exclude a diagnosis of epilepsy. Further clinical correlation may be needed. [facility] EEG Procedure Codes Indication for Procedure (1) Seizure: Neurology Neurology: [id number] EEG include record awake & sleepy
[2020-10-30] MEDS: CHECK CLONIDINE PATCH PLACEMENT SCH (16:23)
[2020-10-30] MEDS: levETIRAcetam 500 MG TAB PO SCH (21:03)
[2020-10-30] MEDS: AMITRIPTYLINE HCL 25 MG TAB PO SCH (21:04)
[2020-10-30] MEDS: ATORVASTATIN 40 MG TAB PO SCH (21:04)
--- NOTE | 2020-10-30 21:32 | Hospitalist Progress Note ---
Date of Service October 30, 2020 Assessment & Plan (1) Hypertensive emergency: Resolved. etiology? patient with marked BP elevation at presentation despite compliance with complex regimen of BP meds. did profuse vomiting lead to the BP spike? either way HTN is controlled and nicardipine is off. continue home BP meds. (2) HTN (hypertension): patient is back on all home meds including amlodipine 5mg daily, clonidine patch, losartan 100mg daily, and metoprolol xl 100mg BID. previous aldosterone level in 03/2020 was wnl. TSH this admission 3.9. will check renal artery dopplers to exclude CATRACHITA (although MRA abdomen in 2017 was negative for such). numerous ER visits and/or hospital admits for HTN, PRES, HTN emergency over the last few years. uncertain if she has ever had sleep study to exclude REBECCA. if she has REBECCA this can contribute to [id number] / labile HTN. (3) PRES (posterior reversible encephalopathy syndrome): as confirmed on MRI; in the setting of HTN emergency. neuro exam wnl. mental status wnl. resolved. control the BP. (4) Seizure: history of seizures in the past. follows with [facility] Neuro. given the recurrency of seizures - reloaded with IV keppra at time of this admission. now on keppra 1000mg BID. Dr Melendrez agrees she should remain on such for now. (5) CAD (coronary artery disease): No evidence of ACS. Continue ARB, BB, and Plavix. 2017 cath - mild/moderate non-obstructive CAD with 40% lesion of RCA as worst vessel. Ideally should be on statin. Echo with preserved EF and normal wall motion this admission. (6) Nausea & vomiting: Uncertain if 2nd to cyclic vomiting syndrome vs THC hyperemesis syndrome vs due to HTN emergency itself. Either way - resolved. No evidence of acute hepatitis, pancreatitis, infectious cause, etc. (7) Cyclic vomiting syndrome: Per the EMR - history of such. (8) Hyperlipidemia: Not on statin. LDL 80-100 chronically. But given her known CAD ideally she take statin. Will d/w patient. (9) Marijuana dependence: (10) DVT prophylaxis: lovenox daily move from ICU to PCU patient had low-grade temp of 38.1 yesterday - but procal negative, cxr neg, u/a neg follow for now Admission and Anticipated Discharge Date Admission Date: October 29, 2020 Subjective saw patient in the ICU before transfer to PCU. was talking on the phone initially. patient reports feeling well. no further nausea, emesis or abd pain. no headache. no reported seizures by staff. nicardipine drip off. no recent illness. no other household members with illness - specifically, no GI illness. reports compliance with BP meds. reports good BPs at home - she does check her readings and they are typically wnl. Review of Systems Constitutional: no fever, no chills and no anorexia Respiratory: no cough and no dyspnea Cardiovascular: no chest pain Gastrointestinal: no abdominal pain, no nausea, no vomiting and no diarrhea/loose stools Physical Exam Constitutional: well developed and well nourished; no acute distress and no altered mental status ENMT: external ear and nose normal, oropharynx normal Respiratory: normal respiratory effort, lungs clear to auscultation Cardiovascular: Rate/Rhythm: regular rate and regular rhythm Heart Sounds: normal S1 and normal S2; no murmur Vessels: posterior tibial pulses present and dorsalis pedis pulses present; no JVD Extremities: no edema Gastrointestinal (Abdomen): normal bowel sounds, soft, nontender, no hepatosplenomegaly Neurologic: moves all extremities; no focal motor deficits Psychiatric: A+Ox3, euthymic affect Results & Data Results & Data ([facility]) Vital Signs (Past 12 Hours) Vital Signs Temp Pulse Pulse Resp BP BP Pulse Ox 10/30/20 19:50 37.3 C 65 20 118/79 98 10/30/20 18:30 74 20 94 10/30/20 18:00 0 L 40 H 97 10/30/20 17:30 77 21 96 10/30/20 17:00 69 17 96 10/30/20 16:30 76 16 95 10/30/20 16:00 15 97 10/30/20 15:30 74 18 95 10/30/20 15:24 68 22 112/76 95 10/30/20 15:05 69 18 109/75 95 10/30/20 15:00 73 17 94 10/30/20 14:54 73 18 109/75 95 10/30/20 14:30 70 17 94 10/30/20 14:24 74 16 119/79 94 10/30/20 14:00 78 23 95 10/30/20 13:54 78 25 H 133/91 94 10/30/20 13:30 76 20 95 10/30/20 13:24 76 26 H 130/86 96 10/30/20 13:00 75 19 96 10/30/20 12:54 81 30 H 122/84 96 10/30/20 12:30 77 21 98 10/30/20 12:24 75 20 130/90 96 10/30/20 12:00 74 15 97 10/30/20 11:54 68 19 144/103 H 98 10/30/20 11:30 69 17 91 10/30/20 11:24 66 17 143/90 H 97 10/30/20 11:00 77 19 95 10/30/20 10:54 75 19 120/84 95 10/30/20 10:30 75 18 95 10/30/20 10:23 79 17 122/86 93 10/30/20 10:09 76 20 123/84 94 10/30/20 10:00 74 20 95 Laboratory Results Laboratory Results - last 24 hr 10/29/20 10/30/20 10/30/20 21:52 04:06 04:06 WBC 12.07 H RBC 4.13 L Hgb 12.8 Hct 37.8 MCV 91.5 MCH 31.0 MCHC 33.9 RDW Std Deviation 46.4 H RDW Coeff of Jose Luis 13.8 Plt Count 319 MPV 9.7 Immature Gran % (Auto) 0.2 Neut % (Auto) 68.4 Lymph % (Auto) 23.0 [place] % (Auto) 8.0 Eos % (Auto) 0.2 Baso % (Auto) 0.2 Neut # (Auto) 8.25 H Lymph # (Auto) 2.78 [place] # (Auto) 0.97 H Eos # (Auto) 0.02 Baso # (Auto) 0.02 Immature Gran # (Auto) 0.03 H Sodium 139 Potassium 3.5 Chloride 108 H Carbon Dioxide 25 Anion Gap 6.0 BUN 17 Creatinine 0.93 Est Cr Clr Drug Dosing 72.9 Est GFR ( Amer) 80.8 Est GFR (Non-Af Amer) 69.7 BUN/Creatinine Ratio 18.3 Glucose 116 H POC Glucose 137 H Lactate Calcium 8.1 L Magnesium 2.0 Troponin I Triglycerides 226 H Cholesterol 170 LDL Cholesterol, Calc 81 VLDL Cholesterol, Calc 45 HDL Cholesterol 44 Cholesterol/HDL Ratio 4 Procalcitonin 10/30/20 10/30/20 10/30/20 04:07 04:10 07:57 WBC RBC Hgb Hct MCV MCH MCHC RDW Std Deviation RDW Coeff of Jose Luis Plt Count MPV Immature Gran % (Auto) Neut % (Auto) Lymph % (Auto) [place] % (Auto) Eos % (Auto) Baso % (Auto) Neut # (Auto) Lymph # (Auto) [place] # (Auto) Eos # (Auto) Baso # (Auto) Immature Gran # (Auto) Sodium Potassium Chloride Carbon Dioxide Anion Gap BUN Creatinine Est Cr Clr Drug Dosing Est GFR ( Amer) Est GFR (Non-Af Amer) BUN/Creatinine Ratio Glucose POC Glucose 109 H Lactate 2.5 H* Calcium Magnesium Troponin I Triglycerides Cholesterol LDL Cholesterol, Calc VLDL Cholesterol, Calc HDL Cholesterol Cholesterol/HDL Ratio Procalcitonin < 0.05 10/30/20 10/30/20 10/30/20 09:45 11:42 16:26 WBC RBC Hgb Hct MCV MCH MCHC RDW Std Deviation RDW Coeff of Jose Luis Plt Count MPV Immature Gran % (Auto) Neut % (Auto) Lymph % (Auto) [place] % (Auto) Eos % (Auto) Baso % (Auto) Neut # (Auto) Lymph # (Auto) [place] # (Auto) Eos # (Auto) Baso # (Auto) Immature Gran # (Auto) Sodium Potassium Chloride Carbon Dioxide Anion Gap BUN Creatinine Est Cr Clr Drug Dosing Est GFR ( Amer) Est GFR (Non-Af Amer) BUN/Creatinine Ratio Glucose POC Glucose 100 H 95 Lactate Calcium Magnesium Troponin I 0.028 Triglycerides Cholesterol LDL Cholesterol, Calc VLDL Cholesterol, Calc HDL Cholesterol Cholesterol/HDL Ratio Procalcitonin 10/30/20 20:36 WBC RBC Hgb Hct MCV MCH MCHC RDW Std Deviation RDW Coeff of Jose Luis Plt Count MPV Immature Gran % (Auto) Neut % (Auto) Lymph % (Auto) [place] % (Auto) Eos % (Auto) Baso % (Auto) Neut # (Auto) Lymph # (Auto) [place] # (Auto) Eos # (Auto) Baso # (Auto) Immature Gran # (Auto) Sodium Potassium Chloride Carbon Dioxide Anion Gap BUN Creatinine Est Cr Clr Drug Dosing Est GFR ( Amer) Est GFR (Non-Af Amer) BUN/Creatinine Ratio Glucose POC Glucose 98 Lactate Calcium Magnesium Troponin I Triglycerides Cholesterol LDL Cholesterol, Calc VLDL Cholesterol, Calc HDL Cholesterol Cholesterol/HDL Ratio Procalcitonin PG Care Time/CCT Total # of Minutes Spent Total Time Spent with Patient: Total time spent is greater than 50% in recreation activities coordinator rdination of care (as documented) at patient's floor/unit and/or counseling patient: Coding Level of Care Code 74365 Subseq Hosp Care Lvl 3 Diagnoses Hypertensive emergency I16.1 HTN (hypertension) I10 PRES (posterior reversible encephalopathy syndrome) I67.83 Seizure R56.9 CAD (coronary artery disease) I25.10 Associated angina: without angina Coronary Disease-Associated Artery/Lesion type: [place] artery [place] vs. transplanted heart: [place] heart Nausea & vomiting R11.2 Vomiting Intractability: unspecified Vomiting type: unspecified Cyclic vomiting syndrome R11.15 Hyperlipidemia E78.5 Hyperlipidemia type: unspecified Marijuana dependence F12.20 DVT prophylaxis Z29.9 (1) CAD (coronary artery disease) Associated angina: without angina Coronary Disease-Associated Artery/Lesion type: [place] artery [place] vs. transplanted heart: [place] heart Qualified Code(s): I25.10 - Atherosclerotic heart disease of [place] coronary artery without angina pectoris (2) Hyperlipidemia Hyperlipidemia type: unspecified Qualified Code(s): E78.5 - Hyperlipidemia, unspecified (3) Nausea & vomiting Vomiting Intractability: unspecified Vomiting type: unspecified Qualified Code(s): R11.2 - Nausea with vomiting, unspecified
[2020-10-31] MEDS: CHECK CLONIDINE PATCH PLACEMENT SCH ×2 (00:05→08:26)
[2020-10-31 07:49] LABS: BUN Creatinine Ratio 22.2 (10-20); Calcium 8.7 mg/dl (8.5-10.1); Creatinine Clr Calc Pharmacy 90.7 ml/min; Est GFR (African American) 104.7; Est GFR (Non-African American) 90.4; Potassium 3.7 mmol/L (3.5-5.1)
--- NOTE | 2020-10-31 08:01 | Ultrasound Report ---
US duplex renal artery CLINICAL HISTORY: malignant HTN COMPARISON STUDY: CT of the abdomen and pelvis without contrast October 29, 2020. TECHNIQUE: Grayscale, color and duplex Doppler sonography of the abdominal aorta and bilateral renal arteries was performed. FINDINGS: Peak systolic velocity within the abdominal aorta was 66 cm/s. The bilateral renal arteries and veins were patent. There was no hydronephrosis. The peak systolic velocity within the right arnold l artery was 188 cm/s. Segmental waveforms within the right kidney were normal. The peak systolic ian ocity within the proximal left renal artery was elevated at 340 cm/s. The renal to aortic ratio on th e left was elevated at 5.1. Waveforms within the left kidney were within normal limits. Incidental no te is made of probable hepatic steatosis. IMPRESSION: Elevated velocity within the proximal left renal artery. This raises the possibility of left renal artery stenosis. CTA of the abdomen is recommended. ACT 112: Negative or not required by law. Electronically signed by: Flynn Shipley M.D. 10/31/2020 8:00 AM
[2020-10-31] MEDS: INSULIN ASPART 100 UNITS/ML 3 ML PEN SC SCH ×2 (08:25→12:21)
[2020-10-31] MEDS: VENLAFAXINE HCL XR 75 MG CAPXR PO SCH (08:27)
[2020-10-31] MEDS: LOSARTAN POTASSIUM 50 MG TAB PO SCH (08:27)
[2020-10-31] MEDS: METOPROLOL SUCC 50MG EXT REL TAB PO SCH (08:27)
[2020-10-31] MEDS: CHOLECALCIFEROL 1,000 UNITS 25 MCG TAB PO SCH (08:27)
[2020-10-31] MEDS: levETIRAcetam 500 MG TAB PO SCH (08:27)
[2020-10-31] MEDS: amLODIPine BESYLATE 5 MG TAB PO SCH (08:27)
[2020-10-31] MEDS: CLOPIDOGREL BISULFATE 75 MG TAB PO SCH (08:27)
[2020-10-31] MEDS: ENOXAPARIN INJ 40 MG/0.4 ML SYR SQ SCH (08:30)
[2020-10-31 12:04] VITALS: BP 115/71; PULSE 55; TEMP 98.2; O2SAT 91
--- NOTE | 2020-10-31 14:20 | Discharge Summary ---
Date of Service date of admission - October 29, 2020 date of discharge - October 31, 2020 Admission HPI Per Admitting Provider 55 YOF with past medical history significant for HTN, Seizures, PRES, cyclic vomiting syndrome, cannabinoid hyperemesis syndrome, CAD, HLD. Patient shows up to the emergency room after calling EMS for seizure at home. Patient awoke this morning with nausea, she tried to take her medications but as soon as she did, she continued to vomit and around 10am per her , she had a seizure which involved her shaking her arms and legs and no loss of consciousness. Of note they did use marijuana last night. The patient also reportedly had a seizure when getting transferred from the gurney to the bed, where she felt like she was going to seize and grabbed on to EMS. This episode reported by nursing lasted <1 min and did not involve confusion, loss of bowel or bladder, and only involved upper extremities. Patient was previously on Keppra, but stopped secondary to other causes likely being precipitating cause of the seizures in the past. Her BP elevation is associated with a unilateral temporal headache, which is now "mostly gone". Patient had a similar admission to this in 2019. In the EMD the patient had a CT scan of the head, CT of abdomen and pelvis, and MRI of the head. MRI reports microvascular ischemic disease and suggestive PRES. Patient received Labetalol in the ED IV and MAPS remain in the 120-130's. I have spoken with the ICU for closer monitoring of her BP and neurological exam as she has been refractory to treatment so far. Goal MAP 100-110 SBP 160's, DBP- 90. Will start on Nicardipine drip with MAP titration. Appreciate the ICU assistance in managing this patient. Principal Diagnosis Hypertensive Emergency / Posterior Reversible Encephalopathy Syndrome Discharge Exam Constitutional well developed and well nourished; no acute distress and no altered mental status ENMT external ear and nose normal, oropharynx normal Respiratory normal respiratory effort, lungs clear to auscultation Cardiovascular Rate/Rhythm: regular rate and regular rhythm Heart Sounds: normal S1 and normal S2; no murmur Vessels: posterior tibial pulses present and dorsalis pedis pulses present; no JVD Extremities: no edema Gastrointestinal (Abdomen) normal bowel sounds, soft, nontender, no hepatosplenomegaly Neurologic moves all extremities; no focal motor deficits Psychiatric A+Ox3, euthymic affect Discharge Data Allergies Allergy/AdvReac Type Severity Reaction Status Date / Time napoles Allergy Intermediate Hives Verified 11/02/20 10:35 doxycycline Allergy Intermediate hives and Verified 11/02/20 10:35 vomitting Iodinated Contrast Media Allergy Intermediate GIANT Verified 11/02/20 10:35 HIVES , VOMITTING, BODY FEELS HOT loperamide Allergy Intermediate Hives and Verified 11/02/20 10:35 vomiting meperidine Allergy Intermediate HIVES, Verified 11/02/20 10:35 VOMITING prochlorperazine Allergy Intermediate N/V, Verified 11/02/20 10:35 ITCHINESS strawberry Allergy Intermediate HIVES Verified 11/02/20 10:35 tomato Allergy Intermediate HIVES Verified 11/02/20 10:35 iodine Allergy . Verified 11/02/20 10:35 latex AdvReac Mild RASH Verified 11/02/20 10:35 Consultations Marketing Information Analyst [facility] Ordered Studies 10/29/20 11:20 CT head/brain wo con Stat IMPRESSION: 1. No acute intracranial abnormality. 2. Nonspecific white matter hypodensities redemonstrated. 10/29/20 11:46 CT abd pelvis wo con Stat IMPRESSION: 1. No acute intra-abdominal or intrapelvic abnormality. 2. No bowel obstruction or bowel wall thickening. Normal appendix. 3. Colonic diverticulosis. 10/29/20 12:49 MR brain wo con Stat IMPRESSION: 1. Markedly motion degraded exam. 2. Increased T2/FLAIR cortical-based signal within the posterior parietal lobes near the vertex is suggestive of posterior reversible encephalopathy syndrome (PRES). 3. No acute or subacute infarct. 4. Moderate T2/FLAIR hyperintensities are redemonstrated within the white matter suggestive of age advanced chronic microvascular ischemic disease versus a demyelinating process. 10/30/20 16:21 US duplex renal artery Routine IMPRESSION: Elevated velocity within the proximal left renal artery. This raises the possibility of left renal artery stenosis. CTA of the abdomen is recommended. Echocardiogram: * EF 60-65% * no regional wall motion abnormalities * no significant valvular disease EEG: no seizure focus/normal. Hospital Course (1) Hypertensive emergency: Patient with marked BP elevation at presentation despite reported compliance with complex regimen of BP meds (presenting BP was ~200 systolic). She was admitted to the ICU and initiated on nicardipine drip. BPs improved very quickly with such, and by the next day the drip was weaned off and her home BP medication regimen was resumed. The exact cause of her HTN emergency was uncertain. She has had numerous hospital stays for similar circumstances including prior episode of PRES. She had significant headache and profuse vomiting at presentation - uncertain if the HTN was the cause of these symptoms, or vice versa. She has had secondary HTN work-up in the past including urine and plasma metanephrines on several occasions (all normal), aldosterone level (normal), TSH (normal), etc. I did obtain a renal artery duplex and there is some suggestion that she may have renal artery stenosis on the left. Thus, she will be referred to vascular surgery to address this. Lastly, I encouraged her to obtain outpatient sleep study as her has madeline d her she does indeed snore. (2) HTN (hypertension): Home meds including amlodipine 5mg daily, clonidine patch, losartan 100mg daily, and metoprolol xl 100mg BID easily controlled her BPs once the nicardipine drip was off. She was observed for more than 24-hours on her home medication regimen and all BPs were well-controlled with such. See above in "hypertensive emergency." (3) PRES (posterior reversible encephalopathy syndrome): As confirmed on MRI; in the setting of HTN emergency. Serial neuro exams wnl. Mental status wnl. Did have complicating seizures in the context of HTN emergency/PRES. Restarted on keppra and titrated to 1000mg BID. Seen by neurology, Dr Philip Melendrez, who advised ongoing keppra post-discharge and close f/u with Dr Radha Forrester - her primary neurologist. (4) Seizure: history of seizures in the past. follows with [facility]. given the recurrency of seizures - reloaded with IV keppra at time of admission. now on keppra 1000mg BID. Will f/u with Dr Radha Forrester post-discharge. (5) CAD (coronary artery disease): No evidence of ACS despite HTN emergency. Continue ARB, BB, and Plavix. 2017 cath - mild/moderate non-obstructive CAD with 40% lesion of RCA as worst vessel. Ideally should be on statin. Defer this to her PCP. Echo with preserved EF and normal wall motion this admission. (6) Nausea & vomiting: Uncertain if 2nd to cyclic vomiting syndrome vs THC hyperemesis syndrome vs migraine vs due to HTN emergency itself. Either way - resolved. No evidence of acute hepatitis, pancreatitis, infectious etiology, etc as cause of presenting GI symptoms. (7) Cyclic vomiting syndrome: Per the EMR - history of such. (8) Hyperlipidemia: Not on statin. LDL 80-100 chronically. But given her known CAD ideally she take statin. (9) Marijuana dependence: Education and counseling regarding chronic use of THC provided. Total Time Total Time Spent Total Time Spent (In Minutes): 45 Total Time Includes: Examination of the Patient, Discharge Planning, Medication Reconciliation and Communication With Other Providers Discharge Plan Discharge Items Patient Disposition: Home - Self-Care Reason For Visit: Hypertensive Emergency Discharge Diagnosis: 1. severe vomiting/headache - resolved 2. hypertensive emergency and "PRES" (severely elevated blood pressure causing headache, changes on MRI of the brain, etc) - resolved; see below and see handout 3. question of left-sided renal artery stenosis - follow-up needed Activity: Resume your previous activity Non-emergency contact: Primary Care Provider Call non-emergency contact if: you have any medication questions, your symptoms worsen and you have a fever Follow-up/Referrals: Teena Killian DO [Primary Care Provider] - 11/03/20 8:20 am (within 1 week) Radha Forrester MD [Physician] - (2-4 weeks - seizures/ DR MORGAN OFFICE WILL CALL YOU WITH A FOLLOW UP APT) Alex Person MD [Physician] - (first available; dx ?left-sided renal artery stenosis PLEASE CALL DR PERSON'S OFFICE TO MAKE AN APT.) Diet: Carb Consistent or DM2 and Heart Healthy Addtl Attending Provider Instructions: Mrs Velasquez, You were treated for hypertensive emergency in the ICU with IV blood pressure medication. The severely elevated blood pressures led to something called "PRES" (posterior reversible encephalopathy syndrome). We saw this on your MRI of the brain. Please see handout on this condition. We have restarted your keppra medication for your seizures. Please take keppra 1000mg twice daily every day. NO DRIVING, NO OPERATING HEAVY machinery, no unattended tub baths, no swimming pool usage for 6 months. If you have episodes of severe vomiting in the future please take your zofran (o ndansetron) tablets right away and check your blood pressure. If your blood pressure is elevated (top number greater than 175) please seek medical attention. Lastly, you may have a condition called renal artery stenosis. This is when there is plaque build-up in the artery(s) leading to your kidneys. Your sonogram of the left renal artery showed a possible blockage. Please see Dr Person from [facility] for this. 1. keppra 1000mg twice daily every day 2. ondansetron 4mg every 6 hours as needed for nausea/vomiting 3. check your blood pressure every day 4. check your blood sugar once daily if possible as you are a pre-diabetic Follow-up - see separate section Return to [facility] if - * you have additional seizures * you have uncontrollable vomiting * you have severe headache * you have shortness of breath or chest pain * you have confusion, difficulty moving an arm/leg, dizziness, difficulty speaking/swallowing, etc * any other concerns Stay well! -Dr Hager Pending Studies at Discharge: No Stand-Alone Forms: My [facility], Smoking Cessation Medications and DC Order Prescriptions: New levetiracetam [Keppra] 1,000 mg tablet 1,000 mg PO BID Qty: 60 RF: 5 Continued atorvastatin 80 mg tablet 80 mg PO HS Qty: 90 RF: 3 losartan [Cozaar] 100 mg tablet 100 mg PO QAM Qty: 90 RF: 1 amlodipine 5 mg tablet 5 mg PO DAILY Qty: 90 RF: 2 amitriptyline 25 mg tablet 25 mg PO HS Qty: 90 RF: 2 metoprolol succinate [Toprol XL] 100 mg tablet extended release 24 hr 100 mg PO BID Qty: 90 RF: 2 venlafaxine [Effexor XR] 75 mg capsule,extended release 24hr 75 mg PO DAILY Qty: 30 RF: 2 clopidogrel [Plavix] 75 mg tablet 75 mg PO QAM Qty: 90 RF: 1 cholecalciferol (vitamin D3) 50 mcg (2,000 unit) tablet 50 mcg PO DAILY Qty: 30 RF: 3 multivitamin Tablet 1 tab PO QAM RF: 0 promethazine 25 mg tablet 25 mg PO Q6H PRN (Reason: Nausea And Vomiting) RF: 0 capsaicin 0.025 % cream 1 applic topical QID Qty: 25 RF: 0 clonidine HCl 0.1 mg tablet 0.1 mg PO Q6 PRN (Reason: Systolic BP>180) Qty: 10 RF: 0 ondansetron 4 mg tablet,disintegrating 4 mg PO Q6H PRN (Reason: Nausea And Vomiting) Qty: 20 RF: 0 No Action clonidine 0.1 mg/24 hr patch weekly 1 patch topical WK RF: 0 Discharge Orders: Discharge Order (Routine); Ordered 10/31/20 Ordered By: Franck Betancourt/Other Patient Handouts: Your High Blood Pressure Risk Factors, DASH Plan Eat Heart Healthy Food Admission Data Admit Date/Time: 10/29/20 17:49 Attending Provider: Franck Hager Admit Provider: Armando Cedeno Primary Care Provider: Teena Killian Other Providers: Armando Cedeno ; Tammi Joseph ; Philip Melendrez Other Interventions: Discharge Summary Assessment (RN) Last Done: 10/31/20 14:28 Coding Level of Care Code D/C Day Management >30 mins Diagnoses Hypertensive emergency I16.1 HTN (hypertension) I10 PRES (posterior reversible encephalopathy syndrome) I67.83 Seizure R56.9 CAD (coronary artery disease) I25.10 Associated angina: without angina Coronary Disease-Associated Artery/Lesion type: [place] artery [place] vs. transplanted heart: [place] heart Nausea & vomiting R11.2 Vomiting Intractability: unspecified Vomiting type: unspecified Cyclic vomiting syndrome R11.15 Hyperlipidemia E78.5 Hyperlipidemia type: unspecified Marijuana dependence F12.20
[2020-10-31 16:07] LABS: Marijuana Quant, GCMS Urine 1340 ng/mL (<5)
== END 2020-10-31 14:53 | disposition home or self-care (01) | DRG 304 ==
LOC: ED 10:59 → SUATTDRO 17:49 → 1E 17:49 → 2S 10-30 16:18

== ENCOUNTER 2020-11-02 09:10 | Observation (INO) ==
[2020-11-02] MEDS ORDERED: ONDANSETRON INJ 2 MG/ML 2 ML VIAL ONE (09:48)
[2020-11-02] MEDS ORDERED: levETIRAcetam 1,000 MG in 0.9 % SODIUM CHLORIDE 100 ML IV STA (10:39)
[2020-11-02] MEDS ORDERED: ACETAMINOPHEN 1,000 MG/100 ML VIAL IV STA (10:39)
[2020-11-02] MEDS ORDERED: niCARdipine 25 MG in SODIUM CHLORIDE 0.9% 240 ML IV PRN (10:39)
[2020-11-02] MEDS ORDERED: ONDANSETRON INJ 2 MG/ML 2 ML VIAL IV STA ×2 (10:41→12:04)
[2020-11-02 11:08] LABS: Basophils # (auto) 0.06 K/uL (0-0.2); Basophils % (auto) 0.4 %; Eosinophils # (auto) 0.06 K/uL (0-0.5); Eosinophils % (auto) 0.4 %; Hematocrit (blood only) 44.9 % (37-47); Hemoglobin 15.4 g/dL (12.0-16.0); Immature Granulocytes # (auto) 0.05 K/uL (0.00-0.02); Immature Granulocytes % (auto) 0.4 %; Lymphocytes # (auto) 1.71 K/uL (1.2-3.4); Lymphocytes % (auto) 12.5 %; Mean Corpuscular Hemoglobin 31.2 pg (25-34); Mean Corpuscular Hgb Conc 34.3 g/dL (32-36); Mean Corpuscular Volume 90.9 fL (80-100); Mean Platelet Volume 10.3 fL (7.4-10.4); Monocytes # (auto) 0.35 K/uL (0.11-0.59); Monocytes % (auto) 2.6 %; Neutrophils # (auto) 11.42 K/uL (1.4-6.5); Neutrophils % (auto) 83.7 %; Platelet Count 397 K/uL (130-400); RDW Coefficient of Variation 13.5 % (11.5-14.5); RDW Standard Deviation 44.4 fL (36.4-46.3); Red Blood Count 4.94 M/uL (4.2-5.4); White Blood Count 13.65 K/uL (4.8-10.8)
--- NOTE | 2020-11-02 11:30 | CT Scan Report ---
CT head/brain wo con CLINICAL HISTORY: 55 years-old Female with Stroke Like Symptoms. Acute strokelike symptoms TECHNIQUE: Multiple axial CT images of the head were obtained without contrast. A dose lowering tech nique was utilized adhering to the principles of ALARA. CT DOSE: 729.78 mGycm COMPARISON: Head CT 10/29/2020 FINDINGS: Mildly motion degraded exam. No acute intracranial hemorrhage, midline shift, intracranial mass, hydr ocephalus, territorial ischemia or abnormal extra-axial collection. Unchanged white matter hypodensit ies which are nonspecific and suggestive of chronic microvascular ischemic disease versus demyelinati ng process. The calvarium is intact. Prior bilateral lens repair. Rightward bowing of the nasal septum. The paran indigo sinuses, mastoid air cells, and middle ear cavities are clear. IMPRESSION: Chronic findings as above without acute intracranial abnormality. ACT 112: Negative or not required by law. The above report was generated using voice recognition software. It may contain grammatical, syntax o r spelling errors. Electronically signed by: Anam Jimenez M.D. 11/02/2020 11:28 AM
[2020-11-02 11:31] LABS: INR 0.9 (0.9-1.1); Partial Thromboplastin Ratio 0.9; Partial Thromboplastin Time 24.7 Seconds (21.0-31.0); Prothrombin Time 9.3 Seconds (9.0-12.0)
[2020-11-02] MEDS ORDERED: CAPSAICIN CR 0.075% 60 GM TUBE EXT STA (11:32)
[2020-11-02] MEDS ORDERED: LABETALOL HCL IV 5 MG/ML 20ML IV STA ×2 (11:35→12:10)
[2020-11-02 11:36] LABS: Alanine Aminotransferase 35 U/L (12-78); Albumin Level 4.2 gm/dl (3.4-5.0); Aspartate Aminotransferase 21 U/L (15-37); BUN Creatinine Ratio 19.4 (10-20); Blood Urea Nitrogen 19 mg/dl (7-18); Calcium 9.8 mg/dl (8.5-10.1); Carbon Dioxide 26 mmol/L (21-32); Chloride 107 mmol/L (98-107); Est GFR (African American) 77.7; Glucose 162 mg/dl (70-99); Magnesium 1.9 mg/dl (1.8-2.4); Potassium 3.8 mmol/L (3.5-5.1); Sodium 139 mmol/L (136-145)
[2020-11-02 11:41] LABS: Alkaline Phosphatase 123 U/L (45-117); Bilirubin,Total 0.3 mg/dl (0.2-1); Globulin 4.4 gm/dl (2.5-4.0); Total Protein 8.6 gm/dl (6.4-8.2); Troponin I < 0.015 ng/ml (0-0.045)
--- NOTE | 2020-11-02 11:51 | XRay Report ---
XR chest 1V portable HISTORY: 55 years-old Female Pt c/o HTN acute hypertension COMPARISON: Chest radiograph 10/29/2020 TECHNIQUE: Portable AP view of the chest FINDINGS: Cardiomediastinal and hilar silhouettes are within normal limits. No pneumothorax, pleural effusion, airspace consolidation or overt pulmonary edema. Bones of the chest appear grossly intact. Healed chr onic right posterolateral seventh rib fracture. Cervical spinal fusion hardware. IMPRESSION: No acute process. ACT 112: Negative or not required by law. The above report was generated using voice recognition software. It may contain grammatical, syntax o r spelling errors. Electronically signed by: Anam Jimenez M.D. 11/02/2020 11:50 AM
[2020-11-02] MEDS ORDERED: hydrALAZINE HCL 20 MG/ML VIAL IV STA (12:05)
--- NOTE | 2020-11-02 12:12 | History & Physical Report ---
Date of Service November 02, 2020 Assessment & Plan (1) Hypertensive urgency: Suspect secondary to poor absorption of medication which nausea and vomiting. Usually responds quickly to IV anti-hypertensives Nitroglycerin 2% 1 inch patch, remove if sBP < 100 Clonidine patch, remove if sBP < 100 Hydralazine 10mg IV Q4H PRN Labetalol 10mg IV Q2H PRN sBP > 180 Continue her usual antihypertensives when able to tolerate PO (2) Cannabinoid hyperemesis syndrome: Highly encouraged to stop cannabis and if hyperemesis continues will get urine tox and prove hyperemesis not due to this otherwise all providers will continue to diagnose cannabinoid hyperemesis. Mild improvement with capsaicin cream Apparently no improvement after 3 months of cessation although unclear when this was since every urine toxicology screen has been positive for THC since 2017. Continue amitriptyline as per prior GI note -> consider up titrating to 75mg HS (3) Nausea & vomiting: concerned about arsenic poisoning which interestingly heavy metal labs were performed in 2017 and negative. Tried to explain prior workups to they were not open to this at the time of admission. Ondansetron 4mg IV Q6H PRN Gastric occult blood (4) CAD (coronary artery disease): Mild-moderate non-obstructive on prior cardiac cath. Continue clopidogrel 75mg PO daily, metoprolol succinate 100mg PO BID, losartan 100mg PO QAM, atorvastatin 80mg PO HS (5) Marijuana dependence: (6) Seizure: Recurrent seizure-like episodes in setting of hypertensive urgency Continue Keppra 1g IV BID Admission and Anticipated Discharge Date Admission Date: November 02, 2020 History of Present Illness Chief Complaint: Nausea, vomiting, abdominal pain Primary Care Provider: DO Cyndie Romero is a 55-year-old female well known to this service who presents to the ER with recurrent hypertensive urgency related to sudden onset abdominal pain and vomiting. She has had multiple similar episodes which have been suspected to be secondary to cannabis hyperemesis syndrome. The patient but especially her have much issue with this diagnosis as they feel her hyperemesis is worse when she stops marijuana. I explained the objective evidence if this is getting worse is that her THC content in her urine has been increasing and would highly advise a trial again without marijuana to prove this is not the cause otherwise. We have no urine toxicology screens that are negative for marijuana. On this occasion she was discharged just on October 31 (2 days ago), she was doing well later that night but around 4am in the morning she woke up with abdominal pain and severe nausea and vomiting. This has been persistent since yesterday and similar to her previous episodes. She is concerned there is some blood in her vomit. Per prior GI note. Gastric emptying study normal, prior EGD 2017 unremarkable. Allergies Allergy/AdvReac Type Severity Reaction Status Date / Time napoles Allergy Intermediate Hives Verified 11/02/20 10:35 doxycycline Allergy Intermediate hives and Verified 11/02/20 10:35 vomitting Iodinated Contrast Media Allergy Intermediate GIANT Verified 11/02/20 10:35 HIVES , VOMITTING, BODY FEELS HOT loperamide Allergy Intermediate Hives and Verified 11/02/20 10:35 vomiting meperidine Allergy Intermediate HIVES, Verified 11/02/20 10:35 VOMITING prochlorperazine Allergy Intermediate N/V, Verified 11/02/20 10:35 ITCHINESS strawberry Allergy Intermediate HIVES Verified 11/02/20 10:35 tomato Allergy Intermediate HIVES Verified 11/02/20 10:35 iodine Allergy . Verified 11/02/20 10:35 latex AdvReac Mild RASH Verified 11/02/20 10:35 Home Medications Medication Instructions Recorded Confirmed Type multivitamin 1 tab PO QAM 12/16/18 11/02/20 History promethazine 25 mg PO Q6H PRN 07/17/19 11/02/20 History atorvastatin 80 mg tablet 80 mg PO HS #90 tab 04/04/20 11/02/20 Rx capsaicin 1 applic TOPICAL QID #25 g 04/09/20 11/02/20 Rx clonidine HCl 0.1 mg PO Q6 PRN #10 tab 04/14/20 11/02/20 Rx losartan 100 mg tablet 100 mg PO QAM #90 tab 06/13/20 11/02/20 Rx amitriptyline 25 mg tablet 25 mg PO HS #90 tab 08/08/20 11/02/20 Rx amlodipine 5 mg tablet 5 mg PO DAILY #90 tab 08/08/20 11/02/20 Rx cholecalciferol (vitamin D3) 50 50 mcg PO DAILY #30 tab 08/29/20 11/02/20 Rx mcg (2,000 unit) tablet metoprolol succinate 100 mg 100 mg PO BID #90 tab 10/09/20 11/02/20 Rx tablet,extended release 24 hr clopidogrel 75 mg tablet 75 mg PO QAM #90 tab 10/16/20 11/02/20 Rx venlafaxine 75 mg capsule,extended 75 mg PO DAILY #30 cap 10/16/20 11/02/20 Rx release 24 hr levetiracetam [Keppra] 1,000 mg PO BID #60 tab 10/31/20 11/02/20 Rx ondansetron 4 mg PO Q6H PRN #20 tab 10/31/20 11/02/20 Rx clonidine 1 patch TOPICAL WK 11/02/20 11/02/20 History Past Med/Surg History Medical History Abnormal MRI of head Acute UTI Anxiety disorder CAD (coronary artery disease) Mild-moderate non-obstructive Carotid stenosis < 50% stenosis B/L per US 12/16/18 Cervical disc disorder Congestive heart failure, acute 06/2017, admitted [facility]. Ruled 2/2 Takasubo CM. Cyclic vomiting syndrome Diverticulitis Diverticulosis Gastritis Grief reaction Hematemesis Hematuria History of diverticulitis of colon History of gastritis History of hypotension Hot flashes due to menopause HTN (hypertension) Hx-TIA (transient ischemic attack) Hypercalcemia Hyperlipidemia Hypertension Hypertensive urgency Hypokalemia Marijuana dependence Multiple thyroid nodules New onset seizure 07/17/2019 NSTEMI (non-ST elevated myocardial infarction) 2017 [facility]. Cath performed showed mild to moderate non-obstructive CAD. PRES (posterior reversible encephalopathy syndrome) Pulmonary emphysema Takotsubo cardiomyopathy 2017. Admitted [facility], full cardiac workup including cath. EF at the time 40%, now resolved to 60-65% on echo 2018. Transient cerebrovascular ischemia Vitamin D deficiency Surgical History H/O cervical spine surgery ACDF C4-7 Dr. [place] History of cardiac cath 5-6 YR AGO - [place] - NO STENTS (per pt report, this cath not noted in cardiology notes) 2017, NSTEMI. NO INTERVENTION. History of hernia surgery History of hysterectomy History of ovarian cystectomy S/P cervical discectomy Family History Father Family history of stomach cancer Stroke Myocardial infarction Malignant neoplasm of esophagus Stomach cancer Uncle Family history of cancer FAMILY HISTORY OF CANCER - UNCLE - VOCAL CORDS FAMILY HISTORY OF CANCER - AUNT - ? KIND Throat cancer Grandmother (Maternal) Breast cancer Bone cancer Mother No problems noted. Other No pertinent family history Denies family history of Colon cancer Ovarian cancer Prostate cancer Crohn's disease IBD (inflammatory bowel disease) Social History Smoking Status: Current some day smoker packs per day: 2; Years Smoked: 25; Second Hand Exposure: Yes; Do You Dip or Chew Tobacco: No; Tobacco Cessation Education Requested by Patient: No Hx Alcohol Use: Yes Alcohol type: beer Hx Substance Use: Yes Last Used Substance: Days (ago) Last Used Substance Other:: 10/28/20 Substance Use Type Other:: when zofran doesn't work Preferred Language: Malian Communication Ability: Effective Visual Impairment: Limited Hearing Ability: Normal Spiral Tube Winder Helper Required: No Beliefs That Will Affect Care: None marital status: Current Living Situation: Spouse current occupational status: employed current occupation: [employer] Other Information That Helps Us Care for You: No Feels Safe at Home: Yes Safety Concerns: Feels Safe At This Time Childhood Exposure to Second-Hand Smoke: Yes caffeine: Yes (1 cup of coffee) during the past year weight has: other Dental Care, Regularly: No Physical Activity Frequency: Daily Physical Activity Frequency Comment: walking Seatbelt Use: always Sunscreen Use: Yes Assistive Devices: None Review of Systems Review of Systems: All systems reviewed & are unremarkable except as noted in HPI & below Physical Exam Constitutional: WD/WN, vitals as above + acute distress (nausea and vomiting) Eyes: + anicteric sclerae; normal pupil size ENMT: external ear and nose normal, oropharynx normal Neck: trachea midline, no thyromegaly Respiratory: normal respiratory effort, lungs clear to auscultation Cardiovascular: Rate/Rhythm: regular rhythm and + tachycardic Heart Sounds: no murmur Extremities: normal capillary refill; no pedal edema Gastrointestinal (Abdomen): Inspection/Auscultation: abdomen normal to inspection Percussion/Palpation: + abdomen tender (generalized) and abdomen soft; no guarding and abdomen not rigid Musculoskeletal: no cyanosis or clubbing, extremities motor strength 5/5 Skin: no rashes, warm and dry Neurologic: moves all extremities and awake; not confused Psychiatric: A+Ox3, euthymic affect Results & Data Results & Data ([facility]) Vital Signs (Past 12 Hours) Vital Signs Temp Pulse Pulse Resp BP BP Pulse Ox 11/02/20 11:45 96 H 17 98 11/02/20 11:32 89 16 98 11/02/20 11:30 97 H 10 L 219/132 H 97 11/02/20 11:29 93 H 14 218/132 H 97 11/02/20 11:00 95 H 15 234/164 H 95 11/02/20 10:45 101 H 17 99 11/02/20 10:30 97 H 17 251/148 H 96 11/02/20 10:15 99 H 7 L 97 11/02/20 10:00 89 88 7 L 231/149 H 231/149 H 95 11/02/20 09:56 82 12 96 11/02/20 09:34 104 H 20 226/144 H 97 11/02/20 09:32 89 14 226/144 H 96 11/02/20 09:17 36.5 C 109 H 20 200/160 H 96 Diagnostic Findings XR chest 1V portable IMPRESSION: No acute process. CT head/brain wo con IMPRESSION: Chronic findings as above without acute intracranial abnormality. Medications Administered ER Medications Given: Keppra 1g IV Ondansetron 4mg IV Nicardipine 5mg/hr Acetaminophen 1g IV Capsaicin cream Labetalol 10mg IV ECG Indication: abdominal pain Rate (beats per minute): 89 Rhythm: normal sinus Findings: + left axis deviation; no acute ischemic change Comparison ECG Date: from (October 29, 2020) Change: no significant change Code Status & VTE Plan Code Status Full VTE Prophylaxis Plan VTE Prophylaxis will be ordered: No Reason for no VTE drug order: Treatment not indicated Reason for no VTE mechanical prophylaxis: Treatment not indicated PG Care Time/CCT Total # of Minutes Spent Total Time Spent with Patient: Total time spent is greater than 50% in coordination of care (as documented) at patient's floor/unit and/or counseling patient: Coding Level of Care Code 48680 OBS Care - Level 3 Diagnoses Hypertensive urgency I16.0 Cannabinoid hyperemesis syndrome F12.988 Nausea & vomiting R11.2 Vomiting Intractability: unspecified Vomiting type: unspecified CAD (coronary artery disease) I25.10 Associated angina: without angina Coronary Disease-Associated Artery/Lesion type: [place] artery [place] vs. transplanted heart: [place] heart Marijuana dependence F12.20 Seizure R56.9 (1) CAD (coronary artery disease) Associated angina: without angina Coronary Disease-Associated Artery/Lesion type: [place] artery [place] vs. transplanted heart: [place] heart Qualified Code(s): I25.10 - Atherosclerotic heart disease of [place] coronary artery without angina pectoris (2) Nausea & vomiting Vomiting Intractability: unspecified Vomiting type: unspecified Qualified Code(s): R11.2 - Nausea with vomiting, unspecified
[2020-11-02 12:30] LABS: Influenza A virus by PCR Negative (Neg); Influenza B virus by PCR Negative (Neg); RSV by PCR Negative (Neg); SARS CoV2 RNA(COVID-19) InHosp NEGATIVE (Negative)
[2020-11-02] MEDS ORDERED: LORazepam 0.25 MG/0.5 ML VIAL IV STA (12:32)
[2020-11-02] MEDS ORDERED: NITROGLYCERIN 2% OINTMENT 30GM TUBE EXT STA (12:37)
[2020-11-02] MEDS ORDERED: hydrALAZINE HCL 20 MG/ML VIAL IV PRN ×2 (12:37→14:14)
[2020-11-02] MEDS ORDERED: PANTOprazole 40 MG in SYRINGE 0 ML IV ONE (13:00)
[2020-11-02] MEDS ORDERED: LABETALOL HCL IV 5 MG/ML 20ML IV PRN (14:14)
[2020-11-02] MEDS ORDERED: ONDANSETRON INJ 2 MG/ML 2 ML VIAL IV PRN (14:14)
[2020-11-02] MEDS: NITROGLYCERIN 2% OINTMENT 30GM TUBE EXT SCH ×2 (15:59→20:31)
[2020-11-02] MEDS: LACTATED RINGER'S 1,000 ML IV SCH ×2 (16:00→22:37)
[2020-11-02] MEDS: CHECK CLONIDINE PATCH PLACEMENT SCH ×2 (16:02→23:09)
[2020-11-02] MEDS ORDERED: CAPSAICIN CR 0.075% 60 GM TUBE EXT PRN (16:53)
--- NOTE | 2020-11-02 17:06 | Electrocardiogram Report ---
Test Reason : Blood Pressure : / mmHG Vent. Rate : 089 BPM Atrial Rate : 089 BPM P-R Int : 204 ms QRS Dur : 086 ms QT Int : 372 ms P-R-T Axes : 049 -35 041 degrees QTc Int : 452 ms Normal sinus rhythm Possible Left atrial enlargement Left axis deviation Abnormal ECG When compared with ECG of 29-OCT-2020 11:08, QRS axis Shifted left Borderline criteria for Inferior infarct are no longer Present Confirmed by Pako Holland ([id number]) on 11/02/2020 5:06:15 PM Referred By: Confirmed By:Tereso Holland
--- NOTE | 2020-11-02 17:58 | Emergency Department Note ---
Impression & Plan Hypertensive urgency, Nausea & vomiting ED Provider Note NAME: ONEL MONTOYA AGE: 55 SEX: F : 1965 ARRIVES VIA: Walk-In INFORMANT: Patient, ED PROVIDER(S): Igor Elizabeth MD CHIEF COMPLAINT: hypertension, vomiting HPI: This is a 55-year-old female who was recently admitted to the ICU over concerns about hypertensive urgency. The patient reports she woke up this morning and began vomiting. She was subsequently unable to keep any of her seizure medication or her blood pressure medication down. She presents to the emergency department complaining of a headache. She denies any fevers or chi lls. She reports nothing seems to make the headache any better or worse. She has been unable to take anything for the headache. ROS: See above HPI for pertinent positives & negatives. A total of 10 systems reviewed and were otherwise negative. PAST MEDICAL HISTORY: See Below PAST SURGICAL HISTORY: See Below FAMILY HISTORY: See Below SOCIAL HISTORY: See Below HOME MEDICATIONS: See Below ALLERGIES: See Below VITALS: See Below PHYSICAL EXAMINATION: VITAL SIGNS - Vital signs and nursing notes were reviewed. GENERAL - 55-year-old female appearing stated age who is in no acute distress. Communicates well with provider and answers questions appropriately. SKIN - Without rashes. HEAD - NC/AT. EYES - PERRL with EOMI bilaterally. Sclera anicteric. Palpebral conjunctiva pink and moist with no injection noted. EARS - No deformities of external structures noted on gross examination bilaterally. NOSE - Midline and without cyanosis. No epistaxis or purulent drainage noted. Septum midline without deviation or septal hematoma noted. MOUTH/OROPHARYNX - Without perioral cyanosis. Buccal mucosa pink and moist and without leukoplakia. Tongue midline with equal elevation of palate bilaterally. No tonsillar hypertrophy, erythema, or exudates noted. dentition noted. NECK - Neck with FROM. Supple to palpation. lymphadenopathy noted. No nuchal rigidity. LUNGS - Chest wall symmetric without accessory muscle use, intercostals retractions, or central cyanosis. Normal vesicular breath sounds CTA B/L. No wheezes, rales, or rhonchi appreciated. CARDIAC - RRR with S1/S2. No murmur, rubs, or gallops appreciated. ABDOMEN - Abdominal contour without pulsations or visible masses. BS normoactive all four quadrants. No tenderness, palpable masses, hepatosplenome gabriele, or ascites noted. EXTREMITIES - No clubbing or peripheral cyanosis. No pretibial edema present. +3/5 radial, posterior tibial, and dorsalis pedis pulses palpated throughout. +5/5 strength noted in UE/LE bilaterally. NEUROLOGIC - Cranial nerves II through XII grossly intact. Sensory intact to light touch throughout. Patellar reflexes +2/4. PSYCH - A&Ox3 and cooperates fully with examiner. Pt is very pleasant and interacts well with examiner. MEDICAL DECISION MAKING: Patient was seen and evaluated as above in room A3. Review was performed of nursing notes and vital signs. I did review pertinent previous visits and patient history. After obtaining a thorough history and physical examination the above work up was performed. This is a 55-year-old female who presents emergency department complaining of what appears to be hypertensive urgency. The patient patient was given labet alol as well as hydralazine here in the emergency department. Repeat examination revealed improvement the patient's symptoms. Because of the patient's high blood pressure and inability to keep anything down I did discuss the case with the hospitalist service who did agree to meet the patient. The patient was also discussed with the ICU due to the nicardipine drip. While in the department, I personally reevaluated the patient several times and each time the patient was found to be resting comfortably. The patient was educated upon management, educated upon todays findings/results, educated upon importance of follow up from today's visit, educated upon symptoms in which to return, had questions answered prior to discharge, verbalized understanding, and was discharged home in good condition. An order was placed for continuous cardiac monitoring. The monitor shows a rate of 112 with Normal SInus rhythm. The patient was evaluated during a period of high volume and high acuity during the global COVID-19 pandemic, and that diagnosis was suspected/considered upon their initial presentation. Their evaluation, treatment and testing was consistent with current guidelines for patients who present with complaints or symptoms that may be related to COVID-19. Patient was seen while provider was wearing PPE. Triage Nursing notes reviewed. Prior medical records reviewed Vital Signs: reviewed and remarkable for no significant abnormalities Differential diagnosis: Benign hypertension, hypertensive emergency, cardiovascular pathology, toxicologic, pheochromocytoma, electrolyte abnormality, renal disease, endorgan damage, as well as other pathologies. ER treatment provided: See below Diagnostics interpreted by me: ECG: EKG shows a normal sinus rhythm possible left atrial enlargement left axis deviation when compared to EKG 10/29/2020 there QRS axis has shifted left. QTC is 452 ventricular rate is 89 Laboratory studies: As stated above and show below. Imaging studies: See below Consultation(s): Hospitalist, ICU Critical Care: I have personally spent greater than 30 minutes of critical care time in the direct management of this patient. This includes bedside care, interpretation of diagnostic studies, and testing, discussion with consultants, patient, and family members, and other required patient management activities. This 30 minutes is in excess of all separately billable procedures. Past Med/Surg History Medical History Abnormal MRI of head Acute UTI Anxiety disorder CAD (coronary artery disease) Mild-moderate non-obstructive Carotid stenosis < 50% stenosis B/L per US 12/16/18 Cervical disc disorder Congestive heart failure, acute 06/2017, admitted [facility]. Ruled 2/2 Takasubo CM. Cyclic vomiting syndrome Diverticulitis Diverticulosis Gastritis Grief reaction Hematemesis Hematuria History of diverticulitis of colon History of gastritis History of hypotension Hot flashes due to menopause HTN (hypertension) Hx-TIA (transient ischemic attack) Hypercalcemia Hyperlipidemia Hypertension Hypertensive urgency Hypokalemia Marijuana dependence Multiple thyroid nodules New onset seizure 07/17/2019 NSTEMI (non-ST elevated myocardial infarction) 2017 [facility]. Cath performed showed mild to moderate non-obstructive CAD. PRES (posterior reversible encephalopathy syndrome) Pulmonary emphysema Takotsubo cardiomyopathy 2017. Admitted [facility], full cardiac workup including cath. EF at the time 40%, now resolved to 60-65% on echo 2019. Transient cerebrovascular ischemia Vitamin D deficiency Surgical History H/O cervical spine surgery ACDF C4-7 Dr. [place] History of cardiac cath 5-6 YR AGO - DC - NO STENTS (per pt report, this cath not noted in cardiology notes) 2017, NSTEMI. NO INTERVENTION. History of hernia surgery History of hysterectomy History of ovarian cystectomy S/P cervical discectomy Family History Father Family history of stomach cancer Stroke Myocardial infarction Malignant neoplasm of esophagus Stomach cancer Uncle Family history of cancer FAMILY HISTORY OF CANCER - UNCLE - VOCAL CORDS FAMILY HISTORY OF CANCER - AUNT - ? KIND Throat cancer Grandmother (Maternal) Breast cancer Bone cancer Mother No problems noted. Other No pertinent family history Denies family history of Colon cancer Ovarian cancer Prostate cancer Crohn's disease IBD (inflammatory bowel disease) Social History Smoking Status: Current some day smoker packs per day: 2; Years Smoked: 25; Second Hand Exposure: Yes; Do You Dip or Chew Tobacco: No; Tobacco Cessation Education Requested by Patient: No Hx Alcohol Use: Yes Alcohol type: beer Hx Substance Use: Yes Last Used Substance: Days (ago) Last Used Substance Other:: 10/28/20 Substance Use Type Other:: when zofran doesn't work Preferred Language: [place] Communication Ability: Effective Visual Impairment: Limited Hearing Ability: Normal Ultrasonic Hand Solderer Required: No Beliefs That Will Affect Care: None marital status: Current Living Situation: Spouse current occupational status: employed 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 [employer] Other Information That Helps Us Care for You: No Feels Safe at Home: Yes Safety Concerns: Feels Safe At This Time Childhood Exposure to Second-Hand Smoke: Yes caffeine: Yes (1 cup of coffee) during the past year weight has: other Dental Care, Regularly: No Physical Activity Frequency: Daily Physical Activity Frequency Comment: walking Seatbelt Use: always Sunscreen Use: Yes Assistive Devices: Denture - Upper and Denture - Lower Allergies Allergies Allergy/AdvReac Type Severity Reaction Status Date / Time napoles Allergy Intermediate Hives Verified 11/02/20 10:35 doxycycline Allergy Intermediate hives and Verified 11/02/20 10:35 vomitting Iodinated Contrast Media Allergy Intermediate GIANT Verified 11/02/20 10:35 HIVES , VOMITTING, BODY FEELS HOT loperamide Allergy Intermediate Hives and Verified 11/02/20 10:35 vomiting meperidine Allergy Intermediate HIVES, Verified 11/02/20 10:35 VOMITING prochlorperazine Allergy Intermediate N/V, Verified 11/02/20 10:35 ITCHINESS strawberry Allergy Intermediate HIVES Verified 11/02/20 10:35 tomato Allergy Intermediate HIVES Verified 11/02/20 10:35 iodine Allergy . Verified 11/02/20 10:35 latex AdvReac Mild RASH Verified 11/02/20 10:35 Home Meds Home Medications Medication Instructions Recorded Confirmed multivitamin 1 tab PO QAM 12/16/18 11/02/20 promethazine 25 mg PO Q6H PRN 07/17/19 11/02/20 clonidine 1 patch TOPICAL WK 11/02/20 11/02/20 Previous Rx's Medication Instructions Recorded atorvastatin 80 mg tablet 80 mg PO HS #90 tab 04/04/20 capsaicin 1 applic TOPICAL QID #25 g 04/09/20 clonidine HCl 0.1 mg PO Q6 PRN #10 tab 04/14/20 losartan 100 mg tablet 100 mg PO QAM #90 tab 06/13/20 amitriptyline 25 mg tablet 25 mg PO HS #90 tab 08/08/20 amlodipine 5 mg tablet 5 mg PO DAILY #90 tab 08/08/20 cholecalciferol (vitamin D3) 50 50 mcg PO DAILY #30 tab 08/29/20 mcg (2,000 unit) tablet metoprolol succinate 100 mg 100 mg PO BID #90 tab 10/09/20 tablet,extended release 24 hr clopidogrel 75 mg tablet 75 mg PO QAM #90 tab 10/16/20 venlafaxine 75 mg capsule,extended 75 mg PO DAILY #30 cap 10/16/20 release 24 hr levetiracetam [Keppra] 1,000 mg PO BID #60 tab 10/31/20 ondansetron 4 mg PO Q6H PRN #20 tab 10/31/20 Results & Data (ED) Vital Signs Vital Signs - 24 hr 11/02/20 09:17 11/02/20 09:32 11/02/20 09:34 Temperature 36.5 C Temperature Source Oral Pulse Rate 109 H 89 Pulse Rate [Apical] 104 H Pulse Rate from SpO2 Sensor 87 Pulse Rhythm Regular Pulse Rhythm [Apical] Regular Pulse Strength Normal Pulse Strength [Apical] Normal Respiratory Rate 20 14 20 Respiratory Effort / Characteristics Non-Labored Spontaneous Non-Labored Spontaneous Respiratory Depth Normal Normal Respiratory Pattern Regular Regular Blood Pressure 200/160 H 226/144 H Blood Pressure [Left Arm] 226/144 H Blood Pressure Mean 173 171 Blood Pressure Mean [Left Arm] 171 Blood Pressure Position Lying Blood Pressure Position [Left Arm] Sitting Pulse Oximetry 96 96 97 Oxygen Delivery Method Room Air Room Air Sepsis Recent Fever Within 48 Hours No Sepsis New/Unexplained Change in Mental Status No Sepsis Action Taken by Nursing No Action Required 11/02/20 09:56 11/02/20 10:00 11/02/20 10:15 Temperature Temperature Source Pulse Rate 82 89 99 H Pulse Rate [Apical] 88 Pulse Rate from SpO2 Sensor 86 86 94 H Pulse Rhythm Pulse Rhythm [Apical] Regular Pulse Strength Pulse Strength [Apical] Normal Respiratory Rate 12 7 L 7 L Respiratory Effort / Characteristics Non-Labored Spontaneous Respiratory Depth Normal Respiratory Pattern Regular Blood Pressure 231/149 H Blood Pressure [Left Arm] 231/149 H Blood Pressure Mean 176 Blood Pressure Mean [Left Arm] 176 Blood Pressure Position Blood Pressure Position [Left Arm] Sitting Pulse Oximetry 96 95 97 Oxygen Delivery Method Room Air Sepsis Recent Fever Within 48 Hours Sepsis New/Unexplained Change in Mental Status Sepsis Action Taken by Nursing 11/02/20 10:30 11/02/20 10:45 11/02/20 11:00 Temperature Temperature Source Pulse Rate 97 H 101 H 95 H Pulse Rate [Apical] Pulse Rate from SpO2 Sensor 96 H 101 H 96 H Pulse Rhythm Pulse Rhythm [Apical] Pulse Strength Pulse Strength [Apical] Respiratory Rate 17 17 15 Respiratory Effort / Characteristics Respiratory Depth Respiratory Pattern Blood Pressure 251/148 H 234/164 H Blood Pressure [Left Arm] Blood Pressure Mean 182 187 Blood Pressure Mean [Left Arm] Blood Pressure Position Blood Pressure Position [Left Arm] Pulse Oximetry 96 99 95 Oxygen Delivery Method Sepsis Recent Fever Within 48 Hours Sepsis New/Unexplained Change in Mental Status Sepsis Action Taken by Nursing 11/02/20 11:29 11/02/20 11:30 11/02/20 11:32 Temperature Temperature Source Pulse Rate 93 H 97 H 89 Pulse Rate [Apical] Pulse Rate from SpO2 Sensor 90 98 H 89 Pulse Rhythm Pulse Rhythm [Apical] Pulse Strength Pulse Strength [Apical] Respiratory Rate 14 10 L 16 Respiratory Effort / Characteristics Respiratory Depth Respiratory Pattern Blood Pressure 218/132 H 219/132 H Blood Pressure [Left Arm] Blood Pressure Mean 160 161 Blood Pressure Mean [Left Arm] Blood Pressure Position Blood Pressure Position [Left Arm] Pulse Oximetry 97 97 98 Oxygen Delivery Method Sepsis Recent Fever Within 48 Hours Sepsis New/Unexplained Change in Mental Status Sepsis Action Taken by Nursing 11/02/20 11:45 11/02/20 12:00 11/02/20 12:30 Temperature Temperature Source Pulse Rate 96 H 102 H 111 H Pulse Rate [Apical] Pulse Rate from SpO2 Sensor 99 H 102 H 111 H Pulse Rhythm Pulse Rhythm [Apical] Pulse Strength Pulse Strength [Apical] Respiratory Rate 17 13 17 Respiratory Effort / Characteristics Respiratory Depth Respiratory Pattern Blood Pressure 196/127 H 185/123 H Blood Pressure [Left Arm] Blood Pressure Mean 150 143 Blood Pressure Mean [Left Arm] Blood Pressure Position Blood Pressure Position [Left Arm] Pulse Oximetry 98 99 96 Oxygen Delivery Method Sepsis Recent Fever Within 48 Hours Sepsis New/Unexplained Change in Mental Status Sepsis Action Taken by Custodial Medications Current Medication List: was personally reviewed by me Laboratory Data Attestation: I reviewed the patient's lab results. Result diagrams: 11/02/20 09:38 11/02/20 09:38 Lab Results 11/02/20 11/02/20 11/02/20 Range/Units 09:38 09:38 09:38 WBC 13.65 H (4.8-10.8) K/uL RBC 4.94 (4.2-5.4) M/uL Hgb 15.4 (12.0-16.0) g/dL Hct 44.9 (37-47) % MCV 90.9 (80-100) fL MCH 31.2 (25-34) pg MCHC 34.3 (32-36) g/dL RDW Std Deviation 44.4 (36.4-46.3) fL RDW Coeff of Jose Luis 13.5 (11.5-14.5) % Plt Count 397 (130-400) K/uL MPV 10.3 (7.4-10.4) fL Immature Gran % (Auto) 0.4 % Neut % (Auto) 83.7 % Lymph % (Auto) 12.5 % Island % (Auto) 2.6 % Eos % (Auto) 0.4 % Baso % (Auto) 0.4 % Neut # (Auto) 11.42 H (1.4-6.5) K/uL Lymph # (Auto) 1.71 (1.2-3.4) K/uL Island # (Auto) 0.35 (0.11-0.59) K/uL Eos # (Auto) 0.06 (0-0.5) K/uL Baso # (Auto) 0.06 (0-0.2) K/uL Immature Gran # (Auto) 0.05 H (0.00-0.02) K/uL PT 9.3 (9.0-12.0) Seconds INR 0.9 (0.9-1.1) APTT 24.7 (21.0-31.0) Seconds PTT Ratio 0.9 Sodium 139 (136-145) mmol/L Potassium 3.8 (3.5-5.1) mmol/L Chloride 107 (98-107) mmol/L Carbon Dioxide 26 (21-32) mmol/L Anion Gap 6.0 (3-11) BUN 19 H (7-18) mg/dl Creatinine 0.96 (0.6-1.2) mg/dl Est Cr Clr Drug Dosing Not Reportable Est GFR ( Amer) 77.7 Est GFR (Non-Af Amer) 67.0 BUN/Creatinine Ratio 19.4 (10-20) Glucose 162 H (70-99) mg/dl Calcium 9.8 (8.5-10.1) mg/dl Magnesium 1.9 (1.8-2.4) mg/dl Total Bilirubin 0.3 (0.2-1) mg/dl AST 21 (15-37) U/L ALT 35 (12-78) U/L Alkaline Phosphatase 123 H (45-117) U/L Troponin I < 0.015 (0-0.045) ng/ml Total Protein 8.6 H (6.4-8.2) gm/dl Albumin 4.2 (3.4-5.0) gm/dl Globulin 4.4 H (2.5-4.0) gm/dl Albumin/Globulin Ratio 1.0 (0.9-2) COVID-19 Eval Order SARS-CoV-2 (PCR) (Negative) Influenza Type A (PCR) (Neg) Influenza Type B (PCR) (Neg) RSV (RT-PCR) (Neg) 11/02/20 11/02/20 Range/Units 11:45 11:45 WBC (4.8-10.8) K/uL RBC (4.2-5.4) M/uL Hgb (12.0-16.0) g/dL Hct (37-47) % MCV (80-100) fL MCH (25-34) pg MCHC (32-36) g/dL RDW Std Deviation (36.4-46.3) fL RDW Coeff of Jose Luis (11.5-14.5) % Plt Count (130-400) K/uL MPV (7.4-10.4) fL Immature Gran % (Auto) % Neut % (Auto) % Lymph % (Auto) % Island % (Auto) % Eos % (Auto) % Baso % (Auto) % Neut # (Auto) (1.4-6.5) K/uL Lymph # (Auto) (1.2-3.4) K/uL Island # (Auto) (0.11-0.59) K/uL Eos # (Auto) (0-0.5) K/uL Baso # (Auto) (0-0.2) K/uL Immature Gran # (Auto) (0.00-0.02) K/uL PT (9.0-12.0) Seconds INR (0.9-1.1) APTT (21.0-31.0) Seconds PTT Ratio Sodium (136-145) mmol/L Potassium (3.5-5.1) mmol/L Chloride (98-107) mmol/L Carbon Dioxide (21-32) mmol/L Anion Gap (3-11) BUN (7-18) mg/dl Creatinine (0.6-1.2) mg/dl Est Cr Clr Drug Dosing Est GFR ( Amer) Est GFR (Non-Af Amer) BUN/Creatinine Ratio (10-20) Glucose (70-99) mg/dl Calcium (8.5-10.1) mg/dl Magnesium (1.8-2.4) mg/dl Total Bilirubin (0.2-1) mg/dl AST (15-37) U/L ALT (12-78) U/L Alkaline Phosphatase (45-117) U/L Troponin I (0-0.045) ng/ml Total Protein (6.4-8.2) gm/dl Albumin (3.4-5.0) gm/dl Globulin (2.5-4.0) gm/dl Albumin/Globulin Ratio (0.9-2) COVID-19 Eval Order CovFluRsv at [facility] SARS-CoV-2 (PCR) NEGATIVE (Negative) Influenza Type A (PCR) Negative (Neg) Influenza Type B (PCR) Negative (Neg) RSV (RT-PCR) Negative (Neg) Administered Medications Lactated Ringer's (Lr) 1,000 mls @ 150 mls/hr IV .Q6H40M MIKE Stop: 11/03/20 05:04 Last Admin: 11/02/20 16:00 Dose: 150 mls/hr Documented by: [id number] Miscellaneous (Check Clonidine Patch Placement) 1 ea N/A QS MIKE Stop: 12/02/20 15:59 Last Admin: 11/02/20 16:02 Dose: Not Given Documented by: [id number] Nitroglycerin (Nitroglycerin 2% Ointment 30gm Tube) 1 inch EXT Q6H MIKE Stop: 12/02/20 14:13 Last Admin: 11/02/20 15:59 Dose: Not Given Documented by: [id number] Discontinued Medications Capsaicin (Capsaicin Cr 0.075% 60 Gm Tube) 1 appln EXT NOW STA Stop: 11/02/20 11:33 Last Admin: 11/02/20 11:51 Dose: 180 appln Documented by: [id number] Hydralazine HCl (Hydralazine Hcl 20 Mg/Ml Vial) 10 mg IV NOW STA Stop: 11/02/20 12:06 Last Admin: 11/02/20 12:25 Dose: 10 mg Documented by: [id number] Nicardipine HCl 25 mg/ Sodium (Chloride) 250 mls @ 50 mls/hr IV .Q5H PRN; Protocol PRN Reason: SBP above 185 or DBP above 110 Stop: 12/02/20 10:38 Last Titration: 11/02/20 14:17 Dose: 0 mg/hr, 0 mls/hr Documented by: [id number] Admin: 11/02/20 11:38 Dose: 5 mg/hr, 50 mls/hr Documented by: [id number] Cosigned by: [id number] Levetiracetam 1,000 mg/ Sodium (Chloride) 110 mls @ 440 mls/hr IV NOW STA Stop: 11/02/20 10:53 Last Infusion: 11/02/20 14:22 Dose: 0 mls/hr Documented by: [id number] Admin: 11/02/20 11:38 Dose: 440 mls/hr Documented by: [id number] Acetaminophen (Ofirmev) 1,000 mg in 100 mls @ 400 mls/hr IV NOW STA Stop: 11/02/20 10:53 Last Infusion: 11/02/20 11:44 Dose: 0 mls/hr Documented by: [id number] Admin: 11/02/20 11:12 Dose: 400 mls/hr Documented by: [id number] Lorazepam (Ativan) 0.25 mg in 0.5 mls @ 0.5 mls/min IV NOW STA Stop: 11/02/20 12:33 Last Admin: 11/02/20 13:36 Dose: 0.5 mls/min Documented by: [id number] Pantoprazole Sodium 40 mg/ (Syringe) 10 mls @ 5 mls/min IV 1300 ONE Stop: 11/02/20 13:01 Last Admin: 11/02/20 13:33 Dose: 5 mls/min Documented by: [id number] Labetalol HCl (Labetalol Hcl Iv 5 Mg/Ml 20ml) 10 mg IV NOW STA Stop: 11/02/20 11:36 Last Admin: 11/02/20 11:50 Dose: 10 mg Documented by: [id number] Cosigned by: [id number] Labetalol HCl (Labetalol Hcl Iv 5 Mg/Ml 20ml) 10 mg IV NOW STA Stop: 11/02/20 12:11 Last Admin: 11/02/20 13:37 Dose: 10 mg Documented by: [id number] Cosigned by: [id number] Nitroglycerin (Nitroglycerin 2% Ointment 30gm Tube) 1 inch EXT NOW STA Stop: 11/02/20 12:38 Last Admin: 11/02/20 13:33 Dose: 1 inch Documented by: [id number] Ondansetron HCl (Ondansetron Inj 2 Mg/Ml 2 Ml Vial) Confirm Administered Dose 4 mg .ROUTE .STK-MED ONE Stop: 11/02/20 09:49 Last Admin: 11/02/20 09:52 Dose: 4 mg Documented by: [id number] Ondansetron HCl (Ondansetron Inj 2 Mg/Ml 2 Ml Vial) 4 mg IV NOW STA Stop: 11/02/20 10:42 Last Admin: 11/02/20 13:11 Dose: Not Given Documented by: [id number] Ondansetron HCl (Ondansetron Inj 2 Mg/Ml 2 Ml Vial) 4 mg IV NOW STA Stop: 11/02/20 12:05 Last Admin: 11/02/20 12:32 Dose: 4 mg Documented by: [id number] Imaging Data Attestation: I personally reviewed and interpreted this imaging study as follows: Radiologist's Impression: Head CT 11/02/20 10:39 CT head/brain wo con CLINICAL HISTORY: 55 years-old Female with Stroke Like Symptoms. Acute strokelike symptoms TECHNIQUE: Multiple axial CT images of the head were obtained without contrast. A dose lowering technique was utilized adhering to the principles of ALARA. CT DOSE: 729.78 mGycm COMPARISON: Head CT 10/29/2020 FINDINGS: Mildly motion degraded exam. No acute intracranial hemorrhage, midline shift, intracranial mass, hydrocephalus, territorial ischemia or abnormal extra-axial collection. Unchanged white matter hypodensities which are nonspecific and suggestive of chronic microvascular ischemic disease versus demyelinating process. The calvarium is intact. Prior bilateral lens repair. Rightward bowing of the nasal septum. The paranasal sinuses, mastoid air cells, and middle ear cavities are clear. IMPRESSION: Chronic findings as above without acute intracranial abnormality. ACT 112: Negative or not required by law. The above report was generated using voice recognition software. It may contain grammatical, syntax or spelling errors. Electronically signed by: Anam Jimenez M.D. 11/02/2020 11:28 AM Chest X-Ray 11/02/20 11:31 XR chest 1V portable HISTORY: 55 years-old Female Pt c/o HTN acute hypertension COMPARISON: Chest radiograph 10/29/2020 TECHNIQUE: Portable AP view of the chest FINDINGS: Cardiomediastinal and hilar silhouettes are within normal limits. No pneumothorax, pleural effusion, airspace consolidation or overt pulmonary edema. Bones of the chest appear grossly intact. Healed chronic right posterolateral seventh rib fracture. Cervical spinal fusion hardware. IMPRESSION: No acute process. ACT 112: Negative or not required by law. The above report was generated using voice recognition software. It may contain grammatical, syntax or spelling errors. Electronically signed by: Anam Jimenez M.D. 11/02/2020 11:50 AM Discharge Plan Visit Data Chief Complaint: Hypertension Stated Complaint: HIGH BLOOD PRESSURE ED Provider: Igor Elizabeth Discharge Problem: Hypertensive urgency, Nausea & vomiting Patient Disposition: Admitted As Inpatient Discharge Instructions Interventions: ED Discharge Assessment Last Done: 11/02/20 13:41 Discharge Problem: Nausea & vomiting Qualifiers: Vomiting type: unspecified Vomiting Intractability: unspecified Qualified Code(s): R11.2 - Nausea with vomiting, unspecified
[2020-11-02] MEDS: METOPROLOL SUCC 50MG EXT REL TAB PO SCH (20:35)
[2020-11-02] MEDS: levETIRAcetam 500 MG TAB PO SCH (20:35)
[2020-11-02] MEDS ORDERED: AMITRIPTYLINE HCL 25 MG TAB PO SCH (21:00)
[2020-11-02] MEDS ORDERED: ATORVASTATIN 40 MG TAB PO SCH (21:00)
[2020-11-02] MEDS ORDERED: ACETAMINOPHEN 325 MG TAB PO PRN (21:04)
[2020-11-03] MEDS: CHECK CLONIDINE PATCH PLACEMENT SCH (07:28)
[2020-11-03] MEDS: levETIRAcetam 500 MG TAB PO SCH (08:11)
[2020-11-03] MEDS: METOPROLOL SUCC 50MG EXT REL TAB PO SCH (08:12)
[2020-11-03] MEDS ORDERED: CHOLECALCIFEROL 1,000 UNITS 25 MCG TAB PO SCH (09:00)
[2020-11-03] MEDS ORDERED: CLOPIDOGREL BISULFATE 75 MG TAB PO SCH (09:00)
[2020-11-03] MEDS ORDERED: LOSARTAN POTASSIUM 50 MG TAB PO SCH (09:00)
[2020-11-03] MEDS ORDERED: amLODIPine BESYLATE 5 MG TAB PO SCH (09:00)
[2020-11-03] MEDS ORDERED: MULTIVITAMIN TAB PO SCH (09:00)
[2020-11-03] MEDS ORDERED: VENLAFAXINE HCL XR 75 MG CAPXR PO SCH (09:00)
[2020-11-03 10:37] LABS: BUN Creatinine Ratio 12.9 (10-20); Creatinine Clr Calc Pharmacy 79.8 ml/min; Est GFR (Non-African American) 77.7; Potassium 3.4 mmol/L (3.5-5.1)
--- NOTE | 2020-11-03 10:39 | Hospitalist Progress Note ---
Date of Service November 03, 2020 Assessment & Plan (1) Hypertensive urgency: Suspected renovascular hypertension. Evidence of left renal artery stenosis seen on recent renal ultrasound. She will follow-up with outpatient vascular surgery for further evaluation and possibly intervention. Blood pressure now controlled. We will continue current medication regimen (2) Cannabinoid hyperemesis syndrome: Highly encouraged to stop cannabis and if hyperemesis continues will get urine tox and prove hyperemesis not due to this otherwise all providers will continue to diagnose cannabinoid hyperemesis. Resolved with capsaicin cream Apparently no improvement after 3 months of cessation although unclear when this was since every urine toxicology screen has been positive for THC since 2017. Continue amitriptyline as per prior GI note -> consider up titrating to 75mg HS (3) Nausea & vomiting: concerned about arsenic poisoning which interestingly heavy metal labs were performed in 2017 and negative. Ondansetron 4mg IV Q6H PRN Resolved (4) CAD (coronary artery disease): Mild-moderate non-obstructive on prior cardiac cath. Continue clopidogrel 75mg PO daily, metoprolol succinate 100mg PO BID, losartan 100mg PO QAM, atorvastatin 80mg PO HS (5) Marijuana dependence: Recommended cessation (6) Seizure: Recurrent seizure-like episodes in setting of hypertensive urgency Continue Keppra 1g BID Disposition: Home today, November 03 Admission and Anticipated Discharge Date Admission Date: November 02, 2020 Subjective Alert and oriented. Nausea and vomiting has subsided. Blood pressure is acceptable. Renal artery ultrasound on October 30 reveals evidence of left renal artery stenosis. This will need further outpatient evaluation. It appears she may have renovascular hypertension. However she is currently stable. She will be discharged home today Review of Systems Review of Systems: All systems reviewed & are unremarkable except as noted in HPI & below Physical Exam Physical Exam: General-alert and oriented x3, no fevers, no chills HEENT-head atraumatic and normocephalic, edentulous, pupils equal and reactive to light, extraocular muscles intact Neck-no lymphadenopathy or thyromegaly, trachea midline Chest-clear to auscultation percussion. No rales wheezing or rhonchi Cardiac-regular rate and rhythm, normal S1 and S2, no murmurs Abdomen-normal bowel sounds, nontender, no hepatosplenomegaly Extremities-no cyanosis, clubbing, or edema Neuro-cranial nerves II through XII intact, motor and sensory function within normal limits, strength symmetrical , no focal deficits Psych-normal affect, normal mood Results & Data Results & Data ([facility]) Vital Signs (Past 12 Hours) Vital Signs Temp Pulse Pulse Resp BP Pulse Ox 11/03/20 07:37 78 11/03/20 07:06 36.4 C L 78 18 126/85 96 11/03/20 05:02 36.3 C L 71 18 124/82 95 11/02/20 23:06 36.7 C 80 18 104/71 95 Laboratory Results 11/03/20 09:52 PG Care Time/CCT Total # of Minutes Spent Total Time Spent with Patient: Total time spent is greater than 50% in coordination of care (as documented) at patient's floor/unit and/or counseling patient: Coding Level of Care Code 38444 Subseq Hosp Care Lvl 3 Diagnoses Hypertensive urgency I16.0 Cannabinoid hyperemesis syndrome F12.988 Nausea & vomiting R11.2 Vomiting Intractability: unspecified Vomiting type: unspecified CAD (coronary artery disease) I25.10 Coronary Disease-Associated Artery/Lesion type: [place] artery [place] vs. transplanted heart: [place] heart Associated angina: without angina Marijuana dependence F12.20 Seizure R56.9 (1) Nausea & vomiting Vomiting Intractability: unspecified Vomiting type: unspecified Qualified Code(s): R11.2 - Nausea with vomiting, unspecified (2) CAD (coronary artery disease) Coronary Disease-Associated Artery/Lesion type: [place] artery [place] vs. transplanted heart: [place] heart Associated angina: without angina Qualified Code(s): I25.10 - Atherosclerotic heart disease of [place] coronary artery without angina pectoris
[2020-11-03 10:47] LABS: Basophils # (auto) 0.05 K/uL (0-0.2); Basophils % (auto) 0.6 %; Eosinophils % (auto) 2.3 %; Hematocrit (blood only) 37.5 % (37-47); Hemoglobin 12.5 g/dL (12.0-16.0); Immature Granulocytes # (auto) 0.02 K/uL (0.00-0.02); Immature Granulocytes % (auto) 0.2 %; Lymphocytes # (auto) 3.24 K/uL (1.2-3.4); Lymphocytes % (auto) 36.7 %; Mean Corpuscular Hemoglobin 30.6 pg (25-34); Mean Corpuscular Hgb Conc 33.3 g/dL (32-36); Mean Corpuscular Volume 91.9 fL (80-100); Mean Platelet Volume 9.4 fL (7.4-10.4); Monocytes # (auto) 0.83 K/uL (0.11-0.59); Monocytes % (auto) 9.4 %; Neutrophils # (auto) 4.49 K/uL (1.4-6.5); Neutrophils % (auto) 50.8 %; Platelet Count 301 K/uL (130-400); RDW Coefficient of Variation 13.7 % (11.5-14.5); RDW Standard Deviation 45.3 fL (36.4-46.3); Red Blood Count 4.08 M/uL (4.2-5.4); White Blood Count 8.83 K/uL (4.8-10.8)
[2020-11-03 12:43] VITALS: PULSE 73; TEMP 99; O2SAT 98
[2020-11-03 12:50] VITALS: BP 110/75
[2020-11-09] MEDS ORDERED: cloNIDine HCL 0.1 MG/24 HR TRANSDERM SYS TD SCH (09:00)
--- NOTE | 2020-11-30 13:49 | Discharge Summary ---
Date of Service November 30, 2020 Admission HPI Per Admitting Provider Cyndie Velasquez is a 55-year-old female well known to this service who presents to the ER with recurrent hypertensive urgency related to sudden onset abdominal pain and vomiting. She has had multiple similar episodes which have been suspected to be secondary to cannabis hyperemesis syndrome. The patient but especially her have much issue with this diagnosis as they feel her hyperemesis is worse when she stops marijuana. I explained the objective evidence if this is getting worse is that her THC content in her urine has been increasing and would highly advise a trial again without marijuana to prove this is not the cause otherwise. We have no urine toxicology screens that are negative for marijuana. On this occasion she was discharged just on October 31 (2 days ago), she was doing well later that night but around 4am in the morning she woke up with abdominal pain and severe nausea and vomiting. This has been persistent since yesterday and similar to her previous episodes. She is concerned there is some blood in her vomit. Per prior GI note. Gastric emptying study normal, prior EGD 2016 unremarkable. Principal Diagnosis Hypertensive urgency, cannabinoid hyperemesis syndrome Discharge Data Allergies Allergy/AdvReac Type Severity Reaction Status Date / Time napoles Allergy Intermediate Hives Verified 11/17/20 10:10 doxycycline Allergy Intermediate hives and Verified 11/17/20 10:10 vomitting Iodinated Contrast Media Allergy Intermediate GIANT Verified 11/17/20 10:10 HIVES , VOMITTING, BODY FEELS HOT loperamide Allergy Intermediate Hives and Verified 11/17/20 10:10 vomiting meperidine Allergy Intermediate HIVES, Verified 11/17/20 10:10 VOMITING prochlorperazine Allergy Intermediate N/V, Verified 11/17/20 10:10 ITCHINESS strawberry Allergy Intermediate HIVES Verified 11/17/20 10:10 tomato Allergy Intermediate HIVES Verified 11/17/20 10:10 iodine Allergy . Verified 11/17/20 10:10 latex AdvReac Mild RASH Verified 11/17/20 10:10 Consultations 11/02/20 11:33 ED Decision to Admit Stat Ordered Studies 11/02/20 10:39 CT head/brain wo con Stat Hospital Course (1) Hypertensive urgency: Suspected renovascular hypertension. Evidence of left renal artery stenosis seen on recent renal ultrasound. She will follow-up with outpatient vascular surgery for further evaluation and possibly intervention. Blood pressure now controlled. We will continue current medication regimen (2) Cannabinoid hyperemesis syndrome: Highly encouraged to stop cannabis and if hyperemesis continues will get urine tox and prove hyperemesis not due to this otherwise all providers will continue to diagnose cannabinoid hyperemesis. Resolved with capsaicin cream Apparently no improvement after 3 months of cessation although unclear when this was since every urine toxicology screen has been positive for THC since 2017. Continue amitriptyline as per prior GI note -> consider up titrating to 75mg HS (3) Nausea & vomiting: concerned about arsenic poisoning which interestingly heavy metal labs were performed in 2017 and negative. Ondansetron 4mg IV Q6H PRN Resolved (4) CAD (coronary artery disease): Mild-moderate non-obstructive on prior cardiac cath. Continue clopidogrel 75mg PO daily, metoprolol succinate 100mg PO BID, losartan 100mg PO QAM, atorvastatin 80mg PO HS (5) Marijuana dependence: Recommended cessation (6) Seizure: Recurrent seizure-like episodes in setting of hypertensive urgency Continue Keppra 1g BID Disposition: Home today, November 03 Total Time Total Time Spent Total Time Spent (In Minutes): 35 minutes Total Time Includes: Examination of the Patient, Discharge Planning and Medication Reconciliation Discharge Plan Discharge Items Patient Disposition: Home - Self-Care Reason For Visit: HYPERTENSIVE URGENCY Discharge Diagnosis: Hypertensive urgency, suspected renovascular hypertension, cannabis hyperemesis Non-emergency contact: Primary Care Provider Call non-emergency contact if: you have any medication questions and your symptoms worsen Follow-up/Referrals: Teena Killian DO [Primary Care Provider] - 11/07/20 3:20 pm ([facility]) Diet: Heart Healthy Addtl Attending Provider Instructions: Follow-up with vascular surgery as planned Pending Studies at Discharge: No Stand-Alone Forms: My [employer], Smoking Cessation Medications and DC Order Prescriptions: Continued atorvastatin 80 mg tablet 80 mg PO HS Qty: 90 RF: 3 losartan [Cozaar] 100 mg tablet 100 mg PO QAM Qty: 90 RF: 1 amlodipine 5 mg tablet 5 mg PO DAILY Qty: 90 RF: 2 amitriptyline 25 mg tablet 25 mg PO HS Qty: 90 RF: 2 metoprolol succinate [Toprol XL] 100 mg tablet extended release 24 hr 100 mg PO BID Qty: 90 RF: 2 venlafaxine [Effexor XR] 75 mg capsule,extended release 24hr 75 mg PO DAILY Qty: 30 RF: 2 clopidogrel [Plavix] 75 mg tablet 75 mg PO QAM Qty: 90 RF: 1 cholecalciferol (vitamin D3) 50 mcg (2,000 unit) tablet 50 mcg PO DAILY Qty: 30 RF: 3 multivitamin Tablet 1 tab PO QAM RF: 0 promethazine 25 mg tablet 25 mg PO Q6H PRN (Reason: Nausea And Vomiting) RF: 0 capsaicin 0.025 % cream 1 applic topical QID Qty: 25 RF: 0 clonidine HCl 0.1 mg tablet 0.1 mg PO Q6 PRN (Reason: Systolic BP>180) Qty: 10 RF: 0 ondansetron 4 mg tablet,disintegrating 4 mg PO Q6H PRN (Reason: Nausea And Vomiting) Qty: 20 RF: 0 levetiracetam [Keppra] 1,000 mg tablet 1,000 mg PO BID Qty: 60 RF: 5 clonidine 0.1 mg/24 hr patch weekly 1 patch topical WK RF: 0 Discharge Orders: Discharge Order (Routine); Ordered 11/03/20 Ordered By: Marco Spann Admission Data Admit Date/Time: 11/02/20 12:46 Attending Provider: Marco Spann Admit Provider: Franck Pereira Primary Care Provider: Teena Killian Other Interventions: Discharge Summary Assessment (RN) Last Done: 11/03/20 12:49 Coding Level of Care Code D/C Day Management >30 mins Diagnoses Hypertensive urgency I16.0 Cannabinoid hyperemesis syndrome F12.988 Nausea & vomiting R11.2 Vomiting Intractability: unspecified Vomiting type: unspecified CAD (coronary artery disease) I25.10 Coronary Disease-Associated Artery/Lesion type: [place] artery [place] vs. transplanted heart: [place] heart Associated angina: without angina Marijuana dependence F12.20 Seizure R56.9
== END 2020-11-03 14:35 | disposition home or self-care (01) ==
LOC: ED 09:10 → 2S 09:10 → SUATTDRO 12:46 → 2S 13:41

== ENCOUNTER 2020-12-23 19:58 | Observation (INO) ==
[2020-12-23 20:15] LABS: Basophils # (auto) 0.05 K/uL (0-0.2); Basophils % (auto) 0.3 %; Eosinophils # (auto) 0.03 K/uL (0-0.5); Eosinophils % (auto) 0.2 %; Hematocrit (blood only) 42.9 % (37-47); Hemoglobin 14.9 g/dL (12.0-16.0); Immature Granulocytes # (auto) 0.07 K/uL (0.00-0.02); Immature Granulocytes % (auto) 0.4 %; Lymphocytes # (auto) 1.86 K/uL (1.2-3.4); Lymphocytes % (auto) 9.7 %; Mean Corpuscular Hemoglobin 31.8 pg (25-34); Mean Corpuscular Hgb Conc 34.7 g/dL (32-36); Mean Corpuscular Volume 91.5 fL (80-100); Mean Platelet Volume 10.6 fL (7.4-10.4); Monocytes # (auto) 0.72 K/uL (0.11-0.59); Monocytes % (auto) 3.7 %; Neutrophils # (auto) 16.53 K/uL (1.4-6.5); Neutrophils % (auto) 85.7 %; Platelet Count 330 K/uL (130-400); RDW Coefficient of Variation 13.6 % (11.5-14.5); RDW Standard Deviation 45.5 fL (36.4-46.3); Red Blood Count 4.69 M/uL (4.2-5.4); White Blood Count 19.26 K/uL (4.8-10.8)
[2020-12-23] MEDS ORDERED: METOCLOPRAMIDE HCL INJ 5 MG/ML 2 ML VIAL IV STA (20:25)
[2020-12-23] MEDS ORDERED: SODIUM CHLORIDE 0.9% 1000ML 1,000 ML IV STA (20:25)
[2020-12-23] MEDS ORDERED: SODIUM CHLORIDE 0.9% 1000ML 500 ML IV ONE (20:25)
[2020-12-23] MEDS ORDERED: diphenhydrAMINE 50 MG/ML VIAL ONE (20:28)
[2020-12-23 20:37] LABS: Albumin Level 4.4 gm/dl (3.4-5.0); BUN Creatinine Ratio 14.9 (10-20); Calcium 9.3 mg/dl (8.5-10.1); Creatinine Clr Calc Pharmacy 71.9 ml/min; Est GFR (African American) 87.5 ml/min; Est GFR (Non-African American) 75.5 ml/min; Potassium 3.3 mmol/L (3.5-5.1)
[2020-12-23 20:39] LABS: Bilirubin,Total 0.3 mg/dl (0.2-1); Globulin 4.2 gm/dl (2.5-4.0); Total Protein 8.6 gm/dl (6.4-8.2)
[2020-12-23 21:03] LABS: Appearance Urine Clear (Clear); Bacteria Urine Automated Negative (Negative); Bilirubin Urine Negative (Negative); Blood Urine 2+ (Negative); Cast Urine Automated 0 /lpf (0-5); Color Urine Yellow; Glucose Urine UA Negative (Negative); Ketones Urine Negative (Negative); Leukocyte Esterase Urine Negative (Negative); Nitrite Urine Negative (Negative); RBC Urine Automated >30 /hpf (0-4); Specific Gravity Urine 1.013 (1.000-1.030); Urobilinogen Urine Negative (Negative); pH Urine 7.5 (4.5-7.5)
[2020-12-23] MEDS ORDERED: POTASSIUM CHLORIDE / WTR 10 MEQ/100 ML PLCT IV ONE (21:03)
[2020-12-23] MEDS ORDERED: hydrALAZINE HCL 20 MG/ML VIAL IV STA (21:03)
[2020-12-23 21:06] LABS: Protein Urine 3+ (Negative)
--- NOTE | 2020-12-23 21:08 | Emergency Department Note ---
Impression & Plan Nausea, vomiting, and diarrhea, Malignant hypertension, Leukocytosis ED Provider Note INFORMANT: Patient ED PROVIDER(S): Prabhu Dumont MD CHIEF COMPLAINT: Illness PLAN: Disposition: Admitted Condition: Good Outpatient prescription management: none Referral: None MEDICAL DECISION MAKING: Patient presented to the emergency department complaining of illness. She had nausea, vomiting, and diarrhea. This started spontaneously today. She did receive her first Covid vaccine yesterday. The patient denies any sick contacts. No history of travel or recent antibiotic use. The patient was noted to be moderately hypertensive. She did take her morning medications. She has not taken her evening medications yet because of the vomiting. She had an IV established. She was hydrated with normal saline. The patient was given IV Reglan and Benadryl. Her potassium was found to be mildly low and she was given IV potassium. She was given a dose of IV hydralazine to help with her blood pressure. Patient was found to have a significant leukocytosis which I suspect is from the vomiting and diarrhea. She had a benign abdominal examination complained of no abdominal pain or chest pain. Unfortunately the patient became nauseated and had additional vomiting. She was given additional Zofran, her metoprolol, and clonidine. Her blood pressure was still markedly elevated. She was still nauseated. She was given IV Phenergan and additional IV hydralazine. To further evaluate the leukocytosis and persistent nausea CT imaging was performed. No acute process was noted. The patient had a normal ECG. Given her malignant hypertension and intractable nausea further management will be necessary in the hospital. consultation was made with Dr. Aron Drake of the [facility] service. Patient was evaluated in the ER for further management. Triage Nursing notes reviewed and agree them. Vital Signs: reviewed and remarkable for hypertension Differential diagnosis: Etiologies such as gastroenteritis, food borne illness, infections, appendicitis, diverticulitis, inflammatory bowel disease, GI bleed, biliary pathology, as well as others were entertained. Diagnostics interpreted by me: ECG: Rate: 95 Rhythm:Normal sinus [place]:Normal QRS:Normal ST segements:No elevation or depression Other:No PACs or PVCs Cardiac Monitoring: Cardiac monitoring ordered by me: The patient was placed on continuous cardiac monitoring and observed. It revealed a sinus tachycardic rhythm at 103 beats per minute without ectopy or evidence of dysrhythmia. Imaging studies: CT scan of the abdomen pelvis is negative for acute process. I refer you to the EMR for further details. HPI: The patient is a 55 year old female who presents to the Emergency Room with complaints of illness. This started today at 1330 hrs. and is persisting. The patient also notes the following associated symptoms, nausea, vomiting and diarrhea. The patient has found no relieving factors. Current pain is rated as 0/10. Patient states that she received her first Covid vaccine yesterday. This was from [facility]. pt denies LOC, headache, fevers, chills, diaphoresis, visual changes, neck pain, chest pain, breathing difficulties, abdominal pain, back pain, melena, hematochezia, urinary symptoms, numbness, weakness, lymphadenopathy, rash, or other complaints. ROS: See above HPI for pertinent positives & negatives. A total of 10 systems reviewed and were otherwise negative. PAST MEDICAL HISTORY:See Below , hypertension PAST SURGICAL HISTORY:See Below, FAMILY HISTORY:See Below SOCIAL HISTORY:See Below, former smoker HOME MEDICATIONS:See Below ALLERGIES:See Below VITALS:See Below PHYSICAL EXAMINATION: GENERAL: Awake, alert, uncomfortable-appearing, in no distress HENT: Normocephalic, atraumatic. Oropharynx unremarkable. EYES: Normal conjunctiva. Sclera non-icteric. NECK: Inspection normal. Non-tender. Supple. No nuchal rigidity. FROM. No masses. RESPIRATORY: Clear to auscultation. No wheezes. No rales. Normal respiratory effort. CARDIAC: Normal rate. Normal rhythm. No murmurs. No rubs. Extremities warm and well perfused. Pulses equal. No JVD. GI: Soft, non-distended. No tenderness to palpation. No rebound or guarding. No masses. RECTAL: Deferred. MUSCULOSKELETAL: Atraumatic. Chest examination reveals no tenderness. The back i s symmetrical on inspection without obvious abnormality. There is no CVA tenderness to palpation. No joint edema. LOWER EXTREMITIES: Calves are equal size bilaterally and non-tender. No edema. No discoloration. NEURO: Normal sensorium. No sensory or motor deficits noted. SKIN: No rash or jaundice noted. CRITICAL CARE: I have personally spent greater than 45 minutes of critical care time in the direct management of this patient. This includes bedside care, interpretation of diagnostic studies, and testing, discussion with consultants, patient, and other required patient management activities. These minutes are in excess of all separately billable procedures. Prabhu Dumont MD Past Med/Surg History Medical History Abnormal MRI of head Acute UTI Anxiety disorder CAD (coronary artery disease) Carotid stenosis Cervical disc disorder Congestive heart failure, acute Cyclic vomiting syndrome Diverticulitis Diverticulosis Gastritis Grief reaction Hematemesis Hematuria History of diverticulitis of colon History of gastritis History of hypotension Hot flashes due to menopause HTN (hypertension) Hx-TIA (transient ischemic attack) Hypercalcemia Hyperlipidemia Hypertension Hypertensive emergency Hypertensive urgency Hypertensive urgency Hypokalemia Marijuana dependence Multiple thyroid nodules New onset seizure NSTEMI (non-ST elevated myocardial infarction) PRES (posterior reversible encephalopathy syndrome) PRES (posterior reversible encephalopathy syndrome) Pulmonary emphysema Takotsubo cardiomyopathy Transient cerebrovascular ischemia Vitamin D deficiency Surgical History H/O cervical spine surgery History of cardiac cath History of hernia surgery History of hysterectomy History of ovarian cystectomy S/P cervical discectomy Family History Father Family history of stomach cancer Stroke Myocardial infarction Malignant neoplasm of esophagus Stomach cancer Uncle Family history of cancer Throat cancer Grandmother (Maternal) Breast cancer Bone cancer Mother No problems noted. 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 Beliefs That Will Affect Care: None marital status: Current Living Situation: Spouse current occupational status: employed current occupation: [employer] Feels Safe at Home: Yes Childhood Exposure to Second-Hand Smoke: Yes caffeine: Yes (1 cup of coffee) during the past year weight has: other Dental Care, Regularly: No Physical Activity Frequency: Daily Physical Activity Frequency Comment: walking Seatbelt Use: always Sunscreen Use: Yes Assistive Devices: None Allergies Allergies Allergy/AdvReac Type Severity Reaction Status Date / Time napoles Allergy Intermediate Hives Verified 12/23/20 20:58 doxycycline Allergy Intermediate hives and Verified 12/23/20 20:58 vomitting Iodinated Contrast Media Allergy Intermediate GIANT Verified 12/23/20 20:58 HIVES , VOMITTING, BODY FEELS HOT loperamide Allergy Intermediate Hives and Verified 12/23/20 20:58 vomiting meperidine Allergy Intermediate HIVES, Verified 12/23/20 20:58 VOMITING prochlorperazine Allergy Intermediate N/V, Verified 12/23/20 20:58 ITCHINESS strawberry Allergy Intermediate HIVES Verified 12/23/20 20:58 tomato Allergy Intermediate HIVES Verified 12/23/20 20:58 iodine Allergy . Verified 12/23/20 20:58 latex AdvReac Mild RASH Verified 12/23/20 20:58 Home Meds Home Medications Medication Instructions Recorded Confirmed multivitamin 1 tab PO QAM 12/16/18 12/23/20 promethazine 25 mg PO Q6H PRN 07/17/19 12/23/20 clonidine 1 patch TOPICAL WK 11/02/20 12/23/20 amlodipine 5 mg PO QAM 12/23/20 12/23/20 cholecalciferol (vitamin D3) 50 mcg PO PM 12/23/20 12/23/20 venlafaxine [Effexor XR] 75 mg PO QAM 12/23/20 12/23/20 Previous Rx's Medication Instructions Recorded atorvastatin 80 mg tablet 80 mg PO HS #90 tab 04/04/20 capsaicin 1 applic TOPICAL QID #25 g 04/09/20 clonidine HCl 0.1 mg PO Q6 PRN #10 tab 04/14/20 amitriptyline 25 mg tablet 25 mg PO HS #90 tab 08/08/20 metoprolol succinate 100 mg 100 mg PO BID #90 tab 10/09/20 tablet,extended release 24 hr clopidogrel 75 mg tablet 75 mg PO QAM #90 tab 10/16/20 levetiracetam [Keppra] 1,000 mg PO BID #60 tab 10/31/20 ondansetron 4 mg PO Q6H PRN #20 tab 10/31/20 losartan 100 mg tablet 100 mg PO QAM #90 tab 12/15/20 Results & Data (ED) Vital Signs Vital Signs - 24 hr 12/23/20 20:06 12/23/20 20:22 12/23/20 20:53 Temperature 36.8 C Temperature Source Oral Pulse Rate 94 H Pulse Rate [Bilateral Apical] 100 H 91 H Respiratory Rate 20 20 20 Blood Pressure 196/141 H Blood Pressure [Right Arm] 180/136 H 189/134 H Blood Pressure Mean 159 Blood Pressure Mean [Right Arm] 150 152 Pulse Oximetry 97 96 95 Oxygen Delivery Method Room Air Room Air Room Air Sepsis Recent Fever Within 48 Hours No Sepsis New/Unexplained Change in Mental Status N/A Sepsis Action Taken by Nursing No Action Required 12/23/20 21:13 12/23/20 21:25 12/23/20 21:45 Temperature Temperature Source Pulse Rate Pulse Rate [Bilateral Apical] 104 H 107 H 99 H Respiratory Rate 20 20 18 Blood Pressure Blood Pressure [Right Arm] 188/130 H 197/110 H 180/122 H Blood Pressure Mean Blood Pressure Mean [Right Arm] 149 139 141 Pulse Oximetry 97 98 97 Oxygen Delivery Method Room Air Room Air Room Air Sepsis Recent Fever Within 48 Hours Sepsis New/Unexplained Change in Mental Status Sepsis Action Taken by Nursing 12/23/20 22:32 12/23/20 23:27 12/24/20 00:03 Temperature Temperature Source Pulse Rate Pulse Rate [Bilateral Apical] 105 H 105 H 103 H Respiratory Rate 20 20 20 Blood Pressure Blood Pressure [Right Arm] 186/144 H 182/118 H 209/133 H Blood Pressure Mean Blood Pressure Mean [Right Arm] 158 139 158 Pulse Oximetry 97 96 96 Oxygen Delivery Method Room Air Room Air Sepsis Recent Fever Within 48 Hours Sepsis New/Unexplained Change in Mental Status Sepsis Action Taken by Nursing 12/24/20 00:39 Temperature Temperature Source Pulse Rate Pulse Rate [Bilateral Apical] 103 H Respiratory Rate 20 Blood Pressure Blood Pressure [Right Arm] 196/133 H Blood Pressure Mean Blood Pressure Mean [Right Arm] 154 Pulse Oximetry 96 Oxygen Delivery Method Room Air Sepsis Recent Fever Within 48 Hours Sepsis New/Unexplained Change in Mental Status Sepsis Action Taken by Nursing Laboratory Data Result diagrams: 12/23/20 19:36 12/23/20 19:36 Lab Results 12/23/20 12/23/20 12/23/20 Range/Units 19:36 19:36 21:45 WBC 19.26 H (4.8-10.8) K/uL RBC 4.69 (4.2-5.4) M/uL Hgb 14.9 (12.0-16.0) g/dL Hct 42.9 (37-47) % MCV 91.5 (80-100) fL MCH 31.8 (25-34) pg MCHC 34.7 (32-36) g/dL RDW Std Deviation 45.5 (36.4-46.3) fL RDW Coeff of Jose Luis 13.6 (11.5-14.5) % Plt Count 330 (130-400) K/uL MPV 10.6 H (7.4-10.4) fL Immature Gran % (Auto) 0.4 % Neut % (Auto) 85.7 % Lymph % (Auto) 9.7 % [place] % (Auto) 3.7 % Eos % (Auto) 0.2 % Baso % (Auto) 0.3 % Neut # (Auto) 16.53 H (1.4-6.5) K/uL Lymph # (Auto) 1.86 (1.2-3.4) K/uL [place] # (Auto) 0.72 H (0.11-0.59) K/uL Eos # (Auto) 0.03 (0-0.5) K/uL Baso # (Auto) 0.05 (0-0.2) K/uL Immature Gran # (Auto) 0.07 H (0.00-0.02) K/uL Sodium 141 (136-145) mmol/L Potassium 3.3 L (3.5-5.1) mmol/L Chloride 108 H (98-107) mmol/L Carbon Dioxide 23 (21-32) mmol/L Anion Gap 10.0 (3-11) BUN 13 (7-18) mg/dl Creatinine 0.87 (0.6-1.2) mg/dl Est Cr Clr Drug Dosing 71.9 ml/min Est GFR ( Amer) 87.5 ml/min Est GFR (Non-Af Amer) 75.5 ml/min BUN/Creatinine Ratio 14.9 (10-20) Glucose 164 H (70-99) mg/dl Calcium 9.3 (8.5-10.1) mg/dl Total Bilirubin 0.3 (0.2-1) mg/dl AST 20 (15-37) U/L ALT 34 (12-78) U/L Alkaline Phosphatase 103 (45-117) U/L Total Protein 8.6 H (6.4-8.2) gm/dl Albumin 4.4 (3.4-5.0) gm/dl Globulin 4.2 H (2.5-4.0) gm/dl Albumin/Globulin Ratio 1.0 (0.9-2) Lipase 92 (73-393) U/L Urine Color Urine Appearance (Clear) Urine pH (4.5-7.5) Ur Specific [place] (1.000-1.030) Urine Protein (Negative) Urine Glucose (UA) (Negative) Urine Ketones (Negative) Urine Blood (Negative) Urine Nitrite (Negative) Urine Bilirubin (Negative) Urine Urobilinogen (Negative) Ur Leukocyte Esterase (Negative) Urine WBC (Auto) (0-5) /hpf Urine RBC (Auto) (0-4) /hpf U Hyaline Cast (Auto) (0-5) /lpf U Epithel Cells (Auto) (0-5) /lpf Urine Bacteria (Auto) (Negative) COVID-19 Eval Order Covid19 at [facility] SARS-CoV-2 (PCR) (Negative) 12/23/20 12/23/20 Range/Units 21:45 Unknown WBC (4.8-10.8) K/uL RBC (4.2-5.4) M/uL Hgb (12.0-16.0) g/dL Hct (37-47) % MCV (80-100) fL MCH (25-34) pg MCHC (32-36) g/dL RDW Std Deviation (36.4-46.3) fL RDW Coeff of Jose Luis (11.5-14.5) % Plt Count (130-400) K/uL MPV (7.4-10.4) fL Immature Gran % (Auto) % Neut % (Auto) % Lymph % (Auto) % [place] % (Auto) % Eos % (Auto) % Baso % (Auto) % Neut # (Auto) (1.4-6.5) K/uL Lymph # (Auto) (1.2-3.4) K/uL [place] # (Auto) (0.11-0.59) K/uL Eos # (Auto) (0-0.5) K/uL Baso # (Auto) (0-0.2) K/uL Immature Gran # (Auto) (0.00-0.02) K/uL Sodium (136-145) mmol/L Potassium (3.5-5.1) mmol/L Chloride (98-107) mmol/L Carbon Dioxide (21-32) mmol/L Anion Gap (3-11) BUN (7-18) mg/dl Creatinine (0.6-1.2) mg/dl Est Cr Clr Drug Dosing ml/min Est GFR ( Amer) ml/min Est GFR (Non-Af Amer) ml/min BUN/Creatinine Ratio (10-20) Glucose (70-99) mg/dl Calcium (8.5-10.1) mg/dl Total Bilirubin (0.2-1) mg/dl AST (15-37) U/L ALT (12-78) U/L Alkaline Phosphatase (45-117) U/L Total Protein (6.4-8.2) gm/dl Albumin (3.4-5.0) gm/dl Globulin (2.5-4.0) gm/dl Albumin/Globulin Ratio (0.9-2) Lipase (73-393) U/L Urine Color Yellow Urine Appearance Clear (Clear) Urine pH 7.5 (4.5-7.5) Ur Specific [place] 1.013 (1.000-1.030) Urine Protein 3+ H (Negative) Urine Glucose (UA) Negative (Negative) Urine Ketones Negative (Negative) Urine Blood 2+ H (Negative) Urine Nitrite Negative (Negative) Urine Bilirubin Negative (Negative) Urine Urobilinogen Negative (Negative) Ur Leukocyte Esterase Negative (Negative) Urine WBC (Auto) 1-5 (0-5) /hpf Urine RBC (Auto) >30 H (0-4) /hpf U Hyaline Cast (Auto) 0 (0-5) /lpf U Epithel Cells (Auto) 10-20 H (0-5) /lpf Urine Bacteria (Auto) Negative (Negative) COVID-19 Eval Order SARS-CoV-2 (PCR) NEGATIVE (Negative) Administered Medications Sodium Chloride (Nss 1000ml) 1,000 mls @ 125 mls/hr IV .Q8H STA Stop: 12/24/20 04:24 Last Admin: 12/23/20 20:33 Dose: 125 mls/hr Documented by: [id number] Discontinued Medications Clonidine HCl (Clonidine Hcl 0.1 Mg Tab) 0.1 mg PO NOW ONE Stop: 12/23/20 22:01 Last Admin: 12/23/20 22:23 Dose: 0.1 mg Documented by: [id number] Diphenhydramine HCl (Diphenhydramine 50 Mg/Ml Vial) Confirm Administered Dose 50 mg .ROUTE .STK-MED ONE Stop: 12/23/20 20:29 Last Admin: 12/23/20 20:50 Dose: Not Given Documented by: [id number] Hydralazine HCl (Hydralazine Hcl 20 Mg/Ml Vial) 10 mg IV NOW STA Stop: 12/23/20 21:04 Last Admin: 12/23/20 21:08 Dose: 10 mg Documented by: [id number] Hydralazine HCl (Hydralazine Hcl 20 Mg/Ml Vial) 5 mg IV NOW ONE Stop: 12/24/20 00:22 Last Admin: 12/24/20 00:35 Dose: 5 mg Documented by: [id number] Sodium Chloride (Nss 1000ml) 500 mls @ 999 mls/hr IV .Q31M ONE Stop: 12/23/20 20:55 Last Infusion: 12/23/20 21:06 Dose: 0 mls/hr Documented by: [id number] Admin: 12/23/20 20:32 Dose: 999 mls/hr Documented by: [id number] Diphenhydramine HCl 12.5 mg/ (Syringe) 0.25 mls @ 1 mls/hr IV NOW STA Stop: 12/23/20 20:39 Last Admin: 12/23/20 20:33 Dose: 1 mls/hr Documented by: [id number] Potassium Chloride (K Herber / Wtr) 10 meq in 100 mls @ 100 mls/hr IV ONE ONE Stop: 12/23/20 22:02 Last Infusion: 12/23/20 22:32 Dose: 0 mls/hr Documented by: [id number] Admin: 12/23/20 21:08 Dose: 100 mls/hr Documented by: [id number] Promethazine HCl (Phenergan) 25 mg in 51 mls @ 204 mls/hr IV NOW STA Stop: 12/23/20 23:13 Last Infusion: 12/23/20 23:26 Dose: 0 mls/hr Documented by: [id number] Admin: 12/23/20 23:09 Dose: 204 mls/hr Documented by: [id number] Metoclopramide HCl (Metoclopramide Hcl Inj 5 Mg/Ml 2 Ml Vial) 10 mg IV NOW STA Stop: 12/23/20 20:26 Last Admin: 12/23/20 20:33 Dose: 10 mg Documented by: [id number] Metoprolol Succinate (Metoprolol Succ 50mg Ext Rel Tab) 100 mg PO NOW STA Stop: 12/23/20 22:01 Last Admin: 12/23/20 22:23 Dose: 100 mg Documented by: [id number] Ondansetron HCl (Ondansetron Inj 2 Mg/Ml 2 Ml Vial) 4 mg IV NOW STA Stop: 12/23/20 22:01 Last Admin: 12/23/20 22:23 Dose: 4 mg Documented by: [id number] Discharge Plan Visit Data Chief Complaint: Illness Stated Complaint: N/V, hyppertensive, tachycardic ED Provider: Prabhu Dumont Discharge Problem: Nausea, vomiting, and diarrhea, Malignant hypertension, Leukocytosis Forms Stand Alone Forms: My [facility] Prescriptions Prescriptions: No Action atorvastatin 80 mg tablet 80 mg PO HS Qty: 90 RF: 3 amitriptyline 25 mg tablet 25 mg PO HS Qty: 90 RF: 2 metoprolol succinate [Toprol XL] 100 mg tablet extended release 24 hr 100 mg PO BID Qty: 90 RF: 2 clopidogrel [Plavix] 75 mg tablet 75 mg PO QAM Qty: 90 RF: 1 losartan [Cozaar] 100 mg tablet 100 mg PO QAM Qty: 90 RF: 1 multivitamin Tablet 1 tab PO QAM RF: 0 promethazine 25 mg tablet 25 mg PO Q6H PRN (Reason: Nausea And Vomiting) RF: 0 capsaicin 0.025 % cream 1 applic topical QID Qty: 25 RF: 0 clonidine HCl 0.1 mg tablet 0.1 mg PO Q6 PRN (Reason: Systolic BP>180) Qty: 10 RF: 0 ondansetron 4 mg tablet,disintegrating 4 mg PO Q6H PRN (Reason: Nausea And Vomiting) Qty: 20 RF: 0 levetiracetam [Keppra] 1,000 mg tablet 1,000 mg PO BID Qty: 60 RF: 5 clonidine 0.1 mg/24 hr patch weekly 1 patch topical WK RF: 0 venlafaxine [Effexor XR] 75 mg capsule,extended release 24hr 75 mg PO QAM RF: 0 amlodipine 5 mg tablet 5 mg PO QAM RF: 0 cholecalciferol (vitamin D3) 50 mcg (2,000 unit) tablet 50 mcg PO PM RF: 0
[2020-12-23] MEDS ORDERED: METOPROLOL SUCC 50MG EXT REL TAB PO STA (22:00)
[2020-12-23] MEDS ORDERED: cloNIDine HCL 0.1 MG TAB PO ONE (22:00)
[2020-12-23] MEDS ORDERED: ONDANSETRON INJ 2 MG/ML 2 ML VIAL IV STA (22:00)
[2020-12-23] MEDS ORDERED: PROMETHAZINE 25 MG/51 ML BAG IV STA (22:59)
--- NOTE | 2020-12-24 00:03 | History & Physical Report ---
Date of Service December 24, 2020 Assessment & Plan (1) Cannabinoid hyperemesis syndrome: Patient symptom presentation similar to previous admissions in the past few years. Discussion regarding symptom relation to marijuana use Zofran 4 mg IV every 6 hours as needed NSS + KCl 20 mEq at 150 mils per hour Famotidine 20 mg IV every 12 hours Present on Admission?: Yes (2) HTN (hypertension): Uncontrolled at this time due to inability to take medications due to intractable nausea and vomiting. Hold all oral medications for now: Amlodipine, clonidine, losartan, metoprolol succinate Lopressor 5 mg IV every 4 hours, hold for systolic blood pressure less than 100 Cardizem 10 mg IV every 4 hours as needed systolic blood pressure greater than 140 Once patient is able to resume her normal diet, will resume her usual oral medications Present on Admission?: Yes (3) Hyperlipidemia: Hold atorvastatin until able to take p.o. Present on Admission?: Yes (4) Anxiety disorder: Hold oral medications for now Present on Admission?: Yes (5) CAD (coronary artery disease): Discussed with patient that she needs to have excellent control of her blood pressure to minimize the potential for further development of coronary disease and cerebrovascular disease. Present on Admission?: Yes (6) Marijuana dependence: See above Present on Admission?: Yes (7) Seizure: Continue Keppra Present on Admission?: Yes History of Present Illness Chief Complaint: The patient presents to the emergency department with complaint of persistent nausea, vomiting and diarrhea, similar to her previous admissions Primary Care Provider: Teena Killian DO The patient is a 55-year-old female with a past medical history of cannabinoid hyperemesis syndrome, marijuana dependence, PRES, hypertension,, seizure, vitamin D deficiency, carotid stenosis, CAD, pulmonary emphysema, multiple thyroid nodules, hyperlipidemia, diverticulosis, anxiety, TIA and cervical spondylosis with myelopathy and radiculopathy. Patient has had multiple admissions in the past for similar symptoms, most recently 10/29-10/31/2020, and 11/02-11/03/2020. Typically what happens is that the patient develops intractable nausea, vomiting and diarrhea due to her cannabinoids use, and then is unable to take her usual prescription medications, and develops uncontrolled hypertension, which then requires admission. Patient reports that she did get the first Moderna vaccine yesterday. she was COVID-19 negative in the ED this evening. Allergies Allergy/AdvReac Type Severity Reaction Status Date / Time napoles Allergy Intermediate Hives Verified 12/23/20 20:58 doxycycline Allergy Intermediate hives and Verified 12/23/20 20:58 vomitting Iodinated Contrast Media Allergy Intermediate GIANT Verified 12/23/20 20:58 HIVES , VOMITTING, BODY FEELS HOT loperamide Allergy Intermediate Hives and Verified 12/23/20 20:58 vomiting meperidine Allergy Intermediate HIVES, Verified 12/23/20 20:58 VOMITING prochlorperazine Allergy Intermediate N/V, Verified 12/23/20 20:58 ITCHINESS strawberry Allergy Intermediate HIVES Verified 12/23/20 20:58 tomato Allergy Intermediate HIVES Verified 12/23/20 20:58 iodine Allergy . Verified 12/23/20 20:58 latex AdvReac Mild RASH Verified 12/23/20 20:58 Home Medications Medication Instructions Recorded Confirmed Type multivitamin 1 tab PO QAM 12/16/18 12/23/20 History promethazine 25 mg PO Q6H PRN 07/17/19 12/23/20 History atorvastatin 80 mg tablet 80 mg PO HS #90 tab 04/04/20 12/23/20 Rx capsaicin 1 applic TOPICAL QID #25 g 04/09/20 12/23/20 Rx clonidine HCl 0.1 mg PO Q6 PRN #10 tab 04/14/20 12/23/20 Rx amitriptyline 25 mg tablet 25 mg PO HS #90 tab 08/08/20 12/23/20 Rx metoprolol succinate 100 mg 100 mg PO BID #90 tab 10/09/20 12/23/20 Rx tablet,extended release 24 hr clopidogrel 75 mg tablet 75 mg PO QAM #90 tab 10/16/20 12/23/20 Rx levetiracetam [Keppra] 1,000 mg PO BID #60 tab 10/31/20 12/23/20 Rx ondansetron 4 mg PO Q6H PRN #20 tab 10/31/20 12/23/20 Rx clonidine 1 patch TOPICAL WK 11/02/20 12/23/20 History losartan 100 mg tablet 100 mg PO QAM #90 tab 12/15/20 12/23/20 Rx amlodipine 5 mg PO QAM 12/23/20 12/23/20 History cholecalciferol (vitamin D3) 50 mcg PO PM 12/23/20 12/23/20 History venlafaxine [Effexor XR] 75 mg PO QAM 12/23/20 12/23/20 History Past Med/Surg History Medical History Abnormal MRI of head Acute UTI Anxiety disorder CAD (coronary artery disease) Carotid stenosis Cervical disc disorder Congestive heart failure, acute Cyclic vomiting syndrome Diverticulitis Diverticulosis Gastritis Grief reaction Hematemesis Hematuria History of diverticulitis of colon History of gastritis History of hypotension Hot flashes due to menopause HTN (hypertension) Hx-TIA (transient ischemic attack) Hypercalcemia Hyperlipidemia Hypertension Hypertensive emergency Hypertensive urgency Hypertensive urgency Hypokalemia Marijuana dependence Multiple thyroid nodules New onset seizure NSTEMI (non-ST elevated myocardial infarction) PRES (posterior reversible encephalopathy syndrome) PRES (posterior reversible encephalopathy syndrome) Pulmonary emphysema Takotsubo cardiomyopathy Transient cerebrovascular ischemia Vitamin D deficiency Surgical History H/O cervical spine surgery History of cardiac cath History of hernia surgery History of hysterectomy History of ovarian cystectomy S/P cervical discectomy Family History Father Family history of stomach cancer Stroke Myocardial infarction Malignant neoplasm of esophagus Stomach cancer Uncle Family history of cancer Throat cancer Grandmother (Maternal) Breast cancer Bone cancer Mother No problems noted. Other No pertinent family history Denies family history of Colon cancer Ovarian cancer Prostate cancer Crohn's disease IBD (inflammatory bowel disease) Social History Smoking Status: Current some day smoker packs per day: 2; Years Smoked: 25; Second Hand Exposure: No; Do You Dip or Chew Tobacco: No; Tobacco Cessation Education Requested by Patient: No Hx Alcohol Use: Yes Alcohol type: beer Hx Substance Use: Yes Last Used Substance: Days (ago) Last Used Substance Other:: 1 week Substance Use Type Other:: when zofran doesn't work Preferred Language: Wolof Communication Ability: Effective Visual Impairment: Limited Hearing Ability: Normal Transportation Inspector Required: No Beliefs That Will Affect Care: None marital status: Current Living Situation: Spouse current occupational status: employed 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 [employer] Other Information That Helps Us Care for You: No Feels Safe at Home: Yes Safety Concerns: Feels Safe At This Time Childhood Exposure to Second-Hand Smoke: Yes caffeine: Yes (1 cup of coffee) during the past year weight has: other Dental Care, Regularly: No Physical Activity Frequency: Daily Physical Activity Frequency Comment: walking Seatbelt Use: always Sunscreen Use: Yes Assistive Devices: Denture - Upper and Denture - Lower Review of Systems Review of Systems: The patient denies chest pain, palpitations, shortness of breath, dyspnea on exertion, cough, lower extremity swelling, sore throat, fevers, chills, sweats,constipation, abdominal pain, pelvic pain, blood in urine or stool, dysuria, urinary frequency or urgency, lightheadedness, dizziness, headache, memory loss, loss of consciousness, rash, abnormal bruising or bleeding, imbalance, focal or generalized weakness, numbness or tingling in arms or legs, generalized arthralgias or myalgias, back or neck pain, or night sweats. The review of systems is otherwise negative other than for that already noted above, and at least 10 systems have been reviewed. Physical Exam Physical Exam: The patient is awake, alert and oriented 3, well developed and well nourished, normocephalic and atraumatic, lying in bed and in no acute distress. HEENT--PERRL, EOMI, mucous membranes and oropharynx normal Neck--supple. No JVD. No bruits. Thyroid normal, trachea midline, no adenopath y. Heart--normal S1 and S2. No murmurs, rubs or gallops. Lungs--clear bilaterally, no respiratory distress, no accessory muscle use. Abdomen--normal bowel sounds and soft. Nontender. Nondistended, no hernias or masses, no organomegaly. Extremities--no cyanosis or clubbing. No edema. Dermatologic--normal skin turgor, normal color, no abnormal lymph nodes, no rash. Neurologic--cranial nerves II through XII grossly intact. Rheumatologic--normal range of motion. Psychiatric--normal affect. Results & Data Results & Data ([facility]) Vital Signs (Past 12 Hours) Vital Signs Temp Pulse Pulse Resp BP BP Pulse Ox 12/23/20 23:27 105 H 20 182/118 H 96 12/23/20 22:32 105 H 20 186/144 H 97 12/23/20 21:45 99 H 18 180/122 H 97 12/23/20 21:25 107 H 20 197/110 H 98 12/23/20 21:13 104 H 20 188/130 H 97 12/23/20 20:53 91 H 20 189/134 H 95 12/23/20 20:22 100 H 20 180/136 H 96 12/23/20 20:06 98.2 F 94 H 20 196/141 H 97 Laboratory Results Laboratory Results WBC 19.26 K/uL (4.8-10.8) H 12/23/20 19:36 RBC 4.69 M/uL (4.2-5.4) 12/23/20 19:36 Hgb 14.9 g/dL (12.0-16.0) 12/23/20 19:36 Hct 42.9 % (37-47) 12/23/20 19:36 MCV 91.5 fL (80-100) 12/23/20 19:36 MCH 31.8 pg (25-34) 12/23/20 19:36 MCHC 34.7 g/dL (32-36) 12/23/20 19:36 RDW Std Deviation 45.5 fL (36.4-46.3) 12/23/20 19:36 RDW Coeff of Jose Luis 13.6 % (11.5-14.5) 12/23/20 19:36 Plt Count 330 K/uL (130-400) 12/23/20 19:36 MPV 10.6 fL (7.4-10.4) H 12/23/20 19:36 Immature Gran % (Auto) 0.4 % 12/23/20 19:36 Neut % (Auto) 85.7 % 12/23/20 19:36 Lymph % (Auto) 9.7 % 12/23/20 19:36 Crane % (Auto) 3.7 % 12/23/20 19:36 Eos % (Auto) 0.2 % 12/23/20 19:36 Baso % (Auto) 0.3 % 12/23/20 19:36 Neut # (Auto) 16.53 K/uL (1.4-6.5) H 12/23/20 19:36 Lymph # (Auto) 1.86 K/uL (1.2-3.4) 12/23/20 19:36 Crane # (Auto) 0.72 K/uL (0.11-0.59) H 12/23/20 19:36 Eos # (Auto) 0.03 K/uL (0-0.5) 12/23/20 19:36 Baso # (Auto) 0.05 K/uL (0-0.2) 12/23/20 19:36 Immature Gran # (Auto) 0.07 K/uL (0.00-0.02) H 12/23/20 19:36 Sodium 141 mmol/L (136-145) 12/23/20 19:36 Potassium 3.3 mmol/L (3.5-5.1) L 12/23/20 19:36 Chloride 108 mmol/L (98-107) H 12/23/20 19:36 Carbon Dioxide 23 mmol/L (21-32) 12/23/20 19:36 Anion Gap 10.0 (3-11) 12/23/20 19:36 BUN 13 mg/dl (7-18) 12/23/20 19:36 Creatinine 0.87 mg/dl (0.6-1.2) 12/23/20 19:36 Est Cr Clr Drug Dosing 71.9 ml/min 12/23/20 19:36 Est GFR ( Amer) 87.5 ml/min 12/23/20 19:36 Est GFR (Non-Af Amer) 75.5 ml/min 12/23/20 19:36 BUN/Creatinine Ratio 14.9 (10-20) 12/23/20 19:36 Glucose 164 mg/dl (70-99) H 12/23/20 19:36 Calcium 9.3 mg/dl (8.5-10.1) 12/23/20 19:36 Total Bilirubin 0.3 mg/dl (0.2-1) 12/23/20 19:36 AST 20 U/L (15-37) 12/23/20 19:36 ALT 34 U/L (12-78) 12/23/20 19:36 Alkaline Phosphatase 103 U/L (45-117) 12/23/20 19:36 Total Protein 8.6 gm/dl (6.4-8.2) H 12/23/20 19:36 Albumin 4.4 gm/dl (3.4-5.0) 12/23/20 19:36 Globulin 4.2 gm/dl (2.5-4.0) H 12/23/20 19:36 Albumin/Globulin Ratio 1.0 (0.9-2) 12/23/20 19:36 Lipase 92 U/L (73-393) 12/23/20 19:36 Urine Color Yellow 12/23/20 Unknown Urine Appearance Clear (Clear) 12/23/20 Unknown Urine pH 7.5 (4.5-7.5) 12/23/20 Unknown Ur Specific Bernie 1.013 (1.000-1.030) 12/23/20 Unknown Urine Protein 3+ (Negative) H 12/23/20 Unknown Urine Glucose (UA) Negative (Negative) 12/23/20 Unknown Urine Ketones Negative (Negative) 12/23/20 Unknown Urine Blood 2+ (Negative) H 12/23/20 Unknown Urine Nitrite Negative (Negative) 12/23/20 Unknown Urine Bilirubin Negative (Negative) 12/23/20 Unknown Urine Urobilinogen Negative (Negative) 12/23/20 Unknown Ur Leukocyte Esterase Negative (Negative) 12/23/20 Unknown Urine WBC (Auto) 1-5 /hpf (0-5) 12/23/20 Unknown Urine RBC (Auto) >30 /hpf (0-4) H 12/23/20 Unknown U Hyaline Cast (Auto) 0 /lpf (0-5) 12/23/20 Unknown U Epithel Cells (Auto) 10-20 /lpf (0-5) H 12/23/20 Unknown Urine Bacteria (Auto) Negative (Negative) 12/23/20 Unknown COVID-19 Eval Order Covid19 at [facility] 12/23/20 21:45 SARS-CoV-2 (PCR) NEGATIVE (Negative) 12/23/20 21:45 Diagnostic Findings [facility] Patient: ONEL MONTOYA (Female) : 67 Status: ER Date: 12/23/20 23:21 Room #: History: intractable vomiting, appendix present Slices: [id number] Priors: Tech: Jocelin Taylor @ [phone] Exams: CT ABDOMEN & PELVIS Without Contrast Contrast: Accession Numbers: [id number] Preliminary Findings Only See Final Report For Complete Findings CT ABDOMEN & PELVIS Without Contrast: Comparison to October 29, 2020. The appendix is normal. Bowel loops are nondilated. There is moderate to severe diverticulosis of the lower left and sigmoid colon. No definite acute inflammatory changes are seen involving the bowel to suggest diverticulitis. No pneumoperitoneum or free fluid. Mild fatty infiltration of the liver and hepatomegaly with the liver measuring 20 cm craniocaudad. The kidneys are unremarkable. No hydronephrosis or ureterolithiasis is seen. The urinary bladder is within normal limits. Moderate degenerative changes involve the lower lumbar spine greatest at L4-5. No fracture or subluxation is seen. Radiologist: Luis Antonio Prescott MD Study ready at 23:28 and initial results transmitted at 23:57 *This report constitutes a preliminary interpretation only. Non-acute findings felt to be unrelated to the clinical presentation may not be discussed in this report. The study will be interpreted and a final report will be generated by the local Radiologist the following shift. To reach the hospital radiology department call [phone]. If a discrepancy is found between the preliminary and final interpretations of this study, please notify us via our Client Portal at [email or web address].You can also fax this report with a description of the discrepancy, or include the final report, to our daytime fax number [phone].If faxing, please indicate the severity of discrepancy using one of the following categories: [ ] 1 - Agree/Informational [ ] 2 - Unlikely to Affect Management [ ] 3 - Possible Eventual Change of Management [ ] 4 - Probable Immediate Change of Management For all other patient related information, please fax us at [phone]. [id number] Code Status & VTE Plan Code Status Full code VTE Prophylaxis Plan VTE Prophylaxis will be ordered: Yes PG Care Time/CCT Total # of Minutes Spent Total Time Spent with Patient: Total time spent is greater than 50% in coordination of care (as documented) at patient's floor/unit and/or counseling patient: Coding Level of Care Code 63208 Initial Inpt Care Lvl 3 Diagnoses Cannabinoid hyperemesis syndrome F12.988 HTN (hypertension) I10 Hyperlipidemia E78.5 Hyperlipidemia type: unspecified Anxiety disorder F41.9 CAD (coronary artery disease) I25.10 Coronary Disease-Associated Artery/Lesion type: [place] artery [place] vs. transplanted heart: [place] heart Associated angina: without angina Marijuana dependence F12.20 Seizure R56.9 (1) Hyperlipidemia Hyperlipidemia type: unspecified Qualified Code(s): E78.5 - Hyperlipidemia, unspecified (2) CAD (coronary artery disease) Coronary Disease-Associated Artery/Lesion type: [place] artery [place] vs. transplanted heart: [place] heart Associated angina: without angina Qualified Code(s): I25.10 - Atherosclerotic heart disease of [place] coronary artery without angina pectoris
[2020-12-24] MEDS ORDERED: hydrALAZINE HCL 20 MG/ML VIAL IV ONE (00:21)
[2020-12-24] MEDS ORDERED: ONDANSETRON INJ 2 MG/ML 2 ML VIAL IV PRN (01:19)
[2020-12-24] MEDS ORDERED: dilTIAZem HCl 5 MG/ML 5 ML VIAL IV PRN (01:19)
[2020-12-24] MEDS: METOPROLOL TARTRATE 1 MG/ML VIAL IV SCH ×4 (01:52→14:31)
[2020-12-24] MEDS: NSS + 20MEQ KCL 20 MEQ/1,000 ML BAG IV SCH ×2 (02:13→10:12)
[2020-12-24] MEDS ORDERED: METOCLOPRAMIDE HCL INJ 5 MG/ML 2 ML VIAL IV STA (04:19)
[2020-12-24] MEDS ORDERED: CALCIUM CARBONATE 500 MG CHEWABLE TAB PO ONE (04:20)
[2020-12-24] MEDS ORDERED: FAMOTIDINE 20MG IV PUSH 20 MG/5 ML SYR IV SCH (06:00)
[2020-12-24] MEDS: ACETAMINOPHEN 325 MG TAB PO PRN ×2 (06:11→16:54)
[2020-12-24 06:16] LABS: Basophils # (auto) 0.03 K/uL (0-0.2); Basophils % (auto) 0.2 %; Hematocrit (blood only) 43.1 % (37-47); Hemoglobin 15.1 g/dL (12.0-16.0); Immature Granulocytes # (auto) 0.06 K/uL (0.00-0.02); Immature Granulocytes % (auto) 0.4 %; Lymphocytes # (auto) 1.74 K/uL (1.2-3.4); Lymphocytes % (auto) 11.4 %; Mean Corpuscular Hemoglobin 31.8 pg (25-34); Mean Corpuscular Volume 90.7 fL (80-100); Monocytes # (auto) 0.82 K/uL (0.11-0.59); Monocytes % (auto) 5.4 %; Neutrophils # (auto) 12.66 K/uL (1.4-6.5); Neutrophils % (auto) 82.6 %; Platelet Count 344 K/uL (130-400); RDW Coefficient of Variation 13.6 % (11.5-14.5); RDW Standard Deviation 44.5 fL (36.4-46.3); Red Blood Count 4.75 M/uL (4.2-5.4); White Blood Count 15.31 K/uL (4.8-10.8)
[2020-12-24 06:41] LABS: Albumin Level 4.1 gm/dl (3.4-5.0); BUN Creatinine Ratio 15.8 (10-20); Calcium 8.8 mg/dl (8.5-10.1); Creatinine Clr Calc Pharmacy 88.3 ml/min; Est GFR (African American) 99.9 ml/min; Est GFR (Non-African American) 86.2 ml/min; Magnesium 1.9 mg/dl (1.8-2.4); Potassium 3.4 mmol/L (3.5-5.1)
[2020-12-24 06:44] LABS: Bilirubin,Total 0.3 mg/dl (0.2-1); Globulin 4.2 gm/dl (2.5-4.0); Total Protein 8.3 gm/dl (6.4-8.2)
--- NOTE | 2020-12-24 08:16 | CT Scan Report ---
ABDOMEN AND PELVIS CT WITHOUT CONTRAST CT DOSE: 525.14 mGy.cm HISTORY: intractable vomiting TECHNIQUE: Multiaxial CT images of the abdomen and pelvis were performed without contrast. A dose lo wering technique was utilized adhering to the principles of ALARA. COMPARISON STUDY: Abdomen and pelvis CT 10/29/2020. FINDINGS: The lung bases are clear. No pneumoperitoneum. No pneumatosis. No suspicious lytic or blast ic osseous lesions. Mild hepatic steatosis. The unenhanced gallbladder, spleen, and pancreas are unre markable. No renal stones or hydronephrosis. No retroperitoneal lymphadenopathy. Normal caliber abdom inal aorta. The bladder is unremarkable. Prior hysterectomy. Colonic diverticulosis. No evidence for acute diverticulitis. Suboptimal evaluation for bowel pathology due to the lack of intravenous and or al contrast. However, there is no definite bowel wall thickening or obstruction. Normal appendix. Mil d inflammatory change surrounding the normal adrenal glands. IMPRESSION: 1. No definite bowel wall thickening or obstruction. 2. Hepatic steatosis. 3. Colonic diverticulosis. No evidence for acute diverticulitis. 4. Normal appendix. 5. Mild inflammatory change surrounding the normal adrenal glands. This is nonspecific but could repr esent adrenal abnormality such as insufficiency. Nonemergent endocrinology consultation recommended. ACT 112: Negative or not required by law. Electronically signed by: Sam Rodriguez M.D. 12/24/2020 8:15 AM
--- NOTE | 2020-12-24 10:11 | Hospitalist Progress Note ---
Date of Service December 24, 2020 Assessment & Plan (1) Nausea, vomiting, and diarrhea: Cyndie is a 55-year-old female with a notable past medical history of resistant hypertension, left renal artery stenosis, previous hypertensive urgency/emergency, seizures, coronary artery disease, anxiety, hyperlipidemia, and frequent cannabinoid use with reported history of CHS who presented for intractable nausea, vomiting, and occasional diarrhea X1 day following her COVID-19 vaccination, subsequently found to have hypertensive urgency. She is hemodynamically stable. HYPERTENSIVE URGENCY -- suspect secondary to inability to take home antiHTNs Upon arrival, patient found to have blood pressures between 190-210/130-140s In the setting of intractable nausea and vomiting thought to proceed the hypertension, and inability to take home antihypertensives for resistant hypertension Currently without signs, symptoms, or diagnostics concerning for end-organ damage RESUME: Clonidine patch, metoprolol succinate 100mg PO b.i.d. (this dose was confirmed by patient, pharmacy) --> will start with 50mg tonight and resume normal dose tmrw given normotension Cardizem 10 mg IV every 4 as needed for systolics greater than 140 Hold oral antihypertensives: Amlodipine, losartan Explore compliance, barriers that may cause other possible difficulties that would precipitate HTN urgency CCM at the PCU BMP in AM INTRACTABLE NAUSEA AND VOMITING Several recent admissions in similar context; nausea and vomiting that is subsequently led to a hypertensive urgency/emergency Patient has previously been suspected to have cyclical vomiting syndrome versus cannabinoid hyperemesis syndrome In the setting of her recent Covid vaccination proceeding start of symptoms, cannot rule out this as a possible etiology; could have also been trigger for CVS Work-up as follows have CT abdomen pelvis noting hepatic steatosis, mild inflammation around the adrenals that is somewhat of a nonspecific finding Glucose, LFTs, BMP, UA without significant abnormalities UDS Pending Await AM cortisol Zofran 4 IV q6h p.r.n. -- can add on Compazine, Phenergan p.r.n. Discontinue IVF, promote PO intake Continue Pepsid p.o. Chronic Medical Conditions HLD: Continue atorvastatin once able CARLIE: Continue medications once able CAD: HTN, HLD control as above H/O Seizure: Continue Keppra Dispo: PCU FENGI: Advance as tolerated to diet PPX: SCDs Code: FULL CODE (2) Leukocytosis: (3) Seizure: (4) Posterior reversible encephalopathy syndrome (PRES): (5) Proteinuria: (6) Cyclic vomiting syndrome: (7) Hypercalcemia: (8) Cervical spondylosis with myelopathy and radiculopathy: (9) Carotid stenosis: (10) CAD (coronary artery disease): (11) Pulmonary emphysema: (12) Multiple thyroid nodules: (13) Hyperlipidemia: (14) Anxiety disorder: (15) Hx-TIA (transient ischemic attack): Admission and Anticipated Discharge Date Admission Date: December 24, 2020 Supervising Physician Co-Signing Physician Notes Attending attestation Pt seen and examined in concert with Dr. Ellis. In agreement with the documented findings as noted in the resident documentation with any exceptions or additions as noted here. Significant improvement in nausea, still feeling somewhat fatigued. Reiterates that she is adherent to her medications - her helps her keep track at home. Cardiology rx'd metoprolol succinate at present dose per pt. On examination, S1/S2 nl RRR no MCG. CTAB. Abd NT/ND BS+ve Hypertensive urgency - tolerating IV medications well with good response in pressure. Gradual restart of home BP meds starting with clonidine patch to avoid rebound and toprol in PM, then full tomorrow with weaning of PRN use. Underlying renal artery stenosis under evaluation by Dr. Maynard in outpatient Nausea/vomiting - ?reaction to COVID vaccination vs. cyclic vomiting - h/o MJ use but last > 1 wk ago. Continue anti-emetic. Should return home with same on discharge. Else see resident documentation as noted. Subjective Patient seen at bedside this morning, reviewed history of present illness with the following additions/changes noted. Patient reports that they got there COVID-19 vaccination on Friday; then, beginning Friday late morning/early afternoon, began feeling progressively more nauseous and began vomiting. Occasional diarrhea, no hematochezia. Was at that time where she felt like she could not take her home medications. Discontinued throughout the day. She also endorsed chills and sweats and progressive feelings of illness. She attempted to take Zofran, but was unable to really keep that down. Due to the severity of her symptoms, she did come to the ER. She reports that her brother just last week after a short bout of cancer. It has been incredibly emotionally difficult for her. She says that she has felt fine overall from a symptom standpoint this past week, was not ready until yesterday when the nausea and vomiting began. She does endorse utilizing marijuana in the past to aid with her symptoms of nausea and vomiting; however, she denies using this within the last week. She says the last time she smoked anything (approximately 1 bowl) was 8 days ago. We did discuss the initial impression of cannabinoid hyperemesis syndrome. She feels this is more related to the COVID-19 vaccination. She denies any headache or changes in vision right now. She denies any chest pain or shortness of breath. She says that nausea has continued throughout this morning, last bout of emesis was approximately at 06 30. Several bouts of emesis overnight too. She said this morning's emesis had a couple streaks of blood. Otherwise, no complaints this morning. She was able to tolerate breakfast this morning without any difficulty She denies any further use of recreational drugs or substances. She denies any alcohol use. Review of Systems Review of Systems: as per HPI Physical Exam Physical Exam: General: Tired-appearing 55-year-old female who is lying back in her hospital bed, relaxed, upon my arrival. She converses freely and without acute distress. Intermittently tearful while sharing stories about her late brother. HEENT: NCAT. Eyes - Sclera are white, anicteric, and without injection. PERRL. EOMs display full ROM bilaterally. Mouth - MMM. Cardiac: Normal rate and regular rhythm; S1 and S2 present with no murmurs, r ubs, or gallops. Pulmonary: Good respiratory effort with symmetric expansion of the chest. No use of accessory muscles. Lungs were clear to auscultation bilaterally with no crackles or wheezes. Abdominal: Normoactive bowel sounds. Abdomen was soft, nondistended, and non- tender to palpation. Results & Data Results & Data ([facility]) Vital Signs (Past 12 Hours) Vital Signs Temp Pulse Pulse Resp BP BP Pulse Ox 12/24/20 08:40 99 H 180/99 H 12/24/20 07:48 37.3 C 90 22 105/70 97 12/24/20 06:02 103 H 187/119 H 12/24/20 04:28 91 H 175/110 H 12/24/20 04:19 92 H 180/106 H 12/24/20 03:04 37.4 C 96 H 19 101/74 94 12/24/20 01:52 105 H 161/119 H 12/24/20 01:22 37.2 C 105 H 108 H 20 161/119 H 98 12/24/20 00:56 104 H 20 188/126 H 96 12/24/20 00:39 103 H 20 196/133 H 96 12/24/20 00:03 103 H 20 209/133 H 96 12/23/20 23:27 105 H 20 182/118 H 96 12/23/20 22:32 105 H 20 186/144 H 97 Resident Activity Tracking Resident Involvement: Resident Care Provided Care Provided: Adult Hospital Medicine (1) CAD (coronary artery disease) Associated angina: without angina Coronary Disease-Associated Artery/Lesion type: [place] artery [place] vs. transplanted heart: [place] heart Qualified Code(s): I25.10 - Atherosclerotic heart disease of [place] coronary artery withou t angina pectoris (2) Hyperlipidemia Hyperlipidemia type: unspecified Qualified Code(s): E78.5 - Hyperlipidemia, unspecified
[2020-12-24 10:32] LABS: Amphetamines+Metham, Urine Neg (Neg); Barbiturates, Urine Neg (Neg); Benzodiazepine, Urine Neg (Neg); Cocaine, Urine Neg (Neg); MDMA (Ecstacy), Urine Neg (Neg); Methadone, Urine Neg (Neg); Opiate, Urine Neg (Neg); Phencyclidine, Urine Neg (Neg)
[2020-12-24] MEDS ORDERED: cloNIDine HCL 0.1 MG/24 HR TRANSDERM SYS TD SCH (17:30)
[2020-12-24] MEDS ORDERED: METOPROLOL SUCC 50MG EXT REL TAB PO ONE (20:00)
--- NOTE | 2020-12-24 23:18 | Electrocardiogram Report ---
Test Reason : Blood Pressure : / mmHG Vent. Rate : 095 BPM Atrial Rate : 095 BPM P-R Int : 210 ms QRS Dur : 088 ms QT Int : 368 ms P-R-T Axes : 043 -22 039 degrees QTc Int : 462 ms Poor data quality, interpretation may be adversely affected Sinus rhythm with 1st degree A-V block Possible Left atrial enlargement Borderline ECG When compared with ECG of 02-NOV-2020 09:37, NM interval has increased Confirmed by Quinten Sanchez ([id number]) on 12/24/2020 11:18:00 PM Referred By: REFERRED SELF Confirmed By:Quinten Sanchez
[2020-12-25] MEDS: CHECK CLONIDINE PATCH PLACEMENT SCH ×2 (00:15→07:54)
[2020-12-25 07:23] LABS: Basophils # (auto) 0.06 K/uL (0-0.2); Basophils % (auto) 0.7 %; Eosinophils # (auto) 0.21 K/uL (0-0.5); Eosinophils % (auto) 2.3 %; Hematocrit (blood only) 40.6 % (37-47); Immature Granulocytes # (auto) 0.03 K/uL (0.00-0.02); Immature Granulocytes % (auto) 0.3 %; Lymphocytes # (auto) 2.95 K/uL (1.2-3.4); Lymphocytes % (auto) 32.9 %; Mean Corpuscular Hemoglobin 31.4 pg (25-34); Mean Corpuscular Hgb Conc 34.5 g/dL (32-36); Mean Platelet Volume 10.1 fL (7.4-10.4); Monocytes # (auto) 0.85 K/uL (0.11-0.59); Monocytes % (auto) 9.5 %; Neutrophils # (auto) 4.88 K/uL (1.4-6.5); Neutrophils % (auto) 54.3 %; Platelet Count 325 K/uL (130-400); RDW Coefficient of Variation 13.7 % (11.5-14.5); RDW Standard Deviation 45.6 fL (36.4-46.3); Red Blood Count 4.46 M/uL (4.2-5.4); White Blood Count 8.98 K/uL (4.8-10.8)
[2020-12-25 07:31] VITALS: O2SAT 96
[2020-12-25 07:59] LABS: Est GFR (African American) 114.4 ml/min
[2020-12-25 08:00] LABS: Albumin Level 3.6 gm/dl (3.4-5.0); BUN Creatinine Ratio 20.2 (10-20); Creatinine Clr Calc Pharmacy 99.8 ml/min; Est GFR (Non-African American) 98.7 ml/min; Magnesium 2.3 mg/dl (1.8-2.4)
[2020-12-25 08:02] LABS: Bilirubin,Total 0.5 mg/dl (0.2-1); Globulin 3.6 gm/dl (2.5-4.0); Total Protein 7.2 gm/dl (6.4-8.2)
[2020-12-25] MEDS ORDERED: FAMOTIDINE 20 MG TAB PO SCH (09:00)
[2020-12-25] MEDS ORDERED: METOPROLOL SUCC 50MG EXT REL TAB PO SCH ×2 (09:00)
[2020-12-25] MEDS ORDERED: POTASSIUM CHLORIDE 20 MEQ/15 ML UDC PO STA (09:07)
[2020-12-25 11:53] VITALS: BP 177/117; PULSE 72; TEMP 97.9
--- NOTE | 2020-12-25 12:11 | Discharge Summary ---
Date of Service December 25, 2020 Admission HPI Per Admitting Provider The patient is a 55-year-old female with a past medical history of cannabinoid hyperemesis syndrome, marijuana dependence, PRES, hypertension,, seizure, vitamin D deficiency, carotid stenosis, CAD, pulmonary emphysema, multiple thyroid nodules, hyperlipidemia, diverticulosis, anxiety, TIA and cervical spondylosis with myelopathy and radiculopathy. Patient has had multiple admissions in the past for similar symptoms, most recently 10/29-10/31/2020, and 11/02-11/03/2020. Typically what happens is that the patient develops intractable nausea, vomiting and diarrhea due to her cannabinoids use, and then is unable to take her usual prescription medications, and develops uncontrolled hypertension, which then requires admission. Patient reports that she did get the first Moderna vaccine yesterday. she was COVID-19 negative in the ED this evening. Admission Exam Per Admitting Provider The patient is awake, alert and oriented 3, well developed and well nourished, normocephalic and atraumatic, lying in bed and in no acute distress. HEENT--PERRL, EOMI, mucous membranes and oropharynx normal Neck--supple. No JVD. No bruits. Thyroid normal, trachea midline, no adenopathy. Heart--normal S1 and S2. No murmurs, rubs or gallops. Lungs--clear bilaterally, no respiratory distress, no accessory muscle use. Abdomen--normal bowel sounds and soft. Nontender. Nondistended, no hernias or masses, no organomegaly. Extremities--no cyanosis or clubbing. No edema. Dermatologic--normal skin turgor, normal color, no abnormal lymph nodes, no rash. Neurologic--cranial nerves II through XII grossly intact. Rheumatologic--normal range of motion. Psychiatric--normal affect. Principal Diagnosis hypertensive urgency Discharge Exam GENERAL: No acute distress. Well developed and well nourished. Vital signs reviewed as above. A/O x3. EYES: PERRLA. EOMI. Anicteric sclerae. HENT: Moist mucous membranes. RESPIRATORY: Clear to auscultation bilaterally. No wheezing, rales, or rhonchi. CARDIOVASCULAR: Regular rate and rhythm. No murmurs. ABDOMEN: Soft, non-tender and non-distended. Normal bowel sounds. EXTREMITIES: No edema. Non-tender. SKIN: Warm, dry. No rashes or lesions. NEUROLOGIC: No focal neurological deficits. CN II-XII grossly intact, but not individually tested. PSYCHIATRIC: Cooperative. Appropriate mood and affect. Discharge Data Allergies Allergy/AdvReac Type Severity Reaction Status Date / Time napoles Allergy Intermediate Hives Verified 12/23/20 20:58 doxycycline Allergy Intermediate hives and Verified 12/23/20 20:58 vomitting Iodinated Contrast Media Allergy Intermediate GIANT Verified 12/23/20 20:58 HIVES , VOMITTING, BODY FEELS HOT loperamide Allergy Intermediate Hives and Verified 12/23/20 20:58 vomiting meperidine Allergy Intermediate HIVES, Verified 12/23/20 20:58 VOMITING prochlorperazine Allergy Intermediate N/V, Verified 12/23/20 20:58 ITCHINESS strawberry Allergy Intermediate HIVES Verified 12/23/20 20:58 tomato Allergy Intermediate HIVES Verified 12/23/20 20:58 iodine Allergy . Verified 12/23/20 20:58 latex AdvReac Mild RASH Verified 12/23/20 20:58 Consultations 12/23/20 23:31 ED Decision to Admit Stat Ordered Studies 12/23/20 22:59 CT abd pelvis wo con Stat Hospital Course (1) Nausea, vomiting, and diarrhea: Cyndie is a 55-year-old female with a notable past medical history of resistant hypertension, left renal artery stenosis, previous hypertensive urgency/emergency, seizures, coronary artery disease, anxiety, hyperlipidemia, and frequent cannabinoid use with reported history of CHS who presented for intractable nausea, vomiting, and occasional diarrhea X1 day following her COVID-19 vaccination, subsequently found to have hypertensive urgency. She is hemodynamically stable. HYPERTENSIVE URGENCY -- suspect secondary to inability to take home antiHTNs Upon arrival, patient found to have blood pressures between 190-210/130-140s In the setting of intractable nausea and vomiting thought to proceed the hypertension, and inability to take home antihypertensives for resistant hypertension Patient also noted significant stress due to recent of her brother and social stressors now surrounding family members that he had adopted; grief reaction likely a contributing factor Currently without signs, symptoms, or diagnostics concerning for end-organ damage Restarted on home medications with Clonidine patch and 50mg metoprolol succinate at night on 12/24 --> dose increased to home dose of metoprolol succinate 100mg po BID (this dose was confirmed by patient, pharmacy) Restarted home oral antihypertensives: Amlodipine, losartan on discharge Recommend that patient continue evaluation with Dr. Maynard for [place] INTRACTABLE NAUSEA AND VOMITING Several recent admissions in similar context; nausea and vomiting that is subsequently led to a hypertensive urgency/emergency Patient has previously been suspected to have cyclical vomiting syndrome versus cannabinoid hyperemesis syndrome In the setting of her recent Covid vaccination proceeding start of symptoms, cannot rule out this as a possible etiology; could have also been trigger for CVS Work-up as follows have CT abdomen pelvis noting hepatic steatosis, mild inflammation around the adrenals that is somewhat of a nonspecific finding Glucose, LFTs, BMP, UA without significant abnormalities Received Zofran as needed Chronic Medical Conditions HLD: Continue atorvastatin CAD: HTN, HLD control as above H/O Seizure: Continue Keppra (2) Leukocytosis: (3) Seizure: (4) Posterior reversible encephalopathy syndrome (PRES): (5) Proteinuria: (6) Cyclic vomiting syndrome: (7) Hypercalcemia: (8) Cervical spondylosis with myelopathy and radiculopathy: (9) Carotid stenosis: (10) CAD (coronary artery disease): (11) Pulmonary emphysema: (12) Multiple thyroid nodules: (13) Hyperlipidemia: (14) Anxiety disorder: (15) Hx-TIA (transient ischemic attack): Total Time Total Time Spent Total Time Spent (In Minutes): <30 Discharge Plan Discharge Items Patient Disposition: Home - Self-Care Reason For Visit: CANNBINOID HYPEREMESIS SYNDROME, UNCONTROLLED HTN Discharge Diagnosis: Cannabinoid Hyperemesis Syndrome, Uncontrolled HTN. Activity: Resume your previous activity Non-emergency contact: Primary Care Provider Call non-emergency contact if: you have any medication questions and your sympto ms worsen Follow-up/Referrals: Teena Killian DO [Primary Care Provider] - 01/02/21 9:00 am Diet: Heart Healthy Addtl Attending Provider Instructions: Cyndie, You were admitted for nausea, vomiting, and diarrhea. You required hospitalizations as inability to take your daily medications from vomiting led to a dangerous elevated in your blood pressure. Marijuana use may exacerbate these symptoms and we recommend that you discontinue use to avoid return of symptoms, return to ED for need for hospitilization. Please ensure that you take care of yourself, stay well hydrated with clear fluids, ensure you get 8 hours of sleep per night, eat a well balanced diet. If you have return of symptoms that are not able to managed at home with your current medications, please return to here to [facility] ED/call 911. Please continue all previous home medications. Pending Studies at Discharge: No Stand-Alone Forms: My [facility], Smoking Cessation Medications and DC Order Prescriptions: Continued atorvastatin 80 mg tablet 80 mg PO HS Qty: 90 RF: 3 amitriptyline 25 mg tablet 25 mg PO HS Qty: 90 RF: 2 metoprolol succinate [Toprol XL] 100 mg tablet extended release 24 hr 100 mg PO BID Qty: 90 RF: 2 clopidogrel [Plavix] 75 mg tablet 75 mg PO QAM Qty: 90 RF: 1 losartan [Cozaar] 100 mg tablet 100 mg PO QAM Qty: 90 RF: 1 multivitamin Tablet 1 tab PO QAM RF: 0 promethazine 25 mg tablet 25 mg PO Q6H PRN (Reason: Nausea And Vomiting) RF: 0 capsaicin 0.025 % cream 1 applic topical QID Qty: 25 RF: 0 clonidine HCl 0.1 mg tablet 0.1 mg PO Q6 PRN (Reason: Systolic BP>180) Qty: 10 RF: 0 ondansetron 4 mg tablet,disintegrating 4 mg PO Q6H PRN (Reason: Nausea And Vomiting) Qty: 20 RF: 0 levetiracetam [Keppra] 1,000 mg tablet 1,000 mg PO BID Qty: 60 RF: 5 clonidine 0.1 mg/24 hr patch weekly 1 patch topical WK RF: 0 venlafaxine [Effexor XR] 75 mg capsule,extended release 24hr 75 mg PO QAM RF: 0 amlodipine 5 mg tablet 5 mg PO QAM RF: 0 cholecalciferol (vitamin D3) 50 mcg (2,000 unit) tablet 50 mcg PO PM RF: 0 Discharge Orders: Discharge Order (Routine); Ordered 12/25/20 Ordered By: Steve Maher Admission Data Admit Date/Time: 12/24/20 00:02 Attending Provider: Souleymane Lobato Admit Provider: Aron Drake Primary Care Provider: Teena Killian Other Providers: Aron Drake Other Interventions: Discharge Summary Assessment (RN) Last Done: 12/25/20 11:00 Supervising Physician Co-Signing Physician Notes I personally examined the patient and verified all real points of history and exam, discussed case, and agree with decision making with Dr Awan. Feeling better, feeling up to going home. Wonders if her nausea and also to a degree or spike in blood pressure related to significant stressher brother just recently of a cancer diagnosis that was very newly made prior to his passing, and Friday apparently was the day of the . She is overall feeling better and feeling up to going home. She is able to eat and drink well. She is going to continue to follow with vascular surgery as it relates to her renal artery stenosis. Vitals noted, in general she is awake and alert pleasant no distress. HEENT normocephalic atraumatic mucous membranes moist. Breathing unlabored no accessory muscle use good effort. Skin shows no rashes no pallor or icterus. Neuro without any focal deficits. Hypertensive urgencyfortunately no endorgan damage/dysfunction this time, although she has had this in the past. Blood pressures under better control. Stable for home. Continue current home regimen. Outpatient follow-up with vascular surgery. otherwise as above Resident Activity Tracking Resident Involvement: Resident Care Provided Care Provided: Adult Hospital Medicine
[2020-12-25] MEDS ORDERED: POTASSIUM CHLORIDE CRTAB 20 MEQ TABCR PO SCH (14:00)
--- NOTE | 2020-12-25 17:33 | Billing Data ---
Date of Service December 25, 2020 Coding Level of Care Code D/C Day Management <30 mins
--- NOTE | 2020-12-25 17:34 | Billing Data ---
Date of Service December 25, 2020 Coding Level of Care Code D/C Day Management <30 mins
[2020-12-27 04:02] LABS: Marijuana Quant, GCMS Urine 920 ng/mL (<5)
== END 2020-12-25 13:41 | disposition home or self-care (01) | DRG 305 ==
LOC: ED 19:58 → SUATTDRO 12-24 00:02 → INTOOBSV 12-24 00:02 → 2E 12-24 00:02

== ENCOUNTER 2020-12-27 04:16 | Observation (INO) ==
[2020-12-27] MEDS ORDERED: PROMETHAZINE 12.5 MG/50.5 ML BAG IV STA (04:33)
--- NOTE | 2020-12-27 04:48 | Emergency Department Note ---
Impression & Plan Hypertensive urgency, Nausea & vomiting, Anxiety ED Provider Note NAME: ONEL MONTOYA AGE: 55 SEX: F ARRIVES VIA: Ambulance INFORMANT: Patient ED PROVIDER(S): Kierra Worley DO CHIEF COMPLAINT: Nausea and vomiting PLAN: Disposition: Admitted to the [facility] service Condition: Fair MEDICAL DECISION MAKING: This is a 55-year-old female patient who was just discharged from the hospital after an episode of hypertensive urgency and nausea/vomiting from hyperemesis cannabinoid syndrome. The patient was doing well over the past 2 days but awoke at 1:30 AM this morning with significant nausea and vomiting and elevated blood pressure. Patient had persistent nausea, vomiting and elevated blood pressure here in the emergency department despite receiving Zofran, Lopressor, IV Phenergan, hydralazine, and Ativan here in the emergency department. Patient denies using marijuana in the past 2 weeks. Blood pressure remains uncontrolled. She states that she has been taking her antihypertensives as prescribed. [facility] for [facility]. Triage Nursing notes reviewed and agree them. Prior medical records reviewed Vital Signs: reviewed and remarkable for hypertension Differential diagnosis: Marijuana abuse; uncontrolled hypertension; anxiety; viral gastritis ER treatment provided: IV Lopressor IV Zofran IV Phenergan IV hydralazine IV Ativan Diagnostics interpreted by me: ECG: Normal sinus rhythm at a rate of 85; no ectopy or ischemic changes noted. There is no ST segment elevation Cardiac Monitoring: Normal sinus rhythm at a rate of 83 Laboratory studies: See below HPI: 55/F arrives for evaluation of nausea and vomiting. Patient awoke at 1:30 AM this morning with a headache, nausea and vomiting. Patient has a history of hypertension and hyperemesis cannabinoid use syndrome. She was just discharged from the hospital for the same. However, the patient states she has not been using marijuana in the past couple weeks. Patient has been taking her antihypertensives as directed. She took Zofran at home with no relief of the nausea and continues to vomit here in the emergency department. She denies any specific abdominal pain. She does describe a headache secondary to the vomiting. ROS: See above HPI for pertinent positives & negatives. A total of 10 systems reviewed and were otherwise negative. PAST MEDICAL HISTORY:See Below PAST SURGICAL HISTORY:See Below FAMILY HISTORY:See Below SOCIAL HISTORY:See Below HOME MEDICATIONS:See list ALLERGIES:See list VITALS:See Below PHYSICAL EXAMINATION: HEENT: Head - normocephalic and atraumatic Pupils are equal, round, and reactive to light. Extraocular eye muscles are intact, and sclera are anicteric. Nose - moist nasal mucosa without discharge. Mouth - moist buccal mucosa. Oropharynx is nonerythematous and there is no tonsillar exudate or edema noted. Neck: Supple; no JVD, nuchal rigidity, cervical lymphadenopathy, or auscultated bruits. Heart: Regular rate and rhythm. There is a normal S1 and S2 with no murmurs, clicks, or gallops appreciated. Lungs: Clear to auscultation bilaterally with no wheezes, rales, or rhonchi. Abdomen: Soft, completely nontender, nondistended, with good bowel sounds. There are no palpable pulsatile masses or hepatosplenomegaly. There is no guarding, rigidity, or rebound noted. Extremities: No evidence of cyanosis, clubbing, or edema. There are easily palpable peripheral pulses. Skin: Pale, warm and dry with good turgor and no rashes. ED COURSE: Times/Reassessments: 0420: Patient was evaluated in room C7. A complete history and physical was performed. An order was placed for continuous cardiac monitoring. Patient was in a normal sinus rhythm at a rate of 83. Twelve-lead EKG was obtained as described above. Patient was given dose of IV Zofran. I attempted to lower the blood pressure with IV Lopressor. 0550: I rechecked the patient at this time. Her blood pressure remains elevated and she is still significantly nauseated. She was given a dose of IV Phenergan as she states that she has tolerated this in the past and it has helped previously. 0640: The patient was sound asleep at this time but remains significantly hypertensive. I woke her up to check on her and she states that she was still nauseated. She immediately began to dry heave. She was given a dose of IV Ativan as a second line therapy for nausea. 0700: Patient blood pressure remains elevated. I tried administering IV hydralazine in an effort to lower the blood pressure. I discussed the case with the [facility] hospitalist Kierra Worley DO Past Med/Surg History Medical History Abnormal MRI of head Acute UTI Anxiety disorder CAD (coronary artery disease) Carotid stenosis Cervical disc disorder Congestive heart failure, acute Cyclic vomiting syndrome Diverticulitis Diverticulosis Gastritis Grief reaction Hematemesis Hematuria History of diverticulitis of colon History of gastritis History of hypotension Hot flashes due to menopause HTN (hypertension) Hx-TIA (transient ischemic attack) Hypercalcemia Hyperlipidemia Hypertension Hypertensive emergency Hypertensive urgency Hypertensive urgency Hypokalemia Marijuana dependence Multiple thyroid nodules New onset seizure NSTEMI (non-ST elevated myocardial infarction) PRES (posterior reversible encephalopathy syndrome) PRES (posterior reversible encephalopathy syndrome) Pulmonary emphysema Takotsubo cardiomyopathy Transient cerebrovascular ischemia Vitamin D deficiency Surgical History H/O cervical spine surgery History of cardiac cath History of hernia surgery History of hysterectomy History of ovarian cystectomy S/P cervical discectomy Family History Father Family history of stomach cancer Stroke Myocardial infarction Malignant neoplasm of esophagus Stomach cancer Uncle Family history of cancer Throat cancer Grandmother (Maternal) Breast cancer Bone cancer Mother No problems noted. Other No pertinent family history Denies family history of Colon cancer Ovarian cancer Prostate cancer Crohn's disease IBD (inflammatory bowel disease) Social History Smoking Status: Current every day smoker packs per day: 2; Years Smoked: 25; Second Hand Exposure: No; Hx Alcohol Use: Yes Alcohol type: beer Hx Substance Use: Yes Last Used Substance: Days (ago) Last Used Substance Other:: 1 week Substance Use Type Other:: when zofran doesn't work Preferred Language: Hebrew Communication Ability: Effective Visual Impairment: Limited Hearing Ability: Normal [employer] Required: No Beliefs That Will Affect Care: None marital status: Current Living Situation: Spouse current occupational status: employed current occupation: [employer] Feels Safe at Home: Yes Childhood Exposure to Second-Hand Smoke: Yes caffeine: Yes (1 cup of coffee) during the past year weight has: other Dental Care, Regularly: No Physical Activity Frequency: Daily Physical Activity Frequency Comment: walking Seatbelt Use: always Sunscreen Use: Yes Assistive Devices: None Allergies Allergies Allergy/AdvReac Type Severity Reaction Status Date / Time napoles Allergy Intermediate Hives Verified 12/27/20 08:11 doxycycline Allergy Intermediate hives and Verified 12/27/20 08:11 vomitting Iodinated Contrast Media Allergy Intermediate GIANT Verified 12/27/20 08:11 HIVES , VOMITTING, BODY FEELS HOT loperamide Allergy Intermediate Hives and Verified 12/27/20 08:11 vomiting meperidine Allergy Intermediate HIVES, Verified 12/27/20 08:11 VOMITING prochlorperazine Allergy Intermediate N/V, Verified 12/27/20 08:11 ITCHINESS strawberry Allergy Intermediate HIVES Verified 12/27/20 08:11 tomato Allergy Intermediate HIVES Verified 12/27/20 08:11 iodine Allergy . Verified 12/27/20 08:11 latex AdvReac Mild RASH Verified 12/27/20 08:11 Home Meds Home Medications Medication Instructions Recorded Confirmed multivitamin 1 tab PO QAM 12/16/18 12/27/20 clonidine 1 patch TOPICAL WK 11/02/20 12/27/20 amlodipine 5 mg PO QAM 12/23/20 12/27/20 cholecalciferol (vitamin D3) 50 mcg PO PM PRN 12/23/20 12/27/20 venlafaxine [Effexor XR] 75 mg PO QAM 12/23/20 12/27/20 Previous Rx's Medication Instructions Recorded atorvastatin 80 mg tablet 80 mg PO HS #90 tab 04/04/20 capsaicin 1 applic TOPICAL QID #25 g 04/09/20 clonidine HCl 0.1 mg PO Q6 PRN #10 tab 04/14/20 amitriptyline 25 mg tablet 25 mg PO HS #90 tab 08/08/20 metoprolol succinate 100 mg 100 mg PO BID #90 tab 10/09/20 tablet,extended release 24 hr clopidogrel 75 mg tablet 75 mg PO QAM #90 tab 10/16/20 levetiracetam [Keppra] 1,000 mg PO BID #60 tab 10/31/20 ondansetron 4 mg PO Q6H PRN #20 tab 10/31/20 losartan 100 mg tablet 100 mg PO QAM #90 tab 12/15/20 Results & Data (ED) Vital Signs Vital Signs - 24 hr 12/27/20 04:28 12/27/20 05:01 12/27/20 05:05 Temperature 37.1 C Temperature Source Oral Pulse Rate 83 103 H Pulse Rate [Apical] 106 H Pulse Rate from SpO2 Sensor 104 H Pulse Rhythm Regular Pulse Rhythm [Apical] Regular Pulse Strength Normal Pulse Strength [Apical] Normal Respiratory Rate 18 17 18 Respiratory Effort / Characteristics Non-Labored Spontaneous Non-Labored Spontaneous Respiratory Depth Normal Normal Blood Pressure 213/119 H 194/120 H Blood Pressure [Left Arm] 194/120 H Blood Pressure Mean 150 144 Blood Pressure Mean [Left Arm] 144 Blood Pressure Position Lying Blood Pressure Position [Left Arm] Lying Pulse Oximetry 96 94 96 Oxygen Delivery Method Room Air Room Air Room Air Sepsis Recent Fever Within 48 Hours No Sepsis New/Unexplained Change in Mental Status No Sepsis Action Taken by Nursing No Action Required 12/27/20 05:30 12/27/20 05:56 12/27/20 06:00 Temperature Temperature Source Pulse Rate 106 H 101 H 93 H Pulse Rate [Apical] Pulse Rate from SpO2 Sensor 100 H 98 H Pulse Rhythm Pulse Rhythm [Apical] Pulse Strength Pulse Strength [Apical] Respiratory Rate 13 18 Respiratory Effort / Characteristics Respiratory Depth Blood Pressure 185/127 H 185/127 H 203/108 H Blood Pressure [Left Arm] Blood Pressure Mean 146 139 Blood Pressure Mean [Left Arm] Blood Pressure Position Blood Pressure Position [Left Arm] Pulse Oximetry 97 94 Oxygen Delivery Method Room Air Room Air Sepsis Recent Fever Within 48 Hours Sepsis New/Unexplained Change in Mental Status Sepsis Action Taken by Nursing 12/27/20 06:15 12/27/20 06:29 12/27/20 06:31 Temperature Temperature Source Pulse Rate 95 H 102 H 94 H Pulse Rate [Apical] Pulse Rate from SpO2 Sensor 96 H 100 H 98 H Pulse Rhythm Pulse Rhythm [Apical] Pulse Strength Pulse Strength [Apical] Respiratory Rate 22 19 22 Respiratory Effort / Characteristics Respiratory Depth Blood Pressure 185/118 H 192/130 H Blood Pressure [Left Arm] Blood Pressure Mean 140 150 Blood Pressure Mean [Left Arm] Blood Pressure Position Blood Pressure Position [Left Arm] Pulse Oximetry 96 97 96 Oxygen Delivery Method Sepsis Recent Fever Within 48 Hours Sepsis New/Unexplained Change in Mental Status Sepsis Action Taken by Nursing 12/27/20 06:38 12/27/20 06:39 12/27/20 07:00 Temperature Temperature Source Pulse Rate 106 H 95 H Pulse Rate [Apical] 106 H Pulse Rate from SpO2 Sensor 101 H 96 H Pulse Rhythm Pulse Rhythm [Apical] Pulse Strength Pulse Strength [Apical] Respiratory Rate 15 20 18 Respiratory Effort / Characteristics Respiratory Depth Normal Blood Pressure 187/122 H Blood Pressure [Left Arm] 187/122 H Blood Pressure Mean 143 Blood Pressure Mean [Left Arm] 143 Blood Pressure Position Blood Pressure Position [Left Arm] Pulse Oximetry 96 94 95 Oxygen Delivery Method Room Air Sepsis Recent Fever Within 48 Hours Sepsis New/Unexplained Change in Mental Status Sepsis Action Taken by Nursing 12/27/20 07:01 12/27/20 07:31 12/27/20 07:34 Temperature Temperature Source Pulse Rate 105 H 119 H 110 H Pulse Rate [Apical] Pulse Rate from SpO2 Sensor 106 H 110 H Pulse Rhythm Pulse Rhythm [Apical] Pulse Strength Pulse Strength [Apical] Respiratory Rate 19 28 H 26 H Respiratory Effort / Characteristics Respiratory Depth Blood Pressure 196/110 H 209/137 H Blood Pressure [Left Arm] Blood Pressure Mean 138 161 Blood Pressure Mean [Left Arm] Blood Pressure Position Blood Pressure Position [Left Arm] Pulse Oximetry 95 96 Oxygen Delivery Method Sepsis Recent Fever Within 48 Hours Sepsis New/Unexplained Change in Mental Status Sepsis Action Taken by Nursing 12/27/20 08:00 Temperature Temperature Source Pulse Rate 117 H Pulse Rate [Apical] Pulse Rate from SpO2 Sensor 116 H Pulse Rhythm Pulse Rhythm [Apical] Pulse Strength Pulse Strength [Apical] Respiratory Rate 22 Respiratory Effort / Characteristics Respiratory Depth Blood Pressure 203/160 H Blood Pressure [Left Arm] Blood Pressure Mean 174 Blood Pressure Mean [Left Arm] Blood Pressure Position Blood Pressure Position [Left Arm] Pulse Oximetry 95 Oxygen Delivery Method Sepsis Recent Fever Within 48 Hours Sepsis New/Unexplained Change in Mental Status Sepsis Action Taken by Nursing Laboratory Data Result diagrams: 12/27/20 04:55 12/27/20 04:55 Lab Results 12/27/20 12/27/20 12/27/20 Range/Units 04:55 04:55 07:07 WBC 12.45 H (4.8-10.8) K/uL RBC 4.78 (4.2-5.4) M/uL Hgb 14.9 (12.0-16.0) g/dL Hct 43.3 (37-47) % MCV 90.6 (80-100) fL MCH 31.2 (25-34) pg MCHC 34.4 (32-36) g/dL RDW Std Deviation 43.1 (36.4-46.3) fL RDW Coeff of Jose Luis 13.1 (11.5-14.5) % Plt Count 355 (130-400) K/uL MPV 9.7 (7.4-10.4) fL Immature Gran % (Auto) 0.2 % Neut % (Auto) 82.2 % Lymph % (Auto) 12.9 % [place] % (Auto) 3.8 % Eos % (Auto) 0.5 % Baso % (Auto) 0.4 % Neut # (Auto) 10.23 H (1.4-6.5) K/uL Lymph # (Auto) 1.61 (1.2-3.4) K/uL [place] # (Auto) 0.47 (0.11-0.59) K/uL Eos # (Auto) 0.06 (0-0.5) K/uL Baso # (Auto) 0.05 (0-0.2) K/uL Immature Gran # (Auto) 0.03 H (0.00-0.02) K/uL Sodium 138 (136-145) mmol/L Potassium 3.8 D (3.5-5.1) mmol/L Chloride 106 (98-107) mmol/L Carbon Dioxide 23 (21-32) mmol/L Anion Gap 9.0 (3-11) BUN 20 H (7-18) mg/dl Creatinine 0.88 (0.6-1.2) mg/dl Est Cr Clr Drug Dosing 75.2 ml/min Est GFR ( Amer) 86.3 ml/min Est GFR (Non-Af Amer) 74.5 ml/min BUN/Creatinine Ratio 22.2 H (10-20) Glucose 169 H (70-99) mg/dl Calcium 9.3 (8.5-10.1) mg/dl Total Bilirubin 0.3 (0.2-1) mg/dl AST 22 (15-37) U/L ALT 35 (12-78) U/L Alkaline Phosphatase 101 (45-117) U/L Troponin I 0.015 (0-0.045) ng/ml Total Protein 7.9 (6.4-8.2) gm/dl Albumin 4.0 (3.4-5.0) gm/dl Globulin 3.9 (2.5-4.0) gm/dl Albumin/Globulin Ratio 1.0 (0.9-2) COVID-19 Eval Order Covid19 at [facility] SARS-CoV-2 (PCR) (Negative) 12/27/20 Range/Units 07:07 WBC (4.8-10.8) K/uL RBC (4.2-5.4) M/uL Hgb (12.0-16.0) g/dL Hct (37-47) % MCV (80-100) fL MCH (25-34) pg MCHC (32-36) g/dL RDW Std Deviation (36.4-46.3) fL RDW Coeff of Jose Luis (11.5-14.5) % Plt Count (130-400) K/uL MPV (7.4-10.4) fL Immature Gran % (Auto) % Neut % (Auto) % Lymph % (Auto) % [place] % (Auto) % Eos % (Auto) % Baso % (Auto) % Neut # (Auto) (1.4-6.5) K/uL Lymph # (Auto) (1.2-3.4) K/uL [place] # (Auto) (0.11-0.59) K/uL Eos # (Auto) (0-0.5) K/uL Baso # (Auto) (0-0.2) K/uL Immature Gran # (Auto) (0.00-0.02) K/uL Sodium (136-145) mmol/L Potassium (3.5-5.1) mmol/L Chloride (98-107) mmol/L Carbon Dioxide (21-32) mmol/L Anion Gap (3-11) BUN (7-18) mg/dl Creatinine (0.6-1.2) mg/dl Est Cr Clr Drug Dosing ml/min Est GFR ( Amer) ml/min Est GFR (Non-Af Amer) ml/min BUN/Creatinine Ratio (10-20) Glucose (70-99) mg/dl Calcium (8.5-10.1) mg/dl Total Bilirubin (0.2-1) mg/dl AST (15-37) U/L ALT (12-78) U/L Alkaline Phosphatase (45-117) U/L Troponin I (0-0.045) ng/ml Total Protein (6.4-8.2) gm/dl Albumin (3.4-5.0) gm/dl Globulin (2.5-4.0) gm/dl Albumin/Globulin Ratio (0.9-2) COVID-19 Eval Order SARS-CoV-2 (PCR) NEGATIVE (Negative) Administered Medications Acetaminophen (Acetaminophen 325 Mg Tab) 650 mg PO Q4H PRN PRN Reason: Pain or Fever Stop: 01/26/21 10:34 Last Admin: 12/27/20 12:39 Dose: 650 mg Documented by: [id number] Amlodipine Besylate (Amlodipine Besylate 5 Mg Tab) 5 mg PO QAM [facility] Stop: 01/26/21 10:59 Last Admin: 12/27/20 12:40 Dose: 5 mg Documented by: [id number] Atorvastatin Calcium (Atorvastatin 40 Mg Tab) 80 mg PO HS [facility] Stop: 01/26/21 20:59 Last Admin: 12/27/20 20:21 Dose: 80 mg Documented by: [id number] Clopidogrel Bisulfate (Clopidogrel Bisulfate 75 Mg Tab) 75 mg PO QAM [facility] Stop: 01/26/21 10:59 Last Admin: 12/27/20 12:41 Dose: 75 mg Documented by: [id number] Levetiracetam (Levetiracetam 500 Mg Tab) 1,000 mg PO BID [facility] Stop: 01/26/21 10:59 Last Admin: 12/27/20 20:22 Dose: 1,000 mg Documented by: [id number] Admin: 12/27/20 12:40 Dose: 1,000 mg Documented by: [id number] Losartan Potassium (Losartan Potassium 50 Mg Tab) 100 mg PO QAM [facility] Stop: 01/26/21 10:59 Last Admin: 12/27/20 12:41 Dose: 100 mg Documented by: [id number] Metoprolol Succinate (Metoprolol Succ 50mg Ext Rel Tab) 100 mg PO BID [facility] Stop: 01/26/21 10:59 Last Admin: 12/27/20 20:22 Dose: Not Given Documented by: [id number] Admin: 12/27/20 12:41 Dose: 100 mg Documented by: [id number] Miscellaneous (Check Clonidine Patch Placement) 1 ea N/A QS [facility] Stop: 01/26/21 10:34 Last Admin: 12/27/20 16:21 Dose: 1 ea Documented by: [id number] Admin: 12/27/20 11:15 Dose: 1 ea Documented by: [id number] Ondansetron HCl (Ondansetron Inj 2 Mg/Ml 2 Ml Vial) 4 mg IV Q6H PRN PRN Reason: Nausea Stop: 01/26/21 10:34 Last Admin: 12/27/20 12:36 Dose: 4 mg Documented by: [id number] Venlafaxine HCl (Venlafaxine Hcl Xr 75 Mg Capxr) 75 mg PO QAM [facility] Stop: 01/26/21 10:59 Last Admin: 12/27/20 12:40 Dose: 75 mg Documented by: [id number] Discontinued Medications Hydralazine HCl (Hydralazine Hcl 20 Mg/Ml Vial) 10 mg IV NOW STA Stop: 12/27/20 07:03 Last Admin: 12/27/20 07:08 Dose: 10 mg Documented by: [id number] Promethazine HCl (Phenergan) 12.5 mg in 50.5 mls @ 202 mls/hr IV NOW STA Stop: 12/27/20 04:47 Last Infusion: 12/27/20 05:07 Dose: 0 mls/hr Documented by: [id number] Admin: 12/27/20 04:50 Dose: 202 mls/hr Documented by: [id number] Lorazepam (Ativan) 0.5 mg in 1 mls @ 1 mls/min IV NOW STA Stop: 12/27/20 06:34 Last Admin: 12/27/20 06:38 Dose: 1 mls/min Documented by: [id number] Sodium Chloride (Nss 1000ml) 500 mls @ 999 mls/hr IV .Q31M ONE Stop: 12/27/20 11:32 Last Infusion: 12/27/20 12:20 Dose: 0 mls/hr Documented by: [id number] Admin: 12/27/20 11:13 Dose: 999 mls/hr Documented by: [id number] Labetalol HCl (Labetalol Hcl Iv 5 Mg/Ml 20ml) 10 mg IV NOW STA Stop: 12/27/20 08:05 Last Admin: 12/27/20 08:13 Dose: 10 mg Documented by: [id number] Cosigned by: [id number] Metoprolol Tartrate (Metoprolol Tartrate 1 Mg/Ml Vial) 5 mg IV NOW STA Stop: 12/27/20 05:54 Last Admin: 12/27/20 05:56 Dose: 5 mg Documented by: [id number] Discharge Plan Visit Data Chief Complaint: Hypertension Stated Complaint: HYPERTENSION ED Provider: Kierra Worley Discharge Problem: Hypertensive urgency, Nausea & vomiting, Anxiety Patient Disposition: Admitted As Inpatient Discharge Instructions Interventions: ED Discharge Assessment Last Done: 12/27/20 10:08 Discharge Problem: Nausea & vomiting Qualifiers: Vomiting type: unspecified Vomiting Intractability: intractable Qualified Code(s): R11.2 - Nausea with vomiting, unspecified
[2020-12-27 05:11] LABS: Basophils # (auto) 0.05 K/uL (0-0.2); Basophils % (auto) 0.4 %; Eosinophils # (auto) 0.06 K/uL (0-0.5); Eosinophils % (auto) 0.5 %; Hematocrit (blood only) 43.3 % (37-47); Hemoglobin 14.9 g/dL (12.0-16.0); Immature Granulocytes # (auto) 0.03 K/uL (0.00-0.02); Immature Granulocytes % (auto) 0.2 %; Lymphocytes # (auto) 1.61 K/uL (1.2-3.4); Lymphocytes % (auto) 12.9 %; Mean Corpuscular Hemoglobin 31.2 pg (25-34); Mean Corpuscular Hgb Conc 34.4 g/dL (32-36); Mean Corpuscular Volume 90.6 fL (80-100); Mean Platelet Volume 9.7 fL (7.4-10.4); Monocytes # (auto) 0.47 K/uL (0.11-0.59); Monocytes % (auto) 3.8 %; Neutrophils # (auto) 10.23 K/uL (1.4-6.5); Neutrophils % (auto) 82.2 %; Platelet Count 355 K/uL (130-400); RDW Coefficient of Variation 13.1 % (11.5-14.5); RDW Standard Deviation 43.1 fL (36.4-46.3); Red Blood Count 4.78 M/uL (4.2-5.4); White Blood Count 12.45 K/uL (4.8-10.8)
[2020-12-27 05:37] LABS: BUN Creatinine Ratio 22.2 (10-20); Bilirubin,Total 0.3 mg/dl (0.2-1); Calcium 9.3 mg/dl (8.5-10.1); Creatinine Clr Calc Pharmacy 75.2 ml/min; Est GFR (African American) 86.3 ml/min; Est GFR (Non-African American) 74.5 ml/min; Globulin 3.9 gm/dl (2.5-4.0); Potassium 3.8 mmol/L (3.5-5.1); Total Protein 7.9 gm/dl (6.4-8.2); Troponin I 0.015 ng/ml (0-0.045)
[2020-12-27] MEDS ORDERED: METOPROLOL TARTRATE 1 MG/ML VIAL IV STA (05:53)
[2020-12-27] MEDS ORDERED: LORazepam 0.5 MG/1 ML VIAL IV STA (06:33)
[2020-12-27] MEDS ORDERED: hydrALAZINE HCL 20 MG/ML VIAL IV STA (07:02)
[2020-12-27] MEDS ORDERED: LABETALOL HCL IV 5 MG/ML 20ML IV STA (08:04)
--- NOTE | 2020-12-27 09:42 | Medical Student H&P ---
Date of Service December 27, 2020 Assessment & Plan (1) Nausea and vomiting: Ms. Velasquez is a 55-year-old female with a past medical history of cannabinoid hyperemesis syndrome, marijuana dependence, PRES, hypertension, seizure, vitamin D deficiency, carotid stenosis, CAD, pulmonary emphysema, multi ple thyroid nodules, hyperlipidemia, diverticulosis, anxiety, TIA and cervical spondylosis with recurrent nausea vomiting and symptomatic hypertension. While the patient does have cannabinoid hyperemesis syndrome the patient does state that she has not used marijuana in the last 2 weeks; however, her marijuana level on 12/24/20 was 920. It also seems that there may be a component of stress with the recent of her brother and her disagreements with her . Headache secondary to hypertension likely secondary to vomiting her medications. Nausea & Vomiting: - Continue Zofran. Continue to monitor. - NS for potential dehydration in the setting of vomiting. - Encourage adequate fluid intake. Present on Admission?: Yes (2) HTN (hypertension): - Patient received metoprolol, hydralazine, and labetalol in the ED. BP now 107/78. Metoprolol held. - Consider increasing dose of clonidine patch to ensure adequate blood pressure control in the setting of chronic vomiting. (3) Anxiety disorder: - Scientific Research Associate patient on methods to reduce stress and conflict and foster improved mental health. - Continue home venlafaxine and amitriptyline. Present on Admission?: Yes History of Present Illness Chief Complaint: Nausea and Vomiting Primary Care Provider: Teena Killian, Ms. Velasquez is a 55-year-old female with a history of cannabinoid hyperemesis syndrome, marijuana dependence, PRES, hypertension, seizure, vitamin D deficiency, carotid stenosis, CAD, pulmonary emphysema, multiple thyroid nodules, hyperlipidemia, diverticulosis, anxiety, TIA and cervical spondylosis here today with concern of nausea and vomiting. Of note, the patient was recently discharged on 12/25/20 for the same concern. The patient states that she was woken up from sleep at 1:30AM at which time she saw a picture of her [id number] and got into a fight with her about this as he wanted them to help his mother immediately upon her discharge from the hospital. The fight was stressful and she states that she told her to move out into an apartment. It was at this same time that the nausea developed. She states between 1:30AM and 4:30AM when she presented to the ED she vomited 10 times and states that there was 'dark blood' in her emesis. She states that she took Zofran and clonidine but believes she may have vomited these pills back up. She also endorses diarrhea this morning but she is not sure how many times this happened. She states that there has not been mucus or blood in her stool. Since her discharge on Friday, she states that he has had continued brain fog but no nausea or vomiting until 1:30AM today. She was hydrating well at home, starting she drinks 6 glasses of water and 2 glasses of orange juice each day as well as a normal diet. Per patient, she has not smoked marijuana in the last two weeks as her has asked her to stop to see if her nausea will resolve. During that time, she did not have any nausea/vomiting until Friday 12/22 when she went to her brother's and had her first COVID shot. She attributes her nausea/vomiting and brain fog to this vaccination. She states that she vomited 5 times in the ED but she is no longer nauseous since receiving Zofran and has not had any episodes of emesis but has had some dry heaving. She endorses a recent-onset headache that she describes as whole- head and fluctuating. She endorse some pounding in her chest but no changes in vision. Allergies Allergy/AdvReac Type Severity Reaction Status Date / Time napoles Allergy Intermediate Hives Verified 12/27/20 08:11 doxycycline Allergy Intermediate hives and Verified 12/27/20 08:11 vomitting Iodinated Contrast Media Allergy Intermediate GIANT Verified 12/27/20 08:11 HIVES , VOMITTING, BODY FEELS HOT loperamide Allergy Intermediate Hives and Verified 12/27/20 08:11 vomiting meperidine Allergy Intermediate HIVES, Verified 12/27/20 08:11 VOMITING prochlorperazine Allergy Intermediate N/V, Verified 12/27/20 08:11 ITCHINESS strawberry Allergy Intermediate HIVES Verified 12/27/20 08:11 tomato Allergy Intermediate HIVES Verified 12/27/20 08:11 iodine Allergy . Verified 12/27/20 08:11 latex AdvReac Mild RASH Verified 12/27/20 08:11 Home Medications Medication Instructions Recorded Confirmed Type multivitamin 1 tab PO QAM 12/16/18 12/27/20 History atorvastatin 80 mg tablet 80 mg PO HS #90 tab 04/04/20 12/27/20 Rx capsaicin 1 applic TOPICAL QID #25 g 04/09/20 12/27/20 Rx clonidine HCl 0.1 mg PO Q6 PRN #10 tab 04/14/20 12/27/20 Rx amitriptyline 25 mg tablet 25 mg PO HS #90 tab 08/08/20 12/27/20 Rx metoprolol succinate 100 mg 100 mg PO BID #90 tab 10/09/20 12/27/20 Rx tablet,extended release 24 hr clopidogrel 75 mg tablet 75 mg PO QAM #90 tab 10/16/20 12/27/20 Rx levetiracetam [Keppra] 1,000 mg PO BID #60 tab 10/31/20 12/27/20 Rx ondansetron 4 mg PO Q6H PRN #20 tab 10/31/20 12/27/20 Rx clonidine 1 patch TOPICAL WK 11/02/20 12/27/20 History losartan 100 mg tablet 100 mg PO QAM #90 tab 12/15/20 12/27/20 Rx amlodipine 5 mg PO QAM 12/23/20 12/27/20 History cholecalciferol (vitamin D3) 50 mcg PO PM PRN 12/23/20 12/27/20 History venlafaxine [Effexor XR] 75 mg PO QAM 12/23/20 12/27/20 History Past Med/Surg History Medical History Abnormal MRI of head Acute UTI Anxiety disorder CAD (coronary artery disease) Carotid stenosis Cervical disc disorder Congestive heart failure, acute Cyclic vomiting syndrome Diverticulitis Diverticulosis Gastritis Grief reaction Hematemesis Hematuria History of diverticulitis of colon History of gastritis History of hypotension Hot flashes due to menopause HTN (hypertension) Hx-TIA (transient ischemic attack) Hypercalcemia Hyperlipidemia Hypertension Hypertensive emergency Hypertensive urgency Hypertensive urgency Hypokalemia Marijuana dependence Multiple thyroid nodules New onset seizure NSTEMI (non-ST elevated myocardial infarction) PRES (posterior reversible encephalopathy syndrome) PRES (posterior reversible encephalopathy syndrome) Pulmonary emphysema Takotsubo cardiomyopathy Transient cerebrovascular ischemia Vitamin D deficiency Surgical History H/O cervical spine surgery History of cardiac cath History of hernia surgery History of hysterectomy History of ovarian cystectomy S/P cervical discectomy Family History Father Family history of stomach cancer Stroke Myocardial infarction Malignant neoplasm of esophagus Stomach cancer Uncle Family history of cancer Throat cancer Grandmother (Maternal) Breast cancer Bone cancer Mother No problems noted. Other No pertinent family history Denies family history of Colon cancer Ovarian cancer Prostate cancer Crohn's disease IBD (inflammatory bowel disease) Social History Smoking Status: Current every day smoker packs per day: 2; Years Smoked: 25; Second Hand Exposure: No; Hx Alcohol Use: Yes Alcohol type: beer Hx Substance Use: Yes Last Used Substance: Days (ago) Last Used Substance Other:: 1 week Substance Use Type Other:: when zofran doesn't work Preferred Language: Irish Communication Ability: Effective Visual Impairment: Limited Hearing Ability: Normal Director Toxicology Required: No Beliefs That Will Affect Care: None marital status: Current Living Situation: Spouse current occupational status: employed 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 No acute distress. Constitutional: WD/WN, vitals as above Cardiovascular: RRR, no murmur, no edema Gastrointestinal (Abdomen): normal bowel sounds, soft, nontender, no hepatosplenomegaly Skin: no rashes, warm and dry Psychiatric: Orientation: alert and oriented x 3 Affect: + flat affect and + constricted affect Results & Data ([facility]) Vital Signs (Past 12 Hours) Vital Signs Temp Pulse Pulse Resp BP BP Pulse Ox 12/27/20 08:18 107 H 25 H 184/128 H 95 12/27/20 08:00 117 H 22 203/160 H 95 12/27/20 07:34 110 H 26 H 209/137 H 96 12/27/20 07:31 119 H 28 H 12/27/20 07:01 105 H 19 196/110 H 95 12/27/20 07:00 95 H 18 95 12/27/20 06:39 106 H 20 187/122 H 94 12/27/20 06:38 106 H 15 187/122 H 96 12/27/20 06:31 94 H 22 96 12/27/20 06:29 102 H 19 192/130 H 97 12/27/20 06:15 95 H 22 185/118 H 96 12/27/20 06:00 93 H 18 203/108 H 94 12/27/20 05:56 101 H 185/127 H 12/27/20 05:30 106 H 13 185/127 H 97 12/27/20 05:05 106 H 18 194/120 H 96 12/27/20 05:01 103 H 17 194/120 H 94 12/27/20 04:28 37.1 C 83 18 213/119 H 96 Laboratory Results 12/27/20 12/27/20 12/27/20 07:07 07:07 04:55 WBC RBC Hgb Hct MCV MCH MCHC RDW Std Deviation RDW Coeff of Jose Luis Plt Count MPV Immature Gran % (Auto) Neut % (Auto) Lymph % (Auto) [place] % (Auto) Eos % (Auto) Baso % (Auto) Neut # (Auto) Lymph # (Auto) [place] # (Auto) Eos # (Auto) Baso # (Auto) Immature Gran # (Auto) Sodium 138 Potassium 3.8 D Chloride 106 Carbon Dioxide 23 Anion Gap 9.0 BUN 20 H Creatinine 0.88 Est Cr Clr Drug Dosing 75.2 Est GFR ( Amer) 86.3 Est GFR (Non-Af Amer) 74.5 BUN/Creatinine Ratio 22.2 H Glucose 169 H Calcium 9.3 Total Bilirubin 0.3 AST 22 ALT 35 Alkaline Phosphatase 101 Troponin I 0.015 Total Protein 7.9 Albumin 4.0 Globulin 3.9 Albumin/Globulin Ratio 1.0 COVID-19 Eval Order Covid19 at [facility] SARS-CoV-2 (PCR) NEGATIVE 12/27/20 04:55 WBC 12.45 H RBC 4.78 Hgb 14.9 Hct 43.3 MCV 90.6 MCH 31.2 MCHC 34.4 RDW Std Deviation 43.1 RDW Coeff of Jose Luis 13.1 Plt Count 355 MPV 9.7 Immature Gran % (Auto) 0.2 Neut % (Auto) 82.2 Lymph % (Auto) 12.9 [place] % (Auto) 3.8 Eos % (Auto) 0.5 Baso % (Auto) 0.4 Neut # (Auto) 10.23 H Lymph # (Auto) 1.61 [place] # (Auto) 0.47 Eos # (Auto) 0.06 Baso # (Auto) 0.05 Immature Gran # (Auto) 0.03 H Sodium Potassium Chloride Carbon Dioxide Anion Gap BUN Creatinine Est Cr Clr Drug Dosing Est GFR ( Amer) Est GFR (Non-Af Amer) BUN/Creatinine Ratio Glucose Calcium Total Bilirubin AST ALT Alkaline Phosphatase Troponin I Total Protein Albumin Globulin Albumin/Globulin Ratio COVID-19 Eval Order SARS-CoV-2 (PCR) Medications Administered Current Inpatient Medications Acetaminophen (Acetaminophen 325 Mg Tab) 650 mg PO Q4H PRN PRN Reason: Pain or Fever Stop: 01/26/21 10:34 Amlodipine Besylate (Amlodipine Besylate 5 Mg Tab) 5 mg PO QAM MIKE Stop: 01/26/21 10:59 Atorvastatin Calcium (Atorvastatin 40 Mg Tab) 80 mg PO HS MIKE Stop: 01/26/21 20:59 Clonidine HCl (Clonidine Hcl 0.1 Mg Tab) 0.1 mg PO Q6 PRN PRN Reason: Systolic BP>180 Stop: 01/26/21 10:34 Clonidine HCl (Clonidine Hcl 0.1 Mg/24 Hr Transderm Sys) 1 patch TD WK MIKE Stop: 01/26/21 10:34 Clopidogrel Bisulfate (Clopidogrel Bisulfate 75 Mg Tab) 75 mg PO QAM MIKE Stop: 01/26/21 10:59 Levetiracetam (Levetiracetam 500 Mg Tab) 1,000 mg PO BID MIKE Stop: 01/26/21 10:59 Losartan Potassium (Losartan Potassium 50 Mg Tab) 100 mg PO QAM MIKE Stop: 01/26/21 10:59 Metoprolol Succinate (Metoprolol Succ 50mg Ext Rel Tab) 100 mg PO BID MIKE Stop: 01/26/21 10:59 Miscellaneous (Remove Clonidine Patch) 1 ea N/A CQWK MIKE Stop: 01/26/21 10:34 Miscellaneous (Check Clonidine Patch Placement) 1 ea N/A QS MIKE Stop: 01/26/21 10:34 Ondansetron HCl (Ondansetron Inj 2 Mg/Ml 2 Ml Vial) 4 mg IV Q6H PRN PRN Reason: Nausea Stop: 01/26/21 10:34 Polyethylene Glycol (Polyethylene (Miralax) 17 Gm Pack) 17 gm PO DAILY PRN PRN Reason: Constipation Stop: 01/26/21 10:34 Venlafaxine HCl (Venlafaxine Hcl Xr 75 Mg Capxr) 75 mg PO QAM MIKE Stop: 01/26/21 10:59 Code Status & VTE Plan VTE Prophylaxis Plan VTE Prophylaxis will be ordered: Yes Supervising Attestation I personally examined the patient and verified all real points of history and exam, discussed case, and agree with decision making with Sampson Oliveira. resting/sleeping. doesn't really wake for exam vitals noted nad heent nc at mmm lungs cta b/l no rr//w good spontaneous effort no accessory muscles. no focal neuro deficits at rest recurrent n/v and uncontrolled HTN - appears quite linearly stress-induced. supportive care, home meds. hopefully can start to guide to stress management techniques as well otherwise as above
[2020-12-27] MEDS ORDERED: ONDANSETRON INJ 2 MG/ML 2 ML VIAL IV PRN (10:35)
[2020-12-27] MEDS ORDERED: POLYETHYLENE (MIRALAX) 17 GM PACK PO PRN (10:35)
[2020-12-27] MEDS ORDERED: ACETAMINOPHEN 325 MG TAB PO PRN (10:35)
[2020-12-27] MEDS ORDERED: cloNIDine HCL 0.1 MG TAB PO PRN (10:35)
[2020-12-27] MEDS ORDERED: SODIUM CHLORIDE 0.9% 1000ML 500 ML IV ONE (11:02)
[2020-12-27] MEDS: CHECK CLONIDINE PATCH PLACEMENT SCH ×2 (11:15→16:21)
[2020-12-27] MEDS: levETIRAcetam 500 MG TAB PO SCH ×2 (12:40→20:22)
[2020-12-27] MEDS: amLODIPine BESYLATE 5 MG TAB PO SCH (12:40)
[2020-12-27] MEDS: VENLAFAXINE HCL XR 75 MG CAPXR PO SCH (12:40)
[2020-12-27] MEDS: METOPROLOL SUCC 50MG EXT REL TAB PO SCH ×2 (12:41→20:22)
[2020-12-27] MEDS: CLOPIDOGREL BISULFATE 75 MG TAB PO SCH (12:41)
[2020-12-27] MEDS: LOSARTAN POTASSIUM 50 MG TAB PO SCH (12:41)
--- NOTE | 2020-12-27 13:43 | Electrocardiogram Report ---
Test Reason : Blood Pressure : / mmHG Vent. Rate : 085 BPM Atrial Rate : 085 BPM P-R Int : 198 ms QRS Dur : 084 ms QT Int : 382 ms P-R-T Axes : 064 -24 046 degrees QTc Int : 454 ms Normal sinus rhythm with sinus arrhythmia Normal ECG When compared with ECG of 23-DEC-2020 20:05, No significant change was found Confirmed by Boo Vega ([id number]) on 12/27/2020 1:42:56 PM Referred By: REFERRED SELF Confirmed By:Boo Vega
--- NOTE | 2020-12-27 19:02 | Billing Data ---
Date of Service December 27, 2020 Coding Level of Care Code 76423 OBS Care - Level 2
[2020-12-27] MEDS ORDERED: ATORVASTATIN 40 MG TAB PO SCH (21:00)
[2020-12-28] MEDS: CHECK CLONIDINE PATCH PLACEMENT SCH ×2 (00:25→08:44)
[2020-12-28] MEDS: levETIRAcetam 500 MG TAB PO SCH (08:42)
[2020-12-28] MEDS: CLOPIDOGREL BISULFATE 75 MG TAB PO SCH (08:42)
[2020-12-28] MEDS: amLODIPine BESYLATE 5 MG TAB PO SCH (08:42)
[2020-12-28] MEDS: METOPROLOL SUCC 50MG EXT REL TAB PO SCH (08:43)
[2020-12-28] MEDS: VENLAFAXINE HCL XR 75 MG CAPXR PO SCH (08:43)
[2020-12-28] MEDS: LOSARTAN POTASSIUM 50 MG TAB PO SCH (08:43)
[2020-12-28 11:32] VITALS: TEMP 98.6; O2SAT 94
--- NOTE | 2020-12-28 14:27 | Discharge Summary ---
Date of Service December 28, 2020 Admission HPI Per Admitting Provider Ms. Velasquez is a 55-year-old female with a history of cannabinoid hyperemesis syndrome, marijuana dependence, PRES, hypertension, seizure, vitamin D deficiency, carotid stenosis, CAD, pulmonary emphysema, multiple thyroid n odules, hyperlipidemia, diverticulosis, anxiety, TIA and cervical spondylosis here today with concern of nausea and vomiting. Of note, the patient was recently discharged on 12/25/20 for the same concern. The patient states that she was woken up from sleep at 1:30AM at which time she saw a picture of her [id number] and got into a fight with her about this as he wanted them to help his mother immediately upon her discharge from the hospital. The fight was stressful and she states that she told her to move out into an apartment. It was at this same time that the nausea developed. She states between 1:30AM and 4:30AM when she presented to the ED she vomited 10 times and states that there was 'dark blood' in her emesis. She states that she took Zofran and clonidine but believes she may have vomited these pills back up. She also endorses diarrhea this morning but she is not sure how many times this happened. She states that there has not been mucus or blood in her stool. Since her discharge on Friday, she states that he has had continued brain fog but no nausea or vomiting until 1:30AM today. She was hydrating well at home, starting she drinks 6 glasses of water and 2 glasses of orange juice each day as well as a normal diet. Per patient, she has not smoked marijuana in the last two weeks as her has asked her to stop to see if her nausea will resolve. During that time, she did not have any nausea/vomiting until Friday 12/22 when she went to her brother's and had her first COVID shot. She attributes her nausea/vomiting and brain fog to this vaccination. She states that she vomited 5 times in the ED but she is no longer nauseous since receiving Zofran and has not had any episodes of emesis but has had some dry heaving. She endorses a recent-onset headache that she describes as whole- head and fluctuating. She endorse some pounding in her chest but no changes in vision. Admission Exam Per Admitting Provider Physical Exam: Patient resting comfortably on exam. No acute distress. Constitutional: WD/WN, vitals as above Cardiovascular: RRR, no murmur, no edema Gastrointestinal (Abdomen): normal bowel sounds, soft, nontender, no hepatosplenomegaly Skin: no rashes, warm and dry Psychiatric: Orientation: alert and oriented x 3 Affect: + flat affect and + constricted affect Principal Diagnosis nausea and vomiting Discharge Exam GENERAL: No acute distress. Well developed and well nourished. Vital signs reviewed as above. A/O x3. EYES: EOMI. Anicteric sclerae. HENT: Moist mucous membranes. No pharyngeal erythema or exudates. RESPIRATORY: Clear to auscultation bilaterally. No wheezing, rales, or rhonchi. CARDIOVASCULAR: Regular rate and rhythm. No murmurs. ABDOMEN: Soft, non-tender and non-distended.Normal bowel sounds. EXTREMITIES: No edema. Non-tender. SKIN: Warm, dry. No rashes or lesions. NEUROLOGIC: No focal neurological deficits. CN II-XII grossly intact, but not individually tested. PSYCHIATRIC: Cooperative. Appropriate mood and affect. Discharge Data Allergies Allergy/AdvReac Type Severity Reaction Status Date / Time napoles Allergy Intermediate Hives Verified 12/27/20 08:11 doxycycline Allergy Intermediate hives and Verified 12/27/20 08:11 vomitting Iodinated Contrast Media Allergy Intermediate GIANT Verified 12/27/20 08:11 HIVES , VOMITTING, BODY FEELS HOT loperamide Allergy Intermediate Hives and Verified 12/27/20 08:11 vomiting meperidine Allergy Intermediate HIVES, Verified 12/27/20 08:11 VOMITING prochlorperazine Allergy Intermediate N/V, Verified 12/27/20 08:11 ITCHINESS strawberry Allergy Intermediate HIVES Verified 12/27/20 08:11 tomato Allergy Intermediate HIVES Verified 12/27/20 08:11 iodine Allergy . Verified 12/27/20 08:11 latex AdvReac Mild RASH Verified 12/27/20 08:11 Consultations 12/27/20 07:08 ED Decision to Admit Stat Hospital Course (1) Nausea and vomiting: Ms. Velasquez is a 55-year-old female with a past medical history of cannabinoid hyperemesis syndrome, marijuana dependence, PRES, hypertension, seizure, vitamin D deficiency, carotid stenosis, CAD, pulmonary emphysema, multiple thyroid nodules, hyperlipidemia, diverticulosis, anxiety, TIA and cervical spondylosis with recurrent nausea vomiting and symptomatic hypertension. While the patient does have cannabinoid hyperemesis syndrome the patient does state that she has not used marijuana in the last 2 weeks; however, her marijuana level on 12/24/20 was 920. It also seems that there may be a component of stress with the recent of her brother and her disagreements with her . She also presented with a headache secondary to hypertension likely secondary to vomiting her medications. She did well during this hospitalization. Nausea & Vomiting - Both the n/v and HTN appear to be very closely related to increased stress (see anxiety below) - Received Zofran and NS for potential dehydration in the setting of vomiting. - Encourage adequate fluid intake of 60-80 oz. of water/day. HTN (hypertension) - Patient received metoprolol, hydralazine, and labetalol in the ED. BP then 107 /78 on admission. Metoprolol held. - Patient remained normotensive (and at times somewhat hyptoensive) during admission. - Do suspect a component of medication non-compliance as BPs are well controlled on home medication regimen (and even when some home meds e.g. metoprolol are held) during hospitalizations. There can also be a relationship between anxiety outside of the hospital and grief reaction while dealing with the loss of her brother negatively impacting her blood pressure. Anxiety disorder: - Catalyst Operator patient on methods to reduce stress and conflict and foster improved mental health. - Encouraged patient to work on strategies to reduce stress, especially during periods where she feels like she is getting into "an episode" of increased stress that can lead to HTN, n/v. Patient identified strategies that bring her alma including playing with her nieces/family, spending time with neighbors, and listening to music. Encrouaged her to work on these self-care techniques. - Continue home venlafaxine and amitriptyline. (2) HTN (hypertension): (3) Anxiety: Total Time Total Time Spent Total Time Spent (In Minutes): <30 Discharge Plan Discharge Items Patient Disposition: Home - Self-Care Reason For Visit: INTRACTABLE N/V Discharge Diagnosis: nausea Condition on Discharge: Good Activity: Resume your previous activity Non-emergency contact: Primary Care Provider Call non-emergency contact if: you have any medication questions Follow-up/Referrals: Teena Killian, DO [Primary Care Provider] - Diet: Heart Healthy Addtl Attending Provider Instructions: Cyndie, you were admitted for recurrent nausea/vomiting and high blood pressures. You are doing well at this point and ready for discharge home. As we discussed with you, it is important that you care for yourself and work on decreasing stress. We encourage you to use the stress-relief techniques that you reported including listening to music and enjoying time with your family/nieces. You should continue all your home medications, including your anti-hypertensives, as prescribed. Stay well hydrated and drink at least 60 oz. of water daily. Please follow up with your primary care doctor early next week. Pending Studies at Discharge: No Stand-Alone Forms: [facility], Smoking Cessation Medications and DC Order Prescriptions: Continued atorvastatin 80 mg tablet 80 mg PO HS Qty: 90 RF: 3 amitriptyline 25 mg tablet 25 mg PO HS Qty: 90 RF: 2 metoprolol succinate [Toprol XL] 100 mg tablet extended release 24 hr 100 mg PO BID Qty: 90 RF: 2 clopidogrel [Plavix] 75 mg tablet 75 mg PO QAM Qty: 90 RF: 1 losartan [Cozaar] 100 mg tablet 100 mg PO QAM Qty: 90 RF: 1 multivitamin Tablet 1 tab PO QAM RF: 0 capsaicin 0.025 % cream 1 applic topical QID Qty: 25 RF: 0 clonidine HCl 0.1 mg tablet 0.1 mg PO Q6 PRN (Reason: Systolic BP>180) Qty: 10 RF: 0 ondansetron 4 mg tablet,disintegrating 4 mg PO Q6H PRN (Reason: Nausea And Vomiting) Qty: 20 RF: 0 levetiracetam [Keppra] 1,000 mg tablet 1,000 mg PO BID Qty: 60 RF: 5 clonidine 0.1 mg/24 hr patch weekly 1 patch topical WK RF: 0 venlafaxine [Effexor XR] 75 mg capsule,extended release 24hr 75 mg PO QAM RF: 0 amlodipine 5 mg tablet 5 mg PO QAM RF: 0 cholecalciferol (vitamin D3) 50 mcg (2,000 unit) tablet 50 mcg PO PM PRN (Reason: Pain) RF: 0 Discharge Orders: Discharge Order (Routine); Ordered 12/28/20 Ordered By: Mami Awan Admission Data Admit Date/Time: 12/27/20 08:10 Attending Provider: Souleymane Lobato Admit Provider: Steve Maher Primary Care Provider: Teena Killian Other Providers: Trevor Bojorquez Other Interventions: Discharge Summary Assessment (RN) Last Done: 12/28/20 14:50 Supervising Physician Co-Signing Physician Notes I personally examined the patient and verified all real points of history and exam, discussed case, and agree with decision making with Dr Aawn. Feeling better and very much wants to go home. Discussed stress management techniques, discussed medications. She does feel safe at home. Notes that her argument with her the night of admission was probably only the second time they have ever argued in their marriage, he is very supportive. She is feeling better and eating and drinking okay. Vitals noted, in general she is awake and alert pleasant no distress. HEENT normocephalic atraumatic mucous membranes moist. Breathing unlabored no accessory muscle use good effort. Skin shows no rashes no pallor or icterus. Neuro without focal deficits. Intractable nausea and vomiting and uncontrolled hypertensionlikely related to stress, stress seems to trigger her nausea and vomitingand from there she is not able to tolerate her medicines. Now doing well, continue home meds (given her lower and blood pressures, I wonder if she may be sometimes misses doses at homecontinue to follow-up closely as an outpatientdiscussed stress management techniques as well. Stable for home. Resident Activity Tracking Resident Involvement: Resident Care Provided Care Provided: Adult Hospital Medicine
[2020-12-28 14:54] VITALS: BP 111/78; PULSE 78
--- NOTE | 2020-12-28 19:53 | Billing Data ---
Date of Service December 28, 2020 Coding Level of Care Code 09145 OBS Care - Discharge
[2020-12-31] MEDS ORDERED: cloNIDine HCL 0.1 MG/24 HR TRANSDERM SYS TD SCH (09:00)
== END 2020-12-28 16:14 | disposition home or self-care (01) ==
LOC: ED 04:16 → 2N 04:16

== ENCOUNTER 2021-09-18 05:42 | Inpatient (IN) ==
--- NOTE | 2021-09-12 10:19 | PAT Medication Instructions ---
Medication Instructions Date of Service September 12, 2021 Home Medications Medication Instructions Recorded cholecalciferol (vitamin D3) 50 2,000 unit PO PM #90 tab 01/02/21 mcg (2,000 unit) tablet metoprolol succinate 100 mg 50 mg PO BID #180 tab 03/28/21 tablet,extended release 24 hr (Toprol XL) amitriptyline 25 mg tablet 25 mg PO HS #90 tab 05/02/21 clonidine HCl 0.1 mg tablet 0.1 mg PO QAM #90 tab 05/02/21 clopidogrel 75 mg tablet (Plavix) 75 mg PO QAM #90 tab 05/02/21 levetiracetam 1,000 mg tablet 1,000 mg PO BID #180 tab 05/02/21 (Keppra) ondansetron HCl 4 mg tablet 4 mg PO Q8H PRN #30 tab 06/27/21 venlafaxine 150 mg 150 mg PO QAM #90 cap 06/27/21 capsule,extended release 24 hr multivitamin 1 tab PO QAM amlodipine 5 mg tablet 5 mg PO UD cholecalciferol (vitamin D3) 50 mcg (2,000 unit) tablet 2,000 unit PO PM metoprolol succinate 100 mg tablet,extended release 24 hr (Toprol XL) 50 mg PO BID losartan 100 mg tablet (Cozaar) 50 mg PO QAM amitriptyline 25 mg tablet 25 mg PO HS clonidine HCl 0.1 mg tablet 0.1 mg PO QAM clopidogrel 75 mg tablet (Plavix) 75 mg PO QAM levetiracetam 1,000 mg tablet (Keppra) 1,000 mg PO BID ondansetron HCl 4 mg tablet 4 mg PO Q8H PRN venlafaxine 150 mg capsule,extended release 24 hr 150 mg PO QAM rosuvastatin 40 mg tablet (Crestor) 40 mg PO HS Continue as directed ondansetron HCl 4 mg tablet 4 mg PO Q8H PRN(if needed) ASK your prescriber and surgeon clopidogrel 75 mg tablet (Plavix) 75 mg PO QAM DO NOT take the morning of surgery multivitamin 1 tab PO QAM losartan 100 mg tablet (Cozaar) 50 mg PO QAM Take morning of surgery With a small sip of water, OTHERWISE NOTHING TO EAT OR DRINK AFTER MIDNIGHT: amlodipine 5 mg tablet 5 mg PO UD metoprolol succinate 100 mg tablet,extended release 24 hr (Toprol XL) 50 mg PO BID clonidine HCl 0.1 mg tablet 0.1 mg PO QAM levetiracetam 1,000 mg tablet (Keppra) 1,000 mg PO BID venlafaxine 150 mg capsule,extended release 24 hr 150 mg PO QAM Take evening before surgery cholecalciferol (vitamin D3) 50 mcg (2,000 unit) tablet 2,000 unit PO PM metoprolol succinate 100 mg tablet,extended release 24 hr (Toprol XL) 50 mg PO BID amitriptyline 25 mg tablet 25 mg PO HS levetiracetam 1,000 mg tablet (Keppra) 1,000 mg PO BID rosuvastatin 40 mg tablet (Crestor) 40 mg PO HS Other Notes If you have any questions please call us at [phone] or [phone] or [phone] or [phone]
--- NOTE | 2021-09-14 10:56 | Anesthesiology Consultation ---
Date of Service September 14, 2021 Assessment & Plan (1) Encounter for pre-operative examination: - check BSG am DOS. - difficult IV stick per pt, no difficulty per PAT tech. - cardiology pre-op clearance 09/10/2021: "...follow up of htn, chest discomfort, history of stress cardiomyopathy, and moderate CAD...about the same as when I last saw her...continues to have sob with exertion...CAD, last cath 2016 showing mild/mod non obstructive CAD with worst lesion 40% RCA. History of Takotsubo event in 2017 with EF of 40%, now with normal EF of 60% on last echo 10/22 and normal LVF w/o WMA. HTN with history of multiple hospitalizations for hypertensive urgency. Secondary causes of hypertension ruled out: renin/sharon normal, plasma metanephrines normal, TSH normal, mild renal artery stenosis withou tindication fo rintervention per vasculr [sic] surgery. lower extremity claudication for aorto-bifem bypass 04/24/21. History of seizures secondary to PRES. Diagnosed with REBECCA...not appear that she has started treatment...BMP was normal so her symptoms do not appear to be heart failure related...proceed with a dobutamine stress test on Friday...surgery with Dr. Maynard is scheduled for the ..." "...stress test was negative...can proceed with her vascular procedure without further testing..." - PCP office visit 06/27/2021 [place]: "...Complex past medical history of hypertension which is complicated by renal artery stenosis. Follows with Dr. Maynard...Hypertension. Checking blood pressure daily. 120/80's. PAD/lower ex tremity claudication...Plan to have vascular surg...Atypical Chest pain Following with Dr. Iraheta [sic]...Cyclic vomiting- comes and goes. No vomiting; contributes to not eating spiced foods or tomato based foods. No relief with Omeprazole. Taking Tagamet as needed with some relief...Hypokalemia. Noted 3.1 01/01/21. obstructive sleep apnea. sleep study noted 01/04/2021 - moderate to severe sleep apnea. Hx of Seizure secondary to PRES. Self reports last seizure was 08/2019. Cont to take Keppra..." - vascular surgery 03/26/2021: "...left renal artery stenosis was deemed to be so mild such that we would not intervene at this time...will need an aortobifemoral bypass...after she is seen by Cardiology, we will schedule her for aortobifemoral bypass..." - COVID screening: Per assessment on 09/14/2021: Travel screen negative, no known COVID-19 positive contacts or current COVID-19 related symptoms in past 2 weeks. Patient vaccinated. Preop COVID testing at [facility] appt. Chart Review Chart Review: Acceptable Risk for Surgery and Patient seen in Pre Admission Testing Teaching & Discussion Pre-Anesthesia Teaching/Discussion Notes: Instructed NPO after midnight before surgery, except medications with 15 cc of water. Medication instructions provided according to the [facility] guidelines. History Surgery Operation Date: 09/18/21 08:00 Proposed Procedures p Aorto-Bifemoral Bypass - Alex Maynard MD Height/Weight Height: 5 ft 6 in Weight: 92.3 kg Allergies Allergy/AdvReac Type Severity Reaction Status Date / Time napoles Allergy Unknown Hives Verified 09/11/21 11:37 (green/hartman beans) doxycycline Allergy Unknown Hives, Verified 09/11/21 11:37 vomiting Iodinated Contrast Media Allergy Unknown Large Verified 09/11/21 11:37 hives, vomiting, "feeling hot" iodine Allergy Unknown Hives, Verified 09/11/21 11:37 vomiting latex Allergy Unknown Rash Verified 09/11/21 11:37 loperamide Allergy Unknown Hives, Verified 09/11/21 11:37 vomiting meperidine Allergy Unknown Hives, Verified 09/11/21 11:37 vomiting prochlorperazine Allergy Unknown N/V, Verified 09/11/21 11:37 itchiness strawberry Allergy Unknown Hives Verified 09/11/21 11:37 tomato Allergy Unknown Hives Verified 09/11/21 11:37 Medications Home Medications Medication Instructions Recorded Confirmed Last Taken multivitamin 1 tab PO QAM 12/16/18 09/11/21 01/01/21 amlodipine 5 mg tablet 5 mg PO UD 12/23/20 09/11/21 01/01/21 cholecalciferol (vitamin D3) 50 2,000 unit PO PM #90 tab 01/02/21 09/11/21 Unknown mcg (2,000 unit) tablet metoprolol succinate 100 mg 50 mg PO BID #180 tab 03/28/21 09/11/21 Unknown tablet,extended release 24 hr (Toprol XL) losartan 100 mg tablet (Cozaar) 50 mg PO QAM 04/16/21 09/11/21 Unknown amitriptyline 25 mg tablet 25 mg PO HS #90 tab 05/02/21 09/11/21 Unknown clonidine HCl 0.1 mg tablet 0.1 mg PO QAM #90 tab 05/02/21 09/11/21 Unknown clopidogrel 75 mg tablet (Plavix) 75 mg PO QAM #90 tab 05/02/21 09/11/21 Unknown levetiracetam 1,000 mg tablet 1,000 mg PO BID #180 tab 05/02/21 09/11/21 Unknown (Keppra) ondansetron HCl 4 mg tablet 4 mg PO Q8H PRN #30 tab 06/27/21 09/11/21 Unknown venlafaxine 150 mg 150 mg PO QAM #90 cap 06/27/21 09/11/21 Unknown capsule,extended release 24 hr rosuvastatin 40 mg tablet (Crestor) 40 mg PO HS 09/11/21 09/11/21 Unknown Past Medical History Medical History (Updated 09/14/21 @ 15:00 by Vani Robins PA-C) Anxiety disorder CAD (coronary artery disease) Mild-moderate non-obstructive Carotid stenosis < 50% stenosis B/L per US 12/16/18 Cervical disc disorder FULL ROM Cyclic vomiting syndrome no GI pathology on EGD, US, CT of abd/pelvis, celiac testing and GES per 04/2020 GI consult: biliary w/u and upper GI study recommended (upper GI study neg per d/c summary), cannabis cessation, continue Protonix and prn Zofran Depression GERD (gastroesophageal reflux disease) History of diverticulitis of colon HTN (hypertension) h/o multiple hypertensive urgency episodes, renal artery stenosis, following with cardiology and vascular surgery Hyperlipidemia Multiple thyroid nodules New onset seizure 07/17/2019 r/t hypertensive emergency -> encephalopathy. last seizure was ~Spring/Summer 2019 per pt NSTEMI (non-ST elevated myocardial infarction) 2017 [facility]. Cath performed showed mild to moderate non-obstructive CAD. 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 Maynard Prediabetes PRES (posterior reversible encephalopathy syndrome) has since caused seizures that started in 2018. following with PCP, last seizure per pt 08/2019 per PCP records Pulmonary emphysema Renal artery stenosis following with Dr Maynard Takotsubo cardiomyopathy 2017. Admitted [facility], full cardiac workup including cath. EF at the time 40%, now resolved to 60-65% on echo 2018. Transient cerebrovascular ischemia pt unaware and denies Patient denies h/o blood clots or blood transfusions. Exercise / Class Metabolic Activity III < 4 Walking/Shop/Light housework (SOB with activity, limitations d/t claudication; denies change or worsening since cardio consult/stress test completed earlier this week) Past Family History Family History Father Family history of stomach cancer Malignant neoplasm of esophagus Stomach cancer Myocardial infarction Stroke Uncle Throat cancer Family history of cancer FAMILY HISTORY OF CANCER - UNCLE - [place] FAMILY HISTORY OF CANCER - AUNT - ? KIND Grandmother (Maternal) Bone cancer Breast cancer Mother No problems noted. Brother Lung cancer Other Family history of diabetes mellitus No family history of adverse response to anesthesia No pertinent family history Denies family history of Colon cancer Ovarian cancer Prostate cancer Crohn's disease IBD (inflammatory bowel disease) Past Surgical History Surgical History H/O cervical spine surgery ACDF C4-7 Dr. [place]: Grade 1 view, Bojorquez#2 and ETT#7.5 atraumatic x 1. No issues per anesthesia postop progress note. History of cardiac cath [place] - NO STENTS (per pt report, this cath not noted in cardiology notes) 2017, NSTEMI. NO INTERVENTION. History of esophagogastroduodenoscopy (EGD) History of hernia surgery right inguinal hernia repair History of hysterectomy History of ovarian cystectomy Past Anesthesia History No Hx of Anesthesia Complications and No Family Hx of Anesthesia Complications History of PONV No Hx of PONV and No Hx of Motion Sickness Social History Smoking Status: Former smoker tobacco type: cigarettes Do You Dip or Chew Tobacco: No Smoking End Date: 10-12 YR AGO Hx Alcohol Use: Yes Alcohol type: beer alcohol intake frequency: holidays/special occasions only Hx Substance Use: Yes substance use type: marijuana Substance Use Type Other:: [facility] for pain-advised Review of Systems Patient denies chest pain, fever, chills, cough, wheezing, or palpitations. Physical Exam Vital Signs Vitals BP 125/87 P 80 TEMP 98.7 SP02 96% on RA RESP 17 Physical Full cervical extension range of motion without pain Full TMJ range of motion TMD 3.5 finger breaths Mallampati Score 3 Dentition: edentulous Lungs: normal respiratory effort. Clear throughout to auscultation, no adventitious breath sounds Cardiac: regular rate and rhythm, no murmurs noted Carotid arteries: negative bruit bilat Extremities: no distal extremity edema Lab Results Anesthesia Preop Results Results Anesthesia Widget: WBC 8.15 K/uL (4.8-10.8) 09/14/21 Hgb 15.4 g/dL (12.0-16.0) 09/14/21 Hct 47.2 % (37-47) H 09/14/21 Plt 286 K/uL (130-400) 09/14/21 Na 140 mmol/L (136-145) 09/14/21 K 4.4 mmol/L (3.5-5.1) 09/14/21 Cl 108 mmol/L (98-107) H 09/14/21 CO2 23 mmol/L (21-32) 09/14/21 BUN 15 mg/dl (6-23) 09/14/21 Creat 0.81 mg/dl (0.6-1.2) 09/14/21 Glucose Level 115 mg/dl (70-99(Fasting)) H 09/14/21 PT 9.4 Seconds (9.0-12.0) 09/14/21 PTT 24.5 Seconds (21.0-31.0) 09/14/21 INR 0.9 (0.9-1.1) 09/14/21 Blood Type O Positive 09/14/21 Antibody Screen NEGATIVE 09/14/21 Testing Electrocardiogram Date: 09/14/21 NSR, rate 81 bpm Left axis deviation Chest X-Ray Date: 09/14/21 FINDINGS: Lung volumes are normal. Lungs are clear. There is no pneumothorax or pleural effusion. Cardiac size is normal. Mediastinal contours are normal. There is no evidence for pulmonary edema. Postoperative findings within the cervical spine and an old right seventh rib fracture incidentally noted. IMPRESSION: No acute cardiopulmonary findings. Echocardiogram Date: 10/30/20 EF 60-65% Normal left ventricular systolic function Borderline cLVH No regional wall motion abnormalities No significant valvular pathology Stress Test Date: 09/12/21 dobutamine negative for ischemia at 90% MPHR EF 65% no regional wall motion abnormalities at rest Cardiac Catheterization Date: 06/28/17 Mild to moderate non-obstructive coronary artery disease 40% mid RCA disease LV wall motion abnormalities consistent with Takotsubo's cardiomyopathy Other Testing Abdomen/pelvis CT 04/23/2021 Lung bases: The heart is normal in size and without pericardial effusion. The lung bases are clear noting dependent atelectasis. There is a small hiatal hernia. Liver: The unenhanced liver is enlarged, measuring 20.9 cm in length. The liver demonstrates diffusely diminished attenuation consistent with hepatic steatosis. Fatty sparing is seen adjacent to gallbladder fossa. There is no intrahepatic biliary ductal dilatation. Gallbladder: Unremarkable. Spleen: Normal in size and attenuation. Pancreas: Unremarkable. Adrenal glands: Unremarkable. Kidneys: The unenhanced kidneys are normal in size and without hydronephrosis. There are no renal calculi identified. There is no evidence of contour deforming renal mass lesion. Abdominal vasculature: The abdominal aorta is normal in course and caliber noting moderate to advanced atherosclerotic calcification. Bowel: There is moderate to advanced colonic diverticulosis without CT evidence of acute diverticulitis. No obstruction is identified. The appendix is well- visualized and normal. Peritoneum: There is no intraperitoneal free air or abdominal ascites. Lymphadenopathy: None. Pelvic viscera: The bladder is normal as visualized. The uterus is surgically absent. No adnexal lesion is seen. There is a fat-containing left inguinal hernia. Skeletal structures: No lytic or blastic lesions are seen. LUMBAR SPINE: Vertebral body height and alignment are maintained throughout the lumbar spine. The transverse and spinous processes are intact. There is no evidence of spondylolysis. Small anterior and lateral marginal osteophytes are seen throughout. There is mild to moderate disc space narrowing at L4-L5 with associated vacuum phenomenon and endplate sclerosis. Mild disc space narrowing is seen at the remaining lumbar levels. Are large left lateral disc extrusions at L2-L3 and L3-L4. These likely impinge on the exiting left L2 and L3 nerve roots. Broad-based posterior disc bulge is noted at L4-L5. Findings suggest previous right hemilaminectomy at L5. The paraspinous soft tissues are within normal limits. IMPRESSION: 1. There are no acute infectious or inflammatory findings in the abdomen or pelvis. 2. No acute bony abnormality is seen involving the lumbar spine. 3. Lumbar disc disease as above. This is similar to the 01/02/2021 examination. 4. Hepatomegaly and hepatic steatosis. 5. Moderate to advanced colonic diverticulosis without CT evidence of acute diverticulitis. 6. Additional findings as above. Aorta w/runoff CTA 02/19/2021 IMPRESSION: 1. Bilateral external iliac artery occlusion with common femoral artery reconstitution 2. No evidence of hemodynamically significant superficial femoral or popliteal artery stenosis 3. Three-vessel runoff bilaterally to the ankle 4. No evidence of celiac, superior mesenteric or renal artery stenosis Brain MRI 12/12/2020 IMPRESSION: 1. No acute intracranial abnormality is identified on today's examination. 2. Foci of signal abnormality within the posterior parietal lobes at the vertex seen on 10/29/2020 have resolved. This likely represented PRES. 3. Nonspecific white matter abnormality is similar to prior examination. Top differential considerations remain age advanced microangiopathic change versus a demyelinating process.
[2021-09-18] MEDS ORDERED: ceFAZolin 2000MG 2,000 MG/15 ML SYR IV SCH (06:00)
[2021-09-18] MEDS: LACTATED RINGER'S 1,000 ML IV SCH ×3 (06:51→23:00)
[2021-09-18] MEDS ORDERED: fentaNYL citrate 100 MCG/2 ML VIAL ONE ×3 (06:55→12:10)
[2021-09-18] MEDS ORDERED: ONDANSETRON INJ 2 MG/ML 2 ML VIAL ONE ×2 (06:55→16:36)
[2021-09-18] MEDS ORDERED: LIDOCAINE 2% 2 ML VIAL/AMP(20MG/ML) INFIL ONE (06:55)
[2021-09-18] MEDS ORDERED: ROCURONIUM BROMIDE 10 MG/ML 5 ML VIAL IV ONE (06:55)
[2021-09-18] MEDS ORDERED: MIDAZOLAM HCL 1 MG/ML 2ML VIAL ONE (06:55)
[2021-09-18] MEDS ORDERED: PROPOFOL IV EMULSION 10 MG/ML 20 ML VIAL IV ONE ×2 (06:55→09:07)
[2021-09-18] MEDS ORDERED: KETAMINE 50 MG/5 ML SYRINGE ONE (07:15)
[2021-09-18] MEDS ORDERED: HEPARIN (PORCINE) 1000 UNIT/ML 10 ML (CATH LAB USE ONLY) ONE ×2 (07:29→07:31)
[2021-09-18] MEDS ORDERED: GELATIN SPONGE SZ 100 ONE (07:30)
[2021-09-18] MEDS ORDERED: ceFAZolin 330 MG/ML 1 GM VIAL ONE (07:30)
[2021-09-18] MEDS ORDERED: THROMBIN FOR SOLN 20000 UNIT KIT ONE (07:31)
[2021-09-18] MEDS ORDERED: PAPAVERINE HCL INJ 30 MG/ML 2 ML VIAL ONE (07:31)
[2021-09-18] MEDS ORDERED: PROMETHAZINE HCL 12.5 MG in SODIUM CHLORIDE 0.9% 50 ML IV PRN (07:32)
[2021-09-18] MEDS ORDERED: ATROPINE SULFATE 0.1 MG/ML 10ML SYR IV PRN (07:32)
[2021-09-18] MEDS ORDERED: ONDANSETRON INJ 2 MG/ML 2 ML VIAL IV PRN (07:32)
[2021-09-18] MEDS ORDERED: ePHEDrine sulfate 50 MG/ML AMP IV PRN (07:32)
[2021-09-18] MEDS ORDERED: HYDROmorphone INJ 2 MG/ML SYR/VIAL IV PRN (07:32)
[2021-09-18] MEDS ORDERED: fentaNYL citrate 100 MCG/2 ML VIAL IV PRN (07:32)
--- NOTE | 2021-09-18 07:41 | History & Physical Report ---
Date of Service September 18, 2021 History of Present Illness Primary Care Provider: Teena Killian DO Date of Service September 18, 2021 Assessment & Plan (1) Aortoiliac occlusive disease: Plan: Patient is admitted for an aortobifemoral bypass. I have discussed the risks options and benefits of the procedure with the patient. The patient understands the risks options and benefits and agrees to the procedure. Admission and Anticipated Discharge Date Admission Date: September 14, 2021 History of Present Illness Chief Complaint: Bilateral iliac artery occlusions Primary Care Provider: NO PCP Ms. Velasquez is a 55-year-old female who presents for followup, having undergone an MRA of the abdomen to better evaluate left renal artery stenosis. 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 The patient reports to clinic today with no complaints related to her renal artery stenosis. She denies any issues with urination and otherwise states that her hypertension has been managed relatively well recently. Upon review of the MRA in clinic, there was noted to be a small area of the left renal artery, which is perhaps mildly stenotic; however, this does not appear to be generating any symptoms. In addition to the renal artery stenosis, she also notes significant restrictions on her ability to ambulate. She states that she has been experiencing claudication symptoms that limit her to walking less than 1 block at a time. She states that she frequently has to wake up from sleep and sit at the edge of the bed in order to help with the cramping and pain that she develops overnight. 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 She states that when she used to be able to work, she used to have to take frequent breaks given the cramping and pain that she was experiencing in her bilateral lower extremities. She was found to have bilateral iliac artery occlusions on CTA. She denies any fevers, chills, nausea, vomiting, shortness of breath or chest pain at this visit. Allergies Allergy/AdvReac Type Severity Reaction Status Date / Time Iodinated Contrast Media Allergy Intermediate Rash Verified 09/14/21 08:26 Home Medications Medication Instructions Recorded Confirmed Type acetaminophen 650 mg 650 mg PO Q4 PRN 09/14/21 09/14/21 History tablet,extended release (Arthritis Pain Relief (acetaminophen) ER)C clindamycin HCl 300 mg capsule 300 mg PO Q6H 09/14/21 09/14/21 History dorzolamide 2 % eye drops 1 drp OPB BID 09/14/21 09/14/21 Histo ry lisinopril 5 mg tablet 5 mg PO QAM 09/14/21 09/14/21 History ondansetron HCl 4 mg tablet 4 mg PO Q6H PRN 09/14/21 09/14/21 His tory timolol maleate 0.25 % eye drops 1 drp OPB QAM 09/14/21 2 History Past Med/Surg History Social History Smoking Status: Never smoker Second Hand Exposure: No; Do You Dip or Chew Tobacco: No; Tobacco Cessation Education Requested by Patient: No Hx Alcohol Use: No Hx Substance Use: No Preferred Language: Bots[place] Communication Ability: Effective Diagnostic Imaging Manager Required: Yes Beliefs That Will Affect Care: None Current Living Situation: Family Current Living Situation Comment: lives with son Feels Safe at Home: No Is there a partner from a previous relationship who is making you feel unsafe now?: No Any Concerns about Your Family Situation: No Would You Like to Speak to Someone About Your Situation: No Assistive Devices: Walker Review of Systems All systems reviewed & are unremarkable except as noted in HPI & below Physical Exam Physical Exam: The patient is in no acute distress. In the office today, her heart rate is 67 beats per minute, she is saturating 95% on room air. Her blood pressure is 116 systolic over 78 diastolic. She moves about the room without assistance. Her neck is supple. Her trachea is midline. No carotid bruits can be auscultated. Her heart is in regular rate and rhythm with no extraneous heart sounds, her lungs are clear to auscultation bilaterally. Her abdomen is soft, nontender, nondistended. On cardiovascular exam, she has bilateral upper extremity pulses palpable. On lower extremity exam, she is noted to have a nonpalpable dorsalis pedis pulses, posterior tibial pulses bilaterally. In addition, her femoral pulses can also not be palpated. She does have Doppler signals in the left peroneal region as well as the left posterior tibial region, and on the right lower extremity, she has Doppler signals present in the dorsalis pedis region as well as the posterior tibial region. Results & Data ([facility]) Vital Signs (Past 12 Hours) Vital Signs Temp Pulse Pulse Resp BP Pulse Ox 09/18/21 07:00 37.0 C 96 H 16 153/73 H 95 09/18/21 02:08 37.5 C 99 H 18 170/82 H 95 09/17/21 23:52 86 09/17/21 21:57 36.8 C 90 18 170/73 H 97 Code Status & VTE Plan VTE Prophylaxis Plan VTE Prophylaxis will be ordered: Yes Signed By: <Electronically signed by Alex Maynard MD> 09/18/21 0740 Created:09/18/21 0736 The status of this report isSigned. Draft = Not yet reviewed or approved by Medical Physician. Signed = Reviewed and approved by Medical Physician. Allergies Allergy/AdvReac Type Severity Reaction Status Date / Time napoles Allergy Unknown Hives Verified 09/18/21 06:07 (green/hartman beans) doxycycline Allergy Unknown Hives, Verified 09/18/21 06:07 vomiting Iodinated Contrast Media Allergy Unknown Large Verified 09/18/21 06:07 hives, vomiting, "feeling hot" iodine Allergy Unknown Hives, Verified 09/18/21 06:07 vomiting latex Allergy Unknown Rash Verified 09/18/21 06:07 loperamide Allergy Unknown Hives, Verified 09/18/21 06:07 vomiting meperidine Allergy Unknown Hives, Verified 09/18/21 06:07 vomiting prochlorperazine Allergy Unknown N/V, Verified 09/18/21 06:07 itchiness strawberry Allergy Unknown Hives Verified 09/18/21 06:07 tomato Allergy Unknown Hives Verified 09/18/21 06:07 Home Medications Medication Instructions Recorded Confirmed Type multivitamin 1 tab PO QAM 12/16/18 09/18/21 History amlodipine 5 mg tablet 5 mg PO UD 12/23/20 09/18/21 History cholecalciferol (vitamin D3) 50 2,000 unit PO PM #90 tab 01/02/21 09/18/21 Rx mcg (2,000 unit) tablet metoprolol succinate 100 mg 50 mg PO BID #180 tab 03/28/21 09/18/21 Rx tablet,extended release 24 hr (Toprol XL) losartan 100 mg tablet (Cozaar) 50 mg PO QAM 04/16/21 09/18/21 History amitriptyline 25 mg tablet 25 mg PO HS #90 tab 05/02/21 09/18/21 Rx clonidine HCl 0.1 mg tablet 0.1 mg PO QAM #90 tab 05/02/21 09/18/21 Rx clopidogrel 75 mg tablet (Plavix) 75 mg PO QAM #90 tab 05/02/21 09/18/21 Rx levetiracetam 1,000 mg tablet 1,000 mg PO BID #180 tab 05/02/21 09/18/21 Rx (Keppra) ondansetron HCl 4 mg tablet 4 mg PO Q8H PRN #30 tab 06/27/21 09/18/21 Rx venlafaxine 150 mg 150 mg PO QAM #90 cap 06/27/21 09/18/21 Rx capsule,extended release 24 hr rosuvastatin 40 mg tablet (Crestor) 40 mg PO HS 09/11/21 09/18/21 History Past Med/Surg History Medical History Anxiety disorder CAD (coronary artery disease) Mild-moderate non-obstructive Carotid stenosis < 50% stenosis B/L per US 12/16/18 Cervical disc disorder FULL ROM Cyclic vomiting syndrome no GI pathology on EGD, US, CT of abd/pelvis, celiac testing and GES per 04/2020 GI consult: biliary w/u and upper GI study recommended (upper GI study neg per d/c summary), cannabis cessation, continue Protonix and prn Zofran Depression GERD (gastroesophageal reflux disease) History of diverticulitis of colon HTN (hypertension) h/o multiple hypertensive urgency episodes, renal artery stenosis, following with cardiology and vascular surgery Hyperlipidemia Multiple thyroid nodules New onset seizure 07/17/2019 r/t hypertensive emergency -> encephalopathy. last seizure was ~Spring/Summer 2019 per pt NSTEMI (non-ST elevated myocardial infarction) [facility]. Cath performed showed mild to moderate non-obstructive CAD. 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 Maynard Prediabetes PRES (posterior reversible encephalopathy syndrome) has since caused seizures that started in 2019. following with PCP, last seizure per pt 08/2019 per PCP records Pulmonary emphysema Renal artery stenosis following with Dr Maynard Takotsubo cardiomyopathy 2017. Admitted [facility], full cardiac workup including cath. EF at the time 40%, now resolved to 60-65% on echo 2019. Transient cerebrovascular ischemia pt unaware and denies Surgical History H/O cervical spine surgery ACDF C4-7 Dr. [place]: Grade 1 view, Bojorquez#2 and ETT#7.5 atraumatic x 1. No issues per anesthesia postop progress note. History of cardiac cath ID - NO STENTS (per pt report, this cath not noted in cardiology notes) 2017, NSTEMI. NO INTERVENTION. History of esophagogastroduodenoscopy (EGD) History of hernia surgery right inguinal hernia repair History of hysterectomy History of ovarian cystectomy Family History Father Family history of stomach cancer Malignant neoplasm of esophagus Stomach cancer Myocardial infarction Stroke Uncle Throat cancer Family history of cancer FAMILY HISTORY OF CANCER - UNCLE - VOCAL CORDS FAMILY HISTORY OF CANCER - AUNT - ? KIND Grandmother (Maternal) Bone cancer Breast cancer Mother No problems noted. Brother Lung cancer Other Family history of diabetes mellitus No family history of adverse response to anesthesia No pertinent family history Denies family history of Colon cancer Ovarian cancer Prostate cancer Crohn's disease IBD (inflammatory bowel disease) Social History Smoking Status: Former smoker packs per day: 2; Years Smoked: 25; Smoking End Date: 10-12 YR AGO; Second Hand Exposure: Yes (hx); Do You Dip or Chew Tobacco: No; Hx Alcohol Use: No Hx Substance Use: No (quit 12/2020) Preferred Language: [place] Communication Ability: Effective Visual Impairment: Limited Hearing Ability: Normal Diagnostic Imaging Manager Required: No Beliefs That Will Affect Care: None marital status: Life Partner Current Living Situation: Significant Other current occupational status: employed 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
[2021-09-18] MEDS ORDERED: HEPARIN SOD (PORCINE) 1000 UNIT/ML ONE ×2 (09:07→10:46)
[2021-09-18] MEDS ORDERED: ALBUMIN HUMAN 5% 12.5 GM/250 ML VIAL IV ONE (10:29)
[2021-09-18] MEDS ORDERED: PROTAMINE SULFATE 10 MG/ML 5 ML VIAL ONE (11:27)
[2021-09-18] MEDS ORDERED: NITROGLYCERIN/D5W 100 MCG/ML BTL ONE ×2 (12:05→17:02)
[2021-09-18] MEDS ORDERED: SUGAMMADEX SODIUM 200 MG/2 ML VIAL IV ONE (12:17)
--- NOTE | 2021-09-18 12:51 | Operative Report ---
Post Operative Report Pre & Post Diagnosis Operation Date: 09/18/21 08:00 Pre-Op Diagnosis: Bilateral Lower Extremity Occlusion Post-Op Diagnosis: Bilateral Lower Extremity Occlusion I identified the patient and participated in the time-out.: Yes Procedure Operation Date: 09/18/21 08:00 Actual Procedures p Aorto-Bifemoral Bypass(Bilateral) - Alex Maynard MD Surgeon Alex Maynard MD Iridologist [employer],PAC Estimated Blood Loss 350 Findings Consistent with Post-Op Diagnosis Specimens none Anesthesia Type General Complications none Disposition Accompanied Patient To Recovery: No Disposition: Recovery Room Indications This is a 56-year-old female with severe claudication of lower extremities which now has developed into rest pain in the left lower extremity.She has bilateral iliac artery occlusions.Aortobifemoral bypass was recommended. I have discussed the risks options and benefits of the procedure with the patient. The patient understands the risks options and benefits and agrees to the procedure. Description of Procedure Patient was taken the operating room placed supine position.After general anesthesia was accomplished the abdomen and groins were prepped and draped in a sterile manner.The patient was identified and a timeout was performed.Incision was made in the right groin.This was carried down to the femoral sheath into the common femoral arteries identified. The common femoral artery profundofemoral artery and superficial femoral arteries were exposed.They were soft and very usable.Next incision was made in the left groin.Again this was carried down through the femoral sheath. The common femoral superficial femoral profundofemoral arteries identified on the left side. They are also soft and usable..lynnBoth the common femoral arteries are small.Midline incision was made from the xiphoid down to midway between the umbilicus and pubic bone.This is carried down to the midline fascia. The midline fascia was then incised and abdominal cavity entered.There were a few adhesions of the omentum to the lateral wall on the left side of the abdominal cavity. These were taken down without difficulty.The retroperitoneum was then opened exposing the aorta.Retractors were then placed in the abdominal cavity.Once the self- retaining retractors were placed we noticed bleeding coming from the left upper quadrant. Inspection showed a tear in the renal vein.The tear was fairly large encompassing approximately half of the vein.There was undertaken. Multiple attempts at repairing this were unsuccessful. There is still significant bleeding seen.The left renal vein was then ligated.This was done proximal to the lumbar gonadal and adrenal vein takeoffs.Bleeding was noted to be controlled at that time.We then continue to expose aorta above the inferior mesenteric artery.Once this was exposed aorta at the level Was usable for bypass.We decided doing into side. The patient was heparinized at that time. After adequate heparinization was accomplished a 14 x 7 Grundy-Deejay graft was brought to the operative field.Aorta was then clamped. A longitudinal incision was then made.The graft was then trimmed and beveled the appropriate fashion an end-to-side anastomosis accomplished using running 3-0 Prolene suture.Once this was completed the limbs were clamped.Stenosis was tested. There were 2 areas of leakage seen which were controlled with interrupted 3-0 Prolene's with pledgets.Next retroperitoneal tunnels were made from the groins up to the aortic bifurcation.The limbs were then individually clamped.The appropriate limbs were passed to each groin.Both limbs were flushed to make sure there is no kinking seen.We then flushed out the right limb. We clamped the common superficial femoral and profundofemoral arteries. A longitudinal arteriotomy was made on the common femoral arteryThe right limb was then beveled in appropriate fashion and an end-to-side anastomosis was accomplished.This was done with the 5-0 Prolene suture.Prior to completing this closure backbleeding and forward bleeding was allowed to occur.Few sutures were then placed and securely tied.The clamp was gradually released from the right leg.Patient tolerated unclamping well.The left common femoral artery was clamped proximal distally. Again a longitudinal arteriotomy was made in the common femoral artery.Graft limb was then flushed with heparinized saline and beveled in appropriate length and fashion.An end-to-side anastomosis was also accomplished the left side.This was done again in the usual vascular fashion using a running 5-0 Prolene suture.Prior to completing this closure backbleeding and forward bleeding was allowed to occur.Final few sutures were then placed and securely tied.Clamp was then gradually released from the left lower extremity.Patient tolerated unclamping well.Excellent Doppler signals were heard beyond the anastomosis on both sides.Adequate hemostasis was then obtained.Retroperitoneum was then closed over the graft using a running 3-0 Vicryl suture.[place] contents were allowed to fall back in the abdomen and leather production worker fashion. Abdomen was then irrigated with saline solution.The abdominal wall was then closed with a running #1Prolene sutureFor the fascial layer, 3-0 Vicryl for the subcutaneous layer and katie for the skin.Both groins were then closed with a running 3-0 Vicryl suture for subcutaneous layer and a running 2-0 Vicryl for the femoral sheath.Katie were used for the skin incisions in both groins.Negative pressure dressing was applied to the wounds.The patient left the operation room in satisfactory condition and tolerated the procedure well. All needle and sponge counts were correct at the end of the procedure. Nat Day Pac assisted due to lack of resident availability and was necessary for positioning, draping, retraction, wound closure deep layers, subcutaneous tissue, and skin closure and was necessary for assisting with the case. I attest to the content of the Intraoperative Record and any orders documented therein. Any exceptions are noted below.
--- NOTE | 2021-09-18 12:51 | Post Operative Brief Note ---
Immediate Post Op Note v1 Date of Surgery September 18, 2021 Pre & Post Diagnosis Operation Date: 09/18/21 08:00 Pre-Op Diagnosis: Bilateral Lower Extremity Occlusion Post-Op Diagnosis: Bilateral Lower Extremity Occlusion I identified the patient and participated in the time-out.: Yes Procedure Operation Date: 09/18/21 08:00 Actual Procedures p Aorto-Bifemoral Bypass(Bilateral) - Alex Maynard MD Surgeon Alex Maynard MD Hatch Tender [employer],PAC Estimated Blood Loss 350 Findings Consistent with Post-Op Diagnosis Drains Suarez Catheter Anesthesia Type General Complications none Disposition Accompanied Patient To Recovery: No Disposition: Recovery Room
[2021-09-18] MEDS ORDERED: PROMETHAZINE HCL INJ 25 MG/ML 1 ML VIAL ONE (13:06)
[2021-09-18] MEDS ORDERED: SODIUM CHLORIDE 0.9% 50 ML BAG ONE (13:06)
[2021-09-18] MEDS ORDERED: amLODIPine BESYLATE 5 MG TAB PO SCH (13:15)
[2021-09-18 13:41] LABS: Hematocrit (blood only) 43.2 % (37-47); Hemoglobin 13.8 g/dL (12.0-16.0)
[2021-09-18 13:50] LABS: Partial Thromboplastin Ratio 0.9; Partial Thromboplastin Time 23.9 Seconds (21.0-31.0); Prothrombin Time 10.1 Seconds (9.0-12.0)
[2021-09-18 14:15] LABS: BUN Creatinine Ratio 16.5 (10-20); Calcium 7.8 mg/dl (8.5-10.1); Creatinine Clr Calc Pharmacy 80.1 ml/min; Est GFR (African American) 82.3 ml/min; Magnesium 1.4 mg/dl (1.7-2.4); Potassium 4.1 mmol/L (3.5-5.1)
--- NOTE | 2021-09-18 14:32 | Anesthesiology Progress Note ---
Date of Service September 18, 2021 Anesthesia Post Procedure Vital Signs Vital Signs: Temp Pulse Pulse Resp BP BP Pulse Ox 09/18/21 14:10 36.5 C 107 H 20 166/106 H 97 09/18/21 14:00 101 H 19 153/97 H 98 09/18/21 13:50 103 H 18 132/89 97 09/18/21 13:40 104 H 19 129/90 98 09/18/21 13:30 102 H 19 125/85 96 09/18/21 13:20 99 H 20 136/87 96 09/18/21 13:10 102 H 22 142/94 H 98 09/18/21 13:00 102 H 20 134/92 96 09/18/21 12:53 36.2 C L 98 H 18 131/96 98 09/18/21 06:17 36.8 C 81 20 138/92 95 Pain Intensity Abdomen: Pain Intensity: 5 Transfer of Care Handoff Completed per policy Notes Mental Status: alert / awake / arousable and participated in evaluation Patient Amnestic to Procedure: Yes Nausea / Vomiting: adequately controlled Pain: adequately controlled Airway Patency, RR, SpO2: stable & adequate BP & HR: stable & adequate Hydration State: stable & adequate Anesthetic Complications: no major complications apparent
--- NOTE | 2021-09-18 15:00 | Critical Care Consultation ---
Date of Consultation September 18, 2021 Assessment & Plan (1) Peripheral arterial disease: (2) Obstructive sleep apnea: (3) HTN (hypertension): Impression: 56-year-old female with complex history including sleep apnea (noncompliant with CPAP), hypertension, renal artery stenosis, obesity, and glucose intolerance status post elective aortobifem today. Recommendations: 1. Peripheral vascular disease: Status post aortobifem: Management per surgery. Continue neurovascular examination of the lower extremities. Analgesia per vascular surgery 2. Hypertension: The patient's outpatient antihypertensive regimen has been restarted. We will see how she does. She may require parenteral doses of labetalol or hydralazine depending on clinical response. 3. Hyperglycemia: Glycemic control per protocol. 4. Electrolyte abnormalities: The patient demonstrates hypocalcemia and hypomagnesemia. ICU electrolyte replacement protocol will be initiated and followed up. Her bicarb is slightly low as well and this will need to be trended over time. 5. Moderate sleep disordered breathing: The patient apparently has not been compliant with CPAP in the past. Continue supplemental oxygen at night. If were unable to achieve adequate saturations, CPAP at 6 cm of water may need to be initiated. 6. History of COPD: Not bronchospastic currently. No indication for additional inhalers antibiotics or steroids at the current time. 7. DVT and GI prophylaxis per vascular surgery. Thanks for the opportunity to participate in the care of this patient. We will continue to follow during her ICU stay. Feel free to contact us if we can be of additional assistance. History of Present Illness Attending Physician: Alex Maynard MD History of Present Illness Asked by vascular surgery to assist with critical care management of this patient status post aortobifem. History is obtained from discussion with vascular surgery as well as review of electronic medical record and interview the patient in the PACU. Patient is a 56-year-old female with a history of emphysema, sleep apnea, and peripheral arterial disease. She was taken to the OR today due to progressive symptoms of claudication. She is being worked up for renal artery stenosis and previously had an MR angiogram showing significant peripheral arterial disease. Her procedure was uneventful and she was extubated in the PACU and hemodynamically stable to slightly hypertensive. She was waking up from anesthesia and was able to complain of some abdominal pain. Pulses were obtainable in the bilateral lower extremities by Doppler. She had no cyanosis or clubbing. Feet were warm bilaterally in the PACU. She appeared neurovascularly intact. Allergies Allergy/AdvReac Type Severity Reaction Status Date / Time napoles Allergy Unknown Hives Verified 09/18/21 06:07 (green/hartman beans) doxycycline Allergy Unknown Hives, Verified 09/18/21 06:07 vomiting Iodinated Contrast Media Allergy Unknown Large Verified 09/18/21 06:07 hives, vomiting, "feeling hot" iodine Allergy Unknown Hives, Verified 09/18/21 06:07 vomiting latex Allergy Unknown Rash Verified 09/18/21 06:07 loperamide Allergy Unknown Hives, Verified 09/18/21 06:07 vomiting meperidine Allergy Unknown Hives, Verified 09/18/21 06:07 vomiting prochlorperazine Allergy Unknown N/V, Verified 09/18/21 06:07 itchiness strawberry Allergy Unknown Hives Verified 09/18/21 06:07 tomato Allergy Unknown Hives Verified 09/18/21 06:07 Home Medications Medication Instructions Recorded Confirmed Type multivitamin 1 tab PO QAM 12/16/18 09/18/21 History amlodipine 5 mg tablet 5 mg PO UD 12/23/20 09/18/21 History cholecalciferol (vitamin D3) 50 2,000 unit PO PM #90 tab 01/02/21 09/18/21 Rx mcg (2,000 unit) tablet metoprolol succinate 100 mg 50 mg PO BID #180 tab 03/28/21 09/18/21 Rx tablet,extended release 24 hr (Toprol XL) losartan 100 mg tablet (Cozaar) 50 mg PO QAM 04/16/21 09/18/21 History amitriptyline 25 mg tablet 25 mg PO HS #90 tab 05/02/21 09/18/21 Rx clonidine HCl 0.1 mg tablet 0.1 mg PO QAM #90 tab 05/02/21 09/18/21 Rx clopidogrel 75 mg tablet (Plavix) 75 mg PO QAM #90 tab 05/02/21 09/18/21 Rx levetiracetam 1,000 mg tablet 1,000 mg PO BID #180 tab 05/02/21 09/18/21 Rx (Keppra) ondansetron HCl 4 mg tablet 4 mg PO Q8H PRN #30 tab 06/27/21 09/18/21 Rx venlafaxine 150 mg 150 mg PO QAM #90 cap 06/27/21 09/18/21 Rx capsule,extended release 24 hr rosuvastatin 40 mg tablet (Crestor) 40 mg PO HS 09/11/21 09/18/21 History Patient History Medical History Anxiety disorder CAD (coronary artery disease) Mild-moderate non-obstructive Carotid stenosis < 50% stenosis B/L per US 12/16/18 Cervical disc disorder FULL ROM Cyclic vomiting syndrome no GI pathology on EGD, US, CT of abd/pelvis, celiac testing and GES per 04/2020 GI consult: biliary w/u and upper GI study recommended (upper GI study neg per d/c summary), cannabis cessation, continue Protonix and prn Zofran Depression GERD (gastroesophageal reflux disease) History of diverticulitis of colon HTN (hypertension) h/o multiple hypertensive urgency episodes, renal artery stenosis, following with cardiology and vascular surgery Hyperlipidemia Multiple thyroid nodules New onset seizure 07/17/2019 r/t hypertensive emergency -> encephalopathy. last seizure was ~Spring/Summer 2019 per pt NSTEMI (non-ST elevated myocardial infarction) 2017 [facility]. Cath performed showed mild to moderate non-obstructive CAD. 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 Maynard Prediabetes PRES (posterior reversible encephalopathy syndrome) has since caused seizures that started in 2018. following with PCP, last seizure per pt 08/2019 per PCP records Pulmonary emphysema Renal artery stenosis following with Dr Maynard Takotsubo cardiomyopathy 2017. Admitted [facility], full cardiac workup including cath. EF at the time 40%, now resolved to 60-65% on echo 2018. Transient cerebrovascular ischemia pt unaware and denies Surgical History H/O cervical spine surgery ACDF C4-7 Dr. [place]: Grade 1 view, Bojorquez#2 and ETT#7.5 atraumatic x 1. No issues per anesthesia postop progress note. History of cardiac cath IA - NO STENTS (per pt report, this cath not noted in cardiology notes) 2017, NSTEMI. NO INTERVENTION. History of esophagogastroduodenoscopy (EGD) History of hernia surgery right inguinal hernia repair History of hysterectomy History of ovarian cystectomy Family History Father Family history of stomach cancer Malignant neoplasm of esophagus Stomach cancer Myocardial infarction Stroke Uncle Throat cancer Family history of cancer FAMILY HISTORY OF CANCER - UNCLE - VOC[place] FAMILY HISTORY OF CANCER - AUNT - ? KIND Grandmother (Maternal) Bone cancer Breast cancer Mother No problems noted. Brother Lung cancer Other Family history of diabetes mellitus No family history of adverse response to anesthesia No pertinent family history Denies family history of Colon cancer Ovarian cancer Prostate cancer Crohn's disease IBD (inflammatory bowel disease) Social History Smoking Status: Former smoker packs per day: 2; Years Smoked: 25; Smoking End Date: 10-12 YR AGO; Second Hand Exposure: Yes (hx); Do You Dip or Chew Tobacco: No; Hx Alcohol Use: No Hx Substance Use: No (quit 12/2020) Preferred Language: Georgian Communication Ability: Effective Visual Impairment: Limited Hearing Ability: Normal Crystal Cutter Required: No Beliefs That Will Affect Care: None marital status: Life Partner Current Living Situation: Significant Other current occupational status: employed current occupation: [employer]ODUCT [employer] Other Information That Helps Us Care for You: No Feels Safe at Home: Yes Childhood Exposure to Second-Hand Smoke: Yes caffeine: Yes (1 cup of coffee) during the past year weight has: other Dental Care, Regularly: No Physical Activity Frequency: Daily Physical Activity Frequency Comment: walking Seatbelt Use: always Sunscreen Use: Yes Assistive Devices: Denture - Upper and Denture - Lower Review of Systems Review of Systems: Unobtainable due to reduced consciousness Physical Exam Constitutional: WD/WN, vitals as above Neck: trachea midline, no thyromegaly Respiratory: normal respiratory effort, lungs clear to auscultation Cardiovascular: RRR, no murmur, no edema Gastrointestinal (Abdomen): normal bowel sounds, soft, nontender, no hepatosplenomegaly Musculoskeletal: Extremities: extremities normal to inspection Skin: no rashes, warm and dry Posterior tibial and dorsalis pedis pulses dopplerable bilaterally. Capillary refill in the toes was good. Sensation intact. Neurologic: Nonfocal exam Lymphatic: no cervical lymphadenopathy Results & Data Results & Data ([facility]) Vital Signs (Past 12 Hours) Vital Signs Temp Pulse Pulse Resp BP BP Pulse Ox 09/18/21 14:00 101 H 19 153/97 H 98 09/18/21 13:50 103 H 18 132/89 97 09/18/21 13:40 104 H 19 129/90 98 09/18/21 13:30 102 H 19 125/85 96 09/18/21 13:20 99 H 20 136/87 96 09/18/21 13:10 102 H 22 142/94 H 98 09/18/21 13:00 102 H 20 134/92 96 09/18/21 12:53 36.2 C L 98 H 18 131/96 98 09/18/21 06:17 36.8 C 81 20 138/92 95 Critical Care Results & Data Vital Signs (Past 12 Hours) Vital Signs Temp Pulse Pulse Resp BP BP Pulse Ox 09/18/21 14:30 110 H 20 163/107 H 98 09/18/21 14:20 106 H 20 168/110 H 98 09/18/21 14:10 36.5 C 107 H 20 166/106 H 97 09/18/21 14:00 101 H 19 153/97 H 98 09/18/21 13:50 103 H 18 132/89 97 09/18/21 13:40 104 H 19 129/90 98 09/18/21 13:30 102 H 19 125/85 96 09/18/21 13:20 99 H 20 136/87 96 09/18/21 13:10 102 H 22 142/94 H 98 09/18/21 13:00 102 H 20 134/92 96 09/18/21 12:53 36.2 C L 98 H 18 131/96 98 09/18/21 06:17 36.8 C 81 20 138/92 95 Lab & Micro Results (Past 24 Hours) Hgb 13.8 g/dL (12.0-16.0) 09/18/21 Hct 43.2 % (37-47) 09/18/21 Na 140 mmol/L (136-145) 09/18/21 K 4.1 mmol/L (3.5-5.1) 09/18/21 Cl 112 mmol/L (98-107) H 09/18/21 CO2 19 mmol/L (21-32) L 09/18/21 Anion Gap 9 (3-11) 09/18/21 BUN 15 mg/dl (6-23) 09/18/21 Creatinine 0.91 mg/dl (0.6-1.2) 09/18/21 Estimated GFR ( Amer) 82.3 ml/min 09/18/21 Estimated GFR (Non-Af Amer) 71.0 ml/min 09/18/21 BUN/Creatinine Ratio 16.5 (10-20) 09/18/21 Glu 189 mg/dl (70-99(Fasting)) H 09/18/21 Ca 7.8 mg/dl (8.5-10.1) L 09/18/21 Mg 1.4 mg/dl (1.7-2.4) L 09/18/21 13:28 09/18/21 Calcium Level 7.8 mg/dl (8.5-10.1) L 09/18/21 13:28 09/18/21 Prothromb Time International Ratio 1.0 (0.9-1.1) 09/18/21 13:28 09/18/21 I & O Totals 24 Hours 09/17/21 09/18/21 09/19/21 06:59 06:59 06:59 Intake Total 3450.5 / 3450.5 Output Total 505 / 505 Balance 2945.5 / 2945.5 Cumulative 08/13/21 13:29 thru 09/18/21 14:05 Intake Total 3450.5 Output Total 505 Balance 2945.5 RT Ventilator Mngmt (Last Documented) Ventilator Ordered Settings Respiratory Rate 20 09/18/21 14:30 Ventilator - PT Measurements Respiratory Rate 20 Coding Level of Care Code 78053 Inpt Consult Level 4 Diagnoses Peripheral arterial disease I73.9 Obstructive sleep apnea G47.33 HTN (hypertension) I10
[2021-09-18] MEDS: MoRPHine SULFATE 4 MG/ML 1 ML CARP\\VIAL IV PRN ×2 (15:31→18:13)
[2021-09-18] MEDS: ICU PROTOCOL FOR HYPERGLYCEMIA SCH (15:43)
[2021-09-18] MEDS: ceFAZolin 2000MG 2,000 MG/15 ML SYR IV SCH ×2 (16:50→23:00)
[2021-09-18] MEDS ORDERED: STAT IV Infusion **Titration per Protocol STA (17:01)
[2021-09-18] MEDS ORDERED: LACTATED RINGER'S 1,000 ML IV ONE (17:01)
[2021-09-18] MEDS ORDERED: NITROGLYCERIN/D5W 100MCG/ML 250 ML IV SCH (17:15)
[2021-09-18] MEDS ORDERED: LORazepam 0.25 MG/0.5 ML VIAL IV STA (18:03)
[2021-09-18] MEDS: ICU ELECTROLYTE REPLACEMENT PROTOCOL SCH (18:04)
[2021-09-18] MEDS ORDERED: LORazepam 2 MG/4 ML VIAL ONE (18:07)
[2021-09-18 19:12] LABS: Hematocrit (blood only) 42.4 % (37-47); Mean Corpuscular Hemoglobin 31.5 pg (25-34); Mean Corpuscular Volume 95.5 fL (80-100); Mean Platelet Volume 10.2 fL (7.4-10.4); Platelet Count 312 K/uL (130-400); RDW Coefficient of Variation 13.1 % (11.5-14.5); RDW Standard Deviation 45.6 fL (36.4-46.3); Red Blood Count 4.44 M/uL (4.2-5.4); White Blood Count 24.15 K/uL (4.8-10.8)
[2021-09-18 19:32] LABS: Albumin Globulin Ratio 1.5 (0.9-2); Albumin Level 3.5 gm/dl (3.4-5.0); BUN Creatinine Ratio 15.7 (10-20); Bilirubin,Total 0.5 mg/dl (0.2-1.0); Calcium 8.1 mg/dl (8.5-10.1); Creatinine Clr Calc Pharmacy 71.5 ml/min; Est GFR (African American) 71.7 ml/min; Est GFR (Non-African American) 61.9 ml/min; Globulin 2.3 gm/dl (2.5-4.0); Potassium 4.9 mmol/L (3.5-5.1); Total Protein 5.8 gm/dl (6.0-8.3)
[2021-09-18 20:08] LABS: Basophils # (auto) 0.03 K/uL (0-0.2); Basophils % (auto) 0.1 %; Eosinophils # (auto) 0.01 K/uL (0-0.5); Immature Granulocytes % (auto) 0.4 %; Lymphocytes # (auto) 1.97 K/uL (1.2-3.4); Lymphocytes % (auto) 8.2 %; Monocytes # (auto) 1.56 K/uL (0.11-0.59); Monocytes % (auto) 6.5 %; Neutrophils # (auto) 20.48 K/uL (1.4-6.5); Neutrophils % (auto) 84.8 %; Polychromasia 1+
[2021-09-18] MEDS ORDERED: NORMOSOL-R 1,000 ML IV ONE ×2 (20:25→21:51)
[2021-09-18 20:57] LABS: Creatine Kinase 327 U/L (26-192); Lipase 36 U/L (11-82)
[2021-09-18] MEDS ORDERED: MoRPHine SULFATE 2 MG/ML CARP IV STA (21:52)
--- NOTE | 2021-09-18 22:05 | CT Scan Report ---
CT abd pelvis wo con CLINICAL HISTORY: Lactic acidosis, abdominal pain COMPARISON STUDY: 04/23/2021 CT DOSE: 1050.43 mGy.cm TECHNIQUE: Standard CT of the Abdomen and Pelvis was performed without IV contrast. The patient did not receive oral contrast. A dose lowering technique was utilized adhering to the principles of GEO Green. FINDINGS: Lung base: There are small bilateral pleural effusions with bibasilar atelectasis. Abdominal cavity: There is no evidence for abdominal mass, adenopathy or ascites. There is a left ing uinal hernia containing peritoneal fat. The patient is status post aortobifemoral bypass grafting. Minimal free air is present related to the recent surgery. The inflammatory changes present described below are completely separate from the wolfe rgical site. Liver: There is diffuse fatty infiltration of the liver with no focal hepatic parenchymal abnormality on these limited noncontrast images.. Spleen: The spleen is homogeneous in attenuation on these limited noncontrast images. Pancreas: There are diffuse edematous changes present surrounding the distal body and tail of pancrea s most characteristic of pancreatitis. The head and body the pancreas are within normal limits. Perip ancreatic fluid is present with no focal pseudocyst formation. Gall Bladder: The gallbladder is well distended with no evidence for cholelithiasis, wall thickening or pericholecystic edema.. Adrenal glands: The adrenal glands are normal in size and attenuation on these limited noncontrast im ages. Kidneys: There is diffuse edema present involving the left kidney when compared to the right with mar ked asymmetric left perirenal fluid and inflammatory changes present. Extensive perinephric stranding is present. Fluid extends down the left paracolic gutter. The findings are highly suspicious for the presence of left-sided pyelonephritis on this limited noncontrast study. The right kidney again appe ars normal. There is no evidence for gross renal mass, calculus or hydronephrosis bilaterally. Bowel: The bowel loops are normally placed within the abdomen and pelvis without evidence for dilatat ion or obstruction. There is diffuse sigmoid diverticulosis without evidence for diverticulitis. Ther e are no inflammatory changes present. Appendix is not visualized. Bladder: Suarez catheter is present within the bladder. : There is no evidence for pelvic mass or adenopathy. The patient is status post hysterectomy. Vasculature: Atherosclerotic calcification is also present. Osseous structures: There is no acute osseous pathology. Degenerative changes are seen within the spi ne. IMPRESSION: 1. Status post aorto bifemoral grafting with minimal postoperative free air present. 2. Interval development of diffuse inflammatory changes surrounding the distal body and tail of pancr eas suspicious for acute pancreatitis. 3. Interval development of diffuse swelling and edematous changes of the left kidney with perinephric stranding and edematous changes present. Fluid extends down the left paracolic gutter as well. These findings are highly suspicious for the presence of left-sided pyelonephritis on these limited noncon trast images. 4. Additional nonacute findings are delineated above. ACT 112: Negative or not required by law. Electronically signed by: Delvin Brower M.D. 09/18/2021 10:04 PM
[2021-09-18] MEDS ORDERED: DAPTOmycin 350 MG in SYRINGE 0 ML IV SCH (22:30)
[2021-09-18] MEDS: METOPROLOL SUCC 50MG EXT REL TAB PO SCH (22:56)
[2021-09-18] MEDS: levETIRAcetam 500 MG TAB PO SCH (22:56)
[2021-09-18] MEDS: AMITRIPTYLINE HCL 25 MG TAB PO SCH (22:56)
[2021-09-18 23:32] LABS: Appearance Urine Clear (Clear); Bacteria Urine Automated Negative (Negative); Bilirubin Urine Negative (Negative); Blood Urine 3+ (Negative); Color Urine Yellow; Glucose Urine UA Negative (Negative); Ketones Urine Negative (Negative); Leukocyte Esterase Urine Negative (Negative); Nitrite Urine Negative (Negative); Protein Urine 2+ (Negative); RBC Urine Automated >30 /hpf (0-4); Urobilinogen Urine Negative (Negative)
[2021-09-18] MEDS: CEFEPIME 2,000 MG in SYRINGE 0 ML IV SCH (23:58)
[2021-09-19] MEDS ORDERED: LACTATED RINGER'S 1,000 ML IV ONE (00:41)
[2021-09-19] MEDS: LACTATED RINGER'S 1,000 ML IV SCH ×4 (01:19→12:30)
[2021-09-19] MEDS: MoRPHine SULFATE 4 MG/ML 1 ML CARP\\VIAL IV PRN ×7 (02:00→20:43)
[2021-09-19] MEDS ORDERED: METOPROLOL TARTRATE 1 MG/ML VIAL IV SCH (06:00)
[2021-09-19] MEDS ORDERED: METOPROLOL TARTRATE 1 MG/ML VIAL IV ONE (06:01)
[2021-09-19 06:14] LABS: Basophils # (auto) 0.03 K/uL (0-0.2); Basophils % (auto) 0.2 %; Hematocrit (blood only) 34.4 % (37-47); Hemoglobin 11.4 g/dL (12.0-16.0); Immature Granulocytes # (auto) 0.04 K/uL (0.00-0.02); Immature Granulocytes % (auto) 0.3 %; Lymphocytes # (auto) 2.49 K/uL (1.2-3.4); Lymphocytes % (auto) 16.2 %; Mean Corpuscular Hgb Conc 33.1 g/dL (32-36); Mean Corpuscular Volume 93.5 fL (80-100); Mean Platelet Volume 10.1 fL (7.4-10.4); Monocytes # (auto) 1.45 K/uL (0.11-0.59); Monocytes % (auto) 9.5 %; Neutrophils # (auto) 11.33 K/uL (1.4-6.5); Neutrophils % (auto) 73.8 %; Platelet Count 223 K/uL (130-400); RDW Coefficient of Variation 12.9 % (11.5-14.5); RDW Standard Deviation 44.1 fL (36.4-46.3); Red Blood Count 3.68 M/uL (4.2-5.4); White Blood Count 15.34 K/uL (4.8-10.8)
[2021-09-19 06:27] LABS: BUN Creatinine Ratio 15.2 (10-20); Calcium 7.5 mg/dl (8.5-10.1); Est GFR (African American) 69.2 ml/min; Est GFR (Non-African American) 59.7 ml/min; Magnesium 1.3 mg/dl (1.7-2.4); Phosphorus 2.4 mg/dl (2.5-4.9); Potassium 4.1 mmol/L (3.5-5.1)
[2021-09-19] MEDS: ICU ELECTROLYTE REPLACEMENT PROTOCOL SCH ×2 (06:31→18:25)
[2021-09-19] MEDS ORDERED: SODIUM PHOSPHATE 3 MMOL/1 ML INFUSION IV STA (06:32)
[2021-09-19] MEDS ORDERED: SODIUM PHOSPHATE 15 MMOL in SODIUM CHLORIDE 0.9% 250 ML IV ONE (07:00)
[2021-09-19] MEDS: CEFEPIME 2,000 MG in SYRINGE 0 ML IV SCH (07:51)
[2021-09-19] MEDS: MAGNESIUM SULFATE / D5W 1 GM/100 ML BAG IV SCH ×4 (08:01→14:58)
--- NOTE | 2021-09-19 08:41 | XRay Report ---
XR KUB/Abdomen 1 view CLINICAL HISTORY: Evaluate NG tube placement. COMPARISON STUDY: 04/14/2020 TECHNIQUE: Single view of the abdomen. FINDINGS: The bowel gas pattern is within normal limits without evidence for dilatation or obstruction. NG tube is in place with its tip in the mid body of the stomach. There is no evidence for organomegaly or gr oss intra-abdominal mass. No abnormal calcifications are seen along the course of the urinary tracts bilaterally. No acute osseous pathology. Skin heather are present in the midline anteriorly. IMPRESSION: 1.No acute intra-abdominal abnormality. 2. Tip of NG tube within the mid body of the stomach. ACT 112: Negative or not required by law. Electronically signed by: Delvin Brower M.D. 09/19/2021 8:39 AM
[2021-09-19] MEDS ORDERED: STAT IV STA (09:36)
[2021-09-19] MEDS ORDERED: CALCIUM GLUCONATE 10% 2,000 MG in DEXTROSE 5% 50 ML IV ONE (10:00)
[2021-09-19] MEDS ORDERED: ICU PROTOCOL FOR HYPERGLYCEMIA PRN (10:00)
[2021-09-19] MEDS: cloNIDine HCL 0.1 MG TAB PO SCH (10:03)
[2021-09-19] MEDS: LOSARTAN POTASSIUM 50 MG TAB PO SCH (10:03)
[2021-09-19] MEDS: METOPROLOL SUCC 50MG EXT REL TAB PO SCH ×2 (10:04→20:44)
[2021-09-19] MEDS: VENLAFAXINE HCL XR 150 MG CAPXR PO SCH ×2 (10:04→16:59)
[2021-09-19] MEDS: levETIRAcetam 500 MG TAB PO SCH ×2 (10:05→16:59)
[2021-09-19] MEDS: D5W AND 1/2NSS 1,000 ML IV SCH ×2 (10:10→20:42)
[2021-09-19] MEDS: ENOXAPARIN INJ 40 MG/0.4 ML SYR SQ SCH ×2 (11:00→20:45)
[2021-09-19] MEDS: ICU PROTOCOL FOR HYPERGLYCEMIA SCH (12:30)
--- NOTE | 2021-09-19 12:55 | Critical Care Progress Note ---
Date of Service September 19, 2021 Assessment & Plan (1) Peripheral arterial disease: (2) Obstructive sleep apnea: (3) HTN (hypertension): Plan: Impression: 56-year-old female with complex history including sleep apnea (noncompliant with CPAP), hypertension, renal artery stenosis, obesity, and glucose intolerance status post elective aortobifem 09/18/2021. 24-hour events: The patient has had weak pulses in the lower extremities unchanged from her postoperative.. She was evaluated on multiple occasions by vascular surgery who felt her exam was stable. She does have popliteal pulses which are dopplerable. She became tachycardic yesterday with an elevated la ctate and had a CT of the abdomen performed. Antibiotics were initiated due to concern about infection, specifically pyelonephritis as well as pancreatitis. She is clinically better this morning. Nitroglycerin was added to attempt to improve perfusion yesterday Recommendations: 1. Peripheral vascular disease: Status post aortobifem: Management per surgery. Continue neurovascular examination of the lower extremities. Analgesia per vascular surgery and wean nitro to off. 2. Hypertension: Restarting oral medications via the nasogastric tube. Her tachycardia may be related to beta-blaine or clonidine withdrawal. 3. Hyperglycemia: Glycemic control per protocol. 4. Electrolyte abnormalities: ICU electrolyte replacement protocol 5. Moderate sleep disordered breathing: The patient apparently has not been compliant with CPAP in the past. Continue supplemental oxygen at night. If were unable to achieve adequate saturations, CPAP at 6 cm of water may need to be initiated. 6. History of COPD: Not bronchospastic currently. No indication for additional inhalers antibiotics or steroids at the current time. 7. Lactic acidosis: Suspect this is clearing. May have been due to washout or potential concomitant use of Metformin. Hemodynamics are stable. Her lipase was normal so doubt pancreatitis. The findings may be related to manipulation of the surgical bed. Discussed with vascular surgery. The renal vein was apparently ligated during the course of the procedure. This accounts for the lack of flow. No indication for heparin per vascular surgery. We will continue to follow serum creatinine and electrolytes going forward. Thanks for the opportunity to participate in the care of this patient. We will continue to follow during her ICU stay. Feel free to contact us if we can be of additional assistance. Ultimate disposition per vascular surgery Admission and Anticipated Discharge Date Admission Date: September 18, 2021 Subjective Patient seen and examined. EMR reviewed. She appears somewhat better this morning. She still having some abdominal pain. She is passing flatus. She is not complaining of any numbness tingling in her lower extremities. Review of Systems Review of Systems: All systems reviewed & are unremarkable except as noted in Subjective Physical Exam Constitutional: WD/WN, vitals as above Neck: trachea midline, no thyromegaly Respiratory: normal respiratory effort, lungs clear to auscultation Cardiovascular: RRR, no murmur, no edema Gastrointestinal (Abdomen): normal bowel sounds, soft, nontender, no hepatosplenomegaly Musculoskeletal: Extremities: extremities normal to inspection Skin: no rashes, warm and dry Lymphatic: no cervical lymphadenopathy Results & Data Results & Data ([facility]) Vital Signs (Past 12 Hours) Vital Signs Temp Pulse Resp BP Pulse Ox 09/19/21 12:30 130 H 20 147/109 H 90 09/19/21 12:20 127 H 20 90 09/19/21 12:10 130 H 14 91 09/19/21 12:00 129 H 18 152/104 H 88 L 09/19/21 11:50 130 H 19 92 09/19/21 11:40 128 H 22 91 09/19/21 11:30 127 H 22 152/96 H 86 L 09/19/21 11:20 128 H 17 91 09/19/21 11:10 129 H 18 91 09/19/21 11:00 126 H 15 157/101 H 86 L 09/19/21 10:50 127 H 25 H 88 L 09/19/21 10:40 126 H 17 88 L 09/19/21 10:30 126 H 18 154/115 H 85 L 09/19/21 10:20 126 H 26 H 88 L 09/19/21 10:10 123 H 18 87 L 09/19/21 10:00 123 H 20 129/97 88 L 09/19/21 09:50 125 H 25 H 88 L 09/19/21 09:40 122 H 18 89 L 09/19/21 09:30 123 H 15 158/96 H 09/19/21 09:20 122 H 19 91 09/19/21 09:10 127 H 15 88 L 09/19/21 09:00 123 H 22 142/91 H 89 L 09/19/21 08:50 122 H 29 H 92 09/19/21 08:40 122 H 20 92 02/16/22 08:30 36.7 C 121 H 21 137/95 88 L 09/19/21 08:20 124 H 22 94 09/19/21 08:10 123 H 20 92 09/19/21 08:00 124 H 18 126/91 91 09/19/21 07:50 121 H 18 93 09/19/21 07:40 122 H 19 93 09/19/21 07:30 123 H 20 123/94 91 09/19/21 07:20 121 H 19 87 L 09/19/21 07:10 120 H 22 89 L 09/19/21 07:00 120 H 12 116/88 87 L 09/19/21 06:05 132 H 130/74 09/19/21 04:43 37.2 C 09/19/21 04:40 129 H 17 89 L 09/19/21 04:30 128 H 21 133/93 87 L 09/19/21 04:24 37.2 C 09/19/21 04:20 131 H 21 88 L 09/19/21 04:10 130 H 22 87 L 09/19/21 04:00 132 H 19 138/85 88 L 09/19/21 03:50 127 H 24 88 L 09/19/21 03:40 128 H 23 89 L 09/19/21 03:30 128 H 21 129/85 88 L 09/19/21 03:20 130 H 20 90 09/19/21 03:10 130 H 22 90 09/19/21 03:00 126 H 22 122/91 89 L 09/19/21 02:50 126 H 22 88 L 09/19/21 02:40 126 H 18 88 L 09/19/21 02:30 123 H 22 157/105 H 90 09/19/21 02:20 122 H 21 91 09/19/21 02:18 120 H 23 149/97 H 90 09/19/21 02:10 119 H 23 89 L 09/19/21 02:00 117 H 22 163/110 H 91 09/19/21 01:50 115 H 22 92 09/19/21 01:40 116 H 18 90 09/19/21 01:30 118 H 25 H 155/105 H 91 09/19/21 01:20 123 H 22 91 09/19/21 01:10 124 H 20 91 09/19/21 01:00 124 H 20 156/103 H 92 Critical Care Results & Data Vital Signs (Past 12 Hours) Vital Signs Temp Pulse Resp BP Pulse Ox 09/19/21 12:30 130 H 20 147/109 H 90 09/19/21 12:20 127 H 20 90 09/19/21 12:10 130 H 14 91 09/19/21 12:00 129 H 18 152/104 H 88 L 09/19/21 11:50 130 H 19 92 09/19/21 11:40 128 H 22 91 09/19/21 11:30 127 H 22 152/96 H 86 L 09/19/21 11:20 128 H 17 91 09/19/21 11:10 129 H 18 91 09/19/21 11:00 126 H 15 157/101 H 86 L 09/19/21 10:50 127 H 25 H 88 L 09/19/21 10:40 126 H 17 88 L 09/19/21 10:30 126 H 18 154/115 H 85 L 09/19/21 10:20 126 H 26 H 88 L 09/19/21 10:10 123 H 18 87 L 09/19/21 10:00 123 H 20 129/97 88 L 09/19/21 09:50 125 H 25 H 88 L 09/19/21 09:40 122 H 18 89 L 09/19/21 09:30 123 H 15 158/96 H 09/19/21 09:20 122 H 19 91 09/19/21 09:10 127 H 15 88 L 09/19/21 09:00 123 H 22 142/91 H 89 L 09/19/21 08:50 122 H 29 H 92 09/19/21 08:40 122 H 20 92 09/19/21 08:30 36.7 C 121 H 21 137/95 88 L 09/19/21 08:20 124 H 22 94 09/19/21 08:10 123 H 20 92 09/19/21 08:00 124 H 18 126/91 91 09/19/21 07:50 121 H 18 93 09/19/21 07:40 122 H 19 93 09/19/21 07:30 123 H 20 123/94 91 09/19/21 07:20 121 H 19 87 L 09/19/21 07:10 120 H 22 89 L 09/19/21 07:00 120 H 12 116/88 87 L 09/19/21 06:05 132 H 130/74 09/19/21 04:43 37.2 C 09/19/21 04:40 129 H 17 89 L 09/19/21 04:30 128 H 21 133/93 87 L 09/19/21 04:24 37.2 C 09/19/21 04:20 131 H 21 88 L 09/19/21 04:10 130 H 22 87 L 09/19/21 04:00 132 H 19 138/85 88 L 09/19/21 03:50 127 H 24 88 L 09/19/21 03:40 128 H 23 89 L 09/19/21 03:30 128 H 21 129/85 88 L 09/19/21 03:20 130 H 20 90 09/19/21 03:10 130 H 22 90 09/19/21 03:00 126 H 22 122/91 89 L 09/19/21 02:50 126 H 22 88 L 09/19/21 02:40 126 H 18 88 L 09/19/21 02:30 123 H 22 157/105 H 90 09/19/21 02:20 122 H 21 91 09/19/21 02:18 120 H 23 149/97 H 90 09/19/21 02:10 119 H 23 89 L 09/19/21 02:00 117 H 22 163/110 H 91 09/19/21 01:50 115 H 22 92 09/19/21 01:40 116 H 18 90 09/19/21 01:30 118 H 25 H 155/105 H 91 09/19/21 01:20 123 H 22 91 09/19/21 01:10 124 H 20 91 09/19/21 01:00 124 H 20 156/103 H 92 Lab & Micro Results (Past 24 Hours) RBC 3.68 M/uL (4.2-5.4) L 09/19/21 WBC 15.34 K/uL (4.8-10.8) H 09/19/21 Hgb 11.4 g/dL (12.0-16.0) L 09/19/21 Hct 34.4 % (37-47) L 09/19/21 MCV 93.5 fL (80-100) 09/19/21 MCH 31.0 pg (25-34) 09/19/21 MCHC 33.1 g/dL (32-36) 09/19/21 RDW Standard Deviation 44.1 fL (36.4-46.3) 09/19/21 RDW Coefficient of Variation 12.9 % (11.5-14.5) 09/19/21 Plt Count 223 K/uL (130-400) 09/19/21 MPV 10.1 fL (7.4-10.4) 09/19/21 Neutrophils (%) (Auto) 73.8 % 09/19/21 Lymphocytes (%) (Auto) 16.2 % 09/19/21 Monocytes # (Auto) 1.45 K/uL (0.11-0.59) H 09/19/21 Eosinophils # (Auto) 0.00 K/uL (0-0.5) 09/19/21 Immature Granulocyte % (Auto) 0.3 % 09/19/21 Neutrophils # (Auto) 11.33 K/uL (1.4-6.5) H 09/19/21 Lymphocytes # (Auto) 2.49 K/uL (1.2-3.4) 09/19/21 Monocytes # (Auto) 1.45 K/uL (0.11-0.59) H 09/19/21 Eosinophils # (Auto) 0.00 K/uL (0-0.5) 09/19/21 Basophils # (Auto) 0.03 K/uL (0-0.2) 09/19/21 Immature Granulocyte # (Auto) 0.04 K/uL (0.00-0.02) H 09/19/21 Polychromasia 1+ 09/18/21 Na 137 mmol/L (136-145) 09/19/21 K 4.1 mmol/L (3.5-5.1) 09/19/21 Cl 108 mmol/L (98-107) H 09/19/21 CO2 21 mmol/L (21-32) 09/19/21 Anion Gap 8 (3-11) 09/19/21 BUN 16 mg/dl (6-23) 09/19/21 Creatinine 1.05 mg/dl (0.6-1.2) 09/19/21 Estimated GFR ( Amer) 69.2 ml/min 09/19/21 Estimated GFR (Non-Af Amer) 59.7 ml/min 09/19/21 BUN/Creatinine Ratio 15.2 (10-20) 09/19/21 Glu 169 mg/dl (70-99(Fasting)) H 09/19/21 Ca 7.5 mg/dl (8.5-10.1) L 09/19/21 Phosphorus Level 2.4 mg/dl (2.5-4.9) L 09/19/21 Total Bilirubin 0.5 mg/dl (0.2-1.0) 09/18/21 AST 72 U/L (13-39) H 09/18/21 ALT 70 U/L (7-52) H 09/18/21 Alkaline Phosphatase 73 U/L (34-104) 09/18/21 TP 5.8 gm/dl (6.0-8.3) L 09/18/21 Albumin 3.5 gm/dl (3.4-5.0) 09/18/21 Globulin 2.3 gm/dl (2.5-4.0) L 09/18/21 Albumin/Globulin Ratio 1.5 (0.9-2) 09/18/21 Mg 1.3 mg/dl (1.7-2.4) L 09/19/21 05:48 09/19/21 Calcium Level 7.5 mg/dl (8.5-10.1) L 09/19/21 05:48 09/19/21 Prothromb Time International Ratio 1.0 (0.9-1.1) 09/18/21 13:28 09/18/21 Diagnostic Findings (Past 24 Hours) Abdomen/Pelvis CT 09/18/21 20:23 CT abd pelvis wo con CLINICAL HISTORY: Lactic acidosis, abdominal pain COMPARISON STUDY: 04/23/2021 CT DOSE: 1050.43 mGy.cm TECHNIQUE: Standard CT of the Abdomen and Pelvis was performed without IV contrast. The patient did not receive oral contrast. A dose lowering technique was utilized adhering to the principles of ALARA. FINDINGS: Lung base: There are small bilateral pleural effusions with bibasilar atelectasis. Abdominal cavity: There is no evidence for abdominal mass, adenopathy or ascites. There is a left inguinal hernia containing peritoneal fat. The patient is status post aortobifemoral bypass grafting. Minimal free air is present related to the recent surgery. The inflammatory changes present described below are completely separate from the surgical site. Liver: There is diffuse fatty infiltration of the liver with no focal hepatic parenchymal abnormality on these limited noncontrast images.. Spleen: The spleen is homogeneous in attenuation on these limited noncontrast images. Pancreas: There are diffuse edematous changes present surrounding the distal body and tail of pancreas most characteristic of pancreatitis. The head and body the pancreas are within normal limits. Peripancreatic fluid is present with no focal pseudocyst formation. Gall Bladder: The gallbladder is well distended with no evidence for cholelithiasis, wall thickening or pericholecystic edema.. Adrenal glands: The adrenal glands are normal in size and attenuation on these limited noncontrast images. Kidneys: There is diffuse edema present involving the left kidney when compared to the right with marked asymmetric left perirenal fluid and inflammatory changes present. Extensive perinephric stranding is present. Fluid extends down the left paracolic gutter. The findings are highly suspicious for the presence of left-sided pyelonephritis on this limited noncontrast study. The right kidney again appears normal. There is no evidence for gross renal mass, calculus or hydronephrosis bilaterally. Bowel: The bowel loops are normally placed within the abdomen and pelvis without evidence for dilatation or obstruction. There is diffuse sigmoid diverticulosis without evidence for diverticulitis. There are no inflammatory changes present. Appendix is not visualized. Bladder: Suarez catheter is present within the bladder. : There is no evidence for pelvic mass or adenopathy. The patient is status post hysterectomy. Vasculature: Atherosclerotic calcification is also present. Osseous structures: There is no acute osseous pathology. Degenerative changes are seen within the spine. IMPRESSION: 1. Status post aorto bifemoral grafting with minimal postoperative free air present. 2. Interval development of diffuse inflammatory changes surrounding the distal body and tail of pancreas suspicious for acute pancreatitis. 3. Interval development of diffuse swelling and edematous changes of the left kidney with perinephric stranding and edematous changes present. Fluid extends down the left paracolic gutter as well. These findings are highly suspicious for the presence of left-sided pyelonephritis on these limited noncontrast images. 4. Additional nonacute findings are delineated above. ACT 112: Negative or not required by law. Electronically signed by: Delvin Brower M.D. 09/18/2021 10:04 PM KUB X-Ray 09/19/21 07:45 XR KUB/Abdomen 1 view CLINICAL HISTORY: Evaluate NG tube placement. COMPARISON STUDY: 04/14/2020 TECHNIQUE: Single view of the abdomen. FINDINGS: The bowel gas pattern is within normal limits without evidence for dilatation or obstruction. NG tube is in place with its tip in the mid body of the stomach. There is no evidence for organomegaly or gross intra-abdominal mass. No abnormal calcifications are seen along the course of the urinary tracts bilaterally. No acute osseous pathology. Skin heather are present in the midline anteriorly. IMPRESSION: 1.No acute intra-abdominal abnormality. 2. Tip of NG tube within the mid body of the stomach. ACT 112: Negative or not required by law. Electronically signed by: Delvin Brower M.D. 09/19/2021 8:39 AM I & O Totals 24 Hours 09/18/21 09/19/21 09/20/21 06:59 06:59 06:59 Intake Total 9566.22 / 9566.22 1512.5 / 1512.5 Output Total 1550 / 1550 Balance 8016.22 / 8016.22 1512.5 / 1512.5 Cumulative 08/13/21 13:29 thru 09/19/21 12:31 Intake Total 02173.72 Output Total 1550 Balance 9528.72 RT Ventilator Mngmt (Last Documented) Ventilator Ordered Settings Respiratory Rate 20 09/19/21 12:30 Ventilator - PT Measurements Respiratory Rate 20 Coding Level of Care Code 81991 Subseq Hosp Care Lv 3 Diagnoses Peripheral arterial disease I73.9 Obstructive sleep apnea G47.33 HTN (hypertension) I10
[2021-09-19] MEDS ORDERED: Nursing to Pharmacy Communication SCH (13:00)
--- NOTE | 2021-09-19 13:51 | Electrocardiogram Report ---
Test Reason : Blood Pressure : / mmHG Vent. Rate : 139 BPM Atrial Rate : 139 BPM P-R Int : 136 ms QRS Dur : 082 ms QT Int : 306 ms P-R-T Axes : 020 -02 052 degrees QTc Int : 465 ms Sinus tachycardia Otherwise normal ECG When compared with ECG of 12-APR-2020 04:59, Vent. rate has increased BY 59 BPM Confirmed by Marcelo Martin ([id number]) on 09/19/2021 1:50:35 PM Referred By: Alex Maynard Confirmed By:Marcelo Martin
[2021-09-19] MEDS ORDERED: FUROSEMIDE INJ 20 MG/2 ML VIAL IV ONE (13:59)
[2021-09-19] MEDS: VENLAFAXINE HCL 50 MG TAB PO SCH ×2 (14:57→20:44)
[2021-09-19] MEDS ORDERED: MoRPHine SULFATE 2 MG/ML CARP ONE (15:43)
[2021-09-19] MEDS: ONDANSETRON INJ 2 MG/ML 2 ML VIAL IV PRN (20:38)
[2021-09-19] MEDS: AMITRIPTYLINE HCL 25 MG TAB PO SCH (20:43)
[2021-09-19] MEDS: levETIRAcetam ORAL SOLN 100MG/ML NG SCH (20:44)
[2021-09-19] MEDS ORDERED: levETIRAcetam ORAL SOLN 100MG/ML PO SCH (21:00)
[2021-09-19 21:24] LABS: Hematocrit (blood only) 36.1 % (37-47); Hemoglobin 11.8 g/dL (12.0-16.0); Mean Corpuscular Hemoglobin 30.7 pg (25-34); Mean Corpuscular Hgb Conc 32.7 g/dL (32-36); Mean Platelet Volume 10.2 fL (7.4-10.4); Platelet Count 227 K/uL (130-400); RDW Coefficient of Variation 13.1 % (11.5-14.5); RDW Standard Deviation 44.7 fL (36.4-46.3); Red Blood Count 3.84 M/uL (4.2-5.4); White Blood Count 18.15 K/uL (4.8-10.8)
[2021-09-19 21:41] LABS: BUN Creatinine Ratio 13.2 (10-20); Calcium 7.9 mg/dl (8.5-10.1); Creatinine Clr Calc Pharmacy 65.4 ml/min; Est GFR (African American) 62.7 ml/min; Est GFR (Non-African American) 54.1 ml/min; Magnesium 2.1 mg/dl (1.7-2.4); Phosphorus 2.4 mg/dl (2.5-4.9); Potassium 3.9 mmol/L (3.5-5.1)
[2021-09-20] MEDS: MoRPHine SULFATE 4 MG/ML 1 ML CARP\\VIAL IV PRN ×3 (02:20→19:39)
[2021-09-20 05:36] LABS: Basophils # (auto) 0.04 K/uL (0-0.2); Basophils % (auto) 0.2 %; Eosinophils # (auto) 0.21 K/uL (0-0.5); Eosinophils % (auto) 1.2 %; Hematocrit (blood only) 31.7 % (37-47); Hemoglobin 10.2 g/dL (12.0-16.0); Immature Granulocytes # (auto) 0.05 K/uL (0.00-0.02); Immature Granulocytes % (auto) 0.3 %; Lymphocytes # (auto) 2.13 K/uL (1.2-3.4); Lymphocytes % (auto) 12.2 %; Mean Corpuscular Hemoglobin 30.2 pg (25-34); Mean Corpuscular Hgb Conc 32.2 g/dL (32-36); Mean Corpuscular Volume 93.8 fL (80-100); Monocytes # (auto) 1.31 K/uL (0.11-0.59); Monocytes % (auto) 7.5 %; Neutrophils # (auto) 13.69 K/uL (1.4-6.5); Neutrophils % (auto) 78.6 %; Platelet Count 204 K/uL (130-400); RDW Coefficient of Variation 13.1 % (11.5-14.5); RDW Standard Deviation 45.2 fL (36.4-46.3); Red Blood Count 3.38 M/uL (4.2-5.4); White Blood Count 17.43 K/uL (4.8-10.8)
[2021-09-20 06:14] LABS: BUN Creatinine Ratio 12.7 (10-20); Calcium 7.8 mg/dl (8.5-10.1); Creatinine Clr Calc Pharmacy 63.2 ml/min; Est GFR (African American) 60.1 ml/min; Est GFR (Non-African American) 51.9 ml/min; Potassium 4.1 mmol/L (3.5-5.1)
[2021-09-20] MEDS ORDERED: SODIUM PHOSPHATE 3 MMOL/1 ML INFUSION IV STA (06:31)
[2021-09-20] MEDS ORDERED: SODIUM PHOSPHATE 15 MMOL in SODIUM CHLORIDE 0.9% 250 ML IV ONE (07:15)
[2021-09-20] MEDS: D5W AND 1/2NSS 1,000 ML IV SCH (07:23)
[2021-09-20] MEDS: MAGNESIUM SULFATE / D5W 1 GM/100 ML BAG IV SCH ×2 (07:24→09:21)
[2021-09-20] MEDS: ICU ELECTROLYTE REPLACEMENT PROTOCOL SCH (07:35)
[2021-09-20] MEDS: VENLAFAXINE HCL 50 MG TAB PO SCH ×3 (08:01→21:02)
[2021-09-20] MEDS: METOPROLOL SUCC 50MG EXT REL TAB PO SCH ×2 (08:01→21:02)
[2021-09-20] MEDS: cloNIDine HCL 0.1 MG TAB PO SCH (08:02)
[2021-09-20] MEDS: LOSARTAN POTASSIUM 50 MG TAB PO SCH (08:02)
[2021-09-20] MEDS: levETIRAcetam ORAL SOLN 100MG/ML NG SCH (08:03)
--- NOTE | 2021-09-20 08:26 | Surgery Progress Note ---
Date of Service September 20, 2021 Assessment & Plan (1) S/P aortobifemoral bypass surgery: Plan: Responded well during the night with volume. Edema around the left kidney most likely related to the need to ligate the left renal vein during the procedure. Will wean off NTG today. Will most likely start diuresis tomorrow. Overall during well after surgery Admission and Anticipated Discharge Date Admission Date: September 18, 2021 Subjective Patient is awake and alert. Responds normally to command Physical Exam Constitutional: WD/WN, vitals as above Respiratory: normal respiratory effort Auscultation: lungs clear to auscultation bilaterally Cardiovascular: Rate/Rhythm: regular rate, regular rhythm and + tachycardic Vessels: posterior tibial pulses present (doppler bilaterally) Extremities: normal capillary refill Gastrointestinal (Abdomen): Inspection/Auscultation: abdomen normal to inspection and + abdomen distended (slightly) Percussion/Palpation: + abdomen tender (along incision line) and abdomen soft Musculoskeletal: no cyanosis or clubbing, extremities motor strength 5/5 Neurologic: CN's II-XI intact bilaterally and moves all extremities Psychiatric: Orientation: alert and oriented x 3 Results & Data ([facility]) Vital Signs (Past 12 Hours) Vital Signs Temp Pulse Resp BP Pulse Ox 09/20/21 08:11 141 H 09/20/21 06:01 135 H 19 149/107 H 91 09/20/21 06:00 135 H 19 90 09/20/21 05:30 134 H 23 165/118 H 88 L 09/20/21 05:26 134 H 18 161/98 H 88 L 09/20/21 05:00 130 H 26 H 143/102 H 88 L 09/20/21 04:30 130 H 19 147/99 H 89 L 09/20/21 04:00 36.8 C 128 H 19 134/103 H 92 09/20/21 03:30 127 H 23 131/94 93 09/20/21 03:00 127 H 20 122/95 91 09/20/21 02:30 134 H 23 134/106 H 89 L 09/20/21 02:00 131 H 21 146/106 H 90 09/20/21 01:30 133 H 22 136/100 09/20/21 01:00 131 H 21 147/98 H 09/20/21 00:30 134 H 20 142/100 H 92 09/20/21 00:00 135 H 21 145/105 H 91 09/19/21 23:30 134 H 19 129/105 H 90 09/19/21 23:00 36.8 C 135 H 20 124/92 09/19/21 22:30 136 H 23 138/97 09/19/21 22:00 138 H 23 142/112 H 92 09/19/21 21:30 139 H 23 122/92 92 09/19/21 21:01 142 H 21 134/110 H 92 09/19/21 21:00 36.6 C 141 H 22 09/19/21 20:30 141 H 20 163/123 H 89 L
[2021-09-20] MEDS ORDERED: BUMETANIDE 1 MG in SYRINGE 0 ML IV ONE (08:30)
--- NOTE | 2021-09-20 09:23 | Critical Care Progress Note ---
Date of Service September 20, 2021 Assessment & Plan (1) Peripheral arterial disease: (2) Obstructive sleep apnea: (3) HTN (hypertension): Plan: Impression: 56-year-old female with complex history including sleep apnea (noncompliant with CPAP), hypertension, renal artery stenosis, obesity, and glucose intolerance status post elective aortic bifemoral bypass 09/18/2021. 24-hour events: Patient has been weaned off nitroglycerin. Her abdominal pain is improving. She is tolerating ice chips. Medications were restarted through her nasogastric tube. She has been up to the bedside commode. She remains tachycardic Recommendations: 1. Peripheral vascular disease: Status post aortobifem: Management per surgery. Continue neurovascular examination of the lower extremities. Analgesia per vascular surgery. Now off nitroglycerin. 2. Hypertension: Restarted oral medications via the nasogastric tube. Her tachycardia may be related to beta-blaine or clonidine withdrawal, will observe with restarting medication. Could consider increasing metoprolol and decreasing clonidine and losartan. 3. Hyperglycemia: Glycemic control per protocol. 4. Electrolyte abnormalities: ICU electrolyte replacement protocol 5. Moderate sleep disordered breathing: The patient apparently has not been compliant with CPAP in the past. Continue supplemental oxygen at night. If were unable to achieve adequate saturations, CPAP at 6 cm of water may need to be initiated. 6. History of COPD: Not bronchospastic currently. No indication for additional inhalers antibiotics or steroids at the current time. 7. Lactic acidosis: Cleared. 8. PT and OT. OOB to chair as tolerated. 9. Mild anemia: follow clinically. No sign of active bleeding currently. Thanks for the opportunity to participate in the care of this patient. We will continue to follow during her ICU stay. Feel free to contact us if we can be of additional assistance. Ultimate disposition per vascular surgery Admission and Anticipated Discharge Date Admission Date: September 18, 2021 Subjective Patient seen and examined. EMR reviewed. Discussed with overnight critical care ZAYNAB as well as with bedside critical care nurse. The patient continues to complain of some abdominal pain but feels that it is better today. She is having no numbness and tingling in her feet or legs. No chest pain or palpitations. She did become tachycardic when getting up to use the bedside commode. Review of Systems Review of Systems: All systems reviewed & are unremarkable except as noted in Subjective Physical Exam Constitutional: WD/WN, vitals as above Neck: trachea midline, no thyromegaly Respiratory: normal respiratory effort, lungs clear to auscultation Cardiovascular: RRR, no murmur, no edema Gastrointestinal (Abdomen): normal bowel sounds, soft, nontender, no hepatosplenomegaly Musculoskeletal: Extremities: extremities normal to inspection Skin: no rashes, warm and dry Lymphatic: no cervical lymphadenopathy Results & Data Results & Data ([facility] [place]) Vital Signs (Past 12 Hours) Vital Signs Temp Pulse Resp BP Pulse Ox 09/20/21 08:11 141 H 09/20/21 08:00 139 H 23 128/91 94 09/20/21 07:31 147 H 25 H 132/93 92 09/20/21 07:00 145 H 24 167/96 H 92 09/20/21 06:01 135 H 19 149/107 H 91 09/20/21 06:00 135 H 19 90 09/20/21 05:30 134 H 23 165/118 H 88 L 09/20/21 05:26 134 H 18 161/98 H 88 L 09/20/21 05:00 130 H 26 H 143/102 H 88 L 09/20/21 04:30 130 H 19 147/99 H 89 L 09/20/21 04:00 36.8 C 128 H 19 134/103 H 92 09/20/21 03:30 127 H 23 131/94 93 09/20/21 03:00 127 H 20 122/95 91 09/20/21 02:30 134 H 23 134/106 H 89 L 09/20/21 02:00 131 H 21 146/106 H 90 09/20/21 01:30 133 H 22 136/100 09/20/21 01:00 131 H 21 147/98 H 09/20/21 00:30 134 H 20 142/100 H 92 09/20/21 00:00 135 H 21 145/105 H 91 09/19/21 23:30 134 H 19 129/105 H 90 09/19/21 23:00 36.8 C 135 H 20 124/92 09/19/21 22:30 136 H 23 138/97 09/19/21 22:00 138 H 23 142/112 H 92 09/19/21 21:30 139 H 23 122/92 92 Critical Care Results & Data Vital Signs (Past 12 Hours) Vital Signs Temp Pulse Resp BP Pulse Ox 09/20/21 08:11 141 H 09/20/21 08:00 139 H 23 128/91 94 09/20/21 07:31 147 H 25 H 132/93 92 09/20/21 07:00 145 H 24 167/96 H 92 09/20/21 06:01 135 H 19 149/107 H 91 09/20/21 06:00 135 H 19 90 09/20/21 05:30 134 H 23 165/118 H 88 L 09/20/21 05:26 134 H 18 161/98 H 88 L 09/20/21 05:00 130 H 26 H 143/102 H 88 L 09/20/21 04:30 130 H 19 147/99 H 89 L 09/20/21 04:00 36.8 C 128 H 19 134/103 H 92 09/20/21 03:30 127 H 23 131/94 93 09/20/21 03:00 127 H 20 122/95 91 09/20/21 02:30 134 H 23 134/106 H 89 L 09/20/21 02:00 131 H 21 146/106 H 90 09/20/21 01:30 133 H 22 136/100 09/20/21 01:00 131 H 21 147/98 H 09/20/21 00:30 134 H 20 142/100 H 92 09/20/21 00:00 135 H 21 145/105 H 91 09/19/21 23:30 134 H 19 129/105 H 90 09/19/21 23:00 36.8 C 135 H 20 124/92 09/19/21 22:30 136 H 23 138/97 09/19/21 22:00 138 H 23 142/112 H 92 09/19/21 21:30 139 H 23 122/92 92 Lab & Micro Results (Past 24 Hours) RBC 3.38 M/uL (4.2-5.4) L 09/20/21 WBC 17.43 K/uL (4.8-10.8) H 09/20/21 Hgb 10.2 g/dL (12.0-16.0) L 09/20/21 Hct 31.7 % (37-47) L 09/20/21 MCV 93.8 fL (80-100) 09/20/21 MCH 30.2 pg (25-34) 09/20/21 MCHC 32.2 g/dL (32-36) 09/20/21 RDW Standard Deviation 45.2 fL (36.4-46.3) 09/20/21 RDW Coefficient of Variation 13.1 % (11.5-14.5) 09/20/21 Plt Count 204 K/uL (130-400) 09/20/21 MPV 10.0 fL (7.4-10.4) 09/20/21 Neutrophils (%) (Auto) 78.6 % 09/20/21 Lymphocytes (%) (Auto) 12.2 % 09/20/21 Monocytes # (Auto) 1.31 K/uL (0.11-0.59) H 09/20/21 Eosinophils # (Auto) 0.21 K/uL (0-0.5) 09/20/21 Immature Granulocyte % (Auto) 0.3 % 09/20/21 Neutrophils # (Auto) 13.69 K/uL (1.4-6.5) H 09/20/21 Lymphocytes # (Auto) 2.13 K/uL (1.2-3.4) 09/20/21 Monocytes # (Auto) 1.31 K/uL (0.11-0.59) H 09/20/21 Eosinophils # (Auto) 0.21 K/uL (0-0.5) 09/20/21 Basophils # (Auto) 0.04 K/uL (0-0.2) 09/20/21 Immature Granulocyte # (Auto) 0.05 K/uL (0.00-0.02) H 09/20/21 Na 135 mmol/L (136-145) L 09/20/21 K 4.1 mmol/L (3.5-5.1) 09/20/21 Cl 103 mmol/L (98-107) 09/20/21 CO2 27 mmol/L (21-32) 09/20/21 Anion Gap 5 (3-11) 09/20/21 BUN 15 mg/dl (6-23) 09/20/21 Creatinine 1.18 mg/dl (0.6-1.2) 09/20/21 Estimated GFR ( Amer) 60.1 ml/min 09/20/21 Estimated GFR (Non-Af Amer) 51.9 ml/min 09/20/21 BUN/Creatinine Ratio 12.7 (10-20) 09/20/21 Glu 160 mg/dl (70-99(Fasting)) H 09/20/21 Ca 7.8 mg/dl (8.5-10.1) L 09/20/21 Phosphorus Level 2.0 mg/dl (2.5-4.9) L 09/20/21 Mg 2.0 mg/dl (1.7-2.4) 09/20/21 05:21 09/20/21 Calcium Level 7.8 mg/dl (8.5-10.1) L 09/20/21 05:21 09/20/21 Microbiology 09/18/21 22:42 Aerobic Blood Culture - Preliminary Blood Anaerobic Blood Culture - Preliminary No growth in Anaerobic bottle after 24 hours. 09/18/21 22:51 Aerobic Blood Culture - Preliminary Blood No growth in Aerobic bottle after 24 hours. Anaerobic Blood Culture - Preliminary No growth in Anaerobic bottle after 24 hours. Diagnostic Findings (Past 24 Hours) Abdomen/Pelvis CT 09/18/21 20:23 CT abd pelvis wo con CLINICAL HISTORY: Lactic acidosis, abdominal pain COMPARISON STUDY: 04/23/2021 CT DOSE: 1050.43 mGy.cm TECHNIQUE: Standard CT of the Abdomen and Pelvis was performed without IV contrast. The patient did not receive oral contrast. A dose lowering technique was utilized adhering to the principles of ALARA. FINDINGS: Lung base: There are small bilateral pleural effusions with bibasilar atelectasis. Abdominal cavity: There is no evidence for abdominal mass, adenopathy or ascites. There is a left inguinal hernia containing peritoneal fat. The patient is status post aortobifemoral bypass grafting. Minimal free air is present related to the recent surgery. The inflammatory changes present described below are completely separate from the surgical site. Liver: There is diffuse fatty infiltration of the liver with no focal hepatic parenchymal abnormality on these limited noncontrast images.. Spleen: The spleen is homogeneous in attenuation on these limited noncontrast images. Pancreas: There are diffuse edematous changes present surrounding the distal body and tail of pancreas most characteristic of pancreatitis. The head and body the pancreas are within normal limits. Peripancreatic fluid is present with no focal pseudocyst formation. Gall Bladder: The gallbladder is well distended with no evidence for cholelithiasis, wall thickening or pericholecystic edema.. Adrenal glands: The adrenal glands are normal in size and attenuation on these limited noncontrast images. Kidneys: There is diffuse edema present involving the left kidney when compared to the right with marked asymmetric left perirenal fluid and inflammatory changes present. Extensive perinephric stranding is present. Fluid extends down the left paracolic gutter. The findings are highly suspicious for the presence of left-sided pyelonephritis on this limited noncontrast study. The right kidney again appears normal. There is no evidence for gross renal mass, calculus or hydronephrosis bilaterally. Bowel: The bowel loops are normally placed within the abdomen and pelvis without evidence for dilatation or obstruction. There is diffuse sigmoid diverticulosis without evidence for diverticulitis. There are no inflammatory changes present. Appendix is not visualized. Bladder: Suarez catheter is present within the bladder. : There is no evidence for pelvic mass or adenopathy. The patient is status post hysterectomy. Vasculature: Atherosclerotic calcification is also present. Osseous structures: There is no acute osseous pathology. Degenerative changes are seen within the spine. IMPRESSION: 1. Status post aorto bifemoral grafting with minimal postoperative free air present. 2. Interval development of diffuse inflammatory changes surrounding the distal body and tail of pancreas suspicious for acute pancreatitis. 3. Interval development of diffuse swelling and edematous changes of the left kidney with perinephric stranding and edematous changes present. Fluid extends down the left paracolic gutter as well. These findings are highly suspicious for the presence of left-sided pyelonephritis on these limited noncontrast images. 4. Additional nonacute findings are delineated above. ACT 112: Negative or not required by law. Electronically signed by: Delvin Brower M.D. 09/18/2021 10:04 PM I & O Totals 24 Hours 09/19/21 09/20/21 09/21/21 06:59 06:59 06:59 Intake Total 9566.22 / 9566.22 2712.5 / 2712.5 1134.28 / 1134.28 Output Total 1550 / 1550 1900 / 1900 125 / 125 Balance 8016.22 / 8016.22 812.5 / 812.5 1009.28 / 1009.28 Cumulative 08/13/21 13:29 thru 09/20/21 08:11 Intake Total 71651.00 Output Total 3575 Balance 9838.00 RT Ventilator Mngmt (Last Documented) Ventilator Ordered Settings Respiratory Rate 23 09/20/21 08:00 Fraction of Inspired Oxygen 3 09/19/21 08:00 Ventilator - PT Measurements Respiratory Rate 23 Coding Level of Care Code 84240 Subseq Hosp Care Lvl 3 Diagnoses Peripheral arterial disease I73.9 Obstructive sleep apnea G47.33 HTN (hypertension) I10
[2021-09-20] MEDS ORDERED: STAT IV STA (09:28)
[2021-09-20] MEDS ORDERED: CALCIUM GLUCONATE 10% 2,000 MG in DEXTROSE 5% 50 ML IV ONE (09:45)
[2021-09-20] MEDS: ENOXAPARIN INJ 40 MG/0.4 ML SYR SQ SCH ×2 (10:18→21:03)
[2021-09-20] MEDS: AMITRIPTYLINE HCL 25 MG TAB PO SCH (21:03)
[2021-09-20] MEDS: levETIRAcetam 500 MG TAB PO SCH (21:15)
[2021-09-21] MEDS: MoRPHine SULFATE 4 MG/ML 1 ML CARP\\VIAL IV PRN ×2 (02:01→06:24)
[2021-09-21 05:35] LABS: Basophils # (auto) 0.03 K/uL (0-0.2); Basophils % (auto) 0.2 %; Eosinophils # (auto) 0.58 K/uL (0-0.5); Eosinophils % (auto) 4.8 %; Hemoglobin 8.4 g/dL (12.0-16.0); Immature Granulocytes # (auto) 0.04 K/uL (0.00-0.02); Immature Granulocytes % (auto) 0.3 %; Lymphocytes # (auto) 1.83 K/uL (1.2-3.4); Mean Corpuscular Hemoglobin 30.5 pg (25-34); Mean Corpuscular Hgb Conc 32.3 g/dL (32-36); Mean Corpuscular Volume 94.5 fL (80-100); Mean Platelet Volume 9.8 fL (7.4-10.4); Monocytes # (auto) 0.64 K/uL (0.11-0.59); Monocytes % (auto) 5.3 %; Neutrophils # (auto) 9.05 K/uL (1.4-6.5); Neutrophils % (auto) 74.4 %; Platelet Count 195 K/uL (130-400); RDW Coefficient of Variation 13.1 % (11.5-14.5); RDW Standard Deviation 45.1 fL (36.4-46.3); Red Blood Count 2.75 M/uL (4.2-5.4); White Blood Count 12.17 K/uL (4.8-10.8)
[2021-09-21 05:57] LABS: BUN Creatinine Ratio 13.9 (10-20); Creatinine Clr Calc Pharmacy 73.5 ml/min; Est GFR (African American) 72.6 ml/min; Est GFR (Non-African American) 62.6 ml/min; Phosphorus 2.2 mg/dl (2.5-4.9); Potassium 3.5 mmol/L (3.5-5.1)
[2021-09-21] MEDS: D5W AND 1/2NSS 1,000 ML IV SCH (06:24)
[2021-09-21] MEDS: levETIRAcetam ORAL SOLN 100MG/ML NG SCH (08:01)
[2021-09-21] MEDS: levETIRAcetam 500 MG TAB PO SCH ×2 (09:24→20:12)
[2021-09-21] MEDS: LOSARTAN POTASSIUM 50 MG TAB PO SCH (09:24)
[2021-09-21] MEDS: CLOPIDOGREL BISULFATE 75 MG TAB PO SCH (09:24)
[2021-09-21] MEDS: cloNIDine HCL 0.1 MG TAB PO SCH (09:27)
[2021-09-21] MEDS: VENLAFAXINE HCL 50 MG TAB PO SCH ×3 (09:28→20:12)
[2021-09-21] MEDS: METOPROLOL SUCC 50MG EXT REL TAB PO SCH ×2 (09:28→20:11)
[2021-09-21] MEDS: ENOXAPARIN INJ 40 MG/0.4 ML SYR SQ SCH ×2 (09:29→21:08)
[2021-09-21] MEDS ORDERED: SODIUM CHLORIDE 0.9% 250 ML IV PRN ×2 (11:09→13:54)
--- NOTE | 2021-09-21 11:23 | Surgery Progress Note ---
Date of Service September 21, 2021 Assessment & Plan (1) S/P aortobifemoral bypass surgery: Plan: Patient doing well. Heart rate and BP much better. Will let her slowly diurese her fluid load. Up and ambulate. Will transfer to floor. Admission and Anticipated Discharge Date Admission Date: September 18, 2021 Subjective No complaints. Claims her feet feel much better. Physical Exam Constitutional: WD/WN, vitals as above Respiratory: normal respiratory effort and + respiratory distress Auscultation: lungs clear to auscultation bilaterally Cardiovascular: RRR, no murmur, no edema Vessels: posterior tibial pulses present (doppler) and dorsalis pedis pulses present (doppler) Gastrointestinal (Abdomen): Inspection/Auscultation: abdomen normal to inspection; abdomen not distended Percussion/Palpation: abdomen soft; abdomen nontender Musculoskeletal: no cyanosis or clubbing, extremities motor strength 5/5 Neurologic: CN's II-XI intact bilaterally and moves all extremities Results & Data ([facility]) Vital Signs (Past 12 Hours) Vital Signs Temp Pulse Resp Pulse Ox 09/21/21 09:37 36.9 C 09/21/21 07:00 91 H 14 95 09/21/21 00:00 102 H
[2021-09-21] MEDS: oxyCODONE/ACETAMINOPHEN 5mg/325mg TAB PO PRN ×2 (14:50→21:38)
[2021-09-21] MEDS: AMITRIPTYLINE HCL 25 MG TAB PO SCH (20:11)
[2021-09-22 05:47] LABS: Hemoglobin 9.5 g/dL (12.0-16.0)
[2021-09-22] MEDS: oxyCODONE/ACETAMINOPHEN 5mg/325mg TAB PO PRN ×3 (06:04→19:57)
[2021-09-22 06:11] LABS: BUN Creatinine Ratio 16.8 (10-20); Calcium 8.3 mg/dl (8.5-10.1); Creatinine Clr Calc Pharmacy 77.6 ml/min; Est GFR (African American) 78.2 ml/min; Est GFR (Non-African American) 67.4 ml/min; Potassium 3.4 mmol/L (3.5-5.1)
[2021-09-22] MEDS: METOPROLOL SUCC 50MG EXT REL TAB PO SCH ×2 (08:42→20:11)
[2021-09-22] MEDS: CLOPIDOGREL BISULFATE 75 MG TAB PO SCH (08:42)
[2021-09-22] MEDS: LOSARTAN POTASSIUM 50 MG TAB PO SCH (08:42)
[2021-09-22] MEDS: levETIRAcetam 500 MG TAB PO SCH ×2 (08:42→20:11)
[2021-09-22] MEDS: VENLAFAXINE HCL 50 MG TAB PO SCH ×3 (08:42→20:11)
[2021-09-22] MEDS: cloNIDine HCL 0.1 MG TAB PO SCH (08:44)
--- NOTE | 2021-09-22 09:28 | Surgery Progress Note ---
Date of Service September 22, 2021 Assessment & Plan (1) S/P aortobifemoral bypass surgery: Plan: Doing well Needs to ambulate May be ready for d/c Friday. Admission and Anticipated Discharge Date Admission Date: September 18, 2021 Subjective Complaining of mild abd discomfort. Tolerating diet. Passing flatus but no bowel movement yet. Ambulating in room Physical Exam Constitutional: WD/WN, vitals as above Cardiovascular: Rate/Rhythm: regular rate and regular rhythm Extremities: normal capillary refill pedal pulses to doppler Gastrointestinal (Abdomen): Inspection/Auscultation: abdomen normal to inspection; abdomen not distended Percussion/Palpation: + abdomen tender (along the incision) and abdomen soft; no guarding Musculoskeletal: no cyanosis or clubbing, extremities motor strength 5/5 Skin: + incision (dressing intact) Psychiatric: Orientation: alert and oriented x 3 Results & Data ([facility]) Vital Signs (Past 12 Hours) Vital Signs Temp Pulse Resp BP Pulse Ox 09/22/21 07:57 37.1 C 93 H 18 122/81 91 09/22/21 06:13 98 H 18 172/112 H 91 09/21/21 22:27 36.6 C 92 H 16 164/95 H 93
[2021-09-22] MEDS: ENOXAPARIN INJ 40 MG/0.4 ML SYR SQ SCH ×2 (10:04→22:41)
[2021-09-22] MEDS: ONDANSETRON INJ 2 MG/ML 2 ML VIAL IV PRN (12:27)
[2021-09-22] MEDS ORDERED: cloNIDine HCL 0.1 MG TAB PO ONE (15:47)
[2021-09-22] MEDS: AMITRIPTYLINE HCL 25 MG TAB PO SCH (20:11)
[2021-09-23] MEDS: oxyCODONE/ACETAMINOPHEN 5mg/325mg TAB PO PRN ×3 (04:10→17:53)
[2021-09-23] MEDS: LOSARTAN POTASSIUM 50 MG TAB PO SCH (08:16)
[2021-09-23] MEDS: CLOPIDOGREL BISULFATE 75 MG TAB PO SCH (08:16)
[2021-09-23] MEDS: levETIRAcetam 500 MG TAB PO SCH ×2 (08:16→20:07)
[2021-09-23] MEDS: METOPROLOL SUCC 50MG EXT REL TAB PO SCH ×2 (08:16→20:07)
[2021-09-23] MEDS: VENLAFAXINE HCL 50 MG TAB PO SCH ×3 (08:16→20:08)
[2021-09-23] MEDS: cloNIDine HCL 0.1 MG TAB PO SCH (08:18)
[2021-09-23] MEDS ORDERED: ceFAZolin 2000MG 2,000 MG/15 ML SYR IV ONE (09:32)
--- NOTE | 2021-09-23 09:44 | Surgery Progress Note ---
Date of Service September 23, 2021 Assessment & Plan (1) Ischemia of right lower extremity: Plan: This patient developed acute ischemia of the right lower extremity after PT this am. Her right lower extremity is severely ischemic and needs emergency revasclarization. I have discussed the risks options and benefits of the procedure with the patient. The patient understands the risks options and benefits and agrees to the procedure. Admission and Anticipated Discharge Date Admission Date: September 18, 2021 Subjective Patient with sudden onset right leg pain and numbness of right foot Physical Exam Constitutional: + acute distress (pain in right lower extremity) Cardiovascular: Vessels: femoral pulses present (doppler signals in both groins); + posterior tibial pulses abnormal (no doppler on right) and + dorsalis pedis pulses abnormal (no doppler on right) Extremities: + abnormal capillary refill (markedly decreased on right) Neurologic: Motor/Sensory: + abnormal movement (decrease motion of right foot) and + sensory deficit (right foot with decreased sensation) Results & Data ([facility]) Vital Signs (Past 12 Hours) Vital Signs Temp Pulse Resp BP Pulse Ox 09/23/21 07:29 37 C 90 18 145/86 H 97 09/22/21 23:00 36.9 C 81 20 108/76 94
[2021-09-23] MEDS ORDERED: HEPARIN SOD (PORCINE) 1000 UNIT/ML IV ONE ×2 (09:45→21:15)
--- NOTE | 2021-09-23 09:46 | Anesthesiology Consultation ---
Date of Service September 23, 2021 Assessment & Plan (1) Encounter for pre-operative examination: Chart Review Chart Review: data entry initiated History Surgery Operation Date: 09/18/21 08:00 Proposed Procedures p Aorto-Bifemoral Bypass - Alex Maynard MD Height/Weight Height: 5 ft 6 in Weight: 94.8 kg Allergies Allergy/AdvReac Type Severity Reaction Status Date / Time napoles Allergy Intermediate Hives Verified 09/19/21 06:04 (green/hartman beans) doxycycline Allergy Intermediate Hives, Verified 09/19/21 06:04 vomiting Iodinated Contrast Media Allergy Intermediate Large Verified 09/19/21 06:04 hives, vomiting, "feeling hot" iodine Allergy Intermediate Hives, Verified 09/19/21 06:04 vomiting latex Allergy Intermediate Rash Verified 09/19/21 06:04 loperamide Allergy Intermediate Hives, Verified 09/19/21 06:04 vomiting meperidine Allergy Intermediate Hives, Verified 09/19/21 06:04 vomiting strawberry Allergy Intermediate Hives Verified 09/19/21 06:04 tomato Allergy Intermediate Hives Verified 09/19/21 06:04 prochlorperazine Allergy Mild N/V, Verified 09/19/21 06:04 itchiness Medications Home Medications Medication Instructions Recorded Confirmed Last Taken multivitamin 1 tab PO QAM 12/16/18 09/18/21 09/17/21 08:00 amlodipine 5 mg tablet 5 mg PO UD 12/23/20 09/18/21 04/17/21 cholecalciferol (vitamin D3) 50 2,000 unit PO PM #90 tab 01/02/21 09/18/21 09/17/21 21:00 mcg (2,000 unit) tablet metoprolol succinate 100 mg 50 mg PO BID #180 tab 03/28/21 09/18/21 09/18/21 05:00 tablet,extended release 24 hr (Toprol XL) losartan 100 mg tablet (Cozaar) 50 mg PO QAM 04/16/21 09/18/21 09/17/21 08:00 amitriptyline 25 mg tablet 25 mg PO HS #90 tab 05/02/21 09/18/21 09/17/21 21:00 clonidine HCl 0.1 mg tablet 0.1 mg PO QAM #90 tab 05/02/21 09/18/21 09/18/21 05:00 clopidogrel 75 mg tablet (Plavix) 75 mg PO QAM #90 tab 05/02/21 09/18/21 09/11/21 levetiracetam 1,000 mg tablet 1,000 mg PO BID #180 tab 05/02/21 09/18/21 09/18/21 05:00 (Keppra) ondansetron HCl 4 mg tablet 4 mg PO Q8H PRN #30 tab 06/27/21 09/18/21 09/04/21 venlafaxine 150 mg 150 mg PO QAM #90 cap 06/27/21 09/18/21 09/18/21 05:00 capsule,extended release 24 hr rosuvastatin 40 mg tablet (Crestor) 40 mg PO HS 09/11/21 09/18/21 09/17/21 21:00 Active Medications Generic Name Dose Route Start Last Admin Trade Name Freq PRN Reason Stop Dose Admin Amitriptyline HCl 25 mg 09/18/21 21:00 09/22/21 20:11 Amitriptyline Hcl 25 Mg Tab PO 10/18/21 20:59 25 mg HS MIKE Administration Clonidine HCl 0.1 mg 09/19/21 09:00 09/23/21 08:18 Clonidine Hcl 0.1 Mg Tab PO 10/19/21 08:59 Not Given QAM MIKE Clopidogrel Bisulfate 75 mg 09/21/21 09:00 09/23/21 08:16 Clopidogrel Bisulfate 75 Mg Tab PO 10/21/21 08:59 75 mg QAM MIKE Administration Enoxaparin Sodium 40 mg 09/19/21 10:00 09/22/21 22:41 Enoxaparin Inj 40 Mg/0.4 Ml Syr SQ 10/19/21 09:59 40 mg Q12H MIKE Administration Levetiracetam 1,000 mg 09/20/21 21:00 09/23/21 08:16 Levetiracetam 500 Mg Tab PO 10/20/21 20:59 1,000 mg BID MIKE Administration Losartan Potassium 50 mg 09/19/21 09:00 09/23/21 08:16 Losartan Potassium 50 Mg Tab PO 10/19/21 08:59 50 mg QAM MIKE Administration Metoprolol Succinate 50 mg 09/18/21 21:00 09/23/21 08:16 Metoprolol Succ 50mg Ext Rel Tab PO 10/18/21 20:59 50 mg BID MIKE Administration Ondansetron HCl 4 mg 09/18/21 16:34 09/22/21 12:27 Ondansetron Inj 2 Mg/Ml 2 Ml Vial IV 10/18/21 16:33 4 mg Q6H PRN Administration Nausea And Vomiting Oxycodone/Acetaminophen 2 tab 09/21/21 13:59 09/23/21 09:11 Oxycodone/Acetaminophen 5mg/325mg Tab PO 10/05/21 13:58 2 tab Q4H PRN Administration Pain Venlafaxine HCl 50 mg 09/19/21 14:00 09/23/21 08:16 Venlafaxine Hcl 50 Mg Tab PO 10/19/21 13:59 50 mg TID MIKE Administration NPO Date Last Intake of Fluids: 09/17/21 Time Last Intake of Fluids: 21:00 Last Intake of Fluids Comment: sip of water for meds at 0500 today Date Last Intake of Solids: 09/17/21 Time Last Intake of Solids: 18:00 Past Medical History Medical History Anxiety disorder CAD (coronary artery disease) Mild-moderate non-obstructive Carotid stenosis < 50% stenosis B/L per US 12/16/18 Cervical disc disorder FULL ROM Cyclic vomiting syndrome no GI pathology on EGD, US, CT of abd/pelvis, celiac testing and GES per 04/2020 GI consult: biliary w/u and upper GI study recommended (upper GI study neg per d/c summary), cannabis cessation, continue Protonix and prn Zofran Depression GERD (gastroesophageal reflux disease) History of diverticulitis of colon HTN (hypertension) h/o multiple hypertensive urgency episodes, renal artery stenosis, following with cardiology and vascular surgery Hyperlipidemia Multiple thyroid nodules New onset seizure 07/17/2019 r/t hypertensive emergency -> encephalopathy. last seizure was ~S /Summer 2019 per pt NSTEMI (non-ST elevated myocardial infarction) 2017 [facility], [place]. Cath performed showed mild to moderate non-obstructive CAD. Obstructive sleep apnea mod-severe per PCP records (non-compliant) On anticoagulant therapy takes plavix daily to prevent a stroke d/t hypertension Peripheral arterial disease Bilateral external iliac artery occlusion with common femoral artery reconsti tution-02/2021 aorta with runoff CTA, follows with Dr. Maynard Prediabetes PRES (posterior reversible encephalopathy syndrome) has since caused seizures that started in 2019. following with PCP, last seizure per pt 08/2019 per PCP records Pulmonary emphysema Renal artery stenosis following with Dr Maynard Takotsubo cardiomyopathy 2016. Admitted [facility], [place], full cardiac workup including cath. EF at the time 40%, now resolved to 60-65% on echo 2018. Transient cerebrovascular ischemia pt unaware and denies Past Family History Family History Father Family history of stomach cancer Malignant neoplasm of esophagus Stomach cancer Myocardial infarction Stroke Uncle Throat cancer Family history of cancer FAMILY HISTORY OF CANCER - UNCLE - [place] [place] FAMILY HISTORY OF CANCER - AUNT - ? KIND Grandmother (Maternal) Bone cancer Breast cancer Mother No problems noted. Brother Lung cancer Other Family history of diabetes mellitus No family history of adverse response to anesthesia No pertinent family history Denies family history of Colon cancer Ovarian cancer Prostate cancer Crohn's disease IBD (inflammatory bowel disease) Past Surgical History Surgical History H/O cervical spine surgery ACDF C4-7 Dr. [place]: Grade 1 view, Bojorquez#2 and ETT#7.5 atraumatic x 1. No issues per anesthesia postop progress note. History of cardiac cath CT - NO STENTS (per pt report, this cath not noted in cardiology notes) 2017, NSTEMI. NO INTERVENTION. History of esophagogastroduodenoscopy (EGD) History of hernia surgery right inguinal hernia repair History of hysterectomy History of ovarian cystectomy Social History Smoking Status: Never smoker tobacco type: cigarettes Do You Dip or Chew Tobacco: No Smoking End Date: 10-12 YR AGO Hx Alcohol Use: No Alcohol type: beer alcohol intake frequency: holidays/special occasions only Hx Substance Use: No substance use type: marijuana Substance Use Type Other:: occ for pain-advised Physical Exam Vital Signs Last Vital Signs Temp 98.6 F 09/23/21 07:29 Pulse 90 09/23/21 07:29 Resp 18 09/23/21 07:29 BP 145/86 H 09/23/21 07:29 Pulse Ox 97 09/23/21 07:29 Testing Laboratory Results 09/22/21 05:30 09/22/21 05:30 PT 10.1 Seconds (9.0-12.0) 09/18/21 13:28 INR 1.0 (0.9-1.1) 09/18/21 13:28 APTT 23.9 Seconds (21.0-31.0) 09/18/21 13:28 Urine Color Yellow 09/18/21 23:05 Urine Appearance Clear (Clear) 09/18/21 23:05 Urine pH 5.0 (4.5-7.5) 09/18/21 23:05 Ur Specific [place] 1.020 (1.000-1.030) 09/18/21 23:05 Urine Protein 2+ (Negative) H 09/18/21 23:05 Urine Glucose (UA) Negative (Negative) 09/18/21 23:05 Urine Ketones Negative (Negative) 09/18/21 23:05 Urine Nitrite Negative (Negative) 09/18/21 23:05 Ur Leukocyte Esterase Negative (Negative) 09/18/21 23:05 Urine WBC (Auto) 1-5 /hpf (0-5) 09/18/21 23:05 Urine RBC (Auto) >30 /hpf (0-4) H 09/18/21 23:05 U Hyaline Cast (Auto) 5-10 /lpf (0-5) H 09/18/21 23:05 U Epithel Cells (Auto) 10-20 /lpf (0-5) H 09/18/21 23:05 Urine Bacteria (Auto) Negative (Negative) 09/18/21 23:05 Blood Type O Positive 09/21/21 04:50 Antibody Screen NEGATIVE 09/21/21 04:50 09/18/21 22:42 Aerobic Blood Culture - Preliminary Blood No growth in Aerobic bottle after 48 hours. Anaerobic Blood Culture - Preliminary No growth in Anaerobic bottle after 48 hours. 09/18/21 22:51 Aerobic Blood Culture - Preliminary Blood No growth in Aerobic bottle after 48 hours. Anaerobic Blood Culture - Preliminary No growth in Anaerobic bottle after 48 hours. Electrocardiogram Date: 09/14/21 NSR, rate 81 bpm Left axis deviation Chest X-Ray Date: 09/14/21 FINDINGS: Lung volumes are normal. Lungs are clear. There is no pneumothorax or pleural effusion. Cardiac size is normal. Mediastinal contours are normal. There is no evidence for pulmonary edema. Postoperative findings within the cervical spine and an old right seventh rib fracture incidentally noted. IMPRESSION: No acute cardiopulmonary findings. Echocardiogram Date: 10/30/20 EF 60-65% Normal left ventricular systolic function Borderline cLVH No regional wall motion abnormalities No significant valvular pathology Stress Test Date: 09/12/21 dobutamine negative for ischemia at 90% MPHR EF 65% no regional wall motion abnormalities at rest Cardiac Catheterization Date: 06/28/17 Mild to moderate non-obstructive coronary artery disease 40% mid RCA disease LV wall motion abnormalities consistent with Takotsubo's cardiomyopathy Other Testing Abdomen/pelvis CT 04/23/2021 Lung bases: The heart is normal in size and without pericardial effusion. The lung bases are clear noting dependent atelectasis. There is a small hiatal hernia. Liver: The unenhanced liver is enlarged, measuring 20.9 cm in length. The liver demonstrates diffusely diminished attenuation consistent with hepatic steatosis. Fatty sparing is seen adjacent to gallbladder fossa. There is no intrahepatic biliary ductal dilatation. Gallbladder: Unremarkable. Spleen: Normal in size and attenuation. Pancreas: Unremarkable. Adrenal glands: Unremarkable. Kidneys: The unenhanced kidneys are normal in size and without hydronephrosis. There are no renal calculi identified. There is no evidence of contour deforming renal mass lesion. Abdominal vasculature: The abdominal aorta is normal in course and caliber noting moderate to advanced atherosclerotic calcification. Bowel: There is moderate to advanced colonic diverticulosis without CT evidence of acute diverticulitis. No obstruction is identified. The appendix is well- visualized and normal. Peritoneum: There is no intraperitoneal free air or abdominal ascites. Lymphadenopathy: None. Pelvic viscera: The bladder is normal as visualized. The uterus is surgically absent. No adnexal lesion is seen. There is a fat-containing left inguinal hernia. Skeletal structures: No lytic or blastic lesions are seen. LUMBAR SPINE: Vertebral body height and alignment are maintained throughout the lumbar spine. The transverse and spinous processes are intact. There is no evidence of spondylolysis. Small anterior and lateral marginal osteophytes are seen throughout. There is mild to moderate disc space narrowing at L4-L5 with associated vacuum phenomenon and endplate sclerosis. Mild disc space narrowing is seen at the remaining lumbar levels. Are large left lateral disc extrusions at L2-L3 and L3-L4. These likely impinge on the exiting left L2 and L3 nerve roots. Broad-based posterior disc bulge is noted at L4-L5. Findings suggest previous right hemilaminectomy at L5. The paraspinous soft tissues are within normal limits. IMPRESSION: 1. There are no acute infectious or inflammatory findings in the abdomen or pelvis. 2. No acute bony abnormality is seen involving the lumbar spine. 3. Lumbar disc disease as above. This is similar to the 01/02/2021 examination. 4. Hepatomegaly and hepatic steatosis. 5. Moderate to advanced colonic diverticulosis without CT evidence of acute diverticulitis. 6. Additional findings as above. Aorta w/runoff CTA 02/19/2021 IMPRESSION: 1. Bilateral external iliac artery occlusion with common femoral artery reconstitution 2. No evidence of hemodynamically significant superficial femoral or popliteal artery stenosis 3. Three-vessel runoff bilaterally to the ankle 4. No evidence of celiac, superior mesenteric or renal artery stenosis Brain MRI 12/12/2020 IMPRESSION: 1. No acute intracranial abnormality is identified on today's examination. 2. Foci of signal abnormality within the posterior parietal lobes at the vertex seen on 10/29/2020 have resolved. This likely represented PRES. 3. Nonspecific white matter abnormality is similar to prior examination. Top differential considerations remain age advanced microangiopathic change versus a demyelinating process.
[2021-09-23] MEDS ORDERED: fentaNYL citrate 100 MCG/2 ML VIAL ONE ×2 (09:50→11:05)
[2021-09-23] MEDS ORDERED: PROPOFOL IV EMULSION 10 MG/ML 20 ML VIAL IV ONE (09:50)
[2021-09-23] MEDS ORDERED: SUCCINYLCHOLINE CHLORIDE 20 MG/ML 10 ML VIAL IV ONE (09:50)
[2021-09-23] MEDS ORDERED: LIDOCAINE 2% 2 ML VIAL/AMP(20MG/ML) INFIL ONE (09:50)
[2021-09-23] MEDS ORDERED: HYDROmorphone INJ 0.5 MG/0.5 ML SYR IV STA (10:18)
[2021-09-23] MEDS ORDERED: HYDROmorphone INJ 1 MG/ML SYRINGE IV PRN (10:28)
[2021-09-23] MEDS ORDERED: ePHEDrine sulfate 50 MG/ML AMP IV PRN (10:28)
[2021-09-23] MEDS ORDERED: fentaNYL citrate 100 MCG/2 ML VIAL IV PRN (10:28)
[2021-09-23] MEDS ORDERED: ATROPINE SULFATE 0.1 MG/ML 10ML SYR IV PRN (10:28)
[2021-09-23] MEDS ORDERED: ONDANSETRON INJ 2 MG/ML 2 ML VIAL IV PRN (10:28)
[2021-09-23] MEDS ORDERED: HEPARIN (PORCINE) 1000 UNIT/ML 10 ML (CATH LAB USE ONLY) ONE (10:39)
[2021-09-23] MEDS ORDERED: GELATIN SPONGE SZ 100 ONE (10:39)
[2021-09-23] MEDS ORDERED: ceFAZolin 330 MG/ML 1 GM VIAL ONE ×2 (10:39→10:59)
[2021-09-23] MEDS ORDERED: THROMBIN 5000 UNITS KIT ONE (10:39)
[2021-09-23] MEDS: ENOXAPARIN INJ 40 MG/0.4 ML SYR SQ SCH (10:49)
[2021-09-23] MEDS ORDERED: THROMBIN FOR SOLN 20000 UNIT KIT ONE (10:50)
[2021-09-23] MEDS ORDERED: HEPARIN SOD (PORCINE) 1000 UNIT/ML ONE (10:59)
[2021-09-23] MEDS ORDERED: ePHEDrine sulfate 50 MG/ML SYR ONE (11:24)
[2021-09-23] MEDS ORDERED: PHENYLEPHRINE HCL 10 MG/ML VIAL ONE (11:48)
--- NOTE | 2021-09-23 12:31 | Operative Report ---
Post Operative Report Pre & Post Diagnosis Operation Date: 09/18/21 08:00 Pre-Op Diagnosis: Bilateral Lower Extremity Occlusion Post-Op Diagnosis: Bilateral Lower Extremity Occlusion Operation Date: 09/23/21 10:00 Pre-Op Diagnosis: Bilateral Lower Extremity Occlusion Post-Op Diagnosis: Bilateral Lower Extremity Occlusion I identified the patient and participated in the time-out.: Yes Procedure Operation Date: 09/18/21 08:00 Actual Procedures p Aorto-Bifemoral Bypass(Bilateral) - Alex Maynard MD Operation Date: 09/23/21 10:00 Actual Procedures p Thrombectomy Right Lower Extremity(Right) - Alex Maynard MD Surgeon Alex Maynard MD Gambling Supervisor none Estimated Blood Loss 150 Findings Consistent with Post-Op Diagnosis Specimens none Anesthesia Type General Complications none Disposition Accompanied Patient To Recovery: No Disposition: Recovery Room Indications This is a 56-year-old female who earlier this week underwent aortobifemoral bypass for bilateral iliac artery occlusions. She did well. After walking this morning she returned to her chair at which time she developed sudden onset of right lower extremity pain and numbness. On exam it appeared that she had occluded the right lower extremity arteries. Thrombectomy and possible bypass was recommended. I have discussed the risks options and benefits of the procedure with the patient. The patient understands the risks options and benefits and agrees to the procedure. Description of Procedure The patient was taken to the operating room and placed in the supine position. The right lower extremity both groins were prepped and draped in a sterile manner after general anesthesia was accomplished. The patient was identified and a timeout was performed. The incision in the right groin was reopened. There is no pulse felt in the right limb of the aortobifemoral graft or common f emoral artery. The superficial profunda and graft were then clamped. A small graftotomy was performed over the wilkerson of the graft. Using #3 Rashaun distally and a #4 Rashaun proximally large amount of clot was removed from the right lower extremity. Good backbleeding was seen and excellent forward bleeding was noted. The arteriotomy was then closed with a running 5-0 Prolene suture. At that point Doppler pulses were then obtained. I cannot hear Doppler pulses in the foot either in the dorsalis pedis posterior tib or peroneal artery. The foot still appeared pale. We then clamped the superficial femoral artery just beyond its origin. A transverse arteriotomy was then performed. Using a #3 Rashaun we were able to extract another clot from the right lower extremity. Excellent backbleeding was then seen at that time. The arteriotomy was then closed with interrupted 6-0 Prolene's. Clamps were then removed. At that point we heard a good peroneal Doppler signal just above the ankle. The foot was starting to pink up but I still cannot appreciate Dopplers of the foot. That point we decided to close the groin. Adequate hemostasis of the groin was then obtained. It was then irrigated with antibiotic solution. The wound was then closed with a running 2-0 Vicryl suture for the femoral sheath and a running 3-0 Vicryl suture for subtendinous layer. Skin edges were approximated with a staple device. We then listen for Dopplers again at this point she had a good posterior tibial pulse to Doppler with pink toes and good capillary refill. A Prevena dressing was then placed over the wound.The patient left the operation room in satisfactory condition and tolerated the procedure well. All needle and sponge counts were correct at the end of the procedure. I attest to the content of the Intraoperative Record and any orders documented therein. Any exceptions are noted below.
--- NOTE | 2021-09-23 12:49 | Anesthesiology Progress Note ---
Date of Service September 23, 2021 Anesthesia Post Procedure Vital Signs Vital Signs: Temp Pulse Resp BP BP Pulse Ox 09/23/21 11:14 94 09/23/21 07:29 98.6 F 90 18 145/86 H 97 09/22/21 23:00 98.4 F 81 20 108/76 94 09/22/21 20:08 94 H 175/115 H 175/110 H 94 09/22/21 15:32 72 142/91 H 09/22/21 15:03 99.1 F 95 H 18 195/118 H 94 Pain Intensity Abdomen: Pain Intensity: 8 Transfer of Care Handoff Completed per policy Notes Mental Status: alert / awake / arousable and participated in evaluation Patient Amnestic to Procedure: Yes Nausea / Vomiting: adequately controlled Pain: adequately controlled Airway Patency, RR, SpO2: stable & adequate BP & HR: stable & adequate Hydration State: stable & adequate Anesthetic Complications: no major complications apparent and Pt Satisfied with anesthetic care
[2021-09-23 12:58] LABS: Hematocrit (blood only) 28.7 % (37-47); Hemoglobin 9.6 g/dL (12.0-16.0); Mean Corpuscular Hemoglobin 30.6 pg (25-34); Mean Corpuscular Hgb Conc 33.4 g/dL (32-36); Mean Corpuscular Volume 91.4 fL (80-100); Mean Platelet Volume 9.4 fL (7.4-10.4); Platelet Count 310 K/uL (130-400); RDW Coefficient of Variation 13.2 % (11.5-14.5); RDW Standard Deviation 44.3 fL (36.4-46.3); Red Blood Count 3.14 M/uL (4.2-5.4); White Blood Count 10.42 K/uL (4.8-10.8)
[2021-09-23 13:10] LABS: Basophils # (auto) 0.03 K/uL (0-0.2); Basophils % (auto) 0.3 %; Eosinophils # (auto) 0.46 K/uL (0-0.5); Eosinophils % (auto) 4.4 %; Immature Granulocytes # (auto) 0.08 K/uL (0.00-0.02); Immature Granulocytes % (auto) 0.8 %; Lymphocytes # (auto) 1.69 K/uL (1.2-3.4); Lymphocytes % (auto) 16.2 %; Monocytes # (auto) 0.79 K/uL (0.11-0.59); Monocytes % (auto) 7.6 %; Neutrophils # (auto) 7.37 K/uL (1.4-6.5); Neutrophils % (auto) 70.7 %
[2021-09-23 13:17] LABS: Partial Thromboplastin Ratio 3.9
[2021-09-23 13:26] LABS: Partial Thromboplastin Time 103.4 Seconds (21.0-31.0)
[2021-09-23] MEDS ORDERED: LACTATED RINGER'S 1,000 ML IV SCH (13:35)
[2021-09-23] MEDS ORDERED: ONDANSETRON 4 MG OD TAB PO PRN (13:35)
[2021-09-23] MEDS ORDERED: Heparin IV Adult Wt-Based Standard *NO* Bolus Protocol IV ONE (13:35)
[2021-09-23] MEDS: MoRPHine SULFATE 4 MG/ML 1 ML CARP\\VIAL IV PRN ×2 (14:00→21:18)
[2021-09-23 14:24] LABS: Partial Thromboplastin Ratio 1.5; Partial Thromboplastin Time 38.4 Seconds (21.0-31.0)
[2021-09-23] MEDS: HEPARIN SODIUM/DEXTROSE 25,000 UNITS/500 ML BAG IV SCH (15:07)
--- NOTE | 2021-09-23 19:17 | Critical Care Progress Note ---
Date of Service September 23, 2021 Assessment & Plan (1) Peripheral arterial disease: Plan: Impression: 56-year-old female with complex history including sleep apnea (noncompliant with CPAP), hypertension, renal artery stenosis, obesity, and glucose intolerance status post elective aortic bifemoral bypass 09/18/2021 followed by emergent thrombectomy of the RIGHT lower extremity today (09/23/2021). Recommendations: 1. Peripheral vascular disease: Status post aortobifem/RLE thrombectomy: Management per surgery. Continue neurovascular examination of the lower extremities. Analgesia per vascular surgery. Continue heparin gtt. 2. Hypertension: Now on PO antihypertensives. BP/HR appropriate. 3. Hyperglycemia: Glycemic control per protocol. 4. Electrolyte abnormalities: ICU electrolyte replacement protocol 5. Moderate sleep disordered breathing: The patient apparently has not been compliant with CPAP in the past. Continue supplemental oxygen at night. If were unable to achieve adequate saturations, CPAP at 6 cm of water may need to be initiated. 6. History of COPD: Not bronchospastic currently. No indication for additional inhalers antibiotics or steroids at the current time. 7. PT and OT per vascular surgery. 9. Mild anemia: follow clinically. No sign of active bleeding currently. I have personally spent 32 minutes of critical care time in the direct management of this patient. This is a life/limb threatening event. This includes time spent evaluating patient, direct bedside care, chart review, placing orders, interpretation of diagnostic studies, discussion with consultants, patient, and family members, as well as other required patient management activities. This time is exclusive of all separately billable procedures, and teaching time and separate from and in addition to any other critical care service time. (2) Obstructive sleep apnea: (3) HTN (hypertension): Admission and Anticipated Discharge Date Admission Date: September 18, 2021 Subjective Patient is a 56-year-old female who is status post aortic bifemoral bypass on . Patient initially was monitored closely in the ICU, and was eventually able to be downgraded to floor status. Unfortunately, after physical therapy today, the patient had an abrupt onset of sudden, intense pain to the RIGHT lower extremity. Patient had acute occlusion of graft on the RIGHT lower extremity. Patient underwent emergent thrombectomy of the RIGHT lower extremity. She is to be monitored in the ICU for ongoing care. Upon evaluation in the ICU, the patient is awake, alert, and oriented. She reports feeling sleepy after taking a pain pill. She reports that she has little to no discomfort at this time and adds that this is greatly improved from initial symptoms pain earlier this afternoon. She reports being hungry, but otherwise offers no complaints. Physical Exam Physical Exam: VITAL SIGNS - Vital signs and nursing notes were reviewed. GENERAL - 56-year-old female appearing her stated age who is in no acute distress. Communicates well with provider and answers questions appropriately. LUNGS - Chest wall symmetric without accessory muscle use, intercostals retractions, or central cyanosis. Normal vesicular breath sounds CTA B/L. No w heezes, rales, or rhonchi appreciated. CARDIAC - RRR with S1/S2. No murmur, rubs, or gallops appreciated. ABDOMEN - Abdominal contour obese without pulsations or visible masses. BS normoactive all four quadrants. No tenderness, palpable masses, hepatosplenomegaly, or ascites noted. EXTREMITIES - No clubbing or edema. No mottling. Dopplerable DP/PT pulses noted bilaterally. Extremities warm. Good ROM noted. Compartments soft to palpation. PSYCH - A&Ox3 and cooperates fully with examiner. Pt is very pleasant and interacts well with examiner. Results & Data Results & Data ([facility]) Vital Signs (Past 12 Hours) Vital Signs Temp Pulse Pulse Pulse Resp BP BP 09/23/21 19:00 97 H 13 144/90 H 09/23/21 18:00 92 H 17 164/95 H 09/23/21 17:00 96 H 12 146/85 H 09/23/21 16:25 37.3 C 09/23/21 16:00 92 H 17 126/92 09/23/21 15:04 90 17 126/88 09/23/21 14:00 90 15 134/90 09/23/21 13:24 86 16 132/98 09/23/21 13:22 93 H 13 147/115 H 09/23/21 13:20 09/23/21 13:05 36.4 C L 95 H 19 137/87 09/23/21 12:50 89 15 132/99 09/23/21 12:40 89 20 148/95 H 09/23/21 12:30 95 H 20 131/89 09/23/21 12:21 36.5 C 98 H 20 137/87 09/23/21 11:14 09/23/21 07:29 37 C 90 18 145/86 H Pulse Ox Pulse Ox 09/23/21 19:00 92 09/23/21 18:00 93 09/23/21 17:00 94 09/23/21 16:25 09/23/21 16:00 91 94 09/23/21 15:04 94 09/23/21 14:00 99 09/23/21 13:24 98 09/23/21 13:22 99 09/23/21 13:20 92 09/23/21 13:05 100 09/23/21 12:50 100 09/23/21 12:40 100 09/23/21 12:30 98 09/23/21 12:21 100 09/23/21 11:14 94 09/23/21 07:29 97 Coding Level of Care Code Critical Care 1st 30-74 mins Diagnoses Peripheral arterial disease I73.9 Obstructive sleep apnea G47.33 HTN (hypertension) I10 Time Spent (min) 32
[2021-09-23] MEDS: AMITRIPTYLINE HCL 25 MG TAB PO SCH (20:06)
[2021-09-23] MEDS: ceFAZolin 2000MG 2,000 MG/15 ML SYR IV SCH (20:06)
[2021-09-23] MEDS: CHOLECALCIFEROL 1,000 UNITS 25 MCG TAB PO SCH (20:07)
[2021-09-23] MEDS: ROSUVASTATIN CALCIUM 20 MG TAB PO SCH (20:08)
[2021-09-23 20:38] LABS: Partial Thromboplastin Ratio 1.3; Partial Thromboplastin Time 33.5 Seconds (21.0-31.0)
[2021-09-24] MEDS: oxyCODONE/ACETAMINOPHEN 5mg/325mg TAB PO PRN ×4 (01:59→21:32)
[2021-09-24 03:18] LABS: Basophils # (auto) 0.03 K/uL (0-0.2); Basophils % (auto) 0.3 %; Eosinophils # (auto) 0.61 K/uL (0-0.5); Eosinophils % (auto) 5.4 %; Hematocrit (blood only) 26.8 % (37-47); Immature Granulocytes # (auto) 0.11 K/uL (0.00-0.02); Lymphocytes # (auto) 1.91 K/uL (1.2-3.4); Lymphocytes % (auto) 16.9 %; Mean Corpuscular Hemoglobin 31.3 pg (25-34); Mean Corpuscular Hgb Conc 33.6 g/dL (32-36); Mean Corpuscular Volume 93.1 fL (80-100); Mean Platelet Volume 9.3 fL (7.4-10.4); Monocytes # (auto) 1.06 K/uL (0.11-0.59); Monocytes % (auto) 9.4 %; Neutrophils # (auto) 7.55 K/uL (1.4-6.5); Nucleated RBC # (auto) 0.02 K/uL (0-0); Nucleated RBC % (auto) 0.1 %; Platelet Count 343 K/uL (130-400); RDW Coefficient of Variation 13.4 % (11.5-14.5); RDW Standard Deviation 45.3 fL (36.4-46.3); Red Blood Count 2.88 M/uL (4.2-5.4); White Blood Count 11.27 K/uL (4.8-10.8)
[2021-09-24 03:37] LABS: Partial Thromboplastin Ratio 1.5; Partial Thromboplastin Time 38.5 Seconds (21.0-31.0)
[2021-09-24 03:43] LABS: BUN Creatinine Ratio 11.2 (10-20); Calcium 8.3 mg/dl (8.5-10.1); Creatinine Clr Calc Pharmacy 82.9 ml/min; Est GFR (African American) 84.6 ml/min; Magnesium 1.6 mg/dl (1.7-2.4); Potassium 3.1 mmol/L (3.5-5.1)
[2021-09-24] MEDS: ceFAZolin 2000MG 2,000 MG/15 ML SYR IV SCH (03:45)
[2021-09-24] MEDS ORDERED: MAGNESIUM SULFATE / D5W 1 GM/100 ML BAG IV ONE (05:49)
[2021-09-24] MEDS ORDERED: POTASSIUM CHLORIDE CRTAB 20 MEQ TABCR PO STA (05:49)
[2021-09-24] MEDS: LOSARTAN POTASSIUM 50 MG TAB PO SCH (07:43)
[2021-09-24] MEDS: CLOPIDOGREL BISULFATE 75 MG TAB PO SCH (07:43)
[2021-09-24] MEDS: METOPROLOL SUCC 50MG EXT REL TAB PO SCH ×2 (07:44→21:37)
[2021-09-24] MEDS: levETIRAcetam 500 MG TAB PO SCH ×2 (07:44→21:37)
[2021-09-24] MEDS: VENLAFAXINE HCL 50 MG TAB PO SCH ×3 (07:44→21:39)
[2021-09-24] MEDS: cloNIDine HCL 0.1 MG TAB PO SCH (07:44)
--- NOTE | 2021-09-24 08:41 | Surgery Progress Note ---
Date of Service September 24, 2021 Assessment & Plan (1) Ischemia of right lower extremity: Plan: Pt doing well s/p RLE thrombectomy. Pulses easily dopplerable and foot warm and pink with brisk cap refill. (2) S/P aortobifemoral bypass surgery: Plan: Pt doing well overall. Discussed with Dr Maynard. Transfer to med/surg and advance diet as tolerated today. Remove novak. Continue Heparin, will transition to eliquis probably tomorrow. Admission and Anticipated Discharge Date Admission Date: September 18, 2021 Subjective 56 yo f POD #7 after aortobifemoral bypass, and now POD #1 after RLE open thrombectomy, seen in f/u today. Pt states feeling ok, but is hungry. Admits some pain in R groin and other incisions, but states is tolerable wiht medications. No nausea or vomiting or bloating. Passing flatus. No other new complaints. Review of Systems Review of Systems: All systems reviewed & are unremarkable except as noted in HPI & below Physical Exam Constitutional: WD/WN, vitals as above Respiratory: normal respiratory effort Auscultation: lungs clear to auscultation bilaterally Cardiovascular: Rate/Rhythm: regular rate and regular rhythm Vessels: posterior tibial pulses present (easily dopplerable), dorsalis pedis pulses present (easily dopplperable) and radial pulses present; + abnormal peripheral pulses Extremities: normal capillary refill Gastrointestinal (Abdomen): Inspection/Auscultation: abdomen not distended Percussion/Palpation: + abdomen tender (along the incision) and abdomen soft; no guarding Musculoskeletal: no cyanosis or clubbing, extremities motor strength 5/5 Skin: + incision (dressing intact to R groin. Other incision C/D/I) Neurologic: CN's II-XI intact bilaterally and moves all extremities Psychiatric: Orientation: alert and oriented x 3 Results & Data ([facility]) Vital Signs (Past 12 Hours) Vital Signs Pulse Resp BP Pulse Ox Pulse Ox 09/24/21 05:20 92 H 15 92 09/24/21 05:10 92 H 20 90 09/24/21 05:00 93 H 15 113/73 93 09/24/21 04:50 88 14 92 09/24/21 04:40 96 H 20 91 09/24/21 04:30 92 H 17 94 09/24/21 04:20 90 24 93 09/24/21 04:10 88 15 94 09/24/21 04:00 92 H 13 125/79 92 09/24/21 03:50 89 14 93 09/24/21 03:40 91 H 15 92 09/24/21 03:30 93 H 16 94 09/24/21 03:20 91 H 13 92 09/24/21 03:10 96 H 15 92 09/24/21 03:01 99 H 17 124/74 93 09/24/21 03:00 95 H 14 94 09/24/21 02:50 99 H 18 89 L 09/24/21 02:40 98 H 13 89 L 09/24/21 02:30 101 H 15 94 09/24/21 02:20 102 H 14 93 09/24/21 02:10 105 H 20 92 09/24/21 02:08 102 H 17 146/90 H 92 09/24/21 02:00 105 H 15 183/154 H 93 09/24/21 01:50 103 H 18 94 09/24/21 01:40 103 H 20 91 09/24/21 01:30 105 H 17 91 09/24/21 01:20 104 H 17 92 09/24/21 01:10 101 H 16 95 09/24/21 01:00 105 H 16 148/97 H 91 09/24/21 00:50 102 H 16 90 09/24/21 00:40 103 H 11 L 95 09/24/21 00:30 103 H 17 91 09/24/21 00:20 105 H 18 91 09/24/21 00:10 103 H 15 93 09/24/21 00:00 103 H 17 140/79 91 09/23/21 23:59 91 09/23/21 23:50 100 H 13 93 09/23/21 23:41 104 H 02 23:40 102 H 18 91 09/23/21 23:30 101 H 18 90 02 23:20 105 H 18 90 09/23/21 23:10 101 H 16 92 09/23/21 23:00 100 H 13 143/75 H 94 02 22:00 103 H 17 116/89 90 09/23/21 21:00 95 H 17 139/84 94
[2021-09-24 10:02] LABS: Partial Thromboplastin Ratio 1.5; Partial Thromboplastin Time 39.9 Seconds (21.0-31.0)
[2021-09-24] MEDS: DOCUSATE SODIUM 100 MG CAP PO SCH ×2 (10:14→21:38)
[2021-09-24] MEDS: HEPARIN SODIUM/DEXTROSE 25,000 UNITS/500 ML BAG IV SCH ×2 (10:26→12:43)
[2021-09-24 16:22] LABS: Partial Thromboplastin Ratio 1.6; Partial Thromboplastin Time 41.3 Seconds (21.0-31.0)
[2021-09-24] MEDS: AMITRIPTYLINE HCL 25 MG TAB PO SCH (21:36)
[2021-09-24] MEDS: CHOLECALCIFEROL 1,000 UNITS 25 MCG TAB PO SCH (21:38)
[2021-09-24] MEDS: ROSUVASTATIN CALCIUM 20 MG TAB PO SCH (21:39)
[2021-09-24 23:31] LABS: Partial Thromboplastin Ratio 1.9
[2021-09-24 23:38] LABS: Partial Thromboplastin Time 50.4 Seconds (21.0-31.0)
[2021-09-25] MEDS: HEPARIN SODIUM/DEXTROSE 25,000 UNITS/500 ML BAG IV SCH (03:14)
[2021-09-25 07:07] LABS: Partial Thromboplastin Ratio 1.9
[2021-09-25 07:09] LABS: Partial Thromboplastin Time 48.9 Seconds (21.0-31.0)
[2021-09-25] MEDS: LOSARTAN POTASSIUM 50 MG TAB PO SCH (08:36)
[2021-09-25] MEDS: levETIRAcetam 500 MG TAB PO SCH ×2 (08:37→20:06)
[2021-09-25] MEDS: METOPROLOL SUCC 50MG EXT REL TAB PO SCH ×2 (08:37→20:10)
[2021-09-25] MEDS: CLOPIDOGREL BISULFATE 75 MG TAB PO SCH (08:37)
[2021-09-25] MEDS: VENLAFAXINE HCL 50 MG TAB PO SCH ×3 (08:37→20:07)
[2021-09-25] MEDS: DOCUSATE SODIUM 100 MG CAP PO SCH ×2 (08:37→20:11)
[2021-09-25] MEDS: cloNIDine HCL 0.1 MG TAB PO SCH (09:15)
[2021-09-25] MEDS: oxyCODONE/ACETAMINOPHEN 5mg/325mg TAB PO PRN ×2 (09:17→23:16)
--- NOTE | 2021-09-25 10:09 | Surgery Progress Note ---
Date of Service September 25, 2021 Assessment & Plan (1) Ischemia of right lower extremity: Plan: Pt doing well s/p RLE thrombectomy. Pulses easily dopplerable and foot warm and pink with brisk cap refill. (2) S/P aortobifemoral bypass surgery: Plan: Pt doing well overall. Doing well with advanced diet. Will add miralax. Change heparin to eliquis. Encourage oral pain medication and increase activity in preparation for d/c. Pt wishes to go home with home nursing/therapy. Admission and Anticipated Discharge Date Admission Date: September 18, 2021 Subjective 56 yo f POD #8 after aortobifemoral bypass, and now POD #2 after RLE open thrombectomy, seen in f/u today. Pt states feeling ok. Doing ok eating. Admits some pain in R groin and other incisions, but states is tolerable with medications. No nausea or vomiting or bloating. Passing flatus, but no BM since surgery. No other new complaints. States has been ambulating in hallway for therapy. Review of Systems Review of Systems: All systems reviewed & are unremarkable except as noted in HPI & below Physical Exam Constitutional: WD/WN, vitals as above Respiratory: normal respiratory effort Auscultation: lungs clear to auscultation bilaterally Cardiovascular: Rate/Rhythm: regular rate and regular rhythm Vessels: posterior tibial pulses present (easily dopplerable), dorsalis pedis pulses present (easily dopplperable) and radial pulses present; + abnormal peripheral pulses Extremities: normal capillary refill Gastrointestinal (Abdomen): Inspection/Auscultation: abdomen not distended Percussion/Palpation: + abdomen tender (along the incision) and abdomen soft; no guarding Normal BS x 4 quad Musculoskeletal: no cyanosis or clubbing, extremities motor strength 5/5 Skin: + incision (dressing intact to R groin. Other incision C/D/I) Neurologic: CN's II-XI intact bilaterally and moves all extremities Psychiatric: Orientation: alert and oriented x 3 Results & Data ([facility]) Vital Signs (Past 12 Hours) Vital Signs Temp Pulse Resp BP Pulse Ox 09/25/21 07:07 36.4 C L 101 H 18 163/100 H 93 09/24/21 23:04 36.7 C 85 16 104/73 95
[2021-09-25] MEDS: APIXABAN 2.5 MG TAB PO SCH ×2 (11:28→20:05)
[2021-09-25] MEDS: POLYETHYLENE (MIRALAX) 17 GM PACK PO SCH (11:28)
[2021-09-25] MEDS: MoRPHine SULFATE 4 MG/ML 1 ML CARP\\VIAL IV PRN (12:57)
[2021-09-25] MEDS: ROSUVASTATIN CALCIUM 20 MG TAB PO SCH (20:05)
[2021-09-25] MEDS: AMITRIPTYLINE HCL 25 MG TAB PO SCH (20:07)
[2021-09-25] MEDS: CHOLECALCIFEROL 1,000 UNITS 25 MCG TAB PO SCH (20:08)
[2021-09-26] MEDS: METOPROLOL SUCC 50MG EXT REL TAB PO SCH ×2 (08:25→21:48)
[2021-09-26] MEDS: cloNIDine HCL 0.1 MG TAB PO SCH (08:25)
[2021-09-26] MEDS: LOSARTAN POTASSIUM 50 MG TAB PO SCH (08:25)
[2021-09-26] MEDS: CLOPIDOGREL BISULFATE 75 MG TAB PO SCH (08:25)
[2021-09-26] MEDS: levETIRAcetam 500 MG TAB PO SCH ×2 (08:25→21:48)
[2021-09-26] MEDS: APIXABAN 2.5 MG TAB PO SCH ×2 (08:25→21:46)
[2021-09-26] MEDS: VENLAFAXINE HCL 50 MG TAB PO SCH ×3 (08:26→21:50)
[2021-09-26 08:27] LABS: Partial Thromboplastin Time 25.7 Seconds (21.0-31.0)
[2021-09-26] MEDS: DOCUSATE SODIUM 100 MG CAP PO SCH ×2 (08:37→21:45)
[2021-09-26] MEDS: POLYETHYLENE (MIRALAX) 17 GM PACK PO SCH (09:00)
[2021-09-26] MEDS: oxyCODONE/ACETAMINOPHEN 5mg/325mg TAB PO PRN ×2 (09:29→18:27)
--- NOTE | 2021-09-26 10:03 | Surgery Progress Note ---
Date of Service September 26, 2021 Assessment & Plan (1) Ischemia of right lower extremity: Plan: Pt doing well s/p RLE thrombectomy. Pulses easily dopplerable and foot warm and pink with brisk cap refill. Prevena vac removed from R groin, incision C/D/I with heather, minimal bloody/serous drainage. (2) S/P aortobifemoral bypass surgery: Plan: Pt doing well overall. Doing well with advanced diet. Encourage oral pain medication and increase activity in preparation for d/c. Pt wishes to go home with home nursing/therapy. Probable D/C home tomorrow. Admission and Anticipated Discharge Date Admission Date: September 18, 2021 Subjective 56 yo f POD #9 after aortobifemoral bypass, and now POD #3 after RLE open thrombectomy, seen in f/u today. Pt states feeling ok. Doing ok eating. Admits some pain in her back/flanks and incisions, but states is tolerable with medications. No nausea or vomiting or bloating. Passing flatus, but no BM since surgery. No other new complaints. States has been ambulating in [facility] for therapy. Review of Systems Review of Systems: All systems reviewed & are unremarkable except as noted in HPI & below Physical Exam Constitutional: WD/WN, vitals as above Respiratory: normal respiratory effort Auscultation: lungs clear to auscultation bilaterally Cardiovascular: Rate/Rhythm: regular rate and regular rhythm Vessels: posterior tibial pulses present (easily dopplerable), dorsalis pedis pulses present (easily dopplperable) and radial pulses present; + abnormal peripheral pulses Extremities: normal capillary refill Gastrointestinal (Abdomen): Inspection/Auscultation: abdomen not distended Percussion/Palpation: + abdomen tender (along the incision) and abdomen soft; no guarding Musculoskeletal: no cyanosis or clubbing, extremities motor strength 5/5 Skin: + incision (dressing intact to R groin. Other incision C/D/I) Neurologic: CN's II-XI intact bilaterally and moves all extremities Psychiatric: Orientation: alert and oriented x 3 Results & Data ([facility]) Vital Signs (Past 12 Hours) Vital Signs Temp Pulse Resp BP Pulse Ox Pulse Ox 09/26/21 07:53 36.8 C 74 16 124/85 91 09/25/21 23:59 92 02/22/22 23:02 37.4 C 103 H 16 117/79 91
[2021-09-26] MEDS: CHOLECALCIFEROL 1,000 UNITS 25 MCG TAB PO SCH (21:47)
[2021-09-26] MEDS: AMITRIPTYLINE HCL 25 MG TAB PO SCH (21:47)
[2021-09-26] MEDS: ROSUVASTATIN CALCIUM 20 MG TAB PO SCH (21:49)
[2021-09-27 07:54] VITALS: TEMP 99.3; O2SAT 93
[2021-09-27] MEDS: levETIRAcetam 500 MG TAB PO SCH (08:08)
[2021-09-27] MEDS: VENLAFAXINE HCL 50 MG TAB PO SCH ×2 (08:08→13:24)
[2021-09-27] MEDS: APIXABAN 2.5 MG TAB PO SCH (08:09)
[2021-09-27] MEDS: METOPROLOL SUCC 50MG EXT REL TAB PO SCH (08:09)
[2021-09-27] MEDS: cloNIDine HCL 0.1 MG TAB PO SCH (08:09)
[2021-09-27] MEDS: POLYETHYLENE (MIRALAX) 17 GM PACK PO SCH (08:11)
[2021-09-27] MEDS: DOCUSATE SODIUM 100 MG CAP PO SCH (08:13)
[2021-09-27] MEDS: oxyCODONE/ACETAMINOPHEN 5mg/325mg TAB PO PRN (08:21)
[2021-09-27] MEDS: LOSARTAN POTASSIUM 50 MG TAB PO SCH (10:01)
[2021-09-27] MEDS: CLOPIDOGREL BISULFATE 75 MG TAB PO SCH (10:01)
[2021-09-27 10:46] VITALS: BP 147/90
--- NOTE | 2021-09-27 13:49 | Surgery Progress Note ---
Date of Service September 27, 2021 Assessment & Plan (1) Ischemia of right lower extremity: Plan: Pt doing well s/p RLE thrombectomy. Pulses easily dopplerable and foot warm and pink with brisk cap refill. (2) S/P aortobifemoral bypass surgery: Plan: Pt doing well overall. Will D/C today. Admission and Anticipated Discharge Date Admission Date: September 18, 2021 Subjective 56 yo f POD #10 after aortobifemoral bypass, and now POD #4 after RLE open thrombectomy, seen in f/u today. She is ambulating without difficulty. No leg pain. No abdominal pain. No n or v. Physical Exam Constitutional: WD/WN, vitals as above + acute distress (pain in right lower extremity) Respiratory: normal respiratory effort and + respiratory distress Aus cultation: lungs clear to auscultation bilaterally Cardiovascular: RRR, no murmur, no edema Rate/Rhythm: regular rate and regular rhythm Vessels: femoral pulses present (doppler signals in both groins), posterior tibial pulses present and dorsalis pedis pulses present Extremities: normal capillary refill (markedly decreased on right) Gastrointestinal (Abdomen): Inspection/Auscultation: abdomen normal to inspection; abdomen not distended Percussion/Palpation: abdomen soft; no guarding Musculoskeletal: no cyanosis or clubbing, extremities motor strength 5/5 Skin: + incision (clean and dry.) Neurologic: CN's II-XI intact bilaterally and moves all extremities Motor/Sensory: + abnormal movement (decrease motion of right foot) and + sensory deficit (right foot with decreased sensation) Psychiatric: Orientation: alert and oriented x 3 Results & Data ([facility]) Vital Signs (Past 12 Hours) Vital Signs Temp Pulse Resp BP BP Pulse Ox Pulse Ox 09/27/21 10:45 147/90 H 09/27/21 08:05 93 09/27/21 07:53 37.4 C 91 H 18 157/102 H 173/112 H 93
[2021-09-27 14:19] VITALS: PULSE 94
--- NOTE | 2021-09-28 11:21 | Discharge Summary ---
Date of Service September 28, 2021 Admission HPI Per Admitting Provider Date of Service September 18, 2021 Assessment & Plan (1) Aortoiliac occlusive disease: Plan: Patient is admitted for an aortobifemoral bypass. I have discussed the risks options and benefits of the procedure with the patient. The patient understands the risks options and benefits and agrees to the procedure. Admission and Anticipated Discharge Date Admission Date: September 14, 2021 History of Present Illness Chief Complaint: Bilateral iliac artery occlusions Primary Care Provider: NO PCP Ms. Velasquez is a 55-year-old female who presents for followup, having undergone an MRA of the abdomen to better evaluate left renal artery stenosis. 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 The patient reports to clinic today with no complaints related to her renal artery stenosis. She denies any issues with urination and otherwise states that her hypertension has been managed relatively well recently. Upon review of the MRA in clinic, there was noted to be a small area of the left renal artery, which is perhaps mildly stenotic; however, this does not appear to be generating any symptoms. In addition to the renal artery stenosis, she also notes significant restrictions on her ability to ambulate. She states that she has been experiencing claudication symptoms that limit her to walking less than 1 block at a time. She states that she frequently has to wake up from sleep and sit at the edge of the bed in order to help with the cramping and pain that she develops overnight. 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 She states that when she used to be able to work, she used to have to take frequent breaks given the cramping and pain that she was ex periencing in her bilateral lower extremities. She was found to have bilateral iliac artery occlusions on CTA. She denies any fevers, chills, nausea, vomiting, shortness of breath or chest pain at this visit. Allergies Allergy/AdvReac Type Severity Reaction Status Date / Time Iodinated Contrast Media Allergy Intermediate Rash Verified 09/14/21 08:26 Home Medications Medication Instructions Recorded Confirmed Type acetaminophen 650 mg 650 mg PO Q4 PRN 09/14/21 09/14/21 History tablet,extended release (Arthritis Pain Relief (acetaminophen) ER) clindamycin HCl 300 mg capsule 300 mg PO Q6H 09/14/21 09/14/21 History dorzolamide 2 % eye drops 1 drp OPB BID 09/14/21 09/14/21 Histo ry lisinopril 5 mg tablet 5 mg PO QAM 09/14/21 09/14/21 History ondansetron HCl 4 mg tablet 4 mg PO Q6H PRN 09/14/21 09/14/21 His tory timolol maleate 0.25 % eye drops 1 drp OPB QAM 09/14/21 2 History Past Med/Surg History Social History Smoking Status: Never smoker Second Hand Exposure: No; Do You Dip or Chew Tobacco: No; Tobacco Cessation Education Requested by Patient: No Hx Alcohol Use: No Hx Substance Use: No Preferred Language: Armenian Communication Ability: Effective Cash Management Clerk Required: Yes Beliefs That Will Affect Care: None Current Living Situation: Family Current Living Situation Comment: lives with son Feels Safe at Home: No Is there a partner from a previous relationship who is making you feel unsafe now?: No Any Concerns about Your Family Situation: No Would You Like to Speak to Someone About Your Situation: No Assistive Devices: Walker Review of Systems All systems reviewed & are unremarkable except as noted in HPI & below Physical Exam Physical Exam: The patient is in no acute distress. In the office today, her heart rate is 67 beats per minute, she is saturating 95% on room air. Her blood pressure is 116 systolic over 78 diastolic. She moves about the room without assistance. Her neck is supple. Her trachea is midline. No carotid bruits can be auscultated. Her heart is in regular rate and rhythm with no extraneous heart sounds, her lungs are clear to auscultation bilaterally. Her abdomen is soft, nontender, n ondistended. On cardiovascular exam, she has bilateral upper extremity pulses palpable. On lower extremity exam, she is noted to have a nonpalpable dorsalis pedis pulses, posterior tibial pulses bilaterally. In addition, her femoral pulses can also not be palpated. She does have Doppler signals in the left peroneal region as well as the left posterior tibial region, and on the right lower extremity, she has Doppler signals present in the dorsalis pedis region as well as the posterior tibial region. Results & Data ([facility]) Vital Signs (Past 12 Hours) Vital Signs Temp Pulse Pulse Resp BP Pulse Ox 09/18/21 07:00 37.0 C 96 H 16 153/73 H 95 09/18/21 02:08 37.5 C 99 H 18 170/82 H 95 09/17/21 23:52 86 09/17/21 21:57 36.8 C 90 18 170/73 H 97 Code Status & VTE Plan VTE Prophylaxis Plan VTE Prophylaxis will be ordered: Yes Signed By: <Electronically signed by Alex Maynard MD> 09/18/21 0740 Created:09/18/21 0736 The status of this report isSigned. Draft = Not yet reviewed or approved by Medical Physician. Signed = Reviewed and approved by Medical Physician. Principal Diagnosis The patient is in no acute distress. In the office today, her heart rate is 67 beats per minute, she is saturating 95% on room air. Her blood pressure is 116 systolic over 78 diastolic. She moves about the room without assistance. Her neck is supple. Her trachea is midline. No carotid bruits can be auscultated. Her heart is in regular rate and rhythm with no extraneous heart sounds, her lungs are clear to auscultation bilaterally. Her abdomen is soft, nontender, nondistended. On cardiovascular exam, she has bilateral upper extremity pulses palpable. On lower extremity exam, she is noted to have a nonpalpable dorsalis pedis pulses, posterior tibial pulses bilaterally. In addition, her femoral pulses can also not be palpated. She does have Doppler signals in the left peroneal region as well as the left posterior tibial region, and on the right lower extremity, she has Doppler signals present in the dorsalis pedis region as well as the posterior tibial region. Discharge Exam Constitutional WD/WN, vitals as above + acute distress (pain in right lower extremity) Respiratory normal respiratory effort; no respiratory distress Auscultation: lungs clear to auscultation bilaterally Cardiovascular RRR, no murmur, no edema Rate/Rhythm: regular rate and regular rhythm Vessels: femoral pulses present (doppler signals in both groins), posterior tibial pulses present, dorsalis pedis pulses present and radial pulses present; + abnormal peripheral pulses Extremities: normal capillary refill Gastrointestinal (Abdomen) Inspection/Auscultation: abdomen normal to inspection; abdomen not distended Percussion/Palpation: abdomen soft; no guarding Musculoskeletal no cyanosis or clubbing, extremities motor strength 5/5 Skin + incision (clean and dry.) Neurologic CN's II-XI intact bilaterally and moves all extremities Psychiatric Orientation: alert and oriented x 3 Discharge Data Allergies Allergy/AdvReac Type Severity Reaction Status Date / Time napoles Allergy Intermediate Hives Verified 09/19/21 06:04 (green/hartman beans) doxycycline Allergy Intermediate Hives, Verified 09/19/21 06:04 vomiting Iodinated Contrast Media Allergy Intermediate Large Verified 09/19/21 06:04 hives, vomiting, "feeling hot" iodine Allergy Intermediate Hives, Verified 09/19/21 06:04 vomiting latex Allergy Intermediate Rash Verified 09/19/21 06:04 loperamide Allergy Intermediate Hives, Verified 09/19/21 06:04 vomiting meperidine Allergy Intermediate Hives, Verified 09/19/21 06:04 vomiting strawberry Allergy Intermediate Hives Verified 09/19/21 06:04 tomato Allergy Intermediate Hives Verified 09/19/21 06:04 prochlorperazine Allergy Mild N/V, Verified 09/19/21 06:04 itchiness Consultations 09/18/21 13:06 Consult Fabrication Technician Routine 09/23/21 13:35 Consult Fabrication Technician Routine Procedures Performed Operation Date: 09/18/21 08:00 Actual Procedures p Aorto-Bifemoral Bypass(Bilateral) - Alex Maynard MD Operation Date: 09/23/21 10:00 Actual Procedures p Thrombectomy Right Lower Extremity(Right) - Alex Maynard MD Ordered Studies 09/18/21 20:23 CT abd pelvis wo con Stat Hospital Course (1) Ischemia of right lower extremity: Pt doing well POD # 4 after emergent RLE thrombectomy. Pulses easily dopplerable and foot warm and pink with brisk cap refill. (2) S/P aortobifemoral bypass surgery: Pt doing well POD #9. Will D/C home today. Total Time Total Time Spent Total Time Spent (In Minutes): 0 Discharge Plan Discharge Items Patient Disposition: Home - Home Health Services Reason For Visit: Bilateral Lower Extremity Occlusion Discharge Diagnosis: Bilateral iliac occlusions. Post aortobifemoral bypass Activity: Per Instructions section Lifting: No more than 25 pounds Bathing: May shower/bathe in 3 days Weightbearing: Full weightbearing Non-emergency contact: Surgeon Call non-emergency contact if: your temperature is above 101.5, your wound has increased redness, your wound has increased drainage and your wound pain has increased Follow-up/Referrals: Teena Killian DO [Primary Care Provider] - 10/11/21 10:20 am Alex Maynard MD [Physician] - 10/08/21 12:45 pm Diet: Heart Healthy Addtl Attending Provider Instructions: ACTIVITY RECOMMENDATIONS: Keep feet elevated when in a chair. Ambulate as much as possible. May shower in three days SPECIAL CARE INSTRUCTIONS: Call your doctor if: * Temperature above 101 degrees * Pain not relieved by pain medicine ordered * There is increased drainage or redness from any incision * You have any unanswered questions or concerns. Call [phone] to schedule a follow up appointment if one not already scheduled. Pending Studies at Discharge: No Stand-Alone Forms: My [facility] D2C Games, Smoking Cessation Medications and DC Order Prescriptions: New apixaban 2.5 mg tablet 2.5 mg PO Q12H Qty: 60 RF: 6 oxycodone-acetaminophen [Percocet] 5-325 mg tablet 1 tab PO Q4H PRN (Reason: pain) Qty: 30 RF: 0 potassium chloride 20 mEq packet 20 meq PO DAILY Qty: 30 RF: 0 Continued cholecalciferol (vitamin D3) 50 mcg (2,000 unit) tablet 2,000 unit PO PM Qty: 90 RF: 1 metoprolol succinate [Toprol XL] 100 mg tablet extended release 24 hr 50 mg PO BID Qty: 180 RF: 1 venlafaxine 150 mg capsule,extended release 24hr 150 mg PO QAM Qty: 90 RF: 1 ondansetron HCl 4 mg tablet 4 mg PO Q8H PRN (Reason: nausea and vomiting) Qty: 30 RF: 0 amitriptyline 25 mg tablet 25 mg PO HS Qty: 90 RF: 1 clonidine HCl 0.1 mg tablet 0.1 mg PO QAM Qty: 90 RF: 1 clopidogrel [Plavix] 75 mg tablet 75 mg PO QAM Qty: 90 RF: 1 levetiracetam [Keppra] 1,000 mg tablet 1,000 mg PO BID Qty: 180 RF: 1 multivitamin Tablet 1 tab PO QAM RF: 0 amlodipine 5 mg tablet 5 mg PO UD RF: 0 Hold Instructions: Home Medication placed on hold at Doctor's office losartan [Cozaar] 100 mg tablet 50 mg PO QAM RF: 0 rosuvastatin [Crestor] 40 mg Tablet 40 mg PO HS RF: 0 Discharge Orders: Discharge Order (Routine); Ordered 09/27/21 Ordered By: Alex Maynard Admission Data Admit Date/Time: 09/18/21 13:06 Attending Provider: Alex Maynard Admit Provider: Alex Maynard Primary Care Provider: Teena Killian Other Providers: Armin Reis ; Philip Deleon ; Christiano Durbin ; Giuseppe Amaya ; Harsha Garcia ; Benji Haynes ; Tammi Joseph ; Devin Loza Other Interventions: Discharge Summary Assessment (RN) Last Done: 09/27/21 14:18
--- NOTE | 2021-10-15 15:05 | Coding Query ---
yes it was CODING QUERY To promote full compliance with coding requirements relating to patient care, provider participation is requested in all cases of integrated logistics support manager uncertainty. Please assist us with the question(s) below: Coding Question(s): Please clarify if the embolism was a post op complication. Physician's Response(s): Thank you Sarah Del Rosario Principal Diagnosis: "that condition established after study, to be chiefly responsible for occasioning the admission of the patient to the hospital for care." Co-Existing Principal Diagnosis: "when two or more diagnoses equally meet the criteria for principal diagnosis as determined by the circumstances of admission, diagnostic work up, and/or therapy provided, and the Alphabetic Index, Tabular List, or another coding guideline does not provide sequencing direction, any one of the diagnoses may be sequenced first." "When the physician has documented what appears to be a current diagnosis in the body of the record, but has not included the diagnosis in the final diagnostic statement, the physician should be asked whether the diagnosis should be added." (Source Coding [facility] 2 QTR90. p3-4) GERARD
== END 2021-09-27 14:42 | disposition home health service (06) | DRG 270 ==
LOC: ASU 05:42 → 1E 13:06 → 3E 09-21 21:35 → 1E 09-23 13:21 → 3N 09-24 20:02

== ENCOUNTER 2022-04-17 15:53 | Observation (INO) ==
[2022-04-17] MEDS ORDERED: SODIUM CHLORIDE 0.9% 1000ML 1,000 ML IV SCH (17:30)
--- NOTE | 2022-04-17 18:17 | XRay Report ---
XR chest 1V portable CLINICAL HISTORY: weakness TECHNIQUE: Single frontal radiograph of the chest was obtained. Comparison: Comparison is made to chest radiographs 09/14/2021 FINDINGS: Anterior cervical fixation hardware is seen. Old right rib fractures are noted. The cardiomediastinal silhouette is normal. The lungs are clear. No evidence of pleural effusion or pneumothorax. IMPRESSION: No acute chest disease. ACT 112: Negative or not required by law. Electronically signed by: Rohit Farias M.D. 04/17/2022 6:15 PM
[2022-04-17 18:18] LABS: Basophils # (auto) 0.08 K/uL (0-0.2); Basophils % (auto) 0.7 %; Eosinophils # (auto) 0.04 K/uL (0-0.50); Eosinophils % (auto) 0.4 %; Hemoglobin 14.1 g/dl (12.0-16.0); Immature Granulocytes # (auto) 0.07 K/uL (0.00-0.02); Immature Granulocytes % (auto) 0.6 %; Lymphocytes # (auto) 1.55 K/uL (1.2-3.4); Mean Corpuscular Hemoglobin 30.3 pg (25.0-34.0); Mean Corpuscular Hgb Conc 32.8 g/dL (32.0-36.0); Mean Corpuscular Volume 92.3 fL (80.0-100.0); Monocytes # (auto) 0.37 K/uL (0.24-0.82); Monocytes % (auto) 3.3 %; Neutrophils # (auto) 8.98 K/uL (1.4-6.5); Platelet Count 328 K/uL (130-400); RDW Coefficient of Variation 13.6 % (11.5-14.5); RDW Standard Deviation 46.4 fL (36.4-46.3); Red Blood Count 4.66 M/uL (3.93-5.22); White Blood Count 11.09 K/ul (4.8-10.8)
[2022-04-17] MEDS ORDERED: FAMOTIDINE 20MG IV PUSH 20 MG/5 ML SYR IV STA (18:27)
[2022-04-17] MEDS ORDERED: diphenhydrAMINE 50 MG/ML VIAL IV STA (18:28)
[2022-04-17] MEDS ORDERED: PROMETHAZINE 25 MG/51 ML BAG IV STA (18:28)
[2022-04-17 18:45] LABS: Troponin I High Sensitivity 13.8 pg/ml (0-14)
[2022-04-17 18:46] LABS: Albumin Globulin Ratio 1.5 (0.9-2); Albumin Level 4.5 gm/dl (3.4-5.0); BUN Creatinine Ratio 13.6 (10-20); Bilirubin,Total 0.3 mg/dl (0.2-1.0); Creatinine Clr Calc Pharmacy 99.6 ml/min; Est GFR (African American) 114.5 ml/min; Est GFR (Non-African American) 98.8 ml/min; Magnesium 1.4 mg/dl (1.7-2.4); Phosphorus 2.8 mg/dl (2.5-4.9); Potassium 3.5 mmol/L (3.5-5.1); Total Protein 7.5 gm/dl (6.0-8.3)
[2022-04-17 19:47] LABS: Bilirubin Direct 0.1 mg/dl (0-0.2)
[2022-04-17] MEDS ORDERED: ONDANSETRON INJ 2 MG/ML 2 ML VIAL IV STA (19:51)
[2022-04-17] MEDS ORDERED: ONDANSETRON 4 MG OD TAB PO STA (20:17)
[2022-04-17] MEDS ORDERED: cloNIDine HCL 0.1 MG TAB PO ONE (20:29)
[2022-04-17] MEDS: MAGNESIUM OXIDE 400 MG TAB PO SCH (20:35)
--- NOTE | 2022-04-17 21:30 | Emergency Department Note ---
Impression & Plan Hypertensive urgency, Hypomagnesemia, Intractable nausea and vomiting ED Provider Note NAME: ONEL MONTOYA AGE: 57 SEX: F ARRIVES VIA: Walk-In INFORMANT: Patient ED PROVIDER(S): Clarence Call MD CHIEF COMPLAINT: hypertension, referred, n/v PLAN: Disposition: Admit MEDICAL DECISION MAKING: The patient is a pleasant 57-year-old woman with a past medical history of bipolar disorder, REBECCA, cyclic vomiting syndrome, upper GI bleed, CAD, emphysema, hyperlipidemia, marijuana dependence who presents to the emergency department referred from the endoscopy suite after having EGD and colonoscopy today but upon completion of the procedure began to experience severe nausea and was noted to be hypertensive in the 200s treated with labetalol, hydralazine, and zofran and referred to emergency department. Patient reports prior to procedure today she was feeling well and denies any fevers, chills, cough, congestion, vomiting or diarrhea. She reports the procedures today were in follow-up for recent history of upper GI bleeding. On arrival, the patient is uncomfortable but no acute distress, afebrile with pressure 180s-200s/90s-100s and vital signs otherwise stable. She appears clinically dry. She has mild epigastric discomfort without discrete tenderness EKG without overt acute ischemia. Chest x-ray negative for acute cardiopulmonary process. No free air beneath the diaphragm. WBC 11, nonspecific in setting of the patient's nausea and vomiting. H/H and platelets within normal limits. Chemistry with bicarbonate of 18 and anion gap of 15 in the setting of her vomiting. Magnesium 1.4 and electrolytes otherwise unremarkable. High-sensitivity troponin 13.8, within normal limits. LFTs are unremarkable. Lipase is normal. TSH within normal limits. COVID-19 RNA, CATHRYN test was negative. Patient was treated with IV fluid hydration, famotidine, Zofran, diphenhydramine and Phenergan with improvement in her nausea. Unfortunately her IV had infiltrated and she did not want repeat attempt. She initially reported she felt improved enough where she had preferred to go home. Given her low magnesium we did agree to ensure she could tolerate oral intake for oral supplementation. She was able to take oral magnesium however still felt unwell and nauseated and ultimately agreed to have IV placed again and proceed with admission for further management. She will be given her home clonidine for blood pressure control and IV magnesium was ordered. Case was discussed with Dr. Drake, [facility] hospitalist, who will evaluate the patient for admission. Triage Nursing notes reviewed and agree them. Prior medical records reviewed Vital Signs: reviewed and remarkable for hypertension. Differential diagnosis: Gastroenteritis, food borne illness, infections, appendicitis, diverticulitis, inflammatory bowel disease, obstruction, GI bleed, biliary pathology, volvulus, as well as other pathologies. ER treatment provided: See below. Diagnostics interpreted by me: ECG: Sinus rhythm with sinus arrhythmia, 70 bpm, no ectopy, no overt ST elevation or depression, QTC 470, QRS 84 Cardiac Monitoring: An order for continuous cardiac monitoring was placed and demonstrated Sinus rhythm with sinus arrhythmia, 70 bpm, no ectopy Laboratory studies: See below Imaging studies: See below Consultation(s): Case was discussed with Dr. Drake, [facility] hospitalist, who will evaluate t he patient for admission. HPI: The patient is a pleasant 57-year-old woman with a past medical history of bipolar disorder, REBECCA, cyclic vomiting syndrome, upper GI bleed, CAD, emphysema, hyperlipidemia, marijuana dependence who presents to the emergency department referred from the endoscopy suite after having EGD and colonoscopy today but upon completion of the procedure began to experience severe nausea and was noted to be hypertensive in the 200s treated with labetalol, hydralazine, and zofran and referred to emergency department. Patient reports prior to procedure today she was feeling well and denies any fevers, chills, cough, congestion, vomiting or diarrhea. She reports the procedures today were in follow-up for recent history of upper GI bleeding. ROS: See above HPI for pertinent positives & negatives. A total of 10 systems reviewed and were otherwise negative. VITALS:See Below PHYSICAL EXAMINATION: GENERAL: Awake, alert, uncomfortable-appearing, in no distress HENT: Normocephalic, atraumatic. Oropharynx with dry mucous membranes and otherwise unremarkable. EYES: Normal conjunctiva. Sclera non-icteric. NECK: Supple. No nuchal rigidity. FROM. No JVD. RESPIRATORY: Clear to auscultation. CARDIAC: Regular rate, normal rhythm. Extremities warm and well perfused. Pulses equal. ABDOMEN: Soft, non-distended. Mild epigastric discomfort without discrete tenderness to palpation. No rebound or guarding. No masses. RECTAL: Deferred. MUSCULOSKELETAL: Chest examination reveals no tenderness. The back is symmetrical on inspection without obvious abnormality. There is no CVA tenderness to palpation. No joint edema. LOWER EXTREMITIES: Calves are equal size bilaterally and non-tender. No edema. No discoloration. NEURO: Normal sensorium. No sensory or motor deficits noted. SKIN: No rash or jaundice noted. ED COURSE: Critical Care: I have personally spent greater than 35 minutes of critical care time in the direct management of this patient. This includes bedside care, interpretation of diagnostic studies, and testing, discussion with consultants, patient, and family members, and other required patient management activities. This 35 minut es is in excess of all separately billable procedures. Clarence Call MD Past Med/Surg History Medical History Anxiety disorder CAD (coronary artery disease) Mild-moderate non-obstructive Carotid stenosis < 50% stenosis B/L per US 12/16/18 Cervical disc disorder FULL ROM Cyclic vomiting syndrome no GI pathology on EGD, US, CT of abd/pelvis, celiac testing and GES per 04/2020 GI consult: biliary w/u and upper GI study recommended (upper GI study neg per d/c summary), cannabis cessation, continue Protonix and prn Zofran Depression GERD (gastroesophageal reflux disease) History of COVID-19 03/18/22, pcr [facility], hospitalized day after diagnosis due to vomiting blood, discharged on 03/22/22; fever, vomiting, body chills and aches, diarrhea>resolved currently. History of diverticulitis of colon HTN (hypertension) h/o multiple hypertensive urgency episodes, renal artery stenosis, following with cardiology and vascular surgery Hyperlipidemia Multiple thyroid nodules New onset seizure 07/17/2019 r/t hypertensive emergency -> encephalopathy. last seizure was ~Spring/Summer 2019 per pt NSTEMI (non-ST elevated myocardial infarction) 2017 [facility]. Cath performed showed mild to moderate non-obstructive CAD. 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 Maynard Prediabetes diet controlled PRES (posterior reversible encephalopathy syndrome) has since caused seizures that started in 2019. following with PCP, last seizure per pt 08/2019 per PCP records Pulmonary emphysema Renal artery stenosis following with Dr Caesar Doty cardiomyopathy 2017. Admitted [facility], full cardiac workup including cath. EF at the time 40%, now resolved to 60-65% on echo 2018. Transient cerebrovascular ischemia pt unaware and denies Upper gastrointestinal bleed "bleeding currently stopped" Surgical History H/O cervical spine surgery ACDF C4-7 Dr. [place]: Grade 1 view, Bojorquez#2 and ETT#7.5 atraumatic x 1. No issues per anesthesia postop progress note. History of cardiac cath [place] - NO STENTS (per pt report, this cath not noted in cardiology notes) 2017, NSTEMI. NO INTERVENTION. History of esophagogastroduodenoscopy (EGD) History of hernia surgery right inguinal hernia repair History of hysterectomy History of ovarian cystectomy S/P aortobifemoral bypass surgery Status post surgery RLE thrombectomy Family History Father Family history of stomach cancer Malignant neoplasm of esophagus Stomach cancer Myocardial infarction Stroke Uncle Throat cancer Family history of cancer FAMILY HISTORY OF CANCER - UNCLE - VOCAL CORDS FAMILY HISTORY OF CANCER - AUNT - ? KIND Grandmother (Maternal) Bone cancer Breast cancer Mother No problems noted. Brother Lung cancer Other Family history of diabetes mellitus No family history of adverse response to anesthesia No pertinent family history Denies family history of Colon cancer Ovarian cancer Prostate cancer Crohn's disease IBD (inflammatory bowel disease) Social History Smoking Status: Never smoker packs per day: 2; Years Smoked: 25; Second Hand Exposure: No; Hx Alcohol Use: No Hx Substance Use: Yes Last Used Substance Other:: "not sure when, but recently" Substance Use Type Other:: uses it when zofran doesnt work about 4 times a year Preferred Language: Belgian Communication Ability: Effective Visual Impairment: No Limitations Hearing Ability: Normal Prevention Specialist Required: No Beliefs That Will Affect Care: None marital status: Current Living Situation: Spouse Current Living Situation Comment: [place] current occupational status: employed 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 Feels Safe at Home: Yes Safety Concerns: Feels Safe At This Time Childhood Exposure to Second-Hand Smoke: Yes caffeine: Yes (1 cup of coffee) during the past year weight has: other Dental Care, Regularly: No Physical Activity Frequency: Daily Physical Activity Frequency Comment: walking Seatbelt Use: always Sunscreen Use: Yes Assistive Devices: None Allergies Allergies Allergy/AdvReac Type Severity Reaction Status Date / Time napoles Allergy Intermediate Hives Verified 04/17/22 11:50 (green/hartman beans) doxycycline Allergy Intermediate Hives, Verified 04/17/22 11:50 vomiting Iodinated Contrast Media Allergy Intermediate Large Verified 04/17/22 11:50 hives, vomiting, "feeling hot" iodine Allergy Intermediate Hives, Verified 04/17/22 11:50 vomiting latex Allergy Intermediate Rash Verified 04/17/22 11:50 loperamide Allergy Intermediate Hives, Verified 04/17/22 11:50 vomiting meperidine Allergy Intermediate Hives, Verified 04/17/22 11:50 vomiting strawberry Allergy Intermediate Hives Verified 04/17/22 11:50 tomato Allergy Intermediate Hives Verified 04/17/22 11:50 prochlorperazine Allergy Mild N/V, Verified 04/17/22 11:50 itchiness Home Meds Home Medications Medication Instructions Recorded Confirmed multivitamin 1 tab PO QAM 12/16/18 04/17/22 rosuvastatin 40 mg tablet (Crestor) 40 mg PO HS 09/11/21 04/17/22 apixaban 2.5 mg tablet 2.5 mg PO BID 03/28/22 04/17/22 cholecalciferol (vitamin D3) 50 2,000 unit PO HS 03/28/22 04/17/22 mcg (2,000 unit) tablet cimetidine 200 mg tablet 200 mg PO UD PRN indigestion 03/28/22 04/17/22 clopidogrel 75 mg tablet (Plavix) 75 mg PO HS 03/28/22 04/17/22 metoprolol succinate 100 mg 50 mg PO DAILY 04/17/22 04/17/22 tablet,extended release 24 hr Previous Rx's Medication Instructions Recorded levetiracetam 1,000 mg tablet 1,000 mg PO BID #180 tabs 11/19/21 (Keppra) amitriptyline 25 mg tablet 25 mg PO HS #90 tabs 11/27/21 ondansetron HCl 4 mg tablet 4 mg PO Q8H PRN nausea and 12/18/21 vomiting #20 tabs venlafaxine 150 mg 150 mg PO QAM #90 caps 12/25/21 capsule,extended release 24 hr clonidine HCl 0.1 mg tablet 0.1 mg PO BID 3 months #180 tabs 02/14/22 pantoprazole 40 mg tablet,delayed 40 mg PO BID #180 tabs 03/27/22 release Results & Data (ED) Vital Signs Vital Signs - 24 hr 04/17/22 16:03 04/17/22 17:46 04/17/22 16:39 Temperature 36.8 C Temperature Source Oral Pulse Rate 90 Pulse Rate from SpO2 Sensor 98 H Respiratory Rate 18 Respiratory Effort / Characteristics Non-Labored Respiratory Depth Normal Respiratory Pattern Regular Blood Pressure 180/96 H Blood Pressure Mean 124 Blood Pressure Position Lying Pulse Oximetry 98 98 Oxygen Delivery Method Room Air Room Air Sepsis Recent Fever Within 48 Hours No Sepsis New/Unexplained Change in Mental Status N/A Sepsis Action Taken by Nursing No Action Required 04/17/22 16:53 04/17/22 16:53 04/17/22 17:00 Temperature Temperature Source Pulse Rate Pulse Rate from SpO2 Sensor 84 Respiratory Rate Respiratory Effort / Characteristics Respiratory Depth Respiratory Pattern Blood Pressure 172/105 H 166/133 H Blood Pressure Mean 127 144 Blood Pressure Position Pulse Oximetry 99 Oxygen Delivery Method Sepsis Recent Fever Within 48 Hours Sepsis New/Unexplained Change in Mental Status Sepsis Action Taken by Nursing 04/17/22 17:00 04/17/22 17:30 04/17/22 17:31 Temperature Temperature Source Pulse Rate Pulse Rate from SpO2 Sensor 91 H 81 Respiratory Rate Respiratory Effort / Characteristics Respiratory Depth Respiratory Pattern Blood Pressure 210/166 H Blood Pressure Mean 180 Blood Pressure Position Pulse Oximetry 98 97 Oxygen Delivery Method Sepsis Recent Fever Within 48 Hours Sepsis New/Unexplained Change in Mental Status Sepsis Action Taken by Nursing 04/17/22 17:32 04/17/22 18:00 04/17/22 18:30 Temperature Temperature Source Pulse Rate Pulse Rate from SpO2 Sensor 84 Respiratory Rate Respiratory Effort / Characteristics Respiratory Depth Respiratory Pattern Blood Pressure 186/134 H 205/119 H Blood Pressure Mean 151 147 Blood Pressure Position Pulse Oximetry 97 Oxygen Delivery Method Sepsis Recent Fever Within 48 Hours Sepsis New/Unexplained Change in Mental Status Sepsis Action Taken by Nursing 04/17/22 19:31 04/17/22 19:35 04/17/22 19:36 Temperature Temperature Source Pulse Rate Pulse Rate from SpO2 Sensor Respiratory Rate Respiratory Effort / Characteristics Respiratory Depth Respiratory Pattern Blood Pressure 198/125 H 194/139 H 178/137 H Blood Pressure Mean 149 157 150 Blood Pressure Position Pulse Oximetry Oxygen Delivery Method Sepsis Recent Fever Within 48 Hours Sepsis New/Unexplained Change in Mental Status Sepsis Action Taken by Nursing 04/17/22 20:00 04/17/22 20:35 04/17/22 20:37 Temperature Temperature Source Pulse Rate Pulse Rate from SpO2 Sensor 101 H Respiratory Rate Respiratory Effort / Characteristics Respiratory Depth Respiratory Pattern Blood Pressure 200/161 H 200/134 H Blood Pressure Mean 174 156 Blood Pressure Position Pulse Oximetry 96 Oxygen Delivery Method Sepsis Recent Fever Within 48 Hours Sepsis New/Unexplained Change in Mental Status Sepsis Action Taken by Nursing 04/17/22 21:00 04/17/22 21:00 04/17/22 21:30 Temperature Temperature Source Pulse Rate Pulse Rate from SpO2 Sensor 95 H Respiratory Rate Respiratory Effort / Characteristics Respiratory Depth Respiratory Pattern Blood Pressure 190/139 H 193/111 H Blood Pressure Mean 156 138 Blood Pressure Position Pulse Oximetry 97 Oxygen Delivery Method Sepsis Recent Fever Within 48 Hours Sepsis New/Unexplained Change in Mental Status Sepsis Action Taken by Nursing 04/17/22 21:30 04/17/22 22:00 04/17/22 22:15 Temperature Temperature Source Pulse Rate Pulse Rate from SpO2 Sensor 96 H 82 95 H Respiratory Rate Respiratory Effort / Characteristics Respiratory Depth Respiratory Pattern Blood Pressure Blood Pressure Mean Blood Pressure Position Pulse Oximetry 96 94 98 Oxygen Delivery Method Sepsis Recent Fever Within 48 Hours Sepsis New/Unexplained Change in Mental Status Sepsis Action Taken by Nursing 04/17/22 22:32 Temperature Temperature Source Pulse Rate Pulse Rate from SpO2 Sensor Respiratory Rate Respiratory Effort / Characteristics Respiratory Depth Respiratory Pattern Blood Pressure 93/73 L Blood Pressure Mean 79 Blood Pressure Position Pulse Oximetry Oxygen Delivery Method Sepsis Recent Fever Within 48 Hours Sepsis New/Unexplained Change in Mental Status Sepsis Action Taken by Nursing Laboratory Data Attestation: I reviewed the patient's lab results. Result diagrams: 04/18/22 06:18 04/18/22 06:18 Lab Results 04/17/22 04/17/22 04/17/22 Range/Units 18:00 18:00 18:00 WBC 11.09 H (4.8-10.8) K/ul RBC 4.66 (3.93-5.22) M/uL Hgb 14.1 (12.0-16.0) g/dl Hct 43.0 (34.1-44.9) % MCV 92.3 (80.0-100.0) fL MCH 30.3 (25.0-34.0) pg MCHC 32.8 (32.0-36.0) g/dL RDW Std Deviation 46.4 H (36.4-46.3) fL RDW Coeff of Jose Luis 13.6 (11.5-14.5) % Plt Count 328 (130-400) K/uL MPV 10.0 (9.4-12.3) fL Immature Gran % (Auto) 0.6 % Neut % (Auto) 81.0 % Lymph % (Auto) 14.0 % [place] % (Auto) 3.3 % Eos % (Auto) 0.4 % Baso % (Auto) 0.7 % Neut # (Auto) 8.98 H (1.4-6.5) K/uL Lymph # (Auto) 1.55 (1.2-3.4) K/uL [place] # (Auto) 0.37 (0.24-0.82) K/uL Eos # (Auto) 0.04 (0-0.50) K/uL Baso # (Auto) 0.08 (0-0.2) K/uL Immature Gran # (Auto) 0.07 H (0.00-0.02) K/uL Sodium 141 (136-145) mmol/L Potassium 3.5 (3.5-5.1) mmol/L Chloride 108 H (98-107) mmol/L Carbon Dioxide 18 L (21-32) mmol/L Anion Gap 15 H (3-11) BUN 9 (6-23) mg/dl Creatinine 0.66 (0.6-1.2) mg/dl Est Cr Clr Drug Dosing 99.6 ml/min Est GFR ( Amer) 114.5 ml/min Est GFR (Non-Af Amer) 98.8 ml/min BUN/Creatinine Ratio 13.6 (10-20) Glucose 156 H (70-99(Fasting)) mg/dl Calcium 9.0 (8.5-10.1) mg/dl Phosphorus 2.8 (2.5-4.9) mg/dl Magnesium 1.4 L (1.7-2.4) mg/dl Total Bilirubin 0.3 (0.2-1.0) mg/dl Direct Bilirubin (0-0.2) mg/dl AST 27 (13-39) U/L ALT 23 (7-52) U/L Alkaline Phosphatase 86 (34-104) U/L Troponin I High Sens 13.8 (0-14) pg/ml Total Protein 7.5 (6.0-8.3) gm/dl Albumin 4.5 (3.4-5.0) gm/dl Globulin 3.0 (2.5-4.0) gm/dl Albumin/Globulin Ratio 1.5 (0.9-2) Lipase (11-82) U/L TSH 3.163 (0.300-4.500) uIu/ml SARS-CoV-2, RNA, NAAT (NEGATIVE) 04/17/22 04/17/22 Range/Units 18:00 18:59 WBC (4.8-10.8) K/ul RBC (3.93-5.22) M/uL Hgb (12.0-16.0) g/dl Hct (34.1-44.9) % MCV (80.0-100.0) fL MCH (25.0-34.0) pg MCHC (32.0-36.0) g/dL RDW Std Deviation (36.4-46.3) fL RDW Coeff of Jose Luis (11.5-14.5) % Plt Count (130-400) K/uL MPV (9.4-12.3) fL Immature Gran % (Auto) % Neut % (Auto) % Lymph % (Auto) % [place] % (Auto) % Eos % (Auto) % Baso % (Auto) % Neut # (Auto) (1.4-6.5) K/uL Lymph # (Auto) (1.2-3.4) K/uL [place] # (Auto) (0.24-0.82) K/uL Eos # (Auto) (0-0.50) K/uL Baso # (Auto) (0-0.2) K/uL Immature Gran # (Auto) (0.00-0.02) K/uL Sodium (136-145) mmol/L Potassium (3.5-5.1) mmol/L Chloride (98-107) mmol/L Carbon Dioxide (21-32) mmol/L Anion Gap (3-11) BUN (6-23) mg/dl Creatinine (0.6-1.2) mg/dl Est Cr Clr Drug Dosing ml/min Est GFR ( Amer) ml/min Est GFR (Non-Af Amer) ml/min BUN/Creatinine Ratio (10-20) Glucose (70-99(Fasting)) mg/dl Calcium (8.5-10.1) mg/dl Phosphorus (2.5-4.9) mg/dl Magnesium (1.7-2.4) mg/dl Total Bilirubin (0.2-1.0) mg/dl Direct Bilirubin 0.1 (0-0.2) mg/dl AST (13-39) U/L ALT (7-52) U/L Alkaline Phosphatase (34-104) U/L Troponin I High Sens (0-14) pg/ml Total Protein (6.0-8.3) gm/dl Albumin (3.4-5.0) gm/dl Globulin (2.5-4.0) gm/dl Albumin/Globulin Ratio (0.9-2) Lipase 25 (11-82) U/L TSH (0.300-4.500) uIu/ml SARS-CoV-2, RNA, NAAT NEGATIVE (NEGATIVE) Administered Medications Discontinued Medications Acetaminophen (Acetaminophen 325 Mg Tab) 650 mg PO Q4H PRN PRN Reason: Pain or Fever Stop: 05/17/22 23:50 Last Admin: 04/18/22 00:17 Dose: 650 mg Documented By: AM Apixaban (Apixaban 2.5 Mg Tab) 2.5 mg PO BID [facility] Stop: 05/18/22 08:59 Last Admin: 04/18/22 08:30 Dose: 2.5 mg Documented By: CA Clonidine HCl (Clonidine Hcl 0.1 Mg Tab) 0.1 mg PO NOW ONE Stop: 04/17/22 20:30 Last Admin: 04/17/22 20:35 Dose: 0.1 mg Documented By: RDD Clonidine HCl (Clonidine Hcl 0.1 Mg Tab) 0.1 mg PO BID [facility] Stop: 05/18/22 08:59 Last Admin: 04/18/22 08:30 Dose: 0.1 mg Documented By: JERONIMO Diphenhydramine HCl (Diphenhydramine 50 Mg/Ml Vial) 25 mg IV NOW STA Stop: 04/17/22 18:29 Last Admin: 04/17/22 18:49 Dose: 25 mg Documented By: VINITA Famotidine (Famotidine 20 Mg Tab) 20 mg PO DAILY PRN PRN Reason: indigestion Stop: 05/18/22 00:10 Last Admin: 04/18/22 08:30 Dose: 20 mg Documented By: JERONIMO Sodium Chloride (Nss 1000ml) 1,000 mls @ 999 mls/hr IV .Q1H1M MIKE Stop: 04/17/22 18:30 Last Infusion: 04/17/22 19:50 Dose: 0 mls/hr Documented By: Admin: 04/17/22 18:00 Dose: 999 mls/hr Documented By: VINITA Famotidine (Pepcid 20mg Iv Push) 20 mg in 5 mls @ 2.5 mls/min IV NOW STA Stop: 04/17/22 18:28 Last Admin: 04/17/22 18:48 Dose: 2.5 mls/min Documented By: VINITA Promethazine HCl (Phenergan) 25 mg in 51 mls @ 204 mls/hr IV NOW STA Stop: 04/17/22 18:42 Last Infusion: 04/17/22 19:50 Dose: 0 mls/hr Documented By: Admin: 04/17/22 18:48 Dose: 204 mls/hr Documented By: VINITA Magnesium Sulfate/Dextrose (Magnesium Sulfate / D5w) 1 gm in 100 mls @ 100 mls/hr IV Q1H MIKE Stop: 04/17/22 23:19 Last Infusion: 04/18/22 01:24 Dose: 0 mls/hr Documented By: Admin: 04/18/22 00:18 Dose: 100 mls/hr Documented By: Infusion: 04/18/22 00:18 Dose: 0 mls/hr Documented By: Infusion: 04/17/22 23:15 Dose: 0 mls/hr Documented By: Admin: 04/17/22 21:32 Dose: 100 mls/hr Documented By: NABEEL Sodium Chloride (Nss 1000ml) 1,000 mls @ 999 mls/hr IV .Q1H1M ONE Stop: 04/17/22 23:55 Last Infusion: 04/18/22 00:16 Dose: 0 mls/hr Documented By: Admin: 04/17/22 23:15 Dose: 999 mls/hr Documented By: NABEEL Levetiracetam (Levetiracetam 500 Mg Tab) 1,000 mg PO BID MIKE Stop: 05/18/22 08:59 Last Admin: 04/18/22 08:30 Dose: 1,000 mg Documented By: JERONIMO Lorazepam (Lorazepam 2 Mg/1 Ml Vial) 1 mg IV NOW STA; Protocol Stop: 04/17/22 22:32 Last Admin: 04/17/22 23:14 Dose: Not Given Documented By: NABEEL Magnesium Oxide (Magnesium Oxide 400 Mg Tab) 400 mg PO QAM [facility] Stop: 05/17/22 19:59 Last Admin: 04/18/22 08:33 Dose: 400 mg Documented By: Admin: 04/17/22 20:35 Dose: 400 mg Documented By: NABEEL Metoprolol Succinate (Metoprolol Succ 50mg Ext Rel Tab) 50 mg PO DAILY [facility] Stop: 05/18/22 08:59 Last Admin: 04/18/22 08:30 Dose: 50 mg Documented By: JERONIMO Metoprolol Tartrate (Metoprolol Tartrate 1 Mg/Ml Vial) 5 mg IV Q5M PRN PRN Reason: SBP > 200 or DBP > 110 Stop: 05/17/22 23:50 Last Admin: 04/18/22 01:55 Dose: 5 mg Documented By: Admin: 04/18/22 00:17 Dose: 5 mg Documented By: MAYO Multivitamins (Multivitamin Tab) [facility] Stop: 05/18/22 08:59 Last Admin: 04/18/22 08:30 Dose: 1 tab Documented By: JERONIMO Ondansetron HCl (Ondansetron Inj 2 Mg/Ml 2 Ml Vial) 4 mg IV NOW STA Stop: 04/17/22 19:52 Last Admin: 04/17/22 20:37 Dose: Not Given Documented By: NABEEL Ondansetron HCl (Ondansetron 4 Mg Od Tab) 4 mg PO NOW STA Stop: 04/17/22 20:18 Last Admin: 04/17/22 20:35 Dose: 4 mg Documented By: NABEEL Pantoprazole Sodium (Pantoprazole 40 Mg Tab) 40 mg PO BID [facility]KE Stop: 05/18/22 08:59 Last Admin: 04/18/22 08:30 Dose: 40 mg Documented By: JERONIMO Venlafaxine HCl (Venlafaxine Hcl Xr 150 Mg Capxr) 150 mg PO QAM [facility] Stop: 05/18/22 08:59 Last Admin: 04/18/22 08:30 Dose: 150 mg Documented By: CA Imaging Data Radiologist's Impression: Chest X-Ray 04/17/22 17:29 XR chest 1V portable CLINICAL HISTORY: weakness TECHNIQUE: Single frontal radiograph of the chest was obtained. Comparison: Comparison is made to chest radiographs 09/14/2021 FINDINGS: Anterior cervical fixation hardware is seen. Old right rib fractures are noted. The cardiomediastinal silhouette is normal. The lungs are clear. No evidence of pleural effusion or pneumothorax. IMPRESSION: No acute chest disease. ACT 112: Negative or not required by law. Electronically signed by: Rohit Farias M.D. 04/17/2022 6:15 PM Discharge Plan Visit Data Chief Complaint: Hypertension Stated Complaint: PostOp HTN ED Provider: Clarence Call Discharge Problem: Hypertensive urgency, Hypomagnesemia, Intractable nausea and vomiting Patient Disposition: Admitted As Inpatient Discharge Instructions Interventions: ED Discharge Assessment Last Done: 04/17/22 23:45
[2022-04-17] MEDS: MAGNESIUM SULFATE / D5W 1 GM/100 ML BAG IV SCH (21:32)
[2022-04-17] MEDS ORDERED: LORazepam 2 MG/2 ML SYR IV STA (22:31)
[2022-04-17] MEDS ORDERED: SODIUM CHLORIDE 0.9% 1000ML 1,000 ML IV ONE (22:55)
--- NOTE | 2022-04-17 23:50 | History & Physical Report ---
Date of Service April 17, 2022 Assessment & Plan (1) Hypertensive urgency: Plan: Cyndie Velasquez is a 57-year-old female with past medical history of depression/anxiety, obstructive sleep apnea, cyclic vomiting syndrome, upper GI bleed, coronary artery disease, emphysema, hyperlipidemia, marijuana dependence who was taken to the emergency department after having EGD/colonoscopy done at [facility] endoscopy suite due to high BP and intractable n/v. Hypertensive urgency Patient largely asymptomatic, did report 1 instance of headache once up on the floor She was treated with labetalol after her procedure at endoscopy suite, oral clonidine in the ED Her pressure then has been somewhat labile prior to transfer up to the floors blood pressure went from 190s over 110s to 80s over 50s Once up on floors she was back up to 190s over 130s and reported a headache Given acetaminophen for headache and metoprolol tartrate 5 mg IV x2 for blood pressure On subsequent rechecks patient decreased to 180s over 80s systolic, then back up to 190s over 100s, then 170s over 100s most recently 110s over 70s Continue home antihypertensives with clonidine, metoprolol succinate Monitor BP closely Nausea/vomiting Received Zofran in ED Patient has not been complaining of any further nausea/vomiting at this time Depression/anxiety Continue home venlafaxine, amitriptyline Seizure disorder Continue home Keppra CAD Continue home metoprolol succinate, clopidogrel Peripheral artery disease Patient states she is on anticoagulant therapy for this Apixaban 2.5 mg twice daily GERD Continue pantoprazole, cimetidine DVT prophylaxis: Anticoagulated on apixaban Diet: Heart healthy Dispo: Telemetry CODE STATUS: Full (2) Anxiety: (3) Cyclic vomiting syndrome: (4) Upper gastrointestinal bleed: (5) GERD (gastroesophageal reflux disease): (6) HTN (hypertension): (7) CAD (coronary artery disease): (8) Hyperlipidemia: (9) Seizure disorder: Admission and Anticipated Discharge Date Admission Date: April 17, 2022 History of Present Illness Primary Care Provider: Teena Killian DO Cyndie Velasquez is a 57-year-old female with past medical history of depression/anxiety, obstructive sleep apnea, cyclic vomiting syndrome, upper GI bleed, coronary artery disease, emphysema, hyperlipidemia, marijuana dependence who was taken to the emergency department after having EGD/colonoscopy done at [facility] endoscopy suite. She was able to undergo her procedure, however, she developed severe nausea and became hypertensive to 200s systolic after completion of the procedure. She was given labetalol at that time and then taken to the ED. The patient did not have any symptoms prior to her procedure. In the ED, she had lab work showing white count of 11.09, hemoglobin 14.1, magnesium 1.4. She had a negative chest x-ray and a negative CT of the abdo men/pelvis. She was given magnesium oxide 400 p.o. x1, mag sulfate 2 g IV, clonidine 0.1 mg p.o. x1, Benadryl 25 mg IV x1, Zofran 4 mg IV x1. Upon my evaluation, patient seems very anxious. She actually started having some tremors and held my hand stating "I think I am having a seizure". However, she was completely responsive during the entire time and able to answer my questions. I talked to her during the episode and assured her that she was not having a seizure at the time and that she was likely feeling anxious about the situation. We did some deep breathing exercises, and she was able to calm down. At that time, denied headache, dizziness, nausea, vomiting, abdominal pain, chest pain, palpitations, shortness of breath, cough, weakness, numbness, tingling. Her blood pressure had been elevated to the 200s over 160s in the ED, but shortly prior to transfer up to the floor she actually had BP down to 70s over 60s. Allergies Allergy/AdvReac Type Severity Reaction Status Date / Time napoles Allergy Intermediate Hives Verified 04/17/22 11:50 (green/hartman beans) doxycycline Allergy Intermediate Hives, Verified 04/17/22 11:50 vomiting Iodinated Contrast Media Allergy Intermediate Large Verified 04/17/22 11:50 hives, vomiting, "feeling hot" iodine Allergy Intermediate Hives, Verified 04/17/22 11:50 vomiting latex Allergy Intermediate Rash Verified 04/17/22 11:50 loperamide Allergy Intermediate Hives, Verified 04/17/22 11:50 vomiting meperidine Allergy Intermediate Hives, Verified 04/17/22 11:50 vomiting strawberry Allergy Intermediate Hives Verified 04/17/22 11:50 tomato Allergy Intermediate Hives Verified 04/17/22 11:50 prochlorperazine Allergy Mild N/V, Verified 04/17/22 11:50 itchiness Home Medications Medication Instructions Recorded Confirmed Type multivitamin 1 tab PO QAM 12/16/18 04/17/22 History rosuvastatin 40 mg tablet (Crestor) 40 mg PO HS 09/11/21 04/17/22 History levetiracetam 1,000 mg tablet 1,000 mg PO BID #180 tabs 11/19/21 04/17/22 Rx (Keppra) amitriptyline 25 mg tablet 25 mg PO HS #90 tabs 11/27/21 04/17/22 Rx ondansetron HCl 4 mg tablet 4 mg PO Q8H PRN nausea and 12/18/21 04/17/22 Rx vomiting #20 tabs venlafaxine 150 mg 150 mg PO QAM #90 caps 12/25/21 04/17/22 Rx capsule,extended release 24 hr clonidine HCl 0.1 mg tablet 0.1 mg PO BID 3 months #180 tabs 02/14/22 04/17/22 Rx pantoprazole 40 mg tablet,delayed 40 mg PO BID #180 tabs 03/27/22 04/17/22 Rx release apixaban 2.5 mg tablet 2.5 mg PO BID 03/28/22 04/17/22 History cholecalciferol (vitamin D3) 50 2,000 unit PO HS 03/28/22 04/17/22 History mcg (2,000 unit) tablet cimetidine 200 mg tablet 200 mg PO UD PRN indigestion 03/28/22 04/17/22 History clopidogrel 75 mg tablet (Plavix) 75 mg PO HS 03/28/22 04/17/22 History metoprolol succinate 100 mg 50 mg PO DAILY 04/17/22 04/17/22 History tablet,extended release 24 hr Past Med/Surg History Medical History Anxiety disorder CAD (coronary artery disease) Mild-moderate non-obstructive Carotid stenosis < 50% stenosis B/L per US 12/16/18 Cervical disc disorder FULL ROM Cyclic vomiting syndrome no GI pathology on EGD, US, CT of abd/pelvis, celiac testing and GES per 04/2020 GI consult: biliary w/u and upper GI study recommended (upper GI study neg per d/c summary), cannabis cessation, continue Protonix and prn Zofran Depression GERD (gastroesophageal reflux disease) History of COVID-19 03/18/22, pcr [facility] [place], hospitalized day after diagnosis due to vomiting blood, discharged on 03/22/22; fever, vomiting, body chills and aches, diarrhea>resolved currently. History of diverticulitis of colon HTN (hypertension) h/o multiple hypertensive urgency episodes, renal artery stenosis, following with cardiology and vascular surgery Hyperlipidemia Multiple thyroid nodules New onset seizure 07/17/2019 r/t hypertensive emergency -> encephalopathy. last seizure was ~Spring/Summer 2019 per pt NSTEMI (non-ST elevated myocardial infarction) 2017 [facility]. Cath performed showed mild to moderate non-obstructive CAD. 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 Maynard Prediabetes diet controlled PRES (posterior reversible encephalopathy syndrome) has since caused seizures that started in 2018. following with PCP, last seizure per pt 08/2019 per PCP records Pulmonary emphysema Renal artery stenosis following with Dr Maynard Takotsubo cardiomyopathy 2017. Admitted [facility], full cardiac workup including cath. EF at the time 40%, now resolved to 60-65% on echo 2018. Transient cerebrovascular ischemia pt unaware and denies Upper gastrointestinal bleed "bleeding currently stopped" Surgical History H/O cervical spine surgery ACDF C4-7 Dr. [place]: Grade 1 view, Bojor[place]#2 and ETT#7.5 atraumatic x 1. No issues per anesthesia postop progress note. History of cardiac cath DE - NO STENTS (per pt report, this cath not noted in cardiology notes) 2017, NSTEMI. NO INTERVENTION. History of esophagogastroduodenoscopy (EGD) History of hernia surgery right inguinal hernia repair History of hysterectomy History of ovarian cystectomy S/P aortobifemoral bypass surgery Status post surgery RLE thrombectomy Family History Father Family history of stomach cancer Malignant neoplasm of esophagus Stomach cancer Myocardial infarction Stroke Uncle Throat cancer Family history of cancer FAMILY HISTORY OF CANCER - UNCLE - VOCAL [place]DS FAMILY HISTORY OF CANCER - AUNT - ? KIND Grandmother (Maternal) Bone cancer Breast cancer Mother No problems noted. Brother Lung cancer Other Family history of diabetes mellitus No family history of adverse response to anesthesia No pertinent family history Denies family history of Colon cancer Ovarian cancer Prostate cancer Crohn's disease IBD (inflammatory bowel disease) Social History Smoking Status: Never smoker packs per day: 2; Years Smoked: 25; Second Hand Exposure: No; Hx Alcohol Use: No Hx Substance Use: Yes Last Used Substance Other:: "not sure when, but recently" Substance Use Type Other:: uses it when zofran doesnt work about 4 times a year Preferred Language: [place]ese Communication Ability: Effective Visual Impairment: No Limitations Hearing Ability: Normal Fish Rod Maker Required: No Beliefs That Will Affect Care: None marital status: Current Living Situation: Spouse Current Living Situation Comment: [place] current occupational status: employed 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 NAD. HEENT: PERRL, EOMI. Moist mucous membranes. NECK: No JVD. No lymphadenopathy. CHEST/LUNGS: CTAB A/P. No crackles, wheezes, rales, rhonchi. HEART: RRR. No m/g/r. No carotid bruits. ABDOMEN: NT/ND, soft. BS+ x4 EXTREMITIES: No cyanosis, no clubbing, no edema SKIN: Warm and dry. No rashes or lesions. PSYCHIATRIC: Anxious affect, no SI, no pressured speech, no hallucinations NEUROLOGIC: No FND. CN II-XII grossly intact. Results & Data Results & Data ([facility]) Vital Signs (Past 12 Hours) Vital Signs Temp Pulse Resp BP Pulse Ox O2 Del Method 04/17/22 23:45 70 19 90/88 L 99 Room Air 04/17/22 22:50 96/57 L 04/17/22 22:43 86/62 L 04/17/22 22:42 79/63 L 04/17/22 22:32 93/73 L 04/17/22 22:15 98 04/17/22 22:00 94 04/17/22 21:30 96 04/17/22 21:30 193/111 H 04/17/22 21:00 97 04/17/22 21:00 190/139 H 04/17/22 20:37 96 04/17/22 20:35 200/134 H 04/17/22 20:00 200/161 H 04/17/22 19:36 178/137 H 04/17/22 19:35 194/139 H 04/17/22 19:31 198/125 H 04/17/22 18:30 205/119 H 04/17/22 18:00 186/134 H 04/17/22 17:32 97 04/17/22 17:31 210/166 H 04/17/22 17:30 97 04/17/22 17:00 98 04/17/22 17:00 166/133 H 04/17/22 16:53 99 04/17/22 16:53 172/105 H 04/17/22 16:39 98 04/17/22 17:46 Room Air 04/17/22 16:03 36.8 C 90 18 180/96 H 98 Room Air Code Status & VTE Plan VTE Prophylaxis Plan VTE Prophylaxis will be ordered: No Supervising Physician Co-Signing Physician Notes Attending addendum: I have physically seen this patient, have supervised the medical residents activities, and agree with the H&P unless as otherwise noted. Assessment and Plan: Uncontrolled hypertension/CAD- Patient noted to have increased blood pressure after EGD and colonoscopy procedures today Received IV labetalol and oral clonidine from endoscopy suite in the ED Blood pressure is likely in part increase secondary to discomfort from the 2 previous procedures Pain control with IV acetaminophen Improved control with metoprolol 5 mg IV x2. Continue clonidine and metoprolol succinate as noted Blood pressure has improved to 110s over 70s Continue clopidogrel Nausea/vomiting/abdominal pain- Zofran 4 mg IV every 6 hours as needed IV Tylenol as needed for abdominal pain PAD- Continue blood pressure control as noted above Continue apixaban Depression/anxiety- Continue venlafaxine and amitriptyline Seizure disorder- Continue Keppra Remaining orders and notations as noted Resident Activity Tracking Resident Involvement: Resident Care Provided Care Provided: Adult Hospital Medicine (1) CAD (coronary artery disease) Associated angina: without angina Coronary Disease-Associated Artery/Lesion type: [place] artery [place] vs. transplanted heart: [place] heart Qualified Code(s): I25.10 - Atherosclerotic heart disease of [place] coronary artery without angina pectoris (2) Hyperlipidemia Hyperlipidemia type: unspecified Qualified Code(s): E78.5 - Hyperlipidemia, unspecified
[2022-04-17] MEDS ORDERED: ONDANSETRON INJ 2 MG/ML 2 ML VIAL IV PRN (23:51)
[2022-04-17] MEDS ORDERED: POLYETHYLENE (MIRALAX) 17 GM PACK PO PRN (23:51)
[2022-04-17] MEDS ORDERED: ACETAMINOPHEN 325 MG TAB PO PRN (23:51)
[2022-04-18] MEDS ORDERED: ONDANSETRON 4 MG OD TAB PO PRN (00:09)
[2022-04-18] MEDS ORDERED: FAMOTIDINE 20 MG TAB PO PRN (00:11)
[2022-04-18] MEDS: METOPROLOL TARTRATE 1 MG/ML VIAL IV PRN ×2 (00:17→01:55)
[2022-04-18] MEDS: MAGNESIUM SULFATE / D5W 1 GM/100 ML BAG IV SCH (00:18)
[2022-04-18 01:31] LABS: Appearance Urine Clear (Clear); Bacteria Urine Automated 4+ (Negative); Bilirubin Urine Negative (Negative); Blood Urine 2+ (Negative); Color Urine Yellow; Epithelial Cell Urine Auto >30 /lpf (0-5); Glucose Urine UA Negative (Negative); Ketones Urine Negative (Negative); Leukocyte Esterase Urine Trace (Negative); Nitrite Urine Negative (Negative); Protein Urine 3+ (Negative); Urobilinogen Urine Negative (Negative)
[2022-04-18] MEDS ORDERED: METOPROLOL TARTRATE 1 MG/ML VIAL IV PRN ×2 (02:35→04:53)
[2022-04-18 06:52] LABS: Basophils # (auto) 0.05 K/uL (0-0.2); Basophils % (auto) 0.5 %; Hematocrit (blood only) 42.5 % (34.1-44.9); Hemoglobin 14.4 g/dl (12.0-16.0); Immature Granulocytes # (auto) 0.05 K/uL (0.00-0.02); Immature Granulocytes % (auto) 0.5 %; Lymphocytes # (auto) 2.19 K/uL (1.2-3.4); Lymphocytes % (auto) 20.4 %; Mean Corpuscular Hemoglobin 29.9 pg (25.0-34.0); Mean Corpuscular Hgb Conc 33.9 g/dL (32.0-36.0); Mean Corpuscular Volume 88.4 fL (80.0-100.0); Mean Platelet Volume 10.1 fL (9.4-12.3); Monocytes # (auto) 0.83 K/uL (0.24-0.82); Monocytes % (auto) 7.7 %; Neutrophils # (auto) 7.63 K/uL (1.4-6.5); Neutrophils % (auto) 70.9 %; Platelet Count 340 K/uL (130-400); RDW Coefficient of Variation 13.6 % (11.5-14.5); RDW Standard Deviation 43.8 fL (36.4-46.3); Red Blood Count 4.81 M/uL (3.93-5.22); White Blood Count 10.75 K/ul (4.8-10.8)
[2022-04-18 07:19] LABS: BUN Creatinine Ratio 13.6 (10-20); Calcium 9.6 mg/dl (8.5-10.1); Creatinine Clr Calc Pharmacy 78.5 ml/min; Est GFR (African American) 94.1 ml/min; Est GFR (Non-African American) 81.2 ml/min; Potassium 3.8 mmol/L (3.5-5.1)
--- NOTE | 2022-04-18 08:03 | Hospitalist Progress Note ---
Date of Service April 18, 2022 Assessment & Plan (1) Hypertensive urgency: Plan: Hypertensive urgency Patient largely asymptomatic, did report 1 instance of headache once up on the floor She was treated with labetalol after her procedure at endoscopy suite, oral clonidine in the ED Her pressure then has been somewhat labile prior to transfer up to the floors blood pressure went from 190s over 110s to 80s over 50s Once up on floors she was back up to 190s over 130s and reported a headache Given acetaminophen for headache and metoprolol tartrate 5 mg IV x2 for blood pressure On subsequent rechecks patient decreased to 180s over 80s systolic, then back up to 190s over 100s, then 170s over 100s most recently 110s over 70s (2) Anxiety: Plan: Continue home venlafaxine, amitriptyline (3) Cyclic vomiting syndrome: Plan: Received Zofran in ED Patient has not been complaining of any further nausea/vomiting at this time (4) GERD (gastroesophageal reflux disease): Plan: Continue pantoprazole, cimetidine (5) HTN (hypertension): Plan: Continue home antihypertensives with clonidine, metoprolol succinate Monitor BP closely (6) CAD (coronary artery disease): Plan: Continue home metoprolol succinate, clopidogrel (7) Hyperlipidemia: Plan: Patient states she is on anticoagulant therapy for this Apixaban 2.5 mg twice daily (8) Seizure disorder: Plan: Continue home Keppra (9) Upper gastrointestinal bleed: Plan: - Monitoring (10) DVT prophylaxis: Plan: - Apixaban Admission and Anticipated Discharge Date Admission Date: April 17, 2022 Review of Systems Review of Systems: GENERAL: HEENT: NECK: CHEST/LUNGS: HEART: ABDOMEN: EXTREMITIES: SKIN: PSYCHIATRIC: NEUROLOGIC: Physical Exam Physical Exam: GENERAL: A&Ox3. NAD. HEENT: PERRL, EOMI. Moist mucous membranes. NECK: No JVD. No lymphadenopathy. CHEST/LUNGS: CTAB A/P. No crackles, wheezes, rales, rhonchi. HEART: RRR. No m/g/r. No carotid bruits. ABDOMEN: NT/ND, soft. BS+ x4 EXTREMITIES: No cyanosis, no clubbing, no edema SKIN: Warm and dry. No rashes or lesions. PSYCHIATRIC: Anxious affect, no SI, no pressured speech, no hallucinations NEUROLOGIC: No FND. CN II-XII grossly intact. Results & Data Results & Data ([facility]) Vital Signs (Past 12 Hours) Vital Signs Temp Pulse Pulse Resp BP BP Pulse Ox 04/18/22 04:47 37.3 C 90 20 110/78 95 04/18/22 02:36 92 H 174/102 H 04/17/22 23:50 107 H 04/18/22 00:47 95 H 186/80 H 04/18/22 01:55 98 H 193/102 H 04/18/22 00:17 102 H 198/136 H 04/18/22 00:17 102 H 198/136 H 04/18/22 00:02 04/17/22 23:51 04/17/22 23:42 37.3 C 87 17 188/133 H 99 04/17/22 23:45 70 19 90/88 L 99 04/17/22 22:50 96/57 L 04/17/22 22:43 86/62 L 04/17/22 22:42 79/63 L 04/17/22 22:32 93/73 L 04/17/22 22:15 98 04/17/22 22:00 94 04/17/22 21:30 96 04/17/22 21:30 193/111 H 04/17/22 21:00 97 04/17/22 21:00 190/139 H 04/17/22 20:37 96 04/17/22 20:35 200/134 H 04/17/22 20:00 200/161 H Pulse Ox O2 Del Method O2 Del Method 04/18/22 04:47 Room Air 04/18/22 02:36 04/17/22 23:50 04/18/22 00:47 04/18/22 01:55 04/18/22 00:17 04/18/22 00:17 04/18/22 00:02 Room Air 04/17/22 23:51 97 Room Air 04/17/22 23:42 Room Air 04/17/22 23:45 Room Air 04/17/22 22:50 04/17/22 22:43 04/17/22 22:42 04/17/22 22:32 04/17/22 22:15 04/17/22 22:00 04/17/22 21:30 04/17/22 21:30 04/17/22 21:00 04/17/22 21:00 04/17/22 20:37 04/17/22 20:35 04/17/22 20:00 (1) CAD (coronary artery disease) Coronary Disease-Associated Artery/Lesion type: [place] artery [place] vs. transplanted heart: [place] heart Associated angina: without angina Qualified Code(s): I25.10 - Atherosclerotic heart disease of [place] coronary artery without angina pectoris (2) Hyperlipidemia Hyperlipidemia type: unspecified Qualified Code(s): E78.5 - Hyperlipidemia, unspecified
[2022-04-18] MEDS: MAGNESIUM OXIDE 400 MG TAB PO SCH (08:33)
[2022-04-18] MEDS ORDERED: METOPROLOL SUCC 50MG EXT REL TAB PO SCH (09:00)
[2022-04-18] MEDS ORDERED: MULTIVITAMIN TAB PO SCH (09:00)
[2022-04-18] MEDS ORDERED: PANTOprazole 40 MG TAB PO SCH (09:00)
[2022-04-18] MEDS ORDERED: APIXABAN 2.5 MG TAB PO SCH (09:00)
[2022-04-18] MEDS ORDERED: cloNIDine HCL 0.1 MG TAB PO SCH (09:00)
[2022-04-18] MEDS ORDERED: VENLAFAXINE HCL XR 150 MG CAPXR PO SCH (09:00)
[2022-04-18] MEDS ORDERED: levETIRAcetam 500 MG TAB PO SCH (09:00)
--- NOTE | 2022-04-18 10:39 | Discharge Summary ---
Date of Service April 18, 2022 Admission HPI Per Admitting Provider Cyndie Velasquez is a 57-year-old female with past medical history of depression/anxiety, obstructive sleep apnea, cyclic vomiting syndrome, upper GI bleed, coronary artery disease, emphysema, hyperlipidemia, marijuana dependence who was taken to the emergency department after having EGD/colonoscopy done at [facility] endoscopy suite. She was able to undergo her procedure, however, she developed severe nausea and became hypertensive to 200s systolic after completion of the procedure. She was given labetalol at that time and then taken to the ED. The patient did not have any symptoms prior to her procedure. In the ED, she had lab work showing white count of 11.09, hemoglobin 14.1, magnesium 1.4. She had a negative chest x-ray and a negative CT of the abdomen/pelvis. She was given magnesium oxide 400 p.o. x1, mag sulfate 2 g IV, clonidine 0.1 mg p.o. x1, Benadryl 25 mg IV x1, Zofran 4 mg IV x1. Upon my evaluation, patient seems very anxious. She actually started having some tremors and held my hand stating "I think I am having a seizure". However, she was completely responsive during the entire time and able to answer my questions. I talked to her during the episode and assured her that she was not having a seizure at the time and that she was likely feeling anxious about the situation. We did some deep breathing exercises, and she was able to calm down. At that time, denied headache, dizziness, nausea, vomiting, abdominal pain, chest pain, palpitations, shortness of breath, cough, weakness, numbness, tingling. Her blood pressure had been elevated to the 200s over 160s in the ED, but shortly prior to transfer up to the floor she actually had BP down to 70s over 60s. Admission Exam Per Admitting Provider GENERAL: A&Ox3. NAD. HEENT: PERRL, EOMI. Moist mucous membranes. NECK: No JVD. No lymphadenopathy. CHEST/LUNGS: CTAB A/P. No crackles, wheezes, rales, rhonchi. HEART: RRR. No m/g/r. No carotid bruits. ABDOMEN: NT/ND, soft. BS+ x4 EXTREMITIES: No cyanosis, no clubbing, no edema SKIN: Warm and dry. No rashes or lesions. PSYCHIATRIC: Anxious affect, no SI, no pressured speech, no hallucinations NEUROLOGIC: No FND. CN II-XII grossly intact. Principal Diagnosis Hypertension Urgency Discharge Exam Constitutional: well-appearing, no acute distress HEENT: NCAT, no conjunctival injection CV: regular rhythm, no murmur appreciated, extremities well-perfused, no LE edema Resp: CTABL, no wheezes/rales/rhonchi appreciated, no increased work of breathing GI: soft, nondistended, nontender, BS normoactive MSK: no gross deformities appreciated Skin: warm, dry, no rash appreciated Neuro: alert, oriented, no focal neurologic deficit appreciated Discharge Data Allergies Allergy/AdvReac Type Severity Reaction Status Date / Time napoles Allergy Intermediate Hives Verified 04/17/22 11:50 (green/hartman beans) doxycycline Allergy Intermediate Hives, Verified 04/17/22 11:50 vomiting Iodinated Contrast Media Allergy Intermediate Large Verified 04/17/22 11:50 hives, vomiting, "feeling hot" iodine Allergy Intermediate Hives, Verified 04/17/22 11:50 vomiting latex Allergy Intermediate Rash Verified 04/17/22 11:50 loperamide Allergy Intermediate Hives, Verified 04/17/22 11:50 vomiting meperidine Allergy Intermediate Hives, Verified 04/17/22 11:50 vomiting strawberry Allergy Intermediate Hives Verified 04/17/22 11:50 tomato Allergy Intermediate Hives Verified 04/17/22 11:50 prochlorperazine Allergy Mild N/V, Verified 04/17/22 11:50 itchiness Consultations 04/17/22 21:20 ED Decision to Admit Stat Ordered Studies Laboratory Results WBC 10.75 K/ul (4.8-10.8) 04/18/22 06:18 RBC 4.81 M/uL (3.93-5.22) 04/18/22 06:18 Hgb 14.4 g/dl (12.0-16.0) 04/18/22 06:18 Hct 42.5 % (34.1-44.9) 04/18/22 06:18 MCV 88.4 fL (80.0-100.0) 04/18/22 06:18 MCH 29.9 pg (25.0-34.0) 04/18/22 06:18 MCHC 33.9 g/dL (32.0-36.0) 04/18/22 06:18 RDW Std Deviation 43.8 fL (36.4-46.3) 04/18/22 06:18 RDW Coeff of Jose Luis 13.6 % (11.5-14.5) 04/18/22 06:18 Plt Count 340 K/uL (130-400) 04/18/22 06:18 MPV 10.1 fL (9.4-12.3) 04/18/22 06:18 Immature Gran % (Auto) 0.5 % 04/18/22 06:18 Neut % (Auto) 70.9 % 04/18/22 06:18 Lymph % (Auto) 20.4 % 04/18/22 06:18 [place] % (Auto) 7.7 % 04/18/22 06:18 Eos % (Auto) 0.0 % 04/18/22 06:18 Baso % (Auto) 0.5 % 04/18/22 06:18 Neut # (Auto) 7.63 K/uL (1.4-6.5) H 04/18/22 06:18 Lymph # (Auto) 2.19 K/uL (1.2-3.4) 04/18/22 06:18 [place] # (Auto) 0.83 K/uL (0.24-0.82) H 04/18/22 06:18 Eos # (Auto) 0.00 K/uL (0-0.50) 04/18/22 06:18 Baso # (Auto) 0.05 K/uL (0-0.2) 04/18/22 06:18 Immature Gran # (Auto) 0.05 K/uL (0.00-0.02) H 04/18/22 06:18 Sodium 136 mmol/L (136-145) 04/18/22 06:18 Potassium 3.8 mmol/L (3.5-5.1) 04/18/22 06:18 Chloride 100 mmol/L (98-107) 04/18/22 06:18 Carbon Dioxide 24 mmol/L (21-32) 04/18/22 06:18 Anion Gap 12 (3-11) H 04/18/22 06:18 BUN 11 mg/dl (6-23) 04/18/22 06:18 Creatinine 0.81 mg/dl (0.6-1.2) 04/18/22 06:18 Est Cr Clr Drug Dosing 78.5 ml/min 04/18/22 06:18 Est GFR ( Amer) 94.1 ml/min 04/18/22 06:18 Est GFR (Non-Af Amer) 81.2 ml/min 04/18/22 06:18 BUN/Creatinine Ratio 13.6 (10-20) 04/18/22 06:18 Glucose 126 mg/dl (70-99(Fasting)) H 04/18/22 06:18 POC Glucose 155 mg/dl (70-99) H 04/18/22 00:32 Calcium 9.6 mg/dl (8.5-10.1) 04/18/22 06:18 Phosphorus 2.8 mg/dl (2.5-4.9) 04/17/22 18:00 Magnesium 1.4 mg/dl (1.7-2.4) L 04/17/22 18:00 Total Bilirubin 0.3 mg/dl (0.2-1.0) 04/17/22 18:00 Direct Bilirubin 0.1 mg/dl (0-0.2) 04/17/22 18:00 AST 27 U/L (13-39) 04/17/22 18:00 ALT 23 U/L (7-52) 04/17/22 18:00 Alkaline Phosphatase 86 U/L (34-104) 04/17/22 18:00 Troponin I High Sens 13.8 pg/ml (0-14) 04/17/22 18:00 Total Protein 7.5 gm/dl (6.0-8.3) 04/17/22 18:00 Albumin 4.5 gm/dl (3.4-5.0) 04/17/22 18:00 Globulin 3.0 gm/dl (2.5-4.0) 04/17/22 18:00 Albumin/Globulin Ratio 1.5 (0.9-2) 04/17/22 18:00 Lipase 25 U/L (11-82) 04/17/22 18:00 TSH 3.163 uIu/ml (0.300-4.500) 04/17/22 18:00 Urine Color Yellow 04/18/22 01:20 Urine Appearance Clear (Clear) 04/18/22 01:20 Urine pH 7.0 (4.5-7.5) 04/18/22 01:20 Ur Specific [place] 1.010 (1.000-1.030) 04/18/22 01:20 Urine Protein 3+ (Negative) H 04/18/22 01:20 Urine Glucose (UA) Negative (Negative) 04/18/22 01:20 Urine Ketones Negative (Negative) 04/18/22 01:20 Urine Blood 2+ (Negative) H 04/18/22 01:20 Urine Nitrite Negative (Negative) 04/18/22 01:20 Urine Bilirubin Negative (Negative) 04/18/22 01:20 Urine Urobilinogen Negative (Negative) 04/18/22 01:20 Ur Leukocyte Esterase Trace (Negative) H 04/18/22 01:20 Urine WBC (Auto) 10-30 /hpf (0-5) H 04/18/22 01:20 Urine RBC (Auto) 10-30 /hpf (0-4) H 04/18/22 01:20 U Hyaline Cast (Auto) 1-5 /lpf (0-5) 04/18/22 01:20 U Epithel Cells (Auto) >30 /lpf (0-5) H 04/18/22 01:20 Urine Bacteria (Auto) 4+ (Negative) H 04/18/22 01:20 SARS-CoV-2, RNA, NAAT NEGATIVE (NEGATIVE) 04/17/22 18:59 Impressions Chest X-Ray 04/17/22 17:29 XR chest 1V portable CLINICAL HISTORY: weakness TECHNIQUE: Single frontal radiograph of the chest was obtained. Comparison: Comparison is made to chest radiographs 09/14/2021 FINDINGS: Anterior cervical fixation hardware is seen. Old right rib fractures are noted. The cardiomediastinal silhouette is normal. The lungs are clear. No evidence of pleural effusion or pneumothorax. IMPRESSION: No acute chest disease. ACT 112: Negative or not required by law. Electronically signed by: Rohit Farias M.D. 04/17/2022 6:15 PM Hospital Course (1) Hypertensive urgency: Cyndie Velasquez is a 57-year-old female with past medical history of depression/anxiety, obstructive sleep apnea, cyclic vomiting syndrome, upper GI bleed, coronary artery disease, emphysema, hyperlipidemia, marijuana dependence who was taken to the emergency department after having EGD/colonoscopy done at [facility] endoscopy suite due to high BP and intractable n/v. Hypertensive urgency Initially presented with headache, nausea/vomiting and blood pressure 180s/90s She was treated with labetalol after her procedure at endoscopy suite, oral clonidine in the ED Her pressure then has been somewhat labile prior to transfer up to the floors blood pressure went from 190s over 110s to 80s over 50s - Ultimately her symptoms improved and her blood pressure stabilized. Hypertensive urgency most likely reactive secondary to nausea and anxiety. Plan: Continue home antihypertensives with clonidine, metoprolol succinate. Recommenced getting automated blood pressure cuff and keeping log of blood pressures for f/u with PCP Nausea/vomiting Received Zofran in ED Resolved Depression/anxiety Continue home venlafaxine, amitriptyline Seizure disorder Continue home Keppra CAD Continue home metoprolol succinate, clopidogrel Peripheral artery disease Patient states she is on anticoagulant therapy for this Apixaban 2.5 mg twice daily GERD Continue pantoprazole, cimetidine DVT prophylaxis: Anticoagulated on apixaban Diet: Heart healthy Dispo: Telemetry CODE STATUS: Full (2) Anxiety: (3) Cyclic vomiting syndrome: (4) Upper gastrointestinal bleed: (5) GERD (gastroesophageal reflux disease): (6) HTN (hypertension): (7) CAD (coronary artery disease): (8) Hyperlipidemia: (9) Seizure disorder: Total Time Total Time Spent Total Time Spent (In Minutes): <30 Discharge Plan Discharge Items Patient Disposition: Home - Self-Care Reason For Visit: HTN, N/V Discharge Diagnosis: Hypertension Urgency Activity: Resume your previous activity Non-emergency contact: Primary Care Provider Call non-emergency contact if: you have any medication questions Follow-up/Referrals: Teena Killian DO [Primary Care Provider] - Diet: Regular Addtl Attending Provider Instructions: You were admitted to the hospital for an elevated blood pressure after your endoscopy yesterday.We treated you blood pressure with some intravenous blood pressure medications and it came down. Most likely your elevated blood pressure was caused by the nausea after the endoscopy. We would like for you to continue taking your blood pressure medications (clonidine and metoprolol) as you have been taking them. We would recommend you getting a automated blood pressure cuff and checking your blood pressure a few times per week at various times though out the day. Keep a log of your blood pressures and bring it with you to your follow up appointment with you primary care doctor. A discharge summary will be sent to your primary care physician to ensure continuity of care. Please bring this discharge summary with you to your next office appointment so that your provider can review it at that time. Follow-up appointments: We have requested a follow-up appointment with your primary care physician within one week of discharge. Please call their office if you do not hear from them. To Do: - continue taking clonidine and metoprolol - get a blood pressure cuff and keep a log of your blood pressures - follow up with your PCP Pending Studies at Discharge: No Stand-Alone Forms: My [facility] Medications and DC Order Prescriptions: Continued levetiracetam [Keppra] 1,000 mg tablet 1,000 mg PO BID Qty: 180 1RF amitriptyline 25 mg tablet 25 mg PO HS Qty: 90 1RF ondansetron HCl 4 mg tablet 4 mg PO Q8H PRN (Reason: nausea and vomiting) Qty: 20 0RF clonidine HCl 0.1 mg tablet 0.1 mg PO BID 90 Days Qty: 180 1RF Rx Instructions: Take if systolic BP is >160, diastolic BP >100- TAKE UP TO FOUR TIMES DAILY IF NEEDED PER PT venlafaxine 150 mg capsule,extended release 24hr 150 mg PO QAM Qty: 90 1RF pantoprazole 40 mg tablet,delayed release (DR/EC) 40 mg PO BID Qty: 180 2RF multivitamin Tablet 1 tab PO QAM metoprolol succinate 100 mg tablet extended release 24 hr 50 mg PO DAILY rosuvastatin [Crestor] 40 mg Tablet 40 mg PO HS clopidogrel [Plavix] 75 mg tablet 75 mg PO HS Label Comments: PER DR PERSON OFFICE, TOLD TO STOP 7 DAYS BEFORE PROCEDURE cimetidine 200 mg tablet 200 mg PO UD PRN (Reason: indigestion) cholecalciferol (vitamin D3) 50 mcg (2,000 unit) tablet 2,000 unit PO HS apixaban 2.5 mg tablet 2.5 mg PO BID Discharge Orders: Discharge Order (Routine); Ordered 04/18/22 Ordered By: Ayanna Beth Admission Data Admit Date/Time: 04/17/22 22:40 Attending Provider: Souleymane Lobato Admit Provider: Zafar Lara Primary Care Provider: Teena Killian Other Providers: Aron Drake Other Interventions: Discharge Summary Assessment (RN) Last Done: 04/18/22 12:31 Supervising Physician Co-Signing Physician Notes I personally examined the patient and verified all real points of history and exam, discussed case, and agree with decision making with Dr Beth. Feeling better and wants to go home. Has a blood pressure cuff. Notes that stress has been under much better control recently. Vitals noted, in general she is awake and alert pleasant no distress. HEENT normocephalic atraumatic mucous membranes moist. Breathing unlabored no accessory muscle use good effort. Skin shows no rashes no pallor or icterus. Neuro without focal deficits. Elevated blood pressurenow improved. Likely reactive. Stable for home. Med regimen to be the same. Follow blood pressure at home closely, and PCP can titrate blood pressure medications if she is running high in a chronic setting. However, given that her blood pressures have quickly normalized, I definitely think the risk of escalating medications at this time would strongly outweigh the benefit. Resident Activity Tracking Resident Involvement: Resident Care Provided Care Provided: Adult Hospital Medicine
[2022-04-18 11:52] VITALS: BP 106/71; PULSE 84; TEMP 98.1; O2SAT 94
--- NOTE | 2022-04-18 17:42 | Billing Data ---
Date of Service April 18, 2022 Coding Level of Care Code D/C DAY MANAGEMENT <30 MINS
[2022-04-18] MEDS ORDERED: AMITRIPTYLINE HCL 25 MG TAB PO SCH (21:00)
[2022-04-18] MEDS ORDERED: ROSUVASTATIN CALCIUM 20 MG TAB PO SCH (21:00)
[2022-04-18] MEDS ORDERED: CHOLECALCIFEROL 1,000 UNITS 25 MCG TAB PO SCH (21:00)
[2022-04-18] MEDS ORDERED: CLOPIDOGREL BISULFATE 75 MG TAB PO SCH (21:00)
--- NOTE | 2022-04-18 21:18 | Electrocardiogram Report ---
Test Reason : Blood Pressure : / mmHG Vent. Rate : 078 BPM Atrial Rate : 085 BPM P-R Int : 200 ms QRS Dur : 084 ms QT Int : 420 ms P-R-T Axes : 062 018 068 degrees QTc Int : 478 ms Sinus rhythm with marked sinus arrhythmia Otherwise normal ECG When compared with ECG of 14-SEP-2021 11:16, No significant change was found Confirmed by Quinten Sanchez ([id number]) on 04/18/2022 9:18:16 PM Referred By: REFERRED SELF Confirmed By:Quinten Sanchez
--- NOTE | 2022-04-18 22:56 | Billing Data ---
Date of Service April 18, 2022 Coding Level of Care Code 98808 Initial Inpt Care Lvl 3
== END 2022-04-18 12:59 | disposition home or self-care (01) ==
LOC: ED 15:53 → 2S 22:40 → INTOOBSV 22:40 → SUATTDRO 22:40 → 2S 23:45
DX: Z79.01 Long term (current) use of anticoagulants; R56.9 Unspecified convulsions; I25.10 Atherosclerotic heart disease of native coronary artery without angina pectoris; Z79.899 Other long term (current) drug therapy; I16.0 Hypertensive urgency; K21.9 Gastro-esophageal reflux disease without esophagitis; Z88.1 Allergy status to other antibiotic agents; Z79.02 Long term (current) use of antithrombotics/antiplatelets; I73.9 Peripheral vascular disease, unspecified; R11.15 Cyclical vomiting syndrome unrelated to migraine; Z91.040 Latex allergy status; Z91.041 Radiographic dye allergy status; E78.5 Hyperlipidemia, unspecified; Z88.8 Allergy status to other drugs, medicaments and biological substances

== ENCOUNTER 2022-09-25 06:41 | Inpatient (IN) ==
--- NOTE | 2022-09-12 11:09 | PAT Medication Instructions ---
Medication Instructions Date of Service September 12, 2022 Home Medications Medication Instructions Recorded ondansetron HCl 4 mg tablet 4 mg PO Q8H PRN nausea and 12/18/21 vomiting #20 tabs pantoprazole 40 mg tablet,delayed 40 mg PO BID #180 tabs 03/27/22 release apixaban 2.5 mg tablet 2.5 mg PO BID #180 tabs 05/08/22 levetiracetam 1,000 mg tablet 1,000 mg PO BID #180 tabs 05/27/22 (Keppra) amitriptyline 25 mg tablet 25 mg PO HS #90 tabs 05/31/22 clopidogrel 75 mg tablet (Plavix) 75 mg PO HS #90 tabs 06/17/22 cholecalciferol (vitamin D3) 50 2,000 unit PO HS #90 tabs 07/03/22 mcg (2,000 unit) tablet ipratropium 20 mcg-albuterol 100 1 puff inhalation Q6H #4 grams 07/03/22 mcg/actuation mist for inhalation (Combivent Respimat) venlafaxine 150 mg 150 mg PO QAM #90 caps 07/03/22 capsule,extended release 24 hr Auto Titrating CPAP #1 ea 07/15/22 clonidine HCl 0.1 mg tablet 0.1 mg PO BID 3 months #180 tabs 08/20/22 multivitamin 1 tab PO QAM rosuvastatin 40 mg tablet (Crestor) 40 mg PO HS ondansetron HCl 4 mg tablet 4 mg PO Q8H PRN nausea and vomiting pantoprazole 40 mg tablet,delayed release 40 mg PO BID cimetidine 200 mg tablet 200 mg PO UD PRN indigestion apixaban 2.5 mg tablet 2.5 mg PO BID levetiracetam 1,000 mg tablet (Keppra) 1,000 mg PO BID amitriptyline 25 mg tablet 25 mg PO HS clopidogrel 75 mg tablet (Plavix) 75 mg PO HS cholecalciferol (vitamin D3) 50 mcg (2,000 unit) tablet 2,000 unit PO HS ipratropium 20 mcg-albuterol 100 mcg/actuation mist for inhalation (Combivent Respimat) 1 puff inhalation Q6H venlafaxine 150 mg capsule,extended release 24 hr 150 mg PO QAM clonidine HCl 0.1 mg tablet 0.1 mg PO BID Medical Marijuana 1 dose PO DIRECTED PRN Pain metoprolol succinate 100 mg tablet,extended release 24 hr 50 mg PO QAM ASK your prescriber and surgeon apixaban 2.5 mg tablet 2.5 mg PO BID amitriptyline 25 mg tablet 25 mg PO HS clopidogrel 75 mg tablet (Plavix) 75 mg PO HS DO NOT take the morning of surgery multivitamin 1 tab PO QAM Medical Marijuana 1 dose PO DIRECTED PRN Pain Take morning of surgery With a small sip of water, OTHERWISE NOTHING TO EAT OR DRINK AFTER MIDNIGHT: ondansetron HCl 4 mg tablet 4 mg PO Q8H PRN nausea and vomiting (if needed) pantoprazole 40 mg tablet,delayed release 40 mg PO BID cimetidine 200 mg tablet 200 mg PO UD PRN indigestion (if needed) levetiracetam 1,000 mg tablet (Keppra) 1,000 mg PO BID ipratropium 20 mcg-albuterol 100 mcg/actuation mist for inhalation (Combivent Respimat) 1 puff inhalation Q6H venlafaxine 150 mg capsule,extended release 24 hr 150 mg PO QAM clonidine HCl 0.1 mg tablet 0.1 mg PO BID metoprolol succinate 100 mg tablet,extended release 24 hr 50 mg PO QAM Take evening before surgery rosuvastatin 40 mg tablet (Crestor) 40 mg PO HS ondansetron HCl 4 mg tablet 4 mg PO Q8H PRN nausea and vomiting (if needed) pantoprazole 40 mg tablet,delayed release 40 mg PO BID cimetidine 200 mg tablet 200 mg PO UD PRN indigestion (if needed) levetiracetam 1,000 mg tablet (Keppra) 1,000 mg PO BID cholecalciferol (vitamin D3) 50 mcg (2,000 unit) tablet 2,000 unit PO HS ipratropium 20 mcg-albuterol 100 mcg/actuation mist for inhalation (Combivent Respimat) 1 puff inhalation Q6H clonidine HCl 0.1 mg tablet 0.1 mg PO BID Medical Marijuana 1 dose PO DIRECTED PRN Pain (if needed) Other Notes If you have any questions please call us at [phone] or [phone] or [phone] or [phone]
--- NOTE | 2022-09-17 10:41 | Anesthesiology Consultation ---
Date of Service September 17, 2022 Assessment & Plan (1) Encounter for pre-operative examination: - COVID screening: Per assessment on 09/17: No known COVID-19 positive contacts or current COVID-19 related symptoms. Travel screen negative. Patient vaccinated. At surgeon discretion if preop Covid testing being done. - Plavix/Eliquis instructions per surgeon/prescriber - S/P RLE thrombectomy (09/23/21): Grade 1 view, MAC#3, ETT 7.5 at [facility]. No issues noted per post-op anesthesia progress note. - Vascular office visit (09/10/22): "Had an aortofemoral bypass in the past. She has an occluded left limb. She is presenting with limiting claudication. It is limiting her daily activity. Her CT angiogram which was just performed showed an occlusion of the left iliac and left limb of her aortobifemoral bypass.. She has good pulses on the right lower extremity.. No pulses in the left foot. Her leg does not appear ischemic. She is neuro logically intact.. At this point due to her limiting claudication we recommend a femoral to femoral bypass." - PCP office visit (08/14/22): "Periods of hypertension urgency /hypertension - stable at this time.. Hospital records review in detail with patient.. Will continue clonidine patch as well as metoprolol.. Good blood pressure today.. continue low-sodium diet.. Continue to monitor blood pressure routinely at home notify office if routinely greater than 140/90.. Discussed benefits to f/u with Nephrology. She is note with [facility]- also following with Dr. Maynard. Hypokalemia - variably stable.. Repeat potassium today.. Seems consistent with periods of diarrhea as well as hospitalizations.. May utilize Metamucil or Imodium for tabatha rrhea.. ? nephro- K loss. Will get urinalysis.. Consider Nephrology f/u. Hx of PRESS Syndrome / ? MS / ongoing Dizziness Seizures- not goal.. Will follow-up with MRI of head.. It is unclear regarding MS history.. She has not followed up with Neurology, will replace a referral to Neurology for follow-up.. Unclear if hx of PRESS syndrome contributory to HTN Urgency episodes.. Dizziness not related to BPPV or inner ear, will f/u with MRI. Will cont Keppra at current dose. Cardiovascular Disease - not at goal. Pt with long known vascular stenosis which she follows with Dr. Maynard. She has upcoming appt with perposed vascular intervention. Cont current medications apixaban, plavix and rosuvastatin. Echocardiogram noted 01/14/22- EF 60-65% without wall motion or valvular disease. Hx of Cardiac Cath 2016- noting moderate nonobstructing CAD.. REBECCA- not at goal.. Start CPAP." Brain MRI was denied from insurance- per PCP workload messages, insurance felt the imaging was "not medically necessary" and they recommended patient await neurology f/u to discuss further (neurology appt scheduled 01/2023). Case reviewed with Dr. Eng- he feels patient okay to proceed with given surgery as scheduled. At anesthesiologist discretion regarding anesthetic agents to be used given questionable MS hx. - Patient acceptable risk for surgery pending most recent cardiology office visit note (Dr. Rodriguez). Chart Review Chart Review: Patient seen in Pre Admission Testing Teaching & Discussion Pre-Anesthesia Teaching/Discussion Notes: Instructed NPO after midnight before surgery,except medications with 15 cc of water. Medication instructions provided according to the PAT guidelines. History Surgery Operation Date: 10/02/22 07:30 Proposed Procedures p Right Femoral To Left Femoral Bypass - Alex Maynard MD Height/Weight Height: 5 ft 6 in Weight: 84.7 kg Allergies Allergy/AdvReac Type Severity Reaction Status Date / Time napoles Allergy Intermediate Hives Verified 09/12/22 09:11 (green/hartman beans) doxycycline Allergy Intermediate Hives, Verified 09/12/22 09:11 vomiting Iodinated Contrast Media Allergy Intermediate Large Verified 09/12/22 09:11 hives, vomiting, "feeling hot" iodine Allergy Intermediate Hives, Verified 09/12/22 09:11 vomiting latex Allergy Intermediate Rash Verified 09/12/22 09:11 loperamide Allergy Intermediate Hives, Verified 09/12/22 09:11 vomiting meperidine Allergy Intermediate Hives, Verified 09/12/22 09:11 vomiting strawberry Allergy Intermediate Hives Verified 09/12/22 09:11 tomato Allergy Intermediate Hives Verified 09/12/22 09:11 prochlorperazine Allergy Mild N/V, Verified 09/12/22 09:11 itchiness Medications Home Medications Medication Instructions Recorded Confirmed Last Taken multivitamin 1 tab PO QAM 05/15/19 02/09/23 09/13/22 08:00 rosuvastatin 40 mg tablet (Crestor) 40 mg PO HS 09/11/21 09/12/22 04/16/22 20:00 ondansetron HCl 4 mg tablet 4 mg PO Q8H PRN nausea and 12/18/21 09/12/22 Unknown vomiting #20 tabs pantoprazole 40 mg tablet,delayed 40 mg PO BID #180 tabs 03/27/22 09/12/22 04/16/22 20:00 release cimetidine 200 mg tablet 200 mg PO UD PRN indigestion 03/28/22 09/12/22 Unknown apixaban 2.5 mg tablet 2.5 mg PO BID #180 tabs 05/08/22 09/12/22 Unknown levetiracetam 1,000 mg tablet 1,000 mg PO BID #180 tabs 05/27/22 09/12/22 Unknown (Keppra) amitriptyline 25 mg tablet 25 mg PO HS #90 tabs 05/31/22 09/12/22 Unknown clopidogrel 75 mg tablet (Plavix) 75 mg PO HS #90 tabs 06/17/22 09/12/22 Unknown cholecalciferol (vitamin D3) 50 2,000 unit PO HS #90 tabs 07/03/22 09/12/22 Unknown mcg (2,000 unit) tablet ipratropium 20 mcg-albuterol 100 1 puff inhalation Q6H #4 grams 07/03/22 09/12/22 Unknown mcg/actuation mist for inhalation (Combivent Respimat) venlafaxine 150 mg 150 mg PO QAM #90 caps 07/03/22 09/12/22 Unknown capsule,extended release 24 hr Auto Titrating CPAP #1 ea 07/15/22 08/14/22 Unknown clonidine HCl 0.1 mg tablet 0.1 mg PO BID 3 months #180 tabs 08/20/22 09/12/22 Unknown Medical Marijuana 1 dose PO DIRECTED PRN Pain 09/12/22 09/12/22 Unknown metoprolol succinate 100 mg 50 mg PO QAM 09/12/22 09/12/22 Unknown tablet,extended release 24 hr Past Medical History Medical History (Updated 09/17/22 @ 10:49 by Mai Castillo) Anxiety disorder CAD (coronary artery disease) Mild-moderate non-obstructive CAD per 2017 cardiac cath Carotid stenosis < 50% stenosis B/L per US 12/16/18 Cervical disc disorder Full ROM per pt Cyclic vomiting syndrome no GI pathology on EGD, US, CT of abd/pelvis, celiac testing and GES per 04/2020 GI consult: biliary w/u and upper GI study recommended (upper GI study neg per d/c summary), cannabis cessation, continue Protonix and prn Zofran > currently controlled Depression GERD (gastroesophageal reflux disease) History of COVID-19 03/18/22, pcr [facility] [place], hospitalized day after diagnosis due to vomiting blood, discharged on 03/22/22; fever, vomiting, body chills and aches, diarrhea > resolved currently. History of diverticulitis of colon Most recent 04/2022 HTN (hypertension) h/o multiple hypertensive urgency episodes, renal artery stenosis, following with cardiology and vascular surgery Hyperlipidemia Multiple thyroid nodules NSTEMI (non-ST elevated myocardial infarction) 2016 Obstructive sleep apnea mod-severe per PCP records (does not have device) Peripheral arterial disease Bilateral external iliac artery occlusion with common femoral artery reconstitution-02/2021 aorta with runoff CTA, follows with Dr. Maynard Prediabetes diet controlled PRES (posterior reversible encephalopathy syndrome) has since caused seizures that started in 2018. following with PCP, last seizure per pt 08/2019 per PCP records Pulmonary emphysema well controlled per pt Renal artery stenosis following with Dr Maynard Seizures 2019 r/t hypertensive emergency > encephalopathy. last seizure 2019 Takotsubo cardiomyopathy 2016. Admitted [facility], full cardiac workup including cath. EF at the time 40%, now subsequent echos. Follows with Dr. Rodriguez Transient cerebrovascular ischemia Per records, pt unaware Upper gastrointestinal bleed 2021, resolved Exercise / Class Metabolic Activity III < 4 Walking/Shop/Light housework (one FS (no CP, + SOB)) Past Family History Family History Father Family history of stomach cancer Malignant neoplasm of esophagus Stomach cancer Myocardial infarction Stroke Uncle Throat cancer Family history of cancer Grandmother (Maternal) Bone cancer Breast cancer Mother No problems noted. Brother Lung cancer Other Family history of diabetes mellitus No family history of adverse response to anesthesia No pertinent family history Denies family history of Colon cancer Ovarian cancer Prostate cancer Crohn's disease IBD (inflammatory bowel disease) Past Surgical History Surgical History (Updated 09/17/22 @ 16:11 by Mai Castillo) H/O cervical spine surgery ACDF C4-7 Dr. [place]: Grade 1 view, Bojorquez#2 and ETT#7.5 atraumatic x 1. No issues per anesthesia postop progress note. ROM WNL History of anesthesia reaction Low O2 sats during colonoscopy 04/2022 at [facility] and post-procedure elevated BP. Per post-op anesthesia progress note, O2 96-100% RA and "Pt has increased BP 2ndary to abdominal pain. Pt also has nausea w/ dry heaves. Pt to have CT scan per Dr Patten." History of cardiac cath 2016 > no stents History of cataract surgery bilat History of esophagogastroduodenoscopy (EGD) History of hernia surgery right inguinal hernia repair History of hysterectomy History of ovarian cystectomy History of tooth extraction S/P aortobifemoral bypass surgery Sep 2021 [facility] Status post surgery RLE thrombectomy Past Anesthesia History No Family Hx of Anesthesia Complications and Other (during last colonoscopy Apr 2022 PR, 02 dropped to 85% during procedure, ended up being admitted for 02 and BP issues ) History of PONV No Hx of PONV and No Hx of Motion Sickness Social History Smoking Status: Former smoker tobacco type: cigarettes Do You Dip or Chew Tobacco: No Smoking End Date: 10 yrs ago Hx Alcohol Use: No Alcohol type: beer alcohol intake frequency: holidays/special occasions only Hx Substance Use: Yes substance use type: marijuana Substance Use Type Other:: medical card > flower Last Used Substance Other:: "not sure when, but recently" Review of Systems + stable HALE. Patient denies chest pain, shortness of breath, fever, chills, cough, wheezing, palpitations. Physical Exam Vital Signs VITALS BP 114/79 P 72 TEMP 98.8 SP02 96%RA RESP 18 PHYSICAL Full cervical extension range of motion. Full TMJ range of motion. TMD 3 finger breaths Mallampati Score 3 Dentition: full dentures upper/lower Lungs: clear throughout to auscultation Cardiac: regular rate and rhythm, no murmurs noted Spine: normal Carotid arteries: negative bruit Extremities: no edema Lab Results Anesthesia Preop Results Results Anesthesia Widget: WBC 6.56 K/ul (4.8-10.8) 09/17/22 Hgb 13.5 g/dl (12.0-16.0) 09/17/22 Hct 40.0 % (37.0-47.0) 09/17/22 Plt 283 K/uL (130-400) 09/17/22 Na 140 mmol/L (136-145) 09/17/22 K 4.1 mmol/L (3.5-5.1) 09/17/22 Cl 108 mmol/L (98-107) H 09/17/22 CO2 24 mmol/L (21-32) 09/17/22 BUN 13 mg/dl (6-23) 09/17/22 Creat 0.79 mg/dl (0.6-1.2) 09/17/22 Glucose Level 111 mg/dl (70-99(Fasting)) H 09/17/22 PT 10.3 Seconds (9.0-12.0) 09/17/22 PTT 27.3 Seconds (21.0-31.0) 09/17/22 INR 1.0 (0.9-1.1) 09/17/22 TSH 1.905 uIu/ml (0.300-4.500) 08/14/22 Blood Type O Positive 09/17/22 Antibody Screen NEGATIVE 09/17/22 Testing Electrocardiogram Date: 09/17/22 SR with first degree AVB at 76bpm. LAD. No significant change compared to 04/17/22 per clothing presser comparison. Chest X-Ray Date: 09/17/22 FINDINGS: PA and lateral chest radiographs are compared to study dated 04/17/2022. Correlation is made with chest CT dated 08/28/2017. The cardiomediastinal silhouette is unremarkable noting atherosclerotic calcification of the thoracic aorta. Emphysema and chronic interstitial thickening is similar to previous. The lungs and pleural spaces are otherwise clear noting mild bibasilar scarring/atelectasis. There is no pneumothorax. The skeletal structures appear osteopenic. There are chronic/healed right-sided rib fractures. Fusion hardware is noted in the lower cervical spine. IMPRESSION: Emphysematous change with no active disease in the chest. Echocardiogram Date: 01/14/22 EF 60-65%. No regional motion abnormality. No significant valvular disease. Stress Test Date: 09/12/21 Type: DSE Negative dobutamine stress echo and EKG for ischemia 90% MPHR. Rest LVEF 65%. Cardiac Catheterization Date: 06/28/17 Mild to moderate nonobstructive CAD40% mid RCA disease. LV wall motion abnormalities consistent with Takotsubo cardiomyopathy on TTE. Recommendations continue ARB and beta-blaine. Continued ASCVD risk modification. Other Testing Carotid doppler (12/16/18) Bilateral internal carotid artery stenoses less than 50% secondary to atherosclerotic disease. Bilateral antegrade flow within the vertebral arteries. Brain MRI (12/12/20) No acute intracranial abnormality is identified on today's examination. Foci of signal abnormality within the posterior parietal lobes at the vertex seen on 10/29/2020 have resolved. This likely represented PRES. Nonspecific white matter abnormality is similar to prior examination. Top differential considerations remain age advanced microangiopathic change versus a demyelinating process. CT Head/brain (07/27/22) No evidence of acute intracranial pathology. Stable ill-defined regions of hypoattenuation within the periventricular and subcortical white matter, again most likely related to chronic microangiopathic ischemic changes. CTA Abd/Pelvis with B/L LE runoff (08/20/22) Advanced atherosclerotic change with evidence of previous aortobiiliac bypass grafting. The right iliac bypass is widely patent. The left iliac bypass is completely occluded. There is high-grade focal stenosis with near complete occlusion of the proximal right superficial femoral artery. Flow in the left lower extremity is reconstituted at the level of the common femoral artery. There is three-vessel runoff seen bilaterally. Cardiomegaly. Colonic diverticulosis without CT evidence of acute diverticulitis. Hepatomegaly and hepatic steatosis. COVID-19 Risk Screen Screening Information COVID-19 Screen Date: 09/17/22 Exposure 21 Days Family/Household +COVID Last 21 Days: No Exposure 10 Days Any COVID Exposure Last 10 Days: No Symptoms Last 10 Days Experienced COVID Sx Last 10 Days: No + COVID 0-90 Days COVID + in Last 0-90 Days: No
[~2022-09-25 06:41] MED LIST changes: -ASPCH81X PO; -ATOR-24 PO; -CLON0.1D7 TOP; +LACTATED RINGER'S 1,000 ML IV SCH; -LOSA50TA54 PO; -MULT-506 PO; -ONDA4TAB10 SL; -SERT-234 PO; -TPRSR/50 PO; +ceFAZolin 2000MG 2,000 MG/15 ML SYR IV SCH
[2022-09-25] MEDS ORDERED: fentaNYL citrate 100 MCG/2 ML VIAL ONE ×3 (07:13→09:51)
--- NOTE | 2022-09-25 07:20 | History & Physical Report ---
Date of Service September 25, 2022 Assessment & Plan (1) Occlusion of left iliac artery: Plan: Patient for a right to left fem fem bypass. I have discussed the risks options and benefits of the procedure with the patient. The patient understands the risks options and benefits and agrees to the procedure. History of Present Illness Chief Complaint: Left iliac occlusion Primary Care Provider: Teena Killian DO Ms Velasquez is a 57-year-old female who had an aortobifemoral bypass in the past. She has an occluded left limb. She is presenting with limiting claudication. It is limiting her daily activity. Her CT angiogram which just was performed showed a occlusion of the left iliac and left limb of her aortobifemoral bypass. Allergies Allergy/AdvReac Type Severity Reaction Status Date / Time napoles Allergy Intermediate Hives Verified 09/25/22 07:01 (green/hartman beans) doxycycline Allergy Intermediate Hives, Verified 09/25/22 07:01 vomiting Iodinated Contrast Media Allergy Intermediate Large Verified 09/25/22 07:01 hives, vomiting, "feeling hot" iodine Allergy Intermediate Hives, Verified 09/25/22 07:01 vomiting latex Allergy Intermediate Rash Verified 09/25/22 07:01 loperamide Allergy Intermediate Hives, Verified 09/25/22 07:01 vomiting meperidine Allergy Intermediate Hives, Verified 09/25/22 07:01 vomiting strawberry Allergy Intermediate Hives Verified 09/25/22 07:01 tomato Allergy Intermediate Hives Verified 09/25/22 07:01 prochlorperazine Allergy Mild N/V, Verified 09/25/22 07:01 itchiness Home Medications Medication Instructions Recorded Confirmed Type multivitamin 1 tab PO QAM 12/16/18 09/25/22 History rosuvastatin 40 mg tablet (Crestor) 40 mg PO HS 09/11/21 09/25/22 History ondansetron HCl 4 mg tablet 4 mg PO Q8H PRN nausea and 12/18/21 09/25/22 Rx vomiting #20 tabs pantoprazole 40 mg tablet,delayed 40 mg PO BID #180 tabs 03/27/22 09/25/22 Rx release cimetidine 200 mg tablet 200 mg PO UD PRN indigestion 03/28/22 09/25/22 History apixaban 2.5 mg tablet 2.5 mg PO BID #180 tabs 05/08/22 09/25/22 Rx levetiracetam 1,000 mg tablet 1,000 mg PO BID #180 tabs 05/27/22 09/25/22 Rx (Keppra) amitriptyline 25 mg tablet 25 mg PO HS #90 tabs 05/31/22 09/25/22 Rx clopidogrel 75 mg tablet (Plavix) 75 mg PO HS #90 tabs 06/17/22 09/25/22 Rx cholecalciferol (vitamin D3) 50 2,000 unit PO HS #90 tabs 07/03/22 09/25/22 Rx mcg (2,000 unit) tablet ipratropium 20 mcg-albuterol 100 1 puff inhalation Q6H #4 grams 07/03/22 09/25/22 Rx mcg/actuation mist for inhalation (Combivent Respimat) venlafaxine 150 mg 150 mg PO QAM #90 caps 07/03/22 09/25/22 Rx capsule,extended release 24 hr Auto Titrating CPAP #1 ea 07/15/22 08/14/22 Rx clonidine HCl 0.1 mg tablet 0.1 mg PO BID 3 months #180 tabs 08/20/22 09/25/22 Rx Medical Marijuana 1 dose PO DIRECTED PRN Pain 09/12/22 09/25/22 History metoprolol succinate 100 mg 50 mg PO QAM 09/12/22 09/25/22 History tablet,extended release 24 hr losartan 50 mg tablet 50 mg PO DAILY 09/25/22 09/25/22 History Past Med/Surg History Medical History Anxiety disorder CAD (coronary artery disease) Mild-moderate non-obstructive CAD per 2017 cardiac cath Cannabinoid hyperemesis syndrome Carotid stenosis < 50% stenosis B/L per US 12/16/18 Cervical disc disorder Full ROM per pt Cyclic vomiting syndrome Cyclic vomiting syndrome no GI pathology on EGD, US, CT of abd/pelvis, celiac testing and GES per 04/2020 GI consult: biliary w/u and upper GI study recommended (upper GI study neg per d/c summary), cannabis cessation, continue Protonix and prn Zofran > currently controlled Depression GERD (gastroesophageal reflux disease) History of COVID-19 03/18/22, pcr [facility] [place], hospitalized day after diagnosis due to vomiting blood, discharged on 03/22/22; fever, vomiting, body chills and aches, diarrhea > resolved currently. History of diverticulitis of colon Most recent 04/2022 HTN (hypertension) h/o multiple hypertensive urgency episodes, renal artery stenosis, following with cardiology and vascular surgery Hypercalcemia Hyperlipidemia Ischemia of right lower extremity Multiple thyroid nodules NSTEMI (non-ST elevated myocardial infarction) 2016 Obstructive sleep apnea mod-severe per PCP records (does not have device) Peripheral arterial disease Bilateral external iliac artery occlusion with common femoral artery reconstitution-02/2021 aorta with runoff CTA, follows with Dr. Maynard Posterior reversible encephalopathy syndrome (PRES) Prediabetes diet controlled PRES (posterior reversible encephalopathy syndrome) has since caused seizures that started in 2018. following with PCP, last seizure per pt 08/2019 per PCP records Proteinuria Pulmonary emphysema well controlled per pt Renal artery stenosis following with Dr Maynard Seizure Seizures 2018 r/t hypertensive emergency > encephalopathy. last seizure 2019 Takotsubo cardiomyopathy 2016. Admitted [facility], full cardiac workup including cath. EF at the time 40%, now subsequent echos. Follows with Dr. Rodriguez Transient cerebrovascular ischemia Per records, pt unaware Upper gastrointestinal bleed 2021, resolved Surgical History H/O cervical spine surgery ACDF C4-7 Dr. [place]: Grade 1 view, Bojorquez#2 and ETT#7.5 atraumatic x 1. No issues per anesthesia postop progress note. ROM WNL History of anesthesia reaction Low O2 sats during colonoscopy 04/2022 at [facility] and post-procedure elevated BP. Per post-op anesthesia progress note, O2 96-100% RA and "Pt has increased BP 2ndary to abdominal pain. Pt also has nausea w/ dry heaves. Pt to have CT scan per Dr Patten." History of cardiac cath 2017 > no stents History of cataract surgery bilat History of esophagogastroduodenoscopy (EGD) History of hernia surgery right inguinal hernia repair History of hysterectomy History of ovarian cystectomy History of tooth extraction S/P aortobifemoral bypass surgery Sep 2021 [facility] Status post surgery RLE thrombectomy Family History Father Family history of stomach cancer Malignant neoplasm of esophagus Stomach cancer Myocardial infarction Stroke Uncle Throat cancer Family history of cancer FAMILY HISTORY OF CANCER - UNCLE - VOC[place]DS FAMILY HISTORY OF CANCER - AUNT - ? KIND Grandmother (Maternal) Bone cancer Breast cancer Mother No problems noted. Brother Lung cancer Other Family history of diabetes mellitus No family history of adverse response to anesthesia No pertinent family history Denies family history of Colon cancer Ovarian cancer Prostate cancer Crohn's disease IBD (inflammatory bowel disease) Social History Smoking Status: Former smoker packs per day: 2; Smoking End Date: 10 yrs ago; Second Hand Exposure: No; Do You Dip or Chew Tobacco: No; Tobacco Cessation Education Requested by Patient: No Hx Alcohol Use: No Hx Substance Use: Yes Last Used Substance Other:: "not sure when, but recently" Substance Use Type Other:: medical card > flower Preferred Language: Setswana Communication Ability: Effective Visual Impairment: No Limitations Hearing Ability: Normal Superintendent Drilling Required: No Beliefs That Will Affect Care: None marital status: Current Living Situation: Significant Other Current Living Situation Comment: [place] current occupational status: employed 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 Other Information That Helps Us Care for You: No Feels Safe at Home: Yes Safety Concerns: Feels Safe At This Time Childhood Exposure to Second-Hand Smoke: Yes caffeine: Yes (1 cup of coffee) during the past year weight has: other Dental Care, Regularly: No Physical Activity Frequency: Daily Physical Activity Frequency Comment: walking Seatbelt Use: always Sunscreen Use: Yes Assistive Devices: Denture - Upper and Denture - Lower Review of Systems All systems reviewed & are unremarkable except as noted in HPI & below Physical Exam Constitutional: WD/WN, vitals as above Respiratory: normal respiratory effort, lungs clear to auscultation Cardiovascular: RRR, no murmur, no edema Vessels: femoral pulses present; + posterior tibial pulses abnormal (none on left) and + dorsalis pedis pulses abnormal (none on left) Extremities: normal capillary refill Gastrointestinal (Abdomen): normal bowel sounds, soft, nontender, no hepatosplenomegaly Musculoskeletal: no cyanosis or clubbing, extremities motor strength 5/5 Neurologic: CN's II-XI intact bilaterally and moves all extremities Psychiatric: Orientation: alert and oriented x 3 Results & Data ([facility]) Vital Signs (Past 12 Hours) Vital Signs Temp Pulse Resp BP Pulse Ox O2 Del Method 09/25/22 07:10 36.7 C 73 18 120/87 96 Room Air
[2022-09-25] MEDS ORDERED: MIDAZOLAM HCL 1 MG/ML 2ML VIAL ONE (07:23)
[2022-09-25] MEDS ORDERED: fentaNYL citrate 100 MCG/2 ML VIAL IV PRN (07:24)
[2022-09-25] MEDS ORDERED: ePHEDrine sulfate 50 MG/ML AMP IV PRN (07:24)
[2022-09-25] MEDS ORDERED: ATROPINE SULFATE 0.1 MG/ML 10ML SYR IV PRN (07:24)
[2022-09-25] MEDS ORDERED: ONDANSETRON INJ 2 MG/ML 2 ML VIAL IV PRN (07:24)
[2022-09-25] MEDS ORDERED: BUPIVACAINE/EPINEPHRINE 0.5% MPF 1:200,000 30 ML VIAL ONE (07:54)
[2022-09-25] MEDS ORDERED: HEPARIN (PORCINE) 1000 UNIT/ML 10 ML (CATH LAB USE ONLY) ONE (07:54)
[2022-09-25] MEDS ORDERED: ceFAZolin 330 MG/ML 1 GM VIAL ONE (07:55)
[2022-09-25] MEDS ORDERED: LIDOCAINE 1% LOCAL 20 ML VIAL ONE (07:55)
[2022-09-25] MEDS ORDERED: GELATIN SPONGE SZ 100 ONE (07:55)
[2022-09-25] MEDS ORDERED: THROMBIN FOR SOLN 20000 UNIT KIT ONE (07:56)
[2022-09-25] MEDS ORDERED: ROCURONIUM BROMIDE 10 MG/ML 5 ML VIAL IV ONE ×2 (09:46→09:47)
[2022-09-25] MEDS ORDERED: HEPARIN SOD (PORCINE) 1000 UNIT/ML ONE ×2 (09:46→11:33)
[2022-09-25] MEDS ORDERED: DEXAMETHASONE SOD INJ 4 MG/ML VIAL ONE (09:46)
[2022-09-25] MEDS ORDERED: PROPOFOL IV EMULSION 10 MG/ML 20 ML VIAL IV ONE (09:46)
[2022-09-25] MEDS ORDERED: ONDANSETRON INJ 2 MG/ML 2 ML VIAL ONE (09:46)
[2022-09-25] MEDS ORDERED: ePHEDrine sulfate 50 MG/ML SYR ONE (09:46)
[2022-09-25] MEDS ORDERED: LIDOCAINE 2% MPF LOCAL 5 ML VIAL INFIL ONE (09:46)
[2022-09-25] MEDS ORDERED: PROTAMINE SULFATE 10 MG/ML 5 ML VIAL IV ONE (10:19)
[2022-09-25] MEDS ORDERED: SUGAMMADEX SODIUM 200 MG/2 ML VIAL IV ONE (10:22)
--- NOTE | 2022-09-25 10:54 | Operative Report ---
Post Operative Report Pre & Post Diagnosis Operation Date: 09/25/22 08:50 Pre-Op Diagnosis: Left Iliac Occlusion Post-Op Diagnosis: Left Iliac Occlusion I identified the patient and participated in the time-out.: Yes Procedure Operation Date: 09/25/22 08:50 Actual Procedures p Right Femoral To Left Femoral Bypass(Not Applicable) - Alex Manyard MD Surgeon Alex Maynard MD Business Operations Manager [employer],PAC Estimated Blood Loss 150 Findings Consistent with Post-Op Diagnosis Specimens none Anesthesia Type General Complications none Disposition Accompanied Patient To Recovery: No Disposition: Recovery Room Indications This is a 57-year-old female who had a aortobifemoral bypass done in the past. She has a known occlusion of her left limb of the bypass. Her claudication has gotten worse and is now limiting her daily activity. A right to left femorofemoral bypass was recommended. I have discussed the risks options and benefits of the procedure with the patient. The patient understands the risks options and benefits and agrees to the procedure. Description of Procedure The patient was taken the operating room placed supine position. After general anesthesia was accomplished both groins were prepped and draped in a sterile manner. A timeout was performed and the patient was identified. Longitudinal incision was made in the right groin in the line of the old incision. Dissection was carried down to where the limit of the aortobifemoral bypass was identified. It was isolated. The common femoral superficial femoral profundofemoral arteries were also isolated. Incision was then made in the left side. We then carried this incision down the left groin to where the left limb was identified. It was slung and tied with a 2-0 silk. We then dissected free the rest of the anastomosis and the first few centimeters of the superficial femoral artery and the origins of the profundofemoral artery. A subcutaneous tunnel was then made suprapubically and an 8 mm ringed PTFE graft was passed through the tunnel. Patient was heparinized at that time. After adequate position was accomplished the right limb of the graft was clamped. The profunda and superficial femoral arteries were clamped. We started arteriotomy right at the end of the suture line from the previous anastomosis and carried downward onto the superficial femoral artery. There is some mild narrowing present at the origin which was within the [place] of the new graft. The lumen itself from the previous graft and the common femoral artery was wide open. We beveled the cross femoral bypass graft and performed an end-to-side anastomosis using a 5-0 Prolene suture in the usual vascular fashion. Once this was completed the graft was flushed out through the other side. Clamps placed on the graft and the circulation left open to the right leg. There was good flow beyond the anastomosis in the superficial femoral artery. On the left side the [place] of the old graft in the proximal superficial femoral artery was then opened with a longitudinal arteriotomy. There was some hyperplastic scar tissue which was removed from the origin of the profunda. The femoral bypass graft was then beveled in appropriate fashion and cut the appropriate length. End-to-side anastomosis was then accomplished again with a 5-0 Prolene suture in usual vascular fashion. Prior to completing this closure backbleeding and forward bleeding was allowed to occur. The final few sutures were placed and securely tied. Clamps and removed. Excellent flow was seen through the femoral bypass. There is good Doppler signals heard distally. Adequate stasis was then obtained. Patient was given protamine. We used Gelfoam and Surgicel and thrombin to control the needle hole bleeding. Once this was done on both sides the wounds were closed in the usual fashion using a running 2-0 Vicryl suture for the femoral sheath level. 3-0 Vicryl suture was used for the subcutaneous layers and heather were used on the skin. Prevena dressings were then placed on both groins.The patient left the operation room in satisfactory condition and tolerated the procedure well. All needle and sponge counts were correct at the end of the procedure. Nat Day Pac assisted due to lack of resident availability and was necessary for positioning, draping, retraction, wound closure deep layers, subcutaneous tissue, and skin closure and was necessary for assisting with the case. I attest to the content of the Intraoperative Record and any orders documented therein. Any exceptions are noted below.
[2022-09-25] MEDS ORDERED: HYDROmorphone INJ 2 MG/ML SYR/VIAL ONE (11:05)
[2022-09-25 12:06] LABS: Basophils # (auto) 0.09 K/uL (0-0.2); Basophils % (auto) 0.9 %; Eosinophils # (auto) 0.08 K/uL (0-0.50); Eosinophils % (auto) 0.8 %; Hemoglobin 11.5 g/dl (12.0-16.0); Immature Granulocytes # (auto) 0.04 K/uL (0.01-0.20); Immature Granulocytes % (auto) 0.4 %; Lymphocytes # (auto) 1.25 K/uL (1.2-3.4); Mean Corpuscular Hemoglobin 30.7 pg (25.0-34.0); Mean Corpuscular Hgb Conc 32.9 g/dL (32.0-36.0); Mean Corpuscular Volume 93.6 fL (80.0-100.0); Mean Platelet Volume 9.8 fL (9.4-12.4); Monocytes # (auto) 0.15 K/uL (0.11-0.59); Monocytes % (auto) 1.4 %; Neutrophils # (auto) 8.84 K/uL (1.40-6.50); Neutrophils % (auto) 84.5 %; Platelet Count 279 K/uL (130-400); RDW Coefficient of Variation 13.2 % (11.5-14.5); RDW Standard Deviation 45.7 fL (36.4-46.3); Red Blood Count 3.74 M/uL (4.20-5.40); White Blood Count 10.45 K/ul (4.8-10.8)
--- NOTE | 2022-09-25 12:30 | Anesthesiology Progress Note ---
Date of Service September 25, 2022 Anesthesia Post Procedure Vital Signs Vital Signs: Temp Pulse Pulse Resp BP Pulse Ox O2 Del Method 09/25/22 11:40 84 16 113/90 97 Oxymask 09/25/22 12:10 98.1 F 80 17 129/95 97 Nasal Cannula 09/25/22 12:00 98.1 F 84 17 124/95 96 Nasal Cannula 09/25/22 11:50 98.1 F 83 17 145/83 H 97 Oxymask 09/25/22 11:30 82 16 109/75 97 Oxymask 09/25/22 11:20 97.3 F L 77 12 112/68 97 Oxymask 09/25/22 07:10 98.1 F 73 18 120/87 96 Room Air O2 Flow Rate 09/25/22 11:40 7 09/25/22 12:10 3 09/25/22 12:00 3 09/25/22 11:50 4 09/25/22 11:30 7 09/25/22 11:20 7 09/25/22 07:10 Transfer of Care Handoff Completed per policy Notes Mental Status: alert / awake / arousable and participated in evaluation Patient Amnestic to Procedure: Yes Nausea / Vomiting: adequately controlled Pain: adequately controlled Airway Patency, RR, SpO2: stable & adequate BP & HR: stable & adequate Hydration State: stable & adequate Anesthetic Complications: no major complications apparent and Pt Satisfied with anesthetic care
[2022-09-25] MEDS ORDERED: IPRATROPIUM BROMIDE/ALBUTEROL respimat INH INH SCH (12:39)
[2022-09-25] MEDS ORDERED: FAMOTIDINE 20 MG TAB PO PRN (12:49)
[2022-09-25] MEDS ORDERED: ONDANSETRON 4 MG OD TAB PO PRN (12:53)
[2022-09-25] MEDS ORDERED: MEDICAL MARIJUANA PO PRN (12:58)
[2022-09-25] MEDS: MoRPHine SULFATE 4 MG/ML 1 ML CARP\\VIAL IV PRN ×2 (13:12→19:49)
[2022-09-25] MEDS: oxyCODONE/ACETAMINOPHEN 5mg/325mg TAB PO PRN ×2 (13:12→22:33)
[2022-09-25] MEDS: ONDANSETRON INJ 2 MG/ML 2 ML VIAL IV PRN ×2 (13:14→21:44)
[2022-09-25] MEDS: D5W AND 1/2NSS 1,000 ML IV SCH ×2 (13:22→20:04)
[2022-09-25] MEDS: ceFAZolin 2000MG 2,000 MG/15 ML SYR IV SCH ×2 (13:28→21:03)
--- NOTE | 2022-09-25 13:35 | Critical Care Consultation ---
Date of Consultation September 25, 2022 Assessment & Plan (1) Occlusion of left iliac artery: Patient status post fem fem bypass. Defer antiplatelet therapy and antihypertensive regimen to vascular surgery. Monitor neurovascular checks frequently. Monitor for postop ileus. ICU team will continue monitoring the patient while the patient remains under ICU status. (2) Postoperative nausea: We will give an additional dose of Zofran. Patient has a history of cyclic vomiting. (3) CAD (coronary artery disease): Patient ordered Eliquis and Plavix per vascular surgeon. Plan Thank you for the consultation. Please call with questions. History of Present Illness Reason for Consultation: Postop monitoring Attending Physician: Alex Maynard MD History of Present Illness 57-year-old female with a history of left iliac artery occlusion who presents today for a right to left femoral to femoral bypass which was performed by Dr. Maynard. Patient has a history of cervical spine fusion, peripheral artery disease, GERD, anxiety, coronary artery disease status post cath in 2017, COPD, hypertensive encephalopathy and chart reviewed history of GI bleed. Postoperatively, the patient has been suffering from some nausea. She received a dose of Zofran, but continues to have nausea with some bilious vomiting. Chart reviewed. Approximately 150 mL of blood loss per op note. She is also complaining of some lower abdominal pain. Dr. Maynard is aware. Allergies Allergy/AdvReac Type Severity Reaction Status Date / Time napoles Allergy Intermediate Hives Verified 09/25/22 07:01 (green/hartman beans) doxycycline Allergy Intermediate Hives, Verified 09/25/22 07:01 vomiting Iodinated Contrast Media Allergy Intermediate Large Verified 09/25/22 07:01 hives, vomiting, "feeling hot" iodine Allergy Intermediate Hives, Verified 09/25/22 07:01 vomiting latex Allergy Intermediate Rash Verified 09/25/22 07:01 loperamide Allergy Intermediate Hives, Verified 09/25/22 07:01 vomiting meperidine Allergy Intermediate Hives, Verified 09/25/22 07:01 vomiting strawberry Allergy Intermediate Hives Verified 09/25/22 07:01 tomato Allergy Intermediate Hives Verified 09/25/22 07:01 prochlorperazine Allergy Mild N/V, Verified 09/25/22 07:01 itchiness Home Medications Medication Instructions Recorded Confirmed Type multivitamin 1 tab PO QAM 12/16/18 09/25/22 History rosuvastatin 40 mg tablet (Crestor) 40 mg PO HS 09/11/21 09/25/22 History ondansetron HCl 4 mg tablet 4 mg PO Q8H PRN nausea and 12/18/21 09/25/22 Rx vomiting #20 tabs pantoprazole 40 mg tablet,delayed 40 mg PO BID #180 tabs 03/27/22 09/25/22 Rx release cimetidine 200 mg tablet 200 mg PO UD PRN indigestion 03/28/22 09/25/22 History apixaban 2.5 mg tablet 2.5 mg PO BID #180 tabs 05/08/22 09/25/22 Rx levetiracetam 1,000 mg tablet 1,000 mg PO BID #180 tabs 05/27/22 09/25/22 Rx (Keppra) amitriptyline 25 mg tablet 25 mg PO HS #90 tabs 05/31/22 09/25/22 Rx clopidogrel 75 mg tablet (Plavix) 75 mg PO HS #90 tabs 06/17/22 09/25/22 Rx cholecalciferol (vitamin D3) 50 2,000 unit PO HS #90 tabs 07/03/22 09/25/22 Rx mcg (2,000 unit) tablet ipratropium 20 mcg-albuterol 100 1 puff inhalation Q6H #4 grams 07/03/22 09/25/22 Rx mcg/actuation mist for inhalation (Combivent Respimat) venlafaxine 150 mg 150 mg PO QAM #90 caps 07/03/22 09/25/22 Rx capsule,extended release 24 hr Auto Titrating CPAP #1 ea 07/15/22 08/14/22 Rx clonidine HCl 0.1 mg tablet 0.1 mg PO BID 3 months #180 tabs 08/20/22 09/25/22 Rx Medical Marijuana 1 dose PO DIRECTED PRN Pain 09/12/22 09/25/22 History metoprolol succinate 100 mg 50 mg PO QAM 09/12/22 09/25/22 History tablet,extended release 24 hr losartan 50 mg tablet 50 mg PO DAILY 09/25/22 09/25/22 History Patient History Medical History (Updated 09/25/22 @ 13:38 by Giuseppe Amaya MD) Anxiety disorder CAD (coronary artery disease) Mild-moderate non-obstructive CAD per 2017 cardiac cath Cannabinoid hyperemesis syndrome Carotid stenosis < 50% stenosis B/L per US 12/16/18 Cervical disc disorder Full ROM per pt Cyclic vomiting syndrome Cyclic vomiting syndrome no GI pathology on EGD, US, CT of abd/pelvis, celiac testing and GES per 04/2020 GI consult: biliary w/u and upper GI study recommended (upper GI study neg per d/c summary), cannabis cessation, continue Protonix and prn Zofran > currently controlled Depression GERD (gastroesophageal reflux disease) History of COVID-19 03/18/22, pcr [facility], hospitalized day after diagnosis due to vomiting blood, discharged on 03/22/22; fever, vomiting, body chills and aches, diarrhea > resolved currently. History of diverticulitis of colon Most recent 04/2022 HTN (hypertension) h/o multiple hypertensive urgency episodes, renal artery stenosis, following with cardiology and vascular surgery Hypercalcemia Hyperlipidemia Ischemia of right lower extremity Multiple thyroid nodules NSTEMI (non-ST elevated myocardial infarction) 2016 Obstructive sleep apnea mod-severe per PCP records (does not have device) Peripheral arterial disease Bilateral external iliac artery occlusion with common femoral artery reconstitution-02/2021 aorta with runoff CTA, follows with Dr. Maynard Posterior reversible encephalopathy syndrome (PRES) Postoperative nausea Prediabetes diet controlled PRES (posterior reversible encephalopathy syndrome) has since caused seizures that started in 2018. following with PCP, last seizure per pt 08/2019 per PCP records Proteinuria Pulmonary emphysema well controlled per pt Renal artery stenosis following with Dr Maynard Seizure Seizures 2019 r/t hypertensive emergency > encephalopathy. last seizure 2019 Takotsubo cardiomyopathy 2016. Admitted [facility], full cardiac workup including cath. EF at the time 40%, now subsequent echos. Follows with Dr. Rodriguez Transient cerebrovascular ischemia Per records, pt unaware Upper gastrointestinal bleed 2021, resolved Surgical History H/O cervical spine surgery ACDF C4-7 Dr. [place]: Grade 1 view, Bojorquez#2 and ETT#7.5 atraumatic x 1. No issues per anesthesia postop progress note. ROM WNL History of anesthesia reaction Low O2 sats during colonoscopy 04/2022 at [facility] and post-procedure elevated BP. Per post-op anesthesia progress note, O2 96-100% RA and "Pt has increased BP 2ndary to abdominal pain. Pt also has nausea w/ dry heaves. Pt to have CT scan per Dr Patten." History of cardiac cath 2016 > no stents History of cataract surgery bilat History of esophagogastroduodenoscopy (EGD) History of hernia surgery right inguinal hernia repair History of hysterectomy History of ovarian cystectomy History of tooth extraction S/P aortobifemoral bypass surgery Sep 2021 [facility] Status post surgery RLE thrombectomy Family History Father Family history of stomach cancer Malignant neoplasm of esophagus Stomach cancer Myocardial infarction Stroke Uncle Throat cancer Family history of cancer FAMILY HISTORY OF CANCER - UNCLE - VOCAL CORDS FAMILY HISTORY OF CANCER - AUNT - ? KIND Grandmother (Maternal) Bone cancer Breast cancer Mother No problems noted. Brother Lung cancer Other Family history of diabetes mellitus No family history of adverse response to anesthesia No pertinent family history Denies family history of Colon cancer Ovarian cancer Prostate cancer Crohn's disease IBD (inflammatory bowel disease) Social History Smoking Status: Former smoker packs per day: 2; Smoking End Date: 10 yrs ago; Second Hand Exposure: No; Do You Dip or Chew Tobacco: No; Tobacco Cessation Education Requested by Patient: No Hx Alcohol Use: No Hx Substance Use: Yes Last Used Substance Other:: PATIENT STATES THAT SHE USES MARIJUANA 3-4X YEAR FOR PAIN Substance Use Type Other:: medical card > flower Preferred Language: Lao Communication Ability: Effective Visual Impairment: No Limitations Hearing Ability: Normal Manager Employment Required: No Beliefs That Will Affect Care: None marital status: Current Living Situation: Spouse Current Living Situation Comment: [place] current occupational status: employed current occupation: [employer] Other Information That Helps Us Care for You: No Feels Safe at Home: Yes Safety Concerns: Feels Safe At This Time Childhood Exposure to Second-Hand Smoke: Yes caffeine: Yes (1 cup of coffee) during the past year weight has: other Dental Care, Regularly: No Physical Activity Frequency: Daily Physical Activity Frequency Comment: walking Seatbelt Use: always Sunscreen Use: Yes Assistive Devices: Denture - Upper, Denture - Lower, Glasses and Oxygen - Continuous Review of Systems Review of Systems: All systems reviewed & are unremarkable except as noted in HPI & below Physical Exam Physical Exam: Constitutional: Patient appears to be of their stated age. Moderate distress due to nausea. Patient is well-developed. Eyes: Pupils are equal round and reactive to light. Conjunctivae are normal. Anicteric sclera. Ears nose, mouth and throat: Mallampati class 2. Normal posterior oropharynx. Uvula is midline. Neck: Trachea is midline. Visual inspection is normal. Respiratory: Clear to auscultation bilaterally. No use of accessory muscles. No significant clubbing noted. Cardiovascular: Regular rate and rhythm. No murmurs. No edema. Gastrointestinal: Soft. Tender around the graft site. No signs of ecchymosis. Musculoskeletal: No cyanosis. Patient is able to move all extremities. Strength is 5 out of 5 in the upper and lower extremities. Skin: No rashes, warm dry and intact. Neurologic: No obvious focal neurological deficits seen. Psychiatric: Alert and oriented x3 with a euthymic affect. Results & Data Results & Data ([facility]) Vital Signs (Past 12 Hours) Vital Signs Temp Pulse Pulse Resp BP Pulse Ox O2 Del Method 09/25/22 12:28 36.6 C 82 17 141/96 H 99 Nasal Cannula 09/25/22 11:40 84 16 113/90 97 Oxymask 09/25/22 12:10 36.7 C 80 17 129/95 97 Nasal Cannula 09/25/22 12:00 36.7 C 84 17 124/95 96 Nasal Cannula 09/25/22 11:50 36.7 C 83 17 145/83 H 97 Oxymask 09/25/22 11:30 82 16 109/75 97 Oxymask 09/25/22 11:20 36.3 C L 77 12 112/68 97 Oxymask 09/25/22 07:10 36.7 C 73 18 120/87 96 Room Air O2 Flow Rate 09/25/22 12:28 3 09/25/22 11:40 7 09/25/22 12:10 3 09/25/22 12:00 3 09/25/22 11:50 4 09/25/22 11:30 7 09/25/22 11:20 7 09/25/22 07:10 Coding Level of Care Code INP/OBS CONSULT LVL 2, 35 MIN Diagnoses Occlusion of left iliac artery I74.5 Postoperative nausea R11.0; Z98.890 CAD (coronary artery disease) I25.10 Coronary Disease-Associated Artery/Lesion type: [place] artery [place] vs. transplanted heart: [place] heart Associated angina: without angina (3) CAD (coronary artery disease) Coronary Disease-Associated Artery/Lesion type: [place] artery [place] vs. transplanted heart: [place] heart Associated angina: without angina Qualified Code(s): I25.10 - Atherosclerotic heart disease of [place] coronary artery without angina pectoris
[2022-09-25] MEDS ORDERED: PROMETHAZINE HCL 12.5 MG in SODIUM CHLORIDE 0.9% 50 ML IV STA (14:52)
[2022-09-25] MEDS ORDERED: STAT IV Infusion **Titration per Protocol STA ×3 (15:38→21:40)
[2022-09-25] MEDS ORDERED: niCARdipine 25 MG in SODIUM CHLORIDE 0.9% 240 ML IV SCH (15:45)
[2022-09-25] MEDS ORDERED: METOPROLOL TARTRATE 1 MG/ML VIAL IV ONE (16:46)
[2022-09-25] MEDS ORDERED: ADENOSINE IV SOLN 3 MG/ML 2 ML VIAL IV ONE (16:46)
[2022-09-25] MEDS: ESMOLOL / NSS 2,500 MG/250 ML BAG IV SCH ×4 (17:03→22:29)
--- NOTE | 2022-09-25 17:36 | Communication Note ---
Date of Service: September 25, 2022 Patient suddenly went into SVT with heart rates in the 190s. She was symptomatic with chest pressure and shortness of breath. I tried right carotid massage and asked the patient to bear down with minimal improvement in the heart rate. We also had the patient blow through a straw which slowed the heart rate down by approximately 10 points, but the heart rate quickly bounced back up to the low 190s. Blood pressures were stable throughout this event. We were able to monitor blood pressures via the art line. I asked for the nurse to drop 6 mg of adenosine and 5 mg of metoprolol. We placed external pacer leads on the patient and attached him to defibrillator. I elected to proceed with 2-1/2 mg of IV metoprolol given the patient stable blood pressure. The heart rate did improve to the 160s. We then gave additional 2-1/2 mg of IV metoprolol with improvement in the heart rates to the 110s. We did not end up giving adenosine. We will transition the patient off nicardipine to an esmolol infusion with goal systolic blood pressures of 160-1 80. Goal heart rates of 70-110. Dr. Maynard was updated regarding the events by the bedside RN. CRITICAL CARE TIME - I have personally spent 39 minutes of critical care time in the direct management of this patient. This is a life/limb threatening event. This includes time spent evaluating patient, direct bedside care, chart review, placing orders, interpretation of diagnostic studies, discussion with consultants, patient, and family members, as well as other required patient management activities. This time is exclusive of all separately billable procedures, and teaching time and separate from and in addition to any other critical care service time. Coding Level of Care Code Critical Care 1st 30-74 mins Time Spent (min) 39
[2022-09-25] MEDS ORDERED: LOSARTAN POTASSIUM 50 MG TAB PO ONE (19:03)
[2022-09-25] MEDS ORDERED: PROMETHAZINE HCL 12.5 MG in SODIUM CHLORIDE 0.9% 50 ML IV PRN (19:09)
[2022-09-25] MEDS: Albuterol HFA 8 GM Inhaler (Combivent Respimat P&T Subs) INH SCH (19:43)
[2022-09-25] MEDS: Ipratropium HFA Inhaler (Combivent Respimat P&T Subs) INH SCH (19:44)
[2022-09-25] MEDS: levETIRAcetam 500 MG TAB PO SCH (20:51)
[2022-09-25] MEDS: PANTOprazole 40 MG TAB PO SCH (20:53)
[2022-09-25] MEDS: APIXABAN 2.5 MG TAB PO SCH (20:55)
[2022-09-25] MEDS: CLOPIDOGREL BISULFATE 75 MG TAB PO SCH (20:56)
[2022-09-25] MEDS: AMITRIPTYLINE HCL 25 MG TAB PO SCH (20:56)
[2022-09-25] MEDS: ROSUVASTATIN CALCIUM 20 MG TAB PO SCH (20:57)
[2022-09-25] MEDS: CHOLECALCIFEROL 1,000 UNITS 25 MCG TAB PO SCH (20:58)
[2022-09-25] MEDS: cloNIDine HCL 0.1 MG TAB PO SCH (21:03)
[2022-09-25] MEDS: INSULIN ASPART PER UNIT SC SCH (21:13)
[2022-09-25] MEDS: niCARdipine 25 MG in SODIUM CHLORIDE 0.9% 240 ML IV SCH (21:57)
[2022-09-26] MEDS ORDERED: METOPROLOL TARTRATE 1 MG/ML VIAL IV PRN (01:39)
[2022-09-26] MEDS: ESMOLOL / NSS 2,500 MG/250 ML BAG IV SCH (01:43)
[2022-09-26] MEDS: Albuterol HFA 8 GM Inhaler (Combivent Respimat P&T Subs) INH SCH ×5 (01:50→20:36)
[2022-09-26] MEDS ORDERED: METOPROLOL TARTRATE 1 MG/ML VIAL IV ONE (01:58)
[2022-09-26] MEDS ORDERED: METOPROLOL TARTRATE 1 MG/ML VIAL IV STA (03:16)
[2022-09-26] MEDS: niCARdipine 25 MG in SODIUM CHLORIDE 0.9% 240 ML IV SCH ×2 (03:30→06:35)
[2022-09-26] MEDS: MAGNESIUM SULFATE / D5W 1 GM/100 ML BAG IV SCH ×2 (03:32→05:10)
[2022-09-26] MEDS: Ipratropium HFA Inhaler (Combivent Respimat P&T Subs) INH SCH ×4 (03:36→20:36)
[2022-09-26 06:02] LABS: Basophils # (auto) 0.03 K/uL (0-0.2); Basophils % (auto) 0.2 %; Hematocrit (blood only) 34.9 % (37.0-47.0); Immature Granulocytes % (auto) 0.6 %; Lymphocytes # (auto) 2.22 K/uL (1.2-3.4); Lymphocytes % (auto) 13.7 %; Mean Corpuscular Hemoglobin 30.5 pg (25.0-34.0); Mean Corpuscular Hgb Conc 34.4 g/dL (32.0-36.0); Mean Corpuscular Volume 88.6 fL (80.0-100.0); Mean Platelet Volume 10.1 fL (9.4-12.4); Monocytes # (auto) 1.11 K/uL (0.11-0.59); Monocytes % (auto) 6.8 %; Neutrophils % (auto) 78.7 %; Platelet Count 302 K/uL (130-400); RDW Standard Deviation 42.2 fL (36.4-46.3); Red Blood Count 3.94 M/uL (4.20-5.40); White Blood Count 16.26 K/ul (4.8-10.8)
[2022-09-26 06:06] LABS: BUN Creatinine Ratio 16.7 (10-20); Calcium 8.5 mg/dl (8.5-10.1); Creatinine Clr Calc Pharmacy 95.2 ml/min; Est GFR (African American) 108.5 ml/min; Est GFR (Non-African American) 93.6 ml/min; Potassium 3.1 mmol/L (3.5-5.1)
[2022-09-26] MEDS: D5W AND 1/2NSS 1,000 ML IV SCH ×2 (06:07→16:00)
[2022-09-26] MEDS ORDERED: METOPROLOL SUCC 50MG EXT REL TAB PO ONE (06:09)
[2022-09-26] MEDS: ONDANSETRON INJ 2 MG/ML 2 ML VIAL IV PRN (07:42)
[2022-09-26] MEDS: INSULIN ASPART PER UNIT SC SCH ×4 (07:49→20:35)
--- NOTE | 2022-09-26 08:14 | Critical Care Progress Note ---
Date of Service September 26, 2022 Assessment & Plan (1) Occlusion of left iliac artery: Plan: Patient status post fem fem bypass. Defer antiplatelet therapy and antihypertensive regimen to vascular surgery. Monitor neurovascular checks frequently. Monitor for postop ileus. ICU team will continue monitoring the patient while the patient remains under ICU status. (2) Postoperative nausea: Plan: Continue with Zofran and IV Phenergan. Patient with a history of cyclical vomiting. (3) CAD (coronary artery disease): Plan: Patient ordered Eliquis and Plavix per vascular surgeon. (4) Hypertension: Plan: Nicardipine drip weaned off. Restart home medications. Arterial line remains in place. Defer removal to primary team. (5) Tachycardia: Plan: Received several doses of IV metoprolol overnight. Will defer the addition of a scheduled beta-blaine to the primary team. Plan Thank you for the consultation. Please call with questions. Admission and Anticipated Discharge Date Admission Date: September 25, 2022 Subjective Patient with episodes of nausea and vomiting overnight. Also with periodic hypertension regarding nicardipine drip. Currently off of the nicardipine drip and nausea is better controlled with IV Zofran. We will continue to monitor. She does complain of a mild headache. No chest pain, shortness of breath. Saturating the low 90s on room air. Review of Systems Review of Systems: All systems reviewed & are unremarkable except as noted in HPI & below Physical Exam Physical Exam: Constitutional: Patient appears to be of their stated age. Moderate distress due to nausea. Patient is well-developed. Eyes: Pupils are equal round and reactive to light. Conjunctivae are normal. Anicteric sclera. Ears nose, mouth and throat: Mallampati class 2. Normal posterior oropharynx. Uvula is midline. Neck: Trachea is midline. Visual inspection is normal. Respiratory: Clear to auscultation bilaterally. No use of accessory muscles. No significant clubbing noted. Cardiovascular: Regular rate and rhythm. No murmurs. No edema. Gastrointestinal: Soft. Tender around the graft site. No signs of ecchymosis. Musculoskeletal: No cyanosis. Patient is able to move all extremities. Strength is 5 out of 5 in the upper and lower extremities. Skin: No rashes, warm dry and intact. Neurologic: No obvious focal neurological deficits seen. Psychiatric: Alert and oriented x3 with a euthymic affect. Results & Data Results & Data ([facility]) Vital Signs (Past 12 Hours) Vital Signs Temp Pulse Pulse Resp BP Pulse Ox O2 Del Method 09/26/22 07:40 114 H 20 93 Room Air 09/26/22 05:27 37.2 C 09/26/22 05:00 115 H 17 93 09/26/22 04:50 116 H 19 94 09/26/22 04:40 114 H 25 H 93 09/26/22 04:30 111 H 18 92 09/26/22 04:30 151/97 H 09/26/22 04:20 115 H 17 93 09/26/22 04:10 110 H 18 93 09/26/22 04:00 109 H 24 92 09/26/22 04:00 152/105 H 09/26/22 03:50 110 H 15 92 09/26/22 03:40 107 H 20 91 09/26/22 03:30 108 H 14 94 09/26/22 03:30 159/104 H 09/26/22 03:20 120 H 14 94 09/26/22 03:10 121 H 14 94 09/26/22 03:00 120 H 19 92 09/26/22 03:00 157/101 H 09/26/22 02:50 117 H 14 94 09/26/22 02:40 120 H 18 94 09/26/22 02:30 119 H 14 94 09/26/22 02:30 165/97 H 09/26/22 02:20 115 H 10 L 95 09/26/22 02:10 111 H 12 94 09/26/22 02:09 112 H 14 95 09/26/22 01:50 122 H 18 93 09/26/22 01:40 105 H 19 93 09/26/22 01:30 107 H 19 94 09/26/22 01:30 152/110 H 09/26/22 01:20 103 H 19 94 09/26/22 01:10 107 H 18 92 09/26/22 01:01 108 H 19 93 09/26/22 01:00 153/103 H 09/26/22 00:58 107 H 16 93 09/26/22 00:50 107 H 17 94 09/26/22 00:40 107 H 27 H 92 09/26/22 00:30 108 H 16 92 09/26/22 00:30 158/107 H 09/26/22 00:20 108 H 13 94 09/26/22 00:10 108 H 12 94 09/26/22 00:00 111 H 14 95 09/26/22 00:00 159/102 H 09/25/22 23:50 114 H 21 96 09/25/22 23:40 108 H 17 95 09/25/22 23:30 104 H 17 93 09/25/22 23:30 157/101 H 09/25/22 23:20 109 H 13 96 09/25/22 23:10 105 H 19 94 09/25/22 23:00 109 H 22 95 09/25/22 23:00 155/115 H 09/25/22 22:50 104 H 12 96 09/25/22 22:40 103 H 19 93 09/25/22 22:30 105 H 14 94 09/25/22 22:30 187/125 H 09/25/22 22:24 36.7 C 09/25/22 22:20 96 H 16 93 09/25/22 22:10 100 H 22 93 09/25/22 22:00 94 H 18 96 09/25/22 22:00 205/129 H 09/25/22 21:50 94 H 25 H 95 09/25/22 21:40 92 H 7 L 95 09/25/22 21:30 91 H 13 96 09/25/22 21:30 203/133 H 09/25/22 21:20 91 H 17 95 09/25/22 21:15 91 H 13 95 09/25/22 21:15 204/136 H 09/25/22 21:10 95 H 15 96 09/25/22 21:00 91 H 14 95 09/25/22 20:50 91 H 15 95 09/25/22 20:40 93 H 20 95 09/25/22 20:30 94 H 21 96 09/25/22 20:20 93 H 23 94 Coding Level of Care Code 76689 SUB INP/OBS CARE 2/35MIN Diagnoses Occlusion of left iliac artery I74.5 Postoperative nausea R11.0; Z98.890 CAD (coronary artery disease) I25.10 Coronary Disease-Associated Artery/Lesion type: [place] artery [place] vs. transplanted heart: [place] heart Associated angina: without angina Hypertension I10 Tachycardia R00.0 (3) CAD (coronary artery disease) Coronary Disease-Associated Artery/Lesion type: [place] artery [place] vs. transplanted heart: [place] heart Associated angina: without angina Qualified Code(s): I25.10 - Atherosclerotic heart disease of [place] coronary artery without angina pectoris
[2022-09-26] MEDS ORDERED: METOPROLOL SUCC 50MG EXT REL TAB PO SCH (09:00)
[2022-09-26] MEDS ORDERED: LOSARTAN POTASSIUM 50 MG TAB PO SCH (09:00)
[2022-09-26] MEDS: cloNIDine HCL 0.1 MG TAB PO SCH ×2 (09:21→20:10)
[2022-09-26] MEDS: APIXABAN 2.5 MG TAB PO SCH ×2 (09:21→20:12)
[2022-09-26] MEDS: VENLAFAXINE HCL XR 150 MG CAPXR PO SCH (09:22)
[2022-09-26] MEDS: levETIRAcetam 500 MG TAB PO SCH ×2 (09:22→20:13)
[2022-09-26] MEDS: PANTOprazole 40 MG TAB PO SCH ×2 (09:22→20:14)
[2022-09-26] MEDS: oxyCODONE/ACETAMINOPHEN 5mg/325mg TAB PO PRN ×2 (09:24→20:37)
[2022-09-26] MEDS: MULTIVITAMIN TAB PO SCH (10:11)
--- NOTE | 2022-09-26 11:02 | Electrocardiogram Report ---
Test Reason : Blood Pressure : / mmHG Vent. Rate : 107 BPM Atrial Rate : 107 BPM P-R Int : 184 ms QRS Dur : 088 ms QT Int : 340 ms P-R-T Axes : 056 023 077 degrees QTc Int : 453 ms Sinus tachycardia with occasional Premature ventricular complexes Nonspecific ST abnormality Otherwise normal ECG When compared with ECG of 17-SEP-2022 11:01, Premature ventricular complexes are now Present Nonspecific T wave abnormality now evident in Inferior leads Nonspecific T wave abnormality now evident in Lateral leads Confirmed by Pako Holland ([id number]) on 09/26/2022 11:01:50 AM Referred By: Alex Maynard Confirmed By:Tereso Holland
[2022-09-26] MEDS ORDERED: STAT IV Infusion **Titration per Protocol STA (13:25)
[2022-09-26] MEDS ORDERED: SODIUM CHLORIDE 0.9% 1000ML 1,000 ML IV SCH (13:32)
[2022-09-26] MEDS: PHENYLEPHRINE/NSS 25 MG/250 ML BAG IV SCH (13:39)
--- NOTE | 2022-09-26 13:55 | Surgery Progress Note ---
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 Graft patent. Has good PT pulses to doppler. (2) Hypotension after procedure: Plan: BP running low. Will place back on shital and give fluid bolus to increase BP. Would like systolic above 100 to keep the graft patent. Will Admission and Anticipated Discharge Date Admission Date: September 25, 2022 Subjective Patient awake and alert. Complains of minimal incisional and tunnel discomfort. No pain in feet. Physical Exam Constitutional: WD/WN, vitals as above Respiratory: normal respiratory effort; no respiratory distress Cardiovascular: Rate/Rhythm: regular rate and regular rhythm Vessels: posterior tibial pulses present (good dopplers bilaterally) Extremities: normal capillary refill Gastrointestinal (Abdomen): Inspection/Auscultation: abdomen normal to inspection Percussion/Palpation: abdomen soft Musculoskeletal: no cyanosis or clubbing, extremities motor strength 5/5 Skin: + incision (prevena dressings intact) Neurologic: CN's II-XI intact bilaterally and moves all extremities Psychiatric: Orientation: alert and oriented x 3 Results & Data ([facility]) Vital Signs (Past 12 Hours) Vital Signs Temp Pulse Pulse Pulse Resp BP Pulse Ox 09/26/22 12:58 85 16 93 09/26/22 12:30 86 92 09/26/22 12:30 81/45 L 09/26/22 12:00 93 H 93 09/26/22 12:00 86/54 L 09/26/22 11:38 99 H 92 09/26/22 11:38 81/58 L 09/26/22 11:32 108 H 91 09/26/22 11:32 65/40 L 09/26/22 11:30 102 H 93 09/26/22 11:18 101 H 09/26/22 11:18 85/70 L 09/26/22 11:13 90/67 L 09/26/22 11:13 105 H 09/26/22 11:11 106 H 09/26/22 11:11 98/62 L 09/26/22 11:09 97/82 L 09/26/22 11:09 105 H 9 L 09/26/22 11:06 106/66 09/26/22 11:06 96 H 15 09/26/22 11:04 75/57 L 09/26/22 11:04 99 H 15 09/26/22 11:00 101 H 21 93 09/26/22 10:31 103 H 19 92 09/26/22 10:31 115/80 09/26/22 10:30 102 H 19 93 09/26/22 10:01 107 H 19 92 09/26/22 10:01 172/117 H 09/26/22 10:00 106 H 17 93 09/26/22 09:33 111 H 16 94 09/26/22 09:33 117/82 09/26/22 09:30 111 H 18 94 09/26/22 09:01 153/109 H 09/26/22 09:01 119 H 23 92 09/26/22 09:00 113 H 23 93 09/26/22 08:45 108 H 20 92 09/26/22 08:30 113 H 22 91 09/26/22 08:30 113/81 09/26/22 08:15 111 H 26 H 92 09/26/22 08:01 165/106 H 09/26/22 08:01 114 H 16 92 09/26/22 08:00 112 H 16 93 09/26/22 07:45 117 H 23 92 09/26/22 07:45 98/68 L 09/26/22 07:30 115 H 19 93 09/26/22 07:30 141/97 H 09/26/22 07:15 117 H 13 94 09/26/22 07:01 116 H 19 93 09/26/22 07:01 182/107 H 09/26/22 07:00 115 H 16 93 09/26/22 08:01 37 C 09/26/22 07:40 114 H 20 93 09/26/22 05:27 37.2 C 09/26/22 05:00 115 H 17 93 09/26/22 04:50 116 H 19 94 09/26/22 04:40 114 H 25 H 93 09/26/22 04:30 111 H 18 92 09/26/22 04:30 151/97 H 09/26/22 04:20 115 H 17 93 09/26/22 04:10 110 H 18 93 09/26/22 04:00 109 H 24 92 09/26/22 04:00 152/105 H 09/26/22 03:50 110 H 15 92 09/26/22 03:40 107 H 20 91 02/23/23 03:30 108 H 14 94 09/26/22 03:30 159/104 H 09/26/22 03:20 120 H 14 94 09/26/22 03:10 121 H 14 94 09/26/22 03:00 120 H 19 92 09/26/22 03:00 157/101 H 09/26/22 02:50 117 H 14 94 09/26/22 02:40 120 H 18 94 09/26/22 02:30 119 H 14 94 09/26/22 02:30 165/97 H 09/26/22 02:20 115 H 10 L 95 09/26/22 02:10 111 H 12 94 09/26/22 02:09 112 H 14 95 09/26/22 01:50 122 H 18 93 O2 Del Method 09/26/22 12:58 Room Air 09/26/22 12:30 09/26/22 12:30 09/26/22 12:00 09/26/22 12:00 09/26/22 11:38 09/26/22 11:38 09/26/22 11:32 09/26/22 11:32 09/26/22 11:30 09/26/22 11:18 09/26/22 11:18 09/26/22 11:13 09/26/22 11:13 09/26/22 11:11 09/26/22 11:11 09/26/22 11:09 09/26/22 11:09 09/26/22 11:06 09/26/22 11:06 09/26/22 11:04 09/26/22 11:04 09/26/22 11:00 09/26/22 10:31 09/26/22 10:31 09/26/22 10:30 09/26/22 10:01 09/26/22 10:01 09/26/22 10:00 09/26/22 09:33 09/26/22 09:33 09/26/22 09:30 09/26/22 09:01 09/26/22 09:01 09/26/22 09:00 09/26/22 08:45 09/26/22 08:30 09/26/22 08:30 09/26/22 08:15 09/26/22 08:01 09/26/22 08:01 09/26/22 08:00 09/26/22 07:45 09/26/22 07:45 09/26/22 07:30 Room Air 09/26/22 07:30 09/26/22 07:15 09/26/22 07:01 09/26/22 07:01 09/26/22 07:00 09/26/22 08:01 09/26/22 07:40 Room Air 09/26/22 05:27 09/26/22 05:00 09/26/22 04:50 09/26/22 04:40 09/26/22 04:30 09/26/22 04:30 09/26/22 04:20 09/26/22 04:10 09/26/22 04:00 09/26/22 04:00 09/26/22 03:50 09/26/22 03:40 09/26/22 03:30 09/26/22 03:30 09/26/22 03:20 09/26/22 03:10 09/26/22 03:00 09/26/22 03:00 09/26/22 02:50 09/26/22 02:40 09/26/22 02:30 09/26/22 02:30 09/26/22 02:20 09/26/22 02:10 09/26/22 02:09 09/26/22 01:50
[2022-09-26] MEDS: AMITRIPTYLINE HCL 25 MG TAB PO SCH (20:11)
[2022-09-26] MEDS: CHOLECALCIFEROL 1,000 UNITS 25 MCG TAB PO SCH (20:12)
[2022-09-26] MEDS: CLOPIDOGREL BISULFATE 75 MG TAB PO SCH (20:13)
[2022-09-26] MEDS: ROSUVASTATIN CALCIUM 20 MG TAB PO SCH (20:15)
[2022-09-27] MEDS: Albuterol HFA 8 GM Inhaler (Combivent Respimat P&T Subs) INH SCH ×5 (01:11→23:59)
[2022-09-27] MEDS: Ipratropium HFA Inhaler (Combivent Respimat P&T Subs) INH SCH ×5 (01:11→23:59)
[2022-09-27] MEDS: D5W AND 1/2NSS 1,000 ML IV SCH ×3 (02:24→21:54)
[2022-09-27] MEDS: PHENYLEPHRINE/NSS 25 MG/250 ML BAG IV SCH ×2 (03:30→09:07)
[2022-09-27 06:45] LABS: Basophils # (auto) 0.13 K/uL (0-0.2); Basophils % (auto) 1.1 %; Eosinophils # (auto) 0.29 K/uL (0-0.50); Eosinophils % (auto) 2.4 %; Hematocrit (blood only) 28.9 % (37.0-47.0); Hemoglobin 9.6 g/dl (12.0-16.0); Immature Granulocytes # (auto) 0.17 K/uL (0.01-0.20); Immature Granulocytes % (auto) 1.4 %; Lymphocytes # (auto) 3.29 K/uL (1.2-3.4); Lymphocytes % (auto) 27.6 %; Mean Corpuscular Hemoglobin 30.7 pg (25.0-34.0); Mean Corpuscular Hgb Conc 33.2 g/dL (32.0-36.0); Mean Corpuscular Volume 92.3 fL (80.0-100.0); Mean Platelet Volume 10.2 fL (9.4-12.4); Monocytes % (auto) 6.7 %; Neutrophils # (auto) 7.22 K/uL (1.40-6.50); Neutrophils % (auto) 60.8 %; Platelet Count 257 K/uL (130-400); RDW Coefficient of Variation 13.5 % (11.5-14.5); RDW Standard Deviation 45.1 fL (36.4-46.3); Red Blood Count 3.13 M/uL (4.20-5.40)
[2022-09-27 06:47] LABS: BUN Creatinine Ratio 16.9 (10-20); Calcium 8.5 mg/dl (8.5-10.1); Creatinine Clr Calc Pharmacy 90.2 ml/min; Est GFR (Non-African American) 86.3 ml/min; Potassium 3.2 mmol/L (3.5-5.1)
[2022-09-27 06:51] LABS: Magnesium 2.1 mg/dl (1.7-2.4); Phosphorus 1.4 mg/dl (2.5-4.9)
[2022-09-27] MEDS: INSULIN ASPART PER UNIT SC SCH ×4 (08:42→20:17)
[2022-09-27] MEDS ORDERED: POTASSIUM PHOS 3 MMOL/1 ML INFUSION IV STA (08:48)
[2022-09-27] MEDS ORDERED: METOPROLOL SUCC 50MG EXT REL TAB PO SCH (09:00)
[2022-09-27] MEDS ORDERED: POTASSIUM PHOSPHATE 30 MMOL in DEXTROSE 5% 500 ML IV ONE (09:00)
--- NOTE | 2022-09-27 09:00 | Critical Care Progress Note ---
Date of Service September 27, 2022 Assessment & Plan (1) Occlusion of left iliac artery: Plan: Patient status post fem fem bypass. Defer antiplatelet therapy and antihypertensive regimen to vascular surgery. Monitor neurovascular checks frequently. Monitor for postop ileus. ICU team will continue monitoring the patient while the patient remains under ICU status. (2) Postoperative nausea: Plan: Continue with Zofran and IV Phenergan. Patient with a history of cyclical vomiting. Better controlled today. (3) CAD (coronary artery disease): Plan: Patient ordered Eliquis and Plavix per vascular surgeon. (4) Hypertension: Plan: She was actually hypotensive throughout the day yesterday on a phenylephrine infusion. We will discontinue metoprolol and lower the dose of losartan. Continue clonidine. (5) Tachycardia: Plan: Largely resolved. Discontinue metoprolol. (6) Hypophosphatemia: Plan: Replacing with K-Phos. (7) Hypokalemia: Plan Thank you for the consultation. Please call with questions. Admission and Anticipated Discharge Date Admission Date: September 25, 2022 Subjective Patient had a good night last night and was able to sleep. Denies any nausea or vomiting today. Minimal headache. Blood pressure is much better off of phenylephrine. Review of Systems Review of Systems: All systems reviewed & are unremarkable except as noted in HPI & below Physical Exam Physical Exam: Constitutional: Patient appears to be of their stated age. Patient is well- developed. Eyes: Pupils are equal round and reactive to light. Conjunctivae are normal. Anicteric sclera. Ears nose, mouth and throat: Mallampati class 2. Normal posterior oropharynx. Uvula is midline. Neck: Trachea is midline. Visual inspection is normal. Respiratory: Clear to auscultation bilaterally. No use of accessory muscles. No significant clubbing noted. Cardiovascular: Regular rate and rhythm. No murmurs. No edema. Gastrointestinal: Soft. Tender around the graft site. No signs of ecchymosis. Musculoskeletal: No cyanosis. Patient is able to move all extremities. Strength is 5 out of 5 in the upper and lower extremities. Skin: No rashes, warm dry and intact. Neurologic: No obvious focal neurological deficits seen. Psychiatric: Alert and oriented x3 with a euthymic affect. Results & Data Results & Data ([facility]) Vital Signs (Past 12 Hours) Vital Signs Temp Pulse Pulse Resp BP Pulse Ox O2 Del Method 09/27/22 07:34 99 H 18 93 Room Air 09/27/22 04:55 36.9 C 09/27/22 04:00 72 15 94 09/27/22 04:00 116/72 09/27/22 03:30 127/68 09/27/22 03:30 71 15 92 09/27/22 03:00 77 12 91 09/27/22 03:00 110/69 09/27/22 02:30 73 17 92 09/27/22 02:30 97/61 L 09/27/22 02:24 93/57 L 09/27/22 02:24 72 16 93 09/27/22 02:00 77 15 92 09/27/22 02:00 84/60 L 09/27/22 01:30 125/68 09/27/22 01:30 83 16 90 09/27/22 01:00 92 H 17 90 09/27/22 01:00 133/87 09/27/22 00:30 83 22 90 Room Air 09/27/22 00:30 112/62 09/27/22 00:00 63 09/27/22 00:00 85 17 91 Room Air 09/27/22 00:00 117/72 09/26/22 23:30 82 15 91 09/26/22 23:30 115/68 09/26/22 23:00 83 17 93 09/26/22 23:00 119/70 09/26/22 22:00 89 33 H 89 L 09/26/22 21:30 83 16 91 09/26/22 21:00 106/61 09/26/22 21:00 81 14 91 09/26/22 21:00 36.8 C Coding Level of Care Code 36068 SUB INP/OBS CARE 235MIN Diagnoses Occlusion of left iliac artery I74.5 Postoperative nausea R11.0; Z98.890 CAD (coronary artery disease) I25.10 Coronary Disease-Associated Artery/Lesion type: [place] artery [place] vs. transplanted heart: [place] heart Associated angina: without angina Hypertension I10 Tachycardia R00.0 Hypophosphatemia E83.39 Hypokalemia E87.6 (3) CAD (coronary artery disease) Coronary Disease-Associated Artery/Lesion type: [place] artery [place] vs. transplanted heart: [place] heart Associated angina: without angina Qualified Code(s): I25.10 - Atherosclerotic heart disease of [place] coronary artery without angina pectoris
[2022-09-27] MEDS: PANTOprazole 40 MG TAB PO SCH ×2 (09:11→20:21)
[2022-09-27] MEDS: APIXABAN 2.5 MG TAB PO SCH ×2 (09:11→20:19)
[2022-09-27] MEDS: levETIRAcetam 500 MG TAB PO SCH ×2 (09:11→20:20)
[2022-09-27] MEDS: VENLAFAXINE HCL XR 150 MG CAPXR PO SCH (09:12)
[2022-09-27] MEDS: MULTIVITAMIN TAB PO SCH (09:12)
[2022-09-27] MEDS: cloNIDine HCL 0.1 MG TAB PO SCH ×2 (09:12→20:19)
[2022-09-27] MEDS: LOSARTAN POTASSIUM 25 MG TAB PO SCH (09:20)
[2022-09-27] MEDS: oxyCODONE/ACETAMINOPHEN 5mg/325mg TAB PO PRN ×2 (09:25→20:27)
--- NOTE | 2022-09-27 09:26 | Surgery Progress Note ---
Date of Service September 27, 2022 Assessment & Plan (1) Occlusion of left iliac artery: Plan: Post op fem fem bypass. Graft patent. Has good PT pulses to doppler. Continue to increase activity and monitor. (2) Hypotension after procedure: Plan: Resolved. Phenylephrine d/c, and pt is maintaining BP well. Admission and Anticipated Discharge Date Admission Date: September 25, 2022 Subjective 57 yo f POD #2 after R to L fem fem BPG, seen in f/u today. Pt states pain well controlled and feeling better than yesterday. No pain in feet. Taking PO well. Has been OOB to chair and to BR. Admits mild ESTRELLA today. Review of Systems Review of Systems: All systems reviewed & are unremarkable except as noted in HPI & below Physical Exam Constitutional: WD/WN, vitals as above Respiratory: normal respiratory effort, lungs clear to auscultation normal respiratory effort; no respiratory distress Cardiovascular: RRR, no murmur, no edema Rate/Rhythm: regular rate and regular rhythm Vessels: posterior tibial pulses present (good dopplers bilaterally) and radial pulses present; + dorsalis pedis pulses abnormal Extremities: normal capillary refill Gastrointestinal (Abdomen): normal bowel sounds, soft, nontender, no hepatosplenomegaly Inspection/Auscultation: abdomen normal to inspection Percussion/Palpation: abdomen soft Musculoskeletal: no cyanosis or clubbing, extremities motor strength 5/5 Skin: + incision (prevena dressings intact) Neurologic: CN's II-XI intact bilaterally and moves all extremities Psychiatric: Orientation: alert and oriented x 3 Results & Data ([facility]) Vital Signs (Past 12 Hours) Vital Signs Temp Pulse Pulse Resp BP Pulse Ox O2 Del Method 09/27/22 08:45 89 16 92 09/27/22 08:45 119/71 09/27/22 08:30 89 13 91 09/27/22 08:30 135/82 09/27/22 08:15 91 H 18 92 09/27/22 08:15 132/84 09/27/22 08:00 89 19 93 09/27/22 08:00 137/87 09/27/22 07:45 81 15 92 09/27/22 07:45 130/86 09/27/22 07:30 85 19 93 09/27/22 07:30 154/92 H 09/27/22 07:15 89 17 91 09/27/22 07:15 133/94 09/27/22 07:01 88 14 93 09/27/22 07:01 143/95 H 09/27/22 07:00 88 12 94 09/27/22 06:45 90 25 H 90 09/27/22 06:30 87 16 91 09/27/22 06:30 104/81 09/27/22 06:15 92 H 22 92 09/27/22 06:01 115/80 09/27/22 06:01 89 18 91 09/27/22 06:00 84 24 91 09/27/22 05:45 78 23 93 09/27/22 05:30 79 14 93 09/27/22 05:30 149/90 H 09/27/22 05:15 79 17 92 09/27/22 05:00 72 12 95 09/27/22 05:00 127/90 09/27/22 04:45 71 14 92 09/27/22 04:30 74 18 93 09/27/22 04:30 117/65 09/27/22 04:15 74 14 93 09/27/22 07:34 99 H 18 93 Room Air 09/27/22 04:55 36.9 C 09/27/22 04:00 72 15 94 09/27/22 04:00 116/72 09/27/22 03:30 127/68 09/27/22 03:30 71 15 92 09/27/22 03:00 77 12 91 09/27/22 03:00 110/69 09/27/22 02:30 73 17 92 09/27/22 02:30 97/61 L 09/27/22 02:24 93/57 L 09/27/22 02:24 72 16 93 09/27/22 02:00 77 15 92 09/27/22 02:00 84/60 L 09/27/22 01:30 125/68 09/27/22 01:30 83 16 90 09/27/22 01:00 92 H 17 90 09/27/22 01:00 133/87 09/27/22 00:30 83 22 90 Room Air 09/27/22 00:30 112/62 09/27/22 00:00 63 09/27/22 00:00 85 17 91 Room Air 09/27/22 00:00 117/72 09/26/22 23:30 82 15 91 09/26/22 23:30 115/68 09/26/22 23:00 83 17 93 09/26/22 23:00 119/70 09/26/22 22:00 89 33 H 89 L 09/26/22 21:30 83 16 91
[2022-09-27] MEDS: AMITRIPTYLINE HCL 25 MG TAB PO SCH (20:18)
[2022-09-27] MEDS: CHOLECALCIFEROL 1,000 UNITS 25 MCG TAB PO SCH (20:19)
[2022-09-27] MEDS: CLOPIDOGREL BISULFATE 75 MG TAB PO SCH (20:20)
[2022-09-27] MEDS: ROSUVASTATIN CALCIUM 20 MG TAB PO SCH (20:21)
[2022-09-28] MEDS: cloNIDine HCL 0.1 MG TAB PO SCH ×2 (03:44→07:55)
[2022-09-28 05:55] LABS: Basophils # (auto) 0.06 K/uL (0-0.2); Basophils % (auto) 0.8 %; Eosinophils # (auto) 0.45 K/uL (0-0.50); Eosinophils % (auto) 6.1 %; Hematocrit (blood only) 27.4 % (37.0-47.0); Hemoglobin 9.2 g/dl (12.0-16.0); Immature Granulocytes # (auto) 0.02 K/uL (0.01-0.20); Immature Granulocytes % (auto) 0.3 %; Lymphocytes # (auto) 2.09 K/uL (1.2-3.4); Lymphocytes % (auto) 28.5 %; Mean Corpuscular Hemoglobin 30.9 pg (25.0-34.0); Mean Corpuscular Hgb Conc 33.6 g/dL (32.0-36.0); Mean Corpuscular Volume 91.9 fL (80.0-100.0); Mean Platelet Volume 9.6 fL (9.4-12.4); Monocytes # (auto) 0.52 K/uL (0.11-0.59); Monocytes % (auto) 7.1 %; Neutrophils % (auto) 57.2 %; Platelet Count 206 K/uL (130-400); RDW Coefficient of Variation 13.3 % (11.5-14.5); RDW Standard Deviation 44.3 fL (36.4-46.3); Red Blood Count 2.98 M/uL (4.20-5.40); White Blood Count 7.34 K/ul (4.8-10.8)
[2022-09-28 06:05] LABS: BUN Creatinine Ratio 9.6 (10-20); Calcium 8.7 mg/dl (8.5-10.1); Creatinine Clr Calc Pharmacy 94.2 ml/min; Est GFR (African American) 106.7 ml/min; Est GFR (Non-African American) 92.1 ml/min; Magnesium 1.8 mg/dl (1.7-2.4); Phosphorus 2.7 mg/dl (2.5-4.9); Potassium 3.2 mmol/L (3.5-5.1)
[2022-09-28] MEDS: D5W AND 1/2NSS 1,000 ML IV SCH (07:50)
[2022-09-28] MEDS: Albuterol HFA 8 GM Inhaler (Combivent Respimat P&T Subs) INH SCH (07:51)
[2022-09-28] MEDS: Ipratropium HFA Inhaler (Combivent Respimat P&T Subs) INH SCH (07:51)
[2022-09-28] MEDS: LOSARTAN POTASSIUM 25 MG TAB PO SCH (07:53)
[2022-09-28] MEDS: VENLAFAXINE HCL XR 150 MG CAPXR PO SCH (07:53)
[2022-09-28] MEDS: MULTIVITAMIN TAB PO SCH (07:53)
[2022-09-28] MEDS: APIXABAN 2.5 MG TAB PO SCH (07:54)
[2022-09-28] MEDS: levETIRAcetam 500 MG TAB PO SCH (07:54)
[2022-09-28] MEDS: PANTOprazole 40 MG TAB PO SCH (07:54)
[2022-09-28 07:55] VITALS: O2SAT 96
[2022-09-28] MEDS: INSULIN ASPART PER UNIT SC SCH (07:56)
[2022-09-28 08:32] VITALS: BP 139/96; TEMP 99.3
--- NOTE | 2022-09-28 08:51 | Surgery Progress Note ---
Date of Service September 28, 2022 Assessment & Plan (1) Occlusion of left iliac artery: Plan: doing well. BP much better. Ambulating without problems. D/C today. Admission and Anticipated Discharge Date Admission Date: September 25, 2022 Subjective Patient with no complaints. Able to walk around room without problems. No complaints of foot pain. Physical Exam Constitutional: WD/WN, vitals as above Respiratory: normal respiratory effort; no respiratory distress Cardiovascular: Vessels: femoral pulses present and posterior tibial pulses present (good to doppler) Extremities: normal capillary refill Gastrointestinal (Abdomen): Inspection/Auscultation: abdomen normal to inspection Percussion/Palpation: + abdomen tender (over graft tunnel) and abdomen soft Musculoskeletal: no cyanosis or clubbing, extremities motor strength 5/5 Skin: + incision (prevena in place both groins) Psychiatric: Orientation: alert and oriented x 3 Results & Data ([facility]) Vital Signs (Past 12 Hours) Vital Signs Temp Pulse Pulse Pulse Resp BP BP 09/28/22 08:00 09/28/22 08:00 09/28/22 08:00 96 H 09/28/22 07:00 37.4 C 75 16 L 16 139/96 09/28/22 07:54 96 H 18 09/28/22 06:00 96 H 18 09/28/22 05:00 89 16 146/93 H 09/28/22 04:33 100 H 16 09/28/22 04:33 145/102 H 09/28/22 04:30 159/126 H 09/28/22 04:30 85 12 09/28/22 04:01 85 17 09/28/22 04:01 162/111 H 09/28/22 04:00 84 12 09/28/22 03:41 160/104 H 09/28/22 03:41 85 14 09/28/22 03:40 99 H 15 09/28/22 03:01 85 15 09/28/22 02:01 86 15 09/28/22 01:00 78 12 09/28/22 00:00 85 137/91 09/27/22 23:00 89 09/27/22 23:00 126/85 09/27/22 22:00 85 09/27/22 21:00 86 09/27/22 21:00 147/92 H 09/27/22 22:01 36.7 C Pulse Ox O2 Del Method 09/28/22 08:00 Room Air 09/28/22 08:00 Room Air 09/28/22 08:00 09/28/22 07:00 96 Room Air 09/28/22 07:54 96 Room Air 09/28/22 06:00 94 09/28/22 05:00 92 09/28/22 04:33 93 09/28/22 04:33 09/28/22 04:30 09/28/22 04:30 94 09/28/22 04:01 92 09/28/22 04:01 09/28/22 04:00 95 09/28/22 03:41 09/28/22 03:41 93 Room Air 09/28/22 03:40 90 09/28/22 03:01 90 09/28/22 02:01 93 09/28/22 01:00 93 09/28/22 00:00 94 09/27/22 23:00 93 09/27/22 23:00 09/27/22 22:00 93 09/27/22 21:00 94 09/27/22 21:00 09/27/22 22:01
--- NOTE | 2022-09-28 08:58 | Discharge Summary ---
Date of Service September 28, 2022 Admission HPI Per Admitting Provider Ms Velasquez is a 57-year-old female who had an aortobifemoral bypass in the past. She has an occluded left limb. She is presenting with limiting claudication. It is limiting her daily activity. Her CT angiogram which just was performed showed a occlusion of the left iliac and left limb of her aortobifemoral bypass. Admission Exam Per Admitting Provider Constitutional: WD/WN, vitals as above Respiratory: normal respiratory effort, lungs clear to auscultation Cardiovascular: RRR, no murmur, no edema Vessels: femoral pulses present; + posterior tibial pulses abnormal (none on left) and + dorsalis pedis pulses abnormal (none on left) Extremities: normal capillary refill Gastrointestinal (Abdomen): normal bowel sounds, soft, nontender, no hepatosplenomegaly Musculoskeletal: no cyanosis or clubbing, extremities motor strength 5/5 Neurologic: CN's II-XI intact bilaterally and moves all extremities Psychiatric: Orientation: alert and oriented x 3 Principal Diagnosis Occlusion left limb of aortobifemoral bypass. Right to left fem fem bypass Discharge Exam Constitutional WD/WN, vitals as above Respiratory normal respiratory effort; no respiratory distress Cardiovascular RRR, no murmur, no edema Rate/Rhythm: regular rate and regular rhythm Vessels: femoral pulses present and posterior tibial pulses present (good to doppler) Extremities: normal capillary refill Gastrointestinal (Abdomen) Inspection/Auscultation: abdomen normal to inspection Percussion/Palpation: + abdomen tender (over graft tunnel) and abdomen soft Skin + incision (prevena in place both groins) Neurologic moves all extremities Psychiatric Orientation: alert and oriented x 3 Discharge Data Allergies Allergy/AdvReac Type Severity Reaction Status Date / Time napoles Allergy Intermediate Hives Verified 09/25/22 07:01 (green/hartman beans) doxycycline Allergy Intermediate Hives, Verified 09/25/22 07:01 vomiting Iodinated Contrast Media Allergy Intermediate Large Verified 09/25/22 07:01 hives, vomiting, "feeling hot" iodine Allergy Intermediate Hives, Verified 09/25/22 07:01 vomiting latex Allergy Intermediate Rash Verified 09/25/22 07:01 loperamide Allergy Intermediate Hives, Verified 09/25/22 07:01 vomiting meperidine Allergy Intermediate Hives, Verified 09/25/22 07:01 vomiting strawberry Allergy Intermediate Hives Verified 09/25/22 07:01 tomato Allergy Intermediate Hives Verified 09/25/22 07:01 prochlorperazine Allergy Mild N/V, Verified 09/25/22 07:01 itchiness Consultations 09/25/22 12:39 Consult Human Resources Department Supervisor Routine Procedures Performed Operation Date: 09/25/22 08:50 Actual Procedures p Right Femoral To Left Femoral Bypass(Not Applicable) - Alex Person MD Ordered Studies 09/25/22 07:23 sono, invasive monitoring [US point of care ultrasound] Stat Hospital Course (1) Occlusion of left iliac artery: doing well. BP much better. Ambulating without problems. D/C today. Total Time Total Time Spent Total Time Spent (In Minutes): 0 Discharge Plan Discharge Items Patient Disposition: Home - Self-Care Reason For Visit: Left Iliac Occlusion Discharge Diagnosis: Occlusion of left limb of aortobifemoral bypass, right to left fem fem bypass Activity: Per Instructions section Non-emergency contact: Surgeon Call non-emergency contact if: your temperature is above 101.5, your wound has increased redness, your wound has increased drainage and your wound pain has increased Follow-up/Referrals: Teena Killian DO [Primary Care Provider] - Diet: Heart Healthy Addtl Attending Provider Instructions: ACTIVITY RECOMMENDATIONS: Remove groins dressings once batteries no longer function and foam has swelled. May shower after that. Replace small dressing over wounds if there is any drainage. Ambulate as much as possible. SPECIAL CARE INSTRUCTIONS: Call your doctor if: * Temperature above 101 degrees * Pain not relieved by pain medicine ordered * There is increased drainage or redness from any incision * You have any unanswered questions or concerns. Call [phone] to schedule a follow up appointment if one not already scheduled. Pending Studies at Discharge: No Stand-Alone Forms: My [employer], Smoking Cessation Medications and DC Order Prescriptions: New oxycodone-acetaminophen [Percocet] 5-325 mg tablet 1 tab PO Q6H PRN (Reason: pain) Qty: 30 0RF Continued ondansetron HCl 4 mg tablet 4 mg PO Q8H PRN (Reason: nausea and vomiting) Qty: 20 0RF apixaban 2.5 mg tablet 2.5 mg PO BID Qty: 180 1RF levetiracetam [Keppra] 1,000 mg tablet 1,000 mg PO BID Qty: 180 1RF amitriptyline 25 mg tablet 25 mg PO HS Qty: 90 1RF clopidogrel [Plavix] 75 mg tablet 75 mg PO HS Qty: 90 1RF Patient Comments: PER DR PERSON OFFICE, TOLD TO STOP 7 DAYS BEFORE PROCEDURE clonidine HCl 0.1 mg tablet 0.1 mg PO BID 90 Days Qty: 180 1RF Rx Instructions: Take if systolic BP is >160, diastolic BP >100- TAKE UP TO FOUR TIMES DAILY IF NEEDED PER PT Combivent Respimat 20-100 mcg/actuation mist 1 puff inhalation Q6H Qty: 4 3RF venlafaxine 150 mg capsule,extended release 24hr 150 mg PO QAM Qty: 90 1RF cholecalciferol (vitamin D3) 50 mcg (2,000 unit) tablet 2,000 unit PO HS Qty: 90 1RF (DME) Auto Titrating CPAP Misc See Rx Instructions .ROUTE .MEDSUPPLY Qty: 1 0RF Rx Instructions: As directed Nightly pantoprazole 40 mg tablet,delayed release (DR/EC) 40 mg PO BID Qty: 180 2RF multivitamin Tablet 1 tab PO QAM metoprolol succinate 100 mg tablet extended release 24 hr 50 mg PO QAM Medical Marijuana 1 dose PO DIRECTED PRN (Reason: Pain) losartan 50 mg Tablet 50 mg PO DAILY rosuvastatin [Crestor] 40 mg Tablet 40 mg PO HS cimetidine 200 mg tablet 200 mg PO UD PRN (Reason: indigestion) Discharge Orders: Discharge Order (Routine); Ordered 09/28/22 Ordered By: Alex Person Admission Data Admit Date/Time: 09/25/22 07:21 Attending Provider: Alex Person Admit Provider: Alex Person Primary Care Provider: Teena Killian Other Providers: Armin Reis ; Philip Deleon ; Christiano Durbin ; Giuseppe Amaya ; Harsha Garcia ; Benji Haynes ; Tammi Joseph ; Devin Loza ; Dori Herrera
[2022-09-28 09:15] VITALS: PULSE 16
== END 2022-09-28 10:45 | disposition home health service (06) | DRG 253 ==
LOC: ASU 06:41 → 1E 07:21

== ENCOUNTER 2022-11-11 19:44 | Observation (INO) ==
[2022-11-11 21:32] LABS: Basophils # (auto) 0.12 K/uL (0-0.2); Basophils % (auto) 0.8 %; Eosinophils # (auto) 0.16 K/uL (0-0.50); Eosinophils % (auto) 1.1 %; Hematocrit (blood only) 35.5 % (37.0-47.0); Hemoglobin 11.7 g/dl (12.0-16.0); Immature Granulocytes # (auto) 0.07 K/uL (0.01-0.20); Immature Granulocytes % (auto) 0.5 %; Lymphocytes # (auto) 2.63 K/uL (1.2-3.4); Lymphocytes % (auto) 18.1 %; Mean Corpuscular Hemoglobin 27.3 pg (25.0-34.0); Mean Corpuscular Volume 82.8 fL (80.0-100.0); Mean Platelet Volume 10.3 fL (9.4-12.4); Monocytes # (auto) 0.82 K/uL (0.11-0.59); Monocytes % (auto) 5.6 %; Neutrophils # (auto) 10.76 K/uL (1.40-6.50); Neutrophils % (auto) 73.9 %; Platelet Count 506 K/uL (130-400); RDW Standard Deviation 45.5 fL (36.4-46.3); Red Blood Count 4.29 M/uL (4.20-5.40); White Blood Count 14.56 K/ul (4.8-10.8)
[2022-11-11] MEDS ORDERED: ONDANSETRON INJ 2 MG/ML 2 ML VIAL IV STA (21:32)
[2022-11-11] MEDS ORDERED: LABETALOL HCL IV 5 MG/ML 20ML IV STA ×3 (21:32→23:55)
[2022-11-11] MEDS ORDERED: levETIRAcetam 1,000 MG in 0.9 % SODIUM CHLORIDE 100 ML IV STA (21:36)
[2022-11-11 21:40] LABS: Albumin Globulin Ratio 1.5 (0.9-2); Albumin Level 4.6 gm/dl (3.4-5.0); BUN Creatinine Ratio 14.4 (10-20); Bilirubin,Total 0.4 mg/dl (0.2-1.0); Calcium 10.3 mg/dl (8.6-10.3); Est GFR (African American) 82.8 ml/min; Est GFR (Non-African American) 71.5 ml/min; Globulin 3.1 gm/dl (2.5-4.0); Potassium 3.3 mmol/L (3.5-5.1); Total Protein 7.7 gm/dl (6.0-8.3)
--- NOTE | 2022-11-11 21:44 | Emergency Department Note ---
Impression & Plan Hypertensive emergency, Nausea & vomiting, Headache, Elevated troponin ED Provider Note Provider: Luis Antonio Forrester MD DATE OF SERVICE: 11/11/2022 CHIEF COMPLAINT: Chest pain, high blood pressure, headache, nausea and vomiting HISTORY OF PRESENT ILLNESS: Patient is a 57-year-old female history of hypertension, cyclic vomiting syndrome, CAD, and by report recent CVA discharged from [facility] today presenting via ambulance from her home today. at bedside. Patient only got home and again experienced nausea and vomiting. Had a transient episode of chest pain improved with nitroglycerin. This has resolved. Complaining of significant head pain now. States she threw up her home evening medications including her clonidine. Blood pressure has been elevated at x2. Still feeling a bit dizzy at some point. No falls reported. Denies significant abdominal pain. Patient does endorse some light sensitivity PAST MEDICAL HISTORY: As noted above MEDICATIONS: Reviewed home medication discharge summary from [place] today. SOCIAL HISTORY: Lives with , marijuana use PHYSICAL EXAM: GENERAL: alert and oriented in no acute distress on stretcher Head: normocephalic and atraumatic EYES: No injection, discharge or icterus. PERRL, EOMI. NECK: Trachea midline. Supple. ENT: Mucous membranes pink and moist. Pharynx without erythema or exudate. LUNGS: Airway patent. No retractions. Breath sounds clear with good air entry bilaterally. HEART: Regular rate and rhythm. No chest wall tenderness ABDOMEN: Soft and non-tender, without guarding or rebound. SKIN: Acyanotic, warm, dry, without rashes EXTREMITIES: Without swelling, tenderness or deformity NEUROLOGICAL: No focal deficits. No aphasia. No facial droop or slurred speech. Normal strength and tone in the extremities. Sensation to gross touch normal. EK bpm normal sinus rhythm. No PVC or PAC. No acute ST segment elevation or depression with a QTc of 426. CONTINUOUS CARDIAC MONITORING: was ordered and showed a heart rate of 70s-90s bpm in normal sinus rhythm Patient's laboratory studies and imaging reviewed. Differential includes Benign hypertension, hypertensive emergency, cardiov ascular pathology, toxicologic, pheochromocytoma, electrolyte abnormality, renal disease, endorgan damage, as well as other pathologies. IMPRESSION/MEDICAL DECISION MAKING: Patient with history of uncontrolled hypertension and times in the past press. History of seizures. Given evening dose of Keppra IV as she vomited. EKG and troponin sent given transient episode of chest pain earlier but chest pain has now resolved. Lower suspicion for acute ACS. Complaining of significant head pain. Is anticoagulated at baseline. Will order CT of the head but no focal deficits. Blood pressure very elevated and given IV dose of labetalol and will try to get clonidine to her orally if able and a bit. Attempted get outside records. Blood work here with slight leukocytosis unclear etiology. Mild anemia. Mild hypokalemia. Renal function stable. Troponin is elevated at 37.4 today. Question if this is more of a demand situation related to hypertensive urgency/emergency. Headaches improving nausea is improved. 's questions if symptoms are related to some environmental exposure from when they were young as multiple people have similar symptoms versus an MS medication used to be on. In any event given the slight troponin elevation with his severe hypertension requires further care and monitoring here. DIAGNOSIS: Hypertensive emergency, headache, nausea and vomiting, elevated troponin DISPOSITION: Hospitalist will evaluate Patient was agreeable with this plan. Past Med/Surg History Medical History Anxiety disorder CAD (coronary artery disease) Cannabinoid hyperemesis syndrome Carotid stenosis Cervical disc disorder Cyclic vomiting syndrome Cyclic vomiting syndrome Depression GERD (gastroesophageal reflux disease) History of COVID-19 History of diverticulitis of colon HTN (hypertension) Hypercalcemia Hyperlipidemia Hypertension Hypokalemia Hypophosphatemia Ischemia of right lower extremity Multiple thyroid nodules NSTEMI (non-ST elevated myocardial infarction) Obstructive sleep apnea Peripheral arterial disease Posterior reversible encephalopathy syndrome (PRES) Postoperative nausea Prediabetes PRES (posterior reversible encephalopathy syndrome) Proteinuria Pulmonary emphysema Renal artery stenosis Seizure Seizures Tachycardia Takotsubo cardiomyopathy Transient cerebrovascular ischemia Upper gastrointestinal bleed Surgical History H/O cervical spine surgery History of anesthesia reaction History of cardiac cath History of cataract surgery History of esophagogastroduodenoscopy (EGD) History of hernia surgery History of hysterectomy History of ovarian cystectomy History of tooth extraction S/P aortobifemoral bypass surgery Status post surgery Family History Father Family history of stomach cancer Malignant neoplasm of esophagus Stomach cancer Myocardial infarction Stroke Uncle Throat cancer Family history of cancer Grandmother (Maternal) Bone cancer Breast cancer Mother No problems noted. Brother Lung cancer Other Family history of diabetes mellitus No family history of adverse response to anesthesia No pertinent family history Denies family history of Colon cancer Ovarian cancer Prostate cancer Crohn's disease IBD (inflammatory bowel disease) Social History Smoking Status: Former smoker packs per day: 2; Second Hand Exposure: No; Hx Alcohol Use: No Hx Substance Use: Yes Last Used Substance Other:: PATIENT STATES THAT SHE USES MARIJUANA 3-4X YEAR FOR PAIN Substance Use Type Other:: medical card > flower Preferred Language: Argentine Communication Ability: Effective Visual Impairment: No Limitations Hearing Ability: Normal Hosiery Operator Required: No Beliefs That Will Affect Care: None marital status: Current Living Situation: Spouse Current Living Situation Comment: [place] current occupational status: employed 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 Feels Safe at Home: Yes Childhood Exposure to Second-Hand Smoke: Yes caffeine: Yes (1 cup of coffee) during the past year weight has: other Dental Care, Regularly: No Physical Activity Frequency: Daily Physical Activity Frequency Comment: walking Seatbelt Use: always Sunscreen Use: Yes Assistive Devices: None Allergies Allergies Allergy/AdvReac Type Severity Reaction Status Date / Time napoles Allergy Intermediate Hives Verified 09/25/22 07:01 (green/hartman beans) doxycycline Allergy Intermediate Hives, Verified 09/25/22 07:01 vomiting Iodinated Contrast Media Allergy Intermediate Large Verified 09/25/22 07:01 hives, vomiting, "feeling hot" iodine Allergy Intermediate Hives, Verified 09/25/22 07:01 vomiting latex Allergy Intermediate Rash Verified 09/25/22 07:01 loperamide Allergy Intermediate Hives, Verified 09/25/22 07:01 vomiting meperidine Allergy Intermediate Hives, Verified 09/25/22 07:01 vomiting strawberry Allergy Intermediate Hives Verified 09/25/22 07:01 tomato Allergy Intermediate Hives Verified 09/25/22 07:01 prochlorperazine Allergy Mild N/V, Verified 09/25/22 07:01 itchiness Home Meds Home Medications Medication Instructions Recorded Confirmed multivitamin 1 tab PO QAM 12/16/18 11/11/22 rosuvastatin 40 mg tablet (Crestor) 40 mg PO HS 09/11/21 11/11/22 Medical Marijuana 1 dose PO DIRECTED PRN Pain 09/12/22 11/11/22 losartan 50 mg tablet 50 mg PO DAILY 09/25/22 11/11/22 meclizine 25 mg tablet 25 mg PO UD PRN as directed 11/11/22 11/11/22 Previous Rx's Medication Instructions Recorded ondansetron HCl 4 mg tablet 4 mg PO Q8H PRN nausea and 12/18/21 vomiting #20 tabs pantoprazole 40 mg tablet,delayed 40 mg PO BID #180 tabs 03/27/22 release amitriptyline 25 mg tablet 25 mg PO HS #90 tabs 05/31/22 clopidogrel 75 mg tablet (Plavix) 75 mg PO HS #90 tabs 06/17/22 cholecalciferol (vitamin D3) 50 2,000 unit PO HS #90 tabs 07/03/22 mcg (2,000 unit) tablet venlafaxine 150 mg 150 mg PO QAM #90 caps 07/03/22 capsule,extended release 24 hr Auto Titrating CPAP #1 ea 07/15/22 levetiracetam 1,000 mg tablet 1,000 mg PO BID #180 tabs 10/02/22 (Keppra) metoprolol succinate 50 mg 50 mg PO DAILY #90 tabs 10/02/22 tablet,extended release 24 hr apixaban 2.5 mg tablet 2.5 mg PO BID #180 tabs 10/22/22 ipratropium 20 mcg-albuterol 100 1 puff inhalation Q6H #4 grams 10/31/22 mcg/actuation mist for inhalation (Combivent Respimat) clonidine HCl 0.1 mg tablet 0.1 mg PO BID 3 months #180 tabs 11/08/22 Results & Data (ED) Vital Signs Vital Signs - 24 hr 11/11/22 19:48 11/11/22 19:55 11/11/22 20:00 Temperature 36.5 C 36.5 C Temperature Source Oral Oral Pulse Rate 93 H 111 H Pulse Rate [Apical] 93 H Pulse Rate from SpO2 Sensor 118 H Pulse Rhythm [Apical] Regular Respiratory Rate 22 22 16 Respiratory Effort / Characteristics Non-Labored Spontaneous Non-Labored Spontaneous Respiratory Depth Normal Normal Blood Pressure 166/125 H 176/126 H Blood Pressure [Right Arm] 166/125 H Blood Pressure Mean 138 142 Blood Pressure Mean [Right Arm] 138 Blood Pressure Position Lying Blood Pressure Position [Right Arm] Lying Pulse Oximetry 95 95 98 Oxygen Delivery Method Room Air Room Air Room Air Sepsis Recent Fever Within 48 Hours No Sepsis New/Unexplained Change in Mental Status N/A Sepsis Action Taken by Nursing No Action Required 11/11/22 20:00 11/11/22 21:05 11/11/22 20:15 Temperature Temperature Source Pulse Rate 120 H 91 H 109 H Pulse Rate [Apical] Pulse Rate from SpO2 Sensor 104 H Pulse Rhythm [Apical] Respiratory Rate 18 14 Respiratory Effort / Characteristics Respiratory Depth Blood Pressure Blood Pressure [Right Arm] Blood Pressure Mean Blood Pressure Mean [Right Arm] Blood Pressure Position Blood Pressure Position [Right Arm] Pulse Oximetry 98 97 Oxygen Delivery Method Sepsis Recent Fever Within 48 Hours Sepsis New/Unexplained Change in Mental Status Sepsis Action Taken by Nursing 11/11/22 20:30 11/11/22 20:45 11/11/22 21:00 Temperature Temperature Source Pulse Rate 76 115 H Pulse Rate [Apical] Pulse Rate from SpO2 Sensor 75 114 H Pulse Rhythm [Apical] Respiratory Rate 14 20 Respiratory Effort / Characteristics Respiratory Depth Blood Pressure 230/150 H Blood Pressure [Right Arm] Blood Pressure Mean 176 Blood Pressure Mean [Right Arm] Blood Pressure Position Blood Pressure Position [Right Arm] Pulse Oximetry 96 98 Oxygen Delivery Method Sepsis Recent Fever Within 48 Hours Sepsis New/Unexplained Change in Mental Status Sepsis Action Taken by Nursing 11/11/22 21:00 11/11/22 21:08 11/11/22 21:08 Temperature Temperature Source Pulse Rate 81 105 H Pulse Rate [Apical] Pulse Rate from SpO2 Sensor 87 102 H Pulse Rhythm [Apical] Respiratory Rate 18 20 Respiratory Effort / Characteristics Respiratory Depth Blood Pressure 198/149 H Blood Pressure [Right Arm] Blood Pressure Mean 165 Blood Pressure Mean [Right Arm] Blood Pressure Position Blood Pressure Position [Right Arm] Pulse Oximetry 94 98 Oxygen Delivery Method Sepsis Recent Fever Within 48 Hours Sepsis New/Unexplained Change in Mental Status Sepsis Action Taken by Nursing 11/11/22 21:15 11/11/22 21:22 11/11/22 21:22 Temperature Temperature Source Pulse Rate 95 H 96 H Pulse Rate [Apical] Pulse Rate from SpO2 Sensor 101 H 91 H Pulse Rhythm [Apical] Respiratory Rate 17 16 Respiratory Effort / Characteristics Respiratory Depth Blood Pressure 229/151 H Blood Pressure [Right Arm] Blood Pressure Mean 177 Blood Pressure Mean [Right Arm] Blood Pressure Position Blood Pressure Position [Right Arm] Pulse Oximetry 97 97 Oxygen Delivery Method Sepsis Recent Fever Within 48 Hours Sepsis New/Unexplained Change in Mental Status Sepsis Action Taken by Nursing 11/11/22 21:30 11/11/22 21:30 11/11/22 21:41 Temperature Temperature Source Pulse Rate 100 H Pulse Rate [Apical] Pulse Rate from SpO2 Sensor 95 H Pulse Rhythm [Apical] Respiratory Rate 12 Respiratory Effort / Characteristics Respiratory Depth Blood Pressure 230/131 H 227/136 H Blood Pressure [Right Arm] Blood Pressure Mean 164 166 Blood Pressure Mean [Right Arm] Blood Pressure Position Blood Pressure Position [Right Arm] Pulse Oximetry 96 Oxygen Delivery Method Sepsis Recent Fever Within 48 Hours Sepsis New/Unexplained Change in Mental Status Sepsis Action Taken by Nursing 11/11/22 21:41 11/11/22 21:42 11/11/22 21:42 Temperature Temperature Source Pulse Rate 92 H 99 H Pulse Rate [Apical] Pulse Rate from SpO2 Sensor 94 H Pulse Rhythm [Apical] Respiratory Rate 20 20 Respiratory Effort / Characteristics Respiratory Depth Blood Pressure 187/129 H Blood Pressure [Right Arm] Blood Pressure Mean 148 Blood Pressure Mean [Right Arm] Blood Pressure Position Blood Pressure Position [Right Arm] Pulse Oximetry 95 Oxygen Delivery Method Sepsis Recent Fever Within 48 Hours Sepsis New/Unexplained Change in Mental Status Sepsis Action Taken by Nursing 11/11/22 21:43 11/11/22 21:43 11/11/22 21:45 Temperature Temperature Source Pulse Rate 102 H 101 H Pulse Rate [Apical] Pulse Rate from SpO2 Sensor 98 H 100 H Pulse Rhythm [Apical] Respiratory Rate 22 20 Respiratory Effort / Characteristics Respiratory Depth Blood Pressure 184/121 H Blood Pressure [Right Arm] Blood Pressure Mean 142 Blood Pressure Mean [Right Arm] Blood Pressure Position Blood Pressure Position [Right Arm] Pulse Oximetry 94 97 Oxygen Delivery Method Sepsis Recent Fever Within 48 Hours Sepsis New/Unexplained Change in Mental Status Sepsis Action Taken by Nursing 11/11/22 21:50 11/11/22 21:50 11/11/22 22:08 Temperature Temperature Source Pulse Rate 85 Pulse Rate [Apical] Pulse Rate from SpO2 Sensor 86 83 Pulse Rhythm [Apical] Respiratory Rate 14 21 Respiratory Effort / Characteristics Respiratory Depth Blood Pressure 193/123 H Blood Pressure [Right Arm] Blood Pressure Mean 146 Blood Pressure Mean [Right Arm] Blood Pressure Position Blood Pressure Position [Right Arm] Pulse Oximetry 94 96 Oxygen Delivery Method Sepsis Recent Fever Within 48 Hours Sepsis New/Unexplained Change in Mental Status Sepsis Action Taken by Nursing 11/11/22 22:15 11/11/22 22:18 11/11/22 22:18 Temperature Temperature Source Pulse Rate 94 H 90 Pulse Rate [Apical] Pulse Rate from SpO2 Sensor 95 H 86 Pulse Rhythm [Apical] Respiratory Rate 16 23 Respiratory Effort / Characteristics Respiratory Depth Blood Pressure 206/148 H Blood Pressure [Right Arm] Blood Pressure Mean 167 Blood Pressure Mean [Right Arm] Blood Pressure Position Blood Pressure Position [Right Arm] Pulse Oximetry 97 99 Oxygen Delivery Method Sepsis Recent Fever Within 48 Hours Sepsis New/Unexplained Change in Mental Status Sepsis Action Taken by Nursing 11/11/22 22:30 11/11/22 22:31 11/11/22 22:31 Temperature Temperature Source Pulse Rate 94 H 104 H Pulse Rate [Apical] Pulse Rate from SpO2 Sensor 93 H 104 H Pulse Rhythm [Apical] Respiratory Rate 12 11 L Respiratory Effort / Characteristics Respiratory Depth Blood Pressure 247/185 H Blood Pressure [Right Arm] Blood Pressure Mean 205 Blood Pressure Mean [Right Arm] Blood Pressure Position Blood Pressure Position [Right Arm] Pulse Oximetry 97 99 Oxygen Delivery Method Sepsis Recent Fever Within 48 Hours Sepsis New/Unexplained Change in Mental Status Sepsis Action Taken by Nursing 11/11/22 22:32 11/11/22 22:32 11/11/22 22:45 Temperature Temperature Source Pulse Rate 88 Pulse Rate [Apical] Pulse Rate from SpO2 Sensor 90 Pulse Rhythm [Apical] Respiratory Rate 17 Respiratory Effort / Characteristics Respiratory Depth Blood Pressure 260/146 H 242/134 H Blood Pressure [Right Arm] Blood Pressure Mean 184 170 Blood Pressure Mean [Right Arm] Blood Pressure Position Blood Pressure Position [Right Arm] Pulse Oximetry 99 Oxygen Delivery Method Sepsis Recent Fever Within 48 Hours Sepsis New/Unexplained Change in Mental Status Sepsis Action Taken by Nursing 11/11/22 22:45 11/11/22 22:54 11/11/22 22:54 Temperature Temperature Source Pulse Rate 92 H 99 H Pulse Rate [Apical] Pulse Rate from SpO2 Sensor 88 99 H Pulse Rhythm [Apical] Respiratory Rate 22 23 Respiratory Effort / Characteristics Respiratory Depth Blood Pressure 220/144 H Blood Pressure [Right Arm] Blood Pressure Mean 169 Blood Pressure Mean [Right Arm] Blood Pressure Position Blood Pressure Position [Right Arm] Pulse Oximetry 97 95 Oxygen Delivery Method Sepsis Recent Fever Within 48 Hours Sepsis New/Unexplained Change in Mental Status Sepsis Action Taken by Nursing 11/11/22 23:00 11/11/22 23:00 11/11/22 23:15 Temperature Temperature Source Pulse Rate 88 Pulse Rate [Apical] Pulse Rate from SpO2 Sensor 87 Pulse Rhythm [Apical] Respiratory Rate 13 Respiratory Effort / Characteristics Respiratory Depth Blood Pressure 211/144 H 227/145 H Blood Pressure [Right Arm] Blood Pressure Mean 166 172 Blood Pressure Mean [Right Arm] Blood Pressure Position Blood Pressure Position [Right Arm] Pulse Oximetry 93 Oxygen Delivery Method Sepsis Recent Fever Within 48 Hours Sepsis New/Unexplained Change in Mental Status Sepsis Action Taken by Nursing 11/11/22 23:15 11/11/22 23:30 11/11/22 23:30 Temperature Temperature Source Pulse Rate 88 81 Pulse Rate [Apical] Pulse Rate from SpO2 Sensor 85 82 Pulse Rhythm [Apical] Respiratory Rate 14 21 Respiratory Effort / Characteristics Respiratory Depth Blood Pressure 226/142 H Blood Pressure [Right Arm] Blood Pressure Mean 170 Blood Pressure Mean [Right Arm] Blood Pressure Position Blood Pressure Position [Right Arm] Pulse Oximetry 92 91 Oxygen Delivery Method Sepsis Recent Fever Within 48 Hours Sepsis New/Unexplained Change in Mental Status Sepsis Action Taken by Nursing 11/11/22 23:45 11/11/22 23:45 11/12/22 00:00 Temperature Temperature Source Pulse Rate 90 Pulse Rate [Apical] Pulse Rate from SpO2 Sensor 90 Pulse Rhythm [Apical] Respiratory Rate 18 Respiratory Effort / Characteristics Respiratory Depth Blood Pressure 208/141 H 198/139 H Blood Pressure [Right Arm] Blood Pressure Mean 163 158 Blood Pressure Mean [Right Arm] Blood Pressure Position Blood Pressure Position [Right Arm] Pulse Oximetry 87 L Oxygen Delivery Method Sepsis Recent Fever Within 48 Hours Sepsis New/Unexplained Change in Mental Status Sepsis Action Taken by Nursing 11/12/22 00:00 11/12/22 00:00 11/12/22 00:20 Temperature Temperature Source Pulse Rate 96 H 86 Pulse Rate [Apical] Pulse Rate from SpO2 Sensor 98 H Pulse Rhythm [Apical] Respiratory Rate 21 Respiratory Effort / Characteristics Respiratory Depth Blood Pressure 198/139 H Blood Pressure [Right Arm] Blood Pressure Mean 158 Blood Pressure Mean [Right Arm] Blood Pressure Position Blood Pressure Position [Right Arm] Pulse Oximetry 87 L Oxygen Delivery Method Sepsis Recent Fever Within 48 Hours Sepsis New/Unexplained Change in Mental Status Sepsis Action Taken by Nursing Laboratory Data 11/11/22 19:58 11/11/22 19:58 Lab Results 11/11/22 11/11/22 11/11/22 Range/Units 19:58 19:58 19:58 WBC 14.56 H (4.8-10.8) K/ul RBC 4.29 (4.20-5.40) M/uL Hgb 11.7 L (12.0-16.0) g/dl Hct 35.5 L (37.0-47.0) % MCV 82.8 (80.0-100.0) fL MCH 27.3 (25.0-34.0) pg MCHC 33.0 (32.0-36.0) g/dL RDW Std Deviation 45.5 (36.4-46.3) fL RDW Coeff of Jose Luis 15.0 H (11.5-14.5) % Plt Count 506 H (130-400) K/uL MPV 10.3 (9.4-12.4) fL Immature Gran % (Auto) 0.5 % Neut % (Auto) 73.9 % Lymph % (Auto) 18.1 % [place] % (Auto) 5.6 % Eos % (Auto) 1.1 % Baso % (Auto) 0.8 % Neut # (Auto) 10.76 H (1.40-6.50) K/uL Lymph # (Auto) 2.63 (1.2-3.4) K/uL [place] # (Auto) 0.82 H (0.11-0.59) K/uL Eos # (Auto) 0.16 (0-0.50) K/uL Baso # (Auto) 0.12 (0-0.2) K/uL Immature Gran # (Auto) 0.07 (0.01-0.20) K/uL PT 10.5 (9.0-12.0) Seconds INR 1.0 (0.9-1.1) APTT 23.4 (21.0-31.0) Seconds PTT Ratio 0.9 Sodium 137 (136-145) mmol/L Potassium 3.3 L (3.5-5.1) mmol/L Chloride 104 (98-107) mmol/L Carbon Dioxide 21 (21-32) mmol/L Anion Gap 12 H (3-11) BUN 13 (6-23) mg/dl Creatinine 0.90 (0.6-1.2) mg/dl Est Cr Clr Drug Dosing 76.0 ml/min Est GFR ( Amer) 82.8 ml/min Est GFR (Non-Af Amer) 71.5 ml/min BUN/Creatinine Ratio 14.4 (10-20) Glucose 189 H (70-99(Fasting)) mg/dl Calcium 10.3 (8.6-10.3) mg/dl Total Bilirubin 0.4 (0.2-1.0) mg/dl AST 27 (13-39) U/L ALT 25 (7-52) U/L Alkaline Phosphatase 76 (34-104) U/L Troponin I High Sens 37.4 H (0-14) pg/ml Total Protein 7.7 (6.0-8.3) gm/dl Albumin 4.6 (3.4-5.0) gm/dl Globulin 3.1 (2.5-4.0) gm/dl Albumin/Globulin Ratio 1.5 (0.9-2) SARS-CoV-2, RNA, NAAT (NEGATIVE) 11/11/22 Range/Units 23:38 WBC (4.8-10.8) K/ul RBC (4.20-5.40) M/uL Hgb (12.0-16.0) g/dl Hct (37.0-47.0) % MCV (80.0-100.0) fL MCH (25.0-34.0) pg MCHC (32.0-36.0) g/dL RDW Std Deviation (36.4-46.3) fL RDW Coeff of Jose Luis (11.5-14.5) % Plt Count (130-400) K/uL MPV (9.4-12.4) fL Immature Gran % (Auto) % Neut % (Auto) % Lymph % (Auto) % [place] % (Auto) % Eos % (Auto) % Baso % (Auto) % Neut # (Auto) (1.40-6.50) K/uL Lymph # (Auto) (1.2-3.4) K/uL [place] # (Auto) (0.11-0.59) K/uL Eos # (Auto) (0-0.50) K/uL Baso # (Auto) (0-0.2) K/uL Immature Gran # (Auto) (0.01-0.20) K/uL PT (9.0-12.0) Seconds INR (0.9-1.1) APTT (21.0-31.0) Seconds PTT Ratio Sodium (136-145) mmol/L Potassium (3.5-5.1) mmol/L Chloride (98-107) mmol/L Carbon Dioxide (21-32) mmol/L Anion Gap (3-11) BUN (6-23) mg/dl Creatinine (0.6-1.2) mg/dl Est Cr Clr Drug Dosing ml/min Est GFR ( Amer) ml/min Est GFR (Non-Af Amer) ml/min BUN/Creatinine Ratio (10-20) Glucose (70-99(Fasting)) mg/dl Calcium (8.6-10.3) mg/dl Total Bilirubin (0.2-1.0) mg/dl AST (13-39) U/L ALT (7-52) U/L Alkaline Phosphatase (34-104) U/L Troponin I High Sens (0-14) pg/ml Total Protein (6.0-8.3) gm/dl Albumin (3.4-5.0) gm/dl Globulin (2.5-4.0) gm/dl Albumin/Globulin Ratio (0.9-2) SARS-CoV-2, RNA, NAAT NEGATIVE (NEGATIVE) Administered Medications Discontinued Medications Clonidine HCl (Clonidine Hcl 0.1 Mg Tab) 0.1 mg PO NOW ONE Stop: 11/11/22 22:12 Last Admin: 11/11/22 22:22 Dose: 0.1 mg Documented By: TONE Levetiracetam 1,000 mg/ Sodium (Chloride) 110 mls @ 440 mls/hr IV NOW STA Stop: 11/11/22 21:50 Last Infusion: 11/11/22 22:51 Dose: 0 mls/hr Documented By: Admin: 11/11/22 22:33 Dose: 440 mls/hr Documented By: BERENICE Labetalol HCl (Labetalol Hcl Iv 5 Mg/Ml 20ml) 10 mg IV NOW STA Stop: 11/11/22 21:33 Last Admin: 11/11/22 21:42 Dose: 10 mg Documented By: TONE Co-signed By: BERENICE Labetalol HCl (Labetalol Hcl Iv 5 Mg/Ml 20ml) 10 mg IV NOW STA Stop: 11/11/22 23:04 Last Admin: 11/11/22 23:15 Dose: 10 mg Documented By: BERENICE Co-signed By: TONE Labetalol HCl (Labetalol Hcl Iv 5 Mg/Ml 20ml) 10 mg IV NOW STA Stop: 11/11/22 23:56 Last Admin: 11/12/22 00:01 Dose: 10 mg Documented By: BERENICE Co-signed By: LAUREN Ondansetron HCl (Ondansetron Inj 2 Mg/Ml 2 Ml Vial) 4 mg IV NOW STA Stop: 11/11/22 21:33 Last Admin: 11/11/22 21:42 Dose: 4 mg Documented By: TONE Imaging Data Radiologist's Impression: Head CT 11/11/22 21:32 Exam(s): CT HEAD Without Contrast EXAM: CT Head Without Intravenous Contrast CLINICAL HISTORY: Reason for exam: headache, vomiting, recent stroke. TECHNIQUE: Axial computed tomography images of the head/brain without intravenous contrast. CTDI is 36.51 mGy and DLP is 537.48 mGy-cm. Automated exposure control was utilized for the study. A dose lowering technique was utilized adhering to the principles of ALARA. COMPARISON: No relevant prior studies available. FINDINGS: Brain: Unremarkable. No hemorrhage. No significant white matter disease. No edema. Ventricles: Unremarkable. No ventriculomegaly. Bones/joints: Unremarkable. No acute fracture. Soft tissues: Unremarkable. Sinuses: Unremarkable as visualized. No acute sinusitis. Mastoid air cells: Unremarkable as visualized. No mastoid effusion. IMPRESSION: Normal head/brain CT. Electronically signed by: Edmond Espino MD 11/11/22 22:23 PM Discharge Plan Visit Data Chief Complaint: Chest Pain Stated Complaint: CHEST PAIN ED Provider: Luis Antonio Forrester Discharge Problem: Hypertensive emergency, Nausea & vomiting, Headache, Elevated troponin Patient Disposition: Being Evaluated by Hospitalist Forms Stand Alone Forms: [facility] Prescriptions Prescriptions: No Action ondansetron HCl 4 mg tablet 4 mg PO Q8H PRN (Reason: nausea and vomiting) Qty: 20 0RF amitriptyline 25 mg tablet 25 mg PO HS Qty: 90 1RF clopidogrel [Plavix] 75 mg tablet 75 mg PO HS Qty: 90 1RF Patient Comments: PER DR PERSON OFFICE, TOLD TO STOP 7 DAYS BEFORE PROCEDURE apixaban 2.5 mg tablet 2.5 mg PO BID Qty: 180 1RF Combivent Respimat 20-100 mcg/actuation mist 1 puff inhalation Q6H Qty: 4 3RF clonidine HCl 0.1 mg tablet 0.1 mg PO BID 90 Days Qty: 180 1RF Rx Instructions: Take if systolic BP is >160, diastolic BP >100- TAKE UP TO FOUR TIMES DAILY IF NEEDED PER PT venlafaxine 150 mg capsule,extended release 24hr 150 mg PO QAM Qty: 90 1RF cholecalciferol (vitamin D3) 50 mcg (2,000 unit) tablet 2,000 unit PO HS Qty: 90 1RF (DME) Auto Titrating CPAP Misc See Rx Instructions .ROUTE .MEDSUPPLY Qty: 1 0RF Rx Instructions: As directed Nightly metoprolol succinate 50 mg tablet extended release 24 hr 50 mg PO DAILY Qty: 90 3RF levetiracetam [Keppra] 1,000 mg tablet 1,000 mg PO BID Qty: 180 1RF pantoprazole 40 mg tablet,delayed release (DR/EC) 40 mg PO BID Qty: 180 2RF multivitamin Tablet 1 tab PO QAM Medical Marijuana 1 dose PO DIRECTED PRN (Reason: Pain) losartan 50 mg Tablet 50 mg PO DAILY meclizine 25 mg tablet 25 mg PO UD PRN (Reason: as directed) rosuvastatin [Crestor] 40 mg Tablet 40 mg PO HS Referrals Referrals: Teena Killian DO [Primary Care Provider] -
[2022-11-11 21:46] LABS: Troponin I High Sensitivity 37.4 pg/ml (0-14)
[2022-11-11 21:57] LABS: Partial Thromboplastin Ratio 0.9; Partial Thromboplastin Time 23.4 Seconds (21.0-31.0); Prothrombin Time 10.5 Seconds (9.0-12.0)
[2022-11-11] MEDS ORDERED: cloNIDine HCL 0.1 MG TAB PO ONE (22:11)
--- NOTE | 2022-11-11 22:24 | CT Scan Report ---
Exam(s): CT HEAD Without Contrast EXAM: CT Head Without Intravenous Contrast CLINICAL HISTORY: Reason for exam: headache, vomiting, recent stroke. TECHNIQUE: Axial computed tomography images of the head/brain without intravenous contrast. CTDI is 36.51 mGy and DLP is 537.48 mGy-cm. Automated exposure control was utilized for the study. A dose lowering technique was utilized adhering to the principles of ALARA. COMPARISON: No relevant prior studies available. FINDINGS: Brain: Unremarkable. No hemorrhage. No significant white matter disease. No edema. Ventricles: Unremarkable. No ventriculomegaly. Bones/joints: Unremarkable. No acute fracture. Soft tissues: Unremarkable. Sinuses: Unremarkable as visualized. No acute sinusitis. Mastoid air cells: Unremarkable as visualized. No mastoid effusion. IMPRESSION: Normal head/brain CT. Electronically signed by: Edmond Espino MD 11/11/22 22:23 PM
--- NOTE | 2022-11-11 23:55 | History & Physical Report ---
Date of Service November 11, 2022 Assessment & Plan (1) Hypertensive emergency: Plan: 57 F with past medical history of hypertension (on losartan, metoprolol), with PRES, CAD (NSTEMI), cyclic vomiting, seizures (on Keppra), hyperlipidemia, anxiety, and depression who presented to the hospital, following recent discharge from outside hospital for CVA, with hyperemesis, headache, and chest pain. Now admitted to the hospital for management of hypertensive crisis, hy peremesis, elevated troponin, and headache. Hypertensive crisis/hypertension -Chronic hypertension managed on losartan, metoprolol. -BP 220/140s discovered on admission. Refractory s/p IV labetalol 10 mg x 2 doses, p.o. clonidine in the ED. -Patient largely asymptomatic, save for headache well-controlled with Tylenol. -S/p additional IV labetalol 10 mg x1 dose on admission. -BP at time of transfer to the floor 100s/80s. -Request made for records from recent stay at [facility] (per patient, for CVA). * Admit to MedSur telemetry * Holding home metoprolol, losartan, clonidine following acute drop in BP * Renal artery Doppler, serum renin, serum aldosterone ordered. Appreciate results. * Vascular surgery consult placed for evaluation/assessment of PAD (s/p shanna ofemoral graft), documented renal artery stenosis on CTA abdomen 11/01/2021. Appreciate recommendations. * Cardiology consult placed. Appreciate recommendations. * Trend electrolytes. Replete as needed. Vomiting/cyclic vomiting/cannabis hyperemesis syndrome -Chronic, presumed secondary to chronic cannabis use. Managed with as needed Zofran. -No GI pathology seen on last EGD done in 2019. * IV Zofran 4 mg every 4 hours as needed for nausea. * IV Protonix 40 mg twice daily Elevated troponin -History of CAD (s/p NSTEMI) -Troponin 37.4 on admission. -Per ED HPI, patient reported chest pain resolved with sublingual nitroglycerin. No chest pain reported on admission. Suspect demand ischemia. -Patient follows [facility] evp of products & co founder, Dr. Rodriguez. mentioned she was scheduled for heart monitor placement tomorrow. Reviewed [facility] chart: No visit scheduled for November. Next cardiology appointment in January. -Last echocardiogram performed 01/14/2022 normal (EF = 60-65%; no wall motion abnormalities, no valvular stenosis or insufficiency). * Trend troponin every 6 hours x4 * Cardiology consult placed. Appreciate recommendations Headache -05/13 prior to admission. + Light sensitivity. No history of migraine per review of chart. -CT head negative for hemorrhage or ischemia. -Well-controlled on IV Tylenol. * Tylenol 1000 mg p.o. every 8 hours Seizure disorder -Chronically managed on Keppra 1000 mg twice daily. * Continue home regimen. REBECCA -Patient has CPAP machine at home. * CPAP at bedtime as needed Anxiety * Continue home regimen Code: Full code Dispo: Med-Surg telemetry FEN/GI: NPO. LR mIVF DVT Prophylaxis: Home Plavix PT/OT: Consults: Vascular, cardiology (2) Nausea & vomiting: (3) Headache: (4) Elevated troponin: (5) Seizure disorder: (6) Hypertension: (7) Cyclic vomiting syndrome: (8) Peripheral arterial disease: (9) Obstructive sleep apnea: (10) GERD (gastroesophageal reflux disease): (11) CAD (coronary artery disease): History of Present Illness Primary Care Provider: DO Cyndie Romero is a 57-year-old woman with past medical history of CAD (s/p NSTEMI in 2017), hyperlipidemia, hypertension (PRES in 2019), seizure disorder (following PRES, on Keppra), GERD, PAD (s/p iliofemoral bypass graft), anxiety/depression, who presents to the emergency room with a complaint of intractable vomiting, severe headache, and chest pain. Per patient and her , patient suffered recent CVA and was discharged from [facility] today. Patient got home and started throwing up. Chest pain resolved following administration of sublingual nitroglycerin. ROS + light sensitivity. She denies abdominal pain. In the ED, vitals were notable for BP of 166/125. Rest of vitals within normal limits. BP rapidly increased, peaking at 260 systolic/[address] n egative for ischemic or hemorrhagic infarct. Troponin elevated at 37.4. She received IV labetalol 10 mg x 2 doses and p.o. clonidine 0.1 mg x 1, however, BP remained elevated. On admission, she received additional IV labetalol 10 mg x 1 dose and was then transferred to the floor, where on arrival, BP was measured at 100/70. On recheck, BP recorded at 115/82, where she remained. Allergies Allergy/AdvReac Type Severity Reaction Status Date / Time napoles Allergy Intermediate Hives Verified 09/25/22 07:01 (green/hartman beans) doxycycline Allergy Intermediate Hives, Verified 09/25/22 07:01 vomiting Iodinated Contrast Media Allergy Intermediate Large Verified 09/25/22 07:01 hives, vomiting, "feeling hot" iodine Allergy Intermediate Hives, Verified 09/25/22 07:01 vomiting latex Allergy Intermediate Rash Verified 09/25/22 07:01 loperamide Allergy Intermediate Hives, Verified 09/25/22 07:01 vomiting meperidine Allergy Intermediate Hives, Verified 09/25/22 07:01 vomiting strawberry Allergy Intermediate Hives Verified 09/25/22 07:01 tomato Allergy Intermediate Hives Verified 09/25/22 07:01 prochlorperazine Allergy Mild N/V, Verified 09/25/22 07:01 itchiness Home Medications Medication Instructions Recorded Confirmed Type multivitamin 1 tab PO QAM 12/16/18 11/11/22 History rosuvastatin 40 mg tablet (Crestor) 40 mg PO HS 09/11/21 11/11/22 History ondansetron HCl 4 mg tablet 4 mg PO Q8H PRN nausea and 12/18/21 11/11/22 Rx vomiting #20 tabs pantoprazole 40 mg tablet,delayed 40 mg PO BID #180 tabs 03/27/22 11/11/22 Rx release amitriptyline 25 mg tablet 25 mg PO HS #90 tabs 05/31/22 11/11/22 Rx clopidogrel 75 mg tablet (Plavix) 75 mg PO HS #90 tabs 06/17/22 11/11/22 Rx cholecalciferol (vitamin D3) 50 2,000 unit PO HS #90 tabs 07/03/22 11/11/22 Rx mcg (2,000 unit) tablet venlafaxine 150 mg 150 mg PO QAM #90 caps 07/03/22 11/11/22 Rx capsule,extended release 24 hr Auto Titrating CPAP #1 ea 07/15/22 10/02/22 Rx Medical Marijuana 1 dose PO DIRECTED PRN Pain 09/12/22 11/11/22 History losartan 50 mg tablet 50 mg PO DAILY 09/25/22 11/11/22 History levetiracetam 1,000 mg tablet 1,000 mg PO BID #180 tabs 10/02/22 11/11/22 Rx (Keppra) metoprolol succinate 50 mg 50 mg PO DAILY #90 tabs 10/02/22 11/11/22 Rx tablet,extended release 24 hr apixaban 2.5 mg tablet 2.5 mg PO BID #180 tabs 10/22/22 11/11/22 Rx ipratropium 20 mcg-albuterol 100 1 puff inhalation Q6H #4 grams 10/31/22 11/11/22 Rx mcg/actuation mist for inhalation (Combivent Respimat) clonidine HCl 0.1 mg tablet 0.1 mg PO BID 3 months #180 tabs 11/08/22 11/11/22 Rx meclizine 25 mg tablet 25 mg PO UD PRN as directed 11/11/22 11/11/22 History Past Med/Surg History Medical History Anxiety disorder CAD (coronary artery disease) Mild-moderate non-obstructive CAD per 2017 cardiac cath Cannabinoid hyperemesis syndrome Carotid stenosis < 50% stenosis B/L per US 12/16/18 Cervical disc disorder Full ROM per pt Cyclic vomiting syndrome Cyclic vomiting syndrome no GI pathology on EGD, US, CT of abd/pelvis, celiac testing and GES per 04/2020 GI consult: biliary w/u and upper GI study recommended (upper GI study neg per d/c summary), cannabis cessation, continue Protonix and prn Zofran > currently controlled Depression GERD (gastroesophageal reflux disease) History of COVID-19 03/18/22, pcr [facility], hospitalized day after diagnosis due to vomiting blood, discharged on 03/22/22; fever, vomiting, body chills and aches, diarrhea > resolved currently. 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 Maynard Posterior reversible encephalopathy syndrome (PRES) Postoperative nausea Prediabetes diet controlled PRES (posterior reversible encephalopathy syndrome) has since caused seizures that started in 2018. following with PCP, last seizure per pt 08/2019 per PCP records Proteinuria Pulmonary emphysema well controlled per pt Renal artery stenosis following with Dr Maynard Seizure Seizures 2019 r/t hypertensive emergency > encephalopathy. last seizure 2019 Tachycardia Takotsubo cardiomyopathy 2016. Admitted [facility], full cardiac workup including cath. EF at the time 40%, now subsequent echos. Follows with Dr. Rodriguez Transient cerebrovascular ischemia Per records, pt unaware Upper gastrointestinal bleed 2021, resolved Surgical History H/O cervical spine surgery ACDF C4-7 Dr. [place]: Grade 1 view, Bojorquez#2 and ETT#7.5 atraumatic x 1. No issues per anesthesia postop progress note. ROM WNL History of anesthesia reaction Low O2 sats during colonoscopy 04/2022 at [facility] and post-procedure elevated BP. Per post-op anesthesia progress note, O2 96-100% RA and "Pt has increased BP 2ndary to abdominal pain. Pt also has nausea w/ dry heaves. Pt to have CT scan per Dr Patten." History of cardiac cath 2017 > no stents History of cataract surgery bilat History of esophagogastroduodenoscopy (EGD) History of hernia surgery right inguinal hernia repair History of hysterectomy History of ovarian cystectomy History of tooth extraction S/P aortobifemoral bypass surgery Sep 2021 [facility] Status post surgery RLE thrombectomy Family History Father Family history of stomach cancer Malignant neoplasm of esophagus Stomach cancer Myocardial infarction Stroke Uncle Throat cancer Family history of cancer FAMILY HISTORY OF CANCER - UNCLE - VOCAL [place] FAMILY HISTORY OF CANCER - AUNT - ? KIND Grandmother (Maternal) Bone cancer Breast cancer Mother No problems noted. Brother Lung cancer Other Family history of diabetes mellitus No family history of adverse response to anesthesia No pertinent family history Denies family history of Colon cancer Ovarian cancer Prostate cancer Crohn's disease IBD (inflammatory bowel disease) Social History Smoking Status: Former smoker packs per day: 2; Second Hand Exposure: No; Hx Alcohol Use: No Hx Substance Use: No Preferred Language: French Communication Ability: Unable Visual Impairment: No Limitations Hearing Ability: Normal Waiter/Waitress First Class Required: No Beliefs That Will Affect Care: None marital status: Current Living Situation: Spouse Current Living Situation Comment: [place] current occupational status: employed current occupation: [employer] Feels Safe at Home: Yes Childhood Exposure to Second-Hand Smoke: Yes caffeine: Yes (1 cup of coffee) during the past year weight has: other Dental Care, Regularly: No Physical Activity Frequency: Daily Physical Activity Frequency Comment: walking Seatbelt Use: always Sunscreen Use: Yes Assistive Devices: Cane and Walker Review of Systems Review of Systems: All systems reviewed & are unremarkable except as noted in HPI & below Physical Exam Physical Exam: General: No acute distress HEENT: PERRLA. Normal conjunctiva, anicteric sclera. Oropharynx normal. Respiratory: Normal respiratory effort, CTABL. Cardiovascular: RRR without murmurs, gallops, or rubs. No edema. GI: Soft abdomen with normal bowel sounds heard on auscultation. Nontender x4 quadrants Neuro: Alert and oriented x3. Results & Data Results & Data Vital Signs (Past 12 Hours) Vital Signs Temp Pulse Pulse Resp BP BP Pulse Ox 11/11/22 23:30 81 21 91 11/11/22 23:30 226/142 H 11/11/22 23:15 88 14 92 11/11/22 23:15 227/145 H 11/11/22 23:00 88 13 93 11/11/22 23:00 211/144 H 11/11/22 22:54 220/144 H 11/11/22 22:54 99 H 23 95 11/11/22 22:45 92 H 22 97 11/11/22 22:45 242/134 H 11/11/22 22:32 88 17 99 11/11/22 22:32 260/146 H 11/11/22 22:31 104 H 11 L 99 11/11/22 22:31 247/185 H 11/11/22 22:30 94 H 12 97 11/11/22 22:18 206/148 H 11/11/22 22:18 90 23 99 11/11/22 22:15 94 H 16 97 11/11/22 22:08 21 96 11/11/22 21:50 85 14 94 11/11/22 21:50 193/123 H 11/11/22 21:45 101 H 20 97 11/11/22 21:43 184/121 H 11/11/22 21:43 102 H 22 94 11/11/22 21:42 187/129 H 11/11/22 21:42 99 H 20 11/11/22 21:41 92 H 20 95 11/11/22 21:41 227/136 H 11/11/22 21:30 100 H 12 96 11/11/22 21:30 230/131 H 11/11/22 21:22 96 H 16 97 11/11/22 21:22 229/151 H 11/11/22 21:15 95 H 17 97 11/11/22 21:08 105 H 20 98 11/11/22 21:08 198/149 H 11/11/22 21:00 81 18 94 11/11/22 21:00 230/150 H 11/11/22 20:45 115 H 20 98 11/11/22 20:30 76 14 96 11/11/22 20:15 109 H 14 97 11/11/22 21:05 91 H 18 98 11/11/22 20:00 120 H 11/11/22 20:00 111 H 16 176/126 H 98 11/11/22 19:55 36.5 C 93 H 22 166/125 H 95 11/11/22 19:48 36.5 C 93 H 22 166/125 H 95 O2 Del Method 11/11/22 23:30 11/11/22 23:30 11/11/22 23:15 11/11/22 23:15 11/11/22 23:00 11/11/22 23:00 11/11/22 22:54 11/11/22 22:54 11/11/22 22:45 11/11/22 22:45 11/11/22 22:32 11/11/22 22:32 11/11/22 22:31 11/11/22 22:31 11/11/22 22:30 11/11/22 22:18 11/11/22 22:18 11/11/22 22:15 11/11/22 22:08 11/11/22 21:50 11/11/22 21:50 11/11/22 21:45 11/11/22 21:43 11/11/22 21:43 11/11/22 21:42 11/11/22 21:42 11/11/22 21:41 11/11/22 21:41 11/11/22 21:30 11/11/22 21:30 11/11/22 21:22 11/11/22 21:22 11/11/22 21:15 11/11/22 21:08 11/11/22 21:08 11/11/22 21:00 11/11/22 21:00 11/11/22 20:45 11/11/22 20:30 11/11/22 20:15 11/11/22 21:05 11/11/22 20:00 11/11/22 20:00 Room Air 11/11/22 19:55 Room Air 11/11/22 19:48 Room Air Supervising Physician Co-Signing Physician Notes Attending addendum: I have physically seen this patient, have supervised the medical residents activities, and agree with the H&P unless as otherwise noted. Assessment and Plan: Uncontrolled hypertension/history of PRES/CAD/hypertension/elevated troponin- The patient will be admitted to telemetry for serial cardiac enzymes, serial EKG's, cardiac rhythm monitoring and a 2-D echocardiogram with Dopplers. Initial blood pressure 220/1 40s which seem to be resistant to 10 mg IV labetalol x2 and oral clonidine 0.1 mg, did break 100/80's Have ordered renal artery Doppler, his serum renin and aldosterone levels pending If blood pressure elevates again may need to have assessment for serum catecholamines and urine metanephrines along with urine 5-HIAA Elevated troponin likely secondary to increased heart rate, type II [place] supply demand mismatch Cannabinol hyperemesis syndrome- Do not think this is a cyclic vomiting diagnosis per se Patient needs to stop marijuana use Zofran 4 mg IV every 6 hours as needed Pantoprazole 40 mg IV daily Likely, at least in part, a trigger of elevated blood pressure Seizure disorder- Continue Keppra 1000 mg p.o. twice daily Obstructive sleep apnea- CPAP at bedtime Remaining orders and notations as noted Urine drug screen ordered Resident Activity Tracking Resident Involvement: Resident Care Provided Care Provided: Adult Hospital Medicine (11) CAD (coronary artery disease) Associated angina: without angina Coronary Disease-Associated Artery/Lesion type: [place] artery [place] vs. transplanted heart: [place] heart Qualified Code(s): I25.10 - Atherosclerotic heart disease of [place] coronary artery without angina pectoris
[2022-11-12] MEDS ORDERED: LOSARTAN POTASSIUM 25 MG TAB PO STA (00:47)
[2022-11-12 01:03] LABS: Magnesium 1.7 mg/dl (1.7-2.4)
[2022-11-12] MEDS ORDERED: ACETAMINOPHEN 1,000 MG/100 ML VIAL IV STA (03:29)
[2022-11-12] MEDS: ONDANSETRON INJ 2 MG/ML 2 ML VIAL IV PRN ×2 (03:53→12:18)
[2022-11-12] MEDS: POTASSIUM CHLORIDE / WTR 10 MEQ/100 ML PLCT IV SCH ×4 (04:17→07:49)
[2022-11-12 04:29] LABS: Hemoglobin 11.6 g/dl (12.0-16.0); Mean Corpuscular Hemoglobin 27.2 pg (25.0-34.0); Mean Corpuscular Hgb Conc 32.2 g/dL (32.0-36.0); Mean Corpuscular Volume 84.3 fL (80.0-100.0); Mean Platelet Volume 10.1 fL (9.4-12.4); Platelet Count 402 K/uL (130-400); RDW Coefficient of Variation 15.1 % (11.5-14.5); RDW Standard Deviation 45.5 fL (36.4-46.3); Red Blood Count 4.27 M/uL (4.20-5.40); White Blood Count 9.46 K/ul (4.8-10.8)
[2022-11-12] MEDS: MAGNESIUM SULFATE / D5W 1 GM/100 ML BAG IV SCH ×2 (04:30→06:30)
[2022-11-12 04:47] LABS: BUN Creatinine Ratio 14.4 (10-20); Calcium 9.7 mg/dl (8.6-10.3); Est GFR (African American) 82.8 ml/min; Est GFR (Non-African American) 71.5 ml/min; Magnesium 1.8 mg/dl (1.7-2.4); Phosphorus 4.7 mg/dl (2.5-4.9); Potassium 3.4 mmol/L (3.5-5.1)
[2022-11-12 04:52] LABS: Troponin I High Sensitivity 30.9 pg/ml (0-14)
[2022-11-12] MEDS ORDERED: LACTATED RINGER'S 1,000 ML IV SCH (05:00)
[2022-11-12 06:38] LABS: Estimated Average Glucose 140 mg/dl; Hemoglobin A1C 6.5 % (4.5-5.6)
[2022-11-12] MEDS ORDERED: Nursing to Pharmacy Communication SCH (06:45)
--- NOTE | 2022-11-12 07:07 | XRay Report ---
SINGLE VIEW CHEST CLINICAL HISTORY: Atypical chest pain. FINDINGS: 2 AP, portable, upright chest radiographs are compared to study dated 09/17/2022. The cardio mediastinal silhouette is unremarkable. The lungs and pleural spaces are clear noting mild dependent atelectasis. No pneumothorax is seen. The skeletal structures are osteopenic. There are chronic/heale d right-sided rib fractures. Fusion hardware is noted in the lower cervical spine. IMPRESSION: No active disease in the chest. ACT 112: Negative or not required by law. Electronically signed by: Armin Sylvester M.D. 11/12/2022 7:06 AM
--- NOTE | 2022-11-12 07:35 | Hospitalist Progress Note ---
Date of Service November 12, 2022 Assessment & Plan (1) Hypertensive emergency: Plan: 57 F with past medical history of hypertension (on losartan, metoprolol), with PRES, CAD (NSTEMI), cyclic vomiting, seizures (on Keppra), hyperlipidemia, anxiety, and depression who presented to the hospital, following recent discharge from outside hospital for CVA, with hyperemesis, headache, and chest pain. Now admitted to the hospital for management of hypertensive crisis, hy peremesis, elevated troponin, and headache. Hypertensive crisis/hypertension Cerebellar dysfunction/ataxia -Chronic hypertension managed on losartan, metoprolol. -BP 220/140s discovered on admission. Refractory s/p IV labetalol 10 mg x 2 doses, p.o. clonidine in the ED. -Patient largely asymptomatic, save for headache well-controlled with Tylenol. -S/p additional IV labetalol 10 mg x1 dose on admission. -BP at time of transfer to the floor 100s/80s. -Request made for records from recent stay at [facility] (per patient, for CVA). -Home metoprolol, losartan, and clonidine were held on admission due to low blood pressures after receiving IV labetalol. -Renal artery Doppler did not show any significant renal stenosis. -Renin and serum aldosterone pending. -Vascular surgery and cardiology was consulted, appreciate recommendations. --Vascular surgery states no vascular surgical intervention needed at this time. Should follow-up as an outpatient in December 2022. --Cardiology recommends to continue Plavix and to increase her Eliquis to 5 mg twice daily. As well as a 30-day monitor technician which will be set up through cardiology. -Patient's symptoms improved with Ativan. Most likely hypertensive crisis/vertigo is due to underlying cerebellum dysfunction/ataxia secondary to recent cerebellar CVA. -We will continue on Ativan 0.5 mg 3 times daily and monitor for symptoms. May consider SSRI for cerebellum dysfunction/ataxia. -We will restart home blood pressure medication in the morning. Status post cerebellar stroke -Patient was seen in [facility] for CVA of the cerebellum on 11/07/2022. -Recommended outpatient vestibular therapy for vertigo. -Vertigo well controlled with Ativan at this time. Should be in conjunction with vestibular therapy at time of discharge. Vomiting/cyclic vomiting/cannabis hyperemesis syndrome -Chronic, presumed secondary to chronic cannabis use. Managed with as needed Zofran. -No GI pathology seen on last EGD done in 2019. -IV Zofran 4 mg every 4 hours as needed for nausea. -IV Protonix 40 mg twice daily Elevated troponin -History of CAD (s/p NSTEMI) -Troponin 37.4 on admission. -Per ED HPI, patient reported chest pain resolved with sublingual nitroglycerin. No chest pain reported on admission. Suspect demand ischemia. -Patient follows [facility] hair preparer, Dr. Rodriguez. mentioned she was scheduled for heart monitor placement tomorrow. Reviewed [facility] chart: No visit scheduled for November. Next cardiology appointment in January. -Last echocardiogram performed 01/14/2022 normal (EF = 60-65%; no wall motion abnormalities, no valvular stenosis or insufficiency). -Troponin peaked at 37.4 Headache -05/13 prior to admission. + Light sensitivity. No history of migraine per review of chart. -CT head negative for hemorrhage or ischemia. -Well-controlled on IV Tylenol. -Tylenol 1000 mg p.o. every 8 hours -May be related to underlying cerebellum dysfunction/ataxia. We will monitor headaches after initiation of Ativan as stated above. Seizure disorder -Chronically managed on Keppra 1000 mg twice daily. REBECCA -Patient has CPAP machine at home. Anxiety -Continue home regimen Code: Full code Dispo: Med-Surg telemetry FEN/GI: NPO. LR mIVF DVT Prophylaxis: Home Plavix PT/OT: Consults: Vascular, cardiology (2) Nausea & vomiting: (3) Headache: (4) Elevated troponin: (5) Seizure disorder: (6) Hypertension: (7) Cyclic vomiting syndrome: (8) Peripheral arterial disease: (9) Obstructive sleep apnea: (10) GERD (gastroesophageal reflux disease): (11) CAD (coronary artery disease): Admission and Anticipated Discharge Date Admission Date: November 11, 2022 Supervising Physician Co-Signing Physician Notes I personally examined the patient and verified all real points of history and exam, discussed case, and agree with decision making with Dr Denny Feeling much better after dose of Ativan. Vertigo and nausea improved, blood pressure improved to about 120 systolic. Vitals noted, in general she is awake and alert pleasant no distress. HEENT normocephalic atraumatic mucous membranes moist. Breathing unlabored no accessory muscle use good effort. Skin shows no rashes no pallor or icterus. Cerebellar stroke/central vertigoimproved with a dose of Ativan. For now continue 3 times daily, hopefully try to wean to 3 times daily as needed and then wean off altogether. We will review the literature for the most favorable treatments for central vertigo. PT/OT eval and treat, discussed with patient that it would be worthwhile trying to get her into an inpatient rehabdiscussed that she may not qualify, and if not then we can revisit other options later, but she agrees that it would be worthwhile to try. Anticoagulated with Eliquis for DVT prophylaxis. Otherwise as above. Subjective Patient was seen bedside this morning. States she states that she is doing a lot better today, no more nausea or vomiting. She also denies any vertigo symptoms. Around lunchtime patient became nauseous and had an episode of vomiting. She did have elevated blood pressure as well. Patient was restarted on her home metoprolol, though did still have some elevated blood pressure. Was given Ativan 0.5 mg and 10 minutes later symptoms resolved and blood pressure returned to normal. Review of Systems Review of Systems: All systems reviewed & are unremarkable except as noted in Subjective Physical Exam Constitutional: WD/WN, vitals as above Eyes: PERRL, conjunctivae normal, anicteric sclerae Respiratory: normal respiratory effort, lungs clear to auscultation Cardiovascular: RRR, no murmur, no edema Gastrointestinal (Abdomen): normal bowel sounds, soft, nontender, no hepatosplenomegaly Musculoskeletal: no cyanosis or clubbing, extremities motor strength 5/5 Skin: no rashes, warm and dry Psychiatric: A+Ox3, euthymic affect Results & Data Results & Data Vital Signs (Past 12 Hours) Vital Signs Temp Pulse Pulse Resp BP BP Pulse Ox 11/12/22 07:26 37.4 C 88 20 107/72 99 11/12/22 01:30 37.2 C 94 H 18 100/68 99 11/12/22 04:43 99 H 11/12/22 03:10 37 C 78 18 115/82 100 11/12/22 00:45 83 22 99 11/12/22 00:45 209/129 H 11/12/22 00:45 209/129 H 11/12/22 00:30 81 23 99 11/12/22 00:30 216/135 H 11/12/22 00:15 83 10 L 99 11/12/22 00:15 213/144 H 11/12/22 00:20 86 11/12/22 00:00 96 H 21 87 L 11/12/22 00:00 198/139 H 11/12/22 00:00 198/139 H 11/11/22 23:45 90 18 87 L 11/11/22 23:45 208/141 H 11/11/22 23:30 81 21 91 11/11/22 23:30 226/142 H 11/11/22 23:15 88 14 92 11/11/22 23:15 227/145 H 11/11/22 23:00 88 13 93 11/11/22 23:00 211/144 H 11/11/22 22:54 220/144 H 11/11/22 22:54 99 H 23 95 11/11/22 22:45 92 H 22 97 11/11/22 22:45 242/134 H 11/11/22 22:32 88 17 99 11/11/22 22:32 260/146 H 11/11/22 22:31 104 H 11 L 99 11/11/22 22:31 247/185 H 11/11/22 22:30 94 H 12 97 11/11/22 22:18 206/148 H 11/11/22 22:18 90 23 99 11/11/22 22:15 94 H 16 97 11/11/22 22:08 21 96 11/11/22 21:50 85 14 94 11/11/22 21:50 193/123 H 11/11/22 21:45 101 H 20 97 11/11/22 21:43 184/121 H 11/11/22 21:43 102 H 22 94 11/11/22 21:42 187/129 H 11/11/22 21:42 99 H 20 11/11/22 21:41 92 H 20 95 11/11/22 21:41 227/136 H 11/11/22 21:30 100 H 12 96 11/11/22 21:30 230/131 H 11/11/22 21:22 96 H 16 97 11/11/22 21:22 229/151 H 11/11/22 21:15 95 H 17 97 11/11/22 21:08 105 H 20 98 04/10/23 21:08 198/149 H 11/11/22 21:00 81 18 94 11/11/22 21:00 230/150 H 11/11/22 20:45 115 H 20 98 11/11/22 20:30 76 14 96 11/11/22 20:15 109 H 14 97 11/11/22 21:05 91 H 18 98 11/11/22 20:00 120 H 11/11/22 20:00 111 H 16 176/126 H 98 11/11/22 19:55 36.5 C 93 H 22 166/125 H 95 11/11/22 19:48 36.5 C 93 H 22 166/125 H 95 O2 Del Method O2 Flow Rate 11/12/22 07:26 Nasal Cannula 2 11/12/22 01:30 Nasal Cannula 2.5 11/12/22 04:43 11/12/22 03:10 Nasal Cannula 3 11/12/22 00:45 11/12/22 00:45 11/12/22 00:45 11/12/22 00:30 11/12/22 00:30 11/12/22 00:15 11/12/22 00:15 11/12/22 00:20 11/12/22 00:00 11/12/22 00:00 11/12/22 00:00 11/11/22 23:45 11/11/22 23:45 11/11/22 23:30 11/11/22 23:30 11/11/22 23:15 11/11/22 23:15 11/11/22 23:00 11/11/22 23:00 11/11/22 22:54 11/11/22 22:54 11/11/22 22:45 11/11/22 22:45 11/11/22 22:32 11/11/22 22:32 11/11/22 22:31 11/11/22 22:31 11/11/22 22:30 11/11/22 22:18 11/11/22 22:18 11/11/22 22:15 11/11/22 22:08 11/11/22 21:50 11/11/22 21:50 11/11/22 21:45 11/11/22 21:43 11/11/22 21:43 11/11/22 21:42 11/11/22 21:42 11/11/22 21:41 11/11/22 21:41 11/11/22 21:30 11/11/22 21:30 11/11/22 21:22 11/11/22 21:22 11/11/22 21:15 11/11/22 21:08 11/11/22 21:08 11/11/22 21:00 11/11/22 21:00 11/11/22 20:45 11/11/22 20:30 11/11/22 20:15 11/11/22 21:05 11/11/22 20:00 11/11/22 20:00 Room Air 11/11/22 19:55 Room Air 11/11/22 19:48 Room Air Resident Activity Tracking Resident Involvement: Resident Care Provided Care Provided: Adult Hospital Medicine (11) CAD (coronary artery disease) Associated angina: without angina Coronary Disease-Associated Artery/Lesion type: pala artery [place] vs. transplanted heart: pala heart Qualified Code(s): I25.10 - Atherosclerotic heart disease of pala coronary artery without angina pectoris
--- NOTE | 2022-11-12 08:38 | Cardiology Consultation ---
Date of Consultation November 12, 2022 Assessment & Plan (1) Hypertensive emergency: (2) Elevated troponin: (3) Cerebellar stroke: Plan Ms. Velasquez is feeling much better today with her blood pressure resolved. She is no longer having headache, dizziness or chest pain. She can continue her home antihypertensives. Her blood pressure likely spiked due to her home medications held at [facility] for permissive hypertension post stroke. I reviewed her hospitalization from [facility]. She had multiple small cerebellar strokes concerning for thromboembolic source. She will need a 30 cafeteria monitor. She can be set up for a monitor through our office. If she is experiencing paroxysmal afib, she is under dosed for her Eliquis. I discussed her case briefly with neurology who agrees her stroke is likely embolic and that she can go up on her Eliquis at this point. I recommend she increase to 5 mg Eliquis bid. She should continue her Plavix. Her CTA in [facility] did not show any significant carotid disease. Her echo showed normal EF without wall motion abnormalities, no valvular abnormalities, no shunt with bubble study. She had a mild elevation in troponin this admission, likely secondary to demand ischemia from hypertensive urgency. No ischemic changes on ED EKG She continues on statin therapy. LDL in August was at goal. History of Present Illness Attending Physician: Souleymane Lobato DO History of Present Illness Ms. Velasquez presented yesterday evening for intractable vomiting, headache and chest pain after being discharged from [facility] for stroke the same day. She was found to have hypertensive urgency with blood pressure as high as 247/185. She was given multiple labetolol doses and her blood pressure dropped to 100/68 and has remained normal since that time. She presented to [facility] on Friday with dizziness and chest pain. During her admission to [facility] MRI showed small infarct in her cerebellum. She was not a TPA candidate as she is anticoagulated with Eliquis. She was having palpitations at the time that they called the ambulance. She is status femoral bypass on 09/28/[address] Maynard. No further chest pain. She feels hungry. No headache or dizziness at this time. She has not used the CPAP since the recall in 2020. Ms. Velasquez was out of the room at Ultrasound when I was rounding in the hospital so this evaluation was done later over the phone. I am in my office, she is in her hospital room. She stated her name and date of . She understands this is a billable visit and consents to a phone visit Allergies Allergy/AdvReac Type Severity Reaction Status Date / Time napoles Allergy Intermediate Hives Verified 09/25/22 07:01 (green/hartman beans) doxycycline Allergy Intermediate Hives, Verified 09/25/22 07:01 vomiting Iodinated Contrast Media Allergy Intermediate Large Verified 09/25/22 07:01 hives, vomiting, "feeling hot" iodine Allergy Intermediate Hives, Verified 09/25/22 07:01 vomiting latex Allergy Intermediate Rash Verified 09/25/22 07:01 loperamide Allergy Intermediate Hives, Verified 09/25/22 07:01 vomiting meperidine Allergy Intermediate Hives, Verified 09/25/22 07:01 vomiting strawberry Allergy Intermediate Hives Verified 09/25/22 07:01 tomato Allergy Intermediate Hives Verified 09/25/22 07:01 prochlorperazine Allergy Mild N/V, Verified 09/25/22 07:01 itchiness Home Medications Medication Instructions Recorded Confirmed Type multivitamin 1 tab PO QAM 12/16/18 11/11/22 History rosuvastatin 40 mg tablet (Crestor) 40 mg PO HS 09/11/21 11/11/22 History ondansetron HCl 4 mg tablet 4 mg PO Q8H PRN nausea and 12/18/21 11/11/22 Rx vomiting #20 tabs pantoprazole 40 mg tablet,delayed 40 mg PO BID #180 tabs 03/27/22 11/11/22 Rx release amitriptyline 25 mg tablet 25 mg PO HS #90 tabs 05/31/22 11/11/22 Rx clopidogrel 75 mg tablet (Plavix) 75 mg PO HS #90 tabs 06/17/22 11/11/22 Rx cholecalciferol (vitamin D3) 50 2,000 unit PO HS #90 tabs 07/03/22 11/11/22 Rx mcg (2,000 unit) tablet venlafaxine 150 mg 150 mg PO QAM #90 caps 07/03/22 11/11/22 Rx capsule,extended release 24 hr Auto Titrating CPAP #1 ea 07/15/22 10/02/22 Rx Medical Marijuana 1 dose PO DIRECTED PRN Pain 09/12/22 11/11/22 History losartan 50 mg tablet 50 mg PO DAILY 09/25/22 11/11/22 History levetiracetam 1,000 mg tablet 1,000 mg PO BID #180 tabs 10/02/22 11/11/22 Rx (Kejamesra) metoprolol succinate 50 mg 50 mg PO DAILY #90 tabs 10/02/22 11/11/22 Rx tablet,extended release 24 hr apixaban 2.5 mg tablet 2.5 mg PO BID #180 tabs 10/22/22 11/11/22 Rx ipratropium 20 mcg-albuterol 100 1 puff inhalation Q6H #4 grams 10/31/22 11/11/22 Rx mcg/actuation mist for inhalation (Combivent Respimat) clonidine HCl 0.1 mg tablet 0.1 mg PO BID 3 months #180 tabs 11/08/22 11/11/22 Rx meclizine 25 mg tablet 25 mg PO UD PRN as directed 11/11/22 11/11/22 History Patient History Medical History Anxiety disorder CAD (coronary artery disease) Mild-moderate non-obstructive CAD per 2017 cardiac cath Cannabinoid hyperemesis syndrome Carotid stenosis < 50% stenosis B/L per US 12/16/18 Cervical disc disorder Full ROM per pt Cyclic vomiting syndrome Cyclic vomiting syndrome no GI pathology on EGD, US, CT of abd/pelvis, celiac testing and GES per 04/2020 GI consult: biliary w/u and upper GI study recommended (upper GI study neg per d/c summary), cannabis cessation, continue Protonix and prn Zofran > currently controlled Depression GERD (gastroesophageal reflux disease) History of COVID-19 03/18/22, pcr [facility], hospitalized day after diagnosis due to vomiting blood, discharged on 03/22/22; fever, vomiting, body chills and aches, diarrhea > resolved currently. 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 Maynard Posterior reversible encephalopathy syndrome (PRES) Postoperative nausea Prediabetes diet controlled PRES (posterior reversible encephalopathy syndrome) has since caused seizures that started in 2018. following with PCP, last seizure per pt 08/2019 per PCP records Proteinuria Pulmonary emphysema well controlled per pt Renal artery stenosis following with Dr Maynard Seizure Seizures 2019 r/t hypertensive emergency > encephalopathy. last seizure 2019 Tachycardia Takotsubo cardiomyopathy 2016. Admitted [facility], full cardiac workup including cath. EF at the time 40%, now subsequent echos. Follows with Dr. Rodriguez Transient cerebrovascular ischemia Per records, pt unaware Upper gastrointestinal bleed 2021, resolved Surgical History H/O cervical spine surgery ACDF C4-7 Dr. [place]: Grade 1 view, Bojorquez#2 and ETT#7.5 atraumatic x 1. No issues per anesthesia postop progress note. ROM WNL History of anesthesia reaction Low O2 sats during colonoscopy 04/2022 at [facility] and post-procedure elevated BP. Per post-op anesthesia progress note, O2 96-100% RA and "Pt has increased BP 2ndary to abdominal pain. Pt also has nausea w/ dry heaves. Pt to have CT scan per Dr Patten." History of cardiac cath 2017 > no stents History of cataract surgery bilat History of esophagogastroduodenoscopy (EGD) History of hernia surgery right inguinal hernia repair History of hysterectomy History of ovarian cystectomy History of tooth extraction S/P aortobifemoral bypass surgery Sep 2021 [facility] Status post surgery RLE thrombectomy Family History Father Family history of stomach cancer Malignant neoplasm of esophagus Stomach cancer Myocardial infarction Stroke Uncle Throat cancer Family history of cancer FAMILY HISTORY OF CANCER - UNCLE - VOCAL CORDS FAMILY HISTORY OF CANCER - AUNT - ? KIND Grandmother (Maternal) Bone cancer Breast cancer Mother No problems noted. Brother Lung cancer Other Family history of diabetes mellitus No family history of adverse response to anesthesia No pertinent family history Denies family history of Colon cancer Ovarian cancer Prostate cancer Crohn's disease IBD (inflammatory bowel disease) Social History (Reviewed 11/12/22 @ 10:04 by MAHAD Boudreaux Smoking Status: Former smoker packs per day: 2; Second Hand Exposure: No; Hx Alcohol Use: No Hx Substance Use: No Preferred Language: Slovenian Communication Ability: Effective Visual Impairment: No Limitations Hearing Ability: Normal Industrial Designer Required: No Beliefs That Will Affect Care: None marital status: Current Living Situation: Spouse Current Living Situation Comment: [place] current occupational status: employed 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 Feels Safe at Home: Yes Childhood Exposure to Second-Hand Smoke: Yes caffeine: Yes (1 cup of coffee) during the past year weight has: other Dental Care, Regularly: No Physical Activity Frequency: Daily Physical Activity Frequency Comment: walking Seatbelt Use: always Sunscreen Use: Yes Assistive Devices: Cane and Walker Review of Systems Review of Systems: All systems reviewed & are unremarkable except as noted in HPI & below Physical Exam Physical Exam: deferred for phone visit Results & Data Vital Signs (Past 12 Hours) Vital Signs Temp Pulse Pulse Resp BP BP Pulse Ox 11/12/22 06:45 92 H 11/12/22 07:26 37.4 C 88 20 107/72 99 11/12/22 01:30 37.2 C 94 H 18 100/68 99 11/12/22 04:43 99 H 11/12/22 03:10 37 C 78 18 115/82 100 11/12/22 00:45 83 22 99 11/12/22 00:45 209/129 H 11/12/22 00:45 209/129 H 11/12/22 00:30 81 23 99 11/12/22 00:30 216/135 H 11/12/22 00:15 83 10 L 99 11/12/22 00:15 213/144 H 11/12/22 00:20 86 11/12/22 00:00 96 H 21 87 L 11/12/22 00:00 198/139 H 11/12/22 00:00 198/139 H 11/11/22 23:45 90 18 87 L 11/11/22 23:45 208/141 H 11/11/22 23:30 81 21 91 11/11/22 23:30 226/142 H 11/11/22 23:15 88 14 92 11/11/22 23:15 227/145 H 11/11/22 23:00 88 13 93 11/11/22 23:00 211/144 H 11/11/22 22:54 220/144 H 11/11/22 22:54 99 H 23 95 11/11/22 22:45 92 H 22 97 11/11/22 22:45 242/134 H 11/11/22 22:32 88 17 99 11/11/22 22:32 260/146 H 11/11/22 22:31 104 H 11 L 99 11/11/22 22:31 247/185 H 11/11/22 22:30 94 H 12 97 11/11/22 22:18 206/148 H 11/11/22 22:18 90 23 99 11/11/22 22:15 94 H 16 97 11/11/22 22:08 21 96 11/11/22 21:50 85 14 94 11/11/22 21:50 193/123 H 11/11/22 21:45 101 H 20 97 11/11/22 21:43 184/121 H 11/11/22 21:43 102 H 22 94 11/11/22 21:42 187/129 H 11/11/22 21:42 99 H 20 11/11/22 21:41 92 H 20 95 11/11/22 21:41 227/136 H 11/11/22 21:30 100 H 12 96 11/11/22 21:30 230/131 H 11/11/22 21:22 96 H 16 97 11/11/22 21:22 229/151 H 11/11/22 21:15 95 H 17 97 11/11/22 21:08 105 H 20 98 11/11/22 21:08 198/149 H 11/11/22 21:00 81 18 94 11/11/22 21:00 230/150 H 11/11/22 20:45 115 H 20 98 11/11/22 21:05 91 H 18 98 O2 Del Method O2 Flow Rate 11/12/22 06:45 11/12/22 07:26 Nasal Cannula 2 11/12/22 01:30 Nasal Cannula 2.5 11/12/22 04:43 11/12/22 03:10 Nasal Cannula 3 11/12/22 00:45 11/12/22 00:45 11/12/22 00:45 11/12/22 00:30 11/12/22 00:30 11/12/22 00:15 11/12/22 00:15 11/12/22 00:20 11/12/22 00:00 11/12/22 00:00 11/12/22 00:00 11/11/22 23:45 11/11/22 23:45 11/11/22 23:30 11/11/22 23:30 11/11/22 23:15 11/11/22 23:15 11/11/22 23:00 11/11/22 23:00 11/11/22 22:54 11/11/22 22:54 11/11/22 22:45 11/11/22 22:45 11/11/22 22:32 11/11/22 22:32 11/11/22 22:31 11/11/22 22:31 11/11/22 22:30 11/11/22 22:18 11/11/22 22:18 11/11/22 22:15 11/11/22 22:08 11/11/22 21:50 11/11/22 21:50 11/11/22 21:45 11/11/22 21:43 11/11/22 21:43 11/11/22 21:42 11/11/22 21:42 11/11/22 21:41 11/11/22 21:41 11/11/22 21:30 11/11/22 21:30 11/11/22 21:22 11/11/22 21:22 11/11/22 21:15 11/11/22 21:08 11/11/22 21:08 11/11/22 21:00 11/11/22 21:00 11/11/22 20:45 11/11/22 21:05
[2022-11-12] MEDS ORDERED: METOPROLOL SUCC 50MG EXT REL TAB PO SCH (09:00)
[2022-11-12] MEDS: PANTOprazole 40 MG in SYRINGE 0 ML IV SCH ×2 (09:07→20:49)
[2022-11-12] MEDS: VENLAFAXINE HCL XR 150 MG CAPXR PO SCH (09:08)
[2022-11-12] MEDS: levETIRAcetam 500 MG TAB PO SCH ×2 (09:08→20:50)
--- NOTE | 2022-11-12 09:48 | Ultrasound Report ---
DOPPLER ULTRASOUND OF THE RENAL ARTERIES CLINICAL HISTORY: Hypertensive crisis. COMPARISON STUDY: Renal artery ultrasound dated 10/30/2020. CT angiogram of the abdomen dated . TECHNIQUE: Doppler sonography of the renal arteries was performed to assess renal artery stenosis. Im ages are reviewed in the transverse and longitudinal planes. FINDINGS: The kidneys appear normal in size and echotexture. The right kidney measures 9.0 cm in length and the left kidney measures 11.1 cm in length. There is no hydronephrosis. On the right, intrarenal arterial resistive indices range from 0.70 to 0.75. Intrarenal arterial wave forms are normal with brisk upstrokes. The right renal arterial waveform is normal, and velocities wi thin the right renal artery measure up to 165 cm/sec. The right renal vein is patent. On the left, intrarenal arterial resistive indices range from 0.57 to 0.71. Intrarenal arterial wave forms are normal with brisk upstrokes. The left renal arterial waveform is normal, and velocities wit hin the left renal artery measure up to 1. 2 cm/sec. The left renal vein is patent. The abdominal aorta is patent. Velocities within the abdominal aorta measure up to 66 cm/s. Survey images of the liver show evidence of steatosis. IMPRESSION: There is no sonographic evidence of renal artery stenosis. ACT 112: Negative or not required by law. Electronically signed by: Armin Sylvester M.D. 11/12/2022 9:47 AM
[2022-11-12] MEDS ORDERED: LABETALOL HCL IV 5 MG/ML 20ML IV STA (12:51)
[2022-11-12] MEDS ORDERED: METOPROLOL SUCC 50MG EXT REL TAB PO STA (13:14)
--- NOTE | 2022-11-12 13:28 | Consultation ---
Date of Consultation November 12, 2022 Assessment & Plan (1) Hypertensive emergency: Pt with episodic hypertensive urgency, with associated ESTRELLA. This has resolved, her BP is well controlled since medications administered. She is not maxxed out on 5 or more antihypertensive medications, no imaging done in this facility has demonstrated renal artery stenosis. No indications for vascular surgical intervention at this time. Pt has no arterial claudication complaints and has good distal pulses. weWill follow in office as scheduled in December 2022. Please call if needed. History of Present Illness Reason for Consultation: possible renal art stenosis Attending Physician: Souleymane Lobato DO History of Present Illness 57 yo f with multiple medical problems, including severe aortoiliac occlusive disease and PAD, HTN, REBECCA, CAD, COPD, GERD, thyroid nodules, hyperlipidemia, anxiety, admitted with hypertensive urgency, seen today in consultation for possible renal art stenosis. Pt is well known to Dr Maynard's vascular surgery practice, having undergone multiple revascularization procedures, most recently a R to L fem fem prosthetic BPG in Sep 2022. Pt states her legs are feeling fine, however, she had some severe vertigo which caused her to go to the [facility] last week, where she was noted to have a cerebellar CVA. She states she was having a ESTRELLA, so came to [facility] yesterday. Prior to this, she has HTN controlled with medication. Admits some palpitations and chest pain/SOB when her BP was elevated, but states that resolved. She denies any other new sx, and states she is feeling much better since admission. Denies amaurosis, unilateral extremity weakness numbness or tingling, difficulty speaking, facial droop, chest pain, abd pain, N/V, rest pain, claudication, other complaints. Review of multiple CTA abd/pelvis(most recently in August 2022) done at this facility does not demonstrate any renal artery stenosis. Allergies Allergy/AdvReac Type Severity Reaction Status Date / Time napoles Allergy Intermediate Hives Verified 09/25/22 07:01 (green/hartman beans) doxycycline Allergy Intermediate Hives, Verified 09/25/22 07:01 vomiting Iodinated Contrast Media Allergy Intermediate Large Verified 09/25/22 07:01 hives, vomiting, "feeling hot" iodine Allergy Intermediate Hives, Verified 09/25/22 07:01 vomiting latex Allergy Intermediate Rash Verified 09/25/22 07:01 loperamide Allergy Intermediate Hives, Verified 09/25/22 07:01 vomiting meperidine Allergy Intermediate Hives, Verified 09/25/22 07:01 vomiting strawberry Allergy Intermediate Hives Verified 09/25/22 07:01 tomato Allergy Intermediate Hives Verified 09/25/22 07:01 prochlorperazine Allergy Mild N/V, Verified 09/25/22 07:01 itchiness Home Medications Medication Instructions Recorded Confirmed Type multivitamin 1 tab PO QAM 12/16/18 11/11/22 History rosuvastatin 40 mg tablet (Crestor) 40 mg PO HS 09/11/21 11/11/22 History ondansetron HCl 4 mg tablet 4 mg PO Q8H PRN nausea and 12/18/21 11/11/22 Rx vomiting #20 tabs pantoprazole 40 mg tablet,delayed 40 mg PO BID #180 tabs 03/27/22 11/11/22 Rx release amitriptyline 25 mg tablet 25 mg PO HS #90 tabs 05/31/22 11/11/22 Rx clopidogrel 75 mg tablet (Plavix) 75 mg PO HS #90 tabs 06/17/22 11/11/22 Rx cholecalciferol (vitamin D3) 50 2,000 unit PO HS #90 tabs 07/03/22 11/11/22 Rx mcg (2,000 unit) tablet venlafaxine 150 mg 150 mg PO QAM #90 caps 07/03/22 11/11/22 Rx capsule,extended release 24 hr Auto Titrating CPAP #1 ea 07/15/22 10/02/22 Rx Medical Marijuana 1 dose PO DIRECTED PRN Pain 09/12/22 11/11/22 History losartan 50 mg tablet 50 mg PO DAILY 09/25/22 11/11/22 History levetiracetam 1,000 mg tablet 1,000 mg PO BID #180 tabs 10/02/22 11/11/22 Rx (Keppra) metoprolol succinate 50 mg 50 mg PO DAILY #90 tabs 10/02/22 11/11/22 Rx tablet,extended release 24 hr apixaban 2.5 mg tablet 2.5 mg PO BID #180 tabs 10/22/22 11/11/22 Rx ipratropium 20 mcg-albuterol 100 1 puff inhalation Q6H #4 grams 10/31/22 11/11/22 Rx mcg/actuation mist for inhalation (Combivent Respimat) clonidine HCl 0.1 mg tablet 0.1 mg PO BID 3 months #180 tabs 11/08/22 11/11/22 Rx meclizine 25 mg tablet 25 mg PO UD PRN as directed 11/11/22 11/11/22 History Patient History Medical History Anxiety disorder CAD (coronary artery disease) Mild-moderate non-obstructive CAD per 2017 cardiac cath Cannabinoid hyperemesis syndrome Carotid stenosis < 50% stenosis B/L per US 12/16/18 Cervical disc disorder Full ROM per pt Cyclic vomiting syndrome Cyclic vomiting syndrome no GI pathology on EGD, US, CT of abd/pelvis, celiac testing and GES per 04/2020 GI consult: biliary w/u and upper GI study recommended (upper GI study neg per d/c summary), cannabis cessation, continue Protonix and prn Zofran > currently controlled Depression GERD (gastroesophageal reflux disease) History of COVID-19 03/18/22, [facility] [place], hospitalized day after diagnosis due to vomiting blood, discharged on 03/22/22; fever, vomiting, body chills and aches, diarrhea > resolved currently. 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 Maynard Posterior reversible encephalopathy syndrome (PRES) Postoperative nausea Prediabetes diet controlled PRES (posterior reversible encephalopathy syndrome) has since caused seizures that started in 2018. following with PCP, last seizure per pt 08/2019 per PCP records Proteinuria Pulmonary emphysema well controlled per pt Renal artery stenosis following with Dr Maynard Seizure Seizures 2019 r/t hypertensive emergency > encephalopathy. last seizure 2019 Tachycardia Takotsubo cardiomyopathy 2016. Admitted [facility], full cardiac workup including cath. EF at the time 40%, now subsequent echos. Follows with Dr. Rodriguez Transient cerebrovascular ischemia Per records, pt unaware Upper gastrointestinal bleed 2021, resolved Surgical History H/O cervical spine surgery ACDF C4-7 Dr. [place]: Grade 1 view, Bojorquez#2 and ETT#7.5 atraumatic x 1. No issues per anesthesia postop progress note. ROM WNL History of anesthesia reaction Low O2 sats during colonoscopy 04/2022 at [facility] and post-procedure elevated BP. Per post-op anesthesia progress note, O2 96-100% RA and "Pt has increased BP 2ndary to abdominal pain. Pt also has nausea w/ dry heaves. Pt to have CT scan per Dr Patten." History of cardiac cath 2016 > no stents History of cataract surgery bilat History of esophagogastroduodenoscopy (EGD) History of hernia surgery right inguinal hernia repair History of hysterectomy History of ovarian cystectomy History of tooth extraction S/P aortobifemoral bypass surgery Sep 2021 [facility] Status post surgery RLE thrombectomy Family History Father Family history of stomach cancer Malignant neoplasm of esophagus Stomach cancer Myocardial infarction Stroke Uncle Throat cancer Family history of cancer FAMILY HISTORY OF CANCER - UNCLE - VOCAL CORDS FAMILY HISTORY OF CANCER - AUNT - ? KIND Grandmother (Maternal) Bone cancer Breast cancer Mother No problems noted. Brother Lung cancer Other Family history of diabetes mellitus No family history of adverse response to anesthesia No pertinent family history Denies family history of Colon cancer Ovarian cancer Prostate cancer Crohn's disease IBD (inflammatory bowel disease) Social History Smoking Status: Former smoker packs per day: 2; Second Hand Exposure: No; Hx Alcohol Use: No Hx Substance Use: No Preferred Language: Tunisian Communication Ability: Unable Visual Impairment: No Limitations Hearing Ability: Normal Gaggerman Required: No Beliefs That Will Affect Care: None marital status: Current Living Situation: Spouse Current Living Situation Comment: [place] current occupational status: employed current occupation: [employer] Feels Safe at Home: Yes Childhood Exposure to Second-Hand Smoke: Yes caffeine: Yes (1 cup of coffee) during the past year weight has: other Dental Care, Regularly: No Physical Activity Frequency: Daily Physical Activity Frequency Comment: walking Seatbelt Use: always Sunscreen Use: Yes Assistive Devices: Cane and Walker Review of Systems Review of Systems: All systems reviewed & are unremarkable except as noted in HPI & below Physical Exam Constitutional: WD/WN, vitals as above + obese, healthy appearing, cooperative and comfortable; not in distress ENMT: Ears: no hearing impairment Neck: trachea midline Respiratory: normal respiratory effort, lungs clear to auscultation Auscultation: + diminished lung sounds Cardiovascular: Rate/Rhythm: regular rate and regular rhythm Vessels: posterior tibial pulses present, dorsalis pedis pulses present, brachial pulses present and radial pulses present; + abnormal peripheral pulses Extremities: normal capillary refill; no edema Gastrointestinal (Abdomen): Inspection/Auscultation: abdomen normal to inspection and normal bowel sounds Percussion/Palpation: abdomen soft; abdomen nontender Musculoskeletal: no cyanosis or clubbing, extremities motor strength 5/5 Skin: no rashes, warm and dry + incision (old BL groin and abd surgical scars well healed) Neurologic: moves all extremities and awake; no focal motor deficits and not confused Psychiatric: A+Ox3, euthymic affect Results & Data Vital Signs (Past 12 Hours) Vital Signs Temp Pulse Pulse Resp BP Pulse Ox O2 Del Method 11/12/22 12:20 174/104 H 11/12/22 11:11 37.3 C 80 18 117/81 99 Nasal Cannula 11/12/22 09:12 Nasal Cannula 11/12/22 06:45 92 H 11/12/22 07:26 37.4 C 88 20 107/72 99 Nasal Cannula 11/12/22 01:30 37.2 C 94 H 18 100/68 99 Nasal Cannula 11/12/22 04:43 99 H 11/12/22 03:10 37 C 78 18 115/82 100 Nasal Cannula O2 Flow Rate 11/12/22 12:20 11/12/22 11:11 2 11/12/22 09:12 2 11/12/22 06:45 11/12/22 07:26 2 11/12/22 01:30 2.5 11/12/22 04:43 11/12/22 03:10 3
[2022-11-12] MEDS ORDERED: LORazepam 0.5 MG TAB PO STA (13:42)
--- NOTE | 2022-11-12 16:45 | Billing Data ---
Date of Service November 12, 2022 Coding Level of Care Code 73421 SUB INP/OBS CARE MIN
[2022-11-12] MEDS: AMITRIPTYLINE HCL 25 MG TAB PO SCH (20:50)
[2022-11-12] MEDS: CLOPIDOGREL BISULFATE 75 MG TAB PO SCH (20:50)
[2022-11-12] MEDS: APIXABAN 5 MG TABLET PO SCH (20:50)
[2022-11-12] MEDS: LORazepam 0.5 MG TAB PO SCH (20:52)
--- NOTE | 2022-11-13 06:22 | Electrocardiogram Report ---
Test Reason : Blood Pressure : / mmHG Vent. Rate : 074 BPM Atrial Rate : 074 BPM P-R Int : 172 ms QRS Dur : 086 ms QT Int : 384 ms P-R-T Axes : 035 -12 053 degrees QTc Int : 426 ms Normal sinus rhythm Normal ECG When compared with ECG of 25-SEP-2022 16:50, Premature ventricular complexes are no longer Present Nonspecific T wave abnormality no longer evident in Inferior leads Nonspecific T wave abnormality no longer evident in Lateral leads Confirmed by Quinten Sanchez ([id number]) on 11/13/2022 6:22:03 AM Referred By: REFERRED SELF Confirmed By:Quinten Sanchez
[2022-11-13 06:25] LABS: Hematocrit (blood only) 32.5 % (37.0-47.0); Hemoglobin 10.5 g/dl (12.0-16.0); Mean Corpuscular Hemoglobin 27.3 pg (25.0-34.0); Mean Corpuscular Hgb Conc 32.3 g/dL (32.0-36.0); Mean Corpuscular Volume 84.6 fL (80.0-100.0); Platelet Count 370 K/uL (130-400); RDW Coefficient of Variation 15.2 % (11.5-14.5); RDW Standard Deviation 46.6 fL (36.4-46.3); Red Blood Count 3.84 M/uL (4.20-5.40); White Blood Count 7.78 K/ul (4.8-10.8)
[2022-11-13 06:33] LABS: Calcium 9.1 mg/dl (8.6-10.3); Creatinine Clr Calc Pharmacy 81.1 ml/min; Est GFR (African American) 92.7 ml/min; Magnesium 2.2 mg/dl (1.7-2.4); Phosphorus 3.4 mg/dl (2.5-4.9); Potassium 3.5 mmol/L (3.5-5.1)
--- NOTE | 2022-11-13 07:37 | Hospitalist Progress Note ---
Date of Service November 13, 2022 Assessment & Plan (1) Hypertensive emergency: Plan: 57 F with past medical history of hypertension (on losartan, metoprolol), with PRES, CAD (NSTEMI), cyclic vomiting, seizures (on Keppra), hyperlipidemia, anxiety, and depression who presented to the hospital, following recent discharge from outside hospital for CVA, with hyperemesis, headache, and chest pain. Now admitted to the hospital for management of hypertensive crisis, hy peremesis, elevated troponin, and headache. Hypertensive crisis/hypertension Cerebellar dysfunction/ataxia -Chronic hypertension managed on losartan, metoprolol. -BP 220/140s discovered on admission. Refractory s/p IV labetalol 10 mg x 2 doses, p.o. clonidine in the ED. -Patient largely asymptomatic, save for headache well-controlled with Tylenol. -S/p additional IV labetalol 10 mg x1 dose on admission. -BP at time of transfer to the floor 100s/80s. -Request made for records from recent stay at [facility] (per patient, for CVA). -Home metoprolol, losartan, and clonidine were held on admission due to low blood pressures after receiving IV labetalol. -Renal artery Doppler did not show any significant renal stenosis. -Renin and serum aldosterone pending. -Vascular surgery and cardiology was consulted, appreciate recommendations. --Vascular surgery states no vascular surgical intervention needed at this time. Should follow-up as an outpatient in December 2022. --Cardiology recommends to continue Plavix and to increase her Eliquis to 5 mg twice daily. As well as a 30-day electronic device monitor which will be set up through cardiology. Should follow-up with cardiology in 3 to 4 weeks after discharge. -Patient's symptoms improved with Ativan. Most likely hypertensive crisis/vertigo is due to underlying cerebellum dysfunction/ataxia secondary to recent cerebellar CVA. -We will continue on Ativan 0.5 mg 3 times daily and monitor for symptoms. May consider SSRI for cerebellum dysfunction/ataxia. -We will restart home blood pressure medication in the morning. Status post cerebellar stroke -Patient was seen in [facility] for CVA of the cerebellum on 11/07/2022. -Recommended outpatient vestibular therapy for vertigo. -Vertigo well controlled with Ativan at this time. Should be in conjunction with vestibular therapy at time of discharge. -Patient will most likely need inpatient rehab/SNF at time of discharge for cerebellar dysfunction status post cerebellar stroke. -PT OT will see patient today. Patient can return home per PT OT. No recommendation for inpatient rehab. -Plan for Ativan long-term will be to continue 1 week of 0.5 mg Ativan 3 times daily, 1 week 0.5 mg Ativan a 3 times daily as needed, and then 2 weeks of twice daily as needed. -Should follow-up with PCP and neurology regarding continuing treatment past 1 month. Vomiting/cyclic vomiting/cannabis hyperemesis syndrome -Chronic, presumed secondary to chronic cannabis use. Managed with as needed Zofran. -No GI pathology seen on last EGD done in 2019. -IV Zofran 4 mg every 4 hours as needed for nausea. -IV Protonix 40 mg twice daily Elevated troponin -History of CAD (s/p NSTEMI) -Troponin 37.4 on admission. -Per ED HPI, patient reported chest pain resolved with sublingual nitroglycerin. No chest pain reported on admission. Suspect demand ischemia. -Patient follows [facility] baker helper, Dr. Rodriguez. mentioned she was scheduled for heart monitor placement tomorrow. Reviewed [facility] chart: No visit scheduled for November. Next cardiology appointment in January. -Last echocardiogram performed 01/14/2022 normal (EF = 60-65%; no wall motion abnormalities, no valvular stenosis or insufficiency). -Troponin peaked at 37.4 Headache -10/10 prior to admission. + Light sensitivity. No history of migraine per review of chart. -CT head negative for hemorrhage or ischemia. -Well-controlled on IV Tylenol. -Tylenol 1000 mg p.o. every 8 hours -May be related to underlying cerebellum dysfunction/ataxia. We will monitor headaches after initiation of Ativan as stated above. Seizure disorder -Chronically managed on Keppra 1000 mg twice daily. REBECCA -Patient has CPAP machine at home. Anxiety -Continue home regimen Code: Full code Dispo: Med-Surg telemetry FEN/GI: NPO. LR mIVF DVT Prophylaxis: Home Plavix PT/OT: No SNF or acute rehab. Consults: Vascular, cardiology (2) Nausea & vomiting: (3) Headache: (4) Elevated troponin: (5) Seizure disorder: (6) Hypertension: (7) Cyclic vomiting syndrome: (8) Peripheral arterial disease: (9) Obstructive sleep apnea: (10) GERD (gastroesophageal reflux disease): (11) CAD (coronary artery disease): Admission and Anticipated Discharge Date Admission Date: November 11, 2022 Supervising Physician Co-Signing Physician Notes I personally examined the patient and verified all real points of history and exam, discussed case, and agree with decision making with Dr Denny was feeling better and then while we were talking sudden onset nausea/vomiting. later revisited, vomiting calming down still very nauseated. no vertigo. thinks it's more from her cyclic vomiting than anything to do w stroke Vitals noted, in general she is awake and alert pleasant no distress. HEENT normocephalic atraumatic mucous membranes moist. Breathing unlabored no accessory muscle use good effort. Skin shows no rashes no pallor or icterus. abd soft nd nt Cerebellar stroke/central vertigothis improved w ativan - discussed improvement and complexity and possible side effect of switching her from venlafaxine to sertraline to try to treat central vertigo further, versus given how well she improved, hopefully seeing further improvement in the timeframe that we would be weaning her off of Ativan, particular with further vestibular therapy. She agreed that she would like to avoid shuffling her antidepressants if possible, and we decided that a reasonable approach would be to see how she is doing over the next 2 weeksif she is improving, we will simply utilize Ativan and a slow down titration, as well as vestibular PT; if she is not getting better, that still allows adequate "lead time" for switching to sertraline. Nausea and vomitingshe relates this fits more with her cyclical vomiting today, gave Ativan at first thinking it may be central vertigo related, but on further review, she felt it was more of her chronicadditional Zofran and Phenergan, symptomatic care. Labile/refractory hypertensionshe definitely spikes whenever she is under distress, and very quickly improvesat the same time she is fairly fresh from a stroke and I certainly do not want her running 200/120 like she is. Have given additional amlodipine, will give carvedilol for the alpha blockadeand if she responds well, may switch her metoprolol over to carvedilol long-term. Continue to follow closely, but fortunately while she is symptomatic from nausea, she is asymptomatic as it relates to stroke/hypertensive endorgan damage at this time. Anticoagulated with Eliquis for DVT prophylaxis. Otherwise as above. Subjective Patient was seen bedside this morning. Patient states that she is doing very well and has no issues or concerns at this time. She denies any further nausea or vomiting. She states that her blood pressure has been stable. Review of Systems Review of Systems: All systems reviewed & are unremarkable except as noted in Subjective Physical Exam Constitutional: WD/WN, vitals as above Eyes: PERRL, conjunctivae normal, anicteric sclerae Respiratory: normal respiratory effort, lungs clear to auscultation Cardiovascular: RRR, no murmur, no edema Gastrointestinal (Abdomen): normal bowel sounds, soft, nontender, no hepatosplenomegaly Musculoskeletal: no cyanosis or clubbing, extremities motor strength 5/5 Skin: no rashes, warm and dry Psychiatric: A+Ox3, euthymic affect Results & Data Results & Data Vital Signs (Past 12 Hours) Vital Signs Temp Pulse Pulse Resp BP Pulse Ox O2 Del Method 11/13/22 07:21 75 11/13/22 04:00 36.9 C 77 18 109/73 95 Nasal Cannula 11/13/22 00:00 Nasal Cannula 11/12/22 23:00 37.2 C 75 20 108/73 94 Nasal Cannula O2 Flow Rate 11/13/22 07:21 11/13/22 04:00 2 11/13/22 00:00 1.5 11/12/22 23:00 2 Resident Activity Tracking Resident Involvement: Resident Care Provided Care Provided: Adult Hospital Medicine (11) CAD (coronary artery disease) Associated angina: without angina Coronary Disease-Associated Artery/Lesion type: [place] artery [place] vs. transplanted heart: [place] heart Qualified Code(s): I25.10 - Atherosclerotic heart disease of [place] coronary artery without angina pectoris
[2022-11-13] MEDS: LOSARTAN POTASSIUM 50 MG TAB PO SCH (08:40)
[2022-11-13] MEDS: VENLAFAXINE HCL XR 150 MG CAPXR PO SCH (08:40)
[2022-11-13] MEDS: levETIRAcetam 500 MG TAB PO SCH ×2 (08:40→22:20)
[2022-11-13] MEDS: PANTOprazole 40 MG in SYRINGE 0 ML IV SCH ×2 (08:40→22:19)
[2022-11-13] MEDS: APIXABAN 5 MG TABLET PO SCH ×2 (08:40→22:20)
[2022-11-13] MEDS: LORazepam 0.5 MG TAB PO SCH ×3 (08:42→22:20)
--- NOTE | 2022-11-13 09:39 | Cardiology Progress Note ---
Date of Service November 13, 2022 Assessment & Plan Admission and Anticipated Discharge Date Admission Date: November 11, 2022 Subjective She is feeling better. She feels back to herself the vertigo and gait inst ability have all resolved at this point. She denies any lightheadedness or dizziness. She denies a headache. She has no chest pain or chest pressure or shortness of breath. She denies any palpitations. In retrospect in the days leading up to this event she is unaware that she had any palpitations or fluttering to suggest symptomatic atrial fibrillation. Results & Data Vital Signs (Past 12 Hours) Vital Signs Temp Pulse Pulse Resp BP Pulse Ox O2 Del Method 11/13/22 08:45 Nasal Cannula 11/13/22 07:49 37.1 C 90 20 145/80 H 96 Nasal Cannula 11/13/22 07:21 75 11/13/22 04:00 36.9 C 77 18 109/73 95 Nasal Cannula 11/13/22 00:00 Nasal Cannula 11/12/22 23:00 37.2 C 75 20 108/73 94 Nasal Cannula O2 Flow Rate 11/13/22 08:45 2 11/13/22 07:49 2 11/13/22 07:21 11/13/22 04:00 2 11/13/22 00:00 1.5 11/12/22 23:00 2 She is awake alert and oriented x3 she has no vertiginous symptoms HEENT: 2+ carotid upstrokes Lungs: Clear to auscultation bilaterally no rales rhonchi or wheezing Heart: Regular rate and rhythm no appreciable murmurs rubs or gallops Abdomen soft nontender nondistended positive bowel sounds extremities no clubbing cyanosis or edema psychiatric: Her affect appeared appropriate Assessment & Plan (1) Hypertensive emergency: (2) Elevated troponin: (3) Cerebellar stroke: It looks like her blood pressures are elevated secondary to her vomiting episodes. Her vomiting with this episode was clearly related to a cerebellar stroke and she had all the classic signs of a cerebellar stroke. If you look at her imaging her MRI is consistent with an embolic stroke with a shotgun like affect. This raises the concern given her normal LV function that she may have had atrial fibrillation that was asymptomatic that led to a stroke. Therefore we have increased her apixaban to 5 mg twice a day and she can remain on Plavix 75 mg a day for her peripheral arterial disease. Her blood pressures here in the hospital tend to be well controlled. At this point she is only on losartan. I would be very Careful at discharge as she may only need 25 mg of her Toprol rather than 50 mg. I would recommend a 30-day event recorder just to try to determine if she is having asymptomatic atrial fibrillation. But either way I think based on her MRI she will be on anticoagulation at an appropriate 5 mg twice a day dosing for the rest of her life. She will need aggressive risk factor modification to reduce her risk of further cardiovascular events. If she is stable from a PT standpoint as she did very well with occupational therapy this morning from my standpoint she can be discharged home and we will see her in 3 to 4 weeks as we will have 3 weeks of associated monitoring. This was discussed with the resident service.
[2022-11-13] MEDS: ACETAMINOPHEN 500 MG TAB PO PRN ×2 (12:21→19:46)
[2022-11-13] MEDS ORDERED: LORazepam 2 MG/1 ML VIAL IV STA ×2 (12:30→15:23)
[2022-11-13] MEDS: ONDANSETRON INJ 2 MG/ML 2 ML VIAL IV PRN (12:31)
[2022-11-13] MEDS ORDERED: PROMETHAZINE HCL 6.25 MG in SODIUM CHLORIDE 0.9% 50 ML IV STA ×2 (14:23→19:13)
[2022-11-13] MEDS ORDERED: amLODIPine BESYLATE 5 MG TAB PO ONE (16:45)
--- NOTE | 2022-11-13 19:07 | Billing Data ---
Date of Service November 13, 2022 Coding Level of Care Code 97439 SUB INP/OBS CARE MIN
[2022-11-13] MEDS ORDERED: ONDANSETRON INJ 2 MG/ML 2 ML VIAL IV STA (19:13)
[2022-11-13] MEDS ORDERED: carvediloL 12.5 MG TAB PO ONE ×2 (19:15→22:44)
[2022-11-13] MEDS: CLOPIDOGREL BISULFATE 75 MG TAB PO SCH (22:20)
[2022-11-13] MEDS: AMITRIPTYLINE HCL 25 MG TAB PO SCH (22:20)
--- NOTE | 2022-11-14 06:01 | Billing Data ---
Date of Service November 14, 2022 Coding Level of Care Code 99749 INT INP/OBS CARE
--- NOTE | 2022-11-14 06:43 | Hospitalist Progress Note ---
Date of Service November 14, 2022 Assessment & Plan (1) Hypertensive emergency: Plan: 57 F with past medical history of hypertension (on losartan, metoprolol), with PRES, CAD (NSTEMI), cyclic vomiting, seizures (on Keppra), hyperlipidemia, anxiety, and depression who presented to the hospital, following recent discharge from outside hospital for CVA, with hyperemesis, headache, and chest pain. Now admitted to the hospital for management of hypertensive crisis, hy peremesis, elevated troponin, and headache. Hypertensive crisis/hypertension Cerebellar dysfunction/ataxia -Chronic hypertension managed on losartan, metoprolol. -BP 220/140s discovered on admission. Refractory s/p IV labetalol 10 mg x 2 doses, p.o. clonidine in the ED. -Patient largely asymptomatic, save for headache well-controlled with Tylenol. -S/p additional IV labetalol 10 mg x1 dose on admission. -BP at time of transfer to the floor 100s/80s. -Request made for records from recent stay at [facility] (per patient, for CVA). -Home metoprolol, losartan, and clonidine were held on admission due to low blood pressures after receiving IV labetalol. -Renal artery Doppler did not show any significant renal stenosis. -Renin and serum aldosterone pending. -Vascular surgery and cardiology was consulted, appreciate recommendations. --Vascular surgery states no vascular surgical intervention needed at this time. Should follow-up as an outpatient in December 2022. --Cardiology recommends to continue Plavix and to increase her Eliquis to 5 mg twice daily. As well as a 30-day wheel press clerk which will be set up through cardiology. Should follow-up with cardiology in 3 to 4 weeks after discharge. -Patient's symptoms improved with Ativan. Most likely hypertensive crisis/vertigo is due to underlying cerebellum dysfunction/ataxia secondary to recent cerebellar CVA. -We will continue on Ativan 0.5 mg 3 times daily and monitor for symptoms. May consider SSRI for cerebellum dysfunction/ataxia. -Restarted home blood pressure medication on 11/14. We will stop metoprolol in favor for carvedilol. Start carvedilol 25 mg twice daily. Status post cerebellar stroke -Patient was seen in [facility] for CVA of the cerebellum on 11/07/2022. -Recommended outpatient vestibular therapy for vertigo. -Vertigo well controlled with Ativan at this time. Should be in conjunction with vestibular therapy at time of discharge. -Patient will most likely need inpatient rehab/SNF at time of discharge for cerebellar dysfunction status post cerebellar stroke. -PT OT will see patient today. Patient can return home per PT OT. No recommendation for inpatient rehab. -Plan for Ativan long-term will be to continue 1 week of 0.5 mg Ativan 3 times daily, 1 week 0.5 mg Ativan a 3 times daily as needed, and then 2 weeks of twice daily as needed. -Should follow-up with PCP and neurology regarding continuing treatment past 1 month. Vomiting/cyclic vomiting/cannabis hyperemesis syndrome -Chronic, presumed secondary to chronic cannabis use. Managed with as needed Zofran. -No GI pathology seen on last EGD done in 2019. -IV Zofran 4 mg every 4 hours as needed for nausea. -IV Protonix 40 mg twice daily. -Patient continues to have bouts of vomiting intermittently. May be related to vertigo from post cerebellar stroke or more in line with her cyclic vomiting that has been occurring for a long time -Will add on Carafate QID and pepcid twice daily on 11/14. Elevated troponin -History of CAD (s/p NSTEMI) -Troponin 37.4 on admission. -Per ED HPI, patient reported chest pain resolved with sublingual nitroglycerin. No chest pain reported on admission. Suspect demand ischemia. -Patient follows [facility] orthopedic designer, Dr. Rodriguez. mentioned she was scheduled for heart monitor placement tomorrow. Reviewed [facility] chart: No visit scheduled for November. Next cardiology appointment in January. -Last echocardiogram performed 01/14/2022 normal (EF = 60-65%; no wall motion a bnormalities, no valvular stenosis or insufficiency). -Troponin peaked at 37.4 Headache -10/10 prior to admission. + Light sensitivity. No history of migraine per review of chart. -CT head negative for hemorrhage or ischemia. -Well-controlled on IV Tylenol. -Tylenol 1000 mg p.o. every 8 hours -May be related to underlying cerebellum dysfunction/ataxia. Headaches well controlled after initiation of Ativan as stated above. Seizure disorder -Chronically managed on Keppra 1000 mg twice daily. REBECCA -Patient has CPAP machine at home. Anxiety -Continue home regimen Code: Full code Dispo: Med-Surg telemetry FEN/GI: NPO. LR mIVF DVT Prophylaxis: Home Plavix PT/OT: No SNF or acute rehab. Consults: Vascular, cardiology (2) Nausea & vomiting: (3) Headache: (4) Elevated troponin: (5) Seizure disorder: (6) Hypertension: (7) Cyclic vomiting syndrome: (8) Peripheral arterial disease: (9) Obstructive sleep apnea: (10) GERD (gastroesophageal reflux disease): (11) CAD (coronary artery disease): Admission and Anticipated Discharge Date Admission Date: November 11, 2022 Supervising Physician Co-Signing Physician Notes I personally examined the patient and verified all real points of history and exam, discussed case, and agree with decision making with Dr Denny Still feeling bad. No appetite, ongoing nausea and vomiting. Notes that this feels different than what she was feeling with her central vertigo induced nausea, and also feels different than any of her typical episodes of cyclic vomiting. Vitals noted, in general she is awake and alert pleasant but very fatigued and appears nauseated. Breathing unlabored no accessory muscle use good effort. Abdomen shows epigastric tenderness that was not there yesterday, no guarding rebound or rigidity. CBC, BMP noted Cerebellar stroke/central vertigothis improved w ativan -yesterday discussed improvement and complexity and possible side effect of switching her from venlafaxine to sertraline to try to treat central vertigo further, versus given how well she improved, hopefully seeing further improvement in the timeframe that we would be weaning her off of Ativan, particular with further vestibular therapy. She agreed that she would like to avoid shuffling her antidepressants if possible, and we decided that a reasonable approach would be to see how she is doing over the next 2 weeksif she is improving, we will simply utilize Ativan and a slow down titration, as well as vestibular PT; if she is not getting better, that still allows adequate "lead time" for switching to sertraline. Nausea and vomitingseems to have been a "moving target" initially central vertigo related vomiting that improved beautifully with Ativan, yesterday it felt more to her like an episode of her cyclic vomitinghowever, I suspect with this evolution of epigastric pain that she probably has a degree of stress- induced gastritis/working towards PUD as the culprit. Certainly this would fit with her severity of acute illness recentlyProtonix twice daily, Pepcid twice daily, Carafate 4 times daily, ongoing as needed symptomatic control. By tomorrow if she is not showing significant improvement, definitely will want GI to see her to consider EGD. Labile/refractory hypertensionshe definitely spikes whenever she is under distress, and very quickly improvesat the same time she is fairly fresh from a stroke and I certainly do not want her running markedly uncontrolledmanage symptoms, continue to titrate blood pressure medicinesnow Coreg 25 twice daily, amlodipine 5 mg twice daily Anticoagulated with Eliquis for DVT prophylaxis. Otherwise as above. Subjective Patient was seen bedside morning. She c/o nausea and vomiting. She denies any CP or SOB. Review of Systems Review of Systems: All systems reviewed & are unremarkable except as noted in Subjective Physical Exam Constitutional: WD/WN, vitals as above Eyes: PERRL, conjunctivae normal, anicteric sclerae Respiratory: normal respiratory effort, lungs clear to auscultation Cardiovascular: RRR, no murmur, no edema Gastrointestinal (Abdomen): Inspection/Auscultation: abdomen normal to inspection and normal bowel sounds Percussion/Palpation: + abdomen tender and abdomen soft Musculoskeletal: no cyanosis or clubbing, extremities motor strength 5/5 Skin: no rashes, warm and dry Psychiatric: A+Ox3, euthymic affect Results & Data Results & Data Vital Signs (Past 12 Hours) Vital Signs Temp Pulse Pulse Resp BP Pulse Ox O2 Del Method 11/14/22 06:17 107/74 11/14/22 02:36 37.2 C 103 H 18 173/120 H 96 Nasal Cannula 11/14/22 00:06 103 H 11/13/22 23:56 185/110 H 11/13/22 20:00 Nasal Cannula 11/13/22 22:19 37.2 C 112 H 18 112/77 97 Room Air 11/13/22 20:14 196/124 H 11/13/22 19:29 37.2 C 101 H 18 204/121 H 93 Room Air O2 Flow Rate 11/14/22 06:17 11/14/22 02:36 2 11/14/22 00:06 11/13/22 23:56 11/13/22 20:00 2 11/13/22 22:19 11/13/22 20:14 11/13/22 19:29 Resident Activity Tracking Resident Involvement: Resident Care Provided Care Provided: Adult Hospital Medicine (11) CAD (coronary artery disease) Associated angina: without angina Coronary Disease-Associated Artery/Lesion type: redding artery [place] vs. transplanted heart: redding heart Qualified Code(s): I25.10 - Atherosclerotic heart disease of redding coronary artery without angina pectoris
[2022-11-14 07:29] LABS: Hematocrit (blood only) 36.8 % (37.0-47.0); Hemoglobin 12.3 g/dl (12.0-16.0); Mean Corpuscular Hemoglobin 27.8 pg (25.0-34.0); Mean Corpuscular Hgb Conc 33.4 g/dL (32.0-36.0); Mean Corpuscular Volume 83.1 fL (80.0-100.0); Mean Platelet Volume 9.8 fL (9.4-12.4); Platelet Count 489 K/uL (130-400); Red Blood Count 4.43 M/uL (4.20-5.40); White Blood Count 11.71 K/ul (4.8-10.8)
[2022-11-14 07:53] LABS: Anion Gap 9 (3-11); BUN Creatinine Ratio 11.6 (10-20); Blood Urea Nitrogen 10 mg/dl (6-23); Calcium 9.8 mg/dl (8.6-10.3); Carbon Dioxide 26 mmol/L (21-32); Chloride 100 mmol/L (98-107); Creatinine Clr Calc Pharmacy 77.5 ml/min; Est GFR (African American) 87.5 ml/min; Est GFR (Non-African American) 75.5 ml/min; Glucose 117 mg/dl (70-99(Fasting)); Phosphorus 3.6 mg/dl (2.5-4.9); Sodium 135 mmol/L (136-145)
[2022-11-14] MEDS ORDERED: METOPROLOL SUCC 25MG EXT REL TAB PO SCH (09:00)
[2022-11-14] MEDS ORDERED: METOPROLOL SUCC 50MG EXT REL TAB PO SCH (09:00)
[2022-11-14] MEDS: levETIRAcetam 500 MG TAB PO SCH ×2 (09:38→20:53)
[2022-11-14] MEDS: PANTOprazole 40 MG in SYRINGE 0 ML IV SCH ×2 (09:38→20:53)
[2022-11-14] MEDS: LOSARTAN POTASSIUM 50 MG TAB PO SCH (09:38)
[2022-11-14] MEDS: VENLAFAXINE HCL XR 150 MG CAPXR PO SCH (09:38)
[2022-11-14] MEDS: APIXABAN 5 MG TABLET PO SCH ×2 (09:39→20:53)
[2022-11-14] MEDS: LORazepam 0.5 MG TAB PO SCH ×3 (09:44→21:02)
[2022-11-14] MEDS: ONDANSETRON INJ 2 MG/ML 2 ML VIAL IV PRN ×2 (12:26→20:50)
[2022-11-14] MEDS: SUCRALFATE 1 GM/10 ML UDC PO SCH ×3 (13:46→20:53)
[2022-11-14] MEDS: carvediloL 25 MG TAB PO SCH (16:38)
--- NOTE | 2022-11-14 18:05 | Billing Data ---
Date of Service November 14, 2022 Coding Level of Care Code 08142 SUB INP/OBS CARE MIN
[2022-11-14] MEDS: CLOPIDOGREL BISULFATE 75 MG TAB PO SCH (20:53)
[2022-11-14] MEDS: AMITRIPTYLINE HCL 25 MG TAB PO SCH (20:53)
[2022-11-14] MEDS: FAMOTIDINE 20 MG TAB PO SCH (20:53)
[2022-11-14] MEDS: amLODIPine BESYLATE 5 MG TAB PO SCH (20:54)
--- NOTE | 2022-11-15 07:02 | Discharge Summary ---
Date of Service November 15, 2022 Admission HPI Per Admitting Provider Cyndie is a 57-year-old woman with past medical history of CAD (s/p NSTEMI in 2017), hyperlipidemia, hypertension (PRES in 2019), seizure disorder (following PRES, on Keppra), GERD, PAD (s/p iliofemoral bypass graft), anxiety/depression, who presents to the emergency room with a complaint of intractable vomiting, severe headache, and chest pain. Per patient and her , patient suffered recent CVA and was discharged from [facility] today. Patient got home and started throwing up. Chest pain resolved following administration of sublingual nitroglycerin. ROS + light sensitivity. She denies abdominal pain. In the ED, vitals were notable for BP of 166/125. Rest of vitals within normal limits. BP rapidly increased, peaking at 260 systolic/[address] negative for ischemic or hemorrhagic infarct. Troponin elevated at 37.4. She received IV labetalol 10 mg x 2 doses and p.o. clonidine 0.1 mg x 1, however, BP remained elevated. On admission, she received additional IV labetalol 10 mg x 1 dose and was then transferred to the floor, where on arrival, BP was measured at 100/70. On recheck, BP recorded at 115/82, where she remained. Admission Exam Per Admitting Provider General: No acute distress HEENT: PERRLA. Normal conjunctiva, anicteric sclera. Oropharynx normal. Respiratory: Normal respiratory effort, CTABL. Cardiovascular: RRR without murmurs, gallops, or rubs. No edema. GI: Soft abdomen with normal bowel sounds heard on auscultation. Nontender x4 quadrants Neuro: Alert and oriented x3. Principal Diagnosis Hypertension urgency and central vertigo secondary to cerebellar stroke Discharge Exam Constitutional WD/WN, vitals as above ENMT external ear and nose normal, oropharynx normal Respiratory normal respiratory effort, lungs clear to auscultation Cardiovascular RRR, no murmur, no edema Gastrointestinal (Abdomen) normal bowel sounds, soft, nontender, no hepatosplenomegaly Musculoskeletal no cyanosis or clubbing, extremities motor strength 5/5 Skin no rashes, warm and dry Neurologic patellar DTR's 2+ bilat, sensation intact Psychiatric A+Ox3, euthymic affect Discharge Data Allergies Allergy/AdvReac Type Severity Reaction Status Date / Time napoles Allergy Intermediate Hives Verified 09/25/22 07:01 (green/hartman beans) doxycycline Allergy Intermediate Hives, Verified 09/25/22 07:01 vomiting Iodinated Contrast Media Allergy Intermediate Large Verified 09/25/22 07:01 hives, vomiting, "feeling hot" iodine Allergy Intermediate Hives, Verified 09/25/22 07:01 vomiting latex Allergy Intermediate Rash Verified 09/25/22 07:01 loperamide Allergy Intermediate Hives, Verified 09/25/22 07:01 vomiting meperidine Allergy Intermediate Hives, Verified 09/25/22 07:01 vomiting strawberry Allergy Intermediate Hives Verified 09/25/22 07:01 tomato Allergy Intermediate Hives Verified 09/25/22 07:01 prochlorperazine Allergy Mild N/V, Verified 09/25/22 07:01 itchiness Consultations 11/11/22 23:11 ED Decision to Admit Stat 11/12/22 00:34 Consult Vascular Surgery Routine 11/12/22 00:37 Consult Cardiology Routine Ordered Studies 11/11/22 21:32 CT head/brain wo con Stat 11/12/22 00:56 US doppler renal [US duplex renal artery] Routine Diabetes Follow up Diabetes Follow-up Needed for Newly Diagnosed Diabetes Hospital Course (1) Hypertensive emergency: 57 F with past medical history of hypertension (on losartan, metoprolol), with PRES, CAD (NSTEMI), cyclic vomiting, seizures (on Keppra), hyperlipidemia, anxiety, and depression who presented to the hospital, following recent discharge from outside hospital for CVA, with hyperemesis, headache, and chest pain. Now admitted to the hospital for management of hypertensive crisis, hyperemesis, elevated troponin, and headache. Hypertension urgency and central vertigo secondary to cerebellar stroke -Chronic hypertension managed on losartan, metoprolol. -BP 220/140s discovered on admission. Refractory s/p IV labetalol 10 mg x 2 doses, p.o. clonidine in the ED. -Patient largely asymptomatic, save for headache well-controlled with Tylenol. -S/p additional IV labetalol 10 mg x1 dose on admission. -BP at time of transfer to the floor 100s/80s. -Request made for records from recent stay at [facility] (per patient, for CVA). -Home metoprolol, losartan, and clonidine were held on admission due to low blood pressures after receiving IV labetalol. -Renal artery Doppler did not show any significant renal stenosis. -Renin and serum aldosterone were normal -Vascular surgery and cardiology was consulted, appreciate recommendations. --Vascular surgery states no vascular surgical intervention needed at this time. Should follow-up as an outpatient in December 2022. --Cardiology recommends to continue Plavix and to increase her Eliquis to 5 mg twice daily. As well as a 30-day court monitor which will be set up through cardiology. Should follow-up with cardiology in 3 to 4 weeks after discharge. -Patient's symptoms improved with Ativan. Most likely hypertensive crisis/vertigo is due to underlying cerebellum dysfunction/ataxia secondary to recent cerebellar CVA. -We will continue on Ativan 0.5 mg 3 times daily and monitor for symptoms. May consider SSRI for cerebellum dysfunction/ataxia. -Restarted home blood pressure medication on 11/14. We will stop metoprolol in favor for carvedilol. Start carvedilol 25 mg twice daily. Status post cerebellar stroke -Patient was seen in [facility] for CVA of the cerebellum on 11/07/2022. -Recommended outpatient vestibular therapy for vertigo. -Vertigo well controlled with Ativan at this time. Should be in conjunction with vestibular therapy at time of discharge. -Patient will most likely need inpatient rehab/SNF at time of discharge for cerebellar dysfunction status post cerebellar stroke. -PT OT will see patient today. Patient can return home per PT OT. No recommendation for inpatient rehab. -Plan for Ativan long-term will be to continue 1 week of 0.5 mg Ativan 3 times daily, 1 week 0.5 mg Ativan a 3 times daily as needed, and then 2 weeks of twice daily as needed. -Should follow-up with PCP and neurology regarding continuing treatment past 1 month. Vomiting/cyclic vomiting/cannabis hyperemesis syndrome -Chronic, presumed secondary to chronic cannabis use. Managed with as needed Zofran. -No GI pathology seen on last EGD done in 2019. -IV Zofran 4 mg every 4 hours as needed for nausea. -IV Protonix 40 mg twice daily. -Patient continues to have bouts of vomiting intermittently. May be related to vertigo from post cerebellar stroke or more in line with her cyclic vomiting that has been occurring for a long time -Will add on Carafate QID and pepcid twice daily on 11/14. Patient should continue on Carafate for 1 week and Pepcid for 2 weeks while continuing on home Protonix. Follow-up with PCP about ongoing care. Elevated troponin -History of CAD (s/p NSTEMI) -Troponin 37.4 on admission. -Per ED HPI, patient reported chest pain resolved with sublingual nitroglycerin. No chest pain reported on admission. Suspect demand ischemia. 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 mentioned she was scheduled for heart monitor placement tomorrow. Reviewed [facility] chart: No visit scheduled for November. Next cardiology appointment in January. -Last echocardiogram performed 01/14/2022 normal (EF = 60-65%; no wall motion abnormalities, no valvular stenosis or insufficiency). -Troponin peaked at 37.4 Headache -1010 prior to admission. + Light sensitivity. No history of migraine per review of chart. -CT head negative for hemorrhage or ischemia. -Well-controlled on IV Tylenol. -Tylenol 1000 mg p.o. every 8 hours -May be related to underlying cerebellum dysfunction/ataxia. Headaches well controlled after initiation of Ativan as stated above. Seizure disorder -Chronically managed on Keppra 1000 mg twice daily. REBECCA -Patient has CPAP machine at home. Anxiety -Continue home regimen (2) Nausea & vomiting: (3) Headache: (4) Elevated troponin: (5) Seizure disorder: (6) Hypertension: (7) Cyclic vomiting syndrome: (8) Peripheral arterial disease: (9) Obstructive sleep apnea: (10) GERD (gastroesophageal reflux disease): (11) CAD (coronary artery disease): Total Time Total Time Spent Total Time Spent (In Minutes): Less than 30 minutes Discharge Plan Discharge Items Patient Disposition: Home - Home Health Services Reason For Visit: CHEST PAIN, VOMITING Discharge Diagnosis: Hypertension urgency and central vertigo secondary to cerebellar stroke Activity: Resume your previous activity Non-emergency contact: Primary Care Provider Call non-emergency contact if: you have any medication questions, your pain is unusual for you and your temperature is above 101.5 Follow-up/Referrals: Teena Killian DO [Primary Care Provider] - 11/19/22 2:40 pm (Follow-up within 1 week) Diet: Heart Healthy Addtl Attending Provider Instructions: You were admitted to the hospital for hypertension urgency and central vertigo secondary to your cerebellar stroke . You were treated with restarting your home blood pressure medications and medication to help with vertigo. A discharge summary will be sent to your primary care physician to ensure continuity of care. Please bring this discharge summary with you to your next office appointment so that your provider can review it at that time. Follow-up appointments: * We have requested a follow-up appointment with your primary care physician within one week of discharge. Please call their office if you do not hear from them. Their number is [phone]. * Keep all your follow-up appointments as already scheduled. If you cannot make an appointment, notify your provider. Medications: Your medication list has been reviewed and reconciled upon discharge to ensure accuracy and continuity of care. An updated list of all your medications is included with your hospital discharge paperwork. Please review this list closely, and make note of any changes. * We sent a new medication called Ativan to your pharmacy. Take Ativan (0.5 mg) 1 tab 3 times a day for 1 week. After 1 week, continue using Ativan 3 times a day as needed for 1 week. Then take Ativan twice a day as needed and follow- up with your PCP about further treatment. * We sent a new medication called famotidine to your pharmacy. Take famotidine (20 mg) twice a day for 14 days. * We sent a new medication called sucralfate to your pharmacy. Take sucralfate (1 g) four times a day for 7 days. * We sent a new medication called carvedilol to your pharmacy. Take carvedilol (25 mg) 1 tab twice a day. * We increased the dose of your Eliquis. Take Eliquis 5 mg twice a day. A refill was sent to your pharmacy. * Please stop your metoprolol. * If you have any issues filling these prescriptions, please call [phone] and ask to leave a message for Dr. Denny. * Take your medications as instructed; do not skip a dose of your medicines. Make sure all of your doctors know every medicine you are taking (including lgyw-ysh-auvekxg medicines, vitamins, and supplements). Call your primary care provider before taking any new medicines (including over- the-counter medicines, vitamins, and supplements), because some of these may interact with your current medications, or may make your symptoms worse. Tell your primary care provider if you cannot afford your medications. CONTACT YOUR PRIMARY CARE PROVIDER if you experience any of the following: * Worsening of symptoms * Fever, chills, or fatigue * Difficulty following your treatment plan, or difficulty taking medications CALL 911 OR GO TO THE EMERGENCY DEPARTMENT if you experience any of the following: * Sudden, severe abdominal pain or nausea/vomiting * Severe chest pain, or chest pain that radiates (moves) to your jaw or arm * Sudden, severe shortness of breath or difficulty breathing Thank you for allowing us to participate in your care. Pending Studies at Discharge: No Stand-Alone Forms: My [facility] [email or web address], Smoking Cessation Medications and DC Order Prescriptions: New carvedilol 25 mg Tablet 25 mg PO BIDM 30 Days Qty: 60 0RF sucralfate 100 mg/mL Suspension 1 g PO QID 7 Days Qty: 280 0RF famotidine 20 mg Tablet 20 mg PO BID 14 Days Qty: 28 0RF Eliquis 5 mg Tablet 5 mg PO BID 30 Days Qty: 60 0RF lorazepam 0.5 mg tablet 0.5 mg PO TID PRN (Reason: vertigo) Qty: 40 0RF Rx Instructions: central vertigo Continued ondansetron HCl 4 mg tablet 4 mg PO Q8H PRN (Reason: nausea and vomiting) Qty: 20 0RF amitriptyline 25 mg tablet 25 mg PO HS Qty: 90 1RF clopidogrel [Plavix] 75 mg tablet 75 mg PO HS Qty: 90 1RF Patient Comments: PER DR MAYNARD OFFICE, TOLD TO STOP 7 DAYS BEFORE PROCEDURE Combivent Respimat 20-100 mcg/actuation mist 1 puff inhalation Q6H Qty: 4 3RF clonidine HCl 0.1 mg tablet 0.1 mg PO BID 90 Days Qty: 180 1RF Rx Instructions: Take if systolic BP is >160, diastolic BP >100- TAKE UP TO FOUR TIMES DAILY IF NEEDED PER PT venlafaxine 150 mg capsule,extended release 24hr 150 mg PO QAM Qty: 90 1RF cholecalciferol (vitamin D3) 50 mcg (2,000 unit) tablet 2,000 unit PO HS Qty: 90 1RF (DME) Auto Titrating CPAP Misc See Rx Instructions .ROUTE .MEDSUPPLY Qty: 1 0RF Rx Instructions: As directed Nightly levetiracetam [Keppra] 1,000 mg tablet 1,000 mg PO BID Qty: 180 1RF pantoprazole 40 mg tablet,delayed release (DR/EC) 40 mg PO BID Qty: 180 2RF multivitamin Tablet 1 tab PO QAM Medical Marijuana 1 dose PO DIRECTED PRN (Reason: Pain) losartan 50 mg Tablet 50 mg PO DAILY meclizine 25 mg tablet 25 mg PO UD PRN (Reason: as directed) rosuvastatin [Crestor] 40 mg Tablet 40 mg PO HS Discontinued apixaban 2.5 mg tablet 2.5 mg PO BID Qty: 180 1RF metoprolol succinate 50 mg tablet extended release 24 hr 50 mg PO DAILY Qty: 90 3RF Discharge Orders: Discharge Order (Routine); Ordered 11/15/22 Ordered By: Armin Denny Admission Data Admit Date/Time: 11/14/22 18:30 Attending Provider: Souleymane Lobato Admit Provider: Cecilia Sofia Primary Care Provider: Teena Killian Other Providers: Aron Drake ; Brigitte Abad ; Nat Day ; Alex Maynard ; Stacy Cardona ; Jessica Bolanos ; Toni Galan ; Sierra Phoenix ; [facility] Other Interventions: Discharge Summary Assessment (RN) Last Done: 11/15/22 14:23 Supervising Physician Co-Signing Physician Notes I personally examined the patient and verified all real points of history and exam, discussed case, and agree with decision making with Dr Denny feeling better, ate okay. No vomiting, nausea much improved. Would very much like to go home. Vitals noted, in general she is awake and alert pleasant but very fatigued and appears nauseated. Breathing unlabored no accessory muscle use good effort. Epigastric tenderness resolved. CBC, BMP noted. Cerebellar stroke/central vertigothis improved w ativan - discussed with patient that with her improvement, and complexity and possible side effect of switching her from venlafaxine to sertraline to try to treat central vertigo further, versus given how well she improved, hopefully seeing further improvement in the timeframe that we would be weaning her off of Ativan, particular with further vestibular therapy. She agreed that she would like to avoid shuffling her antidepressants if possible, and we decided that a reasonable approach would be to see how she is doing over the next 2 weeksif she is improving, we will simply utilize Ativan and a slow down titration, as well as vestibular PT; if she is not getting better, that still allows adequate "lead time" for switching to sertraline. Nausea and vomitingseems to have been a "moving target" initially central vertigo related vomiting that improved beautifully with Ativan, yesterday it felt more to her like an episode of her cyclic vomitinghowever, I suspect with this evolution of epigastric pain that she probably has a degree of stress- induced gastritis/working towards PUD as the culprit. Certainly this would fit with her severity of acute illness recentlyProtonix twice daily, Pepcid twice daily, Carafate 4 times daily has affected improvement in her symptoms. We will send home on this, with all 3 for a week, next week drop to Carafate, in 2 weeks drop the Pepcid, and slowly wean the Protonix as an outpatient if possible. Labile/refractory hypertensionHome, seems to have responded fairly well to carvedilolwill switch her metoprolol to this. Anticoagulated with Eliquis for DVT prophylaxis. Otherwise as above. Resident Activity Tracking Resident Involvement: Resident Care Provided Care Provided: Adult Hospital Medicine
[2022-11-15 07:25] LABS: Hematocrit (blood only) 36.1 % (37.0-47.0); Mean Corpuscular Hemoglobin 27.3 pg (25.0-34.0); Mean Corpuscular Hgb Conc 33.2 g/dL (32.0-36.0); Mean Platelet Volume 9.9 fL (9.4-12.4); Platelet Count 454 K/uL (130-400); RDW Coefficient of Variation 15.1 % (11.5-14.5); RDW Standard Deviation 44.9 fL (36.4-46.3); White Blood Count 10.29 K/ul (4.8-10.8)
[2022-11-15 07:40] LABS: BUN Creatinine Ratio 14.9 (10-20); Calcium 9.6 mg/dl (8.6-10.3); Est GFR (Non-African American) 90.6 ml/min; Potassium 3.3 mmol/L (3.5-5.1)
[2022-11-15 08:00] VITALS: TEMP 99.1; O2SAT 96
[2022-11-15] MEDS: APIXABAN 5 MG TABLET PO SCH (08:49)
[2022-11-15] MEDS: FAMOTIDINE 20 MG TAB PO SCH (08:49)
[2022-11-15] MEDS: levETIRAcetam 500 MG TAB PO SCH (08:49)
[2022-11-15] MEDS: VENLAFAXINE HCL XR 150 MG CAPXR PO SCH (08:50)
[2022-11-15] MEDS: LOSARTAN POTASSIUM 50 MG TAB PO SCH (08:50)
[2022-11-15] MEDS: carvediloL 25 MG TAB PO SCH (08:50)
[2022-11-15] MEDS: PANTOprazole 40 MG in SYRINGE 0 ML IV SCH (08:51)
[2022-11-15] MEDS: SUCRALFATE 1 GM/10 ML UDC PO SCH ×2 (08:51→14:01)
[2022-11-15] MEDS: amLODIPine BESYLATE 5 MG TAB PO SCH (08:51)
[2022-11-15] MEDS: LORazepam 0.5 MG TAB PO SCH ×2 (08:56→14:01)
[2022-11-15 09:32] VITALS: BP 128/88
[2022-11-15 14:29] VITALS: PULSE 84
--- NOTE | 2022-11-15 18:38 | Billing Data ---
Date of Service November 15, 2022 Coding Level of Care Code 65629 IN/OBS DISCH 30 MIN/LESS
== END 2022-11-15 15:33 | disposition home health service (06) | DRG 149 ==
LOC: 2N 19:44 → ED 19:44 → SUATTDRO 23:45 → 2N 11-12 01:36

== ENCOUNTER 2022-11-16 05:36 | Inpatient (IN) ==
[2022-11-16] MEDS ORDERED: SODIUM CHLORIDE 0.9% 1000ML 1,000 ML IV STA (05:39)
[2022-11-16] MEDS ORDERED: ONDANSETRON INJ 2 MG/ML 2 ML VIAL IV STA ×2 (05:39→05:55)
[2022-11-16] MEDS ORDERED: LABETALOL HCL IV 5 MG/ML 20ML IV STA ×2 (05:55→06:39)
[2022-11-16] MEDS ORDERED: cloNIDine HCL 0.1 MG TAB PO ONE (05:55)
[2022-11-16] MEDS ORDERED: carvediloL 25 MG TAB PO ONE (05:55)
[2022-11-16] MEDS ORDERED: LOSARTAN POTASSIUM 50 MG TAB PO STA (05:55)
[2022-11-16 06:27] LABS: Basophils # (auto) 0.15 K/uL (0-0.2); Basophils % (auto) 1.3 %; Eosinophils # (auto) 0.33 K/uL (0-0.50); Hematocrit (blood only) 35.6 % (37.0-47.0); Hemoglobin 11.9 g/dl (12.0-16.0); Immature Granulocytes # (auto) 0.05 K/uL (0.01-0.20); Immature Granulocytes % (auto) 0.4 %; Lymphocytes # (auto) 2.51 K/uL (1.2-3.4); Lymphocytes % (auto) 22.5 %; Mean Corpuscular Hemoglobin 27.9 pg (25.0-34.0); Mean Corpuscular Hgb Conc 33.4 g/dL (32.0-36.0); Mean Corpuscular Volume 83.4 fL (80.0-100.0); Mean Platelet Volume 10.2 fL (9.4-12.4); Monocytes # (auto) 1.01 K/uL (0.11-0.59); Monocytes % (auto) 9.1 %; Neutrophils # (auto) 7.11 K/uL (1.40-6.50); Neutrophils % (auto) 63.7 %; Platelet Count 462 K/uL (130-400); RDW Coefficient of Variation 15.2 % (11.5-14.5); RDW Standard Deviation 45.8 fL (36.4-46.3); Red Blood Count 4.27 M/uL (4.20-5.40); White Blood Count 11.16 K/ul (4.8-10.8)
[2022-11-16 06:31] LABS: Albumin Globulin Ratio 1.6 (0.9-2); Albumin Level 4.5 gm/dl (3.4-5.0); Bilirubin,Total 0.3 mg/dl (0.2-1.0); Calcium 9.5 mg/dl (8.6-10.3); Creatinine Clr Calc Pharmacy 72.6 ml/min; Est GFR (African American) 77.6 ml/min; Globulin 2.8 gm/dl (2.5-4.0); Potassium 3.5 mmol/L (3.5-5.1); Total Protein 7.3 gm/dl (6.0-8.3)
--- NOTE | 2022-11-16 06:45 | CT Scan Report ---
CT SCAN OF THE BRAIN WITHOUT IV CONTRAST CLINICAL HISTORY: Vertigo. Reported history of recent stroke. COMPARISON STUDY: CT of the brain dated 11/11/2022. MRI of the brain dated 12/12/2020. TECHNIQUE: Unenhanced axial CT scan of the brain is performed from the vertex to the skull base. A do se lowering technique was utilized adhering to the principles of ALARA. CT DOSE: 614.27 mGy.cm FINDINGS: Brain parenchyma: There is age-related involutional change noting moderate age-advanced subcortical a nd periventricular microangiopathic disease. There is no hemorrhage, mass effect, or evidence of acut e territorial ischemia by CT criteria. Chance-white matter differentiation is preserved. No extra-axial fluid collection is seen. Ventricles, sulci, cisterns: Prominent secondary to involutional change. Intracranial vasculature: There is atherosclerotic calcification of the cavernous carotid arteries. Calvarium: Unremarkable. Sinuses and mastoids: The visualized paranasal sinuses are clear. The mastoid air cells are well pneu matized. Orbits: The bony orbits are grossly intact. There are bilateral ocular lens implants. IMPRESSION: There is no hemorrhage, mass effect, or evidence of acute territorial ischemia by CT megha kapoor. ACT 112: Negative or not required by law. Electronically signed by: Armin Sylvester M.D. 11/16/2022 6:43 AM
--- NOTE | 2022-11-16 07:42 | Emergency Department Note ---
Impression & Plan Hypertensive urgency, Vertigo, Vomiting ED Provider Note CHIEF COMPLAINT: Vomiting, headache, dizzy HISTORY OF PRESENT ILLNESS: This 57-year-old female patient with history of recent cerebellar stroke and subsequent vertigo presents to the emergency department with complaints of similar symptoms. The patient woke up early this morning with the room spinning, nausea and vomiting. The patient states she had a stroke and was evaluated at an outside hospital last week. She presented to our hospital and was then admitted for hypertensive urgency and associated vertigo. Patient was discharged yesterday. She states she did take her blood pressure medications last night. This morning she was not able to tolerate them due to the vomiting. REVIEW OF SYSTEMS: A review of systems was performed with positives and pertinent negatives listed in the history of present illness. 10 systems were reviewed and are otherwise negative. ALLERGIES: see below MEDICATIONS: see below PMH: see below SOCIAL HISTORY: see below DDx:Benign positional vertigo, hypertensive urgency, stroke, intracranial hemorrhage, electrolyte abnormalities, cardiac sources, as well as other pathologies. PHYSICAL EXAM: Vital signs reviewed. General: Somewhat ill-appearing 57-year-old female, in some discomfort. HEENT: No scleral icterus, PERRLA, neck supple. Moist mucous membranes, edentulous Cardiovascular: Regular rate and rhythm, no extra sounds. Pulmonary: Clear to auscultation bilaterally, normal work of breathing. Abdomen: Soft, nontender, nondistended, positive bowel sounds. Musculoskeletal: Atraumatic, no peripheral edema. Neurologic: Patient awake alert and oriented x 3, speech is clear. 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 Skin: Warm, dry, no rash EMERGENCY DEPARTMENT COURSE/MDM: This patient was evaluated and appeared to be in some discomfort but no distress. IV access was obtained and laboratory work was drawn. The patient was hydrated with normal saline solution, given IV Zofran for her nausea. She did receive benzodiazepines in route with EMS. She stated her dizziness was better however her blood pressure is noted to be 227/140 upon arrival. Patient was given her home doses of losartan, clonidine, carvedilol in addition to 10 mg of IV labetalol. Patient's blood pressure was slightly improved to 190 systolic about 45 minutes later. She was given 20 mg of IV labetalol. Head CT was performed and is negative for acute intracranial abnormality. The patient is anticoagulated on Eliquis. Patient continued to be symptomatic and blood pressure remained elevated despite the above interventions. The patient was discussed with Dr. Cedeno of the hospitalist service for admission and further management. MONITORING: An order for cardiac monitoring was placed and the patient is noted to be in a normal sinus rhythm at 94 beats per minute. RADIOLOGY: Head CT to my review reveals no evidence of acute intracranial hemorrhage. Otherwise defer to radiology. EKG: Normal sinus rhythm at 90 bpm. Possible left atrial enlargement left axis deviation QTc is 474. No PVC, no PAC. DISPOSITION: Admission I have personally spent 30 minutes of critical care time in the direct management of this patient. This was a life/limb threatening event. This 30 minutes is in excess of all separately billable procedures. Past Med/Surg History Medical History Anxiety disorder CAD (coronary artery disease) Mild-moderate non-obstructive CAD per 2017 cardiac cath Cannabinoid hyperemesis syndrome Carotid stenosis < 50% stenosis B/L per US 12/16/18 Cervical disc disorder Full ROM per pt Cyclic vomiting syndrome Cyclic vomiting syndrome no GI pathology on EGD, US, CT of abd/pelvis, celiac testing and GES per 04/2020 GI consult: biliary w/u and upper GI study recommended (upper GI study neg per d/c summary), cannabis cessation, continue Protonix and prn Zofran > currently controlled Depression GERD (gastroesophageal reflux disease) History of COVID-19 03/18/22, [facility] [place], hospitalized day after diagnosis due to vomiting blood, discharged on 03/22/22; fever, vomiting, body chills and aches, diarr hea > resolved currently. 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 Maynard Posterior reversible encephalopathy syndrome (PRES) Postoperative nausea Prediabetes diet controlled PRES (posterior reversible encephalopathy syndrome) has since caused seizures that started in 2019. following with PCP, last seizure per pt 08/2019 per PCP records Proteinuria Pulmonary emphysema well controlled per pt Renal artery stenosis following with Dr Maynard Seizure Seizures 2019 r/t hypertensive emergency > encephalopathy. last seizure 2019 Tachycardia Takotsubo cardiomyopathy 2016. Admitted [facility], full cardiac workup including cath. EF at the time 40%, now subsequent echos. Follows with Dr. Rodriguez Transient cerebrovascular ischemia Per records, pt unaware Upper gastrointestinal bleed 2021, resolved Surgical History H/O cervical spine surgery ACDF C4-7 Dr. [place]: Grade 1 view, Bojorquez#2 and ETT#7.5 atraumatic x 1. No issues per anesthesia postop progress note. ROM WNL History of anesthesia reaction Low O2 sats during colonoscopy 04/2022 at [facility] and post-procedure elevated BP. Per post-op anesthesia progress note, O2 96-100% RA and "Pt has increased BP 2ndary to abdominal pain. Pt also has nausea w/ dry heaves. Pt to have CT s can per Dr Patten." History of cardiac cath 2017 > no stents History of cataract surgery bilat History of esophagogastroduodenoscopy (EGD) History of hernia surgery right inguinal hernia repair History of hysterectomy History of ovarian cystectomy History of tooth extraction S/P aortobifemoral bypass surgery Sep 2021 [facility] Status post surgery RLE thrombectomy Family History Father Family history of stomach cancer Malignant neoplasm of esophagus Stomach cancer Myocardial infarction Stroke Uncle Throat cancer Family history of cancer FAMILY HISTORY OF CANCER - UNCLE - VOCAL CORDS FAMILY HISTORY OF CANCER - AUNT - ? KIND Grandmother (Maternal) Bone cancer Breast cancer Mother No problems noted. Brother Lung cancer Other Family history of diabetes mellitus No family history of adverse response to anesthesia No pertinent family history Denies family history of Colon cancer Ovarian cancer Prostate cancer Crohn's disease IBD (inflammatory bowel disease) Social History Smoking Status: Former smoker packs per day: 2; Second Hand Exposure: No; Hx Alcohol Use: No Hx Substance Use: No Preferred Language: Citizen Of [place] Communication Ability: Unable Visual Impairment: No Limitations Hearing Ability: Normal Compensation Consultant Required: No Beliefs That Will Affect Care: None marital status: Current Living Situation: Spouse Current Living Situation Comment: [place] current occupational status: employed 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 Feels Safe at Home: Yes Childhood Exposure to Second-Hand Smoke: Yes caffeine: Yes (1 cup of coffee) during the past year weight has: other Dental Care, Regularly: No Physical Activity Frequency: Daily Physical Activity Frequency Comment: walking Seatbelt Use: always Sunscreen Use: Yes Assistive Devices: Cane and Walker Allergies Allergies Allergy/AdvReac Type Severity Reaction Status Date / Time napoles Allergy Intermediate Hives Verified 09/25/22 07:01 (green/hartman beans) doxycycline Allergy Intermediate Hives, Verified 09/25/22 07:01 vomiting Iodinated Contrast Media Allergy Intermediate Large Verified 09/25/22 07:01 hives, vomiting, "feeling hot" iodine Allergy Intermediate Hives, Verified 09/25/22 07:01 vomiting latex Allergy Intermediate Rash Verified 09/25/22 07:01 loperamide Allergy Intermediate Hives, Verified 09/25/22 07:01 vomiting meperidine Allergy Intermediate Hives, Verified 09/25/22 07:01 vomiting strawberry Allergy Intermediate Hives Verified 09/25/22 07:01 tomato Allergy Intermediate Hives Verified 09/25/22 07:01 prochlorperazine Allergy Mild N/V, Verified 09/25/22 07:01 itchiness Home Meds Home Medications Medication Instructions Recorded Confirmed multivitamin 1 tab PO QAM 12/16/18 11/11/22 rosuvastatin 40 mg tablet (Crestor) 40 mg PO HS 09/11/21 11/11/22 Medical Marijuana 1 dose PO DIRECTED PRN Pain 09/12/22 11/11/22 losartan 50 mg tablet 50 mg PO DAILY 09/25/22 11/11/22 meclizine 25 mg tablet 25 mg PO UD PRN as directed 11/11/22 11/11/22 Previous Rx's Medication Instructions Recorded ondansetron HCl 4 mg tablet 4 mg PO Q8H PRN nausea and 12/18/21 vomiting #20 tabs pantoprazole 40 mg tablet,delayed 40 mg PO BID #180 tabs 03/27/22 release amitriptyline 25 mg tablet 25 mg PO HS #90 tabs 05/31/22 clopidogrel 75 mg tablet (Plavix) 75 mg PO HS #90 tabs 06/17/22 cholecalciferol (vitamin D3) 50 2,000 unit PO HS #90 tabs 07/03/22 mcg (2,000 unit) tablet venlafaxine 150 mg 150 mg PO QAM #90 caps 07/03/22 capsule,extended release 24 hr Auto Titrating CPAP #1 ea 07/15/22 levetiracetam 1,000 mg tablet 1,000 mg PO BID #180 tabs 10/02/22 (Keppra) ipratropium 20 mcg-albuterol 100 1 puff inhalation Q6H #4 grams 10/31/22 mcg/actuation mist for inhalation (Combivent Respimat) clonidine HCl 0.1 mg tablet 0.1 mg PO BID 3 months #180 tabs 11/08/22 apixaban 5 mg tablet (Eliquis) 5 mg PO BID 30 days #60 tabs 11/15/22 carvedilol 25 mg tablet 25 mg PO BIDM 30 days #60 tabs 11/15/22 famotidine 20 mg tablet 20 mg PO BID 14 days #28 tabs 11/15/22 lorazepam 0.5 mg tablet 0.5 mg PO TID PRN vertigo #40 tabs 11/15/22 sucralfate 100 mg/mL oral 1 g (10 mL) PO QID 7 days #280 mL 11/15/22 suspension Results & Data (ED) Vital Signs Vital Signs - 24 hr 11/16/22 05:36 11/16/22 05:39 11/16/22 05:52 Temperature 36.8 C Temperature Source Oral Pulse Rate 97 H 94 H Pulse Rate [Apical] 96 H Pulse Rate from SpO2 Sensor Respiratory Rate 16 16 Respiratory Effort / Characteristics Non-Labored Spontaneous Respiratory Depth Normal Blood Pressure 227/140 H Blood Pressure [Left Arm] Blood Pressure [Right Arm] 223/142 H Blood Pressure Mean 169 Blood Pressure Mean [Left Arm] Blood Pressure Mean [Right Arm] 169 Pulse Oximetry 96 97 Oxygen Delivery Method Room Air Sepsis Recent Fever Within 48 Hours No Sepsis New/Unexplained Change in Mental Status No Sepsis Action Taken by Nursing No Action Required 11/16/22 06:28 11/16/22 06:30 11/16/22 06:59 Temperature Temperature Source Pulse Rate 84 Pulse Rate [Apical] 90 86 Pulse Rate from SpO2 Sensor Respiratory Rate 16 16 17 Respiratory Effort / Characteristics Respiratory Depth Blood Pressure Blood Pressure [Left Arm] 208/115 H Blood Pressure [Right Arm] 224/157 H Blood Pressure Mean Blood Pressure Mean [Left Arm] 146 Blood Pressure Mean [Right Arm] 179 Pulse Oximetry 97 96 95 Oxygen Delivery Method Room Air Room Air Room Air Sepsis Recent Fever Within 48 Hours Sepsis New/Unexplained Change in Mental Status Sepsis Action Taken by Nursing 11/16/22 07:10 11/16/22 07:20 11/16/22 07:30 Temperature Temperature Source Pulse Rate 91 H 83 Pulse Rate [Apical] Pulse Rate from SpO2 Sensor 89 84 Respiratory Rate 12 18 Respiratory Effort / Characteristics Respiratory Depth Blood Pressure 199/117 H Blood Pressure [Left Arm] Blood Pressure [Right Arm] Blood Pressure Mean 144 Blood Pressure Mean [Left Arm] Blood Pressure Mean [Right Arm] Pulse Oximetry 96 96 Oxygen Delivery Method Room Air Room Air Sepsis Recent Fever Within 48 Hours Sepsis New/Unexplained Change in Mental Status Sepsis Action Taken by Nursing 11/16/22 07:30 Temperature Temperature Source Pulse Rate 90 Pulse Rate [Apical] Pulse Rate from SpO2 Sensor 91 H Respiratory Rate 17 Respiratory Effort / Characteristics Respiratory Depth Blood Pressure Blood Pressure [Left Arm] Blood Pressure [Right Arm] Blood Pressure Mean Blood Pressure Mean [Left Arm] Blood Pressure Mean [Right Arm] Pulse Oximetry 97 Oxygen Delivery Method Room Air Sepsis Recent Fever Within 48 Hours Sepsis New/Unexplained Change in Mental Status Sepsis Action Taken by Long-Term Medications Current Medication List: was personally reviewed by me Laboratory Data Attestation: I reviewed the patient's lab results. 11/16/22 05:41 11/16/22 05:41 Lab Results 11/16/22 11/16/22 11/16/22 Range/Units 05:41 05:41 05:42 WBC 11.16 H (4.8-10.8) K/ul RBC 4.27 (4.20-5.40) M/uL Hgb 11.9 L (12.0-16.0) g/dl Hct 35.6 L (37.0-47.0) % MCV 83.4 (80.0-100.0) fL MCH 27.9 (25.0-34.0) pg MCHC 33.4 (32.0-36.0) g/dL RDW Std Deviation 45.8 (36.4-46.3) fL RDW Coeff of Jose Luis 15.2 H (11.5-14.5) % Plt Count 462 H (130-400) K/uL MPV 10.2 (9.4-12.4) fL Immature Gran % (Auto) 0.4 % Neut % (Auto) 63.7 % Lymph % (Auto) 22.5 % [place] % (Auto) 9.1 % Eos % (Auto) 3.0 % Baso % (Auto) 1.3 % Neut # (Auto) 7.11 H (1.40-6.50) K/uL Lymph # (Auto) 2.51 (1.2-3.4) K/uL [place] # (Auto) 1.01 H (0.11-0.59) K/uL Eos # (Auto) 0.33 (0-0.50) K/uL Baso # (Auto) 0.15 (0-0.2) K/uL Immature Gran # (Auto) 0.05 (0.01-0.20) K/uL Sodium 134 L (136-145) mmol/L Potassium 3.5 (3.5-5.1) mmol/L Chloride 100 (98-107) mmol/L Carbon Dioxide 24 (21-32) mmol/L Anion Gap 10 (3-11) BUN 19 (6-23) mg/dl Creatinine 0.95 (0.6-1.2) mg/dl Est Cr Clr Drug Dosing 72.6 ml/min Est GFR ( Amer) 77.6 ml/min Est GFR (Non-Af Amer) 67.0 ml/min BUN/Creatinine Ratio 20.0 (10-20) Glucose 159 H (70-99(Fasting)) mg/dl Calcium 9.5 (8.6-10.3) mg/dl Total Bilirubin 0.3 (0.2-1.0) mg/dl AST 35 (13-39) U/L ALT 31 (7-52) U/L Alkaline Phosphatase 71 (34-104) U/L Total Protein 7.3 (6.0-8.3) gm/dl Albumin 4.5 (3.4-5.0) gm/dl Globulin 2.8 (2.5-4.0) gm/dl Albumin/Globulin Ratio 1.6 (0.9-2) Lipase 34 (11-82) U/L SARS-CoV-2, RNA, NAAT NEGATIVE (NEGATIVE) Administered Medications Discontinued Medications Carvedilol (Carvedilol 25 Mg Tab) 25 mg PO NOW ONE Stop: 11/16/22 05:56 Last Admin: 11/16/22 06:33 Dose: 25 mg Documented By: PEPE Clonidine HCl (Clonidine Hcl 0.1 Mg Tab) 0.1 mg PO NOW ONE Stop: 11/16/22 05:56 Last Admin: 11/16/22 06:09 Dose: 0.1 mg Documented By: PEPE Sodium Chloride (Nss 1000ml) 1,000 mls @ 999 mls/hr IV .Q1H1M STA Stop: 11/16/22 06:39 Last Admin: 11/16/22 05:54 Dose: 999 mls/hr Documented By: PEPE Labetalol HCl (Labetalol Hcl Iv 5 Mg/Ml 20ml) 10 mg IV NOW STA Stop: 11/16/22 05:56 Last Admin: 11/16/22 06:06 Dose: 10 mg Documented By: PEPE Co-signed By: OMNA Labetalol HCl (Labetalol Hcl Iv 5 Mg/Ml 20ml) 20 mg IV NOW STA Stop: 11/16/22 06:40 Last Admin: 11/16/22 06:44 Dose: 20 mg Documented By: PEPE Co-signed By: MONA Losartan Potassium (Losartan Potassium 50 Mg Tab) 50 mg PO NOW STA Stop: 11/16/22 05:56 Last Admin: 11/16/22 06:33 Dose: 50 mg Documented By: PEPE Ondansetron HCl (Ondansetron Inj 2 Mg/Ml 2 Ml Vial) 4 mg IV NOW STA Stop: 11/16/22 05:40 Last Admin: 11/16/22 05:54 Dose: 4 mg Documented By: PEPE Ondansetron HCl (Ondansetron Inj 2 Mg/Ml 2 Ml Vial) 4 mg IV NOW STA Stop: 11/16/22 05:56 Last Admin: 11/16/22 06:05 Dose: Not Given Documented By: PEPE Imaging Data Radiologist's Impression: Head CT 11/16/22 05:57 CT SCAN OF THE BRAIN WITHOUT IV CONTRAST CLINICAL HISTORY: Vertigo. Reported history of recent stroke. COMPARISON STUDY: CT of the brain dated 11/11/2022. MRI of the brain dated 12/12/2020. TECHNIQUE: Unenhanced axial CT scan of the brain is performed from the vertex to the skull base. A dose lowering technique was utilized adhering to the principles of ALARA. CT DOSE: 614.27 mGy.cm FINDINGS: Brain parenchyma: There is age-related involutional change noting moderate age- advanced subcortical and periventricular microangiopathic disease. There is no hemorrhage, mass effect, or evidence of acute territorial ischemia by CT criteria. Chance-white matter differentiation is preserved. No extra-axial fluid collection is seen. Ventricles, sulci, cisterns: Prominent secondary to involutional change. Intracranial vasculature: There is atherosclerotic calcification of the cavernous carotid arteries. Calvarium: Unremarkable. Sinuses and mastoids: The visualized paranasal sinuses are clear. The mastoid air cells are well pneumatized. Orbits: The bony orbits are grossly intact. There are bilateral ocular lens implants. IMPRESSION: There is no hemorrhage, mass effect, or evidence of acute territorial ischemia by CT criteria. ACT 112: Negative or not required by law. Electronically signed by: Armin Sylvester M.D. 11/16/2022 6:43 AM Discharge Plan Visit Data Chief Complaint: Nausea Stated Complaint: WEAKNESS/NAUSEA/VOMITING ED Provider: Estephania Medina Discharge Problem: Hypertensive urgency, Vertigo, Vomiting Forms Stand Alone Forms: My [facility] Prescriptions Prescriptions: No Action ondansetron HCl 4 mg tablet 4 mg PO Q8H PRN (Reason: nausea and vomiting) Qty: 20 0RF amitriptyline 25 mg tablet 25 mg PO HS Qty: 90 1RF clopidogrel [Plavix] 75 mg tablet 75 mg PO HS Qty: 90 1RF Patient Comments: PER DR MAYNARD OFFICE, TOLD TO STOP 7 DAYS BEFORE PROCEDURE Combivent Respimat 20-100 mcg/actuation mist 1 puff inhalation Q6H Qty: 4 3RF clonidine HCl 0.1 mg tablet 0.1 mg PO BID 90 Days Qty: 180 1RF Rx Instructions: Take if systolic BP is >160, diastolic BP >100- TAKE UP TO FOUR TIMES DAILY IF NEEDED PER PT venlafaxine 150 mg capsule,extended release 24hr 150 mg PO QAM Qty: 90 1RF cholecalciferol (vitamin D3) 50 mcg (2,000 unit) tablet 2,000 unit PO HS Qty: 90 1RF (DME) Auto Titrating CPAP Misc See Rx Instructions .ROUTE .MEDSUPPLY Qty: 1 0RF Rx Instructions: As directed Nightly levetiracetam [Keppra] 1,000 mg tablet 1,000 mg PO BID Qty: 180 1RF pantoprazole 40 mg tablet,delayed release (DR/EC) 40 mg PO BID Qty: 180 2RF multivitamin Tablet 1 tab PO QAM Medical Marijuana 1 dose PO DIRECTED PRN (Reason: Pain) losartan 50 mg Tablet 50 mg PO DAILY meclizine 25 mg tablet 25 mg PO UD PRN (Reason: as directed) carvedilol 25 mg Tablet 25 mg PO BIDM 30 Days Qty: 60 0RF sucralfate 100 mg/mL Suspension 1 g PO QID 7 Days Qty: 280 0RF famotidine 20 mg Tablet 20 mg PO BID 14 Days Qty: 28 0RF Eliquis 5 mg Tablet 5 mg PO BID 30 Days Qty: 60 0RF lorazepam 0.5 mg tablet 0.5 mg PO TID PRN (Reason: vertigo) Qty: 40 0RF Rx Instructions: central vertigo rosuvastatin [Crestor] 40 mg Tablet 40 mg PO HS Referrals Referrals: Teena Killian DO [Primary Care Provider] -
--- NOTE | 2022-11-16 07:42 | Electrocardiogram Report ---
Test Reason : Blood Pressure : / mmHG Vent. Rate : 098 BPM Atrial Rate : 098 BPM P-R Int : 198 ms QRS Dur : 086 ms QT Int : 372 ms P-R-T Axes : 051 -37 046 degrees QTc Int : 474 ms Normal sinus rhythm Possible Left atrial enlargement Left axis deviation Abnormal ECG When compared with ECG of 11-NOV-2022 19:51, Borderline criteria for Inferior infarct are now Present Confirmed by Pako Holland ([id number]) on 11/16/2022 7:42:30 AM Referred By: Confirmed By:Tereso Holland
[2022-11-16 08:52] LABS: Appearance Urine Clear (Clear); Bacteria Urine Automated Negative (Negative); Bilirubin Urine Negative (Negative); Blood Urine 2+ (Negative); Cast Urine Automated 0 /lpf (0-5); Color Urine Yellow; Epithelial Cell Urine Auto >30 /lpf (0-5); Glucose Urine UA Negative (Negative); Ketones Urine Negative (Negative); Leukocyte Esterase Urine Negative (Negative); Nitrite Urine Negative (Negative); Protein Urine Negative (Negative); RBC Urine Automated 0-4 /hpf (0-4); Specific Gravity Urine 1.012 (1.000-1.030); Urobilinogen Urine Negative (Negative)
[2022-11-16] MEDS ORDERED: ALUMINUM/MAGNESIUM SUSP 30 ML UDC PO PRN (11:28)
[2022-11-16] MEDS ORDERED: LORazepam 0.5 MG TAB PO PRN (11:28)
[2022-11-16] MEDS ORDERED: ONDANSETRON INJ 2 MG/ML 2 ML VIAL IV PRN (11:28)
[2022-11-16] MEDS ORDERED: ACETAMINOPHEN 325 MG TAB PO PRN (11:28)
[2022-11-16] MEDS ORDERED: PROMETHAZINE HCL 6.25 MG in SODIUM CHLORIDE 0.9% 50 ML IV PRN (11:28)
[2022-11-16] MEDS ORDERED: MAGNESIUM HYDROXIDE SUSP 30 ML UDC PO PRN (11:28)
[2022-11-16] MEDS ORDERED: IPRATROPIUM BROMIDE/ALBUTEROL respimat INH INH SCH (11:28)
[2022-11-16] MEDS ORDERED: MEDICAL MARIJUANA PO PRN (11:43)
--- NOTE | 2022-11-16 12:17 | Neurology Consultation ---
Date of Consultation November 16, 2022 Assessment & Plan (1) Vertigo: Plan NEUROLOGY CONSULTATION Assessment & Plan: Impression: pt with recent cerebellar ischemic stroke and likely related vertigo symptoms, which is expected as it will take several weeks for cerebellar symptoms to improve as she goes through rehab. non focal exam today, not suspecting new stroke. Recommendations: -no need for mri at this point. continue stroke risk modifications. continue eliquis. continue rehab for her stroke. not much to add from neurology at this point. will sign off. Dr. Prabhu Manriquez MD [facility] Neurology Chief Complaint: dizzy History of Present Illness: pt was discharged yesterday and she came back today again due to feeling dizzy and vertigo. she had b/l cerebellar stroke recently and was inpt. pt returned due to feeling anxiety and dizzy. this morning pt feeling much better. CT head negative. she had recently extensive work up including CTA head/neck which was negative. mri brain did show b/l cerebellar stroke. BP much improved now. Past Medical History: See chart Meds: See chart I personally reviewed all of the medications Social & Family History: See chart Review of Systems: Per initial HPI on admission. Physical Exam: GEN: NAD HEENT: Normocephalic Neuro: Mental status:A & O x 3.No dysarthria or aphasia.No neglect. Fluent speech. No apraxia Cranial Nerves:II-XII intact Motor:Normal bulk and tone,5/5 strength x 4 extremities Coordination:Intact FTN testing Reflexes: down going toes osorio Sensation: Intact x 4 extremities to touch Chart reviewed I have spent more than 50% educating patient about potential diagnosis and neurological evaluation and coordinating care with patient's treatment team. Total time spent (including chart review and coordination of care): 80 min (this includes chart review). History of Present Illness Attending Physician: Souleymane Lobato DO Allergies Allergy/AdvReac Type Severity Reaction Status Date / Time napoles Allergy Intermediate Hives Verified 09/25/22 07:01 (green/hartman beans) doxycycline Allergy Intermediate Hives, Verified 09/25/22 07:01 vomiting Iodinated Contrast Media Allergy Intermediate Large Verified 09/25/22 07:01 hives, vomiting, "feeling hot" iodine Allergy Intermediate Hives, Verified 09/25/22 07:01 vomiting latex Allergy Intermediate Rash Verified 09/25/22 07:01 loperamide Allergy Intermediate Hives, Verified 09/25/22 07:01 vomiting meperidine Allergy Intermediate Hives, Verified 09/25/22 07:01 vomiting strawberry Allergy Intermediate Hives Verified 09/25/22 07:01 tomato Allergy Intermediate Hives Verified 09/25/22 07:01 prochlorperazine Allergy Mild N/V, Verified 09/25/22 07:01 itchiness Home Medications Medication Instructions Recorded Confirmed Type multivitamin 1 tab PO QAM 12/16/18 11/11/22 History rosuvastatin 40 mg tablet (Crestor) 40 mg PO HS 09/11/21 11/11/22 History ondansetron HCl 4 mg tablet 4 mg PO Q8H PRN nausea and 12/18/21 11/11/22 Rx vomiting #20 tabs pantoprazole 40 mg tablet,delayed 40 mg PO BID #180 tabs 03/27/22 11/11/22 Rx release amitriptyline 25 mg tablet 25 mg PO HS #90 tabs 05/31/22 11/11/22 Rx clopidogrel 75 mg tablet (Plavix) 75 mg PO HS #90 tabs 06/17/22 11/11/22 Rx cholecalciferol (vitamin D3) 50 2,000 unit PO HS #90 tabs 07/03/22 11/11/22 Rx mcg (2,000 unit) tablet venlafaxine 150 mg 150 mg PO QAM #90 caps 07/03/22 11/11/22 Rx capsule,extended release 24 hr Auto Titrating CPAP #1 ea 07/15/22 10/02/22 Rx Medical Marijuana 1 dose PO DIRECTED PRN Pain 09/12/22 11/11/22 History losartan 50 mg tablet 50 mg PO DAILY 09/25/22 11/11/22 History levetiracetam 1,000 mg tablet 1,000 mg PO BID #180 tabs 10/02/22 11/11/22 Rx (Keppra) ipratropium 20 mcg-albuterol 100 1 puff inhalation Q6H #4 grams 10/31/22 11/11/22 Rx mcg/actuation mist for inhalation (Combivent Respimat) clonidine HCl 0.1 mg tablet 0.1 mg PO BID 3 months #180 tabs 11/08/22 11/11/22 Rx meclizine 25 mg tablet 25 mg PO UD PRN as directed 11/11/22 11/11/22 History apixaban 5 mg tablet (Eliquis) 5 mg PO BID 30 days #60 tabs 11/15/22 Rx carvedilol 25 mg tablet 25 mg PO BIDM 30 days #60 tabs 11/15/22 Rx famotidine 20 mg tablet 20 mg PO BID 14 days #28 tabs 11/15/22 Rx lorazepam 0.5 mg tablet 0.5 mg PO TID PRN vertigo #40 tabs 11/15/22 Rx sucralfate 100 mg/mL oral 1 g (10 mL) PO QID 7 days #280 mL 11/15/22 Rx suspension Patient History Medical History Anxiety disorder CAD (coronary artery disease) Mild-moderate non-obstructive CAD per 2017 cardiac cath Cannabinoid hyperemesis syndrome Carotid stenosis < 50% stenosis B/L per US 12/16/18 Cervical disc disorder Full ROM per pt Cyclic vomiting syndrome Cyclic vomiting syndrome no GI pathology on EGD, US, CT of abd/pelvis, celiac testing and GES per 04/2020 GI consult: biliary w/u and upper GI study recommended (upper GI study neg per d/c summary), cannabis cessation, continue Protonix and prn Zofran > currently controlled Depression GERD (gastroesophageal reflux disease) History of COVID-19 03/18/22, pcr [facility] [place], hospitalized day after diagnosis due to vomiting blood, discharged on 03/22/22; fever, vomiting, body chills and aches, diarrhea > resolved currently. 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 Maynard Posterior reversible encephalopathy syndrome (PRES) Postoperative nausea Prediabetes diet controlled PRES (posterior reversible encephalopathy syndrome) has since caused seizures that started in 2019. following with PCP, last seizure per pt 08/2019 per PCP records Proteinuria Pulmonary emphysema well controlled per pt Renal artery stenosis following with Dr Maynard Seizure Seizures 2018 r/t hypertensive emergency > encephalopathy. last seizure 2019 Tachycardia Takotsubo cardiomyopathy 2016. Admitted [facility], full cardiac workup including cath. EF at the time 40%, now subsequent echos. Follows with Dr. Rodriguez Transient cerebrovascular ischemia Per records, pt unaware Upper gastrointestinal bleed 2021, resolved Surgical History H/O cervical spine surgery ACDF C4-7 Dr. [place]: Grade 1 view, Bojorquez#2 and ETT#7.5 atraumatic x 1. No issues per anesthesia postop progress note. ROM WNL History of anesthesia reaction Low O2 sats during colonoscopy 04/2022 at [facility] and post-procedure elevated BP. Per post-op anesthesia progress note, O2 96-100% RA and "Pt has increased BP 2ndary to abdominal pain. Pt also has nausea w/ dry heaves. Pt to have CT scan per Dr Patten." History of cardiac cath 2017 > no stents History of cataract surgery bilat History of esophagogastroduodenoscopy (EGD) History of hernia surgery right inguinal hernia repair History of hysterectomy History of ovarian cystectomy History of tooth extraction S/P aortobifemoral bypass surgery Sep 2021 [facility] Status post surgery RLE thrombectomy Family History Father Family history of stomach cancer Malignant neoplasm of esophagus Stomach cancer Myocardial infarction Stroke Uncle Throat cancer Family history of cancer FAMILY HISTORY OF CANCER - UNCLE - VOCAL CORDS FAMILY HISTORY OF CANCER - AUNT - ? KIND Grandmother (Maternal) Bone cancer Breast cancer Mother No problems noted. Brother Lung cancer Other Family history of diabetes mellitus No family history of adverse response to anesthesia No pertinent family history Denies family history of Colon cancer Ovarian cancer Prostate cancer Crohn's disease IBD (inflammatory bowel disease) Social History Smoking Status: Former smoker packs per day: 2; Second Hand Exposure: No; Hx Alcohol Use: No Hx Substance Use: No Preferred Language: Kiswahili Communication Ability: Unable Visual Impairment: No Limitations Hearing Ability: Normal Billing Department Supervisor Required: No Beliefs That Will Affect Care: None marital status: Current Living Situation: Spouse Current Living Situation Comment: [place] 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 Feels Safe at Home: Yes Childhood Exposure to Second-Hand Smoke: Yes caffeine: Yes (1 cup of coffee) during the past year weight has: other Dental Care, Regularly: No Physical Activity Frequency: Daily Physical Activity Frequency Comment: walking Seatbelt Use: always Sunscreen Use: Yes Assistive Devices: Cane and Walker Results & Data Vital Signs (Past 12 Hours) Vital Signs Temp Pulse Pulse Resp BP BP BP 11/16/22 12:00 84 11 L 11/16/22 12:00 94/61 L 11/16/22 11:30 95 H 24 11/16/22 11:00 92 H 20 11/16/22 11:00 177/143 H 11/16/22 10:30 89 19 11/16/22 10:00 90 26 H 11/16/22 10:00 202/131 H 11/16/22 09:30 93 H 14 11/16/22 09:30 216/152 H 11/16/22 09:44 90 11/16/22 09:00 92 H 22 11/16/22 09:00 221/166 H 11/16/22 08:30 89 15 11/16/22 08:30 205/147 H 11/16/22 08:00 87 21 11/16/22 08:00 170/112 H 11/16/22 07:30 90 17 11/16/22 07:30 199/117 H 11/16/22 07:20 83 18 11/16/22 07:10 91 H 12 11/16/22 06:59 86 17 208/115 H 11/16/22 06:30 90 16 224/157 H 11/16/22 06:28 84 16 11/16/22 05:52 96 H 16 223/142 H 11/16/22 05:39 94 H 11/16/22 05:36 36.8 C 97 H 16 227/140 H Pulse Ox O2 Del Method 11/16/22 12:00 95 Room Air 11/16/22 12:00 11/16/22 11:30 94 Room Air 11/16/22 11:00 96 Room Air 11/16/22 11:00 11/16/22 10:30 95 Room Air 11/16/22 10:00 95 Room Air 11/16/22 10:00 11/16/22 09:30 95 Room Air 11/16/22 09:30 11/16/22 09:44 11/16/22 09:00 96 Room Air 11/16/22 09:00 11/16/22 08:30 98 Room Air 11/16/22 08:30 11/16/22 08:00 98 Room Air 11/16/22 08:00 11/16/22 07:30 97 Room Air 11/16/22 07:30 11/16/22 07:20 96 Room Air 11/16/22 07:10 96 Room Air 11/16/22 06:59 95 Room Air 11/16/22 06:30 96 Room Air 11/16/22 06:28 97 Room Air 11/16/22 05:52 97 Room Air 11/16/22 05:39 11/16/22 05:36 96
[2022-11-16] MEDS: APIXABAN 5 MG TABLET PO SCH ×2 (12:30→20:37)
[2022-11-16] MEDS: cloNIDine HCL 0.1 MG TAB PO SCH ×2 (12:30→20:39)
[2022-11-16] MEDS: FAMOTIDINE 20 MG TAB PO SCH ×2 (12:31→20:37)
[2022-11-16] MEDS: LOSARTAN POTASSIUM 50 MG TAB PO SCH (12:31)
[2022-11-16] MEDS: levETIRAcetam 500 MG TAB PO SCH ×2 (12:31→20:38)
[2022-11-16] MEDS: MULTIVITAMIN TAB PO SCH (12:32)
[2022-11-16] MEDS: VENLAFAXINE HCL XR 150 MG CAPXR PO SCH (12:32)
[2022-11-16] MEDS: PANTOprazole 40 MG TAB PO SCH ×2 (12:32→20:38)
[2022-11-16] MEDS: SUCRALFATE 1 GM/10 ML UDC PO SCH ×3 (12:33→20:39)
[2022-11-16] MEDS ORDERED: Ipratropium HFA Inhaler (Combivent Respimat P&T Subs) INH SCH (15:00)
[2022-11-16] MEDS ORDERED: Albuterol HFA 8 GM Inhaler (Combivent Respimat P&T Subs) INH SCH (15:00)
[2022-11-16] MEDS ORDERED: IPRATROPIUM BROMIDE HFA INHALER INH PRN (16:49)
[2022-11-16] MEDS ORDERED: ALBUTEROL HFA 8 GM INHALER INH PRN (16:49)
[2022-11-16] MEDS: carvediloL 25 MG TAB PO SCH (18:22)
[2022-11-16] MEDS ORDERED: cloNIDine HCL 0.1 MG TAB PO PRN (18:51)
--- NOTE | 2022-11-16 18:52 | History & Physical Report ---
Date of Service November 16, 2022 Assessment & Plan (1) Vertigo: Plan: Seems most consistent with another episode of central vertigo from her stroke, accompanied by nausea and vomiting. She unfortunately has very labile hypertension, and its not uncommon for her to spike whenever she has any kind of distressparticular nausea vomiting/GI distress. Fortunately her work-up is extremely reassuring, and it does not appear anything else is at play. Blood pressure is improved yet again. I asked neurology to see herjust to see if there are any other potential ideas to assist with her central vertigoas expected, but unfortunately, they did not have anything else to offer. Patient is set up for vestibular PT on Friday. She would like to see how she does into tomorrow, but hopefully be on to go back home. As it relates to her chest tightnessgiven that it was right after vomiting, and improved as she was upright and starting to walk to the ambulance, it seems most consistent with esophageal pain. That said, given her hypertension and vascular disease, will check a troponin for completeness, knowing that it probably will not be completely normaland the strain from her hypertension is caused her to bump nominal troponins last admission as well. Admission and Anticipated Discharge Date Admission Date: November 16, 2022 History of Present Illness Chief Complaint: nausea/vomiting Primary Care Provider: Teena Killian, DO Very pleasant 57-year-old female who went home feeling okay. Woke up nauseated and vertiginous vomiting and hypertensive. [place] too terrible, knew she had to come back to the hospital. Called EMS. She had some chest tightness, but this actually got better once she was upright and walking to the ambulance. Feels fine now and ate okay. Allergies Allergy/AdvReac Type Severity Reaction Status Date / Time napoles Allergy Intermediate Hives Verified 09/25/22 07:01 (green/hartman beans) doxycycline Allergy Intermediate Hives, Verified 09/25/22 07:01 vomiting Iodinated Contrast Media Allergy Intermediate Large Verified 09/25/22 07:01 hives, vomiting, "feeling hot" iodine Allergy Intermediate Hives, Verified 09/25/22 07:01 vomiting latex Allergy Intermediate Rash Verified 09/25/22 07:01 loperamide Allergy Intermediate Hives, Verified 09/25/22 07:01 vomiting meperidine Allergy Intermediate Hives, Verified 09/25/22 07:01 vomiting strawberry Allergy Intermediate Hives Verified 09/25/22 07:01 tomato Allergy Intermediate Hives Verified 09/25/22 07:01 prochlorperazine Allergy Mild N/V, Verified 09/25/22 07:01 itchiness Home Medications Medication Instructions Recorded Confirmed Type multivitamin 1 tab PO QAM 12/16/18 11/16/22 History rosuvastatin 40 mg tablet (Crestor) 40 mg PO HS 09/11/21 11/16/22 History ondansetron HCl 4 mg tablet 4 mg PO Q8H PRN nausea and 12/18/21 11/16/22 Rx vomiting #20 tabs pantoprazole 40 mg tablet,delayed 40 mg PO BID #180 tabs 03/27/22 11/16/22 Rx release amitriptyline 25 mg tablet 25 mg PO HS #90 tabs 05/31/22 11/16/22 Rx clopidogrel 75 mg tablet (Plavix) 75 mg PO HS #90 tabs 06/17/22 11/16/22 Rx cholecalciferol (vitamin D3) 50 2,000 unit PO HS #90 tabs 07/03/22 11/16/22 Rx mcg (2,000 unit) tablet venlafaxine 150 mg 150 mg PO QAM #90 caps 07/03/22 11/16/22 Rx capsule,extended release 24 hr Auto Titrating CPAP #1 ea 07/15/22 10/02/22 Rx Medical Marijuana 1 dose PO DIRECTED PRN Pain 09/12/22 11/16/22 History losartan 50 mg tablet 50 mg PO DAILY 09/25/22 11/16/22 History levetiracetam 1,000 mg tablet 1,000 mg PO BID #180 tabs 10/02/22 11/16/22 Rx (Keppra) ipratropium 20 mcg-albuterol 100 1 puff inhalation Q6H #4 grams 10/31/22 11/16/22 Rx mcg/actuation mist for inhalation (Combivent Respimat) clonidine HCl 0.1 mg tablet 0.1 mg PO BID 3 months #180 tabs 11/08/22 11/16/22 Rx meclizine 25 mg tablet 25 mg PO UD PRN as directed 11/11/22 11/16/22 History apixaban 5 mg tablet (Eliquis) 5 mg PO BID 30 days #60 tabs 11/15/22 11/16/22 Rx carvedilol 25 mg tablet 25 mg PO BIDM 30 days #60 tabs 11/15/22 11/16/22 Rx famotidine 20 mg tablet 20 mg PO BID 14 days #28 tabs 11/15/22 11/16/22 Rx lorazepam 0.5 mg tablet 0.5 mg PO TID PRN vertigo #40 tabs 11/15/22 11/16/22 Rx sucralfate 100 mg/mL oral 1 g (10 mL) PO QID 7 days #280 mL 11/15/22 11/16/22 Rx suspension Past Med/Surg History Medical History Anxiety disorder CAD (coronary artery disease) Mild-moderate non-obstructive CAD per 2017 cardiac cath Cannabinoid hyperemesis syndrome Carotid stenosis < 50% stenosis B/L per US 12/16/18 Cervical disc disorder Full ROM per pt Cyclic vomiting syndrome Cyclic vomiting syndrome no GI pathology on EGD, US, CT of abd/pelvis, celiac testing and GES per 04/2020 GI consult: biliary w/u and upper GI study recommended (upper GI study neg per d/c summary), cannabis cessation, continue Protonix and prn Zofran > currently controlled Depression GERD (gastroesophageal reflux disease) History of COVID-19 03/18/22, pcr [facility] [place], hospitalized day after diagnosis due to vomiting blood, discharged on 03/22/22; fever, vomiting, body chills and aches, diarrhea > resolved currently. 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 Maynard Posterior reversible encephalopathy syndrome (PRES) Postoperative nausea Prediabetes diet controlled PRES (posterior reversible encephalopathy syndrome) has since caused seizures that started in 2019. following with PCP, last seizure per pt 08/2019 per PCP records Proteinuria Pulmonary emphysema well controlled per pt Renal artery stenosis following with Dr Maynard Seizure Seizures 2019 r/t hypertensive emergency > encephalopathy. last seizure 2019 Tachycardia Takotsubo cardiomyopathy 2016. Admitted [facility], full cardiac workup including cath. EF at the time 40%, now subsequent echos. Follows with Dr. Rodriguez Transient cerebrovascular ischemia Per records, pt unaware Upper gastrointestinal bleed 2021, resolved Surgical History H/O cervical spine surgery ACDF C4-7 Dr. [place]: Grade 1 view, Bojorquez#2 and ETT#7.5 atraumatic x 1. No issues per anesthesia postop progress note. ROM WNL History of anesthesia reaction Low O2 sats during colonoscopy 04/2022 at [facility] and post-procedure elevated BP. Per post-op anesthesia progress note, O2 96-100% RA and "Pt has increased BP 2ndary to abdominal pain. Pt also has nausea w/ dry heaves. Pt to have CT scan per Dr Patten." History of cardiac cath 2017 > no stents History of cataract surgery bilat History of esophagogastroduodenoscopy (EGD) History of hernia surgery right inguinal hernia repair History of hysterectomy History of ovarian cystectomy History of tooth extraction S/P aortobifemoral bypass surgery Sep 2021 [facility] Status post surgery RLE thrombectomy Family History Father Family history of stomach cancer Malignant neoplasm of esophagus Stomach cancer Myocardial infarction Stroke Uncle Throat cancer Family history of cancer FAMILY HISTORY OF CANCER - UNCLE - VOCAL CORDS FAMILY HISTORY OF CANCER - AUNT - ? KIND Grandmother (Maternal) Bone cancer Breast cancer Mother No problems noted. Brother Lung cancer Other Family history of diabetes mellitus No family history of adverse response to anesthesia No pertinent family history Denies family history of Colon cancer Ovarian cancer Prostate cancer Crohn's disease IBD (inflammatory bowel disease) Social History Smoking Status: Former smoker packs per day: 2; Second Hand Exposure: No; Hx Alcohol Use: No Hx Substance Use: No Preferred Language: Uruguayan Communication Ability: Effective Visual Impairment: No Limitations Hearing Ability: Normal Local Delivery Driver Required: No Beliefs That Will Affect Care: None marital status: Current Living Situation: Significant Other Current Living Situation Comment: [place] 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 HEENT normocephalic atraumatic mucous membranes moist. Edentulous. Cardio is regular without rubs murmurs or gallops. Lungs clear to auscultation bilaterally no rales rhonchi or wheeze with good effort. Abdomen is soft nondistended nontender no masses organomegaly. Extremities without cyanosis or clubbing. Skin shows no rashes pallor or icterus. CBC, complete metabolic panel, head CT noted Results & Data Results & Data Vital Signs (Past 12 Hours) Vital Signs Temp Pulse Pulse Resp BP BP Pulse Ox 11/16/22 15:30 93 H 11/16/22 15:58 70 18 99 11/16/22 15:00 98.1 F 87 20 116/78 94 11/16/22 14:43 90 16 96 11/16/22 14:43 106/71 11/16/22 14:30 85 20 95 11/16/22 14:00 85 19 95 11/16/22 14:00 116/85 11/16/22 13:30 85 18 94 11/16/22 13:00 83 15 93 11/16/22 13:00 110/62 11/16/22 12:30 94 H 15 96 11/16/22 12:28 94/72 L 11/16/22 12:28 90 21 97 11/16/22 12:28 90 22 94/72 L 97 11/16/22 12:00 84 11 L 95 11/16/22 12:00 94/61 L 11/16/22 11:30 95 H 24 94 11/16/22 11:00 92 H 20 96 11/16/22 11:00 177/143 H 11/16/22 10:30 89 19 95 11/16/22 10:00 90 26 H 95 11/16/22 10:00 202/131 H 11/16/22 09:30 93 H 14 95 11/16/22 09:30 216/152 H 11/16/22 09:44 90 11/16/22 09:00 92 H 22 96 11/16/22 09:00 221/166 H 11/16/22 08:30 89 15 98 11/16/22 08:30 205/147 H 11/16/22 08:00 87 21 98 11/16/22 08:00 170/112 H 11/16/22 07:30 90 17 97 11/16/22 07:30 199/117 H 11/16/22 07:20 83 18 96 11/16/22 07:10 91 H 12 96 11/16/22 06:59 86 17 208/115 H 95 O2 Del Method 11/16/22 15:30 11/16/22 15:58 Room Air 11/16/22 15:00 Room Air 11/16/22 14:43 Room Air 11/16/22 14:43 11/16/22 14:30 Room Air 11/16/22 14:00 Room Air 11/16/22 14:00 11/16/22 13:30 Room Air 11/16/22 13:00 Room Air 11/16/22 13:00 11/16/22 12:30 Room Air 11/16/22 12:28 11/16/22 12:28 11/16/22 12:28 Room Air 11/16/22 12:00 Room Air 11/16/22 12:00 11/16/22 11:30 Room Air 11/16/22 11:00 Room Air 11/16/22 11:00 11/16/22 10:30 Room Air 11/16/22 10:00 Room Air 11/16/22 10:00 11/16/22 09:30 Room Air 11/16/22 09:30 11/16/22 09:44 11/16/22 09:00 Room Air 11/16/22 09:00 11/16/22 08:30 Room Air 11/16/22 08:30 11/16/22 08:00 Room Air 11/16/22 08:00 11/16/22 07:30 Room Air 11/16/22 07:30 11/16/22 07:20 Room Air 11/16/22 07:10 Room Air 11/16/22 06:59 Room Air Code Status & VTE Plan VTE Prophylaxis Plan VTE Prophylaxis will be ordered: Yes PG Care Time/CCT Total # of Minutes Spent Total Time Spent with Patient: Total time spent is greater than 50% in coordination of care (as documented) at patient's floor/unit and/or counseling patient: Coding Level of Care Code 00904 INT INP/OBS CARE 2/55MIN Diagnoses Vertigo R42
[2022-11-16] MEDS ORDERED: CHOLECALCIFEROL 1,000 UNITS 25 MCG TAB PO SCH (21:00)
[2022-11-16] MEDS ORDERED: AMITRIPTYLINE HCL 25 MG TAB PO SCH (21:00)
[2022-11-16] MEDS ORDERED: ROSUVASTATIN CALCIUM 20 MG TAB PO SCH (21:00)
[2022-11-16] MEDS ORDERED: CLOPIDOGREL BISULFATE 75 MG TAB PO SCH (21:00)
[2022-11-17 06:45] LABS: Basophils # (auto) 0.14 K/uL (0-0.2); Basophils % (auto) 1.9 %; Eosinophils # (auto) 0.23 K/uL (0-0.50); Eosinophils % (auto) 3.1 %; Hematocrit (blood only) 31.4 % (37.0-47.0); Hemoglobin 10.4 g/dl (12.0-16.0); Immature Granulocytes # (auto) 0.02 K/uL (0.01-0.20); Immature Granulocytes % (auto) 0.3 %; Lymphocytes # (auto) 3.58 K/uL (1.2-3.4); Lymphocytes % (auto) 47.7 %; Mean Corpuscular Hemoglobin 27.3 pg (25.0-34.0); Mean Corpuscular Hgb Conc 33.1 g/dL (32.0-36.0); Mean Corpuscular Volume 82.4 fL (80.0-100.0); Mean Platelet Volume 9.9 fL (9.4-12.4); Monocytes # (auto) 0.71 K/uL (0.11-0.59); Monocytes % (auto) 9.5 %; Neutrophils # (auto) 2.83 K/uL (1.40-6.50); Neutrophils % (auto) 37.5 %; Platelet Count 357 K/uL (130-400); RDW Coefficient of Variation 15.5 % (11.5-14.5); Red Blood Count 3.81 M/uL (4.20-5.40); White Blood Count 7.51 K/ul (4.8-10.8)
[2022-11-17 07:11] LABS: BUN Creatinine Ratio 17.1 (10-20); Calcium 9.5 mg/dl (8.6-10.3); Creatinine Clr Calc Pharmacy 84.1 ml/min; Est GFR (African American) 92.7 ml/min; Potassium 2.9 mmol/L (3.5-5.1)
[2022-11-17 07:17] LABS: Troponin I High Sensitivity 18.8 pg/ml (0-14)
[2022-11-17] MEDS ORDERED: POTASSIUM CHLORIDE CRTAB 20 MEQ TABCR PO STA (07:50)
[2022-11-17] MEDS: carvediloL 25 MG TAB PO SCH (08:09)
[2022-11-17] MEDS: levETIRAcetam 500 MG TAB PO SCH (08:09)
[2022-11-17] MEDS: APIXABAN 5 MG TABLET PO SCH (08:09)
[2022-11-17] MEDS: LOSARTAN POTASSIUM 50 MG TAB PO SCH (08:09)
[2022-11-17] MEDS: MULTIVITAMIN TAB PO SCH (08:10)
[2022-11-17] MEDS: FAMOTIDINE 20 MG TAB PO SCH (08:10)
[2022-11-17] MEDS: cloNIDine HCL 0.1 MG TAB PO SCH (08:10)
[2022-11-17] MEDS: PANTOprazole 40 MG TAB PO SCH (08:10)
[2022-11-17] MEDS: SUCRALFATE 1 GM/10 ML UDC PO SCH ×2 (08:10→12:17)
[2022-11-17] MEDS: VENLAFAXINE HCL XR 150 MG CAPXR PO SCH (08:11)
[2022-11-17 08:24] VITALS: O2SAT 95
--- NOTE | 2022-11-17 10:04 | Discharge Summary ---
Date of Service November 17, 2022 Admission HPI Per Admitting Provider Very pleasant 57-year-old female who went home feeling okay. Woke up nauseated and vertiginous vomiting and hypertensive. [place] too terrible, knew she had to come back to the hospital. Called EMS. She had some chest tightness, but this actually got better once she was upright and walking to the ambulance. Feels fine now and ate okay. Admission Exam Per Admitting Provider In general she is awake and alert oriented x3 pleasant no distress. HEENT normocephalic atraumatic mucous membranes moist. Edentulous. Cardio is regular without rubs murmurs or gallops. Lungs clear to auscultation bilaterally no rales rhonchi or wheeze with good effort. Abdomen is soft nondistended nontender no masses organomegaly. Extremities without cyanosis or clubbing. Skin shows no rashes pallor or icterus. CBC, complete metabolic panel, head CT noted Principal Diagnosis vertigo Discharge Exam GENERAL: No acute distress. Well developed and well nourished. Vital signs reviewed as above. EYES: EOMI. Anicteric sclerae. HENT: Moist mucous membranes. Edentuolous. RESPIRATORY: No respiratory distress. Normal respiratory effort. EXTREMITIES: No gross deformities. SKIN: Warm, dry. NEUROLOGIC: A/O x3. Normal speech. PSYCHIATRIC: Cooperative. Appropriate mood and affect. Discharge Data Allergies Allergy/AdvReac Type Severity Reaction Status Date / Time napoles Allergy Intermediate Hives Verified 09/25/22 07:01 (green/hartman beans) doxycycline Allergy Intermediate Hives, Verified 09/25/22 07:01 vomiting Iodinated Contrast Media Allergy Intermediate Large Verified 09/25/22 07:01 hives, vomiting, "feeling hot" iodine Allergy Intermediate Hives, Verified 09/25/22 07:01 vomiting latex Allergy Intermediate Rash Verified 09/25/22 07:01 loperamide Allergy Intermediate Hives, Verified 09/25/22 07:01 vomiting meperidine Allergy Intermediate Hives, Verified 09/25/22 07:01 vomiting strawberry Allergy Intermediate Hives Verified 09/25/22 07:01 tomato Allergy Intermediate Hives Verified 09/25/22 07:01 prochlorperazine Allergy Mild N/V, Verified 09/25/22 07:01 itchiness Consultations 11/16/22 07:30 ED Decision to Admit Stat 11/16/22 11:28 Consult Neurology Routine Ordered Studies [place], [place] [phone] CT Scan Report Patient:ONEL MONTOYA Admit Date:11/16/22 MR#:[id number] Address1:[address] [place] [address] Acct ID:[id number] Address2: Date:1965 [facility] Zip:[place] [address] Age:57 Location:ED Sex:F Room/Bed: Att Phy: Diagnosis:WEAKNESS/NAUSEA/VOMITING Risa Phy:Teena Killian DO Service Date:11/16/22 Fam Phy: Interpreting Phy:Armin Sylvester MDAdmit Phy: Ordering Phy:Estephania Medina M.D. cc: ~ CT SCAN OF THE BRAIN WITHOUT IV CONTRAST CLINICAL HISTORY: Vertigo. Reported history of recent stroke. COMPARISON STUDY: CT of the brain dated 11/11/2022. MRI of the brain dated 12/12/2020. TECHNIQUE: Unenhanced axial CT scan of the brain is performed from the vertex to the skull base. A dose lowering technique was utilized adhering to the principle s of ALARA. CT DOSE: 614.27 mGy.cm FINDINGS: Brain parenchyma: There is age-related involutional change noting moderate age- advanced subcortical and periventricular microangiopathic disease. There is no hemorrhage, mass effect, or evidence of acute territorial ischemia by CT criteria. Chance-white matter differentiation is preserved. No extra-axial fluid collection is seen. Ventricles, sulci, cisterns: Prominent secondary to involutional change. Intracranial vasculature: There is atherosclerotic calcification of the cavernous carotid arteries. Calvarium: Unremarkable. Sinuses and mastoids: The visualized paranasal sinuses are clear. The mastoid air cells are well pneumatized. Orbits: The bony orbits are grossly intact. There are bilateral ocular lens implants. IMPRESSION: There is no hemorrhage, mass effect, or evidence of acute territorial ischemia by CT criteria. ACT 112: Negative or not required by law. Electronically signed by: Armin Sylvester M.D. 11/16/2022 6:43 AM Dictated:11/16/22 0640 Transcribed: 11/16/22 0640 Labs 11/16/22 11/16/22 11/16/22 05:41 05:41 05:42 WBC 11.16 H RBC 4.27 Hgb 11.9 L Hct 35.6 L MCV 83.4 MCH 27.9 MCHC 33.4 RDW Std Deviation 45.8 RDW Coeff of Jose Luis 15.2 H Plt Count 462 H MPV 10.2 Immature Gran % (Auto) 0.4 Neut % (Auto) 63.7 Lymph % (Auto) 22.5 [place] % (Auto) 9.1 Eos % (Auto) 3.0 Baso % (Auto) 1.3 Neut # (Auto) 7.11 H Lymph # (Auto) 2.51 [place] # (Auto) 1.01 H Eos # (Auto) 0.33 Baso # (Auto) 0.15 Immature Gran # (Auto) 0.05 Sodium 134 L Potassium 3.5 Chloride 100 Carbon Dioxide 24 Anion Gap 10 BUN 19 Creatinine 0.95 Est Cr Clr Drug Dosing 72.6 Est GFR ( Amer) 77.6 Est GFR (Non-Af Amer) 67.0 BUN/Creatinine Ratio 20.0 Glucose 159 H Calcium 9.5 Total Bilirubin 0.3 AST 35 ALT 31 Alkaline Phosphatase 71 Troponin I High Sens Total Protein 7.3 Albumin 4.5 Globulin 2.8 Albumin/Globulin Ratio 1.6 Lipase 34 Urine Color Urine Appearance Urine pH Ur Specific [place] Urine Protein Urine Glucose (UA) Urine Ketones Urine Blood Urine Nitrite Urine Bilirubin Urine Urobilinogen Ur Leukocyte Esterase Urine WBC (Auto) Urine RBC (Auto) U Hyaline Cast (Auto) U Epithel Cells (Auto) Urine Bacteria (Auto) SARS-CoV-2, RNA, NAAT NEGATIVE 11/16/22 11/17/22 11/17/22 08:25 06:13 06:13 WBC 7.51 RBC 3.81 L Hgb 10.4 L Hct 31.4 L MCV 82.4 MCH 27.3 MCHC 33.1 RDW Std Deviation 46.0 RDW Coeff of Jose Luis 15.5 H Plt Count 357 MPV 9.9 Immature Gran % (Auto) 0.3 Neut % (Auto) 37.5 Lymph % (Auto) 47.7 [place] % (Auto) 9.5 Eos % (Auto) 3.1 Baso % (Auto) 1.9 Neut # (Auto) 2.83 Lymph # (Auto) 3.58 H [place] # (Auto) 0.71 H Eos # (Auto) 0.23 Baso # (Auto) 0.14 Immature Gran # (Auto) 0.02 Sodium 139 Potassium 2.9 L Chloride 103 Carbon Dioxide 26 Anion Gap 10 BUN 14 Creatinine 0.82 Est Cr Clr Drug Dosing 84.1 Est GFR ( Amer) 92.7 Est GFR (Non-Af Amer) 80.0 BUN/Creatinine Ratio 17.1 Glucose 114 H Calcium 9.5 Total Bilirubin AST ALT Alkaline Phosphatase Troponin I High Sens 18.8 H Total Protein Albumin Globulin Albumin/Globulin Ratio Lipase Urine Color Yellow Urine Appearance Clear Urine pH 6.0 Ur Specific [place] 1.012 Urine Protein Negative Urine Glucose (UA) Negative Urine Ketones Negative Urine Blood 2+ H Urine Nitrite Negative Urine Bilirubin Negative Urine Urobilinogen Negative Ur Leukocyte Esterase Negative Urine WBC (Auto) 1-5 Urine RBC (Auto) 0-4 U Hyaline Cast (Auto) 0 U Epithel Cells (Auto) >30 H Urine Bacteria (Auto) Negative SARS-CoV-2, RNA, NAAT Hospital Course (1) Vertigo: Patient was discharged on 11/15/22 after admission for vertigo secondary to recent cerebellar stroke as well as hypertensive urgency. She was discharged fritz e but returned to the ER on 11/16 secondary to recurrent vertigo, nausea, and vomiting. 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 Per admission documentation: She unfortunately has very labile hypertension, and its not uncommon for her to spike whenever she has any kind of distresspar ticular nausea vomiting/GI distress. Fortunately her work-up is extremely reassuring, and it does not appear anything else is at play. Blood pressure is improved yet again. I asked neurology to see herjust to see if there are any other potential ideas to assist with her central vertigoas expected, but unfortunately, they did not have anything else to offer. Patient is set up for vestibular PT on Friday. She would like to see how she does into tomorrow, but hopefully be on to go back home. As it relates to her chest tightnessgiven that it was right after vomiting, and improved as she was upright and starting to walk to the ambulance, it seems most consistent with esophageal pain. That said, given her hypertension and vascular disease, will check a troponin for completeness, knowing that it probably will not be completely normaland the strain from her hypertension is caused her to bump nominal troponins last admission as well. Today, patient states that her symptoms have resolved. She has had no recurrent vertigo, nausea, or vomiting. Has tolerated po intake well without difficulty. Patient feels ready for discharge home with plan for PT and home nursing evalua tion tomorrow as was previously scheduled. (2) Hypertensive urgency: (3) Vomiting: (4) Nausea & vomiting: Total Time Total Time Spent Total Time Spent (In Minutes): < 30 min Discharge Plan Discharge Items Patient Disposition: Home - Self-Care Reason For Visit: RECURRENT/REFRACTORY VERTIGO POSTCEREBELLAR STROKE Discharge Diagnosis: vertigo Activity: Resume your previous activity Non-emergency contact: Primary Care Provider Call non-emergency contact if: you have any medication questions Follow-up/Referrals: Teena Killian DO [Primary Care Provider] - Diet: Heart Healthy Addtl Attending Provider Instructions: It was our pleasure to care for you at [facility] from 11/16 to 11/17. You initially presented to the emergency room with concern for recurrent vertigo, nausea, and vomiting. This seems most consistent with another episode of central vertigo associated with your recent stroke. Unfortuantely, your blood pressure tends to flucuate a lot and it is not uncommon for your blood pressure to become quite elevated when your body is in any kind of distress, such as your recent nausea and vomiting. During your admission, your blood pressure was better controlled. You were also evaluated by neurology during this admission, and they agree that your current symptoms are likely related to your recent stroke and it is expected for these symptoms to take several weeks to improve as you undergo therapy/rehab for the stroke. At time of discharge today, your symptoms have completely gone away and we feel that it is safe for you to be discharged home. A discharge summary will be sent to your primary care physician to ensure continuity of care. Please bring this discharge summary with you to your next office appointment so that your provider can review it at that time. Follow-up appointments: Make a follow-up appointment with your PCP within the next week. It is very important that you follow up with them shortly after discharge from the hospital. Follow up with home nursing and physical therapy tomorrow as previously scheduled. Keep all your follow-up appointments as already scheduled. If you cannot make an appointment, notify your provider. Medications: Your medication list has been reviewed and reconciled upon discharge to ensure accuracy and continuity of care. An updated list of all your medications is included with your hospital discharge paperwork. Please review this list closely, and make note of any changes. You should continue to take the medications as prescribed on your last discharge -- these include Ativan, famotidine, sucralfate, carvedilol, and Eliquis. Take your medications as instructed; do not skip a dose of your medicines. Make sure all of your doctors know every medicine you are taking (including [id number] medicines, vitamins, and supplements). Call your primary care provider before taking any new medicines (including over- the- counter medicines, vitamins, and supplements), because some of these may interact with your current medications, or may make your symptoms worse. Tell your primary care provider if you cannot afford your medications. CONTACT YOUR PRIMARY CARE PROVIDER if you experience any of the following: Worsening of symptoms Fever, chills, or fatigue Difficulty following your treatment plan, or difficulty taking medications CALL 911 OR GO TO THE EMERGENCY DEPARTMENT if you experience any of the following: Sudden, severe abdominal pain or nausea/vomiting Severe chest pain, or chest pain that radiates (moves) to your jaw or arm Sudden, severe shortness of breath or difficulty breathing Thank you for allowing us to participate in your care. Pending Studies at Discharge: No Stand-Alone Forms: My [facility], Smoking Cessation Medications and DC Order Prescriptions: Continued ondansetron HCl 4 mg tablet 4 mg PO Q8H PRN (Reason: nausea and vomiting) Qty: 20 0RF amitriptyline 25 mg tablet 25 mg PO HS Qty: 90 1RF clopidogrel [Plavix] 75 mg tablet 75 mg PO HS Qty: 90 1RF Patient Comments: PER DR PERSON OFFICE, TOLD TO STOP 7 DAYS BEFORE PROCEDURE Combivent Respimat 20-100 mcg/actuation mist 1 puff inhalation Q6H Qty: 4 3RF clonidine HCl 0.1 mg tablet 0.1 mg PO BID 90 Days Qty: 180 1RF Rx Instructions: Take if systolic BP is >160, diastolic BP >100- TAKE UP TO FOUR TIMES DAILY IF NEEDED PER PT venlafaxine 150 mg capsule,extended release 24hr 150 mg PO QAM Qty: 90 1RF cholecalciferol (vitamin D3) 50 mcg (2,000 unit) tablet 2,000 unit PO HS Qty: 90 1RF levetiracetam [Keppra] 1,000 mg tablet 1,000 mg PO BID Qty: 180 1RF pantoprazole 40 mg tablet,delayed release (DR/EC) 40 mg PO BID Qty: 180 2RF multivitamin Tablet 1 tab PO QAM Medical Marijuana 1 dose PO DIRECTED PRN (Reason: Pain) losartan 50 mg Tablet 50 mg PO DAILY carvedilol 25 mg Tablet 25 mg PO BIDM 30 Days Qty: 60 0RF sucralfate 100 mg/mL Suspension 1 g PO QID 7 Days Qty: 280 0RF famotidine 20 mg Tablet 20 mg PO BID 14 Days Qty: 28 0RF Eliquis 5 mg Tablet 5 mg PO BID 30 Days Qty: 60 0RF lorazepam 0.5 mg tablet 0.5 mg PO TID PRN (Reason: vertigo) Qty: 40 0RF Rx Instructions: central vertigo rosuvastatin [Crestor] 40 mg Tablet 40 mg PO HS Discontinued meclizine 25 mg tablet 25 mg PO UD PRN (Reason: as directed) No Action (DME) Auto Titrating CPAP Misc See Rx Instructions .ROUTE .MEDSUPPLY Qty: 1 0RF Rx Instructions: As directed Nightly Discharge Orders: Discharge Order (Routine); Ordered 11/17/22 Ordered By: Mami Awan Admission Data Admit Date/Time: 11/16/22 08:45 Attending Provider: Souleymane Lobato Admit Provider: Souleymane Lobato Primary Care Provider: Teena Killian Other Providers: Armando Cedeno ; Prabhu Manriquez Other Interventions: Discharge Summary Assessment (RN) Last Done: 11/17/22 13:30 Supervising Physician Co-Signing Physician Notes I personally examined the patient and verified all real points of history and exam, discussed case, and agree with decision making with Dr Awan Feels good. Feels up to going home. Eating okay. Knows this will be a long road towards recovery. Vitals noted, in general she is awake and alert pleasant no distress. HEENT normocephalic atraumatic mucous membranes moist. Breathing unlabored no accessory muscle use good effort. Skin shows no rashes no pallor or icterus. Recent cerebellar stroke, central vertigo, episodes of nausea and vomiting and labile hypertensionfortunately more stable/stable for home. Med management, vestibular PT, time. Fortunately essentially management unchanged from previous discharge. Resident Activity Tracking Resident Involvement: Resident Care Provided Care Provided: Adult Hospital Medicine
[2022-11-17 11:47] VITALS: TEMP 98.1
[2022-11-17 14:38] VITALS: BP 106/72; PULSE 84
--- NOTE | 2022-11-17 17:37 | Billing Data ---
Date of Service November 17, 2022 Coding Level of Care Code 40517 IN/OBS DISCH 30 MIN/LESS
== END 2022-11-17 13:30 | disposition home or self-care (01) | DRG 149 ==
LOC: ED 05:36 → EDINP 08:45 → 2N 14:15

== ENCOUNTER 2023-09-27 05:56 | Observation (INO) ==
--- NOTE | 2023-09-27 06:39 | Emergency Department Note ---
Impression & Plan Hypertensive urgency, malignant Admission ED Provider Note HPI: History obtained from patient. The patient is a 58-year-old female with history of femorofemoral bypass in September [address] Person, presents to the emergency department today with acute onset chest pain and abdominal pain that woke her from sleep at about 2 AM. Patient states she began to have episodes of vomiting around this time as well. Patient states her pain and vomiting persisted throughout the night and therefore she came to the ED this morning to be assessed. On arrival here to the ED the patient is hypertensive at 208/125, she is otherwise hemodynamically stable, she is saturating well on room air. Patient states that her chest pain has resolved but she continues to have some mid abdominal pain by the time I am assessing her here in the ED. ROS: - Per HPI Differential Diagnosis: Abdominal aortic aneurysm/aortic dissection, acute coronary syndrome, pulmonary embolism, small bowel obstruction, viral gastroenteritis, acute cholecystitis, intracranial hemorrhage to include subarachnoid hemorrhage, hypertensive urgency, hypertensive emergency, acute renal failure, amongst other potential pathologies. *Outpatient medications and allergy history reviewed. PE: General: Alert, diaphoretic, obese HEENT: Normocephalic, trachea midline Eyes: Extraocular eye movement is intact, no scleral erythema Pulmonary: Clear to auscultation bilaterally, no wheezing Cardio: Regular rate and rhythm GI: Abdomen is soft to palpation, there is moderate tenderness over the mid abdomen to palpation without any guarding or rigidity : No suprapubic tenderness MSK: No evidence of trauma or malformation of the extremities, no edema Skin: No evidence of rash Neuro: Alert, no focal deficits Psychiatric: Cooperative INDEPENDENT INTERPRETATIONS: cardiac monitor: (As interpreted by myself): - An order was placed for continuous cardiac monitoring - Patient was noted to be in sinus rhythm with a rate of 95 EKG: (As interpreted by myself): Rate: 85 Rhythm: Sinus rhythm Intervals: NM interval prolonged at 222 ms, otherwise within normal limits ST changes: No ST elevation Time: 0601 Chest x-ray: (As interpreted by myself): - No focal infiltrate Interventions provided in ED: -IV labetalol, IV hydralazine, IV morphine, IV Zofran, Benadryl, methylprednisolone Medical Decision Making: IV was established and lab work obtained, patient was placed on inspector eyeglass frames. Patient was given a dose of labetalol for presenting hypertension 208/125, lab work shows no leukocytosis, hemoglobin is normal, platelet count is normal, CMP does not show any critical findings, troponin is initially negative, blood glucose is elevated at 212 however serum bicarbonate level is 24, low suspicion for DKA. Chest x-ray does not show any evidence of acute disease per my interpretation. Given the patient's presenting abdominal pain with recent history of chest pain, CT angiography of the chest as well as the abdomen and pelvis were performed. This does not show any evidence of aortic dissection or acute surgical pathology. There is mention by the interpreting radiologist of nonspecific fluid collection surrounding the femorofemoral bypass site that appears without significant change in comparison from imaging in June 2023. Patient was additionally given another dose of labetalol in addition to morphine and Zofran for pain and vomiting. Blood pressure did transiently improve however again increased on my reassessment prior to admission to 190/126. Patient did complain of headache and therefore CT imaging of the head was obtained that does not show any evidence of any acute intracranial hemorrhage. Patient was added a dose of IV hydralazine, repeat troponin was obtained and has up trended from 10.3-21.6. Given the patient's refractory hypertension, mildly elevated troponin, and continued symptoms of nausea, I do feel she will require admission for further management of hypertensive emergency. Case was discussed with the on-call hospitalist, Dr. Pereira, the patient was placed for admission in stable condition. Consultants/Discussions held with other healthcare providers: -Hospitalist, Dr. Pereira Disposition discussion held by myself with: -Patient * CRITICAL CARE TIME: ( 45 ) minutes - Management for hypertensive emergency with elevated troponin with receiving IV labetalol as well as IV hydralazine for improvement in presenting hypertension, time spent at the bedside, interpretation of diagnostic studies, discussion with other healthcare providers and arrangement of admission. Diagnosis: 1. Hypertensive emergency, acute 2. Elevated troponin 3. Nausea and vomiting, acute 4. Chest pain, acute, nonspecific 5. Abdominal pain, acute 6. Headache, acute 7. Hyperglycemia Disposition: Admission Walt Gottlieb DO Emergency Medicine Past Med/Surg History Medical History Hypertensive urgency Elevated troponin Hypertensive emergency Hypokalemia Hypophosphatemia Tachycardia Postoperative nausea Seizures Hematemesis History of COVID-19 Upper gastrointestinal bleed Ischemia of right lower extremity Prediabetes Depression Peripheral arterial disease Cyclic vomiting syndrome Obstructive sleep apnea GERD (gastroesophageal reflux disease) Renal artery stenosis Posterior reversible encephalopathy syndrome (PRES) Seizure Proteinuria Cyclic vomiting syndrome Hypercalcemia HTN (hypertension) PRES (posterior reversible encephalopathy syndrome) Cannabinoid hyperemesis syndrome History of diverticulitis of colon Transient cerebrovascular ischemia Anxiety disorder Cervical disc disorder Hyperlipidemia Multiple thyroid nodules Pulmonary emphysema CAD (coronary artery disease) Carotid stenosis Takotsubo cardiomyopathy NSTEMI (non-ST elevated myocardial infarction) Surgical History History of anesthesia reaction History of tooth extraction History of cataract surgery Status post surgery S/P aortobifemoral bypass surgery History of esophagogastroduodenoscopy (EGD) H/O cervical spine surgery History of cardiac cath History of ovarian cystectomy History of hernia surgery History of hysterectomy Family History Father Family history of stomach cancer Malignant neoplasm of esophagus Stomach cancer Myocardial infarction Stroke Uncle Throat cancer Family history of cancer Grandmother (Maternal) Bone cancer Breast cancer Mother No problems noted. Brother Lung cancer Other Family history of diabetes mellitus No family history of adverse response to anesthesia No pertinent family history Denies family history of Colon cancer Ovarian cancer Prostate cancer Crohn's disease IBD (inflammatory bowel disease) Social History Smoking Status: Former smoker packs per day: 2; Second Hand Exposure: No; Do You Dip or Chew Tobacco: No; Hx Alcohol Use: No Hx Substance Use: No Preferred Language: Marshallese Communication Ability: Effective Visual Impairment: No Limitations Hearing Ability: Normal Machine Ii Coremaker Required: No Beliefs That Will Affect Care: None marital status: Current Living Situation: Significant Other Current Living Situation Comment: [place] current occupational status: employed 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 Feels Safe at Home: Yes Childhood Exposure to Second-Hand Smoke: Yes Diet: regular Diet Comment: Regular caffeine: Yes (1 cup of coffee) during the past year weight has: other Dental Care, Regularly: No Physical Activity Frequency: Daily Physical Activity Frequency Comment: walking Seatbelt Use: always Sunscreen Use: Yes Assistive Devices: Cane and Walker Allergies Allergies Allergy/AdvReac Type Severity Reaction Status Date / Time napoles Allergy Intermediate Hives Verified 09/27/23 09:36 (green/hartman beans) doxycycline Allergy Intermediate Hives, Verified 09/27/23 09:36 vomiting Iodinated Contrast Media Allergy Intermediate Large Verified 09/27/23 09:36 hives, vomiting, "feeling hot" iodine Allergy Intermediate Hives, Verified 09/27/23 09:36 vomiting latex Allergy Intermediate Rash Verified 09/27/23 09:36 loperamide Allergy Intermediate Hives, Verified 09/27/23 09:36 vomiting meperidine Allergy Intermediate Hives, Verified 09/27/23 09:36 vomiting strawberry Allergy Intermediate Hives Verified 09/27/23 09:36 tomato Allergy Intermediate Hives Verified 09/27/23 09:36 prochlorperazine Allergy Mild N/V, Verified 09/27/23 09:36 itchiness Home Meds Home Medications Medication Instructions Recorded Confirmed multivitamin 0 tab PO QAM 12/16/18 09/27/23 rosuvastatin 40 mg tablet (Crestor) 40 mg PO HS 09/11/21 09/27/23 Medical Marijuana 0 dose PO DIRECTED PRN Pain 09/12/22 09/27/23 ipratropium 20 mcg-albuterol 100 1 puff inhalation Q6H PRN SOB 01/01/23 09/27/23 mcg/actuation mist for inhalation (Combivent Respimat) cholecalciferol (vitamin D3) 50 0 unit PO HS 09/27/23 09/27/23 mcg (2,000 unit) tablet clonidine HCl 0.1 mg tablet 0 mg PO BID 09/27/23 09/27/23 ferrous sulfate 325 mg (65 mg 0 mg PO BID 09/27/23 09/27/23 iron) tablet folic acid 1 mg tablet 0 mg PO DAILY 09/27/23 09/27/23 mecobalamin (vitamin B12) 1,000 0 mcg PO DAILY 09/27/23 09/27/23 mcg chewable tablet sulfamethoxazole 800 1 tab PO DAILY 09/27/23 09/27/23 mg-trimethoprim 160 mg tablet Previous Rx's Medication Instructions Recorded Auto Titrating CPAP #1 ea 07/15/22 pantoprazole 40 mg tablet,delayed 40 mg PO BID #180 tabs 12/06/22 release carvedilol 25 mg tablet 25 mg PO BID #60 tabs 01/01/23 lorazepam 0.5 mg tablet 0.5 mg PO TID PRN vertigo #30 tabs 01/01/23 losartan 50 mg tablet 50 mg PO DAILY #90 tabs 03/05/23 levetiracetam 1,000 mg tablet 1,000 mg PO BID #180 tabs 04/08/23 (Keppra) clopidogrel 75 mg tablet (Plavix) 75 mg PO HS #90 tabs 06/02/23 ondansetron HCl 4 mg tablet 4 mg PO Q8H PRN nausea and 06/02/23 vomiting #30 tabs amitriptyline 25 mg tablet 25 mg PO HS #90 tabs 06/10/23 venlafaxine 150 mg 150 mg PO QAM #90 caps 06/16/23 capsule,extended release 24 hr apixaban 5 mg tablet (Eliquis) 5 mg PO BID #60 tabs 06/23/23 peg [id number] [id number] See Rx Instructions PO .COMPLEX #2 08/19/23 178.7-7.3-0.5-1.12-0.9 gram oral mL soln (Suflave) Results & Data (ED) Vital Signs Vital Signs - 24 hr 09/27/23 05:42 09/27/23 06:03 09/27/23 06:05 Temperature 36.6 C Temperature Source Oral Pulse Rate 83 85 Pulse Rate [Apical] Pulse Rate from SpO2 Sensor Respiratory Rate 14 Respiratory Effort / Characteristics Non-Labored Spontaneous Respiratory Depth Normal Normal Blood Pressure 208/125 H Blood Pressure [Right Arm] Blood Pressure Mean 152 Blood Pressure Mean [Right Arm] Blood Pressure Position [Right Arm] Pulse Oximetry 96 Oxygen Delivery Method Room Air Sepsis Recent Fever Within 48 Hours No Sepsis New/Unexplained Change in Mental Status No Sepsis Action Taken by Nursing No Action Required 09/27/23 06:57 09/27/23 07:00 09/27/23 07:30 Temperature Temperature Source Pulse Rate 92 H 89 83 Pulse Rate [Apical] Pulse Rate from SpO2 Sensor 88 83 Respiratory Rate 15 12 Respiratory Effort / Characteristics Respiratory Depth Blood Pressure 198/130 H 191/111 H 196/146 H Blood Pressure [Right Arm] Blood Pressure Mean 137 162 Blood Pressure Mean [Right Arm] Blood Pressure Position [Right Arm] Pulse Oximetry 98 94 Oxygen Delivery Method Room Air Room Air Sepsis Recent Fever Within 48 Hours Sepsis New/Unexplained Change in Mental Status Sepsis Action Taken by Nursing 09/27/23 08:00 09/27/23 08:30 09/27/23 08:57 Temperature Temperature Source Pulse Rate 89 83 Pulse Rate [Apical] 83 Pulse Rate from SpO2 Sensor 89 85 Respiratory Rate 16 14 14 Respiratory Effort / Characteristics Non-Labored Spontaneous Respiratory Depth Normal Blood Pressure 177/136 H 203/129 H Blood Pressure [Right Arm] 199/127 H Blood Pressure Mean 149 153 Blood Pressure Mean [Right Arm] 151 Blood Pressure Position [Right Arm] Lying Pulse Oximetry 93 95 95 Oxygen Delivery Method Room Air Room Air Room Air Sepsis Recent Fever Within 48 Hours Sepsis New/Unexplained Change in Mental Status Sepsis Action Taken by Nursing 09/27/23 09:00 09/27/23 09:30 09/27/23 10:06 Temperature Temperature Source Pulse Rate 86 91 H 96 H Pulse Rate [Apical] Pulse Rate from SpO2 Sensor 83 91 H Respiratory Rate 14 17 Respiratory Effort / Characteristics Respiratory Depth Blood Pressure 178/113 H 190/129 H 187/123 H Blood Pressure [Right Arm] Blood Pressure Mean 134 149 Blood Pressure Mean [Right Arm] Blood Pressure Position [Right Arm] Pulse Oximetry 95 97 Oxygen Delivery Method Sepsis Recent Fever Within 48 Hours Sepsis New/Unexplained Change in Mental Status Sepsis Action Taken by Nursing 09/27/23 10:14 09/27/23 10:26 09/27/23 11:30 Temperature Temperature Source Pulse Rate 87 91 H 98 H Pulse Rate [Apical] Pulse Rate from SpO2 Sensor 87 95 H Respiratory Rate 22 13 Respiratory Effort / Characteristics Respiratory Depth Blood Pressure 161/111 H 207/135 H Blood Pressure [Right Arm] Blood Pressure Mean 127 159 Blood Pressure Mean [Right Arm] Blood Pressure Position [Right Arm] Pulse Oximetry 97 94 Oxygen Delivery Method Room Air Sepsis Recent Fever Within 48 Hours Sepsis New/Unexplained Change in Mental Status Sepsis Action Taken by Nursing 09/27/23 11:45 09/27/23 12:00 09/27/23 12:29 Temperature Temperature Source Pulse Rate 97 H 96 H Pulse Rate [Apical] 98 H Pulse Rate from SpO2 Sensor 98 H 97 H Respiratory Rate 14 14 17 Respiratory Effort / Characteristics Non-Labored Spontaneous Respiratory Depth Normal Blood Pressure 194/127 H 190/126 H Blood Pressure [Right Arm] 184/115 H Blood Pressure Mean 149 147 Blood Pressure Mean [Right Arm] 138 Blood Pressure Position [Right Arm] Pulse Oximetry 95 94 96 Oxygen Delivery Method Room Air Room Air Room Air Sepsis Recent Fever Within 48 Hours Sepsis New/Unexplained Change in Mental Status Sepsis Action Taken by Nursing Laboratory Data 09/27/23 06:47 09/27/23 06:47 Lab Results 09/27/23 09/27/23 Range/Units 06:47 10:14 WBC 10.11 (4.8-10.8) K/ul RBC 4.73 (4.20-5.40) M/uL Hgb 14.6 (12.0-16.0) g/dl Hct 43.1 (37.0-47.0) % MCV 91.1 (80.0-100.0) fL MCH 30.9 (25.0-34.0) pg MCHC 33.9 (32.0-36.0) g/dL RDW Std Deviation 41.0 (36.4-46.3) fL RDW Coeff of Jose Luis 12.2 (11.5-14.5) % Plt Count 304 (130-400) K/uL MPV 9.7 (9.4-12.4) fL Immature Gran % (Auto) 0.5 % Neut % (Auto) 71.7 % Lymph % (Auto) 20.1 % [place] % (Auto) 4.5 % Eos % (Auto) 2.1 % Baso % (Auto) 1.1 % Neut # (Auto) 7.26 H (1.40-6.50) K/uL Lymph # (Auto) 2.03 (1.20-3.40) K/uL [place] # (Auto) 0.45 (0.11-0.59) K/uL Eos # (Auto) 0.21 (0.00-0.50) K/uL Baso # (Auto) 0.11 (0.00-0.20) K/uL Immature Gran # (Auto) 0.05 (0.01-0.20) K/uL PT 10.7 (9.0-12.0) Seconds INR 1.0 (0.9-1.1) Sodium 137 (136-145) mmol/L Potassium 4.4 (3.5-5.1) mmol/L Chloride 101 (98-107) mmol/L Carbon Dioxide 24 (21-32) mmol/L Anion Gap 12 H (3-11) BUN 20 (6-23) mg/dl Creatinine 0.99 (0.6-1.2) mg/dl Est Cr Clr Drug Dosing 65.9 ml/min Est GFR ( Amer) 73.3 ml/min Est GFR (Non-Af Amer) 63.3 ml/min BUN/Creatinine Ratio 20.2 H (10-20) Glucose 212 H (70-99(Fasting)) mg/dl Calcium 10.2 (8.6-10.3) mg/dl Total Bilirubin 0.4 (0.2-1.0) mg/dl AST 28 (13-39) U/L ALT 33 (7-52) U/L Alkaline Phosphatase 85 (34-104) U/L Troponin I High Sens 10.3 21.6 H D (0-14) pg/ml Total Protein 7.7 (6.0-8.3) gm/dl Albumin 4.7 (3.4-5.0) gm/dl Globulin 3.0 (2.5-4.0) gm/dl Albumin/Globulin Ratio 1.6 (0.9-2) Lipase 27 (11-82) U/L Blood Type O Positive Antibody Screen NEGATIVE Administered Medications Discontinued Medications Diphenhydramine HCl (Diphenhydramine 50 Mg/Ml Vial) 50 mg IV ONE ONE Stop: 09/27/23 06:34 Last Admin: 09/27/23 06:57 Dose: 50 mg Documented By: ELISEO Hydralazine HCl (Hydralazine Hcl 20 Mg/Ml Vial) 10 mg IV NOW STA Stop: 09/27/23 11:53 Last Admin: 09/27/23 12:20 Dose: 10 mg Documented By: ROOSEVELT Ioversol (Optiray 320 125ml) 115 ml IV ONCE ONE Stop: 09/27/23 08:02 Last Admin: 09/27/23 08:02 Dose: 115 ml Documented By: EMILY Labetalol HCl (Labetalol Hcl Iv 5 Mg/Ml 20ml) 10 mg IV NOW STA Stop: 09/27/23 06:41 Last Admin: 09/27/23 06:57 Dose: 10 mg Documented By: ELISEO Co-signed By: ROOSEVELT Labetalol HCl (Labetalol Hcl Iv 5 Mg/Ml 20ml) 15 mg IV NOW STA Stop: 09/27/23 09:59 Last Admin: 09/27/23 10:06 Dose: 15 mg Documented By: ROOSEVELT Co-signed By: PHANI Methylprednisolone (Methylprednisolone 40 Mg/Ml Vial) 40 mg IV NOW ONE Stop: 09/27/23 06:34 Last Admin: 09/27/23 06:57 Dose: 40 mg Documented By: ELISEO Morphine Sulfate (Morphine Sulfate 4 Mg/Ml 1 Ml Carp\\Vial) 4 mg IV NOW STA Stop: 09/27/23 06:36 Last Admin: 09/27/23 06:57 Dose: 4 mg Documented By: ELISEO Ondansetron HCl (Ondansetron Inj 2 Mg/Ml 2 Ml Vial) 4 mg IV NOW STA Stop: 09/27/23 06:36 Last Admin: 09/27/23 06:57 Dose: 4 mg Documented By: ELISEO Imaging Data Radiologist's Impression: Chest X-Ray 09/27/23 06:24 SINGLE VIEW CHEST CLINICAL HISTORY: Atypical chest pain FINDINGS: 2 AP, portable, upright chest radiographs are compared to study dated 11/11/2022. Correlation is made with chest CT dated 08/28/2017. The cardiomediastinal silhouette is top normal for projection noting atherosclerotic calcification of the thoracic aorta. Emphysema and chronic interstitial thickening is similar to previous. There is mild bibasilar scarring/atelectasis. The lungs and pleural spaces are otherwise clear. No pneumothorax is seen. The skeletal structures are osteopenic. Fusion hardware is seen in the lower cervical spine. There are chronic/healed right-sided rib fractures. IMPRESSION: Emphysematous change with no active disease in the chest. ACT 112: Negative or not required by law. Electronically signed by: Armin Sylvester M.D. 09/27/2023 7:31 AM Chest CTA 09/27/23 06:33 CT ANGIOGRAM OF THE CHEST COMBO; CT ANGIOGRAM OF THE ABDOMEN AND PELVIS CLINICAL HISTORY: Atypical chest pain. Generalized abdominal pain. COMPARISON STUDY: Chest x-ray dated 09/27/2023. Chest CT dated 08/28/2017. Abdominal CT dated 06/17/2023. TECHNIQUE: Unenhanced CT scan of the chest was performed. Subsequently, following the IV administration of 115 cc of Optiray 320, CT angiogram of the chest, abdomen, and pelvis was performed from the thoracic inlet to the proximal femora. Images are reviewed in the axial, sagittal, and coronal planes. 3-D MIPS images are created and assessed. IV contrast was administered without complication. A dose lowering technique was utilized adhering to the principles of ALARA. The examinations are degraded by motion artifact, as well as by streak artifact from the right arm which could not be elevated above the chest or abdomen. CT DOSE: 2375.69 mGy.cm FINDINGS: CHEST: Thyroid: Imaged portions of the thyroid gland are normal in size and attenuation. Thoracic aorta: No intramural hematoma is seen on the unenhanced series. There is moderate atherosclerotic calcification of the thoracic aorta, which is normal in caliber and demonstrates standard 3-vessel anatomy. No dissection is seen. The arch vessels are widely patent. Pulmonary vasculature: The pulmonary trunk is normal in caliber. There are no filling defects identified in the central pulmonary vessels to indicate pulmonary embolus. Note that this examination was not protocoled for evaluation of the pulmonary arteries. Heart: The heart is top normal in size and without pericardial effusion. There are coronary artery calcifications. Lungs and pleural spaces: Emphysematous change is noted. The trachea and central airways are clear. No airspace consolidation or pleural effusion is identified. Dependent atelectasis is seen bilaterally. Mediastinum: There is no mediastinal lymphadenopathy. Simin: Clear. Axillae: There is no axillary lymphadenopathy. Bony thorax: The skeletal structures are osteopenic. Degenerative change is noted in the thoracic spine. Fusion hardware is seen in the lower cervical spine. No destructive bony lesions are identified. There are chronic/healed right-sided rib fractures. ABDOMEN AND PELVIS: Liver: The contrast-enhanced liver is enlarged, measuring 22 cm in length. The liver demonstrates diffusely diminished attenuation indicating steatosis. Fatty sparing is seen adjacent to the gallbladder fossa. There is no intrahepatic biliary ductal dilatation. A subcentimeter hypervascular focus in the right lobe on image #140 likely represents a flash filling hemangioma versus shunt vascularity. The main portal veins appear patent. Gallbladder: Unremarkable. Spleen: Normal in size and attenuation noting heterogeneous arterial phase enhancement. Pancreas: Unremarkable. Adrenal glands: Unremarkable. Kidneys: The contrast enhanced kidneys are normal in size and without hydronephrosis. The kidneys enhance symmetrically. Abdominal aorta and iliac arteries: There is moderate arthrosis chronic calcification of the abdominal aorta which is normal in caliber. The abdominal aorta is patent with no dissection seen. There is postsurgical change from aortobiiliac bypass grafting. The left iliac graft is thrombosed, and a femorofemoral bypass is patent. The [place] common iliac arteries are diminutive but patent noting advanced atherosclerotic plaque and irregularity. The [place] internal iliac arteries are patent bilaterally. There is at least moderate stenosis at the origin of both internal iliac arteries. The [place] external iliac arteries are occluded bilaterally. Imaged portions of the proximal superficial femoral arteries are patent bilaterally. Fluid is again seen around the femorofemoral bypass. The largest pockets the fluid are seen around the anastomoses in the bilateral groin. The pocket on the right measures 3.2 x 3.6 cm and the pocket on the left measures 4.2 x 5.6 cm. Major branches of the abdominal aorta: The celiac trunk, superior mesenteric, and inferior mesenteric arteries are patent. There is mild ectasia of the celiac trunk which measures up to 8 mm. Hepatic arterial anatomy is conventional. The splenic artery is patent. Single bilateral renal arteries are patent. Stomach and bowel: There is a small hiatal hernia. There is rectosigmoid fecal retention and mild constipation. No bowel obstruction is seen. There is moderate to advanced colonic diverticulosis without CT evidence of acute diverticulitis. The appendix is well-visualized and normal. Peritoneum: There is no intraperitoneal free air or abdominal ascites. There are fat-containing umbilical and supraumbilical hernias. A midline surgical scar is noted. Lymphadenopathy: None. Pelvic viscera: The bladder is normal as visualized. The uterus is surgically absent. No adnexal lesion is seen. Skeletal structures: The skeletal structures are osteopenic. There is moderate lumbosacral spondylosis. No destructive bony lesions are seen. IMPRESSION: 1. Unremarkable CT angiogram of the thoracic aorta. 2. Emphysema. 3. There is no airspace consolidation or pleural effusion. 4. The patient is status post aortobiiliac bypass as well as femorofemoral bypass as above. The femorofemoral bypass is patent. 5. The major branches of the abdominal aorta are patent. 6. A nonspecific fluid collection is again seen around the femorofemoral bypass graft as detailed above. This is not significantly changed as compared to 06/17/2023 and clinical correlation will be required. 7. Hepatomegaly and hepatic steatosis. 8. Colonic diverticulosis without CT evidence of acute diverticulitis. 9. Rectosigmoid fecal retention. 10. Additional findings as above. ACT 112: Negative or not required by law. Electronically signed by: Armin Sylvester M.D. 09/27/2023 9:33 AM Abdomen/Pelvis CTA 09/27/23 06:34 CT ANGIOGRAM OF THE CHEST COMBO; CT ANGIOGRAM OF THE ABDOMEN AND PELVIS CLINICAL HISTORY: Atypical chest pain. Generalized abdominal pain. COMPARISON STUDY: Chest x-ray dated 09/27/2023. Chest CT dated 08/28/2017. Abdominal CT dated 06/17/2023. TECHNIQUE: Unenhanced CT scan of the chest was performed. Subsequently, following the IV administration of 115 cc of Optiray 320, CT angiogram of the chest, abdomen, and pelvis was performed from the thoracic inlet to the proximal femora. Images are reviewed in the axial, sagittal, and coronal planes. 3-D MIPS images are created and assessed. IV contrast was administered without complication. A dose lowering technique was utilized adhering to the principles of ALARA. The examinations are degraded by motion artifact, as well as by streak artifact from the right arm which could not be elevated above the chest or abdomen. CT DOSE: 2375.69 mGy.cm FINDINGS: CHEST: Thyroid: Imaged portions of the thyroid gland are normal in size and attenuation. Thoracic aorta: No intramural hematoma is seen on the unenhanced series. There is moderate atherosclerotic calcification of the thoracic aorta, which is normal in caliber and demonstrates standard 3-vessel anatomy. No dissection is seen. The arch vessels are widely patent. Pulmonary vasculature: The pulmonary trunk is normal in caliber. There are no filling defects identified in the central pulmonary vessels to indicate pulmonary embolus. Note that this examination was not protocoled for evaluation of the pulmonary arteries. Heart: The heart is top normal in size and without pericardial effusion. There are coronary artery calcifications. Lungs and pleural spaces: Emphysematous change is noted. The trachea and central airways are clear. No airspace consolidation or pleural effusion is identified. Dependent atelectasis is seen bilaterally. Mediastinum: There is no mediastinal lymphadenopathy. Simin: Clear. Axillae: There is no axillary lymphadenopathy. Bony thorax: The skeletal structures are osteopenic. Degenerative change is noted in the thoracic spine. Fusion hardware is seen in the lower cervical spine. No destructive bony lesions are identified. There are chronic/healed right-sided rib fractures. ABDOMEN AND PELVIS: Liver: The contrast-enhanced liver is enlarged, measuring 22 cm in length. The liver demonstrates diffusely diminished attenuation indicating steatosis. Fatty sparing is seen adjacent to the gallbladder fossa. There is no intrahepatic biliary ductal dilatation. A subcentimeter hypervascular focus in the right lobe on image #140 likely represents a flash filling hemangioma versus shunt vascularity. The main portal veins appear patent. Gallbladder: Unremarkable. Spleen: Normal in size and attenuation noting heterogeneous arterial phase enhancement. Pancreas: Unremarkable. Adrenal glands: Unremarkable. Kidneys: The contrast enhanced kidneys are normal in size and without hydronephrosis. The kidneys enhance symmetrically. Abdominal aorta and iliac arteries: There is moderate arthrosis chronic calcification of the abdominal aorta which is normal in caliber. The abdominal aorta is patent with no dissection seen. There is postsurgical change from aortobiiliac bypass grafting. The left iliac graft is thrombosed, and a femorofemoral bypass is patent. The [place] common iliac arteries are diminutive but patent noting advanced atherosclerotic plaque and irregularity. The [place] internal iliac arteries are patent bilaterally. There is at least moderate stenosis at the origin of both internal iliac arteries. The [place] external iliac arteries are occluded bilaterally. Imaged portions of the proximal superficial femoral arteries are patent bilaterally. Fluid is again seen around the femorofemoral bypass. The largest pockets the fluid are seen around the anastomoses in the bilateral groin. The pocket on the right measures 3.2 x 3.6 cm and the pocket on the left measures 4.2 x 5.6 cm. Major branches of the abdominal aorta: The celiac trunk, superior mesenteric, and inferior mesenteric arteries are patent. There is mild ectasia of the celiac trunk which measures up to 8 mm. Hepatic arterial anatomy is conventional. The splenic artery is patent. Single bilateral renal arteries are patent. Stomach and bowel: There is a small hiatal hernia. There is rectosigmoid fecal retention and mild constipation. No bowel obstruction is seen. There is moderate to advanced colonic diverticulosis without CT evidence of acute diverticulitis. The appendix is well-visualized and normal. Peritoneum: There is no intraperitoneal free air or abdominal ascites. There are fat-containing umbilical and supraumbilical hernias. A midline surgical scar is noted. Lymphadenopathy: None. Pelvic viscera: The bladder is normal as visualized. The uterus is surgically absent. No adnexal lesion is seen. Skeletal structures: The skeletal structures are osteopenic. There is moderate lumbosacral spondylosis. No destructive bony lesions are seen. IMPRESSION: 1. Unremarkable CT angiogram of the thoracic aorta. 2. Emphysema. 3. There is no airspace consolidation or pleural effusion. 4. The patient is status post aortobiiliac bypass as well as femorofemoral bypass as above. The femorofemoral bypass is patent. 5. The major branches of the abdominal aorta are patent. 6. A nonspecific fluid collection is again seen around the femorofemoral bypass graft as detailed above. This is not significantly changed as compared to 06/17/2023 and clinical correlation will be required. 7. Hepatomegaly and hepatic steatosis. 8. Colonic diverticulosis without CT evidence of acute diverticulitis. 9. Rectosigmoid fecal retention. 10. Additional findings as above. ACT 112: Negative or not required by law. Electronically signed by: Armin Sylvester M.D. 09/27/2023 9:[address] 09/27/23 11:15 CT SCAN OF THE BRAIN WITHOUT IV CONTRAST CLINICAL HISTORY: Headache. Hypertension. COMPARISON STUDY: CT of the brain dated 11/16/2022. TECHNIQUE: Unenhanced axial CT scan of the brain is performed from the vertex to the skull base. A dose lowering technique was utilized adhering to the principles of ALARA. CT DOSE: 657.02 mGy.cm FINDINGS: Brain parenchyma: There is age-related involutional change noting moderate subcortical and periventricular microangiopathic disease. There is residual IV contrast within the intracranial vessels and sinuses. This degrades assessment for hemorrhage. There is no evidence of hemorrhage or mass effect. There is no evidence of acute territorial ischemia by CT criteria. Chance-white matter differentiation is preserved. No extra-axial fluid collection is seen. Ventricles, sulci, cisterns: Prominent secondary to involutional change. Intracranial vasculature: There is atherosclerotic calcification of the cavernous carotid arteries. Calvarium: Unremarkable. Sinuses and mastoids: The visualized paranasal sinuses are clear. The mastoid air cells are well pneumatized. Orbits: The bony orbits are grossly intact. There are bilateral ocular lens implants. IMPRESSION: There is no evidence of hemorrhage, mass effect, or acute territorial ischemia by CT criteria. ACT 112: Negative or not required by law. Electronically signed by: Armin Sylvester M.D. 09/27/2023 11:44 AM Discharge Plan Visit Data Chief Complaint: Hypertension Stated Complaint: Hypertension, Headache, Chest Pain, N/V ED Provider: Walt Gottlieb Discharge Problem: Hypertensive urgency, malignant Forms Stand Alone Forms: My [facility] Prescriptions Prescriptions: No Action pantoprazole 40 mg tablet,delayed release (DR/EC) 40 mg PO BID Qty: 180 2RF losartan 50 mg tablet 50 mg PO DAILY Qty: 90 3RF levetiracetam [Keppra] 1,000 mg tablet 1,000 mg PO BID Qty: 180 1RF ondansetron HCl 4 mg tablet 4 mg PO Q8H PRN (Reason: nausea and vomiting) Qty: 30 2RF clopidogrel [Plavix] 75 mg tablet 75 mg PO HS Qty: 90 1RF Patient Comments: PER DR PERSON OFFICE, TOLD TO STOP 7 DAYS BEFORE PROCEDURE amitriptyline 25 mg tablet 25 mg PO HS Qty: 90 1RF venlafaxine 150 mg capsule,extended release 24hr 150 mg PO QAM Qty: 90 1RF Eliquis 5 mg tablet 5 mg PO BID Qty: 60 2RF Suflave 178.7-7.3-0.5 gram recon soln See Rx Instructions PO .COMPLEX Qty: 2 0RF Rx Instructions: Unable to verify this medication w/ patient/family at this date/time. orally; TAKE FIRST DOSE AT 6 PM AND SECOND DOSE 6 HOURS PRIOR TO PROCEDURE BIN: [id number] PCN: CN GROUP: [id number] Combivent Respimat 20-100 mcg/actuation mist 1 puff inhalation Q6H PRN (Reason: SOB) carvedilol 25 mg tablet 25 mg PO BID Qty: 60 2RF Rx Instructions: must administer with a meal/food lorazepam 0.5 mg tablet 0.5 mg PO TID PRN (Reason: vertigo) Qty: 30 0RF Rx Instructions: central vertigo (DME) Auto Titrating CPAP Misc See Rx Instructions .ROUTE .MEDSUPPLY Qty: 1 0RF Rx Instructions: As directed Nightly multivitamin Tablet 0 tab PO QAM Rx Instructions: Unable to verify this medication w/ patient/family at this date/time. Medical Marijuana 0 dose PO DIRECTED PRN (Reason: Pain) Rx Instructions: Unable to verify this medication w/ patient/family at this date/time. rosuvastatin [Crestor] 40 mg Tablet 40 mg PO HS sulfamethoxazole-trimethoprim 800-160 mg tablet 1 tab PO DAILY clonidine HCl 0.1 mg tablet 0 mg PO BID Rx Instructions: Take if systolic BP is >160, diastolic BP >100- TAKE UP TO FOUR TIMES DAILY IF NEEDED PER PT. Unable to verify this medication w/ patient/family at this date/time. Original Directions: 0.1mg by mouth twice daily ferrous sulfate 325 mg (65 mg iron) tablet 0 mg PO BID Rx Instructions: Unable to verify this medication w/ patient/family at this date/time. folic acid 1 mg tablet 0 mg PO DAILY Rx Instructions: Unable to verify this medication w/ patient/family at this date/time. Original Directions: 1mg by mouth once daily cholecalciferol (vitamin D3) 50 mcg (2,000 unit) tablet 0 unit PO HS Rx Instructions: Unable to verify this medication w/ patient/family at this date/time. mecobalamin (vitamin B12) 1,000 mcg tablet,chewable 0 mcg PO DAILY Rx Instructions: Unable to verify this medication w/ patient/family at this date/time. Referrals Referrals: Teena Killian DO [Primary Care Provider] -
[2023-09-27] MEDS: ONDANSETRON INJ 2 MG/ML 2 ML VIAL IV STA ×2 (06:57→15:48)
[2023-09-27] MEDS: MoRPHine SULFATE 4 MG/ML 1 ML CARP\\VIAL IV STA (06:57)
[2023-09-27] MEDS: diphenhydrAMINE 50 MG/ML VIAL IV ONE (06:57)
[2023-09-27] MEDS: LABETALOL HCL IV 5 MG/ML 20ML IV STA ×4 (06:57→16:27)
[2023-09-27 07:10] LABS: Basophils # (auto) 0.11 K/uL (0.00-0.20); Basophils % (auto) 1.1 %; Eosinophils # (auto) 0.21 K/uL (0.00-0.50); Eosinophils % (auto) 2.1 %; Hematocrit (blood only) 43.1 % (37.0-47.0); Hemoglobin 14.6 g/dl (12.0-16.0); Immature Granulocytes # (auto) 0.05 K/uL (0.01-0.20); Immature Granulocytes % (auto) 0.5 %; Lymphocytes # (auto) 2.03 K/uL (1.20-3.40); Lymphocytes % (auto) 20.1 %; Mean Corpuscular Hemoglobin 30.9 pg (25.0-34.0); Mean Corpuscular Hgb Conc 33.9 g/dL (32.0-36.0); Mean Corpuscular Volume 91.1 fL (80.0-100.0); Mean Platelet Volume 9.7 fL (9.4-12.4); Monocytes # (auto) 0.45 K/uL (0.11-0.59); Monocytes % (auto) 4.5 %; Neutrophils # (auto) 7.26 K/uL (1.40-6.50); Neutrophils % (auto) 71.7 %; Platelet Count 304 K/uL (130-400); RDW Coefficient of Variation 12.2 % (11.5-14.5); Red Blood Count 4.73 M/uL (4.20-5.40); White Blood Count 10.11 K/ul (4.8-10.8)
--- NOTE | 2023-09-27 07:15 | Electrocardiogram Report ---
Test Reason : Blood Pressure : / mmHG Vent. Rate : 085 BPM Atrial Rate : 085 BPM P-R Int : 222 ms QRS Dur : 092 ms QT Int : 402 ms P-R-T Axes : 050 -27 044 degrees QTc Int : 478 ms Sinus rhythm with 1st degree A-V block with frequent Premature ventricular complexes in a pattern of bigeminy Otherwise normal ECG When compared with ECG of 16-NOV-2022 05:38, Premature ventricular complexes are now Present Borderline criteria for Inferior infarct are no longer Present Confirmed by Pako Holland ([id number]) on 09/27/2023 7:14:36 AM Referred By: Confirmed By:Tereso Holland
[2023-09-27 07:31] LABS: Albumin Globulin Ratio 1.6 (0.9-2); Albumin Level 4.7 gm/dl (3.4-5.0); BUN Creatinine Ratio 20.2 (10-20); Bilirubin,Total 0.4 mg/dl (0.2-1.0); Calcium 10.2 mg/dl (8.6-10.3); Creatinine Clr Calc Pharmacy 65.9 ml/min; Est GFR (African American) 73.3 ml/min; Est GFR (Non-African American) 63.3 ml/min; Potassium 4.4 mmol/L (3.5-5.1); Total Protein 7.7 gm/dl (6.0-8.3)
--- NOTE | 2023-09-27 07:33 | XRay Report ---
SINGLE VIEW CHEST CLINICAL HISTORY: Atypical chest pain FINDINGS: 2 AP, portable, upright chest radiographs are compared to study dated 11/11/2022. Correlatio n is made with chest CT dated 08/28/2017. The cardiomediastinal silhouette is top normal for projectio n noting atherosclerotic calcification of the thoracic aorta. Emphysema and chronic interstitial thic kening is similar to previous. There is mild bibasilar scarring/atelectasis. The lungs and pleural sp aces are otherwise clear. No pneumothorax is seen. The skeletal structures are osteopenic. Fusion hannah dware is seen in the lower cervical spine. There are chronic/healed right-sided rib fractures. IMPRESSION: Emphysematous change with no active disease in the chest. ACT 112: Negative or not required by law. Electronically signed by: Armin Sylvester M.D. 09/27/2023 7:31 AM
[2023-09-27 07:37] LABS: Troponin I High Sensitivity 10.3 pg/ml (0-14)
[2023-09-27 07:42] LABS: Prothrombin Time 10.7 Seconds (9.0-12.0)
[2023-09-27] MEDS: OPTIRAY 320 125ml IV ONE (08:02)
--- NOTE | 2023-09-27 09:36 | CT Scan Report ---
CT ANGIOGRAM OF THE CHEST COMBO; CT ANGIOGRAM OF THE ABDOMEN AND PELVIS CLINICAL HISTORY: Atypical chest pain. Generalized abdominal pain. COMPARISON STUDY: Chest x-ray dated 09/27/2023. Chest CT dated 08/28/2017. Abdominal CT dated 06/17/20. TECHNIQUE: Unenhanced CT scan of the chest was performed. Subsequently, following the IV administrati on of 115 cc of Optiray 320, CT angiogram of the chest, abdomen, and pelvis was performed from the th oracic inlet to the proximal femora. Images are reviewed in the axial, sagittal, and coronal planes. 3-D MIPS images are created and assessed. IV contrast was administered without complication. A dose l owering technique was utilized adhering to the principles of ALARA. The examinations are degraded by motion artifact, as well as by streak artifact from the right arm which could not be elevated above t he chest or abdomen. CT DOSE: 2375.69 mGy.cm FINDINGS: CHEST: Thyroid: Imaged portions of the thyroid gland are normal in size and attenuation. Thoracic aorta: No intramural hematoma is seen on the unenhanced series. There is moderate atheroscle rotic calcification of the thoracic aorta, which is normal in caliber and demonstrates standard 3-ves david anatomy. No dissection is seen. The arch vessels are widely patent. Pulmonary vasculature: The pulmonary trunk is normal in caliber. There are no filling defects identif ied in the central pulmonary vessels to indicate pulmonary embolus. Note that this examination was no t protocoled for evaluation of the pulmonary arteries. Heart: The heart is top normal in size and without pericardial effusion. There are coronary artery ca lcifications. Lungs and pleural spaces: Emphysematous change is noted. The trachea and central airways are clear. N o airspace consolidation or pleural effusion is identified. Dependent atelectasis is seen bilaterally . Mediastinum: There is no mediastinal lymphadenopathy. Simin: Clear. Axillae: There is no axillary lymphadenopathy. Bony thorax: The skeletal structures are osteopenic. Degenerative change is noted in the thoracic spi ne. Fusion hardware is seen in the lower cervical spine. No destructive bony lesions are identified. There are chronic/healed right-sided rib fractures. ABDOMEN AND PELVIS: Liver: The contrast-enhanced liver is enlarged, measuring 22 cm in length. The liver demonstrates dif fusely diminished attenuation indicating steatosis. Fatty sparing is seen adjacent to the gallbladder fossa. There is no intrahepatic biliary ductal dilatation. A subcentimeter hypervascular focus in th e right lobe on image #140 likely represents a flash filling hemangioma versus shunt vascularity. The main portal veins appear patent. Gallbladder: Unremarkable. Spleen: Normal in size and attenuation noting heterogeneous arterial phase enhancement. Pancreas: Unremarkable. Adrenal glands: Unremarkable. Kidneys: The contrast enhanced kidneys are normal in size and without hydronephrosis. The kidneys enh ance symmetrically. Abdominal aorta and iliac arteries: There is moderate arthrosis chronic calcification of the abdomina l aorta which is normal in caliber. The abdominal aorta is patent with no dissection seen. There is p ostsurgical change from aortobiiliac bypass grafting. The left iliac graft is thrombosed, and a femor ofemoral bypass is patent. The [place] common iliac arteries are diminutive but patent noting advanced atherosclerotic plaque and irregularity. The [place] internal iliac arteries are patent bilaterally. There is at least moderate stenosis at the origin of both internal iliac arteries. The [place] externa l iliac arteries are occluded bilaterally. Imaged portions of the proximal superficial femoral arteri es are patent bilaterally. Fluid is again seen around the femorofemoral bypass. The largest pockets t he fluid are seen around the anastomoses in the bilateral groin. The pocket on the right measures 3.2 x 3.6 cm and the pocket on the left measures 4.2 x 5.6 cm. Major branches of the abdominal aorta: The celiac trunk, superior mesenteric, and inferior mesenteric arteries are patent. There is mild ectasia of the celiac trunk which measures up to 8 mm. Hepatic ar terial anatomy is conventional. The splenic artery is patent. Single bilateral renal arteries are pat ent. Stomach and bowel: There is a small hiatal hernia. There is rectosigmoid fecal retention and mild con stipation. No bowel obstruction is seen. There is moderate to advanced colonic diverticulosis without CT evidence of acute diverticulitis. The appendix is well-visualized and normal. Peritoneum: There is no intraperitoneal free air or abdominal ascites. There are fat-containing umbil ical and supraumbilical hernias. A midline surgical scar is noted. Lymphadenopathy: None. Pelvic viscera: The bladder is normal as visualized. The uterus is surgically absent. No adnexal lesi on is seen. Skeletal structures: The skeletal structures are osteopenic. There is moderate lumbosacral spondylosi s. No destructive bony lesions are seen. IMPRESSION: 1. Unremarkable CT angiogram of the thoracic aorta. 2. Emphysema. 3. There is no airspace consolidation or pleural effusion. 4. The patient is status post aortobiiliac bypass as well as femorofemoral bypass as above. The femor ofemoral bypass is patent. 5. The major branches of the abdominal aorta are patent. 6. A nonspecific fluid collection is again seen around the femorofemoral bypass graft as detailed abo ve. This is not significantly changed as compared to 06/17/2023 and clinical correlation will be requ ired. 7. Hepatomegaly and hepatic steatosis. 8. Colonic diverticulosis without CT evidence of acute diverticulitis. 9. Rectosigmoid fecal retention. 10. Additional findings as above. ACT 112: Negative or not required by law. Electronically signed by: Armin Sylvester M.D. 09/27/2023 9:33 AM
--- NOTE | 2023-09-27 11:46 | CT Scan Report ---
CT SCAN OF THE BRAIN WITHOUT IV CONTRAST CLINICAL HISTORY: Headache. Hypertension. COMPARISON STUDY: CT of the brain dated 11/16/2022. TECHNIQUE: Unenhanced axial CT scan of the brain is performed from the vertex to the skull base. A do se lowering technique was utilized adhering to the principles of ALARA. CT DOSE: 657.02 mGy.cm FINDINGS: Brain parenchyma: There is age-related involutional change noting moderate subcortical and periventri cular microangiopathic disease. There is residual IV contrast within the intracranial vessels and sin uses. This degrades assessment for hemorrhage. There is no evidence of hemorrhage or mass effect. The re is no evidence of acute territorial ischemia by CT criteria. Chance-white matter differentiation is preserved. No extra-axial fluid collection is seen. Ventricles, sulci, cisterns: Prominent secondary to involutional change. Intracranial vasculature: There is atherosclerotic calcification of the cavernous carotid arteries. Calvarium: Unremarkable. Sinuses and mastoids: The visualized paranasal sinuses are clear. The mastoid air cells are well pneu matized. Orbits: The bony orbits are grossly intact. There are bilateral ocular lens implants. IMPRESSION: There is no evidence of hemorrhage, mass effect, or acute territorial ischemia by CT jadet antwon. ACT 112: Negative or not required by law. Electronically signed by: Armin Sylvester M.D. 09/27/2023 11:44 AM
[2023-09-27] MEDS: hydrALAZINE HCL 20 MG/ML VIAL IV STA (12:20)
--- NOTE | 2023-09-27 12:49 | History & Physical Report ---
Date of Service September 27, 2023 Assessment & Plan (1) Posterior reversible encephalopathy syndrome (PRES): Plan: Seen on MRI, suspect causing recrudescence of her prior stroke symptoms with vertigo (see below) Nicardipine IV drip - aim 160-180 Labetalol 10mg IV q1h PRN if nicardipine drip ineffective Restart oral medications when able (2) Vertigo: Plan: Suspect recrudescence of her prior stroke with nystagmus on exam MRI does not suggest new CVA Ondansetron for nausea Diazepam 5mg IV given prior to MRI, will consider repeat doses if ondansetron not effective but essentially main treatment is for PRES (3) Obstructive sleep apnea: Plan: per PCP notes. Refuses CPAP and also not advised currently due to vomiting (4) Peripheral arterial disease: Plan: s/p aortobifemoral bypass 04/2021 with post procedure blood clot s/p femoral-femoral bypass surgery 09/2022 Restart clopidogrel and Eliquis when able to take PO meds Currently on suppressive Bactrim therapy as a precaution due to fluid collection (5) CAD (coronary artery disease): Plan: Mild-moderate on cardiac catheterization in 2016 - minimal troponin rise, will repeat in AM, patient currently without chest pain (6) Marijuana dependence: Plan: No history of cannabis hyperemesis per patient (7) HTN (hypertension): Plan: Restart her usual medications when able to take PO Last dose of oral medications was 09/26 night as she vomited up all her morning medications on day of admission (8) Seizure disorder: Plan: Switch Keppra to IV if unable to take PO meds Plan VTE Prophyalxis - restart Eliquis when able to take PO meds Diet - NPO Disposition - admit to PCU Admission and Anticipated Discharge Date Admission Date: Sep 27, 2023 History of Present Illness Chief Complaint: Headache, chest pain, abdominal pain, nausea, vomiting Primary Care Provider: DO Cyndie Romero is a 58 year old female who presents to the ER with headache, chest pain, abdominal pain, nausea, vomiting. She reports her symptoms started suddenly this morning around 2am. She reports feeling well yesterday. She has a notable history of cerebellar stroke in November 2022 with vertigo at that time and reports intermittent episodes of vertigo since then; this was confirmed on chart review with readmission for vertiginous symptoms the day after discharge. Ve rtiginous episodes however are usually much milder until today when the room suddenly started spinning causing intense nausea and vomiting. This is worse on head movement and when she opens her eyes. She smokes marijuana but denies any nausea/vomiting related to this. Abdominal pain and chest pain only occurs while vomiting and not currently present when seen in the ER. She notes a headache of 7/10 severity, bilateral frontal constant ache. She denies any history of migraines but does note it is worse with the lights on. Allergies Allergy/AdvReac Type Severity Reaction Status Date / Time napoles Allergy Intermediate Hives Verified 09/27/23 09:36 (green/hartman beans) doxycycline Allergy Intermediate Hives, Verified 09/27/23 09:36 vomiting Iodinated Contrast Media Allergy Intermediate Large Verified 09/27/23 09:36 hives, vomiting, "feeling hot" iodine Allergy Intermediate Hives, Verified 09/27/23 09:36 vomiting latex Allergy Intermediate Rash Verified 09/27/23 09:36 loperamide Allergy Intermediate Hives, Verified 09/27/23 09:36 vomiting meperidine Allergy Intermediate Hives, Verified 09/27/23 09:36 vomiting strawberry Allergy Intermediate Hives Verified 09/27/23 09:36 tomato Allergy Intermediate Hives Verified 09/27/23 09:36 prochlorperazine Allergy Mild N/V, Verified 09/27/23 09:36 itchiness Home Medications Medication Instructions Recorded Confirmed Type multivitamin 0 tab PO QAM 12/16/18 09/27/23 History rosuvastatin 40 mg tablet (Crestor) 40 mg PO HS 09/11/21 09/27/23 History Auto Titrating CPAP #1 ea 07/15/22 07/08/23 Rx Medical Marijuana 0 dose PO DIRECTED PRN Pain 09/12/22 09/27/23 History pantoprazole 40 mg tablet,delayed 40 mg PO BID #180 tabs 12/06/22 09/27/23 Rx release carvedilol 25 mg tablet 25 mg PO BID #60 tabs 01/01/23 09/27/23 Rx ipratropium 20 mcg-albuterol 100 1 puff inhalation Q6H PRN SOB 01/01/23 09/27/23 History mcg/actuation mist for inhalation (Combivent Respimat) lorazepam 0.5 mg tablet 0.5 mg PO TID PRN vertigo #30 tabs 01/01/23 09/27/23 Rx losartan 50 mg tablet 50 mg PO DAILY #90 tabs 03/05/23 09/27/23 Rx levetiracetam 1,000 mg tablet 1,000 mg PO BID #180 tabs 04/08/23 09/27/23 Rx (Keppra) clopidogrel 75 mg tablet (Plavix) 75 mg PO HS #90 tabs 06/02/23 09/27/23 Rx ondansetron HCl 4 mg tablet 4 mg PO Q8H PRN nausea and 06/02/23 09/27/23 Rx vomiting #30 tabs amitriptyline 25 mg tablet 25 mg PO HS #90 tabs 06/10/23 09/27/23 Rx venlafaxine 150 mg 150 mg PO QAM #90 caps 06/16/23 09/27/23 Rx capsule,extended release 24 hr apixaban 5 mg tablet (Eliquis) 5 mg PO BID #60 tabs 06/23/23 09/27/23 Rx peg 3350-sod [id number] See Rx Instructions PO .COMPLEX #2 08/19/23 09/27/23 Rx 178.7-7.3-0.5-1.12-0.9 gram oral mL soln (Suflave) cholecalciferol (vitamin D3) 50 0 unit PO HS 09/27/23 09/27/23 History mcg (2,000 unit) tablet clonidine HCl 0.1 mg tablet 0 mg PO BID 09/27/23 09/27/23 History ferrous sulfate 325 mg (65 mg 0 mg PO BID 09/27/23 09/27/23 History iron) tablet folic acid 1 mg tablet 0 mg PO DAILY 09/27/23 09/27/23 History mecobalamin (vitamin B12) 1,000 0 mcg PO DAILY 09/27/23 09/27/23 History mcg chewable tablet sulfamethoxazole 800 1 tab PO DAILY 09/27/23 09/27/23 History mg-trimethoprim 160 mg tablet Past Med/Surg History Medical History (Updated 09/28/23 @ 05:50 by DARREN Giang) Posterior reversible encephalopathy syndrome (PRES) Hypertensive urgency Elevated troponin Hypertensive emergency Hypokalemia Hypophosphatemia Tachycardia Postoperative nausea Seizures 2018 r/t hypertensive emergency > encephalopathy. last seizure 2019 Hematemesis History of COVID-19 03/18/22, pcr [facility], hospitalized day after diagnosis due to vomiting blood, discharged on 03/22/22; fever, vomiting, body chills and aches, diarrhea > resolved currently. 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 Maynard Cyclic vomiting syndrome no GI pathology on EGD, US, CT of abd/pelvis, celiac testing and GES per 04/2020 GI consult: biliary w/u and upper GI study recommended (upper GI study neg per d/c summary), cannabis cessation, continue Protonix and prn Zofran > currently controlled Obstructive sleep apnea mod-severe per PCP records (does not have device) GERD (gastroesophageal reflux disease) Renal artery stenosis following with Dr Maynard Seizure Proteinuria Cyclic vomiting syndrome Hypercalcemia HTN (hypertension) h/o multiple hypertensive urgency episodes, renal artery stenosis, following with cardiology and vascular surgery PRES (posterior reversible encephalopathy syndrome) has since caused seizures that started in 2018. following with PCP, last seizure per pt 08/2019 per PCP records Cannabinoid hyperemesis syndrome History of diverticulitis of colon Most recent 04/2022 Transient cerebrovascular ischemia Per records, pt unaware Anxiety disorder Cervical disc disorder Full ROM per pt Hyperlipidemia Multiple thyroid nodules Pulmonary emphysema well controlled per pt CAD (coronary artery disease) Mild-moderate non-obstructive CAD per 2017 cardiac cath Carotid stenosis < 50% stenosis B/L per US 12/16/18 Takotsubo cardiomyopathy 2017. Admitted [facility], full cardiac workup including cath. EF at the time 40%, now subsequent echos. Follows with Dr. Rodriguez NSTEMI (non-ST elevated myocardial infarction) 2017 Surgical History History of anesthesia reaction Low O2 sats during colonoscopy 04/2022 at [facility] and post-procedure elevated BP. Per post-op anesthesia progress note, O2 96-100% RA and "Pt has increased BP 2ndary to abdominal pain. Pt also has nausea w/ dry heaves. Pt to have CT scan per Dr Patten." History of tooth extraction History of cataract surgery bilat Status post surgery RLE thrombectomy S/P aortobifemoral bypass surgery Sep 2021 [facility] History of esophagogastroduodenoscopy (EGD) H/O cervical spine surgery ACDF C4-7 Dr. [place]: Grade 1 view, Bojorquez#2 and ETT#7.5 atraumatic x 1. No issues per anesthesia postop progress note. ROM WNL History of cardiac cath 2017 > no stents History of ovarian cystectomy History of hernia surgery right inguinal hernia repair History of hysterectomy Family History Father Family history of stomach cancer Malignant neoplasm of esophagus Stomach cancer Myocardial infarction Stroke Uncle Throat cancer Family history of cancer Grandmother (Maternal) Bone cancer Breast cancer Mother No problems noted. Brother Lung cancer Other Family history of diabetes mellitus No family history of adverse response to anesthesia No pertinent family history Denies family history of Colon cancer Ovarian cancer Prostate cancer Crohn's disease IBD (inflammatory bowel disease) Social History Smoking Status: Current every day smoker Tobacco Type: Cigarettes packs per day: 2; Second Hand Exposure: No; Do You Dip or Chew Tobacco: No; Tobacco Cessation Education Requested by Patient: No Hx Alcohol Use: No Hx Substance Use: Yes Last Used Substance: Just Prior to Arrival Last Used Substance Other:: PATIENT STATES THAT SHE USES MARIJUANA 3-4X YEAR FOR PAIN Substance Use Type Other:: medical card > flower Preferred Language: Latvian Communication Ability: Effective Visual Impairment: No Limitations Hearing Ability: Normal 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 Required: No Beliefs That Will Affect Care: None marital status: Current Living Situation: Significant Other Current Living Situation Comment: [place] current occupational status: employed 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 Other Information That Helps Us Care for You: No Feels Safe at Home: Yes Safety Concerns: Feels Safe At This Time Childhood Exposure to Second-Hand Smoke: Yes Diet: regular Diet Comment: Regular caffeine: Yes (1 cup of coffee) during the past year weight has: other Dental Care, Regularly: No Physical Activity Frequency: Daily Physical Activity Frequency Comment: walking Seatbelt Use: always Sunscreen Use: Yes Assistive Devices: None Review of Systems Review of Systems: All systems reviewed & are unremarkable except as noted in HPI & below Physical Exam Constitutional: well developed and + acute distress (vomiting while being seen); + not well nourished Eyes: PERRL, conjunctivae normal, anicteric sclerae + nystagmus (bilateral horizontal) ENMT: Ears: + unable to visualize TM (wax b/l) Mouth: + dry oral mucous membranes Respiratory: normal respiratory effort, lungs clear to auscultation Cardiovascular: RRR, no murmur, no edema Gastrointestinal (Abdomen): normal bowel sounds, soft, nontender, no hepatosplenomegaly Musculoskeletal: no cyanosis or clubbing, extremities motor strength 5/5 Skin: no rashes, warm and dry Neurologic: moves all extremities and awake; no focal motor deficits (no unilateral weakness) and not confused Psychiatric: A+Ox3, euthymic affect Genitourinary: no CVA tenderness Results & Data Results & Data Vital Signs (Past 12 Hours) Vital Signs Temp Pulse Pulse Resp BP BP Pulse Ox 09/27/23 12:29 98 H 17 184/115 H 96 09/27/23 12:00 96 H 14 190/126 H 94 09/27/23 11:45 97 H 14 194/127 H 95 09/27/23 11:30 98 H 13 207/135 H 94 09/27/23 10:26 91 H 09/27/23 10:14 87 22 161/111 H 97 09/27/23 10:06 96 H 187/123 H 09/27/23 09:30 91 H 17 190/129 H 97 09/27/23 09:00 86 14 178/113 H 95 09/27/23 08:57 83 14 199/127 H 95 09/27/23 08:30 83 14 203/129 H 95 09/27/23 08:00 89 16 177/136 H 93 09/27/23 07:30 83 12 196/146 H 94 09/27/23 07:00 89 15 191/111 H 98 09/27/23 06:57 92 H 198/130 H 09/27/23 06:05 85 09/27/23 05:42 36.6 C 83 14 208/125 H 96 O2 Del Method 09/27/23 12:29 Room Air 09/27/23 12:00 Room Air 09/27/23 11:45 Room Air 09/27/23 11:30 02/24/24 10:26 09/27/23 10:14 Room Air 09/27/23 10:06 09/27/23 09:30 09/27/23 09:00 09/27/23 08:57 Room Air 09/27/23 08:30 Room Air 09/27/23 08:00 Room Air 09/27/23 07:30 Room Air 09/27/23 07:00 Room Air 09/27/23 06:57 09/27/23 06:05 09/27/23 05:42 Room Air Laboratory Results Abnormal lab results 09/27/23 09/27/23 Range/Units 06:47 10:14 Neut # (Auto) 7.26 H (1.40-6.50) K/uL Anion Gap 12 H (3-11) BUN/Creatinine Ratio 20.2 H (10-20) Glucose 212 H (70-99(Fasting)) mg/dl Troponin I High Sens 21.6 H D (0-14) pg/ml Diagnostic Findings CT SCAN OF THE BRAIN WITHOUT IV CONTRAST CLINICAL HISTORY: Headache. Hypertension. COMPARISON STUDY: CT of the brain dated 11/16/2022. TECHNIQUE: Unenhanced axial CT scan of the brain is performed from the vertex to the skull base. A dose lowering technique was utilized adhering to the principles of ALARA. CT DOSE: 657.02 mGy.cm FINDINGS: Brain parenchyma: There is age-related involutional change noting moderate subcortical and periventricular microangiopathic disease. There is residual IV contrast within the intracranial vessels and sinuses. This degrades assessment for hemorrhage. There is no evidence of hemorrhage or mass effect. There is no evidence of acute territorial ischemia by CT criteria. Chance-white matter dif ferentiation is preserved. No extra-axial fluid collection is seen. Ventricles, sulci, cisterns: Prominent secondary to involutional change. Intracranial vasculature: There is atherosclerotic calcification of the cavernous carotid arteries. Calvarium: Unremarkable. Sinuses and mastoids: The visualized paranasal sinuses are clear. The mastoid air cells are well pneumatized. Orbits: The bony orbits are grossly intact. There are bilateral ocular lens implants. IMPRESSION: There is no evidence of hemorrhage, mass effect, or acute territorial ischemia by CT criteria. CT ANGIOGRAM OF THE CHEST COMBO; CT ANGIOGRAM OF THE ABDOMEN AND PELVIS CLINICAL HISTORY: Atypical chest pain. Generalized abdominal pain. COMPARISON STUDY: Chest x-ray dated 09/27/2023. Chest CT dated 08/28/2017. Abdominal CT dated 06/17/2023. TECHNIQUE: Unenhanced CT scan of the chest was performed. Subsequently, following the IV administration of 115 cc of Optiray 320, CT angiogram of the chest, abdomen, and pelvis was performed from the thoracic inlet to the proximal femora. Images are reviewed in the axial, sagittal, and coronal planes. 3-D MIPS images are created and assessed. IV contrast was administered without complication. A dose lowering technique was utilized adhering to the principles of ALARA. The examinations are degraded by motion artifact, as well as by streak artifact from the right arm which could not be elevated above the chest or abdomen. CT DOSE: 2375.69 mGy.cm FINDINGS: CHEST: Thyroid: Imaged portions of the thyroid gland are normal in size and attenu ation. Thoracic aorta: No intramural hematoma is seen on the unenhanced series. There is moderate atherosclerotic calcification of the thoracic aorta, which is normal in caliber and demonstrates standard 3-vessel anatomy. No dissection is seen. The arch vessels are widely patent. Pulmonary vasculature: The pulmonary trunk is normal in caliber. There are no filling defects identified in the central pulmonary vessels to indicate pulmonary embolus. Note that this examination was not protocoled for evaluation of the pulmonary arteries. Heart: The heart is top normal in size and without pericardial effusion. There are coronary artery calcifications. Lungs and pleural spaces: Emphysematous change is noted. The trachea and central airways are clear. No airspace consolidation or pleural effusion is identified. Dependent atelectasis is seen bilaterally. Mediastinum: There is no mediastinal lymphadenopathy. Simin: Clear. Axillae: There is no axillary lymphadenopathy. Bony thorax: The skeletal structures are osteopenic. Degenerative change is noted in the thoracic spine. Fusion hardware is seen in the lower cervical spine. No destructive bony lesions are identified. There are chronic/healed ri ght-sided rib fractures. ABDOMEN AND PELVIS: Liver: The contrast-enhanced liver is enlarged, measuring 22 cm in length. The liver demonstrates diffusely diminished attenuation indicating steatosis. Fatty sparing is seen adjacent to the gallbladder fossa. There is no intrahepatic biliary ductal dilatation. A subcentimeter hypervascular focus in the right lobe on image #140 likely represents a flash filling hemangioma versus shunt vascularity. The main portal veins appear patent. Gallbladder: Unremarkable. Spleen: Normal in size and attenuation noting heterogeneous arterial phase enhancement. Pancreas: Unremarkable. Adrenal glands: Unremarkable. Kidneys: The contrast enhanced kidneys are normal in size and without hydronephrosis. The kidneys enhance symmetrically. Abdominal aorta and iliac arteries: There is moderate arthrosis chronic calcification of the abdominal aorta which is normal in caliber. The abdominal aorta is patent with no dissection seen. There is postsurgical change from aortobiiliac bypass grafting. The left iliac graft is thrombosed, and a femorofemoral bypass is patent. The circle common iliac arteries are diminutive but patent noting advanced atherosclerotic plaque and irregularity. The circle internal iliac arteries are patent bilaterally. There is at least moderate stenosis at the origin of both internal iliac arteries. The circle external iliac arteries are occluded bilaterally. Imaged portions of the proximal superficial femoral arteries are patent bilaterally. Fluid is again seen around the femorofemoral bypass. The largest pockets the fluid are seen around the anastomoses in the bilateral groin. The pocket on the right measures 3.2 x 3.6 cm and the pocket on the left measures 4.2 x 5.6 cm. Major branches of the abdominal aorta: The celiac trunk, superior mesenteric, and inferior mesenteric arteries are patent. There is mild ectasia of the celiac trunk which measures up to 8 mm. Hepatic arterial anatomy is conventional. The splenic artery is patent. Single bilateral renal arteries are patent. Stomach and bowel: There is a small hiatal hernia. There is rectosigmoid fecal retention and mild constipation. No bowel obstruction is seen. There is moderate to advanced colonic diverticulosis without CT evidence of acute diverticulitis. The appendix is well-visualized and normal. Peritoneum: There is no intraperitoneal free air or abdominal ascites. There are fat-containing umbilical and supraumbilical hernias. A midline surgical scar is noted. Lymphadenopathy: None. Pelvic viscera: The bladder is normal as visualized. The uterus is surgically absent. No adnexal lesion is seen. Skeletal structures: The skeletal structures are osteopenic. There is moderate lumbosacral spondylosis. No destructive bony lesions are seen. IMPRESSION: 1. Unremarkable CT angiogram of the thoracic aorta. 2. Emphysema. 3. There is no airspace consolidation or pleural effusion. 4. The patient is status post aortobiiliac bypass as well as femorofemoral bypass as above. The femorofemoral bypass is patent. 5. The major branches of the abdominal aorta are patent. 6. A nonspecific fluid collection is again seen around the femorofemoral bypass graft as detailed above. This is not significantly changed as compared to 06/17/2023 and clinical correlation will be required. 7. Hepatomegaly and hepatic steatosis. 8. Colonic diverticulosis without CT evidence of acute diverticulitis. 9. Rectosigmoid fecal retention. 10. Additional findings as above. Medications Administered ER Medication Given: Diphenhydramine 50 mg IV Solu-Medrol 40 mg IV Morphine 4 mg IV Ondansetron 4 mg IV Labetalol 10 mg IV Labetalol 50 mg IV Hydralazine 10 mg IV ECG Rate (beats per minute): 85 Rhythm: normal sinus Findings: + PVC (Bigeminy) Comparison ECG Date: from (November 16, 2022) Change: the following changes noted (PVCs now present) Code Status & VTE Plan Code Status Full VTE Prophylaxis Plan VTE Prophylaxis will be ordered: Yes Critical Care Time Critical Care Time: Yes Total Critical Care Time: 40 PG Care Time/CCT Total # of Minutes Spent Total Time Spent with Patient: Total time spent is greater than 50% in coordination of care (as documented) at patient's floor/unit and/or counseling patient: Critical Care Time: Yes Total Critical Care Time: 40 Coding Level of Care Code 76087 INT INP/OBS CARE 3/75MIN Diagnoses Posterior reversible encephalopathy syndrome (PRES) I67.83 Vertigo R42 Obstructive sleep apnea G47.33 Peripheral arterial disease I73.9 Coronary artery disease involving circle coronary artery of circle heart without angina pectoris I25.10 Associated angina: without angina Coronary Disease-Associated Artery/Lesion type: circle artery [place] vs. transplanted heart: circle heart Marijuana dependence F12.20 HTN (hypertension) I10 Seizure disorder G40.909 Additional Codes Critical Care Time - Critical Care Time: Yes ([id number]) (5) CAD (coronary artery disease) Associated angina: without angina Coronary Disease-Associated Artery/Lesion type: circle artery [place] vs. transplanted heart: circle heart Qualified Code(s): I25.10 - Atherosclerotic heart disease of circle coronary artery without angina pectoris
[2023-09-27 13:08] LABS: Magnesium 1.8 mg/dl (1.7-2.4)
[2023-09-27] MEDS: FAMOTIDINE 20MG IV PUSH 20 MG/5 ML SYR IV STA (13:50)
[2023-09-27] MEDS: PANTOprazole 40 MG in SYRINGE 0 ML IV ONE (13:51)
[2023-09-27] MEDS: diazePAM 5 MG/ML 10ML VIAL IV STA (13:51)
--- NOTE | 2023-09-27 18:16 | Magnetic Resonance Report ---
MRI OF THE BRAIN WITHOUT IV CONTRAST CLINICAL HISTORY: Strokelike symptoms. Dizziness and vertigo. Hypertension. COMPARISON STUDY: CT of the brain dated 03/27/2024. MRI of the brain dated 12/12/2020. TECHNIQUE: MRI of the brain was performed utilizing various T1 and T2-weighted sequences in the axial , sagittal, and coronal planes. IV contrast was not administered for this examination. The examinatio n is degraded by motion artifact. FINDINGS: Brain parenchyma: There is involutional change noting moderate subcortical and periventricular microa ngiopathic disease. There is significant FLAIR signal abnormalities seen within the cerebellum with a pparent tiny foci of restricted diffusion. There is also significant FLAIR signal within the posterio r prior occipital cortex, best on the coronal FLAIR sequences. No additional foci of restricted diffu nancy are identified. There is no hemorrhage or mass effect. No extra-axial fluid collection is seen. A small chronic lacunar infarct is seen in the left cerebellar hemisphere. The cerebellar tonsils are normal in configuration. Ventricles, sulci, and cisterns: Prominent secondary to involutional change. Pituitary and sella: Unremarkable. Intracranial vasculature: Normal flow voids are maintained at the skull base. Orbits: The bony orbits are grossly intact. Orbital contents are normal in appearance noting bilatera l ocular lens implants. Sinuses and mastoids: Clear. Calvarium: Unremarkable. Cervical cord: Partially visualized cervical spinal cord is normal in morphology and signal intensity . IMPRESSION: 1. There is significant T2/FLAIR signal abnormality seen within the posterior parieto-occipital shannan x as well as within both cerebellar hemispheres. Given the distribution and history of hypertension t he appearance strongly favors PRES (posterior reversible encephalopathy syndrome). A nonspecific cere britis could appear similar. Clinical correlation will be essential. 2. There are tiny foci of apparent restricted diffusion seen in both cerebellar hemispheres, which co uld not be corroborated on the ADC map. This may represent T2 shine through in the setting of PRES. S mall lacunar infarcts are not entirely excluded. 3. No additional foci of restricted diffusion are identified. 4. There is no hemorrhage or mass effect. ACT 112: Negative or not required by law. Electronically signed by: Armin Sylvester M.D. 09/27/2023 6:14 PM
[2023-09-27] MEDS ORDERED: STAT IV Infusion **Titration per Protocol STA ×2 (18:50→22:31)
[2023-09-27] MEDS: LABETALOL HCL IV 5 MG/ML 20ML IV PRN (18:51)
[2023-09-27] MEDS: LACTATED RINGER'S 1,000 ML IV SCH (19:18)
[2023-09-27] MEDS: niCARdipine 25 MG in SODIUM CHLORIDE 0.9% 240 ML IV SCH (19:19)
[2023-09-27] MEDS: MAGNESIUM SULFATE / D5W 1 GM/100 ML BAG IV SCH (19:22)
[2023-09-27] MEDS: ONDANSETRON INJ 2 MG/ML 2 ML VIAL IV PRN (21:29)
[2023-09-27] MEDS ORDERED: LABETALOL HCL IV 5 MG/ML 20ML IV PRN ×2 (21:36→22:14)
[2023-09-27] MEDS: ACETAMINOPHEN 1,000 MG/100 ML VIAL IV PRN (21:41)
[2023-09-27] MEDS ORDERED: niCARdipine 25 MG in SODIUM CHLORIDE 0.9% 240 ML IV SCH (22:45)
--- NOTE | 2023-09-27 23:29 | Critical Care Consultation ---
Date of Consultation September 27, 2023 Assessment & Plan (1) Posterior reversible encephalopathy syndrome (PRES): Reason Critically Ill: 58-year-old female with recent cerebellar CVA in 2022, history of marijuana abuse, history of press syndrome and hypertensive urgency, presents to the ICU with hypertensive urgency and MRI evidence of press syndrome. Patient currently experiencing nausea and vomiting, unable to keep p.o. meds down and requiring nicardipine drip. Neuro - Press syndromeevidence as noted on MRI. Currently treating underlying hypertensive urgency. See below -Symptom management for now Cardiac - CADmild to moderate on cath from 2016. Continue Plavix when able to take p.o. -Follow-up lipid panel in a.m. PADstatus post aortobifemoral bypass and femoralfemoral bypass. Restart Plavix and Eliquis when able to take p.o. meds Hypertensive urgencypatient unable to take p.o. meds due to vomiting. Has required IV labetalol but now requiring nicardipine drip -Goal SBP 180 for now as initial blood pressure was 240 on admission -F/ catecholamine fractured plasma, metanephrines fractured plasma -Restart p.o. medications when able Respiratory - No history of pulmonary disease. Continuous monitoring pulse ox GI - Nausea/vomitingcannabis use versus vertigo from previous cerebellar stroke? -Encourage abstinence from future marijuana use -N.p.o. for now. Continue with IV fluids - Zofran as needed. GERDPPI RENAL/LYTES - Creatinine within normal limits. Monitor routine BMPs and replete electrolytes as indicated - Strict I's and O's ENDO - No history of diabetes or thyroid disease. ICU hyperglycemic protocol HEME - H&H stable, monitor routine CBC ID - No indication for infectious process at this time LINES/IV ACCESS - Peripheral IVs DVT PROPHYLAXIS - SCDs, restart apixaban when able to take p.o. Thank you for allowing us to participate in the care of this patient. Please refer to my attending physician's documentation for any further recommendations. (2) Hypertensive urgency, malignant: (3) Marijuana dependence: (4) Seizure disorder: (5) Peripheral arterial disease: (6) GERD (gastroesophageal reflux disease): (7) CAD (coronary artery disease): (8) Hyperlipidemia: (9) Anxiety disorder: History of Present Illness Attending Physician: Franck Peerira MD History of Present Illness Patient is a 58-year-old female with past medical history significant for cerebellar stroke in November 2022, hypertension, PAD, GERD, CAD, HLD, anxiety disorder, who presented to the emergency department earlier today with multiple complaints of headache, chest pain, abdominal pain, nausea and vomiting which had started around 2 AM. Prior to this she was in her usual state of health. She had a episode of severe vertigo with associated nausea and vomiting which worsened with opening her eyes. She presented to the emergency department where she was found to be in hypertensive urgency. MRI consistent with press syndrome. Of note, patient has been treated for hypertensive urgency and press syndrome in 2020. She also admits to recently starting marijuana use again and has history of cannabinoid hyperemesis syndrome. She was initially admitted to PCU, but again became increasingly symptomatic with increased nausea vomiting and vertigo. Patient was started on nicardipine drip and transferred to ICU for further management. On arrival to the ICU the patient is alert and oriented without acute distress. She reports her headache has improved, but is still experiencing episodes of nausea with vomiting and dizziness. She denies recent illness or fevers, shortness of breath, cough or congestion, chest pain or palpitations, diarrhea, changes in gait, swelling in hands or feet. She did report an episode earlier today with visual changes in which her vision went dark, but has since resolved. She does report generalized abdominal tenderness as well. Allergies Allergy/AdvReac Type Severity Reaction Status Date / Time napoles Allergy Intermediate Hives Verified 09/27/23 09:36 (green/hartman beans) doxycycline Allergy Intermediate Hives, Verified 09/27/23 09:36 vomiting Iodinated Contrast Media Allergy Intermediate Large Verified 09/27/23 09:36 hives, vomiting, "feeling hot" iodine Allergy Intermediate Hives, Verified 09/27/23 09:36 vomiting latex Allergy Intermediate Rash Verified 09/27/23 09:36 loperamide Allergy Intermediate Hives, Verified 09/27/23 09:36 vomiting meperidine Allergy Intermediate Hives, Verified 09/27/23 09:36 vomiting strawberry Allergy Intermediate Hives Verified 09/27/23 09:36 tomato Allergy Intermediate Hives Verified 09/27/23 09:36 prochlorperazine Allergy Mild N/V, Verified 09/27/23 09:36 itchiness Home Medications Medication Instructions Recorded Confirmed Type multivitamin 0 tab PO QAM 12/16/18 09/27/23 History rosuvastatin 40 mg tablet (Crestor) 40 mg PO HS 09/11/21 09/27/23 History Auto Titrating CPAP #1 ea 07/15/22 07/08/23 Rx Medical Marijuana 0 dose PO DIRECTED PRN Pain 09/12/22 09/27/23 History pantoprazole 40 mg tablet,delayed 40 mg PO BID #180 tabs 12/06/22 09/27/23 Rx release carvedilol 25 mg tablet 25 mg PO BID #60 tabs 01/01/23 09/27/23 Rx ipratropium 20 mcg-albuterol 100 1 puff inhalation Q6H PRN SOB 01/01/23 09/27/23 History mcg/actuation mist for inhalation (Combivent Respimat) lorazepam 0.5 mg tablet 0.5 mg PO TID PRN vertigo #30 tabs 01/01/23 09/27/23 Rx losartan 50 mg tablet 50 mg PO DAILY #90 tabs 03/05/23 09/27/23 Rx levetiracetam 1,000 mg tablet 1,000 mg PO BID #180 tabs 04/08/23 09/27/23 Rx (Keppra) clopidogrel 75 mg tablet (Plavix) 75 mg PO HS #90 tabs 06/02/23 09/27/23 Rx ondansetron HCl 4 mg tablet 4 mg PO Q8H PRN nausea and 06/02/23 09/27/23 Rx vomiting #30 tabs amitriptyline 25 mg tablet 25 mg PO HS #90 tabs 06/10/23 09/27/23 Rx venlafaxine 150 mg 150 mg PO QAM #90 caps 06/16/23 09/27/23 Rx capsule,extended release 24 hr apixaban 5 mg tablet (Eliquis) 5 mg PO BID #60 tabs 06/23/23 09/27/23 Rx peg 3350-sod [id number] See Rx Instructions PO .COMPLEX #2 08/19/23 09/27/23 Rx 178.7-7.3-0.5-1.12-0.9 gram oral mL soln (Suflave) cholecalciferol (vitamin D3) 50 0 unit PO HS 09/27/23 09/27/23 History mcg (2,000 unit) tablet clonidine HCl 0.1 mg tablet 0 mg PO BID 09/27/23 09/27/23 History ferrous sulfate 325 mg (65 mg 0 mg PO BID 09/27/23 09/27/23 History iron) tablet folic acid 1 mg tablet 0 mg PO DAILY 09/27/23 09/27/23 History mecobalamin (vitamin B12) 1,000 0 mcg PO DAILY 09/27/23 09/27/23 History mcg chewable tablet sulfamethoxazole 800 1 tab PO DAILY 09/27/23 09/27/23 History mg-trimethoprim 160 mg tablet Patient History Medical History (Updated 09/28/23 @ 05:50 by DARREN Giang) Posterior reversible encephalopathy syndrome (PRES) Hypertensive urgency Elevated troponin Hypertensive emergency Hypokalemia Hypophosphatemia Tachycardia Postoperative nausea Seizures 2018 r/t hypertensive emergency > encephalopathy. last seizure 2019 Hematemesis History of COVID-19 03/18/22, pcr [facility], hospitalized day after diagnosis due to vomiting blood, discharged on 03/22/22; fever, vomiting, body chills and aches, diarrhea > resolved currently. 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 Maynard Cyclic vomiting syndrome no GI pathology on EGD, US, CT of abd/pelvis, celiac testing and GES per 04/2020 GI consult: biliary w/u and upper GI study recommended (upper GI study neg per d/c summary), cannabis cessation, continue Protonix and prn Zofran > currently controlled Obstructive sleep apnea mod-severe per PCP records (does not have device) GERD (gastroesophageal reflux disease) Renal artery stenosis following with Dr Maynard Seizure Proteinuria Cyclic vomiting syndrome Hypercalcemia HTN (hypertension) h/o multiple hypertensive urgency episodes, renal artery stenosis, following with cardiology and vascular surgery PRES (posterior reversible encephalopathy syndrome) has since caused seizures that started in 2018. following with PCP, last seizure per pt 08/2019 per PCP records Cannabinoid hyperemesis syndrome History of diverticulitis of colon Most recent 04/2022 Transient cerebrovascular ischemia Per records, pt unaware Anxiety disorder Cervical disc disorder Full ROM per pt Hyperlipidemia Multiple thyroid nodules Pulmonary emphysema well controlled per pt CAD (coronary artery disease) Mild-moderate non-obstructive CAD per 2017 cardiac cath Carotid stenosis < 50% stenosis B/L per US 12/16/18 Takotsubo cardiomyopathy 2017. Admitted [facility], full cardiac workup including cath. EF at the time 40%, now subsequent echos. Follows with Dr. Rodriguez NSTEMI (non-ST elevated myocardial infarction) 2017 Surgical History History of anesthesia reaction Low O2 sats during colonoscopy 04/2022 at [facility] and post-procedure elevated BP. Per post-op anesthesia progress note, O2 96-100% RA and "Pt has increased BP 2ndary to abdominal pain. Pt also has nausea w/ dry heaves. Pt to have CT scan per Dr Patten." History of tooth extraction History of cataract surgery bilat Status post surgery RLE thrombectomy S/P aortobifemoral bypass surgery Sep 2021 [facility] History of esophagogastroduodenoscopy (EGD) H/O cervical spine surgery ACDF C4-7 Dr. [place]: Grade 1 view, Bojorquez#2 and ETT#7.5 atraumatic x 1. No issues per anesthesia postop progress note. ROM WNL History of cardiac cath 2017 > no stents History of ovarian cystectomy History of hernia surgery right inguinal hernia repair History of hysterectomy Family History Father Family history of stomach cancer Malignant neoplasm of esophagus Stomach cancer Myocardial infarction Stroke Uncle Throat cancer Family history of cancer Grandmother (Maternal) Bone cancer Breast cancer Mother No problems noted. Brother Lung cancer Other Family history of diabetes mellitus No family history of adverse response to anesthesia No pertinent family history Denies family history of Colon cancer Ovarian cancer Prostate cancer Crohn's disease IBD (inflammatory bowel disease) Social History Smoking Status: Current every day smoker Tobacco Type: Cigarettes packs per day: 2; Second Hand Exposure: No; Do You Dip or Chew Tobacco: No; Tobacco Cessation Education Requested by Patient: No Hx Alcohol Use: No Hx Substance Use: Yes Last Used Substance: Just Prior to Arrival Last Used Substance Other:: PATIENT STATES THAT SHE USES MARIJUANA 3-4X YEAR FOR PAIN Substance Use Type Other:: medical card > flower Preferred Language: Slovak Communication Ability: Effective Visual Impairment: No Limitations Hearing Ability: Normal Verification Lead Required: No Beliefs That Will Affect Care: None marital status: Current Living Situation: Significant Other Current Living Situation Comment: [place] current occupational status: employed 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 Other Information That Helps Us Care for You: No Feels Safe at Home: Yes Safety Concerns: Feels Safe At This Time Childhood Exposure to Second-Hand Smoke: Yes Diet: regular Diet Comment: Regular caffeine: Yes (1 cup of coffee) during the past year weight has: other Dental Care, Regularly: No Physical Activity Frequency: Daily Physical Activity Frequency Comment: walking Seatbelt Use: always Sunscreen Use: Yes Assistive Devices: None Review of Systems Review of Systems: All systems reviewed & are unremarkable except as noted in HPI & below Physical Exam Constitutional: cooperative; no acute distress Eyes: PERRL, conjunctivae normal, anicteric sclerae ENMT: external ear and nose normal, oropharynx normal Neck: trachea midline, no thyromegaly Respiratory: normal respiratory effort, lungs clear to auscultation Cardiovascular: RRR, no murmur, no edema Heart Sounds: normal S1 and normal S2; no murmur Extremities: normal capillary refill Gastrointestinal (Abdomen): Abdomen soft and flat with generalized tenderness with palpation, bowel sounds normal, Musculoskeletal: no cyanosis or clubbing, extremities motor strength 5/5 Skin: no rashes, warm and dry Neurologic: PERRL, EOMI, accommodation nl, no face palsy, no dysarthria Psychiatric: A+Ox3, euthymic affect Results & Data Results & Data Vital Signs (Past 12 Hours) Vital Signs Temp Pulse Pulse Resp BP BP Pulse Ox 09/27/23 22:40 123 H 20 93 09/27/23 22:35 131 H 17 96 09/27/23 22:32 136/90 09/27/23 22:32 122 H 14 96 09/27/23 19:35 36.9 C 20 169/113 H 94 09/27/23 19:26 94 H 187/113 H 09/27/23 18:46 103 H 196/123 H 09/27/23 18:34 90 09/27/23 18:20 36.8 C 113 H 18 171/123 H 98 09/27/23 18:20 09/27/23 18:17 89 18 169/116 H 97 09/27/23 17:00 104 H 14 182/136 H 99 09/27/23 16:50 113 H 13 197/131 H 98 09/27/23 16:30 94 H 16 180/109 H 97 09/27/23 16:26 91 H 12 174/126 H 98 09/27/23 16:10 105 H 13 142/104 H 98 09/27/23 16:00 106 H 24 160/84 H 99 09/27/23 15:30 20 187/154 H 98 09/27/23 15:15 101 H 18 205/123 H 99 09/27/23 14:30 95 H 13 208/137 H 98 09/27/23 14:15 97 H 20 206/129 H 98 09/27/23 14:00 94 H 18 205/140 H 97 09/27/23 13:56 93 H 16 213/136 H 94 09/27/23 13:30 88 27 H 191/137 H 91 09/27/23 13:00 98 H 16 188/106 H 96 09/27/23 12:30 98 H 18 184/115 H 94 09/27/23 12:29 98 H 17 184/115 H 96 09/27/23 12:00 96 H 14 190/126 H 94 09/27/23 11:45 97 H 14 194/127 H 95 09/27/23 11:30 98 H 13 207/135 H 94 Pulse Ox O2 Del Method O2 Del Method O2 Flow Rate 09/27/23 22:40 09/27/23 22:35 09/27/23 22:32 09/27/23 22:32 09/27/23 19:35 Room Air 09/27/23 19:26 09/27/23 18:46 09/27/23 18:34 09/27/23 18:20 Room Air 09/27/23 18:20 98 Room Air 09/27/23 18:17 Nasal Cannula 2 09/27/23 17:00 Nasal Cannula 2 09/27/23 16:50 Nasal Cannula 2 09/27/23 16:30 Nasal Cannula 2 09/27/23 16:26 Nasal Cannula 2 09/27/23 16:10 Room Air 09/27/23 16:00 Room Air 09/27/23 15:30 Room Air 09/27/23 15:15 09/27/23 14:30 09/27/23 14:15 09/27/23 14:00 09/27/23 13:56 09/27/23 13:30 09/27/23 13:00 09/27/23 12:30 09/27/23 12:29 Room Air 09/27/23 12:00 Room Air 09/27/23 11:45 Room Air 09/27/23 11:[address] ANGIOGRAM OF THE CHEST COMBO; CT ANGIOGRAM OF THE ABDOMEN AND PELVIS CLINICAL HISTORY: Atypical chest pain. Generalized abdominal pain. COMPARISON STUDY: Chest x-ray dated 09/27/2023. Chest CT dated 08/28/2017. Abdominal CT dated 06/17/2023. TECHNIQUE: Unenhanced CT scan of the chest was performed. Subsequently, following the IV administration of 115 cc of Optiray 320, CT angiogram of the chest, abdomen, and pelvis was performed from the thoracic inlet to the proximal femora. Images are reviewed in the axial, sagittal, and coronal planes. 3-D MIPS images are created and assessed. IV contrast was administered without complication. A dose lowering technique was utilized adhering to the principles of ALARA. The examinations are degraded by motion artifact, as well as by streak artifact from the right arm which could not be elevated above the chest or abdomen. CT DOSE: 2375.69 mGy.cm FINDINGS: CHEST: Thyroid: Imaged portions of the thyroid gland are normal in size and attenuation. Thoracic aorta: No intramural hematoma is seen on the unenhanced series. There is moderate atherosclerotic calcification of the thoracic aorta, which is normal in caliber and demonstrates standard 3-vessel anatomy. No dissection is seen. The arch vessels are widely patent. Pulmonary vasculature: The pulmonary trunk is normal in caliber. There are no filling defects identified in the central pulmonary vessels to indicate pulmonary embolus. Note that this examination was not protocoled for evaluation of the pulmonary arteries. Heart: The heart is top normal in size and without pericardial effusion. There are coronary artery calcifications. Lungs and pleural spaces: Emphysematous change is noted. The trachea and central airways are clear. No airspace consolidation or pleural effusion is identified. Dependent atelectasis is seen bilaterally. Mediastinum: There is no mediastinal lymphadenopathy. Simin: Clear. Axillae: There is no axillary lymphadenopathy. Bony thorax: The skeletal structures are osteopenic. Degenerative change is noted in the thoracic spine. Fusion hardware is seen in the lower cervical spine. No destructive bony lesions are identified. There are chronic/healed right-sided rib fractures. ABDOMEN AND PELVIS: Liver: The contrast-enhanced liver is enlarged, measuring 22 cm in length. The liver demonstrates diffusely diminished attenuation indicating steatosis. Fatty sparing is seen adjacent to the gallbladder fossa. There is no intrahepatic biliary ductal dilatation. A subcentimeter hypervascular focus in the right lobe on image #140 likely represents a flash filling hemangioma versus shunt vascularity. The main portal veins appear patent. Gallbladder: Unremarkable. Spleen: Normal in size and attenuation noting heterogeneous arterial phase enhancement. Pancreas: Unremarkable. Adrenal glands: Unremarkable. Kidneys: The contrast enhanced kidneys are normal in size and without hydronephrosis. The kidneys enhance symmetrically. Abdominal aorta and iliac arteries: There is moderate arthrosis chronic calcification of the abdominal aorta which is normal in caliber. The abdominal aorta is patent with no dissection seen. There is postsurgical change from aortobiiliac bypass grafting. The left iliac graft is thrombosed, and a femorofemoral bypass is patent. The grayling common iliac arteries are diminutive but patent noting advanced atherosclerotic plaque and irregularity. The grayling internal iliac arteries are patent bilaterally. There is at least moderate stenosis at the origin of both internal iliac arteries. The grayling external iliac arteries are occluded bilaterally. Imaged portions of the proximal superficial femoral arteries are patent bilaterally. Fluid is again seen around the femorofemoral bypass. The largest pockets the fluid are seen around the anastomoses in the bilateral groin. The pocket on the right measures 3.2 x 3.6 cm and the pocket on the left measures 4.2 x 5.6 cm. Major branches of the abdominal aorta: The celiac trunk, superior mesenteric, and inferior mesenteric arteries are patent. There is mild ectasia of the celiac trunk which measures up to 8 mm. Hepatic arterial anatomy is conventional. The splenic artery is patent. Single bilateral renal arteries are patent. Stomach and bowel: There is a small hiatal hernia. There is rectosigmoid fecal retention and mild constipation. No bowel obstruction is seen. There is moderate to advanced colonic diverticulosis without CT evidence of acute diverticulitis. The appendix is well-visualized and normal. Peritoneum: There is no intraperitoneal free air or abdominal ascites. There are fat-containing umbilical and supraumbilical hernias. A midline surgical scar is noted. Lymphadenopathy: None. Pelvic viscera: The bladder is normal as visualized. The uterus is surgically absent. No adnexal lesion is seen. Skeletal structures: The skeletal structures are osteopenic. There is moderate lumbosacral spondylosis. No destructive bony lesions are seen. IMPRESSION: 1. Unremarkable CT angiogram of the thoracic aorta. 2. Emphysema. 3. There is no airspace consolidation or pleural effusion. 4. The patient is status post aortobiiliac bypass as well as femorofemoral bypass as above. The femorofemoral bypass is patent. 5. The major branches of the abdominal aorta are patent. 6. A nonspecific fluid collection is again seen around the femorofemoral bypass graft as detailed above. This is not significantly changed as compared to 06/17/2023 and clinical correlation will be required. 7. Hepatomegaly and hepatic steatosis. 8. Colonic diverticulosis without CT evidence of acute diverticulitis. 9. Rectosigmoid fecal retention. 10. Additional findings as above. ACT 112: Negative or not required by law. Electronically signed by: Armin Sylvester M.D. 09/27/2023 9:[address] SCAN OF THE BRAIN WITHOUT IV CONTRAST CLINICAL HISTORY: Headache. Hypertension. COMPARISON STUDY: CT of the brain dated 11/16/2022. TECHNIQUE: Unenhanced axial CT scan of the brain is performed from the vertex to the skull base. A dose lowering technique was utilized adhering to the principles of ALARA. CT DOSE: 657.02 mGy.cm FINDINGS: Brain parenchyma: There is age-related involutional change noting moderate subcortical and periventricular microangiopathic disease. There is residual IV contrast within the intracranial vessels and sinuses. This degrades assessment for hemorrhage. There is no evidence of hemorrhage or mass effect. There is no e vidence of acute territorial ischemia by CT criteria. Chance-white matter differentiation is preserved. No extra-axial fluid collection is seen. Ventricles, sulci, cisterns: Prominent secondary to involutional change. Intracranial vasculature: There is atherosclerotic calcification of the cavernous carotid arteries. Calvarium: Unremarkable. Sinuses and mastoids: The visualized paranasal sinuses are clear. The mastoid air cells are well pneumatized. Orbits: The bony orbits are grossly intact. There are bilateral ocular lens implants. IMPRESSION: There is no evidence of hemorrhage, mass effect, or acute territorial ischemia by CT criteria. ACT 112: Negative or not required by law. Electronically signed by: Armin Sylvester M.D. 09/27/2023 11:44 AM MRI OF THE BRAIN WITHOUT IV CONTRAST CLINICAL HISTORY: Strokelike symptoms. Dizziness and vertigo. Hypertension. COMPARISON STUDY: CT of the brain dated 03/27/2024. MRI of the brain dated 12/12/2020. TECHNIQUE: MRI of the brain was performed utilizing various T1 and T2-weighted sequences in the axial, sagittal, and coronal planes. IV contrast was not administered for this examination. The examination is degraded by motion artifa ct. FINDINGS: Brain parenchyma: There is involutional change noting moderate subcortical and periventricular microangiopathic disease. There is significant FLAIR signal abnormalities seen within the cerebellum with apparent tiny foci of restricted diffusion. There is also significant FLAIR signal within the posterior prior occipital cortex, best on the coronal FLAIR sequences. No additional foci of restricted diffusion are identified. There is no hemorrhage or mass effect. No extra-axial fluid collection is seen. A small chronic lacunar infarct is seen in the left cerebellar hemisphere. The cerebellar tonsils are normal in configuration. Ventricles, sulci, and cisterns: Prominent secondary to involutional change. Pituitary and sella: Unremarkable. Intracranial vasculature: Normal flow voids are maintained at the skull base. Orbits: The bony orbits are grossly intact. Orbital contents are normal in appearance noting bilateral ocular lens implants. Sinuses and mastoids: Clear. Calvarium: Unremarkable. Cervical cord: Partially visualized cervical spinal cord is normal in morphology and signal intensity. IMPRESSION: 1. There is significant T2/FLAIR signal abnormality seen within the posterior parieto-occipital cortex as well as within both cerebellar hemispheres. Given the distribution and history of hypertension the appearance strongly favors PRES (posterior reversible encephalopathy syndrome). A nonspecific cerebritis could appear similar. Clinical correlation will be essential. 2. There are tiny foci of apparent restricted diffusion seen in both cerebellar hemispheres, which could not be corroborated on the ADC map. This may represent T2 shine through in the setting of PRES. Small lacunar infarcts are not entirely excluded. 3. No additional foci of restricted diffusion are identified. 4. There is no hemorrhage or mass effect. Coding Level of Care Code 69540 IN/OBS CONSULT LVL 3,45M Diagnoses Posterior reversible encephalopathy syndrome (PRES) I67.83 Hypertensive urgency, malignant I16.0 Marijuana dependence F12.20 Seizure disorder G40.909 Peripheral arterial disease I73.9 GERD (gastroesophageal reflux disease) K21.9 Coronary artery disease involving grayling coronary artery of grayling heart without angina pectoris I25.10 Coronary Disease-Associated Artery/Lesion type: [place] artery [place] vs. transplanted heart: [place] heart Associated angina: without angina Hyperlipidemia, unspecified hyperlipidemia type E78.5 Hyperlipidemia type: unspecified Anxiety disorder F41.9 Time Spent (min) 50 (7) CAD (coronary artery disease) Coronary Disease-Associated Artery/Lesion type: [place] artery [place] vs. transplanted heart: [place] heart Associated angina: without angina Qualified Code(s): I25.10 - Atherosclerotic heart disease of gray[place] coronary artery without angina pectoris (8) Hyperlipidemia Hyperlipidemia type: unspecified Qualified Code(s): E78.5 - Hyperlipidemia, unspecified
[2023-09-28] MEDS: PROMETHAZINE HCL 12.5 MG in SODIUM CHLORIDE 0.9% 50 ML IV STA
[2023-09-28] MEDS: levETIRAcetam IV 1,000 MG in 0.9 % SODIUM CHLORIDE 100 ML IV SCH
[2023-09-28] MEDS: PANTOprazole 40 MG in SYRINGE 0 ML IV SCH
[2023-09-28 04:40] LABS: Basophils # (auto) 0.06 K/uL (0.00-0.20); Basophils % (auto) 0.4 %; Eosinophils # (auto) 0.03 K/uL (0.00-0.50); Eosinophils % (auto) 0.2 %; Hematocrit (blood only) 45.1 % (37.0-47.0); Hemoglobin 15.3 g/dl (12.0-16.0); Immature Granulocytes % (auto) 0.6 %; Lymphocytes # (auto) 2.34 K/uL (1.20-3.40); Lymphocytes % (auto) 14.2 %; Mean Corpuscular Hemoglobin 30.7 pg (25.0-34.0); Mean Corpuscular Hgb Conc 33.9 g/dL (32.0-36.0); Mean Corpuscular Volume 90.4 fL (80.0-100.0); Mean Platelet Volume 9.6 fL (9.4-12.4); Monocytes # (auto) 1.58 K/uL (0.11-0.59); Monocytes % (auto) 9.6 %; Neutrophils # (auto) 12.35 K/uL (1.40-6.50); Platelet Count 357 K/uL (130-400); RDW Coefficient of Variation 12.4 % (11.5-14.5); RDW Standard Deviation 40.2 fL (36.4-46.3); Red Blood Count 4.99 M/uL (4.20-5.40); White Blood Count 16.46 K/ul (4.8-10.8)
[2023-09-28 04:56] LABS: Albumin Globulin Ratio 1.4 (0.9-2); Albumin Level 4.5 gm/dl (3.4-5.0); BUN Creatinine Ratio 20.8 (10-20); Bilirubin,Total 0.4 mg/dl (0.2-1.0); Calcium 9.3 mg/dl (8.6-10.3); Chol HDL Ratio 3.6 (0-5); Creatinine Clr Calc Pharmacy 83.1 ml/min; Est GFR (African American) 99.3 ml/min; Est GFR (Non-African American) 85.7 ml/min; Globulin 3.3 gm/dl (2.5-4.0); Magnesium 2.3 mg/dl (1.7-2.4); Phosphorus 2.8 mg/dl (2.5-4.9); Potassium 3.4 mmol/L (3.5-5.1); Total Protein 7.8 gm/dl (6.0-8.3); Uric Acid 6.2 mg/dl (2.6-7.2)
[2023-09-28 05:02] LABS: Troponin I High Sensitivity 2022.9 pg/ml (0-14)
[2023-09-28 05:14] LABS: Amphetamines+Metham, Urine Neg (Neg); Barbiturates, Urine Neg (Neg); Benzodiazepine, Urine Neg (Neg); Cocaine, Urine Neg (Neg); MDMA (Ecstacy), Urine Neg (Neg); Marijuana, Urine Pos (Neg); Methadone, Urine Neg (Neg); Opiate, Urine Neg (Neg); Phencyclidine, Urine Neg (Neg)
[2023-09-28] MEDS ORDERED: Heparin IV Adult Wt-Based Standard *NO* INITIAL Bolus Protocol IV SCH (06:25)
[2023-09-28] MEDS: HEPARIN SODIUM/DEXTROSE 25,000 UNITS/500 ML BAG IV SCH (07:21)
[2023-09-28] MEDS: POTASSIUM CHLORIDE / WTR 10 MEQ/100 ML PLCT IV SCH (07:22)
--- NOTE | 2023-09-28 07:28 | Critical Care Progress Note ---
Date of Service September 28, 2023 Assessment & Plan (1) Posterior reversible encephalopathy syndrome (PRES): Plan: Reason Critically Ill: 58-year-old female with recent cerebellar CVA in 2022, history of marijuana abuse, history of press syndrome and hypertensive urgency, presents to the ICU with hypertensive urgency and MRI evidence of press syndrome. Patient currently experiencing nausea and vomiting, unable to keep p.o. meds down and requiring nicardipine drip. Neuro - Press syndromeevidence as noted on MRI. Evidence of similar previously -Symptom management for now Cardiac - CADmild to moderate on cath from 2017. Continue Plavix when able to take p.o. -Lipid panel reviewed: Not at goal per guidelines Elevated troponin: -Most consistent with type II ischemia in the setting of significant hypertension -Echocardiogram with bubble study given MRI findings -Already anticoagulated with apixaban, strongly doubt this represents acute thrombotic infarct -History takosubo cardiomyopathy in 2017 PADstatus post aortobifemoral bypass and femoralfemoral bypass. Restart Plavix and Eliquis when able to take p.o. meds Hypertensive urgency: Improved - patient unable to take p.o. meds due to vomiting - Restart p.o. medications when able -Patient has significant antihypertensive regimen, I will defer hypertensive workup to primary care, patient already on losartan without impacted renal function -History renal artery stenosis noted on cardiology report 12/03/2022 -Patient has been off intravenous antihypertensives for greater than 12 hours Respiratory - No history of pulmonary disease. Continuous monitoring pulse ox History of heavy tobacco use 2 packs a day for 20 years discontinuing approximately 12 years ago History obstructive sleep apnea -2022 records indicates she has not used CPAP since it being recalled in 2020 GI - Nausea/vomitingcannabinoid hyperemesis syndrome versus central oriented nausea and vomiting from prior stroke (much less likely) -Encourage abstinence from future marijuana use -Advance diet as tolerated - Zofran as needed. Marijuana user -UDS positive for marijuana -Medical marijuana noted in home medication reconciliation GERDPPI RENAL/LYTES - Creatinine within normal limits. - Strict I's and O's ENDO - No history of diabetes or thyroid disease. ICU hyperglycemic protocol HEME - H&H stable, monitor routine CBC ID - No indication for infectious process at this time LINES/IV ACCESS - Peripheral IVs DVT PROPHYLAXIS - SCDs, restart apixaban Dispo: Stable for downgrade out of ICU (2) Hypertensive urgency, malignant: (3) Marijuana dependence: (4) Seizure disorder: (5) Peripheral arterial disease: (6) GERD (gastroesophageal reflux disease): (7) CAD (coronary artery disease): (8) Hyperlipidemia: (9) Anxiety disorder: Admission and Anticipated Discharge Date Admission Date: September 27, 2023 Subjective Feels much improved. Requesting water. Denies chest pain Physical Exam Physical Exam: General: Alert. nontoxic. Skin: Warm, dry, Head: Atraumatic Ears, nose, mouth and throat: airway patent Cardiovascular: Normal peripheral perfusion Respiratory: no respiratory distress Gastrointestinal: Non distended Musculoskeletal: No deformity Results & Data Results & Data Vital Signs (Past 12 Hours) Vital Signs Temp Pulse Resp BP BP Pulse Ox O2 Del Method 09/28/23 06:45 98 H 19 92 09/28/23 06:30 107 H 21 93 09/28/23 06:30 130/93 09/28/23 06:15 129/96 09/28/23 06:15 100 H 19 92 09/28/23 06:00 155/104 H 09/28/23 06:00 96 H 19 92 09/28/23 05:45 143/110 H 09/28/23 05:45 106 H 19 92 09/28/23 05:30 156/107 H 09/28/23 05:30 102 H 18 91 09/28/23 05:16 106 H 19 90 09/28/23 05:16 145/102 H 09/28/23 05:15 105 H 19 88 L 09/28/23 05:13 107 H 20 90 09/28/23 05:13 142/101 H 09/28/23 05:01 143/104 H 09/28/23 05:01 105 H 20 90 09/28/23 05:00 105 H 21 91 09/28/23 04:46 102 H 21 91 09/28/23 04:45 102 H 23 91 09/28/23 04:30 131/94 09/28/23 04:30 100 H 18 93 09/28/23 04:15 158/103 H 09/28/23 04:15 105 H 15 93 09/28/23 04:00 157/111 H 09/28/23 04:00 108 H 19 91 09/28/23 03:45 107 H 20 93 09/28/23 03:30 148/103 H 09/28/23 03:30 109 H 18 92 02 03:15 148/105 H 09/28/23 03:15 109 H 19 93 02 03:00 163/108 H 09/28/23 03:00 110 H 14 94 09/28/23 02:45 178/120 H 09/28/23 02:45 100 H 10 L 93 09/28/23 02:30 176/117 H 09/28/23 02:30 106 H 17 94 09/28/23 02:15 104 H 17 92 09/28/23 02:00 102 H 18 93 09/28/23 01:45 106 H 14 93 09/28/23 01:38 112 H 20 94 09/28/23 01:30 113 H 23 95 09/28/23 01:15 125 H 18 95 09/28/23 01:00 146/107 H 09/28/23 01:00 117 H 18 94 09/28/23 00:45 151/104 H 09/28/23 00:45 113 H 20 94 09/28/23 00:30 116 H 20 93 09/28/23 00:30 158/109 H 09/28/23 00:15 115 H 21 93 09/28/23 00:15 155/104 H 09/28/23 00:00 127 H 09/28/23 00:00 117 H 16 93 09/28/23 00:00 142/105 H 09/27/23 23:45 116 H 19 91 09/27/23 23:45 162/109 H 09/27/23 23:45 162/109 H 09/27/23 23:30 149/102 H 09/27/23 23:30 114 H 19 92 09/27/23 23:15 173/105 H 09/27/23 23:15 115 H 14 95 09/27/23 23:00 159/98 H 09/27/23 23:00 116 H 22 93 0224 22:48 117 H 23 94 09/27/23 22:48 151/99 H 24 22:45 120 H 23 95 0224 22:40 123 H 20 93 09/27/23 22:35 131 H 17 96 09/27/23 22:32 136/90 09/27/23 22:32 122 H 14 96 09/27/23 19:35 36.9 C 20 169/113 H 94 Room Air 09/27/23 19:26 94 H 187/113 H Coding Level of Care Code 07591 SUB INP/OBS CARE 3/50MIN Diagnoses Posterior reversible encephalopathy syndrome (PRES) I67.83 Hypertensive urgency, malignant I16.0 Marijuana dependence F12.20 Seizure disorder G40.909 Peripheral arterial disease I73.9 GERD (gastroesophageal reflux disease) K21.9 Coronary artery disease involving [place] coronary artery of [place] heart without angina pectoris I25.10 Associated angina: without angina Coronary Disease-Associated Artery/Lesion type: [place] artery [place] vs. transplanted heart: [place] heart Hyperlipidemia, unspecified hyperlipidemia type E78.5 Hyperlipidemia type: unspecified Anxiety disorder F41.9 (7) CAD (coronary artery disease) Associated angina: without angina Coronary Disease-Associated Artery/Lesion type: [place] artery [place] vs. transplanted heart: [place] heart Qualified Code(s): I25.10 - Atherosclerotic heart disease of [place] coronary artery without angina pectoris (8) Hyperlipidemia Hyperlipidemia type: unspecified Qualified Code(s): E78.5 - Hyperlipidemia, unspecified
[2023-09-28 07:58] LABS: ANTI-Xa, UFH(UnfractionatedHep 0.17 IU/ml (0.3-0.7); Partial Thromboplastin Ratio 0.9; Partial Thromboplastin Time 25 Seconds (21-31); Prothrombin Time 10.6 Seconds (9.0-12.0)
[2023-09-28] MEDS: CARBAMIDE PEROXIDE 6.5% 15 ML BTL OTB SCH (08:42)
[2023-09-28] MEDS: LOSARTAN POTASSIUM 50 MG TAB PO SCH (09:51)
[2023-09-28] MEDS: carvediloL 25 MG TAB PO SCH (09:51)
[2023-09-28] MEDS: APIXABAN 5 MG TABLET PO SCH (09:51)
[2023-09-28] MEDS: VENLAFAXINE HCL XR 150 MG CAPXR PO SCH (09:53)
[2023-09-28] MEDS: cloNIDine HCL 0.1 MG TAB PO SCH (10:27)
--- NOTE | 2023-09-28 10:50 | Hospitalist Progress Note ---
Date of Service September 28, 2023 Assessment & Plan (1) Posterior reversible encephalopathy syndrome (PRES): Plan: Presents to the hospital with vertigo, upper extremity weakness and found to have elevated blood pressure MRI brain was done which showed evidence of PRES Started on nicardipine IV drip and transferred to ICU Blood pressure is now under better control Resume her home oral medications Transfer out of ICU (2) Vertigo: Plan: Suspect recrudescence of her prior stroke with nystagmus on exam MRI does not suggest new CVA Ondansetron for nausea Diazepam 5mg IV given prior to MRI, will consider repeat doses if ondansetron not effective but essentially main treatment is for PRES (3) Obstructive sleep apnea: Plan: per PCP notes. Refuses CPAP and also not advised currently due to vomiting (4) Peripheral arterial disease: Plan: s/p aortobifemoral bypass 04/2021 with post procedure blood clot s/p femoral-femoral bypass surgery 09/2022 Restart clopidogrel and Eliquis when able to take PO meds Currently on suppressive Bactrim therapy as a precaution due to fluid collection (5) CAD (coronary artery disease): Plan: Mild-moderate on cardiac catheterization in 2017 - minimal troponin rise, will repeat in AM, patient currently without chest pain (6) Marijuana dependence: Plan: No history of cannabis hyperemesis per patient (7) HTN (hypertension): Plan: Home oral antihypertensive medications have been restarted Blood pressure currently 102/70 (8) Seizure disorder: Plan: Switch Keppra to IV if unable to take PO meds Plan VTE Prophyalxis - restart Eliquis when able to take PO meds Diet -resume diet Disposition - admit to PCU Admission and Anticipated Discharge Date Admission Date: September 27, 2023 Subjective Patient seen and examined, lying quietly in bed denies any weakness or numbness to hands denies chest pain or shortness of breath. Review of Systems Review of Systems: All systems reviewed are negative, apart from the ones contained in the history. Physical Exam Physical Exam: The patient is awake, alert and oriented 3, well developed and well nourished, normocephalic and atraumatic, lying in bed and in no acute distress. HEENT--PERRL, EOMI, mucous membranes and oropharynx mildly dry Neck--supple. No JVD. No bruits. Thyroid normal, trachea midline, no adenopathy. Heart--normal S1 and S2. No murmurs, rubs or gallops. Lungs--clear bilaterally, no respiratory distress, no accessory muscle use. Abdomen--normal bowel sounds and soft. Extremities--no cyanosis or clubbing. No edema. Dermatologic--normal skin turgor, normal color, no abnormal lymph nodes, no rash. Neurologic--cranial nerves II through XII grossly intact. Rheumatologic--normal range of motion. Psychiatric--normal affect. Results & Data Results & Data Vital Signs (Past 12 Hours) Vital Signs Temp Pulse Resp BP Pulse Ox 09/28/23 09:15 92 H 23 92 09/28/23 09:15 102/70 09/28/23 09:00 102 H 25 H 96 09/28/23 09:00 104/82 09/28/23 08:45 95 H 17 92 09/28/23 08:45 131/91 09/28/23 08:30 100 H 19 91 09/28/23 08:30 117/84 09/28/23 08:16 100 H 17 91 09/28/23 08:16 119/90 09/28/23 08:00 93 H 18 91 09/28/23 08:00 122/89 09/28/23 07:46 101 H 15 93 09/28/23 07:46 131/113 H 09/28/23 07:45 98.4 F 09/28/23 07:32 97 H 4 L 89 L 09/28/23 07:32 166/115 H 09/28/23 07:30 98 H 10 L 89 L 09/28/23 07:30 193/120 H 09/28/23 07:15 157/110 H 09/28/23 07:15 100 H 19 90 09/28/23 07:01 98 H 17 92 09/28/23 07:01 147/121 H 09/28/23 07:00 96 H 18 93 09/28/23 06:46 99 H 18 94 09/28/23 06:46 104/76 09/28/23 06:45 98 H 19 92 09/28/23 06:30 107 H 21 93 09/28/23 06:30 130/93 09/28/23 06:15 129/96 09/28/23 06:15 100 H 19 92 09/28/23 06:00 155/104 H 09/28/23 06:00 96 H 19 92 02 05:45 143/110 H 09/28/23 05:45 106 H 19 92 09/28/23 05:30 156/107 H 09/28/23 05:30 102 H 18 91 09/28/23 05:16 106 H 19 90 09/28/23 05:16 145/102 H 09/28/23 05:15 105 H 19 88 L 09/28/23 05:13 107 H 20 90 09/28/23 05:13 142/101 H 09/28/23 05:01 143/104 H 09/28/23 05:01 105 H 20 90 09/28/23 05:00 105 H 21 91 09/28/23 04:46 102 H 21 91 09/28/23 04:45 102 H 23 91 09/28/23 04:30 131/94 09/28/23 04:30 100 H 18 93 09/28/23 04:15 158/103 H 09/28/23 04:15 105 H 15 93 09/28/23 04:00 157/111 H 09/28/23 04:00 108 H 19 91 09/28/23 03:45 107 H 20 93 09/28/23 03:30 148/103 H 09/28/23 03:30 109 H 18 92 09/28/23 03:15 148/105 H 09/28/23 03:15 109 H 19 93 09/28/23 03:00 163/108 H 09/28/23 03:00 110 H 14 94 09/28/23 02:45 178/120 H 09/28/23 02:45 100 H 10 L 93 09/28/23 02:30 176/117 H 09/28/23 02:30 106 H 17 94 09/28/23 02:15 104 H 17 92 09/28/23 02:00 102 H 18 93 09/28/23 01:45 106 H 14 93 09/28/23 01:38 112 H 20 94 09/28/23 01:30 113 H 23 95 09/28/23 01:15 125 H 18 95 09/28/23 01:00 146/107 H 09/28/23 01:00 117 H 18 94 09/28/23 00:45 151/104 H 09/28/23 00:45 113 H 20 94 09/28/23 00:30 116 H 20 93 09/28/23 00:30 158/109 H 09/28/23 00:15 115 H 21 93 09/28/23 00:15 155/104 H 09/28/23 00:00 127 H 09/28/23 00:00 117 H 16 93 09/28/23 00:00 142/105 H 09/27/23 23:45 116 H 19 91 09/27/23 23:45 162/109 H 09/27/23 23:45 162/109 H 09/27/23 23:30 149/102 H 09/27/23 23:30 114 H 19 92 09/27/23 23:15 173/105 H 09/27/23 23:15 115 H 14 95 09/27/23 23:00 159/98 H 09/27/23 23:00 116 H 22 93 09/27/23 22:48 117 H 23 94 09/27/23 22:48 151/99 H PG Care Time/CCT Total # of Minutes Spent Total Time Spent with Patient: Total time spent is greater than 50% in coordination of care (as documented) at patient's floor/unit and/or counseling patient: Coding Level of Care Code 24917 SUB INP/OBS CARE 235MIN Diagnoses Posterior reversible encephalopathy syndrome (PRES) I67.83 Vertigo R42 Obstructive sleep apnea G47.33 Peripheral arterial disease I73.9 Coronary artery disease involving [place] coronary artery of [place] heart without angina pectoris I25.10 Coronary Disease-Associated Artery/Lesion type: [place] artery [place] vs. transplanted heart: [place] heart Associated angina: without angina Marijuana dependence F12.20 HTN (hypertension) I10 Seizure disorder G40.909 Time Spent (min) 35 (5) CAD (coronary artery disease) Coronary Disease-Associated Artery/Lesion type: [place] artery [place] vs. transplanted heart: [place] heart Associated angina: without angina Qualified Code(s): I25.10 - Atherosclerotic heart disease of [place] coronary artery without angina pectoris
--- NOTE | 2023-09-28 13:40 | Electrocardiogram Report ---
Test Reason : Blood Pressure : / mmHG Vent. Rate : 115 BPM Atrial Rate : 115 BPM P-R Int : 178 ms QRS Dur : 086 ms QT Int : 336 ms P-R-T Axes : 054 -28 028 degrees QTc Int : 464 ms Poor data quality, interpretation may be adversely affected Sinus tachycardia Possible Left atrial enlargement Borderline ECG When compared with ECG of 27-SEP-2023 06:01, Premature ventricular complexes are no longer Present [place] interval has decreased Confirmed by Boo Vega ([id number]) on 09/28/2023 1:40:22 PM Referred By: REFERRED SELF Confirmed By:Boo Vega
--- NOTE | 2023-09-28 13:42 | Electrocardiogram Report ---
Test Reason : Blood Pressure : / mmHG Vent. Rate : 100 BPM Atrial Rate : 100 BPM P-R Int : 202 ms QRS Dur : 086 ms QT Int : 366 ms P-R-T Axes : 060 -57 -09 degrees QTc Int : 472 ms Normal sinus rhythm Possible Left atrial enlargement Left axis deviation Inferior infarct , age undetermined Abnormal ECG When compared with ECG of 27-SEP-2023 21:24, (unconfirmed) Inferior infarct is now Present Inverted T waves have replaced nonspecific T wave abnormality in Inferior leads Confirmed by Boo Vega ([id number]) on 09/28/2023 1:42:33 PM Referred By: REFERRED SELF Confirmed By:Boo Vega
--- NOTE | 2023-09-28 13:50 | Electrocardiogram Report ---
Test Reason : Blood Pressure : / mmHG Vent. Rate : 083 BPM Atrial Rate : 083 BPM P-R Int : 202 ms QRS Dur : 080 ms QT Int : 414 ms P-R-T Axes : 052 -40 012 degrees QTc Int : 486 ms Sinus rhythm with sinus arrhythmia with Premature ventricular complexes Left axis deviation Prolonged QT Abnormal ECG When compared with ECG of 28-SEP-2023 05:54, (unconfirmed) Premature ventricular complexes are now Present Criteria for Inferior infarct are no longer Present Nonspecific T wave abnormality no longer evident in Anterior leads Confirmed by Boo Vega ([id number]) on 09/28/2023 1:49:59 PM Referred By: REFERRED SELF Confirmed By:Boo Vega
--- NOTE | 2023-09-28 14:04 | XCELERA ---
[id number] \\[email or web address]\[id number]
[2023-09-28] MEDS: ACETAMINOPHEN 325 MG TAB PO PRN (20:04)
[2023-09-28] MEDS: AMITRIPTYLINE HCL 25 MG TAB PO SCH (20:05)
[2023-09-28] MEDS: CHOLECALCIFEROL 25 MCG (1000 UNITS) TAB PO SCH (20:07)
[2023-09-28] MEDS: FERROUS SULFATE 325 MG TAB PO SCH (20:08)
[2023-09-28] MEDS: levETIRAcetam 500 MG TAB PO SCH (20:08)
[2023-09-28] MEDS: CLOPIDOGREL BISULFATE 75 MG TAB PO SCH (20:08)
[2023-09-28] MEDS: PANTOprazole 40 MG TAB PO SCH (20:09)
[2023-09-28] MEDS: ROSUVASTATIN CALCIUM 20 MG TAB PO SCH (20:09)
[2023-09-29 07:12] LABS: Hematocrit (blood only) 43.4 % (37.0-47.0); Hemoglobin 14.4 g/dl (12.0-16.0); Mean Corpuscular Hgb Conc 33.2 g/dL (32.0-36.0); Mean Corpuscular Volume 93.3 fL (80.0-100.0); Mean Platelet Volume 9.6 fL (9.4-12.4); Platelet Count 271 K/uL (130-400); RDW Coefficient of Variation 12.5 % (11.5-14.5); RDW Standard Deviation 42.5 fL (36.4-46.3); Red Blood Count 4.65 M/uL (4.20-5.40); White Blood Count 8.38 K/ul (4.8-10.8)
[2023-09-29 07:31] LABS: BUN Creatinine Ratio 27.8 (10-20); Creatinine Clr Calc Pharmacy 71.5 ml/min; Est GFR (African American) 82.3 ml/min; Potassium 3.8 mmol/L (3.5-5.1)
[2023-09-29 07:41] VITALS: RESP 18; TEMP 99.1; O2SAT 92
[2023-09-29 09:45] VITALS: BP 113/83
[2023-09-29] MEDS: CYANOCOBALAMIN (B-12) 500 MCG TABLET PO SCH (09:46)
[2023-09-29] MEDS: FOLIC ACID 1 MG TAB PO SCH (09:46)
[2023-09-29 10:52] VITALS: PULSE 78
--- NOTE | 2023-09-29 11:05 | Discharge Summary ---
Date of Service September 29, 2023 Admission HPI Per Admitting Provider Cyndie Velasquez is a 58 year old female who presents to the ER with headache, chest pain, abdominal pain, nausea, vomiting. She reports her symptoms started suddenly this morning around 2am. She reports feeling well yesterday. She has a notable history of cerebellar stroke in November 2022 with vertigo at that time and reports intermittent episodes of vertigo since then; this was confirmed on chart review with readmission for vertiginous symptoms the day after discharge. Vertiginous episodes however are usually much milder until today when the room suddenly started spinning causing intense nausea and vomiting. This is worse on head movement and when she opens her eyes. She smokes marijuana but denies any nausea/vomiting related to this. Abdominal pain and chest pain only occurs while vomiting and not currently present when seen in the ER. She notes a headache of 7/10 severity, bilateral frontal constant ache. She denies any history of migraines but does note it is worse with the lights on. Principal Diagnosis Hypertensive urgency, PRES Discharge Exam The patient is awake, alert and oriented 3, well developed and well nourished, normocephalic and atraumatic, lying in bed and in no acute distress. HEENT--PERRL, EOMI, mucous membranes and oropharynx mildly dry Neck--supple. No JVD. No bruits. Thyroid normal, trachea midline, no adenopathy. Heart--normal S1 and S2. No murmurs, rubs or gallops. Lungs--clear bilaterally, no respiratory distress, no accessory muscle use. Abdomen--normal bowel sounds and soft. Extremities--no cyanosis or clubbing. No edema. Dermatologic--normal skin turgor, normal color, no abnormal lymph nodes, no rash. Neurologic--cranial nerves II through XII grossly intact. Rheumatologic--normal range of motion. Psychiatric--normal affect. Discharge Data Allergies Allergy/AdvReac Type Severity Reaction Status Date / Time napoles Allergy Intermediate Hives Verified 09/27/23 09:36 (green/hartman beans) doxycycline Allergy Intermediate Hives, Verified 09/27/23 09:36 vomiting Iodinated Contrast Media Allergy Intermediate Large Verified 09/27/23 09:36 hives, vomiting, "feeling hot" iodine Allergy Intermediate Hives, Verified 09/27/23 09:36 vomiting latex Allergy Intermediate Rash Verified 09/27/23 09:36 loperamide Allergy Intermediate Hives, Verified 09/27/23 09:36 vomiting meperidine Allergy Intermediate Hives, Verified 09/27/23 09:36 vomiting strawberry Allergy Intermediate Hives Verified 09/27/23 09:36 tomato Allergy Intermediate Hives Verified 09/27/23 09:36 prochlorperazine Allergy Mild N/V, Verified 09/27/23 09:36 itchiness Consultations 09/27/23 12:06 ED Decision to Admit Stat 09/27/23 23:39 Consult Deputy Chief Magistrate Routine Ordered Studies 09/27/23 06:33 CT angio chest dissec wo/w con Stat 09/27/23 06:34 CT angio abdomen pelvis w con Stat 09/27/23 11:15 CT head/brain wo con Stat 09/27/23 12:57 MRI Brain [MR brain wo con] Stat Hospital Course (1) Posterior reversible encephalopathy syndrome (PRES): Presents to the hospital with vertigo, upper extremity weakness and found to have elevated blood pressure MRI brain was done which showed evidence of PRES Started on nicardipine IV drip and transferred to ICU Blood pressure is now under better control Resume her home oral medications Discharge home (2) Vertigo: Suspect recrudescence of her prior stroke with nystagmus on exam MRI does not suggest new CVA Ondansetron for nausea Diazepam 5mg IV given prior to MRI, will consider repeat doses if ondansetron not effective but essentially main treatment is for PRES (3) Obstructive sleep apnea: per PCP notes. Refuses CPAP and also not advised currently due to vomiting (4) Peripheral arterial disease: s/p aortobifemoral bypass 04/2021 with post procedure blood clot s/p femoral-femoral bypass surgery 09/2022 Restart clopidogrel and Eliquis when able to take PO meds Currently on suppressive Bactrim therapy as a precaution due to fluid collection (5) CAD (coronary artery disease): Mild-moderate on cardiac catheterization in 2017 - minimal troponin rise, will repeat in AM, patient currently without chest pain (6) Marijuana dependence: No history of cannabis hyperemesis per patient (7) HTN (hypertension): Home oral antihypertensive medications have been restarted Blood pressure currently 113/83 (8) Seizure disorder: Switch Keppra to IV if unable to take PO meds (9) Hypertensive urgency, malignant: Now resolved Blood pressure under good control Continue home medications Plan VTE Prophyalxis - restart Eliquis when able to take PO meds Diet -resume diet Disposition -discharge home Total Time Total Time Spent Total Time Spent (In Minutes): 35 Discharge Plan Discharge Items Patient Disposition: Home - Self-Care Reason For Visit: HYPERTENSIVE URGENCY, INTRACTABLE NAUSEA/VOMITING Discharge Diagnosis: HTN urgency Activity: Resume your previous activity Non-emergency contact: Primary Care Provider Call non-emergency contact if: you have any medication questions Follow-up/Referrals: Teena Killian DO [Primary Care Provider] - 10/08/23 10:20 am (With Genia Bergeron PA-C) Diet: Regular Addtl Attending Provider Instructions: please make appointment to follow up with your PCP Pending Studies at Discharge: No Stand-Alone Forms: My [employer], Smoking Cessation Medications and DC Order Prescriptions: Continued pantoprazole 40 mg tablet,delayed release (DR/EC) 40 mg PO BID Qty: 180 2RF losartan 50 mg tablet 50 mg PO DAILY Qty: 90 3RF levetiracetam [Keppra] 1,000 mg tablet 1,000 mg PO BID Qty: 180 1RF ondansetron HCl 4 mg tablet 4 mg PO Q8H PRN (Reason: nausea and vomiting) Qty: 30 2RF clopidogrel [Plavix] 75 mg tablet 75 mg PO HS Qty: 90 1RF Patient Comments: PER DR PERSON OFFICE, TOLD TO STOP 7 DAYS BEFORE PROCEDURE amitriptyline 25 mg tablet 25 mg PO HS Qty: 90 1RF venlafaxine 150 mg capsule,extended release 24hr 150 mg PO QAM Qty: 90 1RF Eliquis 5 mg tablet 5 mg PO BID Qty: 60 2RF Combivent Respimat 20-100 mcg/actuation mist 1 puff inhalation Q6H PRN (Reason: SOB) carvedilol 25 mg tablet 25 mg PO BID Qty: 60 2RF Rx Instructions: must administer with a meal/food lorazepam 0.5 mg tablet 0.5 mg PO TID PRN (Reason: vertigo) Qty: 30 0RF Rx Instructions: central vertigo (DME) Auto Titrating CPAP Misc See Rx Instructions .ROUTE .MEDSUPPLY Qty: 1 0RF Rx Instructions: As directed Nightly multivitamin Tablet 0 tab PO QAM Rx Instructions: Unable to verify this medication w/ patient/family at this date/time. Medical Marijuana 0 dose PO DIRECTED PRN (Reason: Pain) Rx Instructions: Unable to verify this medication w/ patient/family at this date/time. rosuvastatin [Crestor] 40 mg Tablet 40 mg PO HS clonidine HCl 0.1 mg tablet 0 mg PO BID Rx Instructions: Take if systolic BP is >160, diastolic BP >100- TAKE UP TO FOUR TIMES DAILY IF NEEDED PER PT. Unable to verify this medication w/ patient/family at this date/time. Original Directions: 0.1mg by mouth twice daily ferrous sulfate 325 mg (65 mg iron) tablet 0 mg PO BID Rx Instructions: Unable to verify this medication w/ patient/family at this date/time. folic acid 1 mg tablet 0 mg PO DAILY Rx Instructions: Unable to verify this medication w/ patient/family at this date/time. Original Directions: 1mg by mouth once daily cholecalciferol (vitamin D3) 50 mcg (2,000 unit) tablet 0 unit PO HS Rx Instructions: Unable to verify this medication w/ patient/family at this date/time. mecobalamin (vitamin B12) 1,000 mcg tablet,chewable 0 mcg PO DAILY Rx Instructions: Unable to verify this medication w/ patient/family at this date/time. Discontinued Suflave 178.7-7.3-0.5 gram recon soln See Rx Instructions PO .COMPLEX Qty: 2 0RF Rx Instructions: Unable to verify this medication w/ patient/family at this date/time. orally; TAKE FIRST DOSE AT 6 PM AND SECOND DOSE 6 HOURS PRIOR TO PROCEDURE BIN: [id number] PCN: [id number] GROUP: [id number] sulfamethoxazole-trimethoprim 800-160 mg tablet 1 tab PO DAILY Discharge Orders: Discharge Order (Routine); Ordered 09/29/23 Ordered By: Ivette Chauhan Admission Data Admit Date/Time: 09/27/23 12:40 Attending Provider: Ivette Chauhan Admit Provider: Franck Pereira Primary Care Provider: Teena Killian Other Providers: Franck Pereira; Philip Deleon Other Interventions: Discharge Summary Assessment (RN) Last Done: 09/29/23 10:57 Coding Level of Care Code 16325 INP/OBS DISCH >30 MIN Diagnoses Posterior reversible encephalopathy syndrome (PRES) I67.83 Vertigo R42 Obstructive sleep apnea G47.33 Peripheral arterial disease I73.9 Coronary artery disease involving [place] coronary artery of [place] heart without angina pectoris I25.10 Coronary Disease-Associated Artery/Lesion type: [place] artery [place] vs. transplanted heart: [place] heart Associated angina: without angina Marijuana dependence F12.20 HTN (hypertension) I10 Seizure disorder G40.909 Hypertensive urgency, malignant I16.0 Time Spent (min) 35
--- OUTSIDE RECORDS SUMMARY | 2023-09-29 13:03 | External Medical Summary | Continuity of Care Document ---
Author Name Unknown Organization [facility] [address] [place], [place] [id number] Care Team Providers Care Inspector [employer] Name Role Phone Teena Killian Primary Care Physician [phone] [id number] Date(s): 07/10/23 - 07/10/23 [facility] [address], [address] [place] [address] [phone] Discharge Disposition: Home or Self Care Attending Physician: CHRIS Day Lynn Referring Physician: CHRIS Day Lynn Allergies, Adverse Reactions, Alerts Substance Reaction Severity Status doxycycline hives/vomit Active Demerol HCl hives Active IVP dye hives/vomit Active Immunizations Given and Recorded Vaccine Date Status Refusal Reason SARS-CoV-2 (COVID-19) mRNA-1273 vaccine 01/19/21 R ecorded SARS-CoV-2 (COVID-19) mRNA-1273 vaccine 12/22/20 R ecorded Medications amitriptyline 25 mg oral tablet Start: 12/14/20 9:42:00 EDT, 1 tab, PO, qhs Start Date: 12/14/20 Status: Ordered Bactrim DS 800 mg-160 mg oral tablet Start: 07/10/23 12:23:00 EST, 1 tab, PO, Daily, Disp# 90 tab, Refills: 1, Pharmacy: [id number] Start Date: 07/10/23 Status: Ordered Benadryl 25 mg oral capsule Start: 02/05/21 14:18:00 EDT, 1 cap, PO, As indicated, Disp# 1 cap, take one hour prior to CTA, PRN: as needed for allergy symptoms, Pharmacy: [id number] Start Date: 02/05/21 Status: Ordered carvedilol 25 mg oral tablet Start: 12/05/22 13:20:00 EDT, 1 tab, PO, bid, Disp# 60 tab, Refills: 11, Pharmacy: [id number] Start Date: 12/05/22 Status: Ordered cloNIDine 0.1 mg oral tablet Start: 12/11/21 11:51:00 EDT, 1 tablet, PO, bid, Disp# 90 tab, and prn up to QID for sbp >160 orDBP >100, Note to Pharmacy: just change in dose, Pharmacy: [id number] Start Date: 12/11/21 Status: Ordered clopidogrel 75 mg oral tablet Start: 12/14/20 9:43:00 EDT, 1 tab, PO, Daily Start Date: 12/14/20 Status: Ordered Combivent Respimat 20 mcg-100 mcg/inh inhalation aerosol Start: 07/24/22 11:01:00 EST, See Instructions, 1 puff inhaled q6h as needed Start Date: 07/24/22 Status: Ordered Crestor 40 mg oral tablet Start: 08/08/22 9:34:00 EST, 1 tab, PO, qhs, Disp# 30 tab, Refills: 11, Pharmacy: [id number] Start Date: 08/08/22 Status: Ordered Eliquis 5 mg oral tablet Start: 01/07/23 14:32:00 EDT, 1 tab, PO, bid Start Date: 01/07/23 Status: Ordered ferrous sulfate (as elemental iron) 45 mg oral tablet, extended release Start: 03/21/23 13:24:00 EDT, 1 tab, PO, Daily Start Date: 03/21/23 Status: Ordered Keppra 1000 mg oral tablet Start: 12/14/20 9:45:00 EDT, 1 tab, PO, bid Start Date: 12/14/20 Status: Ordered losartan 50 mg oral tablet Start: 03/05/23 11:55:00 EDT, 1 tab, PO, Daily, Disp# 90 tab, Refills: 3, Pharmacy: [id number] Start Date: 03/05/23 Status: Ordered multivitamin Start: 07/16/17 12:50:00, 1 tab, PO, Daily Start Date: 07/16/17 Status: Ordered ondansetron 4 mg oral tablet, disintegrating Start: 12/14/20 9:42:00 EDT, 1 tab, PO, tid, PRN: as needed for nausea/vomiting Start Date: 12/14/20 Status: Ordered predniSONE 50 mg oral tablet Start: 07/24/22 11:48:00 EST, See Instructions, Disp# 3 tab, Refills: 0, 1 tab PO q8h Start 12 hr before procedure/study, Pharmacy: [id number] Start Date: 07/24/22 Status: Ordered Tagamet 300 mg oral tablet Start: 02/05/21 14:19:00 EDT, 1 tab, PO, As indicated, Disp# 1 tab, Take one hour prior to CTA, Pharmacy: [id number] Start Date: 02/05/21 Status: Ordered Tylenol Start: 03/21/23 13:17:00 EDT Start Date: 03/21/23 Status: Ordered venlafaxine 75 mg oral capsule, extended release Start: 12/14/20 9:43:00 EDT, 2 cap, PO, Daily Start Date: 12/14/20 Status: Ordered Vitamin D3 2000 intl units (50 mcg) oral capsule Start: 04/16/21 12:42:00 EDT Start Date: 04/16/21 Status: Ordered Problem List Condition Confirmation Course Effective Dates Status H ealth Status Informant Dark stools Confirmed Active S/P aortobifemoral bypass surgery Confirmed Active S/P femoral-femoral bypass surgery Confirmed Active Hyperlipidemia Confirmed Active HTN (hypertension) Confirmed Active Aortoiliac occlusive disease Confirmed Active Infection of prosthetic graft Confirmed Active Renal artery stenosis Confirmed Active Tobacco user Confirmed Active Procedures Procedure Date Related Diagnosis Body Site Status Right to Left Femoral-femora l artery bpg 09/25/22 Completed Thrombectomy of RLE artery 09/23/21 Completed ART BYP AORTOBIFEMORAL 09/18/21 Co mpleted Ultrasound--abdomen 1, 2 12/23/16 Completed 1No acute sonographic abnormality is identified in the right upper quadrant. No gallstones are seen. 2RUQ u/s report reviewed. Numerous GB polyps up to 3 mm noted in body of report. Results Radiology Reports * Exam Date Time Procedure Performing Provider Status 07/10/23 10:17 AM VL Aortoiliac Duplex Complete Marielle Zelaya; Final Notes: (VL Aortoiliac Duplex Complete) Reason For Exam: fem fem bpg, aortobifem VL Aortoiliac Duplex Complete [facility] FINAL REPORT Name: ONEL MONTOYA : 1965 Visit: [id number] Date: 10 Jul 2023 TYPE OF TEST: Aorto-Iliac Duplex REASON FOR TEST [id number]-ct-[id number] bypass graft with occluded left limb; Right to Left fem-fem bypass graft INTERPRETATION/FINDINGS Arterial duplex imaging performed of the abdominal aorta, [id number] bypass graft and right to left fem-fem bypass graft: 1. The abdominal aorta is within normal limits; no aneurysm or stenosis. 2. S/P [id number] bypass graft with known occlusion of the left graft limb. Patent proximal graft anastomosis, main graft body, right graft limb and distal right graft limb anastomosis with no evidence of stenosis. Inflow: 59.1 cm/s Right graft limb: Prox - 106 cm/s Prox anast.: 59.8 cm/s Mid - 109 cm/s Dist - 112 cm/s Dist Anast - 81.3 cm/s 3. Patent right to left fem-fem bypass graft without evidence of stenosis at the proximal anastomosis, throughout the graft or at the distal anastomosis. There is a significant amount of perigraft fluid noted at the proximal and distal ends of the graft. Inflow: 179 cm/s Mid graft: 40.4 cm/s Prox anast: 152 cm/s Distal graft: 37.6 cm/s Prox graft: 75 cm/s Distal anast: 35.3 cm/s Outflow: 40.7 cm/s Compared to the previous study performed 01/07/2023, there is no significant change. IMPRESSION/COMMENTS I have personally reviewed the data relevant to the interpretation of this study. 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
--- OUTSIDE RECORDS SUMMARY | 2023-09-29 13:03 | External Medical Summary | Continuity of Care Document ---
Author Name Unknown Organization [facility] [address] [facility] Address [address] [place], [place] [id number] Care Team Providers Care Roll Weigher Name Role Phone Teena Killian Primary Care Physician [phone] Encounter [facility]R [id number] Date(s): 07/10/23 - 07/10/23 [facility] [address], [address] [place] [address] [phone] Encounter Diagnosis Aortoiliac occlusive disease(Discharge Diagnosis) - 07/10/23 Discharge Disposition: Home or Self Care Attending Physician: MD Maynard Eugene J Referring Physician: MD Killian Cara M Allergies, Adverse Reactions, Alerts Substance Reaction Severity Status doxycycline hives/vomit Active Demerol HCl hives Active IVP dye hives/vomit Active Assessment and Plan Extracted from: Title:Clinical Document Author:CHRIS Day Lynn Date:07/10/23 [facility] OUTPATIENT NOTE Name: ONEL MONTOYA Patient Number: [id number] : 1965 Date of Service: 07/10/2023 Chief Complaint: _Follow-up for femorofemoral bypass HPI: _Ms. Montoya is a middle-aged female who presents to Dr. Maynard's vascular surgery clinic today for a follow-up visit regarding her history of aortobifemoral bypass in remote past, and subsequent right left femorofemoral bypass performed in September 2022 due to occlusion of the left limb. Since her procedure in September, patient imaging has demonstrated some fluid around her bypass graft. Some of this fluid was aspirated and sent for culture, and did not grow anything. Patient presents for follow-up after undergoing a CT scan to better evaluate the fluid. Patient denies fevers or chills. She does state to feeling fatigued for the last month or more. She also admits some intermittent vomiting and diarrhea for the last 3 to 4 weeks. She feels that her stools or tarry, and she was having some blood in her urine, and saw her family physician just a few days ago. They are currently pursuing an evaluation of possible GI bleeding. Her hemoglobin 2 days ago was 14. Patient denies any lower extremity claudication symptoms at this time. She denies any rest pain or ulcerations or discoloration of the toes. Review of her CT scan done at [facility] continues to demonstrate fluid around both ends of her femorofemoral bypass graft which communicate in the center. This is not significantly changed in comparison to previous imaging. Her ultrasound performed prior to today's appointment demonstrates a widely patent femorofemoral bypass without evidence of stenosis throughout. Current Home Meds: (Last Updated 07/10 12:24) acetaminophen (Tylenol) albuterol-ipratropium (Combivent Respimat 20 mcg-100 mcg/inh inhalation aerosol) 1 puff inhaled q6h as needed amitriptyline (amitriptyline 25 mg oral tablet) 25 mg PO qhs apixaban (Eliquis 5 mg oral tablet) 5 mg PO bid carvedilol (carvedilol 25 mg oral tablet) 25 mg PO bid cholecalciferol (Vitamin D3 2000 intl units (50 mcg) oral capsule) cimetidine (Tagamet 300 mg oral tablet) 300 mg PO As indicated Take one hour prior to CTA cloNIDine (cloNIDine 0.1 mg oral tablet) PO bid and prn up to QID for sbp >160 or DBP >100 clopidogrel (clopidogrel 75 mg oral tablet) 75 mg PO Daily diphenhydrAMINE (Benadryl 25 mg oral capsule) 25 mg PO As indicated PRN: as needed for allergy symptoms take one hour prior to CTA ferrous sulfate (ferrous sulfate (as elemental iron) 45 mg oral tablet, extended release) 45 mg PO Daily levETIRAcetam (Keppra 1000 mg oral tablet) 1,000 mg PO bid losartan (losartan 50 mg oral tablet) 50 mg PO Daily multivitamin 1 tab PO Daily ondansetron (ondansetron 4 mg oral tablet, disintegrating) 4 mg PO tid PRN: as needed for nausea/vomiting predniSONE (predniSONE 50 mg oral tablet) 1 tab PO q8h Start 12 hr before procedure/study rosuvastatin (Crestor 40 mg oral tablet) 40 mg PO qhs sulfamethoxazole-trimethoprim (Bactrim DS 800 mg-160 mg oral tablet) 1 tab PO Daily venlafaxine (venlafaxine 75 mg oral capsule, extended release) 150 mg PO Daily Allergies and Sensitivities: Demerol HCl(hives) doxycycline(hives/vomit) IVP dye(hives/vomit) Past Medical History: Problems: Infection of prosthetic graft Dark stools S/P femoral-femoral bypass surgery Hyperlipidemia HTN (hypertension) Tobacco user S/P aortobifemoral bypass surgery Aortoiliac occlusive disease Renal artery stenosis OBJECTIVE Vitals: Last Updated 07/10/23 11:53 Date Temp BP Location Pulse RR SpO2 Pain 07/10/23 0 07/10/23 132/86 Right Arm 69 95 03/21/23 106/72 Right Arm 66 98 Vital Signs are the last 3 documented. No Orthostatic Data Available Height and Weight: Last Updated 03/21/23 13:25 Date BMI Wt(kg) Wt(lb) Method Ht(cm) (ft-in) Method 03/21/23 86 189 Standing Scale 12/03/22 84 185 Standing Scale 09/10/21 92 202 Standing Scale Heights and Weights are the last 3 documented. Physical Exam _ Constitutional: In general patient is an obese but healthy-appearing well- nourished well-developed middle-aged female in no acute distress. She is alert and oriented with any focal deficits. Her heart is regular, her lungs are clear. Her abdomen is soft nontender with active bowel sounds in all 4 quadrants. Her bilateral femoral incisions are well-healed, without erythema ecchymosis tenderness or discharge. Bypass graft is palpable across the pelvis, there may be some slight edema here. Her lower extremity distal pulses are palpable. ASSESSMENT: _ PLAN: _ 1 ) _aortoiliac occlusive disease Patient is about 10 months status post femorofemoral bypass performed due to occlusion of the left limb of her remote past aortobifem bypass. She states that she is no longer having the severe leg discomfort that she was experiencing. She is advised to continue following with her family physician regarding the possible GI bleed. Her vital signs are stable and she is afebrile in our office today. She does not appear to have any overt signs of worsening systemic illness related to the fluid collection. At this point it is difficult to determine whether it is a sterile seroma or an infection, but there is no other findings to indicate infection. There is no sinus tract. There is no redness. Would like to monitor this fluid collection for size by performing a new CT scan in 3 months for reevaluation. In the meantime we will put her on suppressive Bactrim therapy as a precaution. She is advised to go to the emergency department if she should develop any severe fevers or chills. She is agreeable with this plan. She will call with any other questions. Thank you for letting us participate in the care of this patient. Immunizations Given and Recorded Vaccine Date Status Refusal Reason SARS-CoV-2 (COVID-19) mRNA-1273 vaccine 01/19/21 R ecorded SARS-CoV-2 (COVID-19) mRNA-1273 vaccine 12/22/20 R ecorded Medications amitriptyline 25 mg oral tablet Start: 12/14/20 9:42:00 EDT, 1 tab, PO, qhs Start Date: 12/14/20 Status: Ordered Bactrim DS 800 mg-160 mg oral tablet Start: 07/10/23 12:23:00 EST, 1 tab, PO, Daily, Disp# 90 tab, Refills: 1, Pharmacy: [id number] Start Date: 07/10/23 Status: Ordered Benadryl 25 mg oral capsule Start: 02/05/21 14:18:00 EDT, 1 cap, PO, As indicated, Disp# 1 cap, take one hour prior to CTA, PRN: as needed for allergy symptoms, Pharmacy: [id number] Start Date: 02/05/21 Status: Ordered carvedilol 25 mg oral tablet Start: 12/05/22 13:20:00 EDT, 1 tab, PO, bid, Disp# 60 tab, Refills: 11, Pharmacy: [id number] Start Date: 12/05/22 Status: Ordered cloNIDine 0.1 mg oral tablet Start: 12/11/21 11:51:00 EDT, 1 tablet, PO, bid, Disp# 90 tab, and prn up to QID for sbp >160 orDBP >100, Note to Pharmacy: just change in dose, Pharmacy: [id number] Start Date: 12/11/21 Status: [...] qhs, Disp# 30 tab, Refills: 11, Pharmacy: [id number] Start Date: 08/08/22 Status: [...] Daily, Disp# 90 tab, Refills: 3, Pharmacy: [id number] Start Date: 03/05/23 Status: [...] q8h Start 12 hr before procedure/study, Pharmacy: [id number] Start Date: 07/24/22 Status: Ordered Tagamet 300 mg oral tablet Start: 02/05/21 14:19:00 EDT, 1 tab, PO, As indicated, Disp# 1 tab, Take one hour prior to CTA, Pharmacy: [id number] Start Date: 02/05/21 Status: Ordered Tylenol Start: 03/21/23 13:17:00 EDT Start Date: 03/21/23 Status: Ordered venlafaxine 75 mg oral capsule, extended release Start: 12/14/20 9:43:00 EDT, 2 cap, PO, Daily Start Date: 12/14/20 Status: Ordered Vitamin D3 2000 intl units (50 mcg) oral capsule Start: 04/16/21 12:42:00 EDT Start Date: 04/16/21 Status: Ordered Mental Status 07/10/23 Barriers to Learning one year None evide nt Mandatory Health Literacy Documentation Yes Health Literacy Communication Barriers N ever Primary Language Kiswahili Problem List Condition Confirmation Course Effective Dates Status H ealth Status Informant Dark stools Confirmed Active S/P aortobifemoral bypass surgery Confirmed Active S/P femoral-femoral bypass surgery Confirmed Active Hyperlipidemia Confirmed Active HTN (hypertension) Confirmed Active Aortoiliac occlusive disease Confirmed Active Infection of prosthetic graft Confirmed Active Renal artery stenosis Confirmed Active Tobacco user Confirmed Active Diagnosis Diagnosis Type Effective Dates Health Status Clinical Service Informant Aortoiliac occlusive disease Discharge Diagnosis 07/10/23 Procedures Procedure Date Related Diagnosis Body Site [...] 3 mm noted in body of report. Vital Signs Most recent to oldest [Reference Range]: 1 Heart Rate 69 bpm (07/10/23 11:51 AM) Blood Pressure 132/86mmHg (07/10/23 11:51 AM) Cuff Pulse Pressure 46 mmHg (07/10/23 11:51 AM) BP Location # 1 Right Arm (07/10/23 11:51 AM) Social History Social History Type Response Tobacco Former smoker Smoking Status Former Smoker, quit > 1 yr Sex Female [facility] Outpt Note * CHRIS Day Lynn: PERFORM Event Display: [facility] Outpt Note Authored Date: [id number] [facility] OUTPATIENT NOTE Name: ONEL MONTOYA Patient Number: [id number] : 1965 Date of Service: 07/10/2023 Chief Complaint: _Follow-up for femorofemoral bypass HPI: _Ms. Montoya is a middle-aged female who presents to Dr. Maynard's vascular surgery clinic today for a follow-up visit regarding her history of aortobifemoral bypass in remote past, and subsequent right left femorofemoral bypass performed in September 2022 due to occlusion of the left limb. Since her procedure in September, patient imaging has demonstrated some fluid around her bypass graft. Someof this fluid was aspirated and sent for culture, and did not grow anything. Patient presents for follow-up after undergoing a CT scan to better evaluate the fluid. Patient denies fevers or chills. She does state to feeling fatigued for the last month or more. She also admits some intermittent vomiting and diarrhea for the last 3 to 4 weeks. She feels that her stools or tarry, and she was having some blood in her urine, and saw her family physician just a few days ago. They are currently pursuing an evaluation of possible GI bleeding. Her hemoglobin 2 days ago was 14. Patient denies any lowerextremity claudication symptoms at this time. She denies any rest pain or ulcerations or discoloration of the toes. Review of her CT scan done at [facility] continues to demonstrate fluid around both ends of her femorofemoral bypass graft which communicate in the center. This is not significantlychanged in comparison to previous imaging. Her ultrasound performed prior to today's appointment dem onstrates a widely patent femorofemoral bypass without evidence of stenosis throughout. Current Home Meds: (Last Updated 07/10 12:24) acetaminophen (Tylenol) albuterol-ipratropium (Combivent Respimat 20 mcg-100 mcg/inh inhalation aerosol) 1 puff inhaled q6has needed amitriptyline (amitriptyline 25 mg oral tablet) 25 mg PO qhs apixaban (Eliquis 5 mg oral tablet) 5 mg PO bid carvedilol (carvedilol 25 mg oral tablet) 25 mg PO bid cholecalciferol (Vitamin D3 2000 intl units (50 mcg) oral capsule) cimetidine (Tagamet 300 mg oral tablet) 300 mg PO As indicated Take one hour prior to CTA cloNIDine (cloNIDine 0.1 mg oral tablet) PO bid and prn up to QID for sbp >160 or DBP >100 clopidogrel (clopidogrel 75 mg oral tablet) 75 mg PO Daily diphenhydrAMINE (Benadryl 25 mg oral capsule) 25 mg PO As indicated PRN: as needed for allergy symptoms take one hour prior to CTA ferrous sulfate (ferrous sulfate (as elemental iron) 45 mg oral tablet, extended release) 45 mg PO Daily levETIRAcetam (Keppra 1000 mg oral tablet) 1,000 mg PO bid losartan (losartan 50 mg oral tablet) 50 mg PO Daily multivitamin 1 tab PO Daily ondansetron (ondansetron 4 mg oral tablet, disintegrating) 4 mg PO tid PRN: as needed for nausea/vomiting predniSONE (predniSONE 50 mg oral tablet) 1 tab PO q8h Start 12 hr before procedure/study rosuvastatin (Crestor 40 mg oral tablet) 40 mg PO qhs sulfamethoxazole-trimethoprim (Bactrim DS 800 mg-160 mg oral tablet) 1 tab PO Daily venlafaxine (venlafaxine 75 mg oral capsule, extended release) 150 mg PO Daily Allergies and Sensitivities: Demerol HCl(hives) doxycycline(hives/vomit) IVP dye(hives/vomit) Past Medical History: Problems: Infection of prosthetic graft Dark stools S/P femoral-femoral bypass surgery Hyperlipidemia HTN (hypertension) Tobacco user S/P aortobifemoral bypass surgery Aortoiliac occlusive disease Renal artery stenosis OBJECTIVE Vitals: Last Updated 07/10/23 11:53 Date Temp BP Location Pulse RR SpO2 Pain 07/10/23 0 07/10/23 132/86 Right Arm 69 95 03/21/23 106/72 Right Arm 66 98 Vital Signs are the last 3 documented. No Orthostatic Data Available Height and Weight: Last Updated 03/21/23 13:25 Date BMI Wt(kg) Wt(lb) Method Ht(cm) (ft-in) Method 03/21/23 86 189 Standing Scale 12/03/22 84 185 Standing Scale 09/10/21 92 202 Standing Scale Heights and Weights are the last 3 documented. Physical Exam _ Constitutional: In general patient is an obese but healthy-appearing well- nourished well-developed middle-aged female in no acute distress. She is alert and oriented with any focal deficits. Her heart is regular, her lungs are clear. Her abdomen is soft nontender with active bowel sounds in all 4 quadrants. Her bilateral femoral incisions are well-healed, without erythema ecchymosis tenderness ordischarge. Bypass graft is palpable across the pelvis, there may be some slight edema here. Her lower extremity distal pulses are palpable. ASSESSMENT: _ PLAN: _ 1 ) _aortoiliac occlusive disease Patient is about 10 months status post femorofemoral bypass performed due to occlusion of the left limb of her remote past aortobifem bypass. She states that she is no longer having the severe leg discomfort that she was experiencing. She is advised to continue following with her family physician regarding the possible GI bleed. Her vital signs are stable and she is afebrile in our office today. She does not appear to have any overt signs of worsening systemic illness related to the fluid collection. At this point it is difficult to determine whether it is a sterile seroma or an infection, but there is no other findings to indicate infection. There is no sinus tract. There is no redness. Would like to monitor this fluid collection for size by performing a new CT scan in 3 months for reevaluation. In the meantime we will put her on suppressive Bactrim therapy as a precaution. She is advised to go to the emergency department if she should develop any severe fevers or chills. She is agreeable with this plan. She will call with any other questions. Thank you for letting us participate in the care of this patient. Electronic Signature on File CC: Teena Killian, DO [address] [facility] [id number] * CC: Curt Rodriguez, DO [address] [facility] 1 [facility] [address] Electronically Reviewed/Signed by: Nat Day PA-C Author Signature Dt/Tm:07/10/2023 12:56 PM [facility] [place] [address] [facility] 1 [place] 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
[2023-10-01 14:57] LABS: Marijuana Quant, GCMS Urine 733 ng/mL (<5)
[2023-10-12 15:38] LABS: Catech Norepinephrine 1069 pg/mL; Catech Total, Plasma <1108 pg/mL; Metanephrine, Plasma 38 pg/mL (<=57); Normetanephrine Plasma 249 pg/mL (<=148); Total Metanephrine Plasma 287 pg/mL (<=205)
== END 2023-09-29 12:41 | disposition home or self-care (01) | DRG 304 ==
LOC: ED 05:56 → 2E 05:56 → SUATTDRO 12:40 → 2E 15:22 → 1E 22:19 → 2E 09-29 00:38

== ENCOUNTER 2023-10-01 05:54 | Inpatient (IN) ==
[2023-10-01 06:36] LABS: Basophils # (auto) 0.12 K/uL (0.00-0.20); Basophils % (auto) 1.2 %; Eosinophils # (auto) 0.36 K/uL (0.00-0.50); Eosinophils % (auto) 3.6 %; Hematocrit (blood only) 45.2 % (37.0-47.0); Hemoglobin 15.2 g/dl (12.0-16.0); Immature Granulocytes # (auto) 0.05 K/uL (0.01-0.20); Immature Granulocytes % (auto) 0.5 %; Lymphocytes # (auto) 2.04 K/uL (1.20-3.40); Lymphocytes % (auto) 20.4 %; Mean Corpuscular Hemoglobin 30.8 pg (25.0-34.0); Mean Corpuscular Hgb Conc 33.6 g/dL (32.0-36.0); Mean Corpuscular Volume 91.7 fL (80.0-100.0); Mean Platelet Volume 9.7 fL (9.4-12.4); Monocytes # (auto) 0.54 K/uL (0.11-0.59); Monocytes % (auto) 5.4 %; Neutrophils # (auto) 6.87 K/uL (1.40-6.50); Neutrophils % (auto) 68.9 %; Platelet Count 307 K/uL (130-400); RDW Coefficient of Variation 12.2 % (11.5-14.5); RDW Standard Deviation 40.8 fL (36.4-46.3); Red Blood Count 4.93 M/uL (4.20-5.40); White Blood Count 9.98 K/ul (4.8-10.8)
[2023-10-01] MEDS: PROMETHAZINE 6.25 MG/50.25 ML BAG IV STA (06:36)
[2023-10-01] MEDS: ONDANSETRON INJ 2 MG/ML 2 ML VIAL IV STA ×2 (06:37→07:47)
--- NOTE | 2023-10-01 06:41 | Emergency Department Note ---
Impression & Plan Hypertensive emergency, PRES (posterior reversible encephalopathy syndrome), Vomiting, Headache, Elevated troponin ED Provider Note NAME: ONEL MONTOYA AGE: 58 SEX: F : 1965 ARRIVES VIA: Ambulance INFORMANT: [Patient][nursing] ED PROVIDER(S): [Armin Tariq MD] CHIEF COMPLAINT: Hypertension HISTORY OF PRESENT ILLNESS: The patient is a 58-year-old female who was discharged from our hospital 2 days ago. She was in the ICU for extremely high blood pressure and PRES syndrome. The patient states that she has been taking her blood pressure medications since discharge. She took medications as prescribed last night. This morning, 2.5 hours ago, she awoke with headache, nausea vomiting and feelings of high blood pressure. She presents by ambulance to the hospital. Upon entering the room, the patient is vomiting into a bag. She complains of a mild headache. She states that she knows her blood pressure is high as this is how she typically presents. She has had no cough or cold. No real chest pain. No arm or leg weakness. PMHx/PSHx/Social Hx: See Below PHYSICAL EXAM: GENERAL: Patient is in mild distress, vomiting. HEENT: No acute trauma, normocephalic atraumatic, mucous membranes moist, no nasal congestion. NECK: No stridor, no adenopathy, no meningismus, trachea is midline. LUNGS: Clear to auscultation bilaterally, no wheeze, no rhonchi, breath sounds equal. Diminished breath sounds bilaterally. HEART: No obvious murmur, mildly tachycardic with a regular rhythm. ABDOMEN: Soft, nontender, no peritonitis. EXTREMITIES: No cyanosis, full range of motion of all the joints without pain or difficulty. NEUROLOGIC: Oriented x 3, no acute motor or sensory deficits, no focal weakness. No speech slur or facial droop. SKIN: No jaundice, no diaphoresis. DIFFERENTIAL DIAGNOSIS: PRES, hypertensive emergency/urgency, medication noncompliance, stroke, intracranial bleeding, cardiac ischemia, among others. EMERGENCY DEPARTMENT PROCEDURES: MEDICAL DECISION MAKING: There is no leukocytosis or concerning anemia. There is a normal platelet count. No coagulopathy. No renal failure or significant electrolyte abnormality. No concerning liver enzyme elevation. No evidence for pancreatitis. ECG shows a normal sinus rhythm, no obvious acute ischemia. Cardiac enzyme testing x 1 is slightly elevated. This elevation could be secondary to cardiac injury or potentially mismatch from her very high blood pressure. Of note, the troponin value today is less than a value done just a few days ago. Chest films not show mediastinal widening, pneumonia or pneumothorax. Brain CT shows potential PRES, no acute bleed or mass effect. Respiratory bio fire was negative, urine tox showed marijuana. On exam, the patient was very hypertensive, she was vomiting. No real mental status change. The patient was aggressively managed given her presentation and blood pressure readings. She received IV labetalol, she was placed on a nicardipine drip. She received IV Zofran and IV Phenergan, a second dose of IV Zofran was given. Patient's blood pressure is improved but still high--currently 157/100, she is still somewhat nauseated. She is going to require a hospital stay once again. I did speak with the patient and case management, the on-call hospitalist was consulted. Prior/Outside records/notes reviewed: Discharge note from 09/29/2023 discussing her presentation for high blood pressure and PRES. ECG per my interpretation: Indication was uncontrolled hypertension. The ECG shows a normal sinus rhythm with a rate of 81. There is an incomplete right bundle branch block. There is no ST elevation. There is a potential old inferior infarct. There is some poor R wave progression. No PVCs. The QTc is 480. Continuous Cardiac Monitoring per my interpretation: An order was placed for continuous cardiac monitoring. The monitor shows a rate of 102 with sinus tachycardia. Imaging/x-ray results per my interpretation: Chest x-ray does not show mediastinal widening, pneumonia or pneumothorax. Chronic Medical/Social conditions affecting care: Hypertension Care/Management discussed with: Case management, the on-call hospitalist. Level of care consideration(s): After review of the information above and other included data: --I believe the patient requires escalation of care to admission Critical Care Note: I have personally spent 51 minutes of critical care time in the direct management of this patient. This includes bedside care, interpretation of diagnostic studies, and testing, discussion with consultants, patient, and family members, and other required patient management activities. This 51 minutes is in excess of all separately billable procedures. DISPOSITION: Admission Past Med/Surg History Medical History Posterior reversible encephalopathy syndrome (PRES) Hypertensive urgency Elevated troponin Hypertensive emergency Hypokalemia Hypophosphatemia Tachycardia Postoperative nausea Seizures 2018 r/t hypertensive emergency > encephalopathy. last seizure 2019 Hematemesis History of COVID-19 03/18/22, pcr [facility] [place], hospitalized day after diagnosis due to vomiting blood, discharged on 03/22/22; fever, vomiting, body chills and aches, diarrhea > resolved currently. 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 Maynard Cyclic vomiting syndrome no GI pathology on EGD, US, CT of abd/pelvis, celiac testing and GES per 04/2020 GI consult: biliary w/u and upper GI study recommended (upper GI study neg per d/c summary), cannabis cessation, continue Protonix and prn Zofran > currently controlled Obstructive sleep apnea mod-severe per PCP records (does not have device) GERD (gastroesophageal reflux disease) Renal artery stenosis following with Dr Maynard Seizure Proteinuria Cyclic vomiting syndrome Hypercalcemia HTN (hypertension) h/o multiple hypertensive urgency episodes, renal artery stenosis, following with cardiology and vascular surgery PRES (posterior reversible encephalopathy syndrome) has since caused seizures that started in 2018. following with PCP, last seizure per pt 08/2019 per PCP records Cannabinoid hyperemesis syndrome History of diverticulitis of colon Most recent 04/2022 Transient cerebrovascular ischemia Per records, pt unaware Anxiety disorder Cervical disc disorder Full ROM per pt Hyperlipidemia Multiple thyroid nodules Pulmonary emphysema well controlled per pt CAD (coronary artery disease) Mild-moderate non-obstructive CAD per 2017 cardiac cath Carotid stenosis < 50% stenosis B/L per US 12/16/18 Takotsubo cardiomyopathy 2017. Admitted [facility], full cardiac workup including cath. EF at the time 40%, now subsequent echos. Follows with Dr. Rodriguez NSTEMI (non-ST elevated myocardial infarction) 2017 Surgical History History of anesthesia reaction Low O2 sats during colonoscopy 04/2022 at [facility] and post-procedure elevated BP. Per post-op anesthesia progress note, O2 96-100% RA and "Pt has increased BP 2ndary to abdominal pain. Pt also has nausea w/ dry heaves. Pt to have CT scan per Dr Patten." History of tooth extraction History of cataract surgery bilat Status post surgery RLE thrombectomy S/P aortobifemoral bypass surgery Sep 2021 [facility] History of esophagogastroduodenoscopy (EGD) H/O cervical spine surgery ACDF C4-7 Dr. [place]: Grade 1 view, Bojorquez#2 and ETT#7.5 atraumatic x 1. No issues per anesthesia postop progress note. ROM WNL History of cardiac cath 2017 > no stents History of ovarian cystectomy History of hernia surgery right inguinal hernia repair History of hysterectomy Family History Father Family history of stomach cancer Malignant neoplasm of esophagus Stomach cancer Myocardial infarction Stroke Uncle Throat cancer Family history of cancer Grandmother (Maternal) Bone cancer Breast cancer Mother No problems noted. Brother Lung cancer Other Family history of diabetes mellitus No family history of adverse response to anesthesia No pertinent family history Denies family history of Colon cancer Ovarian cancer Prostate cancer Crohn's disease IBD (inflammatory bowel disease) Social History Smoking Status: Former smoker Tobacco Type: Cigarettes packs per day: 2; Second Hand Exposure: No; Do You Dip or Chew Tobacco: No; Hx Alcohol Use: No Hx Substance Use: Yes Last Used Substance: Just Prior to Arrival Last Used Substance Other:: PATIENT STATES THAT SHE USES MARIJUANA 3-4X YEAR FOR PAIN Substance Use Type Other:: medical card > flower Preferred Language: Greek Communication Ability: Effective Visual Impairment: No Limitations Hearing Ability: Normal C.O.D. Biller Required: No Beliefs That Will Affect Care: None marital status: Current Living Situation: Significant Other Current Living Situation Comment: [place] current occupational status: employed current occupation: [employer] Feels Safe at Home: Yes Childhood Exposure to Second-Hand Smoke: Yes Diet: regular Diet Comment: Regular caffeine: Yes (1 cup of coffee) during the past year weight has: other Dental Care, Regularly: No Physical Activity Frequency: Daily Physical Activity Frequency Comment: walking Seatbelt Use: always Sunscreen Use: Yes Assistive Devices: None and Cane Allergies Allergies Allergy/AdvReac Type Severity Reaction Status Date / Time napoles Allergy Intermediate Hives Verified 09/27/23 09:36 (green/hartman beans) doxycycline Allergy Intermediate Hives, Verified 09/27/23 09:36 vomiting Iodinated Contrast Media Allergy Intermediate Large Verified 09/27/23 09:36 hives, vomiting, "feeling hot" iodine Allergy Intermediate Hives, Verified 09/27/23 09:36 vomiting latex Allergy Intermediate Rash Verified 09/27/23 09:36 loperamide Allergy Intermediate Hives, Verified 09/27/23 09:36 vomiting meperidine Allergy Intermediate Hives, Verified 09/27/23 09:36 vomiting strawberry Allergy Intermediate Hives Verified 09/27/23 09:36 tomato Allergy Intermediate Hives Verified 09/27/23 09:36 prochlorperazine Allergy Mild N/V, Verified 09/27/23 09:36 itchiness Home Meds Home Medications Medication Instructions Recorded Confirmed rosuvastatin 40 mg tablet (Crestor) 40 mg PO HS 09/11/21 09/30/23 ipratropium 20 mcg-albuterol 100 1 puff inhalation Q6H PRN SOB 01/01/23 09/30/23 mcg/actuation mist for inhalation (Combivent Respimat) Medical Marijuana 09/30/23 09/30/23 cholecalciferol (vitamin D3) 50 2,000 unit PO HS 09/30/23 09/30/23 mcg (2,000 unit) tablet clonidine HCl 0.1 mg tablet 0.1 mg PO BID 09/30/23 09/30/23 ferrous sulfate 325 mg (65 mg 325 mg PO DAILY 09/30/23 09/30/23 iron) tablet folic acid 1 mg tablet 1 mg PO DAILY 09/30/23 09/30/23 mecobalamin (vitamin B12) 1,000 1,000 mcg PO DAILY 09/30/23 09/30/23 mcg chewable tablet multivitamin-ferrous 1 tab PO DAILY 09/30/23 09/30/23 fumarate-folic acid 18 mg-400 mcg tablet Previous Rx's Medication Instructions Recorded Auto Titrating CPAP #1 ea 07/15/22 pantoprazole 40 mg tablet,delayed 40 mg PO BID #180 tabs 12/06/22 release carvedilol 25 mg tablet 25 mg PO BID #60 tabs 01/01/23 lorazepam 0.5 mg tablet 0.5 mg PO TID PRN vertigo #30 tabs 01/01/23 losartan 50 mg tablet 50 mg PO DAILY #90 tabs 03/05/23 levetiracetam 1,000 mg tablet 1,000 mg PO BID #180 tabs 04/08/23 (Keppra) clopidogrel 75 mg tablet (Plavix) 75 mg PO HS #90 tabs 06/02/23 ondansetron HCl 4 mg tablet 4 mg PO Q8H PRN nausea and 06/02/23 vomiting #30 tabs amitriptyline 25 mg tablet 25 mg PO HS #90 tabs 06/10/23 venlafaxine 150 mg 150 mg PO QAM #90 caps 06/16/23 capsule,extended release 24 hr apixaban 5 mg tablet (Eliquis) 5 mg PO BID #60 tabs 06/23/23 Results & Data (ED) Vital Signs Vital Signs - 24 hr 10/01/23 06:00 10/01/23 06:00 10/01/23 06:01 Temperature 36.4 C L Temperature Source Oral Pulse Rate 91 H 80 103 H Pulse Rate [Apical] Respiratory Rate 26 H 18 Respiratory Effort / Characteristics Non-Labored Respiratory Depth Normal Respiratory Pattern Regular Blood Pressure 199/132 H Blood Pressure [Right Arm] Blood Pressure Mean 154 Blood Pressure Mean [Right Arm] Pulse Oximetry 97 98 Oxygen Delivery Method Room Air Room Air Sepsis Recent Fever Within 48 Hours No Sepsis New/Unexplained Change in Mental Status N/A Sepsis Action Taken by Nursing No Action Required 10/01/23 06:03 10/01/23 06:05 10/01/23 06:23 Temperature Temperature Source Pulse Rate 78 83 Pulse Rate [Apical] Respiratory Rate 18 15 Respiratory Effort / Characteristics Respiratory Depth Respiratory Pattern Blood Pressure 225/131 H Blood Pressure [Right Arm] Blood Pressure Mean 162 Blood Pressure Mean [Right Arm] Pulse Oximetry 96 95 97 Oxygen Delivery Method Room Air Room Air Room Air Sepsis Recent Fever Within 48 Hours Sepsis New/Unexplained Change in Mental Status Sepsis Action Taken by Nursing 10/01/23 06:26 10/01/23 06:30 10/01/23 06:45 Temperature Temperature Source Pulse Rate Pulse Rate [Apical] 88 80 86 Respiratory Rate 18 16 14 Respiratory Effort / Characteristics Non-Labored Non-Labored Non-Labored Respiratory Depth Normal Normal Normal Respiratory Pattern Regular Regular Blood Pressure Blood Pressure [Right Arm] 229/143 H 220/133 H 223/134 H Blood Pressure Mean Blood Pressure Mean [Right Arm] 171 162 163 Pulse Oximetry 97 96 97 Oxygen Delivery Method Room Air Room Air Room Air Sepsis Recent Fever Within 48 Hours Sepsis New/Unexplained Change in Mental Status Sepsis Action Taken by Nursing 10/01/23 07:00 10/01/23 07:17 10/01/23 07:30 Temperature Temperature Source Pulse Rate Pulse Rate [Apical] 100 H 106 H 121 H Respiratory Rate 12 13 13 Respiratory Effort / Characteristics Respiratory Depth Respiratory Pattern Blood Pressure Blood Pressure [Right Arm] 207/127 H 199/125 H 190/125 H Blood Pressure Mean Blood Pressure Mean [Right Arm] 153 149 146 Pulse Oximetry 96 95 96 Oxygen Delivery Method Room Air Room Air Room Air Sepsis Recent Fever Within 48 Hours Sepsis New/Unexplained Change in Mental Status Sepsis Action Taken by Nursing 10/01/23 07:45 Temperature Temperature Source Pulse Rate Pulse Rate [Apical] 95 H Respiratory Rate 14 Respiratory Effort / Characteristics Respiratory Depth Respiratory Pattern Blood Pressure Blood Pressure [Right Arm] 169/112 H Blood Pressure Mean Blood Pressure Mean [Right Arm] 131 Pulse Oximetry 96 Oxygen Delivery Method Room Air Sepsis Recent Fever Within 48 Hours Sepsis New/Unexplained Change in Mental Status Sepsis Action Taken by Half-Way Medications Current Medication List: was personally reviewed by me Laboratory Data Attestation: I reviewed the patient's lab results. 10/01/23 06:20 10/01/23 06:20 Lab Results 10/01/23 10/01/23 10/01/23 Range/Units 06:20 06:47 07:20 WBC 9.98 (4.8-10.8) K/ul RBC 4.93 (4.20-5.40) M/uL Hgb 15.2 (12.0-16.0) g/dl Hct 45.2 (37.0-47.0) % MCV 91.7 (80.0-100.0) fL MCH 30.8 (25.0-34.0) pg MCHC 33.6 (32.0-36.0) g/dL RDW Std Deviation 40.8 (36.4-46.3) fL RDW Coeff of Jose Luis 12.2 (11.5-14.5) % Plt Count 307 (130-400) K/uL MPV 9.7 (9.4-12.4) fL Immature Gran % (Auto) 0.5 % Neut % (Auto) 68.9 % Lymph % (Auto) 20.4 % Bullock % (Auto) 5.4 % Eos % (Auto) 3.6 % Baso % (Auto) 1.2 % Neut # (Auto) 6.87 H (1.40-6.50) K/uL Lymph # (Auto) 2.04 (1.20-3.40) K/uL Bullock # (Auto) 0.54 (0.11-0.59) K/uL Eos # (Auto) 0.36 (0.00-0.50) K/uL Baso # (Auto) 0.12 (0.00-0.20) K/uL Immature Gran # (Auto) 0.05 (0.01-0.20) K/uL PT 10.4 (9.0-12.0) Seconds INR 0.9 (0.9-1.1) APTT 28 (21-31) Seconds PTT Ratio 1.0 Sodium 137 (136-145) mmol/L Potassium 3.7 (3.5-5.1) mmol/L Chloride 102 (98-107) mmol/L Carbon Dioxide 22 (21-32) mmol/L Anion Gap 13 H (3-11) BUN 21 (6-23) mg/dl Creatinine 1.07 (0.6-1.2) mg/dl Est Cr Clr Drug Dosing 62.4 ml/min Est GFR ( Amer) 66.7 ml/min Est GFR (Non-Af Amer) 57.6 ml/min BUN/Creatinine Ratio 19.6 (10-20) Glucose 191 H (70-99(Fasting)) mg/dl Calcium 9.8 (8.6-10.3) mg/dl Magnesium 1.8 (1.7-2.4) mg/dl Total Bilirubin 0.4 (0.2-1.0) mg/dl AST 30 (13-39) U/L ALT 32 (7-52) U/L Alkaline Phosphatase 79 (34-104) U/L Troponin I High Sens 756.3 H* (0-14) pg/ml Total Protein 7.5 (6.0-8.3) gm/dl Albumin 4.6 (3.4-5.0) gm/dl Globulin 2.9 (2.5-4.0) gm/dl Albumin/Globulin Ratio 1.6 (0.9-2) Lipase 40 (11-82) U/L Urine Opiates Screen Neg (Neg) Ur Methadone, Qual Neg (Neg) Urine Barbiturates Neg (Neg) Ur Phencyclidine (PCP) Neg (Neg) U Amphetamin/Meth Scrn Neg (Neg) MDMA (Ecstasy) Screen Neg (Neg) U Benzodiazepines Scrn Neg (Neg) Ur Cocaine Metabolite Neg (Neg) U Marijuana (THC) Screen Pos H (Neg) Adenovirus (PCR) Not Detected (NotDetected) B. pertussis DNA (PCR) Not Detected (NotDetected) B.parapertussis DNA PCR Not Detected (NotDetected) C. pneumoniae DNA (PCR) Not Detected (NotDetected) Coronavirus OC43 (PCR) Not Detected (NotDetected) Coronavirus HKU1 (PCR) Not Detected (NotDetected) Coronavirus 229E (PCR) Not Detected (NotDetected) SARS-CoV-2 (PCR) Not Detected (NotDetected) Coronavirus NL63 (PCR) Not Detected (NotDetected) Human Metapneumovir PCR Not Detected (NotDetected) Influenza Type A (PCR) Not Detected (NotDetected) Influenza Type B (PCR) Not Detected (NotDetected) M. pneumoniae (PCR) Not Detected (NotDetected) Parainfluenza 1 (PCR) Not Detected (NotDetected) Parainfluenza 2 (PCR) Not Detected (NotDetected) Parainfluenza 3 (PCR) Not Detected (NotDetected) Parainfluenza 4 (PCR) Not Detected (NotDetected) RSV (PCR) Not Detected (NotDetected) Entero/Rhino (PCR) Not Detected (NotDetected) Administered Medications Nicardipine HCl 25 mg/ Sodium (Chloride) 250 mls @ 100 mls/hr IV .Q2H30M [facility]; Protocol Stop: 10/31/23 06:29 Last Titration: 10/01/23 07:18 Dose: 10 mg/hr, 100 mls/hr Documented By: Titration: 10/01/23 07:00 Dose: 7.5 mg/hr, 75 mls/hr Documented By: Admin: 10/01/23 06:45 Dose: 5 mg/hr, 50 mls/hr Documented By: SAULO Co-signed By: Discontinued Medications Promethazine HCl (Phenergan) 6.25 mg in 50.25 mls @ 201 mls/hr IV NOW STA Stop: 10/01/23 06:42 Last Infusion: 10/01/23 06:54 Dose: Infused Documented By: Admin: 10/01/23 06:36 Dose: 201 mls/hr Documented By: SAULO Labetalol HCl (Labetalol Hcl Iv 5 Mg/Ml 20ml) 10 mg IV NOW STA Stop: 10/01/23 07:32 Last Admin: 10/01/23 07:36 Dose: 10 mg Documented By: BRODERICK Co-signed By: JUNE Miscellaneous (Stat Iv Infusion Titration Per Protocol) 1 each N/A NOW STA Stop: 10/01/23 06:30 Last Admin: 10/01/23 06:47 Dose: 1 each Documented By: SAULO Ondansetron HCl (Ondansetron Inj 2 Mg/Ml 2 Ml Vial) 4 mg IV NOW STA Stop: 10/01/23 06:29 Last Admin: 10/01/23 06:37 Dose: 4 mg Documented By: SAULO Ondansetron HCl (Ondansetron Inj 2 Mg/Ml 2 Ml Vial) 4 mg IV NOW STA Stop: 10/01/23 07:44 Last Admin: 10/01/23 07:47 Dose: 4 mg Documented By: BRODERICK Imaging Data Radiologist's Impression: Chest X-Ray 10/01/23 06:00 SINGLE VIEW CHEST CLINICAL HISTORY: Atypical chest pain. FINDINGS: An AP, portable, upright chest radiograph is compared to chest x-ray and chest CT dated 09/27/2023. The cardiomediastinal silhouette is top normal for projection. Emphysema and chronic interstitial thickening is similar to previous. There is mild bibasilar scarring/atelectasis. No airspace consolidation or large pleural effusion is identified. No pneumothorax is seen. There are chronic/healed right-sided rib fractures. Fusion hardware is noted in the lower cervical spine. IMPRESSION: Emphysematous change with no active disease in the chest. ACT 112: Negative or not required by law. Electronically signed by: Armin Sylvester M.D. 10/01/2023 7:[address] 10/01/23 06:28 CT OF THE HEAD WITHOUT CONTRAST CLINICAL HISTORY: Headache. Hypertension. COMPARISON STUDY: Head CT and MRI of the brain September 27, 2023. Head CT November 16, 2022. CT DOSE: 781.9 mGy.cm TECHNIQUE: Helical axial images of the head were obtained without IV contrast. Automated exposure control was utilized for the study. A dose lowering technique was utilized adhering to the principles of ALARA. FINDINGS: No acute intracranial hemorrhage is present. Ventricular system is unremarkable. Basal cisterns are patent. There are no extra-axial collections. White matter hypodensities are similar to prior exam. Additional scattered cortical and subcortical hypodensities predominantly within the bilateral parietal and occipital lobes as well as the cerebellar hemispheres are similar to CT of MRI September 27, 2023. There are no calvarial fracture. Visualized portions of the sinuses and mastoid air cells are clear. IMPRESSION: 1. No acute intracranial hemorrhage. 2. Redemonstration of cortical and subcortical hypodensities predominantly within the bilateral parietal and occipital lobes and bilateral cerebellar hemispheres, similar to CT and MRI September 27, 2023. Although nonspecific, the findings favor posterior reversible encephalopathy syndrome (PRES). No significant change in appearance of the brain. ACT 112: Negative or not required by law. Electronically signed by: Flynn Shipley M.D. 10/01/2023 7:22 AM Discharge Plan Visit Data Chief Complaint: Hypertension Stated Complaint: HYPERTENSION ED Provider: Armin Tariq Discharge Problem: Hypertensive emergency, PRES (posterior reversible encephalopathy syndrome), Vomiting, Headache, Elevated troponin Patient Disposition: Admitted As Inpatient Condition: Serious Forms Stand Alone Forms: My [facility] Prescriptions Prescriptions: No Action pantoprazole 40 mg tablet,delayed release (DR/EC) 40 mg PO BID Qty: 180 2RF losartan 50 mg tablet 50 mg PO DAILY Qty: 90 3RF levetiracetam [Keppra] 1,000 mg tablet 1,000 mg PO BID Qty: 180 1RF ondansetron HCl 4 mg tablet 4 mg PO Q8H PRN (Reason: nausea and vomiting) Qty: 30 2RF clopidogrel [Plavix] 75 mg tablet 75 mg PO HS Qty: 90 1RF Patient Comments: PER DR MAYNARD OFFICE, TOLD TO STOP 7 DAYS BEFORE PROCEDURE amitriptyline 25 mg tablet 25 mg PO HS Qty: 90 1RF venlafaxine 150 mg capsule,extended release 24hr 150 mg PO QAM Qty: 90 1RF Eliquis 5 mg tablet 5 mg PO BID Qty: 60 2RF Combivent Respimat 20-100 mcg/actuation mist 1 puff inhalation Q6H PRN (Reason: SOB) carvedilol 25 mg tablet 25 mg PO BID Qty: 60 2RF Rx Instructions: must administer with a meal/food lorazepam 0.5 mg tablet 0.5 mg PO TID PRN (Reason: vertigo) Qty: 30 0RF Rx Instructions: central vertigo (DME) Auto Titrating CPAP Misc See Rx Instructions .ROUTE .MEDSUPPLY Qty: 1 0RF Rx Instructions: As directed Nightly ferrous sulfate 325 mg (65 mg iron) tablet 325 mg PO DAILY folic acid 1 mg tablet 1 mg PO DAILY Rx Instructions: 1mg by mouth once daily mecobalamin (vitamin B12) 1,000 mcg tablet,chewable 1,000 mcg PO DAILY fyqhoeschhcg-pfhr-bytjq acid 18-400 mg-mcg tablet 1 tab PO DAILY (DME) Medical Marijuana See Rx Instructions .Route .MEDSUPPLY Rx Instructions: pt states she has but not taken. clonidine HCl 0.1 mg tablet 0.1 mg PO BID Rx Instructions: Take if systolic BP is >160, diastolic BP >100- TAKE UP TO FOUR TIMES DAILY IF NEEDED BID cholecalciferol (vitamin D3) 50 mcg (2,000 unit) tablet 2,000 unit PO HS rosuvastatin [Crestor] 40 mg Tablet 40 mg PO HS Referrals Referrals: Teena Killian DO [Primary Care Provider] - Discharge Problem: Vomiting Qualifiers: Vomiting type: unspecified Nausea presence: with nausea Qualified Code(s): R 11.2 - Nausea with vomiting, unspecified Headache Qualifiers: Headache type: unspecified Headache chronicity pattern: acute headache I ntractability: not intractable Qualified Code(s): R51.9 - Headache, unspecified
[2023-10-01] MEDS: niCARdipine 25 MG in SODIUM CHLORIDE 0.9% 240 ML IV SCH (06:45)
[2023-10-01] MEDS: STAT IV Infusion **Titration per Protocol STA (06:47)
[2023-10-01 06:58] LABS: Albumin Globulin Ratio 1.6 (0.9-2); Albumin Level 4.6 gm/dl (3.4-5.0); BUN Creatinine Ratio 19.6 (10-20); Bilirubin,Total 0.4 mg/dl (0.2-1.0); Calcium 9.8 mg/dl (8.6-10.3); Creatinine Clr Calc Pharmacy 62.4 ml/min; Est GFR (African American) 66.7 ml/min; Est GFR (Non-African American) 57.6 ml/min; Globulin 2.9 gm/dl (2.5-4.0); Magnesium 1.8 mg/dl (1.7-2.4); Potassium 3.7 mmol/L (3.5-5.1); Total Protein 7.5 gm/dl (6.0-8.3)
[2023-10-01 07:05] LABS: INR 0.9 (0.9-1.1); Partial Thromboplastin Time 28 Seconds (21-31); Prothrombin Time 10.4 Seconds (9.0-12.0)
[2023-10-01 07:09] LABS: Troponin I High Sensitivity 756.3 pg/ml (0-14)
--- NOTE | 2023-10-01 07:24 | CT Scan Report ---
CT OF THE HEAD WITHOUT CONTRAST CLINICAL HISTORY: Headache. Hypertension. COMPARISON STUDY: Head CT and MRI of the brain September 27, 2023. Head CT November 16, 2022. CT DOSE: 781.9 mGy.cm TECHNIQUE: Helical axial images of the head were obtained without IV contrast. Automated exposure con trol was utilized for the study. A dose lowering technique was utilized adhering to the principles o f ALARA. FINDINGS: No acute intracranial hemorrhage is present. Ventricular system is unremarkable. Basal cist erns are patent. There are no extra-axial collections. White matter hypodensities are similar to prio r exam. Additional scattered cortical and subcortical hypodensities predominantly within the bilatera l parietal and occipital lobes as well as the cerebellar hemispheres are similar to CT of MRI Februar 2023. There are no calvarial fracture. Visualized portions of the sinuses and mastoid air cells are clear. IMPRESSION: 1. No acute intracranial hemorrhage. 2. Redemonstration of cortical and subcortical hypodensities predominantly within the bilateral parie nino and occipital lobes and bilateral cerebellar hemispheres, similar to CT and MRI September 27, 2023 . Although nonspecific, the findings favor posterior reversible encephalopathy syndrome (PRES). No si gnificant change in appearance of the brain. ACT 112: Negative or not required by law. Electronically signed by: Flynn Shipley M.D. 10/01/2023 7:22 AM
[2023-10-01] MEDS: LABETALOL HCL IV 5 MG/ML 20ML IV STA (07:36)
--- NOTE | 2023-10-01 07:47 | XRay Report ---
SINGLE VIEW CHEST CLINICAL HISTORY: Atypical chest pain. FINDINGS: An AP, portable, upright chest radiograph is compared to chest x-ray and chest CT dated 09/05. The cardiomediastinal silhouette is top normal for projection. Emphysema and chronic intersti tial thickening is similar to previous. There is mild bibasilar scarring/atelectasis. No airspace con solidation or large pleural effusion is identified. No pneumothorax is seen. There are chronic/healed right-sided rib fractures. Fusion hardware is noted in the lower cervical spine. IMPRESSION: Emphysematous change with no active disease in the chest. ACT 112: Negative or not required by law. Electronically signed by: Armin Sylvester M.D. 10/01/2023 7:46 AM
[2023-10-01 07:58] LABS: Adenovirus PCR Not Detected (NotDetected); Bordetella parapertussis PCR Not Detected (NotDetected); Bordetella pertussis PCR Not Detected (NotDetected); Chlamydia pneumoniae PCR Not Detected (NotDetected); Coronavirus 229E PCR Not Detected (NotDetected); Coronavirus CoV-2 (COVID19)PCR Not Detected (NotDetected); Coronavirus HKU1 PCR Not Detected (NotDetected); Coronavirus NL63 PCR Not Detected (NotDetected); Coronavirus OC43PCR Not Detected (NotDetected); Human Metapneumovirus PCR Not Detected (NotDetected); Influenza A PCR Not Detected (NotDetected); Influenza B PCR Not Detected (NotDetected); Mycoplasma pneumoniae PCR Not Detected (NotDetected); Parainfluenza Virus 1 PCR Not Detected (NotDetected); Parainfluenza Virus 2 PCR Not Detected (NotDetected); Parainfluenza Virus 3 PCR Not Detected (NotDetected); Parainfluenza Virus 4 PCR Not Detected (NotDetected); Respiratory Syncytial VirusPCR Not Detected (NotDetected); Rhinovirus/Enterovirus PCR Not Detected (NotDetected)
--- NOTE | 2023-10-01 07:59 | History & Physical Report ---
Date of Service October 01, 2023 Assessment & Plan (1) PRES (posterior reversible encephalopathy syndrome): Plan: Patient presents significantly hypertensive and CT imaging remains with findings consistent for PRES - Head CT is without blood, she is also without any neurological deficits or seizure activity. - This occurred quite rapidly per the patient report- as her CT scan is without large vessel ischemia and MRI from 09/27 is also without large infarcts making a co-existing cerebral vasoconstriction syndrome overlap unlikely- however as she is with 2 recent admissions for this may be reasonable to further evaluate with MRA - Will provide 2 GM of Magnesium now - It is possible as well that non-compliance as well as marijuana use is still playing a role - Cardene infusion for now- with goal MAP decrease by 20% and then to 30% over the next 24 hours- goal MAP 100-115 - Attempt to give oral Clonidine now as nausea/vomiting appears improved. - She does not appear infective at this time (2) Hypertensive emergency: Plan: As above - Non-compliance vs. substance use vs. other cause - Consider repeating renal Doppler for surveillance of her known left renal artery stenosis- appears last evaluated 11/24 without evidence of stenosis noted - unlikely the cause of her rapid escalation of blood pressure at this time- as she is able to be controlled - Pending blood pressure control- with history of PRES if BP allows consider adding in Nifedipine ER (3) Elevated troponin: Plan: Demand type II secondary to hypertension - No STEMI on ECG - no complaints of chest pain (4) Cerebellar stroke: Plan: History of - controll HTN - Continue secondary prevention (5) Hypomagnesemia: Plan: Replete- may have some component related to cerbral vasculature being overwhelmed for autocorrection - replete keep ~2.0 (6) Peripheral arterial disease: Plan: Stable - continue with Plavix/Eliquis (7) GERD (gastroesophageal reflux disease): Plan: Continue PPI - NPO until blood pressure better controlled (8) Obstructive sleep apnea: Plan: Patient has not received a device secondary to recall and has not followed up - consider repeating study and/or re-ordering device upon discharge. History of Present Illness Chief Complaint: headache Primary Care Provider: Teena Killian, DO 55 YOF with past medical history significant for: HTN, Seizures, PRES, Left Renal Artery Stenosis, cyclic vomiting syndrome, cannabinoid hyperemesis syndrome, CAD, HLD, CVA 2022, aortobifem bypass (Eliquis and Plavix) . Patient came to the EMD today for complaints of headache 10/10 associated with nausea and vomiting. This is patient's usual presentation when her blood pressure is elevated. She was noted to be significantly hypertensive again on arrival with BP 220s/130s MAPS 140s. Patient's headache is not associated with any vision changes, weakness, or seizures. Patient did have admission from 09/27/23-09/29/23 for hypertension and radiological evidence of PRESS. She was discharged on 09/29 without any changes to outpatient blood pressure regime. Patient denies any drug/marijuana use or alcohol use since discharge. She reports that she has been taking all of her medications as she is supposed to. Patient's blood press ure review from last admission has wide range of blood pressures 110-170s. On day of discharge, she was 100-110s/70s. In the EMD the patient had routine labs performed to include HsCTNI, CT scan of the head, ECG performed. She was given Zofran and Phenergan for her nausea/vomiting. She was initiated on a Cardene infusion, at time of evaluation this was at 10mg/hour. She has also just received 10mg IV labetalol on time of evaluation. Patient's head CT remains with findings consistent with PRES when compared to her imaging on 09/27. Her labs are with elevated HsCTNI and no other evidence of end organ dysfunction. Patient will be admitted to monitored bed, will attempt to get control of nausea/vomiting so that she may take her oral medications, specifically clonidine and ARB and attempt to wean of Cardene. Titration of medications will be to MAP Goal of 100-110 SBP 160's, DBP- 90. CODE: FULL Allergies Allergy/AdvReac Type Severity Reaction Status Date / Time napoles Allergy Intermediate Hives Verified 09/27/23 09:36 (green/hartman beans) doxycycline Allergy Intermediate Hives, Verified 09/27/23 09:36 vomiting Iodinated Contrast Media Allergy Intermediate Large Verified 09/27/23 09:36 hives, vomiting, "feeling hot" iodine Allergy Intermediate Hives, Verified 09/27/23 09:36 vomiting latex Allergy Intermediate Rash Verified 09/27/23 09:36 loperamide Allergy Intermediate Hives, Verified 09/27/23 09:36 vomiting meperidine Allergy Intermediate Hives, Verified 09/27/23 09:36 vomiting strawberry Allergy Intermediate Hives Verified 09/27/23 09:36 tomato Allergy Intermediate Hives Verified 09/27/23 09:36 prochlorperazine Allergy Mild N/V, Verified 09/27/23 09:36 itchiness Home Medications Medication Instructions Recorded Confirmed Type rosuvastatin 40 mg tablet (Crestor) 40 mg PO HS 09/11/21 10/01/23 History Auto Titrating CPAP #1 ea 07/15/22 09/30/23 Rx pantoprazole 40 mg tablet,delayed 40 mg PO BID #180 tabs 12/06/22 10/01/23 Rx release carvedilol 25 mg tablet 25 mg PO BID #60 tabs 01/01/23 10/01/23 Rx ipratropium 20 mcg-albuterol 100 1 puff inhalation Q6H PRN SOB 01/01/23 10/01/23 History mcg/actuation mist for inhalation (Combivent Respimat) lorazepam 0.5 mg tablet 0.5 mg PO TID PRN vertigo #30 tabs 01/01/23 10/01/23 Rx losartan 50 mg tablet 50 mg PO DAILY #90 tabs 03/05/23 10/01/23 Rx levetiracetam 1,000 mg tablet 1,000 mg PO BID #180 tabs 04/08/23 10/01/23 Rx (Keppra) clopidogrel 75 mg tablet (Plavix) 75 mg PO HS #90 tabs 06/02/23 10/01/23 Rx ondansetron HCl 4 mg tablet 4 mg PO Q8H PRN nausea and 06/02/23 10/01/23 Rx vomiting #30 tabs amitriptyline 25 mg tablet 25 mg PO HS #90 tabs 06/10/23 10/01/23 Rx venlafaxine 150 mg 150 mg PO QAM #90 caps 06/16/23 10/01/23 Rx capsule,extended release 24 hr apixaban 5 mg tablet (Eliquis) 5 mg PO BID #60 tabs 06/23/23 10/01/23 Rx Medical Marijuana 09/30/23 09/30/23 History cholecalciferol (vitamin D3) 50 2,000 unit PO HS 09/30/23 10/01/23 History mcg (2,000 unit) tablet clonidine HCl 0.1 mg tablet 0.1 mg PO BID 09/30/23 10/01/23 History ferrous sulfate 325 mg (65 mg 325 mg PO DAILY 09/30/23 10/01/23 History iron) tablet folic acid 1 mg tablet 1 mg PO DAILY 09/30/23 10/01/23 History mecobalamin (vitamin B12) 1,000 1,000 mcg PO DAILY 09/30/23 10/01/23 History mcg chewable tablet multivitamin-ferrous 1 tab PO DAILY 09/30/23 10/01/23 History fumarate-folic acid 18 mg-400 mcg tablet Past Med/Surg History Medical History Posterior reversible encephalopathy syndrome (PRES) Hypertensive urgency Elevated troponin Hypertensive emergency Hypokalemia Hypophosphatemia Tachycardia Postoperative nausea Seizures 2018 r/t hypertensive emergency > encephalopathy. last seizure 2019 Hematemesis History of COVID-19 03/18/22, p[facility], hospitalized day after diagnosis due to vomiting blood, discharged on 03/22/22; fever, vomiting, body chills and aches, diarrhea > resolved currently. 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 Maynard Cyclic vomiting syndrome no GI pathology on EGD, US, CT of abd/pelvis, celiac testing and GES per 04/2020 GI consult: biliary w/u and upper GI study recommended (upper GI study neg per d/c summary), cannabis cessation, continue Protonix and prn Zofran > currently controlled Obstructive sleep apnea mod-severe per PCP records (does not have device) GERD (gastroesophageal reflux disease) Renal artery stenosis following with Dr Maynard Seizure Proteinuria Cyclic vomiting syndrome Hypercalcemia HTN (hypertension) h/o multiple hypertensive urgency episodes, renal artery stenosis, following with cardiology and vascular surgery PRES (posterior reversible encephalopathy syndrome) has since caused seizures that started in 2018. following with PCP, last seizure per pt 08/2019 per PCP records Cannabinoid hyperemesis syndrome History of diverticulitis of colon Most recent 04/2022 Transient cerebrovascular ischemia Per records, pt unaware Anxiety disorder Cervical disc disorder Full ROM per pt Hyperlipidemia Multiple thyroid nodules Pulmonary emphysema well controlled per pt CAD (coronary artery disease) Mild-moderate non-obstructive CAD per 2017 cardiac cath Carotid stenosis < 50% stenosis B/L per US 12/16/18 Takotsubo cardiomyopathy 2017. Admitted [facility], full cardiac workup including cath. EF at the time 40%, now subsequent echos. Follows with Dr. Rodriguez NSTEMI (non-ST elevated myocardial infarction) 2017 Surgical History History of anesthesia reaction Low O2 sats during colonoscopy 04/2022 at [facility] and post-procedure elevated BP. Per post-op anesthesia progress note, O2 96-100% RA and "Pt has increased BP 2ndary to abdominal pain. Pt also has nausea w/ dry heaves. Pt to have CT scan per Dr Patten." History of tooth extraction History of cataract surgery bilat Status post surgery RLE thrombectomy S/P aortobifemoral bypass surgery Sep 2021 [facility] History of esophagogastroduodenoscopy (EGD) H/O cervical spine surgery ACDF C4-7 Dr. [place]: Grade 1 view, Bojorquez#2 and ETT#7.5 atraumatic x 1. No issues per anesthesia postop progress note. ROM WNL History of cardiac cath 2017 > no stents History of ovarian cystectomy History of hernia surgery right inguinal hernia repair History of hysterectomy Family History Father Family history of stomach cancer Malignant neoplasm of esophagus Stomach cancer Myocardial infarction Stroke Uncle Throat cancer Family history of cancer FAMILY HISTORY OF CANCER - UNCLE - V[place] FAMILY HISTORY OF CANCER - AUNT - ? KIND Grandmother (Maternal) Bone cancer Breast cancer Mother No problems noted. Brother Lung cancer Other Family history of diabetes mellitus No family history of adverse response to anesthesia No pertinent family history Denies family history of Colon cancer Ovarian cancer Prostate cancer Crohn's disease IBD (inflammatory bowel disease) Social History Smoking Status: Former smoker Tobacco Type: Cigarettes packs per day: 2; Smoking End Date: ten years ago.; Second Hand Exposure: No; Do You Dip or Chew Tobacco: No; Hx Alcohol Use: No Hx Substance Use: Yes Last Used Substance: Days (ago) Last Used Substance Other:: 4 days ago last used. Substance Use Type Other:: medical card > flower Preferred Language: Belarusian Communication Ability: Effective Visual Impairment: No Limitations Hearing Ability: Normal Recreation Programmer Required: No Beliefs That Will Affect Care: None marital status: Current Living Situation: Significant Other Current Living Situation Comment: [place] current occupational status: employed current occupation: [employer] Other Information That Helps Us Care for You: No Feels Safe at Home: Yes Safety Concerns: Feels Safe At This Time Childhood Exposure to Second-Hand Smoke: Yes Diet: regular Diet Comment: Regular caffeine: Yes (1 cup of coffee) during the past year weight has: other Dental Care, Regularly: No Physical Activity Frequency: Daily Physical Activity Frequency Comment: walking Seatbelt Use: always Sunscreen Use: Yes Assistive Devices: None Review of Systems Review of Systems: REVIEW OF SYSTEMS: Constitutional: (+) headache, No fever, sweats or chills Eyes: No diplopia, no worsening or blurred vision ENT: normal hearing, no trouble swallowing Respiratory: No cough, sputum, dyspnea at rest or on exertion Cardiovascular: No chest pain, tightness or palpitations Abdomen: (+) vomitting/nausea, No pain, diarrhea or constipation Musculoskeletal: No joint pain, calf pain, swelling Neurologic: No weakness, numbness/tingling, or balance problems Psychiatric: (+) anxiety or depression Skin: No rash or itch Physical Exam Physical Exam: PHYSICAL EXAM: General: awake, alert, no apparent distress Head: Normocephalic, atraumatic ENT: PERRLA, EOMI, no pharyngeal exudate, mucous membranes dry Neuro: AAO x 3, speech clear and appropriate, strength intact bilaterally 5/5, sensation intact and equal all extremities and dermatomes, no pronator drift, no nuchal rigidity Chest: equal rise and fall of the chest, no accessory muscle use, no heaves or thrills, Clear to auscultation, on room air, Cardiac: Regular rate and rhythm, telemetry reviewed- NSR, skin warm dry, cap refill <3 seconds, peripheral pulses +2 no JVD, S1/S2, no edema GI: NABS x 4 quadrants, soft, nontender to palpation, no rebound, guarding or tenderness : Spontaneously voiding, no pain, no CVA tenderness, Extremities: Normal inspection, no peripheral edema or erythema, calfs nontender to palpation Psych: Normal mood and affect Skin: no rash or erythema Results & Data Results & Data Vital Signs (Past 12 Hours) Vital Signs Temp Pulse Pulse Resp BP BP Pulse Ox 10/01/23 07:30 121 H 13 190/125 H 96 10/01/23 07:17 106 H 13 199/125 H 95 10/01/23 07:00 100 H 12 207/127 H 96 10/01/23 06:45 86 14 223/134 H 97 10/01/23 06:30 80 16 220/133 H 96 10/01/23 06:26 88 18 229/143 H 97 10/01/23 06:23 97 10/01/23 06:05 83 15 95 10/01/23 06:03 78 18 225/131 H 96 10/01/23 06:01 103 H 10/01/23 06:00 80 18 98 10/01/23 06:00 36.4 C L 91 H 26 H 199/132 H 97 O2 Del Method 10/01/23 07:30 Room Air 10/01/23 07:17 Room Air 10/01/23 07:00 Room Air 10/01/23 06:45 Room Air 10/01/23 06:30 Room Air 10/01/23 06:26 Room Air 10/01/23 06:23 Room Air 10/01/23 06:05 Room Air 10/01/23 06:03 Room Air 10/01/23 06:01 10/01/23 06:00 Room Air 10/01/23 06:00 Room Air Laboratory Results Abnormal lab results 10/01/23 10/01/23 Range/Units 06:20 07:20 Neut # (Auto) 6.87 H (1.40-6.50) K/uL Anion Gap 13 H (3-11) Glucose 191 H (70-99(Fasting)) mg/dl Troponin I High Sens 756.3 H* (0-14) pg/ml U Marijuana (THC) Screen Pos H (Neg) Diagnostic Findings Abnormal lab results 10/01/23 10/01/23 Range/Units 06:20 07:20 Neut # (Auto) 6.87 H (1.40-6.50) K/uL Anion Gap 13 H (3-11) Glucose 191 H (70-99(Fasting)) mg/dl Troponin I High Sens 756.3 H* (0-14) pg/ml U Marijuana (THC) Screen Pos H (Neg) Medications Administered Nicardipine HCl 25 mg/ Sodium (Chloride) 250 mls @ 100 mls/hr IV .Q2H30M [facility]; Protocol Stop: 10/31/23 06:29 Last Titration: 10/01/23 07:18 Dose: 10 mg/hr, 100 mls/hr Documented By: Titration: 10/01/23 07:00 Dose: 7.5 mg/hr, 75 mls/hr Documented By: Admin: 10/01/23 06:45 Dose: 5 mg/hr, 50 mls/hr Documented By: SAULO Co-signed By: Discontinued Medications Promethazine HCl (Phenergan) 6.25 mg in 50.25 mls @ 201 mls/hr IV NOW STA Stop: 10/01/23 06:42 Last Infusion: 10/01/23 06:54 Dose: Infused Documented By: Admin: 10/01/23 06:36 Dose: 201 mls/hr Documented By: SAULO Labetalol HCl (Labetalol Hcl Iv 5 Mg/Ml 20ml) 10 mg IV NOW STA Stop: 10/01/23 07:32 Last Admin: 10/01/23 07:36 Dose: 10 mg Documented By: BRODERCIK Co-signed By: JUNE Miscellaneous (Stat Iv Infusion Titration Per Protocol) 1 each N/A NOW STA Stop: 10/01/23 06:30 Last Admin: 10/01/23 06:47 Dose: 1 each Documented By: SAULO Ondansetron HCl (Ondansetron Inj 2 Mg/Ml 2 Ml Vial) 4 mg IV NOW STA Stop: 10/01/23 06:29 Last Admin: 10/01/23 06:37 Dose: 4 mg Documented By: SAULO Ondansetron HCl (Ondansetron Inj 2 Mg/Ml 2 Ml Vial) 4 mg IV NOW STA Stop: 10/01/23 07:44 Last Admin: 10/01/23 07:47 Dose: 4 mg Documented By: BRODERICK ECG Additional Comments: Normal sinus rhythm Incomplete right bundle branch block Left anterior fascicular block Cannot rule out Inferior infarct (masked by fascicular block?) , age undetermined Cannot rule out Anterior infarct , age undetermined Abnormal ECG Supervising Physician Co-Signing Physician Notes BANKING REPRESENTATIVE Supervision note: I have personally seen and examined the patient and discussed and verified the real points of the history and physical along with the plan with DARREN Loza with the following exceptions and/or additions: S-Pt here with headache, nausea/vomiting and severely elevated blood pressures. This is similar to previous admissions for the same thing. She has been using marijuana lately which seems to correlate with her symptoms. After blood pressure decreased throughout the day, she was feeling much better and was able to tolerate some khadijah isaías. No further headache O- Vitals reviewed Gen: AAOx3, NAD HEENT: Anicteric sclerae, EOMI CV: RRR no mgr nl S1S2 Pulm: CTAB no wcr Abd: +BS soft NT ND no masses or hernias Ext: No edema Skin: No rashes, warm/dry Neuro: Full strength throughout CBC, BMP, magnesium, troponin reviewed ECG reviewed CT scan head reviewed A/G-69-lehp-old female here with hypertensive emergency, intractable nausea/vomiting, and PRES, myocardial demand ischemia Admit to PCU on Cardene drip and wean off as tolerated Restart home medications Antiemetics as needed Counseled on cessation of marijuana use Consider addition of calcium channel blaine orally PG Care Time/CCT Total # of Minutes Spent Total Time Spent with Patient: Total time spent is greater than 50% in coordination of care (as documented) at patient's floor/unit and/or counseling patient: Coding Level of Care Code 46163 INT INP/OBS CARE 3/75MIN Medical Decision Making High Complexity Diagnoses PRES (posterior reversible encephalopathy syndrome) I67.83 Hypertensive emergency I16.1 Elevated troponin R79.89 Cerebellar stroke I63.9 Hypomagnesemia E83.42 Peripheral arterial disease I73.9 GERD (gastroesophageal reflux disease) K21.9 Obstructive sleep apnea G47.33
[2023-10-01 08:04] LABS: Amphetamines+Metham, Urine Neg (Neg); Barbiturates, Urine Neg (Neg); Benzodiazepine, Urine Neg (Neg); Cocaine, Urine Neg (Neg); MDMA (Ecstacy), Urine Neg (Neg); Marijuana, Urine Pos (Neg); Methadone, Urine Neg (Neg); Opiate, Urine Neg (Neg); Phencyclidine, Urine Neg (Neg)
[2023-10-01] MEDS: cloNIDine HCL 0.1 MG TAB PO ONE (08:35)
[2023-10-01] MEDS: MAGNESIUM SULFATE / D5W 1 GM/100 ML BAG IV SCH (08:37)
[2023-10-01] MEDS ORDERED: cloNIDine HCL 0.1 MG TAB PO PRN (08:48)
[2023-10-01] MEDS ORDERED: LABETALOL HCL IV 5 MG/ML 20ML IV PRN (08:48)
[2023-10-01] MEDS: PANTOprazole 40 MG in SYRINGE 0 ML IV ONE (09:22)
[2023-10-01] MEDS ORDERED: ACETAMINOPHEN 325 MG TAB PO PRN (10:06)
[2023-10-01] MEDS ORDERED: ONDANSETRON INJ 2 MG/ML 2 ML VIAL IV PRN (10:06)
[2023-10-01] MEDS ORDERED: IPRATROPIUM BROMIDE/ALBUTEROL respimat INH INH PRN (10:06)
[2023-10-01 10:13] VITALS: TEMP 99
[2023-10-01] MEDS ORDERED: ONDANSETRON 4 MG OD TAB PO PRN (10:24)
[2023-10-01] MEDS ORDERED: IPRATROPIUM BROMIDE HFA INHALER INH PRN (10:25)
[2023-10-01] MEDS ORDERED: ALBUTEROL HFA 8 GM INHALER INH PRN (10:25)
--- NOTE | 2023-10-01 10:34 | Electrocardiogram Report ---
Test Reason : Blood Pressure : / mmHG Vent. Rate : 081 BPM Atrial Rate : 081 BPM P-R Int : 184 ms QRS Dur : 096 ms QT Int : 414 ms P-R-T Axes : 025 -66 033 degrees QTc Int : 480 ms Normal sinus rhythm Incomplete right bundle branch block Left anterior fascicular block Poor R wave progression, consider anterior LA vs. lead placement vs. LVH Abnormal ECG When compared with ECG of 28-SEP-2023 11:08, Premature ventricular complexes are no longer Present Incomplete right bundle branch block is now Present Minimal criteria for Anterior infarct are now Present Confirmed by Boo Vega ([id number]) on 10/01/2023 10:34:00 AM Referred By: REFERRED SELF Confirmed By:Boo Vega
[2023-10-01] MEDS: LORazepam 0.5 MG TAB PO PRN (11:29)
--- NOTE | 2023-10-01 12:31 | Ultrasound Report ---
US duplex renal artery CLINICAL HISTORY: bilateral- eval for Renal artery stenosis COMPARISON STUDY: Doppler renal ultrasound November 12, 2022. CTA of the abdomen and pelvis September. TECHNIQUE: Color and duplex Doppler sonography of the abdominal aorta and renal arteries was performe d. FINDINGS: The right kidney measures 11 cm and the left measures 11.8 cm. There is no hydronephrosis. Renal echogenicity, size and cortical thickness are normal. Bilateral renal arteries and veins are pa tent. Peak systolic velocity within the abdominal aorta is 79 cm/s. Segmental waveforms within both k idneys are normal. There is an elevated peak systolic velocity of 242 cm/s within the proximal right renal artery. The renal to aortic ratio is 3.1. However, no renal artery stenosis was shown on CTA of September 27, 2023. Mildly elevated peak systolic velocity of 190 cm/s within the proximal left renal artery is noted. IMPRESSION: Mildly elevated velocities within the bilateral renal arteries. However, no definite son ographic evidence for renal artery stenosis. No stenosis identified on CTA of September 27, 2023. ACT 112: Negative or not required by law. Electronically signed by: Flynn Shipley M.D. 10/01/2023 12:30 PM
[2023-10-01] MEDS: LOSARTAN POTASSIUM 50 MG TAB PO SCH (13:09)
[2023-10-01] MEDS: FOLIC ACID 1 MG TAB PO SCH (13:23)
[2023-10-01] MEDS: FERROUS SULFATE 325 MG TAB PO SCH (13:23)
[2023-10-01] MEDS: carvediloL 25 MG TAB PO SCH (13:55)
[2023-10-01] MEDS: levETIRAcetam 500 MG TAB PO SCH (15:12)
[2023-10-01] MEDS: VENLAFAXINE HCL XR 150 MG CAPXR PO SCH (16:15)
[2023-10-01] MEDS: APIXABAN 5 MG TABLET PO SCH (16:15)
[2023-10-01] MEDS: cloNIDine HCL 0.1 MG TAB PO SCH (21:41)
[2023-10-01] MEDS: CLOPIDOGREL BISULFATE 75 MG TAB PO SCH (21:41)
[2023-10-01] MEDS: PANTOprazole 40 MG TAB PO SCH (21:41)
[2023-10-01] MEDS: AMITRIPTYLINE HCL 25 MG TAB PO SCH (21:41)
[2023-10-01] MEDS: ROSUVASTATIN CALCIUM 20 MG TAB PO SCH (21:41)
[2023-10-01 23:09] VITALS: O2SAT 93
[2023-10-02 05:36] LABS: BUN Creatinine Ratio 15.4 (10-20); Calcium 9.3 mg/dl (8.6-10.3); Creatinine Clr Calc Pharmacy 54.3 ml/min; Est GFR (African American) 56.4 ml/min; Est GFR (Non-African American) 48.7 ml/min; Magnesium 2.3 mg/dl (1.7-2.4); Potassium 2.9 mmol/L (3.5-5.1)
[2023-10-02 05:37] LABS: Basophils # (auto) 0.11 K/uL (0.00-0.20); Basophils % (auto) 0.9 %; Eosinophils # (auto) 0.18 K/uL (0.00-0.50); Eosinophils % (auto) 1.5 %; Hematocrit (blood only) 40.8 % (37.0-47.0); Hemoglobin 14.1 g/dl (12.0-16.0); Immature Granulocytes # (auto) 0.05 K/uL (0.01-0.20); Immature Granulocytes % (auto) 0.4 %; Lymphocytes # (auto) 4.01 K/uL (1.20-3.40); Lymphocytes % (auto) 33.5 %; Mean Corpuscular Hemoglobin 31.3 pg (25.0-34.0); Mean Corpuscular Hgb Conc 34.6 g/dL (32.0-36.0); Mean Corpuscular Volume 90.5 fL (80.0-100.0); Mean Platelet Volume 9.9 fL (9.4-12.4); Monocytes # (auto) 0.93 K/uL (0.11-0.59); Monocytes % (auto) 7.8 %; Neutrophils # (auto) 6.69 K/uL (1.40-6.50); Neutrophils % (auto) 55.9 %; Platelet Count 321 K/uL (130-400); RDW Coefficient of Variation 12.3 % (11.5-14.5); RDW Standard Deviation 40.2 fL (36.4-46.3); Red Blood Count 4.51 M/uL (4.20-5.40); White Blood Count 11.97 K/ul (4.8-10.8)
[2023-10-02 06:13] LABS: Troponin I High Sensitivity 312.2 pg/ml (0-14)
[2023-10-02] MEDS: POTASSIUM CHLORIDE / WTR 10 MEQ/100 ML PLCT IV SCH (08:53)
[2023-10-02 16:31] VITALS: BP 115/84; RESP 14
[2023-10-02 16:35] VITALS: PULSE 88
--- NOTE | 2023-10-02 16:35 | Discharge Summary ---
Discharge Summary Date of Service October 02, 2023 Notes For Next Care Provider Medication Changes From Visit None Admission HPI Per Admitting Provider 55 YOF with past medical history significant for: HTN, Seizures, PRES, Left Renal Artery Stenosis, cyclic vomiting syndrome, cannabinoid hyperemesis syndrome, CAD, HLD, CVA 2022, aortobifem bypass (Eliquis and Plavix) . Patient came to the EMD today for complaints of headache 10/10 associated with nausea and vomiting. This is patient's usual presentation when her blood pressure is elevated. She was noted to be significantly hypertensive again on arrival with BP 220s/130s MAPS 140s. Patient's headache is not associated with any vision changes, weakness, or seizures. Patient did have admission from 09/27/23-09/29/23 for hypertension and radiological evidence of PRESS. She was discharged on 09/29 without any changes to outpatient blood pressure regime. Patient denies any drug/marijuana use or alcohol use since discharge. She reports that she has been taking all of her medications as she is supposed to. Patient's blood pressure review from last admission has wide range of blood pressures 110-170s. On day of discharge, she was 100-110s/70s. In the EMD the patient had routine labs performed to include HsCTNI, CT scan of the head, ECG performed. She was given Zofran and Phenergan for her nausea/vomiting. She was initiated on a Cardene infusion, at time of evaluation this was at 10mg/hour. She has also just received 10mg IV labetalol on time of evaluation. Patient's head CT remains with findings consistent with PRES when compared to her imaging on 09/27. Her labs are with elevated HsCTNI and no other evidence of end organ dysfunction. Patient will be admitted to monitored bed, will attempt to get control of nausea/vomiting so that she may take her oral medications, specifically clonidine and ARB and attempt to wean of Cardene. Titration of medications will be to MAP Goal of 100-110 SBP 160's, DBP- 90. CODE: FULL Principal Dx & Hospital Course #1 = Principal Diagnosis (1) Hypertensive emergency: Has had recurrent episodes of such, with headache, elevated troponin. Possibly related to cyclic vomiting syndrome from cannabis use? She is compliant with her meds and has no trouble obtaining her medications Renal Doppler for surveillance of her known left renal artery stenosis- negative Was placed on Cardene gtt and given her usual BP meds, one dose of IV labetalol. BPs greatly improved over 2 days and all her symptoms resolved She was tolerating regular diet, no further headache, no CP COnsider adding on verapamil or nifedipine as outpatient for vasospasm at low dose to see if helps prevent future episodes (2) PRES (posterior reversible encephalopathy syndrome): Patient presents significantly hypertensive and CT imaging remains with findings consistent for PRES - Head CT is without blood, she is also without any neurological deficits or seizure activity. - This occurred quite rapidly per the patient report- as her CT scan is without large vessel ischemia and MRI from 09/27 is also without large infarcts making a co-existing cerebral vasoconstriction syndrome overlap unlikely Was given 2 GM of IV Magnesium and BP control as above (3) Elevated troponin: Demand type II secondary to hypertension - No STEMI on ECG - no complaints of chest pain (4) Cerebellar stroke: History of - control HTN - Continue secondary prevention (5) Peripheral arterial disease: Stable - continue with Plavix/Eliquis, Crestor (6) GERD (gastroesophageal reflux disease): Continue PPI (7) Obstructive sleep apnea: Patient has not received a device secondary to recall and has not followed up f/u with PCP Discharge Exam Constitutional WD/WN, vitals as above Respiratory normal respiratory effort, lungs clear to auscultation Cardiovascular RRR, no murmur, no edema Gastrointestinal (Abdomen) normal bowel sounds, soft, nontender, no hepatosplenomegaly Neurologic PERRL, EOMI, accommodation nl, no face palsy, no dysarthria Psychiatric A+Ox3, euthymic affect Updated Medication List Medication Instructions Recorded Confirmed Type rosuvastatin 40 mg tablet (Crestor) 40 mg PO HS 09/11/21 10/01/23 History Auto Titrating CPAP #1 ea 07/15/22 09/30/23 Rx pantoprazole 40 mg tablet,delayed 40 mg PO BID #180 tabs 12/06/22 10/01/23 Rx release carvedilol 25 mg tablet 25 mg PO BID #60 tabs 01/01/23 10/01/23 Rx ipratropium 20 mcg-albuterol 100 1 puff inhalation Q6H PRN SOB 01/01/23 10/01/23 History mcg/actuation mist for inhalation (Combivent Respimat) lorazepam 0.5 mg tablet 0.5 mg PO TID PRN vertigo #30 tabs 01/01/23 10/01/23 Rx losartan 50 mg tablet 50 mg PO DAILY #90 tabs 03/05/23 10/01/23 Rx levetiracetam 1,000 mg tablet 1,000 mg PO BID #180 tabs 04/08/23 10/01/23 Rx (Keppra) clopidogrel 75 mg tablet (Plavix) 75 mg PO HS #90 tabs 06/02/23 10/01/23 Rx ondansetron HCl 4 mg tablet 4 mg PO Q8H PRN nausea and 06/02/23 10/01/23 Rx vomiting #30 tabs amitriptyline 25 mg tablet 25 mg PO HS #90 tabs 06/10/23 10/01/23 Rx venlafaxine 150 mg 150 mg PO QAM #90 caps 06/16/23 10/01/23 Rx capsule,extended release 24 hr apixaban 5 mg tablet (Eliquis) 5 mg PO BID #60 tabs 06/23/23 10/01/23 Rx Medical Marijuana 09/30/23 09/30/23 History cholecalciferol (vitamin D3) 50 2,000 unit PO HS 09/30/23 10/01/23 History mcg (2,000 unit) tablet clonidine HCl 0.1 mg tablet 0.1 mg PO BID 09/30/23 10/01/23 History ferrous sulfate 325 mg (65 mg 325 mg PO DAILY 09/30/23 10/01/23 History iron) tablet folic acid 1 mg tablet 1 mg PO DAILY 09/30/23 10/01/23 History mecobalamin (vitamin B12) 1,000 1,000 mcg PO DAILY 09/30/23 10/01/23 History mcg chewable tablet multivitamin-ferrous 1 tab PO DAILY 09/30/23 10/01/23 History fumarate-folic acid 18 mg-400 mcg tablet Hospital Stay Data Consultations 10/01/23 07:22 ED Decision to Admit Stat Diagnostic Imagining Performed 10/01/23 06:28 CT head/brain wo con Stat 10/01/23 10:06 US doppler renal [US duplex renal artery] Routine Pending Results Patient Have Any Pending Studies at Discharge: No Discharge Instructions Given to Patient (Per Discharging Provider) Please continue on your usual blood pressure medications. Total Time Total Time Spent Total Time Spent (In Minutes): 35 min Coding Level of Care Code 24292 INP/OBS DISCH >30 MIN Diagnoses Hypertensive emergency I16.1 PRES (posterior reversible encephalopathy syndrome) I67.83 Elevated troponin R79.89 Cerebellar stroke I63.9 Peripheral arterial disease I73.9 GERD (gastroesophageal reflux disease) K21.9 Obstructive sleep apnea G47.33
[2023-10-02 20:28] LABS: Marijuana Quant, GCMS Urine 901 ng/mL (<5)
== END 2023-10-02 18:18 | disposition home or self-care (01) | DRG 304 ==
LOC: ED 05:54 → 1E 08:32

== ENCOUNTER 2024-05-24 06:09 | Inpatient (IN) ==
--- NOTE | 2024-05-24 06:28 | Emergency Department Note ---
Impression & Plan Hypertensive urgency, Acute upper gastrointestinal bleeding, Vomiting, Abdominal pain, Elevated troponin I level ED Provider Note NAME: ONEL MONTOYA AGE: 59 SEX: F : 1965 ARRIVES VIA: Ambulance INFORMANT: Patient, EMS ED PROVIDER(S): Boo Reed DO CHIEF COMPLAINT: Abdominal pain HPI: The patient is a 59-year-old female who presented to the emergency department for an evaluation of upper abdominal pain. The patient's pain began at approximately 2 AM this morning. She has been having problems with nausea as well as vomiting. She is also noticed some dark emesis. She denies having any dark stool but she has been experiencing diarrhea recently. She complains of pain that goes into her chest. The pain does not go into her back. She states it also goes into her neck. She was treated with Zofran as well as aspirin prior to arrival. She has had episodes of emesis since this time. ROS: See above HPI for pertinent positives & negatives. A total of 10 systems reviewed and were otherwise negative. PAST MEDICAL HISTORY: See Below PAST SURGICAL HISTORY: See Below FAMILY HISTORY: See Below SOCIAL HISTORY: See Below HOME MEDICATIONS: See Below ALLERGIES: See Below VITALS: See Below PHYSICAL EXAMINATION: GENERAL: The patient is awake and alert. The patient is very anxious and appears to be uncomfortable. EYES: The conjunctivae are clear. The pupils are round and reactive. EARS, NOSE, MOUTH AND THROAT: The nose is without any evidence of any deformity. NECK: The neck is nontender and supple. RESPIRATORY: Normal respiratory effort is noted there is no evidence of wheezing rhonchi or rales CARDIOVASCULAR: Regular rate and rhythm noted there no murmurs rubs or gallops normal S1 normal S2. GASTROINTESTINAL: The abdomen is distended. There is upper abdominal tenderness to palpation which is moderate. There is guarding in the epigastric region. MUSCULOSKELETAL/EXTREMITIES: There is no evidence of gross deformity full range of motion is noted in the hips and shoulders. SKIN: There is no obvious evidence of any rash. There are no petechiae, pallor or cyanosis noted. NEUROLOGIC: Patient is awake alert and oriented x3 strength is symmetric patellar reflexes are 2+ bilaterally MEDICAL DECISION MAKING: The patient is a 59-year-old female who presented to the emergency department for an evaluation of nausea vomiting. She was also found to be very hypertensive. She was treated with IV antihypertensives. She was also treated with IV fluids IV pain medication. She was given proton pump inhibitor as well as H2 blockers. She was reevaluated multiple times. She was somewhat improved on reevaluation. The patient's blood pressure continues to be elevated. She states that she no longer uses marijuana but only stopped a few days ago. I discussed patient's laboratory and radiographic studies with her. Given her ongoing symptoms as well as her findings I do not feel that she would be a good candidate for outpatient management. For this reason I will [facility] her condition [facility] Triage Nursing notes reviewed. Prior medical records reviewed Vital Signs: reviewed and remarkable for elevated blood pressure. Differential diagnosis: Etiologies such as appendicitis, diverticulitis, obstruction, inflammatory bowel disease, renal colic, PUD, biliary pathology, pancreatitis, mesenteric ischemia, aortic pathology, infections, genitourinary, UTI, perforated viscus, as well as others were entertained. ER treatment provided: See below Diagnostics interpreted by me: ECG: EKG was obtained in the emergency department. My interpretation is sinus rhythm at 73 bpm. First-degree AV block was noted. Nonspecific ST segment depressions were noted in the inferior and lateral leads. This was compared to a tracing from October 01, 2023. No changes were noted. Cardiac Monitoring: An order was placed for continuous cardiac monitoring. The monitor shows a rate of 68 bpm with sinus rhythm. Laboratory studies: As stated above and show below. Imaging studies: See below. Radiographic imaging was reviewed by myself Consultation(s): I discussed this case with Dr. Pereira who [facility] ED COURSE: Procedures: none Critical Care: I have personally spent greater than 55 minutes of critical care time in the direct management of this patient. This includes bedside care, interpretation of diagnostic studies, and testing, discussion with consultants, patient, and family members, and other required patient management activities. This 55 minutes is in excess of all separately billable procedures. Past Med/Surg History Problem List (Updated 05/24/24 @ 11:05 by Franck Pereira MD) Chest pain Elevated troponin I level (Acute) Abdominal pain (Acute) Vomiting (Acute) Acute upper gastrointestinal bleeding (Acute) Hypertensive urgency (Acute) PRES (posterior reversible encephalopathy syndrome) (Acute) Hypertensive emergency (Acute) Vertigo (Acute) Cerebellar stroke Occlusion of left iliac artery Marijuana dependence (Acute) Hx-TIA (transient ischemic attack) pt denies Diverticulosis Carpal tunnel syndrome Cervical spondylosis with myelopathy and radiculopathy Vitamin D deficiency Seizure disorder Hypomagnesemia (Acute) Upper gastrointestinal bleed 2021, resolved Cyclic vomiting syndrome no GI pathology on EGD, US, CT of abd/pelvis, celiac testing and GES per 04/2020 GI consult: biliary w/u and upper GI study recommended (upper GI study neg per d/c summary), cannabis cessation, continue Protonix and prn Zofran > currently controlled Peripheral arterial disease Bilateral external iliac artery occlusion with common femoral artery reconstitution-02/2021 aorta with runoff CTA, follows with Dr. Maynard Obstructive sleep apnea mod-severe per PCP records (does not have device) GERD (gastroesophageal reflux disease) Renal artery stenosis following with Dr Maynard HTN (hypertension) h/o multiple hypertensive urgency episodes, renal artery stenosis, following with cardiology and vascular surgery Carotid stenosis < 50% stenosis B/L per US 12/16/18 CAD (coronary artery disease) Mild-moderate non-obstructive CAD per 2017 cardiac cath Pulmonary emphysema well controlled per pt Multiple thyroid nodules Hyperlipidemia Anxiety disorder Medical History Hypertensive urgency, malignant Hypertensive urgency Elevated troponin Hypertensive emergency Hypokalemia Hypophosphatemia Tachycardia Postoperative nausea Seizures 2019 r/t hypertensive emergency > encephalopathy. last seizure 2019 Hematemesis History of COVID-19 03/18/22, pcr [employer], hospitalized day after diagnosis due to vomiting blood, discharged on 03/22/22; fever, vomiting, body chills and aches, diarrhea > resolved currently. Ischemia of right lower extremity Prediabetes diet controlled Depression Seizure Proteinuria Cyclic vomiting syndrome Hypercalcemia PRES (posterior reversible encephalopathy syndrome) has since caused seizures that started in 2019. following with PCP, last seizure per pt 08/2019 per PCP records Cannabinoid hyperemesis syndrome History of diverticulitis of colon Most recent 04/2022 Transient cerebrovascular ischemia Per records, pt unaware Cervical disc disorder Full ROM per pt Takotsubo cardiomyopathy 2017. Admitted [facility], full cardiac workup including cath. EF at the time 40%, now subsequent echos. Follows with Dr. Rodriguez NSTEMI (non-ST elevated myocardial infarction) 2017 Surgical History History of anesthesia reaction Low O2 sats during colonoscopy 04/2022 at [facility] and post-procedure elevated BP. Per post-op anesthesia progress note, O2 96-100% RA and "Pt has increased BP 2ndary to abdominal pain. Pt also has nausea w/ dry heaves. Pt to have CT scan per Dr Patten." History of tooth extraction History of cataract surgery bilat Status post surgery RLE thrombectomy S/P aortobifemoral bypass surgery Sep 2021 [facility] History of esophagogastroduodenoscopy (EGD) H/O cervical spine surgery ACDF C4-7 Dr. [place]: Grade 1 view, Bojorquez#2 and ETT#7.5 atraumatic x 1. No issues per anesthesia postop progress note. ROM WNL History of cardiac cath 2016 > no stents History of ovarian cystectomy History of hernia surgery right inguinal hernia repair History of hysterectomy Family History Father Family history of stomach cancer Malignant neoplasm of esophagus Stomach cancer Myocardial infarction Stroke Uncle Throat cancer Family history of cancer FAMILY HISTORY OF CANCER - UNCLE - VOCAL CORDS FAMILY HISTORY OF CANCER - AUNT - ? KIND Grandmother (Maternal) Bone cancer Breast cancer Mother No problems noted. Brother Lung cancer Other Family history of diabetes mellitus No family history of adverse response to anesthesia No pertinent family history Denies family history of Colon cancer Ovarian cancer Prostate cancer Crohn's disease IBD (inflammatory bowel disease) Social History Smoking Status: Former smoker Tobacco Type: Cigarettes packs per day: 2; Second Hand Exposure: No; Do You Dip or Chew Tobacco: No; Hx Alcohol Use: Yes Alcohol type: beer Hx Substance Use: Yes Last Used Substance: Days (ago) Last Used Substance Other:: 4 days ago last used. 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 [employer] Feels Safe at Home: Yes Childhood Exposure to Second-Hand Smoke: Yes Diet: regular Diet Comment: Regular caffeine: Yes (1 cup of coffee) during the past year weight has: other Dental Care, Regularly: No Physical Activity Frequency: Daily Physical Activity Frequency Comment: walking Seatbelt Use: always Sunscreen Use: Yes Assistive Devices: Denture - Upper and Denture - Lower Allergies Allergies Allergy/AdvReac Type Severity Reaction Status Date / Time napoles Allergy Intermediate Hives Verified 05/24/24 09:02 (green/hartman beans) doxycycline Allergy Intermediate Hives, Verified 05/24/24 09:02 vomiting Iodinated Contrast Media Allergy Intermediate Large Verified 05/24/24 09:02 hives, vomiting, "feeling hot" iodine Allergy Intermediate Hives, Verified 05/24/24 09:02 vomiting latex Allergy Intermediate Rash Verified 05/24/24 09:02 loperamide Allergy Intermediate Hives, Verified 05/24/24 09:02 vomiting meperidine Allergy Intermediate Hives, Verified 05/24/24 09:02 vomiting strawberry Allergy Intermediate Hives Verified 05/24/24 09:02 tomato Allergy Intermediate Hives Verified 05/24/24 09:02 prochlorperazine Allergy Mild N/V, Verified 05/24/24 09:02 itchiness Home Meds Home Medications Medication Instructions Recorded Confirmed ipratropium 20 mcg-albuterol 100 1 puff inhalation Q6H PRN SOB 01/01/23 05/24/24 mcg/actuation mist for inhalation (Combivent Respimat) Medical Marijuana 09/30/23 10/08/23 cholecalciferol (vitamin D3) 50 2,000 unit PO HS 09/30/23 05/24/24 mcg (2,000 unit) tablet clonidine HCl 0.1 mg tablet 0.1 mg PO BID 09/30/23 05/24/24 ferrous sulfate 325 mg (65 mg 325 mg PO DAILY 09/30/23 05/24/24 iron) tablet folic acid 1 mg tablet 1 mg PO DAILY 09/30/23 05/24/24 mecobalamin (vitamin B12) 1,000 1,000 mcg PO DAILY 09/30/23 05/24/24 mcg chewable tablet multivitamin-ferrous 1 tab PO DAILY 09/30/23 05/24/24 fumarate-folic acid 18 mg-400 mcg tablet Previous Rx's Medication Instructions Recorded Auto Titrating CPAP #1 ea 07/15/22 carvedilol 25 mg tablet 25 mg PO BID #60 tabs 01/01/23 rosuvastatin 40 mg tablet (Crestor) 40 mg PO HS #90 tabs 10/10/23 levetiracetam 1,000 mg tablet 1,000 mg PO BID #180 tabs 10/13/23 (Keppra) pantoprazole 40 mg tablet,delayed 40 mg PO BID #180 tabs 10/31/23 release ondansetron HCl 4 mg tablet 4 mg PO Q8H PRN nausea and 11/19/23 vomiting #30 tabs amitriptyline 25 mg tablet 25 mg PO HS #90 tabs 12/15/23 clopidogrel 75 mg tablet (Plavix) 75 mg PO HS #90 tabs 12/23/23 venlafaxine 150 mg 150 mg PO QAM #90 caps 01/30/24 capsule,extended release 24 hr losartan 50 mg tablet 50 mg PO DAILY #90 tabs 03/03/24 apixaban 5 mg tablet (Eliquis) 5 mg PO BID #180 tabs 04/06/24 Results & Data (ED) Vital Signs Vital Signs - 24 hr 05/24/24 05:55 05/24/24 05:55 05/24/24 06:18 Temperature 36.7 C Temperature Source Oral Pulse Rate 80 80 Pulse Rate [Right] Pulse Rate from SpO2 Sensor Pulse Rhythm Regular Pulse Strength Normal Respiratory Rate 19 Respiratory Effort / Characteristics Non-Labored Spontaneous Respiratory Depth Normal Respiratory Pattern Regular Blood Pressure 217/132 H Blood Pressure [Right Arm] Blood Pressure Mean 160 Blood Pressure Mean [Right Arm] Blood Pressure Position Sitting Blood Pressure Position [Right Arm] Pulse Oximetry 97 Oxygen Delivery Method Room Air Room Air Sepsis Recent Fever Within 48 Hours No Sepsis New/Unexplained Change in Mental Status No Sepsis Action Taken by Nursing No Action Required 05/24/24 06:59 05/24/24 07:00 05/24/24 07:30 Temperature Temperature Source Pulse Rate 70 80 79 Pulse Rate [Right] Pulse Rate from SpO2 Sensor 70 Pulse Rhythm Regular Pulse Strength Respiratory Rate 16 13 Respiratory Effort / Characteristics Respiratory Depth Respiratory Pattern Blood Pressure 224/128 H 217/125 H Blood Pressure [Right Arm] Blood Pressure Mean 178 Blood Pressure Mean [Right Arm] Blood Pressure Position Blood Pressure Position [Right Arm] Pulse Oximetry 97 98 Oxygen Delivery Method Room Air Sepsis Recent Fever Within 48 Hours Sepsis New/Unexplained Change in Mental Status Sepsis Action Taken by Nursing 05/24/24 07:45 05/24/24 08:36 05/24/24 08:36 Temperature Temperature Source Pulse Rate 73 76 Pulse Rate [Right] 78 Pulse Rate from SpO2 Sensor 72 73 Pulse Rhythm Pulse Strength Respiratory Rate 16 19 12 Respiratory Effort / Characteristics Respiratory Depth Normal Respiratory Pattern Blood Pressure 201/134 H 198/116 H Blood Pressure [Right Arm] 198/116 H Blood Pressure Mean 162 154 Blood Pressure Mean [Right Arm] 143 Blood Pressure Position Blood Pressure Position [Right Arm] Lying Pulse Oximetry 97 95 97 Oxygen Delivery Method Room Air Sepsis Recent Fever Within 48 Hours Sepsis New/Unexplained Change in Mental Status Sepsis Action Taken by Nursing 05/24/24 09:00 05/24/24 09:30 05/24/24 09:32 Temperature Temperature Source Pulse Rate 83 81 78 Pulse Rate [Right] Pulse Rate from SpO2 Sensor 84 80 Pulse Rhythm Pulse Strength Respiratory Rate 14 16 Respiratory Effort / Characteristics Respiratory Depth Respiratory Pattern Blood Pressure 207/127 H 216/133 H 216/133 H Blood Pressure [Right Arm] Blood Pressure Mean 170 188 Blood Pressure Mean [Right Arm] Blood Pressure Position Blood Pressure Position [Right Arm] Pulse Oximetry 96 96 Oxygen Delivery Method Room Air Sepsis Recent Fever Within 48 Hours Sepsis New/Unexplained Change in Mental Status Sepsis Action Taken by Nursing 05/24/24 10:00 Temperature Temperature Source Pulse Rate 79 Pulse Rate [Right] Pulse Rate from SpO2 Sensor 80 Pulse Rhythm Pulse Strength Respiratory Rate 13 Respiratory Effort / Characteristics Respiratory Depth Respiratory Pattern Blood Pressure 213/142 H Blood Pressure [Right Arm] Blood Pressure Mean 174 Blood Pressure Mean [Right Arm] Blood Pressure Position Blood Pressure Position [Right Arm] Pulse Oximetry 95 Oxygen Delivery Method Sepsis Recent Fever Within 48 Hours Sepsis New/Unexplained Change in Mental Status Sepsis Action Taken by Half-Way Medications Current Medication List: was personally reviewed by me Laboratory Data Attestation: I reviewed the patient's lab results. 05/24/24 12:00 05/24/24 06:16 Lab Results 05/24/24 05/24/24 05/24/24 Range/Units 06:16 06:37 08:43 WBC 11.41 H (4.8-10.8) K/ul RBC 5.21 (4.20-5.40) M/uL Hgb 15.9 (12.0-16.0) g/dl Hct 48.2 H (37.0-47.0) % MCV 92.5 (80.0-100.0) fL MCH 30.5 (25.0-34.0) pg MCHC 33.0 (32.0-36.0) g/dL RDW Std Deviation 42.3 (36.4-46.3) fL RDW Coeff of Jose Luis 12.3 (11.5-14.5) % Plt Count 337 (130-400) K/uL MPV 10.6 (9.4-12.4) fL Immature Gran % (Auto) 0.4 % Neut % (Auto) 59.2 % Lymph % (Auto) 28.6 % [place] % (Auto) 6.7 % Eos % (Auto) 3.8 % Baso % (Auto) 1.3 % Neut # (Auto) 6.76 H (1.40-6.50) K/uL Lymph # (Auto) 3.26 (1.20-3.40) K/uL [place] # (Auto) 0.76 H (0.11-0.59) K/uL Eos # (Auto) 0.43 (0.00-0.50) K/uL Baso # (Auto) 0.15 (0.00-0.20) K/uL Immature Gran # (Auto) 0.05 (0.01-0.20) K/uL PT 10.4 (9.0-12.0) Seconds INR 1.0 (0.9-1.1) APTT 28 (21-31) Seconds PTT Ratio 1.0 Sodium 141 (136-145) mmol/L Potassium 3.7 (3.5-5.1) mmol/L Chloride 103 (98-107) mmol/L Carbon Dioxide 29 (21-32) mmol/L Anion Gap 9 (3-11) BUN 20 (6-23) mg/dl Creatinine 0.99 (0.6-1.2) mg/dl Est Cr Clr Drug Dosing 65.9 ml/min eGFR 66.09 BUN/Creatinine Ratio 20.2 H (10-20) Glucose 197 H (70-99(Fasting)) mg/dl Calcium 10.3 (8.6-10.3) mg/dl Total Bilirubin 0.4 (0.2-1.0) mg/dl AST 24 (13-39) U/L ALT 25 (7-52) U/L Alkaline Phosphatase 112 H (34-104) U/L Troponin I High Sens 283.7 H* (0-14) pg/ml Total Protein 8.0 (6.0-8.3) gm/dl Albumin 4.8 (3.4-5.0) gm/dl Globulin 3.2 (2.5-4.0) gm/dl Albumin/Globulin Ratio 1.5 (0.9-2) Lipase 40 (11-82) U/L Procalcitonin 0.04 (0-0.5) ng/ml Urine Color Yellow Urine Appearance Clear (Clear) Urine pH 7.0 (4.5-7.5) Ur Specific [place] 1.022 (1.000-1.030) Urine Protein 1+ H (Negative) Urine Glucose (UA) Negative (Negative) Urine Ketones Negative (Negative) Urine Blood 2+ H (Negative) Urine Nitrite Negative (Negative) Urine Bilirubin Negative (Negative) Urine Urobilinogen Negative (Negative) Ur Leukocyte Esterase Negative (Negative) Urine WBC (Auto) 0-5 (0-5) /hpf Urine RBC (Auto) 11-20 H (0-2) /hpf U Hyaline Cast (Auto) 0-2 (0-2) /lpf U Epithel Cells (Auto) 0-2 (0-2) /hpf Urine Bacteria (Auto) None Seen (None Seen) Gastric Fluid pH 3 Gastric Occult Blood Positive A (Negative) 05/24/24 Range/Units 09:02 WBC (4.8-10.8) K/ul RBC (4.20-5.40) M/uL Hgb (12.0-16.0) g/dl Hct (37.0-47.0) % MCV (80.0-100.0) fL MCH (25.0-34.0) pg MCHC (32.0-36.0) g/dL RDW Std Deviation (36.4-46.3) fL RDW Coeff of Jose Luis (11.5-14.5) % Plt Count (130-400) K/uL MPV (9.4-12.4) fL Immature Gran % (Auto) % Neut % (Auto) % Lymph % (Auto) % [place] % (Auto) % Eos % (Auto) % Baso % (Auto) % Neut # (Auto) (1.40-6.50) K/uL Lymph # (Auto) (1.20-3.40) K/uL [place] # (Auto) (0.11-0.59) K/uL Eos # (Auto) (0.00-0.50) K/uL Baso # (Auto) (0.00-0.20) K/uL Immature Gran # (Auto) (0.01-0.20) K/uL PT (9.0-12.0) Seconds INR (0.9-1.1) APTT (21-31) Seconds PTT Ratio Sodium (136-145) mmol/L Potassium (3.5-5.1) mmol/L Chloride (98-107) mmol/L Carbon Dioxide (21-32) mmol/L Anion Gap (3-11) BUN (6-23) mg/dl Creatinine (0.6-1.2) mg/dl Est Cr Clr Drug Dosing ml/min eGFR BUN/Creatinine Ratio (10-20) Glucose (70-99(Fasting)) mg/dl Calcium (8.6-10.3) mg/dl Total Bilirubin (0.2-1.0) mg/dl AST (13-39) U/L ALT (7-52) U/L Alkaline Phosphatase (34-104) U/L Troponin I High Sens 286.9 H* (0-14) pg/ml Total Protein (6.0-8.3) gm/dl Albumin (3.4-5.0) gm/dl Globulin (2.5-4.0) gm/dl Albumin/Globulin Ratio (0.9-2) Lipase (11-82) U/L Procalcitonin (0-0.5) ng/ml Urine Color Urine Appearance (Clear) Urine pH (4.5-7.5) Ur Specific [place] (1.000-1.030) Urine Protein (Negative) Urine Glucose (UA) (Negative) Urine Ketones (Negative) Urine Blood (Negative) Urine Nitrite (Negative) Urine Bilirubin (Negative) Urine Urobilinogen (Negative) Ur Leukocyte Esterase (Negative) Urine WBC (Auto) (0-5) /hpf Urine RBC (Auto) (0-2) /hpf U Hyaline Cast (Auto) (0-2) /lpf U Epithel Cells (Auto) (0-2) /hpf Urine Bacteria (Auto) (None Seen) Gastric Fluid pH Gastric Occult Blood (Negative) Administered Medications Discontinued Medications Carvedilol (Carvedilol 25 Mg Tab) 25 mg PO NOW STA Stop: 05/24/24 10:22 Last Admin: 05/24/24 11:06 Dose: 25 mg Documented By: SRSampson Diphenhydramine HCl (Diphenhydramine 50 Mg/Ml Vial) 50 mg IV ONE ONE Stop: 05/24/24 06:26 Last Admin: 05/24/24 07:13 Dose: 50 mg Documented By: SRL Hydralazine HCl (Hydralazine Hcl 20 Mg/Ml Vial) 10 mg IV NOW STA Stop: 05/24/24 10:12 Last Admin: 05/24/24 10:25 Dose: 10 mg Documented By: SRSampson Pantoprazole Sodium (Protonix) 40 mg in 10 mls @ 5 mls/min IV NOW ONE Stop: 05/24/24 06:25 Last Admin: 05/24/24 06:46 Dose: 5 mls/min Documented By: PAG Famotidine (Pepcid 20mg Iv Push) 20 mg in 5 mls @ 2.5 mls/min IV NOW STA Stop: 05/24/24 06:25 Last Admin: 05/24/24 06:46 Dose: 2.5 mls/min Documented By: PAG Levetiracetam 1,000 mg/ Sodium (Chloride) 110 mls @ 440 mls/hr IV NOW STA Stop: 05/24/24 10:41 Last Infusion: 05/24/24 11:21 Dose: Infused Documented By: Admin: 05/24/24 11:06 Dose: 440 mls/hr Documented By: SRSampson Ioversol (Optiray 320 125ml) 112 ml IV ONCE ONE Stop: 05/24/24 08:28 Last Admin: 05/24/24 08:27 Dose: 112 ml Documented By: TAYLER Labetalol HCl (Labetalol Hcl Iv 5 Mg/Ml 20ml) 10 mg IV NOW STA Stop: 05/24/24 07:26 Last Admin: 05/24/24 07:30 Dose: 10 mg Documented By: J CARLOS Labetalol HCl (Labetalol Hcl Iv 5 Mg/Ml 20ml) 10 mg IV NOW STA Stop: 05/24/24 09:19 Last Admin: 05/24/24 09:32 Dose: 10 mg Documented By: SRL Losartan Potassium (Losartan Potassium 50 Mg Tab) 50 mg PO ONE STA Stop: 05/24/24 10:22 Last Admin: 05/24/24 11:06 Dose: 50 mg Documented By: SRL Methylprednisolone (Methylprednisolone 125 Mg/2 Ml Vial) 40 mg IV NOW ONE Stop: 05/24/24 06:26 Last Admin: 05/24/24 07:13 Dose: 40 mg Documented By: SRL Morphine Sulfate (Morphine Sulfate 4 Mg/Ml 1 Ml Carp\\Vial) 4 mg IV Q15M PRN PRN Reason: Pain Stop: 06/07/24 06:23 Last Admin: 05/24/24 06:45 Dose: 4 mg Documented By: PAG Ondansetron HCl (Ondansetron Inj 2 Mg/Ml 2 Ml Vial) 4 mg IV NOW STA Stop: 05/24/24 06:25 Last Admin: 05/24/24 06:45 Dose: 4 mg Documented By: PAG Ondansetron HCl (Ondansetron Inj 2 Mg/Ml 2 Ml Vial) 4 mg IV Q4H STA Stop: 05/24/24 10:22 Last Admin: 05/24/24 11:06 Dose: 4 mg Documented By: SRL Imaging Data Attestation: I personally reviewed and interpreted this imaging study as follows: My Impression: CT the abdomen and pelvis was obtained in the emergency department. My interpretation is no free air or signs of bowel obstruction, final report below. CT the chest was obtained in the emergency department. My interpretation is no free air or signs of infiltrate, final report below. Radiologist's Impression: Abdomen/Pelvis CT 05/24/24 06:24 CT OF THE ABDOMEN AND PELVIS WITH CONTRAST CLINICAL HISTORY: Abdominal pain and vomiting. COMPARISON STUDY: CTA of the abdomen and pelvis November 26, 2023. TECHNIQUE: Following IV administration of 112 mL of Optiray, axial images of the abdomen and pelvis were obtained from the lung bases to the proximal femurs. Images were reviewed in the axial, sagittal, and coronal planes. IV contrast was administered without complication. Automated exposure control was utilized for the study. A dose lowering technique was utilized adhering to the principles of ALARA. FINDINGS: No pneumatosis, free air or portal venous gas is present. There is hepatic steatosis. There are no hepatic lesions. No biliary or pancreatic ductal dilatation is present. There is no peripancreatic or pericholecystic infiltration. Spleen, adrenal glands, kidneys and pancreas are normal. There is no hydronephrosis. There are stable postoperative findings following aortobifemoral bypass. 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 A femoral to femoral bypass graft is patent. Fluid collection adjacent to the bypass graft is unchanged since CTA of September 27, 2023. Postoperative appearance is unchanged. Colonic diverticulosis without evidence acute diverticulitis. The caliber and wall thickness of small and large bowel are normal. There are no findings to suggest acute appendicitis. There is no lymphadenopathy. No acute fractures are identified within the visualized skeletal structures. 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 IMPRESSION: 1. No acute process within the abdomen or pelvis. 2. Normal appendix. No bowel obstruction. No bowel wall thickening. 3. Colonic diverticulosis. No evidence for acute diverticulitis. 4. Stable postoperative findings following aortobifemoral and femoral to femoral bypass grafting. Patent femoral-femoral bypass graft with a stable perigraft fluid collection since CTA of November 26, 2023. ACT 112: Negative or not required by law. Electronically signed by: Flynn Shipley M.D. 05/24/2024 8:56 AM Chest X-Ray 05/24/24 06:24 XR chest 1V portable HISTORY: 59 years-old Female chest pain COMPARISON: 10/01/2023 TECHNIQUE: AP view of the chest FINDINGS: Cardiac silhouette is normal in size. No pneumothorax or pleural effusion. Cervical spinal fusion hardware. Chronic fracture of the lateral right seventh rib. Lungs appear clear. IMPRESSION: No acute process. ACT 112: Negative or not required by law. The above report was generated using voice recognition software. It may contain grammatical, syntax or spelling errors. Electronically signed by: Álvaro Jimenez M.D. 05/24/2024 7:34 AM Chest CTA 05/24/24 07:19 CT ANGIOGRAPHY OF THE CHEST, PULMONARY EMBOLUS PROTOCOL CLINICAL HISTORY: Chest pain. Evaluate for pulmonary embolus. COMPARISON STUDY: Chest CT September 27, 2023. Chest radiograph performed earlier today. TECHNIQUE: Following IV administration of 112 mL of Optiray, helical axial images of the chest were obtained utilizing the pulmonary embolus protocol. Maximal intensity projections and sagittal and coronal reformats were viewed on an independent 3D workstation. IV contrast was administered without complication. Automated exposure control was utilized for the study. A dose lowering technique was utilized adhering to the principles of ALARA. CT DOSE: 2313.5 mGy.cm FINDINGS: No pulmonary emboli are identified. The caliber of the thoracic aorta is normal. Opacification of the thoracic aorta is suboptimal but no thoracic aortic dissection is present. The size of the heart is normal. Is no pericardial effusion. No enlarged axillary, mediastinal or hilar lymph nodes are present. Central airways are patent. There is no pneumothorax or pleural effusion. There is moderate emphysema. Dependent groundglass opacities within the lungs are present. There are no suspicious pulmonary nodules. IMPRESSION: 1. No pulmonary emboli identified. 2. Emphysema. 3. Dependent groundglass opacities within the lungs. Atelectasis is favored. However, pulmonary edema or less likely an infectious process could appear similar. ACT 112: Negative or not required by law. Electronically signed by: Flynn Shipley M.D. 05/24/2024 8:50 AM Discharge Plan Visit Data Chief Complaint: Cardiac Assessment ED Provider: Boo Reed Discharge Problem: Hypertensive urgency, Acute upper gastrointestinal bleeding, Vomiting, Abdominal pain, Elevated troponin I level Patient Disposition: Admitted As Inpatient Discharge Instructions Interventions: ED Discharge Assessment Last Done: 05/24/24 12:14 Discharge Problem: Vomiting Qualifiers: Vomiting type: unspecified Nausea presence: with nausea Qualified Code(s): R 11.2 - Nausea with vomiting, unspecified Abdominal pain Qualifiers: Abdominal location: epigastric Qualified Code(s): R10.13 - Epigastric pain
[2024-05-24] MEDS: ONDANSETRON INJ 2 MG/ML 2 ML VIAL IV STA ×2 (06:45→11:06)
[2024-05-24] MEDS: MoRPHine SULFATE 4 MG/ML 1 ML CARP\\VIAL IV PRN (06:45)
[2024-05-24] MEDS: FAMOTIDINE 20MG IV PUSH 20 MG/5 ML SYR IV STA (06:46)
[2024-05-24] MEDS: PANTOprazole 40 MG/10 ML SYR IV ONE (06:46)
[2024-05-24 06:57] LABS: Basophils # (auto) 0.15 K/uL (0.00-0.20); Basophils % (auto) 1.3 %; Eosinophils # (auto) 0.43 K/uL (0.00-0.50); Eosinophils % (auto) 3.8 %; Hematocrit (blood only) 48.2 % (37.0-47.0); Hemoglobin 15.9 g/dl (12.0-16.0); Immature Granulocytes # (auto) 0.05 K/uL (0.01-0.20); Immature Granulocytes % (auto) 0.4 %; Lymphocytes # (auto) 3.26 K/uL (1.20-3.40); Lymphocytes % (auto) 28.6 %; Mean Corpuscular Hemoglobin 30.5 pg (25.0-34.0); Mean Corpuscular Volume 92.5 fL (80.0-100.0); Mean Platelet Volume 10.6 fL (9.4-12.4); Monocytes # (auto) 0.76 K/uL (0.11-0.59); Monocytes % (auto) 6.7 %; Neutrophils # (auto) 6.76 K/uL (1.40-6.50); Neutrophils % (auto) 59.2 %; Platelet Count 337 K/uL (130-400); RDW Coefficient of Variation 12.3 % (11.5-14.5); RDW Standard Deviation 42.3 fL (36.4-46.3); Red Blood Count 5.21 M/uL (4.20-5.40); White Blood Count 11.41 K/ul (4.8-10.8)
[2024-05-24 07:06] LABS: Albumin Globulin Ratio 1.5 (0.9-2); Albumin Level 4.8 gm/dl (3.4-5.0); BUN Creatinine Ratio 20.2 (10-20); Bilirubin,Total 0.4 mg/dl (0.2-1.0); Calcium 10.3 mg/dl (8.6-10.3); Creatinine Clr Calc Pharmacy 65.9 ml/min; Globulin 3.2 gm/dl (2.5-4.0); Potassium 3.7 mmol/L (3.5-5.1)
[2024-05-24] MEDS: diphenhydrAMINE 50 MG/ML VIAL IV ONE (07:13)
[2024-05-24] MEDS: methylPREDNISolone 125 MG/2 ML VIAL IV ONE (07:13)
[2024-05-24 07:19] LABS: Partial Thromboplastin Time 28 Seconds (21-31); Prothrombin Time 10.4 Seconds (9.0-12.0)
[2024-05-24 07:21] LABS: Troponin I High Sensitivity 283.7 pg/ml (0-14)
[2024-05-24] MEDS: LABETALOL HCL IV 5 MG/ML 20ML IV STA ×2 (07:30→09:32)
--- NOTE | 2024-05-24 07:36 | XRay Report ---
XR chest 1V portable HISTORY: 59 years-old Female chest pain COMPARISON: 10/01/2023 TECHNIQUE: AP view of the chest FINDINGS: Cardiac silhouette is normal in size. No pneumothorax or pleural effusion. Cervical spinal fusion hannah dware. Chronic fracture of the lateral right seventh rib. Lungs appear clear. IMPRESSION: No acute process. ACT 112: Negative or not required by law. The above report was generated using voice recognition software. It may contain grammatical, syntax o r spelling errors. Electronically signed by: Álvaro Jimenez M.D. 05/24/2024 7:34 AM
[2024-05-24 07:45] LABS: Gastric Occult Blood Positive (Negative)
[2024-05-24 07:46] LABS: pH Gastric Fluid 3
[2024-05-24] MEDS: OPTIRAY 320 125ml IV ONE (08:27)
--- NOTE | 2024-05-24 08:51 | CT Scan Report ---
CT ANGIOGRAPHY OF THE CHEST, PULMONARY EMBOLUS PROTOCOL CLINICAL HISTORY: Chest pain. Evaluate for pulmonary embolus. COMPARISON STUDY: Chest CT September 27, 2023. Chest radiograph performed earlier today. TECHNIQUE: Following IV administration of 112 mL of Optiray, helical axial images of the chest were o btained utilizing the pulmonary embolus protocol. Maximal intensity projections and sagittal and cor onal reformats were viewed on an independent 3D workstation. IV contrast was administered without co mplication. Automated exposure control was utilized for the study. A dose lowering technique was ut ilized adhering to the principles of ALARA. CT DOSE: 2313.5 mGy.cm FINDINGS: No pulmonary emboli are identified. The caliber of the thoracic aorta is normal. Opacifica tion of the thoracic aorta is suboptimal but no thoracic aortic dissection is present. The size of th e heart is normal. Is no pericardial effusion. No enlarged axillary, mediastinal or hilar lymph nodes are present. Central airways are patent. There is no pneumothorax or pleural effusion. There is mode rate emphysema. Dependent groundglass opacities within the lungs are present. There are no suspicious pulmonary nodules. IMPRESSION: 1. No pulmonary emboli identified. 2. Emphysema. 3. Dependent groundglass opacities within the lungs. Atelectasis is favored. However, pulmonary edema or less likely an infectious process could appear similar. ACT 112: Negative or not required by law. Electronically signed by: Flynn Shipley M.D. 05/24/2024 8:50 AM
--- NOTE | 2024-05-24 08:58 | CT Scan Report ---
CT OF THE ABDOMEN AND PELVIS WITH CONTRAST CLINICAL HISTORY: Abdominal pain and vomiting. COMPARISON STUDY: CTA of the abdomen and pelvis November 26, 2023. TECHNIQUE: Following IV administration of 112 mL of Optiray, axial images of the abdomen and pelvis w ere obtained from the lung bases to the proximal femurs. Images were reviewed in the axial, sagittal, and coronal planes. IV contrast was administered without complication. Automated exposure control w as utilized for the study. A dose lowering technique was utilized adhering to the principles of [employer]. FINDINGS: No pneumatosis, free air or portal venous gas is present. There is hepatic steatosis. There are no hepatic lesions. No biliary or pancreatic ductal dilatation is present. There is no peripancr eatic or pericholecystic infiltration. Spleen, adrenal glands, kidneys and pancreas are normal. There is no hydronephrosis. There are stable postoperative findings following aortobifemoral bypass. 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 A femoral to femoral bypass graft is patent. Fl uid collection adjacent to the bypass graft is unchanged since CTA of September 27, 2023. Postoperativ e appearance is unchanged. Colonic diverticulosis without evidence acute diverticulitis. The caliber and wall thickness of small and large bowel are normal. There are no findings to suggest acute append icitis. There is no lymphadenopathy. No acute fractures are identified within the visualized skeletal structures. 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 IMPRESSION: 1. No acute process within the abdomen or pelvis. 2. Normal appendix. No bowel obstruction. No bowel wall thickening. 3. Colonic diverticulosis. No evidence for acute diverticulitis. 4. Stable postoperative findings following aortobifemoral and femoral to femoral bypass grafting. Pat ent femoral-femoral bypass graft with a stable perigraft fluid collection since CTA of November 26, 2023 . ACT 112: Negative or not required by law. Electronically signed by: Flynn Shipley M.D. 05/24/2024 8:56 AM
[2024-05-24 09:13] LABS: Appearance Urine Clear (Clear); Bacteria Urine Automated None Seen (None Seen); Bilirubin Urine Negative (Negative); Blood Urine 2+ (Negative); Cast Urine Automated 0-2 /lpf (0-2); Color Urine Yellow; Epithelial Cell Urine Auto 0-2 /hpf (0-2); Glucose Urine UA Negative (Negative); Ketones Urine Negative (Negative); Leukocyte Esterase Urine Negative (Negative); Nitrite Urine Negative (Negative); Protein Urine 1+ (Negative); Specific Gravity Urine 1.022 (1.000-1.030); Urobilinogen Urine Negative (Negative); WBC Urine Automated 0-5 /hpf (0-5)
--- NOTE | 2024-05-24 10:13 | History & Physical Report ---
Date of Service May 24, 2024 Assessment & Plan (1) Hypertensive emergency: Plan: Suspect some pulmonary edema, headache (now resolved), chest pain (now resolved) Multiple prior episodes - hydralazine 10mg IV now, try her usual PO meds with ondansetron, will consider Lasix if still elevated following this vs clonidine if able to take her PO meds History of PRES but no current neurological symptoms BP historically over corrects, aim 20-30% drop MAP 110-130 over next 24 hours (2) Acute upper gastrointestinal bleeding: Plan: Dark red blood per patient, Hemoccult positive H&H q8h - will consider GI consult if hemoglobin drops NPO except ice chips/sips and meds, consider advance to clear liquids later if Hgb stable and patient N&V resolved Hold Eliquis and clopidogrel History of hematemesis 04/2022 with relatively normal EGD at that time (3) Chest pain: Plan: Non obstructive CAD in 2017. Troponin stable consistent with prior episodes of hypertensive emergency/urgency. TTE Continue to trend troponin (4) Cyclic vomiting syndrome: Plan: Multiple episodes of similar. Marijuana cessation advised as per prior although suspect current episode brought on by colby Ondansetron IV 4mg q4h PRN 1st line Promethazine PO 25mg q6h PRN 2nd line (5) Obstructive sleep apnea: Plan: Not on NIV at home and declined on prior hospitalizations (6) Seizure disorder: Plan: Switch Keppra from PO to IV while not reliably taking PO meds Plan VTE Prophylaxis - holding chemical prophyalxis in setting of UGI bleed, SCDs Diet - NPO Disposition - admit to PCU Admission and Anticipated Discharge Date Admission Date: May 24, 2024 History of Present Illness Chief Complaint: Chest pain Nausea & vomiting Primary Care Provider: DO Cyndie Romero Eva is a 59 year old female who presents to the ER with chest pain, nausea and vomiting. She has a longstanding history of cyclic vomiting syndrome with prior similar episodes. On this occasion she woke up at 2am with chest pain and shortly after that had vomiting and couldn't get it under control with her usual ondansetron. Associated shortness of breath and diaphoresis. Chest pain was substernal, radiated to neck. Associated headache now resolved. Chest pain resolved with aspirin x4 given by EMS. She is currently chest pain free when seen in the ER. She noticed dark red blood with vomiting this morning. Mild generalized abdominal pain. She also notes diarrhea for the last 2 days. No recent fever, chills, respiratory or urinary complaints. Currently she just feels thirsty and tired. Used marijuana couple of days ago. She expresses wish to quit. Took all her usual medications yesterday. Allergies Allergy/AdvReac Type Severity Reaction Status Date / Time napoles Allergy Intermediate Hives Verified 05/24/24 09:02 (green/hartman beans) doxycycline Allergy Intermediate Hives, Verified 05/24/24 09:02 vomiting Iodinated Contrast Media Allergy Intermediate Large Verified 05/24/24 09:02 hives, vomiting, "feeling hot" iodine Allergy Intermediate Hives, Verified 05/24/24 09:02 vomiting latex Allergy Intermediate Rash Verified 05/24/24 09:02 loperamide Allergy Intermediate Hives, Verified 05/24/24 09:02 vomiting meperidine Allergy Intermediate Hives, Verified 05/24/24 09:02 vomiting strawberry Allergy Intermediate Hives Verified 05/24/24 09:02 tomato Allergy Intermediate Hives Verified 05/24/24 09:02 prochlorperazine Allergy Mild N/V, Verified 05/24/24 09:02 itchiness Home Medications Medication Instructions Recorded Confirmed Type Auto Titrating CPAP #1 ea 07/15/22 10/08/23 Rx carvedilol 25 mg tablet 25 mg PO BID #60 tabs 01/01/23 05/24/24 Rx ipratropium 20 mcg-albuterol 100 1 puff inhalation Q6H PRN SOB 01/01/23 05/24/24 History mcg/actuation mist for inhalation (Combivent Respimat) Medical Marijuana 09/30/23 10/08/23 History cholecalciferol (vitamin D3) 50 2,000 unit PO HS 09/30/23 05/24/24 History mcg (2,000 unit) tablet clonidine HCl 0.1 mg tablet 0.1 mg PO BID 09/30/23 05/24/24 History ferrous sulfate 325 mg (65 mg 325 mg PO DAILY 09/30/23 05/24/24 History iron) tablet folic acid 1 mg tablet 1 mg PO DAILY 09/30/23 05/24/24 History mecobalamin (vitamin B12) 1,000 1,000 mcg PO DAILY 09/30/23 05/24/24 History mcg chewable tablet multivitamin-ferrous 1 tab PO DAILY 09/30/23 05/24/24 History fumarate-folic acid 18 mg-400 mcg tablet rosuvastatin 40 mg tablet (Crestor) 40 mg PO HS #90 tabs 10/10/23 05/24/24 Rx levetiracetam 1,000 mg tablet 1,000 mg PO BID #180 tabs 10/13/23 05/24/24 Rx (Keppra) pantoprazole 40 mg tablet,delayed 40 mg PO BID #180 tabs 10/31/23 05/24/24 Rx release ondansetron HCl 4 mg tablet 4 mg PO Q8H PRN nausea and 11/19/23 05/24/24 Rx vomiting #30 tabs amitriptyline 25 mg tablet 25 mg PO HS #90 tabs 12/15/23 05/24/24 Rx clopidogrel 75 mg tablet (Plavix) 75 mg PO HS #90 tabs 12/23/23 05/24/24 Rx venlafaxine 150 mg 150 mg PO QAM #90 caps 01/30/24 05/24/24 Rx capsule,extended release 24 hr losartan 50 mg tablet 50 mg PO DAILY #90 tabs 03/03/24 05/24/24 Rx apixaban 5 mg tablet (Eliquis) 5 mg PO BID #180 tabs 04/06/24 05/24/24 Rx Past Med/Surg History Problem List (Updated 05/25/24 @ 06:49 by Franck Pereira MD) Chest pain Elevated troponin I level (Acute) Abdominal pain (Acute) Vomiting (Acute) Acute upper gastrointestinal bleeding (Acute) Hypertensive urgency (Acute) PRES (posterior reversible encephalopathy syndrome) (Acute) Hypertensive emergency (Acute) Vertigo (Acute) Cerebellar stroke Occlusion of left iliac artery Marijuana dependence (Acute) Hx-TIA (transient ischemic attack) pt denies Diverticulosis Carpal tunnel syndrome Cervical spondylosis with myelopathy and radiculopathy Vitamin D deficiency Seizure disorder Hypomagnesemia (Acute) Upper gastrointestinal bleed 2021, resolved Cyclic vomiting syndrome no GI pathology on EGD, US, CT of abd/pelvis, celiac testing and GES per 04/2020 GI consult: biliary w/u and upper GI study recommended (upper GI study neg per d/c summary), cannabis cessation, continue Protonix and prn Zofran > currently controlled Peripheral arterial disease Bilateral external iliac artery occlusion with common femoral artery reconstitution-02/2021 aorta with runoff CTA, follows with Dr. Maynard Obstructive sleep apnea mod-severe per PCP records (does not have device) GERD (gastroesophageal reflux disease) Renal artery stenosis following with Dr Maynard HTN (hypertension) h/o multiple hypertensive urgency episodes, renal artery stenosis, following with cardiology and vascular surgery Carotid stenosis < 50% stenosis B/L per US 12/16/18 CAD (coronary artery disease) Mild-moderate non-obstructive CAD per 2017 cardiac cath Pulmonary emphysema well controlled per pt Multiple thyroid nodules Hyperlipidemia Anxiety disorder Medical History Hypertensive urgency, malignant Hypertensive urgency Elevated troponin Hypertensive emergency Hypokalemia Hypophosphatemia Tachycardia Postoperative nausea Seizures 2018 r/t hypertensive emergency > encephalopathy. last seizure 2019 Hematemesis History of COVID-19 03/18/22, pcr [facility], hospitalized day after diagnosis due to vomiting blood, discharged on 03/22/22; fever, vomiting, body chills and aches, diarrhea > resolved currently. Ischemia of right lower extremity Prediabetes diet controlled Depression Seizure Proteinuria Cyclic vomiting syndrome Hypercalcemia PRES (posterior reversible encephalopathy syndrome) has since caused seizures that started in 2018. following with PCP, last seizure per pt 08/2019 per PCP records Cannabinoid hyperemesis syndrome History of diverticulitis of colon Most recent 04/2022 Transient cerebrovascular ischemia Per records, pt unaware Cervical disc disorder Full ROM per pt Takotsubo cardiomyopathy 2017. Admitted [facility], full cardiac workup including cath. EF at the time 40%, now subsequent echos. Follows with Dr. Rodriguez NSTEMI (non-ST elevated myocardial infarction) 2017 Surgical History History of anesthesia reaction Low O2 sats during colonoscopy 04/2022 at [facility] and post-procedure elevated BP. Per post-op anesthesia progress note, O2 96-100% RA and "Pt has increased BP 2ndary to abdominal pain. Pt also has nausea w/ dry heaves. Pt to have CT scan per Dr Patten." History of tooth extraction History of cataract surgery bilat Status post surgery RLE thrombectomy S/P aortobifemoral bypass surgery Sep 2021 [facility] History of esophagogastroduodenoscopy (EGD) H/O cervical spine surgery ACDF C4-7 Dr. [place]: Grade 1 view, Bojorquez#2 and ETT#7.5 atraumatic x 1. No issues per anesthesia postop progress note. ROM WNL History of cardiac cath 2017 > no stents History of ovarian cystectomy History of hernia surgery right inguinal hernia repair History of hysterectomy Family History Father Family history of stomach cancer Malignant neoplasm of esophagus Stomach cancer Myocardial infarction Stroke Uncle Throat cancer Family history of cancer FAMILY HISTORY OF CANCER - UNCLE - VOCAL CORDS FAMILY HISTORY OF CANCER - AUNT - ? KIND Grandmother (Maternal) Bone cancer Breast cancer Mother No problems noted. Brother Lung cancer Other Family history of diabetes mellitus No family history of adverse response to anesthesia No pertinent family history Denies family history of Colon cancer Ovarian cancer Prostate cancer Crohn's disease IBD (inflammatory bowel disease) Social History Smoking Status: Former smoker Tobacco Type: Cigarettes packs per day: 2; Second Hand Exposure: No; Do You Dip or Chew Tobacco: No; Hx Alcohol Use: Yes Alcohol type: beer Hx Substance Use: Yes Last Used Substance: Days (ago) Last Used Substance Other:: 4 days ago last used. Substance Use Type Other:: medical card > flower Preferred Language: Swazi Communication Ability: Effective Visual Impairment: No Limitations Hearing Ability: Normal Pump House Operator Required: No Beliefs That Will Affect Care: None marital status: Current Living Situation: Spouse Current Living Situation Comment: [place] current occupational status: employed current occupation: [employer] Feels Safe at Home: Yes Childhood Exposure to Second-Hand Smoke: Yes Diet: regular Diet Comment: Regular caffeine: Yes (1 cup of coffee) during the past year weight has: other Dental Care, Regularly: No Physical Activity Frequency: Daily Physical Activity Frequency Comment: walking Seatbelt Use: always Sunscreen Use: Yes Assistive Devices: Denture - Upper and Denture - Lower Review of Systems Review of Systems: All systems reviewed & are unremarkable except as noted in HPI & below Physical Exam Constitutional: WD/WN, vitals as above ENMT: external ear and nose normal, oropharynx normal Respiratory: normal respiratory effort, lungs clear to auscultation Cardiovascular: RRR, no murmur, no edema Gastrointestinal (Abdomen): Inspection/Auscultation: abdomen normal to inspection; abdomen not distended Percussion/Palpation: + abdomen tender (generalized) and abdomen soft; no guarding and abdomen not rigid Skin: no rashes, warm and dry Neurologic: moves all extremities and awake; no focal motor deficits and not confused Speech / Cognition: normal speech Cranial Nerves: PERRL, EOM intact bilaterally and normal facial strength Psychiatric: A+Ox3, euthymic affect Results & Data Results & Data Vital Signs (Past 12 Hours) Vital Signs Temp Pulse Pulse Resp BP BP Pulse Ox 05/24/24 09:32 78 216/133 H 05/24/24 09:30 81 16 216/133 H 96 05/24/24 09:00 83 14 207/127 H 96 05/24/24 08:36 76 12 198/116 H 97 05/24/24 08:36 78 19 198/116 H 95 05/24/24 07:45 73 16 201/134 H 97 05/24/24 07:30 79 217/125 H 05/24/24 07:00 80 13 224/128 H 98 05/24/24 06:59 70 16 97 05/24/24 06:18 80 05/24/24 05:55 05/24/24 05:55 36.7 C 80 19 217/132 H 97 O2 Del Method 05/24/24 09:32 05/24/24 09:30 Room Air 05/24/24 09:00 05/24/24 08:36 05/24/24 08:36 Room Air 05/24/24 07:45 05/24/24 07:30 05/24/24 07:00 05/24/24 06:59 Room Air 05/24/24 06:18 05/24/24 05:55 Room Air 05/24/24 05:55 Room Air Laboratory Results Abnormal lab results 05/24/24 05/24/24 05/24/24 Range/Units 06:16 06:37 08:43 WBC 11.41 H (4.8-10.8) K/ul Hct 48.2 H (37.0-47.0) % Neut # (Auto) 6.76 H (1.40-6.50) K/uL [place] # (Auto) 0.76 H (0.11-0.59) K/uL BUN/Creatinine Ratio 20.2 H (10-20) Glucose 197 H (70-99(Fasting)) mg/dl Alkaline Phosphatase 112 H (34-104) U/L Troponin I High Sens 283.7 H* (0-14) pg/ml Urine Protein 1+ H (Negative) Urine Blood 2+ H (Negative) Urine RBC (Auto) 11-20 H (0-2) /hpf Gastric Occult Blood Positive A (Negative) 05/24/24 Range/Units 09:02 WBC (4.8-10.8) K/ul Hct (37.0-47.0) % Neut # (Auto) (1.40-6.50) K/uL [place] # (Auto) (0.11-0.59) K/uL BUN/Creatinine Ratio (10-20) Glucose (70-99(Fasting)) mg/dl Alkaline Phosphatase (34-104) U/L Troponin I High Sens 286.9 H* (0-14) pg/ml Urine Protein (Negative) Urine Blood (Negative) Urine RBC (Auto) (0-2) /hpf Gastric Occult Blood (Negative) Diagnostic Findings XR chest 1V portable HISTORY: 59 years-old Female chest pain COMPARISON: 10/01/2023 TECHNIQUE: AP view of the chest FINDINGS: Cardiac silhouette is normal in size. No pneumothorax or pleural effusion. Cervical spinal fusion hardware. Chronic fracture of the lateral right seventh rib. Lungs appear clear. IMPRESSION: No acute process. CT ANGIOGRAPHY OF THE CHEST, PULMONARY EMBOLUS PROTOCOL CLINICAL HISTORY: Chest pain. Evaluate for pulmonary embolus. COMPARISON STUDY: Chest CT September 27, 2023. Chest radiograph performed earlier today. TECHNIQUE: Following IV administration of 112 mL of Optiray, helical axial images of the chest were obtained utilizing the pulmonary embolus protocol. Maximal intensity projections and sagittal and coronal reformats were viewed on an independent 3D workstation. IV contrast was administered without complication. Automated exposure control was utilized for the study. A dose lowering technique was utilized adhering to the principles of ALARA. CT DOSE: 2313.5 mGy.cm FINDINGS: No pulmonary emboli are identified. The caliber of the thoracic aorta is normal. Opacification of the thoracic aorta is suboptimal but no thoracic aortic dissection is present. The size of the heart is normal. Is no pericardial effusion. No enlarged axillary, mediastinal or hilar lymph nodes are present. Central airways are patent. There is no pneumothorax or pleural effusion. There is moderate emphysema. Dependent groundglass opacities within the lungs are present. There are no suspicious pulmonary nodules. IMPRESSION: 1. No pulmonary emboli identified. 2. Emphysema. 3. Dependent groundglass opacities within the lungs. Atelectasis is favored. However, pulmonary edema or less likely an infectious process could appear similar. CT OF THE ABDOMEN AND PELVIS WITH CONTRAST CLINICAL HISTORY: Abdominal pain and vomiting. COMPARISON STUDY: CTA of the abdomen and pelvis November 26, 2023. TECHNIQUE: Following IV administration of 112 mL of Optiray, axial images of the abdomen and pelvis were obtained from the lung bases to the proximal femurs. Images were reviewed in the axial, sagittal, and coronal planes. IV contrast was administered without complication. Automated exposure control was utilized for the study. A dose lowering technique was utilized adhering to the principles of ALARA. FINDINGS: No pneumatosis, free air or portal venous gas is present. There is hepatic steatosis. There are no hepatic lesions. No biliary or pancreatic ductal dilatation is present. There is no peripancreatic or pericholecystic infiltratio n. Spleen, adrenal glands, kidneys and pancreas are normal. There is no hydronephrosis. There are stable postoperative findings following aortobifemoral bypass. 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 A femoral to femoral bypass graft is patent. Fluid collection adjacent to the bypass graft is unchanged since CTA of September 27, 2023. Postoperative appearance is unchanged. Colonic diverticulosis without evidence acute diverticulitis. The caliber and wall thickness of small and large bowel are normal. There are no findings to suggest acute appendicitis. There is no lymphadenopathy. No acute fractures are identified within the visualized skeletal structures. 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 IMPRESSION: 1. No acute process within the abdomen or pelvis. 2. Normal appendix. No bowel obstruction. No bowel wall thickening. 3. Colonic diverticulosis. No evidence for acute diverticulitis. 4. Stable postoperative findings following aortobifemoral and femoral to femoral bypass grafting. Patent femoral-femoral bypass graft with a stable perigraft fluid collection since CTA of November 26, 2023. Medications Administered ER Medications Given: Morphine 4mg IV Ondansetron 4mf IV Pantoprazole 40mg IV Famotidine 20mg IV Diphenhydramine 50mg IV Solu-medrol 40mg IV Labetalol 10mg IV Labetalol 10mg IV ECG Rate (beats per minute): 73 Rhythm: normal sinus Findings: + 1st degree AV block Comparison ECG Date: from (Oct 01, 2023) Change: the following changes noted (incomplete RBBB no longer present) Code Status & VTE Plan Code Status Full VTE Prophylaxis Plan VTE Prophylaxis will be ordered: Yes PG Care Time/CCT Total # of Minutes Spent Total Time Spent with Patient: Total time spent is greater than 50% in coordination of care (as documented) at patient's floor/unit and/or counseling patient: Coding Level of Care Code 96371 INT INP/OBS CARE 3/75MIN Diagnoses Hypertensive emergency I16.1 Acute upper gastrointestinal bleeding K92.2 Chest pain, unspecified type R07.9 Chest pain type: unspecified Cyclic vomiting syndrome R11.15 Obstructive sleep apnea G47.33 Seizure disorder G40.909 (3) Chest pain Chest pain type: unspecified Qualified Code(s): R07.9 - Chest pain, unspecified
[2024-05-24] MEDS: hydrALAZINE HCL 20 MG/ML VIAL IV STA (10:25)
[2024-05-24] MEDS: LOSARTAN POTASSIUM 50 MG TAB PO STA (11:06)
[2024-05-24] MEDS: carvediloL 25 MG TAB PO STA (11:06)
[2024-05-24] MEDS: levETIRAcetam IV 1,000 MG in SODIUM CHLORIDE 0.9% 100 ML IV STA (11:06)
[2024-05-24] MEDS ORDERED: PROMETHAZINE HCL 25 MG TAB PO PRN (12:38)
[2024-05-24] MEDS ORDERED: ONDANSETRON INJ 2 MG/ML 2 ML VIAL IV PRN (12:38)
[2024-05-24] MEDS ORDERED: IPRATROPIUM BROMIDE/ALBUTEROL respimat INH INH PRN (12:38)
[2024-05-24 12:48] LABS: Hematocrit (blood only) 45.5 % (37.0-47.0); Hemoglobin 16.3 g/dl (12.0-16.0)
[2024-05-24 13:02] LABS: Adenovirus PCR Not Detected (NotDetected); Bordetella parapertussis PCR Not Detected (NotDetected); Bordetella pertussis PCR Not Detected (NotDetected); Chlamydia pneumoniae PCR Not Detected (NotDetected); Coronavirus 229E PCR Not Detected (NotDetected); Coronavirus CoV-2 (COVID19)PCR Not Detected (NotDetected); Coronavirus HKU1 PCR Not Detected (NotDetected); Coronavirus NL63 PCR Not Detected (NotDetected); Coronavirus OC43PCR Not Detected (NotDetected); Human Metapneumovirus PCR Not Detected (NotDetected); Influenza A PCR Not Detected (NotDetected); Influenza B PCR Not Detected (NotDetected); Mycoplasma pneumoniae PCR Not Detected (NotDetected); Parainfluenza Virus 1 PCR Not Detected (NotDetected); Parainfluenza Virus 2 PCR Not Detected (NotDetected); Parainfluenza Virus 3 PCR Not Detected (NotDetected); Parainfluenza Virus 4 PCR Not Detected (NotDetected); Respiratory Syncytial VirusPCR Not Detected (NotDetected); Rhinovirus/Enterovirus PCR Not Detected (NotDetected)
[2024-05-24 13:07] LABS: Magnesium 1.7 mg/dl (1.7-2.4)
[2024-05-24 13:14] LABS: Troponin I High Sensitivity 347.3 pg/ml (0-14)
[2024-05-24] MEDS ORDERED: cloNIDine HCL 0.1 MG TAB PO SCH (14:15)
[2024-05-24] MEDS: MAGNESIUM SULFATE / D5W 1 GM/100 ML BAG IV ONE (14:18)
[2024-05-24] MEDS: FUROSEMIDE INJ 20 MG/2 ML VIAL IV STA (14:18)
--- NOTE | 2024-05-24 14:33 | XCELERA ---
[id number] \\[id number]
[2024-05-24] MEDS ORDERED: hydrALAZINE HCL 20 MG/ML VIAL IV PRN (16:00)
[2024-05-24] MEDS: carvediloL 25 MG TAB PO SCH (16:42)
[2024-05-24 19:55] LABS: Hematocrit (blood only) 44.7 % (37.0-47.0); Hemoglobin 15.5 g/dl (12.0-16.0)
[2024-05-24] MEDS: PANTOprazole 40 MG/10 ML SYR IV SCH (21:58)
[2024-05-24] MEDS: levETIRAcetam IV 1,000 MG in SODIUM CHLORIDE 0.9% 100 ML IV SCH (21:58)
[2024-05-24] MEDS: cloNIDine HCL 0.1 MG TAB PO SCH (21:59)
[2024-05-24] MEDS: AMITRIPTYLINE HCL 25 MG TAB PO SCH (21:59)
[2024-05-24] MEDS: ROSUVASTATIN CALCIUM 20 MG TAB PO SCH (21:59)
[2024-05-25 05:08] LABS: Basophils # (auto) 0.05 K/uL (0.00-0.20); Basophils % (auto) 0.4 %; Eosinophils # (auto) 0.03 K/uL (0.00-0.50); Eosinophils % (auto) 0.2 %; Hematocrit (blood only) 44.6 % (37.0-47.0); Immature Granulocytes # (auto) 0.03 K/uL (0.01-0.20); Immature Granulocytes % (auto) 0.2 %; Lymphocytes % (auto) 24.7 %; Mean Corpuscular Hemoglobin 30.5 pg (25.0-34.0); Mean Corpuscular Hgb Conc 33.6 g/dL (32.0-36.0); Mean Corpuscular Volume 90.7 fL (80.0-100.0); Mean Platelet Volume 10.5 fL (9.4-12.4); Monocytes # (auto) 0.94 K/uL (0.11-0.59); Monocytes % (auto) 7.5 %; Neutrophils # (auto) 8.38 K/uL (1.40-6.50); Platelet Count 318 K/uL (130-400); RDW Coefficient of Variation 12.5 % (11.5-14.5); RDW Standard Deviation 40.8 fL (36.4-46.3); Red Blood Count 4.92 M/uL (4.20-5.40); White Blood Count 12.53 K/ul (4.8-10.8)
[2024-05-25 05:18] LABS: Albumin Globulin Ratio 1.5 (0.9-2); Albumin Level 4.4 gm/dl (3.4-5.0); Bilirubin,Total 0.6 mg/dl (0.2-1.0); Calcium 9.8 mg/dl (8.6-10.3); Creatinine Clr Calc Pharmacy 63.3 ml/min; Globulin 2.9 gm/dl (2.5-4.0); Potassium 3.2 mmol/L (3.5-5.1); Total Protein 7.3 gm/dl (6.0-8.3)
[2024-05-25 05:26] LABS: Troponin I High Sensitivity 381.5 pg/ml (0-14)
[2024-05-25] MEDS: POTASSIUM CHLORIDE / WTR 10 MEQ/100 ML PLCT IV SCH (06:07)
[2024-05-25] MEDS: VENLAFAXINE HCL XR 150 MG CAPXR PO SCH (08:23)
[2024-05-25] MEDS: FOLIC ACID 1 MG TAB PO SCH (08:23)
[2024-05-25] MEDS: LOSARTAN POTASSIUM 50 MG TAB PO SCH (08:23)
[2024-05-25] MEDS: FERROUS SULFATE 325 MG TAB PO SCH (08:24)
--- NOTE | 2024-05-25 09:00 | Cardiology Consultation ---
Date of Consultation May 25, 2024 Assessment & Plan (1) Chest pain: (2) Elevated troponin I level: (3) Hypertensive emergency: Pmhx: 1. Status post aortobifemoral winter with a post-procedure blood clot, currently on Plavix and Eliquis. 2. Negative dobutamine stress echo for ischemia, September 2021. 3. Normal biventricular size and function without evidence of significant valvular heart disease by echo 08/23/2021. 4. Hypertension. 5. Hyperlipidemia. 6. History of longstanding tobacco abuse, 2 packs per day for 28 years stopping at the age of 46. 7. Renal artery stenosis. 8. Cardiac catheterization in 2017 with mild to moderate nonobstructing coronary artery disease. 9. History of Takotsubo cardiomyopathy in 2017 with an EF as low as 40%, now preserved. 10. Obstructive sleep apnea. 11. Cerebellar stroke 11/2022 Ms. Velasquez is chest pain free and her troponin is trending down. Her echo does show wall motion abnormalities in the base and inferiorly with mildly decreased EF of 50%. At this point, I would recommend we treat her medically especially with concern for GI bleeding, and her difficulty at times with medical compliance. Her hgb however does appear to be stable today and her Eliquis and clopidogrel could be resumed given that she has had no further s/s of bleeding. Her blood pressure is much better controlled. It's possible that her wall motion abnormalities are NICM from hypertension. We will repeat an echo in a few months to look at it again. It's unclear what caused the spike in her pressure. She has had workup for secondary htn causes multiple times with no evidence of hyperaldosteronism, TSH has been normal as well as normal serum metanephrines. She does have mild renal artery stenosis but no intervention is indicated per vascular surgery.She denies salt loading. She is on appropriate CAD medications with antiplatelet, statin and ARB. Her LDL in September was at goal. I would recommend switching to Entresto mid range dosing instead of losartan. She will need a bmp 10 days after hospital discharge. We could consider adding amlodipine at follow up if doing ok on the Entresto to suppress possible vasospasm as a contributor to her chest pain. Her clonidine could be titrated down to make room for it, but again, this can be done on an outpatient basis. Will continue to follow but from a cardiology perspective she appears to have been stabilized History of Present Illness Attending Physician: Leonie Fairbanks MD History of Present Illness We have not seen Ms. Velasquez in the cardiology awoke at 2 am on 05/24 with chest pain and shortly thereafter developed nausea and vomiting with bloody emesis. She presented to the emergency department with hypertensive urgency. Her troponin was elevated and she has new wall motion abnormalities. Her blood pressure improved by last evening and she has been chest pain free since. Her nausea and vomiting has resolved. No obvious triggers for her elevated blood pressures - she denies salt loading, NSAIDS or decongestants. Allergies Allergy/AdvReac Type Severity Reaction Status Date / Time napoles Allergy Intermediate Hives Verified 05/24/24 09:02 (green/hartman beans) doxycycline Allergy Intermediate Hives, Verified 05/24/24 09:02 vomiting Iodinated Contrast Media Allergy Intermediate Large Verified 05/24/24 09:02 hives, vomiting, "feeling hot" iodine Allergy Intermediate Hives, Verified 05/24/24 09:02 vomiting latex Allergy Intermediate Rash Verified 05/24/24 09:02 loperamide Allergy Intermediate Hives, Verified 05/24/24 09:02 vomiting meperidine Allergy Intermediate Hives, Verified 05/24/24 09:02 vomiting strawberry Allergy Intermediate Hives Verified 05/24/24 09:02 tomato Allergy Intermediate Hives Verified 05/24/24 09:02 prochlorperazine Allergy Mild N/V, Verified 05/24/24 09:02 itchiness Home Medications Medication Instructions Recorded Confirmed Type Auto Titrating CPAP #1 ea 07/15/22 10/08/23 Rx carvedilol 25 mg tablet 25 mg PO BID #60 tabs 01/01/23 05/24/24 Rx ipratropium 20 mcg-albuterol 100 1 puff inhalation Q6H PRN SOB 01/01/23 05/24/24 History mcg/actuation mist for inhalation (Combivent Respimat) Medical Marijuana 09/30/23 10/08/23 History cholecalciferol (vitamin D3) 50 2,000 unit PO HS 09/30/23 05/24/24 History mcg (2,000 unit) tablet clonidine HCl 0.1 mg tablet 0.1 mg PO BID 09/30/23 05/24/24 History ferrous sulfate 325 mg (65 mg 325 mg PO DAILY 09/30/23 05/24/24 History iron) tablet folic acid 1 mg tablet 1 mg PO DAILY 09/30/23 05/24/24 History mecobalamin (vitamin B12) 1,000 1,000 mcg PO DAILY 09/30/23 05/24/24 History mcg chewable tablet multivitamin-ferrous 1 tab PO DAILY 09/30/23 05/24/24 History fumarate-folic acid 18 mg-400 mcg tablet rosuvastatin 40 mg tablet (Crestor) 40 mg PO HS #90 tabs 10/10/23 05/24/24 Rx levetiracetam 1,000 mg tablet 1,000 mg PO BID #180 tabs 10/13/23 05/24/24 Rx (Keppra) pantoprazole 40 mg tablet,delayed 40 mg PO BID #180 tabs 10/31/23 05/24/24 Rx release ondansetron HCl 4 mg tablet 4 mg PO Q8H PRN nausea and 11/19/23 05/24/24 Rx vomiting #30 tabs amitriptyline 25 mg tablet 25 mg PO HS #90 tabs 12/15/23 05/24/24 Rx clopidogrel 75 mg tablet (Plavix) 75 mg PO HS #90 tabs 12/23/23 05/24/24 Rx venlafaxine 150 mg 150 mg PO QAM #90 caps 01/30/24 05/24/24 Rx capsule,extended release 24 hr losartan 50 mg tablet 50 mg PO DAILY #90 tabs 03/03/24 05/24/24 Rx apixaban 5 mg tablet (Eliquis) 5 mg PO BID #180 tabs 04/06/24 05/24/24 Rx Patient History Medical History Hypertensive urgency, malignant Hypertensive urgency Elevated troponin Hypertensive emergency Hypokalemia Hypophosphatemia Tachycardia Postoperative nausea Seizures 2019 r/t hypertensive emergency > encephalopathy. last seizure 2020 Hematemesis History of COVID-19 03/18/22, pcr [facility], hospitalized day after diagnosis due to vomiting blood, discharged on 03/22/22; fever, vomiting, body chills and aches, diarrhea > resolved currently. Ischemia of right lower extremity Prediabetes diet controlled Depression Seizure Proteinuria Cyclic vomiting syndrome Hypercalcemia PRES (posterior reversible encephalopathy syndrome) has since caused seizures that started in 2019. following with PCP, last seizure per pt 08/2019 per PCP records Cannabinoid hyperemesis syndrome History of diverticulitis of colon Most recent 04/2022 Transient cerebrovascular ischemia Per records, pt unaware Cervical disc disorder Full ROM per pt Takotsubo cardiomyopathy 2017. Admitted [facility], full cardiac workup including cath. EF at the time 40%, now subsequent echos. Follows with Dr. Rodriguez NSTEMI (non-ST elevated myocardial infarction) 2017 Surgical History History of anesthesia reaction Low O2 sats during colonoscopy 04/2022 at [facility] and post-procedure elevated BP. Per post-op anesthesia progress note, O2 96-100% RA and "Pt has increased BP 2ndary to abdominal pain. Pt also has nausea w/ dry heaves. Pt to have CT scan per Dr Patten." History of tooth extraction History of cataract surgery bilat Status post surgery RLE thrombectomy S/P aortobifemoral bypass surgery Sep 2021 [facility] History of esophagogastroduodenoscopy (EGD) H/O cervical spine surgery ACDF C4-7 Dr. [place]: Grade 1 view, Bojorquez#2 and ETT#7.5 atraumatic x 1. No issues per anesthesia postop progress note. ROM WNL History of cardiac cath 2017 > no stents History of ovarian cystectomy History of hernia surgery right inguinal hernia repair History of hysterectomy Family History Father Family history of stomach cancer Malignant neoplasm of esophagus Stomach cancer Myocardial infarction Stroke Uncle Throat cancer Family history of cancer FAMILY HISTORY OF CANCER - UNCLE - VOCAL CORDS FAMILY HISTORY OF CANCER - AUNT - ? KIND Grandmother (Maternal) Bone cancer Breast cancer Mother No problems noted. Brother Lung cancer Other Family history of diabetes mellitus No family history of adverse response to anesthesia No pertinent family history Denies family history of Colon cancer Ovarian cancer Prostate cancer Crohn's disease IBD (inflammatory bowel disease) Social History Smoking Status: Former smoker Tobacco Type: Cigarettes packs per day: 2; Second Hand Exposure: No; Do You Dip or Chew Tobacco: No; Hx Alcohol Use: Yes Alcohol type: beer Hx Substance Use: Yes Last Used Substance: Days (ago) Last Used Substance Other:: 4 days ago last used. 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 Feels Safe at Home: Yes Childhood Exposure to Second-Hand Smoke: Yes Diet: regular Diet Comment: Regular caffeine: Yes (1 cup of coffee) during the past year weight has: other Dental Care, Regularly: No Physical Activity Frequency: Daily Physical Activity Frequency Comment: walking Seatbelt Use: always Sunscreen Use: Yes Assistive Devices: Denture - Upper and Denture - Lower Review of Systems Review of Systems: All systems reviewed & are unremarkable except as noted in HPI & below Physical Exam Constitutional: WD/WN, vitals as above Respiratory: normal respiratory effort, lungs clear to auscultation Cardiovascular: RRR, no murmur, no edema Skin: no rashes, warm and dry Neurologic: moves all extremities and awake Psychiatric: A+Ox3, euthymic affect Results & Data Vital Signs (Past 12 Hours) Vital Signs Temp Pulse Pulse Resp BP Pulse Ox O2 Del Method 05/25/24 07:48 36.5 C 77 18 119/63 96 Room Air 05/25/24 03:26 36.4 C L 71 20 101/67 93 Room Air 05/24/24 22:33 37.0 C 80 18 91/66 L 95 Room Air 05/24/24 21:47 89 (1) Chest pain Chest pain type: unspecified Qualified Code(s): R07.9 - Chest pain, unspecified
--- NOTE | 2024-05-25 09:42 | Gastrointestinal Consultation ---
Date of Consultation May 25, 2024 Assessment & Plan (1) Chest pain: (2) Vomiting: Plan Patient is a 59 year old female who presented to the ED with chest pain, nausea and vomiting. She questions dark blood in her emesis. She was admitted with hypertensive urgency and her troponin was elevated and she has new wall motion abnormalities. Her symptoms have resolved and her hgb has held stable. no signs of any active GI blood loss. - continue with protonix 40mg IV BID. - continue to monitor hgb/hct. transfuse as needed. - I reviewed cardiology draft note, it looks like they are recommending restarting eliquis and asa. Can monitor for any signs of GI blood loss. - if any further signs of GI blood loss, could consider updated EGD. - will discuss case further with Dr. Miller, further recommendations to follow. Supervising Physician Co-Signing Physician Notes I saw and examined this patient with our nurse practitioner and agree with her assessment and plan. No further episodes of documented hematemesis or GI bleeding. Hemoglobin stable. Patient denies any significant GI symptoms at the present time. Recommend continuing proton pump inhibitor. Hold on endoscopic intervention at this time in light of acute cardiac issues. However if endoscopy is needed prior to any further cardiac intervention please let us know. History of Present Illness Reason for Consultation: requested by cardiology on when to start anticoagulation. Requesting Physician: Franck Pereira MD Attending Physician: Leonie Fairbanks MD History of Present Illness Patient is a 59 year old female who presented to the ED on 05/24 with complaints of chest pain, nausea and vomiting. She has a longstanding history of cyclic vomiting syndrome with prior similar episodes, but in the past episode were well controlled with zofran. On 05/24 she had awoken at 2am with chest pain and shortly after that had vomiting and couldn't get it under control with her zofran. She had associated shortness of breath and diaphoresis and was worried she was having a heart attack. Chest pain was substernal, radiated to neck. She had called for EMS. Chest pain resolved with aspirin x4 given by EMS. Upon work up in the emergency department she was found to have hypertensive urgency. Her troponin was elevated and she had new wall motion abnormalities. She tells me she did not have further chest pain since that time. She noticed dark red blood with the vomiting she was having. She has not had any further vomiting since yesterday morning per patient. She also had diarrhea the day prior to her symptoms starting. She tells me she had 4-5 bowel movements that day, but did not look for any blood in her stool or melena. she tells me diarrhea has since resolved. She tells me that she had a similar episode in the past and at that time had a colonoscopy and EGD that were unremarkable. EGD 04/17/22 Gastritis Colonoscopy 04/17/22 poor prep, 5mm tubular adenoma colon polyp, diverticulosis, and internal hemorrhoids. 05/24 hgb 15.9 05/25 hgb 15. Allergies Allergy/AdvReac Type Severity Reaction Status Date / Time napoles Allergy Intermediate Hives Verified 05/24/24 09:02 (green/hartman beans) doxycycline Allergy Intermediate Hives, Verified 05/24/24 09:02 vomiting Iodinated Contrast Media Allergy Intermediate Large Verified 05/24/24 09:02 hives, vomiting, "feeling hot" iodine Allergy Intermediate Hives, Verified 05/24/24 09:02 vomiting latex Allergy Intermediate Rash Verified 05/24/24 09:02 loperamide Allergy Intermediate Hives, Verified 05/24/24 09:02 vomiting meperidine Allergy Intermediate Hives, Verified 05/24/24 09:02 vomiting strawberry Allergy Intermediate Hives Verified 05/24/24 09:02 tomato Allergy Intermediate Hives Verified 05/24/24 09:02 prochlorperazine Allergy Mild N/V, Verified 05/24/24 09:02 itchiness Home Medications Medication Instructions Recorded Confirmed Type Auto Titrating CPAP #1 ea 07/15/22 10/08/23 Rx carvedilol 25 mg tablet 25 mg PO BID #60 tabs 01/01/23 05/24/24 Rx ipratropium 20 mcg-albuterol 100 1 puff inhalation Q6H PRN SOB 01/01/23 05/24/24 History mcg/actuation mist for inhalation (Combivent Respimat) Medical Marijuana 09/30/23 10/08/23 History cholecalciferol (vitamin D3) 50 2,000 unit PO HS 09/30/23 05/24/24 History mcg (2,000 unit) tablet clonidine HCl 0.1 mg tablet 0.1 mg PO BID 09/30/23 05/24/24 History ferrous sulfate 325 mg (65 mg 325 mg PO DAILY 09/30/23 05/24/24 History iron) tablet folic acid 1 mg tablet 1 mg PO DAILY 09/30/23 05/24/24 History mecobalamin (vitamin B12) 1,000 1,000 mcg PO DAILY 09/30/23 05/24/24 History mcg chewable tablet multivitamin-ferrous 1 tab PO DAILY 09/30/23 05/24/24 History fumarate-folic acid 18 mg-400 mcg tablet rosuvastatin 40 mg tablet (Crestor) 40 mg PO HS #90 tabs 10/10/23 05/24/24 Rx levetiracetam 1,000 mg tablet 1,000 mg PO BID #180 tabs 10/13/23 05/24/24 Rx (Keppra) pantoprazole 40 mg tablet,delayed 40 mg PO BID #180 tabs 10/31/23 05/24/24 Rx release ondansetron HCl 4 mg tablet 4 mg PO Q8H PRN nausea and 11/19/23 05/24/24 Rx vomiting #30 tabs amitriptyline 25 mg tablet 25 mg PO HS #90 tabs 12/15/23 05/24/24 Rx clopidogrel 75 mg tablet (Plavix) 75 mg PO HS #90 tabs 12/23/23 05/24/24 Rx venlafaxine 150 mg 150 mg PO QAM #90 caps 01/30/24 05/24/24 Rx capsule,extended release 24 hr losartan 50 mg tablet 50 mg PO DAILY #90 tabs 03/03/24 05/24/24 Rx apixaban 5 mg tablet (Eliquis) 5 mg PO BID #180 tabs 04/06/24 05/24/24 Rx Patient History Medical History Hypertensive urgency, malignant Hypertensive urgency Elevated troponin Hypertensive emergency Hypokalemia Hypophosphatemia Tachycardia Postoperative nausea Seizures 2019 r/t hypertensive emergency > encephalopathy. last seizure 2020 Hematemesis History of COVID-19 03/18/22, pcr [facility], hospitalized day after diagnosis due to vomiting blood, discharged on 03/22/22; fever, vomiting, body chills and aches, diarrhea > resolved currently. Ischemia of right lower extremity Prediabetes diet controlled Depression Seizure Proteinuria Cyclic vomiting syndrome Hypercalcemia PRES (posterior reversible encephalopathy syndrome) has since caused seizures that started in 2019. following with PCP, last seizure per pt 08/2019 per PCP records Cannabinoid hyperemesis syndrome History of diverticulitis of colon Most recent 04/2022 Transient cerebrovascular ischemia Per records, pt unaware Cervical disc disorder Full ROM per pt Takotsubo cardiomyopathy 2017. Admitted [facility], full cardiac workup including cath. EF at the time 40%, now subsequent echos. Follows with Dr. Rodriguez NSTEMI (non-ST elevated myocardial infarction) 2017 Surgical History History of anesthesia reaction Low O2 sats during colonoscopy 04/2022 at [facility] and post-procedure elevated BP. Per post-op anesthesia progress note, O2 96-100% RA and "Pt has increased BP 2ndary to abdominal pain. Pt also has nausea w/ dry heaves. Pt to have CT sca n per Case." History of tooth extraction History of cataract surgery bilat Status post surgery RLE thrombectomy S/P aortobifemoral bypass surgery Sep 2021 [facility] History of esophagogastroduodenoscopy (EGD) H/O cervical spine surgery ACDF C4-7 Dr. [place]: Grade 1 view, Bojorquez#2 and ETT#7.5 atraumatic x 1. No issues per anesthesia postop progress note. ROM WNL History of cardiac cath 2017 > no stents History of ovarian cystectomy History of hernia surgery right inguinal hernia repair History of hysterectomy Family History Father Family history of stomach cancer Malignant neoplasm of esophagus Stomach cancer Myocardial infarction Stroke Uncle Throat cancer Family history of cancer FAMILY HISTORY OF CANCER - UNCLE - VOCAL CORDS FAMILY HISTORY OF CANCER - AUNT - ? KIND Grandmother (Maternal) Bone cancer Breast cancer Mother No problems noted. Brother Lung cancer Other Family history of diabetes mellitus No family history of adverse response to anesthesia No pertinent family history Denies family history of Colon cancer Ovarian cancer Prostate cancer Crohn's disease IBD (inflammatory bowel disease) Social History Smoking Status: Former smoker Tobacco Type: Cigarettes packs per day: 2; Second Hand Exposure: No; Do You Dip or Chew Tobacco: No; Hx Alcohol Use: Yes Alcohol type: beer Hx Substance Use: Yes Last Used Substance: Days (ago) Last Used Substance Other:: 4 days ago last used. 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 Feels Safe at Home: Yes Childhood Exposure to Second-Hand Smoke: Yes Diet: regular Diet Comment: Regular caffeine: Yes (1 cup of coffee) during the past year weight has: other Dental Care, Regularly: No Physical Activity Frequency: Daily Physical Activity Frequency Comment: walking Seatbelt Use: always Sunscreen Use: Yes Assistive Devices: Denture - Upper and Denture - Lower Review of Systems Review of Systems: All systems reviewed & are unremarkable except as noted in HPI & below Physical Exam Constitutional: WD/WN, vitals as above Respiratory: normal respiratory effort, lungs clear to auscultation Cardiovascular: Rate/Rhythm: regular rate and regular rhythm Gastrointestinal (Abdomen): normal bowel sounds, soft, nontender, no hepatosplenomegaly Psychiatric: Orientation: alert and oriented x 3 Affect: euthymic affect Results & Data Vital Signs (Past 12 Hours) Vital Signs Temp Pulse Pulse Resp BP Pulse Ox O2 Del Method 05/25/24 07:48 97.7 F 77 18 119/63 96 Room Air 05/25/24 03:26 97.5 F L 71 20 101/67 93 Room Air 05/24/24 22:33 98.6 F 80 18 91/66 L 95 Room Air 05/24/24 21:47 89 Coding Level of Care Code 59855 INT INP/OBS CARE 2/55MIN Diagnoses Chest pain, unspecified type R07.9 Chest pain type: unspecified Vomiting R11.2 Nausea presence: with nausea Vomiting type: unspecified (1) Chest pain Chest pain type: unspecified Qualified Code(s): R07.9 - Chest pain, unspecified (2) Vomiting Nausea presence: with nausea Vomiting type: unspecified Qualified Code(s): R11.2 - Nausea with vomiting, unspecified
[2024-05-25 13:05] LABS: Hemoglobin 14.4 g/dl (12.0-16.0)
--- NOTE | 2024-05-25 18:22 | Hospitalist Progress Note ---
Date of Service May 25, 2024 Assessment & Plan (1) Hypertensive emergency: Plan: Suspect some pulmonary edema, headache (now resolved), chest pain (now resolved) Multiple prior episodes History of PRES but no current neurological symptoms Blood pressures are much better controlled-cardiology started Entresto and stopped low home losartan Continue carvedilol, clonidine Continue to follow IV hydralazine as needed (2) Acute upper gastrointestinal bleeding: Plan: Dark red blood per patient, Hemoccult positive Hemoglobin remained stable at 15.0 down from 15.9 on admission History of hematemesis 04/2022 with relatively normal EGD at that time No further nausea/vomiting since admission. May have had a Diana-Briones tear Eliquis and Plavix were held but will now be started this evening GI consulted-defer on EGD for now given cardiac issues (3) Chest pain: Plan: Non obstructive CAD in 2017. Troponin did trend upward to 818 at peak. Chest pain is now resolved No ischemic changes on ECG TTE with EF 50-55%, mild basal and inferior base to mid inferoseptal hypokinesis Most likely demand ischemia from hypertensive emergency Appreciate cardiology consultation-recommends medical management especially given the GI bleeding and difficulty with medical compliance historically. Plan to repeat echocardiogram in a few months No clear cause for hypertensive emergency but this is historically an issue with her There is a question of cyclical vomiting syndrome from marijuana use which causes a spike in blood pressure Also considering adding amlodipine on and follow-up if doing well with the new Entresto. Amlodipine would be for vasospasm. (4) Cyclic vomiting syndrome: Plan: Multiple episodes of similar. Marijuana cessation advised as per prior although suspect current episode brought on by colby Ondansetron IV 4mg q4h PRN 1st line Promethazine PO 25mg q6h PRN 2nd line Nausea is improving but appetite remains low Advance diet to clear liquids as tolerated (5) Obstructive sleep apnea: Plan: Not on NIV at home and declined on prior hospitalizations (6) Seizure disorder: Plan: Switch Keppra from PO to IV while not reliably taking PO meds Plan VTE Prophylaxis - holding chemical prophyalxis in setting of UGI bleed, SCDs Disposition -continued stay on PCU Admission and Anticipated Discharge Date Admission Date: May 24, 2024 Subjective Patient still does not have an appetite but no further nausea or vomiting since yesterday. Denies headache or chest pain, no shortness of breath. All other symptoms resolved. No diarrhea today no abdominal pains. Telemetry with normal sinus rhythm with rates in the 60s. I discussed her care with cardiology nurse practitioner Physical Exam Constitutional: WD/WN, vitals as above Respiratory: normal respiratory effort, lungs clear to auscultation Cardiovascular: RRR, no murmur, no edema Gastrointestinal (Abdomen): normal bowel sounds, soft, nontender, no hepatosplenomegaly Psychiatric: A+Ox3, euthymic affect Results & Data Results & Data Vital Signs (Past 12 Hours) Vital Signs Temp Pulse Resp BP Pulse Ox O2 Del Method 05/25/24 15:23 36.6 C 89 20 134/74 98 Room Air 05/25/24 11:31 36.5 C 87 16 128/72 97 Room Air 05/25/24 07:48 36.5 C 77 18 119/63 96 Room Air Laboratory Results CBC, BMP, BNP, troponin reviewed PG Care Time/CCT Total # of Minutes Spent Total Time Spent with Patient: Total time spent is greater than 50% in coordination of care (as documented) at patient's floor/unit and/or counseling patient: Coding Level of Care Code 99141 SUB INP/OBS CARE 2/35MIN Diagnoses Hypertensive emergency I16.1 Acute upper gastrointestinal bleeding K92.2 Chest pain, unspecified type R07.9 Chest pain type: unspecified Cyclic vomiting syndrome R11.15 Obstructive sleep apnea G47.33 Seizure disorder G40.909 (3) Chest pain Chest pain type: unspecified Qualified Code(s): R07.9 - Chest pain, unspecified
[2024-05-25] MEDS: APIXABAN 5 MG TABLET PO SCH (20:39)
[2024-05-25] MEDS: CLOPIDOGREL BISULFATE 75 MG TAB PO SCH (20:42)
[2024-05-26 06:42] LABS: Basophils # (auto) 0.11 K/uL (0.00-0.20); Basophils % (auto) 1.2 %; Eosinophils # (auto) 0.19 K/uL (0.00-0.50); Eosinophils % (auto) 2.1 %; Hematocrit (blood only) 41.2 % (37.0-47.0); Hemoglobin 14.1 g/dl (12.0-16.0); Immature Granulocytes # (auto) 0.02 K/uL (0.01-0.20); Immature Granulocytes % (auto) 0.2 %; Lymphocytes # (auto) 3.78 K/uL (1.20-3.40); Mean Corpuscular Hemoglobin 31.3 pg (25.0-34.0); Mean Corpuscular Hgb Conc 34.2 g/dL (32.0-36.0); Mean Corpuscular Volume 91.6 fL (80.0-100.0); Mean Platelet Volume 10.7 fL (9.4-12.4); Monocytes # (auto) 0.62 K/uL (0.11-0.59); Monocytes % (auto) 6.9 %; Neutrophils # (auto) 4.27 K/uL (1.40-6.50); Neutrophils % (auto) 47.6 %; Platelet Count 266 K/uL (130-400); RDW Coefficient of Variation 12.6 % (11.5-14.5); RDW Standard Deviation 42.4 fL (36.4-46.3); White Blood Count 8.99 K/ul (4.8-10.8)
[2024-05-26 07:15] LABS: BUN Creatinine Ratio 24.4 (10-20); Calcium 9.3 mg/dl (8.6-10.3); Creatinine Clr Calc Pharmacy 73.9 ml/min; Magnesium 2.2 mg/dl (1.7-2.4); Potassium 3.3 mmol/L (3.5-5.1)
[2024-05-26] MEDS: VALSARTAN/SACUBITRIL 51/49 MG TAB PO SCH (07:49)
--- NOTE | 2024-05-26 08:31 | Cardiology Progress Note ---
Date of Service May 26, 2024 Assessment & Plan (1) Chest pain: (2) Elevated troponin I level: (3) Hypertensive emergency: Plan: Pmhx: 1. Status post aortobifemoral winter with a post-procedure blood clot, currently on Plavix and Eliquis. 2. Negative dobutamine stress echo for ischemia, September 2021. 3. Normal biventricular size and function without evidence of significant valvular heart disease by echo 08/23/2021. 4. Hypertension. 5. Hyperlipidemia. 6. History of longstanding tobacco abuse, 2 packs per day for 28 years stopping at the age of 46. 7. Renal artery stenosis. 8. Cardiac catheterization in 2017 with mild to moderate nonobstructing coronary artery disease. 9. History of Takotsubo cardiomyopathy in 2017 with an EF as low as 40%, now preserved. 10. Obstructive sleep apnea. 11. Cerebellar stroke 11/2022 Ms. Velasquez is chest pain free and her troponin is trending down. Her echo does show wall motion abnormalities in the base and inferiorly with mildly decreased EF of 50%. At this point, I would recommend we treat her medically especially with concern for Upper GI bleeding, and her difficulty at times with medical compliance. Her hgb however does appear to be stable today and her Eliquis and clopidogrel could be resumed given that she has had no further s/s of bleeding unless she is to have further inpatient procedures. Would prefer inpatient GI work up due to cardiac and vascular issues.. Her blood pressure overnight has been low. It's possible that her wall motion abnormalities are NICM from hypertension. We will repeat an echo in a few months to look at it again. It's unclear what caused the spike in her pressure. She has had workup for secondary htn causes multiple times with no evidence of hyperaldosteronism, TSH has been normal as well as normal serum metanephrines. She does have mild renal artery stenosis but no intervention is indicated per vascular surgery.She denies salt loading. She is on appropriate CAD medications with antiplatelet, statin and ARB. Her LDL in September was at goal. I would recommend switching to Entresto mid range dosing instead of losartan. She will need a bmp 10 days after hospital discharge. Admission and Anticipated Discharge Date Admission Date: May 24, 2024 Subjective no cardiac complaints; no appetite lying comfortable in BED GI procedure apparently cancelled for today no further hematemesis Review of Systems Review of Systems: All systems reviewed & are unremarkable except as noted in HPI & below Physical Exam Physical Exam: AAO x 3 in NAD Respiratory: CTA b/l Cardiovascular: regular, no murmurs Results & Data Vital Signs (Past 12 Hours) Vital Signs Temp Pulse Pulse Resp BP BP Pulse Ox 05/26/24 07:52 36.4 C L 64 18 140/92 94 05/26/24 04:41 36.9 C 65 16 94/57 L 92 05/25/24 23:40 71 05/25/24 22:41 37.1 C 70 18 100/72 92 O2 Del Method 05/26/24 07:52 Room Air 05/26/24 04:41 Room Air 05/25/24 23:40 05/25/24 22:41 Room Air Laboratory Results Abnormal lab results 05/26/24 Range/Units 05:42 Lymph # (Auto) 3.78 H (1.20-3.40) K/uL [place] # (Auto) 0.62 H (0.11-0.59) K/uL Potassium 3.3 L (3.5-5.1) mmol/L BUN/Creatinine Ratio 24.4 H (10-20) Medications Administered Current Inpatient Medications Albuterol (Ipratropium [place]/Albuterol Respimat Inh) 1 puffs INH Q6R PRN PRN Reason: Shortness Of Breath Stop: 06/23/24 12:37 Amitriptyline HCl (Amitriptyline Hcl 25 Mg Tab) 25 mg PO HS [facility] Stop: 06/23/24 20:59 Last Admin: 05/25/24 20:39 Dose: 25 mg Apixaban (Apixaban 5 Mg Tablet) 5 mg PO BID MIKE Stop: 06/24/24 20:59 Last Admin: 05/26/24 07:49 Dose: 5 mg Carvedilol (Carvedilol 25 Mg Tab) 25 mg PO BID MIKE Stop: 06/23/24 16:59 Last Admin: 05/26/24 07:49 Dose: Not Given Clonidine HCl (Clonidine Hcl 0.1 Mg Tab) 0.1 mg PO BID MIKE Stop: 06/23/24 20:59 Last Admin: 05/26/24 07:48 Dose: 0.1 mg Clopidogrel Bisulfate (Clopidogrel Bisulfate 75 Mg Tab) 75 mg PO HS MIKE Stop: 06/24/24 20:59 Last Admin: 05/25/24 20:42 Dose: 75 mg Ferrous Sulfate (Ferrous Sulfate 325 Mg Tab) 325 mg PO DAILY MIKE Stop: 06/24/24 08:59 Last Admin: 05/26/24 07:49 Dose: 325 mg Folic Acid (Folic Acid 1 Mg Tab) 1 mg PO DAILY MIKE Stop: 06/24/24 08:59 Last Admin: 05/26/24 07:49 Dose: 1 mg Hydralazine HCl (Hydralazine Hcl 20 Mg/Ml Vial) 10 mg IV Q4H PRN PRN Reason: Mean arterial pressure > 130 Stop: 06/23/24 15:59 Levetiracetam 1,000 mg/ Sodium (Chloride) 110 mls @ 440 mls/hr IV BID MIKE Stop: 06/23/24 20:59 Last Admin: 05/26/24 07:48 Dose: 440 mls/hr Pantoprazole Sodium (Protonix) 40 mg in 10 mls @ 5 mls/min IV BID MIKE Stop: 06/23/24 20:59 Last Admin: 05/26/24 07:47 Dose: 5 mls/min Ondansetron HCl (Ondansetron Inj 2 Mg/Ml 2 Ml Vial) 4 mg IV Q4H PRN PRN Reason: Nausea Stop: 06/23/24 12:37 Promethazine HCl (Promethazine Hcl 25 Mg Tab) 25 mg PO Q6H PRN PRN Reason: Nausea And Vomiting Stop: 06/23/24 12:37 Rosuvastatin Calcium (Rosuvastatin Calcium 20 Mg Tab) 40 mg PO HS MIKE Stop: 06/23/24 20:59 Last Admin: 05/25/24 20:43 Dose: 40 mg Sacubitril/Valsartan (Valsartan/Sacubitril 51/49 Mg Tab) 1 tab PO BID MIKE Stop: 06/25/24 08:59 Last Admin: 05/26/24 07:49 Dose: 1 tab Venlafaxine HCl (Venlafaxine Hcl Xr 150 Mg Capxr) 150 mg PO QAM MIKE Stop: 06/24/24 08:59 Last Admin: 05/26/24 07:50 Dose: 150 mg (1) Chest pain Chest pain type: unspecified Qualified Code(s): R07.9 - Chest pain, u nspecified
--- NOTE | 2024-05-26 11:32 | Gastroenterology Progress Note ---
Date of Service May 26, 2024 Assessment & Plan (1) Acute upper gastrointestinal bleeding: Plan: -Continue PPI -NPO after midnight -EGD tomorrow (05/27/24) -Continue to monitor H/H and for further GI bleeding Admission and Anticipated Discharge Date Admission Date: May 24, 2024 Supervising Physician Co-Signing Physician Notes I saw and examined this patient with our nurse practitioner and agree with her assessment and plan. In light of recent hematemesis will proceed with endoscopy to exclude significant cause for bleeding prior to long-term anticoagulation Subjective Patient is a 59 yo female with hematemesis that is now resolved. H/H stable at 14.1/41.2. Cardiology had initially restarted Plavix & Eliquis, however they are now asking that GI move forward with EGD. Patient is agreeable to this. She denies further GI issues. She continues PPI therapy. Review of Systems Gastrointestinal: no hematemesis Physical Exam Constitutional: well developed Respiratory: normal respiratory effort Gastrointestinal (Abdomen): normal bowel sounds, soft, nontender, no hepatosplenomegaly Psychiatric: Orientation: alert and oriented x 3 Results & Data Results & Data Vital Signs (Past 12 Hours) Vital Signs Temp Pulse Pulse Resp BP BP Pulse Ox 05/26/24 11:26 36.9 C 60 18 103/71 99 05/26/24 07:52 36.4 C L 64 18 140/92 94 05/26/24 04:41 36.9 C 65 16 94/57 L 92 05/25/24 23:40 71 O2 Del Method 05/26/24 11:26 Room Air 05/26/24 07:52 Room Air 05/26/24 04:41 Room Air 05/25/24 23:40 PG Care Time/CCT Total # of Minutes Spent Total Time Spent with Patient: Total time spent is greater than 50% in coordination of care (as documented) at patient's floor/unit and/or counseling patient: Coding Level of Care Code 94920 SUB INP/OBS CARE 3/50MIN Diagnoses Acute upper gastrointestinal bleeding K92.2
[2024-05-26] MEDS: POTASSIUM CHLORIDE CRTAB 20 MEQ TABCR PO STA (12:25)
--- NOTE | 2024-05-26 12:37 | Hospitalist Progress Note ---
Date of Service May 26, 2024 Assessment & Plan (1) Hypertensive emergency: Plan: Presented with some pulmonary edema, headache (now resolved), chest pain (now resolved), elevated troponin Multiple prior episodes with a history of PRES but no current neurological s ymptoms Blood pressures are much better controlled-cardiology started Entresto and stopped home losartan Continue carvedilol, clonidine Continue to follow IV hydralazine as needed (2) Acute upper gastrointestinal bleeding: Plan: Dark red blood per patient, Hemoccult positive Hemoglobin 15.9 on admission likely heme concentrated, hgb now 14.0 but likely from hemodilution History of hematemesis 04/2022 with relatively normal EGD at that time No further vomiting since admission. May have had a Diana-Briones tear Eliquis and Plavix were held but were resumed by Cardio on evening of 05/25--> Cardiology prefers inpat eval for GI to ensure safe to continue NOAC and antiplatelet GI consulted-plan for EGD tomorrow Continue PPI bid (3) Chest pain: Plan: Nonobstructive CAD in 2017. Troponin did trend upward to 818 at peak. Chest pain is now resolved with imp rovement in BP No ischemic changes on ECG TTE with EF 50-55%, mild basal and inferior base to mid inferoseptal hypokinesis Most likely demand ischemia from hypertensive emergency Appreciate cardiology consultation-recommends medical management especially given the GI bleeding and difficulty with medical compliance historically. Plan to repeat echocardiogram in a few months No clear cause for hypertensive emergency but this is historically an issue with her There is a question of cyclical vomiting syndrome from marijuana use which causes a spike in blood pressure Also considering adding amlodipine on and follow-up if doing well with the new Entresto. Amlodipine would be for vasospasm. COntinue statin (4) Cyclic vomiting syndrome: Plan: Multiple episodes of similar. Marijuana cessation advised as per prior although suspect current episode brought on by colby Ondansetron IV 4mg q4h PRN 1st line Promethazine PO 25mg q6h PRN 2nd line Nausea is improving but appetite remains low Advanced diet to clear liquids as tolerated, NPO after midnight for EGD 05/27 (5) Obstructive sleep apnea: Plan: Not on NIV at home and declined on prior hospitalizations (6) Seizure disorder: Plan: Switched Keppra from PO to IV while not reliably taking PO meds-can resume po dosing Plan Mood disorder-continue Effexor, elavil TE Prophylaxis - Eliquis Disposition -continued stay on PCU Admission and Anticipated Discharge Date Admission Date: May 24, 2024 Subjective Pt reports able to keep down some jello today. No vomiting, no diarrhea. No headache or chest pain Tele with NSR rates 60s Discussed her care with Cardiology and GI Physical Exam Constitutional: WD/WN, vitals as above Respiratory: normal respiratory effort, lungs clear to auscultation Cardiovascular: RRR, no murmur, no edema Gastrointestinal (Abdomen): normal bowel sounds, soft, nontender, no hepatosplenomegaly Psychiatric: A+Ox3, euthymic affect Results & Data Results & Data Vital Signs (Past 12 Hours) Vital Signs Temp Pulse Resp BP BP Pulse Ox O2 Del Method 05/26/24 11:26 36.9 C 60 18 103/71 99 Room Air 05/26/24 07:52 36.4 C L 64 18 140/92 94 Room Air 05/26/24 04:41 36.9 C 65 16 94/57 L 92 Room Air Laboratory Results CBC, BMP, magnesium reviewed PG Care Time/CCT Total # of Minutes Spent Total Time Spent with Patient: Total time spent is greater than 50% in coordination of care (as documented) at patient's floor/unit and/or counseling patient: Coding Level of Care Code 14061 SUB INP/OBS CARE 2/35MIN Diagnoses Hypertensive emergency I16.1 Acute upper gastrointestinal bleeding K92.2 Chest pain, unspecified type R07.9 Chest pain type: unspecified Cyclic vomiting syndrome R11.15 Obstructive sleep apnea G47.33 Seizure disorder G40.909 (3) Chest pain Chest pain type: unspecified Qualified Code(s): R07.9 - Chest pain, unspecified
[2024-05-26] MEDS: levETIRAcetam 500 MG TAB PO SCH (20:23)
--- NOTE | 2024-05-26 21:19 | Electrocardiogram Report ---
Test Reason : Blood Pressure : */* mmHG Vent. Rate : 73 BPM Atrial Rate : 73 BPM P-R Int : 218 ms QRS Dur : 94 ms QT Int : 426 ms P-R-T Axes : 62 -63 2 degrees QTcB Int : 469 ms Sinus rhythm with 1st degree A-V block Left anterior fascicular block Cannot rule out Inferior infarct (cited on or before 01-Oct-2023) Abnormal ECG When compared with ECG of 01-Oct-2023 06:02, [place] interval has increased Incomplete right bundle branch block is no longer Present Confirmed by Quinten Sanchez ([id number] on 05/26/2024 9:19:07 PM Referred By: Confirmed By: Quinten Sanchez
[2024-05-27 06:54] LABS: Basophils # (auto) 0.11 K/uL (0.00-0.20); Basophils % (auto) 1.3 %; Eosinophils # (auto) 0.37 K/uL (0.00-0.50); Eosinophils % (auto) 4.4 %; Hematocrit (blood only) 44.3 % (37.0-47.0); Hemoglobin 14.7 g/dl (12.0-16.0); Immature Granulocytes # (auto) 0.04 K/uL (0.01-0.20); Immature Granulocytes % (auto) 0.5 %; Lymphocytes # (auto) 3.24 K/uL (1.20-3.40); Lymphocytes % (auto) 38.7 %; Mean Corpuscular Hemoglobin 31.1 pg (25.0-34.0); Mean Corpuscular Hgb Conc 33.2 g/dL (32.0-36.0); Mean Corpuscular Volume 93.9 fL (80.0-100.0); Mean Platelet Volume 10.4 fL (9.4-12.4); Monocytes # (auto) 0.65 K/uL (0.11-0.59); Monocytes % (auto) 7.8 %; Neutrophils # (auto) 3.96 K/uL (1.40-6.50); Neutrophils % (auto) 47.3 %; Platelet Count 263 K/uL (130-400); RDW Coefficient of Variation 12.3 % (11.5-14.5); RDW Standard Deviation 42.7 fL (36.4-46.3); Red Blood Count 4.72 M/uL (4.20-5.40); White Blood Count 8.37 K/ul (4.8-10.8)
[2024-05-27 06:59] LABS: BUN Creatinine Ratio 17.2 (10-20); Calcium 9.5 mg/dl (8.6-10.3); Magnesium 2.1 mg/dl (1.7-2.4); Potassium 3.8 mmol/L (3.5-5.1)
--- NOTE | 2024-05-27 10:08 | History & Physical Bridge Note ---
Date of Service May 27, 2024 History & Physical Bridge Note I have examined the patient who is resting comfortably in bed this AM. No ongoing GI bleeding. Her H/H is 14.7/44.3. I reviewed the History & Physical and in the interval since the performance of the History & Physical I have noted the following changes of clinical significance: no changes noted. Keep NPO for EGD today. Supervising Physician Co-Signing Physician Notes I saw and examined this patient with our nurse practitioner and agree with her assessment and plan. Will proceed with upper endoscopy.
--- NOTE | 2024-05-27 10:55 | Cardiology Progress Note ---
Date of Service May 27, 2024 Assessment & Plan (1) Chest pain: (2) Elevated troponin I level: (3) Hypertensive emergency: Plan: Pmhx: 1. Status post aortobifemoral winter with a post-procedure blood clot, currently on Plavix and Eliquis. 2. Negative dobutamine stress echo for ischemia, September 2021. 3. Normal biventricular size and function without evidence of significant valvular heart disease by echo 08/23/2021. 4. Hypertension. 5. Hyperlipidemia. 6. History of longstanding tobacco abuse, 2 packs per day for 28 years stopping at the age of 46. 7. Renal artery stenosis. 8. Cardiac catheterization in 2017 with mild to moderate nonobstructing coronary artery disease. 9. History of Takotsubo cardiomyopathy in 2017 with an EF as low as 40%, now preserved. 10. Obstructive sleep apnea. 11. Cerebellar stroke 11/2022 Ms. Velasquez is chest pain free. Her echo does show wall motion abnormalities in the base and inferiorly with mildly decreased EF of 50%. She has had no further chest discomfort since the 1 that woke her up prior to admission. Await further GI evaluation regarding her hematemesis. Will await for those reports to determine if further cardiac evaluation at this time. In all likelihood if she remains stable from a GI standpoint and it is felt that she can safely continue her blood thinners she may be able to be discharged and we can pursue further evaluation as an outpatient. Admission and Anticipated Discharge Date Admission Date: May 24, 2024 Subjective Cardiac follow-up. She anticipates having her GI procedure later this morning. Physical Exam Physical Exam: Awake alert and oriented x 3 resting comfortably Respiratory: Lungs are clear to auscultation bilaterally there are no rales rhonchi or wheezing Cardiovascular: Heart is regular there are no murmurs appreciated Results & Data Vital Signs (Past 12 Hours) Vital Signs Temp Pulse Resp BP BP Pulse Ox O2 Del Method 05/27/24 07:28 36.7 C 91 H 18 107/74 92 Room Air 05/27/24 03:08 36.6 C 68 18 101/69 94 Room Air 05/26/24 22:53 36.9 C 69 20 138/94 94 Room Air Laboratory Results Abnormal lab results 05/27/24 Range/Units 06:17 [place] # (Auto) 0.65 H (0.11-0.59) K/uL Glucose 118 H (70-99(Fasting)) mg/dl (1) Chest pain Chest pain type: unspecified Qualified Code(s): R07.9 - Chest pain, unspecified
--- NOTE | 2024-05-27 12:39 | Anesthesiology Consultation ---
Date of Service May 27, 2024 Assessment & Plan Consults Requested medical & cardiac Pulmonary ASA ASA4 Proposed Anesthesia Anesthesia Type: MAC Risk / Benefits Reviewed With: PT / POA / Parent / Guardian, Accepts Plan and Informed Consent Obtained History Surgery Operation Date: 05/27/24 17:10 Proposed Procedures p Esophagogastroduodenoscopy Dr. Angela Miller MD Height/Weight Height: 5 ft 3 in Weight: 84.6 kg Allergies Allergy/AdvReac Type Severity Reaction Status Date / Time napoles Allergy Intermediate Hives Verified 05/24/24 09:02 (green/hartman beans) doxycycline Allergy Intermediate Hives, Verified 05/24/24 09:02 vomiting Iodinated Contrast Media Allergy Intermediate Large Verified 05/24/24 09:02 hives, vomiting, "feeling hot" iodine Allergy Intermediate Hives, Verified 05/24/24 09:02 vomiting latex Allergy Intermediate Rash Verified 05/24/24 09:02 loperamide Allergy Intermediate Hives, Verified 05/24/24 09:02 vomiting meperidine Allergy Intermediate Hives, Verified 05/24/24 09:02 vomiting strawberry Allergy Intermediate Hives Verified 05/24/24 09:02 tomato Allergy Intermediate Hives Verified 05/24/24 09:02 prochlorperazine Allergy Mild N/V, Verified 05/24/24 09:02 itchiness Medications Home Medications Medication Instructions Recorded Confirmed Last Taken Auto Titrating CPAP #1 ea 07/15/22 10/08/23 Unknown carvedilol 25 mg tablet 25 mg PO BID #60 tabs 01/01/23 05/24/24 05/23/24 ipratropium 20 mcg-albuterol 100 1 puff inhalation Q6H PRN SOB 01/01/23 05/24/24 Unknown mcg/actuation mist for inhalation (Combivent Respimat) Medical Marijuana 09/30/23 10/08/23 Unknown cholecalciferol (vitamin D3) 50 2,000 unit PO HS 09/30/23 05/24/24 05/23/24 mcg (2,000 unit) tablet clonidine HCl 0.1 mg tablet 0.1 mg PO BID 09/30/23 05/24/24 05/23/24 ferrous sulfate 325 mg (65 mg 325 mg PO DAILY 09/30/23 05/24/24 05/23/24 iron) tablet folic acid 1 mg tablet 1 mg PO DAILY 09/30/23 05/24/24 05/23/24 mecobalamin (vitamin B12) 1,000 1,000 mcg PO DAILY 09/30/23 05/24/24 05/23/24 mcg chewable tablet multivitamin-ferrous 1 tab PO DAILY 09/30/23 05/24/24 05/23/24 fumarate-folic acid 18 mg-400 mcg tablet rosuvastatin 40 mg tablet (Crestor) 40 mg PO HS #90 tabs 10/10/23 05/24/24 05/23/24 levetiracetam 1,000 mg tablet 1,000 mg PO BID #180 tabs 10/13/23 05/24/24 05/23/24 (Keppra) pantoprazole 40 mg tablet,delayed 40 mg PO BID #180 tabs 10/31/23 05/24/24 05/23/24 release ondansetron HCl 4 mg tablet 4 mg PO Q8H PRN nausea and 11/19/23 05/24/24 Unknown vomiting #30 tabs amitriptyline 25 mg tablet 25 mg PO HS #90 tabs 12/15/23 05/24/24 05/23/24 clopidogrel 75 mg tablet (Plavix) 75 mg PO HS #90 tabs 12/23/23 05/24/24 05/23/24 venlafaxine 150 mg 150 mg PO QAM #90 caps 01/30/24 05/24/24 05/23/24 capsule,extended release 24 hr losartan 50 mg tablet 50 mg PO DAILY #90 tabs 03/03/24 05/24/24 05/23/24 apixaban 5 mg tablet (Eliquis) 5 mg PO BID #180 tabs 04/06/24 05/24/24 05/23/24 Active Medications Generic Name Dose Route Start Last Admin Trade Name Freq PRN Reason Stop Dose Admin Amitriptyline HCl 25 mg 05/24/24 21:00 05/26/24 20:23 Amitriptyline Hcl 25 Mg Tab PO 06/23/24 20:59 25 mg HS MIKE Administration Apixaban 5 mg 05/25/24 21:00 05/27/24 08:54 Apixaban 5 Mg Tablet PO 06/24/24 20:59 5 mg BID MIKE Administration Carvedilol 25 mg 05/24/24 17:00 05/27/24 08:54 Carvedilol 25 Mg Tab PO 06/23/24 16:59 25 mg BIDM MIKE Administration Clonidine HCl 0.1 mg 05/24/24 21:00 05/27/24 08:54 Clonidine Hcl 0.1 Mg Tab PO 06/23/24 20:59 0.1 mg BID MIKE Administration Clopidogrel Bisulfate 75 mg 05/25/24 21:00 05/26/24 20:23 Clopidogrel Bisulfate 75 Mg Tab PO 06/24/24 20:59 75 mg HS MIKE Administration Ferrous Sulfate 325 mg 05/25/24 09:00 05/27/24 08:55 Ferrous Sulfate 325 Mg Tab PO 06/24/24 08:59 325 mg DAILY MIKE Administration Folic Acid 1 mg 05/25/24 09:00 05/27/24 08:54 Folic Acid 1 Mg Tab PO 06/24/24 08:59 1 mg DAILY MIKE Administration Pantoprazole Sodium 40 mg in 10 mls @ 5 mls/min 05/24/24 21:00 05/27/24 08:54 Protonix IV 06/23/24 20:59 5 mls/min BID MIKE Administration Levetiracetam 1,000 mg 05/26/24 21:00 05/27/24 08:54 Levetiracetam 500 Mg Tab PO 06/25/24 20:59 1,000 mg BID MIKE Administration Rosuvastatin Calcium 40 mg 05/24/24 21:00 05/26/24 20:23 Rosuvastatin Calcium 20 Mg Tab PO 06/23/24 20:59 40 mg HS MIKE Administration Sacubitril/Valsartan 1 tab 05/26/24 09:00 05/27/24 08:55 Valsartan/Sacubitril 51/49 Mg Tab PO 06/25/24 08:59 1 tab BID MIKE Administration Venlafaxine HCl 150 mg 05/25/24 09:00 05/27/24 08:54 Venlafaxine Hcl Xr 150 Mg Capxr PO 06/24/24 08:59 150 mg QAM MIKE Administration NPO Date Last Intake of Fluids: 05/27/24 Time Last Intake of Fluids: 08:00 Date Last Intake of Solids: 05/23/24 Time Last Intake of Solids: 18:00 Past Medical History Medical History Hypertensive urgency, malignant Hypertensive urgency Elevated troponin Hypertensive emergency Hypokalemia Hypophosphatemia Tachycardia Postoperative nausea Seizures 2018 r/t hypertensive emergency > encephalopathy. last seizure 2019 Hematemesis History of COVID-19 03/18/22, pcr PH Dilshad, hospitalized day after diagnosis due to vomiting blood, discharged on 03/22/22; fever, vomiting, body chills and aches, diarrhea > resolved currently. Ischemia of right lower extremity Prediabetes diet controlled Depression Seizure Proteinuria Cyclic vomiting syndrome Hypercalcemia PRES (posterior reversible encephalopathy syndrome) has since caused seizures that started in 2019. following with PCP, last seizure per pt 08/2019 per PCP records Cannabinoid hyperemesis syndrome History of diverticulitis of colon Most recent 04/2022 Transient cerebrovascular ischemia Per records, pt unaware Cervical disc disorder Full ROM per pt Takotsubo cardiomyopathy 2016. Admitted [facility], full cardiac workup including cath. EF at the time 40%, now subsequent echos. Follows with Dr. Rodriguez NSTEMI (non-ST elevated myocardial infarction) 2017 Exercise / Class Metabolic Activity II 4-5 Yardwork/Stairs/Walk up hill Past Family History Family History Father Family history of stomach cancer Malignant neoplasm of esophagus Stomach cancer Myocardial infarction Stroke Uncle Throat cancer Family history of cancer FAMILY HISTORY OF CANCER - UNCLE - [place] FAMILY HISTORY OF CANCER - AUNT - ? KIND Grandmother (Maternal) Bone cancer Breast cancer Mother No problems noted. Brother Lung cancer Other Family history of diabetes mellitus No family history of adverse response to anesthesia No pertinent family history Denies family history of Colon cancer Ovarian cancer Prostate cancer Crohn's disease IBD (inflammatory bowel disease) Past Surgical History Surgical History History of anesthesia reaction Low O2 sats during colonoscopy 04/2022 at [facility] and post-procedure elevated BP. Per post-op anesthesia progress note, O2 96-100% RA and "Pt has increased BP 2ndary to abdominal pain. Pt also has nausea w/ dry heaves. Pt to have CT scan per Dr Patten." History of tooth extraction History of cataract surgery bilat Status post surgery RLE thrombectomy S/P aortobifemoral bypass surgery Sep 2021 [facility] History of esophagogastroduodenoscopy (EGD) H/O cervical spine surgery ACDF C4-7 Dr. [place]: Grade 1 view, Bojorquez#2 and ETT#7.5 atraumatic x 1. No issues per anesthesia postop progress note. ROM WNL History of cardiac cath 2017 > no stents History of ovarian cystectomy History of hernia surgery right inguinal hernia repair History of hysterectomy Past Anesthesia History No Hx of Anesthesia Complications and No Family Hx of Anesthesia Complications History of PONV No Hx of PONV and No Hx of Motion Sickness Social History Smoking Status: Former smoker tobacco type: cigarettes Do You Dip or Chew Tobacco: No Hx Alcohol Use: Yes Alcohol type: beer alcohol intake frequency: holidays/special occasions only Hx Substance Use: Yes substance use type: marijuana Substance Use Type Other:: medical card > flower Last Used Substance: Days (ago) Last Used Substance Other:: 4 days ago last used. Physical Exam Vital Signs Last Vital Signs Temp 36.4 C L 05/27/24 12:06 Pulse 71 05/27/24 12:06 Resp 16 05/27/24 12:06 BP 129/90 05/27/24 12:06 Pulse Ox 97 05/27/24 12:06 O2 Del Method Room Air 05/27/24 12:06 Constitutional no acute distress ENMT Mouth: + dentition abnormality and + edentulous Thyromental Distance: > or= 3.5 Finger Breadths Mallampati Class: II Neck normal visual inspection Respiratory normal respiratory effort; no respiratory distress Auscultation: lungs clear to auscultation bilaterally Cardiovascular Rate/Rhythm: regular rate and regular rhythm Heart Sounds: no murmur Musculoskeletal Spine: normal cervical ROM Psychiatric Orientation: alert and oriented x 3 Testing Laboratory Results 05/27/24 06:17 05/27/24 06:17 PT 10.4 Seconds (9.0-12.0) 05/24/24 06:16 INR 1.0 (0.9-1.1) 05/24/24 06:16 APTT 28 Seconds (21-31) 05/24/24 06:16 Urine Color Yellow 05/24/24 08:43 Urine Appearance Clear (Clear) 05/24/24 08:43 Urine pH 7.0 (4.5-7.5) 05/24/24 08:43 Ur Specific [place] 1.022 (1.000-1.030) 05/24/24 08:43 Urine Protein 1+ (Negative) H 05/24/24 08:43 Urine Glucose (UA) Negative (Negative) 05/24/24 08:43 Urine Ketones Negative (Negative) 05/24/24 08:43 Urine Nitrite Negative (Negative) 05/24/24 08:43 Ur Leukocyte Esterase Negative (Negative) 05/24/24 08:43 Urine WBC (Auto) 0-5 /hpf (0-5) 05/24/24 08:43 Urine RBC (Auto) 11-20 /hpf (0-2) H 05/24/24 08:43 U Hyaline Cast (Auto) 0-2 /lpf (0-2) 05/24/24 08:43 U Epithel Cells (Auto) 0-2 /hpf (0-2) 05/24/24 08:43 Urine Bacteria (Auto) None Seen (None Seen) 05/24/24 08:43 Day of Procedure Evaluation. Date of Surgery May 27, 2024 Height/Weight Height: 5 ft 3 in Weight: 84.6 kg Vital Signs Last Vital Signs Temp 36.4 C L 05/27/24 12:06 Pulse 71 05/27/24 12:06 Resp 16 05/27/24 12:06 BP 129/90 05/27/24 12:06 Pulse Ox 97 05/27/24 12:06 O2 Del Method Room Air 05/27/24 12:06 Allergies Allergy/AdvReac Type Severity Reaction Status Date / Time napoles Allergy Intermediate Hives Verified 05/24/24 09:02 (green/hartman beans) doxycycline Allergy Intermediate Hives, Verified 05/24/24 09:02 vomiting Iodinated Contrast Media Allergy Intermediate Large Verified 05/24/24 09:02 hives, vomiting, "feeling hot" iodine Allergy Intermediate Hives, Verified 05/24/24 09:02 vomiting latex Allergy Intermediate Rash Verified 05/24/24 09:02 loperamide Allergy Intermediate Hives, Verified 05/24/24 09:02 vomiting meperidine Allergy Intermediate Hives, Verified 05/24/24 09:02 vomiting strawberry Allergy Intermediate Hives Verified 05/24/24 09:02 tomato Allergy Intermediate Hives Verified 05/24/24 09:02 prochlorperazine Allergy Mild N/V, Verified 05/24/24 09:02 itchiness Medications Home Medications Medication Instructions Recorded Confirmed Last Taken Auto Titrating CPAP #1 ea 07/15/22 10/08/23 Unknown carvedilol 25 mg tablet 25 mg PO BID #60 tabs 01/01/23 05/24/24 05/23/24 ipratropium 20 mcg-albuterol 100 1 puff inhalation Q6H PRN SOB 01/01/23 05/24/24 Unknown mcg/actuation mist for inhalation (Combivent Respimat) Medical Marijuana 09/30/23 10/08/23 Unknown cholecalciferol (vitamin D3) 50 2,000 unit PO HS 09/30/23 05/24/24 05/23/24 mcg (2,000 unit) tablet clonidine HCl 0.1 mg tablet 0.1 mg PO BID 09/30/23 05/24/24 05/23/24 ferrous sulfate 325 mg (65 mg 325 mg PO DAILY 09/30/23 05/24/24 05/23/24 iron) tablet folic acid 1 mg tablet 1 mg PO DAILY 09/30/23 05/24/24 05/23/24 mecobalamin (vitamin B12) 1,000 1,000 mcg PO DAILY 09/30/23 05/24/24 05/23/24 mcg chewable tablet multivitamin-ferrous 1 tab PO DAILY 09/30/23 05/24/24 05/23/24 fumarate-folic acid 18 mg-400 mcg tablet rosuvastatin 40 mg tablet (Crestor) 40 mg PO HS #90 tabs 10/10/23 05/24/24 05/23/24 levetiracetam 1,000 mg tablet 1,000 mg PO BID #180 tabs 10/13/23 05/24/24 05/23/24 (Keppra) pantoprazole 40 mg tablet,delayed 40 mg PO BID #180 tabs 10/31/23 05/24/24 05/23/24 release ondansetron HCl 4 mg tablet 4 mg PO Q8H PRN nausea and 11/19/23 05/24/24 Unknown vomiting #30 tabs amitriptyline 25 mg tablet 25 mg PO HS #90 tabs 12/15/23 05/24/24 05/23/24 clopidogrel 75 mg tablet (Plavix) 75 mg PO HS #90 tabs 12/23/23 05/24/24 05/23/24 venlafaxine 150 mg 150 mg PO QAM #90 caps 01/30/24 05/24/24 05/23/24 capsule,extended release 24 hr losartan 50 mg tablet 50 mg PO DAILY #90 tabs 03/03/24 05/24/24 05/23/24 apixaban 5 mg tablet (Eliquis) 5 mg PO BID #180 tabs 04/06/24 05/24/24 05/23/24 Active Medications Generic Name Dose Route Start Last Admin Trade Name Freq PRN Reason Stop Dose Admin Amitriptyline HCl 25 mg 05/24/24 21:00 05/26/24 20:23 Amitriptyline Hcl 25 Mg Tab PO 06/23/24 20:59 25 mg HS MIKE Administration Apixaban 5 mg 05/25/24 21:00 05/27/24 08:54 Apixaban 5 Mg Tablet PO 06/24/24 20:59 5 mg BID MIKE Administration Carvedilol 25 mg 05/24/24 17:00 05/27/24 08:54 Carvedilol 25 Mg Tab PO 06/23/24 16:59 25 mg BIDM MIKE Administration Clonidine HCl 0.1 mg 05/24/24 21:00 05/27/24 08:54 Clonidine Hcl 0.1 Mg Tab PO 06/23/24 20:59 0.1 mg BID MIKE Administration Clopidogrel Bisulfate 75 mg 05/25/24 21:00 05/26/24 20:23 Clopidogrel Bisulfate 75 Mg Tab PO 06/24/24 20:59 75 mg HS MIKE Administration Ferrous Sulfate 325 mg 05/25/24 09:00 05/27/24 08:55 Ferrous Sulfate 325 Mg Tab PO 06/24/24 08:59 325 mg DAILY MIKE Administration Folic Acid 1 mg 05/25/24 09:00 05/27/24 08:54 Folic Acid 1 Mg Tab PO 06/24/24 08:59 1 mg DAILY MIKE Administration Pantoprazole Sodium 40 mg in 10 mls @ 5 mls/min 05/24/24 21:00 05/27/24 08:54 Protonix IV 06/23/24 20:59 5 mls/min BID MIKE Administration Levetiracetam 1,000 mg 05/26/24 21:00 05/27/24 08:54 Levetiracetam 500 Mg Tab PO 06/25/24 20:59 1,000 mg BID MIKE Administration Rosuvastatin Calcium 40 mg 05/24/24 21:00 05/26/24 20:23 Rosuvastatin Calcium 20 Mg Tab PO 06/23/24 20:59 40 mg HS MIKE Administration Sacubitril/Valsartan 1 tab 05/26/24 09:00 05/27/24 08:55 Valsartan/Sacubitril 51/49 Mg Tab PO 06/25/24 08:59 1 tab BID MIKE Administration Venlafaxine HCl 150 mg 05/25/24 09:00 05/27/24 08:54 Venlafaxine Hcl Xr 150 Mg Capxr PO 06/24/24 08:59 150 mg QAM MIKE Administration Past Anesthesia History No Hx of Anesthesia Complications and No Family Hx of Anesthesia Complications History of PONV No Hx of PONV and No Hx of Motion Sickness NPO Date Last Intake of Fluids: 05/27/24 Time Last Intake of Fluids: 08:00 Date Last Intake of Solids: 05/23/24 Time Last Intake of Solids: 18:00 Home Medications Home Medications Medication Instructions Recorded Confirmed Last Taken Auto Titrating CPAP #1 ea 07/15/22 10/08/23 Unknown carvedilol 25 mg tablet 25 mg PO BID #60 tabs 01/01/23 05/24/24 05/23/24 ipratropium 20 mcg-albuterol 100 1 puff inhalation Q6H PRN SOB 01/01/23 05/24/24 Unknown mcg/actuation mist for inhalation (Combivent Respimat) Medical Marijuana 09/30/23 10/08/23 Unknown cholecalciferol (vitamin D3) 50 2,000 unit PO HS 09/30/23 05/24/24 05/23/24 mcg (2,000 unit) tablet clonidine HCl 0.1 mg tablet 0.1 mg PO BID 09/30/23 05/24/24 05/23/24 ferrous sulfate 325 mg (65 mg 325 mg PO DAILY 09/30/23 05/24/24 05/23/24 iron) tablet folic acid 1 mg tablet 1 mg PO DAILY 09/30/23 05/24/24 05/23/24 mecobalamin (vitamin B12) 1,000 1,000 mcg PO DAILY 09/30/23 05/24/24 05/23/24 mcg chewable tablet multivitamin-ferrous 1 tab PO DAILY 09/30/23 05/24/24 05/23/24 fumarate-folic acid 18 mg-400 mcg tablet rosuvastatin 40 mg tablet (Crestor) 40 mg PO HS #90 tabs 10/10/23 05/24/24 05/23/24 levetiracetam 1,000 mg tablet 1,000 mg PO BID #180 tabs 10/13/23 05/24/24 05/23/24 (Keppra) pantoprazole 40 mg tablet,delayed 40 mg PO BID #180 tabs 10/31/23 05/24/24 05/23/24 release ondansetron HCl 4 mg tablet 4 mg PO Q8H PRN nausea and 11/19/23 05/24/24 Unknown vomiting #30 tabs amitriptyline 25 mg tablet 25 mg PO HS #90 tabs 12/15/23 05/24/24 05/23/24 clopidogrel 75 mg tablet (Plavix) 75 mg PO HS #90 tabs 12/23/23 05/24/24 05/23/24 venlafaxine 150 mg 150 mg PO QAM #90 caps 01/30/24 05/24/24 05/23/24 capsule,extended release 24 hr losartan 50 mg tablet 50 mg PO DAILY #90 tabs 03/03/24 05/24/24 05/23/24 apixaban 5 mg tablet (Eliquis) 5 mg PO BID #180 tabs 04/06/24 05/24/24 05/23/24 Active Medications Generic Name Dose Route Start Last Admin Trade Name Freq PRN Reason Stop Dose Admin Amitriptyline HCl 25 mg 05/24/24 21:00 05/26/24 20:23 Amitriptyline Hcl 25 Mg Tab PO 06/23/24 20:59 25 mg HS MIKE Administration Apixaban 5 mg 05/25/24 21:00 05/27/24 08:54 Apixaban 5 Mg Tablet PO 06/24/24 20:59 5 mg BID MIKE Administration Carvedilol 25 mg 05/24/24 17:00 05/27/24 08:54 Carvedilol 25 Mg Tab PO 06/23/24 16:59 25 mg BIDM MIKE Administration Clonidine HCl 0.1 mg 05/24/24 21:00 05/27/24 08:54 Clonidine Hcl 0.1 Mg Tab PO 06/23/24 20:59 0.1 mg BID MIKE Administration Clopidogrel Bisulfate 75 mg 05/25/24 21:00 05/26/24 20:23 Clopidogrel Bisulfate 75 Mg Tab PO 06/24/24 20:59 75 mg HS MIKE Administration Ferrous Sulfate 325 mg 05/25/24 09:00 05/27/24 08:55 Ferrous Sulfate 325 Mg Tab PO 06/24/24 08:59 325 mg DAILY MIKE Administration Folic Acid 1 mg 05/25/24 09:00 05/27/24 08:54 Folic Acid 1 Mg Tab PO 06/24/24 08:59 1 mg DAILY MIKE Administration Pantoprazole Sodium 40 mg in 10 mls @ 5 mls/min 05/24/24 21:00 05/27/24 08:54 Protonix IV 06/23/24 20:59 5 mls/min BID MIKE Administration Levetiracetam 1,000 mg 05/26/24 21:00 05/27/24 08:54 Levetiracetam 500 Mg Tab PO 06/25/24 20:59 1,000 mg BID MIKE Administration Rosuvastatin Calcium 40 mg 05/24/24 21:00 05/26/24 20:23 Rosuvastatin Calcium 20 Mg Tab PO 06/23/24 20:59 40 mg HS MIKE Administration Sacubitril/Valsartan 1 tab 05/26/24 09:00 05/27/24 08:55 Valsartan/Sacubitril 51/49 Mg Tab PO 06/25/24 08:59 1 tab BID MIKE Administration Venlafaxine HCl 150 mg 05/25/24 09:00 05/27/24 08:54 Venlafaxine Hcl Xr 150 Mg Capxr PO 06/24/24 08:59 150 mg QAM MIKE Administration Laboratory Results Labs and studies reviewed. Cardiology feels she has stabilized with medical treatment well enough for a procedure. Exercise / Class Metabolic Activity Metabolic Activity: II 4-5 Yardwork/Stairs/Walk up hill Physical Exam Constitutional: no acute distress Mouth: + dentition abnormality and + edentulous Thyromental Distance: > or= 3.5 Finger Breadths Mallampati Class: II Neck: + visual inspection normal Respiratory: + respiratory effort normal and + clear to auscultation bilaterally; no respiratory distress Cardiovascular: + regular rate and + regular rhythm; no murmur Musculoskeletal: no limited cervical ROM Psychiatric: + alert and + oriented x 3 ASA ASA4 Proposed Anesthesia Proposed Anesthesia: MAC Risk / Benefits Reviewed With: PT / POA / Parent / Guardian, Accepts Plan and Informed Consent Obtained Data & Results Home Medications Medication Instructions Recorded Confirmed Type Auto Titrating CPAP #1 ea 07/15/22 10/08/23 Rx carvedilol 25 mg tablet 25 mg PO BID #60 tabs 01/01/23 05/24/24 Rx ipratropium 20 mcg-albuterol 100 1 puff inhalation Q6H PRN SOB 01/01/23 05/24/24 History mcg/actuation mist for inhalation (Combivent Respimat) Medical Marijuana 09/30/23 10/08/23 History cholecalciferol (vitamin D3) 50 2,000 unit PO HS 09/30/23 05/24/24 History mcg (2,000 unit) tablet clonidine HCl 0.1 mg tablet 0.1 mg PO BID 09/30/23 05/24/24 History ferrous sulfate 325 mg (65 mg 325 mg PO DAILY 09/30/23 05/24/24 History iron) tablet folic acid 1 mg tablet 1 mg PO DAILY 09/30/23 05/24/24 History mecobalamin (vitamin B12) 1,000 1,000 mcg PO DAILY 09/30/23 05/24/24 History mcg chewable tablet multivitamin-ferrous 1 tab PO DAILY 09/30/23 05/24/24 History fumarate-folic acid 18 mg-400 mcg tablet rosuvastatin 40 mg tablet (Crestor) 40 mg PO HS #90 tabs 10/10/23 05/24/24 Rx levetiracetam 1,000 mg tablet 1,000 mg PO BID #180 tabs 10/13/23 05/24/24 Rx (Keppra) pantoprazole 40 mg tablet,delayed 40 mg PO BID #180 tabs 10/31/23 05/24/24 Rx release ondansetron HCl 4 mg tablet 4 mg PO Q8H PRN nausea and 11/19/23 05/24/24 Rx vomiting #30 tabs amitriptyline 25 mg tablet 25 mg PO HS #90 tabs 12/15/23 05/24/24 Rx clopidogrel 75 mg tablet (Plavix) 75 mg PO HS #90 tabs 12/23/23 05/24/24 Rx venlafaxine 150 mg 150 mg PO QAM #90 caps 01/30/24 05/24/24 Rx capsule,extended release 24 hr losartan 50 mg tablet 50 mg PO DAILY #90 tabs 03/03/24 05/24/24 Rx apixaban 5 mg tablet (Eliquis) 5 mg PO BID #180 tabs 04/06/24 05/24/24 Rx ECOG/Weight/Vitals Weight: 84.6 kg Vitals Signs: Vital Signs Temp Pulse Resp BP BP Pulse Ox O2 Del Method 05/27/24 12:06 36.4 C L 71 16 129/90 97 Room Air 05/27/24 11:27 36.8 C 57 L 18 114/72 91 Room Air 05/27/24 07:28 36.7 C 91 H 18 107/74 92 Room Air 05/27/24 03:08 36.6 C 68 18 101/69 94 Room Air Laboratory Values 05/27/24 05/26/24 05/25/24 Range/Units 06:17 05:42 11:56 WBC 8.37 8.99 (4.8-10.8) K/ul RBC 4.72 4.50 (4.20-5.40) M/uL Hgb 14.7 14.1 14.4 (12.0-16.0) g/dl Hct 44.3 41.2 43.0 (37.0-47.0) % MCV 93.9 91.6 (80.0-100.0) fL MCH 31.1 31.3 (25.0-34.0) pg MCHC 33.2 34.2 (32.0-36.0) g/dL RDW Std Deviation 42.7 42.4 (36.4-46.3) fL RDW Coeff of Jose Luis 12.3 12.6 (11.5-14.5) % Plt Count 263 266 (130-400) K/uL MPV 10.4 10.7 (9.4-12.4) fL Immature Gran % (Auto) 0.5 0.2 % Neut % (Auto) 47.3 47.6 % Lymph % (Auto) 38.7 42.0 % Clare % (Auto) 7.8 6.9 % Eos % (Auto) 4.4 2.1 % Baso % (Auto) 1.3 1.2 % Neut # (Auto) 3.96 4.27 (1.40-6.50) K/uL Lymph # (Auto) 3.24 3.78 H (1.20-3.40) K/uL Clare # (Auto) 0.65 H 0.62 H (0.11-0.59) K/uL Eos # (Auto) 0.37 0.19 (0.00-0.50) K/uL Baso # (Auto) 0.11 0.11 (0.00-0.20) K/uL Immature Gran # (Auto) 0.04 0.02 (0.01-0.20) K/uL PT (9.0-12.0) Seconds INR (0.9-1.1) APTT (21-31) Seconds PTT Ratio Sodium 142 139 (136-145) mmol/L Potassium 3.8 3.3 L (3.5-5.1) mmol/L Chloride 104 103 (98-107) mmol/L Carbon Dioxide 30 27 (21-32) mmol/L Anion Gap 8 9 (3-11) BUN 16 21 (6-23) mg/dl Creatinine 0.93 0.86 (0.6-1.2) mg/dl Est Cr Clr Drug Dosing 68.0 73.9 ml/min eGFR 71.24 78.26 BUN/Creatinine Ratio 17.2 24.4 H (10-20) Glucose 118 H 96 (70-99(Fasting)) mg/dl Calcium 9.5 9.3 (8.6-10.3) mg/dl Magnesium 2.1 2.2 (1.7-2.4) mg/dl Total Bilirubin (0.2-1.0) mg/dl AST (13-39) U/L ALT (7-52) U/L Alkaline Phosphatase (34-104) U/L Troponin I High Sens (0-14) pg/ml B-Natriuretic Peptide (0-100) pg/ml Total Protein (6.0-8.3) gm/dl Albumin (3.4-5.0) gm/dl Globulin (2.5-4.0) gm/dl Albumin/Globulin Ratio (0.9-2) Lipase (11-82) U/L Procalcitonin (0-0.5) ng/ml Urine Color Urine Appearance (Clear) Urine pH (4.5-7.5) Ur Specific [place] (1.000-1.030) Urine Protein (Negative) Urine Glucose (UA) (Negative) Urine Ketones (Negative) Urine Blood (Negative) Urine Nitrite (Negative) Urine Bilirubin (Negative) Urine Urobilinogen (Negative) Ur Leukocyte Esterase (Negative) Urine WBC (Auto) (0-5) /hpf Urine RBC (Auto) (0-2) /hpf U Hyaline Cast (Auto) (0-2) /lpf U Epithel Cells (Auto) (0-2) /hpf Urine Bacteria (Auto) (None Seen) Gastric Fluid pH Gastric Occult Blood (Negative) Adenovirus (PCR) (NotDetected) B. pertussis DNA (PCR) (NotDetected) B.parapertussis DNA PCR (NotDetected) C. pneumoniae DNA (PCR) (NotDetected) Coronavirus OC43 (PCR) (NotDetected) Coronavirus HKU1 (PCR) (NotDetected) Coronavirus 229E (PCR) (NotDetected) SARS-CoV-2 (PCR) (NotDetected) Coronavirus NL63 (PCR) (NotDetected) Human Metapneumovir PCR (NotDetected) Influenza Type A (PCR) (NotDetected) Influenza Type B (PCR) (NotDetected) M. pneumoniae (PCR) (NotDetected) Parainfluenza 1 (PCR) (NotDetected) Parainfluenza 2 (PCR) (NotDetected) Parainfluenza 3 (PCR) (NotDetected) Parainfluenza 4 (PCR) (NotDetected) RSV (PCR) (NotDetected) Entero/Rhino (PCR) (NotDetected) 05/25/24 05/24/24 05/24/24 Range/Units 04:33 19:39 12:00 WBC 12.53 H (4.8-10.8) K/ul RBC 4.92 (4.20-5.40) M/uL Hgb 15.0 15.5 16.3 H (12.0-16.0) g/dl Hct 44.6 44.7 45.5 (37.0-47.0) % MCV 90.7 (80.0-100.0) fL MCH 30.5 (25.0-34.0) pg MCHC 33.6 (32.0-36.0) g/dL RDW Std Deviation 40.8 (36.4-46.3) fL RDW Coeff of Jose Luis 12.5 (11.5-14.5) % Plt Count 318 (130-400) K/uL MPV 10.5 (9.4-12.4) fL Immature Gran % (Auto) 0.2 % Neut % (Auto) 67.0 % Lymph % (Auto) 24.7 % Clare % (Auto) 7.5 % Eos % (Auto) 0.2 % Baso % (Auto) 0.4 % Neut # (Auto) 8.38 H (1.40-6.50) K/uL Lymph # (Auto) 3.10 (1.20-3.40) K/uL Clare # (Auto) 0.94 H (0.11-0.59) K/uL Eos # (Auto) 0.03 (0.00-0.50) K/uL Baso # (Auto) 0.05 (0.00-0.20) K/uL Immature Gran # (Auto) 0.03 (0.01-0.20) K/uL PT (9.0-12.0) Seconds INR (0.9-1.1) APTT (21-31) Seconds PTT Ratio Sodium 138 (136-145) mmol/L Potassium 3.2 L (3.5-5.1) mmol/L Chloride 100 (98-107) mmol/L Carbon Dioxide 26 (21-32) mmol/L Anion Gap 12 H (3-11) BUN 20 (6-23) mg/dl Creatinine 1.00 (0.6-1.2) mg/dl Est Cr Clr Drug Dosing 63.3 ml/min eGFR 65.30 BUN/Creatinine Ratio 20.0 (10-20) Glucose 119 H (70-99(Fasting)) mg/dl Calcium 9.8 (8.6-10.3) mg/dl Magnesium 1.7 (1.7-2.4) mg/dl Total Bilirubin 0.6 (0.2-1.0) mg/dl AST 21 (13-39) U/L ALT 23 (7-52) U/L Alkaline Phosphatase 81 (34-104) U/L Troponin I High Sens 381.5 H* D 818.3 H* D 347.3 H* D (0-14) pg/ml B-Natriuretic Peptide 185 H (0-100) pg/ml Total Protein 7.3 (6.0-8.3) gm/dl Albumin 4.4 (3.4-5.0) gm/dl Globulin 2.9 (2.5-4.0) gm/dl Albumin/Globulin Ratio 1.5 (0.9-2) Lipase (11-82) U/L Procalcitonin (0-0.5) ng/ml Urine Color Urine Appearance (Clear) Urine pH (4.5-7.5) Ur Specific O[place]phant (1.000-1.030) Urine Protein (Negative) Urine Glucose (UA) (Negative) Urine Ketones (Negative) Urine Blood (Negative) Urine Nitrite (Negative) Urine Bilirubin (Negative) Urine Urobilinogen (Negative) Ur Leukocyte Esterase (Negative) Urine WBC (Auto) (0-5) /hpf Urine RBC (Auto) (0-2) /hpf U Hyaline Cast (Auto) (0-2) /lpf U Epithel Cells (Auto) (0-2) /hpf Urine Bacteria (Auto) (None Seen) Gastric Fluid pH Gastric Occult Blood (Negative) Adenovirus (PCR) (NotDetected) B. pertussis DNA (PCR) (NotDetected) B.parapertussis DNA PCR (NotDetected) C. pneumoniae DNA (PCR) (NotDetected) Coronavirus OC43 (PCR) (NotDetected) Coronavirus HKU1 (PCR) (NotDetected) Coronavirus 229E (PCR) (NotDetected) SARS-CoV-2 (PCR) (NotDetected) Coronavirus NL63 (PCR) (NotDetected) Human Metapneumovir PCR (NotDetected) Influenza Type A (PCR) (NotDetected) Influenza Type B (PCR) (NotDetected) M. pneumoniae (PCR) (NotDetected) Parainfluenza 1 (PCR) (NotDetected) Parainfluenza 2 (PCR) (NotDetected) Parainfluenza 3 (PCR) (NotDetected) Parainfluenza 4 (PCR) (NotDetected) RSV (PCR) (NotDetected) Entero/Rhino (PCR) (NotDetected) 05/24/24 05/24/24 05/24/24 Range/Units 11:09 09:02 08:43 WBC (4.8-10.8) K/ul RBC (4.20-5.40) M/uL Hgb (12.0-16.0) g/dl Hct (37.0-47.0) % MCV (80.0-100.0) fL MCH (25.0-34.0) pg MCHC (32.0-36.0) g/dL RDW Std Deviation (36.4-46.3) fL RDW Coeff of Jose Luis (11.5-14.5) % Plt Count (130-400) K/uL MPV (9.4-12.4) fL Immature Gran % (Auto) % Neut % (Auto) % Lymph % (Auto) % Clare % (Auto) % Eos % (Auto) % Baso % (Auto) % Neut # (Auto) (1.40-6.50) K/uL Lymph # (Auto) (1.20-3.40) K/uL Clare # (Auto) (0.11-0.59) K/uL Eos # (Auto) (0.00-0.50) K/uL Baso # (Auto) (0.00-0.20) K/uL Immature Gran # (Auto) (0.01-0.20) K/uL PT (9.0-12.0) Seconds INR (0.9-1.1) APTT (21-31) Seconds PTT Ratio Sodium (136-145) mmol/L Potassium (3.5-5.1) mmol/L Chloride (98-107) mmol/L Carbon Dioxide (21-32) mmol/L Anion Gap (3-11) BUN (6-23) mg/dl Creatinine (0.6-1.2) mg/dl Est Cr Clr Drug Dosing ml/min eGFR BUN/Creatinine Ratio (10-20) Glucose (70-99(Fasting)) mg/dl Calcium (8.6-10.3) mg/dl Magnesium (1.7-2.4) mg/dl Total Bilirubin (0.2-1.0) mg/dl AST (13-39) U/L ALT (7-52) U/L Alkaline Phosphatase (34-104) U/L Troponin I High Sens 286.9 H* (0-14) pg/ml B-Natriuretic Peptide (0-100) pg/ml Total Protein (6.0-8.3) gm/dl Albumin (3.4-5.0) gm/dl Globulin (2.5-4.0) gm/dl Albumin/Globulin Ratio (0.9-2) Lipase (11-82) U/L Procalcitonin (0-0.5) ng/ml Urine Color Yellow Urine Appearance Clear (Clear) Urine pH 7.0 (4.5-7.5) Ur Specific [place] 1.022 (1.000-1.030) Urine Protein 1+ H (Negative) Urine Glucose (UA) Negative (Negative) Urine Ketones Negative (Negative) Urine Blood 2+ H (Negative) Urine Nitrite Negative (Negative) Urine Bilirubin Negative (Negative) Urine Urobilinogen Negative (Negative) Ur Leukocyte Esterase Negative (Negative) Urine WBC (Auto) 0-5 (0-5) /hpf Urine RBC (Auto) 11-20 H (0-2) /hpf U Hyaline Cast (Auto) 0-2 (0-2) /lpf U Epithel Cells (Auto) 0-2 (0-2) /hpf Urine Bacteria (Auto) None Seen (None Seen) Gastric Fluid pH Gastric Occult Blood (Negative) Adenovirus (PCR) Not Detected (NotDetected) B. pertussis DNA (PCR) Not Detected (NotDetected) B.parapertussis DNA PCR Not Detected (NotDetected) C. pneumoniae DNA (PCR) Not Detected (NotDetected) Coronavirus OC43 (PCR) Not Detected (NotDetected) Coronavirus HKU1 (PCR) Not Detected (NotDetected) Coronavirus 229E (PCR) Not Detected (NotDetected) SARS-CoV-2 (PCR) Not Detected (NotDetected) Coronavirus NL63 (PCR) Not Detected (NotDetected) Human Metapneumovir PCR Not Detected (NotDetected) Influenza Type A (PCR) Not Detected (NotDetected) Influenza Type B (PCR) Not Detected (NotDetected) M. pneumoniae (PCR) Not Detected (NotDetected) Parainfluenza 1 (PCR) Not Detected (NotDetected) Parainfluenza 2 (PCR) Not Detected (NotDetected) Parainfluenza 3 (PCR) Not Detected (NotDetected) Parainfluenza 4 (PCR) Not Detected (NotDetected) RSV (PCR) Not Detected (NotDetected) Entero/Rhino (PCR) Not Detected (NotDetected) 05/24/24 05/24/24 Range/Units 06:37 06:16 WBC 11.41 H (4.8-10.8) K/ul RBC 5.21 (4.20-5.40) M/uL Hgb 15.9 (12.0-16.0) g/dl Hct 48.2 H (37.0-47.0) % MCV 92.5 (80.0-100.0) fL MCH 30.5 (25.0-34.0) pg MCHC 33.0 (32.0-36.0) g/dL RDW Std Deviation 42.3 (36.4-46.3) fL RDW Coeff of Jose Luis 12.3 (11.5-14.5) % Plt Count 337 (130-400) K/uL MPV 10.6 (9.4-12.4) fL Immature Gran % (Auto) 0.4 % Neut % (Auto) 59.2 % Lymph % (Auto) 28.6 % Clare % (Auto) 6.7 % Eos % (Auto) 3.8 % Baso % (Auto) 1.3 % Neut # (Auto) 6.76 H (1.40-6.50) K/uL Lymph # (Auto) 3.26 (1.20-3.40) K/uL Clare # (Auto) 0.76 H (0.11-0.59) K/uL Eos # (Auto) 0.43 (0.00-0.50) K/uL Baso # (Auto) 0.15 (0.00-0.20) K/uL Immature Gran # (Auto) 0.05 (0.01-0.20) K/uL PT 10.4 (9.0-12.0) Seconds INR 1.0 (0.9-1.1) APTT 28 (21-31) Seconds PTT Ratio 1.0 Sodium 141 (136-145) mmol/L Potassium 3.7 (3.5-5.1) mmol/L Chloride 103 (98-107) mmol/L Carbon Dioxide 29 (21-32) mmol/L Anion Gap 9 (3-11) BUN 20 (6-23) mg/dl Creatinine 0.99 (0.6-1.2) mg/dl Est Cr Clr Drug Dosing 65.9 ml/min eGFR 66.09 BUN/Creatinine Ratio 20.2 H (10-20) Glucose 197 H (70-99(Fasting)) mg/dl Calcium 10.3 (8.6-10.3) mg/dl Magnesium (1.7-2.4) mg/dl Total Bilirubin 0.4 (0.2-1.0) mg/dl AST 24 (13-39) U/L ALT 25 (7-52) U/L Alkaline Phosphatase 112 H (34-104) U/L Troponin I High Sens 283.7 H* (0-14) pg/ml B-Natriuretic Peptide (0-100) pg/ml Total Protein 8.0 (6.0-8.3) gm/dl Albumin 4.8 (3.4-5.0) gm/dl Globulin 3.2 (2.5-4.0) gm/dl Albumin/Globulin Ratio 1.5 (0.9-2) Lipase 40 (11-82) U/L Procalcitonin 0.04 (0-0.5) ng/ml Urine Color Urine Appearance (Clear) Urine pH (4.5-7.5) Ur Specific [place] (1.000-1.030) Urine Protein (Negative) Urine Glucose (UA) (Negative) Urine Ketones (Negative) Urine Blood (Negative) Urine Nitrite (Negative) Urine Bilirubin (Negative) Urine Urobilinogen (Negative) Ur Leukocyte Esterase (Negative) Urine WBC (Auto) (0-5) /hpf Urine RBC (Auto) (0-2) /hpf U Hyaline Cast (Auto) (0-2) /lpf U Epithel Cells (Auto) (0-2) /hpf Urine Bacteria (Auto) (None Seen) Gastric Fluid pH 3 Gastric Occult Blood Positive A (Negative) Adenovirus (PCR) (NotDetected) B. pertussis DNA (PCR) (NotDetected) B.parapertussis DNA PCR (NotDetected) C. pneumoniae DNA (PCR) (NotDetected) Coronavirus OC43 (PCR) (NotDetected) Coronavirus HKU1 (PCR) (NotDetected) Coronavirus 229E (PCR) (NotDetected) SARS-CoV-2 (PCR) (NotDetected) Coronavirus NL63 (PCR) (NotDetected) Human Metapneumovir PCR (NotDetected) Influenza Type A (PCR) (NotDetected) Influenza Type B (PCR) (NotDetected) M. pneumoniae (PCR) (NotDetected) Parainfluenza 1 (PCR) (NotDetected) Parainfluenza 2 (PCR) (NotDetected) Parainfluenza 3 (PCR) (NotDetected) Parainfluenza 4 (PCR) (NotDetected) RSV (PCR) (NotDetected) Entero/Rhino (PCR) (NotDetected)
--- NOTE | 2024-05-27 12:56 | GI REPORT ---
[facility] Patient: ONEL MONTOYA : 1965 Sex at : Female Age: 59 Years Procedure: Upper GI endoscopy Date: 05/27/2024 Attending Physician: Dmitri Miller MD Referring MD: Franck Pereira MD Indications: - Recent gastrointestinal bleeding Medications: - Monitored Anesthesia Care Complications: - No immediate complications. Procedure: - Prior to the procedure, a History and Physical was performed, and patient medications and allergies were reviewed. The patient's tolerance of previous anesthesia was also reviewed. The risks and benefits of the procedure and the sedation options and risks were discussed with the patient. All questions were answered, and informed consent was obtained. [Anticoagulant Agents] [Days Prior to Procedure]. [ASA Grade]. After reviewing the risks and benefits, the patient was deemed in satisfactory condition to undergo the procedure. - The egd scope was introduced through the mouth and advanced to the second part of the duodenum. - The upper GI endoscopy was accomplished without difficulty. - The patient tolerated the procedure well. Findings: - The examined esophagus was normal. - Localized mild inflammation [Hemorrhage] characterized by erythema was found in the gastric fundus. - The examined duodenum was normal. Impression: - Normal esophagus. - Gastritis, characterized by erythema. - Normal examined duodenum. - No specimens collected. Recommendation: - Resume previous diet. - Patient has a contact number available for emergencies. The signs and symptoms of potential delayed complications were discussed with the patient. Return to normal activities tomorrow. Written discharge instructions were provided to the patient. Procedure Code(s): - 75459, Esophagogastroduodenoscopy, flexible, transoral; diagnostic, including collection of specimen(s) by brushing or washing, when performed (separate procedure) Diagnosis Code(s): - K92.2, Gastrointestinal hemorrhage, unspecified - K29.70, Gastritis, unspecified, without bleeding CPT(R) - 2023 copyright [employer]. All Rights Reserved. The CPT codes, CCI edits and ICD codes generated are intended as suggestions and were generated based on input data. These codes are preliminary and upon private duty rn review may be revised to meet current compliance and payer requirements. The provider is responsible for the final determination of appropriate codes, and modifiers. Dmitri Miller MD This document has been electronically signed. Note Initiated:05/27/2024 Note Completed:05/27/2024 12:55 PM [id number]
[2024-05-27] MEDS: LIDOCAINE 2% 2 ML VIAL/AMP(20MG/ML) INFIL ONE ×2 (14:10→14:11)
[2024-05-27] MEDS: PROPOFOL IV EMULSION 10 MG/ML 20 ML VIAL IV ONE (14:11)
--- NOTE | 2024-05-27 14:31 | Anesthesiology Progress Note ---
Date of Service May 27, 2024 Anesthesia Post Procedure Vital Signs Vital Signs: Temp Pulse Pulse Resp BP BP Pulse Ox 05/27/24 13:28 67 18 140/92 94 05/27/24 13:13 63 18 152/102 H 95 05/27/24 12:58 64 16 174/99 H 96 05/27/24 12:06 36.4 C L 71 16 129/90 97 05/27/24 11:27 36.8 C 57 L 18 114/72 91 05/27/24 07:28 36.7 C 91 H 18 107/74 92 05/27/24 03:08 36.6 C 68 18 101/69 94 05/26/24 22:53 36.9 C 69 20 138/94 94 05/26/24 21:52 64 05/26/24 19:23 36.8 C 65 18 110/77 95 05/26/24 19:15 05/26/24 15:46 36.6 C 76 18 132/82 91 O2 Del Method 05/27/24 13:28 Room Air 05/27/24 13:13 Room Air 05/27/24 12:58 Room Air 05/27/24 12:06 Room Air 05/27/24 11:27 Room Air 05/27/24 07:28 Room Air 05/27/24 03:08 Room Air 05/26/24 22:53 Room Air 05/26/24 21:52 05/26/24 19:23 Room Air 05/26/24 19:15 Room Air 05/26/24 15:46 Room Air Pain Intensity Chest: Pain Intensity: 3 Transfer of Care Handoff Completed per policy Notes Mental Status: alert / awake / arousable and participated in evaluation Nausea / Vomiting: adequately controlled Pain: adequately controlled Airway Patency, RR, SpO2: stable & adequate BP & HR: stable & adequate Hydration State: stable & adequate Anesthetic Complications: no major complications apparent and Pt Satisfied with anesthetic care
--- NOTE | 2024-05-27 14:33 | Hospitalist Progress Note ---
Date of Service May 27, 2024 Assessment & Plan (1) Hypertensive emergency: Plan: Presented with some pulmonary edema, headache (now resolved), chest pain (now resolved), elevated troponin Multiple prior episodes with a history of PRES but no current neurological s ymptoms Blood pressures are much better controlled-cardiology started Entresto and stopped home losartan Continue carvedilol, clonidine Continue to follow IV hydralazine as needed-has not needed any Doing very well (2) Acute upper gastrointestinal bleeding: Plan: Dark red blood per patient, Hemoccult positive Hemoglobin 15.9 on admission likely heme concentrated, hgb now 14.7 and has remained stable for days History of hematemesis 04/2022 with relatively normal EGD at that time No further vomiting since admission. Suspected possible Diana-Briones tear Eliquis and Plavix were held initially x 1 day, but were resumed by Cardio on evening of 05/25 GI consulted-EGD revealed small area of gastritis in the fundus Continue PPI bid but switch to p.o. Doing well-advance to full liquids diet this evening and then solids for tomorrow morning (3) Chest pain: Plan: Nonobstructive CAD in 2017. Troponin did trend upward to 818 at peak. Chest pain is now resolved with improvement in BP No ischemic changes on ECG TTE with EF 50-55%, mild basal and inferior base to mid inferoseptal hypokinesis Most likely demand ischemia from hypertensive emergency Appreciate cardiology consultation-recommends medical management especially given the GI bleeding and difficulty with medical compliance historically. Plan to repeat echocardiogram in a few months No clear cause for hypertensive emergency but this is historically an issue with her There is a question of cyclical vomiting syndrome from marijuana use which causes a spike in blood pressure Also considering adding amlodipine on and follow-up if doing well with the new Entresto. Amlodipine would be for vasospasm. COntinue statin Cardiology recommends outpatient follow-up for further evaluation Continue Eliquis, Plavix for history of PAD with stents, carotid artery stenosis (4) Cyclic vomiting syndrome: Plan: Multiple episodes of similar. Marijuana cessation advised as per prior although suspect current episode brought on by colby Ondansetron IV 4mg q4h PRN 1st line Promethazine PO 25mg q6h PRN 2nd line Nausea/vomiting now resolved, EGD with gastritis Advanced diet to full liquids tonight and regular diet tomorrow (5) Obstructive sleep apnea: Plan: Not on NIV at home and declined on prior hospitalizations (6) Seizure disorder: Plan: Switched Keppra from PO to IV while not reliably taking PO meds-can resume po dosing Plan Mood disorder-continue Effexor, elavil TE Prophylaxis - Eliquis Disposition -continued stay on PCU but likely discharge to home tomorrow Admission and Anticipated Discharge Date Admission Date: May 24, 2024 Anticipated date of discharge: 05/28/24 Subjective Pt just returned from EGD and is asking for a double ascencio cheeseburger and is feeling hungry. No vomiting, no diarrhea, no abdominal pain. No chest pain, shortness of breath, or headache. She feels well. EGD only revealed a small amount of gastritis. Telemetry with normal sinus rhythm with rates in the 60s Physical Exam Constitutional: WD/WN, vitals as above Respiratory: normal respiratory effort, lungs clear to auscultation Cardiovascular: RRR, no murmur, no edema Gastrointestinal (Abdomen): normal bowel sounds, soft, nontender, no hepatosplenomegaly Psychiatric: A+Ox3, euthymic affect Results & Data Results & Data Vital Signs (Past 12 Hours) Vital Signs Temp Pulse Resp BP BP Pulse Ox O2 Del Method 05/27/24 13:28 67 18 140/92 94 Room Air 05/27/24 13:13 63 18 152/102 H 95 Room Air 05/27/24 12:58 64 16 174/99 H 96 Room Air 05/27/24 12:06 36.4 C L 71 16 129/90 97 Room Air 05/27/24 11:27 36.8 C 57 L 18 114/72 91 Room Air 05/27/24 07:28 36.7 C 91 H 18 107/74 92 Room Air 05/27/24 03:08 36.6 C 68 18 101/69 94 Room Air Laboratory Results CBC, BMP, magnesium reviewed Diagnostic Findings EGD report reviewed PG Care Time/CCT Total # of Minutes Spent Total Time Spent with Patient: Total time spent is greater than 50% in coordination of care (as documented) at patient's floor/unit and/or counseling patient: Coding Level of Care Code 82665 SUB INP/OBS CARE 2/35MIN Diagnoses Hypertensive emergency I16.1 Acute upper gastrointestinal bleeding K92.2 Chest pain, unspecified type R07.9 Chest pain type: unspecified Cyclic vomiting syndrome R11.15 Obstructive sleep apnea G47.33 Seizure disorder G40.909 (3) Chest pain Chest pain type: unspecified Qualified Code(s): R07.9 - Chest pain, unspecified
[2024-05-27] MEDS: PANTOprazole 40 MG TAB PO SCH (20:18)
[2024-05-28 07:18] LABS: Basophils # (auto) 0.12 K/uL (0.00-0.20); Basophils % (auto) 1.4 %; Eosinophils # (auto) 0.31 K/uL (0.00-0.50); Eosinophils % (auto) 3.5 %; Hematocrit (blood only) 43.9 % (37.0-47.0); Hemoglobin 14.9 g/dl (12.0-16.0); Immature Granulocytes # (auto) 0.03 K/uL (0.01-0.20); Immature Granulocytes % (auto) 0.3 %; Lymphocytes # (auto) 3.01 K/uL (1.20-3.40); Mean Corpuscular Hemoglobin 31.1 pg (25.0-34.0); Mean Corpuscular Hgb Conc 33.9 g/dL (32.0-36.0); Mean Corpuscular Volume 91.6 fL (80.0-100.0); Mean Platelet Volume 10.3 fL (9.4-12.4); Monocytes # (auto) 0.57 K/uL (0.11-0.59); Monocytes % (auto) 6.4 %; Neutrophils # (auto) 4.82 K/uL (1.40-6.50); Neutrophils % (auto) 54.4 %; Platelet Count 253 K/uL (130-400); RDW Coefficient of Variation 12.2 % (11.5-14.5); RDW Standard Deviation 40.9 fL (36.4-46.3); Red Blood Count 4.79 M/uL (4.20-5.40); White Blood Count 8.86 K/ul (4.8-10.8)
[2024-05-28 07:35] LABS: Calcium 9.4 mg/dl (8.6-10.3); Creatinine Clr Calc Pharmacy 72.3 ml/min; Magnesium 2.1 mg/dl (1.7-2.4); Potassium 3.4 mmol/L (3.5-5.1)
[2024-05-28 08:04] VITALS: PULSE 73; RESP 18; TEMP 98.2; O2SAT 91
[2024-05-28 10:30] VITALS: BP 114/80
[2024-05-28] MEDS: POTASSIUM CHLORIDE CRTAB 20 MEQ TABCR PO STA (10:40)
--- NOTE | 2024-05-28 10:48 | Discharge Summary ---
Discharge Summary Date of Service May 28, 2024 Principal Dx & Hospital Course #1 = Principal Diagnosis (1) Hypertensive emergency: Presented with some pulmonary edema, headache (now resolved), chest pain (now resolved), elevated troponin Multiple prior episodes with a history of PRES but no current neurological symptoms Blood pressures are much better controlled-cardiology started Entresto and stopped home losartan Continue carvedilol, clonidine Continue to follow with cardio as outpt IV hydralazine as needed-has not needed any Doing very well (2) Acute upper gastrointestinal bleeding: Dark red blood per patient, Hemoccult positive Hemoglobin 15.9 on admission likely heme concentrated, hgb now 14.7 and has remained stable for days History of hematemesis 04/2022 with relatively normal EGD at that time No further vomiting since admission. Suspected possible Diana-Briones tear Eliquis and Plavix were held initially x 1 day, but were resumed by Cardio on evening of 05/25 GI consulted-EGD revealed small area of gastritis in the fundus only Continue PPI po bid Tolerating regular diet on day of discharge, no further N/V/D Encouraged cessation of marijuana due to likely cause of cyclical vomiting (3) Chest pain: Nonobstructive CAD in 2017. Troponin did trend upward to 818 at peak. Chest pain is now resolved with improvement in BP No ischemic changes on ECG TTE with EF 50-55%, mild basal and inferior base to mid inferoseptal hypokinesis Most likely demand ischemia from hypertensive emergency Appreciate cardiology consultation-recommends medical management especially given the GI bleeding and difficulty with medical compliance historically. Plan to repeat echocardiogram in a few months No clear cause for hypertensive emergency but this is historically an issue with her There is a question of cyclical vomiting syndrome from marijuana use which causes a spike in blood pressure Also considering adding amlodipine on and follow-up if doing well with the new Entresto. Amlodipine would be for vasospasm.defer to cardio as outpt COntinue statin Cardiology recommends outpatient follow-up for further evaluation Continue Eliquis, Plavix for history of PAD with stents, carotid artery stenosis (4) Cyclic vomiting syndrome: Multiple episodes of similar. Marijuana cessation advised as per prior although suspect current episode brought on by colby Ondansetron IV 4mg q4h PRN 1st line Promethazine PO 25mg q6h PRN 2nd line Nausea/vomiting now resolved, EGD with gastritis tolerating reg diet encouraged THC cessation (5) Obstructive sleep apnea: Not on NIV at home and declined on prior hospitalizations (6) Seizure disorder: continue home keppra, no acute issues Plan Mood disorder-continue Effexor, elavil TE Prophylaxis - Eliquis Disposition -stable for dc to home, doing very well Notes For Next Care Provider COntinue to encourage THC cessation Medication Changes From Visit Added Entresto, stopped losartan Admission HPI Per Admitting Provider Cyndie Velasquez is a 59 year old female who presents to the ER with chest pain, nausea and vomiting. She has a longstanding history of cyclic vomiting syndrome with prior similar episodes. On this occasion she woke up at 2am with chest pain and shortly after that had vomiting and couldn't get it under control with her usual ondansetron. Associated shortness of breath and diaphoresis. Chest pain was substernal, radiated to neck. Associated headache now resolved. Chest pain resolved with aspirin x4 given by EMS. She is currently chest pain free when seen in the ER. She noticed dark red blood with vomiting this morning. Mild generalized abdominal pain. She also notes diarrhea for the last 2 days. No recent fever, chills, respiratory or urinary complaints. Currently she just feels thirsty and tired. Used marijuana couple of days ago. She expresses wish to quit. Took all her usual medications yesterday. Discharge Exam Constitutional WD/WN, vitals as above Respiratory normal respiratory effort, lungs clear to auscultation Cardiovascular RRR, no murmur, no edema Gastrointestinal (Abdomen) normal bowel sounds, soft, nontender, no hepatosplenomegaly Psychiatric A+Ox3, euthymic affect Discharge Plan Discharge Items Patient Disposition: Home - Self-Care Reason For Visit: HYPERTENSIVE EMERGENCY Discharge Diagnosis: Hypertensive emergency Hematemesis, gastritis Hypertensive cardiomyopathy Activity: Resume your previous activity Non-emergency contact: Primary Care Provider and Chief Diversity Officer Call non-emergency contact if: you have any medication questions and your symptoms worsen Follow-up/Referrals: Teena Killian DO [Primary Care Provider] - 06/07/24 11:00 am (Follow up within 1-2 weeks Appointment scheduled June 07 at 11:[address] Gary) Jennifer Rankin DO [Physician] - 06/01/24 1:15 pm (Hospital follow up scheduled June 01 at 1:15 with Brigitte Abad at the [facility] location.) Diet: Low Sodium (2gm) Addtl Attending Provider Instructions: You were admitted with intractable vomiting and had some blood in your vomit from gastritis (inflammation in the stomach). This resolved and your blood pre ssures improved. It is recommended that you stop smoking marijuana to help keep these cycles of vomiting from happening. Your heart had some abnormalities on echocardiogram due to your severely eleva ranjan blood pressures and the Chief Diversity Officer changed your losartan to Entresto to help with this. Please follow up with Cardiology in the office. Pending Studies at Discharge: No Stand-Alone Forms: [facility] [employer], Smoking Cessation Medications and DC Order Prescriptions: New Entresto 49-51 mg Tablet 1 tab PO BID Qty: 60 0RF Continued rosuvastatin [Crestor] 40 mg tablet 40 mg PO HS Qty: 90 3RF levetiracetam [Keppra] 1,000 mg tablet 1,000 mg PO BID Qty: 180 3RF pantoprazole 40 mg tablet,delayed release (DR/EC) 40 mg PO BID Qty: 180 2RF amitriptyline 25 mg tablet 25 mg PO HS Qty: 90 1RF clopidogrel [Plavix] 75 mg tablet 75 mg PO HS Qty: 90 1RF Patient Comments: PER DR PERSON OFFICE, TOLD TO STOP 7 DAYS BEFORE PROCEDURE venlafaxine 150 mg capsule,extended release 24hr 150 mg PO QAM Qty: 90 1RF Eliquis 5 mg tablet 5 mg PO BID Qty: 180 1RF Combivent Respimat 20-100 mcg/actuation mist 1 puff inhalation Q6H PRN (Reason: SOB) carvedilol 25 mg tablet 25 mg PO BID Qty: 60 2RF Rx Instructions: must administer with a meal/food (DME) Auto Titrating CPAP Misc See Rx Instructions .ROUTE .MEDSUPPLY Qty: 1 0RF Rx Instructions: As directed Nightly ferrous sulfate 325 mg (65 mg iron) tablet 325 mg PO DAILY folic acid 1 mg tablet 1 mg PO DAILY Rx Instructions: 1mg by mouth once daily mecobalamin (vitamin B12) 1,000 mcg tablet,chewable 1,000 mcg PO DAILY cdepoaxtxdpy-fsxt-lvxug acid 18-400 mg-mcg tablet 1 tab PO DAILY clonidine HCl 0.1 mg tablet 0.1 mg PO BID Rx Instructions: Take if systolic BP is >160, diastolic BP >100- TAKE UP TO FOUR TIMES DAILY IF NEEDED BID cholecalciferol (vitamin D3) 50 mcg (2,000 unit) tablet 2,000 unit PO HS ondansetron HCl 4 mg tablet 4 mg PO Q8H PRN (Reason: nausea and vomiting) Qty: 30 0RF Discontinued losartan 50 mg tablet 50 mg PO DAILY Qty: 90 3RF (DME) Medical Marijuana See Rx Instructions .Route .MEDSUPPLY Rx Instructions: pt states she has but not taken. Discharge Orders: Discharge Order (Routine); Ordered 05/28/24 Ordered By: Leonie Fairbanks Admission Data Admit Date/Time: 05/24/24 10:28 Attending Provider: Leonie Fairbanks Admit Provider: Franck Pereira Primary Care Provider: Teena Killian Other Providers: Franck Pereira; Curt Rodriguez; Kurt Tovar Hospital Stay Data Consultations 05/24/24 09:46 ED Decision to Admit Stat 05/24/24 14:44 Consult Cardiology Routine 05/24/24 21:58 Consult Gastroenterology Routine Procedures Performed Operation Date: 05/27/24 17:10 Actual Procedures p Esophagogastroduodenoscopy - Dmitri Miller MD Diagnostic Imagining Performed 05/24/24 06:24 CT abd pelvis IV con only Stat 05/24/24 07:19 CT angio chest PE protocol Stat Pending Results Patient Have Any Pending Studies at Discharge: No Discharge Instructions Given to Patient (Per Discharging Provider) You were admitted with intractable vomiting and had some blood in your vomit from gastritis (inflammation in the stomach). This resolved and your blood pressures improved. It is recommended that you stop smoking marijuana to help keep these cycles of vomiting from happening. Your heart had some abnormalities on echocardiogram due to your severely elevated blood pressures and the Chief Diversity Officer changed your losartan to Entresto to help with this. Please follow up with Cardiology in the office. Total Time Total Time Spent Total Time Spent (In Minutes): 35 min Total Time Includes: Examination of the Patient, Discharge Planning and Medication Reconciliation Coding Level of Care Code 73980 INP/OBS DISCH >30 MIN Diagnoses Hypertensive emergency I16.1 Acute upper gastrointestinal bleeding K92.2 Chest pain, unspecified type R07.9 Chest pain type: unspecified Cyclic vomiting syndrome R11.15 Obstructive sleep apnea G47.33 Seizure disorder G40.909
== END 2024-05-28 13:11 | disposition home or self-care (01) | DRG 304 ==
LOC: ED 06:09 → SUATTDRO 10:28 → 2S 10:28
DX: K29.71 Gastritis, unspecified, with bleeding; Z88.1 Allergy status to other antibiotic agents; I25.2 Old myocardial infarction; I24.89 Other forms of acute ischemic heart disease; I43 Cardiomyopathy in diseases classified elsewhere; R11.15 Cyclical vomiting syndrome unrelated to migraine; Z88.5 Allergy status to narcotic agent; Z95.1 Presence of aortocoronary bypass graft; K22.6 Gastro-esophageal laceration-hemorrhage syndrome; G47.33 Obstructive sleep apnea (adult) (pediatric); G40.909 Epilepsy, unspecified, not intractable, without status epilepticus; I16.1 Hypertensive emergency; Z86.73 Personal history of transient ischemic attack (TIA), and cerebral infarction without residual deficits; E78.5 Hyperlipidemia, unspecified; K21.9 Gastro-esophageal reflux disease without esophagitis; Z91.040 Latex allergy status; Z95.828 Presence of other vascular implants and grafts; I25.10 Atherosclerotic heart disease of native coronary artery without angina pectoris; Z87.891 Personal history of nicotine dependence; Z91.041 Radiographic dye allergy status; Z80.0 Family history of malignant neoplasm of digestive organs; I73.9 Peripheral vascular disease, unspecified; Z88.8 Allergy status to other drugs, medicaments and biological substances; Z79.899 Other long term (current) drug therapy; F39 Unspecified mood [affective] disorder; I11.9 Hypertensive heart disease without heart failure; Z79.01 Long term (current) use of anticoagulants

== ENCOUNTER 2024-06-13 16:19 | Inpatient (IN) ==
[2024-06-13] MEDS: ONDANSETRON INJ 2 MG/ML 2 ML VIAL IV STA ×2 (17:12→18:27)
[2024-06-13 17:13] LABS: Basophils # (auto) 0.13 K/uL (0.00-0.20); Basophils % (auto) 1.3 %; Immature Granulocytes # (auto) 0.03 K/uL (0.01-0.20); Immature Granulocytes % (auto) 0.3 %; Lymphocytes # (auto) 2.51 K/uL (1.20-3.40); Lymphocytes % (auto) 25.6 %; Mean Corpuscular Hemoglobin 31.3 pg (25.0-34.0); Mean Corpuscular Hgb Conc 34.8 g/dL (32.0-36.0); Monocytes # (auto) 0.72 K/uL (0.11-0.59); Monocytes % (auto) 7.4 %; Neutrophils % (auto) 63.4 %; Platelet Count 364 K/uL (130-400); RDW Coefficient of Variation 12.3 % (11.5-14.5); Red Blood Count 5.11 M/uL (4.20-5.40); White Blood Count 9.79 K/ul (4.8-10.8)
[2024-06-13] MEDS: ONDANSETRON INJ 2 MG/ML 2 ML VIAL ONE (17:13)
[2024-06-13 17:28] LABS: Albumin Globulin Ratio 1.4 (0.9-2); Albumin Level 4.7 gm/dl (3.4-5.0); BUN Creatinine Ratio 22.5 (10-20); Bilirubin,Total 0.6 mg/dl (0.2-1.0); Calcium 10.2 mg/dl (8.6-10.3); Creatinine Clr Calc Pharmacy 46.7 ml/min; Globulin 3.4 gm/dl (2.5-4.0); Potassium 4.2 mmol/L (3.5-5.1); Total Protein 8.1 gm/dl (6.0-8.3)
[2024-06-13 17:32] LABS: Troponin I High Sensitivity 16.9 pg/ml (0-14)
[2024-06-13 17:42] LABS: Partial Thromboplastin Ratio 1.1; Partial Thromboplastin Time 29 Seconds (21-31); Prothrombin Time 10.9 Seconds (9.0-12.0)
--- NOTE | 2024-06-13 17:46 | Emergency Department Note ---
Impression & Plan Chest pain, Nausea & vomiting, Non-ST elevation VT (NSTEMI), MP (acute kidney injury), Hypertensive urgency ED Provider Note HISTORY OF PRESENT ILLNESS: Patient is a 59-year-old female presenting with chest pain. Patient reports has been feeling ill for the last 3 to 4 days. Reports that yesterday she developed substernal chest pain that seem to radiate up her bilateral neck and give her a headache. She states that it felt like she was choking when the pain radiated up into her neck. She states she took 2 nitro yesterday which seemed to improve her chest pain. States that she had another episode of chest pain today. She is also had some right upper quadrant abdominal pain and multiple episodes of vomiting. She has not taken any nitro today. She currently describes it as a pressure sensation in her chest without radiation into her back or abdomen. Currently complaining of 9 out of 10 headache. She reports she feels short of breath. Denies any recent fevers. Denies any cough. Denies any recent sick contact exposures. She has a history of an aortobifemoral bypass surgery. She denies any cholecystectomy or appendectomy surgeries. ROS: as above PHYSICAL EXAM: Constitutional: Patient appears in no acute distress. Patient actively vomiting on examination. HENT: Head: Normocephalic and atraumatic. Eyes: EOMI, PERRL Mouth/Throat: Mucous membranes moist. Neck: Trachea midline. Neck supple. Cardiovascular: RRR, No murmurs, rubs or gallops. Intact distal pulses. Pulmonary/Chest: No respiratory distress. Breath sounds clear and equal bilaterally. No wheezes or rales. No chest wall tenderness to palpation. Abdominal: Abdomen soft, no rebound or guarding. RUQ TTP Musculoskeletal: No edema, tenderness or deformity noted. Skin: Warm and dry. No rash, erythema, pallor or cyanosis Psychiatric: Appropriate mood and affect for situation. Neurological: Alert and keenly responsive. CN II-XII grossly intact, moving all extremities equally and fully. MDM: - Vitals signs showed hypertension. - Patient actively vomiting on examination. Given 4 mg IV Zofran. - History obtained via patient. History as above. - Chronic conditions affecting care: HTN; takotsubo cardiomyopathy; GERD; peripheral arterial disease; CAD; HLD - Differential diagnoses include, but are not limited to: Acute coronary syndrome; pulmonary embolism; dissection; tension pneumothorax; esophageal rupture; pneumonia - Order placed for continuous cardiac monitoring. At this time, monitor showed rate of 80 bpm with normal sinus rhythm, per my interpretation. - External medical records reviewed. Discharge summary dated 05/28/2024 was reviewed. Patient was admitted for hypertensive emergency with pulmonary edema, headache and chest pain. - EKG interpreted by myself showed normal sinus rhythm. Rate 73 bpm. QTc 426. No acute ischemic changes. - Laboratory workup interpreted by myself showed normal WBC; normal PT/INR; hyponatremia (Na 134); elevated anion gap (14); MP (Cr 1.42 - baseline around 0.8); elevated troponin (16.9) - CXR negative for pneumonia, per my interpretation - Patient given 4 mg IV zofran but continued to vomit. She has an IV contrast dye allergy and was given 40 mg IV Solu-Medrol and 50 mg IV Benadryl. She was given additional 4 mg IV Zofran for nausea and vomiting and 50 mcg IV fentanyl for pain. - Patient's blood pressure remained elevated and she was given 10 mg of IV hydralazine. However, her pressures are still over 200 systolic. She given 1 L normal saline and a CTA chest/abdomen/pelvis was performed. - CTA chest negative for dissection or PE. Noted to have emphysematous changes without infiltrate or mass. - CTA abdomen/pelvis negative for acute pathology. Noted to have diverticulosis without diverticulitis. Noted to have a stable aortoiliac graft with occlusion of left iliac limb which seems to be a chronic finding. - Patient given 0.4 mg SL nitro and 10 mg IV labetalol for continued blood pressures of over 200 systolic. Shortly after administration, patient's blood pressures dropped significantly down into the 80s systolic. She was placed in reverse Trendelenburg position and 500 cc normal saline administered. Patient was alert and oriented during the event and did not appear in any significant distress. - Discussion was had with director of casework about patient's case and need for admission - Hospitalist consulted for admission - Patient admitted to [facility] for further evaluation and management. ASSESSMENT AND PLAN: Diagnosis: chest pain; nausea and vomiting; MP; NSTEMI; hypertensive urgency Plan: admit Past Med/Surg History Problem List (Updated 06/13/24 @ 19:47 by Sneha Gracia MD) Hypertensive urgency (Acute) MP (acute kidney injury) (Acute) Non-ST elevation VT (NSTEMI) (Acute) Nausea & vomiting (Acute) Chest pain (Acute) Diabetes mellitus Chest pain Elevated troponin I level (Acute) Abdominal pain (Acute) Vomiting (Acute) Acute upper gastrointestinal bleeding (Acute) Hypertensive urgency (Acute) PRES (posterior reversible encephalopathy syndrome) (Acute) Vertigo (Acute) Cerebellar stroke Occlusion of left iliac artery Marijuana dependence (Acute) Hx-TIA (transient ischemic attack) pt denies Diverticulosis Carpal tunnel syndrome Cervical spondylosis with myelopathy and radiculopathy Vitamin D deficiency Seizure disorder Hypomagnesemia (Acute) Upper gastrointestinal bleed 2021, resolved Cyclic vomiting syndrome no GI pathology on EGD, US, CT of abd/pelvis, celiac testing and GES per 04/2020 GI consult: biliary w/u and upper GI study recommended (upper GI study neg per d/c summary), cannabis cessation, continue Protonix and prn Zofran > currently controlled Peripheral arterial disease Bilateral external iliac artery occlusion with common femoral artery reconstitution-02/2021 aorta with runoff CTA, follows with Dr. Maynard Obstructive sleep apnea mod-severe per PCP records (does not have device) GERD (gastroesophageal reflux disease) Renal artery stenosis following with Dr Maynard HTN (hypertension) h/o multiple hypertensive urgency episodes, renal artery stenosis, following with cardiology and vascular surgery Carotid stenosis < 50% stenosis B/L per US 12/16/18 CAD (coronary artery disease) Mild-moderate non-obstructive CAD per 2017 cardiac cath Pulmonary emphysema well controlled per pt Multiple thyroid nodules Hyperlipidemia Anxiety disorder Medical History (Updated 06/13/24 @ 19:47 by Sneha Gracia MD) Hypertensive emergency Hypertensive urgency, malignant Hypertensive urgency Elevated troponin Hypertensive emergency Hypokalemia Hypophosphatemia Tachycardia Postoperative nausea Seizures 2019 r/t hypertensive emergency > encephalopathy. last seizure 2019 Hematemesis History of COVID-19 03/18/22, p[facility] [place], hospitalized day after diagnosis due to vomiting blood, discharged on 03/22/22; fever, vomiting, body chills and aches, diarrhea > resolved currently. Ischemia of right lower extremity Prediabetes diet controlled Depression Seizure Proteinuria Cyclic vomiting syndrome Hypercalcemia PRES (posterior reversible encephalopathy syndrome) has since caused seizures that started in 2019. following with PCP, last seizure per pt 08/2019 per PCP records Cannabinoid hyperemesis syndrome History of diverticulitis of colon Most recent 04/2022 Transient cerebrovascular ischemia Per records, pt unaware Cervical disc disorder Full ROM per pt Takotsubo cardiomyopathy 2017. Admitted [facility], full cardiac workup including cath. EF at the time 40%, now subsequent echos. Follows with Dr. Rodriguez NSTEMI (non-ST elevated myocardial infarction) 2017 Surgical History History of anesthesia reaction Low O2 sats during colonoscopy 04/2022 at [facility] and post-procedure elevated BP. Per post-op anesthesia progress note, O2 96-100% RA and "Pt has increased BP 2ndary to abdominal pain. Pt also has nausea w/ dry heaves. Pt to have CT scan per Dr Patten." History of tooth extraction History of cataract surgery bilat Status post surgery RLE thrombectomy S/P aortobifemoral bypass surgery Sep 2021 [facility] History of esophagogastroduodenoscopy (EGD) H/O cervical spine surgery ACDF C4-7 Dr. [place]: Grade 1 view, Bojorquez#2 and ETT#7.5 atraumatic x 1. No issues per anesthesia postop progress note. ROM WNL History of cardiac cath 2017 > no stents History of ovarian cystectomy History of hernia surgery right inguinal hernia repair History of hysterectomy Family History Father Family history of stomach cancer Malignant neoplasm of esophagus Stomach cancer Myocardial infarction Stroke Uncle Throat cancer Family history of cancer FAMILY HISTORY OF CANCER - UNCLE - VOCAL CORDS FAMILY HISTORY OF CANCER - AUNT - ? KIND Grandmother (Maternal) Bone cancer Breast cancer Mother No problems noted. Brother Lung cancer Other Family history of diabetes mellitus No family history of adverse response to anesthesia No pertinent family history Denies family history of Colon cancer Ovarian cancer Prostate cancer Crohn's disease IBD (inflammatory bowel disease) Social History Smoking Status: Former smoker Tobacco Type: Cigarettes Age Started Using Tobacco: 20; Age Quit Using Tobacco: 49; packs per day: 1.5; Second Hand Exposure: No; Do You Dip or Chew Tobacco: No; Hx Alcohol Use: Yes Alcohol type: beer Hx Substance Use: Yes Last Used Substance: Days (ago) Last Used Substance Other:: 4 days ago last used. 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 Feels Safe at Home: Yes Childhood Exposure to Second-Hand Smoke: Yes Diet: regular Diet Comment: Regular caffeine: Yes (1 cup of coffee) during the past year weight has: other Dental Care, Regularly: No Physical Activity Frequency: Daily Physical Activity Frequency Comment: walking Seatbelt Use: always Sunscreen Use: Yes Assistive Devices: Denture - Upper and Denture - Lower Allergies Allergies Allergy/AdvReac Type Severity Reaction Status Date / Time napoles Allergy Intermediate Hives Verified 06/07/24 10:55 (green/hartman beans) doxycycline Allergy Intermediate Hives, Verified 06/07/24 10:55 vomiting Iodinated Contrast Media Allergy Intermediate Large Verified 06/07/24 10:55 hives, vomiting, "feeling hot" iodine Allergy Intermediate Hives, Verified 06/07/24 10:55 vomiting latex Allergy Intermediate Rash Verified 06/07/24 10:55 loperamide Allergy Intermediate Hives, Verified 06/07/24 10:55 vomiting meperidine Allergy Intermediate Hives, Verified 06/07/24 10:55 vomiting strawberry Allergy Intermediate Hives Verified 06/07/24 10:55 tomato Allergy Intermediate Hives Verified 06/07/24 10:55 prochlorperazine Allergy Mild N/V, Verified 06/07/24 10:55 itchiness Home Meds Home Medications Medication Instructions Recorded Confirmed ipratropium 20 mcg-albuterol 100 1 puff inhalation Q6H PRN SOB 01/01/23 06/13/24 mcg/actuation mist for inhalation (Combivent Respimat) mecobalamin (vitamin B12) 1,000 1,000 mcg PO QAM 09/30/23 06/13/24 mcg chewable tablet nitroglycerin 0.4 mg sublingual 0.4 mg sublingual UD PRN Chest Pain 06/07/24 06/13/24 tablet metformin 500 mg tablet 500 mg PO QAM 06/13/24 06/13/24 [id number] 8 mg-folic 400 1 tab PO DAILY 06/13/24 06/13/24 mcg-K 50 mcg-lutein 300 mcg tablet (Centrum Silver Women) Previous Rx's Medication Instructions Recorded Auto Titrating CPAP #1 ea 07/15/22 carvedilol 25 mg tablet 25 mg PO BID #60 tabs 01/01/23 rosuvastatin 40 mg tablet (Crestor) 40 mg PO HS #90 tabs 10/10/23 levetiracetam 1,000 mg tablet 1,000 mg PO BID #180 tabs 10/13/23 (Keppra) pantoprazole 40 mg tablet,delayed 40 mg PO BID #180 tabs 10/31/23 release amitriptyline 25 mg tablet 25 mg PO HS #90 tabs 12/15/23 clopidogrel 75 mg tablet (Plavix) 75 mg PO HS #90 tabs 12/23/23 venlafaxine 150 mg 150 mg PO QAM #90 caps 01/30/24 capsule,extended release 24 hr apixaban 5 mg tablet (Eliquis) 5 mg PO BID #180 tabs 04/06/24 ondansetron HCl 4 mg tablet 4 mg PO Q8H PRN nausea and 05/28/24 vomiting #30 tabs sacubitril 49 mg-valsartan 51 mg 1 tab PO BID #60 tabs 05/28/24 tablet (Entresto) cholecalciferol (vitamin D3) 50 2,000 unit PO HS #90 tabs 06/07/24 mcg (2,000 unit) tablet potassium chloride 20 mEq 20 meq PO DAILY #30 tabs 06/07/24 tablet,extended release Results & Data (ED) Vital Signs Vital Signs - 24 hr 06/13/24 16:26 06/13/24 16:31 06/13/24 16:54 Temperature 37.1 C Temperature Source Oral Pulse Rate 68 Pulse Rate [Apical] Pulse Rhythm Regular Pulse Strength Normal Respiratory Rate 16 Respiratory Effort / Characteristics Non-Labored Respiratory Depth Normal Respiratory Pattern Regular Blood Pressure 215/122 H Blood Pressure [Right Arm] Blood Pressure Mean 153 Blood Pressure Mean [Right Arm] Blood Pressure Position Lying Blood Pressure Position [Right Arm] Pulse Oximetry 100 99 Oxygen Delivery Method Room Air Room Air Sepsis Recent Fever Within 48 Hours No Sepsis New/Unexplained Change in Mental Status No Sepsis Action Taken by Nursing No Action Required 06/13/24 16:54 06/13/24 17:09 06/13/24 18:11 Temperature Temperature Source Pulse Rate 82 Pulse Rate [Apical] 92 H Pulse Rhythm Pulse Strength Respiratory Rate 20 Respiratory Effort / Characteristics Non-Labored Respiratory Depth Normal Respiratory Pattern Blood Pressure Blood Pressure [Right Arm] 217/141 H Blood Pressure Mean Blood Pressure Mean [Right Arm] 166 Blood Pressure Position Blood Pressure Position [Right Arm] Pulse Oximetry 99 99 Oxygen Delivery Method Room Air Room Air Sepsis Recent Fever Within 48 Hours Sepsis New/Unexplained Change in Mental Status Sepsis Action Taken by Nursing 06/13/24 18:57 06/13/24 19:15 06/13/24 19:37 Temperature Temperature Source Pulse Rate 82 82 Pulse Rate [Apical] 82 Pulse Rhythm Pulse Strength Respiratory Rate 20 18 18 Respiratory Effort / Characteristics Respiratory Depth Respiratory Pattern Blood Pressure 80/65 L 85/49 L Blood Pressure [Right Arm] 219/131 H Blood Pressure Mean 70 61 Blood Pressure Mean [Right Arm] 160 Blood Pressure Position Blood Pressure Position [Right Arm] Lying Pulse Oximetry 98 93 Oxygen Delivery Method Room Air Sepsis Recent Fever Within 48 Hours Sepsis New/Unexplained Change in Mental Status Sepsis Action Taken by Nursing 06/13/24 20:08 06/13/24 20:08 Temperature Temperature Source Pulse Rate 82 82 Pulse Rate [Apical] Pulse Rhythm Pulse Strength Respiratory Rate 16 Respiratory Effort / Characteristics Respiratory Depth Respiratory Pattern Blood Pressure 90/52 L 90/52 L Blood Pressure [Right Arm] Blood Pressure Mean 64 Blood Pressure Mean [Right Arm] Blood Pressure Position Blood Pressure Position [Right Arm] Pulse Oximetry 95 Oxygen Delivery Method Sepsis Recent Fever Within 48 Hours Sepsis New/Unexplained Change in Mental Status Sepsis Action Taken by Nursing Laboratory Data 06/13/24 16:52 06/13/24 16:52 Lab Results 06/13/24 06/13/24 Range/Units 16:52 19:00 WBC 9.79 (4.8-10.8) K/ul RBC 5.11 (4.20-5.40) M/uL Hgb 16.0 (12.0-16.0) g/dl Hct 46.0 (37.0-47.0) % MCV 90.0 (80.0-100.0) fL MCH 31.3 (25.0-34.0) pg MCHC 34.8 (32.0-36.0) g/dL RDW Std Deviation 40.0 (36.4-46.3) fL RDW Coeff of Jose Luis 12.3 (11.5-14.5) % Plt Count 364 (130-400) K/uL MPV 10.0 (9.4-12.4) fL Immature Gran % (Auto) 0.3 % Neut % (Auto) 63.4 % Lymph % (Auto) 25.6 % [place] % (Auto) 7.4 % Eos % (Auto) 2.0 % Baso % (Auto) 1.3 % Neut # (Auto) 6.20 (1.40-6.50) K/uL Lymph # (Auto) 2.51 (1.20-3.40) K/uL [place] # (Auto) 0.72 H (0.11-0.59) K/uL Eos # (Auto) 0.20 (0.00-0.50) K/uL Baso # (Auto) 0.13 (0.00-0.20) K/uL Immature Gran # (Auto) 0.03 (0.01-0.20) K/uL PT 10.9 (9.0-12.0) Seconds INR 1.0 (0.9-1.1) APTT 29 (21-31) Seconds PTT Ratio 1.1 Sodium 134 L (136-145) mmol/L Potassium 4.2 (3.5-5.1) mmol/L Chloride 101 (98-107) mmol/L Carbon Dioxide 19 L (21-32) mmol/L Anion Gap 14 H (3-11) BUN 32 H (6-23) mg/dl Creatinine 1.42 H (0.6-1.2) mg/dl Est Cr Clr Drug Dosing 46.7 ml/min eGFR 42.87 BUN/Creatinine Ratio 22.5 H (10-20) Glucose 138 H (70-99(Fasting)) mg/dl Calcium 10.2 (8.6-10.3) mg/dl Total Bilirubin 0.6 (0.2-1.0) mg/dl AST 17 (13-39) U/L ALT 12 (7-52) U/L Alkaline Phosphatase 87 (34-104) U/L Troponin I High Sens 16.9 H 21.8 H (0-14) pg/ml Total Protein 8.1 (6.0-8.3) gm/dl Albumin 4.7 (3.4-5.0) gm/dl Globulin 3.4 (2.5-4.0) gm/dl Albumin/Globulin Ratio 1.4 (0.9-2) Administered Medications Discontinued Medications Diphenhydramine HCl (Diphenhydramine 50 Mg/Ml Vial) 50 mg IV ONE ONE Stop: 06/13/24 17:39 Last Admin: 06/13/24 17:51 Dose: 50 mg Documented By: LILY Fentanyl Citrate (Fentanyl Citrate Pf 100 Mcg/2 Ml Vial) 50 mcg IV NOW STA Stop: 06/13/24 18:15 Last Admin: 06/13/24 18:27 Dose: 50 mcg Documented By: KAILA Hydralazine HCl (Hydralazine Hcl 20 Mg/Ml Vial) 10 mg IV NOW STA Stop: 06/13/24 18:49 Last Admin: 06/13/24 18:57 Dose: 10 mg Documented By: LILY Sodium Chloride (Nss) 1,000 mls @ 999 mls/hr IV .Q1H1M ONE Stop: 06/13/24 18:38 Last Infusion: 06/13/24 19:06 Dose: Infused Documented By: Admin: 06/13/24 17:51 Dose: 999 mls/hr Documented By: LILY Sodium Chloride (Nss) 500 mls @ 999 mls/hr IV .Q31M ONE Stop: 06/13/24 20:01 Last Infusion: 06/13/24 20:07 Dose: Infused Documented By: Admin: 06/13/24 19:34 Dose: 999 mls/hr Documented By: VENANCIO Ioversol (Optiray 320 125ml) 119 ml IV ONCE ONE Stop: 06/13/24 18:13 Last Admin: 06/13/24 18:12 Dose: 119 ml Documented By: BREONNA Labetalol HCl (Labetalol Hcl Iv 5 Mg/Ml 20ml) 10 mg IV NOW STA Stop: 06/13/24 19:07 Last Admin: 06/13/24 19:15 Dose: 10 mg Documented By: BJ Methylprednisolone (Methylprednisolone 125 Mg/2 Ml Vial) 40 mg IV NOW ONE Stop: 06/13/24 17:39 Last Admin: 06/13/24 17:51 Dose: 40 mg Documented By: LILY Nitroglycerin (Nitroglycerin Sl 0.4 Mg/Tab Tab) 0.4 mg SL NOW STA Stop: 06/13/24 19:07 Last Admin: 06/13/24 19:15 Dose: 0.4 mg Documented By: BJ Ondansetron HCl (Ondansetron Inj 2 Mg/Ml 2 Ml Vial) 4 mg IV NOW STA Stop: 06/13/24 17:10 Last Admin: 06/13/24 17:12 Dose: 4 mg Documented By: LILY Ondansetron HCl (Ondansetron Inj 2 Mg/Ml 2 Ml Vial) Confirm Administered Dose 4 mg .ROUTE .STK-MED ONE Stop: 06/13/24 17:10 Last Admin: 06/13/24 17:13 Dose: Not Given Documented By: LILY Ondansetron HCl (Ondansetron Inj 2 Mg/Ml 2 Ml Vial) 4 mg IV NOW STA Stop: 06/13/24 18:15 Last Admin: 06/13/24 18:27 Dose: 4 mg Documented By: BMW Imaging Data Radiologist's Impression: Chest X-Ray 06/13/24 16:53 EXAM: Radiograph of the Chest 1 View INDICATION: Chest pain. TECHNIQUE: Frontal view of the chest. COMPARISON: 05/24/2024 FINDINGS: Lungs and pleural spaces: Stable hyperinflation and mild symmetrical interstitial scarring. No consolidation or pulmonary edema. No pleural effusion or pneumothorax. Heart: Shape and configuration within normal limits allowing for technique. Mediastinum: Normal contour. Bones/joints: Old right rib fracture. Degenerative spine. Lower cervical hardware identified. No acute osseous abnormality. Soft tissues: No abnormality noted. No radiopaque foreign body noted. Upper abdomen: No abnormality noted. IMPRESSION: Stable chronic changes. No acute disease. ACT 112: Negative or not required by law. Electronically signed by Laquita Flores 06-13-2024 6:47 PM Abdomen/Pelvis CTA 06/13/24 17:38 EXAM: CT Angiography Abdomen and Pelvis Without and With Intravenous Contrast INDICATION: History of abdominal aortic aneurysm. TECHNIQUE: Axial computed tomographic angiography images of the abdomen and pelvis without and with intravenous contrast. Sagittal and coronal reformatted images were created and reviewed. This CT exam was performed using one or more of the following dose reduction techniques: automated exposure control, adjustment of the mA and/or kV according to patient size, and/or use of iterative reconstruction technique. MIP reconstructed images were created and reviewed. CONTRAST: 119 ml of Optiray 320 was administered intravenously. COMPARISON: 05/24/2024 FINDINGS: VASCULATURE: Aorta: No acute change noted. No thoracic aortic aneurysm or dissection. Celiac trunk and mesenteric arteries: No acute change noted. No occlusion or significant stenosis. Renal arteries: No acute change noted. No occlusion or significant stenosis. Iliac arteries: No acute change noted. No occlusion or significant stenosis. Lung bases: No abnormality noted. No mass. No consolidation. ABDOMEN: Liver: Normal size and contour. Hypodense typical of steatosis. No mass or ductal dilation. Gallbladder and bile ducts: No abnormality noted. No calcified stones. No ductal dilation. Pancreas: No abnormality noted. No ductal dilation. No mass. Spleen: No abnormality noted. No splenomegaly. Adrenals: No abnormality noted. No mass. Kidneys and ureters: No abnormality noted. No obstructing stones. No hydronephrosis. No solid mass. Stomach and bowel: Colonic diverticulosis without diverticulitis. No intestinal thickening or obstruction. PELVIS: Appendix: Well seen and appears normal. Bladder: No abnormality noted. No stones. No mass. Reproductive: Hysterectomy. ABDOMEN and PELVIS: Intraperitoneal space: No abnormality noted. No significant fluid collection. No free air. 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 No evidence of leak. No dissection or hemorrhage. There is a patent cross femoral bypass with stable seromas at the anastomoses left measuring 5.4 x 3.1 cm and the right 3.6 x 2.0 cm. Soft tissues: Stable midline upper abdominal fat-containing ventral, supraumbilical and umbilical hernias noted. Lymph nodes: No abnormality noted. No enlarged lymph nodes. IMPRESSION: 1. 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 Stable patent cross femoral bypass with seromas at the anastomoses. 2. Diverticulosis without diverticulitis. 3. Hepatic steatosis. ACT 112: Negative or not required by law. Electronically signed by Laquita Flores 06-13-2024 6:38 PM Chest CTA 06/13/24 17:38 EXAM: CT Angiography Chest Without and With Intravenous Contrast INDICATION: Chest pain. TECHNIQUE: Axial computed tomographic angiography images of the chest without and with intravenous contrast. Sagittal and coronal reformatted images were created and reviewed. This CT exam was performed using one or more of the following dose reduction techniques: automated exposure control, adjustment of the mA and/or kV according to patient size, and/or use of iterative reconstruction technique. MIP reconstructed images were created and reviewed. COMPARISON: 05/24/2024 FINDINGS: Pulmonary arteries: No pulmonary embolus noted. Aorta: Minimal atherosclerotic calcification of the aortic arch. Lungs and pleural spaces: Stable paraseptal and centrilobular emphysematous changes with generalized interstitial scarring. Mild dependent atelectasis noted in both lungs noted. No pleural effusion or pneumothorax. No mass. Heart: No abnormality noted. No cardiomegaly. No significant pericardial effusion. No evidence of RV dysfunction. Bones/joints: No acute or atypical chronic changes. Soft tissues: No abnormality noted. Lymph nodes: No abnormality noted. No enlarged lymph nodes. IMPRESSION: 1. No thoracic aneurysm or dissection. No pulmonary embolus. 2. Emphysematous changes without infiltrate or mass. ACT 112: Negative or not required by law. Electronically signed by Laquita Flores 06-13-2024 6:45 PM Discharge Plan Visit Data Chief Complaint: Chest Pain Stated Complaint: CHEST PRESSURE, NAUSEA, VOMITING ED Provider: Sneha Gracia Discharge Problem: Chest pain, Nausea & vomiting, Non-ST elevation VT (NSTEMI), MP (acute kidney injury), Hypertensive urgency Forms Stand Alone Forms: [facility] [employer] Prescriptions Prescriptions: No Action rosuvastatin [Crestor] 40 mg tablet 40 mg PO HS Qty: 90 3RF levetiracetam [Keppra] 1,000 mg tablet 1,000 mg PO BID Qty: 180 3RF pantoprazole 40 mg tablet,delayed release (DR/EC) 40 mg PO BID Qty: 180 2RF amitriptyline 25 mg tablet 25 mg PO HS Qty: 90 1RF clopidogrel [Plavix] 75 mg tablet 75 mg PO HS Qty: 90 1RF Patient Comments: PER DR MAYNARD OFFICE, TOLD TO STOP 7 DAYS BEFORE PROCEDURE venlafaxine 150 mg capsule,extended release 24hr 150 mg PO QAM Qty: 90 1RF Eliquis 5 mg tablet 5 mg PO BID Qty: 180 1RF Combivent Respimat 20-100 mcg/actuation mist 1 puff inhalation Q6H PRN (Reason: SOB) carvedilol 25 mg tablet 25 mg PO BID Qty: 60 2RF Rx Instructions: must administer with a meal/food (DME) Auto Titrating CPAP Misc See Rx Instructions .ROUTE .MEDSUPPLY Qty: 1 0RF Rx Instructions: As directed Nightly nitroglycerin 0.4 mg tablet, sublingual 0.4 mg sublingual UD PRN (Reason: Chest Pain) cholecalciferol (vitamin D3) 50 mcg (2,000 unit) tablet 2,000 unit PO HS Qty: 90 3RF potassium chloride 20 mEq tablet extended release 20 meq PO DAILY Qty: 30 2RF mecobalamin (vitamin B12) 1,000 mcg tablet,chewable 1,000 mcg PO QAM Entresto 49-51 mg Tablet 1 tab PO BID Qty: 60 0RF ondansetron HCl 4 mg tablet 4 mg PO Q8H PRN (Reason: nausea and vomiting) Qty: 30 0RF metformin 500 mg tablet 500 mg PO QAM Centrum Silver Women 8 mg iron-400 mcg-50 mcg Tablet 1 tab PO DAILY Referrals Referrals: Teena Killian DO [Primary Care Provider] -
[2024-06-13] MEDS: methylPREDNISolone 125 MG/2 ML VIAL IV ONE (17:51)
[2024-06-13] MEDS: SODIUM CHLORIDE 0.9% 1,000 ML IV ONE (17:51)
[2024-06-13] MEDS: diphenhydrAMINE 50 MG/ML VIAL IV ONE (17:51)
[2024-06-13] MEDS: OPTIRAY 320 125ml IV ONE (18:12)
[2024-06-13] MEDS: fentaNYL citrate PF 100 MCG/2 ML VIAL IV STA (18:27)
--- NOTE | 2024-06-13 18:38 | CT Scan Report ---
EXAM: CT Angiography Abdomen and Pelvis Without and With Intravenous Contrast INDICATION: History of abdominal aortic aneurysm. TECHNIQUE: Axial computed tomographic angiography images of the abdomen and pelvis without and with intravenous contrast. Sagittal and coronal reformatted images were created and reviewed. This CT exam was performed using one or more of the following dose reduction techniques: automated exposure control, adjustment of the mA and/or kV according to patient size, and/or use of iterative reconstruction technique. MIP reconstructed images were created and reviewed. CONTRAST: 119 ml of Optiray 320 was administered intravenously. COMPARISON: 05/24/2024 FINDINGS: VASCULATURE: Aorta: No acute change noted. No thoracic aortic aneurysm or dissection. Celiac trunk and mesenteric arteries: No acute change noted. No occlusion or significant stenosis. Renal arteries: No acute change noted. No occlusion or significant stenosis. Iliac arteries: No acute change noted. No occlusion or significant stenosis. Lung bases: No abnormality noted. No mass. No consolidation. ABDOMEN: Liver: Normal size and contour. Hypodense typical of steatosis. No mass or ductal dilation. Gallbladder and bile ducts: No abnormality noted. No calcified stones. No ductal dilation. Pancreas: No abnormality noted. No ductal dilation. No mass. Spleen: No abnormality noted. No splenomegaly. Adrenals: No abnormality noted. No mass. Kidneys and ureters: No abnormality noted. No obstructing stones. No hydronephrosis. No solid mass. Stomach and bowel: Colonic diverticulosis without diverticulitis. No intestinal thickening or obstruction. PELVIS: Appendix: Well seen and appears normal. Bladder: No abnormality noted. No stones. No mass. Reproductive: Hysterectomy. ABDOMEN and PELVIS: Intraperitoneal space: No abnormality noted. No significant fluid collection. No free air. 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 No evidence of leak. No dissection or hemorrhage. There is a patent cross femoral bypass with stable seromas at the anastomoses left measuring 5.4 x 3.1 cm and the right 3.6 x 2.0 cm. Soft tissues: Stable midline upper abdominal fat-containing ventral, supraumbilical and umbilical hernias noted. Lymph nodes: No abnormality noted. No enlarged lymph nodes. IMPRESSION: 1. 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 Stable patent cross femoral bypass with seromas at the anastomoses. 2. Diverticulosis without diverticulitis. 3. Hepatic steatosis. ACT 112: Negative or not required by law. Electronically signed by Laquita Flores 06-13-2024 6:38 PM
--- NOTE | 2024-06-13 18:46 | CT Scan Report ---
EXAM: CT Angiography Chest Without and With Intravenous Contrast INDICATION: Chest pain. TECHNIQUE: Axial computed tomographic angiography images of the chest without and with intravenous contrast. Sagittal and coronal reformatted images were created and reviewed. This CT exam was performed using one or more of the following dose reduction techniques: automated exposure control, adjustment of the mA and/or kV according to patient size, and/or use of iterative reconstruction technique. MIP reconstructed images were created and reviewed. COMPARISON: 05/24/2024 FINDINGS: Pulmonary arteries: No pulmonary embolus noted. Aorta: Minimal atherosclerotic calcification of the aortic arch. Lungs and pleural spaces: Stable paraseptal and centrilobular emphysematous changes with generalized interstitial scarring. Mild dependent atelectasis noted in both lungs noted. No pleural effusion or pneumothorax. No mass. Heart: No abnormality noted. No cardiomegaly. No significant pericardial effusion. No evidence of RV dysfunction. Bones/joints: No acute or atypical chronic changes. Soft tissues: No abnormality noted. Lymph nodes: No abnormality noted. No enlarged lymph nodes. IMPRESSION: 1. No thoracic aneurysm or dissection. No pulmonary embolus. 2. Emphysematous changes without infiltrate or mass. ACT 112: Negative or not required by law. Electronically signed by Laquita Flores 06-13-2024 6:45 PM
--- NOTE | 2024-06-13 18:48 | XRay Report ---
EXAM: Radiograph of the Chest 1 View INDICATION: Chest pain. TECHNIQUE: Frontal view of the chest. COMPARISON: 05/24/2024 FINDINGS: Lungs and pleural spaces: Stable hyperinflation and mild symmetrical interstitial scarring. No consolidation or pulmonary edema. No pleural effusion or pneumothorax. Heart: Shape and configuration within normal limits allowing for technique. Mediastinum: Normal contour. Bones/joints: Old right rib fracture. Degenerative spine. Lower cervical hardware identified. No acute osseous abnormality. Soft tissues: No abnormality noted. No radiopaque foreign body noted. Upper abdomen: No abnormality noted. IMPRESSION: Stable chronic changes. No acute disease. ACT 112: Negative or not required by law. Electronically signed by Laquita Flores 06-13-2024 6:47 PM
[2024-06-13] MEDS: hydrALAZINE HCL 20 MG/ML VIAL IV STA (18:57)
[2024-06-13] MEDS: NITROGLYCERIN SL 0.4 MG/TAB TAB SL STA (19:15)
[2024-06-13] MEDS: LABETALOL HCL IV 5 MG/ML 20ML IV STA (19:15)
[2024-06-13] MEDS: SODIUM CHLORIDE 0.9% 500 ML IV ONE ×2 (19:34→20:30)
--- NOTE | 2024-06-13 20:29 | History & Physical Report ---
Date of Service June 13, 2024 Assessment & Plan (1) Hypertensive urgency: (2) MP (acute kidney injury): (3) Non-ST elevation NV (NSTEMI): (4) Diabetes mellitus: (5) PRES (posterior reversible encephalopathy syndrome): (6) Cerebellar stroke: (7) Seizure disorder: (8) HTN (hypertension): (9) CAD (coronary artery disease): Plan Hypertensive urgency/hypertension/CAD/PAD- Initial blood pressure upon arrival was 215/122- After receiving fentanyl, hydralazine, labetalol, and nitroglycerin sublingual, pressure had decreased to 80/65. With fluid resuscitation, pressure is now increased to 110/64 Evening medications will be held, with anticipation that the patient's blood p ressure will likely increase during the night, and will need to have treatment at that point Initial troponin 16.9, with follow-up 21.8. The patient will be admitted to telemetry for serial cardiac enzymes, serial EKG's, cardiac rhythm monitoring Most recent echocardiogram on 05/24/2024, with ejection fraction 50-55% Acute kidney injury: Creatinine increased to 1.42, with base 0.87. Rehydrating with IV fluids, recheck laboratories in the a.m. holding Entresto this evening Symptoms this evening began with a word fight with her daughter a few days ago. Continue apixaban, clopidogrel Hold carvedilol and entresto for now due to hypotension, and resume as needed DM-Hold metformin, place on novolog and SSI Seizure disorder, continue keppra History of Present Illness Chief Complaint: The patient presents to the emergency department with not feeling well over the past 3 days, with substernal chest discomfort, radiating up to her neck bilaterally and a headache. Her symptoms began after a fight with her daughter, which began when one of her 8-year-old granddaughter twins had a bad grade at school, and their punishment was not to be able to see her nanny and Pap, and the patient is upset about not seeing her granddaughter. 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 The patient presents to the emergency department with symptoms as noted above. Her blood pressure upon arrival was 215/122, and after receiving multiple medications including fentanyl, hydralazine, labetalol and nitroglycerin sublingual, her blood pressure dropped to a low of 80/65, and has since rebounded with IV fluid resuscitation to 110/64. Troponin initially 16.9, with follow-up 21.8. Her main complaint at this time is feeling very fatigued and weak Allergies Allergy/AdvReac Type Severity Reaction Status Date / Time napoles Allergy Intermediate Hives Verified 06/07/24 10:55 (green/hartman beans) doxycycline Allergy Intermediate Hives, Verified 06/07/24 10:55 vomiting Iodinated Contrast Media Allergy Intermediate Large Verified 06/07/24 10:55 hives, vomiting, "feeling hot" iodine Allergy Intermediate Hives, Verified 06/07/24 10:55 vomiting latex Allergy Intermediate Rash Verified 06/07/24 10:55 loperamide Allergy Intermediate Hives, Verified 06/07/24 10:55 vomiting meperidine Allergy Intermediate Hives, Verified 06/07/24 10:55 vomiting strawberry Allergy Intermediate Hives Verified 06/07/24 10:55 tomato Allergy Intermediate Hives Verified 06/07/24 10:55 prochlorperazine Allergy Mild N/V, Verified 06/07/24 10:55 itchiness Home Medications Medication Instructions Recorded Confirmed Type Auto Titrating CPAP #1 ea 07/15/22 06/13/24 Rx carvedilol 25 mg tablet 25 mg PO BID #60 tabs 01/01/23 06/13/24 Rx ipratropium 20 mcg-albuterol 100 1 puff inhalation Q6H PRN SOB 01/01/23 06/13/24 History mcg/actuation mist for inhalation (Combivent Respimat) mecobalamin (vitamin B12) 1,000 1,000 mcg PO QAM 09/30/23 06/13/24 History mcg chewable tablet rosuvastatin 40 mg tablet (Crestor) 40 mg PO HS #90 tabs 10/10/23 06/13/24 Rx levetiracetam 1,000 mg tablet 1,000 mg PO BID #180 tabs 10/13/23 06/13/24 Rx (Keppra) pantoprazole 40 mg tablet,delayed 40 mg PO BID #180 tabs 10/31/23 06/13/24 Rx release amitriptyline 25 mg tablet 25 mg PO HS #90 tabs 12/15/23 06/13/24 Rx clopidogrel 75 mg tablet (Plavix) 75 mg PO HS #90 tabs 12/23/23 06/13/24 Rx venlafaxine 150 mg 150 mg PO QAM #90 caps 01/30/24 06/13/24 Rx capsule,extended release 24 hr apixaban 5 mg tablet (Eliquis) 5 mg PO BID #180 tabs 04/06/24 06/13/24 Rx ondansetron HCl 4 mg tablet 4 mg PO Q8H PRN nausea and 05/28/24 06/13/24 Rx vomiting #30 tabs sacubitril 49 mg-valsartan 51 mg 1 tab PO BID #60 tabs 05/28/24 06/13/24 Rx tablet (Entresto) cholecalciferol (vitamin D3) 50 2,000 unit PO HS #90 tabs 06/07/24 06/13/24 Rx mcg (2,000 unit) tablet nitroglycerin 0.4 mg sublingual 0.4 mg sublingual UD PRN Chest Pain 06/07/24 06/13/24 History tablet potassium chloride 20 mEq 20 meq PO DAILY #30 tabs 06/07/24 06/13/24 Rx tablet,extended release metformin 500 mg tablet 500 mg PO QAM 06/13/24 06/13/24 History roeybbho-iqvs-tyvh 8 mg-folic 400 1 tab PO DAILY 06/13/24 06/13/24 History mcg-K 50 mcg-lutein 300 mcg tablet (Centrum Silver Women) Past Med/Surg History Problem List (Updated 06/13/24 @ 19:47 by Sneha Gracia MD) Hypertensive urgency (Acute) MP (acute kidney injury) (Acute) Non-ST elevation NV (NSTEMI) (Acute) Nausea & vomiting (Acute) Chest pain (Acute) Diabetes mellitus Chest pain Elevated troponin I level (Acute) Abdominal pain (Acute) Vomiting (Acute) Acute upper gastrointestinal bleeding (Acute) Hypertensive urgency (Acute) PRES (posterior reversible encephalopathy syndrome) (Acute) Vertigo (Acute) Cerebellar stroke Occlusion of left iliac artery Marijuana dependence (Acute) Hx-TIA (transient ischemic attack) pt denies Diverticulosis Carpal tunnel syndrome Cervical spondylosis with myelopathy and radiculopathy Vitamin D deficiency Seizure disorder Hypomagnesemia (Acute) Upper gastrointestinal bleed 2021, resolved Cyclic vomiting syndrome no GI pathology on EGD, US, CT of abd/pelvis, celiac testing and GES per 04/2020 GI consult: biliary w/u and upper GI study recommended (upper GI study neg per d/c summary), cannabis cessation, continue Protonix and prn Zofran > currently controlled Peripheral arterial disease Bilateral external iliac artery occlusion with common femoral artery reconstitution-02/2021 aorta with runoff CTA, follows with Dr. Maynard Obstructive sleep apnea mod-severe per PCP records (does not have device) GERD (gastroesophageal reflux disease) Renal artery stenosis following with Dr Maynard HTN (hypertension) h/o multiple hypertensive urgency episodes, renal artery stenosis, following with cardiology and vascular surgery Carotid stenosis < 50% stenosis B/L per US 12/16/18 CAD (coronary artery disease) Mild-moderate non-obstructive CAD per 2017 cardiac cath Pulmonary emphysema well controlled per pt Multiple thyroid nodules Hyperlipidemia Anxiety disorder Medical History (Updated 06/13/24 @ 19:47 by Sneha Gracia MD) Hypertensive emergency Hypertensive urgency, malignant Hypertensive urgency Elevated troponin Hypertensive emergency Hypokalemia Hypophosphatemia Tachycardia Postoperative nausea Seizures 2019 r/t hypertensive emergency > encephalopathy. last seizure 2019 Hematemesis History of COVID-19 03/18/22, pcr [facility] [place], hospitalized day after diagnosis due to vomiting blood, discharged on 03/22/22; fever, vomiting, body chills and aches, diarrhea > resolved currently. Ischemia of right lower extremity Prediabetes diet controlled Depression Seizure Proteinuria Cyclic vomiting syndrome Hypercalcemia PRES (posterior reversible encephalopathy syndrome) has since caused seizures that started in 2019. following with PCP, last seizure per pt 08/2019 per PCP records Cannabinoid hyperemesis syndrome History of diverticulitis of colon Most recent 04/2022 Transient cerebrovascular ischemia Per records, pt unaware Cervical disc disorder Full ROM per pt Takotsubo cardiomyopathy 2017. Admitted [facility], full cardiac workup including cath. EF at the time 40%, now subsequent echos. Follows with Dr. Rodriguez NSTEMI (non-ST elevated myocardial infarction) 2017 Surgical History History of anesthesia reaction Low O2 sats during colonoscopy 04/2022 at [facility] and post-procedure elevated BP. Per post-op anesthesia progress note, O2 96-100% RA and "Pt has increased BP 2ndary to abdominal pain. Pt also has nausea w/ dry heaves. Pt to have CT scan per Dr Patten." History of tooth extraction History of cataract surgery bilat Status post surgery RLE thrombectomy S/P aortobifemoral bypass surgery Sep 2021 [facility] History of esophagogastroduodenoscopy (EGD) H/O cervical spine surgery ACDF C4-7 Dr. [place]: Grade 1 view, Bojorquez#2 and ETT#7.5 atraumatic x 1. No issues per anesthesia postop progress note. ROM WNL History of cardiac cath 2017 > no stents History of ovarian cystectomy History of hernia surgery right inguinal hernia repair History of hysterectomy Family History Father Family history of stomach cancer Malignant neoplasm of esophagus Stomach cancer Myocardial infarction Stroke Uncle Throat cancer Family history of cancer FAMILY HISTORY OF CANCER - UNCLE - VOCAL CORDS FAMILY HISTORY OF CANCER - AUNT - ? KIND Grandmother (Maternal) Bone cancer Breast cancer Mother No problems noted. Brother Lung cancer Other Family history of diabetes mellitus No family history of adverse response to anesthesia No pertinent family history Denies family history of Colon cancer Ovarian cancer Prostate cancer Crohn's disease IBD (inflammatory bowel disease) Social History Smoking Status: Former smoker Tobacco Type: Cigarettes Age Started Using Tobacco: 20; Age Quit Using Tobacco: 49; packs per day: 1.5; Second Hand Exposure: No; Do You Dip or Chew Tobacco: No; Hx Alcohol Use: Yes Alcohol type: beer Hx Substance Use: Yes Last Used Substance: Days (ago) Last Used Substance Other:: 4 days ago last used. 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 Feels Safe at Home: Yes Childhood Exposure to Second-Hand Smoke: Yes Diet: regular Diet Comment: Regular caffeine: Yes (1 cup of coffee) during the past year weight has: other Dental Care, Regularly: No Physical Activity Frequency: Daily Physical Activity Frequency Comment: walking Seatbelt Use: always Sunscreen Use: Yes Assistive Devices: Denture - Upper and Denture - Lower Review of Systems Review of Systems: The patient presently denies chest pain, palpitations, shortness of breath, dyspnea on exertion, cough, lower extremity swelling, sore throat, fevers, chills, sweats, fatigue, nausea, vomiting, diarrhea , constipation, abdominal pain, pelvic pain, blood in urine or stool, dysuria, urinary frequency or urgency, lightheadedness, dizziness, headache, memory loss, loss of consciousness, rash, abnormal bruising or bleeding, imbalance, focal weakness, numbness or tingling in arms or legs, generalized arthralgias or myalgias, back or neck pain, or night sweats. The review of systems is otherwise negative other than for that already noted above, and at least 10 systems have been reviewed. Physical Exam Physical Exam: The patient is awake, alert and oriented 3, very fatigued, well developed and well nourished, normocephalic and atraumatic, lying in bed and in no acute distress. HEENT--PERRL, EOMI, mucous membranes and oropharynx dry. Neck--supple. No JVD. No bruits. Thyroid normal, trachea midline, no adenopathy. Heart--normal S1 and S2. No murmurs, rubs or gallops. Lungs--clear bilaterally, no respiratory distress, no accessory muscle use. Abdomen--normal bowel sounds and soft. Nontender. Nondistended, no hernias or masses, no organomegaly. Extremities--no cyanosis or clubbing. No edema. There are good distal pulses b/l. Dermatologic--normal skin turgor, normal color, no abnormal lymph nodes, no rash. Neurologic--cranial nerves II through XII grossly intact. Rheumatologic--normal range of motion. Psychiatric--normal affect. Results & Data Results & Data Vital Signs (Past 12 Hours) Vital Signs Temp Pulse Pulse Resp BP BP Pulse Ox 06/13/24 20:25 93/70 L 06/13/24 20:08 82 16 90/52 L 95 06/13/24 20:08 82 90/52 L 06/13/24 19:37 82 18 85/49 L 93 06/13/24 19:15 82 18 80/65 L 06/13/24 18:57 82 20 219/131 H 98 06/13/24 18:11 92 H 20 217/141 H 99 06/13/24 17:09 82 06/13/24 16:54 99 06/13/24 16:54 99 06/13/24 16:31 06/13/24 16:26 37.1 C 68 16 215/122 H 100 O2 Del Method 06/13/24 20:25 06/13/24 20:08 06/13/24 20:08 06/13/24 19:37 Room Air 06/13/24 19:15 06/13/24 18:57 06/13/24 18:11 Room Air 06/13/24 17:09 06/13/24 16:54 Room Air 06/13/24 16:54 Room Air 06/13/24 16:31 Room Air 06/13/24 16:26 Laboratory Results Laboratory Results WBC 9.79 K/ul (4.8-10.8) 06/13/24 16:52 RBC 5.11 M/uL (4.20-5.40) 06/13/24 16:52 Hgb 16.0 g/dl (12.0-16.0) 06/13/24 16:52 Hct 46.0 % (37.0-47.0) 06/13/24 16:52 MCV 90.0 fL (80.0-100.0) 06/13/24 16:52 MCH 31.3 pg (25.0-34.0) 06/13/24 16:52 MCHC 34.8 g/dL (32.0-36.0) 06/13/24 16:52 RDW Std Deviation 40.0 fL (36.4-46.3) 06/13/24 16:52 RDW Coeff of Jose Luis 12.3 % (11.5-14.5) 06/13/24 16:52 Plt Count 364 K/uL (130-400) 06/13/24 16:52 MPV 10.0 fL (9.4-12.4) 06/13/24 16:52 Immature Gran % (Auto) 0.3 % 06/13/24 16:52 Neut % (Auto) 63.4 % 06/13/24 16:52 Lymph % (Auto) 25.6 % 06/13/24 16:52 [place] % (Auto) 7.4 % 06/13/24 16:52 Eos % (Auto) 2.0 % 06/13/24 16:52 Baso % (Auto) 1.3 % 06/13/24 16:52 Neut # (Auto) 6.20 K/uL (1.40-6.50) 06/13/24 16:52 Lymph # (Auto) 2.51 K/uL (1.20-3.40) 06/13/24 16:52 [place] # (Auto) 0.72 K/uL (0.11-0.59) H 06/13/24 16:52 Eos # (Auto) 0.20 K/uL (0.00-0.50) 06/13/24 16:52 Baso # (Auto) 0.13 K/uL (0.00-0.20) 06/13/24 16:52 Immature Gran # (Auto) 0.03 K/uL (0.01-0.20) 06/13/24 16:52 PT 10.9 Seconds (9.0-12.0) 06/13/24 16:52 INR 1.0 (0.9-1.1) 06/13/24 16:52 APTT 29 Seconds (21-31) 06/13/24 16:52 PTT Ratio 1.1 06/13/24 16:52 Sodium 134 mmol/L (136-145) L 06/13/24 16:52 Potassium 4.2 mmol/L (3.5-5.1) 06/13/24 16:52 Chloride 101 mmol/L (98-107) 06/13/24 16:52 Carbon Dioxide 19 mmol/L (21-32) L 06/13/24 16:52 Anion Gap 14 (3-11) H 06/13/24 16:52 BUN 32 mg/dl (6-23) H 06/13/24 16:52 Creatinine 1.42 mg/dl (0.6-1.2) H 06/13/24 16:52 Est Cr Clr Drug Dosing 46.7 ml/min 06/13/24 16:52 eGFR 42.87 06/13/24 16:52 BUN/Creatinine Ratio 22.5 (10-20) H 06/13/24 16:52 Glucose 138 mg/dl (70-99(Fasting)) H 06/13/24 16:52 Calcium 10.2 mg/dl (8.6-10.3) 06/13/24 16:52 Total Bilirubin 0.6 mg/dl (0.2-1.0) 06/13/24 16:52 AST 17 U/L (13-39) 06/13/24 16:52 ALT 12 U/L (7-52) 06/13/24 16:52 Alkaline Phosphatase 87 U/L (34-104) 06/13/24 16:52 Troponin I High Sens 21.8 pg/ml (0-14) H 06/13/24 19:00 Total Protein 8.1 gm/dl (6.0-8.3) 06/13/24 16:52 Albumin 4.7 gm/dl (3.4-5.0) 06/13/24 16:52 Globulin 3.4 gm/dl (2.5-4.0) 06/13/24 16:52 Albumin/Globulin Ratio 1.4 (0.9-2) 06/13/24 16:52 Impressions Chest X-Ray 06/13/24 16:53 EXAM: Radiograph of the Chest 1 View INDICATION: Chest pain. TECHNIQUE: Frontal view of the chest. COMPARISON: 05/24/2024 FINDINGS: Lungs and pleural spaces: Stable hyperinflation and mild symmetrical interstitial scarring. No consolidation or pulmonary edema. No pleural effusion or pneumothorax. Heart: Shape and configuration within normal limits allowing for technique. Mediastinum: Normal contour. Bones/joints: Old right rib fracture. Degenerative spine. Lower cervical hardware identified. No acute osseous abnormality. Soft tissues: No abnormality noted. No radiopaque foreign body noted. Upper abdomen: No abnormality noted. IMPRESSION: Stable chronic changes. No acute disease. ACT 112: Negative or not required by law. Electronically signed by Laquita Flores 06-13-2024 6:47 PM Abdomen/Pelvis CTA 06/13/24 17:38 EXAM: CT Angiography Abdomen and Pelvis Without and With Intravenous Contrast INDICATION: History of abdominal aortic aneurysm. TECHNIQUE: Axial computed tomographic angiography images of the abdomen and pelvis without and with intravenous contrast. Sagittal and coronal reformatted images were created and reviewed. This CT exam was performed using one or more of the following dose reduction techniques: automated exposure control, adjustment of the mA and/or kV according to patient size, and/or use of iterative reconstruction technique. MIP reconstructed images were created and reviewed. CONTRAST: 119 ml of Optiray 320 was administered intravenously. COMPARISON: 05/24/2024 FINDINGS: VASCULATURE: Aorta: No acute change noted. No thoracic aortic aneurysm or dissection. Celiac trunk and mesenteric arteries: No acute change noted. No occlusion or significant stenosis. Renal arteries: No acute change noted. No occlusion or significant stenosis. Iliac arteries: No acute change noted. No occlusion or significant stenosis. Lung bases: No abnormality noted. No mass. No consolidation. ABDOMEN: Liver: Normal size and contour. Hypodense typical of steatosis. No mass or ductal dilation. Gallbladder and bile ducts: No abnormality noted. No calcified stones. No ductal dilation. Pancreas: No abnormality noted. No ductal dilation. No mass. Spleen: No abnormality noted. No splenomegaly. Adrenals: No abnormality noted. No mass. Kidneys and ureters: No abnormality noted. No obstructing stones. No hydronephrosis. No solid mass. Stomach and bowel: Colonic diverticulosis without diverticulitis. No intestinal thickening or obstruction. PELVIS: Appendix: Well seen and appears normal. Bladder: No abnormality noted. No stones. No mass. Reproductive: Hysterectomy. ABDOMEN and PELVIS: Intraperitoneal space: No abnormality noted. No significant fluid collection. No free air. 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 No evidence of leak. No dissection or hemorrhage. There is a patent cross femoral bypass with stable seromas at the anastomoses left measuring 5.4 x 3.1 cm and the right 3.6 x 2.0 cm. Soft tissues: Stable midline upper abdominal fat-containing ventral, supraumbilical and umbilical hernias noted. Lymph nodes: No abnormality noted. No enlarged lymph nodes. IMPRESSION: 1. 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 Stable patent cross femoral bypass with seromas at the anastomoses. 2. Diverticulosis without diverticulitis. 3. Hepatic steatosis. ACT 112: Negative or not required by law. Electronically signed by Laquita Flores 06-13-2024 6:38 PM Chest CTA 06/13/24 17:38 EXAM: CT Angiography Chest Without and With Intravenous Contrast INDICATION: Chest pain. TECHNIQUE: Axial computed tomographic angiography images of the chest without and with intravenous contrast. Sagittal and coronal reformatted images were created and reviewed. This CT exam was performed using one or more of the following dose reduction techniques: automated exposure control, adjustment of the mA and/or kV according to patient size, and/or use of iterative reconstruction technique. MIP reconstructed images were created and reviewed. COMPARISON: 05/24/2024 FINDINGS: Pulmonary arteries: No pulmonary embolus noted. Aorta: Minimal atherosclerotic calcification of the aortic arch. Lungs and pleural spaces: Stable paraseptal and centrilobular emphysematous changes with generalized interstitial scarring. Mild dependent atelectasis noted in both lungs noted. No pleural effusion or pneumothorax. No mass. Heart: No abnormality noted. No cardiomegaly. No significant pericardial effusion. No evidence of RV dysfunction. Bones/joints: No acute or atypical chronic changes. Soft tissues: No abnormality noted. Lymph nodes: No abnormality noted. No enlarged lymph nodes. IMPRESSION: 1. No thoracic aneurysm or dissection. No pulmonary embolus. 2. Emphysematous changes without infiltrate or mass. ACT 112: Negative or not required by law. Electronically signed by Laquita Flores 06-13-2024 6:45 PM Code Status & VTE Plan Code Status Full code PG Care Time/CCT Total # of Minutes Spent Total Time Spent with Patient: Total time spent is greater than 50% in coordination of care (as documented) at patient's floor/unit and/or counseling patient: Coding Level of Care Code 53460 INT INP/OBS CARE 3/75MIN Diagnoses Hypertensive urgency I16.0 MP (acute kidney injury) N17.9 Non-ST elevation NV (NSTEMI) I21.4 Diabetes mellitus E11.9 Diabetes mellitus type: type 2 Diabetes mellitus tank terminal gauger insulin use: without intermediate use Diabetes mellitus complication detail: with other circulatory complications PRES (posterior reversible encephalopathy syndrome) I67.83 Cerebellar stroke I63.9 Seizure disorder G40.909 HTN (hypertension) I10 Coronary artery disease involving [place] coronary artery of [place] heart without angina pectoris I25.10 Coronary Disease-Associated Artery/Lesion type: [place] artery [place] vs. transplanted heart: [place] heart Associated angina: without angina (4) Diabetes mellitus Diabetes mellitus type: type 2 Diabetes mellitus tank terminal gauger insulin use: without tank terminal gauger use Diabetes mellitus complication detail: with other circulatory complications (9) CAD (coronary artery disease) Coronary Disease-Associated Artery/Lesion type: [place] artery [place] vs. tr ansplanted heart: [place] heart Associated angina: without angina Qualified Code(s): I25.10 - Atherosclerotic heart disease of [place] coronary artery without angina pectoris
[2024-06-13] MEDS ORDERED: CARBOHYDRATES FOR HYPOGLYCEMIA PO PRN (22:40)
[2024-06-13] MEDS ORDERED: GLUCOSE 40% GEL 15 GM TUBE PO PRN (22:40)
[2024-06-13] MEDS ORDERED: ONDANSETRON INJ 2 MG/ML 2 ML VIAL IV PRN (22:40)
[2024-06-13] MEDS ORDERED: GLUCOSE 10 TAB/TUBE PO PRN (22:40)
[2024-06-13] MEDS ORDERED: IPRATROPIUM BROMIDE/ALBUTEROL respimat INH INH PRN (22:40)
[2024-06-13] MEDS ORDERED: DEXTROSE 50% 50 ML SYRINGE IV PRN (22:40)
[2024-06-13] MEDS ORDERED: ACETAMINOPHEN 325 MG TAB PO PRN (22:40)
[2024-06-13] MEDS ORDERED: GLUCAGON FOR INJ 1 MG VIAL SQ PRN (22:40)
[2024-06-13] MEDS ORDERED: IPRATROPIUM BROMIDE HFA INHALER INH PRN (22:53)
[2024-06-13] MEDS ORDERED: ALBUTEROL HFA 8 GM INHALER INH PRN (22:53)
[2024-06-13] MEDS ORDERED: ONDANSETRON 4 MG OD TAB PO PRN (22:53)
[2024-06-13] MEDS: ROSUVASTATIN CALCIUM 20 MG TAB PO SCH (23:51)
[2024-06-13] MEDS: PANTOprazole 40 MG TAB PO SCH (23:51)
[2024-06-13] MEDS: levETIRAcetam 500 MG TAB PO SCH (23:52)
[2024-06-13] MEDS: CLOPIDOGREL BISULFATE 75 MG TAB PO SCH (23:52)
[2024-06-13] MEDS: CHOLECALCIFEROL 25 MCG (1000 UNITS) TAB PO SCH (23:52)
[2024-06-13] MEDS: APIXABAN 5 MG TABLET PO SCH (23:53)
[2024-06-13] MEDS: AMITRIPTYLINE HCL 25 MG TAB PO SCH (23:53)
[2024-06-13] MEDS: INSULIN ASPART PER UNIT CHARGE SC SCH (23:53)
[2024-06-14 07:03] LABS: Basophils # (auto) 0.01 K/uL (0.00-0.20); Basophils % (auto) 0.1 %; Hematocrit (blood only) 41.7 % (37.0-47.0); Hemoglobin 14.1 g/dl (12.0-16.0); Immature Granulocytes # (auto) 0.04 K/uL (0.01-0.20); Immature Granulocytes % (auto) 0.6 %; Lymphocytes # (auto) 1.01 K/uL (1.20-3.40); Lymphocytes % (auto) 14.6 %; Mean Corpuscular Hemoglobin 30.9 pg (25.0-34.0); Mean Corpuscular Hgb Conc 33.8 g/dL (32.0-36.0); Mean Corpuscular Volume 91.4 fL (80.0-100.0); Mean Platelet Volume 9.9 fL (9.4-12.4); Monocytes # (auto) 0.24 K/uL (0.11-0.59); Monocytes % (auto) 3.5 %; Neutrophils # (auto) 5.64 K/uL (1.40-6.50); Neutrophils % (auto) 81.2 %; Platelet Count 303 K/uL (130-400); RDW Coefficient of Variation 12.3 % (11.5-14.5); Red Blood Count 4.56 M/uL (4.20-5.40); White Blood Count 6.94 K/ul (4.8-10.8)
[2024-06-14 07:31] LABS: Alanine Aminotransferase 11 U/L (7-52); Albumin Globulin Ratio 1.4 (0.9-2); Alkaline Phosphatase 68 U/L (34-104); BUN Creatinine Ratio 22.1 (10-20); Bilirubin,Total 0.3 mg/dl (0.2-1.0); Blood Urea Nitrogen 21 mg/dl (6-23); Calcium 9.5 mg/dl (8.6-10.3); Carbon Dioxide 22 mmol/L (21-32); Chloride 106 mmol/L (98-107); Creatinine Clr Calc Pharmacy 69.7 ml/min; Globulin 2.8 gm/dl (2.5-4.0); Glucose 137 mg/dl (70-99(Fasting)); Total Protein 6.8 gm/dl (6.0-8.3); Troponin I High Sensitivity 17.3 pg/ml (0-14)
[2024-06-14 08:40] LABS: Magnesium 1.9 mg/dl (1.7-2.4)
[2024-06-14] MEDS: CYANOCOBALAMIN (B-12) 500 MCG TABLET PO SCH (08:48)
[2024-06-14] MEDS: VENLAFAXINE HCL XR 150 MG CAPXR PO SCH (08:48)
[2024-06-14] MEDS: POTASSIUM CHLORIDE CRTAB 20 MEQ TABCR PO SCH (08:49)
--- NOTE | 2024-06-14 16:42 | Hospitalist Progress Note ---
Date of Service June 14, 2024 Assessment & Plan (1) Hypertensive urgency: Plan: Patient presented to ED on 06/13 with chief complaint of chest pain radiating to neck and headache. Initial blood pressure upon arrival was 215/122- After receiving fentanyl, hydralazine, labetalol, and nitroglycerin sublingual, pressure had decreased to 80/65. With fluid resuscitation, pressure increased to 110/64 Entresto and Carvedilol on hold, plan to resume 06/15 if BP remains stable. troponin 16.9 --> 21.8 0--> 17.3 likely demand. EKG without ischemic changes. Echo 05/2024: EF 50-55% AM CBC, BMP (2) Non-ST elevation [place] (NSTEMI): Plan: see plan above (3) MP (acute kidney injury): Plan: Creatinine 1.42 on admission. Reviewed BMP 06/14: corrected to 0.95. electrolytes stable. Plan to resume Entresto 06/15 AM. (4) Diabetes mellitus: Plan: Placed on Novolog with SSI goal: 120-160mg/dL CF: 50 Carb ratio 20 Home regimen: Metformin Plan Chronic conditions: CAD: Eliquis, Rosuvastatin Hx CVA: Plavix Seizure d/o: [facility] Mental health: Venlafaxine, Amitriptyline GERD: PPI DVT prophylaxis: Eliquis Diet: heart healthy, carb consistent Code status: full Disposition: anticipate d/c 06/15. Admission and Anticipated Discharge Date Admission Date: June 13, 2024 Subjective Patient seen and examined this morning. Patient reports fatigue and decreased appetite. States her chest discomfort and headache has subsided. Physical Exam 2 Constitutional: WD/WN, vitals as above Eyes: PERRL, conjunctivae normal, anicteric sclerae Respiratory: normal respiratory effort, lungs clear to auscultation Cardiovascular: RRR, no murmur, no edema Psychiatric: A+Ox3, euthymic affect Results & Data Results & Data Vital Signs (Past 12 Hours) Vital Signs Temp Pulse Resp BP Pulse Ox O2 Del Method 06/14/24 11:02 36.9 C 74 17 115/82 92 Room Air 06/14/24 08:29 36.8 C 73 17 112/76 93 Room Air Laboratory Results 06/14/24 06:49 06/14/24 07:53 PG Care Time/CCT Total # of Minutes Spent Total Time Spent with Patient: Total time spent is greater than 50% in coordination of care (as documented) at patient's floor/unit and/or counseling patient: Coding Level of Care Code 23593 SUB INP/OBS CARE 2/35MIN Diagnoses Hypertensive urgency I16.0 Non-ST elevation [place] (NSTEMI) I21.4 MP (acute kidney injury) N17.9 Diabetes mellitus E11.9 Diabetes mellitus type: type 2 Diabetes mellitus terminal computer operator insulin use: without group home use Diabetes mellitus complication detail: with other circulatory complications (4) Diabetes mellitus Diabetes mellitus type: type 2 Diabetes mellitus group home insulin use: w ithout terminal computer operator use Diabetes mellitus complication detail: with other circulatory complications
[2024-06-15 06:36] LABS: Basophils # (auto) 0.07 K/uL (0.00-0.20); Basophils % (auto) 0.9 %; Eosinophils # (auto) 0.07 K/uL (0.00-0.50); Eosinophils % (auto) 0.9 %; Hematocrit (blood only) 41.1 % (37.0-47.0); Immature Granulocytes # (auto) 0.02 K/uL (0.01-0.20); Immature Granulocytes % (auto) 0.3 %; Lymphocytes # (auto) 2.87 K/uL (1.20-3.40); Lymphocytes % (auto) 37.8 %; Mean Corpuscular Hemoglobin 31.7 pg (25.0-34.0); Mean Corpuscular Hgb Conc 34.1 g/dL (32.0-36.0); Mean Platelet Volume 10.3 fL (9.4-12.4); Monocytes # (auto) 0.53 K/uL (0.11-0.59); Neutrophils # (auto) 4.04 K/uL (1.40-6.50); Neutrophils % (auto) 53.1 %; Platelet Count 272 K/uL (130-400); RDW Coefficient of Variation 12.5 % (11.5-14.5); RDW Standard Deviation 42.9 fL (36.4-46.3); Red Blood Count 4.42 M/uL (4.20-5.40)
[2024-06-15 06:55] LABS: Albumin Globulin Ratio 1.6 (0.9-2); BUN Creatinine Ratio 25.8 (10-20); Bilirubin,Total 0.4 mg/dl (0.2-1.0); Calcium 9.8 mg/dl (8.6-10.3); Creatinine Clr Calc Pharmacy 74.4 ml/min; Globulin 2.5 gm/dl (2.5-4.0); Magnesium 2.1 mg/dl (1.7-2.4); Potassium 3.5 mmol/L (3.5-5.1); Total Protein 6.5 gm/dl (6.0-8.3)
[2024-06-15 07:41] VITALS: RESP 14
[2024-06-15] MEDS: VALSARTAN/SACUBITRIL 51/49 MG TAB PO SCH (09:34)
--- NOTE | 2024-06-15 10:14 | Discharge Summary ---
Discharge Summary Date of Service June 15, 2024 Principal Dx & Hospital Course #1 = Principal Diagnosis (1) Hypertensive urgency: Patient presented to ED on 06/13 with chief complaint of chest pain radiating to neck and headache. Initial blood pressure upon arrival was 215/122- After receiving fentanyl, hydralazine, labetalol, and nitroglycerin sublingual, pressure had decreased to 80/65. With fluid resuscitation, pressure increased to 110/64 Entresto and Carvedilol held x 24 hours, resumed 06/15. troponin 16.9 --> 21.8 0--> 17.3 likely demand. EKG without ischemic changes. Echo 05/2024: EF 50-55% (2) Non-ST elevation [place] (NSTEMI): see plan above (3) MP (acute kidney injury): Creatinine 1.42 on admission. Reviewed BMP 06/15: creat 0.89 electrolytes stable. Entresto resumed 06/15. (4) Diabetes mellitus: Resume outpatient regimen of Metformin. 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 The patient presents to the emergency department with symptoms as noted above. Her blood pressure upon arrival was 215/122, and after receiving multiple medications including fentanyl, hydralazine, labetalol and nitroglycerin sublingual, her blood pressure dropped to a low of 80/65, and has since rebounded with IV fluid resuscitation to 110/64. Troponin initially 16.9, with follow-up 21.8. Her main complaint at this time is feeling very fatigued and weak Discharge Exam Constitutional WD/WN, vitals as above Eyes PERRL, conjunctivae normal, anicteric sclerae Respiratory normal respiratory effort, lungs clear to auscultation Cardiovascular RRR, no murmur, no edema Psychiatric A+Ox3, euthymic affect Discharge Plan Discharge Items Patient Disposition: Home - Self-Care Reason For Visit: CHEST PAIN RADIATING TO HER NECK Discharge Diagnosis: Hypertensive urgency Activity: Resume your previous activity Non-emergency contact: Primary Care Provider Call non-emergency contact if: you have any medication questions and your symptoms worsen Follow-up/Referrals: Teena Killian DO [Primary Care Provider] - 06/22/24 8:20 am (Hospital follow up on June 22 at 8:20) Diet: Heart Healthy Addtl Attending Provider Instructions: Ms. Velasquez, You were recently hospitalized for experiencing chest pain with radiation to neck along with a headache. You were found to have a high blood pressure which was likely the cause of your symptoms. Please see recommendations below regarding your discharge. 1. Please continue outpatient medications. 2. Please keep track of your blood pressure daily and report readings to your PCP at your scheduled follow up visit. If you develop any shortness of breath, chest pain, dizziness, lightheadedness please report to the ER for further evaluation. Sincerely, Jessica Harris PA-C Pending Studies at Discharge: No Stand-Alone Forms: [facility], Smoking Cessation Medications and DC Order Prescriptions: Continued rosuvastatin [Crestor] 40 mg tablet 40 mg PO HS Qty: 90 3RF levetiracetam [Keppra] 1,000 mg tablet 1,000 mg PO BID Qty: 180 3RF pantoprazole 40 mg tablet,delayed release (DR/EC) 40 mg PO BID Qty: 180 2RF clopidogrel [Plavix] 75 mg tablet 75 mg PO HS Qty: 90 1RF Patient Comments: PER DR PERSON OFFICE, TOLD TO STOP 7 DAYS BEFORE PROCEDURE venlafaxine 150 mg capsule,extended release 24hr 150 mg PO QAM Qty: 90 1RF Eliquis 5 mg tablet 5 mg PO BID Qty: 180 1RF Combivent Respimat 20-100 mcg/actuation mist 1 puff inhalation Q6H PRN (Reason: SOB) carvedilol 25 mg tablet 25 mg PO BID Qty: 60 2RF Rx Instructions: must administer with a meal/food nitroglycerin 0.4 mg tablet, sublingual 0.4 mg sublingual UD PRN (Reason: Chest Pain) cholecalciferol (vitamin D3) 50 mcg (2,000 unit) tablet 2,000 unit PO HS Qty: 90 3RF potassium chloride 20 mEq tablet extended release 20 meq PO DAILY Qty: 30 2RF mecobalamin (vitamin B12) 1,000 mcg tablet,chewable 1,000 mcg PO QAM Entresto 49-51 mg Tablet 1 tab PO BID Qty: 60 0RF ondansetron HCl 4 mg tablet 4 mg PO Q8H PRN (Reason: nausea and vomiting) Qty: 30 0RF metformin 500 mg tablet 500 mg PO QAM Centrum Silver Women 8 mg iron-400 mcg-50 mcg Tablet 1 tab PO DAILY No Action amitriptyline 25 mg tablet 25 mg PO HS Qty: 90 1RF (DME) blood-glucose meter [FreeStyle Lite Meter] Kit See Rx Instructions .Route Qty: 1 0RF Rx Instructions: Check blood glucose once per day (DME) FreeStyle Lite Strips Strip See Rx Instructions .Route Qty: 100 0RF Rx Instructions: Use with meter to check BG once per day (DME) lancets Misc See Rx Instructions .Route Qty: 100 0RF Rx Instructions: use with meter to heck BG once per day (DME) Auto Titrating CPAP Misc See Rx Instructions .ROUTE .MEDSUPPLY Qty: 1 0RF Rx Instructions: As directed Nightly Discharge Orders: Discharge Order (Routine); Ordered 06/15/24 Ordered By: Jessica Harris Admission Data Admit Date/Time: 06/13/24 20:39 Attending Provider: Wade Wills Admit Provider: Aron Drake Primary Care Provider: Teena Killian Other Interventions: Discharge Summary Assessment (RN) Last Done: 06/15/24 10:18 Hospital Stay Data Consultations 06/13/24 20:08 ED Decision to Admit Stat Diagnostic Imagining Performed 06/13/24 17:38 CTA abd pelvis wo/w con [CT angio abd pelvis wo/w con] Stat CTA chest dissec wo/w con [CT angio chest dissec wo/w con] Stat Pending Results Patient Have Any Pending Studies at Discharge: No Discharge Instructions Given to Patient (Per Discharging Provider) Ms. Velasquez, You were recently hospitalized for experiencing chest pain with radiation to neck along with a headache. You were found to have a high blood pressure which was likely the cause of your symptoms. Please see recommendations below regarding your discharge. 1. Please continue outpatient medications. 2. Please keep track of your blood pressure daily and report readings to your PCP at your scheduled follow up visit. If you develop any shortness of breath, chest pain, dizziness, lightheadedness please report to the ER for further evaluation. Sincerely, Jessica Harris PA-C Supervising Physician Co-Signing Physician Notes During face to face encounter, I obtained a brief physical examination, discussed hospital stay with patient and discharge instructions with patient. I discussed discharge plan of care with BRANDON Harris. I reviewed above note and agree with it except for the following: Patient treated for hypertensive urgency with hydralazine and labetalol. Blood pressure now stable. Will recommend resuming home medications at discharge. Total Time Total Time Spent Total Time Spent (In Minutes): 35 Total Time Includes: Examination of the Patient, Discharge Planning and Medication Reconciliation Coding Level of Care Code 90764 INP/OBS DISCH >30 MIN Diagnoses Hypertensive urgency I16.0 Non-ST elevation [place] (NSTEMI) I21.4 MP (acute kidney injury) N17.9 Diabetes mellitus E11.9 Diabetes mellitus complication detail: with other circulatory complications Diabetes mellitus lead die molder insulin use: without halfway use Diabetes mellitus type: type 2
[2024-06-15 11:10] VITALS: BP 141/92; PULSE 65; TEMP 97.9; O2SAT 91
[2024-06-15] MEDS ORDERED: carvediloL 25 MG TAB PO SCH (17:00)
--- NOTE | 2024-06-16 06:15 | Coding Query ---
CODING QUERY To promote full compliance with coding requirements relating to patient care, provider participation is requested in all cases of investigator internal affairs uncertainty. Please assist us with the question(s) below: Coding Question(s): Per the discharge summary the patient was diagnosed with NSTEMI, however there is also the following documentation. "troponin 16.9 --> 21.8 0--> 17.3 likely demand. EKG without ischemic changes." Can you please clarify the status of the patient's NSTEMI at discharge? NSTEMI, POA (x ) NSTEMI, ruled out ( ) Other, please specify ( ) . Physician's Response(s): Thank you Mary Pradhan Principal Diagnosis: "that condition established after study, to be chiefly responsible for occasioning the admission of the patient to the hospital for care." Co-Existing Principal Diagnosis: "when two or more diagnoses equally meet the criteria for principal diagnosis as determined by the circumstances of admission, diagnostic work up, and/or therapy provided, and the Alphabetic Index, Tabular List, or another coding guideline does not provide sequencing direction, any one of the diagnoses may be sequenced first." "When the physician has documented what appears to be a current diagnosis in the body of the record, but has not included the diagnosis in the final diagnostic statement, the physician should be asked whether the diagnosis should be added." (Source Coding [facility] 2 QTR90. p3-4) GERARD
--- NOTE | 2024-06-16 09:57 | Electrocardiogram Report ---
Test Reason : Blood Pressure : */* mmHG Vent. Rate : 71 BPM Atrial Rate : 71 BPM P-R Int : 210 ms QRS Dur : 90 ms QT Int : 418 ms P-R-T Axes : 68 -56 68 degrees QTcB Int : 454 ms Sinus rhythm with 1st degree A-V block Left axis deviation Abnormal ECG When compared with ECG of 24-May-2024 06:14, Minimal criteria for Inferior infarct are no longer Present T wave inversion no longer evident in Inferior leads T wave amplitude has increased in Lateral leads Confirmed by Marcelo Martin ([id number]) on 06/16/2024 9:57:12 AM Referred By: REFERRED SELF Confirmed By: Marcelo Martin
--- NOTE | 2024-06-16 10:50 | Electrocardiogram Report ---
Test Reason : Blood Pressure : */* mmHG Vent. Rate : 84 BPM Atrial Rate : 84 BPM P-R Int : 176 ms QRS Dur : 84 ms QT Int : 400 ms P-R-T Axes : 48 -12 33 degrees QTcB Int : 473 ms Normal sinus rhythm Normal ECG When compared with ECG of 13-Jun-2024 16:38, (unconfirmed) QT has lengthened Confirmed by Marcelo Martin ([id number]) on 06/16/2024 10:50:33 AM Referred By: REFERRED SELF Confirmed By: Marcelo Martin
--- NOTE | 2024-06-17 08:37 | Electrocardiogram Report ---
Test Reason : Blood Pressure : */* mmHG Vent. Rate : 65 BPM Atrial Rate : 65 BPM P-R Int : 202 ms QRS Dur : 92 ms QT Int : 454 ms P-R-T Axes : 30 -2 12 degrees QTcB Int : 472 ms Normal sinus rhythm Normal ECG When compared with ECG of 15-Jun-2024 05:13, No significant change was found Confirmed by Manoj Hawthorne ([id number]) on 06/17/2024 8:37:35 AM Referred By: REFERRED SELF Confirmed By: Manoj Hawthorne
--- NOTE | 2024-06-17 08:37 | Electrocardiogram Report ---
Test Reason : Blood Pressure : */* mmHG Vent. Rate : 61 BPM Atrial Rate : 61 BPM P-R Int : 212 ms QRS Dur : 84 ms QT Int : 434 ms P-R-T Axes : 22 -11 8 degrees QTcB Int : 436 ms Sinus rhythm with 1st degree A-V block Otherwise normal ECG When compared with ECG of 14-Jun-2024 06:33, AR interval has increased QT has shortened Confirmed by Manoj Hawthorne ([id number]) on 06/17/2024 8:36:47 AM Referred By: REFERRED SELF Confirmed By: Manoj Hawthorne
== END 2024-06-15 13:25 | disposition home or self-care (01) | DRG 304 ==
LOC: ED 16:19 → 4W 20:39 → SUATTDRO 20:39 → 4W 21:46

== ENCOUNTER 2024-12-06 10:10 | Observation (INO) ==
[2024-12-06] MEDS: ONDANSETRON INJ 2 MG/ML 2 ML VIAL IV STA (10:48)
[2024-12-06] MEDS: SODIUM CHLORIDE 0.9% 1,000 ML IV ONE (10:48)
[2024-12-06] MEDS: ACETAMINOPHEN 1,000 MG/100 ML VIAL IV STA (10:49)
[2024-12-06 11:14] LABS: Alanine Aminotransferase 7 U/L (7-52); Albumin Globulin Ratio 1.6 (0.9-2); Albumin Level 4.6 gm/dl (3.4-5.0); Alkaline Phosphatase 79 U/L (34-104); Anion Gap 8 (3-11); Aspartate Aminotransferase 13 U/L (13-39); BUN Creatinine Ratio 27.7 (10-20); Bilirubin,Total 0.5 mg/dl (0.2-1.0); Blood Urea Nitrogen 28 mg/dl (6-23); Calcium 9.7 mg/dl (8.6-10.3); Carbon Dioxide 27 mmol/L (21-32); Chloride 100 mmol/L (98-107); Creatinine Clr Calc Pharmacy 59.4 ml/min; Globulin 2.9 gm/dl (2.5-4.0); Glucose 170 mg/dl (70-99(Fasting)); Lipase 23 U/L (11-82); Magnesium 2.1 mg/dl (1.7-2.4); Potassium 3.7 mmol/L (3.5-5.1); Sodium 135 mmol/L (136-145); Total Protein 7.5 gm/dl (6.0-8.3)
[2024-12-06 11:16] LABS: Basophils # (auto) 0.08 K/uL (0.00-0.20); Basophils % (auto) 0.6 %; Eosinophils # (auto) 0.11 K/uL (0.00-0.50); Eosinophils % (auto) 0.9 %; Hemoglobin 16.4 g/dl (12.0-16.0); Immature Granulocytes # (auto) 0.07 K/uL (0.01-0.20); Immature Granulocytes % (auto) 0.5 %; Lymphocytes # (auto) 1.86 K/uL (1.20-3.40); Lymphocytes % (auto) 14.5 %; Mean Corpuscular Hemoglobin 31.1 pg (25.0-34.0); Mean Corpuscular Hgb Conc 34.9 g/dL (32.0-36.0); Mean Corpuscular Volume 89.2 fL (80.0-100.0); Mean Platelet Volume 10.5 fL (9.4-12.4); Monocytes # (auto) 0.58 K/uL (0.11-0.59); Monocytes % (auto) 4.5 %; Platelet Count 313 K/uL (130-400); RDW Coefficient of Variation 12.7 % (11.5-14.5); RDW Standard Deviation 41.5 fL (36.4-46.3); Red Blood Count 5.27 M/uL (4.20-5.40)
[2024-12-06 11:20] LABS: Troponin I High Sensitivity 15.9 pg/ml (0-14)
--- NOTE | 2024-12-06 11:25 | Emergency Department Note ---
Impression & Plan Intractable nausea and vomiting, Hypertension, Abdominal pain ED Provider Note HISTORY OF PRESENT ILLNESS: Patient is a 59-year-old female presenting with right upper quadrant abdominal pain, nausea and vomiting. Patient reports that she has been unable to keep down any oral intake for the last 3 days. Reports that she was seen here 3 days ago and diagnosed with a viral infection and sent home. Reports that she was initially able to keep down fluids, but then started vomiting 2 days ago and has been unable to tolerate oral intake since. She reports she has had chills but no measured fevers at home. Denies any chest pain or shortness of breath. She locates her abdominal pain to the right upper quadrant. She reports that she still has her gallbladder and appendix. She states that she tried taking Zofran prior to arrival but continued to vomit. She is on Eliquis. She states that she tried taking her blood pressure medications this morning but was unable to keep them down, as about 20 minutes after taking them she vomited. ROS: as above PHYSICAL EXAM: Constitutional: Patient appears in no acute distress. HENT: Head: Normocephalic and atraumatic. Eyes: EOMI, PERRL Mouth/Throat: Mucous membranes moist. Neck: Trachea midline. Neck supple. Cardiovascular: RRR, No murmurs, rubs or gallops. Intact distal pulses. Pulmonary/Chest: No respiratory distress. Breath sounds clear and equal bilaterally. No wheezes or rales. Abdominal: Abdomen soft, no rebound or guarding. RUQ TTP Musculoskeletal: No edema, tenderness or deformity noted. Skin: Warm and dry. No rash, erythema, pallor or cyanosis Psychiatric: Appropriate mood and affect for situation. Neurological: Alert and keenly responsive. CN II-XII grossly intact, moving all extremities equally and fully. MDM: - Vitals signs showed hypertension - History obtained via patient. History as above. - Chronic conditions affecting care: CAD; HTN; HLD; GERD - Differential diagnoses include, but are not limited to: Biliary colic; cholangitis; cholecystitis; hepatitis; right lower lobe pneumonia; pulmonary embolism; pyelonephritis - Order placed for continuous cardiac monitoring. At this time, monitor showed rate of 78 bpm with normal sinus rhythm, per my interpretation. - External medical records reviewed. CT abdomen/pelvis with IV contrast reviewed from 12/03/2024 was reviewed. Noted to have cholelithiasis without evidence of acute cholecystitis. - EKG image interpreted by myself showed normal sinus rhythm. Rate 66 bpm. QT 428. No acute ischemic changes - Laboratory workup interpreted by myself showed slight leukocytosis (WBC 12.80) with neutrophil predominance; normal lactate; slight hyponatremia (Na 135); hyperglycemia (glucose 170) with normal anion gap; slightly elevated troponin (15.9); normal lipase; normal AST/ALT - US gallbladder showed cholelithiasis without evidence of acute cholecystitis or biliary ductal dilatation. - Patient given 1g IV tylenol, 1L NS and 4 mg IV zofran on arrival for symptomatic management. On reassessment, she is still complaining of abdominal pain and nausea. She was given 5 mg IV hydralazine for her hypertension with little improvement in her blood pressure. - UA negative for infection but noted to have blood in her urine. - CT abdomen/pelvis wo contrast negative for acute pathology. - On reassessment, patient reports she does not feel comfortable going home and reports feeling generally unwell. Unclear etiology for symptoms at this time. - Discussion was had with registered nurse hh case manager about patient's case and need for admission Given 20 mg IV pepcid in ER. - Hospitalist consulted for admission - Patient admitted to [facility] service for further evaluation and management. ASSESSMENT AND PLAN: Diagnosis: Intractable nausea and vomiting; hypertension; abdominal pain Plan: Admit Past Med/Surg History Problem List (Updated 12/06/24 @ 15:21 by Sneha Gracia MD) Abdominal pain (Acute) Hypertension (Acute) Intractable nausea and vomiting (Acute) Gastroenteritis (Acute) Nausea vomiting and diarrhea (Acute) Non-ST elevation [place] (NSTEMI) (Acute) Nausea & vomiting (Acute) Chest pain (Acute) Diabetes mellitus PRES (posterior reversible encephalopathy syndrome) (Acute) Vertigo (Acute) Cerebellar stroke Occlusion of left iliac artery Marijuana dependence (Acute) Hx-TIA (transient ischemic attack) pt denies Diverticulosis Carpal tunnel syndrome Cervical spondylosis with myelopathy and radiculopathy Vitamin D deficiency Seizure disorder Hypomagnesemia (Acute) Upper gastrointestinal bleed 2021, resolved Cyclic vomiting syndrome no GI pathology on EGD, US, CT of abd/pelvis, celiac testing and GES per 04/2020 GI consult: biliary w/u and upper GI study recommended (upper GI study neg per d/c summary), cannabis cessation, continue Protonix and prn Zofran > currently controlled Peripheral arterial disease Bilateral external iliac artery occlusion with common femoral artery reconstitution-02/2021 aorta with runoff CTA, follows with Dr. Maynard Obstructive sleep apnea mod-severe per PCP records (does not have device) GERD (gastroesophageal reflux disease) Renal artery stenosis following with Dr Maynard HTN (hypertension) (Acute) h/o multiple hypertensive urgency episodes, renal artery stenosis, following with cardiology and vascular surgery Carotid stenosis < 50% stenosis B/L per US 12/16/18 CAD (coronary artery disease) Mild-moderate non-obstructive CAD per 2017 cardiac cath Pulmonary emphysema well controlled per pt Multiple thyroid nodules Hyperlipidemia Anxiety disorder Medical History Hypertensive emergency Hypertensive urgency, malignant Hypertensive urgency Elevated troponin Hypertensive emergency Hypokalemia Hypophosphatemia Tachycardia Postoperative nausea Seizures Hematemesis History of COVID-19 Ischemia of right lower extremity Prediabetes Depression Seizure Proteinuria Cyclic vomiting syndrome Hypercalcemia PRES (posterior reversible encephalopathy syndrome) Cannabinoid hyperemesis syndrome History of diverticulitis of colon Transient cerebrovascular ischemia Cervical disc disorder Takotsubo cardiomyopathy NSTEMI (non-ST elevated myocardial infarction) Surgical History History of anesthesia reaction History of tooth extraction History of cataract surgery Status post surgery S/P aortobifemoral bypass surgery History of esophagogastroduodenoscopy (EGD) H/O cervical spine surgery History of cardiac cath History of ovarian cystectomy History of hernia surgery History of hysterectomy Family History Father Family history of stomach cancer Malignant neoplasm of esophagus Stomach cancer Myocardial infarction Stroke Uncle Throat cancer Family history of cancer Grandmother (Maternal) Bone cancer Breast cancer Mother No problems noted. Brother Lung cancer Other Family history of diabetes mellitus No family history of adverse response to anesthesia No pertinent family history Denies family history of Colon cancer Ovarian cancer Prostate cancer Crohn's disease IBD (inflammatory bowel disease) Social History Smoking Status: Former smoker Tobacco Type: Cigarettes Age Started Using Tobacco: 20; Age Quit Using Tobacco: 49; packs per day: 1.5; Second Hand Exposure: No; Do You Dip or Chew Tobacco: No; Hx Alcohol Use: Yes Alcohol type: beer Hx Substance Use: Yes Last Used Substance: Hours (ago) Last Used Substance Other:: 4 days ago last used. 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 Feels Safe at Home: Yes Childhood Exposure to Second-Hand Smoke: Yes Diet: regular Diet Comment: Regular caffeine: Yes (1 cup of coffee) during the past year weight has: other Dental Care, Regularly: No Physical Activity Frequency: Daily Physical Activity Frequency Comment: walking Seatbelt Use: always Sunscreen Use: Yes Assistive Devices: None Allergies Allergies Allergy/AdvReac Type Severity Reaction Status Date / Time napoles Allergy Intermediate Hives Verified 12/03/24 20:18 (green/hartman beans) doxycycline Allergy Intermediate Hives, Verified 12/03/24 20:18 vomiting Iodinated Contrast Media Allergy Intermediate Large Verified 12/03/24 20:18 hives, vomiting, "feeling hot" iodine Allergy Intermediate Hives, Verified 12/03/24 20:18 vomiting latex Allergy Intermediate Rash Verified 12/03/24 20:18 loperamide Allergy Intermediate Hives, Verified 12/03/24 20:18 vomiting meperidine Allergy Intermediate Hives, Verified 12/03/24 20:18 vomiting strawberry Allergy Intermediate Hives Verified 12/03/24 20:18 tomato Allergy Intermediate Hives Verified 12/03/24 20:18 prochlorperazine Allergy Mild N/V, Verified 12/03/24 20:18 itchiness polyethylene glycol AdvReac Intermediate ELEVATED Verified 12/03/24 20:18 [From Golytely] B/P / VOMITING polyethylene glycol 3350 AdvReac Intermediate ELEVATED Verified 12/03/24 20:18 [From Golytely] B/P / VOMITING potassium chloride AdvReac Intermediate ELEVATED Verified 12/03/24 20:18 [From Golytely] B/P / VOMITING sodium [From Golytely] AdvReac Intermediate ELEVATED Verified 12/03/24 20:18 B/P / VOMITING sodium bicarbonate AdvReac Intermediate ELEVATED Verified 12/03/24 20:18 [From Golytely] B/P / VOMITING sodium chloride AdvReac Intermediate ELEVATED Verified 12/03/24 20:18 [From Golytely] B/P / VOMITING sodium sulfate AdvReac Intermediate ELEVATED Verified 12/03/24 20:18 [From Golytely] B/P / VOMITING Home Meds Home Medications Medication Instructions Recorded Confirmed mecobalamin (vitamin B12) 1,000 1,000 mcg PO QAM 09/30/23 12/03/24 mcg chewable tablet nitroglycerin 0.4 mg sublingual 0.4 mg sublingual UD PRN Chest Pain 06/07/24 12/03/24 tablet metformin 500 mg tablet 500 mg PO QAM 06/13/24 12/03/24 [id number] 8 mg-folic 400 1 tab PO DAILY 06/13/24 12/03/24 mcg-K 50 mcg-lutein 300 mcg tablet (Centrum Silver Women) Previous Rx's Medication Instructions Recorded carvedilol 25 mg tablet 25 mg PO BID #60 tabs 01/01/23 sacubitril 49 mg-valsartan 51 mg 1 tab PO BID #60 tabs 05/28/24 tablet (Entresto) cholecalciferol (vitamin D3) 50 2,000 unit PO HS #90 tabs 06/07/24 mcg (2,000 unit) tablet amitriptyline 25 mg tablet 25 mg PO HS #90 tabs 06/16/24 blood sugar diagnostic (FreeStyle #100 ea 06/17/24 Lite Strips) blood-glucose meter (FreeStyle #1 ea 06/17/24 Lite Meter kit) lancets #100 ea 06/17/24 clopidogrel 75 mg tablet (Plavix) 75 mg PO HS #90 tabs 06/29/24 potassium chloride 20 mEq 20 meq PO DAILY #90 tabs 09/06/24 tablet,extended release ondansetron HCl 4 mg tablet 4 mg PO Q8H PRN nausea and 09/28/24 vomiting #30 tabs tiotropium bromide 1.25 2 puff inhalation DAILY #4 grams 09/28/24 mcg/actuation mist for inhalation (Spiriva Respimat) apixaban 5 mg tablet (Eliquis) 5 mg PO BID #180 tabs 10/11/24 levetiracetam 1,000 mg tablet 1,000 mg PO BID #180 tabs 10/18/24 (Keppra) pantoprazole 40 mg tablet,delayed 40 mg PO DAILY #180 tabs 11/10/24 release rosuvastatin 40 mg tablet (Crestor) 40 mg PO HS #90 tabs 11/10/24 venlafaxine 225 mg tablet,extended 225 mg PO DAILY #90 tabs 11/10/24 release 24 hr Results & Data (ED) Vital Signs Vital Signs - 24 hr 12/06/24 10:10 12/06/24 10:19 12/06/24 10:29 Temperature 36.8 C Temperature Source Oral Pulse Rate 68 78 78 Pulse Rate from SpO2 Sensor Pulse Rhythm Regular Respiratory Rate 16 16 Respiratory Effort / Characteristics Non-Labored Respiratory Depth Normal Respiratory Pattern Regular Blood Pressure 201/121 H Blood Pressure Mean 147 Pulse Oximetry 98 98 Oxygen Delivery Method Room Air Room Air Sepsis Recent Fever Within 48 Hours No Sepsis New/Unexplained Change in Mental Status N/A Sepsis Action Taken by Nursing No Action Required 12/06/24 10:33 12/06/24 11:00 12/06/24 12:03 Temperature Temperature Source Pulse Rate 62 65 62 Pulse Rate from SpO2 Sensor 63 65 60 Pulse Rhythm Respiratory Rate 20 19 20 Respiratory Effort / Characteristics Respiratory Depth Respiratory Pattern Blood Pressure 206/148 H 199/132 H 202/147 H Blood Pressure Mean 167 154 165 Pulse Oximetry 99 97 97 Oxygen Delivery Method Sepsis Recent Fever Within 48 Hours Sepsis New/Unexplained Change in Mental Status Sepsis Action Taken by Nursing 12/06/24 12:30 12/06/24 13:09 12/06/24 13:33 Temperature Temperature Source Pulse Rate 63 71 93 H Pulse Rate from SpO2 Sensor 64 88 Pulse Rhythm Respiratory Rate 12 14 26 H Respiratory Effort / Characteristics Respiratory Depth Respiratory Pattern Blood Pressure 201/137 H 201/123 H 199/120 H Blood Pressure Mean 158 149 146 Pulse Oximetry 98 97 Oxygen Delivery Method Sepsis Recent Fever Within 48 Hours Sepsis New/Unexplained Change in Mental Status Sepsis Action Taken by Nursing 12/06/24 14:03 12/06/24 14:29 12/06/24 15:00 Temperature Temperature Source Pulse Rate 76 83 78 Pulse Rate from SpO2 Sensor 76 83 Pulse Rhythm Respiratory Rate 19 20 Respiratory Effort / Characteristics Respiratory Depth Respiratory Pattern Blood Pressure 191/146 H 192/126 H Blood Pressure Mean 161 157 Pulse Oximetry 98 97 Oxygen Delivery Method Sepsis Recent Fever Within 48 Hours Sepsis New/Unexplained Change in Mental Status Sepsis Action Taken by Nursing Laboratory Data 12/06/24 10:15 12/06/24 10:15 Lab Results 12/06/24 12/06/24 12/06/24 Range/Units 10:15 10:45 13:23 WBC 12.80 H (4.8-10.8) K/ul RBC 5.27 (4.20-5.40) M/uL Hgb 16.4 H (12.0-16.0) g/dl Hct 47.0 (37.0-47.0) % MCV 89.2 (80.0-100.0) fL MCH 31.1 (25.0-34.0) pg MCHC 34.9 (32.0-36.0) g/dL RDW Std Deviation 41.5 (36.4-46.3) fL RDW Coeff of Jose Luis 12.7 (11.5-14.5) % Plt Count 313 (130-400) K/uL MPV 10.5 (9.4-12.4) fL Immature Gran % (Auto) 0.5 % Neut % (Auto) 79.0 % Lymph % (Auto) 14.5 % [place] % (Auto) 4.5 % Eos % (Auto) 0.9 % Baso % (Auto) 0.6 % Neut # (Auto) 10.10 H (1.40-6.50) K/uL Lymph # (Auto) 1.86 (1.20-3.40) K/uL [place] # (Auto) 0.58 (0.11-0.59) K/uL Eos # (Auto) 0.11 (0.00-0.50) K/uL Baso # (Auto) 0.08 (0.00-0.20) K/uL Immature Gran # (Auto) 0.07 (0.01-0.20) K/uL Sodium 135 L (136-145) mmol/L Potassium 3.7 (3.5-5.1) mmol/L Chloride 100 (98-107) mmol/L Carbon Dioxide 27 (21-32) mmol/L Anion Gap 8 (3-11) BUN 28 H (6-23) mg/dl Creatinine 1.01 (0.6-1.2) mg/dl Est Cr Clr Drug Dosing 59.4 ml/min eGFR 64.53 BUN/Creatinine Ratio 27.7 H (10-20) Glucose 170 H (70-99(Fasting)) mg/dl Lactate 1.4 (0.4-2.0) mmol/L Calcium 9.7 (8.6-10.3) mg/dl Magnesium 2.1 (1.7-2.4) mg/dl Total Bilirubin 0.5 (0.2-1.0) mg/dl AST 13 (13-39) U/L ALT 7 (7-52) U/L Alkaline Phosphatase 79 (34-104) U/L Troponin I High Sens 15.9 H (0-14) pg/ml Total Protein 7.5 (6.0-8.3) gm/dl Albumin 4.6 (3.4-5.0) gm/dl Globulin 2.9 (2.5-4.0) gm/dl Albumin/Globulin Ratio 1.6 (0.9-2) Lipase 23 (11-82) U/L Urine Color Yellow Urine Appearance Clear (Clear) Urine pH 6.5 (4.5-7.5) Ur Specific [place] 1.016 (1.000-1.030) Urine Protein 2+ H (Negative) Urine Glucose (UA) Negative (Negative) Urine Ketones Negative (Negative) Urine Blood 3+ H (Negative) Urine Nitrite Negative (Negative) Urine Bilirubin Negative (Negative) Urine Urobilinogen Negative (Negative) Ur Leukocyte Esterase Trace H (Negative) Urine WBC (Auto) 6-10 H (0-5) /hpf Urine RBC (Auto) >20 H (0-2) /hpf U Hyaline Cast (Auto) 0-2 (0-2) /lpf U Epithel Cells (Auto) 0-2 (0-2) /hpf Urine Bacteria (Auto) 2+ H (None Seen) Administered Medications Discontinued Medications Hydralazine HCl (Hydralazine Hcl 20 Mg/Ml Vial) 5 mg IV NOW ONE Stop: 12/06/24 13:42 Last Admin: 12/06/24 13:59 Dose: 5 mg Documented By: JAVIER Sodium Chloride (Nss) 1,000 mls @ 999 mls/hr IV .Q1H1M ONE Stop: 12/06/24 11:29 Last Infusion: 12/06/24 12:38 Dose: Infused Documented By: Admin: 12/06/24 10:48 Dose: 999 mls/hr Documented By: JAVIER Acetaminophen (Ofirmev) 1,000 mg in 100 mls @ 400 mls/hr IV NOW STA Stop: 12/06/24 10:44 Last Infusion: 12/06/24 11:05 Dose: Infused Documented By: Admin: 12/06/24 10:49 Dose: 400 mls/hr Documented By: JAVIER Ondansetron HCl (Ondansetron Inj 2 Mg/Ml 2 Ml Vial) 4 mg IV NOW STA Stop: 12/06/24 10:31 Last Admin: 12/06/24 10:48 Dose: 4 mg Documented By: JAVIER Imaging Data Radiologist's Impression: Gallbladder Ultrasound 12/06/24 10:29 US gallbladder CLINICAL HISTORY: RUQ pain; N/V/D COMPARISON STUDY: CT of the abdomen and pelvis December 03, 2024. FINDINGS: There are no hepatic lesions. There is no biliary ductal dilatation. Several small gallstones are noted. No gallbladder wall thickening. No sonographic Franklin sign was elicited. The pancreatic body is normal. Head and tail are partially obscured. There is no right hydronephrosis. IMPRESSION: 1. Cholelithiasis. No evidence for acute cholecystitis. 2. No biliary ductal dilatation. ACT 112: Negative or not required by law. Electronically signed by: Flynn Shipley M.D. 12/06/2024 11:55 AM Abdomen/Pelvis CT 12/06/24 13:[address] WITHOUT CONTRAST CT DOSE: 1002.88 mGy.cm HISTORY: abd pain; vomiting; hematuria TECHNIQUE: Multiaxial CT images of the abdomen and pelvis were performed without contrast. A dose lowering technique was utilized adhering to the principles of ALARA. COMPARISON STUDY: 12/03/2024 FINDINGS: ABDOMEN: There are a few tiny gallstones without evidence of acute cholecystitis. Liver, spleen, pancreas, and adrenal glands have an unremarkable non-IV contrasted appearance. Kidneys show no hydronephrosis bilaterally. No renal or ureteral calculi seen. There are scattered atherosclerotic calcifications. No abdominal aortic aneurysm. Stable aortobifemoral graft. Pelvis: Stable femoral to femoral bypass graft with stable small amount of fluid adjacent to the graft, left side greater than right. Uterus is absent or extremely diminutive. No adnexal mass seen. Urinary bladder is nondistended. There is sigmoid diverticulosis. No acute diverticulitis. No bowel inflammation or obstruction seen. No free fluid, free air, or abscess. No enlarged adenopathy. Osseous structures: There is lower lumbar degenerative disc disease. IMPRESSION: No acute findings seen. ACT 112: Negative or not required by law. The above report was generated using voice recognition software. It may contain grammatical, syntax or spelling errors. Electronically signed by: Chente Roth M.D. 12/06/2024 2:27 PM Discharge Plan Visit Data Chief Complaint: Illness Stated Complaint: CHEST PAIN, NAUSEA, VOMITING, SOB ED Provider: Sneha Gracia Discharge Problem: Intractable nausea and vomiting, Hypertension, Abdominal pain Condition: Fair Forms Stand Alone Forms: [employer] Prescriptions Prescriptions: No Action amitriptyline 25 mg tablet 25 mg PO HS Qty: 90 1RF (DME) blood-glucose meter [FreeStyle Lite Meter] Kit See Rx Instructions .Route Qty: 1 0RF Rx Instructions: Check blood glucose once per day (DME) FreeStyle Lite Strips Strip See Rx Instructions .Route Qty: 100 0RF Rx Instructions: Use with meter to check BG once per day (DME) lancets Misc See Rx Instructions .Route Qty: 100 0RF Rx Instructions: use with meter to heck BG once per day clopidogrel [Plavix] 75 mg tablet 75 mg PO HS Qty: 90 1RF Patient Comments: PER DR MAYNARD OFFICE, TOLD TO STOP 7 DAYS BEFORE PROCEDURE potassium chloride 20 mEq tablet extended release 20 meq PO DAILY Qty: 90 2RF Eliquis 5 mg tablet 5 mg PO BID Qty: 180 1RF levetiracetam [Keppra] 1,000 mg tablet 1,000 mg PO BID Qty: 180 3RF carvedilol 25 mg tablet 25 mg PO BID Qty: 60 2RF Rx Instructions: must administer with a meal/food nitroglycerin 0.4 mg tablet, sublingual 0.4 mg sublingual UD PRN (Reason: Chest Pain) cholecalciferol (vitamin D3) 50 mcg (2,000 unit) tablet 2,000 unit PO HS Qty: 90 3RF mecobalamin (vitamin B12) 1,000 mcg tablet,chewable 1,000 mcg PO QAM ondansetron HCl 4 mg tablet 4 mg PO Q8H PRN (Reason: nausea and vomiting) Qty: 30 1RF Spiriva Respimat 1.25 mcg/actuation mist 2 puff inhalation DAILY Qty: 4 2RF rosuvastatin [Crestor] 40 mg tablet 40 mg PO HS Qty: 90 3RF pantoprazole 40 mg tablet,delayed release (DR/EC) 40 mg PO DAILY Qty: 180 1RF venlafaxine 225 mg tablet extended release 24hr 225 mg PO DAILY Qty: 90 3RF Entresto 49-51 mg Tablet 1 tab PO BID Qty: 60 0RF metformin 500 mg tablet 500 mg PO QAM Centrum Silver Women 8 mg iron-400 mcg-50 mcg Tablet 1 tab PO DAILY Referrals Referrals: Teena Killian DO [Primary Care Provider] -
--- NOTE | 2024-12-06 11:56 | Ultrasound Report ---
US gallbladder CLINICAL HISTORY: RUQ pain; N/V/D COMPARISON STUDY: CT of the abdomen and pelvis December 03, 2024. FINDINGS: There are no hepatic lesions. There is no biliary ductal dilatation. Several small gallston es are noted. No gallbladder wall thickening. No sonographic Franklin sign was elicited. The pancreatic body is normal. Head and tail are partially obscured. There is no right hydronephrosis. IMPRESSION: 1. Cholelithiasis. No evidence for acute cholecystitis. 2. No biliary ductal dilatation. ACT 112: Negative or not required by law. Electronically signed by: Flynn Shipley M.D. 12/06/2024 11:55 AM
[2024-12-06 13:37] LABS: Appearance Urine Clear (Clear); Bacteria Urine Automated 2+ (None Seen); Bilirubin Urine Negative (Negative); Blood Urine 3+ (Negative); Cast Urine Automated 0-2 /lpf (0-2); Color Urine Yellow; Epithelial Cell Urine Auto 0-2 /hpf (0-2); Glucose Urine UA Negative (Negative); Ketones Urine Negative (Negative); Leukocyte Esterase Urine Trace (Negative); Nitrite Urine Negative (Negative); Protein Urine 2+ (Negative); RBC Urine Automated >20 /hpf (0-2); Specific Gravity Urine 1.016 (1.000-1.030); Urobilinogen Urine Negative (Negative); pH Urine 6.5 (4.5-7.5)
[2024-12-06] MEDS: hydrALAZINE HCL 20 MG/ML VIAL IV ONE (13:59)
--- NOTE | 2024-12-06 14:29 | CT Scan Report ---
ABDOMEN AND PELVIS CT WITHOUT CONTRAST CT DOSE: 1002.88 mGy.cm HISTORY: abd pain; vomiting; hematuria TECHNIQUE: Multiaxial CT images of the abdomen and pelvis were performed without contrast. A dose lo wering technique was utilized adhering to the principles of ALARA. COMPARISON STUDY: 12/03/2024 FINDINGS: ABDOMEN: There are a few tiny gallstones without evidence of acute cholecystitis. Liver, spleen, panc reas, and adrenal glands have an unremarkable non-IV contrasted appearance. Kidneys show no hydroneph rosis bilaterally. No renal or ureteral calculi seen. There are scattered atherosclerotic calcificati ons. No abdominal aortic aneurysm. Stable aortobifemoral graft. Pelvis: Stable femoral to femoral bypass graft with stable small amount of fluid adjacent to the perry t, left side greater than right. Uterus is absent or extremely diminutive. No adnexal mass seen. Urin trace bladder is nondistended. There is sigmoid diverticulosis. No acute diverticulitis. No bowel infla mmation or obstruction seen. No free fluid, free air, or abscess. No enlarged adenopathy. Osseous structures: There is lower lumbar degenerative disc disease. IMPRESSION: No acute findings seen. ACT 112: Negative or not required by law. The above report was generated using voice recognition software. It may contain grammatical, syntax o r spelling errors. Electronically signed by: Chente Roth M.D. 12/06/2024 2:27 PM
[2024-12-06] MEDS: FAMOTIDINE 20MG IV PUSH 20 MG/5 ML SYR IV STA (15:26)
[2024-12-06 16:40] LABS: C Reactive Protein < 0.50 mg/dl (0-0.5)
[2024-12-06] MEDS ORDERED: ONDANSETRON INJ 2 MG/ML 2 ML VIAL IV PRN (20:20)
[2024-12-06] MEDS: AMITRIPTYLINE HCL 25 MG TAB PO SCH (20:41)
[2024-12-06] MEDS: levETIRAcetam 500 MG TAB PO SCH (20:41)
[2024-12-06] MEDS: VALSARTAN/SACUBITRIL 103/97MG TAB PO SCH (20:41)
[2024-12-06] MEDS: carvediloL 25 MG TAB PO SCH (20:41)
[2024-12-06] MEDS: ROSUVASTATIN CALCIUM 20 MG TAB PO SCH (20:41)
[2024-12-06] MEDS: CLOPIDOGREL BISULFATE 75 MG TAB PO SCH (20:41)
[2024-12-06] MEDS: levETIRAcetam 500 MG/5 ML VIAL IV STA (20:48)
[2024-12-06] MEDS: LACTATED RINGER'S 1,000 ML IV SCH (22:37)
--- NOTE | 2024-12-07 04:46 | Electrocardiogram Report ---
Test Reason : Blood Pressure : */* mmHG Vent. Rate : 66 BPM Atrial Rate : 66 BPM P-R Int : 206 ms QRS Dur : 92 ms QT Int : 428 ms P-R-T Axes : 42 -38 61 degrees QTcB Int : 448 ms Normal sinus rhythm with sinus arrhythmia Left axis deviation Abnormal ECG When compared with ECG of 22-Sep-2024 12:23, Nonspecific T wave abnormality no longer evident in Anterior leads Confirmed by Quinten Sanchez ([id number]) on 12/07/2024 4:45:44 AM Referred By: REFERRED SELF Confirmed By: Quinten Sanchez
[2024-12-07 05:26] LABS: Albumin Globulin Ratio 1.5 (0.9-2); Albumin Level 3.7 gm/dl (3.4-5.0); BUN Creatinine Ratio 26.7 (10-20); Bilirubin,Total 0.5 mg/dl (0.2-1.0); Creatinine Clr Calc Pharmacy 79.6 ml/min; Globulin 2.4 gm/dl (2.5-4.0); Phosphorus 2.7 mg/dl (2.5-4.9); Potassium 3.1 mmol/L (3.5-5.1); Total Protein 6.1 gm/dl (6.0-8.3)
[2024-12-07 05:45] LABS: Hematocrit (blood only) 38.7 % (37.0-47.0); Hemoglobin 13.4 g/dl (12.0-16.0); Mean Corpuscular Hemoglobin 30.9 pg (25.0-34.0); Mean Corpuscular Hgb Conc 34.6 g/dL (32.0-36.0); Mean Corpuscular Volume 89.4 fL (80.0-100.0); Mean Platelet Volume 10.5 fL (9.4-12.4); Platelet Count 270 K/uL (130-400); RDW Coefficient of Variation 12.5 % (11.5-14.5); RDW Standard Deviation 41.2 fL (36.4-46.3); Red Blood Count 4.33 M/uL (4.20-5.40); White Blood Count 8.35 K/ul (4.8-10.8)
--- NOTE | 2024-12-07 08:00 | History & Physical Report ---
Date of Service December 06, 2024 Assessment & Plan (1) Abdominal pain: Plan: Patient with abdominal pain with history of cyclic vomiting syndrome in the past. She presented with nausea and vomiting this past friday which may have been viral though could also be marijuan use. will obtain a UDS. billy be NPO will continue PPI. will place on clear liquid diet in AM. will consider GI consult will monitor overnight. (2) Diabetes mellitus: Plan: has been controlled with metformin. (3) Cyclic vomiting syndrome: Plan: Patient had investigative workup with no GI pathology on EGD, US, CT of abd/pelvis, celiac testing and GES per 04/2020 GI consult: biliary w/u and upper GI study recommended (upper GI study neg per d/c summary), cannabis cessation, continue Protonix and prn Zofran > currently controlled (4) Hypertension: Plan: Blood pressure was elevated on admission, received hydralazine. Blood pressure is now low 100s systolically. will monitor. (5) Peripheral arterial disease: Plan: Bilateral external iliac artery occlusion with common femoral artery reconstitution-02/2021 aorta with runoff CTA, follows with Dr. Maynard Admission and Anticipated Discharge Date Admission Date: December 06, 2024 History of Present Illness Chief Complaint: abdominal pain Primary Care Provider: Teena Killian, DO 59 yo female with PMH of cyclic vomiting syndrome, PAD, DMII, HTN, presented to the hospital after having abdominal pain which occurred this AM after taking her morning meds. She reports burning nonradiating epigastric pain that did not improve. She reports having been sick on friday with diarrhea, nausea and vomiting. However this subsided. Patient was back to her normal health over the course of the weekend aside from low appetite. AFter taking her medications, she had abd. pain and nausea and this did not improve after zofran. Allergies Allergy/AdvReac Type Severity Reaction Status Date / Time napoles Allergy Intermediate Hives Verified 12/03/24 20:18 (green/hartman beans) doxycycline Allergy Intermediate Hives, Verified 12/03/24 20:18 vomiting Iodinated Contrast Media Allergy Intermediate Large Verified 12/03/24 20:18 hives, vomiting, "feeling hot" iodine Allergy Intermediate Hives, Verified 12/03/24 20:18 vomiting latex Allergy Intermediate Rash Verified 12/03/24 20:18 loperamide Allergy Intermediate Hives, Verified 12/03/24 20:18 vomiting meperidine Allergy Intermediate Hives, Verified 12/03/24 20:18 vomiting strawberry Allergy Intermediate Hives Verified 12/03/24 20:18 tomato Allergy Intermediate Hives Verified 12/03/24 20:18 prochlorperazine Allergy Mild N/V, Verified 12/03/24 20:18 itchiness polyethylene glycol AdvReac Intermediate ELEVATED Verified 12/03/24 20:18 [From Golytely] B/P / VOMITING polyethylene glycol 3350 AdvReac Intermediate ELEVATED Verified 12/03/24 20:18 [From Golytely] B/P / VOMITING potassium chloride AdvReac Intermediate ELEVATED Verified 12/03/24 20:18 [From Golytely] B/P / VOMITING sodium [From Golytely] AdvReac Intermediate ELEVATED Verified 12/03/24 20:18 B/P / VOMITING sodium bicarbonate AdvReac Intermediate ELEVATED Verified 12/03/24 20:18 [From Golytely] B/P / VOMITING sodium chloride AdvReac Intermediate ELEVATED Verified 12/03/24 20:18 [From Golytely] B/P / VOMITING sodium sulfate AdvReac Intermediate ELEVATED Verified 12/03/24 20:18 [From Golytely] B/P / VOMITING Home Medications Medication Instructions Recorded Confirmed Type carvedilol 25 mg tablet 25 mg PO BID #60 tabs 01/01/23 12/06/24 Rx mecobalamin (vitamin B12) 1,000 1,000 mcg PO QAM 09/30/23 12/06/24 History mcg chewable tablet cholecalciferol (vitamin D3) 50 2,000 unit PO HS #90 tabs 06/07/24 12/06/24 Rx mcg (2,000 unit) tablet nitroglycerin 0.4 mg sublingual 0.4 mg sublingual UD PRN Chest Pain 06/07/24 12/06/24 History tablet metformin 500 mg tablet 500 mg PO QAM 06/13/24 12/06/24 History [id number] 8 mg-folic 400 1 tab PO DAILY 06/13/24 12/06/24 History mcg-K 50 mcg-lutein 300 mcg tablet (Centrum Silver Women) amitriptyline 25 mg tablet 25 mg PO HS #90 tabs 06/16/24 12/06/24 Rx blood sugar diagnostic (FreeStyle #100 ea 06/17/24 12/06/24 Rx Lite Strips) blood-glucose meter (FreeStyle #1 ea 06/17/24 12/06/24 Rx Lite Meter kit) lancets #100 ea 06/17/24 12/06/24 Rx clopidogrel 75 mg tablet (Plavix) 75 mg PO HS #90 tabs 06/29/24 12/06/24 Rx potassium chloride 20 mEq 20 meq PO DAILY #90 tabs 09/06/24 12/06/24 Rx tablet,extended release ondansetron HCl 4 mg tablet 4 mg PO Q8H PRN nausea and 09/28/24 12/06/24 Rx vomiting #30 tabs tiotropium bromide 1.25 2 puff inhalation DAILY #4 grams 09/28/24 12/06/24 Rx mcg/actuation mist for inhalation (Spiriva Respimat) apixaban 5 mg tablet (Eliquis) 5 mg PO BID #180 tabs 10/11/24 12/06/24 Rx levetiracetam 1,000 mg tablet 1,000 mg PO BID #180 tabs 10/18/24 12/06/24 Rx (Keppra) pantoprazole 40 mg tablet,delayed 40 mg PO DAILY #180 tabs 11/10/24 12/06/24 Rx release rosuvastatin 40 mg tablet (Crestor) 40 mg PO HS #90 tabs 11/10/24 12/06/24 Rx venlafaxine 225 mg tablet,extended 225 mg PO DAILY #90 tabs 11/10/24 12/06/24 Rx release 24 hr sacubitril 97 mg-valsartan 103 mg 1 tab PO BID 12/06/24 12/06/24 History tablet (Entresto) Past Med/Surg History Problem List Abdominal pain (Acute) Hypertension (Acute) Intractable nausea and vomiting (Acute) Gastroenteritis (Acute) Nausea vomiting and diarrhea (Acute) Non-ST elevation NC (NSTEMI) (Acute) Nausea & vomiting (Acute) Chest pain (Acute) Diabetes mellitus PRES (posterior reversible encephalopathy syndrome) (Acute) Vertigo (Acute) Cerebellar stroke Occlusion of left iliac artery Marijuana dependence (Acute) Hx-TIA (transient ischemic attack) pt denies Diverticulosis Carpal tunnel syndrome Cervical spondylosis with myelopathy and radiculopathy Vitamin D deficiency Seizure disorder Hypomagnesemia (Acute) Upper gastrointestinal bleed 2021, resolved Cyclic vomiting syndrome no GI pathology on EGD, US, CT of abd/pelvis, celiac testing and GES per 04/2020 GI consult: biliary w/u and upper GI study recommended (upper GI study neg per d/c summary), cannabis cessation, continue Protonix and prn Zofran > currently controlled Peripheral arterial disease Bilateral external iliac artery occlusion with common femoral artery reconstitution-02/2021 aorta with runoff CTA, follows with Dr. Maynard Obstructive sleep apnea mod-severe per PCP records (does not have device) GERD (gastroesophageal reflux disease) Renal artery stenosis following with Dr Maynard HTN (hypertension) (Acute) h/o multiple hypertensive urgency episodes, renal artery stenosis, following with cardiology and vascular surgery Carotid stenosis < 50% stenosis B/L per US 12/16/18 CAD (coronary artery disease) Mild-moderate non-obstructive CAD per 2017 cardiac cath Pulmonary emphysema well controlled per pt Multiple thyroid nodules Hyperlipidemia Anxiety disorder Medical History Acute upper gastrointestinal bleeding Hypertensive urgency, malignant Hypertensive urgency Elevated troponin Hypertensive emergency Hypokalemia Hypophosphatemia Tachycardia Postoperative nausea Seizures 2019 r/t hypertensive emergency > encephalopathy. last seizure 2019 Hematemesis History of COVID-19 03/18/22, [facility], hospitalized day after diagnosis due to vomiting blood, discharged on 03/22/22; fever, vomiting, body chills and aches, diarrhea > resolved currently. Ischemia of right lower extremity Prediabetes diet controlled Depression Seizure Proteinuria Cyclic vomiting syndrome Hypercalcemia PRES (posterior reversible encephalopathy syndrome) has since caused seizures that started in 2018. following with PCP, last seizure per pt 08/2019 per PCP records Cannabinoid hyperemesis syndrome History of diverticulitis of colon Most recent 04/2022 Transient cerebrovascular ischemia Per records, pt unaware Cervical disc disorder Full ROM per pt Takotsubo cardiomyopathy 2017. Admitted [facility], full cardiac workup including cath. EF at the time 40%, now subsequent echos. Follows with Dr. Rodriguez NSTEMI (non-ST elevated myocardial infarction) 2017 Surgical History History of anesthesia reaction Low O2 sats during colonoscopy 04/2022 at [facility] and post-procedure elevated BP. Per post-op anesthesia progress note, O2 96-100% RA and "Pt has increased BP 2ndary to abdominal pain. Pt also has nausea w/ dry heaves. Pt to have CT scan per Dr Patten." History of tooth extraction History of cataract surgery bilat Status post surgery RLE thrombectomy S/P aortobifemoral bypass surgery Sep 2021 [facility] History of esophagogastroduodenoscopy (EGD) H/O cervical spine surgery ACDF C4-7 Dr. [place]: Grade 1 view, Bojorquez#2 and ETT#7.5 atraumatic x 1. No issues per anesthesia postop progress note. ROM WNL History of cardiac cath 2016 > no stents History of ovarian cystectomy History of hernia surgery right inguinal hernia repair History of hysterectomy Family History Father Family history of stomach cancer Malignant neoplasm of esophagus Stomach cancer Myocardial infarction Stroke Uncle Throat cancer Family history of cancer FAMILY HISTORY OF CANCER - UNCLE - VOCAL CORDS FAMILY HISTORY OF CANCER - AUNT - ? KIND Grandmother (Maternal) Bone cancer Breast cancer Mother No problems noted. Brother Lung cancer Other Family history of diabetes mellitus No family history of adverse response to anesthesia No pertinent family history Denies family history of Colon cancer Ovarian cancer Prostate cancer Crohn's disease IBD (inflammatory bowel disease) Social History Smoking Status: Former smoker Tobacco Type: Cigarettes Age Started Using Tobacco: 20; Age Quit Using Tobacco: 49; packs per day: 1.5; Second Hand Exposure: No; Do You Dip or Chew Tobacco: No; Hx Alcohol Use: No Hx Substance Use: Yes Last Used Substance: Just Prior to Arrival Last Used Substance Other:: 4 days ago last used. 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 Beliefs That Will Affect Care: None marital status: Current Living Situation: Significant Other Current Living Situation Comment: with boyfriend current occupational status: employed current occupation: [employer] Other Information That Helps Us Care for You: No Feels Safe at Home: Yes Safety Concerns: Feels Safe At This Time Childhood Exposure to Second-Hand Smoke: Yes Diet: regular Diet Comment: Regular caffeine: Yes (1 cup of coffee) during the past year weight has: other Dental Care, Regularly: No Physical Activity Frequency: Daily Physical Activity Frequency Comment: walking Seatbelt Use: always Sunscreen Use: Yes Assistive Devices: Denture - Upper, Denture - Lower and Glasses Review of Systems Constitutional: no fever and no body aches Eyes: no blind spots Ear, Nose, Mouth, Throat: no ear pain and no tinnitus Respiratory: no cough and no dyspnea Cardiovascular: no chest pain Gastrointestinal: + abdominal pain and + early satiety Genitourinary: no dysuria Musculoskeletal: no back pain Integumentary: no acne Neurologic: no gait abnormality Psychiatric: no behavioral changes Endocrine: no fatigue Hematologic / Lymphatic: no easy bleeding Allergy / Immunological: no GI upset with certain foods Physical Exam Constitutional: WD/WN, vitals as above Eyes: PERRL, conjunctivae normal, anicteric sclerae ENMT: external ear and nose normal, oropharynx normal Neck: trachea midline, no thyromegaly Respiratory: normal respiratory effort, lungs clear to auscultation Cardiovascular: RRR, no murmur, no edema Gastrointestinal (Abdomen): Inspection/Auscultation: + abdomen distended and normal bowel sounds Percussion/Palpation: abdomen nontender and no guarding Musculoskeletal: no cyanosis or clubbing, extremities motor strength 5/5 Skin: no rashes, warm and dry Neurologic: PERRL, EOMI, accommodation nl, no face palsy, no dysarthria Psychiatric: A+Ox3, euthymic affect Lymphatic: no cervical or axillary lymphadenopathy Results & Data Results & Data Vital Signs (Past 12 Hours) Vital Signs Temp Pulse Pulse Pulse Resp BP Pulse Ox 12/07/24 07:30 36.8 C 52 L 13 88/52 L 93 12/07/24 03:37 36.8 C 74 18 96/68 L 98 12/07/24 01:12 77 12/06/24 23:49 36.8 C 75 16 108/77 96 12/06/24 21:41 37.1 C 87 22 109/78 96 12/06/24 20:36 36.7 C 86 17 93/77 L 97 12/06/24 20:35 81 12/06/24 20:33 O2 Del Method O2 Del Method 12/07/24 07:30 Room Air 12/07/24 03:37 Room Air 12/07/24 01:12 12/06/24 23:49 Room Air 12/06/24 21:41 Room Air 12/06/24 20:36 Room Air 12/06/24 20:35 12/06/24 20:33 Room Air PG Care Time/CCT Total # of Minutes Spent Total Time Spent with Patient: Total time spent is greater than 50% in coordination of care (as documented) at patient's floor/unit and/or counseling patient: Coding Level of Care Code 61691 INT INP/OBS CARE 3/75MIN Diagnoses Abdominal pain R10.9 Diabetes mellitus E11.9 Diabetes mellitus complication detail: with other circulatory complications Diabetes mellitus longitudinal float operator insulin use: without residential use Diabetes mellitus type: type 2 Cyclic vomiting syndrome R11.15 Hypertension I10 Peripheral arterial disease I73.9 (2) Diabetes mellitus Diabetes mellitus complication detail: with other circulatory complications Diabetes mellitus residential insulin use: without residential use Diabetes mellitus type: type 2
[2024-12-07] MEDS ORDERED: GLUCOSE 40% GEL 15 GM TUBE PO PRN (08:12)
[2024-12-07] MEDS ORDERED: GLUCAGON FOR INJ 1 MG VIAL SQ PRN (08:12)
[2024-12-07] MEDS ORDERED: CARBOHYDRATES FOR HYPOGLYCEMIA PO PRN (08:12)
[2024-12-07] MEDS ORDERED: GLUCOSE 10 TAB/TUBE PO PRN (08:12)
[2024-12-07] MEDS ORDERED: DEXTROSE 50% 50 ML SYRINGE IV PRN (08:12)
[2024-12-07] MEDS: VENLAFAXINE HCL XR 75 MG CAPXR PO SCH (08:25)
[2024-12-07] MEDS: PANTOprazole 40 MG TAB PO SCH (08:27)
[2024-12-07] MEDS: POTASSIUM CHLORIDE CRTAB 20 MEQ TABCR PO SCH (08:28)
[2024-12-07 10:35] LABS: Amphetamines+Metham, Urine Neg (Neg); Barbiturates, Urine Neg (Neg); Benzodiazepine, Urine Neg (Neg); Cocaine, Urine Neg (Neg); Fentanyl, Urine Neg (Neg); MDMA (Ecstacy), Urine Neg (Neg); Marijuana, Urine Pos (Neg); Methadone, Urine Neg (Neg); Opiate, Urine Neg (Neg); Phencyclidine, Urine Neg (Neg)
[2024-12-07] MEDS: INSULIN ASPART PER UNIT CHARGE SC SCH (11:35)
[2024-12-07 15:55] VITALS: BP 93/74; PULSE 62; RESP 18; TEMP 98.1; O2SAT 95
--- NOTE | 2024-12-07 16:35 | Communication Note ---
Date of Service: December 07, 2024 By CMS guidelines, a determination that the admission or continued stay is not medically necessary has been made by a member of the UR committee and a physicia n for this hospital stay, therefore a Code 44 will be completed and the Inpatient admission will be changed to outpatient.
[2024-12-09 13:27] LABS: Marijuana Quant, GCMS Urine 3320 ng/mL (<5)
--- NOTE | 2024-12-10 10:46 | Discharge Summary ---
Discharge Summary Date of Service December 07, 2024 Principal Dx & Hospital Course #1 = Principal Diagnosis (1) Abdominal pain: Patient with abdominal pain with history of cyclic vomiting syndrome in the past. She presented with nausea and vomiting this past friday which may have been viral though could also be marijuan use. UDS + for marijuana. symptoms improved with supprotive care, now tolerating diet. will resume home meds, however will recommend holding metformin given that this can produce GI symptoms and A!C is controlled. (2) Diabetes mellitus: has been controlled with metformin. Patient alos complaining of orthostatic symptoms. Gave patient instructions for how to limit orthostatic hypotension (3) Cyclic vomiting syndrome: Patient had investigative workup with no GI pathology on EGD, US, CT of abd/pelvis, celiac testing and GES per 04/2020 (4) Hypertension: Blood pressure was elevated on admission, received hydralazine. (5) Peripheral arterial disease: Bilateral external iliac artery occlusion with common femoral artery reconstitution-02/2021 aorta with runoff CTA, follows with Dr. Person Admission HPI Per Admitting Provider 59 yo female with PMH of cyclic vomiting syndrome, PAD, DMII, HTN, presented to the hospital after having abdominal pain which occurred this AM after taking her morning meds. She reports burning nonradiating epigastric pain that did not improve. She reports having been sick on friday with diarrhea, nausea and vomiting. Weber júnior this subsided. Patient was back to her normal health over the course of the weekend aside from low appetite. AFter taking her medications, she had abd. pain and nausea and this did not improve after zofran. Discharge Exam Constitutional WD/WN, vitals as above Eyes PERRL, conjunctivae normal, anicteric sclerae ENMT external ear and nose normal, oropharynx normal Neck trachea midline, no thyromegaly Respiratory normal respiratory effort, lungs clear to auscultation Cardiovascular RRR, no murmur, no edema Gastrointestinal (Abdomen) Inspection/Auscultation: + abdomen distended and normal bowel sounds Percussion/Palpation: abdomen nontender and no guarding Musculoskeletal no cyanosis or clubbing, extremities motor strength 5/5 Skin no rashes, warm and dry Neurologic PERRL, EOMI, accommodation nl, no face palsy, no dysarthria Psychiatric A+Ox3, euthymic affect Lymphatic no cervical or axillary lymphadenopathy Discharge Plan Discharge Items Patient Disposition: Home - Self-Care Reason For Visit: NAUSEA/VOMITING Discharge Diagnosis: cyclic vomiting syndrome Condition on Discharge: Fair Activity: Per Instructions section Non-emergency contact: Primary Care Provider Call non-emergency contact if: you have any medication questions Follow-up/Referrals: Teena Killian DO [Primary Care Provider] - 12/15/24 8:20 am (Scheduled with DARREN Sher) Diet: Carb Consistent or DM2 Addtl Attending Provider Instructions: Preventing Dizziness or Fainting When Standing Up (Orthostatic Hypotension) 1. Get up slowly: When getting out of bed, first sit on the edge for 12 minutes before standing. When standing from a chair, pause for a few seconds before walking. 2. Stay hydrated: Drink plenty of fluids, unless your doctor tells you otherwise. 3. Avoid long periods of standing still: If you must stand, shift your weight or march in place to keep blood moving. 4. Eat small, frequent meals: Large meals can sometimes lower blood pressure, especially in older adults. 5. Avoid hot showers or baths: Heat can lower your blood pressure. Try lukewarm instead. 6. Limit alcohol: It can lower blood pressure and make symptoms worse. 7. Tell your doctor about dizziness or falls: Your medications may need adjusting Recommend followup with PCP in 1-2 weeks. Pending Studies at Discharge: No Stand-Alone Forms: [facility] [employer], Smoking Cessation Medications and DC Order Prescriptions: Continued amitriptyline 25 mg tablet 25 mg PO HS Qty: 90 1RF (DME) blood-glucose meter [FreeStyle Lite Meter] Kit See Rx Instructions .Route Qty: 1 0RF Rx Instructions: Check blood glucose once per day (DME) FreeStyle Lite Strips Strip See Rx Instructions .Route Qty: 100 0RF Rx Instructions: Use with meter to check BG once per day (DME) lancets Misc See Rx Instructions .Route Qty: 100 0RF Rx Instructions: use with meter to heck BG once per day clopidogrel [Plavix] 75 mg tablet 75 mg PO HS Qty: 90 1RF Patient Comments: PER DR PERSON OFFICE, TOLD TO STOP 7 DAYS BEFORE PROCEDURE Eliquis 5 mg tablet 5 mg PO BID Qty: 180 1RF levetiracetam [Keppra] 1,000 mg tablet 1,000 mg PO BID Qty: 180 3RF carvedilol 25 mg tablet 25 mg PO BID Qty: 60 2RF Rx Instructions: must administer with a meal/food nitroglycerin 0.4 mg tablet, sublingual 0.4 mg sublingual UD PRN (Reason: Chest Pain) mecobalamin (vitamin B12) 1,000 mcg tablet,chewable 1,000 mcg PO QAM ondansetron HCl 4 mg tablet 4 mg PO Q8H PRN (Reason: nausea and vomiting) Qty: 30 1RF Spiriva Respimat 1.25 mcg/actuation mist 2 puff inhalation DAILY Qty: 4 2RF rosuvastatin [Crestor] 40 mg tablet 40 mg PO HS Qty: 90 3RF Centrum Silver Women 8 mg iron-400 mcg-50 mcg Tablet 1 tab PO DAILY Entresto 97-103 mg tablet 1 tab PO BID Held metformin 500 mg tablet 500 mg PO QAM Hold Instructions: Provider's Order until seen by PCP Patient Comments: "This is currently on hold until I see PCP. I am scheduled for 12/15/24 but that is the day of my colonoscopy so I am going to call them to see if I should see them sooner or wait until 12/21/24 for follow up after procedure" No Action cholecalciferol (vitamin D3) [Vitamin D3] 125 mcg (5,000 unit) Tablet 125 mcg PO DAILY pantoprazole [Protonix] 40 mg tablet,delayed release (DR/EC) 40 mg PO QAM potassium chloride 20 mEq tablet extended release 20 meq PO QAM Discharge Orders: Discharge Order (Routine); Ordered 12/07/24 Ordered By: Wade Betancourt/Other Patient Handouts: High Blood Sugar (Hyperglycemia), Hypoglycemia (Low Blood Sugar) Admission Data Admit Date/Time: 12/06/24 16:39 Attending Provider: Wade Wills Admit Provider: Wade Wills Primary Care Provider: Teena Killian Other Providers: Souleymane Lobato Other Interventions: Discharge Summary Assessment (RN) Last Done: 12/07/24 15:57 Hospital Stay Data Consultations 12/06/24 15:18 ED Decision to Admit Stat Diagnostic Imagining Performed 12/06/24 10:29 US gallbladder Stat 12/06/24 13:41 CT Abd and Pelvis [CT abd pelvis wo con] Stat Pending Results Patient Have Any Pending Studies at Discharge: No Discharge Instructions Given to Patient (Per Discharging Provider) Preventing Dizziness or Fainting When Standing Up (Orthostatic Hypotension) 1. Get up slowly: When getting out of bed, first sit on the edge for 12 minutes before standing. When standing from a chair, pause for a few seconds before walking. 2. Stay hydrated: Drink plenty of fluids, unless your doctor tells you otherwise. 3. Avoid long periods of standing still: If you must stand, shift your weight or march in place to keep blood moving. 4. Eat small, frequent meals: Large meals can sometimes lower blood pressure, especially in older adults. 5. Avoid hot showers or baths: Heat can lower your blood pressure. Try lukewarm instead. 6. Limit alcohol: It can lower blood pressure and make symptoms worse. 7. Tell your doctor about dizziness or falls: Your medications may need adjusting Recommend followup with PCP in 1-2 weeks. 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
== END 2024-12-07 17:03 | disposition home or self-care (01) ==
LOC: ED 10:10 → INTOOBSV 16:39 → 1E 16:39

== ENCOUNTER 2025-02-08 11:51 | Observation (INO) ==
[2025-02-08 12:27] LABS: Hematocrit (blood only) 45.7 % (37.0-47.0); Hemoglobin 15.3 g/dl (12.0-16.0); Immature Granulocytes # (auto) 0.03 K/uL (0.01-0.20); Immature Granulocytes % (auto) 0.2 %; Mean Corpuscular Hemoglobin 30.6 pg (25.0-34.0); Mean Corpuscular Volume 91.4 fL (80.0-100.0); Platelet Count 300 K/uL (130-400); RDW Standard Deviation 41.8 fL (36.4-46.3); Red Blood Count 5.00 M/uL (4.20-5.40); White Blood Count 12.29 K/ul (4.8-10.8)
--- NOTE | 2025-02-08 12:32 | Emergency Department Note ---
Impression & Plan Cyclic vomiting syndrome, Viral gastroenteritis, Hypertension, uncontrolled ED Provider Note NAME: ONEL MONTOYA AGE: 59 SEX: F : 1965 ARRIVES VIA: Ambulance INFORMANT: Patient, EMS ED PROVIDER(S): Celso Galan DO CHIEF COMPLAINT: chest pain HPI: This is a 59-year-old female with the PMHx of poorly controlled hypertension, REBECCA, DM 2, paroxysmal atrial fibrillation, cyclic vomiting syndrome, hyperlipidemia, CAD, peripheral vascular disease and history of TIA presenting to [facility] for further evaluation of chest pain, abdominal pain and SOB. She states that she has had severe nausea and vomiting since early this morning. Patient reports that she has also had significant diarrhea. She reports multiple liquid bowel movements over the last day. Patient does report a mild headache. Patient states she has been unable to tolerate her medications. Patient states her chest pain and shortness of breath was severe this morning but has improved. She now has significant right sided abdominal pain. She states this is sharp and stabbing. Nothing seems to improve her pain. No medications prior to arrival. She reports significant myalgias and arthralgias associated with her symptoms. They deny fever or chills. No cough or congestion. No urinary complaints. Patient denies recent changes in medications or OTC supplements. Patient offers no other complaints, today. ADDITIONAL HISTORY OBTAINED: Per HPI Chronic Medical/Social Conditions Affecting Care: Per HPI PAST MEDICAL HISTORY: See Below PAST SURGICAL HISTORY: See Below FAMILY HISTORY: See Below SOCIAL HISTORY: See Below HOME MEDICATIONS: See Below ALLERGIES: See Below VITALS: See Below PHYSICAL EXAMINATION: GENERAL: Sitting up in bed, alert, well appearing, well nourished, no distress, non-toxic EYE EXAM: normal conjunctiva. PERRL and EOM's grossly intact. OROPHARYNX: no exudate, no erythema, lips, buccal mucosa, and tongue normal and mucous membranes are Dry NECK: supple, no nuchal rigidity, no adenopathy, non-tender LUNGS: Clear to auscultation. Normal chest wall mechanics HEART: no murmurs, regular rate, regular rhythm ABDOMEN: abdomen soft, significant tenderness to palpation in the right side of abdomen. More significant in the right lower quadrant. There is voluntary guarding. No rebound or rigidity. SKIN: no rashes and no bruising UPPER EXTREMITIES: upper extremities are grossly normal. LOWER EXTREMITIES: No pitting edema. NEURO EXAM: Normal sensorium, cranial nerves II-XII grossly intact, normal speech, no gross weakness of arms, no gross weakness of legs. No drift. Finger to nose intact. Gross sensation intact. MEDICAL DECISION MAKING: Differential diagnosis includes but not limited to ACS, dysrhythmia, electrolyte derangements, dehydration, cyclic vomiting syndrome, CVA, pneumothorax, pneumonia, pleural effusion, dissection, CHF, appendicitis, bowel obstruction, colitis, gastroenteritis, viral illness, hepatobiliary pathology, pancreatitis, UTI In summary, this is a 59-year-old presenting for multiple complaints. Triage and nursing notes reviewed. Patient is hypertensive but otherwise afebrile and hemodynamically stable. Diagnostics interpreted by me include EKG and cardiac monitoring as listed below: -Cardiac Monitoring: An order was placed for continuous cardiac monitoring. The monitor shows a rate of 60-70s with regular rhythm. -ECG: EKG independently interpreted by me reveals normal sinus rhythm at a ventricular rate of [address] segment changes stress STEMI. Intervals are within normal limits. History provided by the patient includes ongoing symptoms over the last day that seem to be mostly gastrointestinal rather than cardiovascular or pulmonary in etiology. Physical examination reveals neurovascularly intact exam and have no concerns for intracranial pathology at this time. The patient does have significant abdominal tenderness to palpation in the setting of significant nausea and vomiting. Given history and presentation, I do suspect that she could have acute intra-abdominal pathology. Doubt ACS or dysrhythmia at this time. Will plan for cardiac workup as well as imaging for her abdomen and labs. The patient symptoms are not consistent with angina. Her chest pain or shortness of breath is since resolved. She is more still having GI complaints. She reports nausea, vomiting, diarrhea and right lower quadrant abdominal tenderness. Patient is tender with rebound on exam. Plan for CT abdomen/pelvis. Does have contrast allergy appears to be the iodine. Patient states she normally gets Benadryl prior to CAT scan and tolerates it well. Will give the patient steroids and Benadryl with 1 hour prep and plan for CT abdomen/pelvis. Will provide antiemetics, pain control and IV fluid resuscitation while awaiting further workup. I reevaluated the patient. Patient still having significant nausea and vomiting. Given an additional dose of Zofran. Patient still hypertensive. Do believe this is likely related to her pain as well as nausea and vomiting. She is hypertensive at baseline. Will provide IV hydralazine. Patient was not able to take her home antihypertensives today secondary to all her emesis. Patient reports she is now having further myalgias and arthralgias. Will give a dose of IV morphine. I independently reviewed the patient's CT abdomen/pelvis that showed really no acute findings. She does have some cholelithiasis. Given some right-sided abdominal tenderness and cholelithiasis, will obtain a right upper quadrant ultrasound further evaluation of acute cholecystitis. Do not believe that she has angina. On multiple reevaluations, the patient is still struggling with significant pain, nausea and vomiting. I do believe she likely has a viral illness. Lab work is been reassuring. No significant electrolyte derangements. Patient's EKG is stable. 2 negative troponins. Patient's imaging has been unremarkable besides cholelithiasis. Patient continues to struggle to tolerate p.o. intake. Given her resistant hypertension despite multiple medications in the emergency department as well as ongoing pain, nausea and vomiting, I will touch base with the hospitalist team for admission. I did offer the patient outpatient follow- up and discharge with antiemetics. Patient is very nervous about going home. She states her symptoms are not really improved and she can barely tolerate anything by mouth. She worries that she will worsen at home. Patient is requesting admission. I told her that this would likely be observation. She is agreeable to this. Patient was discussed with Dr. Hager and he accepted for admission. Following admission, the patient began to have significant vomiting. Her blood pressure is better controlled on reevaluation. The Reglan and further IV fluid resuscitation ordered. I confirmed again with the patient that she uses medical marijuana. I discussed with her that I do believe she likely has a viral illness but this could be complicated by cannabinoid hyperemesis syndrome. She does acknowledge this. Will trial topical capsaicin as well while in the emergency department. Patient verbalized understanding and agreement to the treatment plan. I updated her on results and admission. The patient is agreeable to this. Patient admitted in stable condition. Consults/Care Managements Discussions: Per [facility] ER treatment provided: See above Procedures:none Critical Care: None Past Med/Surg History Problem List (Updated 02/08/25 @ 17:41 by Celso Galan DO) Hypertension, uncontrolled (Acute) Viral gastroenteritis (Acute) Cyclic vomiting syndrome (Acute) Obstructive sleep apnea no device d/t recall - to have sleep study 01/18/25 Weight loss Chronic diarrhea Gastroenteritis (Acute) Nausea vomiting and diarrhea (Acute) Non-ST elevation ND (NSTEMI) (Acute) Diabetes mellitus Occlusion of left iliac artery Seizure disorder Upper gastrointestinal bleed 2021, resolved Peripheral arterial disease Bilateral external iliac artery occlusion with common femoral artery reconstitution-02/2021 aorta with runoff CTA, follows with Dr. Maynard Cyclic vomiting syndrome no GI pathology on EGD, US, CT of abd/pelvis, celiac testing and GES per 04/2020 GI consult: biliary w/u and upper GI study recommended (upper GI study neg per d/c summary), cannabis cessation, continue Protonix and prn Zofran > currently controlled GERD (gastroesophageal reflux disease) Renal artery stenosis following with Dr Maynard Vitamin D deficiency HTN (hypertension) (Acute) h/o multiple hypertensive urgency episodes, renal artery stenosis, following with cardiology and vascular surgery Cervical spondylosis with myelopathy and radiculopathy Carpal tunnel syndrome Anxiety disorder Hyperlipidemia Multiple thyroid nodules Pulmonary emphysema well controlled per pt Hx-TIA (transient ischemic attack) pt denies CAD (coronary artery disease) Mild-moderate non-obstructive CAD per 2017 cardiac cath Carotid stenosis < 50% stenosis B/L per US 12/16/18 Marijuana dependence (Acute) Medical History Vertigo Cerebellar stroke Obstructive sleep apnea mod-severe per PCP records (does not have device) Diverticulosis Difficult intravenous access Pulmonary emphysema controlled as per patient - quit tobacco use Renal artery stenosis s/p multiple vascular surgeries with Dr Maynard Intractable nausea and vomiting recently to [facility] 12/03/24 and 12/06/24 History of hypertensive crisis Multiple - Dr Rodriguez Cardiology Gastroenteritis Diabetes mellitus, type 2 Oral - currently on hold History of chest pain recently took nitro 12/03/24 went to [facility] ER - pt denies at this time History of stroke 2022? followed with [facility] in past no longer with a neurologist - no residuals - Abdominal pain recently seen in [facility] 12/03/24 & 12/06/24 Decreased appetite as per patient since 07/2024 until 12/2024 went from 208lbs to 160lbs Unintentional weight loss as per patient since 07/2024 until 12/2024 went from 208lbs to 160lbs History of recent hospitalization 12/03/24 & 12/06/24 [facility] for abdominal pain, nausea, vomiting. Acute upper gastrointestinal bleeding hx - pt denies at this time Elevated troponin Hypokalemia Hypophosphatemia Tachycardia Postoperative nausea Seizures 2019 r/t hypertensive emergency > encephalopathy. last seizure 2019 - tonja mace neurologist Hematemesis hx - pt denies any issues currently History of COVID-19 03/18/22, p[facility], hospitalized day after diagnosis due to vomiting blood, discharged on 03/22/22; fever, vomiting, body chills and aches, diarrhea > resolved currently. Ischemia of right lower extremity Depression Proteinuria Cyclic vomiting syndrome still uses medical marijuana Hypercalcemia PRES (posterior reversible encephalopathy syndrome) has since caused seizures that started in 2018. following with PCP, last seizure per pt 08/2019 per PCP records Cannabinoid hyperemesis syndrome History of diverticulitis of colon Most recent 04/2022 - just had CT Abd/Pelvis at [facility] 12/2024 - nothing notated Transient cerebrovascular ischemia possibly 2022? patient unsure of when - did follow up with [facility] Neurology, no longer does - no residuals Cervical disc disorder Full ROM per pt Takotsubo cardiomyopathy 2017. Admitted [facility], full cardiac workup including cath. EF at the time 40%, now subsequent echos. Follows with Dr. Rodriguez NSTEMI (non-ST elevated myocardial infarction) 2017 - no stents - Dr Rodriguez Cardiology "I had a couple" as per patient Surgical History History of colonoscopy History of vascular surgery (09/2022) Right Fem to Left Fem Bypass History of anesthesia reaction Low O2 sats during colonoscopy 04/2022 at [facility] and post-procedure elevated BP. Per post-op anesthesia progress note, O2 96-100% RA and "Pt has increased BP 2ndary to abdominal pain. Pt also has nausea w/ dry heaves. Pt to have CT scan per Dr Patten." History of tooth extraction Upper/Lower Dentures History of cataract surgery bilateral Status post surgery (09/2021) RLE thrombectomy S/P aortobifemoral bypass surgery Sep 2021 [facility] History of esophagogastroduodenoscopy (EGD) H/O cervical spine surgery ACDF C4-7 Dr. Wells: Grade 1 view, Bojorquez#2 and ETT#7.5 atraumatic x 1. No issues per anesthesia postop progress note. ROM WNL History of cardiac cath 2017 > no stents - Dr Rodriguez Cardiology History of ovarian cystectomy History of hernia surgery right inguinal hernia repair History of hysterectomy Family History Father Family history of stomach cancer Malignant neoplasm of esophagus Stomach cancer Myocardial infarction Stroke Uncle Throat cancer Family history of cancer FAMILY HISTORY OF CANCER - UNCLE - VOCAL CORDS FAMILY HISTORY OF CANCER - AUNT - ? KIND Grandmother (Maternal) Bone cancer Breast cancer Mother No problems noted. Brother Lung cancer Other Family history of diabetes mellitus No family history of adverse response to anesthesia No pertinent family history Denies family history of Colon cancer Ovarian cancer Prostate cancer Crohn's disease IBD (inflammatory bowel disease) Social History Smoking Status: Never smoker Tobacco Type: Cigarettes Age Started Using Tobacco: 20; Age Quit Using Tobacco: 49; packs per day: 1.5; Second Hand Exposure: No; Do You Dip or Chew Tobacco: No; Hx Alcohol Use: No Hx Substance Use: Yes Last Used Substance: Unknown Last Used Substance Other:: Advised Substance Use Type Other:: Medical Marijuana Flower Preferred Language: Serbian Communication Ability: Effective Visual Impairment: No Limitations Hearing Ability: Normal Behavioral Health Director Required: Yes Beliefs That Will Affect Care: None marital status: Current Living Situation: Significant Other Current Living Situation Comment: with boyfriend current occupational status: employed 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 Feels Safe at Home: Yes Childhood Exposure to Second-Hand Smoke: Yes Diet: regular Diet Comment: Regular caffeine: Yes (1 cup of coffee) during the past year weight has: other Dental Care, Regularly: No Physical Activity Frequency: Daily Physical Activity Frequency Comment: walking Seatbelt Use: always Sunscreen Use: Yes Assistive Devices: Denture - Upper, Denture - Lower and Glasses Allergies Allergies Allergy/AdvReac Type Severity Reaction Status Date / Time napoles Allergy Intermediate Hives Verified 02/08/25 16:01 (green/hartman beans) broccoli Allergy Intermediate Bruising Verified 02/08/25 16:01 doxycycline Allergy Intermediate Hives, Verified 02/08/25 16:01 vomiting Iodinated Contrast Media Allergy Intermediate Large Verified 02/08/25 16:01 hives, vomiting, "feeling hot" iodine Allergy Intermediate Hives, Verified 02/08/25 16:01 vomiting latex Allergy Intermediate Rash Verified 02/08/25 16:01 loperamide Allergy Intermediate Hives, Verified 02/08/25 16:01 vomiting meperidine Allergy Intermediate Hives, Verified 02/08/25 16:01 vomiting strawberry Allergy Intermediate Hives Verified 02/08/25 16:01 tomato Allergy Intermediate Hives Verified 02/08/25 16:01 prochlorperazine Allergy Mild Nausea, Verified 02/08/25 16:01 vomiting, itchiness polyethylene glycol AdvReac Intermediate Elevated Verified 02/08/25 16:01 [From Golytely] BP/Vomiting polyethylene glycol 3350 AdvReac Intermediate Elevated Verified 02/08/25 16:01 [From Golytely] BP/Vomiting potassium chloride AdvReac Intermediate Elevated Verified 02/08/25 16:01 [From Golytely] BP/Vomiting sodium [From Golytely] AdvReac Intermediate Elevated Verified 02/08/25 16:01 BP/Vomiting sodium bicarbonate AdvReac Intermediate Elevated Verified 02/08/25 16:01 [From Golytely] BP/Vomiting sodium chloride AdvReac Intermediate Elevated Verified 02/08/25 16:01 [From Golytely] BP/Vomiting sodium sulfate AdvReac Intermediate Elevated Verified 02/08/25 16:01 [From Golytely] BP/Vomiting Home Meds Home Medications Medication Instructions Recorded Confirmed nitroglycerin 0.4 mg sublingual 0.4 mg sublingual UD PRN Chest Pain 06/07/24 02/08/25 tablet sacubitril 97 mg-valsartan 103 mg 1 tab PO BID 12/06/24 02/08/25 tablet (Entresto) cholecalciferol (vitamin D3) 125 125 mcg PO DAILY 12/08/24 02/08/25 mcg (5,000 unit) tablet (Vitamin D3) potassium chloride 20 mEq 20 meq PO QAM 12/08/24 02/08/25 tablet,extended release Previous Rx's Medication Instructions Recorded carvedilol 25 mg tablet 25 mg PO BID #60 tabs 01/01/23 blood sugar diagnostic (FreeStyle #100 ea 06/17/24 Lite Strips) blood-glucose meter (FreeStyle #1 ea 06/17/24 Lite Meter kit) lancets #100 ea 06/17/24 apixaban 5 mg tablet (Eliquis) 5 mg PO BID #180 tabs 10/11/24 levetiracetam 1,000 mg tablet 1,000 mg PO BID #180 tabs 10/18/24 (Keppra) rosuvastatin 40 mg tablet (Crestor) 40 mg PO HS #90 tabs 11/10/24 amitriptyline 25 mg tablet 25 mg PO HS #90 tabs 12/20/24 venlafaxine 150 mg 150 mg PO DAILY #90 caps 01/03/25 capsule,extended release 24 hr venlafaxine 75 mg capsule,extended 75 mg PO DAILY #90 caps 01/03/25 release 24 hr clopidogrel 75 mg tablet (Plavix) 75 mg PO HS #90 tabs 01/04/25 Results & Data (ED) Vital Signs Vital Signs - 24 hr 02/08/25 11:41 02/08/25 11:58 02/08/25 12:15 Temperature 36.7 C Temperature Source Oral Pulse Rate 70 68 Pulse Rate from SpO2 Sensor 66 Respiratory Rate 15 9 L Respiratory Effort / Characteristics Non-Labored Spontaneous Respiratory Depth Normal Respiratory Pattern Regular Blood Pressure 167/112 H Blood Pressure Mean 130 Pulse Oximetry 99 97 97 Oxygen Delivery Method Room Air Room Air Sepsis Recent Fever Within 48 Hours No Sepsis New/Unexplained Change in Mental Status N/A Sepsis Action Taken by Nursing No Action Required 02/08/25 12:17 02/08/25 12:17 02/08/25 12:17 Temperature Temperature Source Pulse Rate Pulse Rate from SpO2 Sensor Respiratory Rate Respiratory Effort / Characteristics Respiratory Depth Respiratory Pattern Blood Pressure 206/114 H 206/114 H 206/114 H Blood Pressure Mean 159 159 159 Pulse Oximetry Oxygen Delivery Method Sepsis Recent Fever Within 48 Hours Sepsis New/Unexplained Change in Mental Status Sepsis Action Taken by Nursing 02/08/25 12:17 02/08/25 12:30 02/08/25 12:30 Temperature Temperature Source Pulse Rate Pulse Rate from SpO2 Sensor Respiratory Rate Respiratory Effort / Characteristics Respiratory Depth Respiratory Pattern Blood Pressure 206/114 H 194/113 H 194/113 H Blood Pressure Mean 159 146 146 Pulse Oximetry Oxygen Delivery Method Sepsis Recent Fever Within 48 Hours Sepsis New/Unexplained Change in Mental Status Sepsis Action Taken by Nursing 02/08/25 12:30 02/08/25 12:30 02/08/25 12:30 Temperature Temperature Source Pulse Rate 70 Pulse Rate from SpO2 Sensor 67 Respiratory Rate 8 L Respiratory Effort / Characteristics Respiratory Depth Respiratory Pattern Blood Pressure 194/113 H 194/113 H Blood Pressure Mean 146 146 Pulse Oximetry 97 Oxygen Delivery Method Sepsis Recent Fever Within 48 Hours Sepsis New/Unexplained Change in Mental Status Sepsis Action Taken by Nursing 02/08/25 12:42 02/08/25 12:54 02/08/25 13:00 Temperature Temperature Source Pulse Rate 84 83 Pulse Rate from SpO2 Sensor 83 79 Respiratory Rate 9 L 9 L Respiratory Effort / Characteristics Respiratory Depth Respiratory Pattern Blood Pressure 199/123 H Blood Pressure Mean 159 Pulse Oximetry 99 98 Oxygen Delivery Method Sepsis Recent Fever Within 48 Hours Sepsis New/Unexplained Change in Mental Status Sepsis Action Taken by Nursing 02/08/25 13:00 02/08/25 13:03 02/08/25 13:12 Temperature Temperature Source Pulse Rate 79 89 Pulse Rate from SpO2 Sensor 79 87 Respiratory Rate 10 L 8 L Respiratory Effort / Characteristics Respiratory Depth Respiratory Pattern Blood Pressure 199/123 H Blood Pressure Mean 159 Pulse Oximetry 99 100 Oxygen Delivery Method Sepsis Recent Fever Within 48 Hours Sepsis New/Unexplained Change in Mental Status Sepsis Action Taken by Nursing 02/08/25 13:51 02/08/25 13:51 02/08/25 13:54 Temperature Temperature Source Pulse Rate 65 93 H 90 Pulse Rate from SpO2 Sensor 94 H 92 H Respiratory Rate 15 13 Respiratory Effort / Characteristics Respiratory Depth Respiratory Pattern Blood Pressure Blood Pressure Mean Pulse Oximetry 98 98 Oxygen Delivery Method Sepsis Recent Fever Within 48 Hours Sepsis New/Unexplained Change in Mental Status Sepsis Action Taken by Nursing 02/08/25 14:01 02/08/25 14:03 02/08/25 14:05 Temperature Temperature Source Pulse Rate 94 H Pulse Rate from SpO2 Sensor Respiratory Rate Respiratory Effort / Characteristics Respiratory Depth Respiratory Pattern Blood Pressure 200/119 H 169/128 H Blood Pressure Mean 173 140 Pulse Oximetry Oxygen Delivery Method Sepsis Recent Fever Within 48 Hours Sepsis New/Unexplained Change in Mental Status Sepsis Action Taken by Nursing 02/08/25 14:05 02/08/25 14:15 02/08/25 14:30 Temperature Temperature Source Pulse Rate 92 H 78 Pulse Rate from SpO2 Sensor 86 78 Respiratory Rate 12 Respiratory Effort / Characteristics Respiratory Depth Respiratory Pattern Blood Pressure 169/128 H Blood Pressure Mean 140 Pulse Oximetry 99 97 Oxygen Delivery Method Sepsis Recent Fever Within 48 Hours Sepsis New/Unexplained Change in Mental Status Sepsis Action Taken by Nursing 02/08/25 14:30 02/08/25 14:30 02/08/25 14:30 Temperature Temperature Source Pulse Rate Pulse Rate from SpO2 Sensor Respiratory Rate Respiratory Effort / Characteristics Respiratory Depth Respiratory Pattern Blood Pressure 193/122 H 193/122 H 193/122 H Blood Pressure Mean 149 149 149 Pulse Oximetry Oxygen Delivery Method Sepsis Recent Fever Within 48 Hours Sepsis New/Unexplained Change in Mental Status Sepsis Action Taken by Nursing 02/08/25 14:30 02/08/25 14:30 02/08/25 14:30 Temperature Temperature Source Pulse Rate Pulse Rate from SpO2 Sensor Respiratory Rate Respiratory Effort / Characteristics Respiratory Depth Respiratory Pattern Blood Pressure 193/122 H 193/122 H 193/122 H Blood Pressure Mean 149 149 149 Pulse Oximetry Oxygen Delivery Method Sepsis Recent Fever Within 48 Hours Sepsis New/Unexplained Change in Mental Status Sepsis Action Taken by Nursing 02/08/25 14:30 02/08/25 14:30 02/08/25 14:30 Temperature Temperature Source Pulse Rate Pulse Rate from SpO2 Sensor Respiratory Rate Respiratory Effort / Characteristics Respiratory Depth Respiratory Pattern Blood Pressure 193/122 H 193/122 H 193/122 H Blood Pressure Mean 149 149 149 Pulse Oximetry Oxygen Delivery Method Sepsis Recent Fever Within 48 Hours Sepsis New/Unexplained Change in Mental Status Sepsis Action Taken by Nursing 02/08/25 14:30 02/08/25 14:30 02/08/25 14:30 Temperature Temperature Source Pulse Rate Pulse Rate from SpO2 Sensor Respiratory Rate Respiratory Effort / Characteristics Respiratory Depth Respiratory Pattern Blood Pressure 193/122 H 193/122 H 193/122 H Blood Pressure Mean 149 149 149 Pulse Oximetry Oxygen Delivery Method Sepsis Recent Fever Within 48 Hours Sepsis New/Unexplained Change in Mental Status Sepsis Action Taken by Nursing 02/08/25 14:33 02/08/25 14:50 02/08/25 14:50 Temperature Temperature Source Pulse Rate 93 H Pulse Rate from SpO2 Sensor 90 Respiratory Rate 7 L Respiratory Effort / Characteristics Respiratory Depth Respiratory Pattern Blood Pressure 190/119 H 190/119 H Blood Pressure Mean 151 151 Pulse Oximetry 99 Oxygen Delivery Method Sepsis Recent Fever Within 48 Hours Sepsis New/Unexplained Change in Mental Status Sepsis Action Taken by Nursing 02/08/25 14:50 02/08/25 14:51 02/08/25 14:54 Temperature Temperature Source Pulse Rate 83 80 Pulse Rate from SpO2 Sensor 87 82 Respiratory Rate 16 13 Respiratory Effort / Characteristics Respiratory Depth Respiratory Pattern Blood Pressure 190/119 H Blood Pressure Mean 151 Pulse Oximetry 97 97 Oxygen Delivery Method Sepsis Recent Fever Within 48 Hours Sepsis New/Unexplained Change in Mental Status Sepsis Action Taken by Nursing 02/08/25 15:00 02/08/25 15:00 02/08/25 15:00 Temperature Temperature Source Pulse Rate Pulse Rate from SpO2 Sensor Respiratory Rate Respiratory Effort / Characteristics Respiratory Depth Respiratory Pattern Blood Pressure 210/143 H 210/143 H 210/143 H Blood Pressure Mean 175 175 175 Pulse Oximetry Oxygen Delivery Method Sepsis Recent Fever Within 48 Hours Sepsis New/Unexplained Change in Mental Status Sepsis Action Taken by Nursing 02/08/25 15:00 02/08/25 15:03 02/08/25 15:24 Temperature Temperature Source Pulse Rate 92 H 85 Pulse Rate from SpO2 Sensor 92 H 88 Respiratory Rate 14 7 L Respiratory Effort / Characteristics Respiratory Depth Respiratory Pattern Blood Pressure 210/143 H Blood Pressure Mean 175 Pulse Oximetry 97 95 Oxygen Delivery Method Sepsis Recent Fever Within 48 Hours Sepsis New/Unexplained Change in Mental Status Sepsis Action Taken by Nursing 02/08/25 15:30 02/08/25 15:30 02/08/25 15:33 Temperature Temperature Source Pulse Rate 90 Pulse Rate from SpO2 Sensor 91 H Respiratory Rate 15 Respiratory Effort / Characteristics Respiratory Depth Respiratory Pattern Blood Pressure 201/130 H 201/130 H Blood Pressure Mean 167 167 Pulse Oximetry 95 Oxygen Delivery Method Sepsis Recent Fever Within 48 Hours Sepsis New/Unexplained Change in Mental Status Sepsis Action Taken by Nursing 02/08/25 16:21 02/08/25 16:23 02/08/25 16:24 Temperature Temperature Source Pulse Rate 80 69 87 Pulse Rate from SpO2 Sensor Respiratory Rate 11 L 18 Respiratory Effort / Characteristics Respiratory Depth Respiratory Pattern Blood Pressure 196/124 H Blood Pressure Mean Pulse Oximetry Oxygen Delivery Method Sepsis Recent Fever Within 48 Hours Sepsis New/Unexplained Change in Mental Status Sepsis Action Taken by Nursing 02/08/25 16:24 02/08/25 16:24 02/08/25 16:24 Temperature Temperature Source Pulse Rate Pulse Rate from SpO2 Sensor Respiratory Rate Respiratory Effort / Characteristics Respiratory Depth Respiratory Pattern Blood Pressure 196/124 H 196/124 H 196/124 H Blood Pressure Mean 146 146 146 Pulse Oximetry Oxygen Delivery Method Sepsis Recent Fever Within 48 Hours Sepsis New/Unexplained Change in Mental Status Sepsis Action Taken by Nursing 02/08/25 16:24 02/08/25 16:25 02/08/25 16:27 Temperature Temperature Source Pulse Rate 74 88 Pulse Rate from SpO2 Sensor Respiratory Rate 19 Respiratory Effort / Characteristics Respiratory Depth Respiratory Pattern Blood Pressure 196/124 H Blood Pressure Mean 146 Pulse Oximetry Oxygen Delivery Method Sepsis Recent Fever Within 48 Hours Sepsis New/Unexplained Change in Mental Status Sepsis Action Taken by Nursing 02/08/25 16:30 02/08/25 16:30 02/08/25 16:30 Temperature Temperature Source Pulse Rate Pulse Rate from SpO2 Sensor Respiratory Rate Respiratory Effort / Characteristics Respiratory Depth Respiratory Pattern Blood Pressure 173/123 H 173/123 H 173/123 H Blood Pressure Mean 143 143 143 Pulse Oximetry Oxygen Delivery Method Sepsis Recent Fever Within 48 Hours Sepsis New/Unexplained Change in Mental Status Sepsis Action Taken by Nursing 02/08/25 16:30 02/08/25 16:33 02/08/25 16:45 Temperature Temperature Source Pulse Rate 85 83 Pulse Rate from SpO2 Sensor Respiratory Rate 8 L 9 L Respiratory Effort / Characteristics Respiratory Depth Respiratory Pattern Blood Pressure 173/123 H Blood Pressure Mean 143 Pulse Oximetry Oxygen Delivery Method Sepsis Recent Fever Within 48 Hours Sepsis New/Unexplained Change in Mental Status Sepsis Action Taken by Nursing 02/08/25 17:00 02/08/25 17:03 02/08/25 17:12 Temperature Temperature Source Pulse Rate 85 84 Pulse Rate from SpO2 Sensor Respiratory Rate 9 L 15 Respiratory Effort / Characteristics Respiratory Depth Respiratory Pattern Blood Pressure 192/129 H Blood Pressure Mean 149 Pulse Oximetry Oxygen Delivery Method Sepsis Recent Fever Within 48 Hours Sepsis New/Unexplained Change in Mental Status Sepsis Action Taken by Nursing Laboratory Data 02/08/25 12:11 02/08/25 12:11 Lab Results 02/08/25 02/08/25 02/08/25 Range/Units 12:11 15:47 Unknown WBC 12.29 H (4.8-10.8) K/ul RBC 5.00 (4.20-5.40) M/uL Hgb 15.3 (12.0-16.0) g/dl Hct 45.7 (37.0-47.0) % MCV 91.4 (80.0-100.0) fL MCH 30.6 (25.0-34.0) pg MCHC 33.5 (32.0-36.0) g/dL RDW Std Deviation 41.8 (36.4-46.3) fL RDW Coeff of Jose Luis 12.7 (11.5-14.5) % Plt Count 300 (130-400) K/uL MPV 9.9 (9.4-12.4) fL Immature Gran % (Auto) 0.2 % Neut % (Auto) 84.5 % Lymph % (Auto) 10.8 % [place] % (Auto) 3.3 % Eos % (Auto) 0.4 % Baso % (Auto) 0.8 % Neut # (Auto) 10.37 H (1.40-6.50) K/uL Lymph # (Auto) 1.33 (1.20-3.40) K/uL [place] # (Auto) 0.41 (0.11-0.59) K/uL Eos # (Auto) 0.05 (0.00-0.50) K/uL Baso # (Auto) 0.10 (0.00-0.20) K/uL Immature Gran # (Auto) 0.03 (0.01-0.20) K/uL Sodium 141 (136-145) mmol/L Potassium 3.9 (3.5-5.1) mmol/L Chloride 108 H (98-107) mmol/L Carbon Dioxide 23 (21-32) mmol/L Anion Gap 10 (3-11) BUN 13 (6-23) mg/dl Creatinine 0.77 (0.6-1.2) mg/dl Est Cr Clr Drug Dosing Not Reportable eGFR 89.36 BUN/Creatinine Ratio 16.9 (10-20) Glucose 207 H (70-99(Fasting)) mg/dl Calcium 10.0 (8.6-10.3) mg/dl Total Bilirubin 0.4 (0.2-1.0) mg/dl AST 16 (13-39) U/L ALT 10 (7-52) U/L Alkaline Phosphatase 74 (34-104) U/L Troponin I High Sens 7.2 7.6 (0-14) pg/ml C-Reactive Protein < 0.50 (0-0.5) mg/dl Total Protein 7.8 (6.0-8.3) gm/dl Albumin 4.5 (3.4-5.0) gm/dl Globulin 3.3 (2.5-4.0) gm/dl Albumin/Globulin Ratio 1.4 (0.9-2) Lipase 19 (11-82) U/L HCG, Qual Negative (Negative) Urine Color Yellow Urine Appearance Clear (Clear) Urine pH >= 9.0 H (4.5-7.5) Ur Specific [place] 1.013 (1.000-1.030) Urine Protein 3+ H (Negative) Urine Glucose (UA) Negative (Negative) Urine Ketones Negative (Negative) Urine Blood 2+ H (Negative) Urine Nitrite Negative (Negative) Urine Bilirubin Negative (Negative) Urine Urobilinogen Negative (Negative) Ur Leukocyte Esterase Negative (Negative) Urine WBC (Auto) 0-5 (0-5) /hpf Urine RBC (Auto) >20 H (0-2) /hpf U Hyaline Cast (Auto) 0-2 (0-2) /lpf U Epithel Cells (Auto) 0-2 (0-2) /hpf Urine Bacteria (Auto) None Seen (None Seen) Urine Comment Administered Medications Discontinued Medications Acetaminophen (Acetaminophen 500 Mg Tab) 1,000 mg PO NOW STA Stop: 02/08/25 12:27 Last Admin: 02/08/25 12:47 Dose: 1,000 mg Documented By: GIANNI Carvedilol (Carvedilol 25 Mg Tab) 25 mg PO NOW ONE Stop: 02/08/25 15:10 Last Admin: 02/08/25 15:18 Dose: 25 mg Documented By: GIANNI Diphenhydramine HCl (Diphenhydramine 50 Mg/Ml Vial) 50 mg IV ONE ONE Stop: 02/08/25 12:27 Last Admin: 02/08/25 12:47 Dose: 50 mg Documented By: GIANNI Hydralazine HCl (Hydralazine Hcl 20 Mg/Ml Vial) 10 mg IV NOW STA Stop: 02/08/25 14:43 Last Admin: 02/08/25 14:46 Dose: 10 mg Documented By: GIANNI Parenteral Electrolytes (Plasma-Lyte A Ph 7.4) 500 mls @ 999 mls/hr IV .Q31M ONE Stop: 02/08/25 12:56 Last Infusion: 02/08/25 13:48 Dose: Infused Documented By: Admin: 02/08/25 12:46 Dose: 999 mls/hr Documented By: GIANNI Ioversol (Optiray 320 100ml) 93 ml IV ONCE ONE Stop: 02/08/25 13:43 Last Admin: 02/08/25 13:43 Dose: 93 ml Documented By: JUAN DIEGO Labetalol HCl (Labetalol Hcl Iv 5 Mg/Ml 20ml) 20 mg IV NOW STA Stop: 02/08/25 16:06 Last Admin: 02/08/25 16:23 Dose: 20 mg Documented By: ROOSEVELT Methylprednisolone (Methylprednisolone 125 Mg/2 Ml Vial) 40 mg IV NOW ONE Stop: 02/08/25 12:27 Last Admin: 02/08/25 12:48 Dose: 40 mg Documented By: GIANNI Morphine Sulfate (Morphine Sulfate 4 Mg/Ml 1 Ml Carp\\Vial) 4 mg IV NOW STA Stop: 02/08/25 14:54 Last Admin: 02/08/25 14:58 Dose: 4 mg Documented By: GIANNI Ondansetron HCl (Ondansetron Inj 2 Mg/Ml 2 Ml Vial) 4 mg IV NOW STA Stop: 02/08/25 12:27 Last Admin: 02/08/25 12:47 Dose: 4 mg Documented By: GIANNI Ondansetron HCl (Ondansetron Inj 2 Mg/Ml 2 Ml Vial) 4 mg IV NOW STA Stop: 02/08/25 14:43 Last Admin: 02/08/25 14:46 Dose: 4 mg Documented By: GIANNI Imaging Data Radiologist's Impression: Abdomen/Pelvis CT 02/08/25 12:[address] WITH IV CONTRAST CT DOSE: 1090.08 mGy.cm HISTORY: Acute right lower quadrant abdominal pain with nausea and vomiting RLQ TTP, nausea, vomiting, eval for appendicitis TECHNIQUE: Multiaxial CT images of the abdomen and pelvis were performed following the IV administration of 93 cc of Optiray, A dose lowering technique was utilized adhering to the principles of ALARA. COMPARISON STUDY: CT abdomen and pelvis 12/15/2024 FINDINGS: Mild dependent subsegmental bibasilar atelectasis. No pneumatosis or pneumoperitoneum. Unremarkable spleen, pancreas, and adrenal glands. Cholelithiasis without CT evidence of acute cholecystitis. No biliary ductal dilation. Unremarkable liver. Patency of the hepatic and portal veins. No hydronephrosis. Indeterminate subcentimeter hypodensity of the mid pole right kidney, possibly a small angiomyolipoma. Unremarkable urinary bladder. Hysterectomy. Atherosclerosis of the aorta and branch vessels. 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 Fluid surrounding the graft is unchanged from the prior study. No lymphadenopathy. Unchanged appearance of the [place] iliac arteries. There is no bowel obstruction or bowel wall thickening. Colonic diverticulosis without acute diverticulitis. No ascites or mesenteric inflammation. Normal appendix. 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 Degenerative changes of the spine, pelvis and hips. Small supraumbilical midline abdominal wall hernia, opening of 1.9 cm. A few additional smaller fat filled midline hernias are also noted. IMPRESSION: 1. No acute intra-abdominal or intrapelvic abnormality. 2. No bowel obstruction or bowel wall thickening. Normal appendix. 3. Colonic diverticulosis. 4. Cholelithiasis. 5. Chronic findings as above. ACT 112: Negative or not required by law. The above report was generated using voice recognition software. It may contain grammatical, syntax or spelling errors. Electronically signed by: Álvaro Jimenez M.D. 02/08/2025 2:07 PM Chest X-Ray 02/08/25 12:28 XR chest 1V portable HISTORY: 59 years-old Female abd and chest pain, eval for free air, pna acute chest pain COMPARISON: CTA chest 12/15/2024 TECHNIQUE: AP view of the chest FINDINGS: Cardiomediastinal and hilar silhouettes are within normal limits. Pulmonary emphysema. No pneumothorax, pleural effusion, airspace consolidation or pulmonary edema. Healed chronic fracture of the posterior lateral right seventh rib. Cervical spinal fusion hardware. IMPRESSION: Emphysema without acute process. ACT 112: Negative or not required by law. The above report was generated using voice recognition software. It may contain grammatical, syntax or spelling errors. Electronically signed by: Álvaro Jimenez M.D. 02/08/2025 12:57 PM Discharge Plan Visit Data Chief Complaint: Chest Pain ED Provider: Celso Galan Discharge Problem: Cyclic vomiting syndrome, Viral gastroenteritis, Hypertension, uncontrolled Patient Disposition: Admitted As Inpatient Condition: Fair Forms Stand Alone Forms: [employer] Prescriptions Prescriptions: No Action (DME) blood-glucose meter [FreeStyle Lite Meter] Kit See Rx Instructions .Route Qty: 1 0RF Rx Instructions: Check blood glucose once per day (DME) FreeStyle Lite Strips Strip See Rx Instructions .Route Qty: 100 0RF Rx Instructions: Use with meter to check BG once per day (DME) lancets Misc See Rx Instructions .Route Qty: 100 0RF Rx Instructions: use with meter to heck BG once per day Eliquis 5 mg tablet 5 mg PO BID Qty: 180 1RF levetiracetam [Keppra] 1,000 mg tablet 1,000 mg PO BID Qty: 180 3RF amitriptyline 25 mg tablet 25 mg PO HS Qty: 90 1RF clopidogrel [Plavix] 75 mg tablet 75 mg PO HS Qty: 90 1RF Patient Comments: PER DR MAYNARD OFFICE, TOLD TO STOP 7 DAYS BEFORE PROCEDURE carvedilol 25 mg tablet 25 mg PO BID Qty: 60 2RF Rx Instructions: must administer with a meal/food nitroglycerin 0.4 mg tablet, sublingual 0.4 mg sublingual UD PRN (Reason: Chest Pain) venlafaxine 150 mg capsule,extended release 24hr 150 mg PO DAILY Qty: 90 3RF Rx Instructions: Take 150 mg for one week before adding 75 mg capsule for total of 225 mg daily. venlafaxine 75 mg capsule,extended release 24hr 75 mg PO DAILY Qty: 90 3RF Rx Instructions: Take along with 150 mg tab for total of 225 mg daily rosuvastatin [Crestor] 40 mg tablet 40 mg PO HS Qty: 90 3RF cholecalciferol (vitamin D3) [Vitamin D3] 125 mcg (5,000 unit) Tablet 125 mcg PO DAILY potassium chloride 20 mEq tablet extended release 20 meq PO QAM Entresto 97-103 mg tablet 1 tab PO BID Referrals Referrals: Teena Killian DO [Primary Care Provider] -
[2025-02-08 12:45] LABS: Alanine Aminotransferase 10 U/L (7-52); Albumin Globulin Ratio 1.4 (0.9-2); Alkaline Phosphatase 74 U/L (34-104); Anion Gap 10 (3-11); Bilirubin,Total 0.4 mg/dl (0.2-1.0); Blood Urea Nitrogen 13 mg/dl (6-23); Calcium 10.0 mg/dl (8.6-10.3); Carbon Dioxide 23 mmol/L (21-32); Chloride 108 mmol/L (98-107); Globulin 3.3 gm/dl (2.5-4.0); Glucose 207 mg/dl (70-99(Fasting)); Lipase 19 U/L (11-82); Potassium 3.9 mmol/L (3.5-5.1); Sodium 141 mmol/L (136-145); Total Protein 7.8 gm/dl (6.0-8.3)
[2025-02-08 12:46] LABS: Pregnancy Test, Serum Negative (Negative)
[2025-02-08] MEDS: PLASMA-LYTE A 500 ML IV ONE ×2 (12:46→17:37)
[2025-02-08] MEDS: ONDANSETRON INJ 2 MG/ML 2 ML VIAL IV STA ×3 (12:47→20:43)
[2025-02-08] MEDS: ACETAMINOPHEN 500 MG TAB PO STA (12:47)
[2025-02-08] MEDS: diphenhydrAMINE 50 MG/ML VIAL IV ONE (12:47)
--- NOTE | 2025-02-08 12:59 | XRay Report ---
XR chest 1V portable HISTORY: 59 years-old Female abd and chest pain, eval for free air, pna acute chest pain COMPARISON: CTA chest 12/15/2024 TECHNIQUE: AP view of the chest FINDINGS: Cardiomediastinal and hilar silhouettes are within normal limits. Pulmonary emphysema. No pneumothora x, pleural effusion, airspace consolidation or pulmonary edema. 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 Cervical spinal fusion hardware. IMPRESSION: Emphysema without acute process. ACT 112: Negative or not required by law. The above report was generated using voice recognition software. It may contain grammatical, syntax o r spelling errors. Electronically signed by: Álvaro Jimenez M.D. 02/08/2025 12:57 PM
[2025-02-08] MEDS: OPTIRAY 320 100ml IV ONE (13:43)
[2025-02-08 13:44] LABS: Appearance Urine Clear (Clear); Bacteria Urine Automated None Seen (None Seen); Cast Urine Automated 0-2 /lpf (0-2); Epithelial Cell Urine Auto 0-2 /hpf (0-2); Glucose Urine UA Negative (Negative); RBC Urine Automated >20 /hpf (0-2); WBC Urine Automated 0-5 /hpf (0-5)
--- NOTE | 2025-02-08 14:09 | CT Scan Report ---
ABDOMEN AND PELVIS CT WITH IV CONTRAST CT DOSE: 1090.08 mGy.cm HISTORY: Acute right lower quadrant abdominal pain with nausea and vomiting RLQ TTP, nausea, vomitin g, eval for appendicitis TECHNIQUE: Multiaxial CT images of the abdomen and pelvis were performed following the IV administrat ion of 93 cc of Optiray, A dose lowering technique was utilized adhering to the principles of ALARA. COMPARISON STUDY: CT abdomen and pelvis 12/15/2024 FINDINGS: Mild dependent subsegmental bibasilar atelectasis. No pneumatosis or pneumoperitoneum. Unre markable spleen, pancreas, and adrenal glands. Cholelithiasis without CT evidence of acute cholecysti tis. No biliary ductal dilation. Unremarkable liver. Patency of the hepatic and portal veins. No hydronephrosis. Indeterminate subcentimeter hypodensity of the mid pole right kidney, possibly a [place] angiomyolipoma. Unremarkable urinary bladder. Hysterectomy. Atherosclerosis of the aorta and bra nch vessels. 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 Fluid surrounding the graft is unchanged from the prior study. No lymphadenopathy. Unchanged appeara nce of the [place] iliac arteries. There is no bowel obstruction or bowel wall thickening. Colonic diverticulosis without acute divertic ulitis. No ascites or mesenteric inflammation. Normal appendix. Avascular necrosis of the left femora l head without articular collapse. Degenerative changes of the spine, pelvis and hips. Small supraumb ilical midline abdominal wall hernia, opening of 1.9 cm. A few additional smaller fat filled midline hernias are also noted. IMPRESSION: 1. No acute intra-abdominal or intrapelvic abnormality. 2. No bowel obstruction or bowel wall thickening. Normal appendix. 3. Colonic diverticulosis. 4. Cholelithiasis. 5. Chronic findings as above. ACT 112: Negative or not required by law. The above report was generated using voice recognition software. It may contain grammatical, syntax o r spelling errors. Electronically signed by: Álvaro Jimenez M.D. 02/08/2025 2:07 PM
[2025-02-08] MEDS: MoRPHine SULFATE 4 MG/ML 1 ML CARP\\VIAL IV STA (14:58)
[2025-02-08] MEDS: LABETALOL HCL IV 5 MG/ML 20ML IV STA (16:23)
[2025-02-08] MEDS: METOCLOPRAMIDE HCL INJ 5 MG/ML 2 ML VIAL IV STA (17:37)
--- NOTE | 2025-02-08 17:45 | History & Physical Report ---
Date of Service February 08, 2025 Assessment & Plan (1) Nausea vomiting and diarrhea: (2) RUQ pain: (3) Diabetes mellitus: (4) Seizure disorder: (5) Peripheral arterial disease: (6) HTN (hypertension): (7) Hypertension, uncontrolled: (8) Obstructive sleep apnea: (9) Gastroenteritis: (10) Renal artery stenosis: Plan #Nausea, vomiting, RUQ abdominal pain, dehydration- prior dx cyclic vomiting, ongoing marijuana use and increased but has had significant other w/ low grade temp/feeling ill. WBC elevated but ?reactive from n/v. UA not appearing infected. CXR w/ emphysema (smoking hx), no hypoxia. Was HTN on admission Obs med w/ telemetr IVF D5LR x1 L Protonix BID for possible ?gastritis - is on eliquis BID/plavix for hx PAD and not on any GI proph. Reported prior blood in stool before c-scope but non since that time. Hgb stable 15.3/likely hemoconcentrated check stool PCR/cdiff given recent abx/diarrhea reported RUQ US ordered for eval, does have stone on prior. ?need for MRCP pending US results but did have one done in December already Antiemetics with zofran as needed Pain control w/ tylenol, morphine as needed for breakthrough. Trial capsaicin Monitor serial trop given hx Diet as tolerated *Notable prior admit w/ elevated plasmametanephrons and cardiomyopathy w/ ICU stay - 24hr catecholamines added and should likely have ref to endocrinology given hx HTN/CATRACHITA/DM/hx press as well Encourage avoidance marijuana Monitor labs/electrolytes in AM #HTN, Cardiomyopathy (follows [facility] cards, Dr Rodriguez - recent EF reported ~40%) - significant in ER on arrival but improved w/ meds. 250cc bolus for hypotension likely over treatment continue coreg, entresto BID w hold parameters tele monitoring/trend troponin #PAD- Hx bilateral external iliac artery occlusion with common femoral artery reconstitution-02/2021 aorta with runoff CTA, follows with Dr. Maynard and remains on eliquis/plavix. #DM II- decent control, has been off metformin per prior recs for GI distress. BSG AC/HS and SSI ordered. Adjustment as needed Hx TIA, seizures -- BP control as above, 250cc bolus/1L ordered. continue eliquis/plavix, keppra. DVT proph: continue Eliquis BID, PPI Dispo: obs telemetry, serial troponin and RUQ US for eval. History of Present Illness Primary Care Provider: Teena Killian, DO 59yo female with PMHx significant for takotsubo cardiomyopathy (follows [facility]), HTN, PRESS, cyclic vomiting disorder/marijuana use presented with abdominal pain, intractable nausea/vomiting and diarrhea and inability to keep anything down. Evaluated in A12B, ongoing RUQ/epigastric discomfort. No vomiting at present. Reports RUQ pain, has been using more marijuana recently due to poor appetite without improvement. She notes her significant other recently feeling ill/low grade temp but no diarrhea. She notes having c-scope and having abx for diverticulitis following and ongoing diarrhea. Did not take her pills this morning - Significant HTN on admission 2nd to not taking meds this morning due to n/v and given Hydralazine. CTAP notes GB w/ stones but no acute dewey, US ordered. Discussed marijuana related vs viral vs infectious vs bilary colic vs other. Has reported being OFF her metformin per prior recs for GI distress.Will obtain stool studies as well as biofire. Is on Eliquis/Plavix for Hx PAD/CAD and had abdominal aortic repair by Dr Maynard in the past. Also had been without her venlafaxine as was increased from 150mg to 225mg and insurance company not willing to cover the refill, but reports has been sorted out and is taking. No CP but does have some rib discomfort from vomiting. Troponin negative on high sensitivity testing. No further smoking cigarettes ~12 yrs, does smoke marijuana, has increased use for nausea/poor appetite without improvement. ER Course: morphine, labetalol, coreg x 1, zofran, tylenol, 500c plasma lyte. Medicated for CTAP w/ steroid/benadryl given allergy. CTAP noting no acute intraabdominal pathology -- report w/ Indeterminate subcentimeter hypodensity of the mid pole right kidney, possibly a small angiomyolipoma --? pheo *Notable w/ elevated BP -- prior labs w/ plasma metanephrines/norepinephrine elevated Sep 2023-- she does endorse sx of orthostasis, feeling like going to pass out, flushing, diaphoresis and HTN, Weight loss.. Typically BP 120/80 on her meds but w/ hx takotsubo's, concerning for ?underlying pheochromocytoma and will discuss for further eval and review imaging. Hx takotsubo cardiomyopathy, follows [facility], EF improved on repeat and has been on entresto. Questions/concern addressed at this time. Full code as long as meaningful/quality of life. Allergies Allergy/AdvReac Type Severity Reaction Status Date / Time napoles Allergy Intermediate Hives Verified 02/08/25 16:01 (green/hartman beans) broccoli Allergy Intermediate Bruising Verified 02/08/25 16:01 doxycycline Allergy Intermediate Hives, Verified 02/08/25 16:01 vomiting Iodinated Contrast Media Allergy Intermediate Large Verified 02/08/25 16:01 hives, vomiting, "feeling hot" iodine Allergy Intermediate Hives, Verified 02/08/25 16:01 vomiting latex Allergy Intermediate Rash Verified 02/08/25 16:01 loperamide Allergy Intermediate Hives, Verified 02/08/25 16:01 vomiting meperidine Allergy Intermediate Hives, Verified 02/08/25 16:01 vomiting strawberry Allergy Intermediate Hives Verified 02/08/25 16:01 tomato Allergy Intermediate Hives Verified 02/08/25 16:01 prochlorperazine Allergy Mild Nausea, Verified 02/08/25 16:01 vomiting, itchiness polyethylene glycol AdvReac Intermediate Elevated Verified 02/08/25 16:01 [From Golytely] BP/Vomiting polyethylene glycol 3350 AdvReac Intermediate Elevated Verified 02/08/25 16:01 [From Golytely] BP/Vomiting potassium chloride AdvReac Intermediate Elevated Verified 02/08/25 16:01 [From Golytely] BP/Vomiting sodium [From Golytely] AdvReac Intermediate Elevated Verified 02/08/25 16:01 BP/Vomiting sodium bicarbonate AdvReac Intermediate Elevated Verified 02/08/25 16:01 [From Golytely] BP/Vomiting sodium chloride AdvReac Intermediate Elevated Verified 02/08/25 16:01 [From Golytely] BP/Vomiting sodium sulfate AdvReac Intermediate Elevated Verified 02/08/25 16:01 [From Golytely] BP/Vomiting Home Medications Medication Instructions Recorded Confirmed Type carvedilol 25 mg tablet 25 mg PO BID #60 tabs 01/01/23 02/08/25 Rx nitroglycerin 0.4 mg sublingual 0.4 mg sublingual UD PRN Chest Pain 06/07/24 02/08/25 History tablet blood sugar diagnostic (FreeStyle #100 ea 06/17/24 12/21/24 Rx Lite Strips) blood-glucose meter (FreeStyle #1 ea 06/17/24 12/21/24 Rx Lite Meter kit) lancets #100 ea 06/17/24 12/21/24 Rx apixaban 5 mg tablet (Eliquis) 5 mg PO BID #180 tabs 10/11/24 02/08/25 Rx levetiracetam 1,000 mg tablet 1,000 mg PO BID #180 tabs 10/18/24 02/08/25 Rx (Keppra) rosuvastatin 40 mg tablet (Crestor) 40 mg PO HS #90 tabs 11/10/24 02/08/25 Rx sacubitril 97 mg-valsartan 103 mg 1 tab PO BID 12/06/24 02/08/25 History tablet (Entresto) cholecalciferol (vitamin D3) 125 125 mcg PO DAILY 12/08/24 02/08/25 History mcg (5,000 unit) tablet (Vitamin D3) potassium chloride 20 mEq 20 meq PO QAM 12/08/24 02/08/25 History tablet,extended release amitriptyline 25 mg tablet 25 mg PO HS #90 tabs 12/20/24 02/08/25 Rx venlafaxine 150 mg 150 mg PO DAILY #90 caps 01/03/25 02/08/25 Rx capsule,extended release 24 hr venlafaxine 75 mg capsule,extended 75 mg PO DAILY #90 caps 01/03/25 02/08/25 Rx release 24 hr clopidogrel 75 mg tablet (Plavix) 75 mg PO HS #90 tabs 01/04/25 02/08/25 Rx Past Med/Surg History Problem List (Updated 02/08/25 @ 18:52 by Mary Zapata PA-C) RUQ pain Hypertension, uncontrolled (Acute) Viral gastroenteritis (Acute) Cyclic vomiting syndrome (Acute) Obstructive sleep apnea no device d/t recall - to have sleep study 01/18/25 Weight loss Chronic diarrhea Gastroenteritis (Acute) Nausea vomiting and diarrhea (Acute) Non-ST elevation [place] (NSTEMI) (Acute) Diabetes mellitus Occlusion of left iliac artery Seizure disorder Upper gastrointestinal bleed 2021, resolved Peripheral arterial disease Bilateral external iliac artery occlusion with common femoral artery reconstitution-02/2021 aorta with runoff CTA, follows with Dr. Maynard Cyclic vomiting syndrome no GI pathology on EGD, US, CT of abd/pelvis, celiac testing and GES per 04/2020 GI consult: biliary w/u and upper GI study recommended (upper GI study neg per d/c summary), cannabis cessation, continue Protonix and prn Zofran > currently controlled GERD (gastroesophageal reflux disease) Renal artery stenosis following with Dr Maynard Vitamin D deficiency HTN (hypertension) (Acute) h/o multiple hypertensive urgency episodes, renal artery stenosis, following with cardiology and vascular surgery Cervical spondylosis with myelopathy and radiculopathy Carpal tunnel syndrome Anxiety disorder Hyperlipidemia Multiple thyroid nodules Pulmonary emphysema well controlled per pt Hx-TIA (transient ischemic attack) pt denies CAD (coronary artery disease) Mild-moderate non-obstructive CAD per 2016 cardiac cath Carotid stenosis < 50% stenosis B/L per US 12/16/18 Marijuana dependence (Acute) Medical History Vertigo Cerebellar stroke Obstructive sleep apnea mod-severe per PCP records (does not have device) Diverticulosis Difficult intravenous access Pulmonary emphysema controlled as per patient - quit tobacco use Renal artery stenosis s/p multiple vascular surgeries with Dr Maynard Intractable nausea and vomiting recently to [facility] 12/03/24 and 12/06/24 History of hypertensive crisis Multiple - Dr Rodriguez Cardiology Gastroenteritis Diabetes mellitus, type 2 Oral - currently on hold History of chest pain recently took nitro 12/03/24 went to [facility] ER - pt denies at this time History of stroke 2022? followed with [facility] in past no longer with a neurologist - no residuals - Abdominal pain recently seen in [facility] 12/03/24 & 12/06/24 Decreased appetite as per patient since 07/2024 until 12/2024 went from 208lbs to 160lbs Unintentional weight loss as per patient since 07/2024 until 12/2024 went from 208lbs to 160lbs History of recent hospitalization 12/03/24 & 12/06/24 [facility] ER for abdominal pain, nausea, vomiting. Acute upper gastrointestinal bleeding hx - pt denies at this time Elevated troponin Hypokalemia Hypophosphatemia Tachycardia Postoperative nausea Seizures 2018 r/t hypertensive emergency > encephalopathy. last seizure 2019 - tonja mace neurologist Hematemesis hx - pt denies any issues currently History of COVID-19 03/18/22, pcr [facility], hospitalized day after diagnosis due to vomiting blood, discharged on 03/22/22; fever, vomiting, body chills and aches, diarrhea > resolved currently. Ischemia of right lower extremity Depression Proteinuria Cyclic vomiting syndrome still uses medical marijuana Hypercalcemia PRES (posterior reversible encephalopathy syndrome) has since caused seizures that started in 2018. following with PCP, last seizure per pt 08/2019 per PCP records Cannabinoid hyperemesis syndrome History of diverticulitis of colon Most recent 04/2022 - just had CT Abd/Pelvis at [facility] 12/2024 - nothing notated Transient cerebrovascular ischemia possibly 2022? patient unsure of when - did follow up with [facility] Neurology, no longer does - no residuals Cervical disc disorder Full ROM per pt Takotsubo cardiomyopathy 2017. Admitted [facility], full cardiac workup including cath. EF at the time 40%, now subsequent echos. Follows with Dr. Rodriguez NSTEMI (non-ST elevated myocardial infarction) 2017 - no stents - Dr Rodriguez Cardiology "I had a couple" as per patient Surgical History History of colonoscopy History of vascular surgery (09/2022) Right Fem to Left Fem Bypass History of anesthesia reaction Low O2 sats during colonoscopy 04/2022 at [facility] and post-procedure elevated BP. Per post-op anesthesia progress note, O2 96-100% RA and "Pt has increased BP 2ndary to abdominal pain. Pt also has nausea w/ dry heaves. Pt to have CT scan per Dr Patten." History of tooth extraction Upper/Lower Dentures History of cataract surgery bilateral Status post surgery (09/2021) RLE thrombectomy S/P aortobifemoral bypass surgery Sep 2021 [facility] History of esophagogastroduodenoscopy (EGD) H/O cervical spine surgery ACDF C4-7 Dr. Wells: Grade 1 view, Bojorquez#2 and ETT#7.5 atraumatic x 1. No issues per anesthesia postop progress note. ROM WNL History of cardiac cath 2017 > no stents - Dr Fragin Cardiology History of ovarian cystectomy History of hernia surgery right inguinal hernia repair History of hysterectomy Family History Father Family history of stomach cancer Malignant neoplasm of esophagus Stomach cancer Myocardial infarction Stroke Uncle Throat cancer Family history of cancer FAMILY HISTORY OF CANCER - UNCLE - VOCAL CORDS FAMILY HISTORY OF CANCER - AUNT - ? KIND Grandmother (Maternal) Bone cancer Breast cancer Mother No problems noted. Brother Lung cancer Other Family history of diabetes mellitus No family history of adverse response to anesthesia No pertinent family history Denies family history of Colon cancer Ovarian cancer Prostate cancer Crohn's disease IBD (inflammatory bowel disease) Social History Smoking Status: Former smoker Tobacco Type: Cigarettes Age Started Using Tobacco: 20; Age Quit Using Tobacco: 49; packs per day: 1.5; Second Hand Exposure: No; Do You Dip or Chew Tobacco: No; Hx Alcohol Use: No Hx Substance Use: Yes Last Used Substance: Unknown Substance Use Type Other:: Medical Marijuana Preferred Language: Occitan Communication Ability: Effective Visual Impairment: No Limitations Hearing Ability: Normal Tick Inspector Required: Yes Beliefs That Will Affect Care: None marital status: Current Living Situation: Significant Other Current Living Situation Comment: with boyfriend current occupational status: employed current occupation: [employer] Other Information That Helps Us Care for You: No Feels Safe at Home: Yes Safety Concerns: Feels Safe At This Time Childhood Exposure to Second-Hand Smoke: Yes Diet: regular Diet Comment: Regular caffeine: Yes (1 cup of coffee) during the past year weight has: other Dental Care, Regularly: No Physical Activity Frequency: Daily Physical Activity Frequency Comment: walking Seatbelt Use: always Sunscreen Use: Yes Assistive Devices: Cane Physical Exam Physical Exam: General: 59yo female, looks older than stated age, sitting up in bed, NAD, but ongoing nausea/RUQ pain HEENT: head atraumatic, normocephalic, mm DRY trachea midline Resp; even/unlabored, diminished in the bases/associated crackles but no rales/wheezing, on room air CV: regular, no significant m/r/g no pitting edema, pulse present, cap refill wnl GI: +BS, slightly slow, slightly distended but soft, +RUQ tenderness/epigastric tenderness, no overt guarding/rigidity, prior abd scar from AAA repair no novak MSK/Neuro: not confused, answering questions appropriately, moves all extremities, generalized weakness but nonfocal Psych: Aox3, cooperative but fatigued appearing Results & Data Results & Data Vital Signs (Past 12 Hours) Vital Signs Temp Pulse Resp BP Pulse Ox O2 Del Method 02/08/25 17:12 84 15 02/08/25 17:03 85 9 L 02/08/25 17:00 192/129 H 02/08/25 16:45 83 9 L 02/08/25 16:33 85 8 L 02/08/25 16:30 173/123 H 02/08/25 16:30 173/123 H 02/08/25 16:30 173/123 H 02/08/25 16:30 173/123 H 02/08/25 16:27 88 19 02/08/25 16:25 74 02/08/25 16:24 196/124 H 02/08/25 16:24 196/124 H 02/08/25 16:24 196/124 H 02/08/25 16:24 196/124 H 02/08/25 16:24 87 18 02/08/25 16:23 69 196/124 H 02/08/25 16:21 80 11 L 02/08/25 15:33 90 15 95 02/08/25 15:30 201/130 H 02/08/25 15:30 201/130 H 02/08/25 15:24 85 7 L 95 02/08/25 15:03 92 H 14 97 02/08/25 15:00 210/143 H 02/08/25 15:00 210/143 H 02/08/25 15:00 210/143 H 02/08/25 15:00 210/143 H 02/08/25 14:54 80 13 97 02/08/25 14:51 83 16 97 02/08/25 14:50 190/119 H 02/08/25 14:50 190/119 H 02/08/25 14:50 190/119 H 02/08/25 14:33 93 H 7 L 99 02/08/25 14:30 193/122 H 02/08/25 14:30 193/122 H 02/08/25 14:30 193/122 H 02/08/25 14:30 193/122 H 02/08/25 14:30 193/122 H 02/08/25 14:30 193/122 H 02/08/25 14:30 193/122 H 02/08/25 14:30 193/122 H 02/08/25 14:30 193/122 H 02/08/25 14:30 193/122 H 02/08/25 14:30 193/122 H 02/08/25 14:30 193/122 H 02/08/25 14:30 78 12 97 02/08/25 14:15 92 H 99 02/08/25 14:05 169/128 H 02/08/25 14:05 169/128 H 02/08/25 14:03 94 H 02/08/25 14:01 200/119 H 02/08/25 13:54 90 13 98 02/08/25 13:51 93 H 15 98 02/08/25 13:51 65 02/08/25 13:12 89 8 L 100 02/08/25 13:03 79 10 L 99 02/08/25 13:00 199/123 H 02/08/25 13:00 199/123 H 02/08/25 12:54 83 9 L 98 02/08/25 12:42 84 9 L 99 02/08/25 12:30 70 8 L 97 02/08/25 12:30 194/113 H 02/08/25 12:30 194/113 H 02/08/25 12:30 194/113 H 02/08/25 12:30 194/113 H 02/08/25 12:17 206/114 H 02/08/25 12:17 206/114 H 02/08/25 12:17 206/114 H 02/08/25 12:17 206/114 H 02/08/25 12:15 68 9 L 97 02/08/25 11:58 36.7 C 70 15 167/112 H 97 Room Air 02/08/25 11:41 99 Room Air Laboratory Results 02/08/25 02/08/25 02/08/25 Range/Units Unknown 15:47 12:11 WBC 12.29 H (4.8-10.8) K/ul RBC 5.00 (4.20-5.40) M/uL Hgb 15.3 (12.0-16.0) g/dl Hct 45.7 (37.0-47.0) % MCV 91.4 (80.0-100.0) fL MCH 30.6 (25.0-34.0) pg MCHC 33.5 (32.0-36.0) g/dL RDW Std Deviation 41.8 (36.4-46.3) fL RDW Coeff of Jose Luis 12.7 (11.5-14.5) % Plt Count 300 (130-400) K/uL MPV 9.9 (9.4-12.4) fL Immature Gran % (Auto) 0.2 % Neut % (Auto) 84.5 % Lymph % (Auto) 10.8 % [place] % (Auto) 3.3 % Eos % (Auto) 0.4 % Baso % (Auto) 0.8 % Neut # (Auto) 10.37 H (1.40-6.50) K/uL Lymph # (Auto) 1.33 (1.20-3.40) K/uL [place] # (Auto) 0.41 (0.11-0.59) K/uL Eos # (Auto) 0.05 (0.00-0.50) K/uL Baso # (Auto) 0.10 (0.00-0.20) K/uL Immature Gran # (Auto) 0.03 (0.01-0.20) K/uL Sodium 141 (136-145) mmol/L Potassium 3.9 (3.5-5.1) mmol/L Chloride 108 H (98-107) mmol/L Carbon Dioxide 23 (21-32) mmol/L Anion Gap 10 (3-11) BUN 13 (6-23) mg/dl Creatinine 0.77 (0.6-1.2) mg/dl Est Cr Clr Drug Dosing Not Reportable eGFR 89.36 BUN/Creatinine Ratio 16.9 (10-20) Glucose 207 H (70-99(Fasting)) mg/dl Calcium 10.0 (8.6-10.3) mg/dl Total Bilirubin 0.4 (0.2-1.0) mg/dl AST 16 (13-39) U/L ALT 10 (7-52) U/L Alkaline Phosphatase 74 (34-104) U/L Troponin I High Sens 7.6 7.2 (0-14) pg/ml C-Reactive Protein < 0.50 (0-0.5) mg/dl Total Protein 7.8 (6.0-8.3) gm/dl Albumin 4.5 (3.4-5.0) gm/dl Globulin 3.3 (2.5-4.0) gm/dl Albumin/Globulin Ratio 1.4 (0.9-2) Lipase 19 (11-82) U/L HCG, Qual Negative (Negative) Urine Color Yellow Urine Appearance Clear (Clear) Urine pH >= 9.0 H (4.5-7.5) Ur Specific [place] 1.013 (1.000-1.030) Urine Protein 3+ H (Negative) Urine Glucose (UA) Negative (Negative) Urine Ketones Negative (Negative) Urine Blood 2+ H (Negative) Urine Nitrite Negative (Negative) Urine Bilirubin Negative (Negative) Urine Urobilinogen Negative (Negative) Ur Leukocyte Esterase Negative (Negative) Urine WBC (Auto) 0-5 (0-5) /hpf Urine RBC (Auto) >20 H (0-2) /hpf U Hyaline Cast (Auto) 0-2 (0-2) /lpf U Epithel Cells (Auto) 0-2 (0-2) /hpf Urine Bacteria (Auto) None Seen (None Seen) Urine Comment Diagnostic Findings Abdomen/Pelvis CT 02/08/25 12:[address] WITH IV CONTRAST CT DOSE: 1090.08 mGy.cm HISTORY: Acute right lower quadrant abdominal pain with nausea and vomiting RLQ TTP, nausea, vomiting, eval for appendicitis TECHNIQUE: Multiaxial CT images of the abdomen and pelvis were performed following the IV administration of 93 cc of Optiray, A dose lowering technique was utilized adhering to the principles of ALARA. COMPARISON STUDY: CT abdomen and pelvis 12/15/2024 FINDINGS: Mild dependent subsegmental bibasilar atelectasis. No pneumatosis or pneumoperitoneum. Unremarkable spleen, pancreas, and adrenal glands. Cholelithiasis without CT evidence of acute cholecystitis. No biliary ductal dilation. Unremarkable liver. Patency of the hepatic and portal veins. No hydronephrosis. Indeterminate subcentimeter hypodensity of the mid pole right kidney, possibly a small angiomyolipoma. Unremarkable urinary bladder. Hysterectomy. Atherosclerosis of the aorta and branch vessels. 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 Fluid surrounding the graft is unchanged from the prior study. No lymphadenopathy. Unchanged appearance of the ambler iliac arteries. There is no bowel obstruction or bowel wall thickening. Colonic diverticulosis without acute diverticulitis. No ascites or mesenteric inflammation. Normal appendix. 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 Degenerative changes of the spine, pelvis and hips. Small supraumbilical midline abdominal wall hernia, opening of 1.9 cm. A few additional smaller fat filled midline hernias are also noted. IMPRESSION: 1. No acute intra-abdominal or intrapelvic abnormality. 2. No bowel obstruction or bowel wall thickening. Normal appendix. 3. Colonic diverticulosis. 4. Cholelithiasis. 5. Chronic findings as above. ACT 112: Negative or not required by law. The above report was generated using voice recognition software. It may contain grammatical, syntax or spelling errors. Electronically signed by: Álvaro Jimenez M.D. 02/08/2025 2:07 PM Chest X-Ray 02/08/25 12:28 XR chest 1V portable HISTORY: 59 years-old Female abd and chest pain, eval for free air, pna acute chest pain COMPARISON: CTA chest 12/15/2024 TECHNIQUE: AP view of the chest FINDINGS: Cardiomediastinal and hilar silhouettes are within normal limits. Pulmonary emphysema. No pneumothorax, pleural effusion, airspace consolidation or pulmonary edema. Healed chronic fracture of the posterior lateral right seventh rib. Cervical spinal fusion hardware. IMPRESSION: Emphysema without acute process. ACT 112: Negative or not required by law. The above report was generated using voice recognition software. It may contain grammatical, syntax or spelling errors. Electronically signed by: Álvaro Jimenez M.D. 02/08/2025 12:57 PM Supervising Physician Co-Signing Physician Notes Attending Attestation & Admit Note: Pt seen/examined, chart reviewed, admit care plan d/w PRASAD Zapata. I agree w/ the real components of her admission documentation. 59yo female with significant PAD, h/o Takotsubo's cardiomyopathy (last EF 50-55% in 2023), THC use, HTN with multiple hospital admissions for HTN emergency, h/o cyclic vomiting syndrome, h/o migraines, h/o PRES, renal artery stenosis, prior stroke, seizure. Presents with severe nausea, vomiting, abdominal pain, diarrhea, and markedly elevated BP. Symptoms started this morning. Patient states she took her morning medicines but is afraid she didn't keep them down due to vomiting. Upon ER presentation her SBP was 160s, quickly increasing to well over 200 shortly after arrival. When I was evaluating her in the ER she still had nausea with vomiting. She reports having had a headache earlier in the day but it was not her typical migraine headache. Reports that her significant other has been sick with an illness. She reports compliance with all medicines at home. Of note - patient states her BPs at home have been running <130 systolic...until this am when they were elevated. PMH/PSH/allergies/meds/sochx - reviewed VS: severe lability in her BP; received multiple meds in the ER for her BP and she decreased from >200 to <100; this was transient, and her SBP was >200 during my assessment no fever gen - looks ill but nontoxic, just had emesis; awake/alert neck - no JVD mouth - MM dry heart - RRR, s1 s2, no murmur lungs - CTA b/l abd - soft NT ND BS+; no HSM ext - no edema, pulses 2+ b/l feet and radial pulses 2+ labs reviewed; troponins negative despite ongoing symptoms imaging reviewed EKG - my reading - NSR, no ST changes A/P: 1. HTN emergency - with headache, dyspnea, etc. 2. severely labile HTN with numerous admissions for same. 3. nausea/vomiting/diarrhea/abd pain (RUQ) - etiology uncertain. Differential is broad including but not limited to: biliary colic (has gallstones on CT) vs cannabis hyperemesis syndrome vs gastritis vs symptoms due to HTN emergency vs viral GE vs mesenteric ischemia (doubt - CTA a/p in December 2024 with normal celiac artery & SMA) vs migraine headache with N/V vs combination of factors vs other. Numerous other hospital admits for same symptoms. 4. h/o PRES 5. PAD 6. h/o Takotsubo's cardiomyopathy 7. chronic THC use 8. h/o abnormal plasma metanephrines in 2023 -would simply resume her normal chronic BP med regimen -if BPs are refractory then start nicardipine drip -await RUQ u/s report -zofran/pepcid IV now due to ongoing N/V/stomach upset -24 hour urine collection for metanephrines -obtain respiratory BioFire in light of significant other having viral symptoms Franck Hager MD PG Care Time/CCT Total # of Minutes Spent Total Time Spent with Patient: Total time spent is greater than 50% in coordination of care (as documented) at patient's floor/unit and/or counseling patient: Coding Level of Care Code 75145 INT INP/OBS CARE 3/75MIN Diagnoses Nausea vomiting and diarrhea R11.2; R19.7 RUQ pain R10.11 Diabetes mellitus E11.9 Diabetes mellitus complication detail: with other circulatory complications Diabetes mellitus [facility] insulin use: without [facility] use Diabetes mellitus type: type 2 Seizure disorder G40.909 Peripheral arterial disease I73.9 HTN (hypertension) I10 Hypertension, uncontrolled I10 Obstructive sleep apnea G47.33 Gastroenteritis K52.9 Renal artery stenosis I70.1 (3) Diabetes mellitus Diabetes mellitus complication detail: with other circulatory complications Diabetes mellitus [facility] insulin use: without terminal makeup operator use Diabetes mellitus type: type 2
[2025-02-08] MEDS: CAPSAICIN CR 0.075% 60 GM TUBE EXT ONE (18:06)
--- NOTE | 2025-02-08 18:10 | Electrocardiogram Report ---
Test Reason : Blood Pressure : */* mmHG Vent. Rate : 62 BPM Atrial Rate : 62 BPM P-R Int : 190 ms QRS Dur : 92 ms QT Int : 424 ms P-R-T Axes : 33 2 54 degrees QTcB Int : 430 ms Normal sinus rhythm Normal ECG When compared with ECG of 15-Dec-2024 17:03, No significant change was found Confirmed by Pako Holland ([id number]) on 02/08/2025 6:10:16 PM Referred By: REFERRED SELF Confirmed By: Pako Holland
[2025-02-08] MEDS: SODIUM CHLORIDE 0.9% 250 ML IV ONE ×2 (18:53→19:31)
[2025-02-08] MEDS ORDERED: ONDANSETRON INJ 2 MG/ML 2 ML VIAL IV PRN ×2 (19:38→21:18)
[2025-02-08 19:41] LABS: Chlamydia pneumoniae PCR Not Detected (NotDetected); Coronavirus 229E PCR Not Detected (NotDetected); Coronavirus CoV-2 (COVID19)PCR Not Detected (NotDetected); Coronavirus HKU1 PCR Not Detected (NotDetected); Coronavirus NL63 PCR Not Detected (NotDetected); Coronavirus OC43PCR Not Detected (NotDetected); Human Metapneumovirus PCR Not Detected (NotDetected); Parainfluenza Virus 1 PCR Not Detected (NotDetected); Parainfluenza Virus 2 PCR Not Detected (NotDetected); Parainfluenza Virus 3 PCR Not Detected (NotDetected); Parainfluenza Virus 4 PCR Not Detected (NotDetected); Respiratory Syncytial VirusPCR Not Detected (NotDetected); Rhinovirus/Enterovirus PCR Not Detected (NotDetected)
--- NOTE | 2025-02-08 19:56 | Ultrasound Report ---
Clinical history: Follow-up examination Technique: Sonography was performed of the right upper quadrant of the abdomen Comparison is made to the CT dated 12/15/2024 Findings: There is fatty infiltration of the liver. There is suspected focal sparing of fatty infiltration adjacent to the gallbladder. No definite liver mass is seen. There is normal directional flow in the main portal vein There are apparent small gallstones. The gallbladder has a normal wall thickness and no adjacent fluid is seen. No definite sonographic Franklin sign was detected. There is no intrahepatic or extrahepatic bile duct dilatation. The common bile duct measures 6 mm The right kidney measures 10 cm in length. There is no hydronephrosis. No definite renal calculus or mass is seen The visualized pancreas, aorta, and IVC appear unremarkable. No ascites is seen Impression: 1. Fatty infiltration of the liver 2. Cholelithiasis without definite acute cholecystitis ACT 112: Positive. There are findings on this exam that require communication between the performing entity and the patient following Patient Test Result Information Act ([place] ACT 112) guidelines. Electronically signed by Andrea Bloom 02-08-2025 7:56 PM
[2025-02-08] MEDS: FAMOTIDINE 20MG IV PUSH 20 MG/5 ML SYR IV STA (20:43)
[2025-02-08] MEDS: MoRPHine SULFATE 2 MG/ML CARP IV STA (20:43)
[2025-02-08] MEDS ORDERED: GLUCOSE 40% GEL 15 GM TUBE PO PRN (21:18)
[2025-02-08] MEDS ORDERED: GLUCAGON FOR INJ 1 MG VIAL SQ PRN (21:18)
[2025-02-08] MEDS ORDERED: NITROGLYCERIN SL 0.4 MG/TAB TAB SL PRN (21:18)
[2025-02-08] MEDS ORDERED: ACETAMINOPHEN 325 MG TAB PO PRN (21:18)
[2025-02-08] MEDS ORDERED: DEXTROSE 50% 50 ML SYRINGE IV PRN (21:18)
[2025-02-08] MEDS ORDERED: MoRPHine SULFATE 4 MG/ML 1 ML CARP\\VIAL IV PRN (21:18)
[2025-02-08] MEDS ORDERED: GLUCOSE 10 TAB/TUBE PO PRN (21:18)
[2025-02-08] MEDS ORDERED: MoRPHine SULFATE 2 MG/ML CARP IV PRN (21:18)
[2025-02-08] MEDS ORDERED: CARBOHYDRATES FOR HYPOGLYCEMIA PO PRN (21:18)
[2025-02-08] MEDS: APIXABAN 5 MG TABLET PO SCH (22:30)
[2025-02-08] MEDS: AMITRIPTYLINE HCL 25 MG TAB PO SCH (22:30)
[2025-02-08] MEDS: levETIRAcetam 500 MG TAB PO SCH (22:30)
[2025-02-08] MEDS: CLOPIDOGREL BISULFATE 75 MG TAB PO SCH (22:30)
[2025-02-08] MEDS: PANTOprazole 40 MG/10 ML SYR IV SCH (22:30)
[2025-02-08] MEDS: VALSARTAN/SACUBITRIL 103/97MG TAB PO SCH (22:31)
[2025-02-08] MEDS: ROSUVASTATIN CALCIUM 20 MG TAB PO SCH (22:31)
[2025-02-08] MEDS: D5W AND LACTATED RINGERS 1,000 ML IV SCH (22:31)
[2025-02-08] MEDS: INSULIN ASPART PER UNIT CHARGE SC SCH (23:09)
[2025-02-09] MEDS: SODIUM CHLORIDE 0.9% 1,000 ML IV SCH (01:23)
[2025-02-09 04:31] LABS: Hematocrit (blood only) 38.8 % (37.0-47.0); Hemoglobin 13.3 g/dl (12.0-16.0); Immature Granulocytes # (auto) 0.03 K/uL (0.01-0.20); Immature Granulocytes % (auto) 0.3 %; Mean Corpuscular Hemoglobin 31.8 pg (25.0-34.0); Mean Corpuscular Volume 92.8 fL (80.0-100.0); Platelet Count 240 K/uL (130-400); RDW Standard Deviation 42.5 fL (36.4-46.3); Red Blood Count 4.18 M/uL (4.20-5.40); White Blood Count 10.03 K/ul (4.8-10.8)
[2025-02-09 04:48] LABS: Alanine Aminotransferase 7.0 U/L (7-52); Albumin Globulin Ratio 1.4 (0.9-2); Alkaline Phosphatase 56.0 U/L (34-104); Anion Gap 8.0 (3-11); Bilirubin,Total 0.3 mg/dl (0.2-1.0); Blood Urea Nitrogen 16.0 mg/dl (6-23); Calcium 8.4 mg/dl (8.6-10.3); Carbon Dioxide 24.0 mmol/L (21-32); Chloride 108.0 mmol/L (98-107); Creatinine Clr Calc Pharmacy 75.1 ml/min; Globulin 2.7 gm/dl (2.5-4.0); Glucose 130.0 mg/dl (70-99(Fasting)); Magnesium 1.7 mg/dl (1.7-2.4); Potassium 3.3 mmol/L (3.5-5.1); Sodium 140.0 mmol/L (136-145); Total Protein 6.5 gm/dl (6.0-8.3)
--- NOTE | 2025-02-09 07:45 | Hospitalist Progress Note ---
Date of Service February 09, 2025 Assessment & Plan (1) Nausea vomiting and diarrhea: (2) RUQ pain: (3) Diabetes mellitus: (4) Seizure disorder: (5) Peripheral arterial disease: (6) HTN (hypertension): (7) Hypertension, uncontrolled: (8) Obstructive sleep apnea: (9) Gastroenteritis: (10) Renal artery stenosis: Plan 59yo female presented with n/v, intractable RUQ pain, diarrhea and dehydration and found to be hypertensive. Recent abx for diverticulitis reported, WBC elevation but ?2nd to n/v. Has been afebrile but did have significant other with low grade temp and feeling ill but no diarrhea for him. Reports increased marijuana use for poor PO intake/appetite as of recently and had worsened symptoms with such. On eliquis/plavix at baseline for hx PAD/femoral artery reconstitution with Dr Maynard in 2020 and has not been on PPI therapy. Biofire negative. Was HTN on admission but then hypotensive following treatment and required 250cc NSS bolus and was continue on IVF x 1L overnight with pepcid IV x 1 and protonix twice daily with pain control and antiemetics as needed Ddx: cyclic vomiting, viral enteritis, biliary colic, HTN urgency (or HTN caused by n/v/GI sx), gastritis #Nausea, vomiting, RUQ abdominal pain, dehydration- suspected gastritis vs cyclic vomiting CTAP w/ fatty liver, GB w/ stones but no acute dewey. US obtained and stones noted but no acute dewey Given Protonix IV BID, pepcid x 1 - continue ppi bid - rec continued use [place] [facility] Reported improvement after some time with capsaicin cream in ER however and w/ increased marijuana use does increase risk/concerns for relation to underlying cyclic vomiting and rec to avoid Stool pcr/cdiff ordered - no further diarrhea Zofran/pain control available if needed Diet advanced and tolerating Also noting prior elevated plasma metanephrons w/ hx cardiomyopathy in ICU last year -- 24hr urine collection has been ordered and likely benefit from ref to endocrinology at discharge. Also, monitor for any relation to certain foods, could also consider ref to surgery at [facility] to discuss possible elective dewey if ongoing issues with RUQ pain and known stones. Also could entertain MRCP but has improved with PPI/IVF and capsacin Electrolyte replacement ordered - likely from prior GI losses/PO intake. Monitor in AM and if continues to feel well likely can dc on PPI BID and avoidance of marijuana to be encouraged. 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 Maynard -remains on eliquis/plavix. #DM II- decent control, has been off metformin per prior recs for GI distress. BSG AC/HS and SSI ordered. Adjustment as needed Hx TIA, seizures -- BP control as above, 250cc bolus/1L ordered. continue eliquis/plavix, keppra. No seizure activity witnessed/reported DVT proph: continue Eliquis BID Dispo: continued inpatient stay off IVF hydration and continued PPI to ensure staying stable and collection of stool testing given repeat ER visits to ensure work-up complete. Likely benefit from GI ref at dc +/- surgical ref for elective dewey in future but suspect likely related to gastritis +/- cyclic vomiting from marijuana use downgrade this afternoon off telemetry Admission and Anticipated Discharge Date Admission Date: February 08, 2025 Supervising Physician Co-Signing Physician Notes The patient was not seen by me. The chart was reviewed. Case discussed with PRASAD Lee. Agree with assessment and plan Subjective Evaluated this afternoon, doing well. No further pain. No further diarrhea. Tolerating diet. Discussed capsacin cream - she reports didn't work initially but then did find relief with such. Discussed that weighs for relation to marijuana, rec to cut back. Also discussed likely underlying gastritis w/ eliquis/plavix use and has been provided/continued. Urine studies for catecholamine collection started and will monitor overnight w/ continued treatment and plan for dc in AM if symptoms remain controlled. BP borderline but asymptomatic from such. No further IVF and will monitor for any issues. Physical Exam 2 Physical Exam: General: 59yo female, resting in bed, appears/reporting feeling improved HEENT: head atraumatic, normocephalic, mm much improved, trachea midline Resp; even/unlabored, diminished in the bases/associated crackles but no rales/wheezing, on room air CV: regular, no significant m/r/g no pitting edema, pulse present, cap refill wnl GI: +BS, slightly slow/distended but soft, no further significant ruq/epigastric tenderness, prior abd scar from aaa repair noted no novak MSK/Neuro: not confused, answering questions appropriately, moves all extremities, generalized weakness improving- but nonfocal Psych: Aox3, cooperative but fatigued appearing Results & Data Results & Data Vital Signs (Past 12 Hours) Vital Signs Temp 36.7 C 02/09/25 11:11 Pulse 67 02/09/25 11:11 Resp 18 02/09/25 11:11 BP 101/69 02/09/25 11:11 Pulse Ox 98 02/09/25 11:11 O2 Del Method Room Air 02/09/25 11:11 O2 Flow Rate 2 02/08/25 23:58 Intake & Output 02/08/25 02/09/25 02/09/25 18:59 06:59 18:59 Intake Total 500 / 2700 2200 / 2700 1100 / 1100 Balance 500 / 2700 2200 / 2700 1100 / 1100 Weight 77.8 kg Intake: IV 500 / 2500 2000 / 2500 1100 / 1100 D5w and Lactated Ringers 1,000 1000 / 1000 ml @ 80 mls/hr IV .[id number] [facility] Rx#:[id number] Magnesium Sulfate / D5w 1 gm In 100 / 100 100 ml @ 50 mls/hr IV ONE ONE Rx#:[id number] Plasma-Lyte A 500 ml @ 999 mls/ 500 / 1000 500 / 1000 hr IV .Q31M ONE Rx#:[id number] Sodium Chloride 0.9% 1,000 ml @ 1250 / 1250 999 mls/hr IV .Q1H1M [facility] Rx#: [id number] Sodium Chloride 0.9% 250 ml @ 250 / 250 999 mls/hr IV .Q16M ONE Rx#: [id number] Oral 200 / 200 Other: # Unmeasured Voids 1 Weight Measurement Method Built in [facility] Laboratory Results 02/09/25 04:02 02/09/25 04:02 Diagnostic Findings Abdomen/Pelvis CT 02/08/25 12:[address] WITH IV CONTRAST CT DOSE: 1090.08 mGy.cm HISTORY: Acute right lower quadrant abdominal pain with nausea and vomiting RLQ TTP, nausea, vomiting, eval for appendicitis TECHNIQUE: Multiaxial CT images of the abdomen and pelvis were performed following the IV administration of 93 cc of Optiray, A dose lowering technique was utilized adhering to the principles of ALARA. COMPARISON STUDY: CT abdomen and pelvis 12/15/2024 FINDINGS: Mild dependent subsegmental bibasilar atelectasis. No pneumatosis or pneumoperitoneum. Unremarkable spleen, pancreas, and adrenal glands. Cholelithiasis without CT evidence of acute cholecystitis. No biliary ductal dilation. Unremarkable liver. Patency of the hepatic and portal veins. No hydronephrosis. Indeterminate subcentimeter hypodensity of the mid pole right kidney, possibly a small angiomyolipoma. Unremarkable urinary bladder. Hysterectomy. Atherosclerosis of the aorta and branch vessels. 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 Fluid surrounding the graft is unchanged from the prior study. No lymphadenopathy. Unchanged appearance of the [place] iliac arteries. There is no bowel obstruction or bowel wall thickening. Colonic diverticulosis without acute diverticulitis. No ascites or mesenteric inflammation. Normal appendix. 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 Degenerative changes of the spine, pelvis and hips. Small supraumbilical midline abdominal wall hernia, opening of 1.9 cm. A few additional smaller fat filled midline hernias are also noted. IMPRESSION: 1. No acute intra-abdominal or intrapelvic abnormality. 2. No bowel obstruction or bowel wall thickening. Normal appendix. 3. Colonic diverticulosis. 4. Cholelithiasis. 5. Chronic findings as above. ACT 112: Negative or not required by law. The above report was generated using voice recognition software. It may contain grammatical, syntax or spelling errors. Electronically signed by: Álvaro Jimenez M.D. 02/08/2025 2:07 PM Abdomen Ultrasound 02/08/25 14:53 Clinical history: Follow-up examination Technique: Sonography was performed of the right upper quadrant of the abdomen Comparison is made to the CT dated 12/15/2024 Findings: There is fatty infiltration of the liver. There is suspected focal sparing of fatty infiltration adjacent to the gallbladder. No definite liver mass is seen. There is normal directional flow in the main portal vein There are apparent small gallstones. The gallbladder has a normal wall thickness and no adjacent fluid is seen. No definite sonographic Franklin sign was detected. There is no intrahepatic or extrahepatic bile duct dilatation. The common bile duct measures 6 mm The right kidney measures 10 cm in length. There is no hydronephrosis. No definite renal calculus or mass is seen The visualized pancreas, aorta, and IVC appear unremarkable. No ascites is seen Impression: 1. Fatty infiltration of the liver 2. Cholelithiasis without definite acute cholecystitis ACT 112: Positive. There are findings on this exam that require communication between the performing entity and the patient following Patient Test Result Information Act ([place] ACT 112) guidelines. Electronically signed by Andrea Bloom 02-08-2025 7:56 PM PG Care Time/CCT Total # of Minutes Spent Total Time Spent with Patient: Total time spent is greater than 50% in coordination of care (as documented) at patient's floor/unit and/or counseling patient: Coding Level of Care Code 65820 SUB INP/OBS CARE 3/50MIN Diagnoses Nausea vomiting and diarrhea R11.2; R19.7 RUQ pain R10.11 Diabetes mellitus E11.9 Diabetes mellitus complication detail: with other circulatory complications Diabetes mellitus long term care phlebotomist insulin use: without long term care phlebotomist use Diabetes mellitus type: type 2 Seizure disorder G40.909 Peripheral arterial disease I73.9 HTN (hypertension) I10 Hypertension, uncontrolled I10 Obstructive sleep apnea G47.33 Gastroenteritis K52.9 Renal artery stenosis I70.1 (3) Diabetes mellitus Diabetes mellitus complication detail: with other circulatory complications D iabetes mellitus long term care phlebotomist insulin use: without long term care phlebotomist use Diabetes mellitus type: type 2
[2025-02-09 08:02] LABS: Creatine Kinase 24.0 U/L (26-192)
[2025-02-09] MEDS: POTASSIUM CHLORIDE CRTAB 20 MEQ TABCR PO STA (08:16)
[2025-02-09] MEDS: MAGNESIUM SULFATE / D5W 1 GM/100 ML BAG IV ONE (08:16)
[2025-02-09] MEDS: CHOLECALCIFEROL 125 MCG (5,000 UNITS) TAB PO SCH (08:17)
[2025-02-09] MEDS: VENLAFAXINE HCL XR 75 MG CAPXR PO SCH (08:17)
[2025-02-09] MEDS: VENLAFAXINE HCL XR 150 MG CAPXR PO SCH (08:17)
[2025-02-09] MEDS: ACETAMINOPHEN 1,000 MG/100 ML VIAL IV PRN (19:54)
[2025-02-09] MEDS: CAPSAICIN CR 0.075% 60 GM TUBE EXT SCH (20:48)
[2025-02-10 06:44] LABS: Anion Gap 7.0 (3-11); Blood Urea Nitrogen 16.0 mg/dl (6-23); Calcium 9.1 mg/dl (8.6-10.3); Carbon Dioxide 27.0 mmol/L (21-32); Chloride 108.0 mmol/L (98-107); Creatinine Clr Calc Pharmacy 92.2 ml/min; Glucose 88.0 mg/dl (70-99(Fasting)); Magnesium 2.1 mg/dl (1.7-2.4); Potassium 3.4 mmol/L (3.5-5.1); Sodium 142.0 mmol/L (136-145)
[2025-02-10 07:26] VITALS: BP 130/91; RESP 16; TEMP 98.1; O2SAT 96
[2025-02-10] MEDS: ACETAMINOPHEN 325 MG TAB PO PRN (08:14)
[2025-02-10] MEDS: POTASSIUM CHLORIDE CRTAB 20 MEQ TABCR PO ONE (08:23)
[2025-02-10] MEDS: POTASSIUM CHLORIDE CRTAB 20 MEQ TABCR PO SCH (10:59)
--- NOTE | 2025-02-10 11:26 | Discharge Summary ---
Discharge Summary Date of Service February 10, 2025 Principal Dx & Hospital Course #1 = Principal Diagnosis (1) Nausea vomiting and diarrhea: (2) RUQ pain: (3) Diabetes mellitus: (4) Seizure disorder: (5) Peripheral arterial disease: (6) HTN (hypertension): (7) Hypertension, uncontrolled: (8) Obstructive sleep apnea: (9) Gastroenteritis: (10) Renal artery stenosis: Plan #Hypertensive emergency on presentation #Labile hypertension, history of PRES #History of stress cardiomyopathy followed by Dr. Rodriguez, recent EF apx 40% - resolved and now well controlled on current BP meds. Suspect she was not keeping her usual meds down, beta blaine rebound, aggravated by distress from nausea/vomiting. We noted that plasma metanephrines were elevated during ICU admission 09/2023. She had PRES at the time. Previous to that metanephrines had been normal, checked several times. Completed 24h urine collection for metanephrines this AM, results are pending. Previous elevation could have been related to stress from critical illness. Should be referred to endocrinology if remaining elevated. She has had a lot of abdominal imaging with contrast CT and US recently and no suspicious lesions were noted. -continue carvedilol and entresto #Nausea, vomiting, RUQ abdominal pain, dehydration- frequent admissions and ED evaluations for same in 2024. probable cannabis hyperemesis syndrome carries diagnosis of cyclic vomiting syndrome, is a frequent cannabis user and use has increased, also has chronic nausea which isn't part of [facility], so this may actually be [facility] -advised cannabis cessation, offered quit resources, capsaicin cream did help the nausea -she seems precontemplative on quitting -consider gastroparesis, however, her diabetes is not longstanding or severe -she does have cholelithiasis without acute cholecystitis. Could be cause of abdominal pain and some nausea, but the nausea/vomiting component seems out of proportion to biliary colilc. Referral to general surgery made. -symptoms have abated, eating and taking po meds -Rx given for ondansetron, recommended continuing capsaicin, prescribed seroquel PRN nausea since seroquel and haloperidol can be more effective than traditional antiemetics in [facility] #gastritis - component of symptoms improved with PPI - continue bid for a week then daily #PAD- Hx bilateral external iliac artery occlusion with common femoral artery reconstitution-02/2021 aorta with runoff CTA, follows with Dr. Person and remains on eliquis/plavix. #DM II- decent control, has been off metformin per prior recs for GI distress. BSG AC/HS and SSI ordered. Adjustment as needed Hx TIA, seizures - continue eliquis/plavix, keppra. Admission HPI Per Admitting Provider 59yo female with PMHx significant for takotsubo cardiomyopathy (follows [facility]), HTN, PRESS, cyclic vomiting disorder/marijuana use presented with abdominal pain, intractable nausea/vomiting and diarrhea and inability to keep anything down. Evaluated in A12B, ongoing RUQ/epigastric discomfort. No vomiting at present. Reports RUQ pain, has been using more marijuana recently due to poor appetite without improvement. She notes her significant other recently feeling ill/low grade temp but no diarrhea. She notes having c-scope and having abx for diverticulitis following and ongoing diarrhea. Did not take her pills this morning - Significant HTN on admission 2nd to not taking meds this morning due to n/v and given Hydralazine. CTAP notes GB w/ stones but no acute dewey, US ordered. Discussed marijuana related vs viral vs infectious vs bilary colic vs other. Has reported being OFF her metformin per prior recs for GI distress.Will obtain stool studies as well as biofire. Is on Eliquis/Plavix for Hx PAD/CAD and had abdominal aortic repair by Dr Person in the past. Also had been without her venlafaxine as was increased from 150mg to 225mg and insurance company not willing to cover the refill, but reports has been sorted out and is taking. No CP but does have some rib discomfort from vomiting. Troponin negative on high sensitivity testing. No further smoking cigarettes ~12 yrs, does smoke marijuana, has increased use for nausea/poor appetite without improvement. ER Course: morphine, labetalol, coreg x 1, zofran, tylenol, 500c plasma lyte. Medicated for CTAP w/ steroid/benadryl given allergy. CTAP noting no acute intraabdominal pathology -- report w/ Indeterminate subcentimeter hypodensity of the mid pole right kidney, possibly a small angiomyolipoma --? pheo *Notable w/ elevated BP -- prior labs w/ plasma metanephrines/norepinephrine elevated Sep 2023-- she does endorse sx of orthostasis, feeling like going to pass out, flushing, diaphoresis and HTN, Weight loss.. Typically BP 120/80 on her meds but w/ hx takotsubo's, concerning for ?underlying pheochromocytoma and will discuss for further eval and review imaging. Hx takotsubo cardiomyopathy, follows [facility], EF improved on repeat and has been on entresto. Questions/concern addressed at this time. Full code as long as meaningful/quality of life. Discharge Exam Last 24h vitals reviewed GEN: no acute distress, sitting in bed, appears comfortable HEENT: pupils equal, sclerae anicteric, moist MM RESP: normal WOB ABD: nondistended : no novak SKIN: warm and dry, no generalized rashes NEURO: AOx person, place, and situation. Face symmetric, speech normal, moves 4 ext spontaneously and equally Discharge Plan Discharge Items Patient Disposition: Home - Self-Care Reason For Visit: ABDOMINAL PAIN, INTRACTABLE NAUSEA/VOMITING Discharge Diagnosis: cannabinoid hyperemesis syndrome, gastritis Condition on Discharge: Fair Activity: Resume your previous activity Non-emergency contact: Primary Care Provider Call non-emergency contact if: you have any medication questions and your symptoms worsen Follow-up/Referrals: Teena Killian DO [Primary Care Provider] - 02/22/25 11:00 am Diet: Carb Consistent or DM2 Addtl Attending Provider Instructions: You have had recurrent episodes of nausea/vomiting and abdominal pain This may be cannabis hyperemesis syndrome, which is quite common in [employer] cannabis users - especially for people who use cannabis several times a week or more People who actually stop using cannabis can have total resolution of symptoms Because cannabis stays in your body a long time, you need to try stopping for 6- 8 weeks before you know whether it will help. Even small amounts can trigger it -try using capsaicin cream for symptoms - this is available in the drugstore over the counter -see if quetiapine helps your nausea and vomiting symptoms Some people with diabetes have a different condition with similar symptoms called gastroparesis - poor stomach emptying related to diabetes effect on GI nerves You may have gastritis (stomach inflammation) and we are trying a course of pantoprazole We sent a urine test to recheck abnormal labs from when you were in ICU in 2023 (serum metanephrines). This checks for a rare cause of severe high blood pressure. Most likely the test will come back normal, but if it remains abnormal your doctor can refer you to endocrinology for follow up It was a pleasure taking care of you in the hospital, Brigitte Hawley MD Pending Studies at Discharge: Yes Stand-Alone Forms: My [facility], Smoking Cessation Medications and DC Order Prescriptions: New Zostrix 0.033 % Cream 1 applic EXT DAILY PRN (Reason: nausea, abdominal pain) Qty: 0 0RF Rx Instructions: buy over the counter quetiapine 25 mg tablet 25 mg PO Q8H PRN (Reason: nausea and vomiting) Qty: 30 0RF ondansetron 4 mg tablet,disintegrating 4 mg PO Q6H PRN (Reason: nausea and vomiting) Qty: 30 0RF pantoprazole 40 mg tablet,delayed release (DR/EC) See Rx Instructions .ROUTE .COMPLEX Qty: 37 0RF Rx Instructions: 1 tab twice a day for 7 days, then decrease to 1 tab daily Continued (DME) blood-glucose meter [FreeStyle Lite Meter] Kit See Rx Instructions .Route Qty: 1 0RF Rx Instructions: Check blood glucose once per day (DME) FreeStyle Lite Strips Strip See Rx Instructions .Route Qty: 100 0RF Rx Instructions: Use with meter to check BG once per day (DME) lancets Misc See Rx Instructions .Route Qty: 100 0RF Rx Instructions: use with meter to heck BG once per day Eliquis 5 mg tablet 5 mg PO BID Qty: 180 1RF levetiracetam [Keppra] 1,000 mg tablet 1,000 mg PO BID Qty: 180 3RF amitriptyline 25 mg tablet 25 mg PO HS Qty: 90 1RF clopidogrel [Plavix] 75 mg tablet 75 mg PO HS Qty: 90 1RF Patient Comments: PER DR PERSON OFFICE, TOLD TO STOP 7 DAYS BEFORE PROCEDURE carvedilol 25 mg tablet 25 mg PO BID Qty: 60 2RF Rx Instructions: must administer with a meal/food nitroglycerin 0.4 mg tablet, sublingual 0.4 mg sublingual UD PRN (Reason: Chest Pain) venlafaxine 150 mg capsule,extended release 24hr 150 mg PO DAILY Qty: 90 3RF Rx Instructions: Take 150 mg for one week before adding 75 mg capsule for total of 225 mg daily. venlafaxine 75 mg capsule,extended release 24hr 75 mg PO DAILY Qty: 90 3RF Rx Instructions: Take along with 150 mg tab for total of 225 mg daily rosuvastatin [Crestor] 40 mg tablet 40 mg PO HS Qty: 90 3RF cholecalciferol (vitamin D3) [Vitamin D3] 125 mcg (5,000 unit) Tablet 125 mcg PO DAILY potassium chloride 20 mEq tablet extended release 20 meq PO QAM Entresto 97-103 mg tablet 1 tab PO BID Discharge Orders: Discharge Order (Routine); Ordered 02/10/25 Ordered By: Brigitte Hawley Admission Data Admit Date/Time: 02/08/25 18:22 Attending Provider: Brigitte Hawley Admit Provider: Franck Hager Primary Care Provider: Teena Killian Other Providers: Franck Hager Other Interventions: Discharge Summary Assessment (RN) Last Done: 02/10/25 11:56 Hospital Stay Data Consultations 02/08/25 17:31 ED Decision to Admit Stat Diagnostic Imagining Performed 02/08/25 12:26 CT abd pelvis IV con only Stat 02/08/25 14:53 US abdomen limited Stat Pending Results Patient Have Any Pending Studies at Discharge: Yes Discharge Instructions Given to Patient (Per Discharging Provider) You have had recurrent episodes of nausea/vomiting and abdominal pain This may be cannabis hyperemesis syndrome, which is quite common in regional [employer] cannabis users - especially for people who use cannabis several times a week or more People who actually stop using cannabis can have total resolution of symptoms Because cannabis stays in your body a long time, you need to try stopping for 6- 8 weeks before you know whether it will help. Even small amounts can trigger it -try using capsaicin cream for symptoms - this is available in the drugstore over the counter -see if quetiapine helps your nausea and vomiting symptoms Some people with diabetes have a different condition with similar symptoms called gastroparesis - poor stomach emptying related to diabetes effect on GI nerves You may have gastritis (stomach inflammation) and we are trying a course of pantoprazole We sent a urine test to recheck abnormal labs from when you were in ICU in 2023 (serum metanephrines). This checks for a rare cause of severe high blood pressure. Most likely the test will come back normal, but if it remains abnormal your doctor can refer you to endocrinology for follow up It was a pleasure taking care of you in the hospital, Brigitte Hawley MD Total Time Total Time Spent Total Time Spent (In Minutes): I personally spent: 35 minutes today on clinical care activities including: reviewing chart notes and vital signs reviewing documentation from previous hospitalizations and ED visits as well as primary care notes reviewing previous imaging studies examining and counseling the patient writing prescriptions, discharge instructions documentation Coding Level of Care Code 69603 INP/OBS DISCH >30 MIN Diagnoses Nausea vomiting and diarrhea R11.2; R19.7 RUQ pain R10.11 Diabetes mellitus E11.9 Diabetes mellitus complication detail: with other circulatory complications Diabetes mellitus [employer]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
[2025-02-10 11:57] VITALS: PULSE 61
== END 2025-02-10 13:15 | disposition home or self-care (01) ==
LOC: SUATTDRO → ED 11:51 → EDINP 11:51 → SUATTDRO 18:22 → 2E 02-09 02:01 → 3N 02-10 02:46

== ENCOUNTER 2025-03-17 08:58 | Observation (INO) ==
--- NOTE | 2025-03-11 11:25 | Anesthesiology Consultation ---
Date of Service March 11, 2025 Assessment & Plan Chart Review Chart Review: Acceptable Risk for Surgery Consults Requested none History Surgery Operation Date: 03/17/25 10:20 Proposed Procedures p Laparoscopic Cholecystectomy with Cholangiogram, Possible Open - Jerod Stewart MD, FACS Height/Weight Height: 5 ft 4 in Weight: 76.204 kg Allergies Allergy/AdvReac Type Severity Reaction Status Date / Time napoles Allergy Intermediate Hives Verified 03/10/25 13:34 (green/hartman beans) broccoli Allergy Intermediate Bruising Verified 03/10/25 13:34 doxycycline Allergy Intermediate Hives, Verified 03/10/25 13:34 vomiting Iodinated Contrast Media Allergy Intermediate Large Verified 03/10/25 13:34 hives, vomiting, "feeling hot" iodine Allergy Intermediate Hives, Verified 03/10/25 13:34 vomiting latex Allergy Intermediate Rash Verified 03/10/25 13:34 loperamide Allergy Intermediate Hives, Verified 03/10/25 13:34 vomiting meperidine Allergy Intermediate Hives, Verified 03/10/25 13:34 vomiting strawberry Allergy Intermediate Hives Verified 03/10/25 13:34 tomato Allergy Intermediate Hives Verified 03/10/25 13:34 prochlorperazine Allergy Mild Nausea, Verified 03/10/25 13:34 vomiting, itchiness polyethylene glycol AdvReac Intermediate Elevated Verified 03/10/25 13:34 [From Golytely] BP/Vomiting polyethylene glycol 3350 AdvReac Intermediate Elevated Verified 03/10/25 13:34 [From Golytely] BP/Vomiting potassium chloride AdvReac Intermediate Elevated Verified 03/10/25 13:34 [From Golytely] BP/Vomiting sodium [From Golytely] AdvReac Intermediate Elevated Verified 03/10/25 13:34 BP/Vomiting sodium bicarbonate AdvReac Intermediate Elevated Verified 03/10/25 13:34 [From Golytely] BP/Vomiting sodium chloride AdvReac Intermediate Elevated Verified 03/10/25 13:34 [From Golytely] BP/Vomiting sodium sulfate AdvReac Intermediate Elevated Verified 03/10/25 13:34 [From Golytely] BP/Vomiting Medications Home Medications Medication Instructions Recorded Confirmed Last Taken nitroglycerin 0.4 mg sublingual 0.4 mg sublingual UD PRN Chest Pain 06/07/24 03/10/25 12/03/24 tablet blood sugar diagnostic (FreeStyle #100 ea 06/17/24 03/09/25 Unknown Lite Strips) blood-glucose meter (FreeStyle #1 ea 06/17/24 03/09/25 Unknown Lite Meter kit) lancets #100 ea 06/17/24 03/09/25 Unknown apixaban 5 mg tablet (Eliquis) 5 mg PO BID #180 tabs 10/11/24 03/10/25 02/07/25 levetiracetam 1,000 mg tablet 1,000 mg PO BID #180 tabs 10/18/24 03/10/25 02/07/25 (Keppra) rosuvastatin 40 mg tablet (Crestor) 40 mg PO HS #90 tabs 11/10/24 03/10/25 02/07/25 cholecalciferol (vitamin D3) 125 125 mcg PO DAILY 12/08/24 03/10/25 02/07/25 mcg (5,000 unit) tablet (Vitamin D3) potassium chloride 20 mEq 20 meq PO QAM 12/08/24 03/10/25 02/07/25 tablet,extended release amitriptyline 25 mg tablet 25 mg PO HS #90 tabs 12/20/24 03/10/25 02/07/25 clopidogrel 75 mg tablet (Plavix) 75 mg PO HS #90 tabs 01/04/25 03/10/25 02/07/25 capsaicin 0.033 % topical cream 1 applic EXT DAILY PRN nausea, 02/10/25 03/10/25 Unknown (Zostrix) abdominal pain #0 grams ondansetron 4 mg disintegrating 4 mg PO Q6H PRN nausea and 02/10/25 03/10/25 Unknown tablet vomiting #30 tabs carvedilol 25 mg tablet 25 mg PO BID #60 tabs 02/22/25 03/10/25 Unknown pantoprazole 40 mg tablet,delayed 40 mg PO QAM gastritis 02/22/25 03/10/25 Unknown release (Protonix) sacubitril 97 mg-valsartan 103 mg 1 tab PO BID #60 tabs 02/22/25 03/10/25 Unknown tablet (Entresto) ezetimibe 10 mg tablet 10 mg PO QAM 03/10/25 03/10/25 Unknown quetiapine 25 mg tablet (Seroquel) 25 mg PO Q8H PRN nausea and 03/10/25 03/10/25 Unknown vomiting venlafaxine 150 mg 150 mg PO QAM 03/10/25 03/10/25 Unknown capsule,extended release 24 hr venlafaxine 75 mg capsule,extended 75 mg PO QAM 03/10/25 03/10/25 Unknown release 24 hr Past Medical History Medical History (Updated 03/10/25 @ 14:27 by Marsha Carson RN) Hyperlipidemia GERD (gastroesophageal reflux disease) Hypertension Chronic diarrhea "not as bad as when I had my colonoscopy 12/2024" Carotid stenosis < 50% stenosis B/L per US 12/16/18 CAD (coronary artery disease) no stents - Mild-moderate non-obstructive CAD per 2017 cardiac cath - Dr Rodriguez Cholelithiasis Reason for procedure 03/17/25 Vertigo Cerebellar stroke 2022? followed with [facility] Neurology in past no longer with a neurologist - no residuals Obstructive sleep apnea mod-severe per PCP records (does not have device) - has not had sleep study yet due to current medical complications, was to have had testing 01/2025 Diverticulosis Difficult intravenous access Pulmonary emphysema controlled as per patient - quit tobacco use Renal artery stenosis s/p multiple vascular surgeries with Dr Maynard Intractable nausea and vomiting most recently 02/08/25-02/10/25 [facility] IP - [facility] ER 12/03/24 and 12/06/24 History of hypertensive crisis Multiple - Dr Rodriguez Cardiology Gastroenteritis multiple incidents - recently [facility] 02/08/25 - 02/10/25 Diabetes mellitus, type 2 Oral - currently on hold History of chest pain as per patient has not needed nitro recently and denies any chest pain at this time. recently took nitro 12/03/24 went to [facility] ER History of stroke 2022? followed with [facility] Neurology in past no longer with a neurologist - no residuals Abdominal pain Chronic - most recently 02/08/25-02/10/25 [facility] IP [facility] ER 12/03/24 & 12/06/24 Decreased appetite as per patient since 07/2024 until 12/2024 went from 208lbs to 160lbs - as of 03/09/25 office visit up to 168lbs Unintentional weight loss as per patient since 07/2024 until 12/2024 went from 208lbs to 160lbs - as per patient 03/09/25 appt was 168lbs History of recent hospitalization 02/08/25-02/10/25 & 12/03/24 & 12/06/24 [facility] ER for abdominal pain, nausea, vomiting. Acute upper gastrointestinal bleeding hx - pt denies at this time Elevated troponin Hypokalemia Hypophosphatemia Tachycardia hx Postoperative nausea Seizures 2018 r/t hypertensive emergency > encephalopathy. last seizure 2019 - [facility] no neurologist Hematemesis hx - pt denies any issues currently History of COVID-19 03/18/22, [facility] [place], hospitalized day after diagnosis due to vomiting blood, discharged on 03/22/22; fever, vomiting, body chills and aches, diarrhea > resolved currently. Ischemia of right lower extremity Depression Proteinuria hx Cyclic vomiting syndrome still uses medical marijuana Hypercalcemia PRES (posterior reversible encephalopathy syndrome) has since caused seizures that started in 2018. following with PCP, last seizure per pt 08/2019 per PCP records Cannabinoid hyperemesis syndrome History of diverticulitis of colon Most recent 04/2022 - just had CT Abd/Pelvis at [facility] ER 12/2024 - nothing notated Transient cerebrovascular ischemia possibly 2022? patient unsure of when - did follow up with [facility] Neurology, no longer does - no residuals Cervical disc disorder Full ROM per pt Takotsubo cardiomyopathy 2017. Admitted [facility], full cardiac workup including cath. EF at the time 40%, now subsequent echos. Follows with Dr. Rodriguez NSTEMI (non-ST elevated myocardial infarction) 2017 - no stents - Dr Rodriguez Cardiology "I had a couple" as per patient Past Family History Family History (Updated 03/09/25 @ 16:28 by Stephanie Velazco RN) Father Family history of stomach cancer Malignant neoplasm of esophagus Stomach cancer Myocardial infarction Stroke Heart disease Uncle Throat cancer Family history of cancer FAMILY HISTORY OF CANCER - UNCLE - [employer] FAMILY HISTORY OF CANCER - AUNT - ? KIND Grandmother (Maternal) Bone cancer Breast cancer Mother No problems noted. Brother Lung cancer Grandmother Diabetes Other Family history of diabetes mellitus No family history of adverse response to anesthesia No pertinent family history Denies family history of Colon cancer Ovarian cancer Prostate cancer Crohn's disease IBD (inflammatory bowel disease) Past Surgical History Surgical History (Updated 03/10/25 @ 14:21 by Marsha Carson RN) History of colonoscopy (12/2024) History of vascular surgery (09/2022) Right Fem to Left Fem Bypass History of anesthesia reaction Low O2 sats during colonoscopy 04/2022 at [facility] and post-procedure elevated BP. Per post-op anesthesia progress note, O2 96-100% RA and "Pt has increased BP 2ndary to abdominal pain. Pt also has nausea w/ dry heaves. Pt to have CT scan per Dr Patten." as per patient most recent colonoscopy 12/2024 had issues post procedure that ended with a trip to [facility] ER History of tooth extraction Upper/Lower Dentures History of cataract surgery bilateral Status post surgery (09/2021) RLE thrombectomy S/P aortobifemoral bypass surgery Sep 2021 [facility] History of esophagogastroduodenoscopy (EGD) (05/2024) H/O cervical spine surgery ACDF C4-7 Dr. Wells: Grade 1 view, Bojorquez#2 and ETT#7.5 atraumatic x 1. No issues per anesthesia postop progress note. ROM WNL History of cardiac cath 2017 > no stents - Dr Rodriguez Cardiology History of ovarian cystectomy History of hernia surgery right inguinal hernia repair History of hysterectomy Social History Smoking Status: Former smoker tobacco type: cigarettes Do You Dip or Chew Tobacco: No Smoking End Date: 10 years ago Hx Alcohol Use: No Alcohol type: beer alcohol intake frequency: holidays/special occasions only Hx Substance Use: Yes substance use type: other Substance Use Type Other:: Medical Mj - Smoke Flower Last Used Substance: Unknown Last Used Substance Other:: Advised
[2025-03-17] MEDS ORDERED: ATROPINE SULFATE 0.1 MG/ML 10ML SYR IV PRN (09:26)
[2025-03-17] MEDS ORDERED: FLUMAZENIL 0.1 MG/1 ML 10 ML VIAL IV PRN (09:26)
[2025-03-17] MEDS ORDERED: ONDANSETRON INJ 2 MG/ML 2 ML VIAL IV PRN (09:26)
[2025-03-17] MEDS ORDERED: NALOXONE HCL 0.4 MG/1 ML VIAL/CARP IV PRN (09:26)
[2025-03-17] MEDS ORDERED: MIDAZOLAM HCL 1 MG/ML 2ML VIAL ONE (09:30)
[2025-03-17] MEDS ORDERED: LIDOCAINE 2% 2 ML VIAL/AMP(20MG/ML) INFIL ONE (09:30)
[2025-03-17] MEDS ORDERED: PROPOFOL IV EMULSION 10 MG/ML 20 ML VIAL IV ONE (09:30)
[2025-03-17] MEDS ORDERED: ROCURONIUM BROMIDE 10 MG/ML 5 ML VIAL IV ONE (09:30)
[2025-03-17] MEDS: LACTATED RINGER'S 1,000 ML IV SCH (09:31)
[2025-03-17] MEDS ORDERED: ceFAZolin 330 MG/ML 1 GM VIAL ONE (09:33)
[2025-03-17] MEDS ORDERED: KETAMINE HCL 10MG/ML SYR ONE (09:54)
--- NOTE | 2025-03-17 10:07 | History & Physical Bridge Note ---
Date of Service March 17, 2025 History & Physical Bridge Note I have examined the patient, reviewed the History & Physical and in the interval since the performance of the History & Physical I have noted the following changes of clinical significance: no changes noted so at bedside all question answered
[2025-03-17] MEDS ORDERED: ACETAMINOPHEN 1000 MG/100 ML IV IV ONE (10:18)
[2025-03-17] MEDS ORDERED: ONDANSETRON INJ 2 MG/ML 2 ML VIAL ONE (10:40)
[2025-03-17] MEDS ORDERED: DEXAMETHASONE SOD INJ 4 MG/ML VIAL ONE (10:40)
[2025-03-17] MEDS ORDERED: HYDROmorphone INJ 1 MG/ML SYRINGE ONE (10:53)
[2025-03-17] MEDS: IOVERSOL 50ml INJ ONE (11:28)
[2025-03-17] MEDS ORDERED: SUGAMMADEX SODIUM 200 MG/2 ML VIAL IV ONE (11:34)
--- NOTE | 2025-03-17 11:36 | Fluoroscopy Report ---
[place] cholangiogram OR CLINICAL HISTORY: CHOLANGIOGRAM Fluoroscopy time: 7 seconds. COMPARISON STUDY: None FINDINGS: Contrast progresses normally through the common bile duct to the small bowel with no eviden ce of common bile duct stones seen. IMPRESSION: Fluoroscopy for intraoperative cholangiogram. ACT 112: Negative or not required by law. Electronically signed by: Chente Roth M.D. 03/17/2025 11:34 AM
--- NOTE | 2025-03-17 12:04 | Post Operative Brief Note ---
Immediate Post Op Note Date of Surgery March 17, 2025 Pre & Post Diagnosis Operation Date: 03/17/25 10:20 Pre-Op Diagnosis: Cholelithiasis Post-Op Diagnosis: Cholelithiasis I identified the patient and participated in the time-out.: Yes Procedure Operation Date: 03/17/25 10:20 Actual Procedures p Laparoscopic Cholecystectomy with Cholangiogram(Not Applicable) - Jerod Stewart MD, FACS Surgeon Jerod Stewart MD, FACS Stiff Neck Loader Ambar PARHAM Estimated Blood Loss 15 Findings Consistent with Post-Op Diagnosis Drains Rodo Drain (19fr) and Barrett-Britt Drain
[2025-03-17] MEDS: LIDOCAINE 1%/EPINEPHRINE 1:100,000 50 ML VIAL ONE (12:10)
--- NOTE | 2025-03-17 12:21 | Operative Report ---
PG Post Operative Report Pre & Post Diagnosis Operation Date: 03/17/25 10:20 Pre-Op Diagnosis: Cholelithiasis Post-Op Diagnosis: Cholelithiasis I identified the patient and participated in the time-out.: Yes Procedure Operation Date: 03/17/25 10:20 Actual Procedures p Laparoscopic Cholecystectomy with Cholangiogram(Not Applicable) - Jerod Stewart MD, FACS The patient was brought into the operative theater supine position general endotracheal anesthesia systemic antibiotics on board the abdomen was prepped Betadine solution and properly draped timeout was had patient identified the patient had multiple abdominal surgeries therefore first attempt to enter the abdomen was in the right upper quadrant placing a Veress needle but the Veress needle was not long enough to enter the abdominal cavity due to the significant subcutaneous fatty tissue therefore at this time made an incision supraumbilically lateral to the midline incision approximately 2 cm dissected down to the abdominal wall where we elevated the fascia of the abdominal wall with Amalia clamps a small opening in the abdominal wall was made Vicryl sutures was used to stay sutures of both ends and were able to place a hemostat and appeared to be free into the right side I did not open the fascia more placed my finger and it was free from any significant tissue in fact it was followed by 5 mm trocar we aimed towards the right upper quadrant and felt free we started insufflation a little pressure and flow and appeared to be functioning well therefore we increased the flow rate to we had approximately 15 mmHg pressure to control the pneumoperitoneum we basically tied the Vicryl sutures and placed a Ray-Any in the wound and that took care of it once the camera entered the abdominal cavity the right upper quadrant was free of any adhesions in fact we tried to see where the Veress needle may have and entered the abdominal cavity and it never went into the abdominal cavity due to his significant subcutaneous fatty tissue and abdominal wall the gallbladder was visualized appeared to have an adhesion therefore we placed a 5 mm epigastric port with preemptive local analgesic and direct visualization then placed two 5 mm subcostal ports with preemptive local analgesic once this was accomplished we placed the camera right upper quadrant lateral site to visualize our entry into the abdominal cavity at the umbilical area and we identified that the trocar was free of any significant adhesion although her there was adhesions proximal to the trocar site but there was no evidence of any bleeding or any injury patient was placed in reverse Trendelenburg position the gallbladder was grasped the adhesions to the gallbladder inferior surface was taken operating much by blunt dissection we went on the dissected out the cystic duct creating window between the cystic duct and artery we clipped the cystic duct proximally at the takeoff of the gallbladder small opening cystic duct was made and #4 urethral catheter transversing the abdominal wall was positioned our initial x-ray showed distal common bile duct part of the cystic duct and what appeared to be a stricture in the distal common bile duct we could not visualize the proximal radicles therefore repositioned the urethral catheter and were able to see the intrahepatic radicles and cystic duct with there was no evidence of any stones a cystic duct was then clipped distally twice and divided the gallbladder the artery was identified doubly clipped proximally 1 distally and we took the gallbladder out in 100 antegrade fashion using electrocautery there was some ooze that was in the liver edge but not significant once we freed the gallbladder from the liver we placed in an Endopouch and taken out intact to the epigastric port we then went on and irrigated significantly the gallbladder fossa and underneath it a few minor bleeders were cauterized the patient had been on Plavix and aspirin even though we stopped it approximately 10 days ago and there was just minor oozing we at this point placed some Surgicel in the gallbladder fossa and then I elected to drain the area with her Rodo drain wh ich came in subhepatic be taken out laterally on her right upper quadrant trocar attaches skin edges with 2-0 silk at this point individual trocar was taken on direct visualization unless the umbilical trocar wounds were closed with 4-0 Monocryl except from the umbilical opening we used 2-0 Vicryl multiple interrupted sutures to close the fascia Dexon was similarly used subcutaneously and Monocryl the skin edges dressing was applied procedure was tolerated well by the patient estimated blood loss approximately 15 cc Addendum Gavi Moya physician criminal legal assistant was present throughout the case and helped retraction exposure wound closure Surgeon Jerod Stewart MD, FACS Operations Support Analyst Ambar PARHAM Estimated Blood Loss 15 Findings Consistent with Post-Op Diagnosis Chronic cholecystitis cholelithiasis stricture of distal common bile duct chol angiogram Specimens Gallbladder and stone Drains 19 Rodo subhepatic leak Complications Suction system poor quality Indications Right upper quadrant pain known cholelithiasis symptomatic Description of Procedure merda I attest to the content of the Intraoperative Record and any orders documented therein. Any exceptions are noted below.
--- NOTE | 2025-03-17 13:10 | Anesthesiology Progress Note ---
Date of Service March 17, 2025 Anesthesia Post Procedure Vital Signs Vital Signs: Temp Pulse Resp BP BP Pulse Ox O2 Del Method 03/17/25 13:00 70 19 155/98 H 93 Room Air 03/17/25 12:50 74 20 144/81 H 97 Oxymask 03/17/25 12:40 71 18 137/102 H 97 Oxymask 03/17/25 12:30 69 18 144/99 H 98 Oxymask 03/17/25 12:21 36.5 C 71 22 159/90 H 97 Oxymask 03/17/25 09:22 36.8 C 66 20 112/82 96 Room Air O2 Flow Rate 03/17/25 13:00 03/17/25 12:50 5 03/17/25 12:40 5 03/17/25 12:30 5 03/17/25 12:21 5 03/17/25 09:22 Transfer of Care Handoff Completed per policy Notes Mental Status: alert / awake / arousable Patient Amnestic to Procedure: Yes Nausea / Vomiting: adequately controlled Pain: adequately controlled Airway Patency, RR, SpO2: stable & adequate BP & HR: stable & adequate Hydration State: stable & adequate Anesthetic Complications: no major complications apparent
[2025-03-17] MEDS ORDERED: PHARMACY GLYCEMIC MGMT CONSULT PRN (14:02)
[2025-03-17] MEDS ORDERED: ACETAMINOPHEN 325 MG TAB PO PRN (14:02)
--- NOTE | 2025-03-17 14:53 | Pharmacy Report ---
Pharmacy Glycemic Short Note 2 - Date of Service March 17, 2025 - Glycemic Short BSG Results (Last 24 hours): 03/17/25 09:13 POC Glucose 123 H OUTPATIENT ANTIDIABETIC REGIMEN: * diet controlled, previously on metformin but stopped due to GI distress * HbA1c 5.8% (11/30/24) ASSESSMENT: * Cyndie is a 60 year old female admitted status post cholecystctomy with a history of type 2 diabetes mellitus. Pharmacy has been consulted to assist with glycemic management while inpatient. * Preoperative BSG this AM at goal, dexamethasone 8mg IV appears to have been given perioperatively. Has not required much insulin on previous admissions. Will start loose NovoLog parameters with steroid administration, likely can remove carbohydrate ratio in AM. No basal at this time. PLAN FOR INPATIENT GLYCEMIC CONTROL: * Hold outpatient oral diabetes medications * Basal insulin * hold * Bolus insulin * NovoLog per scale ACHS or Q6hrs while NPO * Goal Range: Low 110 mg/dL - High 160 mg/dL * Correction Factor: 45 mg/dL/unit * Nutritional / Prandial insulin per carb ratio of 1 unit per 15 grams CHO consumed
[2025-03-17] MEDS: INSULIN ASPART PER UNIT CHARGE SC SCH (15:06)
[2025-03-17] MEDS: ONDANSETRON INJ 2 MG/ML 2 ML VIAL IV PRN (16:23)
[2025-03-17] MEDS: PROMETHAZINE 12.5 MG/50.5 ML BAG IV STA (17:50)
[2025-03-17] MEDS: MoRPHine SULFATE 2 MG/ML CARP IV PRN (20:33)
[2025-03-17] MEDS: levETIRAcetam 500 MG TAB PO SCH (23:17)
[2025-03-17] MEDS: AMITRIPTYLINE HCL 25 MG TAB PO SCH (23:18)
[2025-03-17] MEDS: VALSARTAN/SACUBITRIL 103/97MG TAB PO SCH (23:18)
[2025-03-17] MEDS: PROMETHAZINE 12.5 MG/50.5 ML BAG IV PRN (23:32)
--- NOTE | 2025-03-18 02:08 | Communication Note ---
Date of Service: March 18, 2025 I was notified by nursing staff that the patient was hypertensive with a blood pressure of 177/113. They note that the patient has been hypertensive since her surgery. The patient has received 10 mg of IV hydralazine on 2 occasions approximately 6 hours apart. She also had her home medications of Coreg 25 mg twice daily resumed and she has also had her Entresto 103/97 twice daily resumed as well. The patient does note that she did have to hold some of her blood pressure medications prior to surgery. I reported the patient's bedside to visit with her and she was actually sleeping and resting comfortably in bed at the time of my encounter with her. She does note that she is having some incisional pain that she describes as a 6 out of 10. The nursing staff notes that she has received 2 mg of intravenous morphine previously in the evening for this pain. The patient does note that she is not having any chest pain, shortness of breath, or visual changes. I suspect the patient's elevated blood pressure may be multifactorialholding her blood pressure medications prior to surgery, effects of anesthesia, postoperative pain. Would recommend continuing use of patient's IV analgesics as needed. I have requested a hospitalist consultation and have spoken with the service and they will evaluate the patient's blood pressure medications and make adjustments as needed.
--- NOTE | 2025-03-18 02:18 | Hospitalist Consultation ---
Date of Consultation March 18, 2025 Assessment & Plan (1) HTN (hypertension): Supervising Physician Co-Signing Physician Notes 60 yo female PMHx HTN, CAD, PAD, COPD/emphysema, HLD, T2DM, anxiety, GERD, marijuana use with cyclic vomiting syndrome, REBECCA who underwent elective laparoscopic cholecystectomy on 03/17/25. The hospitalist service is consulted for evaluation of her blood pressure in the post-operative setting. #Hypertension Likely multifactorial - patient had medications held, recently underwent general anesthesia, and has some post-operative pain EKG sinus rhythm Continue home medications - carvedilol and Entresto Optimize pain control with currently ordered medications - Tylenol, oxycodone, morphine Hydralazine 10mg q6h PRN for BP >180/110 If remaining persistently elevated through the morning - would recommend transfer to PCU for further IV BP management Else per primary surgical service Thank you for allowing us to participate in the care of this patient Attending addendum: I have physically seen this patient, have supervised the medical residents activities, and agree with the H&P unless as otherwise noted. Assessment and Plan: The patient is a 60-year-old female past medical history including hypertension, CAD, PAD, COPD/emphysema, hyperlipidemia, diabetes mellitus type 2, anxiety, GERD, marijuana use, cyclic vomiting syndrome and REBECCA. Patient underwent elective laparoscopic cholecystectomy on 03/17/2025. She has had elevated blood pressure in the postoperative setting, and consult is made to medicine for further evaluation and treatment. Hypertension- Current blood pressure is 163/97, with heart rate 92 Patient did have her usual medications of carvedilol 25 mg p.o. twice daily and Entresto held, and both were given later this evening Would optimize pain control as noted. With heart rate in the 90s, patient would do best with an IV negative inotrope such as Lopressor or Cardizem. However, this would require transfer to the PCU overnight. Will use hydralazine as needed for now, and allow more time for the missed dosages of carvedilol and Entresto to Work. If blood pressure and heart rate still high in the a.m., would transfer to PCU at that time, if there is a bed available. An additional option for the a.m., is to start oral Cardizem 30 mg p.o. every 6 hours and convert to Cardizem CD Follow chemistry laboratories in a.m. to verify renal function is normal History of Present Illness Reason for Consultation: post-op hypertension Requesting Physician: Canelo Pierson Attending Physician: Jerod Stewart MD, FACS History of Present Illness 60 yo female PMHx HTN, CAD, PAD, COPD/emphysema, HLD, T2DM, anxiety, GERD, marijuana use with cyclic vomiting syndrome, REBECCA who underwent laparoscopic cholecystectomy on 01/15/25. The hospitalist service is consulted for evaluation of her blood pressure in the post-operative setting. Blood pressure has been persistently elevated since surgery. Her home antihypertensives (Entresto, carvedilol) were held prior to surgery. The patient received her home antihypertensives about 2 1/2 hours prior to my evaluation and received IV hydralazine 10mg x2. BP remains elevated in the 170s/110s. She does have a history of multiple episodes of hypertensive urgency and renal artery stenosis. She follows with cardiology and vascular surgery for this. Upon evaluation, the patient was sleeping in her room. Denies ESTRELLA, vision changes, CP, SOB. She does have some post operative pain and has pain medication (acetaminophen, morphine, oxycodone) ordered to manage this. Allergies Allergy/AdvReac Type Severity Reaction Status Date / Time napoles Allergy Intermediate Hives Verified 03/17/25 09:17 (green/hartman beans) broccoli Allergy Intermediate Bruising Verified 03/17/25 09:17 doxycycline Allergy Intermediate Hives, Verified 03/17/25 09:17 vomiting Iodinated Contrast Media Allergy Intermediate Large Verified 03/17/25 09:17 hives, vomiting, "feeling hot" iodine Allergy Intermediate Hives, Verified 03/17/25 09:17 vomiting latex Allergy Intermediate Rash Verified 03/17/25 09:17 loperamide Allergy Intermediate Hives, Verified 03/17/25 09:17 vomiting meperidine Allergy Intermediate Hives, Verified 03/17/25 09:17 vomiting strawberry Allergy Intermediate Hives Verified 03/17/25 09:17 tomato Allergy Intermediate Hives Verified 03/17/25 09:17 prochlorperazine Allergy Mild Nausea, Verified 03/17/25 09:17 vomiting, itchiness polyethylene glycol AdvReac Intermediate Elevated Verified 03/17/25 09:17 [facility] BP/Vomiting polyethylene glycol 3350 AdvReac Intermediate Elevated Verified 03/17/25 09:17 [From [facility]] BP/Vomiting potassium chloride AdvReac Intermediate Elevated Verified 03/17/25 09:17 [From [facility]] BP/Vomiting sodium [From [facility]] AdvReac Intermediate Elevated Verified 03/17/25 09:17 BP/Vomiting sodium bicarbonate AdvReac Intermediate Elevated Verified 03/17/25 09:17 [From [facility]] BP/Vomiting sodium chloride AdvReac Intermediate Elevated Verified 03/17/25 09:17 [From [facility]] BP/Vomiting sodium sulfate AdvReac Intermediate Elevated Verified 03/17/25 09:17 [From [facility]] BP/Vomiting Home Medications Medication Instructions Recorded Confirmed Type nitroglycerin 0.4 mg sublingual 0.4 mg sublingual UD PRN Chest Pain 06/07/24 03/17/25 History tablet blood sugar diagnostic (FreeStyle #100 ea 06/17/24 03/09/25 Rx Lite Strips) blood-glucose meter (FreeStyle #1 ea 06/17/24 03/09/25 Rx Lite Meter kit) lancets #100 ea 06/17/24 03/09/25 Rx apixaban 5 mg tablet (Eliquis) 5 mg PO BID #180 tabs 10/11/24 03/17/25 Rx levetiracetam 1,000 mg tablet 1,000 mg PO BID #180 tabs 10/18/24 03/17/25 Rx (Keppra) rosuvastatin 40 mg tablet (Crestor) 40 mg PO HS #90 tabs 11/10/24 03/17/25 Rx cholecalciferol (vitamin D3) 125 125 mcg PO DAILY 12/08/24 03/17/25 History mcg (5,000 unit) tablet (Vitamin D3) potassium chloride 20 mEq 20 meq PO QAM 12/08/24 03/17/25 History tablet,extended release amitriptyline 25 mg tablet 25 mg PO HS #90 tabs 12/20/24 03/17/25 Rx clopidogrel 75 mg tablet (Plavix) 75 mg PO HS #90 tabs 01/04/25 03/17/25 Rx capsaicin 0.033 % topical cream 1 applic EXT DAILY PRN nausea, 02/10/25 03/17/25 Rx (Zostrix) abdominal pain #0 grams ondansetron 4 mg disintegrating 4 mg PO Q6H PRN nausea and 02/10/25 03/17/25 Rx tablet vomiting #30 tabs carvedilol 25 mg tablet 25 mg PO BID #60 tabs 02/22/25 03/17/25 Rx pantoprazole 40 mg tablet,delayed 40 mg PO QAM gastritis 02/22/25 03/17/25 History release (Protonix) sacubitril 97 mg-valsartan 103 mg 1 tab PO BID #60 tabs 02/22/25 03/17/25 Rx tablet (Entresto) ezetimibe 10 mg tablet 10 mg PO QAM 03/10/25 03/17/25 History quetiapine 25 mg tablet (Seroquel) 25 mg PO Q8H PRN nausea and 03/10/25 03/17/25 History vomiting venlafaxine 150 mg 150 mg PO QAM 03/10/25 03/17/25 History capsule,extended release 24 hr venlafaxine 75 mg capsule,extended 75 mg PO QAM 03/10/25 03/17/25 History release 24 hr oxycodone 5 mg tablet 5 - 10 mg (1 - 2 x 5 mg) PO 03/17/25 Rx .[id number] PRN pain, for initial therapy, max 6 tabs per day #12 tabs Patient History Medical History Hyperlipidemia GERD (gastroesophageal reflux disease) Hypertension Chronic diarrhea "not as bad as when I had my colonoscopy 12/2024" Carotid stenosis < 50% stenosis B/L per US 12/16/18 CAD (coronary artery disease) no stents - Mild-moderate non-obstructive CAD per 2017 cardiac cath - Dr Rodriguez Cholelithiasis Reason for procedure 03/17/25 Vertigo Cerebellar stroke 2022? [place] [facility] [place] no longer with a neurologist - no residuals Obstructive sleep apnea mod-severe per PCP records (does not have device) - has not had sleep study yet due to current medical complications, was to have had testing 01/2025 Diverticulosis Difficult intravenous access Pulmonary emphysema controlled as per patient - quit tobacco use Renal artery stenosis s/p multiple vascular surgeries with Dr Maynard Intractable nausea and vomiting most recently 02/08/25-02/10/25 [facility] - [facility] 12/03/24 and 12/06/24 History of hypertensive crisis Multiple - Dr Rodriguez Cardiology Gastroenteritis multiple incidents - recently IP [facility] 02/08/25 - 02/10/25 Diabetes mellitus, type 2 Oral - currently on hold History of chest pain as per patient has not needed nitro recently and denies any chest pain at this time. recently took nitro 12/03/24 went to [facility] History of stroke 2022? [place] [facility] [place] no longer with a neurologist - no residuals Abdominal pain Chronic - most recently 02/08/25-02/10/25 [facility] IP [facility] 12/03/24 & 12/06/24 Decreased appetite as per patient since 07/2024 until 12/2024 went from 208lbs to 160lbs - as of 03/09/25 office visit up to 168lbs Unintentional weight loss as per patient since 07/2024 until 12/2024 went from 208lbs to 160lbs - as per patient 03/09/25 appt was 168lbs History of recent hospitalization 02/08/25-02/10/25 & 12/03/24 & 12/06/24 [facility] ER for abdominal pain, nausea, vomiting. Acute upper gastrointestinal bleeding hx - pt denies at this time Elevated troponin Hypokalemia Hypophosphatemia Tachycardia hx Postoperative nausea Seizures 2019 r/t hypertensive emergency > encephalopathy. last seizure 2019 - tonja mace neurologist Hematemesis hx - pt denies any issues currently History of COVID-19 03/18/22, [facility], hospitalized day after diagnosis due to vomiting blood, discharged on 03/22/22; fever, vomiting, body chills and aches, diarrhea > resolved currently. Ischemia of right lower extremity Depression Proteinuria hx Cyclic vomiting syndrome still uses medical marijuana Hypercalcemia PRES (posterior reversible encephalopathy syndrome) has since caused seizures that started in 2019. following with PCP, last seizure per pt 08/2019 per PCP records Cannabinoid hyperemesis syndrome History of diverticulitis of colon Most recent 04/2022 - just had CT Abd/Pelvis at [facility] 12/2024 - nothing notated Transient cerebrovascular ischemia possibly 2022? patient unsure of when - did follow up with [facility] Neurology, no longer does - no residuals Cervical disc disorder Full ROM per pt Takotsubo cardiomyopathy 2016. Admitted [facility], full cardiac workup including cath. EF at the time 40%, now subsequent echos. Follows with Dr. Rodriguez NSTEMI (non-ST elevated myocardial infarction) 2017 - no stents - Dr Rodriguez Cardiology "I had a couple" as per patient Surgical History (Updated 03/17/25 @ 13:04 by Marilyn Hopkins, RN) S/P laparoscopic cholecystectomy (03/17/25) Laparoscopic Cholecystectomy with Cholangiogram(Not Applicable) - Jerod Stewart MD, FACS History of colonoscopy (12/2024) History of vascular surgery (09/2022) Right Fem to Left Fem Bypass History of anesthesia reaction Low O2 sats during colonoscopy 04/2022 at [facility] and post-procedure elevated BP. Per post-op anesthesia progress note, O2 96-100% RA and "Pt has increased BP 2ndary to abdominal pain. Pt also has nausea w/ dry heaves. Pt to have CT scan per Dr Patten." as per patient most recent colonoscopy 12/2024 had issues post procedure that ended with a trip to [facility] History of tooth extraction Upper/Lower Dentures History of cataract surgery bilateral Status post surgery (09/2021) RLE thrombectomy S/P aortobifemoral bypass surgery Sep 2021 [facility] History of esophagogastroduodenoscopy (EGD) (05/2024) H/O cervical spine surgery ACDF C4-7 Dr. Wells: Grade 1 view, Bojorquez#2 and ETT#7.5 atraumatic x 1. No issues per anesthesia postop progress note. ROM WNL History of cardiac cath 2017 > no stents - Dr Rodriguez Cardiology History of ovarian cystectomy History of hernia surgery right inguinal hernia repair History of hysterectomy Family History Father Family history of stomach cancer Malignant neoplasm of esophagus Stomach cancer Myocardial infarction Stroke Heart disease Uncle Throat cancer Family history of cancer FAMILY HISTORY OF CANCER - UNCLE - VOCAL CORDS FAMILY HISTORY OF CANCER - AUNT - ? KIND Grandmother (Maternal) Bone cancer Breast cancer Mother No problems noted. Brother Lung cancer Grandmother Diabetes Other Family history of diabetes mellitus No family history of adverse response to anesthesia No pertinent family history Denies family history of Colon cancer Ovarian cancer Prostate cancer Crohn's disease IBD (inflammatory bowel disease) Social History (Updated 03/09/25 @ 16:28 by Stephanie Velazco RN) Smoking Status: Former smoker Tobacco Type: Cigarettes Age Started Using Tobacco: 20; Age Quit Using Tobacco: 49; packs per day: 1.5; Smoking End Date: 10 years ago; Second Hand Exposure: No; Do You Dip or Chew Tobacco: No; Tobacco Cessation Education Requested by Patient: No Hx Alcohol Use: No Hx Substance Use: Yes Prescribed Medications: Marijuana Last Used Substance: Unknown Last Used Substance Other:: Advised Substance Use Type Other:: Medical Mj - Smoke Flower Preferred Language: Occitan Communication Ability: Effective Visual Impairment: No Limitations Hearing Ability: Normal Order Control Clerk Blood Bank Required: No Beliefs That Will Affect Care: None marital status: Current Living Situation: Significant Other Current Living Situation Comment: with boyfriend current occupational status: disabled 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 Other Information That Helps Us Care for You: No Feels Safe at Home: Yes Safety Concerns: Feels Safe At This Time Childhood Exposure to Second-Hand Smoke: Yes Diet: regular Diet Comment: Regular caffeine: Yes (1 cup of coffee) during the past year weight has: other Dental Care, Regularly: No Physical Activity Frequency: Daily Physical Activity Frequency Comment: walking Seatbelt Use: always Sunscreen Use: Yes Assistive Devices: Denture - Upper and Denture - Lower Review of Systems Review of Systems: reviewed, per HPI Physical Exam Physical Exam: Constitutional: well-appearing, no acute distress HEENT: NCAT, no conjunctival injection CV: regular rhythm, extremities well-perfused, no LE edema Resp: no increased work of breathing GI: nondistended MSK: no gross deformities appreciated Skin: warm, dry, no rash appreciated Neuro: alert, oriented, no focal neurologic deficit appreciated Results & Data Results & Data Vital Signs (Past 12 Hours) Vital Signs Temp Pulse Resp BP BP Pulse Ox O2 Del Method 03/18/25 01:17 177/113 H 03/18/25 00:19 179/116 H 03/17/25 23:59 37.4 C 101 H 16 171/106 H 185/119 H 95 Room Air 03/17/25 21:00 36.6 C 84 16 179/106 H 94 Room Air 03/17/25 19:46 Room Air 03/17/25 18:08 173/104 H 03/17/25 17:24 36.6 C 82 18 175/103 H 97 Room Air 03/17/25 15:58 36.8 C 80 16 128/84 96 Room Air 03/17/25 14:58 36.6 C 69 16 151/84 H 95 Room Air 03/17/25 14:33 36.7 C 72 16 164/75 H 94 Room Air 03/17/25 14:26 Room Air Resident Activity Tracking Resident Involvement: Resident Care Provided Care Provided: Adult Hospital Medicine
--- NOTE | 2025-03-18 04:01 | Billing Data ---
Date of Service March 18, 2025 Coding Level of Care Code 29688 IN/OBS CONSULT LVL 3,45M
[2025-03-18] MEDS: MoRPHine SULFATE 2 MG/ML CARP IV PRN (05:10)
[2025-03-18 07:21] VITALS: BP 96/65; PULSE 84; RESP 17; TEMP 98.6; O2SAT 94
[2025-03-18] MEDS: EZETIMIBE 10 MG TAB PO SCH (08:24)
[2025-03-18] MEDS: VENLAFAXINE HCL XR 75 MG CAPXR PO SCH (08:27)
[2025-03-18] MEDS: VENLAFAXINE HCL XR 150 MG CAPXR PO SCH (08:27)
[2025-03-18 09:30] LABS: Hematocrit (blood only) 43.1 % (37.0-47.0); Hemoglobin 14.7 g/dl (12.0-16.0); Immature Granulocytes # (auto) 0.13 K/uL (0.01-0.20); Immature Granulocytes % (auto) 0.8 %; Mean Corpuscular Hemoglobin 31.0 pg (25.0-34.0); Mean Corpuscular Volume 90.9 fL (80.0-100.0); Platelet Count 270 K/uL (130-400); RDW Standard Deviation 41.5 fL (36.4-46.3); Red Blood Count 4.74 M/uL (4.20-5.40); White Blood Count 15.33 K/ul (4.8-10.8)
--- NOTE | 2025-03-18 09:44 | Surgery Progress Note ---
Date of Service March 18, 2025 Assessment & Plan (1) Cholelithiasis: Plan: Patient is first postoperative day laparoscopic cholecystectomy intraoperative cholangiogram findings were discussed with the patient including the distal common bile duct needs to be reevaluated I feel this may be a stricture distally but the report by radiologist felt that was normal She is doing remarkably well this morning no issues tolerating a diet and certainly she can go home Rodo drain with serosanguineous was removed dressing was applied Instructions were given to her regarding when to restart the blood thinners Plan Increase diet as tolerated Patient can be discharged later this morning if okay with the medical service Instructions were given to her when to resume the anticoagulation and I felt it be best to wait until Friday Will see her again in the office in 1 week sooner if there is any issues Admission and Anticipated Discharge Date Admission Date: March 17, 2025 Subjective Feels much better this morning last evening had nausea and 1 emesis this morning she is without any complaints in fact she had a liquid breakfast without any issues Last evening blood pressure 179/116 with started ranolazine postoperatively and the medical service was consulted Physical Exam Physical Exam: Alert coherent resting comfortably with no distress Sclera nonicteric Abdomen completely benign dressings intact Rodo drainage serosanguineous 30 cc 3 hours ago Results & Data Vital Signs (Past 12 Hours) Vital Signs Temp Pulse Resp BP BP Pulse Ox O2 Del Method 03/18/25 07:20 Room Air 03/18/25 07:18 37 C 84 17 96/65 L 94 Room Air 03/18/25 03:30 37.7 C H 92 H 16 163/97 H 92 Room Air 03/18/25 01:17 177/113 H 03/18/25 00:19 179/116 H 03/17/25 23:59 37.4 C 101 H 16 171/106 H 185/119 H 95 Room Air Laboratory Results Hemoglobin noted 14.7 this morning preop was 13.3 Electrolytes report pending Liver function test report still pending Blood pressure this morning 96/65 Blood pressure greatly improved this morning from yesterday as high as 185/119 medical service was consulted and appreciate their help
[2025-03-18 09:52] LABS: Alanine Aminotransferase 42.0 U/L (7-52); Albumin Globulin Ratio 1.7 (0.9-2); Alkaline Phosphatase 62.0 U/L (34-104); Anion Gap 11.0 (3-11); Bilirubin,Total 0.5 mg/dl (0.2-1.0); Blood Urea Nitrogen 15.0 mg/dl (6-23); Calcium 9.3 mg/dl (8.6-10.3); Carbon Dioxide 25.0 mmol/L (21-32); Chloride 101.0 mmol/L (98-107); Creatinine Clr Calc Pharmacy 79.6 ml/min; Globulin 2.7 gm/dl (2.5-4.0); Glucose 111.0 mg/dl (70-99(Fasting)); Potassium 3.5 mmol/L (3.5-5.1); Sodium 137.0 mmol/L (136-145); Total Protein 7.2 gm/dl (6.0-8.3)
[2025-03-18 10:25] LABS: Hemoglobin A1C 5.9 % (4.5-5.6)
[2025-03-18] MEDS: LACTATED RINGER'S 500 ML IV ONE (10:36)
--- NOTE | 2025-03-18 10:36 | Hospitalist Progress Note ---
Date of Service March 18, 2025 Assessment & Plan (1) HTN (hypertension): Plan: 60 yo female PMHx HTN, CAD, PAD, COPD/emphysema, HLD, T2DM, anxiety, GERD, marijuana use with cyclic vomiting syndrome, REBECCA who underwent elective laparoscopic cholecystectomy on 03/17/25. The hospitalist service is consulted for evaluation of her blood pressure in the post-operative setting. #Hypertension Likely multifactorial - patient had medications held, recently underwent general anesthesia, and has some post-operative pain. Recieved IV hydralazine x2 Patient has a hx of labile HTN, recheck BP during my evaluation was 109/69. Patient asymptomatic at this pressure. Poor PO intake post op - only had jello this morning, but denies pain or nausea. We discussed importance of staying hydrated to prevent dehydration and hypotension. She checks her BPs frequently at home and holds her medications if needs to. Will give 500cc bolus, continue home medications. Okay for discharge home today, follow up with PCP. Admission and Anticipated Discharge Date Admission Date: March 17, 2025 Subjective Patient seen lying in bed, reports feeling much better than yesterday. Reports being quite fatigued yesterday with high pressure checks her BP very frequently at home - normally runs 121/70, but does occasionally run low and when that happens she does not take her medications feels better today has ambulated to the bathroom and denies lightheadedness or dizziness Review of Systems Review of Systems: All systems reviewed & are unremarkable except as noted in Subjective Physical Exam Physical Exam: General: NAD, VS as above HEENT: MM dry Resp: normal respiratory effort, lungs clear to auscultation CV: RRR, no murmur, Abd: normal bowel sounds, non tender, Extremities: Moves all extremities, no LE edema Neuro: A&O x3, Results & Data Results & Data Vital Signs (Past 12 Hours) Vital Signs Temp Pulse Resp BP BP Pulse Ox O2 Del Method 03/18/25 07:20 Room Air 03/18/25 07:18 98.6 F 84 17 96/65 L 94 Room Air 03/18/25 03:30 99.8 F H 92 H 16 163/97 H 92 Room Air 03/18/25 01:17 177/113 H 03/18/25 00:19 179/116 H 03/17/25 23:59 99.3 F 101 H 16 171/106 H 185/119 H 95 Room Air PG Care Time/CCT Total # of Minutes Spent Total Time Spent with Patient: Total time spent is greater than 50% in coordination of care (as documented) at patient's floor/unit and/or counseling patient: Coding Level of Care Code None Diagnoses HTN (hypertension) I10
--- NOTE | 2025-03-18 11:26 | Electrocardiogram Report ---
Test Reason : Blood Pressure : */* mmHG Vent. Rate : 94 BPM Atrial Rate : 94 BPM P-R Int : 212 ms QRS Dur : 84 ms QT Int : 376 ms P-R-T Axes : 55 24 52 degrees QTcB Int : 470 ms Sinus rhythm with 1st degree A-V block Otherwise normal ECG When compared with ECG of 08-Feb-2025 12:05, Vent. rate has increased by 32 bpm Nonspecific T wave abnormality now evident in Lateral leads Confirmed by Boo Vega ([id number]) on 03/18/2025 11:26:04 AM Referred By: Jerod Stewart Confirmed By: Boo Vega
== END 2025-03-18 13:06 | disposition home or self-care (01) ==
LOC: ASU 08:58 → 3E 08:58

== ENCOUNTER 2025-03-31 09:36 | Observation (INO) ==
--- NOTE | 2025-03-31 09:57 | Emergency Department Note ---
Impression & Plan RUQ abdominal pain, Vomiting and diarrhea, Leukocytosis, S/P cholecystectomy, Hypertension ED Provider Note NAME: ONEL MONTOYA AGE: 60 SEX: F : 1965 ARRIVES VIA: Ambulance INFORMANT: [Patient][EMS] ED PROVIDER(S): [Armin Tariq MD] CHIEF COMPLAINT: Abdominal pain HISTORY OF PRESENT ILLNESS: The patient is a 60-year-old female who states that at around 2 AM, 8 hours ago, she awoke with nausea and vomiting and some right upper quadrant abdominal pain. The patient states that she also has had some diarrhea. No blood in the vomit, no blood in the diarrhea. There has been no fever, no urinary complaints. She has noticed some occasional cough but there has been no shortness of breath. The patient did receive IV Zofran and IV morphine in route, this has helped her symptoms slightly. The patient states that she had gallbladder surgery 2 weeks ago. She states that she saw the surgeon just over a week ago, no issues with the visit. The patient felt fine yesterday, no bad food eaten, no sick contacts. PMHx/PSHx/Social Hx: See Below PHYSICAL EXAM: GENERAL: Patient is in no acute distress. HEENT: No acute trauma, normocephalic atraumatic, mucous membranes moist, no nasal congestion. NECK: No stridor, no adenopathy, no meningismus, trachea is midline. LUNGS: Clear to auscultation bilaterally, no wheeze, no rhonchi, breath sounds equal. HEART: Without murmurs gallops or rubs, regular rate and rhythm. ABDOMEN: Soft, tender along the right abdomen, mostly the right upper quadrant, no distention. EXTREMITIES: No cyanosis, full range of motion of all the joints without pain or difficulty. NEUROLOGIC: Oriented x 3, no acute motor or sensory deficits, no focal weakness. SKIN: No jaundice, no diaphoresis. DIFFERENTIAL DIAGNOSIS: Viral illness, foodborne illness, dehydration, abscess, bowel obstruction, pancreatitis, among others. EMERGENCY DEPARTMENT PROCEDURES: MEDICAL DECISION MAKING: There is a mild leukocytosis, this could be consistent with infection or just the stress of her presentation. There is a normal hemoglobin and platelet count. No bandemia. No renal failure or significant electrolyte abnormality. No concerning liver enzyme elevation. No evidence for pancreatitis. ECG showed a sinus rhythm, no ischemia. Cardiac enzyme testing x 1 is not consistent with acute cardiac injury. Chest x-ray did not show pneumonia or free air. Abdominal and pelvis CT shows a presumed fluid collection in the area where she had her gallbladder surgery. There was no bowel obstruction or acute surgical process by CT imaging. On exam, the patient was hypertensive and tender in the right upper quadrant. She was not febrile. The patient was given IV saline, 1 L. She was given IV Zofran, IV Dilaudid. Because of the persistently high blood pressure, she was given IV labetalol. She received IV Solu-Medrol and IV Benadryl in preparation for her CT scan. With the above interventions, the patient is feeling improved, her blood pressure is improved. I did speak with general surgery. They will make recommendations given the recent gallbladder resection. Given the circumstances and presentation, I do think a hospital stay/observation would be warranted. I did speak with the patient and case management. The on- call hospitalist was consulted. At this point, the cause for her presentation is unclear. Prior/Outside records/notes reviewed: Outpatient surgical note from 03/23/2025 describing her postop care, evaluation and plan outpatient. ECG per my interpretation: Indication was abdominal pain. The ECG shows a normal sinus rhythm with some sinus arrhythmia. The rate is 69. There is no ST elevation, no PVCs. The QTc is 454. Continuous Cardiac Monitoring per my interpretation: An order was placed for continuous cardiac monitoring. The monitor shows a rate of 70 with normal sinus rhythm. Imaging/x-ray results per my interpretation: Chest x-ray does not show free air or pneumonia. Chronic Medical/Social conditions affecting care: Gallbladder surgery just 2 weeks ago. Care/Management discussed with: Case management, the on-call hospitalist. General surgery, Dr. Joseph's service. Level of care consideration(s): After review of the information above and other included data: --I believe the patient requires escalation of care to admission Critical Care Note: I have personally spent 48 minutes of critical care time in the direct management of this patient. This includes bedside care, interpretation of diagnostic studies, and testing, discussion with consultants, patient, and family members, and other required patient management activities. This 48 minutes is in excess of all separately billable procedures. DISPOSITION: Admission Past Med/Surg History Problem List (Updated 03/31/25 @ 15:37 by Armin Tariq MD) Hypertension (Acute) S/P cholecystectomy (Acute) Leukocytosis (Acute) Vomiting and diarrhea (Acute) RUQ abdominal pain (Acute) Cholelithiasis Cyclic vomiting syndrome (Acute) Chronic diarrhea Obstructive sleep apnea no device d/t recall - to have sleep study 01/18/25 Non-ST elevation [place] (NSTEMI) (Acute) Diabetes mellitus Occlusion of left iliac artery Seizure disorder Upper gastrointestinal bleed 2021, resolved Peripheral arterial disease Bilateral external iliac artery occlusion with common femoral artery reconstitution-02/2021 aorta with runoff CTA, follows with Dr. Maynard Cyclic vomiting syndrome no GI pathology on EGD, US, CT of abd/pelvis, celiac testing and GES per 04/2020 GI consult: biliary w/u and upper GI study recommended (upper GI study neg per d/c summary), cannabis cessation, continue Protonix and prn Zofran > currently controlled GERD (gastroesophageal reflux disease) Vitamin D deficiency HTN (hypertension) (Acute) h/o multiple hypertensive urgency episodes, renal artery stenosis, following with cardiology and vascular surgery Cervical spondylosis with myelopathy and radiculopathy Carpal tunnel syndrome Anxiety disorder Hyperlipidemia Multiple thyroid nodules Pulmonary emphysema well controlled per pt Hx-TIA (transient ischemic attack) pt denies CAD (coronary artery disease) Mild-moderate non-obstructive CAD per 2016 cardiac cath Carotid stenosis < 50% stenosis B/L per US 12/16/18 Marijuana dependence (Acute) Medical History Hyperlipidemia GERD (gastroesophageal reflux disease) Hypertension Chronic diarrhea "not as bad as when I had my colonoscopy 12/2024" Carotid stenosis < 50% stenosis B/L per US 12/16/18 CAD (coronary artery disease) no stents - Mild-moderate non-obstructive CAD per 2016 cardiac cath - Dr Rodriguez Cholelithiasis Reason for procedure 03/17/25 Vertigo Cerebellar stroke 2022[place] [facility] [place] no longer with a neurologist - no residuals Obstructive sleep apnea mod-severe per PCP records (does not have device) - has not had sleep study yet due to current medical complications, was to have had testing 01/2025 Diverticulosis Difficult intravenous access Pulmonary emphysema controlled as per patient - quit tobacco use Renal artery stenosis s/p multiple vascular surgeries with Dr Maynard Intractable nausea and vomiting most recently 02/08/25-02/10/25 [facility] - [facility] 12/03/24 and 12/06/24 History of hypertensive crisis Multiple - Dr Rodriguez Cardiology Gastroenteritis multiple incidents - recently IP [facility] 02/08/25 - 02/10/25 Diabetes mellitus, type 2 Oral - currently on hold History of chest pain as per patient has not needed nitro recently and denies any chest pain at this time. recently took nitro 12/03/24 went to [facility] History of stroke 2022? [place] [facility] [place] in past no longer with a neurologist - no residuals Abdominal pain Chronic - most recently 02/08/25-02/10/25 [facility] IP [facility] 12/03/24 & 12/06/24 Decreased appetite as per patient since 07/2024 until 12/2024 went from 208lbs to 160lbs - as of 03/09/25 office visit up to 168lbs Unintentional weight loss as per patient since 07/2024 until 12/2024 went from 208lbs to 160lbs - as per patient 03/09/25 appt was 168lbs History of recent hospitalization 02/08/25-02/10/25 & 12/03/24 & 12/06/24 [facility] for abdominal pain, nausea, vomiting. Acute upper gastrointestinal bleeding hx - pt denies at this time Elevated troponin Hypokalemia Hypophosphatemia Tachycardia hx Postoperative nausea Seizures 2019 r/t hypertensive emergency > encephalopathy. last seizure 2019 - tonja mace neurologist Hematemesis hx - pt denies any issues currently History of COVID-19 03/18/22, [facility], hospitalized day after diagnosis due to vomiting blood, discharged on 03/22/22; fever, vomiting, body chills and aches, diarrhea > resolved currently. Ischemia of right lower extremity Depression Proteinuria hx Cyclic vomiting syndrome still uses medical marijuana Hypercalcemia PRES (posterior reversible encephalopathy syndrome) has since caused seizures that started in 2019. following with PCP, last seizure per pt 08/2019 per PCP records Cannabinoid hyperemesis syndrome History of diverticulitis of colon Most recent 04/2022 - just had CT Abd/Pelvis at [facility] 12/2024 - nothing notated Transient cerebrovascular ischemia possibly 2022? patient unsure of when - did follow up with [facility] Neurology, no longer does - no residuals Cervical disc disorder Full ROM per pt Takotsubo cardiomyopathy 2017. Admitted [facility], full cardiac workup including cath. EF at the time 40%, now subsequent echos. Follows with Dr. Rodriguez NSTEMI (non-ST elevated myocardial infarction) 2017 - no stents - Dr Rodriguez Cardiology "I had a couple" as per patient Surgical History S/P laparoscopic cholecystectomy (03/17/25) Laparoscopic Cholecystectomy with Cholangiogram(Not Applicable) - Jerod Stewart MD, FACS History of colonoscopy (12/2024) History of vascular surgery (09/2022) Right Fem to Left Fem Bypass History of anesthesia reaction Low O2 sats during colonoscopy 04/2022 at [facility] and post-procedure elevated BP. Per post-op anesthesia progress note, O2 96-100% RA and "Pt has increased BP 2ndary to abdominal pain. Pt also has nausea w/ dry heaves. Pt to have CT scan per Dr Patten." as per patient most recent colonoscopy 12/2024 had issues post procedure that ended with a trip to [facility] History of tooth extraction Upper/Lower Dentures History of cataract surgery bilateral Status post surgery (09/2021) RLE thrombectomy S/P aortobifemoral bypass surgery Sep 2021 [facility] History of esophagogastroduodenoscopy (EGD) (05/2024) H/O cervical spine surgery ACDF C4-7 Dr. Wells: Grade 1 view, Bojorquez#2 and ETT#7.5 atraumatic x 1. No issues per anesthesia postop progress note. ROM WNL History of cardiac cath 2017 > no stents - Dr Rodriguez Cardiology History of ovarian cystectomy History of hernia surgery right inguinal hernia repair History of hysterectomy Family History Father Family history of stomach cancer Malignant neoplasm of esophagus Stomach cancer Myocardial infarction Stroke Heart disease Uncle Throat cancer Family history of cancer FAMILY HISTORY OF CANCER - UNCLE - VOCAL CORDS FAMILY HISTORY OF CANCER - AUNT - ? KIND Grandmother (Maternal) Bone cancer Breast cancer Mother No problems noted. Brother Lung cancer Grandmother Diabetes Other Family history of diabetes mellitus No family history of adverse response to anesthesia No pertinent family history Denies family history of Colon cancer Ovarian cancer Prostate cancer Crohn's disease IBD (inflammatory bowel disease) Social History Smoking Status: Former smoker Tobacco Type: Cigarettes Age Started Using Tobacco: 20; Age Quit Using Tobacco: 49; packs per day: 1.5; Second Hand Exposure: No; Do You Dip or Chew Tobacco: No; Hx Alcohol Use: No Hx Substance Use: Yes Prescribed Medications: Marijuana Last Used Substance: Unknown Last Used Substance Other:: Advised Substance Use Type Other:: Medical Mj - Smoke Flower Preferred Language: Urdu Communication Ability: Effective Visual Impairment: No Limitations Hearing Ability: Normal Internet Programmer Required: No Beliefs That Will Affect Care: None marital status: Current Living Situation: Significant Other Current Living Situation Comment: with boyfriend current occupational status: disabled current occupation: [employer] WORK[employer] Feels Safe at Home: Yes Childhood Exposure to Second-Hand Smoke: Yes Diet: regular Diet Comment: Regular caffeine: Yes (1 cup of coffee) during the past year weight has: other Dental Care, Regularly: No Physical Activity Frequency: Daily Physical Activity Frequency Comment: walking Seatbelt Use: always Sunscreen Use: Yes Assistive Devices: Cane Allergies Allergies Allergy/AdvReac Type Severity Reaction Status Date / Time napoles Allergy Intermediate Hives Verified 03/23/25 15:31 (green/hartman beans) broccoli Allergy Intermediate Bruising Verified 03/23/25 15:31 doxycycline Allergy Intermediate Hives, Verified 03/23/25 15:31 vomiting Iodinated Contrast Media Allergy Intermediate Large Verified 03/23/25 15:31 hives, vomiting, "feeling hot" iodine Allergy Intermediate Hives, Verified 03/23/25 15:31 vomiting latex Allergy Intermediate Rash Verified 03/23/25 15:31 loperamide Allergy Intermediate Hives, Verified 03/23/25 15:31 vomiting meperidine Allergy Intermediate Hives, Verified 03/23/25 15:31 vomiting strawberry Allergy Intermediate Hives Verified 03/23/25 15:31 tomato Allergy Intermediate Hives Verified 03/23/25 15:31 prochlorperazine Allergy Mild Nausea, Verified 03/23/25 15:31 vomiting, itchiness polyethylene glycol AdvReac Intermediate Elevated Verified 03/23/25 15:31 [From Avison Young] BP/Vomiting polyethylene glycol 3350 AdvReac Intermediate Elevated Verified 03/23/25 15:31 [From Golytely] BP/Vomiting potassium chloride AdvReac Intermediate Elevated Verified 03/23/25 15:31 [From Golytely] BP/Vomiting sodium [From Golytely] AdvReac Intermediate Elevated Verified 03/23/25 15:31 BP/Vomiting sodium bicarbonate AdvReac Intermediate Elevated Verified 03/23/25 15:31 [From Golytely] BP/Vomiting sodium chloride AdvReac Intermediate Elevated Verified 03/23/25 15:31 [From Golytely] BP/Vomiting sodium sulfate AdvReac Intermediate Elevated Verified 03/23/25 15:31 [From Golytely] BP/Vomiting Home Meds Home Medications Medication Instructions Recorded Confirmed nitroglycerin 0.4 mg sublingual 0.4 mg sublingual UD PRN Chest Pain 06/07/24 03/31/25 tablet cholecalciferol (vitamin D3) 125 125 mcg PO DAILY 12/08/24 03/31/25 mcg (5,000 unit) tablet (Vitamin D3) potassium chloride 20 mEq 20 meq PO QAM 12/08/24 03/31/25 tablet,extended release pantoprazole 40 mg tablet,delayed 40 mg PO QAM gastritis 02/22/25 03/31/25 release (Protonix) ezetimibe 10 mg tablet 10 mg PO QAM 03/10/25 03/31/25 quetiapine 25 mg tablet (Seroquel) 25 mg PO Q8H PRN nausea and 03/10/25 03/31/25 vomiting venlafaxine 150 mg 150 mg PO QAM 03/10/25 03/31/25 capsule,extended release 24 hr venlafaxine 75 mg capsule,extended 75 mg PO QAM 03/10/25 03/31/25 release 24 hr Previous Rx's Medication Instructions Recorded blood sugar diagnostic (FreeStyle #100 ea 06/17/24 Lite Strips) blood-glucose meter (FreeStyle #1 ea 06/17/24 Lite Meter kit) lancets #100 ea 06/17/24 apixaban 5 mg tablet (Eliquis) 5 mg PO BID #180 tabs 10/11/24 levetiracetam 1,000 mg tablet 1,000 mg PO BID #180 tabs 10/18/24 (Keppra) rosuvastatin 40 mg tablet (Crestor) 40 mg PO HS #90 tabs 11/10/24 amitriptyline 25 mg tablet 25 mg PO HS #90 tabs 12/20/24 clopidogrel 75 mg tablet (Plavix) 75 mg PO HS #90 tabs 01/04/25 capsaicin 0.033 % topical cream 1 applic EXT DAILY PRN nausea, 02/10/25 (Zostrix) abdominal pain #0 grams ondansetron 4 mg disintegrating 4 mg PO Q6H PRN nausea and 02/10/25 tablet vomiting #30 tabs carvedilol 25 mg tablet 25 mg PO BID #60 tabs 02/22/25 sacubitril 97 mg-valsartan 103 mg 1 tab PO BID #60 tabs 02/22/25 tablet (Entresto) Results & Data (ED) Vital Signs Vital Signs - 24 hr 03/31/25 09:43 03/31/25 09:46 03/31/25 09:50 Temperature 36.7 C Temperature Source Oral Pulse Rate 71 82 70 Pulse Rate from SpO2 Sensor Pulse Rhythm Regular Regular Pulse Strength Normal Respiratory Rate 20 20 Respiratory Effort / Characteristics Non-Labored Spontaneous Respiratory Depth Normal Respiratory Pattern Regular Blood Pressure 203/121 H Blood Pressure Mean 148 Blood Pressure Position Semi-fowlers Pulse Oximetry 96 96 Oxygen Delivery Method Room Air Room Air Sepsis Recent Fever Within 48 Hours No Sepsis New/Unexplained Change in Mental Status No Sepsis Action Taken by Nursing No Action Required 03/31/25 10:00 03/31/25 10:22 03/31/25 10:36 Temperature Temperature Source Pulse Rate 76 90 72 Pulse Rate from SpO2 Sensor Pulse Rhythm Pulse Strength Respiratory Rate 19 15 Respiratory Effort / Characteristics Respiratory Depth Respiratory Pattern Blood Pressure 211/135 H 211/135 H 99/74 L Blood Pressure Mean 160 82 Blood Pressure Position Pulse Oximetry 96 92 Oxygen Delivery Method Room Air Room Air Sepsis Recent Fever Within 48 Hours Sepsis New/Unexplained Change in Mental Status Sepsis Action Taken by Nursing 03/31/25 10:54 03/31/25 11:17 03/31/25 11:51 Temperature Temperature Source Pulse Rate 79 69 Pulse Rate from SpO2 Sensor 79 Pulse Rhythm Pulse Strength Respiratory Rate 18 18 Respiratory Effort / Characteristics Respiratory Depth Respiratory Pattern Blood Pressure 126/83 116/92 Blood Pressure Mean 109 100 Blood Pressure Position Pulse Oximetry 93 Oxygen Delivery Method Room Air Sepsis Recent Fever Within 48 Hours Sepsis New/Unexplained Change in Mental Status Sepsis Action Taken by Nursing 03/31/25 12:18 03/31/25 14:15 03/31/25 14:27 Temperature Temperature Source Pulse Rate 75 82 Pulse Rate from SpO2 Sensor 75 79 Pulse Rhythm Pulse Strength Respiratory Rate 18 18 Respiratory Effort / Characteristics Respiratory Depth Respiratory Pattern Blood Pressure 120/79 113/70 Blood Pressure Mean 92 84 Blood Pressure Position Pulse Oximetry 90 93 Oxygen Delivery Method Room Air Room Air Sepsis Recent Fever Within 48 Hours Sepsis New/Unexplained Change in Mental Status Sepsis Action Taken by Nursing 03/31/25 14:39 Temperature Temperature Source Pulse Rate 79 Pulse Rate from SpO2 Sensor Pulse Rhythm Pulse Strength Respiratory Rate Respiratory Effort / Characteristics Respiratory Depth Respiratory Pattern Blood Pressure 115/77 Blood Pressure Mean Blood Pressure Position Pulse Oximetry Oxygen Delivery Method Sepsis Recent Fever Within 48 Hours Sepsis New/Unexplained Change in Mental Status Sepsis Action Taken by [facility] Medications Current Medication List: was personally reviewed by me Laboratory Data Attestation: I reviewed the patient's lab results. 03/31/25 09:45 03/31/25 09:45 Lab Results 03/31/25 Range/Units 09:45 WBC 13.68 H (4.8-10.8) K/ul RBC 4.88 (4.20-5.40) M/uL Hgb 15.0 (12.0-16.0) g/dl Hct 45.1 (37.0-47.0) % MCV 92.4 (80.0-100.0) fL MCH 30.7 (25.0-34.0) pg MCHC 33.3 (32.0-36.0) g/dL RDW Std Deviation 41.4 (36.4-46.3) fL RDW Coeff of Jose Luis 12.1 (11.5-14.5) % Plt Count 398 (130-400) K/uL MPV 9.6 (9.4-12.4) fL Immature Gran % (Auto) 0.7 % Neut % (Auto) 83.0 % Lymph % (Auto) 12.3 % Crook % (Auto) 2.6 % Eos % (Auto) 0.4 % Baso % (Auto) 1.0 % Neut # (Auto) 11.37 H (1.40-6.50) K/uL Lymph # (Auto) 1.68 (1.20-3.40) K/uL Crook # (Auto) 0.35 (0.11-0.59) K/uL Eos # (Auto) 0.06 (0.00-0.50) K/uL Baso # (Auto) 0.13 (0.00-0.20) K/uL Immature Gran # (Auto) 0.09 (0.01-0.20) K/uL Sodium 138 (136-145) mmol/L Potassium 4.0 (3.5-5.1) mmol/L Chloride 106 (98-107) mmol/L Carbon Dioxide 24 (21-32) mmol/L Anion Gap 8 (3-11) BUN 10 (6-23) mg/dl Creatinine 0.84 (0.6-1.2) mg/dl Est Cr Clr Drug Dosing 72.3 ml/min eGFR 80.00 BUN/Creatinine Ratio 11.9 (10-20) Glucose 195 H (70-99(Fasting)) mg/dl Calcium 9.7 (8.6-10.3) mg/dl Magnesium 1.7 (1.7-2.4) mg/dl Total Bilirubin 0.4 (0.2-1.0) mg/dl AST 14 (13-39) U/L ALT 12 (7-52) U/L Alkaline Phosphatase 85 (34-104) U/L Troponin I High Sens 9.5 (0-14) pg/ml Total Protein 7.9 (6.0-8.3) gm/dl Albumin 4.3 (3.4-5.0) gm/dl Globulin 3.6 (2.5-4.0) gm/dl Albumin/Globulin Ratio 1.2 (0.9-2) Lipase 31 (11-82) U/L Administered Medications Discontinued Medications Diphenhydramine HCl (Diphenhydramine 50 Mg/Ml Vial) 25 mg IV NOW STA Stop: 03/31/25 09:51 Last Admin: 03/31/25 10:32 Dose: 25 mg Documented By: Hydromorphone HCl (Hydromorphone Inj 0.5 Mg/0.5 Ml Syr) 0.5 mg IV NOW STA Stop: 03/31/25 09:51 Last Admin: 03/31/25 10:01 Dose: 0.5 mg Documented By: Sodium Chloride (Nss) 1,000 mls @ 999 mls/hr IV .Q1H1M ONE Stop: 03/31/25 10:50 Last Infusion: 03/31/25 11:34 Dose: Infused Documented By: Admin: 03/31/25 10:03 Dose: 999 mls/hr Documented By: Ioversol (Optiray 320 100ml) 94 ml IV ONCE ONE Stop: 03/31/25 11:03 Last Admin: 03/31/25 11:03 Dose: 94 ml Documented By: TAYLER Labetalol HCl (Labetalol Hcl Iv 5 Mg/Ml 20ml) 10 mg IV NOW STA Stop: 03/31/25 10:10 Last Admin: 03/31/25 10:22 Dose: 10 mg Documented By: Methylprednisolone (Methylprednisolone 125 Mg/2 Ml Vial) 60 mg IV NOW STA Stop: 03/31/25 09:51 Last Admin: 03/31/25 10:32 Dose: 60 mg Documented By: Ondansetron HCl (Ondansetron Inj 2 Mg/Ml 2 Ml Vial) 4 mg IV NOW STA Stop: 03/31/25 09:51 Last Admin: 03/31/25 10:01 Dose: 4 mg Documented By: Imaging Data Radiologist's Impression: Chest X-Ray 03/31/25 09:45 XR chest 1V portable HISTORY: 60 years-old Female abd pain acute chest and abdominal pain COMPARISON: Chest radiograph 02/08/2025 TECHNIQUE: AP view of the chest FINDINGS: Cardiomediastinal and hilar silhouettes are within normal limits. No pneumothorax, pleural effusion or airspace consolidation. Emphysema with chronic interstitial coarsening. Cervical spinal fusion hardware. Chronic rib fractures again noted. IMPRESSION: Emphysema without acute process. ACT 112: Negative or not required by law. The above report was generated using voice recognition software. It may contain grammatical, syntax or spelling errors. Electronically signed by: Álvaro Jimenez M.D. 03/31/2025 10:28 AM Abdomen/Pelvis CT 03/31/25 09:52 CT SCAN OF THE ABDOMEN AND PELVIS WITH IV CONTRAST CLINICAL HISTORY: Right upper quadrant pain status post cholecystectomy. COMPARISON STUDY: Abdominal CT dated 02/08/2025. TECHNIQUE: Following the IV administration of 94 cc of Optiray 320, CT scan of the abdomen and pelvis is performed from the lung bases to the proximal femora. Images are reviewed in the axial, sagittal, and coronal planes. IV contrast was administered without complication. A dose lowering technique was utilized adhering to the principles of ALARA. CT DOSE: 1188.21 mGy.cm FINDINGS: Lung bases: The heart is normal in size and without pericardial effusion. The lung bases are clear noting dependent atelectasis. Liver: The contrast-enhanced liver is normal in size, contour, and attenuation. There is minimal central intrahepatic biliary ductal dilatation. The hepatic veins and portal veins are patent. Gallbladder: The gallbladder surgically absent noting clips in the gallbladder fossa. There is a 2.3 x 2.8 x 2.2 cm pocket of fluid in the gallbladder fossa seen on axial image #128. This contains a tiny focus of gas comment there is mild surrounding alteration. Spleen: Normal in size and attenuation. Pancreas: Unremarkable. Adrenal glands: Unremarkable. Kidneys: The contrast enhanced kidneys are normal in size and without hydronephrosis. The kidneys enhance symmetrically. Abdominal vasculature: There is advanced atherosclerotic calcification of the abdominal aorta. An infrarenal aortic bypass is patent, as is a right iliac artery bypass. The left iliac artery bypass is occluded and there is a patent femorofemoral bypass. Imaged portions of the common femoral and proximal superficial femoral arteries are patent. There is high-grade stenosis with near complete occlusion of the [employer] left common iliac artery seen on image #220. The [employer] [place] internal iliac arteries are patent bilaterally. The [place] external iliac arteries are occluded. Bowel: There is moderate colonic diverticulosis without CT evidence of acute diverticulitis. No bowel obstruction is seen. The appendix is well-visualized and normal. Peritoneum: There is no intraperitoneal free air or abdominal ascites. A midline surgical scar is noted. There are several fat containing supraumbilical hernias. Lymphadenopathy: None. Pelvic viscera: The bladder is normal as visualized. The uterus is surgically absent. No adnexal lesion is seen. Skeletal structures: There is mild/moderate lumbosacral spondylosis. No lytic or blastic lesions are seen. IMPRESSION: 1. There is postsurgical change from interval cholecystectomy. 2. A 2.8 cm pocket of fluid is seen in the gallbladder fossa. This contains a tiny focus of gas and there is mild surrounding infiltration. This may represent a postoperative hematoma or seroma. A small biloma could appear similar, and the sterility of this fluid cannot be assessed imaging. Clinical correlation will be essential. 3. Colonic diverticulosis without CT evidence of acute diverticulitis. 4. Atherosclerotic vascular disease with patent aortic and right iliac artery bypasses as well as a patent femorofemoral bypass. The left iliac bypass is occluded. 5. Additional findings as above. ACT 112: Negative or not required by law. Electronically signed by: Armin Sylvester M.D. 03/31/2025 11:27 AM Hepatobiliary Scan Nuclear Medicine 03/31/25 11:45 NUCLEAR MEDICINE HEPATOBILIARY SCAN CLINICAL HISTORY: Abdominal pain status post cholecystectomy. Evaluate for a bile leak. COMPARISON: CT of the abdomen and pelvis March 31, 2025. TECHNIQUE: 5.4 mCi of technetium 99m Choletec IV was injected at 12:50 PM on March 31, 2025. Immediately following injection, imaging of the abdomen was carried out for 60 minutes in the anterior projection. FINDINGS: Hepatic uptake of radiotracer is prompt and homogeneous. Radiotracer is identified within the common bile duct and small bowel at 15 minutes. No extraluminal radiotracer is identified to suggest a bile leak. IMPRESSION: No scintigraphic evidence for a bile leak. ACT 112: Negative or not required by law. Electronically signed by: Flynn Shipley M.D. 03/31/2025 2:17 PM Discharge Plan Visit Data Chief Complaint: Abdominal Pain Stated Complaint: AB PAIN ED Provider: Armin Tariq Discharge Problem: RUQ abdominal pain, Vomiting and diarrhea, Leukocytosis, S/P cholecystectomy, Hypertension Patient Disposition: Admitted As Inpatient Condition: Fair Forms Stand Alone Forms: [facility] Prescriptions Prescriptions: No Action (DME) blood-glucose meter [FreeStyle Lite Meter] Kit See Rx Instructions .Route Qty: 1 0RF Rx Instructions: Check blood glucose once per day (DME) FreeStyle Lite Strips Strip See Rx Instructions .Route Qty: 100 0RF Rx Instructions: Use with meter to check BG once per day (DME) lancets Misc See Rx Instructions .Route Qty: 100 0RF Rx Instructions: use with meter to heck BG once per day Eliquis 5 mg tablet 5 mg PO BID Qty: 180 1RF Hold Instructions: Resume on 03/22/25. levetiracetam [Keppra] 1,000 mg tablet 1,000 mg PO BID Qty: 180 3RF amitriptyline 25 mg tablet 25 mg PO HS Qty: 90 1RF clopidogrel [Plavix] 75 mg tablet 75 mg PO HS Qty: 90 1RF Hold Instructions: Resume on 03/22/25. Patient Comments: PER DR MAYNARD OFFICE, TOLD TO STOP 7 DAYS BEFORE PROCEDURE nitroglycerin 0.4 mg tablet, sublingual 0.4 mg sublingual UD PRN (Reason: Chest Pain) rosuvastatin [Crestor] 40 mg tablet 40 mg PO HS Qty: 90 3RF pantoprazole [Protonix] 40 mg tablet,delayed release (DR/EC) 40 mg PO QAM carvedilol 25 mg tablet 25 mg PO BID Qty: 60 2RF Rx Instructions: must administer with a meal/food Entresto 97-103 mg tablet 1 tab PO BID Qty: 60 2RF cholecalciferol (vitamin D3) [Vitamin D3] 125 mcg (5,000 unit) Tablet 125 mcg PO DAILY potassium chloride 20 mEq tablet extended release 20 meq PO QAM Zostrix 0.033 % Cream 1 applic EXT DAILY PRN (Reason: nausea, abdominal pain) Qty: 0 0RF Rx Instructions: buy over the counter ondansetron 4 mg tablet,disintegrating 4 mg PO Q6H PRN (Reason: nausea and vomiting) Qty: 30 0RF quetiapine [Seroquel] 25 mg tablet 25 mg PO Q8H PRN (Reason: nausea and vomiting) venlafaxine 75 mg capsule,extended release 24hr 75 mg PO QAM Rx Instructions: Take along with 150 mg tab for total of 225 mg daily venlafaxine 150 mg capsule,extended release 24hr 150 mg PO QAM Rx Instructions: Take 150 mg for one week before adding 75 mg capsule for total of 225 mg daily. ezetimibe 10 mg Tablet 10 mg PO QAM Referrals Referrals: Teena Killian DO [Primary Care Provider] - Discharge Problem: Leukocytosis Qualifiers: Leukocytosis type: unspecified Qualified Code(s): D72.829 - Elevated white blood cell count, unspecified Hypertension Qualifiers: Hypertension type: unspecified Qualified Code(s): I10 - Essential (primary) hypertension
[2025-03-31] MEDS: HYDROmorphone INJ 0.5 MG/0.5 ML SYR IV STA (10:01)
[2025-03-31] MEDS: ONDANSETRON INJ 2 MG/ML 2 ML VIAL IV STA (10:01)
[2025-03-31] MEDS: SODIUM CHLORIDE 0.9% 1,000 ML IV ONE (10:03)
[2025-03-31 10:07] LABS: Hematocrit (blood only) 45.1 % (37.0-47.0); Hemoglobin 15.0 g/dl (12.0-16.0); Immature Granulocytes # (auto) 0.09 K/uL (0.01-0.20); Immature Granulocytes % (auto) 0.7 %; Mean Corpuscular Hemoglobin 30.7 pg (25.0-34.0); Mean Corpuscular Volume 92.4 fL (80.0-100.0); Platelet Count 398 K/uL (130-400); RDW Standard Deviation 41.4 fL (36.4-46.3); Red Blood Count 4.88 M/uL (4.20-5.40); White Blood Count 13.68 K/ul (4.8-10.8)
[2025-03-31] MEDS: LABETALOL HCL IV 5 MG/ML 20ML IV STA (10:22)
[2025-03-31 10:24] LABS: Alanine Aminotransferase 12.0 U/L (7-52); Albumin Globulin Ratio 1.2 (0.9-2); Alkaline Phosphatase 85.0 U/L (34-104); Anion Gap 8.0 (3-11); Bilirubin,Total 0.4 mg/dl (0.2-1.0); Blood Urea Nitrogen 10.0 mg/dl (6-23); Calcium 9.7 mg/dl (8.6-10.3); Carbon Dioxide 24.0 mmol/L (21-32); Chloride 106.0 mmol/L (98-107); Creatinine Clr Calc Pharmacy 72.3 ml/min; Globulin 3.6 gm/dl (2.5-4.0); Glucose 195.0 mg/dl (70-99(Fasting)); Lipase 31.0 U/L (11-82); Magnesium 1.7 mg/dl (1.7-2.4); Potassium 4.0 mmol/L (3.5-5.1); Sodium 138.0 mmol/L (136-145); Total Protein 7.9 gm/dl (6.0-8.3)
--- NOTE | 2025-03-31 10:29 | XRay Report ---
XR chest 1V portable HISTORY: 60 years-old Female abd pain acute chest and abdominal pain COMPARISON: Chest radiograph 02/08/2025 TECHNIQUE: AP view of the chest FINDINGS: Cardiomediastinal and hilar silhouettes are within normal limits. No pneumothorax, pleural effusion o r airspace consolidation. Emphysema with chronic interstitial coarsening. Cervical spinal fusion hard chapman. Chronic rib fractures again noted. IMPRESSION: Emphysema without acute process. ACT 112: Negative or not required by law. The above report was generated using voice recognition software. It may contain grammatical, syntax o r spelling errors. Electronically signed by: Álvaro Jimenez M.D. 03/31/2025 10:28 AM
[2025-03-31] MEDS: diphenhydrAMINE 50 MG/ML VIAL IV STA (10:32)
[2025-03-31] MEDS: OPTIRAY 320 100ml IV ONE (11:03)
--- NOTE | 2025-03-31 11:29 | CT Scan Report ---
CT SCAN OF THE ABDOMEN AND PELVIS WITH IV CONTRAST CLINICAL HISTORY: Right upper quadrant pain status post cholecystectomy. COMPARISON STUDY: Abdominal CT dated 02/08/2025. TECHNIQUE: Following the IV administration of 94 cc of Optiray 320, CT scan of the abdomen and pelvi s is performed from the lung bases to the proximal femora. Images are reviewed in the axial, sagittal , and coronal planes. IV contrast was administered without complication. A dose lowering technique wa s utilized adhering to the principles of ALARA. CT DOSE: 1188.21 mGy.cm FINDINGS: Lung bases: The heart is normal in size and without pericardial effusion. The lung bases are clear no ting dependent atelectasis. Liver: The contrast-enhanced liver is normal in size, contour, and attenuation. There is minimal cent ral intrahepatic biliary ductal dilatation. The hepatic veins and portal veins are patent. Gallbladder: The gallbladder surgically absent noting clips in the gallbladder fossa. There is a 2.3 x 2.8 x 2.2 cm pocket of fluid in the gallbladder fossa seen on axial image #128. This contains a tin y focus of gas comment there is mild surrounding alteration. Spleen: Normal in size and attenuation. Pancreas: Unremarkable. Adrenal glands: Unremarkable. Kidneys: The contrast enhanced kidneys are normal in size and without hydronephrosis. The kidneys enh ance symmetrically. Abdominal vasculature: There is advanced atherosclerotic calcification of the abdominal aorta. An inf rarenal aortic bypass is patent, as is a right iliac artery bypass. The left iliac artery bypass is o ccluded and there is a patent femorofemoral bypass. Imaged portions of the common femoral and proxima l superficial femoral arteries are patent. 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 The [place] internal iliac arteries are pat ent bilaterally. The [place] external iliac arteries are occluded. Bowel: There is moderate colonic diverticulosis without CT evidence of acute diverticulitis. No bowel obstruction is seen. The appendix is well-visualized and normal. Peritoneum: There is no intraperitoneal free air or abdominal ascites. A midline surgical scar is not ed. There are several fat containing supraumbilical hernias. Lymphadenopathy: None. Pelvic viscera: The bladder is normal as visualized. The uterus is surgically absent. No adnexal lesi on is seen. Skeletal structures: There is mild/moderate lumbosacral spondylosis. No lytic or blastic lesions are seen. IMPRESSION: 1. There is postsurgical change from interval cholecystectomy. 2. A 2.8 cm pocket of fluid is seen in the gallbladder fossa. This contains a tiny focus of gas and t here is mild surrounding infiltration. This may represent a postoperative hematoma or seroma. A small biloma could appear similar, and the sterility of this fluid cannot be assessed imaging. Clinical co rrelation will be essential. 3. Colonic diverticulosis without CT evidence of acute diverticulitis. 4. Atherosclerotic vascular disease with patent aortic and right iliac artery bypasses as well as a p atent femorofemoral bypass. The left iliac bypass is occluded. 5. Additional findings as above. ACT 112: Negative or not required by law. Electronically signed by: Armin Sylvester M.D. 03/31/2025 11:27 AM
--- NOTE | 2025-03-31 11:58 | Surgery Consultation ---
Date of Consultation March 31, 2025 Assessment & Plan (1) Cholelithiasis: This is a 60y F with multiple medical issues including DM, GERD, HTN, CAD, HLD, Anxiety, multiple vascular procedures including an aortofemoral bypass who presents to the [facility] ED on 03/31 with complaints of right upper quadrant pain associated with nausea/vomiting starting this AM. Of significance the patient is s/p a lap dewey with dr. el on 03/17 with intraop cholangiogram. Intraop the cholangiogram showed possible narrowing of the distal common bile duct we have been monitoring. She has been doing fairly well since discharge & was seen in our outpatient office for a follow up with good results. Then this AM when she developed the above symptoms which brought her in. She underwent a CT a/p in her workup that revealed 2.8 cm pocket of fluid in the gallbladder fossa. The patient currently feels better than when she presented this AM. In the ER her labs show WBC 13.6, Hbg 15, LFTs are all within normal limits. Patient was hypertensive to the >200/>130s on arrival, now last BP read 123/83. She is afebrile and not tachycardic. On exam abdomen is soft, incisions healing well, and has mild/moderate discomfort to palpation in the RUQ with deep palpation. The findings in the gallbladder fossa have a high probability of being the surgicel that was placed intraoperatively. Agree though with covering her with abx for now given WBC 13. We will order a HIDA scan to rule out leak, but have a low suspicion for this. LFTs are normal. The ER believes she warrants admission for at least observation, would appreciate the hospitalist team admitting her for her multiple medical issues. We will follow along. Supervising Physician Co-Signing Physician Notes 60-year-old female 2 weeks status post laparoscopic cholecystectomy with Dr. El She has a small area in the gallbladder fossa around 3 cm that could be fluid versus retained Surgicel She is being admitted to the medical team We will get a HIDA for completeness to rule out a bile leak, although this is extremely unlikely 2 weeks after surgery If the HIDA is negative for leak, she can have a diet from a surgical standpoint History of Present Illness History of Present Illness This is a 60y F with multiple medical issues including DM, GERD, HTN, CAD, HLD, Anxiety, multiple vascular procedures including an aortofemoral bypass who presents to the [facility] ED on 03/31 with complaints of right upper quadrant pain associated with nausea/vomiting starting this AM. Of significance the patient is s/p a lap dewey with dr. el on 03/17 with intraop cholangiogram. Intraop the cholangiogram showed possible narrowing of the distal common bile duct we have been monitoring. She has been doing fairly well since discharge & was seen in our outpatient office for a follow up with good results. Then this AM when she developed the above symptoms which brought her in. She underwent a CT a/p in her workup that revealed 2.8 cm pocket of fluid in the gallbladder fossa. The patient currently feels better than when she presented this AM. Allergies Allergy/AdvReac Type Severity Reaction Status Date / Time napoles Allergy Intermediate Hives Verified 03/23/25 15:31 (green/hartman beans) broccoli Allergy Intermediate Bruising Verified 03/23/25 15:31 doxycycline Allergy Intermediate Hives, Verified 03/23/25 15:31 vomiting Iodinated Contrast Media Allergy Intermediate Large Verified 03/23/25 15:31 hives, vomiting, "feeling hot" iodine Allergy Intermediate Hives, Verified 03/23/25 15:31 vomiting latex Allergy Intermediate Rash Verified 03/23/25 15:31 loperamide Allergy Intermediate Hives, Verified 03/23/25 15:31 vomiting meperidine Allergy Intermediate Hives, Verified 03/23/25 15:31 vomiting strawberry Allergy Intermediate Hives Verified 03/23/25 15:31 tomato Allergy Intermediate Hives Verified 03/23/25 15:31 prochlorperazine Allergy Mild Nausea, Verified 03/23/25 15:31 vomiting, itchiness polyethylene glycol AdvReac Intermediate Elevated Verified 03/23/25 15:31 [From Golytely] BP/Vomiting polyethylene glycol 3350 AdvReac Intermediate Elevated Verified 03/23/25 15:31 [From Golytely] BP/Vomiting potassium chloride AdvReac Intermediate Elevated Verified 03/23/25 15:31 [From Golytely] BP/Vomiting sodium [From Golytely] AdvReac Intermediate Elevated Verified 03/23/25 15:31 BP/Vomiting sodium bicarbonate AdvReac Intermediate Elevated Verified 03/23/25 15:31 [From Golytely] BP/Vomiting sodium chloride AdvReac Intermediate Elevated Verified 03/23/25 15:31 [From Golytely] BP/Vomiting sodium sulfate AdvReac Intermediate Elevated Verified 03/23/25 15:31 [From Golytely] BP/Vomiting Home Medications Medication Instructions Recorded Confirmed Type nitroglycerin 0.4 mg sublingual 0.4 mg sublingual UD PRN Chest Pain 06/07/24 03/31/25 History tablet blood sugar diagnostic (FreeStyle #100 ea 06/17/24 03/23/25 Rx Lite Strips) blood-glucose meter (FreeStyle #1 ea 06/17/24 03/23/25 Rx Lite Meter kit) lancets #100 ea 06/17/24 03/23/25 Rx apixaban 5 mg tablet (Eliquis) 5 mg PO BID #180 tabs 10/11/24 03/31/25 Rx levetiracetam 1,000 mg tablet 1,000 mg PO BID #180 tabs 10/18/24 03/31/25 Rx (Keppra) rosuvastatin 40 mg tablet (Crestor) 40 mg PO HS #90 tabs 11/10/24 03/31/25 Rx cholecalciferol (vitamin D3) 125 125 mcg PO DAILY 12/08/24 03/31/25 History mcg (5,000 unit) tablet (Vitamin D3) potassium chloride 20 mEq 20 meq PO QAM 12/08/24 03/31/25 History tablet,extended release amitriptyline 25 mg tablet 25 mg PO HS #90 tabs 12/20/24 03/31/25 Rx clopidogrel 75 mg tablet (Plavix) 75 mg PO HS #90 tabs 01/04/25 03/31/25 Rx capsaicin 0.033 % topical cream 1 applic EXT DAILY PRN nausea, 02/10/25 03/31/25 Rx (Zostrix) abdominal pain #0 grams ondansetron 4 mg disintegrating 4 mg PO Q6H PRN nausea and 02/10/25 03/31/25 Rx tablet vomiting #30 tabs carvedilol 25 mg tablet 25 mg PO BID #60 tabs 02/22/25 03/31/25 Rx pantoprazole 40 mg tablet,delayed 40 mg PO QAM gastritis 02/22/25 03/31/25 History release (Protonix) sacubitril 97 mg-valsartan 103 mg 1 tab PO BID #60 tabs 02/22/25 03/31/25 Rx tablet (Entresto) ezetimibe 10 mg tablet 10 mg PO QAM 03/10/25 03/31/25 History quetiapine 25 mg tablet (Seroquel) 25 mg PO Q8H PRN nausea and 03/10/25 03/31/25 History vomiting venlafaxine 150 mg 150 mg PO QAM 03/10/25 03/31/25 History capsule,extended release 24 hr venlafaxine 75 mg capsule,extended 75 mg PO QAM 03/10/25 03/31/25 History release 24 hr Patient History Medical History Hyperlipidemia GERD (gastroesophageal reflux disease) Hypertension Chronic diarrhea "not as bad as when I had my colonoscopy 12/2024" Carotid stenosis < 50% stenosis B/L per US 12/16/18 CAD (coronary artery disease) no stents - Mild-moderate non-obstructive CAD per 2017 cardiac cath - Dr Rodriguez Cholelithiasis Reason for procedure 03/17/25 Vertigo Cerebellar stroke 2022? followed with [facility] [place] Neurology in past no longer with a neurologist - no residuals Obstructive sleep apnea mod-severe per PCP records (does not have device) - has not had sleep study yet due to current medical complications, was to have had testing 01/2025 Diverticulosis Difficult intravenous access Pulmonary emphysema controlled as per patient - quit tobacco use Renal artery stenosis s/p multiple vascular surgeries with Dr Maynard Intractable nausea and vomiting most recently 02/08/25-02/10/25 [facility] IP - [facility] ER 12/03/24 and 12/06/24 History of hypertensive crisis Multiple - Dr Rodriguez Cardiology Gastroenteritis multiple incidents - recently IP [facility] 02/08/25 - 02/10/25 Diabetes mellitus, type 2 Oral - currently on hold History of chest pain as per patient has not needed nitro recently and denies any chest pain at this time. recently took nitro 12/03/24 went to [facility] ER History of stroke 2022? followed with [facility] [place] Neurology in past no longer with a neurologist - no residuals Abdominal pain Chronic - most recently 02/08/25-02/10/25 [facility] IP [facility] ER 12/03/24 & 12/06/24 Decreased appetite as per patient since 07/2024 until 12/2024 went from 208lbs to 160lbs - as of 03/09/25 office visit up to 168lbs Unintentional weight loss as per patient since 07/2024 until 12/2024 went from 208lbs to 160lbs - as per patient 03/09/25 appt was 168lbs History of recent hospitalization 02/08/25-02/10/25 & 12/03/24 & 12/06/24 [facility] ER for abdominal pain, nausea, vomiting . Acute upper gastrointestinal bleeding hx - pt denies at this time Elevated troponin Hypokalemia Hypophosphatemia Tachycardia hx Postoperative nausea Seizures 2019 r/t hypertensive emergency > encephalopathy. last seizure 2019 - tonja mace neurologist Hematemesis hx - pt denies any issues currently History of COVID-19 03/18/22, p[facility], hospitalized day after diagnosis due to vomiting blood, discharged on 03/22/22; fever, vomiting, body chills and aches, diarrhea > resolved currently. Ischemia of right lower extremity Depression Proteinuria hx Cyclic vomiting syndrome still uses medical marijuana Hypercalcemia PRES (posterior reversible encephalopathy syndrome) has since caused seizures that started in 2018. following with PCP, last seizure per pt 08/2019 per PCP records Cannabinoid hyperemesis syndrome History of diverticulitis of colon Most recent 04/2022 - just had CT Abd/Pelvis at [facility] ER 12/2024 - nothing notated Transient cerebrovascular ischemia possibly 2022? patient unsure of when - did follow up with [facility] Neurology, no longer does - no residuals Cervical disc disorder Full ROM per pt Takotsubo cardiomyopathy 2017. Admitted [facility], full cardiac workup including cath. EF at the time 40%, now subsequent echos. Follows with Dr. Rodriguez NSTEMI (non-ST elevated myocardial infarction) 2017 - no stents - Dr Rodriguez Cardiology "I had a couple" as per patient Surgical History S/P laparoscopic cholecystectomy (03/17/25) Laparoscopic Cholecystectomy with Cholangiogram(Not Applicable) - Jerod El MD, FACS History of colonoscopy (12/2024) History of vascular surgery (09/2022) Right Fem to Left Fem Bypass History of anesthesia reaction Low O2 sats during colonoscopy 04/2022 at [facility] and post-procedure elevated BP. Per post-op anesthesia progress note, O2 96-100% RA and "Pt has increased BP 2ndary to abdominal pain. Pt also has nausea w/ dry heaves. Pt to have CT scan per Dr Patten." as per patient most recent colonoscopy 12/2024 had issues post procedure that ended with a trip to [facility] ER History of tooth extraction Upper/Lower Dentures History of cataract surgery bilateral Status post surgery (09/2021) RLE thrombectomy S/P aortobifemoral bypass surgery Sep 2021 [facility] History of esophagogastroduodenoscopy (EGD) (05/2024) H/O cervical spine surgery ACDF C4-7 Dr. Wells: Grade 1 view, Bojorquez#2 and ETT#7.5 atraumatic x 1. No issues per anesthesia postop progress note. ROM WNL History of cardiac cath 2017 > no stents - Dr Rodriguez Cardiology History of ovarian cystectomy History of hernia surgery right inguinal hernia repair History of hysterectomy Family History Father Family history of stomach cancer Malignant neoplasm of esophagus Stomach cancer Myocardial infarction Stroke Heart disease Uncle Throat cancer Family history of cancer FAMILY HISTORY OF CANCER - UNCLE - VOCAL CORDS FAMILY HISTORY OF CANCER - AUNT - ? KIND Grandmother (Maternal) Bone cancer Breast cancer Mother No problems noted. Brother Lung cancer Grandmother Diabetes Other Family history of diabetes mellitus No family history of adverse response to anesthesia No pertinent family history Denies family history of Colon cancer Ovarian cancer Prostate cancer Crohn's disease IBD (inflammatory bowel disease) Social History Smoking Status: Former smoker Tobacco Type: Cigarettes Age Started Using Tobacco: 20; Age Quit Using Tobacco: 49; packs per day: 1.5; Second Hand Exposure: No; Do You Dip or Chew Tobacco: No; Hx Alcohol Use: No Hx Substance Use: Yes Prescribed Medications: Marijuana Last Used Substance: Unknown Last Used Substance Other:: Advised Substance Use Type Other:: Medical Mj - Smoke Flower Preferred Language: Nauruan Communication Ability: Effective Visual Impairment: No Limitations Hearing Ability: Normal Ios Programmer Required: No Beliefs That Will Affect Care: None marital status: Current Living Situation: Significant Other Current Living Situation Comment: with boyfriend current occupational status: disabled 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 Feels Safe at Home: Yes Childhood Exposure to Second-Hand Smoke: Yes Diet: regular Diet Comment: Regular caffeine: Yes (1 cup of coffee) during the past year weight has: other Dental Care, Regularly: No Physical Activity Frequency: Daily Physical Activity Frequency Comment: walking Seatbelt Use: always Sunscreen Use: Yes Assistive Devices: Cane Review of Systems Constitutional: no fever and no chills Gastrointestinal: + abdominal pain (RUQ), + nausea, + vomi ting and + diarrhea/loose stools Genitourinary: no problem reported Physical Exam 2 Physical Exam: awake/alert, no distress Respiratory: normal respiratory effort Gastrointestinal (Abdomen): Inspection/Auscultation: + abdominal surgical incision (c/d/i); abdomen not distended Percussion/Palpation: + abdomen tender (mild/moderate discomfort in the RUQ) and abdomen soft Results & Data Vital Signs (Past 12 Hours) Vital Signs Temp Pulse Resp BP Pulse Ox O2 Del Method 03/31/25 11:17 126/83 03/31/25 10:54 79 18 93 Room Air 03/31/25 10:36 72 15 99/74 L 92 Room Air 03/31/25 10:22 90 211/135 H 03/31/25 10:00 76 19 211/135 H 96 Room Air 03/31/25 09:50 70 20 96 Room Air 03/31/25 09:46 82 03/31/25 09:43 98.1 F 71 20 203/121 H 96 Room Air Diagnostic Findings CT SCAN OF THE ABDOMEN AND PELVIS WITH IV CONTRAST CLINICAL HISTORY: Right upper quadrant pain status post cholecystectomy. COMPARISON STUDY: Abdominal CT dated 02/08/2025. TECHNIQUE: Following the IV administration of 94 cc of Optiray 320, CT scan of the abdomen and pelvis is performed from the lung bases to the proximal femora. Images are reviewed in the axial, sagittal, and coronal planes. IV contrast was administered without complication. A dose lowering technique was utilized adhering to the principles of ALARA. CT DOSE: 1188.21 mGy.cm FINDINGS: Lung bases: The heart is normal in size and without pericardial effusion. The lung bases are clear noting dependent atelectasis. Liver: The contrast-enhanced liver is normal in size, contour, and attenuation. There is minimal central intrahepatic biliary ductal dilatation. The hepatic veins and portal veins are patent. Gallbladder: The gallbladder surgically absent noting clips in the gallbladder fossa. There is a 2.3 x 2.8 x 2.2 cm pocket of fluid in the gallbladder fossa seen on axial image #128. This contains a tiny focus of gas comment there is mild surrounding alteration. Spleen: Normal in size and attenuation. Pancreas: Unremarkable. Adrenal glands: Unremarkable. Kidneys: The contrast enhanced kidneys are normal in size and without hydronephrosis. The kidneys enhance symmetrically. Abdominal vasculature: There is advanced atherosclerotic calcification of the abdominal aorta. An infrarenal aortic bypass is patent, as is a right iliac artery bypass. The left iliac artery bypass is occluded and there is a patent femorofemoral bypass. Imaged portions of the common femoral and proximal superficial femoral arteries are patent. There is high-grade stenosis with near complete occlusion of the [place] left common iliac artery seen on image #220. The [place] internal iliac arteries are patent bilaterally. The [place] external iliac arteries are occluded. Bowel: There is moderate colonic diverticulosis without CT evidence of acute diverticulitis. No bowel obstruction is seen. The appendix is well-visualized and normal. Peritoneum: There is no intraperitoneal free air or abdominal ascites. A midline surgical scar is noted. There are several fat containing supraumbilical hernias. Lymphadenopathy: None. Pelvic viscera: The bladder is normal as visualized. The uterus is surgically absent. No adnexal lesion is seen. Skeletal structures: There is mild/moderate lumbosacral spondylosis. No lytic or blastic lesions are seen. IMPRESSION: 1. There is postsurgical change from interval cholecystectomy. 2. A 2.8 cm pocket of fluid is seen in the gallbladder fossa. This contains a tiny focus of gas and there is mild surrounding infiltration. This may represent a postoperative hematoma or seroma. A small biloma could appear similar, and the sterility of this fluid cannot be assessed imaging. Clinical correlation will be essential. 3. Colonic diverticulosis without CT evidence of acute diverticulitis. 4. Atherosclerotic vascular disease with patent aortic and right iliac artery bypasses as well as a patent femorofemoral bypass. The left iliac bypass is occluded. 5. Additional findings as above. ACT 112: Negative or not required by law. Electronically signed by: Armin Sylvester M.D. 03/31/2025 11:27 AM PG Care Time/CCT Total # of Minutes Spent Total Time Spent with Patient: Total time spent is greater than 50% in coordination of care (as documented) at patient's floor/unit and/or counseling patient: Coding Level of Care Code None Diagnoses Cholelithiasis K80.20
--- NOTE | 2025-03-31 13:35 | History & Physical Report ---
Date of Service March 31, 2025 Assessment & Plan (1) Nausea & vomiting: (2) CAD (coronary artery disease): (3) Cerebellar stroke: (4) Pulmonary emphysema: Plan 60-year-old female with cholecystectomy March 17 with intraoperative cholangiogram presents with nausea vomiting abdominal pain. Initial imaging shows fluid in the gallbladder fossa recommended admitted for antibiotics and to rule out bile leak. Patient has a history of cyclic vomiting syndrome in the past. She has a history of controlled diabetes coronary artery disease hypertension associated renal artery stenosis COPD and tobacco abuse and obstructive sleep apnea. #Nausea vomiting. For concern of recent surgery patient will have a HIDA scan to rule out bile leak. Serology on presentation does not support this. Will continue broad-spectrum antibiotics at this time. Because she is going to be made n.p.o. will use a low volume of crystalloid solution carefully given her history of Takotsubo's cardiomyopathy. Her last ejection fraction was 40%. #Cardiovascular disease. Patient has heart failure with reduced ejection fraction but is not in exacerbation at this time. She will be maintained on carvedilol and Entresto with a small sip. Is a previous history of strokes and is chronically anticoagulated with apixaban and has cardio risk protection with clopidogrel both of these are on hold #Previous history of GI bleed patient be given intravenous famotidine. #COPD. Reportedly the patient has stopped smoking she is not currently on any inhalers. DVT prevention will be started the patient is a hospital more 24 hours likely resumption of her Eliquis if no surgical intervention is required. History of Present Illness Primary Care Provider: Teena Killian DO 60-year-old female presents with 8 hours of abdominal pain nausea and vomiting. Patient had a laparoscopic cholecystectomy with intraoperative cholangiogram on 03/17/[address] Gus Campos. Patient suffers from multiple medical issues including coronary artery disease hypertension previous Takotsubo's cardiomyopathy renal artery stenosis obstructive sleep apnea previous CVA tobacco abuse COPD and glucose intolerance. Imaging shows some fluid in the gallbladder fossa, surgical consultation recommends admission antibiotic and HIDA scan to rule out bile leak. Patient did have significant elevation of her bilirubin consistent with bile leak. These on admission are normal including alkaline phosphatase and total bilirubin Allergies Allergy/AdvReac Type Severity Reaction Status Date / Time napoles Allergy Intermediate Hives Verified 03/23/25 15:31 (green/hartman beans) broccoli Allergy Intermediate Bruising Verified 03/23/25 15:31 doxycycline Allergy Intermediate Hives, Verified 03/23/25 15:31 vomiting Iodinated Contrast Media Allergy Intermediate Large Verified 03/23/25 15:31 hives, vomiting, "feeling hot" iodine Allergy Intermediate Hives, Verified 03/23/25 15:31 vomiting latex Allergy Intermediate Rash Verified 03/23/25 15:31 loperamide Allergy Intermediate Hives, Verified 03/23/25 15:31 vomiting meperidine Allergy Intermediate Hives, Verified 03/23/25 15:31 vomiting strawberry Allergy Intermediate Hives Verified 03/23/25 15:31 tomato Allergy Intermediate Hives Verified 03/23/25 15:31 prochlorperazine Allergy Mild Nausea, Verified 03/23/25 15:31 vomiting, itchiness polyethylene glycol AdvReac Intermediate Elevated Verified 03/23/25 15:31 [From Golytely] BP/Vomiting polyethylene glycol 3350 AdvReac Intermediate Elevated Verified 03/23/25 15:31 [From Golytely] BP/Vomiting potassium chloride AdvReac Intermediate Elevated Verified 03/23/25 15:31 [From Golytely] BP/Vomiting sodium [From Golytely] AdvReac Intermediate Elevated Verified 03/23/25 15:31 BP/Vomiting sodium bicarbonate AdvReac Intermediate Elevated Verified 03/23/25 15:31 [From Golytely] BP/Vomiting sodium chloride AdvReac Intermediate Elevated Verified 03/23/25 15:31 [From Golytely] BP/Vomiting sodium sulfate AdvReac Intermediate Elevated Verified 03/23/25 15:31 [From Golytely] BP/Vomiting Home Medications Medication Instructions Recorded Confirmed Type nitroglycerin 0.4 mg sublingual 0.4 mg sublingual UD PRN Chest Pain 06/07/24 03/31/25 History tablet blood sugar diagnostic (FreeStyle #100 ea 06/17/24 03/23/25 Rx Lite Strips) blood-glucose meter (FreeStyle #1 ea 06/17/24 03/23/25 Rx Lite Meter kit) lancets #100 ea 06/17/24 03/23/25 Rx apixaban 5 mg tablet (Eliquis) 5 mg PO BID #180 tabs 10/11/24 03/31/25 Rx levetiracetam 1,000 mg tablet 1,000 mg PO BID #180 tabs 10/18/24 03/31/25 Rx (Keppra) rosuvastatin 40 mg tablet (Crestor) 40 mg PO HS #90 tabs 11/10/24 03/31/25 Rx cholecalciferol (vitamin D3) 125 125 mcg PO DAILY 12/08/24 03/31/25 History mcg (5,000 unit) tablet (Vitamin D3) potassium chloride 20 mEq 20 meq PO QAM 12/08/24 03/31/25 History tablet,extended release amitriptyline 25 mg tablet 25 mg PO HS #90 tabs 12/20/24 03/31/25 Rx clopidogrel 75 mg tablet (Plavix) 75 mg PO HS #90 tabs 01/04/25 03/31/25 Rx capsaicin 0.033 % topical cream 1 applic EXT DAILY PRN nausea, 02/10/25 03/31/25 Rx (Zostrix) abdominal pain #0 grams ondansetron 4 mg disintegrating 4 mg PO Q6H PRN nausea and 02/10/25 03/31/25 Rx tablet vomiting #30 tabs carvedilol 25 mg tablet 25 mg PO BID #60 tabs 02/22/25 03/31/25 Rx pantoprazole 40 mg tablet,delayed 40 mg PO QAM gastritis 02/22/25 03/31/25 History release (Protonix) sacubitril 97 mg-valsartan 103 mg 1 tab PO BID #60 tabs 02/22/25 03/31/25 Rx tablet (Entresto) ezetimibe 10 mg tablet 10 mg PO QAM 03/10/25 03/31/25 History quetiapine 25 mg tablet (Seroquel) 25 mg PO Q8H PRN nausea and 03/10/25 03/31/25 History vomiting venlafaxine 150 mg 150 mg PO QAM 03/10/25 03/31/25 History capsule,extended release 24 hr venlafaxine 75 mg capsule,extended 75 mg PO QAM 03/10/25 03/31/25 History release 24 hr Past Med/Surg History Problem List Cholelithiasis Cyclic vomiting syndrome (Acute) Chronic diarrhea Obstructive sleep apnea no device d/t recall - to have sleep study 01/18/25 Non-ST elevation PR (NSTEMI) (Acute) Diabetes mellitus Occlusion of left iliac artery Seizure disorder Upper gastrointestinal bleed 2021, resolved Peripheral arterial disease Bilateral external iliac artery occlusion with common femoral artery reconstitution-02/2021 aorta with runoff CTA, follows with Dr. Maynard Cyclic vomiting syndrome no GI pathology on EGD, US, CT of abd/pelvis, celiac testing and GES per 04/2020 GI consult: biliary w/u and upper GI study recommended (upper GI study neg per d/c summary), cannabis cessation, continue Protonix and prn Zofran > currently controlled GERD (gastroesophageal reflux disease) Vitamin D deficiency HTN (hypertension) (Acute) h/o multiple hypertensive urgency episodes, renal artery stenosis, following with cardiology and vascular surgery Cervical spondylosis with myelopathy and radiculopathy Carpal tunnel syndrome Anxiety disorder Hyperlipidemia Multiple thyroid nodules Pulmonary emphysema well controlled per pt Hx-TIA (transient ischemic attack) pt denies CAD (coronary artery disease) Mild-moderate non-obstructive CAD per 2016 cardiac cath Carotid stenosis < 50% stenosis B/L per US 12/16/18 Marijuana dependence (Acute) Medical History Hyperlipidemia GERD (gastroesophageal reflux disease) Hypertension Chronic diarrhea "not as bad as when I had my colonoscopy 12/2024" Carotid stenosis < 50% stenosis B/L per US 12/16/18 CAD (coronary artery disease) no stents - Mild-moderate non-obstructive CAD per 2016 cardiac cath - Dr Rodriguez Cholelithiasis Reason for procedure 03/17/25 Vertigo Cerebellar stroke 2022? [place] [facility] [place] past no longer with a neurologist - no residuals Obstructive sleep apnea mod-severe per PCP records (does not have device) - has not had sleep study yet due to current medical complications, was to have had testing 01/2025 Diverticulosis Difficult intravenous access Pulmonary emphysema controlled as per patient - quit tobacco use Renal artery stenosis s/p multiple vascular surgeries with Dr Maynard Intractable nausea and vomiting most recently 02/08/25-02/10/25 [facility] IP - [facility] ER 12/03/24 and 12/06/24 History of hypertensive crisis Multiple - Dr Rodriguez Cardiology Gastroenteritis multiple incidents - recently IP [facility] 02/08/25 - 02/10/25 Diabetes mellitus, type 2 Oral - currently on hold History of chest pain as per patient has not needed nitro recently and denies any chest pain at this time. recently took nitro 12/03/24 went to [facility] ER History of stroke 2022? followed with [facility] [place] in past no longer with a neurologist - no residuals Abdominal pain Chronic - most recently 02/08/25-02/10/25 [facility] IP [facility] ER 12/03/24 & 12/06/24 Decreased appetite as per patient since 07/2024 until 12/2024 went from 208lbs to 160lbs - as of 03/09/25 office visit up to 168lbs Unintentional weight loss as per patient since 07/2024 until 12/2024 went from 208lbs to 160lbs - as per patient 03/09/25 appt was 168lbs History of recent hospitalization 02/08/25-02/10/25 & 12/03/24 & 12/06/24 [facility] ER for abdominal pain, nausea, vomiting. Acute upper gastrointestinal bleeding hx - pt denies at this time Elevated troponin Hypokalemia Hypophosphatemia Tachycardia hx Postoperative nausea Seizures 2019 r/t hypertensive emergency > encephalopathy. last seizure 2019 - tonja mace neurologist Hematemesis hx - pt denies any issues currently History of COVID-19 03/18/22, [facility] [place], hospitalized day after diagnosis due to vomiting blood, discharged on 03/22/22; fever, vomiting, body chills and aches, diarrhea > resolved currently. Ischemia of right lower extremity Depression Proteinuria hx Cyclic vomiting syndrome still uses medical marijuana Hypercalcemia PRES (posterior reversible encephalopathy syndrome) has since caused seizures that started in 2019. following with PCP, last seizure per pt 08/2019 per PCP records Cannabinoid hyperemesis syndrome History of diverticulitis of colon Most recent 04/2022 - just had CT Abd/Pelvis at [facility] ER 12/2024 - nothing notated Transient cerebrovascular ischemia possibly 2022? patient unsure of when - did follow up with [facility] Neurology, no longer does - no residuals Cervical disc disorder Full ROM per pt Takotsubo cardiomyopathy 2016. Admitted [facility], full cardiac workup including cath. EF at the time 40%, now subsequent echos. Follows with Dr. Rodriguez NSTEMI (non-ST elevated myocardial infarction) 2017 - no stents - Dr Rodriguez Cardiology "I had a couple" as per patient Surgical History S/P laparoscopic cholecystectomy (03/17/25) Laparoscopic Cholecystectomy with Cholangiogram(Not Applicable) - Jerod Stewart MD, FACS History of colonoscopy (12/2024) History of vascular surgery (09/2022) Right Fem to Left Fem Bypass History of anesthesia reaction Low O2 sats during colonoscopy 04/2022 at [facility] and post-procedure elevated BP. Per post-op anesthesia progress note, O2 96-100% RA and "Pt has increased BP 2ndary to abdominal pain. Pt also has nausea w/ dry heaves. Pt to have CT scan per Dr Patten." as per patient most recent colonoscopy 12/2024 had issues post procedure that ended with a trip to [facility] ER History of tooth extraction Upper/Lower Dentures History of cataract surgery bilateral Status post surgery (09/2021) RLE thrombectomy S/P aortobifemoral bypass surgery Sep 2021 [facility] History of esophagogastroduodenoscopy (EGD) (05/2024) H/O cervical spine surgery ACDF C4-7 Dr. Wells: Grade 1 view, Bojorquez#2 and ETT#7.5 atraumatic x 1. No issues per anesthesia postop progress note. ROM WNL History of cardiac cath 2017 > no stents - Dr Rodriguez Cardiology History of ovarian cystectomy History of hernia surgery right inguinal hernia repair History of hysterectomy Family History Father Family history of stomach cancer Malignant neoplasm of esophagus Stomach cancer Myocardial infarction Stroke Heart disease Uncle Throat cancer Family history of cancer FAMILY HISTORY OF CANCER - UNCLE - VOCAL CORDS FAMILY HISTORY OF CANCER - AUNT - ? KIND Grandmother (Maternal) Bone cancer Breast cancer Mother No problems noted. Brother Lung cancer Grandmother Diabetes Other Family history of diabetes mellitus No family history of adverse response to anesthesia No pertinent family history Denies family history of Colon cancer Ovarian cancer Prostate cancer Crohn's disease IBD (inflammatory bowel disease) Social History Smoking Status: Former smoker Tobacco Type: Cigarettes Age Started Using Tobacco: 20; Age Quit Using Tobacco: 49; packs per day: 1.5; Second Hand Exposure: No; Do You Dip or Chew Tobacco: No; Hx Alcohol Use: No Hx Substance Use: Yes Prescribed Medications: Marijuana Last Used Substance: Unknown Last Used Substance Other:: Advised Substance Use Type Other:: Medical Mj - Smoke Flower Preferred Language: Kyrgyz Communication Ability: Effective Visual Impairment: No Limitations Hearing Ability: Normal Computer Trainer Required: No Beliefs That Will Affect Care: None marital status: Current Living Situation: Significant Other Current Living Situation Comment: with boyfriend current occupational status: disabled 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 Feels Safe at Home: Yes Childhood Exposure to Second-Hand Smoke: Yes Diet: regular Diet Comment: Regular caffeine: Yes (1 cup of coffee) during the past year weight has: other Dental Care, Regularly: No Physical Activity Frequency: Daily Physical Activity Frequency Comment: walking Seatbelt Use: always Sunscreen Use: Yes Assistive Devices: Cane Review of Systems Review of Systems: Mild distress and fatigue no headache, no visual changes no speech or swallowing issues no chest pain, pressure or palpitations no shortness of breath, cough or wheezes abdominal pain, nausea or vomiting, diarrhea or constipation no dysuria, hematuria or frequency no focal joint pain or swelling no back pain, CVA tenderness or radicular pain no bruising, bleeding or rashes no focal signs of weakness or numbness or altered sensation no complaints of anxiety or depression.. Physical Exam Physical Exam: The patient appeared well nourished and normally developed. Vital signs as documented. Head exam is normocephalic atraumatic Neck is without JVD, thyromegaly, or carotid bruits. Lungs are clear to auscultation, no focal loss of breath sounds Cardiac exam, Rhythm is regular.. No murmurs, rubs or gallops. Abdominal exam reveals normal bowel sounds, has abdominal pain mostly ruq and RLQ Extremities are nonedematous and both pedal pulses are present Neurologic exam is alert and oriented, no focal loss of strength or sensation Skin is without bruises or rashes Psychologically is without concerns for anxiety or depression.. Results & Data Results & Data Vital Signs (Past 12 Hours) Vital Signs Temp Pulse Resp BP Pulse Ox O2 Del Method 03/31/25 12:18 75 18 120/79 90 Room Air 03/31/25 11:51 69 18 116/92 03/31/25 11:17 126/83 03/31/25 10:54 79 18 93 Room Air 03/31/25 10:36 72 15 99/74 L 92 Room Air 03/31/25 10:22 90 211/135 H 03/31/25 10:00 76 19 211/135 H 96 Room Air 03/31/25 09:50 70 20 96 Room Air 03/31/25 09:46 82 03/31/25 09:43 98.1 F 71 20 203/121 H 96 Room Air Laboratory Results Reviewed laboratories as discussed case with emergency room Code Status & VTE Plan VTE Prophylaxis Plan VTE Prophylaxis will be ordered: No PG Care Time/CCT Total # of Minutes Spent Total Time Spent with Patient: Total time spent is greater than 50% in coordination of care (as documented) at patient's floor/unit and/or counseling patient: Coding Level of Care Code 05337 INT INP/OBS CARE 3/75MIN Diagnoses Nausea & vomiting R11.2 Vomiting Intractability: intractable Vomiting type: unspecified Coronary artery disease involving [place] coronary artery of [place] heart without angina pectoris I25.10 Associated angina: without angina Coronary Disease-Associated Artery/Lesion type: [place] artery [place] vs. transplanted heart: [place] heart Cerebellar stroke I63.9 Pulmonary emphysema J43.9 (1) Nausea & vomiting Vomiting Intractability: intractable Vomiting type: unspecified Qualified Code(s): R11.2 - Nausea with vomiting, unspecified (2) CAD (coronary artery disease) Associated angina: without angina Coronary Disease-Associated Artery/Lesion type: [place] artery [place] vs. transplanted heart: [place] heart Qualified Code(s): I25.10 - Atherosclerotic heart disease of [place] coronary artery without angina pectoris
--- NOTE | 2025-03-31 14:20 | Nuclear Medicine Report ---
NUCLEAR MEDICINE HEPATOBILIARY SCAN CLINICAL HISTORY: Abdominal pain status post cholecystectomy. Evaluate for a bile leak. COMPARISON: CT of the abdomen and pelvis March 31, 2025. TECHNIQUE: 5.4 mCi of technetium 99m Choletec IV was injected at 12:50 PM on March 31, 2025. Immed iately following injection, imaging of the abdomen was carried out for 60 minutes in the anterior pro jection. FINDINGS: Hepatic uptake of radiotracer is prompt and homogeneous. Radiotracer is identified within t he common bile duct and small bowel at 15 minutes. No extraluminal radiotracer is identified to sugge st a bile leak. IMPRESSION: No scintigraphic evidence for a bile leak. ACT 112: Negative or not required by law. Electronically signed by: Flynn Shipley M.D. 03/31/2025 2:17 PM
[2025-03-31] MEDS ORDERED: METOPROLOL TARTRATE 1 MG/ML VIAL IV PRN (15:59)
[2025-03-31] MEDS ORDERED: ACETAMINOPHEN 1,000 MG/100 ML VIAL IV PRN (16:15)
[2025-03-31] MEDS: SODIUM CHLORIDE 0.9% 1,000 ML IV SCH (16:55)
[2025-03-31] MEDS: 4.5GM X1 IV STA (16:55)
[2025-03-31] MEDS: FAMOTIDINE 20MG IV PUSH 20 MG/5 ML SYR IV STA (16:55)
[2025-03-31] MEDS: ONDANSETRON INJ 2 MG/ML 2 ML VIAL IV PRN (19:21)
[2025-03-31] MEDS: MoRPHine SULFATE 2 MG/ML CARP IV PRN (19:22)
[2025-03-31] MEDS: levETIRAcetam 500 MG TAB PO SCH (21:56)
[2025-03-31] MEDS: VALSARTAN/SACUBITRIL 103/97MG TAB PO SCH (21:56)
[2025-03-31] MEDS: PIPERACILLIN/TAZOBACTAM 4.5 GM/100 ML BAG IV SCH (23:52)
[2025-04-01] MEDS: MoRPHine SULFATE 4 MG/ML 1 ML CARP\\VIAL IV PRN (00:05)
[2025-04-01 06:35] LABS: Hematocrit (blood only) 39.8 % (37.0-47.0); Hemoglobin 13.2 g/dl (12.0-16.0); Mean Corpuscular Hemoglobin 31.0 pg (25.0-34.0); Mean Corpuscular Volume 93.4 fL (80.0-100.0); Platelet Count 288 K/uL (130-400); RDW Standard Deviation 42.2 fL (36.4-46.3); Red Blood Count 4.26 M/uL (4.20-5.40); White Blood Count 10.15 K/ul (4.8-10.8)
--- NOTE | 2025-04-01 06:42 | Electrocardiogram Report ---
Test Reason : Blood Pressure : */* mmHG Vent. Rate : 69 BPM Atrial Rate : 69 BPM P-R Int : 186 ms QRS Dur : 84 ms QT Int : 424 ms P-R-T Axes : 54 -14 58 degrees QTcB Int : 454 ms Normal sinus rhythm with sinus arrhythmia Normal ECG When compared with ECG of 18-Mar-2025 02:19, No significant change was found Confirmed by Quinten Sanchez ([id number]) on 04/01/2025 6:42:07 AM Referred By: REFERRED SELF Confirmed By: Quinten Sanchez
[2025-04-01 07:01] LABS: Alanine Aminotransferase 9.0 U/L (7-52); Albumin Globulin Ratio 1.2 (0.9-2); Alkaline Phosphatase 61.0 U/L (34-104); Anion Gap 6.0 (3-11); Bilirubin,Total 0.3 mg/dl (0.2-1.0); Blood Urea Nitrogen 13.0 mg/dl (6-23); Calcium 9.0 mg/dl (8.6-10.3); Carbon Dioxide 25.0 mmol/L (21-32); Chloride 110.0 mmol/L (98-107); Creatinine Clr Calc Pharmacy 74.3 ml/min; Globulin 2.9 gm/dl (2.5-4.0); Glucose 107.0 mg/dl (70-99(Fasting)); Magnesium 1.9 mg/dl (1.7-2.4); Potassium 3.6 mmol/L (3.5-5.1); Sodium 141.0 mmol/L (136-145); Total Protein 6.5 gm/dl (6.0-8.3)
--- NOTE | 2025-04-01 08:16 | Hospitalist Progress Note ---
Date of Service April 01, 2025 Assessment & Plan Admission and Anticipated Discharge Date Admission Date: March 31, 2025 Results & Data Results & Data Vital Signs (Past 12 Hours) Vital Signs Temp Pulse Pulse Resp BP BP Pulse Ox 04/01/25 07:25 37.1 C 63 16 104/69 91 04/01/25 03:33 36.7 C 78 16 132/66 97 03/31/25 23:29 36.6 C 78 16 130/66 95 03/31/25 21:30 03/31/25 21:08 37.0 C 87 17 136/97 94 03/31/25 20:50 79 03/31/25 20:28 80 16 124/91 95 O2 Del Method 04/01/25 07:25 Room Air 04/01/25 03:33 Room Air 03/31/25 23:29 Room Air 03/31/25 21:30 Room Air 03/31/25 21:08 Room Air 03/31/25 20:50 03/31/25 20:28 Room Air PG Care Time/CCT Total # of Minutes Spent Total Time Spent with Patient: Total time spent is greater than 50% in coordination of care (as documented) at patient's floor/unit and/or counseling patient: Coding
[2025-04-01] MEDS: VENLAFAXINE HCL XR 75 MG CAPXR PO SCH (08:33)
[2025-04-01] MEDS: VENLAFAXINE HCL XR 150 MG CAPXR PO SCH (08:34)
--- NOTE | 2025-04-01 09:44 | Surgery Progress Note ---
Date of Service April 01, 2025 Assessment & Plan (1) S/P cholecystectomy: Plan: pt s/p outpatient lap dewey on 03/17 here w/ RUQ pain/n/v/diarrhea CT showed 2.8cm ?collection in the GB fossa, it could be related to surgicell placed intraop which can cause this appearance on imaging and some hematoma HIDA scan performed yesterday was negative for bile leak labs this AM show WBC 10 (13), LFTs are unremarkable IR reviewed patients imaging and collection not amenable to any drainage She is feeling better, we are okay with initiating a diet and seeing how she fairs. if does well can possibly d/c later today Can consider a small course of oral abx for collection in the GB fossa for home Otherwise no surgical issues that require intervention, we will follow peripherally but call with any questions/concerns [facility] covering wknd if remains in house and need assistance Admission and Anticipated Discharge Date Admission Date: March 31, 2025 Subjective Patient denies any pain/nausea/vomiting this AM. Feels better than admission Physical Exam Physical Exam: awake/alert, no distress Gastrointestinal (Abdomen): Percussion/Palpation: + abdomen tender (mild discomfort RUQ) and abdomen soft Results & Data Vital Signs (Past 12 Hours) Vital Signs Temp Pulse Resp BP Pulse Ox O2 Del Method 04/01/25 07:25 98.8 F 63 16 104/69 91 Room Air 04/01/25 03:33 98.1 F 78 16 132/66 97 Room Air 03/31/25 23:29 97.9 F 78 16 130/66 95 Room Air PG Care Time/CCT Total # of Minutes Spent Total Time Spent with Patient: Total time spent is greater than 50% in coordination of care (as documented) at patient's floor/unit and/or counseling patient: Coding Level of Care Code 88902 Post Operative Follow-Up Diagnoses S/P cholecystectomy Z90.49
[2025-04-01 12:33] VITALS: BP 120/80; PULSE 64; RESP 17; TEMP 98.1; O2SAT 93
--- NOTE | 2025-04-01 20:14 | Discharge Summary ---
Discharge Summary Date of Service April 01, 2025 Principal Dx & Hospital Course #1 = Principal Diagnosis (1) Vomiting and diarrhea: (2) S/P cholecystectomy: Plan Ms. Velasquez is a 60-year-old female whose active medical conditions include hypertension, hyperlipidemia, cyclic vomiting syndrome, obstructive sleep apnea, type 2 diabetes mellitus and multiple complications including peripheral arterial disease among other chronic medical conditions who was recently admitted to [facility] for acute cholecystitis requiring laparoscopic cholecystectomy that was uncomplicated and she was subsequently discharged. She was admitted due to persistent nausea, vomiting that was nonbilious and nonbloody and inability to tolerate oral intake. Suspect this is likely associated with gastrointestinal changes in the post operative period, and her diarrhea is likely consequential of increased biliary flow after removal of her gallbladder. There is found to be a small fluid collection in the gallbladder fossa suspected to be either a seroma or blioma; additionally it was noted that Surgicel was placed in this area near the end of the patient's surgery and thus with the closed temporal proximity to its placement, this may have been captured on imaging. There was noted to be a small solitary air bubble in this lesion as well, this is most likely a consequence of the surgical nature of her procedure. It was proposed that there was a possibility of a early abscess formation however without the peripheral enhancing lesions typically seen, the lack of any constitutional or serologic testing with evidence of infection, the patient's rapid improvement clinically with only a single dose of antibiotics within 24 hours, this is unlikely to be the case. Interventional radiology was asked to evaluate the patient for possible percutaneous aspiration to determine the nature of this lesion, but this lesion size is not amenable to percutaneous aspiration. The patient was comfortable with discharge after tolerating oral intake throughout the morning and early afternoon with no subsequent episodes of abdominal pain, emesis, hematemesis, bilious emesis, diarrhea, abdominal distention or other concerning changes. Admission HPI Per Admitting Provider 60-year-old female presents with 8 hours of abdominal pain nausea and vomiting. Patient had a laparoscopic cholecystectomy with intraoperative cholangiogram on 03/17/[address] Gus Campos. Patient suffers from multiple medical issues including coronary artery disease hypertension previous Takotsubo's cardiomyopathy renal artery stenosis obstructive sleep apnea previous CVA tobacco abuse COPD and glucose intolerance. Imaging shows some fluid in the gallbladder fossa, surgical consultation recommends admission antibiotic and HIDA scan to rule out bile leak. Patient did have significant elevation of her bilirubin consistent with bile leak. These on admission are normal including alkaline phosphatase and total bilirubin Discharge Exam General: Adult female in no acute distress Vital Signs: Reviewed HEENT: Pupils equally round reactive to light; extraocular motions intact; moist mucous membranes Pulmonary: Symmetric chest wall rise without restriction, comfortable respiration Cardiovascular: Regular rate and rhythm with bilateral radial pulse 2+; no notable lower extremity edema Gastrointestinal: Soft, nontender; appropriate frequency and pitch of bowel sounds throughout all 4 quadrants; laparoscopic surgical sites appear to be healing well without any complication Discharge Plan Discharge Items Patient Disposition: Home - Self-Care Reason For Visit: POST CHOLECYSTECTOMY PAIN Discharge Diagnosis: Post-operative seroma/bilioma Condition on Discharge: Fair Activity: Per Instructions section Bathing Comment: may shower Exercise/Sports: Gradually increase as tolerated Non-emergency contact: Primary Care Provider and Surgeon Call non-emergency contact if: your pain is worsening, you have a fever, your temperature is above 101.5, your wound has increased redness, your wound has increased drainage and your wound pain has increased Follow-up/Referrals: Jerod Stewart MD, FACS [Surgeon] - (may follow up in 3-4 weeks) Teena Killian, [Primary Care Provider] - 04/11/25 9:20 am Diet: Carb Consistent or DM2 and Low Fat Addtl Attending Provider Instructions: You were admitted to [facility] for persistent right upper quadrant abdominal pain with uncontrolled nausea and vomiting without associated hematemesis or bilious emesis. Further diagnostic testing did reveal a seroma versus bili Sonia of the hepatic fossa. Additionally, this could be Surgicel that was placed during your operation, this can sometimes be seen in the short-term with imaging after surgery. There is noted to be a small amount of air within this lesion, this is most likely consequential of the surgical procedure itself rather than a gas producing organism which be more consistent with an abscess; given the lack of peripheral enhancement around the lesion, lack of additional infectious/constitutional findings with your physical exam, review of systems, and laboratory assessment it is unlikely that this is a bacterial/infectious etiology. Medications can be continued from previous hospitalization in order to assist with oral intake. Thank you for choosing [facility] as your healthcare provider. Pending Studies at Discharge: No Stand-Alone Forms: My [facility] Medications and DC Order Prescriptions: Continued (DME) blood-glucose meter [FreeStyle Lite Meter] Kit See Rx Instructions .Route Qty: 1 0RF Rx Instructions: Check blood glucose once per day (DME) FreeStyle Lite Strips Strip See Rx Instructions .Route Qty: 100 0RF Rx Instructions: Use with meter to check BG once per day (DME) lancets Misc See Rx Instructions .Route Qty: 100 0RF Rx Instructions: use with meter to heck BG once per day Eliquis 5 mg tablet 5 mg PO BID Qty: 180 1RF Hold Instructions: Resume on 03/22/25. levetiracetam [Keppra] 1,000 mg tablet 1,000 mg PO BID Qty: 180 3RF amitriptyline 25 mg tablet 25 mg PO HS Qty: 90 1RF clopidogrel [Plavix] 75 mg tablet 75 mg PO HS Qty: 90 1RF Hold Instructions: Resume on 03/22/25. Patient Comments: PER DR PERSON OFFICE, TOLD TO STOP 7 DAYS BEFORE PROCEDURE nitroglycerin 0.4 mg tablet, sublingual 0.4 mg sublingual UD PRN (Reason: Chest Pain) rosuvastatin [Crestor] 40 mg tablet 40 mg PO HS Qty: 90 3RF pantoprazole [Protonix] 40 mg tablet,delayed release (DR/EC) 40 mg PO QAM carvedilol 25 mg tablet 25 mg PO BID Qty: 60 2RF Rx Instructions: must administer with a meal/food Entresto 97-103 mg tablet 1 tab PO BID Qty: 60 2RF cholecalciferol (vitamin D3) [Vitamin D3] 125 mcg (5,000 unit) Tablet 125 mcg PO DAILY potassium chloride 20 mEq tablet extended release 20 meq PO QAM Zostrix 0.033 % Cream 1 applic EXT DAILY PRN (Reason: nausea, abdominal pain) Qty: 0 0RF Rx Instructions: buy over the counter ondansetron 4 mg tablet,disintegrating 4 mg PO Q6H PRN (Reason: nausea and vomiting) Qty: 30 0RF venlafaxine 75 mg capsule,extended release 24hr 75 mg PO QAM Rx Instructions: Take along with 150 mg tab for total of 225 mg daily venlafaxine 150 mg capsule,extended release 24hr 150 mg PO QAM Rx Instructions: Take 150 mg for one week before adding 75 mg capsule for total of 225 mg daily. ezetimibe 10 mg Tablet 10 mg PO QAM Discontinued quetiapine [Seroquel] 25 mg tablet 25 mg PO Q8H PRN (Reason: nausea and vomiting) Discharge Orders: Discharge Order (Routine); Ordered 04/01/25 Ordered By: Rohit Andrews Admission Data Admit Date/Time: 03/31/25 13:25 Attending Provider: Rohit Andrews Admit Provider: Armando Cedeno Primary Care Provider: Teena Killian Other Providers: Franck Hager Other Interventions: Discharge Summary Assessment (RN) Last Done: 04/01/25 13:59 Hospital Stay Data Consultations 03/31/25 12:31 ED Decision to Admit Stat Diagnostic Imagining Performed 03/31/25 09:52 CT Abd and Pelvis [CT abd pelvis IV con only] Stat Pending Results Patient Have Any Pending Studies at Discharge: No Discharge Instructions Given to Patient (Per Discharging Provider) You were admitted to [facility] for persistent right upper quadrant abdominal pain with uncontrolled nausea and vomiting without associated hematemesis or bilious emesis. Further diagnostic testing did reveal a seroma versus bili Sonia of the hepatic fossa. Additionally, this could be Surgicel that was placed during your operation, this can sometimes be seen in the short-term with imaging after surgery. There is noted to be a small amount of air within this lesion, this is most likely consequential of the surgical procedure itself rather than a gas producing organism which be more consistent with an abscess; given the lack of peripheral enhancement around the lesion, lack of additional infectious/constitutional findings with your physical exam, review of systems, and laboratory assessment it is unlikely that this is a bacterial/infectious etiology. Medications can be continued from previous hospitalization in order to assist with oral intake. Thank you for choosing [facility] as your healthcare provider. Total Time Total Time Spent Total Time Spent (In Minutes): I personally spent 45 minutes in today's discharge including review of the patient's chart, review of their surgical procedure, physical exam and discussion of the patient's clinical course at bedside including reasoning behind why this is not likely infectious. Coding Level of Care Code INP/OBS EV SAME DAY LV 1,45MIN Diagnoses Vomiting and diarrhea R11.10; R19.7 S/P cholecystectomy Z90.49
== END 2025-04-01 14:54 | disposition home or self-care (01) ==
LOC: ED 09:36 → EDINP 13:25 → SUATTDRO 13:25 → INTOOBSV 13:25 → 4W 20:28